=== PATIENT | female | born 1980 | race Caucasian/White ===

== ENCOUNTER 2017-06-10 10:04 | Emergency (ER) | payer MEDICAID, SELFPAY ==
[2017-06-10 10:05] VITALS: BP 164/110; PULSE 96; RESP 17; TEMP 36.7; O2SAT 100; BMI 43.9
--- NOTE | 2017-06-10 10:26 | RAD_ITS ---
STUDY: X-RAY CHEST REASON FOR EXAM: Female, 37 years old. Anxiety. Chest pain and shortness of breath. TECHNIQUE: Single AP portable view of the chest. COMPARISON: None. FINDINGS: EKG electrodes are seen. The lungs are clear and expanded. Scattered calcified granulomas. There is no demonstrated pleural abnormality. Normal size heart. Normal mediastinum and keshia. Normal visualized pulmonary arteries. Normal visualized aortic arch and descending thoracic aorta. Normal visualized thoracic spine. Normal visualized ribs, clavicles, and shoulders. There is no demonstrated abnormality of the visualized soft tissue structures of the upper abdomen. RAD/Chest 1 View (Portable) IMPRESSION: Normal x-ray examination of the chest. Electronically Signed: Siva Jacobs MD at 11:28 EST Tel [phone], Service support ,
--- NOTE | 2017-06-10 10:26 | EKG12_ITS ---
Test Reason : CP Blood Pressure : / mmHG Vent. Rate : 085 BPM Atrial Rate : 085 BPM P-R Int : 136 ms QRS Dur : 084 ms QT Int : 368 ms P-R-T Axes : 024 031 042 degrees QTc Int : 437 ms Normal sinus rhythm Normal ECG Confirmed by VIVI GARZA, TIMOTHY ([id number]), editor managing newspaper LILI ARRIAGA ([id number]) on 06/12/2017 10:14:55 AM Referred By: JAYME Confirmed By:TIMOTHY TRINIDAD MD
[2017-06-10] MEDS: Aspirin 81 MG TAB.CHEW 324 MG PO (10:44)
--- NOTE | 2017-06-10 10:45 | ED.VISSUMM ---
- ER Visit Summary Date of Service: 06/10/17 Chief Complaint: Chest pain for 4 days History of Present Illness: The patient is a 37 F history of cardiac disease or prior stress test or heart cath. No history of DVT or PE or recent risk factors. No travel, surgery or immobilization. It is not pleuritic in nature. No hemoptysis. She is not on control pills. No leg swelling. Patient states that she has had chest pain basically constant for the last 4 days since Thursday evening. It is not associated with exertion. She has had symptoms in the past that were associated with anxiety but states she took her Ativan and he gave her no relief. She also took Tums and I gave her no relief also. She denies fever or significant cough. She denies any calf pain. Physical Examination: Well-appearing young female. Vital signs are stable afebrile. Her pulse ox is 100% on room air. No signs of hypoxia. H EENT exam is unremarkable. Neck nontender no JVD. Lungs clear to auscultation bilaterally. Chest wall nontender. Heart regular rate and rhythm no murmur. Abdomen soft nontender. Normal bowel sounds. No peritoneal signs. She is moving all 4 extremities. Equal radial pulses. Equal food and beverage checker strength. Dorsi plantar flexion intact. Calves are nontender without edema. Neurologically she is awake and alert without any focal deficits. Test Results: Portable chest x-ray showed no acute abnormality. Normal cardiac silhouette. Read both by myself and the radiologist. I did go over the x-ray with the patient. EKG is a sinus rhythm a rate of 85 with no acute signs of CA or ischemia. CBC normal. BMP normal. Troponin normal. Emergency Department Course and Treatment: Patient with atypical chest pain will undergo cardiac workup. Clinically it does not appear to be cardiac nor a DVT or PE. Treatment Plan: exam the patient is doing well at 1404. In light that her chest pain has been constant for 4 days her troponin is negative I am comfortable with her being discharged home. Disposition: Discharge Impression: Atypical chest pain of uncertain etiology This note was generated with [employer] software. It may contain incorrect words, spelling, and punctuation that were not noted in review of the chart prior to signing ED Disposition - Plan for ED Patient: Chief Complaint: Chest Pain Referrals: Jose Luis Toledo DO [Primary Care Provider] -
--- NOTE | 2017-06-10 10:48 | ED.DCSUM_ITS ---
- ER Visit Summary Date of Service: 06/10/17 Chief Complaint: Chest pain for 4 days History of Present Illness: The patient is a 37 F history of cardiac disease or prior stress test or heart cath. No history of DVT or PE or recent risk factors. No travel, surgery or immobilization. It is not pleuritic in nature. No hemoptysis. She is not on control pills. No leg swelling. Patient states that she has had chest pain basically constant for the last 4 days since Thursday evening. It is not associated with exertion. She has had symptoms in the past that were associated with anxiety but states she took her Ativan and he gave her no relief. She also took Tums and I gave her no relief also. She denies fever or significant cough. She denies any calf pain. Physical Examination: Well-appearing young female. Vital signs are stable afebrile. Her pulse ox is 100% on room air. No signs of hypoxia. H EENT exam is unremarkable. Neck nontender no JVD. Lungs clear to auscultation bilaterally. Chest wall nontender. Heart regular rate and rhythm no murmur. Abdomen soft nontender. Normal bowel sounds. No peritoneal signs. She is moving all 4 extremities. Equal radial pulses. Equal brand analyst strength. Dorsi plantar flexion intact. Calves are nontender without edema. Neurologically she is awake and alert without any focal deficits. Test Results: Portable chest x-ray showed no acute abnormality. Normal cardiac silhouette. Read both by myself and the radiologist. I did go over the x-ray with the patient. EKG is a sinus rhythm a rate of 85 with no acute signs of DE or ischemia. CBC normal. BMP normal. Troponin normal. Emergency Department Course and Treatment: Patient with atypical chest pain will undergo cardiac workup. Clinically it does not appear to be cardiac nor a DVT or PE. Treatment Plan: exam the patient is doing well at 1404. In light that her chest pain has been constant for 4 days her troponin is negative I am comfortable with her being discharged home. Disposition: Discharge Impression: Atypical chest pain of uncertain etiology This note was generated with [employer] software. It may contain incorrect words, spelling, and punctuation that were not noted in review of the chart prior to signing ED Disposition - Plan for ED Patient: Chief Complaint: Chest Pain Referrals: Jose Luis Toledo DO [Primary Care Provider] -
[2017-06-10 11:07] VITALS: BP 115/58; PULSE 73; RESP 17; O2SAT 99
[2017-06-10 11:15] LABS: Absolute Lymphocyte Count 2.63 X10^3/ul (0.83-4.51); Absolute Neutrophil Count 6.4 X10^3/uL (2.0-7.7); Basophil# 0.05 X10^3/uL; Basophil% 0.5 % (0-1); Eosinophil# 0.13 X10^3/uL; Eosinophils% 1.3 % (0-5); Hematocrit 40.2 % (37-47); Hemoglobin 13.3 g/dl (12.0-15.0); Lymphocyte # 2.63 X10^3/ul (4.0); Lymphocyte % 27.1 % (19-41); Mean Corp Hgb Conc 33.1 g/gl (32-36); Mean Corpuscular Hgb 30.2 pg (27.0-32.0); Mean Corpuscular Volume 91.4 fL (81-99); Mean Platelet Vol. 9.8 fl (6.2-12.0); Monocyte# 0.45 X10^3/uL; Monocyte% 4.6 % (0-10); Neutrophil % 66.2 % (47-70); POSITIVE COUNT NO; POSITIVE DIFFERENTIAL NO; POSITIVE MORPHOLOGY NO; Platelet Count 238 K/mm3 (150-450); RBC Distribution Width CV 13.5 % (11.6-14.6); RBC Distribution Width SD 44.5 fl (35.1-43.9); White Blood Count 9.7 K/mm3 (4.4-11.0)
[2017-06-10 12:13] LABS: Anion Gap 12 (5-15); BUN 12 mg/dL (7-18); BUN/Creat Ratio 16.6 RATIO (10-20); Calcium,Total 8.5 mg/dL (8.5-10.1); Chloride 108 mmol/L (98-107); Creatinine, Serum 0.72 mg/dL (0.55-1.02); EST Glomerular Filtration Rate 96 mL/min (>60); Est Glom Filt Rate - Afr Amer 116 mL/min (>60); Estimated Creatinine Clearance 76.84 ml/min; Glucose 88 mg/dL (74-106); Potassium 3.8 mmol/L (3.5-5.1); Sodium Level 142 mmol/L (136-145)
[2017-06-10 13:00] VITALS: BP 128/76; PULSE 71; RESP 15; O2SAT 98
[2017-06-10 14:00] VITALS: BP 127/74; PULSE 81; RESP 16; O2SAT 97
--- NOTE | 2017-06-10 14:06 | ED.DEP ---
ED Disposition - Plan for ED Patient: Disposition: Home or Assisted Living Chief Complaint: Chest Pain Instructions: ED Chest Pain Atypical Unkn Cause Referrals: Jose Luis Toledo DO [Primary Care Provider] - 3-5 Days Additional Instructions: Call and follow-up your primary care physician. Return to ER if feeling worse. All your tests today including EKG, x-ray and labs were all normal.
== END 2017-06-10 14:19 | disposition home or self-care (01) ==
PROVIDERS: Emergency Provider Emergency Medicine; Family Provider Student in an Organized Health Care Education/Training Program; PCP Student in an Organized Health Care Education/Training Program
DX: R07.89 Other chest pain (principal); R06.00 Dyspnea, unspecified; F41.9 Anxiety disorder, unspecified; E11.9 Type 2 diabetes mellitus without complications; E03.9 Hypothyroidism, unspecified; Z86.79 Personal history of other diseases of the circulatory system; Z79.899 Other long term (current) drug therapy
CPT/HCPCS: 71045; 80048; 84484; 85025; 93005; 99285; A4216

== ENCOUNTER 2017-07-16 12:05 | Emergency (ER) | payer MEDICAID, SELFPAY ==
[2017-07-16 12:06] VITALS: BP 154/92; PULSE 90; RESP 20; TEMP 36.4; O2SAT 98; BMI 43.0
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
[2017-07-16] MEDS: HYDROcodone Bitartrate/Apap 5/325 Tablet PO (13:34)
[2017-07-16 13:38] VITALS: PULSE 97; RESP 17; O2SAT 98
== END 2017-07-16 14:06 | disposition home or self-care (01) ==
PROVIDERS: Emergency Provider Emergency Medicine; Family Provider Student in an Organized Health Care Education/Training Program; PCP Student in an Organized Health Care Education/Training Program
DX: T23.001A Burn of unspecified degree of right hand, unspecified site, initial encounter (principal); X08.8XXA Exposure to other specified smoke, fire and flames, initial encounter; Y93.9 Activity, unspecified; Y92.9 Unspecified place or not applicable; G43.909 Migraine, unspecified, not intractable, without status migrainosus; Z79.899 Other long term (current) drug therapy
CPT/HCPCS: 90715; 99283

== ENCOUNTER → 2017-07-27 16:35 | Outpatient (CLI) | payer MEDICAID, SELFPAY ==
--- NOTE | 2017-07-27 16:46 | CT_ITS ---
STUDY: CTA NECK WITH CONTRAST REASON FOR EXAM: Female, 37 years old. Follow-up of anterior communicating artery ectasia. RADIATION DOSAGE (If Supplied By Facility): CTDIvol = ( 28.68 ) mGy, DLP = ( 1416.62 ) mGycm TECHNIQUE: CT angiography with multi-detector data acquisition was performed from the aortic arch to the skull base following intravenous administration of 100 ml of Isovue 370 contrast. MIP images were reconstructed from the axial data set. Post-processing of the angiographic images was performed, with multiplanar reformation and 3D reconstruction. Individualized dose optimization techniques were used for this CT. COMPARISON: None. FINDINGS: AORTIC ARCH: Normal visualized aortic arch. Normal origins of the brachiocephalic, left common carotid, and left subclavian arteries. RIGHT CAROTID ARTERIES: Normal right common carotid artery (CCA). Normal right common carotid bulb. Normal origin of the right internal carotid (ICA) artery without a hemodynamically significant stenosis. Normal visualized cervical portion of the right internal carotid artery. Normal origin of the right external carotid artery (ECA). LEFT CAROTID ARTERIES: Normal left common carotid artery (CCA). Normal left common carotid bulb. Normal origin of the left internal carotid (ICA) artery without a hemodynamically significant stenosis. Normal visualized cervical portion of the left internal carotid artery. Normal origin of the left external carotid artery (ECA). VERTEBRAL ARTERIES: Normal bilateral vertebral arteries. CTA OF THE BRAIN FINDINGS: Normal bilateral petrous carotid arteries. Normal right cavernous carotid artery with a normal supraclinoid bifurcation. Normal left cavernous carotid artery with a normal supraclinoid bifurcation. Normal right A1 segment of the anterior cerebral artery. Normal left A1 segment of the anterior cerebral artery. 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 Normal bilateral A2 segments of the anterior cerebral arteries. Normal right M1 and M2 segments of the middle cerebral arteries, with a normal M1 bifurcation. Normal left M1 and M2 segments of the middle cerebral arteries, with a normal M1 bifurcation. Normal right posterior communicating artery (PCOM). Normal left posterior communicating artery (PCOM). Normal bilateral vertebral arteries. Normal basilar artery with a normal basilar bifurcation. The visualized bilateral superior cerebellar (SCA) arteries are normal. Normal bilateral P1, P2 and visualized P3 segments of the posterior cerebral arteries. There is no evidence of acute hemorrhage. There is no demonstrated enhancement of the visualized brain. CT/CTA Neck W/WO Contrast IMPRESSION: There is no evidence of hemorrhage. There is no abnormal enhancement. There is stable appearance of mild fullness and duplication of the anterior communicating artery. Electronically Signed: Hanna South MD at 7:14 EDT Tel , Service support ,
--- NOTE | 2017-07-27 16:46 | CT_ITS ---
STUDY: CTA OF THE BRAIN REASON FOR EXAM: Female, 37 years old. Aneurysm for follow-up. History of headaches. RADIATION DOSAGE (If Supplied By Facility): CTDIvol = ( 28.68 ) mGy, DLP = ( 1416.62 ) mGycm TECHNIQUE: CT angiography was performed with a multi-detector CT scanner. Data acquisition was obtained from the skull base through the vertex following intravenous administration of 100 ml of Isovue-370. MIP images were reconstructed from the axial data set. Post-processing of the angiographic images was performed, with multiplanar reformation and 3D reconstruction. Individualized dose optimization techniques were used for this CT. COMPARISON: Images of study from December 10, 2016 and limited images and report of study from May 04, 2016. FINDINGS: Normal bilateral petrous carotid arteries. Normal right cavernous carotid artery with a normal supraclinoid bifurcation. Normal left cavernous carotid artery with a normal supraclinoid bifurcation. Normal right A1 segments of the anterior cerebral artery. Normal left A1 segments of the anterior cerebral artery. Normal intact anterior communicating artery (ACOM). There is no aneurysm involving the anterior communicating artery. Normal bilateral A2 segments of the anterior cerebral arteries. Normal right M1 and M2 segments of the middle cerebral arteries, with a normal M1 bifurcation. Normal left M1 and M2 segments of the middle cerebral arteries, with a normal M1 bifurcation. Normal right posterior communicating artery (PCOM). Normal left posterior communicating artery (PCOM). Normal bilateral vertebral arteries. Vertebral arteries are codominant. Normal basilar artery with a normal basilar bifurcation. The visualized bilateral superior cerebellar (SCA) arteries are normal. Normal bilateral P1, P2 and visualized P3 segments of the posterior cerebral arteries. There is no demonstrated aneurysm of the [place] of [place]. There is no demonstrated abnormality of the visualized brain. CT/CTA Head W/WO Contrast IMPRESSION: Normal ruby of [place] without a demonstrated aneurysm or hemodynamically significant stenosis. No aneurysm involving the anterior communicating artery. Electronically Signed: Vincent Chapa MD at 8:00 EDT , Service support ,
== END ==
PROVIDERS: Family Provider Student in an Organized Health Care Education/Training Program; PCP Student in an Organized Health Care Education/Training Program; Visit Provider Psychiatry & Neurology Neurology
DX: I72.8 Aneurysm of other specified arteries (principal)
CPT/HCPCS: 70496; 70498; Q9967

== ENCOUNTER → 2018-04-12 11:36 | Outpatient (CLI) | payer MEDICAID, SELFPAY ==
--- NOTE | 2018-04-12 11:42 | BI_ITS ---
MAMMOGRAPHY - BILATERAL SCREENING REASON FOR EXAM: Female, 38 years old. Routine annual screening examination. PERTINENT HISTORY: Mother with breast cancer. TECHNIQUE: Digital bilateral breast maih (3D mammographic acquisition) in the CC and MLO projections. 2-D mediolateral oblique (MLO) and craniocaudad (CC) views of both breasts were obtained. CAD: Full Field Digital Mammography with Computer Added Detection was performed. COMPARISON: Comparison is made with prior study dated April 04, 2013 and June 03, 2011. FINDINGS: Breast Composition: There are scattered areas of fibroglandular density. There are no dominant masses or suspicious calcifications. Stable asymmetry of breast tissue or more breast tissue is seen in the upper quadrant of the left breast as compared to the right side. No other significant abnormalities are identified. There has been no significant change since the prior study. BI/SCREENING MAMM (CAD), BILAT IMPRESSION: Stable bilateral screening mammogram. Yearly follow-up mammogram recommended. (A) ASSESSMENT CATEGORY: BIRADS Category 2: Benign. A letter regarding these results will be sent to the patient by the facility within 30 days. Approximately 10% of breast cancers are not detected by mammography. A normal mammogram should not delay biopsy of a clinically suspicious abnormality. [id number] Electronically Signed: Siva Jacobs MD at 13:57 EST Tel [phone], Service support ,
--- OUTSIDE RECORDS SUMMARY | 2018-07-15 01:51 | XMS RPT_ITS ---
:1980 Author Organization [place] Care Team Providers Name Role Phone JOSE LUIS ROMAN Attending Unavailable JOSE LUIS ROMAN Referring Unavailable JOSE LUIS ROMAN Referring Unavailable JOSE LUIS ROMAN Attending Unavailable JOSE LUIS ROMAN Referring Unavailable JOSE LUIS ROMAN Referring Unavailable JOSE LUIS ROMAN Attending Unavailable JOSE LUIS ROMAN Attending Unavailable JOSE LUIS ROMAN Referring Unavailable SONJA, JANIS L ([facility]) Attending Unavailable JOSE LUIS ROMAN L Referring Unavailable SONJA, JANIS L ([facility]) Attending Unavailable SONJA JANIS L ([facility]) Referring Unavailable SONJA, JANIS L ([facility]) Referring Unavailable JOSE LUIS ROMAN L Attending Unavailable JOSE LUIS ROMAN Referring Unavailable JOSE LUIS ROMAN Attending Unavailable JOSE LUIS ROMAN Referring Unavailable CATHLEEN MEZA Attending Unavailable REFERRED, SELF Referring Unavailable JOSE LUIS ROMAN Primary Care Unavailable BILL MARIA Attending Unavailable BILL MARIA Referring Unavailable JOSE LUIS ROMAN Primary Care Unavailable JOAN GUSMAN Attending Unavailable Jose Luis Roman Primary Care Unavailable JOAN GUSMAN Consulting Unavailable Jose Luis Roman Primary Care Unavailable Alfredo Matias Attending Unavailable Rola Cuellar Attending Unavailable Rola Cuellar Referring Unavailable Jose Luis Roman Primary Care Unavailable Jose Luis Roman Primary Care Unavailable Carola Ocasio Attending Unavailable PROBLEMS PROBLEMS DATE TYPE CONDITION / CODE ATTENDING STATUS SOURCE 04/28/2018 Active Other specified NA Active [facility] immunological [place] findings in serum / Repository R76.8(ICD-10) 10/21/2016 Active Cerebral aneurysm, NA Active [facility] nonruptured / [facility] Main I67.1(ICD-10) [place] Repository 03/24/2018 Active Dizziness and NA Active [facility] giddiness / [facility] Main R42(ICD-10) [place] Repository 03/24/2018 Active Other symptoms and NA Active [facility] signs involving the [facility] Main musculoskeletal [place] system / Repository R29.898(ICD-10) 03/24/2018 Active Pain in unspecified NA Active [facility] joint / [facility] M25.50(ICD-10) [place] Repository 03/24/2018 Active Vitamin D deficiency, NA Active [facility] unspecified / [facility] E55.9(ICD-10) [place] Repository 12/24/2017 Active Nontoxic single NA Active [facility] thyroid nodule / [facility] E04.1(ICD-10) [place] Repository 12/22/2017 Active Pain in left foot / NA Active [facility] M79.672(ICD-10) [facility] Main [place] Repository 09/15/2017 Active Lumbago with NA Active [facility] sciatica, left side / Clinic Main M54.42(ICD-10) [place] Repository 09/15/2017 Active Lumbago with NA Active [facility] sciatica, right side Clinic Main / M54.41(ICD-10) [place] Repository 10/21/2016 Active Myalgia / NA Active [facility] M79.1(ICD-10) Clinic Main [place] Repository 09/08/2017 Active Hypothyroidism, NA Active [facility] unspecified / [facility] E03.9(ICD-10) [place] Repository 09/08/2017 Active Shortness of breath / NA Active [facility] R06.02(ICD-10) [facility] Main [place] Repository 07/16/2017 Unknown R52 - Pain, Jwayyed, Active [facility] unspecified / [facility] R52(ICD-10) Hospital Repository 06/25/2017 Unknown R07.9 - Chest pain, MatiasAlfredo Active [facility] unspecified / [facility] R07.9(ICD-10) Hospital Repository PROCEDURES PROCEDURES No Procedure Records FoundRESULTS RESULTS C-REACTIVE PROTEIN Collected: 04/28/2018 Status: F Source: [place] 9:31 AM [facility] REPOSITORY TYPE CODE TESTS RESULT OUT OF REFERENCE UNITS RANGE LAB CRP <0.9 mg/dL C-Reactive 0.7 Protein Performed By: #### CRP, WSR, ENAID, ANAIFS #### [facility] [address] [address] SED RATE WESTERGREN Collected: 04/28/2018 Status: F Source: [place] 9:31 AM [facility] REPOSITORY TYPE CODE TESTS RESULT OUT OF REFERENCE UNITS RANGE LAB WSR 0-20 mm/hr Sed Rate Westergren 18 Performed By: #### CRP, WSR, ENAID, ANAIFS #### [facility] [address] [address] OCTAVIANO ANTIBODY PANEL Collected: 04/28/2018 Status: F Source: [place] 9:31 AM [facility] REPOSITORY TYPE CODE TESTS RESULT OUT OF REFERENCE UNITS RANGE LAB SMIB <1.0 AI Sm Antibody <0.2 Result Comment: NEGATIVE Negative: <1.0 AI Positive: >0.9 AI LAB RNPIB <1.0 AI WOOD HEEL FLAP INSERTER Antibody <0.2 Result Comment: NEGATIVE Negative: <1.0 AI Positive: >0.9 AI LAB SSAIB <1.0 AI SSA Antibody <0.2 Result Comment: NEGATIVE Negative: <1.0 AI Positive: >0.9 AI LAB SSBIB <1.0 AI SSB Antibody <0.2 Result Comment: NEGATIVE Negative: <1.0 AI Positive: >0.9 AI LAB CENTIB <1.0 AI Centromere <0.2 Result Comment: NEGATIVE Negative: <1.0 AI Positive: >0.9 AI LAB SCLIB <1.0 AI Scleroderma IgG Ab <0.2 Result Comment: NEGATIVE Negative: <1.0 AI Positive: >0.9 AI LAB JO1IB <1.0 AI TEMI 1 Antibody <0.2 Result Comment: NEGATIVE Negative: <1.0 AI Positive: >0.9 AI LAB RRNPIB <1.0 AI Ribosomal WOOD HEEL FLAP INSERTER <0.2 Result Comment: NEGATIVE Negative: <1.0 AI Positive: >0.9 AI LAB CHRMIB <1.0 AI Chromatin Antibody <0.2 Result Comment: NEGATIVE Negative: <1.0 AI Positive: >0.9 AI Performed By: #### CRP, WSR, ENAID, ANAIFS #### [facility] [address], [place] [address] ZACHARIAH BY IFA Collected: 04/28/2018 Status: F Source: [place] 9:31 AM [facility] REPOSITORY TYPE CODE TESTS RESULT OUT OF REFERENCE UNITS RANGE LAB ANASC Negative ZACHARIAH Negative Result Comment: Normal range : negative at <1:80 serum dilution. Approximately 6% of patients with connective tissue diseases with low positive EIA values are negative by IFA. Recommend follow-up with specific antinuclear antibodies if clinically indicated. LAB DOMENIC Negative Negative ZACHARIAH Titer Result Comment: Normal range : negative at <1:80 serum dilution. LAB ANAP ZACHARIAH Not applicable Pattern for negative result. Performed By: #### CRP, WSR, ENAID, ANAIFS #### [facility] [address], [place] [address] PROGRESS Observed: 04/17/2018 Status: COMPLETED Source: [place] 9:48 AM [facility] REPOSITORY HNO ID: [id number] Author: Jose Luis Roman Service: (none) Author Type: Physician Type: Progress Notes Filed: 04/17/2018 9:53 AM Note Text: CC: Sangeetha Tran is a 38 year old female who presents to the office for follow up. HPI: Seen in office 1 month ago, at that time: Headaches, increased in severity, frequency, sometimes associated with dizziness/LH, started around time of birthday 2 months ago when she was in [place], thinks she was exposed to a new chemical or food. Was having episodes of symptoms while in [place], thought she was having a stroke- was having word finding difficulty, weakness in both arms, felt like she was going to pass out, LH symptoms coming and going. They did labs, told her she was dehydrated and gave her IVF and sent her home. Since then she has been Having these symptoms and is concerned, crying in office today, hx of cerebral aneurysm- last checked 11/2016 with CTA ? Also has been having increase of fatigue, joint stiffness in hands, especially knuckle areas in the AM, sometimes better by afternoon. Currently She had labs which showed + ZACHARIAH at 1:80 speckled with normal inflammation markers, hx of Raynaud's phenomenon as well. Never diagnosed with lupus prior Was recommended to have repeat labs drawn in 1 month to Recheck ZACHARIAH, she has made appt with [facility] but several months waiting time line. Still having neurologic symptoms as above, hasn't seen Neurologist Dr. Cuellar yet, CTA brain not approved by insurance again. Still having some eye symptoms in left eye where it feels blurred, some redness of outer conjunctiva, no drainage, symptoms for 1- 2 weeks, hasn't seen eye doctor yet PAST MEDICAL HISTORY Diagnosis Date - Anxiety - Cerebral aneurysm - Complicated migraine - Endometriosis 75% improvement in abdominal pain post lap surgery - Hypothyroidism - IBS (irritable bowel syndrome) - Insulin resistance - Low HDL (under 40) - Low serum progesterone worsening symptoms with progesterone rx - Lumbar disc disease 05/13/2010 - Migraines - CADENCE (obstructive sleep apnea) Last polysomnogram in 2012, last use in 2012 - Personal history of kidney stones - Polycystic ovary syndrome 06/19/2010 - Protein S deficiency (HCC) 2007 clotting disorder - PUD (peptic ulcer disease) 2009 treated medically, repeat EGD neg in 2014 - Renal calculi 2009 associated to low citric acid, h/o hypercalciuria - Rosacea 06/19/2010 - Vitamin D deficiency PAST SURGICAL HISTORY Procedure Laterality Date - APPENDECTOMY - COLONOSCOP W/ OR W/O BRSH SPEC 08/16/14 Colonoscopy-repeat at 50 - EGD W/O OR W/BRUSH/WASH 08/16/14 EGD - EXPLOR/REMV STONE,RENAL PELVIS 2008 multiple - LAPAROSCOPIC CHOLEYCYSTECTOMY 2003 Cholecystectomy, lap - PAST SURGICAL HISTORY OF Laparoscopy for endometriosis - PAST SURGICAL HISTORY OF dANDc - PAST SURGICAL HISTORY OF wisdom teeth Current Outpatient Prescriptions: albuterol HFA (VENTOLIN HFA) 90 mcg/actuation inhaler Inhale 2 Puffs as instructed every 6 hours as needed for Wheezing/Shortness of Breath. diclofenac, EC, (VOLTAREN) 75 mg EC tablet Take 1 tablet by mouth twice daily. For back pain/arthritis, For pain/inflammation. Take with food. ibuprofen (MOTRIN) 800 mg tablet Take 1 tablet by mouth every 6 hours as needed for Pain. Take with food. levothyroxine (SYNTHROID) 88 mcg tablet Take 1 tablet by mouth once daily. and skip 1 day weekly. liraglutide (VICTOZA) 0.6 mg/ 0.1 ml subcutaneous pen injector Inject 1.8 mg subcutaneously once daily. magnesium oxide (MAG-OX) 400 mg (241.3 mg magnesium) tablet take 1 tablet by mouth once daily ondansetron orally disintegrating (ZOFRAN ODT) 4 mg disintegrating tablet Take 1 tablet by mouth every 6 hours as needed for Nausea/Vomiting. PEN NEEDLE 31 gauge x 5/16 ndle USE DIRECTED ONCE DAILY potassium chloride (K-TAB) 10 mEq tablet take 1 tablet by mouth once daily WITH BREAKFAST traMADol (ULTRAM) 50 mg tablet Take 1 tablet by mouth at bedtime as needed for Pain for up to 30 days. For severe low back pain triamcinolone acetonide (KENALOG) 0.1 % cream Apply 1 application to affected area three times daily. For eczema left knee, Apply sparingly to area for rash/itching. vitamin b complex (B COMPLETE) Tab Take 1 tablet by mouth once daily. VITAMIN B-2 100 mg tab take 1 tablet by mouth once daily VITAMIN D-3 2,000 unit cap take 1 capsule by mouth once daily ofloxacin (OCUFLOX) 0.3 % ophthalmic solution Use 2 Drops in the left eye four times daily for 7 days. No current facility-administered medications for this visit. 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 nares without drainage, pharynx without erythema, exudate, lesions, or drainage. Uvula midline. Neck: No LAD, no thyromegaly, no meningismus. CV: RRR, no murmur Lungs: CTA b/l, no wheezing Skin: No rashes, lesions, or wounds on exposed skin. Neuro: increased sensitivity to sharp touch and cold on left side of upper and lower arm and face vs. Right side, mild weakness of left UE vs. Right UE, normal strength and balance of legs No edema, normal pulses ASSESSMENT/PLAN: 1. Dizziness - ICD9: 780.4, ICD10: R42 (primary diagnosis) - needs to follow up with Neurologist for further testing/diagnosis, hx of cerebral aneurysm, she is going to make this appt 2. ZACHARIAH positive - ICD9: 795.79, ICD10: R76.8 - unsure if false positive or related to autoimmune cause, recheck labs and f/u with [facility] to determine - ANTI OCTAVIANO ID - ZACHARIAH BY IFA SCREEN - SED RATE WESTERGREN - C-REACTIVE PROTEIN (CRP) 3. Acute conjunctivitis of left eye, unspecified acute conjunctivitis type - ICD9: 372.00, ICD10: H10.32 - see medication orders - if not improved, then told needs to follow up with [facility] for dilated eye examination - course and contagiousness issues discussed, including hand washing. - Instructed to call if high fever, development of periorbital redness or swelling, eye pain, visual changes, concerns or if symptoms persist. - OFLOXACIN 0.3 % EYE DROPS 4. Cerebral aneurysm - ICD9: 437.3, ICD10: I67.1 - see above, f/u with Neurologist for further recheck 5. Multiple joint pain - ICD9: 719.49, ICD10: M25.50 - see above Jose Luis Roman DO Return if no improvement. Follow up with Jose Luis Roman DO. Discussed risks, benefits, alternatives, and potential side effects of medications. Patient/Guardian expressed understanding and agreed with the plan. See patient instructions. Jose Luis Roman DO [address] [place] [address] GETACHEWOV Observed: 04/17/2018 Status: COMPLETED Source: [place] 8:00 AM [facility] REPOSITORY Office Visit (FAMPWS) SANGEETHA TRAN ([id number]) 1980 F Date Time Provider Department 04/17/18 8:00 AM [facility] During your visit today, we recorded the following information about you: Pulse Respiration Blood pressure Weight 72/minute 14/minute 112/70 102.1 kg Jose Luis Roman DO 04/17/2018 9:53 AM Signed CC: Sangeetha Tran is a 38 year old female who presents to the office for follow up. HPI: Seen in office 1 month ago, at that time: Headaches, increased in severity, frequency, sometimes associated with dizziness/LH, started around time of birthday 2 months ago when she was in [place], thinks she was exposed to a new chemical or food. Was having episodes of symptoms while in [place], thought she was having a stroke- was having word finding difficulty, weakness in both arms, felt like she was going to pass out, LH symptoms coming and going. They did labs, told her she was dehydrated and gave her IVF and sent her home. Since then she has been Having these symptoms and is concerned, crying in office today, hx of cerebral aneurysm- last checked 11/2016 with CTA ? Also has been having increase of fatigue, joint stiffness in hands, especially knuckle areas in the AM, sometimes better by afternoon. Currently She had labs which showed + ZACHARIAH at 1:80 speckled with normal inflammation markers, hx of Raynaud's phenomenon as well. Never diagnosed with lupus prior Was recommended to have repeat labs drawn in 1 month to Recheck ZACHARIAH, she has made appt with [facility] but several months waiting time line. Still having neurologic symptoms as above, hasn't seen Neurologist Dr. Cuellar yet, CTA brain not approved by insurance again. Still having some eye symptoms in left eye where it feels blurred, some redness of outer conjunctiva, no drainage, symptoms for 1-2 weeks, hasn't seen eye doctor yet PAST MEDICAL HISTORY Diagnosis Date - Anxiety - Cerebral aneurysm - Complicated migraine - Endometriosis 75% improvement in abdominal pain post lap surgery - Hypothyroidism - IBS (irritable bowel syndrome) - Insulin resistance - Low HDL (under 40) - Low serum progesterone worsening symptoms with progesterone rx - Lumbar disc disease 05/13/2010 - Migraines - CADENCE (obstructive sleep apnea) Last polysomnogram in 2012, last use in 2012 - Personal history of kidney stones - Polycystic ovary syndrome 06/19/2010 - Protein S deficiency (HCC) 2007 clotting disorder - PUD (peptic ulcer disease) 2009 treated medically, repeat EGD neg in 2014 - Renal calculi 2008 associated to low citric acid, h/o hypercalciuria - Rosacea 06/19/2010 - Vitamin D deficiency PAST SURGICAL HISTORY Procedure Laterality Date - APPENDECTOMY - COLONOSCOP W/ OR W/O BRSH SPEC 08/16/14 Colonoscopy-repeat at 50 - EGD W/O OR W/BRUSH/WASH 08/16/14 EGD - EXPLOR/REMV STONE,RENAL PELVIS 2008 multiple - LAPAROSCOPIC CHOLEYCYSTECTOMY 2003 Cholecystectomy, lap - PAST SURGICAL HISTORY OF Laparoscopy for endometriosis - PAST SURGICAL HISTORY OF dANDc - PAST SURGICAL HISTORY OF wisdom teeth Current Outpatient Prescriptions: albuterol HFA (VENTOLIN HFA) 90 mcg/actuation inhaler Inhale 2 Puffs as instructed every 6 hours as needed for Wheezing/Shortness of Breath. diclofenac, EC, (VOLTAREN) 75 mg EC tablet Take 1 tablet by mouth twice daily. For back pain/arthritis, For pain/inflammation. Take with food. ibuprofen (MOTRIN) 800 mg tablet Take 1 tablet by mouth every 6 hours as needed for Pain. Take with food. levothyroxine (SYNTHROID) 88 mcg tablet Take 1 tablet by mouth once daily. and skip 1 day weekly. liraglutide (VICTOZA) 0.6 mg/ 0.1 ml subcutaneous pen injector Inject 1.8 mg subcutaneously once daily. magnesium oxide (MAG-OX) 400 mg (241.3 mg magnesium) tablet take 1 tablet by mouth once daily ondansetron orally disintegrating (ZOFRAN ODT) 4 mg disintegrating tablet Take 1 tablet by mouth every 6 hours as needed for Nausea/Vomiting. PEN NEEDLE 31 gauge x 5/16 ndle USE DIRECTED ONCE DAILY potassium chloride (K-TAB) 10 mEq tablet take 1 tablet by mouth once daily WITH BREAKFAST traMADol (ULTRAM) 50 mg tablet Take 1 tablet by mouth at bedtime as needed for Pain for up to 30 days. For severe low back pain triamcinolone acetonide (KENALOG) 0.1 % cream Apply 1 application to affected area three times daily. For eczema left knee, Apply sparingly to area for rash/itching. vitamin b complex (B COMPLETE) Tab Take 1 tablet by mouth once daily. VITAMIN B-2 100 mg tab take 1 tablet by mouth once daily VITAMIN D-3 2,000 unit cap take 1 capsule by mouth once daily ofloxacin (OCUFLOX) 0.3 % ophthalmic solution Use 2 Drops in the left eye four times daily for 7 days. No current facility-administered medications for this visit. 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 nares without drainage, pharynx without erythema, exudate, lesions, or drainage. Uvula midline. Neck: No LAD, no thyromegaly, no meningismus. CV: RRR, no murmur Lungs: CTA b/l, no wheezing Skin: No rashes, lesions, or wounds on exposed skin. Neuro: increased sensitivity to sharp touch and cold on left side of upper and lower arm and face vs. Right side, mild weakness of left UE vs. Right UE, normal strength and balance of legs No edema, normal pulses ASSESSMENT/PLAN: 1. Dizziness - ICD9: 780.4, ICD10: R42 (primary diagnosis) - needs to follow up with Neurologist for further testing/diagnosis, hx of cerebral aneurysm, she is going to make this appt 2. ZACHARIAH positive - ICD9: 795.79, ICD10: R76.8 - unsure if false positive or related to autoimmune cause, recheck labs and f/u with [facility] to determine - ANTI OCTAVIANO ID - ZACHARIAH BY IFA SCREEN - SED RATE WESTERGREN - C-REACTIVE PROTEIN (CRP) 3. Acute conjunctivitis of left eye, unspecified acute conjunctivitis type - ICD9: 372.00, ICD10: H10.32 - see medication orders - if not improved, then told needs to follow up with [facility] for dilated eye examination - course and contagiousness issues discussed, including hand washing. - Instructed to call if high fever, development of periorbital redness or swelling, eye pain, visual changes, concerns or if symptoms persist. - OFLOXACIN 0.3 % EYE DROPS 4. Cerebral aneurysm - ICD9: 437.3, ICD10: I67.1 - see above, f/u with Neurologist for further recheck 5. Multiple joint pain - ICD9: 719.49, ICD10: M25.50 - see above Jose Luis Roman DO Return if no improvement. Follow up with Jose Luis Roman DO. Discussed risks, benefits, alternatives, and potential side effects of medications. Patient/Guardian expressed understanding and agreed with the plan. See patient instructions. Jose Luis Roman DO [address] [place] [address] Referring Provider: SELF [[id number]] Allergies As of Date: 04/17/2018 Noted Allergy Reaction ALEVE (NAPROXEN SODIUM) 04/28/2007 11 - Vomiting Comments: Ibuprofen without problems Vomiting with Aleve with one time use METFORMIN 01/23/2017 8 - GI Upset PENICILLINS 04/28/2007 7 - Swelling Date Reviewed: 04/17/2018 Reviewed by: Rogers Munoz LPN - Fully Assessed Reason for Visit: Recheck [92] Cmt: follow up to review labs and mammogram Primary Visit Diagnosis:Dizziness [R42] Other Visit Diagnoses:ZACHARIAH positive [R76.8] Acute conjunctivitis of left eye, unspecified acute conjunctivitis type [H10.32] Cerebral aneurysm [I67.1] Multiple joint pain [M25.50] Order(s):ANTI OCTAVIANO ID [SQENAID] Order #: [id number] FUTURE ZACHARIAH BY IFA SCREEN [SQANAIFS] Order #: [id number] FUTURE SED RATE WESTERGREN [SQWSR] Order #: [id number] FUTURE C-REACTIVE PROTEIN (CRP) [SQCRP] Order #: [id number] FUTURE ofloxacin (OCUFLOX) 0.3 % ophthalmic solutionUse 2 Drops in the left eye four times daily for 7 days.Disp: 1 BottleRfl: 0 Prescriptions as of 04/17/2018 Sig: ALBUTEROL SULFATE HFA 90 MCG/* Inhale 2 Puffs as instructed * DICLOFENAC SODIUM 75 MG TABLE* Take 1 tablet by mouth twice * IBUPROFEN 800 MG TABLET Take 1 tablet by mouth every * LEVOTHYROXINE 88 MCG TABLET Take 1 tablet by mouth once d* LIRAGLUTIDE 0.6 MG/0.1 ML (18* Inject 1.8 mg subcutaneously * MAGNESIUM OXIDE 400 MG (241.3* take 1 tablet by mouth once d* ONDANSETRON 4 MG DISINTEGRATI* Take 1 tablet by mouth every * PEN NEEDLE 31 GAUGE X 5/16 USE DIRECTED ONCE DAILY POTASSIUM CHLORIDE ER 10 MEQ * take 1 tablet by mouth once d* TRAMADOL 50 MG TABLET Take 1 tablet by mouth at bed* TRIAMCINOLONE ACETONIDE 0.1 %* Apply 1 application to affect* * VITAMIN B COMPLEX TABLET Take 1 tablet by mouth once d* VITAMIN B-2 100 MG TABLET take 1 tablet by mouth once d* VITAMIN D3 2,000 UNIT CAPSULE take 1 capsule by mouth once * OFLOXACIN 0.3 % EYE DROPS Use 2 Drops in the left eye f* Problem List As Of Date 04/17/2018 Noted Resolved Renal calculi [N20.0] INVALID FOR*03/10/2017 Hypothyroidism [E03.9] INVALID FOR* Lumbar disc disease [M51.9] INVALID FOR* Polycystic ovary syndrome [E28.2] INVALID FOR* Rosacea [L71.9] INVALID FOR* Dysmetabolic syndrome [E88.81] INVALID FOR* Abdominal pain, unspecified site [R10.9] INVALID FOR* IBS (irritable bowel syndrome) [K58.9] INVALID FOR* PUD (peptic ulcer disease) [K27.9] INVALID FOR* Bleeding disorder (HCC) [D69.9] INVALID FOR* CADENCE (obstructive sleep apnea) [G47.33] INVALID FOR* Kidney stone [N20.0] INVALID FOR*03/10/2017 Right flank pain [R10.9] INVALID FOR*03/10/2017 Obesity (BMI 30-39.9) [E66.9] INVALID FOR*11/18/2017 Atypical migraine [G43.009] INVALID FOR* Cerebral aneurysm [I67.1] INVALID FOR* Fatigue [R53.83] INVALID FOR* Mouth sores [K13.79] INVALID FOR* Tick bite [W57.XXXA] INVALID FOR*03/10/2017 Myalgia [M79.10] INVALID FOR* Anxiety disorder [F41.9] INVALID FOR* Oral mucosal lesion [K13.70] INVALID FOR* Fibromyalgia [M79.7] INVALID FOR* Obesity, Class III, BMI 40-49.9 (morbid obesity*INVALID FOR* Physical deconditioning [R53.81] INVALID FOR* Prescriptions ordered this encounter Disp Refills Start End OFLOXACIN 0.3 % EYE DROPS 1 Baldo* 0 04/17/2018 04/24/2018 Route: LEFT EYE Sig: Use 2 Drops in the left eye four times daily for 7 days. Encounter Status:Closed by JOSE LUIS ROMAN DO on 04/17/18 [place] Observed: 04/15/2018 Status: COMPLETED Source: [place] 12:00 AM [facility] REPOSITORY Telephone (OBGYBR) SANGEETHA TRAN ([id number]) 1980 F Date Time Provider Department 04/15/18 KEVIN CÁRDENAS ([facility] OBGYBR During your visit today, we recorded the following information about you: Carmelita Sumner RN 04/15/2018 10:38 AM Signed Last office visit 03/2017. Refill order pended. Carmelita Contreras APRN.CNM 04/15/2018 1:29 PM Signed Patient needs to be seen in the office for future refills and management. Diogenes Contreras APRN.CNM Allergies As of Date: 04/15/2018 Noted Allergy Reaction ALEVE (NAPROXEN SODIUM) 04/28/2007 11 - Vomiting Comments: Ibuprofen without problems Vomiting with Aleve with one time use METFORMIN 01/23/2017 8 - GI Upset PENICILLINS 04/28/2007 7 - Swelling Date Reviewed: 03/26/2018 Reviewed by: Génesis Marcos - Fully Assessed Reason for Visit: Refill Request [94] Order(s):PEN NEEDLE 31 gauge x 5/16 ndleUSE DIRECTED ONCE DAILYDisp: 300 EachRfl: 0 Prescriptions as of 04/15/2018 Sig: PEN NEEDLE 31 GAUGE X 5/16 USE DIRECTED ONCE DAILY ALBUTEROL SULFATE HFA 90 MCG/* Inhale 2 Puffs as instructed * DICLOFENAC SODIUM 75 MG TABLE* Take 1 tablet by mouth twice * IBUPROFEN 800 MG TABLET Take 1 tablet by mouth every * LEVOTHYROXINE 88 MCG TABLET Take 1 tablet by mouth once d* LIRAGLUTIDE 0.6 MG/0.1 ML (18* Inject 1.8 mg subcutaneously * MAGNESIUM OXIDE 400 MG (241.3* take 1 tablet by mouth once d* ONDANSETRON 4 MG DISINTEGRATI* Take 1 tablet by mouth every * POTASSIUM CHLORIDE ER 10 MEQ * take 1 tablet by mouth once d* TRAMADOL 50 MG TABLET Take 1 tablet by mouth at bed* TRIAMCINOLONE ACETONIDE 0.1 %* Apply 1 application to affect* * VITAMIN B COMPLEX TABLET Take 1 tablet by mouth once d* VITAMIN B-2 100 MG TABLET take 1 tablet by mouth once d* VITAMIN D3 2,000 UNIT CAPSULE take 1 capsule by mouth once * Problem List As Of Date 04/15/2018 Noted Resolved Renal calculi [N20.0] INVALID FOR*03/10/2017 Hypothyroidism [E03.9] INVALID FOR* Lumbar disc disease [M51.9] INVALID FOR* Polycystic ovary syndrome [E28.2] INVALID FOR* Rosacea [L71.9] INVALID FOR* Dysmetabolic syndrome [E88.81] INVALID FOR* Abdominal pain, unspecified site [R10.9] INVALID FOR* IBS (irritable bowel syndrome) [K58.9] INVALID FOR* PUD (peptic ulcer disease) [K27.9] INVALID FOR* Bleeding disorder (HCC) [D69.9] INVALID FOR* CADENCE (obstructive sleep apnea) [G47.33] INVALID FOR* Kidney stone [N20.0] INVALID FOR*03/10/2017 Right flank pain [R10.9] INVALID FOR*03/10/2017 Obesity (BMI 30-39.9) [E66.9] INVALID FOR*11/18/2017 Atypical migraine [G43.009] INVALID FOR* Cerebral aneurysm [I67.1] INVALID FOR* Fatigue [R53.83] INVALID FOR* Mouth sores [K13.79] INVALID FOR* Tick bite [W57.XXXA] INVALID FOR*03/10/2017 Myalgia [M79.10] INVALID FOR* Anxiety disorder [F41.9] INVALID FOR* Oral mucosal lesion [K13.70] INVALID FOR* Fibromyalgia [M79.7] INVALID FOR* Obesity, Class III, BMI 40-49.9 (morbid obesity*INVALID FOR* Physical deconditioning [R53.81] INVALID FOR* Prescriptions ordered this encounter Disp Refills Start End PEN NEEDLE 31 GAUGE X 5/16 300 * 0 04/15/2018 Sig: USE DIRECTED ONCE DAILY Medications Discontinued During This Encounter PEN NEEDLE 31 gauge x 5/16 ndle 250 * 0 12/31/2017 04/15/2018 Sig: use as directed once daily Disc: Reason for discontinue is not on file. Encounter Status:Closed by DIOGENES CONTRERAS on 04/15/18 SCREENING MAMM (CAD), Observed: 04/12/2018 Status: F Source: [place] 11:42 AM [facility] REPOSIT[facility] Imaging Services [address] [place], [place] [address] [address] SCREENING MAMM (CAD), BILAT MR#: [id number] Acct: [id number] Name: SANGEETHA TRAN Rep #: [id number] : 1980 F 38 From: Siva Jacobs MD PCP: Jose Luis Navarro DO Status: REG CLI Study: SCREENING MAMM (CAD), BILAT Date of Exam: 04/12/18 Exam# [id number] Ordering Dr: KEVIN CÁRDENAS MAMMOGRAPHY - BILATERAL SCREENING REASON FOR EXAM: Female, 38 years old. Routine annual screening examination. PERTINENT HISTORY: Mother with breast cancer. TECHNIQUE: Digital bilateral breast mahi (3D mammographic acquisition) in the CC and MLO projections. 2-D mediolateral oblique (MLO) and craniocaudad (CC) views of both breasts were obtained. CAD: Full Field Digital Mammography with Computer Added Detection was performed. COMPARISON: Comparison is made with prior study dated April 04, 2013 and June 03, 2011. FINDINGS: Breast Composition: There are scattered areas of fibroglandular density. There are no dominant masses or suspicious calcifications. Stable asymmetry of breast tissue or more breast tissue is seen in the upper quadrant of the left breast as compared to the right side. No other significant abnormalities are identified. There has been no significant change since the prior study. BI/SCREENING MAMM (CAD), BILAT IMPRESSION: Stable bilateral screening mammogram. Yearly follow-up mammogram recommended. (A) ASSESSMENT CATEGORY: BIRADS Category 2: Benign. A letter regarding these results will be sent to the patient by the facility within 30 days. Approximately 10% of breast cancers are not detected by mammography. A normal mammogram should not delay biopsy of a clinically suspicious abnormality. [id number] Electronically Signed: Siva Jacobs MD at 13:57 EST Tel [phone], Service support , CC: KEVIN C[facility]NA[facility]; Jose Luis Navarro DO [employer] Viewer: Signed CBC Collected: 03/24/2018 Status: F Source: [place] 9:45 AM [facility] REPOSITORY TYPE CODE TESTS RESULT OUT OF REFERENCE UNITS RANGE LAB WBC 3.70-11.00 k/uL WBC 9.90 LAB RBC 3.90-5.20 m/uL RBC 4.55 LAB HGB 11.5-15.5 g/dL Hemoglobin 13.4 LAB HCT 36.0-46.0 % Hematocrit 42.2 LAB MCV 80.0-100.0 fL MCV 92.7 LAB MCH 26.0-34.0 pG MCH 29.5 LAB MCHC 30.5-36.0 g/dL MCHC 31.8 LAB RDWCV 11.5-15.0 % RDW-CV 12.9 LAB PLTCT 150-400 k/uL Platelet Count 273 LAB MPV 9.0-12.7 fL MPV 10.2 LAB ABSNUC <0.01 k/uL Absolute nRBC <0.01 Performed By: #### CBC, FT4, CK, CMP, CRP, RF, TSH, B12, VITD, ANAIFS, ANABLL #### [facility] [employer] [address] [place], [place] [address] FREE T4 Collected: 03/24/2018 Status: F Source: [place] 9:45 AM [facility] REPOSITORY TYPE CODE TESTS RESULT OUT OF RANGE REFERENCE UNITS LAB FT4 0.9-1.7 ng/dL Free T4 0.9 Performed By: #### CBC, FT4, CK, CMP, CRP, RF, TSH, B12, VITD, ANAIFS, ANABLL #### [facility] [employer] [address] [place], [place] [address] CK Collected: 03/24/2018 Status: F Source: [facility] 9:45 AM [facility] REPOSITORY TYPE CODE TESTS RESULT OUT OF RANGE REFERENCE UNITS LAB CK 42-196 U/L CK 47 Performed By: #### CBC, FT4, CK, CMP, CRP, RF, TSH, B12, VITD, ANAIFS, ANABLL #### [facility] [address] [place], [place] [address] COMP METABOLIC PANEL Collected: 03/24/2018 Status: F Source: [place] 9:45 AM [facility] REPOS[facility] TYPE CODE TESTS RESULT OUT OF REFERENCE UNITS RANGE LAB TP 6.3-8.0 g/dL Protein, Total 7.1 LAB ALB 3.9-4.9 g/dL Albumin 4.1 LAB CA 8.5-10.2 mg/dL Calcium, Total 8.7 LAB TBIL 0.2-1.3 mg/dL Bilirubin, Total 0.4 LAB ALKP 34-123 U/L Alkaline Phosphatase 51 LAB AST 13-35 U/L AST 23 LAB GLU 74-99 mg/dL Glucose 87 Result Comment: The [place] [employer] (ADA) provides guidance for cutoff values for fasting glucose and random glucose. The ADA defines fasting as no caloric intake for at least 8 hours. Fas ting plasma glucose results between 100 to 125 mg/dL indicate increased risk for diabetes (prediabetes). Fasting plasma glucose results greater than or equal to 126 mg/dL meet the criteria for diagnosis of diabetes. In the absence of unequivocal hyperglycemia, results should be confirmed by repeat testing. In a patient with classic symptoms of hyperglycemia or hyperglycemic crisis, random plasma glucose results greater than or equal to 200 mg/dL meet the criteria for diagnosis of diabetes. Reference: Standards of Medical Care in Diabetes 2016, [place] [employer]. Diabetes Care. 2016.39(Suppl 1). LAB BUN 7-21 mg/dL BUN 13 LAB CRET 0.58-0.96 mg/dL Creatinine 0.71 LAB NA 136-144 mmol/L Sodium 138 LAB K 3.7-5.1 mmol/L Potassium 4.5 LAB CL 97-105 mmol/L Chloride 103 LAB CO2 22-30 mmol/L CO2 Low 21 LAB AGAP 9-18 mmol/L Anion Gap 14 LAB ALT 7-38 U/L ALT 26 LAB GFRAA eGFR- Amer. >60 LAB GFRNAA . eGFR-All Other Races >60 Result Comment: eGFR (Estimated GFR) Units of measure: mL/min/1.73 meters squared eGFR is derived from the reexpressed MDRD Study equation using the following parameters: serum creatinine, age, gender and race. The creatinine assay has been calibrated to be traceable to IDMS. An eGFR <60 mL/min/1.73m2 for >3 months is consistent with chronic kidney disease. Refer to KDOQI guidelines for clinical interpretation. In patients with unstable renal function, e.g. those with acute kidney injury, the eGFR may not accurately reflect actual GFR. Performed By: #### CBC, FT4, CK, CMP, CRP, RF, TSH, B12, VITD, ANAIFS, ANABLL #### [facility] [address] [place], [place] [address] C-REACTIVE PROTEIN Collected: 03/24/2018 Status: F Source: [place] 9:45 AM [facility] REPOSITORY TYPE CODE TESTS RESULT OUT OF REFERENCE UNITS RANGE LAB CRP <0.9 mg/dL C-Reactive 0.2 Protein Performed By: #### CBC, FT4, CK, CMP, CRP, RF, TSH, B12, VITD, ANAIFS, ANABLL #### [facility] [address] [place] [address] RHEUMATOID FACTOR Collected: 03/24/2018 Status: F Source: [place] 9:45 AM [facility] REPOSITORY TYPE CODE TESTS RESULT OUT OF REFERENCE UNITS RANGE LAB RF <16 IU/mL Rheumatoid <10 Factor Performed By: #### CBC, FT4, CK, CMP, CRP, RF, TSH, B12, VITD, ANAIFS, ANABLL #### [place] [address] [place] [address] TSH Collected: 03/24/2018 Status: F Source: [place] 9:45 AM [facility] REPOSITORY TYPE CODE TESTS RESULT OUT OF RANGE REFERENCE UNITS LAB TSH 0.400-5.500 uU/mL TSH 2.150 Result Comment: If the patient is , TSH reference range varies by gestational period: First Trimester 0.100-2.500 uU/mL Second Trimester 0.200-3.000 uU/mL Third Trimester 0.300-3.000 uU/mL References: 1. De Kenzie L, Berryloanuph M, Gordon EK, et al. Management of Thyroid Dysfunction during and : An Endocrine Society Clinical Practice Guideline. J Clin Endocrinol Metab, 2012:97:3507-6474. 2. Lambert OLIVA. Overview of thyroid disease in . UpToDate. 2016. Accessed on October 12, 2015. Performed By: #### CBC, FT4, CK, CMP, CRP, RF, TSH, B12, VITD, ANAIFS, ANABLL #### [facility] [address] [place] [id number] VITAMIN B12 Collected: 03/24/2018 Status: F Source: [place] 9:45 [facility] REPOSITORY TYPE CODE TESTS RESULT OUT OF REFERENCE UNITS RANGE LAB B12 232-1245 pg/mL Vitamin B12 536 Performed By: #### CBC, FT4, CK, CMP, CRP, RF, TSH, B12, VITD, ANAIFS, ANABLL #### [place] [address] [place] [address] VITAMIN D 25 HYDROXY Collected: 03/24/2018 Status: F Source: [place] 9:45 [facility] REPOSITORY TYPE CODE TESTS RESULT OUT OF REFERENCE UNITS RANGE LAB VITD 31.0-80.0 ng/mL Low Vitamin D 25 26.2 Hydroxy Result Comment: Classification of 25 [place] Vitamin D status: Insufficiency/Moderate Deficiency: < or = 30 ng/mL Sufficiency/Optimal Levels: 31 to 80 ng/mL Toxicity: > 100 ng/mL Test performed by chemiluminescent immunoassay. Performed By: #### CBC, FT4, CK, CMP, CRP, RF, TSH, B12, VITD, ANAIFS, ANABLL #### [facility] [place] [address] ZACHARIAH BY IFA Collected: 03/24/2018 Status: F Source: [place] 9:[address] [place] [address] REPOSITORY TYPE CODE TESTS RESULT OUT OF RANGE REFERENCE UNITS LAB ANASC Negative Abnormal Alert ZACHARIAH Positive Result Comment: Normal range : negative at <1:80 serum dilution. LAB DOMENIC Negative Abnormal 1:80 Alert ZACHARIAH Titer LAB ANAP ZACHARIAH Pattern Speckled Performed By: #### CBC, FT4, CK, CMP, CRP, RF, TSH, B12, VITD, ANAIFS, ANABLL #### [facility] [address] [place], [place] [address] ZACHARIAH IFA TITER BILL Collected: 03/24/2018 Status: F Source: [place] 9:45 [facility] REPOSITORY TYPE CODE TESTS RESULT OUT OF REFERENCE UNITS RANGE LAB ANABLL ZACHARIAH Billed for IFA Titer services Bill performed Performed By: #### CBC, FT4, CK, CMP, CRP, RF, TSH, B12, VITD, ANAIFS, ANABLL #### [facility] [address] [place], [place] [address] PROGRESS Observed: 03/15/2018 Status: COMPLETED Source: [place] 8:54 AM [facility] REPOSITORY HNO ID: [id number] Author: Jose Luis Roman Service: (none) Author Type: Physician Type: Progress Notes Filed: 03/15/2018 10:01 AM Note Text: CC: Sangeetha Tran is a 38 year old female who presents to the office for headaches HPI: Headaches, increased in severity, frequency, sometimes associated with dizziness/LH, started around time of birthday 2 months ago when she was in [place], thinks she was exposed to a new chemical or food. Was having episodes of symptoms while in [place], thought she was having a stroke- was having word finding difficulty, weakness in both arms, felt like she was going to pass out, LH symptoms coming and going. They did labs, told her she was dehydrated and gave her IVF and sent her home. Since then she has been Having these symptoms and is concerned, crying in office today, hx of cerebral aneurysm- last checked 11/2016 with CTA Also has been having increase of fatigue, joint stiffness in hands, especially knuckle areas in the AM, sometimes better by afternoon. PAST MEDICAL HISTORY Diagnosis Date - Anxiety - Cerebral aneurysm - Complicated migraine - Endometriosis 75% improvement in abdominal pain post lap surgery - Hypothyroidism - IBS (irritable bowel syndrome) - Insulin resistance - Low HDL (under 40) - Low serum progesterone worsening symptoms with progesterone rx - Lumbar disc disease 05/13/2010 - Migraines - CADENCE (obstructive sleep apnea) Last polysomnogram in 2012, last use in 2012 - Personal history of kidney stones - Polycystic ovary syndrome 06/19/2010 - Protein S deficiency (HCC) 2007 clotting disorder - PUD (peptic ulcer disease) 2009 treated medically, repeat EGD neg in 2014 - Renal calculi 2009 associated to low citric acid, h/o hypercalciuria - Rosacea 06/19/2010 - Vitamin D deficiency PAST SURGICAL HISTORY Procedure Laterality Date - APPENDECTOMY - COLONOSCOP W/ OR W/O BRSH SPEC 08/16/14 Colonoscopy-repeat at 50 - EGD W/O OR W/BRUSH/WASH 08/16/14 EGD - EXPLOR/REMV STONE,RENAL PELVIS 2008 multiple - LAPAROSCOPIC CHOLEYCYSTECTOMY 2004 Cholecystectomy, lap - PAST SURGICAL HISTORY OF Laparoscopy for endometriosis - PAST SURGICAL HISTORY OF dANDc - PAST SURGICAL HISTORY OF wisdom teeth Current Outpatient Prescriptions: magnesium oxide (MAG-OX) 400 mg (241.3 mg magnesium) tablet take 1 tablet by mouth once daily ondansetron orally disintegrating (ZOFRAN ODT) 4 mg disintegrating tablet Take 1 tablet by mouth every 6 hours as needed for Nausea/Vomiting. traMADol (ULTRAM) 50 mg tablet Take 1 tablet by mouth at bedtime as needed for Pain for up to 30 days. For severe low back pain potassium chloride (K-TAB) 10 mEq tablet take 1 tablet by mouth once daily WITH BREAKFAST ibuprofen (MOTRIN) 800 mg tablet Take 1 tablet by mouth every 6 hours as needed for Pain. Take with food. levothyroxine (SYNTHROID) 88 mcg tablet Take 1 tablet by mouth once daily. and skip 1 day weekly. triamcinolone acetonide (KENALOG) 0.1 % cream Apply 1 application to affected area three times daily. For eczema left knee, Apply sparingly to area for rash/itching. diclofenac, EC, (VOLTAREN) 75 mg EC tablet Take 1 tablet by mouth twice daily. For back pain/arthritis, For pain/inflammation. Take with food. albuterol HFA (VENTOLIN HFA) 90 mcg/actuation inhaler Inhale 2 Puffs as instructed every 6 hours as needed for Wheezing/Shortness of Breath. VITAMIN D-3 2,000 unit cap take 1 capsule by mouth once daily vitamin b complex (B COMPLETE) Tab Take 1 tablet by mouth once daily. PEN NEEDLE 31 gauge x 16 ndle use as directed once daily VITAMIN B-2 100 mg tab take 1 tablet by mouth once daily liraglutide (VICTOZA) 0.6 mg/ 0.1 ml subcutaneous pen injector Inject 1.8 mg subcutaneously once daily. No current facility-administered medications for this visit. 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 Uvula midline. Neck: No LAD, no thyromegaly, no meningismus. CV: RRR, no murmur Lungs: CTA b/l, no wheezing Skin: No rashes, lesions, or wounds on exposed skin. Neuro: increased sensitivity to sharp touch and cold on left side of upper and lower arm and face vs. Right side, mild weakness of left UE vs. Right UE, normal strength and balance of legs No edema, normal pulses ASSESSMENT/PLAN: 1. Dizziness - ICD9: 780.4, ICD10: R42 (primary diagnosis) - labs as ordered, CTA brain due to hx of aneurysm, unsure of cause - CREATININE BLD - COMP METABOLIC PANEL - CBC - TSH BLD - T4 FREE/FREE THYROX - VITAMIN D 25 HYDROXY - VITAMIN B12 BLOOD 2. Anxiety disorder, unspecified type - ICD9: 300.00, ICD10: F41.9 - rx refilled - LORAZEPAM 0.5 MG TABLET PDMP website checked and validated. All prescriptions have been APPROPRIATELY filled. No suspicious activity was identified. 03/15/2018 by Jose Luis Roman DO 3. Cerebral aneurysm - ICD9: 437.3, ICD10: I67.1 - check labs as ordered, CTA brain ordered. - CREATININE BLD 4. Weakness of both arms - ICD9: 729.89, ICD10: R29.898 - see above, CTA brain and labs - CREATININE BLD - C-REACTIVE PROTEIN (CRP) - ZACHARIAH BY IFA SCREEN - RHEUMATOID FACTOR BL - COMP METABOLIC PANEL - CBC - CK CREATINE KINASE 5. Screening for nephropathy - ICD9: V81.5, ICD10: Z13.89 - recheck labs 6. Dizziness and giddiness - ICD9: 780.4, ICD10: R42 - see above, Unsure of cause. - CTA HEAD WO/W IVCON - CK CREATINE KINASE 7. Vitamin D deficiency - ICD9: 268.9, ICD10: E55.9 - recheck level, continue supplement - VITAMIN D 25 HYDROXY 8. Multiple joint pain - ICD9: 719.49, ICD10: M25.50 - recheck labs - C-REACTIVE PROTEIN (CRP) - ZACHARIAH BY IFA SCREEN - RHEUMATOID FACTOR BL - COMP METABOLIC PANEL - CBC - TSH BLD - T4 FREE/FREE THYROX - VITAMIN D 25 HYDROXY Jose Luis Roman DO Return if no improvement. Follow up with Jose Luis Roman DO. Discussed risks, benefits, alternatives, and potential side effects of medications. Patient/Guardian expressed understanding and agreed with the plan. See patient instructions. Jose Luis Roman DO [address] [place] [address] CNOV Observed: 03/15/2018 Status: COMPLETED Source: [place] 8:40 AM [facility] REPOSITORY Office Visit (FAMPWS) SANGEETHA TRAN ([id number]) 1980 F Date Time Provider Department 03/15/18 8:40 AM [facility] During your visit today, we recorded the following information about you: Temperature Pulse Respiration Blood pressure 97.7 degrees 64/minute 16/minute 104/68 Weight 102.5 kg Jose Luis Roman DO 03/15/2018 10:01 AM Signed CC: Sangeetha Tran is a 38 year old female who presents to the office for headaches HPI: Headaches, increased in severity, frequency, sometimes associated with dizziness/LH, started around time of birthday 2 months ago when she was in [place], thinks she was exposed to a new chemical or food. Was having episodes of symptoms while in [place], thought she was having a stroke- was having word finding difficulty, weakness in both arms, felt like she was going to pass out, LH symptoms coming and going. They did labs, told her she was dehydrated and gave her IVF and sent her home. Since then she has been Having these symptoms and is concerned, crying in office today, hx of cerebral aneurysm- last checked 11/2016 with CTA Also has been having increase of fatigue, joint stiffness in hands, especially knuckle areas in the AM, sometimes better by afternoon. PAST MEDICAL HISTORY Diagnosis Date - Anxiety - Cerebral aneurysm - Complicated migraine - Endometriosis 75% improvement in abdominal pain post lap surgery - Hypothyroidism - IBS (irritable bowel syndrome) - Insulin resistance - Low HDL (under 40) - Low serum progesterone worsening symptoms with progesterone rx - Lumbar disc disease 05/13/2010 - Migraines - CADENCE (obstructive sleep apnea) Last polysomnogram in 2012, last use in 2012 - Personal history of kidney stones - Polycystic ovary syndrome 06/19/2010 - Protein S deficiency (HCC) 2007 clotting disorder - PUD (peptic ulcer disease) 2009 treated medically, repeat EGD neg in 2014 - Renal calculi 2008 associated to low citric acid, h/o hypercalciuria - Rosacea 06/19/2010 - Vitamin D deficiency PAST SURGICAL HISTORY Procedure Laterality Date - APPENDECTOMY - COLONOSCOP W/ OR W/O BRSH SPEC 08/16/14 Colonoscopy-repeat at 50 - EGD W/O OR W/BRUSH/WASH 08/16/14 EGD - EXPLOR/REMV STONE,RENAL PELVIS 2008 multiple - LAPAROSCOPIC CHOLEYCYSTECTOMY 2003 Cholecystectomy, lap - PAST SURGICAL HISTORY OF Laparoscopy for endometriosis - PAST SURGICAL HISTORY OF dANDc - PAST SURGICAL HISTORY OF wisdom teeth Current Outpatient Prescriptions: magnesium oxide (MAG-OX) 400 mg (241.3 mg magnesium) tablet take 1 tablet by mouth once daily ondansetron orally disintegrating (ZOFRAN ODT) 4 mg disintegrating tablet Take 1 tablet by mouth every 6 hours as needed for Nausea/Vomiting. traMADol (ULTRAM) 50 mg tablet Take 1 tablet by mouth at bedtime as needed for Pain for up to 30 days. For severe low back pain potassium chloride (K-TAB) 10 mEq tablet take 1 tablet by mouth once daily WITH BREAKFAST ibuprofen (MOTRIN) 800 mg tablet Take 1 tablet by mouth every 6 hours as needed for Pain. Take with food. levothyroxine (SYNTHROID) 88 mcg tablet Take 1 tablet by mouth once daily. and skip 1 day weekly. triamcinolone acetonide (KENALOG) 0.1 % cream Apply 1 application to affected area three times daily. For eczema left knee, Apply sparingly to area for rash/itching. diclofenac, EC, (VOLTAREN) 75 mg EC tablet Take 1 tablet by mouth twice daily. For back pain/arthritis, For pain/inflammation. Take with food. albuterol HFA (VENTOLIN HFA) 90 mcg/actuation inhaler Inhale 2 Puffs as instructed every 6 hours as needed for Wheezing/Shortness of Breath. VITAMIN D-3 2,000 unit cap take 1 capsule by mouth once daily vitamin b complex (B COMPLETE) Tab Take 1 tablet by mouth once daily. PEN NEEDLE 31 gauge x 5/16 ndle use as directed once daily VITAMIN B-2 100 mg tab take 1 tablet by mouth once daily liraglutide (VICTOZA) 0.6 mg/ 0.1 ml subcutaneous pen injector Inject 1.8 mg subcutaneously once daily. No current facility-administered medications for this visit. 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 Uvula midline. Neck: No LAD, no thyromegaly, no meningismus. CV: RRR, no murmur Lungs: CTA b/l, no wheezing Skin: No rashes, lesions, or wounds on exposed skin. Neuro: increased sensitivity to sharp touch and cold on left side of upper and lower arm and face vs. Right side, mild weakness of left UE vs. Right UE, normal strength and balance of legs No edema, normal pulses ASSESSMENT/PLAN: 1. Dizziness - ICD9: 780.4, ICD10: R42 (primary diagnosis) - labs as ordered, CTA brain due to hx of aneurysm, unsure of cause - CREATININE BLD - COMP METABOLIC PANEL - CBC - TSH BLD - T4 FREE/FREE THYROX - VITAMIN D 25 HYDROXY - VITAMIN B12 BLOOD 2. Anxiety disorder, unspecified type - ICD9: 300.00, ICD10: F41.9 - rx refilled - LORAZEPAM 0.5 MG TABLET PDMP website checked and validated. All prescriptions have been APPROPRIATELY filled. No suspicious activity was identified. 03/15/2018 by Jose Luis Roman DO 3. Cerebral aneurysm - ICD9: 437.3, ICD10: I67.1 - check labs as ordered, CTA brain ordered. - CREATININE BLD 4. Weakness of both arms - ICD9: 729.89, ICD10: R29.898 - see above, CTA brain and labs - CREATININE BLD - C-REACTIVE PROTEIN (CRP) - ZACHARIAH BY IFA SCREEN - RHEUMATOID FACTOR BL - COMP METABOLIC PANEL - CBC - CK CREATINE KINASE 5. Screening for nephropathy - ICD9: V81.5, ICD10: Z13.89 - recheck labs 6. Dizziness and giddiness - ICD9: 780.4, ICD10: R42 - see above, Unsure of cause. - CTA HEAD WO/W IVCON - CK CREATINE KINASE 7. Vitamin D deficiency - ICD9: 268.9, ICD10: E55.9 - recheck level, continue supplement - VITAMIN D 25 HYDROXY 8. Multiple joint pain - ICD9: 719.49, ICD10: M25.50 - recheck labs - C-REACTIVE PROTEIN (CRP) - ZACHARIAH BY IFA SCREEN - RHEUMATOID FACTOR BL - COMP METABOLIC PANEL - CBC - TSH BLD - T4 FREE/FREE THYROX - VITAMIN D 25 HYDROXY Jose Luis Roman DO Return if no improvement. Follow up with Jose Luis Roman DO. Discussed risks, benefits, alternatives, and potential side effects of medications. Patient/Guardian expressed understanding and agreed with the plan. See patient instructions. Jose Luis Roman DO [address] [place] [address] Referring Provider: SELF [[id number]] Allergies As of Date: 03/15/2018 Noted Allergy Reaction ALEVE (NAPROXEN SODIUM) 04/28/2007 11 - Vomiting Comments: Ibuprofen without problems Vomiting with Aleve with one time use METFORMIN 01/23/2017 8 - GI Upset PENICILLINS 04/28/2007 7 - Swelling Date Reviewed: 03/15/2018 Reviewed by: Kevin Rivera LPN - Fully Assessed Reason for Visit: Headache [52] Primary Visit Diagnosis:Dizziness [R42] Other Visit Diagnoses:Anxiety disorder, unspecified type [F41.9] Cerebral aneurysm [I67.1] Weakness of both arms [R29.898] Screening for nephropathy [Z13.89] Dizziness and giddiness [R42] Vitamin D deficiency [E55.9] Multiple joint pain [M25.50] Order(s):LORazepam (ATIVAN) 0.5 mg tabTake 1 tablet by mouth twice daily as needed (anxiety) for up to 30 days.Disp: 45 tabletRfl: 2 CREATININE BLD [SQCRET] Order #: [id number] FUTURE CTA HEAD WO/W IVCON [2676708] Order #: [id number] FUTURE iv contrast (will be provided with radiology test)CTA Head WO/W IVCON No IV access, insert saline lock prior to the sedation, infusion, injection for imaging exam. Discontinue saline lock post exam. If Pt. has a central line or IVAD, may access for administration according to line specific nursing protocol. Once exam is complete flush line and de-access according to line specific nursing protocol in the CT contrast administration guidelines link.Disp: 1 EachRfl: 0 C-REACTIVE PROTEIN (CRP) [SQCRP] Order #: [id number] FUTURE ZACHARIAH BY IFA SCREEN [SQANAIFS] Order #: [id number] FUTURE RHEUMATOID FACTOR BL [SQRF] Order #: [id number] FUTURE COMP METABOLIC PANEL [SQCMP] Order #: [id number] FUTURE CBC [SQCBC] Order #: [id number] FUTURE TSH BLD [SQTSH] Order #: [id number] FUTURE T4 FREE/FREE THYROX [SQFT4] Order #: [id number] FUTURE VITAMIN D 25 HYDROXY [SQVITD] Order #: [id number] FUTURE CK CREATINE KINASE [SQCK] Order #: [id number] FUTURE VITAMIN B12 BLOOD [SQB12] Order #: [id number] FUTURE Prescriptions as of 03/15/2018 Sig: MAGNESIUM OXIDE 400 MG (241.3* take 1 tablet by mouth once d* ONDANSETRON 4 MG DISINTEGRATI* Take 1 tablet by mouth every * TRAMADOL 50 MG TABLET Take 1 tablet by mouth at bed* POTASSIUM CHLORIDE ER 10 MEQ * take 1 tablet by mouth once d* IBUPROFEN 800 MG TABLET Take 1 tablet by mouth every * LEVOTHYROXINE 88 MCG TABLET Take 1 tablet by mouth once d* TRIAMCINOLONE ACETONIDE 0.1 %* Apply 1 application to affect* DICLOFENAC SODIUM 75 MG TABLE* Take 1 tablet by mouth twice * ALBUTEROL SULFATE HFA 90 MCG/* Inhale 2 Puffs as instructed * VITAMIN D3 2,000 UNIT CAPSULE take 1 capsule by mouth once * * VITAMIN B COMPLEX TABLET Take 1 tablet by mouth once d* LORAZEPAM 0.5 MG TABLET Take 1 tablet by mouth twice * IV CONTRAST (RADIOLOGY PROCED* CTA Head WO/W IVCON No IV acc* PEN NEEDLE 31 GAUGE X /16 use as directed once daily VITAMIN B-2 100 MG TABLET take 1 tablet by mouth once d* LIRAGLUTIDE 0.6 MG/0.1 ML (18* Inject 1.8 mg subcutaneously * Problem List As Of Date 03/15/2018 Noted Resolved Renal calculi [N20.0] INVALID FOR*03/10/2017 Hypothyroidism [E03.9] INVALID FOR* Lumbar disc disease [M51.9] INVALID FOR* Polycystic ovary syndrome [E28.2] INVALID FOR* Rosacea [L71.9] INVALID FOR* Dysmetabolic syndrome [E88.81] INVALID FOR* Abdominal pain, unspecified site [R10.9] INVALID FOR* IBS (irritable bowel syndrome) [K58.9] INVALID FOR* PUD (peptic ulcer disease) [K27.9] INVALID FOR* Bleeding disorder (HCC) [D69.9] INVALID FOR* CADENCE (obstructive sleep apnea) [G47.33] INVALID FOR* Kidney stone [N20.0] INVALID FOR*03/10/2017 Right flank pain [R10.9] INVALID FOR*03/10/2017 Obesity (BMI 30-39.9) [E66.9] INVALID FOR*11/18/2017 Atypical migraine [G43.009] INVALID FOR* Cerebral aneurysm [I67.1] INVALID FOR* Fatigue [R53.83] INVALID FOR* Mouth sores [K13.79] INVALID FOR* Tick bite [W57.XXXA] INVALID FOR*03/10/2017 Myalgia [M79.10] INVALID FOR* Anxiety disorder [F41.9] INVALID FOR* Oral mucosal lesion [K13.70] INVALID FOR* Fibromyalgia [M79.7] INVALID FOR* Obesity, Class III, BMI 40-49.9 (morbid obesity*INVALID FOR* Physical deconditioning [R53.81] INVALID FOR* Prescriptions ordered this encounter Disp Refills Start End LORAZEPAM 0.5 MG TABLET 45 t* 2 03/15/2018 04/14/2018 Class: Print RX Route: ORAL Sig: Take 1 tablet by mouth twice daily as needed (anxiety) for up to 30 days. IV CONTRAST (RADIOLOGY PROCEDURE) 1 Ea* 0 03/15/2018 03/16/2018 Class: In Office Sig: CTA Head WO/W IVCON No IV access, insert saline lock prior to the sedation, infusion, injection for imaging exam. Discontinue saline lock post exam. If Pt. has a central line or IVAD, may access for administration according to line specific nursing protocol. Once exam is complete flush line and de-access according to line specific nursing protocol in the CT contrast administration guidelines link. Medications Discontinued During This Encounter LORazepam (ATIVAN) 0.5 mg tab 30 t* 2 08/17/2017 03/15/2018 Class: Print RX Route: ORAL Sig: Take 1 tablet by mouth twice daily as needed (anxiety) for up to 30 days. Disc: Reason for discontinue is not on file. Encounter Status:Closed by JOSE LUIS ROMAN DO on 03/15/18 PROGRESS Observed: 12/24/2017 Status: COMPLETED Source: [place] 2:18 PM [facility] [place] REPOSITORY O ID: [id number] Author: Dianelys Chowdhury Rdms Service: (none) Author Type: (none) Type: Progress Notes Filed: 12/24/2017 2:18 PM Note Text: Radiology Service Progress Note PATIENT NAME: Sangeetha Tran DATE OF SERVICE: December 24, 2017 TIME: 2:18 PM PATIENT IDENTITY VERIFICATION COMPLETED USING TWO (2) METHODS: Patient confirmed name verbally and Date of . PATIENT GENDER DATA: Female. status: : No status: NO. PATIENT RELEVANT IMPLANT DATA REVIEWED: Not Applicable RADIOLOGY DEPARTMENT: Ultrasound PERIPHERAL IV DATA: Not applicable SIGNED BY: Dianelys Chowdhury Rdms December 24, 2017 2:18 PM US THYROID/PARATHYROID Observed: 12/24/2017 Status: F Source: [place] 2:17 PM [facility] REPOSITORY * * *Final Report* * * DATE OF EXAM: Dec 24 2017 2:17PM [facility] 1048 - US THYROID/PARATHYROID / PROCEDURE REASON: Nontoxic single thyroid nodule * * * * Physician Interpretation * * * * ULTRASOUND OF THE THYROID GLAND HISTORY: Nontoxic single thyroid nodule TECHNIQUE: Ultrasound of the thyroid gland. Grayscale and color Doppler images. Images were obtained and stored in a permanent archive. COMPARISON: Ultrasound 09/04/2015 RESULT: The right thyroid lobe measures 4.5 x 1.8 x 1.2 cm. The left thyroid lobe measures 3.7 x 0.9 x 1 cm. The thyroid isthmus measures 2 mm in thickness. Parenchyma: The parenchyma is homogeneous. Right-sided nodules: none. Left-sided nodules: Solid 9 x 7 x 7 mm nodule with small areas of calcification appears similar to the prior ultrasound. - IMPRESSION: A solid 9 mm left thyroid nodule appears similar to the prior ultrasound from 09/04/2015. Metal [employer] Viewer: MARLON Transcribe Date/Time: Dec 24 2017 4:38P Dictated by : ISAAK ALTMAN MD This examination was interpreted and the report reviewed and electronically signed by: ISAAK ALTMAN MD on Dec 24 2017 5:26PM [facility] [id number] PROGRESS Observed: 12/24/2017 Status: COMPLETED Source: [place] 12:18 PM [facility] REPOSITORY HNO ID: [id number] Author: Janis Lim (Director Of Public Relations) Sonja Service: (none) Author Type: Nurse Practitioner Type: Progress Notes Filed: 12/24/2017 12:22 PM Note Text: CC: Sangeetha Tran is a 37 year old female who presents for weight loss medication follow up. HPI Currently taking Adipex. Denies: abdominal pain, nausea, vomiting, diarrhea, fevers, constipation, headache, change in urination, lightheadedness, weakness, numbness or tingling to arms or legs, edema, palpitations, sleep disturbances, impairment of concentration/attention, difficulty with memory, speech or language problems (particularly word-finding difficulties). If DM any hypo/hyperglycemiaNot applicable DIET Diet well balanced Weight/BMI Last 1 Encounter Wt Readings: Date: Wt: 12/22/2017 102.5 kg (226 lb) BMI 44.14 kg/(m2) Last visit Wt: 102.5 kg (226 lb) BMI: 44.14 kg/(m2) Weight change since last visit: How much: 2 lbs , How lon months Also reports left foot pain x 2 months Decreased sense of smell. ROS as above, otherwise non-contributory. Reviewed PMHx, PSHx, social Hx, medications and allergies. PHYSICAL EXAM BP 110/68 Pulse 68 Resp 16 Wt 102.5 kg (226 lb) BMI 44.14 kg/m? General Appearance: well appearing, in no acute distress, alert, obese Pysch: mood and affect broad and appropriate Lungs: Lungs clear to auscultation. No wheezing, rhonchi, rales Heart: RRR without murmur, gallop, or rubs. No ectopy Abdomen: Abdomen soft, non-tender. Bowel sounds normal. No masses, organomegaly ASSESSMENT/PLAN: 1. Obesity, Class III, BMI 40-49.9 (morbid obesity) (HCC) - ICD9: 278.01, ICD10: E66.01 (primary diagnosis) - [facility] - Begin diet consisting of counting calories, counting fat grams and counting carbohydrates. - Reduce sugary drinks of artificial juices and sodas and replace with water and low calorie Crystal Light. - Healthy Snack alternatives have been discussed and will attempt more fruits and vegetables. - encouraged 3 meals a day - Beginexercise or meaningful activity for 20 minutes at lest 3 times a day 2. Lumbar disc disease - ICD9: 722.93, ICD10: M51.9 3. DDD (degenerative disc disease), lumbar - ICD9: 722.52, ICD10: M51.36 4. Lumbar facet arthropathy (HCC) - ICD9: 721.3, ICD10: M46.96 5. Other osteoarthritis of spine, lumbar region - ICD9: 721.3, ICD10: M47.896 6. Lumbar radiculopathy - ICD9: 724.4, ICD10: M54.16 - TRAMADOL 50 MG TABLET PDMP website checked and validated. All prescriptions have been APPROPRIATELY filled. No suspicious activity was identified. 12/22/2017 by Janis Mishra APRN.HOOP MAKER MACHINE 7. Foot pain, left - ICD9: 729.5, ICD10: M79.672 - XR ANKLE GENERAL 3V AP/LAT/OBL LT 8. Thyroid nodule - ICD9: 241.0, ICD10: E04.1 - US THYROID/PARATHYROID - recommended f/u with neurology for change in smell d/t hx. Janis Mishra APRN.HOOP MAKER MACHINE PROGRESS Observed: 12/22/2017 Status: COMPLETED Source: [place] 2:02 PM [facility] REPOSITORY HNO ID: [id number] Author: Benja Naranjo (Rt) Forrest Blake Service: (none) Author Type: Investigative Analyst Type: Progress Notes Filed: 12/22/2017 2:03 PM Note Text: Radiology Service Progress Note PATIENT NAME: Sangeetha Tran DATE OF SERVICE: December 22, 2017 TIME: 2:02 PM PATIENT IDENTITY VERIFICATION COMPLETED USING TWO (2) METHODS: Patient confirmed name verbally and Date of . PATIENT GENDER DATA: Female. status: : No status: NO. PATIENT RELEVANT IMPLANT DATA REVIEWED: Not Applicable RADIOLOGY DEPARTMENT: General X-ray: Exam(s) Completed: Lower Extremity X-Ray(s): Ankle, Left and Wt. Bearing: PERIPHERAL IV DATA: Not applicable SIGNED BY: RT Lo December 22, 2017 2:02 PM XR ANKLE 3V AP/LAT/OBL Observed: 12/22/2017 Status: F Source: [facility] 2:02 PM [facility] REPOSITORY * * *Final Report* * * DATE OF EXAM: Dec 22 2017 2:02PM [facility] [id number] - XR ANKLE 3V AP/LAT/OBL LT / PROCEDURE REASON: Pain in left foot * * * * Physician Interpretation * * * * PROCEDURE: Left ankle INDICATION: Pain in left foot/ankle . TECHNIQUE: XR ANKLE 3V AP/LAT/OBL LT COMPARISON: None FINDINGS: No fractures or dislocations. Ankle mortise is symmetric. No focal soft tissue swelling. Small plantar calcaneal spur. IMPRESSION: No acute abnormality Metal Products Viewer: MARLON Transcribe Date/Time: Dec 22 2017 4:42P Dictated by : BRET ALMEIDA MD This examination was interpreted and the report reviewed and electronically signed by: BRET ALMEIDA MD on Dec 22 2017 4:43PM EST [id number] CNOV Observed: 12/22/2017 Status: COMPLETED Source: [place] 1:00 PM [facility] REPOSITORY Office Visit (FAMPWS) SANGEETHA TRAN ([id number]) 1980 F Date Time Provider Department 12/22/17 1:00 PM JANIS MISHRA [facility] During your visit today, we recorded the following information about you: Pulse Respiration Blood pressure Weight 68/minute 16/minute 110/68 102.5 kg Janis Mishra APRN.HOOP MAKER MACHINE 12/24/2017 12:22 PM Signed CC: Sangeetha Tran is a 37 year old female who presents for weight loss medication follow up. HPI Currently taking Adipex. Denies: abdominal pain, nausea, vomiting, diarrhea, fevers, constipation, headache, change in urination, lightheadedness, weakness, numbness or tingling to arms or legs, edema, palpitations, sleep disturbances, impairment of concentration/attention, difficulty with memory, speech or language problems (particularly word-finding difficulties). If DM any hypo/hyperglycemiaNot applicable DIET Diet well balanced Weight/BMI Last 1 Encounter Wt Readings: Date: Wt: 12/22/2017 102.5 kg (226 lb) BMI 44.14 kg/(m2) Last visit Wt: 102.5 kg (226 lb) BMI: 44.14 kg/(m2) Weight change since last visit: How much: 2 lbs , How lon months Also reports left foot pain x 2 months Decreased sense of smell. ROS as above, otherwise non-contributory. Reviewed PMHx, PSHx, social Hx, medications and allergies. PHYSICAL EXAM BP 110/68 Pulse 68 Resp 16 Wt 102.5 kg (226 lb) BMI 44.14 kg/m? General Appearance: well appearing, in no acute distress, alert, obese Pysch: mood and affect broad and appropriate Lungs: Lungs clear to auscultation. No wheezing, rhonchi, rales Heart: RRR without murmur, gallop, or rubs. No ectopy Abdomen: Abdomen soft, non-tender. Bowel sounds normal. No masses, organomegaly ASSESSMENT/PLAN: 1. Obesity, Class III, BMI 40-49.9 (morbid obesity) ([facility]) - ICD9: 278.01, ICD10: E66.01 (primary diagnosis) - [facility] - Begin diet consisting of counting calories, counting fat grams and counting carbohydrates. - Reduce sugary drinks of artificial juices and sodas and replace with water and low calorie Crystal Light. - Healthy Snack alternatives have been discussed and will attempt more fruits and vegetables. - encouraged 3 meals a day - Beginexercise or meaningful activity for 20 minutes at lest 3 times a day 2. Lumbar disc disease - ICD9: 722.93, ICD10: M51.9 3. DDD (degenerative disc disease), lumbar - ICD9: 722.52, ICD10: M51.36 4. Lumbar facet arthropathy (HCC) - ICD9: 721.3, ICD10: M46.96 5. Other osteoarthritis of spine, lumbar region - ICD9: 721.3, ICD10: M47.896 6. Lumbar radiculopathy - ICD9: 724.4, ICD10: M54.16 - TRAMADOL 50 MG TABLET PDMP website checked and validated. All prescriptions have been APPROPRIATELY filled. No suspicious activity was identified. 12/22/2017 by Janis Mishra APRN.HOOP MAKER MACHINE 7. Foot pain, left - ICD9: 729.5, ICD10: M79.672 - XR ANKLE GENERAL 3V AP/LAT/OBL LT 8. Thyroid nodule - ICD9: 241.0, ICD10: E04.1 - US THYROID/PARATHYROID - recommended f/u with neurology for change in smell d/t hx. Janis Mishra APRN.HOOP MAKER MACHINE Referring Provider: SELF [200] Allergies As of Date: 12/22/2017 Noted Allergy Reaction ALEVE (NAPROXEN SODIUM) 04/28/2007 11 - Vomiting Comments: Ibuprofen without problems Vomiting with Aleve with one time use METFORMIN 01/23/2017 8 - GI Upset PENICILLINS 04/28/2007 7 - Swelling Date Reviewed: 12/22/2017 Reviewed by: Janis Granados) Sonja - Fully Assessed Reason for Visit: Recheck [92] Cmt: 1 month follow up Adipex Primary Visit Diagnosis:Obesity, Class III, BMI 40-49.9 (morbid obesity) (HCC) [E66.01] Other Visit Diagnoses:Lumbar disc disease [M51.9] DDD (degenerative disc disease), lumbar [M51.36] Lumbar facet arthropathy (HCC) [M46.96] Other osteoarthritis of spine, lumbar region [M47.896] Lumbar radiculopathy [M54.16] Foot pain, left [M79.672] Thyroid nodule [E04.1] Order(s):XR ANKLE GENERAL 3V AP/LAT/OBL LT [[id number]] Order #: [id number] FUTURE traMADol (ULTRAM) 50 mg tabletTake 1 tablet by mouth at bedtime as needed for Pain for up to 30 days. For severe low back painDisp: 20 tabletRfl: 0 [facility] [[id number]] Order #: [id number]: 1 THYROID/PARATHYROID [[id number]] Order #: [id number] FUTURE Prescriptions as of 12/22/2017 Sig: TRAMADOL 50 MG TABLET Take 1 tablet by mouth at bed* POTASSIUM CHLORIDE ER 10 MEQ * take 1 tablet by mouth once d* VITAMIN B-2 100 MG TABLET take 1 tablet by mouth once d* LIRAGLUTIDE 0.6 MG/0.1 ML (18* Inject 1.8 mg subcutaneously * IBUPROFEN 800 MG TABLET Take 1 tablet by mouth every * LEVOTHYROXINE 88 MCG TABLET Take 1 tablet by mouth once d* TRIAMCINOLONE ACETONIDE 0.1 %* Apply 1 application to affect* DICLOFENAC SODIUM 75 MG TABLE* Take 1 tablet by mouth twice * MAGNESIUM OXIDE 400 MG (241.3* take 1 tablet by mouth once d* ALBUTEROL SULFATE HFA 90 MCG/* Inhale 2 Puffs as instructed * VITAMIN D3 2,000 UNIT CAPSULE take 1 capsule by mouth once * PEN NEEDLE, DIABETIC 31 GAUGE* Use one needle per dose. 1 pe* * VITAMIN B COMPLEX TABLET Take 1 tablet by mouth once d* Problem List As Of Date 12/22/2017 Noted Resolved Renal calculi [N20.0] INVALID FOR*03/10/2017 Hypothyroidism [E03.9] INVALID FOR* Lumbar disc disease [M51.9] INVALID FOR* Polycystic ovary syndrome [E28.2] INVALID FOR* Rosacea [L71.9] INVALID FOR* Dysmetabolic syndrome [E88.81] INVALID FOR* Abdominal pain, unspecified site [R10.9] INVALID FOR* IBS (irritable bowel syndrome) [K58.9] INVALID FOR* PUD (peptic ulcer disease) [K27.9] INVALID FOR* Bleeding disorder (HCC) [D69.9] INVALID FOR* CADENCE (obstructive sleep apnea) [G47.33] INVALID FOR* Kidney stone [N20.0] INVALID FOR*03/10/2017 Right flank pain [R10.9] INVALID FOR*03/10/2017 Obesity (BMI 30-39.9) [E66.9] INVALID FOR*11/18/2017 Atypical migraine [G43.009] INVALID FOR* Cerebral aneurysm [I67.1] INVALID FOR* Fatigue [R53.83] INVALID FOR* Mouth sores [K13.79] INVALID FOR* Tick bite [W57.XXXA] INVALID FOR*03/10/2017 Myalgia [M79.1] INVALID FOR* Anxiety disorder [F41.9] INVALID FOR* Oral mucosal lesion [K13.70] INVALID FOR* Fibromyalgia [M79.7] INVALID FOR* Obesity, Class III, BMI 40-49.9 (morbid obesity*INVALID FOR* Physical deconditioning [R53.81] INVALID FOR* Prescriptions ordered this encounter Disp Refills Start End TRAMADOL 50 MG TABLET 20 t* 0 12/22/2017 01/21/2018 Class: Print RX Route: ORAL Sig: Take 1 tablet by mouth at bedtime as needed for Pain for up to 30 days. For severe low back pain Medications Discontinued During This Encounter traMADol (ULTRAM) 50 mg tablet 20 t* 0 09/16/2017 12/22/2017 Class: Print RX Route: ORAL Sig: Take 1 tablet by mouth at bedtime as needed for Pain for up to 30 days. For severe low back pain Disc: Reason for discontinue is not on file. Encounter Status:Closed by JANIS MISHRA CNP on 12/24/17 PROGRESS Observed: 11/18/2017 Status: COMPLETED Source: [place] 8:47 AM [facility] [place] RE[facility] HNO ID: [id number] Author: Janis Lim (Nadya) Sonja Service: (none) Author Type: Nurse Practitioner Type: Progress Notes Filed: 11/18/2017 9:12 AM Note Text: CC: Sangeetha Tran is a 37 year old female who presents for weight loss medication follow up. HPI Currently taking Adipex. Starting Month 3 of 3 Denies: abdominal pain, nausea, vomiting, diarrhea, fevers, constipation, headache, change in urination, lightheadedness, weakness, numbness or tingling to arms or legs, edema, palpitations, sleep disturbances, impairment of concentration/attention, difficulty with memory, speech or language problems (particularly word-finding difficulties). Treating PCOS and migraines with victoza If DM any hypo/hyperglycemiaNot applicable DIET Serving of fruits:2-3 Servings of vegetables:3-5 Servings of protein:3-5 Fluid intake:Water: 8 -10 glasses per day, V8 energy Do you Skip meals:YES- sometimes Which meals do you tend to skip? Lunch Food Behaviors: none Eating away from home:NO Nutrition consult placed No Exercise routine: NO Not this summer, needs to get back to routine of 3 times a week Weight/BMI Last 1 Encounter Wt Readings: Date: Wt: 11/18/2017 102.5 kg (226 lb) BMI 44.14 kg/(m2) Last visit Wt: 103.4 kg (228 lb) BMI: 44.53 kg/(m2) Weight change since last visit: How much: 2lbs, How lon months ROS as above, otherwise non-contributory. Reviewed PMHx, PSHx, social Hx, medications and allergies. PHYSICAL EXAM BP 104/80 Pulse 72 Resp 16 Wt 102.5 kg (226 lb) BMI 44.14 kg/m? General Appearance: well appearing, in no acute distress, alert, obese Pysch: mood and affect broad and appropriate Lungs: Lungs clear to auscultation. No wheezing, rhonchi, rales Heart: RRR without murmur, gallop, or rubs. No ectopy Abdomen: Abdomen soft, non-tender. Bowel sounds normal. No masses, organomegaly ASSESSMENT/PLAN: 1. Obesity, Class III, BMI 40-49.9 (morbid obesity) (HCC) - ICD9: 278.01, ICD10: E66.01 (primary diagnosis) 2. Polycystic ovary syndrome - ICD9: 256.4, ICD10: E28.2 - Continue diet consisting of counting calories, counting fat grams and counting carbohydrates. Discussed Keto and PSMF diet - Reduce sugary drinks of artificial juices and sodas and replace with water and low calorie Crystal Light. - Healthy Snack alternatives have been discussed and will attempt more fruits and vegetables. - encouraged 3 meals a day - Beginexercise or meaningful activity for 20 minutes at lest 3 times a day PDMP website checked and validated. All prescriptions have been APPROPRIATELY filled. No suspicious activity was identified. 11/18/2017 by Janis Mishra APRN.CNP - reviewed SE, medication expectations, required weight loss of 5%, required monthly monitoring and medication duration of use (3 months on 6 months off) - discussed consult to metabolic and bariatrics - f/u in 1 month - increased victoza Janis Mishra APRN.CNP CNOV Observed: 11/18/2017 Status: COMPLETED Source: [place] 8:40 AM [facility] REPOSITORY Office Visit ([facility]) SANGEETHA TRAN ([id number]) 1980 F Date Time Provider Department 11/18/17 8:40 AM JANIS MISHRA (NADYA) [facility] During your visit today, we recorded the following information about you: Pulse Respiration Blood pressure Weight 72/minute 16/minute 104/80 102.5 kg Janis Mishra APRN.CNP 11/18/2017 9:12 AM Signed CC: Sangeetha Tran is a 37 year old female who presents for weight loss medication follow up. HPI Currently taking Adipex. Starting Month 3 of 3 Denies: abdominal pain, nausea, vomiting, diarrhea, fevers, constipation, headache, change in urination, lightheadedness, weakness, numbness or tingling to arms or legs, edema, palpitations, sleep disturbances, impairment of concentration/attention, difficulty with memory, speech or language problems (particularly word-finding difficulties). Treating PCOS and migraines with victoza If DM any hypo/hyperglycemiaNot applicable DIET Serving of fruits:2-3 Servings of vegetables:3-5 Servings of protein:3-5 Fluid intake:Water: 8 -10 glasses per day, V8 energy Do you Skip meals:YES- sometimes Which meals do you tend to skip? Lunch Food Behaviors: none Eating away from home:NO Nutrition consult placed No Exercise routine: NO Not this summer, needs to get back to routine of 3 times a week Weight/BMI Last 1 Encounter Wt Readings: Date: Wt: 11/18/2017 102.5 kg (226 lb) BMI 44.14 kg/(m2) Last visit Wt: 103.4 kg (228 lb) BMI: 44.53 kg/(m2) Weight change since last visit: How much: 2lbs, How lon months ROS as above, otherwise non-contributory. Reviewed PMHx, PSHx, social Hx, medications and allergies. PHYSICAL EXAM BP 104/80 Pulse 72 Resp 16 Wt 102.5 kg (226 lb) BMI 44.14 kg/m? General Appearance: well appearing, in no acute distress, alert, obese Pysch: mood and affect broad and appropriate Lungs: Lungs clear to auscultation. No wheezing, rhonchi, rales Heart: RRR without murmur, gallop, or rubs. No ectopy Abdomen: Abdomen soft, non-tender. Bowel sounds normal. No masses, organomegaly ASSESSMENT/PLAN: 1. Obesity, Class III, BMI 40-49.9 (morbid obesity) (HCC) - ICD9: 278.01, ICD10: E66.01 (primary diagnosis) 2. Polycystic ovary syndrome - ICD9: 256.4, ICD10: E28.2 - Continue diet consisting of counting calories, counting fat grams and counting carbohydrates. Discussed Keto and PSMF diet - Reduce sugary drinks of artificial juices and sodas and replace with water and low calorie Crystal Light. - Healthy Snack alternatives have been discussed and will attempt more fruits and vegetables. - encouraged 3 meals a day - Beginexercise or meaningful activity for 20 minutes at lest 3 times a day PDMP website checked and validated. All prescriptions have been APPROPRIATELY filled. No suspicious activity was identified. 11/18/2017 by Janis Mishra APRN.NADYA - reviewed SE, medication expectations, required weight loss of 5%, required monthly monitoring and medication duration of use (3 months on 6 months off) - discussed consult to metabolic and bariatrics - f/u in 1 month - increased victoza Janis Mishra APRN.NADYA Referring Provider: JOSE LUIS ROMAN [[id number]] Allergies As of Date: 11/18/2017 Noted Allergy Reaction ALEVE (NAPROXEN SODIUM) 04/28/2007 11 - Vomiting Comments: Ibuprofen without problems Vomiting with Aleve with one time use METFORMIN 01/23/2017 8 - GI Upset PENICILLINS 04/28/2007 7 - Swelling Date Reviewed: 11/18/2017 Reviewed by: Janis Lim (Director Of Public Relations) Sonja - Fully Assessed Reason for Visit: Recheck [92] Cmt: 1 month follow up Primary Visit Diagnosis:Obesity, Class III, BMI 40-49.9 (morbid obesity) (HCC) [E66.01] Other Visit Diagnosis:Polycystic ovary syndrome [E28.2] Order(s):liraglutide (VICTOZA) 0.6 mg/ 0.1 ml subcutaneous pen injectorInject 1.8 mg subcutaneously once daily.Disp: 27 mLRfl: 1 Phentermine HCl (ADIPEX-P) 37.5 mg tabletTake 1 tablet by mouth once daily for 30 days. Body mass index is 44.14 kg/m?.Disp: 30 tabletRfl: 0 Prescriptions as of 11/18/2017 Sig: LIRAGLUTIDE 0.6 MG/0.1 ML (18* Inject 1.8 mg subcutaneously * IBUPROFEN 800 MG TABLET Take 1 tablet by mouth every * LEVOTHYROXINE 88 MCG TABLET Take 1 tablet by mouth once d* TRAMADOL 50 MG TABLET Take 1 tablet by mouth at bed* TRIAMCINOLONE ACETONIDE 0.1 %* Apply 1 application to affect* MAGNESIUM OXIDE 400 MG TABLET take 1 tablet by mouth once d* VITAMIN B-2 100 MG TABLET take 1 tablet by mouth once d* POTASSIUM CHLORIDE ER 10 MEQ * Take 1 tablet by mouth daily * ALBUTEROL SULFATE HFA 90 MCG/* Inhale 2 Puffs as instructed * VITAMIN D3 2,000 UNIT CAPSULE take 1 capsule by mouth once * * VITAMIN B COMPLEX TABLET Take 1 tablet by mouth once d* PHENTERMINE 37.5 MG TABLET Take 1 tablet by mouth once d* DICLOFENAC SODIUM 75 MG TABLE* Take 1 tablet by mouth twice * PEN NEEDLE, DIABETIC 31 GAUGE* Use one needle per dose. 1 pe* Problem List As Of Date 11/18/2017 Noted Resolved Renal calculi [N20.0] INVALID FOR*03/10/2017 Hypothyroidism [E03.9] INVALID FOR* Lumbar disc disease [M51.9] INVALID FOR* Polycystic ovary syndrome [E28.2] INVALID FOR* Rosacea [L71.9] INVALID FOR* Dysmetabolic syndrome [E88.81] INVALID FOR* Abdominal pain, unspecified site [R10.9] INVALID FOR* IBS (irritable bowel syndrome) [K58.9] INVALID FOR* PUD (peptic ulcer disease) [K27.9] INVALID FOR* Bleeding disorder (HCC) [D69.9] INVALID FOR* CADENCE (obstructive sleep apnea) [G47.33] INVALID FOR* Kidney stone [N20.0] INVALID FOR*03/10/2017 Right flank pain [R10.9] INVALID FOR*03/10/2017 Obesity (BMI 30-39.9) [E66.9] INVALID FOR*11/18/2017 Atypical migraine [G43.009] INVALID FOR* Cerebral aneurysm [I67.1] INVALID FOR* Fatigue [R53.83] INVALID FOR* Mouth sores [K13.79] INVALID FOR* Tick bite [W57.XXXA] INVALID FOR*03/10/2017 Myalgia [M79.1] INVALID FOR* Anxiety disorder [F41.9] INVALID FOR* Oral mucosal lesion [K13.70] INVALID FOR* Fibromyalgia [M79.7] INVALID FOR* Obesity, Class III, BMI 40-49.9 (morbid obesity*INVALID FOR* Physical deconditioning [R53.81] INVALID FOR* Prescriptions ordered this encounter Disp Refills Start End LIRAGLUTIDE 0.6 MG/0.1 ML (18 MG/3 M* 27 mL 1 11/18/2017 05/17/2018 Route: SUBCUTANEOUS Sig: Inject 1.8 mg subcutaneously once daily. PHENTERMINE 37.5 MG TABLET 30 t* 0 11/18/2017 12/18/2017 Class: Print RX Route: ORAL Sig: Take 1 tablet by mouth once daily for 30 days. Body mass index is 44.14 kg/m?. Medications Discontinued During This Encounter liraglutide (VICTOZA 2-BRYON) 0.6 mg/0* 1 Pen 5 03/10/2017 11/18/2017 Route: SUBCUTANEOUS Sig: Inject 1.2 mg subcutaneously once daily. Disc: Reason for discontinue is not on file. liraglutide (VICTOZA 2-BRYON) 0.6 mg/0* 6 mL 5 10/12/2017 11/18/2017 Route: SUBCUTANEOUS Sig: Inject 1.2 mg subcutaneously once daily. Disc: Reason for discontinue is not on file. Phentermine HCl (ADIPEX-P) 37.5 mg t* 30 t* 0 10/16/2017 11/18/2017 Class: Print RX Route: ORAL Sig: Take 1 tablet by mouth once daily for 30 days. BMI 44 Disc: Reason for discontinue is not on file. Encounter Status:Closed by JANIS MISHRA CNP on 11/18/17 PROGRESS Observed: 10/16/2017 Status: COMPLETED Source: [place] 10:38 AM [facility] REPOSITORY O ID: [id number] Author: Jose Luis Roman Service: (none) Author Type: Physician Type: Progress Notes Filed: 10/16/2017 10:41 AM Note Text: CC: Sangeetha Tran is a 37 year old female who presents to the office for weight follow up HPI: ? Obesity, just finished 1st month of Adipex, tolerated well, weight 228 lbs, BMI 44. ? Chronic low back pain, xray shows worsening of L5/S1 facet arthritis and degenerative joint and disc disease throughout lumbar spine. Still with b/l leg and thigh aching and weakness and sciatica symptoms, mostly at end of day, worse symptoms with prolonged sitting and bending over, no other bowel or bladder changes. Seeing Chiropractor with some relief Left heel pain, started after recent strain of back, worse in AM, use of tennis ball to stretch and icing ? PAST MEDICAL HISTORY Diagnosis Date - Anxiety - Cerebral aneurysm - Complicated migraine - Endometriosis 75% improvement in abdominal pain post lap surgery - Hypothyroidism - IBS (irritable bowel syndrome) - Insulin resistance - Low HDL (under 40) - Low serum progesterone worsening symptoms with progesterone rx - Lumbar disc disease 05/13/2010 - Migraines - CADENCE (obstructive sleep apnea) Last polysomnogram in 2012, last use in 2012 - Personal history of kidney stones - Polycystic ovary syndrome 06/19/2010 - Protein S deficiency (HCC) 2007 clotting disorder - PUD (peptic ulcer disease) 2009 treated medically, repeat EGD neg in 2014 - Renal calculi 2009 associated to low citric acid, h/o hypercalciuria - Rosacea 06/19/2010 - Vitamin D deficiency PAST SURGICAL HISTORY Procedure Laterality Date - APPENDECTOMY - COLONOSCOP W/ OR W/O BRSH SPEC 08/16/14 Colonoscopy-repeat at 50 - EGD W/O OR W/BRUSH/WASH 08/16/14 EGD - EXPLOR/REMV STONE,RENAL PELVIS 2008 multiple - LAPAROSCOPIC CHOLEYCYSTECTOMY 2003 Cholecystectomy, lap - PAST SURGICAL HISTORY OF Laparoscopy for endometriosis - PAST SURGICAL HISTORY OF dANDc - PAST SURGICAL HISTORY OF wisdom teeth Current Outpatient Prescriptions: ibuprofen (MOTRIN) 800 mg tablet Take 1 tablet by mouth every 6 hours as needed for Pain. Take with food. levothyroxine (SYNTHROID) 88 mcg tablet Take 1 tablet by mouth once daily. and skip 1 day weekly. traMADol (ULTRAM) 50 mg tablet Take 1 tablet by mouth at bedtime as needed for Pain for up to 30 days. For severe low back pain triamcinolone acetonide (KENALOG) 0.1 % cream Apply 1 application to affected area three times daily. For eczema left knee, Apply sparingly to area for rash/itching. diclofenac, EC, (VOLTAREN) 75 mg EC tablet Take 1 tablet by mouth twice daily. For back pain/arthritis, For pain/inflammation. Take with food. magnesium oxide (MAG-OX) 400 mg tablet take 1 tablet by mouth once daily potassium chloride (KLOR-CON 10) 10 mEq tablet Take 1 tablet by mouth daily with breakfast. albuterol HFA (VENTOLIN HFA) 90 mcg/actuation inhaler Inhale 2 Puffs as instructed every 6 hours as needed for Wheezing/Shortness of Breath. VITAMIN D-3 2,000 unit cap take 1 capsule by mouth once daily vitamin b complex (B COMPLETE) Tab Take 1 tablet by mouth once daily. Phentermine HCl (ADIPEX-P) 37.5 mg tablet Take 1 tablet by mouth once daily for 30 days. BMI 44 liraglutide (VICTOZA 2-BRYON) 0.6 mg/0.1 mL (18 mg/3 mL) pnij Inject 1.2 mg subcutaneously once daily. VITAMIN B-2 100 mg tab take 1 tablet by mouth once daily liraglutide (VICTOZA 2-BRYON) 0.6 mg/0.1 mL (18 mg/3 mL) pnij Inject 1.2 mg subcutaneously once daily. insulin needles, DISPOSABLE, (PEN NEEDLE) 31 gauge x 5/16 ndle Use one needle per dose. 1 per day. No current facility-administered medications for this visit. 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 PE: BP 134/80 Pulse 76 Temp (Src) 97.1 (Left Tympanic) Resp 16 Wt 228 lb (103.4kg) Gen: AANDOX3, NAD, non-toxic appearing HEENT: PERRLA, EOMs intact b/l, nares without drainage, pharynx without erythema, exudate, lesions, or drainage. Uvula midline. Neck: No LAD, no thyromegaly, no meningismus. CV: RRR, no murmur Lungs: CTA b/l, no wheezing Skin: No rashes, lesions, or wounds on exposed skin. Heel pain left on plantar surface of foot, negative calcaneal pain with squeeze testing ASSESSMENT/PLAN: 1. Obesity, Class III, BMI 40-49.9 (morbid obesity) (HCC) - ICD9: 278.01, ICD10: E66.01 (primary diagnosis) - 2nd month rx refilled, f/u in office in 1 month and prn - PHENTERMINE 37.5 MG TABLET 2. Right flank pain - ICD9: 789.09, ICD10: R10.9 -chronic, intermittent - IBUPROFEN 800 MG TABLET 3. Intractable left heel pain - ICD9: 729.5, ICD10: M79.672 Related to plantar fasciitis likely, use of ice and stretches and prn ibuprofen as d/w her today Jose Luis Roman DO Return if no improvement. Follow up with Jose Luis Roman DO. Discussed risks, benefits, alternatives, and potential side effects of medications. Patient/Guardian expressed understanding and agreed with the plan. See patient instructions. Jose Luis Roman DO [address] [place] [address] CNOV Observed: 10/16/2017 Status: COMPLETED Source: [place] 10:00 AM [facility] REPOSITORY [facility] SANGE[facility] TRAN ([id number]) 1980 F Date Time Provider Department 10/16/17 10:00 AM JOSE LUIS ROMAN During your visit today, we recorded the following information about you: Temperature Pulse Respiration Blood pressure 97.1 degrees 76/minute 16/minute 134/80 Weight 103.4 kg Jose Luis Roman DO 10/16/2017 10:41 AM Signed CC: Sangeetha Tran is a 37 year old female who presents to the office for weight follow up HPI: ? Obesity, just finished 1st month of Adipex, tolerated well, weight 228 lbs, BMI 44. ? Chronic low back pain, xray shows worsening of L5/S1 facet arthritis and degenerative joint and disc disease throughout lumbar spine. Still with b/l leg and thigh aching and weakness and sciatica symptoms, mostly at end of day, worse symptoms with prolonged sitting and bending over, no other bowel or bladder changes. Seeing Chiropractor with some relief Left heel pain, started after recent strain of back, worse in AM, use of tennis ball to stretch and icing ? PAST MEDICAL HISTORY Diagnosis Date - Anxiety - Cerebral aneurysm - Complicated migraine - Endometriosis 75% improvement in abdominal pain post lap surgery - Hypothyroidism - IBS (irritable bowel syndrome) - Insulin resistance - Low HDL (under 40) - Low serum progesterone worsening symptoms with progesterone rx - Lumbar disc disease 05/13/2010 - Migraines - CADENCE (obstructive sleep apnea) Last polysomnogram in 2012, last use in 2012 - Personal history of kidney stones - Polycystic ovary syndrome 06/19/2010 - Protein S deficiency (HCC) 2007 clotting disorder - PUD (peptic ulcer disease) 2009 treated medically, repeat EGD neg in 2014 - Renal calculi 2009 associated to low citric acid, h/o hypercalciuria - Rosacea 06/19/2010 - Vitamin D deficiency PAST SURGICAL HISTORY Procedure Laterality Date - APPENDECTOMY - COLONOSCOP W/ OR W/O BRSH SPEC 08/16/14 Colonoscopy-repeat at 50 - EGD W/O OR W/BRUSH/WASH 08/16/14 EGD - EXPLOR/REMV STONE,RENAL PELVIS 2008 multiple - LAPAROSCOPIC CHOLEYCYSTECTOMY 2003 Cholecystectomy, lap - PAST SURGICAL HISTORY OF Laparoscopy for endometriosis - PAST SURGICAL HISTORY OF dANDc - PAST SURGICAL HISTORY OF wisdom teeth Current Outpatient Prescriptions: ibuprofen (MOTRIN) 800 mg tablet Take 1 tablet by mouth every 6 hours as needed for Pain. Take with food. levothyroxine (SYNTHROID) 88 mcg tablet Take 1 tablet by mouth once daily. and skip 1 day weekly. traMADol (ULTRAM) 50 mg tablet Take 1 tablet by mouth at bedtime as needed for Pain for up to 30 days. For severe low back pain triamcinolone acetonide (KENALOG) 0.1 % cream Apply 1 application to affected area three times daily. For eczema left knee, Apply sparingly to area for rash/itching. diclofenac, EC, (VOLTAREN) 75 mg EC tablet Take 1 tablet by mouth twice daily. For back pain/arthritis, For pain/inflammation. Take with food. magnesium oxide (MAG-OX) 400 mg tablet take 1 tablet by mouth once daily potassium chloride (KLOR-CON 10) 10 mEq tablet Take 1 tablet by mouth daily with breakfast. albuterol HFA (VENTOLIN HFA) 90 mcg/actuation inhaler Inhale 2 Puffs as instructed every 6 hours as needed for Wheezing/Shortness of Breath. VITAMIN D-3 2,000 unit cap take 1 capsule by mouth once daily vitamin b complex (B COMPLETE) Tab Take 1 tablet by mouth once daily. Phentermine HCl (ADIPEX-P) 37.5 mg tablet Take 1 tablet by mouth once daily for 30 days. BMI 44 liraglutide (VICTOZA 2-BRYON) 0.6 mg/0.1 mL (18 mg/3 mL) pnij Inject 1.2 mg subcutaneously once daily. VITAMIN B-2 100 mg tab take 1 tablet by mouth once daily liraglutide (VICTOZA 2-BRYON) 0.6 mg/0.1 mL (18 mg/3 mL) pnij Inject 1.2 mg subcutaneously once daily. insulin needles, DISPOSABLE, (PEN NEEDLE) 31 gauge x 5/16 ndle Use one needle per dose. 1 per day. No current facility-administered medications for this visit. 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 PE: BP 134/80 Pulse 76 Temp (Src) 97.1 (Left Tympanic) Resp 16 Wt 228 lb (103.4kg) Gen: AANDOX3, NAD, non-toxic appearing HEENT: PERRLA, EOMs intact b/l, nares without drainage, pharynx without erythema, exudate, lesions, or drainage. Uvula midline. Neck: No LAD, no thyromegaly, no meningismus. CV: RRR, no murmur Lungs: CTA b/l, no wheezing Skin: No rashes, lesions, or wounds on exposed skin. Heel pain left on plantar surface of foot, negative calcaneal pain with squeeze testing ASSESSMENT/PLAN: 1. Obesity, Class III, BMI 40-49.9 (morbid obesity) (HCC) - ICD9: 278.01, ICD10: E66.01 (primary diagnosis) - 2nd month rx refilled, f/u in office in 1 month and prn - PHENTERMINE 37.5 MG TABLET 2. Right flank pain - ICD9: 789.09, ICD10: R10.9 -chronic, intermittent - IBUPROFEN 800 MG TABLET 3. Intractable left heel pain - ICD9: 729.5, ICD10: M79.672 Related to plantar fasciitis likely, use of ice and stretches and prn ibuprofen as d/w her today Jose Luis Roman DO Return if no improvement. Follow up with Jose Luis Roman DO. Discussed risks, benefits, alternatives, and potential side effects of medications. Patient/Guardian expressed understanding and agreed with the plan. See patient instructions. Jose Luis Roman DO [address] [place] [address] Referring Provider: JOSE LUIS ROMAN [[id number]] Allergies As of Date: 10/16/2017 Noted Allergy Reaction ALEVE (NAPROXEN SODIUM) 04/28/2007 11 - Vomiting Comments: Ibuprofen without problems Vomiting with Aleve with one time use METFORMIN 01/23/2017 8 - GI Upset PENICILLINS 04/28/2007 7 - Swelling Date Reviewed: 10/16/2017 Reviewed by: Kevin Rivera LPN - Fully Assessed Reason for Visit: Weight Check [196] Cmt: 1 month Primary Visit Diagnosis:Obesity, Class III, BMI 40-49.9 (morbid obesity) ([facility]) [E66.01] Other Visit Diagnoses:Right flank pain [R10.9] Intractable left heel pain [M79.672] Order(s):Phentermine HCl (ADIPEX-P) 37.5 mg tabletTake 1 tablet by mouth once daily for 30 days. BMI 44Disp: 30 tabletRfl: 0 ibuprofen (MOTRIN) 800 mg tabletTake 1 tablet by mouth every 6 hours as needed for Pain. Take with food.Disp: 40 tabletRfl: 3 Prescriptions as of 10/16/2017 Sig: IBUPROFEN 800 MG TABLET Take 1 tablet by mouth every * LEVOTHYROXINE 88 MCG TABLET Take 1 tablet by mouth once d* TRAMADOL 50 MG TABLET Take 1 tablet by mouth at bed* TRIAMCINOLONE ACETONIDE 0.1 %* Apply 1 application to affect* DICLOFENAC SODIUM 75 MG TABLE* Take 1 tablet by mouth twice * MAGNESIUM OXIDE 400 MG TABLET take 1 tablet by mouth once d* POTASSIUM CHLORIDE ER 10 MEQ * Take 1 tablet by mouth daily * ALBUTEROL SULFATE HFA 90 MCG/* Inhale 2 Puffs as instructed * VITAMIN D3 2,000 UNIT CAPSULE take 1 capsule by mouth once * * VITAMIN B COMPLEX TABLET Take 1 tablet by mouth once d* PHENTERMINE 37.5 MG TABLET Take 1 tablet by mouth once d* LIRAGLUTIDE 0.6 MG/0.1 ML (18* Inject 1.2 mg subcutaneously * VITAMIN B-2 100 MG TABLET take 1 tablet by mouth once d* LIRAGLUTIDE 0.6 MG/0.1 ML (18* Inject 1.2 mg subcutaneously * PEN NEEDLE, DIABETIC 31 GAUGE* Use one needle per dose. 1 pe* Problem List As Of Date 10/16/2017 Noted Resolved Renal calculi [N20.0] INVALID FOR*03/10/2017 Hypothyroidism [E03.9] INVALID FOR* Lumbar disc disease [M51.9] INVALID FOR* Polycystic ovary syndrome [E28.2] INVALID FOR* Rosacea [L71.9] INVALID FOR* Dysmetabolic syndrome [E88.81] INVALID FOR* Abdominal pain, unspecified site [R10.9] INVALID FOR* IBS (irritable bowel syndrome) [K58.9] INVALID FOR* PUD (peptic ulcer disease) [K27.9] INVALID FOR* Bleeding disorder (HCC) [D68.9] INVALID FOR* CADENCE (obstructive sleep apnea) [G47.33] INVALID FOR* Kidney stone [N20.0] INVALID FOR*03/10/2017 Right flank pain [R10.9] INVALID FOR*03/10/2017 Obesity (BMI 30-39.9) [E66.9] INVALID FOR* Atypical migraine [G43.009] INVALID FOR* Cerebral aneurysm [I67.1] INVALID FOR* Fatigue [R53.83] INVALID FOR* Mouth sores [K13.79] INVALID FOR* Tick bite [W57.XXXA] INVALID FOR*03/10/2017 Myalgia [M79.1] INVALID FOR* Anxiety disorder [F41.9] INVALID FOR* Oral mucosal lesion [K13.70] INVALID FOR* Fibromyalgia [M79.7] INVALID FOR* Obesity, Class III, BMI 40-49.9 (morbid obesity*INVALID FOR* Physical deconditioning [R53.81] INVALID FOR* Prescriptions ordered this encounter Disp Refills Start End PHENTERMINE 37.5 MG TABLET 30 t* 0 10/16/2017 11/15/2017 Class: Print RX Route: ORAL Sig: Take 1 tablet by mouth once daily for 30 days. BMI 44 IBUPROFEN 800 MG TABLET 40 t* 3 10/16/2017 Route: ORAL Sig: Take 1 tablet by mouth every 6 hours as needed for Pain. Take with food. Medications Discontinued During This Encounter Phentermine HCl (ADIPEX-P) 37.5 mg t* 30 t* 0 09/16/2017 10/16/2017 Class: Print RX Route: ORAL Sig: Take 1 tablet by mouth once daily for 30 days. BMI 44 Disc: Reason for discontinue is not on file. ibuprofen (MOTRIN) 800 mg tablet 40 t* 3 08/17/2017 10/16/2017 Route: ORAL Sig: Take 1 tablet by mouth every 6 hours as needed for Pain. Take with food. Disc: Reason for discontinue is not on file. Encounter Status:Closed by JOSE LUIS ROMAN DO on 10/16/17 PROGRESS Observed: 09/16/2017 Status: COMPLETED Source: [place] 9:17 AM [facility] REPOSITORY HNO ID: [id number] Author: Jose Luis Roman Service: (none) Author Type: Physician Type: Progress Notes Filed: 09/16/2017 10:03 AM Note Text: CC: Sangeetha Tran is a 37 year old female who presents to the office for 1 month follow up HPI: Previously Weight gain: Has noticed since May has been gaining weight. Watches what she eats.Drinks water, no caffienated beverages. Limits fast food, if does it is usually a salad. Not working out as much as used too. Is going to increase exercise. Just finished 1st month of Adipex, tolerated well, previous weight was 227 lbs, currently weight is 225 lbs ?? Right lower abdominal pressure, ?Hx of appendectomy in past. Has had ovarian cysts. ?Was seen in UC, told not a UTI, urine normal. ?Some pressure when urinates, but mostly describes as a sharp intermittent pain in right lower abdomen not related to bowel movements or eating or movements. ?No fevers or chills. ?Normal bowel function ? At follow up ? Hx of insulin resistance, back on Victoza which has controlled symptoms and appetite and sugar cravings in past, tolerating okay ? Shortness of breath and intermittent cough, symptoms for several months, worse at night or with exertion. Had an overall normal Holter and EKG in the past, no lung testing, no hx of asthma, no fevers or chills. ?? No sputum production, does feel symptoms are worse in cold and hot shower etc or when walking outside when it is cold out ? Anxiety attacks, need for refill of Lorazepam, stable ? Left lateral thigh discomfort to touch, started after recent illness, no obvious lump or known injury or fall. ? At last OFFICE VISIT 1 month ago ? Anxiety, increased recently, her and are looking to buy a home, nervous about investment etc and finding good home, has caused increase in her acid reflux symptoms. ? Low back pain, b/l thigh pain and aching discomfort, worse on left side, hx of DJD and DDD lumbar spine, started seeing her chiropractor recently last week to see if that would help her symptoms, no bowel or bladder changes, no paresthesias or numbness/tingling symptoms, no fevers or chills. Worse at end of day, after standing on feet ? + smell disturbance change in the last few weeks ? + fatigue ? ?Currently Obesity, interested in restarting Adipex, tolerated well in past, weight 228 lbs, BMI 44. Chronic low back pain, xray shows worsening of L5/S1 facet arthritis and degenerative joint and disc disease throughout lumbar spine. Still with b/l leg and thigh aching and weakness and sciatica symptoms, mostly at end of day, worse symptoms with prolonged sitting and bending over, no other bowel or bladder changes. PAST MEDICAL HISTORY Diagnosis Date - Anxiety - Cerebral aneurysm - Complicated migraine - Endometriosis 75% improvement in abdominal pain post lap surgery - Hypothyroidism - IBS (irritable bowel syndrome) - Insulin resistance - Low HDL (under 40) - Low serum progesterone worsening symptoms with progesterone rx - Lumbar disc disease 05/13/2010 - Migraines - CADENCE (obstructive sleep apnea) Last polysomnogram in 2012, last use in 2012 - Personal history of kidney stones - Polycystic ovary syndrome 06/19/2010 - Protein S deficiency (HCC) 2007 clotting disorder - PUD (peptic ulcer disease) 2009 treated medically, repeat EGD neg in 2014 - Renal calculi 2008 associated to low citric acid, h/o hypercalciuria - Rosacea 06/19/2010 - Vitamin D deficiency PAST SURGICAL HISTORY Procedure Laterality Date - APPENDECTOMY - COLONOSCOP W/ OR W/O BRSH SPEC 08/16/14 Colonoscopy-repeat at 50 - EGD W/O OR W/BRUSH/WASH 08/16/14 EGD - EXPLOR/REMV STONE,RENAL PELVIS 2008 multiple - LAPAROSCOPIC CHOLEYCYSTECTOMY 2003 Cholecystectomy, lap - PAST SURGICAL HISTORY OF Laparoscopy for endometriosis - PAST SURGICAL HISTORY OF dANDc - PAST SURGICAL HISTORY OF wisdom teeth Current Outpatient Prescriptions: magnesium oxide (MAG-OX) 400 mg tablet take 1 tablet by mouth once daily ibuprofen (MOTRIN) 800 mg tablet Take 1 tablet by mouth every 6 hours as needed for Pain. Take with food. LORazepam (ATIVAN) 0.5 mg tab Take 1 tablet by mouth twice daily as needed (anxiety) for up to 30 days. VITAMIN B-2 100 mg tab take 1 tablet by mouth once daily potassium chloride (KLOR-CON 10) 10 mEq tablet Take 1 tablet by mouth daily with breakfast. albuterol HFA (VENTOLIN HFA) 90 mcg/actuation inhaler Inhale 2 Puffs as instructed every 6 hours as needed for Wheezing/Shortness of Breath. VITAMIN D-3 2,000 unit cap take 1 capsule by mouth once daily levothyroxine (SYNTHROID) 88 mcg tablet TAKE ONE TABLET BY MOUTH ONCE DAILY AND SKIP ONE DAY WEEKLY vitamin b complex (B COMPLETE) Tab Take 1 tablet by mouth once daily. liraglutide (VICTOZA 2-BRYON) 0.6 mg/0.1 mL (18 mg/3 mL) pnij Inject 1.2 mg subcutaneously once daily. insulin needles, DISPOSABLE, (PEN NEEDLE) 31 gauge x 5/16 ndle Use one needle per dose. 1 per day. No current facility-administered medications for this visit. 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 Uvula midline. Neck: No LAD, no thyromegaly, no meningismus. CV: RRR, no murmur Lungs: CTA b/l, no wheezing Skin: No rashes, lesions, or wounds on exposed skin. Obese No spinal TTP, poor lumbar ROM ASSESSMENT/PLAN: 1. DDD (degenerative disc disease), lumbar - ICD9: 722.52, ICD10: M51.36 (primary diagnosis) Chronic low back pain - Warm moist heat for 20 min three times a day - NSAIDS- see orders - TRAMADOL 50 MG TABLET - DICLOFENAC SODIUM 75 MG TABLET,DELAYED RELEASE 2. Lumbar facet arthropathy (HCC) - ICD9: 721.3, ICD10: M46.96 - referral to pain mgmt to see Dr. Trujillo or Dr. Burgos if interested, rare use of Tramadol only for severe pain - TRAMADOL 50 MG TABLET - DICLOFENAC SODIUM 75 MG TABLET,DELAYED RELEASE 3. Other osteoarthritis of spine, lumbar region - ICD9: 721.3, ICD10: M47.896 - see above - TRAMADOL 50 MG TABLET - DICLOFENAC SODIUM 75 MG TABLET,DELAYED RELEASE 4. Lumbar radiculopathy - ICD9: 724.4, ICD10: M54.16 - see above - TRAMADOL 50 MG TABLET - DICLOFENAC SODIUM 75 MG TABLET,DELAYED RELEASE 5. Flexural eczema - ICD9: 691.8, ICD10: L20.82 - Dry skin care instructions reviewed - Use mild soap like Dove, Aveeno or Cetaphil - limit shower/bath to less than 15 minutes with warm, not hot, water - BID use of recommended emollients such as Cetaphil, Eucerin Plus, Aveeno, Aquaphor - Follow up if symptoms persist or worsen. - TRIAMCINOLONE ACETONIDE 0.1 % TOPICAL CREAM 6. Obesity, Class III, BMI 40-49.9 (morbid obesity) (HCC) - ICD9: 278.01, ICD10: E66.01 - Lengthy discussion in office today regarding diet and exercise. Discussed use of small plate to eat meals from, drink 1 glass of water 10-15 minutes prior to eating meal, drink 8 glasses of water daily, eat fresh fruit and vegetable during meal first then lean protein such as grilled/baked chicken breast or fish, limit carbohydrate intake (less pasta, breads, rice and snack foods) as well as limiting sugars (desserts etc). Important to count / track your calories and exercise as well. -1st month rx given today, aware of posisble SE with medicaiton - PHENTERMINE 37.5 MG TABLET 7. Controlled substance agreement signed - ICD9: V58.69, ICD10: Z79.899 Jose Luis Roman DO [facility] website checked and validated. All prescriptions have been APPROPRIATELY filled. No suspicious activity was identified.- 09/16/2017 by Jose Luis Roman DO Return if no improvement. Follow up with Jose Luis Roman DO. Discussed risks, benefits, alternatives, and potential side effects of medications. Patient/Guardian expressed understanding and agreed with the plan. See patient instructions. Jose Luis Roman DO [address] [place] [address] CNOV Observed: 09/16/2017 Status: COMPLETED Source: [place] 9:00 AM [facility] REPOSITORY [facility] SANGEETHA TRAN ([id number]) 1980 F Date Time Provider Department 09/16/17 9:00 AM JOSE LUIS ROMAN During your visit today, we recorded the following information about you: Temperature Pulse Respiration Blood pressure 97.5 degrees 64/minute 16/minute 104/60 Weight 103.4 kg Jose Luis Roman DO 09/16/2017 10:03 AM Signed CC: Sangeetha Tran is a 37 year old female who presents to the office for 1 month follow up HPI: Previously Weight gain: Has noticed since May has been gaining weight. Watches what she eats.Drinks water, no caffienated beverages. Limits fast food, if does it is usually a salad. Not working out as much as used too. Is going to increase exercise. Just finished 1st month of Adipex, tolerated well, previous weight was 227 lbs, currently weight is 225 lbs ?? Right lower abdominal pressure, ?Hx of appendectomy in past. Has had ovarian cysts. ?Was seen in UC, told not a UTI, urine normal. ?Some pressure when urinates, but mostly describes as a sharp intermittent pain in right lower abdomen not related to bowel movements or eating or movements. ?No fevers or chills. ?Normal bowel function ? At follow up ? Hx of insulin resistance, back on Victoza which has controlled symptoms and appetite and sugar cravings in past, tolerating okay ? Shortness of breath and intermittent cough, symptoms for several months, worse at night or with exertion. Had an overall normal Holter and EKG in the past, no lung testing, no hx of asthma, no fevers or chills. ?? No sputum production, does feel symptoms are worse in cold and hot shower etc or when walking outside when it is cold out ? Anxiety attacks, need for refill of Lorazepam, stable ? Left lateral thigh discomfort to touch, started after recent illness, no obvious lump or known injury or fall. ? At last OFFICE VISIT 1 month ago ? Anxiety, increased recently, her and are looking to buy a home, nervous about investment etc and finding good home, has caused increase in her acid reflux symptoms. ? Low back pain, b/l thigh pain and aching discomfort, worse on left side, hx of DJD and DDD lumbar spine, started seeing her chiropractor recently last week to see if that would help her symptoms, no bowel or bladder changes, no paresthesias or numbness/tingling symptoms, no fevers or chills. Worse at end of day, after standing on feet ? + smell disturbance change in the last few weeks ? + fatigue ? ?Currently Obesity, interested in restarting Adipex, tolerated well in past, weight 228 lbs, BMI 44. Chronic low back pain, xray shows worsening of L5/S1 facet arthritis and degenerative joint and disc disease throughout lumbar spine. Still with b/l leg and thigh aching and weakness and sciatica symptoms, mostly at end of day, worse symptoms with prolonged sitting and bending over, no other bowel or bladder changes. PAST MEDICAL HISTORY Diagnosis Date - Anxiety - Cerebral aneurysm - Complicated migraine - Endometriosis 75% improvement in abdominal pain post lap surgery - Hypothyroidism - IBS (irritable bowel syndrome) - Insulin resistance - Low HDL (under 40) - Low serum progesterone worsening symptoms with progesterone rx - Lumbar disc disease 05/13/2010 - Migraines - CADENCE (obstructive sleep apnea) Last polysomnogram in 2012, last use in 2012 - Personal history of kidney stones - Polycystic ovary syndrome 06/19/2010 - Protein S deficiency (HCC) 2007 clotting disorder - PUD (peptic ulcer disease) 2009 treated medically, repeat EGD neg in 2014 - Renal calculi 2008 associated to low citric acid, h/o hypercalciuria - Rosacea 06/19/2010 - Vitamin D deficiency PAST SURGICAL HISTORY Procedure Laterality Date - APPENDECTOMY - COLONOSCOP W/ OR W/O BRSH SPEC 08/16/14 Colonoscopy-repeat at 50 - EGD W/O OR W/BRUSH/WASH 08/16/14 EGD - EXPLOR/REMV STONE,RENAL PELVIS 2008 multiple - LAPAROSCOPIC CHOLEYCYSTECTOMY 2003 Cholecystectomy, lap - PAST SURGICAL HISTORY OF Laparoscopy for endometriosis - PAST SURGICAL HISTORY OF dANDc - PAST SURGICAL HISTORY OF wisdom teeth Current Outpatient Prescriptions: magnesium oxide (MAG-OX) 400 mg tablet take 1 tablet by mouth once daily ibuprofen (MOTRIN) 800 mg tablet Take 1 tablet by mouth every 6 hours as needed for Pain. Take with food. LORazepam (ATIVAN) 0.5 mg tab Take 1 tablet by mouth twice daily as needed (anxiety) for up to 30 days. VITAMIN B-2 100 mg tab take 1 tablet by mouth once daily potassium chloride (KLOR-CON 10) 10 mEq tablet Take 1 tablet by mouth daily with breakfast. albuterol HFA (VENTOLIN HFA) 90 mcg/actuation inhaler Inhale 2 Puffs as instructed every 6 hours as needed for Wheezing/Shortness of Breath. VITAMIN D-3 2,000 unit cap take 1 capsule by mouth once daily levothyroxine (SYNTHROID) 88 mcg tablet TAKE ONE TABLET BY MOUTH ONCE DAILY AND SKIP ONE DAY WEEKLY vitamin b complex (B COMPLETE) Tab Take 1 tablet by mouth once daily. liraglutide (VICTOZA 2-BRYON) 0.6 mg/0.1 mL (18 mg/3 mL) pnij Inject 1.2 mg subcutaneously once daily. insulin needles, DISPOSABLE, (PEN NEEDLE) 31 gauge x 5/16 ndle Use one needle per dose. 1 per day. No current facility-administered medications for this visit. 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 Uvula midline. Neck: No LAD, no thyromegaly, no meningismus. CV: RRR, no murmur Lungs: CTA b/l, no wheezing Skin: No rashes, lesions, or wounds on exposed skin. Obese No spinal TTP, poor lumbar ROM ASSESSMENT/PLAN: 1. DDD (degenerative disc disease), lumbar - ICD9: 722.52, ICD10: M51.36 (primary diagnosis) Chronic low back pain - Warm moist heat for 20 min three times a day - NSAIDS- see orders - TRAMADOL 50 MG TABLET - DICLOFENAC SODIUM 75 MG TABLET,DELAYED RELEASE 2. Lumbar facet arthropathy (HCC) - ICD9: 721.3, ICD10: M46.96 - referral to pain mgmt to see Dr. Trujillo or Dr. Burgos if interested, rare use of Tramadol only for severe pain - TRAMADOL 50 MG TABLET - DICLOFENAC SODIUM 75 MG TABLET,DELAYED RELEASE 3. Other osteoarthritis of spine, lumbar region - ICD9: 721.3, ICD10: M47.896 - see above - TRAMADOL 50 MG TABLET - DICLOFENAC SODIUM 75 MG TABLET,DELAYED RELEASE 4. Lumbar radiculopathy - ICD9: 724.4, ICD10: M54.16 - see above - TRAMADOL 50 MG TABLET - DICLOFENAC SODIUM 75 MG TABLET,DELAYED RELEASE 5. Flexural eczema - ICD9: 691.8, ICD10: L20.82 - Dry skin care instructions reviewed - Use mild soap like Dove, Aveeno or Cetaphil - limit shower/bath to less than 15 minutes with warm, not hot, water - BID use of recommended emollients such as Cetaphil, Eucerin Plus, Aveeno, Aquaphor - Follow up if symptoms persist or worsen. - TRIAMCINOLONE ACETONIDE 0.1 % TOPICAL CREAM 6. Obesity, Class III, BMI 40-49.9 (morbid obesity) (HCC) - ICD9: 278.01, ICD10: E66.01 - Lengthy discussion in office today regarding diet and exercise. Discussed use of small plate to eat meals from, drink 1 glass of water 10- 15 minutes prior to eating meal, drink 8 glasses of water daily, eat fresh fruit and vegetable during meal first then lean protein such as grilled/baked chicken breast or fish, limit carbohydrate intake (less pasta, breads, rice and snack foods) as well as limiting sugars (desserts etc). Important to count / track your calories and exercise as well. -1st month rx given today, aware of posisble SE with medicaiton - PHENTERMINE 37.5 MG TABLET 7. Controlled substance agreement signed - ICD9: V58.69, ICD10: Z79.899 Jose Luis Roman DO [facility] website checked and validated. All prescriptions have been APPROPRIATELY filled. No suspicious activity was identified.- 09/16/2017 by Jose Luis Roman DO Return if no improvement. Follow up with Jose Luis Roman DO. Discussed risks, benefits, alternatives, and potential side effects of medications. Patient/Guardian expressed understanding and agreed with the plan. See patient instructions. Jose Luis Roman DO [address] [place] [address] Referring Provider: SELF [[id number]] Allergies As of Date: 09/16/2017 Noted Allergy Reaction ALEVE (NAPROXEN SODIUM) 04/28/2007 11 - Vomiting Comments: Ibuprofen without problems Vomiting with Aleve with one time use METFORMIN 01/23/2017 8 - GI Upset PENICILLINS 04/28/2007 7 - Swelling Date Reviewed: 09/08/2017 Reviewed by: Zunilda Plascencia Ma - Fully Assessed Reason for Visit: Follow Up [171] Cmt: 1 month Primary Visit Diagnosis:DDD (degenerative disc disease), lumbar [M51.36] Other Visit Diagnoses:Lumbar facet arthropathy ([facility]) [M46.96] Other osteoarthritis of spine, lumbar region [M47.896] Lumbar radiculopathy [M54.16] Flexural eczema [L20.82] Obesity, Class III, BMI 40-49.9 (morbid obesity) ([facility]) [E66.01] Controlled substance agreement signed [Z79.899] Order(s):traMADol (ULTRAM) 50 mg tabletTake 1 tablet by mouth at bedtime as needed for Pain for up to 30 days. For severe low back painDisp: 20 tabletRfl: 0 triamcinolone acetonide (KENALOG) 0.1 % creamApply 1 application to affected area three times daily. For eczema left knee, Apply sparingly to area for rash/itching.Disp: 30 gRfl: 1 Phentermine HCl (ADIPEX-P) 37.5 mg tabletTake 1 tablet by mouth once daily for 30 days. BMI 44Disp: 30 tabletRfl: 0 diclofenac, EC, (VOLTAREN) 75 mg EC tabletTake 1 tablet by mouth twice daily. For back pain/arthritis, For pain/inflammation. Take with food.Disp: 60 tabletRfl: 3 Prescriptions as of 09/16/2017 Sig: MAGNESIUM OXIDE 400 MG TABLET take 1 tablet by mouth once d* IBUPROFEN 800 MG TABLET Take 1 tablet by mouth every * LORAZEPAM 0.5 MG TABLET Take 1 tablet by mouth twice * VITAMIN B-2 100 MG TABLET take 1 tablet by mouth once d* POTASSIUM CHLORIDE ER 10 MEQ * Take 1 tablet by mouth daily * ALBUTEROL SULFATE HFA 90 MCG/* Inhale 2 Puffs as instructed * VITAMIN D3 2,000 UNIT CAPSULE take 1 capsule by mouth once * LEVOTHYROXINE 88 MCG TABLET TAKE ONE TABLET BY MOUTH ONCE* * VITAMIN B COMPLEX TABLET Take 1 tablet by mouth once d* TRAMADOL 50 MG TABLET Take 1 tablet by mouth at bed* TRIAMCINOLONE ACETONIDE 0.1 %* Apply 1 application to affect* PHENTERMINE 37.5 MG TABLET Take 1 tablet by mouth once d* DICLOFENAC SODIUM 75 MG TABLE* Take 1 tablet by mouth twice * LIRAGLUTIDE 0.6 MG/0.1 ML (18* Inject 1.2 mg subcutaneously * PEN NEEDLE, DIABETIC 31 GAUGE* Use one needle per dose. 1 pe* Problem List As Of Date 09/16/2017 Noted Resolved Renal calculi [N20.0] INVALID FOR*03/10/2017 Hypothyroidism [E03.9] INVALID FOR* Lumbar disc disease [M51.9] INVALID FOR* Polycystic ovary syndrome [E28.2] INVALID FOR* Rosacea [L71.9] INVALID FOR* Dysmetabolic syndrome [E88.81] INVALID FOR* Abdominal pain, unspecified site [R10.9] INVALID FOR* IBS (irritable bowel syndrome) [K58.9] INVALID FOR* PUD (peptic ulcer disease) [K27.9] INVALID FOR* Bleeding disorder (HCC) [D68.9] INVALID FOR* CADENCE (obstructive sleep apnea) [G47.33] INVALID FOR* Kidney stone [N20.0] INVALID FOR*03/10/2017 Right flank pain [R10.9] INVALID FOR*03/10/2017 Obesity (BMI 30-39.9) [E66.9] INVALID FOR* Atypical migraine [G43.009] INVALID FOR* Cerebral aneurysm [I67.1] INVALID FOR* Fatigue [R53.83] INVALID FOR* Mouth sores [K13.79] INVALID FOR* Tick bite [W57.XXXA] INVALID FOR*03/10/2017 Myalgia [M79.1] INVALID FOR* Anxiety disorder [F41.9] INVALID FOR* Oral mucosal lesion [K13.70] INVALID FOR* Fibromyalgia [M79.7] INVALID FOR* Obesity, Class III, BMI 40-49.9 (morbid obesity*INVALID FOR* Physical deconditioning [R53.81] INVALID FOR* Prescriptions ordered this encounter Disp Refills Start End TRAMADOL 50 MG TABLET 20 t* 0 09/16/2017 10/16/2017 Class: Print RX Route: ORAL Sig: Take 1 tablet by mouth at bedtime as needed for Pain for up to 30 days. For severe low back pain TRIAMCINOLONE ACETONIDE 0.1 % TOPICA* 30 g 1 09/16/2017 Route: TOPICAL Sig: Apply 1 application to affected area three times daily. For eczema left knee, Apply sparingly to area for rash/itching. PHENTERMINE 37.5 MG TABLET 30 t* 0 09/16/2017 10/16/2017 Class: Print RX Route: ORAL Sig: Take 1 tablet by mouth once daily for 30 days. BMI 44 DICLOFENAC SODIUM 75 MG TABLET,DELAY* 60 t* 3 09/16/2017 Route: ORAL Sig: Take 1 tablet by mouth twice daily. For back pain/arthritis, For pain/inflammation. Take with food. Letter Text [facility], [address] [place] [address] Controlled Substance Agreement GOAL The purpose of this Agreement is to prevent misunderstandings about certain medicines you will be taking for pain management. It will help both you and your doctor to comply with laws regarding controlled pharmaceuticals. I understand that this Agreement is essential to the trust and confidence necessary in a doctor/patient relationship and that my doctor undertakes to treat me based on this Agreement. AGREEMENT I, Dayan Sangeetha Tran, understand that if I break this Agreement, my doctor will stop prescribing these pain-control medicines. In this case, my doctor will taper off the medicine over a period of several days, as necessary, to avoid withdrawal symptoms. A drug-dependence treatment program may be recommended. In certain cases, you may be terminated as a patient. 1. I will communicate fully with my doctor about the character and intensity of my pain, its effect on my daily life, and how well the medicine is helping to relieve the pain. 2. I will not use any illegal controlled substances, including marijuana, cocaine, etc. Random urine and/or serum toxicology screens may be requested; this testing may be unannounced and occur at any time. I agree that I will submit to a blood or urine test if requested by my doctor to determine my compliance with my program of pain control medicine. 3. I will not share, sell or trade my medication with anyone. 4. I will not attempt to obtain any controlled substance from any other doctor, other than a covering physician. 5. I will safeguard my pain medicine from loss or theft. Lost or stolen medicines may not be replaced. 6. I agree that refills of my prescriptions for pain medicine will be made only at the time of an office visit or during regular office hours. No refills will be available on evenings or weekends. 7. I authorize the doctor and my pharmacy to cooperate fully with any city, state or federal law enforcement agency, including this state's Board of Pharmacy, in the investigation of any possible misuse, sale, or other diversion of my medication. I authorize my doctor to provide a copy of this Agreement to my pharmacy. I agree to waive any applicable privilege or right of privacy or confidentiality with respect to these authorizations. Pharmacy: Location: Phone number: [phone]. I agree that I will use my medicine at a rate no greater than the prescribed rate and that use of my medicine at a greater rate may result in my being without medication for a period of time. 9. If legal authorities have questions concerning treatment, for example, if a patient were obtaining medications at several pharmacies, all confidentiality is waived and the authorities may be given full access to the [facility] Records of narcotic administration. 10. I agree to follow these guidelines and they have been fully explained to me. All of my questions and concerns regarding treatment have been answered. A copy of this document has been given to me. Patient: Date: September 16, 2017 Sangeetha Tran [id number] Physician: Date: September 16, 2017 Jose Luis Roman DO Encounter Status:Closed by JOSE LUIS ROMAN DO on 09/16/17 XR LUMBAR 3V Observed: 09/15/2017 Status: F Source: [place] AP/LAT/L5-S1 9:03 AM [facility] REPOSITORY * * *Final Report* * * DATE OF EXAM: Sep 15 2017 9:03AM WRX [id number] - XR LUMBAR 3V AP/LAT/L5-S1 / PROCEDURE REASON: multiple diagnoses * * * * Physician Interpretation * * * * EXAM: LUMBAR SPINE, 3 VIEWS CLINICAL: 37-year-old female with TECHNIQUE: AP, lateral coned down lateral COMPARISON: 07/02/2015 . RESULTS: Counting reference: The iliac crest level is considered L4.L5 or the first vertebrae proximal to the sacrum is considered L5. Disc space narrowing L2/L3, L4/L5 with osteophytes anteriorly throughout the lumbar spine. Vertebral bodies and pedicles are intact. Facet degenerative changes which is mild at L5/S1 . Limbus vertebrae at L5. Surgical clips in right upper quadrant. IMPRESSION: DEGENERATIVE DISC DISEASE PROGRESSED SINCE THE PREVIOUS EXAMINATION. Metal Products Viewer: PSCB Transcribe Date/Time: Sep 15 2017 3:06P Dictated by : LATESHA RAMÍREZ MD This examination was interpreted and the report reviewed and electronically signed by: LATESHA RAMÍREZ MD on Sep 15 2017 3:08PM EST [id number] Observed: 09/15/2017 Status: COMPLETED Source: [place] 8:48 AM [facility] REPOSITORY HNO ID: [id number] Author: Forrest Jarquin (Rt) Service: (none) Author Type: Investigative Analyst Type: Progress Notes Filed: 09/15/2017 9:03 AM Note Text: Radiology Service Progress Note PATIENT NAME: Sangeetha Tran DATE OF SERVICE: September 15, 2017 TIME: 8:48 AM PATIENT IDENTITY VERIFICATION COMPLETED USING TWO (2) METHODS: Patient confirmed name verbally and Date of . PATIENT GENDER DATA: Female. status: : No status: NO. PATIENT RELEVANT IMPLANT DATA REVIEWED: Not Applicable RADIOLOGY DEPARTMENT: General X-ray: Exam(s) Completed: Spine X-Ray(s): Lumbar AP / LAT / L5-S1 PERIPHERAL IV DATA: Not applicable SIGNED BY: RT Britton September 15, 2017 8:48 AM PROGRESS Observed: 09/08/2017 Status: COMPLETED Source: [place] 3:08 PM [facility] [place] REPOSITORY HNO ID: [id number] Author: Wil Mancia Service: (none) Author Type: Nurse Practitioner Type: Progress Notes Filed: 09/14/2017 3:10 PM Note Text: Subjective HPI Patient presents with: Eye Problem: itching x 1 day Denies known exposure to strep. Denies URI symptoms. Review of Systems Constitutional: Negative for chills and fever. HENT: Negative for congestion. Eyes: Positive for discharge and redness (itching). Negative for blurred vision, double vision, photophobia and pain. Respiratory: Negative for cough. Neurological: Negative for headaches. PAST MEDICAL HISTORY Diagnosis Date - Anxiety - Cerebral aneurysm - Complicated migraine - Endometriosis 75% improvement in abdominal pain post lap surgery - Hypothyroidism - IBS (irritable bowel syndrome) - Insulin resistance - Low HDL (under 40) - Low serum progesterone worsening symptoms with progesterone rx - Lumbar disc disease 05/13/2010 - Migraines - CADENCE (obstructive sleep apnea) Last polysomnogram in 2012, last use in 2012 - Personal history of kidney stones - Polycystic ovary syndrome 06/19/2010 - Protein S deficiency (HCC) 2007 clotting disorder - PUD (peptic ulcer disease) 2009 treated medically, repeat EGD neg in 2014 - Renal calculi 2009 associated to low citric acid, h/o hypercalciuria - Rosacea 06/19/2010 - Vitamin D deficiency PAST SURGICAL HISTORY Procedure Laterality Date - APPENDECTOMY - COLONOSCOP W/ OR W/O BRSH SPEC 08/16/14 Colonoscopy-repeat at 50 - EGD W/O OR W/BRUSH/WASH 08/16/14 EGD - EXPLOR/REMV STONE,RENAL PELVIS 2008 multiple - LAPAROSCOPIC CHOLEYCYSTECTOMY 2004 Cholecystectomy, lap - PAST SURGICAL HISTORY OF Laparoscopy for endometriosis - PAST SURGICAL HISTORY OF dANDc - PAST SURGICAL HISTORY OF wisdom teeth ALLERGIES Aleve [Naproxen Sodium]; Metformin; Penicillins MEDICATIONS magnesium oxide (MAG-OX) 400 mg tablet take 1 tablet by mouth once daily ibuprofen (MOTRIN) 800 mg tablet Take 1 tablet by mouth every 6 hours as needed for Pain. Take with food. LORazepam (ATIVAN) 0.5 mg tab Take 1 tablet by mouth twice daily as needed (anxiety) for up to 30 days. VITAMIN B-2 100 mg tab take 1 tablet by mouth once daily potassium chloride (KLOR-CON 10) 10 mEq tablet Take 1 tablet by mouth daily with breakfast. albuterol HFA (VENTOLIN HFA) 90 mcg/actuation inhaler Inhale 2 Puffs as instructed every 6 hours as needed for Wheezing/Shortness of Breath. VITAMIN D-3 2,000 unit cap take 1 capsule by mouth once daily liraglutide (VICTOZA 2-BRYON) 0.6 mg/0.1 mL (18 mg/3 mL) pnij Inject 1.2 mg subcutaneously once daily. insulin needles, DISPOSABLE, (PEN NEEDLE) 31 gauge x 5/16 ndle Use one needle per dose. 1 per day. levothyroxine (SYNTHROID) 88 mcg tablet TAKE ONE TABLET BY MOUTH ONCE DAILY AND SKIP ONE DAY WEEKLY vitamin b complex (B COMPLETE) Tab Take 1 tablet by mouth once daily. trimethoprim-polymyxin eye drops (POLYTRIM) ophthalmic solution Use 2 Drops in both eyes four times daily for 7 days. Use in the affected eye. FAMILY HISTORY Problem Relation Age of Onset - Breast Cancer Mother 39 - Arthritis Mother Fibromyalgia - irregular heartbeat [OTHER] Mother - Hypertension Maternal Grandmother - Alzheimer's Disease Maternal Grandmother - Arthritis Maternal Grandmother - dementia [OTHER] Maternal Grandmother - Diabetes Brother type 1 - Stroke Maternal Grandfather Social History Substance Use Topics - Smoking status: Never Smoker - Smokeless tobacco: Never Used - Alcohol use Yes Comment: twice a year-socially Objective Physical Exam Constitutional: She is well-developed, well-nourished, and in no distress. HENT: Head: Normocephalic. Mouth/Throat: Oropharynx is clear and moist. Eyes: EOM are normal. Pupils are equal, round, and reactive to light. Right eye exhibits discharge. Left eye exhibits discharge. Right conjunctiva is injected. Left conjunctiva is injected. Visual acuity intact Neck: Normal range of motion. Neck supple. Lymphadenopathy: She has no cervical adenopathy. Nursing note and vitals reviewed. ASSESSMENT/PLAN: 1. Acute conjunctivitis of both eyes, unspecified acute conjunctivitis type - ICD9: 372.00, ICD10: H10.33 - see medication orders - course and contagiousness issues discussed, including hand washing. - Instructed to call if high fever, development of periorbital redness or swelling, eye pain, visual changes, concerns or if symptoms persist. Prescription instructions reviewed with patient as applicable. Patient advised if symptoms do not improve or if symptoms worsen sooner, to contact their primary care physician. Potential red flag symptoms discussed with the patient. Reviewed appropriate action plan to take if red flag symptoms occur. Patient agreeable to treatment plan. Wil Mancia APRN.HOOP MAKER MACHINE CNOV Observed: 09/08/2017 Status: COMPLETED Source: [place] 9:45 AM [facility] REPOSITORY Office Visit (WSTR) SANGEETHA TRAN ([id number]) 1980 F Date Time Provider Department 09/08/17 9:45 AM WIL MANCIA (NURSE MIDWIFE) [facility] During your visit today, we recorded the following information about you: Temperature Pulse Respiration Blood pressure 98.4 degrees 74/minute 16/minute 122/80 Weight 103 kg Wil Mancia APRN.CNP 09/08/2017 9:52 AM Signed CONJUNCTIVITIS GENERAL INFORMATION: Conjunctivitis is also known as pink eye. It is an irritation of the underside of the eyelid and the white part of the eye. Conjunctivitis can be caused by infection, chemical irritation, or allergy. If infectious, it is very contagious. INSTRUCTIONS: The doctor has prescribed antibiotic drops or ointment. Use them as prescribed. Do not touch the dropper to the eye. Throw out the medication after completing treatment. If the doctor only prescribed the medication to be placed in one eye, and the other eye starts to bother you with the same symptoms, you may treat it in the same fashion. To ease discomfort, apply a warm or cool clean washcloth to your eye several times a day for 10 to 20 minutes. Gently wipe away discharge from the eyes with tissues. Wash your hands often with soap and use paper towels to dry them. Do not share towels, washcloths, or pillows. This could spread infection. Do not use eye make-up until the infection has resolved. Keep contact lenses out of eyes until the irritation is gone. Discard any eye make-up which you may have contaminated before the infection was diagnosed, and any eye make-up older than one year. Children should not return to school or daycare until the eye is no longer pink. Do not drive or operate machinery if your vision is blurred. Wear sunglasses if your eyes are sensitive to the light. CONTACT YOUR DOCTOR IF YOU OR YOUR CHILD NOTICE: *The eye is still pink 3 days after starting treatment with medicine. *Pain in the eye increases. *The redness is spreading. *Vision becomes blurred. *You have a temperature over 100.5 F (38 C). Wil Mancia APRN.HOOP MAKER MACHINE 09/14/2017 3:10 PM Signed Subjective HPI Patient presents with: Eye Problem: itching x 1 day Denies known exposure to strep. Denies URI symptoms. Review of Systems Constitutional: Negative for chills and fever. HENT: Negative for congestion. Eyes: Positive for discharge and redness (itching). Negative for blurred vision, double vision, photophobia and pain. Respiratory: Negative for cough. Neurological: Negative for headaches. PAST MEDICAL HISTORY Diagnosis Date - Anxiety - Cerebral aneurysm - Complicated migraine - Endometriosis 75% improvement in abdominal pain post lap surgery - Hypothyroidism - IBS (irritable bowel syndrome) - Insulin resistance - Low HDL (under 40) - Low serum progesterone worsening symptoms with progesterone rx - Lumbar disc disease 05/13/2010 - Migraines - CADENCE (obstructive sleep apnea) Last polysomnogram in 2012, last use in 2012 - Personal history of kidney stones - Polycystic ovary syndrome 06/19/2010 - Protein S deficiency (HCC) 2007 clotting disorder - PUD (peptic ulcer disease) 2009 treated medically, repeat EGD neg in 2014 - Renal calculi 2009 associated to low citric acid, h/o hypercalciuria - Rosacea 06/19/2010 - Vitamin D deficiency PAST SURGICAL HISTORY Procedure Laterality Date - APPENDECTOMY - COLONOSCOP W/ OR W/O [facility] SPEC 08/16/14 Colonoscopy-repeat at 50 - EGD W/O OR W/BRUSH/WASH 08/16/14 EGD - EXPLOR/REMV STONE,RENAL PELVIS 2008 multiple - LAPAROSCOPIC CHOLEYCYSTECTOMY 2003 Cholecystectomy, lap - PAST SURGICAL HISTORY OF Laparoscopy for endometriosis - PAST SURGICAL HISTORY OF dANDc - PAST SURGICAL HISTORY OF wisdom teeth ALLERGIES Aleve [Naproxen Sodium]; Metformin; Penicillins MEDICATIONS magnesium oxide (MAG-OX) 400 mg tablet take 1 tablet by mouth once daily ibuprofen (MOTRIN) 800 mg tablet Take 1 tablet by mouth every 6 hours as needed for Pain. Take with food. LORazepam (ATIVAN) 0.5 mg tab Take 1 tablet by mouth twice daily as needed (anxiety) for up to 30 days. VITAMIN B-2 100 mg tab take 1 tablet by mouth once daily potassium chloride (KLOR-CON 10) 10 mEq tablet Take 1 tablet by mouth daily with breakfast. albuterol HFA (VENTOLIN HFA) 90 mcg/actuation inhaler Inhale 2 Puffs as instructed every 6 hours as needed for Wheezing/Shortness of Breath. VITAMIN D-3 2,000 unit cap take 1 capsule by mouth once daily liraglutide (VICTOZA 2-BRYON) 0.6 mg/0.1 mL (18 mg/3 mL) pnij Inject 1.2 mg subcutaneously once daily. insulin needles, DISPOSABLE, (PEN NEEDLE) 31 gauge x 5/16 ndle Use one needle per dose. 1 per day. levothyroxine (SYNTHROID) 88 mcg tablet TAKE ONE TABLET BY MOUTH ONCE DAILY AND SKIP ONE DAY WEEKLY vitamin b complex (B COMPLETE) Tab Take 1 tablet by mouth once daily. trimethoprim-polymyxin eye drops (POLYTRIM) ophthalmic solution Use 2 Drops in both eyes four times daily for 7 days. Use in the affected eye. FAMILY HISTORY Problem Relation Age of Onset - Breast Cancer Mother 39 - Arthritis Mother Fibromyalgia - irregular heartbeat [OTHER] Mother - Hypertension Maternal Grandmother - Alzheimer's Disease Maternal Grandmother - Arthritis Maternal Grandmother - dementia [OTHER] Maternal Grandmother - Diabetes Brother type 1 - Stroke Maternal Grandfather Social History Substance Use Topics - Smoking status: Never Smoker - Smokeless tobacco: Never Used - Alcohol use Yes Comment: twice a year-socially Objective Physical Exam Constitutional: She is well-developed, well-nourished, and in no distress. HENT: Head: Normocephalic. Mouth/Throat: Oropharynx is clear and moist. Eyes: EOM are normal. Pupils are equal, round, and reactive to light. Right eye exhibits discharge. Left eye exhibits discharge. Right conjunctiva is injected. Left conjunctiva is injected. Visual acuity intact Neck: Normal range of motion. Neck supple. Lymphadenopathy: She has no cervical adenopathy. Nursing note and vitals reviewed. ASSESSMENT/PLAN: 1. Acute conjunctivitis of both eyes, unspecified acute conjunctivitis type - ICD9: 372.00, ICD10: H10.33 - see medication orders - course and contagiousness issues discussed, including hand washing. - Instructed to call if high fever, development of periorbital redness or swelling, eye pain, visual changes, concerns or if symptoms persist. Prescription instructions reviewed with patient as applicable. Patient advised if symptoms do not improve or if symptoms worsen sooner, to contact their primary care physician. Potential red flag symptoms discussed with the patient. Reviewed appropriate action plan to take if red flag symptoms occur. Patient agreeable to treatment plan. Wil Mancia APRN.HOOP MAKER MACHINE Referring Provider: SELF [[id number]] Allergies As of Date: 09/08/2017 Noted Allergy Reaction ALEVE (NAPROXEN SODIUM) 04/28/2007 11 - Vomiting Comments: Ibuprofen without problems Vomiting with Aleve with one time use METFORMIN 01/23/2017 8 - GI Upset PENICILLINS 04/28/2007 7 - Swelling Date Reviewed: 09/08/2017 Reviewed by: Zunilda Plascencia Ma - Fully Assessed Reason for Visit: Eye Problem [43] Cmt: itching x 1 day Primary Visit Diagnosis:Acute conjunctivitis of both eyes, unspecified acute conjunctivitis type [H10.33] Order(s):trimethoprim-polymyxin eye drops (POLYTRIM) ophthalmic solutionUse 2 Drops in both eyes four times daily for 7 days. Use in the affected eye.Disp: 2.8 mLRfl: 0 Prescriptions as of 09/08/2017 Sig: MAGNESIUM OXIDE 400 MG TABLET take 1 tablet by mouth once d* IBUPROFEN 800 MG TABLET Take 1 tablet by mouth every * LORAZEPAM 0.5 MG TABLET Take 1 tablet by mouth twice * VITAMIN B-2 100 MG TABLET take 1 tablet by mouth once d* POTASSIUM CHLORIDE ER 10 MEQ * Take 1 tablet by mouth daily * ALBUTEROL SULFATE HFA 90 MCG/* Inhale 2 Puffs as instructed * VITAMIN D3 2,000 UNIT CAPSULE take 1 capsule by mouth once * LIRAGLUTIDE 0.6 MG/0.1 ML (18* Inject 1.2 mg subcutaneously * PEN NEEDLE, DIABETIC 31 GAUGE* Use one needle per dose. 1 pe* LEVOTHYROXINE 88 MCG TABLET TAKE ONE TABLET BY MOUTH ONCE* * VITAMIN B COMPLEX TABLET Take 1 tablet by mouth once d* POLYMYXIN B SULFATE 10,000 UN* Use 2 Drops in both eyes four* Problem List As Of Date 09/08/2017 Noted Resolved Renal calculi [N20.0] INVALID FOR*03/10/2017 Hypothyroidism [E03.9] INVALID FOR* Lumbar disc disease [M51.9] INVALID FOR* Polycystic ovary syndrome [E28.2] INVALID FOR* Rosacea [L71.9] INVALID FOR* Dysmetabolic syndrome [E88.81] INVALID FOR* Abdominal pain, unspecified site [R10.9] INVALID FOR* IBS (irritable bowel syndrome) [K58.9] INVALID FOR* PUD (peptic ulcer disease) [K27.9] INVALID FOR* Bleeding disorder (HCC) [D68.9] INVALID FOR* CADENCE (obstructive sleep apnea) [G47.33] INVALID FOR* Kidney stone [N20.0] INVALID FOR*03/10/2017 Right flank pain [R10.9] INVALID FOR*03/10/2017 Obesity (BMI 30-39.9) [E66.9] INVALID FOR* Atypical migraine [G43.009] INVALID FOR* Cerebral aneurysm [I67.1] INVALID FOR* Fatigue [R53.83] INVALID FOR* Mouth sores [K13.79] INVALID FOR* Tick bite [W57.XXXA] INVALID FOR*03/10/2017 Myalgia [M79.1] INVALID FOR* Anxiety disorder [F41.9] INVALID FOR* Oral mucosal lesion [K13.70] INVALID FOR* Fibromyalgia [M79.7] INVALID FOR* Obesity, Class III, BMI 40-49.9 (morbid obesity*INVALID FOR* Physical deconditioning [R53.81] INVALID FOR* Other instructions from your clinician: CONJUNCTIVITIS GENERAL INFORMATION: Conjunctivitis is also known as pink eye. It is an irritation of the underside of the eyelid and the white part of the eye. Conjunctivitis can be caused by infection, chemical irritation, or allergy. If infectious, it is very contagious. INSTRUCTIONS: The doctor has prescribed antibiotic drops or ointment. Use them as prescribed. Do not touch the dropper to the eye. Throw out the medication after completing treatment. If the doctor only prescribed the medication to be placed in one eye, and the other eye starts to bother you with the same symptoms, you may treat it in the same fashion. To ease discomfort, apply a warm or cool clean washcloth to your eye several times a day for 10 to 20 minutes. Gently wipe away discharge from the eyes with tissues. Wash your hands often with soap and use paper towels to dry them. Do not share towels, washcloths, or pillows. This could spread infection. Do not use eye make-up until the infection has resolved. Keep contact lenses out of eyes until the irritation is gone. Discard any eye make-up which you may have contaminated before the infection was diagnosed, and any eye make-up older than one year. Children should not return to school or daycare until the eye is no longer pink. Do not drive or operate machinery if your vision is blurred. Wear sunglasses if your eyes are sensitive to the light. CONTACT YOUR DOCTOR IF YOU OR YOUR CHILD NOTICE: *The eye is still pink 3 days after starting treatment with medicine. *Pain in the eye increases. *The redness is spreading. *Vision becomes blurred. *You have a temperature over 100.5 F (38 C). Prescriptions ordered this encounter Disp Refills Start End POLYMYXIN B SULFATE 10,000 UNIT-TRIM* 2.8 * 0 09/08/2017 09/15/2017 Route: BOTH EYES Sig: Use 2 Drops in both eyes four times daily for 7 days. Use in the affected eye. Disposition: Return if symptoms worsen or fail to improve. Follow-up and Disposition History Recorded Encounter Status:Closed by WIL MANCIA on 09/14/17 SED RATE WESTERGREN Collected: 09/08/2017 Status: F Source: [place] 9:29 AM [facility] REPOSITORY TYPE CODE TESTS RESULT OUT OF REFERENCE UNITS RANGE LAB WSR 0-20 mm/hr Sed Rate Westergren 10 Performed By: #### WSR, CK, CRP, TSH, FT4, B12, VITD #### [facility] [employer] [address] [place] [id number] CK Collected: 09/08/2017 Status: F Source: [facility] 9:29 AM [facility] [place] REPOSITORY TYPE CODE TESTS RESULT OUT OF RANGE REFERENCE UNITS LAB CK 42-196 U/L CK 52 Result Comment: Please note the updated, gender-specific reference range for this test (effective 04/10/2016). Performed By: #### WSR, CK, CRP, TSH, FT4, B12, VITD #### [facility] [employer] [address] [place] [address] C-REACTIVE PROTEIN Collected: 09/08/2017 Status: F Source: [place] 9:29 AM [facility] REPOSITORY TYPE CODE TESTS RESULT OUT OF REFERENCE UNITS RANGE LAB CRP <0.9 mg/dL C-Reactive 0.5 Protein Performed By: #### WSR, CK, CRP, TSH, FT4, B12, VITD #### [facility] [address] [place] [address] TSH Collected: 09/08/2017 Status: F Source: [place] 9:29 AM [facility] REPOSITORY TYPE CODE TESTS RESULT OUT OF RANGE REFERENCE UNITS LAB TSH 0.400-5.500 uU/mL TSH 0.655 Result Comment: If the patient is , TSH reference range varies by gestational period: First Trimester 0.100-2.500 uU/mL Second Trimester 0.200-3.000 uU/mL Third Trimester 0.300-3.000 uU/mL References: 1. Snow L, Violetta M, Gordon EK, et al. Management of Thyroid Dysfunction during and : An Endocrine Society Clinical Practice Guideline. J Clin Endocrinol Metab, 2012:97:3671-9615. 2. Lambert OLIVA. Overview of thyroid disease in . UpToDate. 2016. Accessed on October 12, 2015. Performed By: #### WSR, CK, CRP, TSH, FT4, B12, VITD #### [facility] [employer] [address] [place] [address] FREE T4 Collected: 09/08/2017 Status: F Source: [place] 9:29 AM [facility] REPOSITORY TYPE CODE TESTS RESULT OUT OF RANGE REFERENCE UNITS LAB FT4 0.9-1.7 ng/dL Free T4 1.3 Performed By: #### WSR, CK, CRP, TSH, FT4, B12, VITD #### [facility] [employer] [address] [place], [place] [address] VITAMIN B12 Collected: 09/08/2017 Status: F Source: [place] 9:29 AM [facility] REPOSITORY TYPE CODE TESTS RESULT OUT OF REFERENCE UNITS RANGE LAB B12 232-1245 pg/mL Vitamin B12 699 Performed By: #### WSR, CK, CRP, TSH, FT4, B12, VITD #### [facility] [employer] [address] [place], [place] [address] VITAMIN D 25 HYDROXY Collected: 09/08/2017 Status: F Source: [place] 9:29 AM [facility] REPOSITORY TYPE CODE TESTS RESULT OUT OF REFERENCE UNITS RANGE LAB VITD 31.0-80.0 ng/mL Low Vitamin D 25 30.0 Hydroxy Result Comment: Classification of 25 [place] Vitamin D status: Insufficiency/Moderate Deficiency: < or = 30 ng/mL Sufficiency/Optimal Levels: 31 to 80 ng/mL Toxicity: > 100 ng/mL Test performed by chemiluminescent immunoassay. Performed By: #### WSR, CK, CRP, TSH, FT4, B12, VITD #### [facility] [employer] [address] [place], [place] [address] PROGRESS Observed: 08/17/2017 Status: COMPLETED Source: [place] 10:11 AM [facility] REPOSITORY HNO ID: [id number] Author: Jose Luis Roman Service: (none) Author Type: Physician Type: Progress Notes Filed: 08/17/2017 10:16 AM Note Text: CC: Sangeetha Tran is a 37 year old female who presents to the office for 3 months follow up HPI: Previously Weight gain: Has noticed since May has been gaining weight. Watches what she eats.Drinks water, no caffienated beverages. Limits fast food, if does it is usually a salad. Not working out as much as used too. Is going to increase exercise. Just finished 1st month of Adipex, tolerated well, previous weight was 227 lbs, currently weight is 225 lbs ?? Right lower abdominal pressure, ?Hx of appendectomy in past. Has had ovarian cysts. ?Was seen in UC, told not a UTI, urine normal. ?Some pressure when urinates, but mostly describes as a sharp intermittent pain in right lower abdomen not related to bowel movements or eating or movements. ?No fevers or chills. ?Normal bowel function ? At last OFFICE VISIT 3 months ago ? Hx of insulin resistance, back on Victoza which has controlled symptoms and appetite and sugar cravings in past, tolerating okay ? Shortness of breath and intermittent cough, symptoms for several months, worse at night or with exertion. Had an overall normal Holter and EKG in the past, no lung testing, no hx of asthma, no fevers or chills. No sputum production, does feel symptoms are worse in cold and hot shower etc or when walking outside when it is cold out ? Anxiety attacks, need for refill of Lorazepam, stable Left lateral thigh discomfort to touch, started after recent illness, no obvious lump or known injury or fall. Currently Anxiety, increased recently, her and are looking to buy a home, nervous about investment etc and finding good home, has caused increase in her acid reflux symptoms. Low back pain, b/l thigh pain and aching discomfort, worse on left side, hx of DJD and DDD lumbar spine, started seeing her chiropractor recently last week to see if that would help her symptoms, no bowel or bladder changes, no paresthesias or numbness/tingling symptoms, no fevers or chills. Worse at end of day, after standing on feet + smell disturbance change in the last few weeks + fatigue PAST MEDICAL HISTORY Diagnosis Date - Anxiety - Cerebral aneurysm - Complicated migraine - Endometriosis 75% improvement in abdominal pain post lap surgery - Hypothyroidism - IBS (irritable bowel syndrome) - Insulin resistance - Low HDL (under 40) - Low serum progesterone worsening symptoms with progesterone rx - Lumbar disc disease 05/13/2010 - Migraines - CADENCE (obstructive sleep apnea) Last polysomnogram in 2012, last use in 2012 - Personal history of kidney stones - Polycystic ovary syndrome 06/19/2010 - Protein S deficiency (HCC) 2007 clotting disorder - PUD (peptic ulcer disease) 2009 treated medically, repeat EGD neg in 2014 - Renal calculi 2009 associated to low citric acid, h/o hypercalciuria - Rosacea 06/19/2010 - Vitamin D deficiency PAST SURGICAL HISTORY Procedure Laterality Date - APPENDECTOMY - COLONOSCOP W/ OR W/O [facility] SPEC 08/16/14 Colonoscopy-repeat at 50 - EGD W/O OR W/BRUSH/WASH 08/16/14 EGD - EXPLOR/REMV STONE,RENAL PELVIS 2009 multiple - LAPAROSCOPIC CHOLEYCYSTECTOMY 2003 Cholecystectomy, lap - PAST SURGICAL HISTORY OF Laparoscopy for endometriosis - PAST SURGICAL HISTORY OF dANDc - PAST SURGICAL HISTORY OF wisdom teeth Current Outpatient Prescriptions: ibuprofen (MOTRIN) 800 mg tablet Take 1 tablet by mouth every 6 hours as needed for Pain. Take with food. VITAMIN B-2 100 mg tab take 1 tablet by mouth once daily potassium chloride (KLOR-CON 10) 10 mEq tablet Take 1 tablet by mouth daily with breakfast. albuterol HFA (VENTOLIN HFA) 90 mcg/actuation inhaler Inhale 2 Puffs as instructed every 6 hours as needed for Wheezing/Shortness of Breath. VITAMIN D-3 2,000 unit cap take 1 capsule by mouth once daily liraglutide (VICTOZA 2-BRYON) 0.6 mg/0.1 mL (18 mg/3 mL) pnij Inject 1.2 mg subcutaneously once daily. insulin needles, DISPOSABLE, (PEN NEEDLE) 31 gauge x 5/16 ndle Use one needle per dose. 1 per day. magnesium oxide (MAG-OX) 400 mg tablet take 1 tablet by mouth once daily levothyroxine (SYNTHROID) 88 mcg tablet TAKE ONE TABLET BY MOUTH ONCE DAILY AND SKIP ONE DAY WEEKLY vitamin b complex (B COMPLETE) Tab Take 1 tablet by mouth once daily. LORazepam (ATIVAN) 0.5 mg tab Take 1 tablet by mouth twice daily as needed (anxiety) for up to 30 days. azithromycin (ZITHROMAX Z-BRYON) 250 mg tablet Take 2 tablets day one, then, 1 tablet daily until gone. fluconazole (DIFLUCAN) 100 mg tablet Take 1 tablet by mouth once daily for 3 days. No current facility-administered medications for this visit. 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 Uvula midline. Retracted right TM, EAC normal b/l, TM left normal Neck: No LAD, no thyromegaly, no meningismus. CV: RRR, no murmur Lungs: CTA b/l, no wheezing Skin: No rashes, lesions, or wounds on exposed skin. Negative SLR b/l, mild left >right SI joint pain and lumbar paraspinal spasm and TTP No spine TTP midline No edema, b/l thigh ttp mild left >right without obvious deformity ASSESSMENT/PLAN: 1. Myalgia - ICD9: 729.1, ICD10: M79.1 (primary diagnosis) - labs as ordered, ? Secondary to DJD/DDD lumbar spine vs. fibromyalgia - C-REACTIVE PROTEIN (CRP) - CK CREATINE KINASE - SED RATE WESTERGREN - VITAMIN D 25 HYDROXY - TSH BLD 2. Fibromyalgia - ICD9: 729.1, ICD10: M79.7 - see above 3. Acute midline low back pain with bilateral sciatica - ICD9: 724.2, 724.3, ICD10: M54.42, M54.41 Chronic low back pain - Warm moist heat for 20 min three times a day - Xrays- see orders - XR LUMBAR GENERAL 3V AP/LAT/L5-S1 4. Right flank pain - ICD9: 789.09, ICD10: R10.9 - stable - IBUPROFEN 800 MG TABLET 5. Anxiety disorder, unspecified type - ICD9: 300.00, ICD10: F41.9 - rx refilled, increased recently - LORAZEPAM 0.5 MG TABLET 6. Acute non-recurrent maxillary sinusitis - ICD9: 461.0, ICD10: J01.00 - Will begin treatment with as per antibiotic as written, see orders - AZITHROMYCIN 250 MG TABLET - FLUCONAZOLE 100 MG TABLET OARRS website checked and validated. All prescriptions have been APPROPRIATELY filled. No suspicious activity was identified.- 08/17/2017 by DO Jose Luis Shook DO Return if no improvement. Follow up with Jose Luis Roman DO. Discussed risks, benefits, alternatives, and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 day. No current facility-administered medications for this visit. 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 Uvula midline. Neck: No LAD, no thyromegaly, no meningismus. CV: RRR, no murmur., normal s1s2 Lungs: CTA b/l, no wheezing Abd: obese No edema legs Skin: No rashes, lesions, or wounds on exposed skin. TTP over left mid IT band without obvious mass or skin change. ASSESSMENT/PLAN: 1. SOB (shortness of breath) - ICD9: 786.05, ICD10: R06.02 (primary diagnosis) - echo and PFTs and repeat labs, consider stress testing due to RFs - ECHO - SPIROMETRY - BASELINE AND POST DILATOR - ALBUTEROL SULFATE HFA 90 MCG/ACTUATION AEROSOL INHALER - VITAMIN D 25 HYDROXY - VITAMIN B12 BLOOD 2. Anxiety disorder, unspecified type - ICD9: 300.00, ICD10: F41.9 - LORAZEPAM 0.5 MG TABLET [facility] website checked and validated. All prescriptions have been APPROPRIATELY filled. No suspicious activity was identified.- 05/26/2017 by Jose Luis Roman DO 3. Right flank pain - ICD9: 789.09, ICD10: R10.9 - IBUPROFEN 800 MG TABLET 4. Other chest pain - ICD9: 786.59, ICD10: R07.89 - echo and PFTs and repeat labs, consider stress testing due to RFs - ECHO - SPIROMETRY - BASELINE AND POST DILATOR 5. Hypokalemia - ICD9: 276.8, ICD10: E87.6 - start K supplement - POTASSIUM CHLORIDE ER 10 MEQ TABLET,EXTENDED RELEASE 6. Migraine without aura, intractable, without status migrainosus - ICD9: 346.11, ICD10: G43.019 - rx refilled. - TOPIRAMATE 25 MG TABLET 7. Acquired hypothyroidism - ICD9: 244.9, ICD10: E03.9 - Instructed patient on importance of taking on an empty stomach either first thing in the morning or at bedtime. - continue current dose of Synthroid - TSH BLD - VITAMIN D 25 HYDROXY - VITAMIN B12 BLOOD - T4 FREE/FREE THYROX Jose Luis Roman DO Return if no improvement. Follow up with Jose Luis Roman DO. Discussed risks, benefits, alternatives, and potential side effects of medications. Patient/Guardian expressed understanding and agreed with the plan. See patient instructions. Jose Luis Roman DO [address] [place] [address] Referring Provider: JOSE LUIS ROMAN [[id number]] Allergies As of Date: 05/26/2017 Noted Allergy Reaction ALEVE (NAPROXEN SODIUM) 04/28/2007 11 - Vomiting Comments: Ibuprofen without problems Vomiting with Aleve with one time use METFORMIN 01/23/2017 8 - GI Upset PENICILLINS 04/28/2007 7 - Swelling Date Reviewed: 05/26/2017 Reviewed by: Kevin Rivera LPN - Fully Assessed Reason for Visit: Follow Up [171] Cmt: 3 months Primary Visit Diagnosis:SOB (shortness of breath) [R06.02] Other Visit Diagnoses:Anxiety disorder, unspecified type [F41.9] Right flank pain [R10.9] Other chest pain [R07.89] Hypokalemia [E87.6] Migraine without aura, intractable, without status migrainosus [G43.019] Acquired hypothyroidism [E03.9] Order(s):LORazepam (ATIVAN) 0.5 mg tabTake 1 tablet by mouth twice daily as needed (anxiety) for up to 30 days.Disp: 30 tabletRfl: 2 ibuprofen (MOTRIN) 800 mg tabletTake 1 tablet by mouth every 6 hours as needed for Pain. Take with food.Disp: 40 tabletRfl: 3 ECHO [519361] Order #: [id number]: 1 FUTURE potassium chloride (KLOR-CON 10) 10 mEq tabletTake 1 tablet by mouth daily with breakfast.Disp: 30 tabletRfl: 5 SPIROMETRY - BASELINE AND POST DILATOR [3389672] Order #: [id number] FUTURE albuterol HFA (VENTOLIN HFA) 90 mcg/actuation inhalerInhale 2 Puffs as instructed every 6 hours as needed for Wheezing/Shortness of Breath.Disp: 2 InhalerRfl: 2 topiramate (TOPAMAX) 25 mg tabletTake 1 tablet by mouth once daily.Disp: 30 tabletRfl: 1 TSH BLD [SQTSH] Order #: [id number] FUTURE VITAMIN D 25 HYDROXY [SQVITD] Order #: [id number] FUTURE VITAMIN B12 BLOOD [SQB12] Order #: [id number] FUTURE T4 FREE/FREE THYROX [SQFT4] Order #: [id number] FUTURE Prescriptions as of 05/26/2017 Sig: LORAZEPAM 0.5 MG TABLET Take 1 tablet by mouth twice * IBUPROFEN 800 MG TABLET Take 1 tablet by mouth every * TOPIRAMATE 25 MG TABLET Take 1 tablet by mouth once d* VITAMIN D3 2,000 UNIT CAPSULE take 1 capsule by mouth once * MAGNESIUM OXIDE 400 MG TABLET take 1 tablet by mouth once d* VITAMIN B-2 100 MG TABLET take 1 tablet by mouth once d* LEVOTHYROXINE 88 MCG TABLET TAKE ONE TABLET BY MOUTH ONCE* * VITAMIN B COMPLEX TABLET Take 1 tablet by mouth once d* POTASSIUM CHLORIDE ER 10 MEQ * Take 1 tablet by mouth daily * ALBUTEROL SULFATE HFA 90 MCG/* Inhale 2 Puffs as instructed * LIRAGLUTIDE 0.6 MG/0.1 ML (18* Inject 1.2 mg subcutaneously * PEN NEEDLE, DIABETIC 31 GAUGE* Use one needle per dose. 1 pe* Problem List As Of Date 05/26/2017 Noted Resolved Renal calculi [N20.0] INVALID FOR*03/10/2017 Hypothyroidism [E03.9] INVALID FOR* Lumbar disc disease [M51.9] INVALID FOR* Polycystic ovary syndrome [E28.2] INVALID FOR* Rosacea [L71.9] INVALID FOR* Dysmetabolic syndrome [E88.81] INVALID FOR* Abdominal pain, unspecified site [R10.9] INVALID FOR* IBS (irritable bowel syndrome) [K58.9] INVALID FOR* PUD (peptic ulcer disease) [K27.9] INVALID FOR* Bleeding disorder (HCC) [D68.9] INVALID FOR* CADENCE (obstructive sleep apnea) [G47.33] INVALID FOR* Kidney stone [N20.0] INVALID FOR*03/10/2017 Right flank pain [R10.9] INVALID FOR*03/10/2017 Obesity (BMI 30-39.9) [E66.9] INVALID FOR* Atypical migraine [G43.009] INVALID FOR* Cerebral aneurysm [I67.1] INVALID FOR* Fatigue [R53.83] INVALID FOR* Mouth sores [K13.79] INVALID FOR* Tick bite [W57.XXXA] INVALID FOR*03/10/2017 Myalgia [M79.1] INVALID FOR* Anxiety disorder [F41.9] INVALID FOR* Oral mucosal lesion [K13.70] INVALID FOR* Fibromyalgia [M79.7] INVALID FOR* Obesity, Class III, BMI 40-49.9 (morbid obesity*INVALID FOR* Physical deconditioning [R53.81] INVALID FOR* Prescriptions ordered this encounter Disp Refills Start End LORAZEPAM 0.5 MG TABLET 30 t* 2 05/26/2017 06/25/2017 Class: Print RX Route: ORAL Sig: Take 1 tablet by mouth twice daily as needed (anxiety) for up to 30 days. IBUPROFEN 800 MG TABLET 40 t* 3 05/26/2017 Route: ORAL Sig: Take 1 tablet by mouth every 6 hours as needed for Pain. Take with food. POTASSIUM CHLORIDE ER 10 MEQ TABLET,* 30 t* 5 05/26/2017 Route: ORAL Sig: Take 1 tablet by mouth daily with breakfast. ALBUTEROL SULFATE HFA 90 MCG/ACTUATI* 2 In* 2 05/26/2017 Route: INHALATION Sig: Inhale 2 Puffs as instructed every 6 hours as needed for Wheezing/Shortness of Breath. TOPIRAMATE 25 MG TABLET 30 t* 1 05/26/2017 Route: ORAL Sig: Take 1 tablet by mouth once daily. Medications Discontinued During This Encounter Phentermine HCl (ADIPEX-P) 37.5 mg t* 30 t* 0 02/23/2017 05/26/2017 Class: Print RX Route: ORAL Sig: Take 1 tablet by mouth once daily. Disc: Reason for discontinue is not on file. LORazepam (ATIVAN) 0.5 mg tab 30 t* 2 12/23/2016 05/26/2017 Class: Print RX Route: ORAL Sig: Take 1 tablet by mouth twice daily as needed (anxiety). Disc: Reason for discontinue is not on file. ibuprofen (MOTRIN) 800 mg tablet 40 t* 3 10/21/2016 05/26/2017 Route: ORAL Sig: Take 1 tablet by mouth every 6 hours as needed for Pain. Take with food. Disc: Reason for discontinue is not on file. topiramate (TOPAMAX) 25 mg tablet 30 t* 1 02/23/2017 05/26/2017 Route: ORAL Sig: Take 1 tablet by mouth twice daily. Disc: Reason for discontinue is not on file. Encounter Status:Closed by JOSE LUIS ROMAN DO on 05/26/17 ALLERGIES ALLERGIES DATE TYPE / CODE NAME / CODE REACTION SEVERITY SOURCE 07/16/2017 Drug Penicillins/[id number] Unknown Unknown [facility]/416 0476(RXNORM) [facility] 656289[facility] Hospital ED CT) Repository 01/23/2017 DRUG METFORMIN GI UPSET [facility]/[address] [place] 772617(SNOM Repository ED CT) 04/28/2007 Drug PENICILLINS [place] [facility]/68596 Hospital 1003(SNOMED Repository CT) 04/28/2007 DRUG [facility] [place] [address](SNOM Repository ED CT) 04/28/2007 Drug PENICILLINS SWELLING [facility]/[address] [facility] 1003(SNOMED Repository CT) ENCOUNTERS ENCOUNTERS ADMIT/DISCHARGE ACCOUNT ADMITTING ENCOUNTER LOCATION SOURCE NUMBER CLASS 04/28/2018/04/28/19 [id number] Ambulatory [address] [place] Repository 04/17/2018/04/19/20 [id number] Ambulatory [address] Repository 04/12/2018 [id number] Ambulatory [facility] ing:OPBI Repository 03/24/2018/03/24/20 [id number] Ambulatory [address] Repository 03/15/2018/03/16/20 [id number] Ambulatory [address] Repository 12/24/2017/12/25/19 [id number] Ambulatory [address] Main [place] Repository 12/22/2017/12/23/19 [id number] Ambulatory [address] Main [place] Repository 12/22/2017/12/25/19 [id number] Ambulatory [address] [place] Repository 11/18/2017/11/20/19 [id number] Ambulatory [address] Repository 10/16/2017/10/21/19 [id number] Ambulatory [address] Repository 09/16/2017/09/18/19 [id number] Ambulatory [address] Repository 09/15/2017/09/16/19 [id number] Ambulatory [address] Repository 09/08/2017/09/16/19 [id number] Ambulatory [address] Repository 09/08/2017/09/09/19 [id number] Ambulatory [address] Repository 08/17/2017/08/19/19 [id number] Ambulatory [address] Repository 07/27/2017 [id number] Ambulatory [facility] ing:CT Repository 07/21/2017/07/22/19 [id number] Ambulatory Building:OUTP [place] [facility] Repository 07/20/2017/07/21/19 [id number] Ambulatory Building:OUTP [place] [facility] Repository 07/16/2017/07/17/19 [id number] Emergency [address] ing:ED Repository 06/15/2017/06/17/19 [id number] Ambulatory [address] Repository 06/10/2017/06/10/19 [id number] Emergency [address] ing:ED Repository 05/26/2017/05/26/19 [id number] Ambulatory [address] Repository PAYERS PAYERS ENCOUNTER GUARANTOR PAYER SUBSCRIBER SOURCE 04/12/2018 AASHISH [place] Insurance:JUD CONNORS: merry Villarreal [facility]: [id number] [address]Mjm: [id number] Repository Date:2018-02-23 O (MJ) [address]ATTN: [place] [address]CF: 04/12/2018 Secondary NOT GIVENUNK Autumn Insurance:SELF PAY [facility] Number: Effective Repository Date:2018-02-23 07/27/2017 AASHISH Naranjo Primary SANGEETHA M Nichols [id number] Insurance:CARESOURCEP WALTERSDOB: Replaced by [facility] Number: [id number] [place], [place] [id number] Repository [address]Xmc: Date:2017-07-20P O [phone] [address]ATTN: CLAIMS -2 (HP) [place] [address]PM: 07/27/2017 Secondary NOT GIVENUNK Nichols Insurance:SELF PAY [facility] Number: Effective Repository Date:2017-07-20 07/21/2017 SANGEETHA Bailey Primary SANGEETHA [facility] Insurance:CARESOURCEP WALTERSDOB: [facility] Number: [id number] [facility] [id number] [address] [place], [place] Date: [place], [place] [address]Wxf: [phone] (HP) 07/20/2017 SANGEETHA Bailey [place]CARESOURCEP [facility] Number: [id number] [facility] [id number] [address] [place], [place] Date: [place], [place] [address]Kqq: [phone] (HP) 07/16/2017 AASHISH Naranjo Primary SANGEETHA Leo Autumn [id number] Insurance:CARESOURCEP [facility] by [facility] Number: [id number] [place], [place] [id number] Repository [address]Pcs: Date:2017-07-16 O [phone] [address]ATTN: CLAIMS -2 (HP) [place] [address]JF: 07/16/2017 Secondary NOT GIVENUNK Autumn Insurance:SELF PAY [facility] Number: Effective Repository Date:2017-07-16 06/10/2017 AASHISH [id number] Insurance:CARESOCHEYENNE YATESB: Replaced by [facility] Number: [id number] [id number] Repository [address]Pru: Date:2017-06-10P [phone]~[facility] [address]ATTN: CLAIMS -2 (HP) [place] [address]CX: 06/10/2017 Secondary NOT GIVENUNK Autumn Insurance:SELF PAY [facility] Number: Effective Repository Date:2017-06-10
== END ==
PROVIDERS: Family Provider Student in an Organized Health Care Education/Training Program; PCP Student in an Organized Health Care Education/Training Program
DX: Z12.31 Encounter for screening mammogram for malignant neoplasm of breast (principal); Z80.3 Family history of malignant neoplasm of breast
CPT/HCPCS: 77063; 77067

== ENCOUNTER → 2018-05-26 14:45 | Outpatient (CLI) | payer MEDICAID, SELFPAY ==
[2018-05-26 14:43] VITALS: BMI 42.7
--- NOTE | 2018-05-26 14:48 | RAD_ITS ---
STUDY: X-RAY - LEFT ELBOW REASON FOR EXAM: Female, 38 years old. Pain following a fall. TECHNIQUE: 3 view(s) of the elbow. COMPARISON: None. FINDINGS: Normal visualized humerus, radius and ulna. Normal radiocapitellar and ulnotrochlear articulations. The soft tissue structures are unremarkable. RAD/Elbow min 3 Views IMPRESSION: Normal x-ray examination of the elbow. Electronically Signed: Siva Jacobs MD at 15:05 EST , Service support ,
== END ==
PROVIDERS: Family Provider Student in an Organized Health Care Education/Training Program; PCP Student in an Organized Health Care Education/Training Program; Referring Provider Physician Assistant; Visit Provider Physician Assistant
DX: S50.02XA Contusion of left elbow, initial encounter (principal)
CPT/HCPCS: 73080

== ENCOUNTER → 2018-07-01 06:33 | Outpatient (CLI) | payer MEDICAID, SELFPAY ==
[2018-05-26 14:43] VITALS: BMI 42.7
--- NOTE | 2018-07-01 06:43 | MRI_ITS ---
STUDY: MRI BRAIN WITHOUT CONTRAST REASON FOR EXAM: Female, 38 years old. Left side weakness, speech disturbance. TECHNIQUE: Standardized multiplanar fat and water weighted pulse sequences were obtained. COMPARISON: CT brain 07/27/2017. FINDINGS: There is no intracranial mass, hemorrhage, territorial infarct or acute ischemia. Normal size of the ventricles and extra-axial spaces for the patient's age. Normal white matter tracts of the supratentorial brain. Normal bilateral basal ganglia. Normal thalami. There is no extra-axial fluid accumulation. Normal flow voids within the major intracranial circulation suggesting patency by spin echo criteria. There is an empty sella. Normal infundibular stalk, optic chiasm and hypothalamus. Normal tectal plate and pineal gland. Normal midbrain, jean-pierre and medulla. Normal cerebellum. Normal basal cisterns. Normal bilateral temporal bones. Normal bilateral internal auditory canals. No demonstrated orbital abnormality, within the constraints of a routine brain study. Normal visualized paranasal sinuses. Normal calvarium and skull base. Normal visualized soft tissue structures. Normal visualized upper cervical spine. MRI/Brain without Contrast IMPRESSION: Incidental note is made of empty sella. Otherwise, unremarkable study. Electronically Signed: Ruth Ann Newsome MD at 22:23 EST Tel , Service support ,
--- NOTE | 2018-07-01 07:29 | CDU_ITS ---
Reason For Study: Lt sided weakness Rt. Velocities/BP Lt. Velocities/BP Prox CCA 116.0/25.8 cm/sec. Prox CCA 107.0/27.0 cm/sec. Mid CCA 111.0/22.3 cm/sec. Mid CCA 106.0/22.3 cm/sec. Dist CCA 106.0/22.9 cm/sec. Dist CCA 95.0/24.6 cm/sec. Prox ICA 108.0/37.5 cm/sec. Prox ICA 91.5/34.6 cm/sec. Mid ICA 105.0/38.7 cm/sec. Mid ICA 106.0/41.0 cm/sec. Dist ICA 96.2/42.8 cm/sec. Dist ICA 85.0/36.4 cm/sec. Rt. ICA/CCA = .97. Lt. ICA/CCA = 1.0. Prox ECA 106.0/16.4 cm/sec. Prox ECA 100.0/18.2 cm/sec. Rt. Vert. 60.4/22.3 cm/sec. Lt. Vert. 53.4/23.5 cm/sec. Right Extracranial There is no significant atherosclerotic plaque noted in the right common carotid artery. There is no significant atherosclerotic plaque noted in the right internal carotid artery. There is no significant atherosclerotic plaque noted in the right external carotid artery. Antegrade flow is noted in the right vertebral artery. Left Extracranial There is no significant atherosclerotic plaque noted in the left common carotid artery. There is no significant atherosclerotic plaque noted in the left internal carotid artery. There is no significant atherosclerotic plaque noted in the left external carotid artery. Antegrade flow is noted in the left vertebral artery. Procedure Carotid Duplex [id number]. Exam performed in department. Interpretation Summary No significant atherosclerotic plaque or stenosis noted in the internal carotid arteries bilaterally. Flow within the vertebral arteries is antegrade bilaterally. Ordering Physician: Ashu Cuellar Referring Physician: Jose Luis Navarro Performed By: Kimberlee Rojas RVT
== END ==
PROVIDERS: Family Provider Student in an Organized Health Care Education/Training Program; PCP Student in an Organized Health Care Education/Training Program; Visit Provider Psychiatry & Neurology Neurology
DX: G81.94 Hemiplegia, unspecified affecting left nondominant side (principal); R47.9 Unspecified speech disturbances; R56.9 Unspecified convulsions; I72.9 Aneurysm of unspecified site
CPT/HCPCS: 70551; 93880

== ENCOUNTER → 2018-07-05 09:21 | Outpatient (CLI) | payer MEDICAID, SELFPAY ==
[2018-05-26 14:43] VITALS: BMI 42.7
--- NOTE | 2018-07-05 11:47 | EEG ---
- Electroencephalogram Date of service 07/05/2018 History EEG is being done in this 38 yr F to rule out seizures EEG Description: This is an 18 channel EEG with 10-20 lead placement system. Bipolar montages, Referential and Circumferential montages were reviewed. Photic stimulation and Hyperventilation were performed. The posterior dominant rhythm is 10 HZ synchronous, symmetric, reacting to eye opening and closing. Photo stimulation elicited normal driving response but no abnormal photoparoxysmal response, Hyperventilation did not elicit any abnormal photoparoxysmal response. Sleep was identified. There is no abnormal background slowing noted. There was no epileptiform discharges or electrographic seizures noted during this recording. EEG Interpretation This is a normal awake and asleep EEG. There is no epileptiform discharges or electrographic seizures noted during the record.
== END ==
PROVIDERS: Family Provider Student in an Organized Health Care Education/Training Program; PCP Student in an Organized Health Care Education/Training Program; Referring Provider Psychiatry & Neurology Neurology; Visit Provider Psychiatry & Neurology Neurology
DX: R56.9 Unspecified convulsions (principal); G81.94 Hemiplegia, unspecified affecting left nondominant side; R47.9 Unspecified speech disturbances; I72.9 Aneurysm of unspecified site
CPT/HCPCS: 95819

== ENCOUNTER → 2018-08-05 07:48 | Outpatient (CLI) | payer MEDICAID, SELFPAY ==
[2018-05-26 14:43] VITALS: BMI 42.7
[2018-08-05] MEDS: Cosyntropin 0.25 MG Vial IM (08:15)
[2018-08-05 08:22] VITALS: BP 130/68; PULSE 78; RESP 16; TEMP 36.6; O2SAT 98; BMI 41.8
[2018-08-05 09:48] LABS: Prolactin 5.3 ng/mL; T4 Free Direct 1.04 ng/dL (0.76-1.46); Thyroid Stim Hormone (TSH) 1.56 uIU/mL (0.358-3.74)
== END ==
PROVIDERS: Family Provider Student in an Organized Health Care Education/Training Program; PCP Student in an Organized Health Care Education/Training Program; Referring Provider Student in an Organized Health Care Education/Training Program; Visit Provider Student in an Organized Health Care Education/Training Program
DX: E23.6 Other disorders of pituitary gland (principal)
CPT/HCPCS: 36415; 82533; 84146; 84439; 84443; 84480; 96372; J0834

== ENCOUNTER 2018-09-08 16:03 | Emergency (ER) | payer MEDICAID, SELFPAY ==
[2018-08-05 08:22] VITALS: BMI 41.8
[2018-09-08 16:04] VITALS: BP 130/85; PULSE 99; RESP 15; TEMP 36.7; O2SAT 100; BMI 42.6
[2018-09-08 16:37] LABS: Bacteria 0 SEEN /hpf (None Seen); Mucous, Urine 0 SEEN /hpf (<or=2+)
[2018-09-08 16:48] LABS: Color, Urine Yellow (Yellow); Glucose, Dipstick Normal (Normal); Ketone-Dipstick Negative (Negative); Leukocyte Esterase-Dipstick 25 /ul (Negative); Nitrite-Dipstick Negative (Negative); Occult Blood-Urine 25 /ul (Negative); Protein-Dipstick 15 mg/dl (Negative); Specific Gravity, Urine 1.025 (1.002-1.030); Urine Clarity Sl. Cloudy (Clear); Urine Urobilinogen 1 mg/dl (Normal)
--- NOTE | 2018-09-08 16:48 | CT_ITS ---
STUDY: CT ABDOMEN AND PELVIS WITHOUT CONTRAST REASON FOR EXAM: Female, 38 years old. Pain RADIATION DOSAGE (If Supplied By Facility): DLP = ( 1179.15 ) mGycm TECHNIQUE: Transaxial images were obtained from the dome of the diaphragm to the symphysis pubis without oral contrast, and without intravenous contrast. Sagittal and coronal images were reconstructed. Individualized dose optimization techniques were used for this CT. COMPARISON: CT abdomen pelvis May 08, 2014 FINDINGS: Evaluation of the abdominal viscera is limited in the absence of intravenous contrast. The visualized lung bases are clear. The visualized portions of the heart and pericardium are within normal limits. The gallbladder has been removed. The liver demonstrates an unremarkable unenhanced appearance. The spleen is normal in size. The pancreas demonstrates an unremarkable unenhanced appearance. The adrenal glands are within normal limits. There are no obstructing renal stones. There is a right renal lower pole 4 mm stone. There is no hydronephrosis. Normal visualized stomach. There is no bowel obstruction or inflammation. The appendix has been removed. The aorta is normal in caliber. There is no abdominal or pelvic free air, free fluid, fluid collection or lymphadenopathy. There are no destructive osseous lesions. CT/Abdomen/Pelvis without Cont IMPRESSION: No acute abdominal or pelvic pathology demonstrated on this noncontrast CT. Status post cholecystectomy. Right renal lower pole nonobstructing stone. Electronically Signed: Alfredo Mobley, at 17:53 EDT Tel , Service support ,
[2018-09-08 16:49] LABS: Urine Bilirubin Dipstick 1 mg/dL (Negative)
[2018-09-08 16:52] LABS: Anion Gap 4 (5-15); BUN 18 mg/dL (7-18); BUN/Creat Ratio 22.4 RATIO (10-20); Calcium,Total 8.5 mg/dL (8.5-10.1); Chloride 106 mmol/L (98-107); EST Glomerular Filtration Rate 85 mL/min (>60); Est Glom Filt Rate - Afr Amer 103 mL/min (>60); Estimated Creatinine Clearance 68.49 ml/min; Glucose 110 mg/dL (74-106); Potassium 3.9 mmol/L (3.5-5.1); Sodium Level 139 mmol/L (136-145)
[2018-09-08 16:57] LABS: Amorphous Sediment 1+ URATE; Red Blood Cells-Urine 0-5 SEEN /hpf (0-5); Squamous Epithelial Cells - UA 5-10 SEEN /hpf (5-10); White Blood Cells 0-5 SEEN /hpf (0-5)
[2018-09-08] MEDS: Ondansetron 4 MG/2 ML Vial IV (16:57)
[2018-09-08] MEDS: 0.9% Normal Saline 1,000 ML 1000 ML IV (16:57)
[2018-09-08 17:01] LABS: Internal QC Validated? YES +Cl - CLEAR BKGD; Pregnancy, Serum, hCG Quali. NEGATIVE Negative
[2018-09-08 17:29] LABS: AST(SGOT) 19 U/L (15-37); Alanine Aminotransfer ALT/SGPT 32 U/L (13-56); Albumin, Serum 3.8 g/dL (3.2-5.0); Alkaline Phosphatase 55 U/L (45-117); Bilirubin, Direct 0.09 mg/dL (0.00-0.30); Globulin 3.8 g/dL (2.2-4.2); Lipase 117 U/L (73-393); Protein, Total 7.6 g/dL (6.4-8.2)
[2018-09-08 17:42] LABS: Absolute Lymphocyte Count 2.48 X10^3/ul (0.83-4.51); Absolute Neutrophil Count 8.2 X10^3/uL (2.0-7.7); Basophil# 0.02 X10^3/uL; Basophil% 0.2 % (0-1); Eosinophil# 0.16 X10^3/uL; Eosinophils% 1.4 % (0-5); Hematocrit 43.7 % (37-47); Hemoglobin 14.2 g/dl (12.0-15.0); Lymphocyte # 2.48 X10^3/ul (4.0); Lymphocyte % 21.8 % (19-41); Mean Corp Hgb Conc 32.5 g/gl (32-36); Mean Corpuscular Hgb 29.5 pg (27.0-32.0); Mean Corpuscular Volume 90.7 fL (81-99); Mean Platelet Vol. 10.5 fl (6.2-12.0); Monocyte# 0.54 X10^3/uL; Monocyte% 4.7 % (0-10); Neutrophil # 8.17 X10^3/uL (2.7-7.7); Neutrophil % 71.6 % (47-70); Platelet Count 310 K/mm3 (150-450); RBC Distribution Width CV 13.8 % (11.6-14.6); RBC Distribution Width SD 45.4 fl (35.1-43.9); Red Blood Count 4.82 M/mm3 (4.2-5.4); White Blood Count 11.4 K/mm3 (4.4-11.0)
[2018-09-08 17:45] LABS: POSITIVE COUNT NO; POSITIVE DIFFERENTIAL NO; POSITIVE MORPHOLOGY NO
--- NOTE | 2018-09-08 18:08 | ED.DCSUM_ITS ---
- ER Visit Summary Date of Service: 09/08/18 Chief Complaint: [Abdominal pain] History of Present Illness: The patient is a 38 F [presents to the emergency room with abdominal pain that started about a week and a half ago. Patient states that she had 4 other individuals ate some cali mushrooms. Patient s ubsequently developed vomiting and diarrhea but nobody else that ate the mushrooms got sick. Patient states that she continues to have diarrhea at least 3 or 4 episodes per day of watery stool. Patient complains of right upper quadrant pain. Patient states the pain is made worse by eating. She is had nausea but no significant vomiting since the initial night. She denies any fevers. She denies any urinary symptoms. Patient denies recent antibiotic usage. She denies recent travel.] Physical Examination: [HEENT-PERRLA, EOMI. Cranial nerves II through XII grossly intact. TMs clear. Mucous membranes moist. No adenopathy. Cardiovascular-regular rate and rhythm without murmur or ectopy Lungs-clear to auscultation, chest wall stable without crepitus or subcu emp hysema Abdomen-normoactive bowel sounds, soft. Patient does have some tenderness over the right upper quadrant with some guarding. There is no rebound, rigidity, or perineal signs. Extremities-intact ?4, normal range of motion, normal pulses, atraumatic] Test Results: [CBC with differential with an 11.4, hemoglobin 14, hematocrit 44, platelets 310. Chemistries unremarkable. LFTs were normal. Lipase was 117. Urinalysis was normal. hCG was negative. Lactate was normal 1.0. CT scan of the abdomen pelvis without contrast was essentially normal.] Emergency Department Course and Treatment: [She was medicated with Zofran. Patient was given IV fluids.] Treatment Plan: [Patient will be given a prescription for Zofran as well as Bentyl. Patient to follow-up with primary care physician in 3 to 5 days. Patient was given a prescription for bringing in a stool sample for enteric pathogens as she was unable to give a sample in the emergency department.] Disposition: [Discharged home in stable condition. Advised to return if persistent vomiting, dehydration, worsening abdominal pain, fever, or conditions worsen anyway.] Impression: [Viral gastroenteritis Abdominal pain] This note was generated with Media[employer] software. It may contain incorrect words, spelling, and punctuation that were not noted in review of the chart prior to signing ED Disposition - Plan for ED Patient: Referrals: Jose Luis Toledo DO [Primary Care Provider] -
--- NOTE | 2018-09-08 18:09 | ED.DEP ---
ED Disposition - Plan for ED Patient: Instructions: ED Abdominal Pain Unkn Cause, ED Gastroenteritis Viral Prescriptions: Ondansetron [Zofran Odt] 4 mg PO Q8H PRN PRN #10 tab PRN Reason: Nausea Dicyclomine HCl [Bentyl] 20 mg PO TIDAC #20 cap Referrals: Jose Luis Toledo DO [Primary Care Provider] - 3-5 Days
[2018-09-08 18:25] VITALS: BP 127/83; PULSE 83; RESP 14; O2SAT 99
== END 2018-09-08 18:31 | disposition home or self-care (01) ==
LOC: ED 16:57
PROVIDERS: Emergency Provider Emergency Medicine; Family Provider Student in an Organized Health Care Education/Training Program; PCP Student in an Organized Health Care Education/Training Program
DX: A08.4 Viral intestinal infection, unspecified (principal); R10.9 Unspecified abdominal pain; G43.909 Migraine, unspecified, not intractable, without status migrainosus; Z87.442 Personal history of urinary calculi; Z90.49 Acquired absence of other specified parts of digestive tract
CPT/HCPCS: 74176; 80048; 80076; 81001; 83605; 83690; 84703; 85025; 96361; 96374; 99284; J7030; J2405

== ENCOUNTER → 2018-12-06 | Outpatient (CLI) | payer MEDICAID, SELFPAY ==
[2018-11-29 14:14] VITALS: BMI 42.6
--- NOTE | 2018-12-06 12:02 | US_ITS ---
STUDY: ULTRASOUND OF THE FEMALE PELVIS - COMPLETE REASON FOR EXAM: Female, 38 years old. Pelvic pain TECHNIQUE: Transabdominal and Transvaginal TECHNICAL QUALITY: Adequate. COMPARISON: CT dated 09/08/2018 FINDINGS: The uterus is retroverted and is in a midline position. The uterus measures 8.2 x 5.9 x 5.2 cm. Normal uterine cervix. The endometrium measures 10 mm in thickness, and is hyperechoic. There is no demonstrated endometrial mass. There is no demonstrated myometrial mass. There are nabothian cysts noted in the cervix, measuring up to 1.3 cm. The right ovary is visualized. The right ovary measures 3.1 x 3.3 x 2.4 cm. There is a 1.4 x 1.4 cm cyst in the right ovary. There is no visualized right adnexal mass or complex lesion. There is normal arterial and normal venous vascularity. The left ovary is visualized. The left ovary measures 3.2 x 3.2 x 2.1 cm. There is no left ovarian cyst or ovarian mass. There is no visualized left adnexal mass or complex lesion. There is normal arterial and normal venous vascularity. There is a small amount of pelvic free fluid. US/Transvaginal Non- IMPRESSION: Thickened endometrium which is likely due to cyclic change. Nabothian cysts in the cervix. 1.4 cm cyst in the right ovary. Otherwise, normal ovaries with normal Doppler flow. Small amount of pelvic free fluid. Electronically Signed: Scotty Salinas, at 15:12 EDT Tel , Service support ,
--- NOTE | 2018-12-06 12:02 | US_ITS ---
STUDY: ULTRASOUND OF THE FEMALE PELVIS - COMPLETE REASON FOR EXAM: Female, 38 years old. Pelvic pain TECHNIQUE: Transabdominal and Transvaginal TECHNICAL QUALITY: Adequate. COMPARISON: CT dated 09/08/2018 FINDINGS: The uterus is retroverted and is in a midline position. The uterus measures 8.2 x 5.9 x 5.2 cm. Normal uterine cervix. The endometrium measures 10 mm in thickness, and is hyperechoic. There is no demonstrated endometrial mass. There is no demonstrated myometrial mass. There are nabothian cysts noted in the cervix, measuring up to 1.3 cm. The right ovary is visualized. The right ovary measures 3.1 x 3.3 x 2.4 cm. There is a 1.4 x 1.4 cm cyst in the right ovary. There is no visualized right adnexal mass or complex lesion. There is normal arterial and normal venous vascularity. The left ovary is visualized. The left ovary measures 3.2 x 3.2 x 2.1 cm. There is no left ovarian cyst or ovarian mass. There is no visualized left adnexal mass or complex lesion. There is normal arterial and normal venous vascularity. There is a small amount of pelvic free fluid. US/Pelvic (Non ) IMPRESSION: Thickened endometrium which is likely due to cyclic change. Nabothian cysts in the cervix. 1.4 cm cyst in the right ovary. Otherwise, normal ovaries with normal Doppler flow. Small amount of pelvic free fluid. Electronically Signed: Scottyflako Salinas, at 15:12 EDT Tel , Service support ,
== END | disposition home or self-care (01) ==
LOC: US 12:01
PROVIDERS: Family Provider Student in an Organized Health Care Education/Training Program; PCP Student in an Organized Health Care Education/Training Program; Referring Provider Nurse Practitioner Women's Health; Visit Provider Nurse Practitioner Women's Health
DX: R10.2 Pelvic and perineal pain (principal)
CPT/HCPCS: 76830; 76856; 93976

== ENCOUNTER → 2018-12-14 | Outpatient (CLI) | payer MEDICAID, SELFPAY ==
--- NOTE | 2018-12-14 | EMB_PTH ---
PATIENT: SAMMY TRAN LOC: [facility] U#:[id number] AGE/SX: 38/F ROOM: RE12/14/[address]: ANDREW Hernandez : 1980 BED: DIS: 12/14/2018 SPEC #: [id number] RECD: 12/14/18 16:26 STATUS: MACEY SADIE #: [id number] ARTIS: 12/14/18 00:[address]: She Vivar NP DEPT: SURGICAL PATHOLOGY RECD BY: Peter Oliveira ENTERED: 12/15/18 09:49 SP TYPE: ENDOM BX/C MICHELE DR: Dr. Jose Luis Toledo DO Tissues: Endometrium, NOS Procedures: Surgery Specimen Level IV HEADER OPERATION: Endometrial biopsy PRE-OP DIAGNOSIS: Pelvic pain TISSUE SUBMITTED: Endometrial biopsy MICROSCOPIC DIAGNOSIS Endometrial biopsy: Proliferative endometrium. SJ:kisha 12/16/18 MICROSCOPIC DESCRIPTION Slides are reviewed. GROSS DESCRIPTION Received is one container labeled with the patient's name and not further designated. The specimen consists of multiple irregular fragments of gonzalez-pink soft tissue that in aggregate measure 2.5 x 2.5 x 0.2 cm. The specimen is totally submitted in one cassette. / SJ:kisha 12/15/18 TC:4 CPT: 41715
[2018-12-14 10:15] VITALS: BMI 43.2
== END | disposition home or self-care (01) ==
LOC: LABSPEC 16:37
PROVIDERS: Family Provider Student in an Organized Health Care Education/Training Program; PCP Student in an Organized Health Care Education/Training Program; Referring Provider Nurse Practitioner Women's Health; Visit Provider Nurse Practitioner Women's Health
DX: N85.8 Other specified noninflammatory disorders of uterus (principal)
CPT/HCPCS: 88305

== ENCOUNTER 2019-04-08 16:48 | Emergency (ER) | payer SELFPAY ==
[2018-12-31 12:29] VITALS: BMI 43.2
[2019-04-08 16:50] VITALS: BP 165/95; PULSE 96; RESP 15; TEMP 37.5; O2SAT 98; BMI 45.0
--- NOTE | 2019-04-08 17:13 | ED.DCSUM_ITS ---
History of Present Illness Chief Complaint: Vag Bleeding Informant: Patient Onset: Today - Today while at work she states she had excellent gush of blood and is gone to 5 tampons since 1530. She states she contacted her box toe buffer who recommended she come to the emergency department., Yesterday - Normal menses started yesterday Context: Sudden Onset Timing: Continuous Quality: Heavy vaginal bleeding with clots Location: Vaginal bleeding Current Severity: Moderate Maximum Severity: Moderate Worsened by: Nothing Relieved by: Nothing Associated Symptoms: Nervousness and lightheadedness Narrative: She is a 39-year-old AB 4 with history of protein S deficiency who presents with heavy vaginal bleeding that started at 1530. She states her status post vasectomy. She has no symptoms of . States last evening she had severe cramping pain. She has no cramping pain today. There is no history of ectopic or STI. There is no history of trauma. She denies bruising easily. He is on no anticoagulant. Prior similar symptoms: No Recent Illness/Hospitalization: No - Past Medical History (1) History of protein S deficiency Status: Acute (2) Adenomyosis Status: Acute Comment: discuss nohemi or liletta IUD but neurologist likely disproves, plan flexeril/naproxen and then tvh bs possible laparoscopic in spring. (3) Brain aneurysm Status: Acute (4) Endometriosis determined by laparoscopy Status: Acute (5) PCOS (polycystic ovarian syndrome) Status: Acute Past Medical History - Allergies and Home Meds Allergies/Adverse Reactions: Allergies Penicillins Allergy (Verified 04/08/19 16:50) Unknown Primary Care Physician: Jose Luis Toledo DO [Primary Care Provider] - Prior records reviewed: Yes Lives: Spouse/ Significant Other, With Family Smoking Status: Never smoker Alcohol: None Drugs: None Review of Systems General: Denies: Chills, Fever, Malaise, Subjective, Sweats Eyes: Denies: Visual changes - bilaterally, Blurred Vision - bilaterally ENT: Denies: Rhinorrhea, Sore throat Cardiovascular: Denies: Chest pain, Palpitations Respiratory: Denies: Dyspnea, Cough, Dyspnea on exertion Gastrointestinal: Denies: Abdominal pain, Nausea, Vomiting, Diarrhea, Melena, Hematochezia Genitourinary: Denies: Dysuria, Hematuria, Frequency Musculoskeletal: Denies: Myalgias, Arthralgias, Neck pain, Back pain, Swelling, Extremity Pain Skin: Denies: Rash, Wounds Neurological: Denies: Headache, Weakness, Parasthesia Hematologic: Denies: Easy bruising, Easy bleeding Physical Exam Vital Signs/Narrative: Vital Signs Temp Pulse Resp BP Pulse Ox 04/08/19 16:50 99.5 F H 96 15 165/9 H 98 Inital Vital Signs reviewed: Yes General: Well nourished, Well developed, Obese, No Acute Distress Head: Normocephalic, Atraumatic Eyes: Perrl, EOMI. Negative for: Pale conjunctiva, Scleral icterus ENT: Negative for: No rhinorrhea, TM's clear Neck: Supple, Nontender, No lymphadenopathy, No JVD Cardiovascular: Regular rate, Regular rhythm, No murmurs, Normal S1, Normal S2 Respiratory: No distress, CTA bilaterally, Chest nontender Abdomen: Soft, Nontender, Nondistended, Normal bowel sounds, No masses Rectal: Deferred : - - Blood noted on visualization. Minimal mount of blood in the vaginal vault. There are very small clots the size of peanut noted. There is no active bright red blood noted. Difficult to assess size of uterus. She has significant tenderness and I believe it is enlarged. She states she normally does not have tenderness on pelvic exam. There is no adnexal masses or tenderness noted. She did complain of discomfort with movement of the cervix. Back: Nontender, Normal Inspection. Negative for: CVA tenderness Extremities: Nontender, No edema Skin: Normal color, No rash, No Trauma. Negative for: Cyanosis, Diaphoresis, Jaundice Neurological: Alert, Oriented x3, Cranial nerves II-XII grossly intact, Normal Strength, Normal Sensation Psychological: Normal affect, Normal Mood Diagnostic/Tx/Re-eval Impressions Transvaginal US 04/08/19 18:29 IMPRESSION: Normal female pelvis. Electronically Signed: Everardo Bolton DO at 19:14 EST Tel [phone], Service support , 04/08/19 18:29 Transvaginal Non- [US] Stat Laboratory Results 04/08/19 04/08/19 17:25 17:25 WBC 12.3 H RBC 4.56 Hgb 13.6 Hct 41.8 MCV 91.7 MCH 29.8 MCHC 32.5 RDW Std Deviation 42.8 RDW Coeff of Jeff 12.7 Plt Count 282 MPV 9.8 Immature Gran % (Auto) 0.300 Neut % (Auto) 62.8 Lymph % (Auto) 30.9 [place] % (Auto) 4.6 Eos % (Auto) 1.1 Baso % (Auto) 0.3 Absolute Neuts (auto) 7.7 Absolute Lymphs (auto) 3.80 Nucleated RBC % 0 Serum , Qual NEGATIVE Sounds normal. CBC and H&H are normal. Serum test was negative. Case was discussed with Dr. Reed Judd's and she was sent in. She and for me to tell patient to follow-up in the next 2 to 4 weeks. - Medical Decision Making With abnormal vaginal bleeding will obtain test, CBC to assess H&H, platelet count and differential. Will perform a pelvic exam to determine there is any lesions to explain the amount of bleeding she has. Plan discharge with outpatient follow-up with [facility] N[facility]SE in 2 to 4 weeks. ED Disposition - Plan for ED Patient: Disposition: Home or Assisted Living Diagnosis: Abnormal vaginal bleeding Instructions: Dysfunctional Uterine Bleeding Referrals: Jose Luis Toledo DO [Primary Care Provider] - Zoë Griffith MD [STAFF PHYSICIAN] - Additional Instructions: Follow-up with Dr. Zoë Griffith in the next 2 to 4 weeks.
[2019-04-08 17:30] LABS: Absolute Neutrophil Count 7.7 X10^3/uL (2.0-7.7); Basophil# 0.04 X10^3/uL; Basophil% 0.3 % (0-1); Eosinophil# 0.14 X10^3/uL; Eosinophils% 1.1 % (0-5); Hematocrit 41.8 % (37-47); Hemoglobin 13.6 g/dL (12.0-15.0); Lymphocyte % 30.9 % (19-41); Mean Corp Hgb Conc 32.5 g/dL (32-36); Mean Corpuscular Hgb 29.8 pg (27.0-32.0); Mean Corpuscular Volume 91.7 fL (81-99); Mean Platelet Vol. 9.8 fl (6.2-12.0); Monocyte# 0.56 X10^3/uL; Monocyte% 4.6 % (0-10); NRBC Flagged by Analyzer 0 % (0-5); Neutrophil % 62.8 % (47-70); Platelet Count 282 K/mm3 (150-450); RBC Distribution Width CV 12.7 % (11.6-14.6); RBC Distribution Width SD 42.8 fl (35.1-43.9); Red Blood Count 4.56 M/mm3 (4.2-5.4); White Blood Count 12.3 K/mm3 (4.4-11.0)
[2019-04-08 18:17] LABS: Internal QC Validated? YES +Cl - CLEAR BKGD; Pregnancy, Serum, hCG Quali. NEGATIVE Negative
--- NOTE | 2019-04-08 18:29 | US_ITS ---
STUDY: ULTRASOUND OF THE FEMALE PELVIS - COMPLETE REASON FOR EXAM: Female, 39 years old. Heavy bleeding for the last few hours. Passing clots. LMP: April 07, 2019. TECHNIQUE: Transvaginal TECHNICAL QUALITY: Adequate. COMPARISON: No lytic ultrasound, December 06, 2018. FINDINGS: The uterus is retroverted and is in a midline position. The uterus measures 6.8 x 4.9 x 4.7 cm. There is a Nabothian cyst of the cervix. The endometrium measures 6 mm in thickness, and is hyperechoic. There is no demonstrated endometrial mass. There is no demonstrated myometrial mass. I.U.D. - The patient does not have an I.U.D. The right ovary is visualized. The right ovary measures 4.0 x 3.0 x 2.5 cm. There are multiple follicles of the right ovary without a dominant cyst. There is no visualized right adnexal mass or complex lesion. There is normal arterial and normal venous vascularity. The left ovary is visualized. The left ovary measures 3.0 x 2.3 x 1.6 cm. There are multiple follicles of the left ovary without a dominant cyst. There is no visualized left adnexal mass or complex lesion. There is normal arterial and normal venous vascularity. There is no fluid in the cul-de-sac. Polycystic ovary disease: No. US/Transvaginal Non- IMPRESSION: Normal female pelvis. Electronically Signed: Everardo Bolton DO at 19:14 EST Tel [phone], Service support ,
[2019-04-08 19:24] VITALS: BP 121/64; PULSE 78; RESP 16; O2SAT 99
== END 2019-04-08 20:18 | disposition home or self-care (01) ==
PROVIDERS: Emergency Provider Emergency Medicine; Family Provider Student in an Organized Health Care Education/Training Program; PCP Student in an Organized Health Care Education/Training Program
DX: N93.9 Abnormal uterine and vaginal bleeding, unspecified (principal); E66.9 Obesity, unspecified; E28.2 Polycystic ovarian syndrome; D68.59 Other primary thrombophilia; N80.9 Endometriosis, unspecified; Z79.899 Other long term (current) drug therapy
CPT/HCPCS: 76830; 84703; 85025; 93976; 99283

== ENCOUNTER 2019-10-11 19:46 | Emergency (ER) | payer MEDICAID, SELFPAY ==
[2019-10-11 19:47] VITALS: BP 155/87; PULSE 99; RESP 16; TEMP 36.5; O2SAT 100; BMI 42.0
--- NOTE | 2019-10-11 20:23 | CT_ITS ---
STUDY: CTA HEAD AND NECK WITH CONTRAST REASON FOR EXAM: Female, 39 years old. HX OF ANEURYSM AND MIGRAINE WITH STROKE LIKE SYMPTOMS, HEADACHE TODAY RADIATION DOSAGE (If Supplied By Facility): CTDIvol = ( 28.41 ) mGy, DLP = ( 1488.37 ) mGycm TECHNIQUE: CT angiography was performed with a multi-detector CT scanner. Data acquisition was obtained from the skull base through the vertex following intravenous administration of 100ML ISOVUE 370. MIP images were reconstructed from the axial data set. Post-processing of the angiographic images was performed, with multiplanar reformation and 3D reconstruction. Individualized dose optimization techniques were used for this CT. COMPARISON: No relevant priors. FINDINGS: Normal bilateral petrous carotid arteries. Normal right cavernous carotid artery with a normal supraclinoid bifurcation. Normal left cavernous carotid artery with a normal supraclinoid bifurcation. Normal right A1 segments of the anterior cerebral artery. Normal left A1 segments of the anterior cerebral artery. Normal intact anterior communicating artery (ACOM). Normal bilateral A2 segments of the anterior cerebral arteries. Normal right M1 and M2 segments of the middle cerebral arteries, with a normal M1 bifurcation. Normal left M1 and M2 segments of the middle cerebral arteries, with a normal M1 bifurcation. Normal bilateral posterior communicating arteries. Normal bilateral vertebral arteries. Normal basilar artery with a normal basilar bifurcation. The visualized bilateral superior cerebellar (SCA) arteries are normal. Normal bilateral P1, P2 and visualized P3 segments of the posterior cerebral arteries. 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 There is no demonstrated abnormality of the visualized brain. AORTIC ARCH: Normal visualized aortic arch. Normal origins of the brachiocephalic, left common carotid, and left subclavian arteries. RIGHT CAROTID ARTERIES: Normal right common carotid artery (CCA). Normal right common carotid bulb. Normal origin of the right internal carotid (ICA) artery without a hemodynamically significant stenosis. Normal visualized cervical portion of the right internal carotid artery. Normal origin of the right external carotid artery (ECA). LEFT CAROTID ARTERIES: Normal left common carotid artery (CCA). Normal left common carotid bulb. Normal origin of the left internal carotid (ICA) artery without a hemodynamically significant stenosis. Normal visualized cervical portion of the left internal carotid artery. Normal origin of the left external carotid artery (ECA). VERTEBRAL ARTERIES: Normal bilateral vertebral arteries. CT/CTA Head AND Neck W/ Contrast IMPRESSION: No significant atherosclerotic disease involving the neck or head. 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
[2019-10-11] MEDS: proMETHazine 25 MG/ML Syringe 12.5 MG IV (20:35)
[2019-10-11] MEDS: 0.9% Normal Saline 1,000 ML 999 ML IV (20:36)
[2019-10-11 21:18] LABS: Anion Gap 9 (5-15); BUN 22 mg/dL (7-18); BUN/Creat Ratio 26.6 RATIO (10-20); Calcium,Total 9.1 mg/dL (8.5-10.1); Chloride 106 mmol/L (98-107); Creatinine, Serum 0.83 mg/dL (0.55-1.02); EST Glomerular Filtration Rate 81 mL/min (>60); Est Glom Filt Rate - Afr Amer 99 mL/min (>60); Estimated Creatinine Clearance 65.36 ml/min; Glucose 89 mg/dL (74-106); Potassium 3.9 mmol/L (3.5-5.1); Sodium Level 140 mmol/L (136-145)
[2019-10-11 21:19] LABS: Absolute Lymphocyte Count 3.17 X10^3/uL (0.83-4.51); Absolute Neutrophil Count 11.7 X10^3/uL (2.0-7.7); Basophil# 0.06 X10^3/uL; Basophil% 0.4 % (0-1); Eosinophils% 0.6 % (0-5); Hematocrit 41.7 % (37-47); Hemoglobin 13.4 g/dL (12.0-15.0); Lymphocyte # 3.17 X10^3/ul (4.0); Lymphocyte % 19.8 % (19-41); Mean Corp Hgb Conc 32.1 g/dL (32-36); Mean Corpuscular Hgb 30.3 pg (27.0-32.0); Mean Corpuscular Volume 94.3 fL (81-99); Mean Platelet Vol. 10.7 fl (6.2-12.0); Monocyte# 0.94 X10^3/uL; Monocyte% 5.9 % (0-10); NRBC Flagged by Analyzer 0 % (0-5); Neutrophil # 11.71 X10^3/uL (2.7-7.7); Neutrophil % 72.9 % (47-70); Platelet Count 286 K/mm3 (150-450); RBC Distribution Width CV 13.2 % (11.6-14.6); RBC Distribution Width SD 45.1 fl (35.1-43.9); Red Blood Count 4.42 M/mm3 (4.2-5.4)
--- NOTE | 2019-10-11 21:33 | ED.DCSUM_ITS ---
History of Present Illness Chief Complaint: Headache Informant: Patient Onset: Days Context: Gradual Timing: Continuous, Waxes and wanes Quality: Similar Prior Headaches, Sharp, Throbbing Location: left face, left side Current Severity: Mild Maximum Severity: Severe Associated Symptoms: Photophobia, - - speech changes Narrative: Patient is a 39-year-old female with history of complex migraines as well as brain aneurysm that is routinely followed presenting with headache. Patient states she developed a mild headache on Thursday night, 3 nights ago. She states it is typical of her headaches and she took Motrin. On Thursday the headache worsened significantly. That night she developed significant left- sided face pain and facial swelling. She also had about a 40-minute episode where she could not get her words out properly. She is going to go to the emergency room but on a hard time getting down the stairs suggest a side to go stay home and sleep. She notes she slept all day yesterday and took her migraine medications neck she feels much better. She now only has some mild ruby sea. She called her primary care doctor on Thursday who recommended she come to the emergency room for further evaluation. This is why the patient is here tonight. Patient states she last had imaging of her aneurysm 2 years ago they have just been monitoring it as I do not want to do any surgery at this time. Patient denies any other complaints at this time. Past Medical History - Allergies and Home Meds Allergies/Adverse Reactions: Allergies Penicillins Allergy (Verified 10/11/19 19:47) Unknown Primary Care Physician: Jose Luis Toledo DO [Primary Care Provider] - Past Medical History: - - Complex migraines, brain aneurysm Surgical History: noncontributory Lives: Spouse/ Significant Other Smoking Status: Never smoker Review of Systems General: Denies: Chills, Fever, Sweats Eyes: Denies: Visual changes - bilaterally, Diplopia ENT: Denies: Rhinorrhea, Sore throat Cardiovascular: Denies: Chest pain, Palpitations Respiratory: Denies: Dyspnea, Cough, Dyspnea on exertion Gastrointestinal: Denies: Abdominal pain, Nausea, Vomiting, Diarrhea, Melena, Hematochezia Genitourinary: Denies: Dysuria, Hematuria, Frequency Musculoskeletal: Denies: Back pain, Extremity Pain Skin: Denies: Rash, Wounds Neurological: Reports: Headache. Denies: Weakness, Numbness Physical Exam Vital Signs/Narrative: Vital Signs Temp Pulse Resp BP Pulse Ox 10/11/19 19:47 97.7 F L 99 16 155/87 H 100 Inital Vital Signs reviewed: Yes General: Well nourished, Well developed Head: NC, AT Eyes: Perrl, EOMI ENT: Moist mucous membranes, No rhinorrhea, TM's clear, - - No facial swelling Neck: Supple, No Lymphadenopathy, No JVD, Nontender, No Meningismus Cardiovascular: Regular rate, Regular rhythm, No murmurs Respiratory: No distress, CTA bilaterally, Chest nontender Abdomen: Soft, Nontender, Nondistended, Normal bowel sounds Back: Nontender, Normal Inspection Extremities: Nontender, No edema Skin: Normal color, No rash Neuro: Alert, Oriented x3, Cranial nerves II-XII grossly intact, Normal Strength, Normal Sensation, Normal DTR, Normal Gait. Negative for: Left side facial droop Psychological: Normal affect - NIH Stroke Scale 1a Level of Consciousness: 0 1b LOC Questions (Score 2 if aphasic/stupor): 0 1c LOC Commands (Only score 1st attempt): 0 2 Best Gaze (If aphasic, use reflexive mvmts.): 0 3 Visual: 0 4 Facial Palsy: 0 5 Motor Arm Right (UN = amputation/fusion): 0 5 Motor Arm Left: 0 6 Motor Leg Right: 0 6 Motor Leg Left: 0 7 Limb ataxia (Only + if out of proportion): 0 8 Sensory (Aphasia/stupor=0 or 1, coma=2): 0 9 Best Language: 0 10 Dysarthria (mute, coma=2, intubated=UN): 0 11 Extinction and Inattention (only scored if +): 0 Total Score: 0 Diagnostic/Tx/Re-eval Clinical Impression(s) from Imaging Studies Head/Neck CTA 10/11/19 20:23 IMPRESSION: No significant atherosclerotic disease involving the neck or head. 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 measuring approximately 2.8 x 2.7 mm Electronically Signed: Alfredo King MD at 22:17 EDT , Service support , Laboratory Data 10/11/19 10/11/19 20:20 20:20 WBC 16.0 H RBC 4.42 Hgb 13.4 Hct 41.7 MCV 94.3 MCH 30.3 MCHC 32.1 RDW Std Deviation 45.1 H RDW Coeff of Jeff 13.2 Plt Count 286 MPV 10.7 Immature Gran % (Auto) 0.400 Neut % (Auto) 72.9 H Lymph % (Auto) 19.8 [place] % (Auto) 5.9 Eos % (Auto) 0.6 Baso % (Auto) 0.4 Absolute Neuts (auto) 11.7 H Absolute Lymphs (auto) 3.17 Nucleated RBC % 0 Sodium 140 Potassium 3.9 Chloride 106 Carbon Dioxide 25.0 Anion Gap 9 BUN 22 H Creatinine 0.83 Estim Creat Clear Calc 65.36 Est GFR (MDRD) Af Amer 99 Est GFR (MDRD) Non-Af 81 BUN/Creatinine Ratio 26.6 H Glucose 89 Calcium 9.1 - Medical Decision Making Patient is evaluated for atypical headache with associated left-sided facial pain. Her symptoms have actually significantly improved since 2 days ago but he r PCP insisted she come to the emergency room to be evaluated further because she does have a history of an aneurysm. CT from 2017 showed that patient had a likely 3 mm aneurysm. I did repeat a CTA today to make sure that there is no signs of rupture or worsening given her symptoms and history. Her aneurysm today is measured at 2.7 cm x 2.8 cm. Patient has a normal neurologic exam for me. I do question her episode of facial pain could have been trigeminal neuralgia however her symptoms have since resolved so is hard for me to tell. Patient be discharged home. She is offered Toradol but declines in the emergency room. She is given Phenergan and fluids and has improvement of her nausea. She will is given her a copy of her CTA and will follow up with her neurologist. Patient is counseled on signs and symptoms requiring return to the emergency room. Patient verbalizes agreement and understand this plan. Patient discharged home in stable and improved condition. ED Disposition - Plan for ED Patient: Disposition: Home or Assisted Living Diagnosis: Migraine, Griggs aneurysm of anterior communicating artery Instructions: ED Headache Unspecified Referrals: Jose Luis Toledo DO [Primary Care Provider] -
[2019-10-11 22:00] VITALS: BP 117/67; PULSE 80; RESP 17; O2SAT 100
[2019-10-11 23:03] VITALS: BP 124/79; PULSE 81; RESP 18; O2SAT 99
--- NOTE | 2019-10-11 23:05 | ED.RN ---
THIS NURSE REVIEWED D/C INSTRUCTIONS WITH PT. PT VERBALIZED UNDERSTANDING OF INSTRUCTIONS. IV D/C. IV CATHETER INTACT. PT TOLERATED WELL. PT DENIES FURTHER NEEDS OR QUESTIONS AT THIS TIME
== END 2019-10-11 23:06 | disposition home or self-care (01) ==
PROVIDERS: Emergency Provider Emergency Medicine; PCP Student in an Organized Health Care Education/Training Program
DX: G43.909 Migraine, unspecified, not intractable, without status migrainosus (principal); I67.1 Cerebral aneurysm, nonruptured
CPT/HCPCS: 70496; 70498; 80048; 85025; 96361; 96374; 99283; J7030; Q9967; A4216

== ENCOUNTER 2019-11-23 15:48 | Emergency (ER) | payer MEDICAID, SELFPAY ==
[2019-11-15 13:56] VITALS: BMI 42.0
[2019-11-23 15:48] VITALS: BP 142/96; PULSE 86; RESP 16; TEMP 36.3; O2SAT 99; BMI 43.0
--- NOTE | 2019-11-23 16:16 | ED.DCSUM_ITS ---
History of Present Illness Chief Complaint: Head Injury Informant: Patient Onset: Days Mechanism/Context: Blunt Injury, Fall Quality of Pain: Dull, Aching Location: Occipital headache, Current Severity: Mild Maximum Severity: Moderate Worsened by: light, activity Relieved by: Nothing specific Associated Symptoms: Negative for: Parasthesias, Weakness, Loss of function, Inability to ambulate, Loss of consciousness, Amnesia Narrative: Sangeetha Redd 39-year-old woman who fell backwards off a chair 2 days ago. She hit the back of her head. She denies loss of conscious. She denies being dazed. She states she lied on the floor because she was in shock . She denied neck pain. She denied paresthesia, anesthesia or motor weakness of the upper or lower extremities at time of the incident or presently. She states she saw a chiropractor because of pain that radiated from her right shoulder to her neck and jaw that he attributed to whiplash . Patient does report photophobia. She denies double vision, blurred vision or loss of vision. She denies drainage from her ears or nose. She denies trouble with speech or swallowing. She denies chest pain or shortness of breath. She does report nausea without vomiting. She denies problems with balance. She states she is never had a concussion. She is not on anticoagulant. Tetanus Immunization: <5 years Prior similar symptoms: No Recent Illness/Hospitalization: No - Past Medical History (1) Adenomyosis Status: Acute Comment: discuss nohemi or liletta IUD but neurologist likely disproves, plan flexeril/naproxen and then tvh bs possible laparoscopic in spring. (2) Brain aneurysm Status: Acute (3) Endometriosis determined by laparoscopy Status: Acute (4) History of protein S deficiency Status: Acute (5) PCOS (polycystic ovarian syndrome) Status: Acute Past Medical History - Allergies and Home Meds Allergies/Adverse Reactions: Allergies Penicillins Allergy (Verified 11/23/19 15:48) Unknown Primary Care Physician: Jose Luis Toledo DO [Primary Care Provider] - Prior records reviewed: Yes Surgical History: noncontributory Lives: Spouse/ Significant Other Smoking Status: Never smoker Alcohol: None Drugs: None Review of Systems General: Denies: Chills, Fever, Malaise Eyes: Denies: Visual changes - bilaterally, Blurred Vision - bilaterally, Diplopia ENT: Denies: Bilateral ear pain, Rhinorrhea, Sore throat Cardiovascular: Denies: Chest pain, Palpitations Respiratory: Denies: Dyspnea, Cough, Sputum Gastrointestinal: Reports: Nausea. Denies: Abdominal pain, Vomiting, Diarrhea Genitourinary: Denies: Dysuria, Hematuria, Frequency Musculoskeletal: Reports: Extremity Pain. Denies: Myalgias, Arthralgias, Neck pain, Back pain, Swelling Skin: Denies: Rash, Wounds Neurological: Reports: Headache. Denies: Weakness, Parasthesia, Numbness Psych: Denies: Depression, Anxiety Hematologic: Denies: Easy bruising, Easy bleeding Physical Exam Vital Signs/Narrative: Vital Signs Temp Pulse Resp BP Pulse Ox 11/23/19 15:48 97.3 F L 86 16 142/96 H 99 Inital Vital Signs reviewed: Yes General: Well nourished, Well developed, Obese Head: Normocephalic, Atraumatic, - - No clinical findings of basilar skull fracture. Eyes: Perrl, EOMI, - - There is no subconjunctival hemorrhage.. Negative for: Pale conjunctiva, Scleral icterus ENT: TM's clear, No hemotympanum or drainage, No trauma. Negative for: Hemotympanum, Otorrhea Neck: Nontender, Full ROM, Paraspinal Tenderness. Negative for: Spinal Tenderness Cardiovascular: Regular rate, Regular rhythm, No murmurs, Normal S1, Normal S2 Respiratory: No distress, CTA bilaterally, Chest nontender Abdomen: Soft, Nontender, Nondistended, Normal bowel sounds Rectal: Deferred Back: Nontender. Negative for: CVA Tenderness - Right, CVA Tenderness - Left Skin: Normal color, No rash, No Trauma. Negative for: Cyanosis, Diaphoresis, Jaundice Neurological: Alert, Oriented x3, Cranial nerves II-XII grossly intact, Normal Strength, Normal Sensation Psychological: Normal affect - Glascow Coma Scale Eye Opening: Spontaneous Motor: Obeys Commands Verbal: Oriented Coma Scale Total: 15 Diagnostic/Tx/Re-eval - Medical Decision Making Patient has a concussion. Per the [place] CT head rule and the [place] rules imaging is not indicated. Patient was informed the symptoms she is having is due to the concussion. She was informed that 90 to 95% of individuals will have a concussion may have symptoms of 4 to 6 weeks and it is not uncommon for 5 to 10% to have symptoms up to 1 year. She was instructed to void activities or things that cause her symptoms to be worse. She was offered antiemetic which she declined. ED Disposition - Plan for ED Patient: Disposition: Home or Assisted Living Diagnosis: Concussion without loss of consciousness, initial encounter Instructions: ED Concussion Referrals: Jose Luis Toledo, [Primary Care Provider] - As Needed
[2019-11-23 16:34] VITALS: BP 126/96; RESP 14
== END 2019-11-23 16:34 | disposition home or self-care (01) ==
PROVIDERS: Emergency Provider Emergency Medicine; PCP Student in an Organized Health Care Education/Training Program
DX: S06.0X0A Concussion without loss of consciousness, initial encounter (principal); R40.2410 Glasgow coma scale score 13-15, unspecified time; W07.XXXA Fall from chair, initial encounter; Y93.9 Activity, unspecified; Y92.9 Unspecified place or not applicable; E66.9 Obesity, unspecified; E28.2 Polycystic ovarian syndrome; Z86.2 Personal history of diseases of the blood and blood-forming organs and certain disorders involving the immune mechanism; Z79.899 Other long term (current) drug therapy
CPT/HCPCS: 99282

== ENCOUNTER → 2020-06-05 10:37 | Outpatient (CLI) | payer MEDICAID, SELFPAY ==
[2020-05-10 09:01] VITALS: BMI 47.8
[2020-05-17 11:35] VITALS: BMI 47.3
--- NOTE | 2020-06-05 10:39 | BI_ITS ---
MAMMOGRAPHY - BILATERAL SCREENING REASON FOR EXAM: Female, 40 years old. Routine annual screening examination. PERTINENT HISTORY: Mother with breast cancer. TECHNIQUE: Digital bilateral breast keenan (3D mammographic acquisition) in the CC and MLO projections. 2-D mediolateral oblique (MLO) and craniocaudad (CC) views of both breasts were obtained. CAD: Full Field Digital Mammography with Computer Added Detection was performed. COMPARISON: Comparison is made with prior study dated 04/12/2018 and 04/04/2013. FINDINGS: Breast Composition: There are scattered areas of fibroglandular density. There are no dominant masses or suspicious calcifications. Stable asymmetry of breast tissue were more breast tissue is seen in the upper outer quadrant of the left breast as compared to the right side. No other significant abnormalities are identified. There has been no significant change since the prior study. BI/SCRN MAMM (CAD)W/KEENAN BILAT IMPRESSION: Stable bilateral screening mammogram. Yearly follow-up mammogram recommended. (A) ASSESSMENT CATEGORY: BIRADS Category 2: Benign. A letter regarding these results will be sent to the patient by the facility within 30 days. Approximately 10% of breast cancers are not detected by mammography. A normal mammogram should not delay biopsy of a clinically suspicious abnormality. [id number] Electronically Signed: Siva Jacobs MD at 12:02 EST , Service support ,
== END ==
PROVIDERS: PCP Student in an Organized Health Care Education/Training Program; Referring Provider Obstetrics & Gynecology; Visit Provider Obstetrics & Gynecology
DX: Z12.31 Encounter for screening mammogram for malignant neoplasm of breast (principal)
CPT/HCPCS: 77063; 77067

== ENCOUNTER → 2020-06-14 09:47 | Outpatient (CLI) | payer MEDICAID, SELFPAY ==
[2020-05-17 11:35] VITALS: BMI 47.3
[2020-06-05 14:40] VITALS: BMI 47.5
--- NOTE | 2020-06-14 09:49 | ECHOCS_ITS ---
Reason For Study: ARRHYTHMIA Procedure This was a 2D Doppler, Color Flow transthoracic echocardiogram. The study was technically difficult. Contrast injection was performed. Exam performed in department. Left Ventricle Normal LV size. Left ventricular systolic function is normal. The estimated ejection fraction is 65 %. No evidence for diastolic dysfunction. No regional wall motion abnormalities noted. Right Ventricle Normal RV size. Normal systolic function. Atria Normal left atrium. Normal right atrium. No doppler evidence for ASD. Mitral Valve There is no mitral annular calcification. Mild diffuse mitral valve thickening. Trivial mitral valve insufficiency. Tricuspid Valve Normal tricuspid valve. Trivial tricuspid valve insufficiency. Right ventricular systolic pressure estimated to be 23 mmHg. Aortic Valve Trisinus/trileaflet aortic valve. Normal aortic valve. Pulmonic Valve The pulmonic valve is not well visualized. Great Vessels Normal sized aortic root. Pericardium/Pleural No pericardial effusion. Medication 22 gauge I.V. with prn adaptor inserted into left arm. Diluted definity 3.0ml given slow IV push to enhance endocardial definition. MMode/2D Measurements & Calculations LVIDd: 4.8 cm IVSd: 0.62 cm LAV(MOD-bp): 27.1 ml LVIDs: 3.4 cm LVPWd: 0.73 cm RVDd: 3.0 cm FS: 29.3 % LAV(MOD-bp) Indexed: 13.4 ml/m2 LAV(MOD-sp2): 32.1 ml LAV(MOD-sp4): 21.7 ml SV(MOD-sp4): 59.7 ml SV(sp4-el): 63.1 ml LVAd ap4: 32.4 cm2 EDV(MOD-sp4): 108.9 ml EDV(sp4-el): 113.7 ml LVAs ap4: 19.9 cm2 ESV(MOD-sp4): 49.2 ml ESV(sp4-el): 50.5 ml EF(MOD-sp4): 54.8 % EF(sp4-el): 55.5 % LA dimension(2D): 3.8 cm LA A4 area: 11.5 cm2 RA A4 area: 10.3 cm2 Time Measurements MV dec time: 0.22 sec Doppler Measurements & Calculations MV E max mario: 74.2 cm/sec Lat Peak E' Mario: 11.4 cm/sec Med Peak E' Mario: 8.3 cm/sec MV A max mario: 63.8 cm/sec E/E' lat: 6.5 E/E' med: 9.0 MV E/A: 1.2 Ao V2 max: 127.2 cm/sec LV V1 max: 88.9 cm/sec TR max mario: 225.2 cm/sec Ao max P.5 mmHg LV V1 max P.2 mmHg TR max P.3 mmHg Interpretation Summary The study was technically difficult. Contrast injection was performed. Left ventricular systolic function is normal. The estimated ejection fraction is 65 %. Mild diffuse mitral valve thickening. Trivial mitral valve insufficiency. Trivial tricuspid valve insufficiency. Right ventricular systolic pressure estimated to be 23 mmHg. No evidence for diastolic dysfunction. Ordering Physician: Mikhail aGrcía Referring Physician: KELLEE ROMAN Performed By: Ivone Candelario, RDCS, RVT
--- NOTE | 2020-06-14 10:40 | US_ITS ---
STUDY: ULTRASOUND OF THE FEMALE PELVIS - COMPLETE REASON FOR EXAM: Female, 40 years old. Menorrhagia LMP: 05/21/2020. TECHNIQUE: Transabdominal and Transvaginal TECHNICAL QUALITY: Adequate. COMPARISON: Comparison is made with prior examination dated 04/08/2019. FINDINGS: The uterus is anteverted and is in a midline position. The uterus measures 8.4 cm x 6 cm x 4 cm. There is a Nabothian cyst of the cervix. The endometrium measures 7 mm in thickness, and is hyperechoic. There is no demonstrated endometrial mass. There is no demonstrated myometrial mass. I.U.D. - The patient does not have an I.U.D. The right ovary is visualized. The right ovary measures 4.5 cm x 2 cm x 2.3 cm. There is no right ovarian cyst or ovarian mass. There is no visualized right adnexal mass or complex lesion. There is normal arterial and normal venous vascularity. The left ovary is visualized. The left ovary measures 3 cm x 1.9 cm x 1.8 cm. There is no left ovarian cyst or ovarian mass. There is no visualized left adnexal mass or complex lesion. There is normal arterial and normal venous vascularity. There is minimal fluid in the cul-de-sac. The pre void volume of the bladder was 248 ml. US/Pelvic (Non ) IMPRESSION: Minimal free fluid in the cul-de-sac. Electronically Signed: Siva Jacobs MD at 13:10 EST , Service support ,
--- NOTE | 2020-06-14 10:40 | US_ITS ---
STUDY: ULTRASOUND OF THE FEMALE PELVIS - COMPLETE REASON FOR EXAM: Female, 40 years old. Menorrhagia LMP: 05/21/2020. TECHNIQUE: Transabdominal and Transvaginal TECHNICAL QUALITY: Adequate. COMPARISON: Comparison is made with prior examination dated 04/08/2019. FINDINGS: The uterus is anteverted and is in a midline position. The uterus measures 8.4 cm x 6 cm x 4 cm. There is a Nabothian cyst of the cervix. The endometrium measures 7 mm in thickness, and is hyperechoic. There is no demonstrated endometrial mass. There is no demonstrated myometrial mass. I.U.D. - The patient does not have an I.U.D. The right ovary is visualized. The right ovary measures 4.5 cm x 2 cm x 2.3 cm. There is no right ovarian cyst or ovarian mass. There is no visualized right adnexal mass or complex lesion. There is normal arterial and normal venous vascularity. The left ovary is visualized. The left ovary measures 3 cm x 1.9 cm x 1.8 cm. There is no left ovarian cyst or ovarian mass. There is no visualized left adnexal mass or complex lesion. There is normal arterial and normal venous vascularity. There is minimal fluid in the cul-de-sac. The pre void volume of the bladder was 248 ml. US/Transvaginal Non- IMPRESSION: Minimal free fluid in the cul-de-sac. Electronically Signed: Siva Jacobs MD at 13:10 EST , Service support ,
== END ==
PROVIDERS: PCP Student in an Organized Health Care Education/Training Program; Referring Provider Internal Medicine Cardiovascular Disease; Visit Provider Internal Medicine Cardiovascular Disease
DX: N92.1 Excessive and frequent menstruation with irregular cycle (principal); R00.0 Tachycardia, unspecified; R07.9 Chest pain, unspecified; E03.9 Hypothyroidism, unspecified; G47.33 Obstructive sleep apnea (adult) (pediatric)
CPT/HCPCS: 76830; 76856; 93306; Q9957; A4216; C8929

== ENCOUNTER → 2020-06-25 | Outpatient (CLI) | payer MEDICAID, SELFPAY ==
[2020-06-25 10:11] VITALS: BMI 47.5
[2020-06-29 20:07] LABS: HPV Genotype 16, Aptima Negative (Negative)
[2020-06-29 20:55] LABS: HPV APTIMA, High Risk Positive (Negative); HPV Genotype 18,45 Aptima Negative (Negative)
== END | disposition home or self-care (01) ==
LOC: LABSPEC 16:30
PROVIDERS: PCP Student in an Organized Health Care Education/Training Program; Referring Provider Obstetrics & Gynecology; Visit Provider Obstetrics & Gynecology
DX: Z12.4 Encounter for screening for malignant neoplasm of cervix (principal)
CPT/HCPCS: 87624; 88175; G0145

== ENCOUNTER 2020-09-11 06:45 | Day surgery (SDC) | payer MEDICAID, SELFPAY ==
[2020-06-25 10:11] VITALS: BMI 47.5
[2020-08-30 12:52] VITALS: BMI 48.1
[2020-09-10 10:25] LABS: Hemoglobin 13.1 g/dL (12.0-15.0); Mean Corpuscular Hgb 29.7 pg (27.0-32.0); Platelet Count 276 K/mm3 (150-450); RBC Distribution Width CV 12.9 % (11.6-14.6); RBC Distribution Width SD 44.3 fl (35.1-43.9); Red Blood Count 4.41 M/mm3 (4.2-5.4); White Blood Count 9.3 K/mm3 (4.4-11.0)
[2020-09-10 11:15] LABS: Anion Gap 6 (5-15); BUN 13 mg/dL (7-18); BUN/Creat Ratio 19.5 RATIO (10-20); Calcium,Total 8.3 mg/dL (8.5-10.1); Chloride 106 mmol/L (98-107); Creatinine, Serum 0.67 mg/dL (0.55-1.02); EST Glomerular Filtration Rate 104 mL/min (>60); Est Glom Filt Rate - Afr Amer 125 mL/min (>60); Estimated Creatinine Clearance 80.17 ml/min; Glucose 88 mg/dL (74-106); Sodium Level 139 mmol/L (136-145); Thyroid Stim Hormone (TSH) 3.57 uIU/mL (0.358-3.74)
[2020-09-11] VITALS (18 sets, daily range): BP systolic 102–175; BP diastolic 59–85; PULSE 51–99; RESP 16–18; TEMP 36.1–37.4; O2SAT 93–100; BMI 48.6
--- NOTE | 2020-09-11 01:27 | HP.PCM_ITS ---
History and Physical Date of Admission: 09/11/20 Intake Vital Signs 08/09/20 Height 5 ft 08/09/20 Weight: 246 lb 8 oz 08/09/20 BMI 48.1 08/09/20 BP 118/78 Intake Visit Reasons: needs medicaid form signed for surgery Decal Maker Required: No Is patient in pain?: No Allergies Penicillins Allergy (Verified 08/09/20 13:31) Unknown Medications Lorazepam [Ativan] 0.5 mg PO DAILY PRN PRN 11/23/19 [History Confirmed 08/09/20] levothyroxine 88 mcg capsule 88 mcg PO DAILY 05/10/20 [History Confirmed 08/09/20] clobetasol 0.05 % topical ointment 1 applic TOPICAL QHS PRN g 05/17/20 [History Confirmed 08/09/20] naproxen 500 mg tablet 500 mg PO BID-TID PRN #60 tab 06/25/20 [Rx Confirmed 08/09/20] buspirone 10 mg tablet 5 mg PO BID #60 tablet 08/09/20 [Rx Confirmed 08/09/20] Post menopausal: No Patient : No : No PFSH Medical History Chest pain (Acute) Tachycardia (Acute) CADENCE (obstructive sleep apnea) (Chronic) Hypothyroidism (Chronic) Brain aneurysm (Chronic) Back pain (Acute) Empty sella (Acute) Fatigue (Acute) History of PCOS (Acute) IBS (irritable bowel syndrome) (Acute) Intervertebral disc degeneration (Acute) Limb weakness (Acute) Migraines (Acute) Stomach ulcer (Acute) Thyroid disease (Acute) Thyroid nodule (Acute) complex migraine (Acute) Fibromyalgia (Chronic) Surgical History History of appendectomy (Resolved) History of cholecystectomy (Resolved) History of extraction of renal calculus (Resolved) [place] teeth extracted (Resolved) Family History Grandmother Hypertension Brother Diabetes Grandfather CVA (cerebral vascular accident) Father Hypertension Mother Supraventricular tachycardia Other Breast cancer Heart disease Thyroid disorder Social History (Updated 08/09/20 @ 14:[address] Zoë Griffith MD) Smoking Status: Never smoker alcohol intake: current alcohol intake frequency: holidays/special occasions only details: social substance use type: does not use diet: other caffeine: Yes what type of physical activity do you participate in: walking, weight training seatbelt use: always do you feel safe at home: Yes HPI needs medicaid form signed for surgery: Details: SAMMY TRAN is a 40 year old who presents for preop visit planning TVHBS for heavy irregular bleeding. She has had increasingly irregular heavy menses for the last few months and total for several years. She hasn't had improvement in bleeding with nsaids or rest. She is not a hormonal candidate due to migraines. She had a normal EMB in the past. US showed 8.4 cm uterus. Female Reproductive History Cycle Length: 21-35 Bleeding Duration: 10 Questions: Metorrhagia: No, Sexually active: Yes, Dyspareunia: No, PCB: No Pregancy History 5 Elective abortions Hx Para 2 Spontaneous abortions 3 Hx # Term Pregnancies 2 Ectopic pregnancies Hx # Pregnancies Multiple births # of living children 2 Past Pregnancies Del. Date Name GA/Weeks Outcome Route Bth Weight [facility] F[facility] Unknown Magdalena 2002 Unknown Darron 2009 ROS Const Constitutional: Denies fatigue, fever(s), headache(s), increased appetite, poor appetite, weight gain or weight loss ENT ENT: Reports system reviewed and no additional complaints, except as docu Cardio Card: Denies chest pain Resp Resp: Denies cough or dyspnea GI GI: Reports as per HPI, abdominal pain (RUQ pain intemrittent since lap phi), bloating, constipation and nausea; denies vomiting : Reports as per HPI; denies difficulty urinating, painful urination, nipple discharge, urinary frequency, urinary incontinence, urinary hesitancy, urinary urgency, vaginal d ischarge, vaginal dryness, vaginal odor or vaginal itching Musc Musc: Denies joint pain, back pain or muscle weakness Skin Skin/Breast: Denies change in hair, breast lump, breast pain, breast skin sherin nges or nipple discharge Neuro Neuro: Reports system reviewed and no additional complaints, except as docu Psych Psych: Reports system reviewed and no additional complaints, except as docu Endo Endo: Denies cold intolerance, excessive sweating, heat intolerance or increased thirst Florencio/Lymph Hematologic/Lymphatic: Denies easy bleeding, Denies easy bruising, Denies enlarged lymph nodes Exam Const General: cooperative, healthy appearing, comfortable, no acute distress, well developed Orientation: alert [facility] Head: normal to inspection, normocephalic Ears: hearing grossly normal bilaterally, external ears normal Nose: external nose normal, nares normal Face and sinus: normal facial exam Neck Neck: normal visual inspection, trachea midline Thyroid: thyroid normal Chest Chest palpation & inspection: normal inspection of the chest Resp Effort & Inspection: normal respiratory effort Auscultation: clear to auscultation bilaterally Cardio Rate: regular rate Rhythm: regular rhythm Heart Sounds: S1 normal, S2 normal GI Inspection: normal to inspection, non-distended Palpation: soft, no hepatosplenomegaly General: bladder normal to palpation External Female Exam: abnormal external appearance, normal appearance of the urethra, external lesions (right supraclitoral lichenification patch) Urethra: normal appearance of the urethra, normal palpation, no discharge Speculum Exam - Vagina: normal appearance of the vagina, normal vaginal discharge Speculum Exam - Cervix: normal appearance of the cervix, nontender Bimanual Exam- Vagina & Uterus: normal bimanual exam, uterine size normal, bl adder normal to palpation, uterine shape normal, No cervical tenderness, uterine mobility normal, uterine consistency normal, normal cervical palpation, uterus non-tender Bimanual Exam- Adnexa, other: normal adnexae, adnexae mobile, no adnexal masses, pelvic support normal Pelvic Support: normal Musc Other: gross motor intact no deficits, full bilateral strength Skin General: no rashes or lesions noted Neuro General: alert, awake, moves all extremities, no focal motor deficits Motor: muscle tone normal throughout Extrem General: normal to inspection, no pedal edema Psych Appearance: grossly normal Mental Status: mental status grossly normal Affect: normal affect Speech and Movement: speech and movement normal Assessment & Plan Assessment/Plan (1) Brain aneurysm: (2) PCOS (polycystic ovarian syndrome): (3) Endometriosis determined by laparoscopy: (4) Adenomyosis: PLAN: plan TVH BS (5) Menorrhagia with irregular cycle: PLAN: After discussing the patient's diagnosis and treatment plan options, patient wishes to proceed with surgical management. I have discussed with the patient the risks, benefits, and alternatives of the procedure which include but are not limited to risks of anesthesia, bleeding, infection, possible damage to bowel, bladder, or surrounding vasculature which could lead to additional surgery to evaluate any complications. Patient agrees to procedure and wishes to proceed. ACOG/uptodate references given for additional information regarding procedure. UPDATE- I have seen the patient and performed any clinically relevant updates to the history and physical exam. Zoë Griffith MD
[2020-09-11 07:28] LABS: Internal QC Validated? YES +Cl - CLEAR BKGD; Pregnancy, Urine Negative Negative
[2020-09-11 07:35] LABS: Bedside Glucose 85 mg/dL (70-110)
[2020-09-11] MEDS: Celecoxib 200 MG Capsule 400 MG PO (07:44)
[2020-09-11] MEDS: Gabapentin 600 MG Tablet PO (07:45)
[2020-09-11] MEDS: Phenazopyridine 95 MG Tablet 190 MG PO (07:45)
[2020-09-11] MEDS: Enoxaparin 40 MG/0.4 ML Syringe SC ×2 (07:46→22:30)
[2020-09-11] MEDS: Acetaminophen 500 MG Tablet 1000 MG PO ×3 (07:50→17:41)
[2020-09-11] MEDS: Lactated Ringers 1,000 ML 40 ML IV ×2 (08:22→10:30)
[2020-09-11] MEDS: dexAMETHasone 10 MG/ML Vial 8 MG IV (08:26)
[2020-09-11] MEDS: Scopolamine 1mg/72hr Patch 1 PATCH TD (08:40)
--- NOTE | 2020-09-11 09:00 | HYST_PTH ---
PATIENT: SAMMY TRAN LOC: [facility] – [place] U#:[id number] AGE/SX: 40/F ROOM: RE09/11/[address]: Dr. Zoë Griffith MD : 1980 BED: DIS: 09/12/2020 SPEC #: [id number] RECD: 09/11/20 11:08 STATUS: MACEY NOEL #: [id number] ARTIS: 09/11/20 09:[address]: Zoë Griffith DEPT: SURGICAL PATHOLOGY RECD BY: Beverly Diez ENTERED: 09/11/20 11:28 SP TYPE: HYSTERECT OTHR DR: Dr. Jose Luis Toledo, DO Tissues: Uterus, NOS Procedures: Surgery Specimen Level V HEADER OPERATION: ERAS, vaginal hysterectomy, salpingectomy PRE-OP DIAGNOSIS: Polycystic ovarian syndrome; menorrhagia with irregular cycle TISSUE SUBMITTED: Uterus, cervix and bilateral fallopian tubes MICROSCOPIC DIAGNOSIS Uterus, hysterectomy: Cervix ? nabothian cysts and mild chronic inflammation. Endometrium ? secretory endometrium. Myometrium ? focal superficial adenomyosis. Right and left fallopian tubes ? no pathologic change. AM:kisha 09/12/2020 MICROSCOPIC DESCRIPTION Slides are reviewed. GROSS DESCRIPTION Received in fixative is one container labeled with the patient's name and designated uterus, cervix and bilateral fallopian tubes. The specimen consists of a hysterectomy specimen consisting of uterus with cervix and detached bilateral fallopian tubes. The uterus with cervix weighs 108 gm and measures 9.5 x 6 x 4 cm. The serosal surface is gonzalez, glistening. The ectocervical mucosa is unremarkable. The external os is oval in contour. The endocervical canal measures 3 cm in length and the endocervical mucosa is gonzalez, glistening and unremarkable. Sections of the cervix reveal multiple cysts filled with mucoid material. The triangular endometrial cavity measures 5 cm in length and up to 2 cm in width. The endometrium is gonzalez, glistening without any mass lesion and measures 0.1 cm in thickness. Sections of the uterine wall do not reveal any mass lesion and measures 2.5 cm in thickness. The detached fallopian tubes are not identified as right or left and measures 5 cm in length and 0.5 cm in diameter and 2.5 cm in length and 0.5 cm in diameter. Fimbrial ends are identified. Sections reveal unremarkable cut surfaces. Video Rental Clerk sections are submitted in eight cassettes as follows: 1 - anterior cervix, 2 - posterior cervix, 3 & 4 - anterior uterine wall, 5 & 6 - posterior uterine wall, 7 & 8 - each cassette containing one fallopian tube. The smaller fallopian tube is submitted in cassette 8, entirely submitted. / DANIELLE:kisha 09/11/20 TC:5 CPT: 54194
--- NOTE | 2020-09-11 10:53 | OP.PCM_ITS ---
Problems Associated Problem List Diagnoses (1) Hx of protein S deficiency: (2) PCOS (polycystic ovarian syndrome): (3) Adenomyosis: (4) Brain aneurysm: (5) Menorrhagia with irregular cycle: Report of Operation Date of Procedure: 09/11/20 Pre-Operative Diagnosis: see problem list Post-Operative Diagnosis: same Surgery/Procedure Performed:: TVH BS diesel pile hammer operator: Justo Paz Type of Anesthesia: General Special Medications: none Specimen's removed: uterus, tubes Drains: gonzalez Estimated Blood Loss (mL): 100 Fluids Replaced: crystalloid Description of Procedure: Patient was taken to the operating room and was placed under general anesthesia was prepped and draped in normal sterile fashion in the dorsal lithotomy position. Preoperative antibiotics and SCDs and Gonzalez catheter was placed inside the bladder. Weighted speculum was placed in the vagina and the anterior and posterior lip of the cervix was grasped with 2 Morris clamps and circumferentially injected with dilute vasopressin. A circumferential incision was made with a scalpel and the posterior cul-de-sac was entered into sharply and a longneck speculum was placed. The anterior cul-de-sac was also dissected down and entered into sharply and the uterosacral ligaments were clamped cut and suture ligated bilaterally followed by the cardinal ligaments which were Clamped cut and suture ligated bilaterally with 0 Monocryl. The uterus serially descended and progressive bites were taken bilaterally up to the level of the utero-ovarian ligament bilaterally which was clamped transected and double ligated with 0 Monocryl suture and 0 Vicryl free tie. Bilateral fallopian tubes and ovaries were well visualized and noted be within normal limits and the bilateral fallopian tubes were transected across the base with a Jammie clamp and removed and sutured with 0 Vicryl suture. Excellent hemostasis was noted. Posterior peritoneum was reapproximated with 2-0 Vicryl and a modified Álvarez stitch was placed through the posterior vaginal cuff and bilateral uterosacral ligaments across the posterior cul-de-sac skimming along to provide apical support to the vagina. The vagina was closed with [id number] 0 Vicryl pop offs including the posterior and anterior peritoneum in the reapproximation. Excellent hemostasis was noted. All instruments removed from the vagina clear urine was noted at the end of the procedure and patient was awoken and taken recovery in stable condition. Grafts/Implants Used: none Complications none Admit VTE Documentation VTE Present on Admission: No VTE Mechan Device Prophylaxis: SCD's VTE Pharm Prophylaxis ordered?: Yes Procedures Urinary/Genital 52xxx-59xxx: [id number] TVH+BS/O <250gr uterus
--- NOTE | 2020-09-11 11:02 | PCM.DC ---
Discharge Instructions Diet Discharge Diet: No restrictions Activity Discharge Activity: Return to Normal Activity, May Not Drive (while taking narcotic pain medications.) and May Shower May resume sexual activity in: 6-8 weeks Dressing / Incision Call your doctor if your incision/area has: Continuous Slow Oozing, Sudden Increased Bleeding, Increased Pain/ Swelling, Increased Redness and Foul Smelling Discharge Call your doctor if you observe: Fever of 101 or Higher, Inability to urinate, Inability to have a bowel movement and Using more than one pad per hour Follow Up Care Please Follow Up With: Zoë Griffith MD Test Results: Test results from this visit will be discussed in further detail at your follow-up appointment, if applicable. Discharge Plan Admission Primary Reason for Your Visit: hysterectomy Attending Provider: Zoë Griffith Primary Care Provider: Jose Luis Toledo Discharge Orders/Prescriptions Prescriptions: New oxycodone-acetaminophen [Endocet] 5-325 mg tablet 1 tab PO Q4H PRN (Reason: pain) 7 Days Qty: 20 RF: 0 enoxaparin [Lovenox] 40 MG/0.4 ML syringe 40 mg SQ BID 14 Days Qty: 20 RF: 1 naproxen 250 MG tablet 250 - 500 mg PO Q8H PRN PRN (Reason: MILD PAIN) Qty: 30 RF: 1 Continued levothyroxine 88 mcg capsule 88 mcg PO MOTUWETHFRSA RF: 0 naproxen 500 mg tablet 500 mg PO BID-TID PRN (Reason: pain) Qty: 60 RF: 6 buspirone 10 mg tablet 5 mg PO BID PRN (Reason: Anxiety) RF: 0 betamethasone valerate 0.1 % ointment 1 applic topical DAILY Qty: 45 RF: 4 lorazepam 0.5 MG tablet 0.5 mg PO DAILY PRN PRN (Reason: Anxiety) RF: 0 Advil PM 200-38 mg Tablet 1 cap PO QHS RF: 0 albuterol sulfate 90 mcg/actuation Hfa Aerosol Inhaler 1 inh INHALATION Q6H PRN (Reason: anxiety/sob) RF: 0 Discontinued Azo Probiotic 1 tab PO/SL DAILY RF: 0 Referrals / Follow Up: Jose Luis Toledo DO [Primary Care Provider] - Zoë Griffith MD [STAFF PHYSICIAN] -
[2020-09-11] MEDS: Ketorolac 30 MG/ML Syringe IV ×2 (14:40→19:01)
[2020-09-11] MEDS: oxyCODONE 5 MG Tablet PO ×2 (15:25→20:01)
[2020-09-11 17:57] LABS: Hematocrit 38.6 % (37-47); Hemoglobin 12.5 g/dL (12.0-15.0); Mean Corp Hgb Conc 32.4 g/dL (32-36); Mean Corpuscular Hgb 29.9 pg (27.0-32.0); Mean Corpuscular Volume 92.3 fL (81-99); Platelet Count 287 K/mm3 (150-450); RBC Distribution Width CV 13.1 % (11.6-14.6); RBC Distribution Width SD 44.2 fl (35.1-43.9); Red Blood Count 4.18 M/mm3 (4.2-5.4); White Blood Count 15.5 K/mm3 (4.4-11.0)
[2020-09-11] MEDS: Lactated Ringers 1,000 ML 70 ML IV (19:01)
[2020-09-11] MEDS: Docusate Sodium 100 MG Capsule PO (22:29)
[2020-09-11] MEDS: LORazepam 0.5 MG Tablet PO (22:42)
[2020-09-12] VITALS (7 sets, daily range): BP systolic 113–134; BP diastolic 59–73; PULSE 60–74; RESP 16–18; TEMP 36.7–37; O2SAT 93–97
[2020-09-12] MEDS: Acetaminophen 500 MG Tablet 1000 MG PO ×2 (00:09→08:26)
[2020-09-12] MEDS: 0.9% Saline Lock 10 ML Syringe IV ×3 (01:40→08:29)
[2020-09-12] MEDS: Ketorolac 30 MG/ML Syringe IV ×2 (01:40→08:26)
[2020-09-12] MEDS: Levothyroxine 88 MCG Tablet PO (06:34)
--- NOTE | 2020-09-12 08:31 | PCM.PN.OB ---
Subjective Subjective patient recovering well, denies CP, SOB, N, or V. tolerating adequate po, and pain is controlled. Vásquez still in place. Has been up to chair/ambulate Objective Data Objective Data Vital Signs: Vital Signs Temp Pulse Resp BP Pulse Ox 98.5 F 74 18 114/73 97 09/12/20 08:21 09/12/20 08:21 09/12/20 08:21 09/12/20 08:21 09/12/20 08:21 Oxygen Flow Rate (L/min) 2 Oxygen Delivery Method Room Air Weight: 249 lb Body Mass Index (BMI) 48.6 Intake & Output: Intake and Output for Last 24 Hours 09/10/20 09/11/20 09/12/20 23:59 23:59 23:59 Intake Total 2208.25 / 2208.25 1109.67 / 1109.67 Output Total 1550 / 1550 600 / 600 Balance 658.25 / 658.25 509.67 / 509.67 Lab / Micro Data Result Diagrams: 09/11/20 17:05 09/10/20 09:31 Labs: Laboratory Results - last 24 hr 09/11/20 17:05 WBC 15.5 H RBC 4.18 L Hgb 12.5 Hct 38.6 MCV 92.3 MCH 29.9 MCHC 32.4 RDW Std Deviation 44.2 H RDW Coeff of Jeff 13.1 Plt Count 287 MPV 10.0 Micro: Microbiology 09/10/20 09:25 Interface Orders SARS-CoV-2 Antigen (Rapid) - Final Physical Exam Const alert, oriented x3 and no apparent distress Resp normal respiratory effort GI soft to palpation and non-distended Narrative: Minimal drainage on peripad Bladder / Kidney Exam: catheter in place Assessment & Plan (1) S/P vaginal hysterectomy: (2) Hx of protein S deficiency: COMMENT: plan lovenox x 2 weeks postop PLAN: patient is s/p TVH BS POD 1 1. routine ERAS protocol postop care- increase ambulation, encourage oral intake and oral control of pain. lovenox and scds for dvt prophylaxis, patient stable for discharge to home.
[2020-09-12] MEDS: Docusate Sodium 100 MG Capsule PO (09:54)
--- NOTE | 2020-09-12 10:12 | PHA.DC.MC ---
Addendum entered and electronically signed by Mattie Hanson 09/12/20 10:17: Patient would like medications delivered to her room. This [facility] called retail pharmacy and asked them to deliver. Original Note: Pharmacy Service has performed discharge medication reconciliation and counseling for this patient. 1. ENOXAPARIN 40MG SC BID X 14 DAYS 2. OXYCODONE/ACETAMINOPHEN 5/325MG 1T PO Q4H PRN PAIN The patient's discharge medication list was reviewed for discrepancies and discrepancies were resolved. This [facility] advised patient to avoid taking home Advil PM if she takes naproxen. Patient asked if she can take Tylenol. This [facility] advised patient that Percocet has Tylenol in it so it is best to avoid plain Tylenol while taking the Percocet, but if not taking Percocet its okay to take Tylenol. Home Medications lorazepam 0.5 mg PO DAILY PRN PRN 11/23/19 naproxen 500 mg tablet 500 mg PO BID-TID PRN #60 tab 06/25/20 buspirone 10 mg tablet 5 mg PO BID PRN tablet 08/23/20 levothyroxine 88 mcg capsule 88 mcg PO MOTUWETHFRSA 08/23/20 betamethasone valerate 0.1 % topical ointment 1 applic TOPICAL DAILY #45 g 08/30/20 Advil PM 1 cap PO QHS 09/04/20 albuterol sulfate 1 inh INHALATION Q6H PRN 09/04/20 enoxaparin [Lovenox] 40 mg SQ BID 14 Days #20 ml 09/11/20 naproxen 250 - 500 mg PO Q8H PRN PRN #30 tab 09/11/20 oxycodone-acetaminophen [Endocet] 1 tab PO Q4H PRN 7 Days #20 tab 09/11/20 The patient was counseled on the following discharge medications and changes in medications for homegoing were reviewed. The Reason for Use, instructions for use, and potential side effects were reviewed for all new medications. The patient's questions regarding all of their medications were answered. The patient was able to verbally demonstrate an understanding of their discharge medications.
[2020-09-12] MEDS: oxyCODONE 5 MG Tablet PO (11:01)
--- NOTE | 2020-09-12 13:02 | CHAPLAIN ---
Type of Pastoral Visit _x__ Initial Visit ___ Follow-up Visit ___ On-call Visit ___ General Patient Visit ___ Spiritual Assessment ___ Family Conference ___ Bereavement ___ Rapid Response ___ Code Blue ___ Other (describe below) Pastoral Care Referral From _x__ Patient ___ Family ___ Nurse ___ Physician ___ Engineer Remote Control Diesel ___ Rehab Therapist ___ Other (describe below) Sacrament/Intervention ___ Active listening ___ Anointing ___ Congregational ___ Bereavement ___ Communion ___ Delores exploration ___ ___ Life review ___ Prayer ___ Reconciliation ___ Sacrament of Sick _x__ Supportive presence ___ Wedding ___ Other (describe below) Pastoral Comments
== END 2020-09-12 13:25 | disposition home or self-care (01) ==
LOC: SDC 06:46 → AC 06:46 → MS3 09-12 09:00
PROVIDERS: Anesthesiology; PCP Student in an Organized Health Care Education/Training Program; Referring Provider Obstetrics & Gynecology; Visit Provider Obstetrics & Gynecology
PROC: (CPT 58260; principal; 2020-09-11 08:40)
DX: N80.0 Endometriosis of uterus (principal); N88.8 Other specified noninflammatory disorders of cervix uteri; N92.1 Excessive and frequent menstruation with irregular cycle; E28.2 Polycystic ovarian syndrome; D68.59 Other primary thrombophilia; I67.1 Cerebral aneurysm, nonruptured; E03.9 Hypothyroidism, unspecified; K58.9 Irritable bowel syndrome, unspecified; M79.7 Fibromyalgia; F41.9 Anxiety disorder, unspecified; G47.33 Obstructive sleep apnea (adult) (pediatric); G25.81 Restless legs syndrome; G43.909 Migraine, unspecified, not intractable, without status migrainosus; Z86.2 Personal history of diseases of the blood and blood-forming organs and certain disorders involving the immune mechanism; Z87.19 Personal history of other diseases of the digestive system; Z79.899 Other long term (current) drug therapy
CPT/HCPCS: 00944; 58262; 36415; 80048; 81025; 82962; 83735; 84443; 85027; 86850; 86900; 86901; 87426; 88307; 94762; 99251; C9803; J7120; A4216; G0463; J2405

== ENCOUNTER → 2020-09-25 | Outpatient (CLI) | payer MEDICAID, SELFPAY ==
[2020-09-25 14:56] VITALS: BMI 48.6
== END | disposition home or self-care (01) ==
PROVIDERS: PCP Student in an Organized Health Care Education/Training Program; Visit Provider Nurse Practitioner Women's Health
DX: R30.0 Dysuria (principal)
CPT/HCPCS: 87086; 87088

== ENCOUNTER 2020-10-25 23:52 | Emergency (ER) | payer MEDICAID, SELFPAY ==
[2020-10-22 10:42] VITALS: BMI 48.6
[2020-10-25 23:53] VITALS: BP 158/101; PULSE 105; RESP 24; TEMP 37; O2SAT 96; BMI 49.3
--- NOTE | 2020-10-25 23:54 | EKG12_ITS ---
Test Reason : CP Blood Pressure : / mmHG Vent. Rate : 094 BPM Atrial Rate : 094 BPM P-R Int : 146 ms QRS Dur : 082 ms QT Int : 364 ms P-R-T Axes : 036 022 015 degrees QTc Int : 455 ms Normal sinus rhythm Normal ECG Confirmed by MARCUS GARZA, МАРИНА ([id number]), editorial project manager BRITTNEE DEVRIES ([id number]) on 10/26/2020 1:02:56 PM Referred By: PC Confirmed By:МАРИНА VELAZQUEZ MD
[2020-10-26 00:09] LABS: Absolute Lymphocyte Count 4.03 X10^3/uL (0.83-4.51); Absolute Neutrophil Count 8.2 X10^3/uL (2.0-7.7); Basophil# 0.06 X10^3/uL; Basophil% 0.5 % (0-1); Eosinophil# 0.24 X10^3/uL; Eosinophils% 1.8 % (0-5); Hematocrit 41.2 % (37-47); Hemoglobin 13.4 g/dL (12.0-15.0); Lymphocyte # 4.03 X10^3/ul (0.83-4.51); Lymphocyte % 30.3 % (19-41); Mean Corp Hgb Conc 32.5 g/dL (32-36); Mean Corpuscular Hgb 29.5 pg (27.0-32.0); Mean Corpuscular Volume 90.7 fL (81-99); Mean Platelet Vol. 9.5 fl (6.2-12.0); Monocyte# 0.69 X10^3/uL; Monocyte% 5.2 % (0-10); NRBC Flagged by Analyzer 0 % (0-5); Neutrophil % 61.4 % (47-70); Platelet Count 342 K/mm3 (150-450); RBC Distribution Width CV 12.7 % (11.6-14.6); RBC Distribution Width SD 42.3 fl (35.1-43.9); Red Blood Count 4.54 M/mm3 (4.2-5.4); White Blood Count 13.3 K/mm3 (4.4-11.0)
--- NOTE | 2020-10-26 00:17 | EDS_ITS ---
HPI History of Present Illness Chief Complaint: Chest Pain Narrative Narrative: Patient presents with right-sided chest pain that started earlier tonight, she feels like she cannot get a deep breath, the pain is pleuritic. It does radiate to her back. She has no cough or fever or chills. [facility] Medical History (Updated 10/26/20 @ 02:[address] Mikhail Bowers MD) Back pain Brain aneurysm Chest pain complex migraine CPAP (continuous positive airway pressure) dependence Empty sella Family history of brain aneurysm Fatigue Fibromyalgia History of fatty infiltration of liver History of IBS History of loss of consciousness History of PCOS History of PSVT (paroxysmal supraventricular tachycardia) Hx of echocardiogram Hx of protein S deficiency Hypothyroidism IBS (irritable bowel syndrome) Injury of head and neck Intervertebral disc degeneration Limb weakness Migraines Non-smoker CADENCE (obstructive sleep apnea) Protein S deficiency Restless legs Stomach ulcer Tachycardia Thyroid disease Thyroid nodule Ulcer Home Medications lorazepam 0.5 mg PO DAILY PRN PRN 11/23/19 [History Last Taken 09/10/20 21:00] levothyroxine 88 mcg capsule 88 mcg PO MOTUWETHFRSA 08/23/20 [History Last Taken 09/11/20 05:30] Advil PM 1 cap PO QHS 09/04/20 [History Last Taken 09/10/20 21:00] albuterol sulfate 1 inh INHALATION Q6H PRN 09/04/20 [History Last Taken Unknown] naproxen 500 mg PO BID #14 tab 10/26/20 [Rx Last Taken Unknown] tizanidine 2 mg PO QHS #7 tab 10/26/20 [Rx Last Taken Unknown] Allergy/AdvReac Type Severity Reaction Status Date / Time adhesive Allergy Rash Verified 10/26/20 00:00 Penicillins Allergy Unknown Verified 10/26/20 00:00 Family History Grandmother Hypertension Brother Diabetes Grandfather CVA (cerebral vascular accident) Father Hypertension Mother Supraventricular tachycardia Other Breast cancer Heart disease Thyroid disorder Surgical History H/O bilateral salpingectomy History of appendectomy History of cholecystectomy History of extraction of renal calculus History of total vaginal hysterectomy (TVH) Hx of dilation and curettage [place] teeth extracted Social History Smoking Status: Never smoker alcohol intake: current alcohol intake frequency: holidays/special occasions only details: social substance use type: does not use diet: other caffeine: Yes what type of physical activity do you participate in: walking and weight training seatbelt use: always do you feel safe at home: Yes ROS ROS ED ROS Narrative Past medical history: Reviewed, recent hysterectomy Medications: Reviewed Social history: Noncontributory Review of systems: All systems negative except as indicated General: No fever Eyes: No visual changes ENT: No upper airway congestion, normal voice Neck: No neck pain Cardiovascular: Right-sided chest pain as in HPI Respiratory: Shortness of breath as in HPI Gastrointestinal: No abdominal pain, nausea vomiting or diarrhea Genitourinary: No dysuria Musculoskeletal: Denies myalgias no difficulty with ambulation Skin: No rash Neurological: No memory loss, confusion or any focal weakness Psych: No recent behavioral changes Hematologic: No easy bleeding or easy bruising EXAM Physical Exam Narrative Exam Narrative: Physical exam General: Patient appears in some distress Head: Normocephalic, Atraumatic Eyes: Conjunctiva not pale ENT: Moist mucous membranes Neck: Supple, Nontender, No lymphadenopathy Cardiovascular: Regular rate, Regular rhythm Respiratory: Lungs are clear bilaterally Abdomen: Soft, Nontender, Nondistended Back: Nontender, Normal Inspection. Negative for: CVA tenderness Extremities: Nontender, No edema Skin: Normal color, No rash Neurological: Alert, Normal Strength, Normal Sensation Psychological: Normal affect Const Vital Signs: 10/25/20 23:53 10/25/20 23:57 Temperature 98.6 F Temperature Source Temporal Pulse Rate 105 H Respiratory Rate 24 H Respiratory Effort Short of Breath Blood Pressure 158/101 H Blood Pressure Mean 120 Pulse Ox 96 MDM MDM Lab Data Labs: Laboratory Results - last 24 hr 10/26/20 10/26/20 00:02 00:02 WBC 13.3 H RBC 4.54 Hgb 13.4 Hct 41.2 MCV 90.7 MCH 29.5 MCHC 32.5 RDW Std Deviation 42.3 RDW Coeff of Jeff 12.7 Plt Count 342 MPV 9.5 Immature Gran % (Auto) 0.800 Neut % (Auto) 61.4 Lymph % (Auto) 30.3 [place] % (Auto) 5.2 Eos % (Auto) 1.8 Baso % (Auto) 0.5 Absolute Neuts (auto) 8.2 H Absolute Lymphs (auto) 4.03 Nucleated RBC % 0 Sodium 136 Potassium 4.6 Chloride 108 H Carbon Dioxide 21.0 Anion Gap 7 BUN 21 H Creatinine 0.79 Estim Creat Clear Calc 67.99 Est GFR (MDRD) Af Amer 103 Est GFR (MDRD) Non-Af 85 BUN/Creatinine Ratio 26.5 H Glucose 90 Calcium 8.9 Total Bilirubin 0.40 AST 39 H ALT 30 Alkaline Phosphatase 64 Troponin I High Sens 3.2 Total Protein 7.9 Albumin 3.6 Globulin 4.3 H Albumin/Globulin Ratio 0.8 L Radiography Diagnostic Testing: Radiology Impression Chest CTA 10/26/20 00:45 IMPRESSION: Negative CTA chest examination, without a demonstrated pulmonary embolism or arterial dissection. Mild posterior dependent atelectasis otherwise no acute cardiopulmonary disease. Electronically Signed: Shanell Ghotra MD at 1:54 EDT , Service support , Discharge Plan Triage Chief Complaint: Chest Pain ED Provider: Mikhail Bowers Dx/Rx/DC Orders Clinical Impression: Chest pain Instructions: ED Chest Pain, Uncertain Cause, ED Chest Wall Pain, Costochondritis Prescriptions: New naproxen 500 MG tablet 500 mg PO BID Qty: 14 RF: 0 tizanidine 2 mg tablet 2 mg PO QHS Qty: 7 RF: 0 No Action levothyroxine 88 mcg capsule 88 mcg PO MOTUWETHFRSA RF: 0 lorazepam 0.5 MG tablet 0.5 mg PO DAILY PRN PRN (Reason: Anxiety) RF: 0 Advil PM 200-38 mg Tablet 1 cap PO QHS RF: 0 albuterol sulfate 90 mcg/actuation Hfa Aerosol Inhaler 1 inh INHALATION Q6H PRN (Reason: anxiety/sob) RF: 0 Primary Care Provider: Jose Luis Toledo Referrals: Jose Luis Toledo DO [Primary Care Provider] - 2 Days Disposition Disposition: Home, Self Care
--- NOTE | 2020-10-26 00:40 | ED.VIS.CHEST ---
HPI History of Present Illness Chief Complaint: Chest Pain Narrative Narrative: Patient presents with right-sided chest pain that started prior to arrival, she had a recent hysterectomy. She has no radiation to the left side she has no back pain or tearing sensation. She has no pleuritic component. She has no lower extremity edema or calf pain. No cough or congestion or fever or chills. [facility] Medical History (Updated 10/26/20 @ 02:[address] Mikhail Bowers MD) Back pain Brain aneurysm Chest pain complex migraine CPAP (continuous positive airway pressure) dependence Empty sella Family history of brain aneurysm Fatigue Fibromyalgia History of fatty infiltration of liver History of IBS History of loss of consciousness History of PCOS History of PSVT (paroxysmal supraventricular tachycardia) Hx of echocardiogram Hx of protein S deficiency Hypothyroidism IBS (irritable bowel syndrome) Injury of head and neck Intervertebral disc degeneration Limb weakness Migraines Non-smoker CADENCE (obstructive sleep apnea) Protein S deficiency Restless legs Stomach ulcer Tachycardia Thyroid disease Thyroid nodule Ulcer Home Medications lorazepam 0.5 mg PO DAILY PRN PRN 11/23/19 [History Last Taken 09/10/20 21:00] levothyroxine 88 mcg capsule 88 mcg PO MOTUWETHFRSA 08/23/20 [History Last Taken 09/11/20 05:30] Advil PM 1 cap PO QHS 09/04/20 [History Last Taken 09/10/20 21:00] albuterol sulfate 1 inh INHALATION Q6H PRN 09/04/20 [History Last Taken Unknown] naproxen 500 mg PO BID #14 tab 10/26/20 [Rx Last Taken Unknown] tizanidine 2 mg PO QHS #7 tab 10/26/20 [Rx Last Taken Unknown] Allergy/AdvReac Type Severity Reaction Status Date / Time adhesive Allergy Rash Verified 10/26/20 00:00 Penicillins Allergy Unknown Verified 10/26/20 00:00 Family History Grandmother Hypertension Brother Diabetes Grandfather CVA (cerebral vascular accident) Father Hypertension Mother Supraventricular tachycardia Other Breast cancer Heart disease Thyroid disorder Surgical History H/O bilateral salpingectomy History of appendectomy History of cholecystectomy History of extraction of renal calculus History of total vaginal hysterectomy (TVH) Hx of dilation and curettage [place] teeth extracted Social History Smoking Status: Never smoker alcohol intake: current alcohol intake frequency: holidays/special occasions only details: social substance use type: does not use diet: other caffeine: Yes what type of physical activity do you participate in: walking and weight training seatbelt use: always do you feel safe at home: Yes ROS ROS ED ROS Narrative Past medical history: Reviewed Medications: Reviewed Social history: Noncontributory Review of systems: All systems negative except as indicated General: No fever Eyes: No visual changes ENT: No upper airway congestion, normal voice Neck: No neck pain Cardiovascular: Right-sided chest pain as in HPI Respiratory: No shortness of breath or cough Gastrointestinal: No abdominal pain, nausea vomiting or diarrhea Genitourinary: No dysuria Musculoskeletal: Denies myalgias no difficulty with ambulation Skin: No rash Neurological: No memory loss, confusion or any focal weakness Psych: No recent behavioral changes Hematologic: No easy bleeding or easy bruising EXAM Physical Exam Narrative Exam Narrative: Physical exam General: Well nourished, Well developed, No Acute Distress Head: Normocephalic, Atraumatic Eyes: Conjunctiva not pale ENT: Moist mucous membranes Neck: Supple, Nontender, No lymphadenopathy Cardiovascular: Regular rate, Regular rhythm Chest Wall: I can reproduce her pain in the right chest wall region. Respiratory: No distress, CTA bilaterally Abdomen: Soft, Nontender, Nondistended Back: Nontender, Normal Inspection. Negative for: CVA tenderness Extremities: Nontender, No edema Skin: Normal color, No rash Neurological: Alert, Normal Strength, Normal Sensation Psychological: Normal affect Const Vital Signs: 10/25/20 23:53 10/25/20 23:57 Temperature 98.6 F Temperature Source Temporal Pulse Rate 105 H Respiratory Rate 24 H Respiratory Effort Short of Breath Blood Pressure 158/101 H Blood Pressure Mean 120 Pulse Ox 96 MDM MDM MDM Narrative Medical decision making narrative: Patient's work-up is unremarkable including a PE study her heart score is a 1. I believe she is stable for discharge she improved I will give her Toradol in the ED and NSAIDs for home. Lab Data Labs: Laboratory Results - last 24 hr 10/26/20 10/26/20 00:02 00:02 WBC 13.3 H RBC 4.54 Hgb 13.4 Hct 41.2 MCV 90.7 MCH 29.5 MCHC 32.5 RDW Std Deviation 42.3 RDW Coeff of Jeff 12.7 Plt Count 342 MPV 9.5 Immature Gran % (Auto) 0.800 Neut % (Auto) 61.4 Lymph % (Auto) 30.3 [place] % (Auto) 5.2 Eos % (Auto) 1.8 Baso % (Auto) 0.5 Absolute Neuts (auto) 8.2 H Absolute Lymphs (auto) 4.03 Nucleated RBC % 0 Sodium 136 Potassium 4.6 Chloride 108 H Carbon Dioxide 21.0 Anion Gap 7 BUN 21 H Creatinine 0.79 Estim Creat Clear Calc 67.99 Est GFR (MDRD) Af Amer 103 Est GFR (MDRD) Non-Af 85 BUN/Creatinine Ratio 26.5 H Glucose 90 Calcium 8.9 Total Bilirubin 0.40 AST 39 H ALT 30 Alkaline Phosphatase 64 Troponin I High Sens 3.2 Total Protein 7.9 Albumin 3.6 Globulin 4.3 H Albumin/Globulin Ratio 0.8 L Radiography Diagnostic Testing: Radiology Impression Chest CTA 10/26/20 00:45 IMPRESSION: Negative CTA chest examination, without a demonstrated pulmonary embolism or arterial dissection. Mild posterior dependent atelectasis otherwise no acute cardiopulmonary disease. Electronically Signed: Shanell Ghotra MD at 1:54 EDT , Service support , Discharge Plan Triage Chief Complaint: Chest Pain ED Provider: Mikhail Bowers Dx/Rx/DC Orders Clinical Impression: Chest pain Instructions: ED Chest Pain, Uncertain Cause, ED Chest Wall Pain, Costochondritis Prescriptions: New naproxen 500 MG tablet 500 mg PO BID Qty: 14 RF: 0 tizanidine 2 mg tablet 2 mg PO QHS Qty: 7 RF: 0 No Action levothyroxine 88 mcg capsule 88 mcg PO MOTUWETHFRSA RF: 0 lorazepam 0.5 MG tablet 0.5 mg PO DAILY PRN PRN (Reason: Anxiety) RF: 0 Advil PM 200-38 mg Tablet 1 cap PO QHS RF: 0 albuterol sulfate 90 mcg/actuation Hfa Aerosol Inhaler 1 inh INHALATION Q6H PRN (Reason: anxiety/sob) RF: 0 Primary Care Provider: Jose Luis Toledo Referrals: Jose Luis Toledo DO [Primary Care Provider] - 2 Days Disposition Disposition: Home, Self Care
[2020-10-26 00:45] LABS: ALB/GLOB Ratio 0.8 RATIO (0.9-2.4); AST(SGOT) 39 U/L (15-37); Alanine Aminotransfer ALT/SGPT 30 U/L (13-56); Albumin, Serum 3.6 g/dL (3.2-5.0); Alkaline Phosphatase 64 U/L (45-117); Anion Gap 7 (5-15); BUN 21 mg/dL (7-18); BUN/Creat Ratio 26.5 RATIO (10-20); Calcium,Total 8.9 mg/dL (8.5-10.1); Chloride 108 mmol/L (98-107); Creatinine, Serum 0.79 mg/dL (0.55-1.02); EST Glomerular Filtration Rate 85 mL/min (>60); Est Glom Filt Rate - Afr Amer 103 mL/min (>60); Estimated Creatinine Clearance 67.99 ml/min; Globulin 4.3 g/dL (2.2-4.2); Glucose 90 mg/dL (74-106); Potassium 4.6 mmol/L (3.5-5.1); Protein, Total 7.9 g/dL (6.4-8.2); Sodium Level 136 mmol/L (136-145); Troponin-I HS 3.2 pg/mL (3.0-53.7)
--- NOTE | 2020-10-26 00:45 | CT_ITS ---
STUDY: CTA CHEST REASON FOR EXAM: Female, 40 years old. sob RADIATION DOSAGE (If Supplied By Facility): CTDIvol = ( 13.85 ) mGy, DLP = ( 468.91 ) mGycm TECHNIQUE: The examination was performed with the intravenous administration of IV 100mL Isovue-370. Post-processing of the angiographic images was performed, with multiplanar reformation and 3D reconstruction. Individualized dose optimization techniques were used for this CT. COMPARISON: None. FINDINGS: Normal enhancement of the main pulmonary artery and right and left pulmonary arteries. Normal enhancement of the bilateral peripheral pulmonary arteries. There is no demonstrated pulmonary embolism. Normal thoracic aorta and visualized great vessels. There is no demonstrated aortic dissection. Normal heart and pericardium. Normal mediastinum. Normal hilar regions. Normal visualized trachea and bronchi. The lungs are well expanded. Mild posterior dependent atelectasis otherwise normal pulmonary parenchyma. Normal pleura. Normal chest wall structures. There are degenerative changes of thoracic spine. Diffuse fatty liver. Status post cholecystectomy. Otherwise unremarkable visualized upper abdomen. CT/CTA Chest W/WO Contrast IMPRESSION: Negative CTA chest examination, without a demonstrated pulmonary embolism or arterial dissection. Mild posterior dependent atelectasis otherwise no acute cardiopulmonary disease. Electronically Signed: Shanell Ghotra MD at 1:54 EDT , Service support ,
[2020-10-26] MEDS: Ketorolac 15 MG/ML Vial IV (02:26)
[2020-10-26 02:27] VITALS: BP 160/89
== END 2020-10-26 02:27 | disposition home or self-care (01) ==
PROVIDERS: Emergency Provider Emergency Medicine; PCP Student in an Organized Health Care Education/Training Program
DX: R07.9 Chest pain, unspecified (principal); M79.7 Fibromyalgia; K76.0 Fatty (change of) liver, not elsewhere classified; K58.9 Irritable bowel syndrome, unspecified; E28.2 Polycystic ovarian syndrome; I47.1 Supraventricular tachycardia; E03.9 Hypothyroidism, unspecified; D68.59 Other primary thrombophilia; G25.81 Restless legs syndrome; G47.33 Obstructive sleep apnea (adult) (pediatric); G43.109 Migraine with aura, not intractable, without status migrainosus; Z87.19 Personal history of other diseases of the digestive system; Z79.899 Other long term (current) drug therapy; Z90.710 Acquired absence of both cervix and uterus
CPT/HCPCS: 71275; 80053; 84484; 85025; 93005; 96374; 99283; Q9967; A4216

== ENCOUNTER → 2020-12-26 | Outpatient (CLI) | payer MEDICAID, SELFPAY | END | disposition home or self-care (01) | LOC: LABSPEC 13:05 | PROVIDERS: PCP Student in an Organized Health Care Education/Training Program; Visit Provider Physician Assistant | DX: Z11.52 Encounter for screening for COVID-19 (principal) | CPT/HCPCS: 87635; U0005; U0003 ==

== ENCOUNTER → 2021-02-28 11:39 | Outpatient (CLI) | payer MEDICAID, SELFPAY | PROVIDERS: PCP Student in an Organized Health Care Education/Training Program; Referring Provider Nurse Practitioner Women's Health; Visit Provider Nurse Practitioner Women's Health | DX: R30.0 Dysuria (principal) | CPT/HCPCS: 87086; 87088 ==

== ENCOUNTER 2021-06-05 12:15 | Outpatient (CLI) | payer MEDICAID, SELFPAY ==
[2021-06-05 13:56] LABS: Mucous, Urine 0 SEEN /hpf (<or=2+); Red Blood Cells-Urine 0 SEEN /hpf (0-5)
[2021-06-05 14:00] LABS: Color, Urine Yellow (Yellow); Glucose, Dipstick Normal (Normal); Ketone-Dipstick 5 mg/dl (Negative); Leukocyte Esterase-Dipstick Negative /ul (Negative); Nitrite-Dipstick Negative (Negative); Occult Blood-Urine Negative /ul (Negative); Protein-Dipstick Negative (Negative); Specific Gravity, Urine 1.025 (1.002-1.030); Urine Bilirubin Dipstick Negative (Negative); Urine Clarity Sl. Cloudy (Clear); Urine Urobilinogen Normal (Normal)
[2021-06-05 14:09] LABS: Bacteria RARE /hpf (None Seen); Squamous Epithelial Cells - UA 5-10 SEEN /hpf (5-10); White Blood Cells 0-5 SEEN /hpf (0-5)
== END 2021-06-05 23:59 | disposition home or self-care (01) ==
LOC: LABSPEC 12:16
PROVIDERS: PCP Student in an Organized Health Care Education/Training Program; Visit Provider Physician Assistant
DX: R35.0 Frequency of micturition (principal)
CPT/HCPCS: 81001; 87086; 87088

== ENCOUNTER 2021-06-11 10:27 | Outpatient (CLI) | payer MEDICAID, SELFPAY ==
--- NOTE | 2021-06-11 10:31 | BI_ITS ---
MAMMOGRAPHY - BILATERAL SCREENING REASON FOR EXAM: Female, 41 years old. Routine annual screening examination. PERTINENT HISTORY: Mother with breast cancer. Aunt with breast cancer. TECHNIQUE: Digital bilateral breast keenan (3D mammographic acquisition) in the CC and MLO projections. 2-D mediolateral oblique (MLO) and craniocaudad (CC) views of both breasts were obtained. CAD: Full Field Digital Mammography with Computer Added Detection was performed. COMPARISON: Comparison is made with prior study dated 06/05/2020 and 04/12/2018. FINDINGS: Breast Composition: There are scattered areas of fibroglandular density. There are no dominant masses or suspicious calcifications. No other significant abnormalities are identified. There has been no significant change since the prior study. BI/SCRN MAMM (CAD)W/KEENAN BILAT IMPRESSION: Stable bilateral screening mammogram. Yearly follow-up mammogram recommended. (A) ASSESSMENT CATEGORY: BIRADS Category 1: Negative. A letter regarding these results will be sent to the patient by the facility within 30 days. Approximately 10% of breast cancers are not detected by mammography. A normal mammogram should not delay biopsy of a clinically suspicious abnormality. [id number] Electronically Signed: Siva Jacobs MD at 11:06 EST ,
== END 2021-06-11 23:59 | disposition home or self-care (01) ==
LOC: OPBI 10:28
PROVIDERS: PCP Student in an Organized Health Care Education/Training Program; Referring Provider Student in an Organized Health Care Education/Training Program; Visit Provider Student in an Organized Health Care Education/Training Program
DX: Z12.31 Encounter for screening mammogram for malignant neoplasm of breast (principal); Z80.3 Family history of malignant neoplasm of breast
CPT/HCPCS: 77063; 77067

== ENCOUNTER 2021-07-16 13:39 | Outpatient (CLI) | payer MEDICAID, SELFPAY ==
--- NOTE | 2021-07-16 13:41 | US_ITS ---
STUDY: ULTRASOUND OF THE FEMALE PELVIS - COMPLETE REASON FOR EXAM: Female, 41 years old. RLQ pelvic pain LMP: The patient is posthysterectomy. TECHNIQUE: Transabdominal and Transvaginal TECHNICAL QUALITY: Adequate. COMPARISON: Comparison is made with prior study dated 06/14/2020. FINDINGS: The patient is status post hysterectomy. The right ovary is visualized. The right ovary is enlarged and measures 6.9 cm x 5.3 cm x 4.9 cm. Within it, there is a 6 cm x 4.6 cm x 3.9 cm cyst. There is no visualized right adnexal mass or complex lesion. There is normal arterial and normal venous vascularity. The left ovary is visualized. The left ovary measures 3.8 cm x 2.6 x 2.1 cm. There is no left ovarian cyst or ovarian mass. There is no visualized left adnexal mass or complex lesion. There is normal arterial and normal venous vascularity. A small amount of free fluid is seen surrounding the right ovary. The pre void volume of the bladder was 119 ml. US/Pelvic (Non ) IMPRESSION: Status post hysterectomy. 6.9 cm x 5.3 cm x 4.9 cm right ovarian cyst. Electronically Signed: Siva Jacobs MD at 15:42 EDT ,
--- NOTE | 2021-07-16 13:41 | US_ITS ---
STUDY: ULTRASOUND OF THE FEMALE PELVIS - COMPLETE REASON FOR EXAM: Female, 41 years old. RLQ pelvic pain LMP: The patient is posthysterectomy. TECHNIQUE: Transabdominal and Transvaginal TECHNICAL QUALITY: Adequate. COMPARISON: Comparison is made with prior study dated 06/14/2020. FINDINGS: The patient is status post hysterectomy. The right ovary is visualized. The right ovary is enlarged and measures 6.9 cm x 5.3 cm x 4.9 cm. Within it, there is a 6 cm x 4.6 cm x 3.9 cm cyst. There is no visualized right adnexal mass or complex lesion. There is normal arterial and normal venous vascularity. The left ovary is visualized. The left ovary measures 3.8 cm x 2.6 x 2.1 cm. There is no left ovarian cyst or ovarian mass. There is no visualized left adnexal mass or complex lesion. There is normal arterial and normal venous vascularity. A small amount of free fluid is seen surrounding the right ovary. The pre void volume of the bladder was 119 ml. US/Transvaginal Non- IMPRESSION: Status post hysterectomy. 6.9 cm x 5.3 cm x 4.9 cm right ovarian cyst. Electronically Signed: Siva Jacobs MD at 15:42 EDT ,
== END 2021-07-16 23:59 | disposition home or self-care (01) ==
LOC: OPUS 13:40
PROVIDERS: PCP Student in an Organized Health Care Education/Training Program; Referring Provider Nurse Practitioner Women's Health; Visit Provider Nurse Practitioner Women's Health
DX: R10.2 Pelvic and perineal pain (principal); Z87.42 Personal history of other diseases of the female genital tract
CPT/HCPCS: 76830; 76856

== ENCOUNTER 2021-07-30 11:17 | Day surgery (SDC) | payer MEDICAID, SELFPAY ==
[2021-07-29 13:37] LABS: Hematocrit 41.4 % (37-47); Hemoglobin 13.8 g/dL (12.0-15.0); Mean Corp Hgb Conc 33.3 g/dL (32-36); Mean Corpuscular Hgb 30.5 pg (27.0-32.0); Mean Corpuscular Volume 91.6 fL (81-99); Mean Platelet Vol. 10.3 fl (6.2-12.0); Platelet Count 311 K/mm3 (150-450); RBC Distribution Width CV 12.6 % (11.6-14.6); RBC Distribution Width SD 42.5 fl (35.1-43.9); Red Blood Count 4.52 M/mm3 (4.2-5.4); White Blood Count 9.7 K/mm3 (4.4-11.0)
[2021-07-30] VITALS (10 sets, daily range): BP systolic 92–137; BP diastolic 55–70; PULSE 68–94; RESP 16–17; TEMP 36.2–36.9; O2SAT 92–99; BMI 39.7
[2021-07-30] MEDS: Lactated Ringers 1,000 ML 125 ML IV (11:50)
[2021-07-30] MEDS: Enoxaparin 40 MG/0.4 ML Syringe SC (12:00)
--- NOTE | 2021-07-30 12:29 | PCM.HP.BLA ---
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 Is patient in pain?: No Allergies adhesive Allergy (Verified 07/09/21 09:24) Rash Penicillins Allergy (Verified 07/09/21 09:24) Unknown Medications lorazepam 0.5 mg PO DAILY PRN PRN 11/23/19 [History Confirmed 07/25/21] levothyroxine 88 mcg capsule 88 mcg PO MOTUWETHFRSA 08/23/20 [History Confirmed 07/25/21] Advil PM 1 cap PO QHS 09/04/20 [History Confirmed 07/25/21] albuterol sulfate 1 inh INHALATION Q6H PRN 09/04/20 [History Confirmed 07/25/21] naproxen 500 mg tablet 500 mg PO BID PRN tab 07/09/21 [History Confirmed 07/25/21] tizanidine 2 mg tablet 2 mg PO QHS PRN tab 07/09/21 [History Confirmed 07/25/21] Is last menstrual period known: No Post menopausal: No Patient : No : No PFSH Medical History Back pain Brain aneurysm Chest pain complex migraine CPAP (continuous positive airway pressure) dependence Empty sella Family history of brain aneurysm Fatigue Fibromyalgia History of fatty infiltration of liver History of IBS History of loss of consciousness History of PCOS History of PSVT (paroxysmal supraventricular tachycardia) Hx of echocardiogram Hx of protein S deficiency Hypothyroidism IBS (irritable bowel syndrome) Injury of head and neck Intervertebral disc degeneration Limb weakness Mid back pain on left side Migraines Non-smoker CADENCE (obstructive sleep apnea) Protein S deficiency Restless legs Stomach ulcer Tachycardia Thyroid disease Thyroid nodule Ulcer Urinary frequency Surgical History H/O bilateral salpingectomy History of appendectomy History of cholecystectomy History of extraction of renal calculus History of total vaginal hysterectomy (TVH) Hx of dilation and curettage [place] teeth extracted Family History Grandmother Hypertension Brother Diabetes Grandfather CVA (cerebral vascular accident) Father Hypertension Mother Supraventricular tachycardia Other Breast cancer Heart disease Thyroid disorder Social History Smoking Status: Never smoker alcohol intake: current alcohol intake frequency: holidays/special occasions only details: social substance use type: does not use diet: other caffeine: Yes what type of physical activity do you participate in: walking and weight training seatbelt use: always do you feel safe at home: Yes HPI consult for possible cyst removal Details: SAMMY TRAN is a 41 year old who presents for ovarian cyst. Patient has a history of acute onset lower pelvic pain and urinary urgency and frequency and pain. She also has pain with defecation. Pain is intermittently severe at times and upon ultrasound evaluation a large right simple ovarian cyst was seen 6 cm in size. Good blood flow was seen. Pain has been intermittent over the last week and still present although stable today. She denies any vaginal bleeding or abnormal discharge. Female Reproductive History Menopausal Symptoms: No night sweats Pregancy History 5 Elective abortions Hx Para 2 Spontaneous abortions 3 Hx # Term Pregnancies 2 Ectopic pregnancies Hx # Pregnancies Multiple births # of living children 2 Past Pregnancies Del. Date Name GA/Weeks Outcome Route Bth Weight Infant Gen Labor Lgth Anesthesia Del Locatn Provider FOB Unknown Magdalena 2002 Unknown Darron 2009 ROS Const Constitutional: Denies fatigue, night sweats, weight gain or weight loss ENT ENT: Reports system reviewed and no additional complaints, except as documented Cardio Card: Denies chest pain Resp Resp: Denies cough or dyspnea GI GI: Reports as per HPI and abdominal pain; Denies constipation, nausea or vomiting : Reports urinary frequency and urinary urgency; Denies nipple discharge, urinary incontinence, vaginal discharge, vaginal dryness, vaginal odor or vaginal pruritus Musc Musc: Denies arthralgias, back pain or muscle weakness Skin Skin/Breast: Denies alopecia, change in hair, dry skin, breast mass, breast pain, breast skin changes or nipple discharge Neuro Neuro: Reports system reviewed and no additional complaints, except as documented Psych Psych: Reports system reviewed and no additional complaints, except as documented Endo Endo: Denies cold intolerance, excessive sweating, heat intolerance or polydipsia Florencio/Lymph Hematologic/Lymphatic: Denies easy bleeding, Denies easy bruising and Denies lymphadenopathy Exam Const General: cooperative, healthy appearing, comfortable, no acute distress and well developed Orientation: alert [facility] Head: normal to inspection and normocephalic Ears: hearing grossly normal bilaterally and external ears normal Nose: external nose normal and nares normal Face and sinus: normal facial exam Neck Neck: normal visual inspection and no lymphadenopathy Thyroid: thyroid normal Chest Chest palpation & inspection: normal inspection of the chest Resp Effort & Inspection: normal respiratory effort Auscultation: clear to auscultation bilaterally Cardio Rate: regular rate Rhythm: regular rhythm Heart Sounds: S1 normal and S2 normal GI Inspection: normal to inspection and non-distended Palpation: soft, no hepatosplenomegaly and tender in the RLQ and suprapubicly Musc Other: gross motor intact no deficits, full bilateral strength Skin General: no rashes or lesions noted Neuro General: patient alert, patient awake, moves all extremities and no focal motor deficits Motor: muscle tone normal throughout Extrem General: normal to inspection and no pedal edema Psych Appearance: grossly normal Mental Status: mental status grossly normal Affect: normal affect Speech and Movement: speech and movement normal Coding Level of Care Code Off vis,est,level 4 Diagnoses Pelvic pain R10.2 Right ovarian cyst N83.201 Assessment and Plan Assessment and Plan (1) Pelvic pain: Status: Acute Comment: 6 cm ovarian cyst, recommend laparoscopic ovarian cystectomy Plan - Dr. Zoë Griffith MD: After discussing the patient's diagnosis and treatment plan options, patient wishes to proceed with surgical management. I have discussed with the patient the risks, benefits, and alternatives of the procedure which include but are not limited to risks of anesthesia, bleeding, infection, possible damage to bowel, bladder, or surrounding vasculature which could lead to additional surgery to evaluate any complications. Patient agrees to procedure and wishes to proceed. ACOG/uptodate references given for additional information regarding procedure. (2) Right ovarian cyst: Status: Acute Comment: 6 cm simple UPDATE- I have seen the patient and performed any clinically relevant updates to the history and physical exam. Zoë Griffith MD
--- NOTE | 2021-07-30 12:55 | OV_PTH ---
PATIENT: SAMMY TRAN [place] [facility] [id number] AGE/SX: 41/F ROOM: RE07/30/[address]: Dr. Zoë Griffith MD : 1980 BED: DIS: 07/30/2021 SPEC #: [id number] RECD: 07/31/21 10:38 STATUS: MACEY NOEL #: [id number] ARTIS: 07/30/21 12:[address]: Zoë Griffith DEPT: SURGICAL PATHOLOGY RECD BY: Patricia Mejia ENTERED: 07/31/21 11:23 SP TYPE: OVARY OTHR DR: Dr. Jose Luis Toledo DO Tissues: Right ovary Procedures: Surgery Specimen Level IV HEADER OPERATION: Laparoscopic ovarian cystectomy, extensive lysis of adhesions PRE-OP DIAGNOSIS: Pelvic pain, right ovarian cyst TISSUE SUBMITTED: Right ovarian cyst MICROSCOPIC DIAGNOSIS Right ovarian cyst, cystectomy: Ovarian tissue with hemorrhagic corpus luteal cyst. Physiologic follicular cyst. See comment. SJ:kisha 08/01/2021 COMMENT Clinical correlation and appropriate follow up are necessary. MICROSCOPIC DESCRIPTION Slides are reviewed. GROSS DESCRIPTION Received in fixative is one container labeled with the patient's name and designated right ovarian cyst. The specimen consists of a piece of hemorrhagic soft tissue measuring 3.5 x 2 x 1 cm. A few detached fragments of hemorrhagic soft tissue are also present in the container measuring in aggregate 1.5 x 1.5 x 0.5 cm. Sections reveal hemorrhagic cut surfaces. The entire specimen is submitted in three cassettes. / DANIELLE:kisha 07/31/2021 TC:5 CPT: 81834
[2021-07-30 13:50] LABS: Bedside Glucose 81 mg/dL (74-106)
[2021-07-30] MEDS: Bupivacaine 0.25% 30 ML Vial (14:38)
--- NOTE | 2021-07-30 17:05 | DCINST_ITS ---
Discharge Instructions Diet Discharge Diet: No restrictions Activity Discharge Activity: Return to Normal Activity, May Not Drive (for 2 weeks or while taking narcotic pain meds.), May Shower and May Take a Tub Bath (in 7 days) May resume sexual activity in: 1 week Weight Bearing Status: Full weight bearing Dressing / Incision Call your doctor if your incision/area has: Continuous Slow Oozing, Sudden Increased Bleeding, Increased Pain/ Swelling, Increased Redness and Foul Smelling Discharge Call your doctor if you observe: Fever of 101 or Higher, Using more than 1 pad per hour, Shortness of breath, Chest pain and Uncontrolled pain Suture Line Care: Avoid Pulling/Pushing and Avoid Pinching/Bending Remove Dressing in: 1 week (if present) Cleanse incision/area with: Soap & Water and Keep Dressing Clean & Dry Follow Up Care When: Call to make an appointment with your doctor for a fu/incision check in 1- 2 weeks. Test Results: Test results from this visit will be discussed in further detail at your follow-up appointment, if applicable. Discharge Plan Admission Attending Provider: Zoë Griffith Primary Care Provider: Jose Luis Toledo Discharge Orders/Prescriptions Prescriptions: New oxycodone-acetaminophen [Percocet] 5-325 mg tablet 1 tab PO Q6H PRN (Reason: pain) 7 Days Qty: 28 RF: 0 naproxen [naproxen] 500 MG tablet 500 mg PO BID PRN PRN (Reason: Pain) Qty: 30 RF: 1 ondansetron HCl 4 mg tablet 4 mg PO Q8H PRN (Reason: nausea and vomiting) Qty: 14 RF: 0 No Action levothyroxine 88 mcg capsule 88 mcg PO MOTUWETHFRSA RF: 0 tizanidine 2 mg tablet 2 mg PO QHS PRN (Reason: MUSCLE SPASMS) RF: 0 lorazepam 0.5 MG tablet 0.5 mg PO DAILY PRN PRN (Reason: Anxiety) RF: 0 Advil PM 200-38 mg Tablet 1 cap PO QHS RF: 0 Referrals / Follow Up: Jose Luis Toledo DO [Primary Care Provider] - Disposition Disposition (needs filled in before D/C Order can be placed): Home, Self Care
--- NOTE | 2021-07-30 17:05 | PCM.OPRPT ---
Problems Associated Problem List Diagnoses (1) H/O ovarian cystectomy: (2) Right ovarian cyst: (3) Pelvic pain: (4) History of total vaginal hysterectomy (TVH): (5) Hx of protein S deficiency: Report of Operation Date of Procedure: 07/30/21 Pre-Operative Diagnosis: ovarian cyst Post-Operative Diagnosis: adhesions right ovarian cyst Surgery/Procedure Performed:: extensive adhesiolysis laparoscopic ovarian cystectomy Description of Surgical Findings:: Extensive ovarian to sigmoid colon adhesions bilaterally, cul-de-sac tubo-ovarian adhesions. Right colon to pelvic sidewall adhesions. Epiploic tubo-ovarian adhesions. biomedical repair technician: Ester Landrum biomedical repair technician: Justo Paz Type of Anesthesia: General Special Medications: floseal nimco Specimen's removed: right ovarian cyst Drains: none Estimated Blood Loss (mL): 50 Fluids Replaced: crystalloid Description of Procedure: Patient was taken back to the operating room and placed under general anesthesia was prepped and draped in normal sterile fashion in the dorsolithotomy position. Bladder was drained of clear urine and sponge stick was placed in the vagina. Veress needle was entered into the abdomen through the umbilicus after injecting with quarter percent Marcaine confirmed be intra-abdominal with an opening pressure of 7 mmHg pressure was insufflated with CO2 gas and 5 mm port placed under direct visualization. Right left lower quadrant ports were placed under direct visualization. Extensive pelvic adhesions were noted that were quite dense and the right pelvic sidewall adhesions were taken down first with the LigaSure device without complication. Using Pickerel dissection as well as sharp dissection and then carefully the sigmoid colon from the left ovary and right ovary the bowel adhesions and epiploic adhesions were gently dissected off of the bilateral ovaries and the spaces created to normalize anatomy. Hydrodissection was also extensively utilized and cul-de-sac adhesions were noted and cystic fluid was seen filling some of the spaces which probably created some of the cystic appearance on ultrasound. Sharp dissection was also utilized using laparoscopic scissors being careful to not use any energy near the bowel and integrity of the bowel was confirmed during all dissection. The ovaries were from each other using the LigaSure device and ovarian cystectomy was performed of the right ovary and it was removed and sent to pathology for analysis. A suprapubic 5 mm port was also placed for additional traction and operative access. Monopolar cautery was used to obtain hemostasis of the right ovary. Nimco and FloSeal were used to obtain hemostasis in all areas including the bowel and bilateral ovaries were checked for hemostasis and this was confirmed. All normal anatomy was restored and adhesions were lysed. Total of over an hour of adhesiolysis was performed with an extreme level of difficulty but performed safely. All instruments removed from the patient and all incision sites closed with 3-0 Monocryl and Dermabond applied. Patient was awoken and taken recovery in stable condition. Patient had been given a dose of Lovenox preoperatively due to history of protein S deficiency and will be given compression stockings to go home with and encouraged early ambulation. Grafts/Implants Used: none Complications none
[2021-07-30] MEDS: HYDROcodone Bitartrate/Apap 5/325 Tablet PO (18:12)
== END 2021-07-30 23:59 | disposition home or self-care (01) ==
LOC: SDC 11:18 → AC 11:19
PROVIDERS: PCP Student in an Organized Health Care Education/Training Program; Visit Provider Obstetrics & Gynecology
PROC: (CPT 58720; principal; 2021-07-30 12:40)
DX: N83.11 Corpus luteum cyst of right ovary (principal); D68.59 Other primary thrombophilia; N83.01 Follicular cyst of right ovary; E03.9 Hypothyroidism, unspecified; M79.7 Fibromyalgia; G47.33 Obstructive sleep apnea (adult) (pediatric); Z79.899 Other long term (current) drug therapy
CPT/HCPCS: 58662; 00840; 36415; 82962; 85027; 86850; 86900; 86901; 87426; 88305; J7120; J2405

== ENCOUNTER 2021-08-15 10:45 | Outpatient (CLI) | payer MEDICAID, SELFPAY ==
[2021-08-15 12:20] LABS: Erythrocyte Sedimentation Rate 31 mm/hr (0-30)
[2021-08-15 13:03] LABS: AST(SGOT) 12 U/L (15-37); Alanine Aminotransfer ALT/SGPT 22 U/L (13-56); Albumin, Serum 3.9 g/dL (3.2-5.0); Alkaline Phosphatase 62 U/L (45-117); Anion Gap 8 (5-15); BUN 19 mg/dL (7-18); BUN/Creat Ratio 27.6 RATIO (10-20); Calcium,Total 8.6 mg/dL (8.5-10.1); Chloride 105 mmol/L (98-107); Creatinine, Serum 0.69 mg/dL (0.55-1.02); EST Glomerular Filtration Rate 100 mL/min (>60); Est Glom Filt Rate - Afr Amer 120 mL/min (>60); Globulin 3.9 g/dL (2.2-4.2); Glucose 82 mg/dL (74-106); Potassium 3.7 mmol/L (3.5-5.1); Protein, Total 7.8 g/dL (6.4-8.2); Sodium Level 138 mmol/L (136-145)
[2021-08-16 16:03] LABS: ANTINUCLEAR ANTIBODIES DIRECT Negative (Negative)
[2021-08-22 14:10] LABS: Complement C3 170 mg/dL (82-167); Dilute Prothrombin Time (dPT) 35.8 sec (0.0-47.6); Dilute Russell Viper Venom 34.4 sec (0.0-47.0); PTT-LA 34.8 sec (0.0-51.9); Protein C Antigen 121 % (60-150); Protein S, Free 89 % (61-136); Thrombin Time 16.5 sec (0.0-23.0); dPT Confirm Ratio 1.08 Ratio (0.00-1.34)
[2021-08-22 17:39] LABS: Anti-Cardiolipin Ab, IgA, Qn < 9 APL U/mL (0-11); Anti-Cardiolipin Ab, IgG, Qn < 9 GPL U/mL (0-14); Anti-Cardiolipin Ab, IgM, Qn < 9 MPL U/mL (0-12); Anti-Thrombin 3 AG, Immunol 87 % (72-124); Antithrombin 3 Function 107 % (75-135); Complement CH50 > 60 U/mL (>41); Interpretation Comment: (.); Protein C, Functional 138 % (73-180); Protein S, Funtional 78 % (63-140); Protein S, Total 92 % (60-150)
== END 2021-08-15 23:59 | disposition home or self-care (01) ==
LOC: MTLAB 10:46
PROVIDERS: PCP Student in an Organized Health Care Education/Training Program; Referring Provider Psychiatry & Neurology Neurology; Visit Provider Psychiatry & Neurology Neurology
DX: D68.59 Other primary thrombophilia (principal)
CPT/HCPCS: 36415; 80053; 81240; 81241; 85300; 85301; 85302; 85303; 85305; 85306; 85652; 86038; 86147; 86160; 86162; 86225; 86235

== ENCOUNTER → 2021-09-17 | Outpatient (CLI) | payer MEDICAID, SELFPAY ==
--- NOTE | 2021-09-17 13:09 | MRI_ITS ---
EXAM: MR HEAD WITHOUT AND WITH INTRAVENOUS CONTRAST CLINICAL INDICATION: anosmia aneurysm migraine headache pain TECHNIQUE: Multiplanar and multisequence MR images of the brain were obtained without and with intravenous contrast. This report was created using [employer] report Táximo technology. CONTRAST: IV 19ml Dotarem COMPARISON: Jul 01 2018 6:58am FINDINGS: BRAIN AND EXTRA-AXIAL SPACES: Unremarkable. No intra- or extra-axial hemorrhage. No evidence of acute infarct. No intracranial mass or mass effect. There is preservation of the cunningham/white matter interface. Posterior fossa structures are unremarkable. Ventricles are appropriate for age. No hydrocephalus. Basal cisterns are patent. SELLA: Unremarkable. Normal sella turcica, pituitary gland, infundibular stalk, optic chiasm and hypothalamus. AUDITORY SYSTEM: Unremarkable. The internal auditory canals are patent. BONES/JOINTS: Unremarkable. No discrete lytic or blastic abnormalities. SINUSES: Unremarkable as visualized. Clear. MASTOID AIR CELLS: Unremarkable as visualized. Clear. ORBITS: Unremarkable as visualized. Both globes, extraocular muscles, optic nerves and retrobulbar fat appear unremarkable. VASCULATURE: Unremarkable as visualized. Normal flow voids in the major intracranial circulation. MRI/Brain W/WO Contrast IMPRESSION: Negative MRI brain without and with intravenous contrast. Electronically Signed: Arturo Curtis MD at 15:07 EDT ,
== END | disposition home or self-care (01) ==
LOC: MRI 13:09
PROVIDERS: PCP Student in an Organized Health Care Education/Training Program; Visit Provider Psychiatry & Neurology Neurology
DX: R43.0 Anosmia (principal)
CPT/HCPCS: 70553; A9575

== ENCOUNTER → 2021-09-24 | Outpatient (CLI) | payer MEDICAID, SELFPAY ==
--- NOTE | 2021-09-24 06:47 | CT_ITS ---
STUDY: CTA OF THE BRAIN REASON FOR EXAM: Female, 41 years old. Cerebral aneurysm RADIATION DOSAGE (If Supplied By Facility): CTDIvol = ( 20.16 ) mGy, DLP = ( 987.8 ) mGycm TECHNIQUE: CT angiography was performed with a multi-detector CT scanner. Data acquisition was obtained from the skull base through the vertex following intravenous administration of IV 100mL Isovue-370. MIP images were reconstructed from the axial data set. Post-processing of the angiographic images was performed, with multiplanar reformation and 3D reconstruction. Individualized dose optimization techniques were used for this CT. COMPARISON: Comparison is made with prior study dated 10/11/2019. FINDINGS: Normal bilateral petrous carotid arteries. Normal right cavernous carotid artery with a normal supraclinoid bifurcation. Normal left cavernous carotid artery with a normal supraclinoid bifurcation. Normal right A1 segments of the anterior cerebral artery. Normal left A1 segments of the anterior cerebral artery. 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 Normal bilateral A2 segments of the anterior cerebral arteries. Normal right M1 and M2 segments of the middle cerebral arteries, with a normal M1 bifurcation. Normal left M1 and M2 segments of the middle cerebral arteries, with a normal M1 bifurcation. Normal right posterior communicating artery (PCOM). Normal left posterior communicating artery (PCOM). Normal bilateral vertebral arteries. Normal basilar artery with a normal basilar bifurcation. The visualized bilateral superior cerebellar (SCA) arteries are normal. Normal bilateral P1, P2 and visualized P3 segments of the posterior cerebral arteries. There is no demonstrated aneurysm of the [place]. There is no demonstrated abnormality of the visualized brain. 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 Electronically Signed: Siva Jacobs MD at 8:32 EDT ,
== END | disposition home or self-care (01) ==
PROVIDERS: PCP Student in an Organized Health Care Education/Training Program; Referring Provider Psychiatry & Neurology Neurology; Visit Provider Psychiatry & Neurology Neurology
DX: I67.1 Cerebral aneurysm, nonruptured (principal)
CPT/HCPCS: 70496; Q9967

== ENCOUNTER → 2021-10-01 | Outpatient (CLI) | payer MEDICAID, SELFPAY ==
[2021-10-04 17:20] LABS: HPV APTIMA, High Risk Negative (Negative)
== END | disposition home or self-care (01) ==
LOC: LABSPEC 10-02 09:50
PROVIDERS: PCP Student in an Organized Health Care Education/Training Program; Visit Provider Nurse Practitioner Women's Health
DX: N76.0 Acute vaginitis (principal)
CPT/HCPCS: 87070; 87205; 87624; 88175; G0145

== ENCOUNTER → 2021-11-18 | Outpatient (CLI) | payer MEDICAID, SELFPAY ==
--- NOTE | 2021-11-18 07:51 | US_ITS ---
STUDY: ULTRASOUND OF THE FEMALE PELVIS - COMPLETE REASON FOR EXAM: Female, 41 years old. Pelvic pain LMP: The patient is status post hysterectomy. TECHNIQUE: Transabdominal and Transvaginal TECHNICAL QUALITY: Adequate. COMPARISON: Comparison is made with prior study dated 07/16/2021. FINDINGS: The patient is status post hysterectomy. The right ovary is visualized. The right ovary measures 4 cm x 1.9 cm x 2.1 cm. A dominant follicle is seen in the right ovary measuring 1.4 cm x 1 cm. There is no visualized right adnexal mass or complex lesion. There is normal arterial and normal venous vascularity. The left ovary is visualized. The left ovary measures 4.3 cm x 2.9 cm x 3.9 cm. Small cysts are seen in the left ovary. The largest cyst measures 3.1 cm x 2.8 cm x 2.5 cm. There is no visualized left adnexal mass or complex lesion. There is normal arterial and normal venous vascularity. There is no fluid in the cul-de-sac. The pre void volume of the bladder was 115 ml. US/Pelvic (Non ) IMPRESSION: Small cysts are seen in the left ovary. The largest measures 3.1 cm x 2.8 cm x 2.5 cm. The patient is status post hysterectomy. Electronically Signed: Siva Jacobs MD at 10:52 EDT ,
--- NOTE | 2021-11-18 07:51 | US_ITS ---
STUDY: ULTRASOUND OF THE FEMALE PELVIS - COMPLETE REASON FOR EXAM: Female, 41 years old. Pelvic pain LMP: The patient is status post hysterectomy. TECHNIQUE: Transabdominal and Transvaginal TECHNICAL QUALITY: Adequate. COMPARISON: Comparison is made with prior study dated 07/16/2021. FINDINGS: The patient is status post hysterectomy. The right ovary is visualized. The right ovary measures 4 cm x 1.9 cm x 2.1 cm. A dominant follicle is seen in the right ovary measuring 1.4 cm x 1 cm. There is no visualized right adnexal mass or complex lesion. There is normal arterial and normal venous vascularity. The left ovary is visualized. The left ovary measures 4.3 cm x 2.9 cm x 3.9 cm. Small cysts are seen in the left ovary. The largest cyst measures 3.1 cm x 2.8 cm x 2.5 cm. There is no visualized left adnexal mass or complex lesion. There is normal arterial and normal venous vascularity. There is no fluid in the cul-de-sac. The pre void volume of the bladder was 115 ml. US/Transvaginal Non- IMPRESSION: Small cysts are seen in the left ovary. The largest measures 3.1 cm x 2.8 cm x 2.5 cm. The patient is status post hysterectomy. Electronically Signed: Siva Jacobs MD at 10:52 EDT ,
== END | disposition home or self-care (01) ==
LOC: US 07:50
PROVIDERS: PCP Student in an Organized Health Care Education/Training Program; Referring Provider Nurse Practitioner Women's Health; Visit Provider Nurse Practitioner Women's Health
DX: R10.2 Pelvic and perineal pain (principal); N83.202 Unspecified ovarian cyst, left side; Z90.710 Acquired absence of both cervix and uterus
CPT/HCPCS: 76830; 76856; 93976

== ENCOUNTER → 2021-12-27 | Outpatient (CLI) | payer MEDICAID, SELFPAY ==
[2021-12-27 10:09] LABS: Erythrocyte Sedimentation Rate 20 mm/hr (0-30)
[2021-12-29 14:29] LABS: Complement C3 138 mg/dL (82-167)
== END | disposition home or self-care (01) ==
LOC: MTLAB 08:14
PROVIDERS: PCP Student in an Organized Health Care Education/Training Program; Referring Provider Nurse Practitioner Family; Visit Provider Nurse Practitioner Family
DX: D68.59 Other primary thrombophilia (principal)
CPT/HCPCS: 36415; 85652; 86160

== ENCOUNTER → 2022-01-02 | Outpatient (CLI) | payer MEDICAID, SELFPAY ==
[2022-01-04 16:59] LABS: Complement CH50 > 60 U/mL (>41)
== END | disposition home or self-care (01) ==
LOC: MTLAB 09:28
PROVIDERS: PCP Student in an Organized Health Care Education/Training Program; Referring Provider Nurse Practitioner Family; Visit Provider Nurse Practitioner Family
DX: D68.59 Other primary thrombophilia (principal)
CPT/HCPCS: 86160; 86162

== ENCOUNTER → 2022-01-13 | Outpatient (CLI) | payer MEDICAID, SELFPAY ==
--- NOTE | 2022-01-13 09:05 | US_ITS ---
STUDY: ULTRASOUND TRANSVAGINAL CLINICAL: Female, 41 years old. Pelvic pain TECHNIQUE: Transvaginal COMPARISON: 07/16/2021 FINDINGS: The uterus is surgically absent. Normal right ovary, measuring 1.1 x 4.7 x 2.0 cm. There are multiple follicles without a dominant cyst. Doppler flow to the right ovary is within normal limits. The left ovary is enlarged measuring 7.2 x 7.2 x 5.9 cm. There is a complex 4.5 x 5.8 x 4.6 cm cyst with internal echoes and a mural nodule. There is an additional 2.3 x 3.8 x 2.8 cm cyst within the left ovary with internal echoes and an irregular margin. The Doppler flow to the left ovary is within normal limits. There is free fluid in the pelvis. US/Transvaginal Non- IMPRESSION: Enlarged left ovary secondary to complex cysts including a 4.5 x 5.8 x 4.6 cm cyst with a mural nodule, may reflect a neoplastic process. Electronically Signed: Ruth Ann Tillman MD at 10:34 EDT ,
== END | disposition home or self-care (01) ==
LOC: US 09:04
PROVIDERS: PCP Student in an Organized Health Care Education/Training Program; Referring Provider Nurse Practitioner Women's Health; Visit Provider Nurse Practitioner Women's Health
DX: R10.2 Pelvic and perineal pain (principal)
CPT/HCPCS: 76830; 93976

== ENCOUNTER 2022-01-30 07:55 | Emergency (ER) | payer MEDICAID, SELFPAY ==
[2022-01-30 07:58] VITALS: BP 161/111; PULSE 87; RESP 17; TEMP 36.6; O2SAT 100; BMI 38.2
[2022-01-30 08:22] VITALS: BP 161/111; PULSE 87; RESP 17; TEMP 36.6; O2SAT 100
--- NOTE | 2022-01-30 08:22 | CT_ITS ---
STUDY: CT ABDOMEN AND PELVIS WITH CONTRAST REASON FOR EXAM: Female, 42 years old. Post op abdominal pain LLQ. Patient status post recent oophorectomy. RADIATION DOSAGE (If Supplied By Facility): CTDIvol = ( 14.94 ) mGy, DLP = ( 928.19 ) mGycm TECHNIQUE: Transaxial images were obtained from the dome of the diaphragm to the symphysis pubis without oral contrast. IV 100mL Isovue-300 was administered. Sagittal and coronal images were reconstructed. Individualized dose optimization techniques were used for this CT. COMPARISON: Comparison is made with prior examination dated 09/08/2018. FINDINGS: Mild degree of increased markings at the lung bases suggestive of a right basilar atelectasis. The visualized portions of the heart are within normal limits. Normal liver. There are surgical clips in the gallbladder fossa consistent with a prior cholecystectomy. Normal spleen. Normal pancreas. Normal bilateral adrenal glands. 3 mm calculus in the lower pole calyx of the right kidney. Normal left kidney. Normal visualized stomach. Normal small intestine. Normal colon. The patient is status post appendectomy. Normal abdominal aorta. Normal inferior vena cava. Normal retroperitoneum. Mild degree of increased markings in the peritoneal fat in the left hemipelvis. This may represent postoperative changes. No focal abscess or fluid collection is seen at this time. Normal urinary bladder. There is absence of the uterus consistent with a prior hysterectomy. Normal abdominal wall. Normal osseous structures. CT/Abdomen/Pelvis W IV Cont ONLY IMPRESSION: Mild degree of increased markings in the left pelvic fat most likely secondary to recent surgery. No focal abscess is seen at this time. The remainder of the examination is unchanged. Electronically Signed: Siva Jacobs MD at 9:48 EDT ,
--- NOTE | 2022-01-30 08:23 | EDS_ITS ---
HPI HPI - GI History of Present Illness Chief Complaint: Abd Pain Detail of Chief Complaint: Abdominal pain Informant: patient Narrative Narrative: Patient presents emergency department complaint of abdominal pain that started 2 days ago. Patient states she is postop 4 days out from robotic surgery to remove her left ovary and right ovary. Patient tells me she had a mass and a cyst on her left ovary but that the mass was benign. Patient had the surgery performed at [facility] by Dr. Camacho. Patient states that over the last 2 days she is had increasing pain to the left lower quadrant especially with movement. She feels a pulling and a tearing in the left side. She denies fever although she is had some mild nausea. She has not had a bowel movement since her surgery but states that that is not unusual for her. Patient denies dysuria or frequency or urgency. Prior similar symptoms: No PFSH PFSH Medical History Arthritis Asthma Back pain Brain aneurysm Chest pain complex migraine CPAP (continuous positive airway pressure) dependence Empty sella Family history of brain aneurysm Fatigue Fibromyalgia GERD (gastroesophageal reflux disease) High cholesterol High triglycerides History of breast lump History of chronic bronchitis History of fatty infiltration of liver History of gallstones History of IBS History of kidney stones History of loss of consciousness History of PCOS History of PSVT (paroxysmal supraventricular tachycardia) History of UTI Hormone deficiency Hx of echocardiogram Hx of protein S deficiency Hypoglycemia Hypothyroidism IBS (irritable bowel syndrome) Injury of head and neck Intervertebral disc degeneration Limb weakness Mid back pain on left side Migraines Non-smoker CADENCE (obstructive sleep apnea) Protein S deficiency Restless legs Seasonal allergies Stomach ulcer Tachycardia Thyroid disease Thyroid nodule Ulcer Urinary frequency Home Medications lorazepam 0.5 mg tablet 0.5 mg PO DAILY PRN PRN Anxiety 11/23/19 [History Last Taken 09/10/20 21:00] levothyroxine 88 mcg capsule 88 mcg PO MOTUWETHFRSA 08/23/20 [History Last Taken 07/30/21] tizanidine 2 mg tablet 2 mg PO QHS PRN MUSCLE SPASMS 07/09/21 [History Last Taken Unknown] docusate sodium 100 mg capsule 100 mg PO BID PRN Constipation 01/30/22 [History Last Taken Unknown] ibuprofen 600 mg tablet 600 mg PO Q6H PRN PRN Pain 01/30/22 [History Last Taken 01/30/22 03:00] oxycodone 5 mg tablet 5 mg PO Q6H PRN PRN Pain 01/30/22 [History Last Taken 01/30/22 05:30] oxycodone-acetaminophen 5 mg-325 mg tablet 1 tab PO Q6H PRN PRN Pain 3 days #12 TABLETS 01/30/22 [Rx Last Taken Unknown] Allergy/AdvReac Type Severity Reaction Status Date / Time Penicillins Allergy Severe Anaphylaxis Verified 01/30/22 07:55 adhesive Allergy Rash Verified 01/30/22 07:55 Family History Grandmother Hypertension Brother Diabetes Grandfather CVA (cerebral vascular accident) Alcoholism Bleeding disorder DVT (deep venous thrombosis) Father Hypertension Anxiety Arthritis Bowel disease Depression High cholesterol Thyroid disorder Mother Supraventricular tachycardia Anesthesia complication Anxiety Angina pectoris Arthritis Rheumatoid arthritis Bowel disease Breast cancer Depression Myocardial infarction Heart disease High cholesterol Hypertension Kidney disease Thyroid disorder Surgical History H/O bilateral salpingectomy H/O ovarian cystectomy History of appendectomy History of cholecystectomy History of endometrial ablation History of extraction of renal calculus History of total vaginal hysterectomy (TVH) Hx of dilation and curettage [place] teeth extracted Social History Smoking Status: Never smoker alcohol intake: current alcohol intake frequency: holidays/special occasions only details: social substance use type: does not use diet: other caffeine: Yes what type of physical activity do you participate in: walking and weight training frequency: 3-4 times per week seatbelt use: always do you feel safe at home: Yes ROS ROS ED Review of Systems ROS Unobtainable: other Constitutional Constitutional ED: Reports lethargy; Denies chills, fever(s), sweats or weight loss Eyes Eyes: Denies blurry vision, change in vision or diplopia ENT ENT ED: Denies rhinorrhea or sore throat Cardiovascular Cardiovascular: Denies chest pain, orthopnea or racing heartbeat Respiratory/Chest Respiratory/Chest: Denies cough, dyspnea, dyspnea on exertion, orthopnea or sputum Gastrointestinal Gastrointestinal: Reports abdominal pain and nausea; Denies diarrhea or vomiting Genitourinary Genitourinary ED: Denies dysuria, hematuria or urinary frequency Musculoskeletal Musculoskeletal: Denies arthralgias, back pain, myalgias or neck pain Integumentary Denies abscess, Abrasions or rash Neurologic Neurologic: Denies headache(s) or weakness Psychiatric Psychiatric: Denies anxiety, depression or suicidal thoughts Endocrine Endocrinology: Denies polydipsia, polyphagia or polyuria Hematologic/Lymphatic Hematologic/Lymphatic: Denies easy bleeding, easy bruising or lymphadenopathy Allergic/Immunologic Allergic/Immunologic ED: Denies mouth swelling, tongue swelling or urticaria EXAM Physical Exam Const Vital Signs: 01/30/22 07:58 01/30/22 08:22 Temperature 97.9 F 97.9 F Temperature Source Temporal Temporal Pulse Rate 87 87 Respiratory Rate 17 17 Blood Pressure 161/111 H 161/111 H Blood Pressure Mean 127 127 Pulse Ox 100 100 Oxygen Delivery Method Room Air Room Air Positive well nourished and well developed General Appearance ED: well developed and NAD HEENT Reports TM's clear and moist mucous membranes normocephalic and atraumatic; Negative for trauma or tenderness Tympanic Membrane ED: Yes TM's clear Eyes PERRL and EOMs intact bilaterally General Eye ED: Negative for pale conjunctiva or scleral icterus Neck no lymphadenopathy, supple and no JVD General: Negative for tenderness Chest Wall inspection of chest normal and palpation of chest normal Chest: Negative for tenderness Resp normal respiratory effort and clear to auscultation bilaterally Effort and Inspection: Negative for respiratory distress or pain with movement Auscultation: Negative for rhonchi, wheezes or diminished lung sounds Cardio regular rate, regular rhythm, S1 normal heart sound, S2 normal heart sound and no murmurs Peripheral Pulses: pulses 2+ throughout GI soft to palpation, non-distended and no masses GI Narrative: Patient with for port sites noted on the abdomen that appear well approximated without any evidence of purulent drainage or erythema or cellulitic changes. Patient has tenderness palpation over left lower quadrant with some guarding. There is no rebound, rigidity, or peritoneal signs. Back/Spine no CVA tenderness and no thoracic nor lumbar tenderness Extremity normal to inspection General Extremety ED: Negative for edema General Extremity: Negative for edema Neuro oriented x3, CN's II-XII intact bilaterally, no sensory deficits noted and gait normal Sensorium / Orientation: awake, alert, oriented to person, oriented to place and oriented to time Motor Exam: strength 5/5 throughout and strength abnormal Psych mental status grossly normal Skin no rashes or lesions noted and no wounds MDM MDM MDM Narrative Medical decision making narrative: IV line established on arrival. Patient was medicated morphine and Zofran. Patient had a lab work-up that was unremarkable. Urinalysis was normal. CT scan of the abdomen pelvis was obtained with IV contrast which showed some increased markings in the left pelvic fat most likely secondary to recent surgery. No focal abscess seen. Remainder of exam was unremarkable. At this point I discussed case with patient's surgeon of record Dr. Camacho who had no further recommendations other than follow-up with their office at the allotted time next Thursday. Patient comfortable with plan going home. I will write her a prescription for oxycodone as she only has 3 left for pain. Patient vies return if worsening pain, fever, vomiting, or condition worsen anyway. Lab Data Attestation: I reviewed the patient's lab results. Labs: Laboratory Results - last 24 hr 01/30/22 01/30/22 01/30/22 08:35 08:35 08:36 WBC 10.1 RBC 4.34 Hgb 13.3 Hct 40.2 MCV 92.6 MCH 30.6 MCHC 33.1 RDW Std Deviation 44.5 H RDW Coeff of Jeff 13.2 Plt Count 270 MPV 9.6 Immature Gran % (Auto) 0.200 Neut % (Auto) 66.2 Lymph % (Auto) 20.0 Pershing % (Auto) 5.5 Eos % (Auto) 7.7 H Baso % (Auto) 0.4 Absolute Neuts (auto) 6.7 Absolute Lymphs (auto) 2.01 Nucleated RBC % 0 Sodium 140 Potassium 3.7 Chloride 105 Carbon Dioxide 30.0 Anion Gap 5 BUN 11 Creatinine 0.67 Estim Creat Clear Calc 78.57 Est GFR (MDRD) Af Amer 124 Est GFR (MDRD) Non-Af 103 BUN/Creatinine Ratio 16.4 Glucose 87 Calcium 8.6 Urine Color Yellow Urine Clarity Clear Urine pH 7.0 Ur Specific [place] 1.010 Urine Protein Negative Urine Glucose (UA) Normal Urine Ketones Negative Urine Occult Blood Negative Urine Nitrite Negative Urine Bilirubin Negative Urine Urobilinogen Normal Ur Leukocyte Esterase Negative Urine RBC 0 SEEN Urine WBC 0-5 SEEN Ur Squamous Epith Cells 0-5 SEEN Urine Bacteria 0 SEEN Urine Mucus 0 SEEN Radiography Diagnostic Testing: Clinical Impression(s) from Imaging Studies Abdomen/Pelvis CT 01/30/22 08:22 IMPRESSION: Mild degree of increased markings in the left pelvic fat most likely secondary to recent surgery. No focal abscess is seen at this time. The remainder of the examination is unchanged. Electronically Signed: Siva Jacobs MD at 9:48 EDT , Discharge Plan Triage Chief Complaint: Abd Pain ED Provider: Minh Stallings Dx/Rx/DC Orders Clinical Impression: Acute postoperative abdominal pain Instructions: ED Post Op Wound Check, Pain Prescriptions: New oxycodone-acetaminophen [oxycodone-acetaminophen] 5-325 mg tablet 1 tab PO Q6H PRN PRN (Reason: Pain) 3 Days Qty: 12 0RF No Action levothyroxine 88 mcg capsule 88 mcg PO MOTUWETHFRSA Rx Instructions: skip thursday tizanidine 2 mg tablet 2 mg PO QHS PRN (Reason: MUSCLE SPASMS) lorazepam 0.5 MG tablet 0.5 mg PO DAILY PRN PRN (Reason: Anxiety) docusate sodium 100 mg capsule 100 mg PO BID PRN (Reason: Constipation) Label Comments: TAKE 1 CAPSULE BY MOUTH 2 TIMES DAILY NEEDED FOR CONSTIPATION ibuprofen 600 mg tablet 600 mg PO Q6H PRN PRN (Reason: Pain) Label Comments: TAKE 1 TABLET BY MOUTH EVERY 6 HOURS NEEDED FOR PAIN oxycodone 5 mg tablet 5 mg PO Q6H PRN PRN (Reason: Pain) Label Comments: TAKE 1 TABLET BY MOUTH EVERY 6 HOURS NEEDED FOR PAIN FOR UP TO 3 DAYS. TAKE LOWEST DOSE POSSIBLE TO MANAGE PAIN Primary Care Provider: Jose Luis Toledo Referrals: Jose Luis Toledo DO [Primary Care Provider] - Activity Restrictions/Additional Instructions: Keep your appointment with your surgeon's office as instructed. Disposition Disposition: Home, Self Care
[2022-01-30] MEDS: 0.9% Normal Saline 1,000 ML 125 ML IV (08:42)
[2022-01-30] MEDS: Ondansetron 4 MG/2 ML Vial IV (08:43)
[2022-01-30 08:44] LABS: Bacteria 0 SEEN /hpf (None Seen); Mucous, Urine 0 SEEN /hpf (<or=2+); Red Blood Cells-Urine 0 SEEN /hpf (0-5)
[2022-01-30] MEDS: Morphine 4 MG/ML Syringe IV (08:44)
[2022-01-30 08:45] LABS: Color, Urine Yellow (Yellow); Glucose, Dipstick Normal (Normal); Ketone-Dipstick Negative (Negative); Leukocyte Esterase-Dipstick Negative /ul (Negative); Nitrite-Dipstick Negative (Negative); Occult Blood-Urine Negative /ul (Negative); Protein-Dipstick Negative (Negative); Urine Bilirubin Dipstick Negative (Negative); Urine Clarity Clear (Clear); Urine Urobilinogen Normal (Normal)
[2022-01-30 08:46] LABS: Absolute Lymphocyte Count 2.01 X10^3/uL (0.83-4.51); Absolute Neutrophil Count 6.7 X10^3/uL (2.0-7.7); Basophil# 0.04 X10^3/uL; Basophil% 0.4 % (0-1); Eosinophil# 0.78 X10^3/uL; Eosinophils% 7.7 % (0-5); Hematocrit 40.2 % (37-47); Hemoglobin 13.3 g/dL (12.0-15.0); Lymphocyte # 2.01 X10^3/ul (0.83-4.51); Mean Corp Hgb Conc 33.1 g/dL (32-36); Mean Corpuscular Hgb 30.6 pg (27.0-32.0); Mean Corpuscular Volume 92.6 fL (81-99); Mean Platelet Vol. 9.6 fl (6.2-12.0); Monocyte# 0.55 X10^3/uL; Monocyte% 5.5 % (0-10); NRBC Flagged by Analyzer 0 % (0-5); Neutrophil # 6.67 X10^3/uL (2.7-7.7); Neutrophil % 66.2 % (47-70); Platelet Count 270 K/mm3 (150-450); RBC Distribution Width CV 13.2 % (11.6-14.6); RBC Distribution Width SD 44.5 fl (35.1-43.9); Red Blood Count 4.34 M/mm3 (4.2-5.4); White Blood Count 10.1 K/mm3 (4.4-11.0)
[2022-01-30 08:56] LABS: Squamous Epithelial Cells - UA 0-5 SEEN /hpf (5-10); White Blood Cells 0-5 SEEN /hpf (0-5)
[2022-01-30 09:00] LABS: Anion Gap 5 (5-15); BUN 11 mg/dL (7-18); BUN/Creat Ratio 16.4 RATIO (10-20); Calcium,Total 8.6 mg/dL (8.5-10.1); Chloride 105 mmol/L (98-107); Creatinine, Serum 0.67 mg/dL (0.55-1.02); EST Glomerular Filtration Rate 103 mL/min (>60); Est Glom Filt Rate - Afr Amer 124 mL/min (>60); Estimated Creatinine Clearance 78.57 ml/min; Glucose 87 mg/dL (74-106); Potassium 3.7 mmol/L (3.5-5.1); Sodium Level 140 mmol/L (136-145)
[2022-01-30 09:30] VITALS: PULSE 73; RESP 16
== END 2022-01-30 11:52 | disposition home or self-care (01) ==
PROVIDERS: Emergency Provider Emergency Medicine; PCP Student in an Organized Health Care Education/Training Program; Visit Provider Emergency Medicine
DX: R10.9 Unspecified abdominal pain (principal); R11.0 Nausea; M19.90 Unspecified osteoarthritis, unspecified site; J45.909 Unspecified asthma, uncomplicated; M79.7 Fibromyalgia; K21.9 Gastro-esophageal reflux disease without esophagitis; E78.00 Pure hypercholesterolemia, unspecified; E03.9 Hypothyroidism, unspecified; Z79.899 Other long term (current) drug therapy; G47.33 Obstructive sleep apnea (adult) (pediatric); Z79.890 Hormone replacement therapy
CPT/HCPCS: 74177; 80048; 81001; 85025; 96374; 96375; 99283; J7030; Q9967; A4216; J2405

== ENCOUNTER → 2022-04-29 | Outpatient (CLI) | payer MEDICAID, SELFPAY ==
--- NOTE | 2022-04-29 09:18 | US_ITS ---
HISTORY: Pelvic pain. TECHNIQUE: Transabdominal and transvaginal pelvic ultrasound was performed with cunningham scale , spectral Doppler, and color Doppler evaluation. 61 images. COMPARISON: CT 01/30/2022, CABG 01/13/2022. FINDINGS: UTERUS: Surgically absent. OVARIES: Surgically absent. 1 x 1.1 x 1.1 cm left pelvic cyst with internal echoes. No right adnexal masses. FREE FLUID: None. URINARY BLADDER: Unremarkable at 377 cc. US/Pelvic (Non ) IMPRESSION: Hysterectomy and bilateral oophorectomy. Small left pelvic cyst containing hemorrhage or internal debris. Recommend follow-up. Electronically Signed: Chen Nelson MD at 15:29 EST ,
== END | disposition home or self-care (01) ==
LOC: US 09:17
PROVIDERS: PCP Student in an Organized Health Care Education/Training Program; Visit Provider Obstetrics & Gynecology
DX: R10.2 Pelvic and perineal pain (principal)
CPT/HCPCS: 76830; 76856

== ENCOUNTER → 2022-05-15 | Outpatient (CLI) | payer MEDICAID, SELFPAY ==
[2022-05-15 10:20] LABS: Estradiol 23.1 pg/mL; Follicle Stimulating Hormone 102.8 mIU/mL
== END | disposition home or self-care (01) ==
LOC: PAVLAB 09:36
PROVIDERS: PCP Student in an Organized Health Care Education/Training Program; Referring Provider Obstetrics & Gynecology; Visit Provider Obstetrics & Gynecology
DX: N95.1 Menopausal and female climacteric states (principal)
CPT/HCPCS: 36415; 82670; 83001

== ENCOUNTER → 2022-05-22 | Outpatient (CLI) | payer MEDICAID, SELFPAY ==
[2022-05-24 14:17] LABS: Cancer Antigen 125 7.7 U/mL (0.0-38.1); Carcinoembryonic Antigen 0.7 ng/mL (0.0-4.7)
== END | disposition home or self-care (01) ==
LOC: PAVLAB 08:27
PROVIDERS: PCP Student in an Organized Health Care Education/Training Program; Referring Provider Obstetrics & Gynecology; Visit Provider Obstetrics & Gynecology
DX: Z12.9 Encounter for screening for malignant neoplasm, site unspecified (principal)
CPT/HCPCS: 36415; 82378; 86304

== ENCOUNTER → 2022-06-24 | Outpatient (CLI) | payer MEDICAID, SELFPAY ==
--- NOTE | 2022-06-24 08:36 | US_ITS ---
STUDY: ULTRASOUND OF THE FEMALE PELVIS - COMPLETE REASON FOR EXAM: Female, 42 years old. Climacteric LMP: Patient is post hysterectomy. TECHNIQUE: Transabdominal and Transvaginal TECHNICAL QUALITY: Adequate. COMPARISON: Comparison is made with prior examination dated 04/29/2022. FINDINGS: The patient is status post hysterectomy. The right ovary is non-visualized. The patient is status post right oophorectomy. The left ovary is non-visualized. The patient is status post left oophorectomy. There is no fluid in the cul-de-sac. US/Pelvic (Non ) IMPRESSION: Status post hysterectomy and bilateral oophorectomy. No cyst is seen at this time. Electronically Signed: Siva Jacobs MD at 12:54 EST ,
== END | disposition home or self-care (01) ==
LOC: OPUS 08:29
PROVIDERS: PCP Student in an Organized Health Care Education/Training Program; Referring Provider Obstetrics & Gynecology; Visit Provider Obstetrics & Gynecology
DX: N95.1 Menopausal and female climacteric states (principal)
CPT/HCPCS: 76830; 76856

== ENCOUNTER → 2022-07-03 | Outpatient (CLI) | payer MEDICAID, SELFPAY ==
--- NOTE | 2022-07-03 07:08 | BI_ITS ---
MAMMOGRAPHY - BILATERAL SCREENING REASON FOR EXAM: Female, 42 years old. Routine annual screening examination. PERTINENT HISTORY: Mother with breast cancer. Aunt with breast cancer. TECHNIQUE: Digital bilateral breast keenan (3D mammographic acquisition) in the CC and MLO projections. 2-D mediolateral oblique (MLO) and craniocaudad (CC) views of both breasts were obtained. CAD: Full Field Digital Mammography with Computer Added Detection was performed. COMPARISON: Comparison is made with prior study dated June 11, 2021 and June 05, 2020. FINDINGS: Breast Composition: There are scattered areas of fibroglandular density. There are no dominant masses or suspicious calcifications. No other significant abnormalities are identified. There has been no significant change since the prior study. BI/SCRN MAMM (CAD)W/KEENAN BILAT IMPRESSION: Stable bilateral screening mammogram. Yearly follow-up mammogram recommended. (A) ASSESSMENT CATEGORY: BIRADS Category 1: Negative. A letter regarding these results will be sent to the patient by the facility within 30 days. Approximately 10% of breast cancers are not detected by mammography. A normal mammogram should not delay biopsy of a clinically suspicious abnormality. [id number] Electronically Signed: Siva Jacobs MD at 8:10 EST ,
== END | disposition home or self-care (01) ==
LOC: OPBI 07:07
PROVIDERS: PCP Student in an Organized Health Care Education/Training Program; Visit Provider Obstetrics & Gynecology
DX: Z12.31 Encounter for screening mammogram for malignant neoplasm of breast (principal)
CPT/HCPCS: 77063; 77067

== ENCOUNTER 2023-02-14 05:37 | Emergency (ER) | payer BC, MEDICAID, SELFPAY ==
[2023-02-14 05:38] VITALS: PULSE 90; RESP 16; TEMP 36.9; O2SAT 98; BMI 39.2
[2023-02-14] MEDS: 0.9% Normal Saline (1000mL) 1,000 ML 999 ML IV (06:11)
[2023-02-14] MEDS: Ondansetron 4 MG/2 ML Vial IV (06:11)
[2023-02-14] MEDS: Morphine 4 MG/ML Syringe IV (06:11)
[2023-02-14 06:23] LABS: Anion Gap 7 (5-15); BUN 23 mg/dL (7-18); BUN/Creat Ratio 32.2 RATIO (10-20); Calcium,Total 8.9 mg/dL (8.5-10.1); Chloride 110 mmol/L (98-107); Creatinine, Serum 0.71 mg/dL (0.55-1.02); EST Glomerular Filtration Rate 95 mL/min (>60); Est Glom Filt Rate - Afr Amer 115 mL/min (>60); Estimated Creatinine Clearance 73.39 ml/min; Glucose 101 mg/dL (74-106); Sodium Level 144 mmol/L (136-145)
[2023-02-14 06:23] LABS: Mucous, Urine 0 SEEN /hpf (<or=2+); Squamous Epithelial Cells - UA 0 SEEN /hpf (5-10)
[2023-02-14 06:31] LABS: Absolute Lymphocyte Count 2.76 X10^3/uL (0.83-4.51); Absolute Neutrophil Count 4.5 X10^3/uL (2.0-7.7); Basophil# 0.06 X10^3/uL; Basophil% 0.7 % (0-1); Eosinophil# 0.39 X10^3/uL; Eosinophils% 4.7 % (0-5); Hematocrit 42.1 % (37-47); Hemoglobin 13.5 g/dL (12.0-15.0); Lymphocyte # 2.76 X10^3/ul (0.83-4.51); Lymphocyte % 33.2 % (19-41); Mean Corp Hgb Conc 32.1 g/dL (32-36); Mean Corpuscular Hgb 29.6 pg (27.0-32.0); Mean Corpuscular Volume 92.3 fL (81-99); Mean Platelet Vol. 10.5 fl (6.2-12.0); Monocyte% 7.2 % (0-10); NRBC Flagged by Analyzer 0 % (0-5); Neutrophil # 4.48 X10^3/uL (2.7-7.7); Platelet Count 256 K/mm3 (150-450); RBC Distribution Width CV 13.2 % (11.6-14.6); RBC Distribution Width SD 44.7 fl (35.1-43.9); Red Blood Count 4.56 M/mm3 (4.2-5.4); White Blood Count 8.3 K/mm3 (4.4-11.0)
[2023-02-14 06:32] LABS: Color, Urine Yellow (Yellow); Glucose, Dipstick Normal (Normal); Ketone-Dipstick Negative (Negative); Leukocyte Esterase-Dipstick 25 /ul (Negative); Nitrite-Dipstick Negative (Negative); Occult Blood-Urine 150 /ul (Negative); Protein-Dipstick 30 mg/dl (Negative); Urine Bilirubin Dipstick Negative (Negative); Urine Clarity Clear (Clear); Urine Urobilinogen Normal (Normal)
[2023-02-14 06:40] LABS: Bacteria 1+ /hpf (None Seen); Red Blood Cells-Urine 10-25 SEEN /hpf (0-5); White Blood Cells 5-10 SEEN /hpf (0-5)
--- NOTE | 2023-02-14 06:51 | EX.ED.DYSGE1 ---
HPI History of Present Illness Chief Complaint: Flank Pain Informant: patient Narrative Narrative: Patient is a 43-year-old female with past medical history of kidney stone. She states she follows with a urologist out of [facility]. She states roughly 2 weeks ago she developed some back pain and abdominal pain and then had bright red blood in her urine. She states she followed up with her urologist and was informed she has a kidney stone. She states she is waiting for her repeat ultrasound and x-ray and has been taking ibuprofen and Tylenol but in the last 24 hours has had increased pain and therefore comes in for evaluation. She also states she has had increased urinary frequency with concern for UTI [facility] Medical History (Updated 02/15/23 @ 00:[address] Maykel Mann, DO) Arthritis Asthma Back pain Brain aneurysm Chest pain complex migraine CPAP (continuous positive airway pressure) dependence Empty sella Family history of brain aneurysm Fatigue Fibromyalgia GERD (gastroesophageal reflux disease) High cholesterol High triglycerides History of breast lump History of chronic bronchitis History of fatty infiltration of liver History of gallstones History of IBS History of kidney stones History of loss of consciousness History of PCOS History of PSVT (paroxysmal supraventricular tachycardia) History of UTI Hormone deficiency Hx of echocardiogram Hx of protein S deficiency Hypoglycemia Hypothyroidism IBS (irritable bowel syndrome) Injury of head and neck Intervertebral disc degeneration Limb weakness Mid back pain on left side Migraines Non-smoker CADENCE (obstructive sleep apnea) Protein S deficiency Restless legs Seasonal allergies Stomach ulcer Tachycardia Thyroid disease Thyroid nodule Ulcer Urinary frequency Home Medications lorazepam 0.5 mg tablet 0.5 mg PO DAILY PRN PRN Anxiety 11/23/19 [History Last Taken 09/10/20 21:00] levothyroxine 88 mcg capsule 88 mcg PO MOTUWETHFRSA 08/23/20 [History Last Taken 07/30/21] tizanidine 2 mg tablet 2 mg PO QHS PRN MUSCLE SPASMS 07/09/21 [History Last Taken Unknown] veiwrtaijd-jvfflmmsgyrmc-azqshski 50 mg-325 mg-40 mg tablet 1 tab PO Q6H PRN pain 02/14/23 [History Last Taken Unknown] fluconazole 150 mg tablet 150 mg PO DAILY 2 doses #2 tabs 02/14/23 [Rx Last Taken Unknown] oxycodone-acetaminophen 5 mg-325 mg tablet (Percocet) 1 tab PO Q6H PRN pain 3 days #12 tabs 02/14/23 [Rx Last Taken Unknown] promethazine 25 mg tablet 25 mg PO TID PRN nausea and vomiting 7 days #21 tabs 02/14/23 [Rx Last Taken Unknown] sulfamethoxazole 800 mg-trimethoprim 160 mg tablet (Bactrim DS) 1 tab PO BID 7 days #14 tabs 02/14/23 [Rx Last Taken Unknown] Allergy/AdvReac Type Severity Reaction Status Date / Time Penicillins Allergy Severe Anaphylaxis Verified 09/01/22 08:25 adhesive Allergy Rash Verified 09/01/22 08:25 Family History Grandmother Hypertension Brother Diabetes Grandfather CVA (cerebral vascular accident) Alcoholism Bleeding disorder DVT (deep venous thrombosis) Father Hypertension Anxiety Arthritis Bowel disease Depression High cholesterol Thyroid disorder Mother Supraventricular tachycardia Anesthesia complication Anxiety Angina pectoris Arthritis Rheumatoid arthritis Bowel disease Breast cancer Depression Myocardial infarction Heart disease High cholesterol Hypertension Kidney disease Thyroid disorder Surgical History H/O bilateral salpingectomy H/O ovarian cystectomy History of appendectomy History of cholecystectomy History of endometrial ablation History of extraction of renal calculus History of total vaginal hysterectomy (TVH) Hx of dilation and curettage S/P oophorectomy [place] teeth extracted Social History Smoking Status: Never smoker alcohol intake: current alcohol intake frequency: holidays/special occasions only details: social substance use type: does not use diet: other caffeine: Yes what type of physical activity do you participate in: walking and weight training frequency: 3-4 times per week seatbelt use: always do you feel safe at home: Yes ROS ROS ED Constitutional Constitutional ED: Denies chills or fever(s) ENT ENT ED: Denies sore throat Cardiovascular Cardiovascular: Denies chest pain Respiratory/Chest Respiratory/Chest: Denies cough or dyspnea Gastrointestinal Gastrointestinal: Reports abdominal pain and nausea; Denies diarrhea or vomiting Genitourinary Genitourinary ED: Reports dysuria and hematuria Musculoskeletal Musculoskeletal: Reports back pain; Denies myalgias Integumentary Denies rash Neurologic Neurologic: Denies headache(s) Hematologic/Lymphatic Hematologic/Lymphatic: Denies easy bleeding or easy bruising EXAM Physical Exam Const Vital Signs: 02/14/23 05:38 Temperature 98.5 F Temperature Source Temporal Pulse Rate 90 Respiratory Rate 16 Pulse Ox 98 Positive well nourished and well developed General Appearance ED: well developed; Negative for pallor HEENT HEENT Narrative: Normocephalic atraumatic Eyes PERRL and EOMs intact bilaterally General Eye ED: Negative for pale conjunctiva or scleral icterus Neck supple Resp normal respiratory effort and clear to auscultation bilaterally Cardio regular rate and regular rhythm Rate: other Other Details: Radial and carotid pulses are equal and symmetric Heart is regular rate and rhythm without murmurs rubs or gallops GI non-distended and no masses GI Narrative: No voluntary guarding or rigidity No pulsatile mass or fluid wave There is mild suprapubic tenderness to palpation Auscultation: normoactive bowel sounds Palpation: soft Back/Spine Back/Spine Narrative: Positive left CVA pain noted Extremity normal to inspection Neuro oriented x3, CN's II-XII intact bilaterally and no sensory deficits noted Sensorium / Orientation: alert Motor Exam: strength 5/5 throughout Psych mental status grossly normal Skin no rashes or lesions noted Skin Narrative: No overlying soft tissue changes to suggest trauma or infection General Skin Exam: Negative for jaundice or pallor MDM MDM MDM Narrative Medical decision making narrative: Patient arrived to the ER with stable vitals and reported a recent diagnosis of of kidney stone outside facility. At this time based on that report I do not feel there is need for repeat imaging studies. With her report of frequency and dysuria there is concern for secondary UTI but also as she has not passed her stone over the past 2 weeks there is concern for acute kidney injury or electrolyte derangement. Secondary to his basic labs were obtained. Patient's white count as well as her H&H are normal her kidney function is normal and there is no Niccoli significant electrolyte abnormality. Patient's urine sample does show signs of infection but based on her vitals and labs she does not have urosepsis. Therefore this time as she does not have urosepsis or acute kidney injury and her pain has been controlled I do not feel there is need for admission or transfer she be given antibiotics as well as symptomatic pain control and is otherwise safe for discharge History & Record Review Discussion w/independent historian: Patient Lab Data Attestation: I reviewed the patient's lab results. Labs: Laboratory Results - last 24 hr 02/14/23 02/14/23 05:45 06:15 WBC 8.3 RBC 4.56 Hgb 13.5 Hct 42.1 MCV 92.3 MCH 29.6 MCHC 32.1 RDW Std Deviation 44.7 H RDW Coeff of Jeff 13.2 Plt Count 256 MPV 10.5 Immature Gran % (Auto) 0.200 Neut % (Auto) 54.0 Lymph % (Auto) 33.2 [place] % (Auto) 7.2 Eos % (Auto) 4.7 Baso % (Auto) 0.7 Absolute Neuts (auto) 4.5 Absolute Lymphs (auto) 2.76 Nucleated RBC % 0 Sodium 144 Potassium 4.0 Chloride 110 H Carbon Dioxide 27.0 Anion Gap 7 BUN 23 H Creatinine 0.71 Estim Creat Clear Calc 73.39 Est GFR (MDRD) Af Amer 115 Est GFR (MDRD) Non-Af 95 BUN/Creatinine Ratio 32.2 H Glucose 101 Calcium 8.9 Urine Color Yellow Urine Clarity Clear Urine pH 6.0 Ur Specific [place] 1.020 Urine Protein 30 H Urine Glucose (UA) Normal Urine Ketones Negative Urine Occult Blood 150 H Urine Nitrite Negative Urine Bilirubin Negative Urine Urobilinogen Normal Ur Leukocyte Esterase 25 H Urine RBC 10-25 SEEN Urine WBC 5-10 SEEN Ur Squamous Epith Cells 0 SEEN Urine Bacteria 1+ Urine Mucus 0 SEEN Discharge Plan Triage Chief Complaint: Flank Pain ED Provider: Maykel Mann Dx/Rx/DC Orders Clinical Impression: UTI (urinary tract infection), Renal colic, Kidney stone, Hypothyroidism Instructions: Urinary Tract Infections in Women, ED Kidney Stone w/ Colic Prescriptions: New promethazine 25 mg tablet 25 mg PO TID PRN (Reason: nausea and vomiting) 7 Days Qty: 21 0RF sulfamethoxazole-trimethoprim [Bactrim DS] 800-160 mg tablet 1 tab PO BID 7 Days Qty: 14 0RF oxycodone-acetaminophen [Percocet] 5-325 mg tablet 1 tab PO Q6H PRN (Reason: pain) 3 Days Qty: 12 0RF fluconazole 150 mg tablet 150 mg PO DAILY Qty: 2 0RF Rx Instructions: Take 1 pill by mouth at start of antibiotics and 1 pill by mouth once antibiotics are finished No Action levothyroxine 88 mcg capsule 88 mcg PO MOTUWETHFRSA Rx Instructions: skip thursday tizanidine 2 mg tablet 2 mg PO QHS PRN (Reason: MUSCLE SPASMS) lorazepam 0.5 MG tablet 0.5 mg PO DAILY PRN PRN (Reason: Anxiety) bjwynxbdcq-pkgrzmtewsazi-dpxv 50-325-40 mg tablet 1 tab PO Q6H PRN (Reason: pain) Patient Comments: TAKE 1 TABLET BY MOUTH EVERY 6 HOURS NEEDED FOR HEADACHE FOR UP TO 30 DAYS. Primary Care Provider: Jose Luis Toledo Referrals: Katiuska Salmon MD [Med Staff - Active Staff] - Jose Luis Toledo DO [Primary Care Provider] - Activity Restrictions/Additional Instructions: Please follow-up with urology for repeat evaluation and return to the ER if you develop a fever over 100.4 or your pain is not controlled with outpatient medications Disposition Disposition: Home, Self Care Discharge Date/Time: 02/14/23 07:16
[2023-02-14] MEDS: oxyCODONE 5 MG Tablet 10 MG PO (07:13)
[2023-02-14] MEDS: Smz/Tmp Ds Tablet 1 TABLET PO (07:13)
== END 2023-02-14 07:16 | disposition home or self-care (01) ==
PROVIDERS: Emergency Provider Emergency Medicine; PCP Student in an Organized Health Care Education/Training Program; Visit Provider Emergency Medicine
DX: N39.0 Urinary tract infection, site not specified (principal); E78.00 Pure hypercholesterolemia, unspecified; N20.0 Calculus of kidney; E03.9 Hypothyroidism, unspecified; Z99.89 Dependence on other enabling machines and devices; Z90.6 Acquired absence of other parts of urinary tract; Z90.49 Acquired absence of other specified parts of digestive tract; Z90.710 Acquired absence of both cervix and uterus
CPT/HCPCS: 80048; 81001; 85025; 87086; 87088; 96361; 96374; 96375; 99284; J7030; A4216; J2405

== ENCOUNTER 2023-02-24 20:14 | Emergency (ER) | payer MEDICAID, SELFPAY ==
[2023-02-24 20:15] VITALS: BP 151/93; PULSE 98; RESP 16; TEMP 36.4; O2SAT 97; BMI 37.5
[2023-02-24 21:09] LABS: Bacteria 0 SEEN /hpf (None Seen); Mucous, Urine 0 SEEN /hpf (<or=2+)
[2023-02-24 21:12] LABS: Absolute Lymphocyte Count 3.97 X10^3/uL (0.83-4.51); Absolute Neutrophil Count 6.4 X10^3/uL (2.0-7.7); Basophil# 0.08 X10^3/uL; Basophil% 0.7 % (0-1); Eosinophil# 0.37 X10^3/uL; Eosinophils% 3.3 % (0-5); Hematocrit 41.9 % (37-47); Hemoglobin 13.5 g/dL (12.0-15.0); Lymphocyte # 3.97 X10^3/ul (0.83-4.51); Mean Corp Hgb Conc 32.2 g/dL (32-36); Mean Corpuscular Hgb 29.9 pg (27.0-32.0); Mean Corpuscular Volume 92.7 fL (81-99); Mean Platelet Vol. 10.1 fl (6.2-12.0); Monocyte% 4.4 % (0-10); NRBC Flagged by Analyzer 0 % (0-5); Neutrophil % 56.3 % (47-70); Platelet Count 284 K/mm3 (150-450); RBC Distribution Width CV 13.3 % (11.6-14.6); RBC Distribution Width SD 45.8 fl (35.1-43.9); Red Blood Count 4.52 M/mm3 (4.2-5.4); White Blood Count 11.4 K/mm3 (4.4-11.0)
[2023-02-24 21:13] LABS: Color, Urine Yellow (Yellow); Glucose, Dipstick Normal (Normal); Ketone-Dipstick Negative (Negative); Leukocyte Esterase-Dipstick 25 /ul (Negative); Nitrite-Dipstick Negative (Negative); Occult Blood-Urine 250 /ul (Negative); Protein-Dipstick 30 mg/dl (Negative); Specific Gravity, Urine 1.015 (1.002-1.030); Urine Bilirubin Dipstick Negative (Negative); Urine Clarity Cloudy (Clear); Urine Urobilinogen Normal (Normal); Urine pH 6.5 (5.0 - 8.0)
--- NOTE | 2023-02-24 21:20 | CT_ITS ---
STUDY: CT ABDOMEN AND PELVIS WITHOUT CONTRAST REASON FOR EXAM: Female, 43 years old. Right flank pain RADIATION DOSAGE (If Supplied By Facility): CTDIvol = ( 15.30 ) mGy, DLP = ( 810.20 ) mGycm TECHNIQUE: Transaxial images were obtained from the dome of the diaphragm to the symphysis pubis without oral contrast, and without intravenous contrast. Sagittal and coronal images were reconstructed. Individualized dose optimization techniques were used for this CT. COMPARISON: January 30, 2022 FINDINGS: The visualized lung bases are unremarkable. The visualized portions of the heart are within normal limits. Normal liver. There are surgical clips in the gallbladder fossa consistent with a prior cholecystectomy. Normal spleen. Normal pancreas. Normal bilateral adrenal glands. There is 0.6 cm stone of the right kidney. Normal left kidney. Normal visualized stomach. Normal small intestine. Normal colon. There is non-visualization of the appendix. Normal abdominal aorta. Normal inferior vena cava. Normal retroperitoneum. Normal urinary bladder. There is absence of the uterus consistent with a prior hysterectomy. There is no free fluid in the abdomen or pelvis. Normal abdominal wall. There are degenerative changes of the spine. CT/Abdomen/Pelvis without Cont IMPRESSION: Right renal stone. No hydronephrosis. Electronically Signed: Major Dey MD at 22:14 EDT ,
[2023-02-24 21:21] LABS: Internal QC Validated? YES +Cl - CLEAR BKGD; Pregnancy, Serum, hCG Quali. NEGATIVE Negative
[2023-02-24 21:22] LABS: Red Blood Cells-Urine > 100 SEEN /hpf (0-5)
[2023-02-24 21:23] LABS: Squamous Epithelial Cells - UA 0-5 SEEN /hpf (5-10); White Blood Cells 0-5 SEEN /hpf (0-5)
[2023-02-24] MEDS: Morphine 4 MG/ML Syringe IV (21:23)
[2023-02-24] MEDS: Ondansetron 4 MG/2 ML Vial IV (21:23)
[2023-02-24 21:24] LABS: Anion Gap 2 (5-15); BUN 20 mg/dL (7-18); Calcium,Total 8.7 mg/dL (8.5-10.1); Chloride 112 mmol/L (98-107); Creatinine, Serum 0.91 mg/dL (0.55-1.02); EST Glomerular Filtration Rate 72 mL/min (>60); Est Glom Filt Rate - Afr Amer 87 mL/min (>60); Estimated Creatinine Clearance 57.26 ml/min; Glucose 102 mg/dL (74-106); Potassium 3.8 mmol/L (3.5-5.1); Sodium Level 144 mmol/L (136-145)
--- NOTE | 2023-02-24 22:40 | ED.VIS.FEGU ---
HPI HPI - Female History of Present Illness Chief Complaint: Flank Pain Narrative Narrative: 43-year-old female with right flank pain. She has history of ovarian cysts, PCOS, endometriosis. She states that she recently was diagnosed with a kidney stone. Patient does have history of bilateral salpingectomy, hysterectomy. PFSH [facility] Medical History Arthritis Asthma Back pain Brain aneurysm Chest pain complex migraine CPAP (continuous positive airway pressure) dependence Empty sella Family history of brain aneurysm Fatigue Fibromyalgia GERD (gastroesophageal reflux disease) High cholesterol High triglycerides History of breast lump History of chronic bronchitis History of fatty infiltration of liver History of gallstones History of IBS History of kidney stones History of loss of consciousness History of PCOS History of PSVT (paroxysmal supraventricular tachycardia) History of UTI Hormone deficiency Hx of echocardiogram Hx of protein S deficiency Hypoglycemia Hypothyroidism IBS (irritable bowel syndrome) Injury of head and neck Intervertebral disc degeneration Limb weakness Mid back pain on left side Migraines Non-smoker CADENCE (obstructive sleep apnea) Protein S deficiency Restless legs Seasonal allergies Stomach ulcer Tachycardia Thyroid disease Thyroid nodule Ulcer Urinary frequency Home Medications lorazepam 0.5 mg tablet 0.5 mg PO DAILY PRN PRN Anxiety 11/23/19 [History Last Taken 09/10/20 21:00] levothyroxine 88 mcg capsule 88 mcg PO MOTUWETHFRSA 08/23/20 [History Last Taken 07/30/21] tizanidine 2 mg tablet 2 mg PO QHS PRN MUSCLE SPASMS 07/09/21 [History Last Taken Unknown] trhfiravti-jheofesapeghk-lgncfvez 50 mg-325 mg-40 mg tablet 1 tab PO Q6H PRN pain 02/14/23 [History Last Taken Unknown] fluconazole 150 mg tablet 150 mg PO DAILY 2 doses #2 tabs 02/14/23 [Rx Last Taken Unknown] oxycodone-acetaminophen 5 mg-325 mg tablet (Percocet) 1 tab PO Q6H PRN pain 3 days #12 tabs 02/14/23 [Rx Last Taken Unknown] promethazine 25 mg tablet 25 mg PO TID PRN nausea and vomiting 7 days #21 tabs 02/14/23 [Rx Last Taken Unknown] sulfamethoxazole 800 mg-trimethoprim 160 mg tablet (Bactrim DS) 1 tab PO BID 7 days #14 tabs 02/14/23 [Rx Last Taken Unknown] ondansetron 4 mg disintegrating tablet 4 mg PO Q8H PRN PRN Nausea #10 tabs 02/24/23 [Rx Last Taken Unknown] Allergy/AdvReac Type Severity Reaction Status Date / Time Penicillins Allergy Severe Anaphylaxis Verified 02/24/23 20:17 adhesive Allergy Rash Verified 02/24/23 20:17 Family History Grandmother Hypertension Brother Diabetes Grandfather CVA (cerebral vascular accident) Alcoholism Bleeding disorder DVT (deep venous thrombosis) Father Hypertension Anxiety Arthritis Bowel disease Depression High cholesterol Thyroid disorder Mother Supraventricular tachycardia Anesthesia complication Anxiety Angina pectoris Arthritis Rheumatoid arthritis Bowel disease Breast cancer Depression Myocardial infarction Heart disease High cholesterol Hypertension Kidney disease Thyroid disorder Surgical History H/O bilateral salpingectomy H/O ovarian cystectomy History of appendectomy History of cholecystectomy History of endometrial ablation History of extraction of renal calculus History of total vaginal hysterectomy (TVH) Hx of dilation and curettage S/P oophorectomy [place] teeth extracted Social History Smoking Status: Never smoker alcohol intake: current alcohol intake frequency: holidays/special occasions only details: social substance use type: does not use diet: other caffeine: Yes what type of physical activity do you participate in: walking and weight training frequency: 3-4 times per week seatbelt use: always do you feel safe at home: Yes EXAM Physical Exam Const Vital Signs: 02/24/23 20:15 Temperature 97.6 F L Temperature Source Temporal Pulse Rate 98 Respiratory Rate 16 Blood Pressure 151/93 H Blood Pressure Mean 112 Pulse Ox 97 Oxygen Delivery Method Room Air MDM MDM MDM Narrative Medical decision making narrative: Patient presenting with right flank pain. A history of kidney stones. Differential includes kidney stone, UTI, pyelonephritis,. Ectopic . She does not have any ovaries to have ovarian torsion or cyst. CBC will be obtained to assess white blood cell count, hemoglobin, platelets. BMP to assess renal function and electrolytes. hCG to rule out ectopic . Urinalysis to rule out UTI or occult blood. CBC shows slight leukocytosis 11.4. Hemoglobin stable 13.5. Rest of her lab work-up unremarkable. hCG negative. Urinalysis shows occult blood but no evidence of infection. CT of the abdomen pelvis was obtained and shows no obstruction or evidence of pyelonephritis. Findings were discussed with the patient. She will continue to follow-up with urology outpatient. She still has an appointment with Dr. Paola Arceo next week as well. Return precautions discussed. Impression: 1. Right flank pain 2. Hematuria Lab Data Attestation: I reviewed the patient's lab results. Labs: Laboratory Results - last 24 hr 02/24/23 02/24/23 20:50 20:55 WBC 11.4 H RBC 4.52 Hgb 13.5 Hct 41.9 MCV 92.7 MCH 29.9 MCHC 32.2 RDW Std Deviation 45.8 H RDW Coeff of Jeff 13.3 Plt Count 284 MPV 10.1 Immature Gran % (Auto) 0.300 Neut % (Auto) 56.3 Lymph % (Auto) 35.0 Wilkin % (Auto) 4.4 Eos % (Auto) 3.3 Baso % (Auto) 0.7 Absolute Neuts (auto) 6.4 Absolute Lymphs (auto) 3.97 Nucleated RBC % 0 Sodium 144 Potassium 3.8 Chloride 112 H Carbon Dioxide 30.0 Anion Gap 2 L BUN 20 H Creatinine 0.91 Estim Creat Clear Calc 57.26 Est GFR (MDRD) Af Amer 87 Est GFR (MDRD) Non-Af 72 BUN/Creatinine Ratio 22.0 H Glucose 102 Calcium 8.7 Serum , Qual NEGATIVE Urine Color Yellow Urine Clarity Cloudy Urine pH 6.5 Ur Specific [place] 1.015 Urine Protein 30 H Urine Glucose (UA) Normal Urine Ketones Negative Urine Occult Blood 250 H Urine Nitrite Negative Urine Bilirubin Negative Urine Urobilinogen Normal Ur Leukocyte Esterase 25 H Urine RBC > 100 SEEN Urine WBC 0-5 SEEN Ur Squamous Epith Cells 0-5 SEEN Urine Bacteria 0 SEEN Urine Mucus 0 SEEN Radiography Diagnostic Testing: Clinical Impression(s) from Imaging Studies Abdomen/Pelvis CT 02/24/23 21:20 IMPRESSION: Right renal stone. No hydronephrosis. Electronically Signed: Major Dey MD at 22:14 EDT , Discharge Plan Triage Chief Complaint: Flank Pain ED Provider: David Tejeda Dx/Rx/DC Orders Instructions: ED Kidney Stone, Passed Prescriptions: New ondansetron 4 mg tablet,disintegrating 4 mg PO Q8H PRN PRN (Reason: Nausea) Qty: 10 0RF No Action levothyroxine 88 mcg capsule 88 mcg PO MOTUWETHFRSA Rx Instructions: skip thursday tizanidine 2 mg tablet 2 mg PO QHS PRN (Reason: MUSCLE SPASMS) lorazepam 0.5 MG tablet 0.5 mg PO DAILY PRN PRN (Reason: Anxiety) fxxjrtsjyo-qcgvudzyikqeh-tczu 50-325-40 mg tablet 1 tab PO Q6H PRN (Reason: pain) Patient Comments: TAKE 1 TABLET BY MOUTH EVERY 6 HOURS NEEDED FOR HEADACHE FOR UP TO 30 DAYS. promethazine 25 mg tablet 25 mg PO TID PRN (Reason: nausea and vomiting) 7 Days Qty: 21 0RF sulfamethoxazole-trimethoprim [Bactrim DS] 800-160 mg tablet 1 tab PO BID 7 Days Qty: 14 0RF oxycodone-acetaminophen [Percocet] 5-325 mg tablet 1 tab PO Q6H PRN (Reason: pain) 3 Days Qty: 12 0RF fluconazole 150 mg tablet 150 mg PO DAILY Qty: 2 0RF Rx Instructions: Take 1 pill by mouth at start of antibiotics and 1 pill by mouth once antibiotics are finished Primary Care Provider: Jose Luis Toledo Referrals: Katiuska Salmon MD [Med Staff - Active Staff] - 3-5 Days Jose Luis Toledo DO [Primary Care Provider] - Disposition Disposition: Home, Self Care
--- NOTE | 2023-02-24 23:23 | ED.RN ---
Pt found to be in tears in her room stating that Dr. Tejeda was making her feel that her c/o pain was invalid because her kidney stone was in her bladder and was sending her home without pain medication in spite of her c/o pain. She asked to have her iv out so she could leave. This RN offered some recommendations for urology specialist and also educated her on how to acces her my chart for follow up with specialist. engine watchman was informed of pt complaints.
== END 2023-02-24 23:27 | disposition home or self-care (01) ==
PROVIDERS: Emergency Provider Student in an Organized Health Care Education/Training Program; PCP Student in an Organized Health Care Education/Training Program; Visit Provider Student in an Organized Health Care Education/Training Program
DX: R10.9 Unspecified abdominal pain (principal); E78.00 Pure hypercholesterolemia, unspecified; R31.9 Hematuria, unspecified; Z90.710 Acquired absence of both cervix and uterus; E03.9 Hypothyroidism, unspecified; Z90.6 Acquired absence of other parts of urinary tract; Z90.49 Acquired absence of other specified parts of digestive tract
CPT/HCPCS: 74176; 80048; 81001; 84703; 85025; 96374; 96375; 99283; A4216; J2405

== ENCOUNTER → 2023-05-26 | Outpatient (CLI) | payer MEDICAID, BC, SELFPAY ==
--- OUTSIDE RECORDS SUMMARY | 2023-05-26 12:36 | XMS RPT_ITS | CCD ---
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 Name Role Phone PAPI RODGERS Unavailable Unavailable REFERRED, SELF Unavailable Unavailable JOSE LUIS TOLEDO Unavailable Unavailable BILL MARIA Unavailable Unavailable BILL MARIA Unavailable Unavailable JOSE LUIS TOLEDO Unavailable Unavailable Jose Luis Toledo DO Primary Care Provider Blade Mejias MD Unavailable Jose Luis Toledo DO Primary Care Provider Blade Mejias MD Unavailable Jose Luis Toledo DO Primary Care Provider Jose Luis Toledo Primary Care Provider Jose Luis Toledo Primary Care Unavailable eDon Camacho Attending Unavailable PROVIDER, UNKNOWN Referring Unavailable No, PCP Primary Care Unavailable PROVIDER, UNKNOWN Referring Unavailable Deon Camacho Attending Unavailable Jose Luis Toledo DO Primary Care Provider Blade Mejias MD Unavailable SHAINA CROWLEY Attending Unavailable JOSE LUIS TOLEDO Referring Unavailable JOSE LUIS TOLEDO Primary Care Unavailable BRANDI RASMUSSEN Referring Unavailable JOSE LUIS TOLEDO Primary Care Unavailable XI BARAHONA Admitting Unavailable XI BARAHONA Attending Unavailable JOSE LUIS TOLEDO Primary Care Unavailable JOSE LUIS TOLEDO Primary Care Unavailable ZUNILDA IRVING Attending Unavailable JOSE LUIS TOLEDO Primary Care Unavailable ROXY FLORES Attending Unavailable TOLEDO, JOSE LUIS Primary Care Unavailable TOLEDO, JOSE LUIS Primary Care Unavailable TOLEDO, JOSE LUIS Referring Unavailable TOLEDO, JOSE LUIS Primary Care Unavailable KUNAL QUINTEROSON Referring Unavailable TOLEDO, JOSE LUIS Primary Care Unavailable TOLEDO, JOSE LUIS Attending Unavailable TOLEDO, JOSE LUIS Primary Care Unavailable TOLEDO, JOSE LUIS Attending Unavailable TOLEDO, JOSE LUIS Primary Care Unavailable SELF Referring Unavailable TOLEDO, JOSE LUIS Referring Unavailable TOLEDO, JOSE LUIS Primary Care Unavailable TOLEDO, JOSE LUIS Referring Unavailable TOLEDO, JOSE LUIS Primary Care Unavailable TOLEDO, JOSE LUIS Primary Care Unavailable QUINTEROSCORTEZBRANDI Attending Unavailable ROXY FLORES Attending Unavailable TOLEDO, JOSE LUIS Primary Care Unavailable TOLEDO, JOSE LUIS Primary Care Unavailable TOLEDO, JOSE LUIS Primary Care Unavailable SHAINA CROWLEY Referring Unavailable TOLEDO, JOSE LUIS Primary Care Unavailable TOLEDO, JOSE LUIS Attending Unavailable TOLEDO, JOSE LUIS Primary Care Unavailable TOLEDO, JOSE LUIS Attending Unavailable TOLEDO, JOSE LUIS Primary Care Unavailable TOLEDO, JOSE LUIS Referring Unavailable ROXY FLORES Referring Unavailable TOLEDO, JOSE LUIS Primary Care Unavailable TOLEDO, JOSE LUIS Primary Care Unavailable SHOBHA PEREZ Attending Unavailable TOLEDO, JOSE LUIS Primary Care Unavailable XI BARAHONA Referring Unavailable TOLEDO, JOSE LUIS Referring Unavailable TOLEDO, JOSE LUIS Primary Care Unavailable TOLEDO, JOSE LUIS Referring Unavailable TOLEDO, JOSE LUIS Primary Care Unavailable TOLEDO, JOSE LUIS Primary Care Unavailable ZUNILDA IRVING Referring Unavailable TOLEDO, JOSE LUIS Primary Care Unavailable TOLEDO, JOSE LUIS Attending Unavailable TOLEDO, JOSE LUIS Primary Care Unavailable SHAINA CROWLEY Referring Unavailable TOLEDO, JOSE LUIS Primary Care Unavailable KAY CHONG Referring Unavailable Allergies Allergy Classification Reported Allergen(s) Allergy Type Date of Onset Reaction(s) Facility (20 sources) Penicillins; Translations: [PENICILLINS] Propensity to adverse reactions to drug (disorder) 8 Swelling, Anaphylaxis [facility] Repository (20 sources) metFORMIN; Translations: [METFORMIN] Drug Allergy 7 GI Upset [facility] Work Phone: (20 sources) Naproxen; Translations: [NAPROXEN SODIUM] Drug Allergy 8 Vomiting [facility] Work Phone: (2 sources) Acetaminophen / HYDROcodone Drug Allergy 2 Nausea And Vomiting [facility] (7 sources) Adhesive Tape Propensity to adverse reactions to drug 1 Rash [facility] (20 sources) Menthol; Translations: [MENTHOL] Drug Allergy 3 Rash [facility] (6 sources) Morphine; Translations: [MORPHINE (PF)] Drug Allergy 3 Other: See Comments [facility] (6 sources) Prochlorperazine; Translations: [PROCHLORPERAZINE ] Drug Allergy 3 Mental Status Change [facility] (2 sources) Adhesive agent; Translations: [ADHESIVE] Propensity to adverse reactions to drug (disorder) 1 [facility] Repository Medications Current Medications Medication Drug Class(es) Dates Sig (Normalized) Sig (Original) acetaminophen 325 mg / butalbital 50 mg / caffeine 40 mg oral tablet (3 sources) Barbiturate, Central Nervous System Stimulant, Methylxanthine Start: 01-08-2023 End: 02-07-2023 take 1 tablet by mouth every six hours as needed for headache acetaminophen 325 mg-caffeine 40 mg-butalbital 50 mg (FIORICET) per tablet Indications: Other migraine without status migrainosus, not intractable Take 1 tablet by mouth every 6 hours as needed for headache for up to 30 days. 20 tablet 0 01/08/2023 02/07/2023 Active Completed/Discontinued Medications Medication Drug Class(es) Dates Sig (Normalized) Sig (Original) acetaminophen 500 mg oral tablet (1 source) Start: 01-27-2022 End: 01-27-2022 acetaminophen (TYLENOL) tablet 1,000 mg Problems Active Problems Problem Classification Problem Date Documented Da te Episodic/Chronic Acute bronchitis (1 source) Viral bronchitis; Translations: [Acute bronchitis due to other specified organisms] Episodic Adjustment disorders (1 source) Stress; Translations: [Reaction to severe stress, unspecified] Chronic Allergic reactions (4 sources) Allergy status to penicillin; Translations: [Other nonmedicinal substance allergy status] Onset: 01-27-2022 Episodic Anxiety disorders (20 sources) Anxiety disorder; Translations: [Anxiety disorder, unspecified] Onset: 10-21-2016 Chronic Calculus of urinary tract (20 sources) History of calculus of kidney; Translations: [Personal history of urinary calculi] Onset: 05-12-2022 Episodic Complications of surgical procedures or medical care (20 sources) Postsurgical menopause; Translations: [Asymptomatic postprocedural ovarian failure] Onset: 02-05-2022 Chronic Disorders of lipid metabolism (20 sources) Dyslipidemia; Translations: [Hyperlipidemia, unspecified] Onset: 01-14-2021 Chronic Esophageal disorders (2 sources) Gastro-esophageal reflux disease without esophagitis; Translations: [Gastro-esophageal reflux disease without esophagitis] Onset: 01-27-2022 Chronic Gastroduodenal ulcer (except hemorrhage) (20 sources) Peptic ulcer; Translations: [Peptic ulcer, site unspecified, unspecified as acute or chronic, without hemorrhage or perforation] Onset: 08-07-2014 08-07-2014 Chronic Gastrointestinal hemorrhage (1 source) Blood-tinged feces; Translations: [Melena] Episodic Genitourinary symptoms and ill-defined conditions (17 sources) [place] hematuria; Translations: [Gross hematuria] Onset: 02-09-2023 02-02-2023 Episodic Headache; including migraine (20 sources) Migraine; Translations: [Migraine without aura, not intractable, without status migrainosus] Onset: 10-21-2016 10-21-2016 Chronic Menopausal disorders (20 sources) Premature menopause; Translations: [Asymptomatic premature menopause] Onset: 02-05-2022 Chronic Nutritional deficiencies (20 sources) Vitamin D deficiency; Translations: [Vitamin D deficiency, unspecified] Onset: 01-14-2021 Chronic Other and ill-defined cerebrovascular disease (20 sources) Intracranial aneurysm; Translations: [Cerebral aneurysm, nonruptured] Onset: 10-21-2016 10-21-2016 Chronic Other connective tissue disease (1 source) Pain of bilateral hands; Translations: [Pain in right hand] Episodic Other connective tissue disease (1 source) Fibromyalgia; Translations: [Fibromyalgia] Onset: 01-27-2022 Episodic Other connective tissue disease (1 source) Inflammatory neuropathy ; Translations: [Neuralgia and neuritis, unspecified] Episodic Other endocrine disorders (20 sources) Polycystic ovary syndrome; Translations: [Polycystic ovarian syndrome] Onset: 06-19-2010 06-19-2010 Chronic Other endocrine disorders (20 sources) Empty sella syndrome; Translations: [Other disorders of pituitary gland] Onset: 09-08-2018 09-08-2018 Chronic Other female genital disorders (1 source) Vaginal lesion; Translations: [Other specified noninflammatory disorders of vagina] Episodic Other gastrointestinal disorders (20 sources) Irritable bowel syndrome; Translations: [Irritable bowel syndrome without diarrhea] Onset: 08-07-2014 08-07-2014 Chronic Other gastrointestinal disorders (2 sources) Pelvic mass; Translations: [Intra-abdominal and pelvic swelling, mass and lump, unspecified site] Onset: 01-27-2022 Episodic Other gastrointestinal disorders (2 sources) Intra-abdominal and pelvic swelling, mass and lump, unspecified site; Translations: [Intra-abd and pelvic swelling, mass and lump, unsp site] Onset: 01-27-2022 Episodic Other hematologic conditions (1 source) Personal history of diseases of the blood and blood-forming organs and certain disorders involving the immune mechanism; Translations: [H/O protein S deficiency] Onset: 03-02-2023 Episodic Other inflammatory condition of skin (20 sources) Rosacea; Translations: [Rosacea, unspecified] Onset: 06-19-2010 06-19-2010 Chronic Other lower respiratory disease (1 source) Cough; Translations: [Acute cough] Episodic Other nervous system disorders (20 sources) Attention and concentration deficit; Translations: [Impaired concentration] Onset: 05-12-2022 Chronic Other nervous system disorders (1 source) Other chronic pain; Translations: [Chronic midline low back pain without sciatica] Onset: 05-12-2022 Chronic Other nervous system disorders (1 source) Postoperative pain ; Translations: [Other acute postprocedural pain] Episodic Other non-traumatic joint disorders (3 sources) Hip pain; Translations: [Pain in unspecified hip] Episodic Other nutritional; endocrine; and metabolic disorders (20 sources) Obese class II; Translations: [Obesity, unspecified] Onset: 06-30-2022 Chronic Other nutritional; endocrine; and metabolic disorders (20 sources) Metabolic syndrome X; Translations: [Metabolic syndrome] Onset: 01-15-2011 01-15-2011 Chronic Other nutritional; endocrine; and metabolic disorders (20 sources) Body mass index 40+ - severely obese; Translations: [Morbid (severe) obesity due to excess calories] Onset: 01-04-2017 01-04-2017 Chronic Other nutritional; endocrine; and metabolic disorders (1 source) Morbid (severe) obesity due to excess calories; Translations: [Obesity, Class III, BMI 40-49.9 (morbid obesity) ([facility])] Onset: 01-04-2017 Chronic Other upper respiratory disease (2 sources) Hoarse; Translations: [Dysphonia] Episodic Other upper respiratory infections (1 source) Sore throat symptom; Translations: [Acute pharyngitis, unspecified] Episodic Ovarian cyst (2 sources) Unspecified ovarian cyst, left side; Translations: [Unspecified ovarian cyst, left side] Onset: 01-27-2022 Episodic Residual codes; unclassified (20 sources) Obstructive sleep apnea syndrome; Translations: [Obstructive sleep apnea (adult) (pediatric)] Onset: 08-07-2014 08-07-2014 Chronic Residual codes; unclassified (2 sources) Obstructive sleep apnea (adult) (pediatric); Translations: [Obstructive sleep apnea (adult) (pediatric)] Onset: 01-27-2022 Chronic Residual codes; unclassified (2 sources) Dependence on other enabling machines and devices; Translations: [Dependence on other enabling machines and devices] Onset: 01-27-2022 Chronic Residual codes; unclassified (1 source) Generalized aches and pains; Translations: [Pain, unspecified] Episodic Residual codes; unclassified (1 source) Procedure not done; Translations: [Procedure and treatment not carried out, unspecified reason] 02-12-2023 Episodic Spondylosis; intervertebral disc disorders; other back problems (20 sources) Disorder of lumbar disc; Translations: [Unspecified thoracic, thoracolumbar and lumbosacral intervertebral disc disorder] Onset: 05-13-2010 05-13-2010 Chronic Thyroid disorders (20 sources) Acquired hypothyroidism; Translations: [Hypothyroidism, unspecified] Onset: 05-13-2010 Chronic Unclassified (1 source) Dysmetabolic syndrome; Translations: [Dysmetabolic syndrome] Onset: 01-15-2011 Unclassified (1 source) Chronic midline low back pain without sciatica; Translations: [Chronic midline low back pain without sciatica] Onset: 05-12-2022 Urinary tract infections (6 sources) Acute cystitis; Translations: [Acute cystitis without hematuria] Onset: 03-02-2023 03-24-2023 Episodic Viral infection (1 source) Disease caused by 2019-nCoV; Translations: [COVID-19] Episodic Past or Other Problems Problem Classification Problem Date Documented Date Episodic/Chronic Abdominal pain (20 sources) Abdominal pain; Translations: [Unspecified abdominal pain] Onset: 06-28-2012 06-28-2012 Episodic Chronic obstructive pulmonary disease and bronchiectasis (3 sources) Bronchitis; Translations: [Bronchitis, not specified as acute or chronic] Onset: 08-14-2022 Episodic Coagulation and hemorrhagic disorders (20 sources) Blood coagulation disorder; Translations: [Hemorrhagic condition, unspecified] Onset: 08-07-2014 08-07-2014 Episodic Diabetes mellitus without complication (20 sources) Impaired fasting glycemia; Translations: [Impaired fasting glucose] Onset: 01-14-2021 Episodic Diseases of mouth; excluding dental (20 sources) Oral lesion; Translations: [Other lesions of oral mucosa] Onset: 10-21-2016 10-21-2016 Episodic Malaise and fatigue (20 sources) Fatigue; Translations: [Other fatigue] Onset: 10-21-2016 10-21-2016 Episodic Nutritional deficiencies (20 sources) Magnesium deficiency; Translations: [Magnesium deficiency] Onset: 06-30-2022 Episodic Other and unspecified benign neoplasm (20 sources) Dermatofibroma; Translations: [Other benign neoplasm of skin, unspecified] Onset: 06-30-2022 Episodic Other connective tissue disease (20 sources) Muscle pain; Translations: [Myalgia, unspecified site] Onset: 10-21-2016 10-21-2016 Episodic Other connective tissue disease (20 sources) Fibromyalgia; Translations: [Fibromyalgia] Onset: 01-04-2017 01-04-2017 Episodic Other female genital disorders (20 sources) Cyst of uterine adnexa; Translations: [Unspecified condition associated with female genital organs and menstrual cycle] Onset: 05-12-2022 Episodic Other female genital disorders (1 source) Other specified noninflammatory disorders of vagina; Translations: [Vaginal lesion] Onset: 08-14-2022 Episodic Other lower respiratory disease (3 sources) Persistent cough; Translations: [Persistent cough] Onset: 08-14-2022 Episodic Other screening for suspected conditions (not mental disorders or infectious disease) (20 sources) Increased cortisol level; Translations: [Other specified abnormal findings of blood chemistry] Onset: 09-08-2018 09-08-2018 Episodic Other skin disorders (20 sources) Loss of hair; Translations: [Nonscarring hair loss, unspecified] Onset: 05-12-2022 Episodic Other skin disorders (1 source) Nonscarring hair loss, unspecified; Translations: [Hair loss] Onset: 05-12-2022 Episodic Other upper respiratory disease (1 source) Dysphonia; Translations: [Hoarse] Onset: 08-14-2022 Episodic Spondylosis; intervertebral disc disorders; other back problems (20 sources) Acute low back pain; Translations: [Acute midline low back pain without sciatica] Onset: 05-12-2022 Episodic Results Test Name Value Interpretation Reference Range Facil ity Vital Signs Date Time Vital Sign Value Performing Clinician Shimon andrews 03-24-2023 08:03-0500 Body height 152.4 cm Zunilda Irving APRN.SOCIOLOGY PROFESSOR Work Phone: [facility] 03-24-2023 08:03-0500 Body weight 88 kg Zunilda Irving APRN.SOCIOLOGY PROFESSOR Work Phone: [facility] 03-24-2023 08:03-0500 Diastolic blood pressure 83 mm[Hg] Zunilda Irving APRN.SOCIOLOGY PROFESSOR Work Phone: [facility] 03-24-2023 08:03-0500 Systolic blood pressure 121 mm[Hg] Zunilda Juan CAT.SOCIOLOGY PROFESSOR Work Phone: [facility] 03-03-2023 13:02-0500 Body temperature 97.9 [degF] Jose Luis Toledo DO Work Phone: [facility] 03-03-2023 13:02-0500 Body weight 88.18 kg Jose Luis Toledo DO Work Phone: [facility] 03-03-2023 13:02-0500 Diastolic blood pressure 72 mm[Hg] Jose Luis Toledo DO Work Phone: [facility] 03-03-2023 13:02-0500 Heart rate 76 /min Jose Luis Toledo DO Work Phone: [facility] 03-03-2023 13:02-0500 Respiratory rate 16 /min Jose Lius Toledo DO Work Phone: [facility] 03-03-2023 13:02-0500 SaO2% (BldA) [Mass fraction] 99 % Jose Luis Toledo DO Work Phone: [facility] 03-03-2023 13:02-0500 Systolic blood pressure 118 mm[Hg] Jose Luis Toledo DO Work Phone: [facility] 02-09-2023 11:12-0400 Body height 152.4 cm Shaina Piccari OPERATING ROOM MANAGER.SOCIOLOGY PROFESSOR Work Phone: [facility] 02-09-2023 11:12-0400 Body weight 87.09 kg Shaina Piccari OPERATING ROOM MANAGER.SOCIOLOGY PROFESSOR Work Phone: [facility] 02-09-2023 11:12-0400 Heart rate 68 /min Shaina Piccari OPERATING ROOM MANAGER.SOCIOLOGY PROFESSOR Work Phone: [facility] 02-02-2023 14:46-0400 Body weight 88.09 kg 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 OPERATING ROOM MANAGER.SOCIOLOGY PROFESSOR Work Phone: [facility] 02-02-2023 14:46-0400 Diastolic blood pressure 66 mm[Hg] 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 OPERATING ROOM MANAGER.SOCIOLOGY PROFESSOR Work Phone: [facility] 02-02-2023 14:46-0400 Heart rate 68 /min 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 OPERATING ROOM MANAGER.SOCIOLOGY PROFESSOR Work Phone: [facility] 02-02-2023 14:46-0400 Respiratory rate 14 /min 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 OPERATING ROOM MANAGER.SOCIOLOGY PROFESSOR Work Phone: [facility] 02-02-2023 14:46-0400 Systolic blood pressure 120 mm[Hg] 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 OPERATING ROOM MANAGER.SOCIOLOGY PROFESSOR Work Phone: [facility] 12-02-2022 15:33-0400 Body temperature 97.81 [degF] Jose Luis Toledo DO Work Phone: [facility] 12-02-2022 15:33-0400 Body weight 85.73 kg Jose Luis Toledo DO Work Phone: [facility] 12-02-2022 15:33-0400 Diastolic blood pressure 70 mm[Hg] Jose Luis Toledo DO Work Phone: [facility] 12-02-2022 15:33-0400 Heart rate 68 /min Jose Luis Toledo DO Work Phone: [facility] 12-02-2022 15:33-0400 Respiratory rate 12 /min Jose Luis Toledo DO Work Phone: [facility] 12-02-2022 15:33-0400 Systolic blood pressure 124 mm[Hg] Jose Luis Toledo DO Work Phone: [facility] 08-14-2022 10:42-0400 Body temperature 97.59 [degF] Roxy Irvin OPERATING ROOM MANAGER.SOCIOLOGY PROFESSOR Work Phone: [facility] 08-14-2022 10:42-0400 Body weight 87.64 kg Roxy Irvin OPERATING ROOM MANAGER.SOCIOLOGY PROFESSOR Work Phone: [facility] 08-14-2022 10:42-0400 Diastolic blood pressure 82 mm[Hg] Roxy Irvin OPERATING ROOM MANAGER.SOCIOLOGY PROFESSOR Work Phone: [facility] 08-14-2022 10:42-0400 Heart rate 78 /min Roxy Irvin OPERATING ROOM MANAGER.SOCIOLOGY PROFESSOR Work Phone: [facility] 08-14-2022 10:42-0400 Respiratory rate 16 /min Roxy Irvin OPERATING ROOM MANAGER.SOCIOLOGY PROFESSOR Work Phone: [facility] 08-14-2022 10:42-0400 SaO2% (BldA) [Mass fraction] 99 % Roxy Irvin OPERATING ROOM MANAGER.SOCIOLOGY PROFESSOR Work Phone: [facility] 08-14-2022 10:42-0400 Systolic blood pressure 124 mm[Hg] Roxy Irvin OPERATING ROOM MANAGER.SOCIOLOGY PROFESSOR Work Phone: [facility] 08-07-2022 17:02-0400 Body temperature 100 [degF] Kay Chong OPERATING ROOM MANAGER.SOCIOLOGY PROFESSOR Work Phone: [facility] 08-07-2022 17:02-0400 Body weight 88.45 kg Kay Castillo OPERATING ROOM MANAGER.SOCIOLOGY PROFESSOR Work Phone: [facility] 08-07-2022 17:02-0400 Diastolic blood pressure 86 mm[Hg] Kay Castillo OPERATING ROOM MANAGER.SOCIOLOGY PROFESSOR Work Phone: [facility] 08-07-2022 17:02-0400 Heart rate 72 /min Kay Castillo OPERATING ROOM MANAGER.SOCIOLOGY PROFESSOR Work Phone: [facility] 08-07-2022 17:02-0400 Respiratory rate 20 /min Kay Castillo OPERATING ROOM MANAGER.SOCIOLOGY PROFESSOR Work Phone: [facility] 08-07-2022 17:02-0400 Systolic blood pressure 126 mm[Hg] Kay Castillo OPERATING ROOM MANAGER.SOCIOLOGY PROFESSOR Work Phone: [facility] 07-31-2022 09:21-0400 Body weight 89 kg Roxy Irvin OPERATING ROOM MANAGER.SOCIOLOGY PROFESSOR Work Phone: [facility] 07-31-2022 09:21-0400 Diastolic blood pressure 78 mm[Hg] Roxy Ivrin OPERATING ROOM MANAGER.SOCIOLOGY PROFESSOR Work Phone: [facility] 07-31-2022 09:21-0400 Heart rate 70 /min Roxy Irvin OPERATING ROOM MANAGER.SOCIOLOGY PROFESSOR Work Phone: [facility] 07-31-2022 09:21-0400 Respiratory rate 16 /min Roxy Irvin OPERATING ROOM MANAGER.SOCIOLOGY PROFESSOR Work Phone: [facility] 07-31-2022 09:21-0400 SaO2% (BldA) [Mass fraction] 95 % Roxy Irvin OPERATING ROOM MANAGER.SOCIOLOGY PROFESSOR Work Phone: [facility] 07-31-2022 09:21-0400 Systolic blood pressure 116 mm[Hg] Roxy Irvin OPERATING ROOM MANAGER.SOCIOLOGY PROFESSOR Work Phone: [facility] 06-30-2022 08:35-0500 Body temperature 97.3 [degF] Jose Luis Toledo DO Work Phone: [facility] 06-30-2022 08:35-0500 Body weight 88 kg Jose Luis Toledo DO Work Phone: [facility] 06-30-2022 08:35-0500 Diastolic blood pressure 80 mm[Hg] Jose Luis Toledo DO Work Phone: [facility] 06-30-2022 08:35-0500 Heart rate 80 /min Jose Luis Toledo DO Work Phone: [facility] 06-30-2022 08:35-0500 Respiratory rate 16 /min Jose Luis Toledo DO Work Phone: [facility] 06-30-2022 08:35-0500 Systolic blood pressure 120 mm[Hg] Jose Luis Toledo DO Work Phone: [facility] 05-12-2022 10:07-0500 Body temperature 97 [degF] Jose Luis Toledo DO Work Phone: [facility] 05-12-2022 10:07-0500 Body weight 88.91 kg Jose Luis Toledo DO Work Phone: [facility] 05-12-2022 10:07-0500 Diastolic blood pressure 80 mm[Hg] Jose Luis Toledo DO Work Phone: [facility] 05-12-2022 10:07-0500 Heart rate 64 /min Jose Luis Toledo DO Work Phone: [facility] 05-12-2022 10:07-0500 Respiratory rate 16 /min Jose Luis Toledo DO Work Phone: [facility] 05-12-2022 10:07-0500 Systolic blood pressure 120 mm[Hg] Jose Luis Toledo DO Work Phone: [facility] 02-27-2022 11:58-0400 Body temperature 98.01 [degF] Roxy Flores APRN.SOCIOLOGY PROFESSOR Work Phone: [facility] 02-27-2022 11:58-0400 Body weight 86.64 kg Roxy Flores APRN.SOCIOLOGY PROFESSOR Work Phone: [facility] 02-27-2022 11:58-0400 Diastolic blood pressure 84 mm[Hg] Roxy Irvin OPERATING ROOM MANAGER.SOCIOLOGY PROFESSOR Work Phone: [facility] 02-27-2022 11:58-0400 Heart rate 77 /min Roxy Irvin OPERATING ROOM MANAGER.SOCIOLOGY PROFESSOR Work Phone: [facility] 02-27-2022 11:58-0400 Respiratory rate 16 /min Roxy Irvin OPERATING ROOM MANAGER.SOCIOLOGY PROFESSOR Work Phone: [facility] 02-27-2022 11:58-0400 SaO2% (BldA) [Mass fraction] 100 % Roxy Irvin OPERATING ROOM MANAGER.SOCIOLOGY PROFESSOR Work Phone: [facility] 02-27-2022 11:58-0400 Systolic blood pressure 128 mm[Hg] Roxy Irvin OPERATING ROOM MANAGER.SOCIOLOGY PROFESSOR Work Phone: [facility] 02-05-2022 15:10-0400 Body weight 87.09 kg Jose Luis Toledo DO Work Phone: [facility] 02-05-2022 15:10-0400 Diastolic blood pressure 80 mm[Hg] Jose Luis Toledo DO Work Phone: [facility] 02-05-2022 15:10-0400 Heart rate 82 /min Jose Luis Toledo DO Work Phone: [facility] 02-05-2022 15:10-0400 Respiratory rate 16 /min Jose Luis Toledo DO Work Phone: [facility] 02-05-2022 15:10-0400 Systolic blood pressure 126 mm[Hg] Jose Luis Toledo DO Work Phone: [facility] 01-27-2022 16:00-0400 Diastolic blood pressure 74 mm[Hg] Deon Camacho MD Work Phone: [facility] 01-27-2022 16:00-0400 Heart rate 72 /min Deon Camacho MD Work Phone: [facility] 01-27-2022 16:00-0400 Respiratory rate 16 /min Deon Camacho MD Work Phone: [facility] 01-27-2022 16:00-0400 SaO2% (BldA) [Mass fraction] 97 % Deon Camacho MD Work Phone: [facility] 01-27-2022 16:00-0400 Systolic blood pressure 124 mm[Hg] Deon Camacho MD Work Phone: [facility] 01-27-2022 14:12-0400 Body temperature 96.8 [degF] Deon Camacho MD Work Phone: [facility] 01-27-2022 10:55-0400 Body height 152.4 cm Deon Camacho MD Work Phone: [facility] 01-27-2022 10:55-0400 Body mass index (BMI) [Ratio] 36.72 kg/m2 Deon Camacho MD Work Phone: [facility] 01-27-2022 10:55-0400 Body weight 85.28 kg Deon Camacho MD Work Phone: [facility] 01-22-2022 09:24-0400 Body height 152.4 cm Deon Camacho MD Work Phone: [facility] 01-22-2022 09:24-0400 Body mass index (BMI) [Ratio] 36.72 kg/m2 Deon Camacho MD Work Phone: [facility] 01-22-2022 09:24-0400 Body weight 85.28 kg Deon Camacho MD Work Phone: [facility] 01-16-2022 11:35-0400 Body weight 87.73 kg Roxy Irvin OPERATING ROOM MANAGER.SOCIOLOGY PROFESSOR Work Phone: [facility] 01-16-2022 11:35-0400 Diastolic blood pressure 84 mm[Hg] Roxy Irvin OPERATING ROOM MANAGER.SOCIOLOGY PROFESSOR Work Phone: [facility] 01-16-2022 11:35-0400 Heart rate 86 /min Royx Irvin OPERATING ROOM MANAGER.SOCIOLOGY PROFESSOR Work Phone: [facility] 01-16-2022 11:35-0400 Respiratory rate 16 /min Roxy Irvin OPERATING ROOM MANAGER.SOCIOLOGY PROFESSOR Work Phone: [facility] 01-16-2022 11:35-0400 SaO2% (BldA) [Mass fraction] 100 % Roxy Irvin OPERATING ROOM MANAGER.SOCIOLOGY PROFESSOR Work Phone: [facility] 01-16-2022 11:35-0400 Systolic blood pressure 122 mm[Hg] Roxy Irvin OPERATING ROOM MANAGER.SOCIOLOGY PROFESSOR Work Phone: [facility] 11-04-2021 13:08-0400 Body weight 88.63 kg Brandi Rasmussen OPERATING ROOM MANAGER.SOCIOLOGY PROFESSOR Work Phone: [facility] 10-03-2021 11:37-0400 Body weight 90.45 kg Roxy Irvin OPERATING ROOM MANAGER.SOCIOLOGY PROFESSOR Work Phone: [facility] 10-03-2021 11:37-0400 Diastolic blood pressure 86 mm[Hg] Roxy Irvin OPERATING ROOM MANAGER.SOCIOLOGY PROFESSOR Work Phone: [facility] 10-03-2021 11:37-0400 Heart rate 74 /min Roxy Irvin OPERATING ROOM MANAGER.SOCIOLOGY PROFESSOR Work Phone: [facility] 10-03-2021 11:37-0400 Respiratory rate 16 /min Roxy Irvin OPERATING ROOM MANAGER.SOCIOLOGY PROFESSOR Work Phone: [facility] 10-03-2021 11:37-0400 SaO2% (BldA) [Mass fraction] 100 % Roxy Irvin OPERATING ROOM MANAGER.SOCIOLOGY PROFESSOR Work Phone: [facility] 10-03-2021 11:37-0400 Systolic blood pressure 122 mm[Hg] Roxy Irvin OPERATING ROOM MANAGER.SOCIOLOGY PROFESSOR Work Phone: [facility] 08-12-2021 09:05-0400 Body weight 92.08 kg Roxy Irvin OPERATING ROOM MANAGER.SOCIOLOGY PROFESSOR Work Phone: [facility] 08-12-2021 09:05-0400 Diastolic blood pressure 82 mm[Hg] Roxy Irvin OPERATING ROOM MANAGER.SOCIOLOGY PROFESSOR Work Phone: [facility] 08-12-2021 09:05-0400 Heart rate 80 /min Roxy Dominguezutzman OPERATING ROOM MANAGER.SOCIOLOGY PROFESSOR Work Phone: [facility] 08-12-2021 09:05-0400 Respiratory rate 16 /min Roxy Flores OPERATING ROOM MANAGER.SOCIOLOGY PROFESSOR Work Phone: [facility] 08-12-2021 09:05-0400 Systolic blood pressure 124 mm[Hg] Roxy Echavarriaman OPERATING ROOM MANAGER.SOCIOLOGY PROFESSOR Work Phone: [facility] Encounters Encounter Date Encounter Type Care Provider Facility Start: 04-06-2023 End: 04-06-2023 ambulatory JOSE LUIS TOLEDO Facility:[facility] Start: 03-30-2023 Telephone encounter Zunilda pink OPERATING ROOM MANAGER.SOCIOLOGY PROFESSOR Work Phone: Urology Start: 03-26-2023 Telephone encounter Zunilda pink OPERATING ROOM MANAGER.SOCIOLOGY PROFESSOR Work Phone: Urology Procedures Date Procedure Procedure Detail Performing Clinician Start: 03-24-2023 Urnls dip stick/tablet rgnt auto w/o microscopy Zunilda Irving OPERATING ROOM MANAGER.SOCIOLOGY PROFESSOR Work Phone: Start: 03-11-2023 Radiologic exam abdomen 1 view Xi Barahona MD Work Phone: Start: 02-16-2023 Us retroperitoneal real time w/image complete Shaina Crowley OPERATING ROOM MANAGER.SOCIOLOGY PROFESSOR Work Phone: Start: 02-16-2023 Radiologic exam abdomen 1 view Shaina Crowley OPERATING ROOM MANAGER.SOCIOLOGY PROFESSOR Work Phone: Start: 02-09-2023 Urnls dip stick/tablet rgnt auto w/o microscopy Shaina Crowley OPERATING ROOM MANAGER.SOCIOLOGY PROFESSOR Work Phone: Start: 02-02-2023 Culture bacterial quanttative colony count urine 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 OPERATING ROOM MANAGER.SOCIOLOGY PROFESSOR Work Phone: Start: 02-02-2023 Urnls dip stick/tablet rgnt auto w/o microscopy 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 OPERATING ROOM MANAGER.SOCIOLOGY PROFESSOR Work Phone: Start: 08-07-2022 COVID WITH FLUA+B, ROUTINE Kay Chong APRN.SOCIOLOGY PROFESSOR Work Phone: Start: 08-07-2022 Radiologic exam chest 2 views Kay Chong APRN.SOCIOLOGY PROFESSOR Work Phone: Start: 08-07-2022 STREP A MOLECULAR (POC) Stoney Prieto MD Work Phone: Start: 05-19-2022 Us soft tissue head & neck real time imge docm Jose Luis Mccormickon DO Work Phone: Start: 05-19-2022 End: 05-19-2022 Radex spine lumbosacral 2/3 views Jose Luis Mccormickon DO Work Phone: Start: 05-19-2022 Ct abdomen & pelvis w/o contrast material Jose Luis Mccormickon DO Work Phone: Start: 03-03-2022 Ct abdomen & pelvis w/contrast material Roxy Flores APRN.SOCIOLOGY PROFESSOR Work Phone: Start: 01-27-2022 OPERATIVE REPORT Physician Generic Start: 01-27-2022 HANSA STUDIO 3 Deon Caamcho MD Work Phone: Start: 01-27-2022 Ecg routine ecg w/least 12 lds w/i&r Gab Sullivan MD Work Phone: Start: 06-11-2021 Mammography Roxy Flores APRN.SOCIOLOGY PROFESSOR Work Phone: Start: 01-07-2021 Adult depression screening assessment Roxy Flores APRN.SOCIOLOGY PROFESSOR Work Phone: H/O: bilateral oophorectomy Hx of bilateral oophorectomy Roxy Flores APRN.SOCIOLOGY PROFESSOR Work Phone: Plan of Treatment Date Care Activity Detail Author Start: 06-25-2025 HPV TESTING HPV TESTING [facility] Start: 06-25-2025 PAP TESTING PAP TESTING [facility] Start: 03-03-2024 Annual PCP Team Special Effects Makeup Artist laith Disease Visit Annual PCP Team Chronic Disease Visit [facility] Start: 02-03-2024 Annual PCP Team Special Effects Makeup Artist laith Disease Visit Annual PCP Team Chronic Disease Visit [facility] Start: 12-03-2023 ANNUAL PCP TEAM TRANSMISSION REBUILDER LAITH DISEASE VISIT ANNUAL PCP TEAM CHRONIC DISEASE VISIT [facility] Start: 10-25-2023 Influenza vaccination Influenza Vacc ine (#1) [facility] Immunizations Immunization Date Immunization Notes Care Provider Navarro andersen 03-15-2018 influenza virus vacc ine, unspecified formulation Jose Luis Toledo DO Work Phone: [facility] 02-02-2015 influenza, injectabl e, quadrivalent, contains preservative Roxy Irvin OPERATING ROOM MANAGER.SOCIOLOGY PROFESSOR Work Phone: [facility] Payers Date Payer Category Payer Unknown 2022 Unknown [id number] 2022 Medicaid [id number] 2019 Medicaid [employer] [id number] 2019-Present [phone] [address] [place] [address] Medicaid [id number] 2019 Medicaid [id number] 2019 Unknown [id number] 1980 Unknown [id number] 1980 Unknown [id number] Social History Date Type Detail Facility Start: 01-15-2011 End: 01-16-2022 Tobacco smoking status NHIS Never smoked tobacco [facility] Start: 08-12-2021 End: 03-24-2023 Alcohol intake Current drinker of alcohol (finding) [facility] Start: 11-20-2016 History SDOH Alcohol Comment twice a year- socially [facility] Start: 1980 Sex Assigned At Not on file [facility] Start: 08-02-2021 End: 02-27-2022 Exposure to SARS-CoV-2 (event) Not sure [facility] Start: 11-04-2021 End: 06-29-2022 History SDOH Alcohol Frequency 2 [facility] Start: 11-04-2021 End: 06-29-2022 History SDOH Alcohol Std Drinks 1 [facility] Start: 11-04-2021 End: 06-29-2022 History SDOH Social Connections Phone 4 [facility] Start: 11-04-2021 History SDOH Social Connections Yarsani 98 [facility] Start: 11-04-2021 End: 06-29-2022 History SDOH Social Connections Living 3 [facility] Start: 01-15-2011 End: 01-16-2022 Tobacco use and exposure Smokeless tobacco non-user [facility] Work Phone: Start: 01-22-2022 History SDOH Alcohol Comment occ [facility] Work Phone: Start: 01-12-2022 End: 01-22-2022 Exposure to SARS-CoV-2 (event) Yes [facility] Work Phone: Start: 06-29-2022 History SDOH Social Connections Phone 5 [facility] Start: 06-29-2022 History SDOH Physica l Activity MPS 7 [facility] Start: 06-28-2022 End: 11-10-20[address] [facility] Start: 06-28-2022 End: 11-10-2022 Social connection and isolation panel [facility] Do you belong to any clubs or organizations such as pentecostalism groups, unions, fraternal or athletic groups, or school groups? No [facility] Are you now , , , , never or living with a partner? [facility] How often to you hav e a drink containing alcohol? Monthly or less [facility] How many standard dr inks containing alcohol do you have on a typical day? 1 or 2 [facility] How often do you hav e 6 or more drinks on 1 occasion? Never [facility] How hard is it for y ou to pay for the very basics like food, housing, medical care, and heating Somewhat hard [facility] Adult Depression Scr eening Assessment 0 [facility] Work Phone: Do you feel stress - tense, restless, nervous, or anxious, or unable to sleep at night because your mind is troubled all the time - these days [OSQ] Rather much [facility] (I/We) worried wheth er (my/our) food would run out before (I/we) got money to buy more. Never true [facility] Do you feel stress - tense, restless, nervous, or anxious, or unable to sleep at night because your mind is troubled all the time - these days [OSQ] To some extent [facility] Clinical Notes 10-21-2016 to 04-06-2023 Telephone Encounter - MayankLilliBAILEE - 03/27/2023 3:06 PM ESTTelephone Encounter - Susanna Da Silva OCCA - 03/27/2023 1:38 PM Zunilda Lopez APRN.CNP - 03/24/2023 8:00 AM EST Note Date & Type Note Facility 04-06-2023 Note HNO ID: [id number] Author: Jose Luis Toledo, DO Service: ? Author Type: Physician Type: Progress Notes Filed: 04/06/2023 8:22 AM Note Text: CC: Sangeetha Redd is a 43 year old female who presents to the office for follow up HPI: Recently she was having flank pain and diagnosed with ureterolithiasis. She was seen at [facility] and also referred to urologist. She had an accompanying UTI/cystitis when diagnosed with stone. She was started on Bactrim antibiotic. The lithotripsy surgery was done on Mar [address] Barahona. she has had some urinary urgency and frequency symptoms, no hematuria or flank pain or fevers or chills, over the last few weeks. Did have an xray of abd and did have UA /culture about 2 weeks ago which were normal when she had follow up with Urologist Dr. Barahona. Hypothyroidism, had recent labs, taking levothyroxine. TSH Date Value Ref Range Status 03/23/2023 0.367 0.270 - 4.200 mIU/L Final Comment: If the patient is , TSH reference range varies by gestational period: First Trimester (weeks 9-12): 0.180-2.990 mIU/L Second Trimester: 0.110-3.980 mIU/L Third Trimester: 0.480-4.710 mIU/L Devon Lim et al. A Practical Approach for the Verifications and Determination of Site- and Trimester-Specific Reference Intervals for Thyroid Function tests in . Thyroid, 2019:29:3:412-420. Godron Cuadra et al. 2017 Guidelines of the [place] Thy[employer] Association for the Diagnosis and Management of Thyroid Disease during and the . Thyroid, 2017:27:3:315-389. Free T4 Date Value Ref Range Status 03/23/2023 1.2 0.9 - 1.7 ng/dL Final Free T3 2.6 03/23/2023 Dysmetabolic syndrome. She is frustrated with her central weight and struggling to further lose weight and get this under control. She is wanting to start on medication again to help her. Didn't tolerate topamax or metformin or wellbutrin in the past ADD, taking adderall as prescribed. Needing rx refilled. Symptoms are stable/controlled Anxiety symptoms, long standing, use of prn ativan as prescribed. PAST MEDICAL HISTORY Diagnosis Date Anesthesia states mom had issues in 2013 leading to air emboli after surgery. pt herself has had no issues. Anxiety Cerebral aneurysm 2015 just watching scanned last 2021 - Dr. Oneal Complicated migraine Endometriosis 75% improvement in abdominal pain post lap surgery Fibromyalgia Hypothyroidism IBS (irritable bowel syndrome) Insulin resistance Lactose intolerance in adult Left thyroid nodule 12/2020 repeat thyroid US 12/2021 Low HDL (under 40) Low serum progesterone worsening symptoms with progesterone rx Lumbar disc disease 05/13/2010 Migraines CADENCE (obstructive sleep apnea) Last polysomnogram in 2012, last use in 2012 Personal history of kidney stones Polycystic ovary syndrome 06/19/2010 Protein S deficiency (HCC) 2008 clotting disorder (just had APPT drawn - in [place] [facility]) PUD (peptic ulcer disease) 2010 treated medically, repeat EGD neg in 2014 Renal calculi 2009 associated to low citric acid, h/o hypercalciuria Rosacea 06/19/2010 Shingles 2010 right flank area into right upper abdomen Vitamin D deficiency PAST SURGICAL HISTORY Procedure Laterality Date APPENDECTOMY COLONOSCOPY FLX DX W/COLLJ SPEC WHEN PFRMD 08/16/2014 Colonoscopy-repeat at 50 ESOPHAGOGASTRODUODENOSCOPY TRANSORAL DIAGNOSTIC 08/16/2014 EGD LAPAROSCOPY SURG CHOLECYSTECTOMY 04/27/2003 Cholecystectomy, lap OVARIAN CYSTECTOMY Bilateral 07/30/2021 PAST SURGICAL HISTORY OF Laparoscopy for endometriosis PAST SURGICAL HISTORY OF dANDc PAST SURGICAL HISTORY OF wisdom teeth PYELOTOMY W/REMOVAL CALCULUS 04/27/2008 multiple VAGINAL HYSTERECTOMY Social History: Social History Tobacco Use Smoking status: Never Smokeless tobacco: Never Vaping Use Vaping Use: Never used Substance Use Topics Alcohol use: Yes Comment: twice a year- socially Drug use: No FAMILY HISTORY Problem Relation Age of Onset Breast Cancer Mother 39 Arthritis Mother Fibromyalgia other (irregular heartbeat) Mother Hypertension Maternal Grandmother Alzheimer's Disease Maternal Grandmother Arthritis Maternal Grandmother other (dementia) Maternal Grandmother Diabetes Brother type 1 Stroke Maternal Grandfather other (Eosinophilic esophagitis) Son other (Abdominal migraines) Son ADD/ADHD Daughter Arthritis Father Thyroid Father Hypertension Father Thyroid Cancer Sister Diabetes Brother Type 1 Current Outpatient prescriptions: tamsulosin (FLOMAX) 0.4 mg Take 1 capsule by mouth daily at bedtime for 7 days. tamsulosin (FLOMAX) 0.4 mg Take 1 capsule by mouth daily at bedtime. For kidney stones vitamin b complex (B COMPLETE) tab Take 1 tablet by mouth once daily. tiZANidine (ZANAFLEX) 4 mg tablet Take 1 tablet by mouth every 8 hours as needed (muscle spasms). Magnesium Oxide 250 mg magnesium tab Take 1 ta (more content not included)... [facility] 03-27-2023 Miscellaneous Notes Pt called back, and message was given. Lilli Talley MA Tried to return pt's call. No answer. Had to leave a message to call the office back. Left message to call back Urine cx demonstrated 10-50 k mixed . No antibiotics at this time. Patient called in and was asking about culture results. She was wanting to know if there was anything else she needs to do documented in this encounter [facility] 03-24-2023 Note HNO ID: [id number] Author: Zunilda Irving APRN.JOI Service: ? Author Type: Nurse Practitioner Type: Progress Notes Filed: 03/24/2023 8:29 AM Note Text: [facility] ESTABLISHED PATIENT OFFICE VISIT Patient presents with: Kidney Stones HISTORY OF PRESENT ILLNESS Sangeetha Redd is a 43 year old female who is here for follow up of renal stones S/p R ESWL 03/11/23 - Dr Reed ALMONTE 03/23/23 formal reading still pending images reviewed- no stone noted Passed several fragments since the procedure, still experiencing some spams on her right side and into her pelvis. Review of Systems The remainder of the ROS was reviewed and is negative. LAB Creatinine Date Value Ref Range Status 03/23/2023 0.66 0.58 - 0.96 mg/dL Final No results found for: PSA , PSASC GLUCOSE UA (POCT) (mg/dL) Date Value 03/24/2023 Negative BILIRUBIN UA (POCT) (no units) Date Value 03/24/2023 Negative KETONE UA (POCT) (mg/dL) Date Value 03/24/2023 Negative SPECIFIC GRAVITY UA (POCT) (no units) Date Value 03/24/2023 1.020 HEMOGLOBIN/BLOOD UA (POCT) (no units) Date Value 03/24/2023 Negative PH UA (POCT) (no units) Date Value 03/24/2023 6.0 PROTEIN UA (POCT) (mg/dL) Date Value 03/24/2023 Negative UROBILINOGEN UA (POCT) (E.U./dL) Date Value 03/24/2023 0.2 NITRITE UA (POCT) (no units) Date Value 03/24/2023 Negative LEUKOCYTES UA (POCT) (no units) Date Value 03/24/2023 Negative COLOR UA (POCT) (no units) Date Value 03/24/2023 Yellow CLARITY UA (POCT) (no units) Date Value 03/24/2023 Clear ] MEDICATIONS dextroamphetamine-amphetamine (ADDERALL) 10 mg tablet Take 1 tablet by mouth once daily for 30 days. (Patient taking differently: Take 10 mg by mouth every morning.) LORazepam (ATIVAN) 0.5 mg Take 1 tablet by mouth once daily as needed for up to 30 days. tamsulosin (FLOMAX) 0.4 mg Take 1 capsule by mouth daily at bedtime. For kidney stones vitamin b complex (B COMPLETE) tab Take 1 tablet by mouth once daily. tiZANidine (ZANAFLEX) 4 mg tablet Take 1 tablet by mouth every 8 hours as needed (muscle spasms). Magnesium Oxide 250 mg magnesium tab Take 1 tablet by mouth daily at bedtime. triamcinolone acetonide (KENALOG) 0.5 % cream Apply 1 application to affected area daily at bedtime. On left lower leg skin lesion at ankle. Apply sparingly. Avoid face/skin fold. levothyroxine (SYNTHROID) 88 mcg tablet Take 1 tablet by mouth once daily. and skip 1 day weekly. (Patient taking differently: Take 88 mcg by mouth daily before breakfast. and skip 1 day weekly.) carbonyl iron 15 mg chew Take 1 tablet by mouth twice daily with meals. Cholecalciferol, Vitamin D3, 125 mcg (5,000 unit) cap Take 1 capsule by mouth once daily. (Patient taking differently: Take 5,000 Units by mouth every morning.) ondansetron orally disintegrating (ZOFRAN ODT) 4 mg disintegrating tablet Take 1 tablet by mouth every 6 hours as needed for Nausea/Vomiting. tamsulosin (FLOMAX) 0.4 mg Take 1 capsule by mouth daily at bedtime for 7 days. 0 HISTORIES PAST MEDICAL HISTORY Diagnosis Date Anesthesia states mom had issues in 2013 leading to air emboli after surgery. pt herself has had no issues. Anxiety Cerebral aneurysm 2015 just watching scanned last 2021 - Dr. Oneal Complicated migraine Endometriosis 75% improvement in abdominal pain post lap surgery Fibromyalgia Hypothyroidism IBS (irritable bowel syndrome) Insulin resistance Lactose intolerance in adult Left thyroid nodule 12/2020 repeat thyroid US 12/2021 Low HDL (under 40) Low serum progesterone worsening symptoms with progesterone rx Lumbar disc disease 05/13/2010 Migraines CADENCE (obstructive sleep apnea) Last polysomnogram in 2012, last use in 2012 Personal history of kidney stones Polycystic ovary syndrome 06/19/2010 Protein S deficiency (HCC) 2007 clotting disorder (just had APPT drawn - in [facility]) PUD (peptic ulcer disease) 2009 treated medically, repeat EGD neg in 2014 Renal calculi 2009 associated to low citric acid, h/o hypercalciuria Rosacea 06/19/2010 Shingles 2010 right flank area into right upper abdomen Vitamin D deficiency PAST SURGICAL HISTORY Procedure Laterality Date APPENDECTOMY COLONOSCOPY FLX DX W/COLLJ SPEC WHEN PFRMD 08/16/2014 Colonoscopy-repeat at 50 ESOPHAGOGASTRODUODENOSCOPY TRANSORAL DIAGNOSTIC 08/16/2014 EGD LAPAROSCOPY SURG CHOLECYSTECTOMY 04/27/2003 Cholecystectomy, lap OVARIAN CYSTECTOMY Bilateral 07/30/2021 PAST SURGICAL HISTORY OF Laparoscopy for endometriosis PAST SURGICAL HISTORY OF dANDc PAST SURGICAL HISTORY OF wisdom teeth PYELOTOMY W/REMOVAL CALCULUS 04/27/2008 multiple VAGINAL HYSTERECTOMY FAMILY HISTORY Problem Relation Age of Onset Breast Cancer Mother 39 Arthritis Mother Fibromyalgia other (irregular heartbeat) Mother Hypertension Maternal Grandmother Alzheimer (more content not included)... [facility] 03-24-2023 History of Present illness Narrative Images from the original note were not included. [facility] ESTABLISHED PATIENT OFFICE VISIT Patient presents with: Kidney Stones HISTORY OF PRESENT ILLNESS Sangeetha Redd is a 43 year old female who is here for follow up of renal stones S/p R ESWL 03/11/23 - Dr Reed ALMONTE 03/23/23 formal reading still pending images reviewed- no stone noted Passed several fragments since the procedure, still experiencing some spams on her right side and into her pelvis. Review of Systems The remainder of the ROS was reviewed and is negative. LAB Creatinine Date Value Ref Range Status 03/23/2023 0.66 0.58 - 0.96 mg/dL Final No results found for: PSA , PSASC GLUCOSE UA (POCT) (mg/dL) Date Value 03/24/2023 Negative BILIRUBIN UA (POCT) (no units) Date Value 03/24/2023 Negative KETONE UA (POCT) (mg/dL) Date Value 03/24/2023 Negative SPECIFIC GRAVITY UA (POCT) (no units) Date Value 03/24/2023 1.020 HEMOGLOBIN/BLOOD UA (POCT) (no units) Date Value 03/24/2023 Negative PH UA (POCT) (no units) Date Value 03/24/2023 6.0 PROTEIN UA (POCT) (mg/dL) Date Value 03/24/2023 Negative UROBILINOGEN UA (POCT) (E.U./dL) Date Value 03/24/2023 0.2 NITRITE UA (POCT) (no units) Date Value 03/24/2023 Negative LEUKOCYTES UA (POCT) (no units) Date Value 03/24/2023 Negative COLOR UA (POCT) (no units) Date Value 03/24/2023 Yellow CLARITY UA (POCT) (no units) Date Value 03/24/2023 Clear ] MEDICATIONS dextroamphetamine-amphetamine (ADDERALL) 10 mg tablet Take 1 tablet by mouth once daily for 30 days. (Patient taking differently: Take 10 mg by mouth every morning.) LORazepam (ATIVAN) 0.5 mg Take 1 tablet by mouth once daily as needed for up to 30 days. tamsulosin (FLOMAX) 0.4 mg Take 1 capsule by mouth daily at bedtime. For kidney stones vitamin b complex (B COMPLETE) tab Take 1 tablet by mouth once daily. tiZANidine (ZANAFLEX) 4 mg tablet Take 1 tablet by mouth every 8 hours as needed (muscle spasms). Magnesium Oxide 250 mg magnesium tab Take 1 tablet by mouth daily at bedtime. triamcinolone acetonide (KENALOG) 0.5 % cream Apply 1 application to affected area daily at bedtime. On left lower leg skin lesion at ankle. Apply sparingly. Avoid face/skin fold. levothyroxine (SYNTHROID) 88 mcg tablet Take 1 tablet by mouth once daily. and skip 1 day weekly. (Patient taking differently: Take 88 mcg by mouth daily before breakfast. and skip 1 day weekly.) carbonyl iron 15 mg chew Take 1 tablet by mouth twice daily with meals. Cholecalciferol, Vitamin D3, 125 mcg (5,000 unit) cap Take 1 capsule by mouth once daily. (Patient taking differently: Take 5,000 Units by mouth every morning.) ondansetron orally disintegrating (ZOFRAN ODT) 4 mg disintegrating tablet Take 1 tablet by mouth every 6 hours as needed for Nausea/Vomiting. tamsulosin (FLOMAX) 0.4 mg Take 1 capsule by mouth daily at bedtime for 7 days. 0 HISTORIES PAST MEDICAL HISTORY Diagnosis Date Anesthesia states mom had issues in 2013 leading to air emboli after surgery. pt herself has had no issues. Anxiety Cerebral aneurysm 2015 just watching scanned last 2021 - Dr. Oneal Complicated migraine Endometriosis 75% improvement in abdominal pain post lap surgery Fibromyalgia Hypothyroidism IBS (irritable bowel syndrome) Insulin resistance Lactose intolerance in adult Left thyroid nodule 12/2020 repeat thyroid US 12/2021 Low HDL (under 40) Low serum progesterone worsening symptoms with progesterone rx Lumbar disc disease 05/13/2010 Migraines CADENCE (obstructive sleep apnea) Last polysomnogram in 2012, last use in 2012 Personal history of kidney stones Polycystic ovary syndrome 06/19/2010 Protein S deficiency (HCC) 2007 clotting disorder (just had APPT drawn - in [place] [facility]) PUD (peptic ulcer disease) 2009 treated medically, repeat EGD neg in 2014 Renal calculi 2009 associated to low citric acid, h/o hypercalciuria Rosacea 06/19/2010 Shingles 2010 right flank area into right upper abdomen Vitamin D deficiency PAST SURGICAL HISTORY Procedure Laterality Date APPENDECTOMY COLONOSCOPY FLX DX W/COLLJ SPEC WHEN PFRMD 08/16/2014 Colonoscopy-repeat at 50 ESOPHAGOGASTRODUODENOSCOPY TRANSORAL DIAGNOSTIC 08/16/2014 EGD LAPAROSCOPY SURG CHOLECYSTECTOMY 04/27/2003 Cholecystectomy, lap OVARIAN CYSTECTOMY Bilateral 07/30/2021 PAST SURGICAL HISTORY OF Laparoscopy for endometriosis PAST SURGICAL HISTORY OF d&c PAST SURGICAL HISTORY OF wisdom teeth PYELOTOMY W/REMOVAL CALCULUS 04/27/2008 multiple VAGINAL HYSTERECTOMY FAMILY HISTORY Problem Relation Age of Onset Breast Cancer Mother 39 Arthritis Mother Fibromyalgia other (irregular heartbeat) Mother Hypertension Maternal Grandmother Alzheimer's Disease Maternal Grandmother Arthritis Maternal Grandmother other (dementia) Maternal Grandmother Diabetes Brother type 1 Stroke Maternal Grandfather other (Eosinophilic esophagitis) Son other (Abdominal migraines) Son ADD/ADHD Daughter Arthritis Father Thyroid Father Hypertension Father Thyroid Cancer Sister Diabetes Brother Type 1 SOCIAL HISTORY Social History Tobacco Use Smoking status: Never Smokeless tobacco: Never Vaping Use Vaping Use: Never used Substance Use Topics Alcohol use: Yes Comment: twice a year- socially Drug use: No BP 121/83 Ht 152.4 cm (5') Wt 88 kg (194 lb) LMP 05/30/2019 (Exact Date) BMI 37.89 kg/m Physical Exam ASSESSMENT/PLAN: 1. Right ureteral stone - ICD9: 592.1, ICD10: N20.1 S/p R ESWL (Dr Barahona) 03/11/23 KUB no obvious stones noted- will await formal reading ` Plan KUB and f/u 6 months 2. Acute cystitis N30.0 Will send urine for c/s - treat if positive Zunilda Irving APRN.JOI This note was partially created using voice recognition software and is inherently subject to errors including those of syntax and sound-alike substitutions which may escape proofreading. In such instances, original meaning may be extrapolated by contextual derivation. documented in this encounter [facility] 03-23-2023 Note HNO ID: [id number] Author: Cierra Collins RT(R) Service: ? Author Type: Supervisor Pre Wave Type: Progress Notes Filed: 03/23/2023 9:37 AM Note Text: Radiology Service Progress Note PATIENT NAME: Sangeetha Redd DATE OF SERVICE: March 23, 2023 TIME: 9:22 AM PATIENT IDENTITY VERIFICATION COMPLETED USING TWO (2) IDENTIFIERS: Name and Date of confirmed by patient verbally. FALL SCREENING: Has the patient had 2 falls in the last year or 1 fall with injury or currently using an Ambulatory Assistive Device (Walker, Cane, Wheelchair, Crutches, etc.)? No PATIENT GENDER DATA: Female. status: : No status: NO. PATIENT RELEVANT IMPLANT DATA REVIEWED: Yes RADIOLOGY DEPARTMENT: General X-ray: Exam(s) Completed: Abdomen X-Ray: Abdomen PERIPHERAL IV DATA: Not applicable SIGNED BY: RT Jonathan(R) March 23, 2023 9:22 AM [facility] 03-11-2023 Note HNO ID: [id number] Author: Ayaka Corey Service: ? Author Type: ? Type: Plan of Care Filed: 03/11/2023 1:32 PM Note Text: PHARMACY BEDSIDE DELIVERY SERVICE Patient Name: Sangeetha TIERNEYN: [id number] The marked outpatient medications were Filled at: [facility] and delivered to the patient's bedside to pt Medication List CHANGE how you take these medications Cholecalciferol (Vitamin D3) 125 mcg (5,000 unit) Cap Take 1 capsule by mouth once daily. What changed: when to take this dextroamphetamine-amphetamine 10 mg tablet Commonly known as: AdderalL Take 1 tablet by mouth once daily for 30 days. What changed: when to take this levothyroxine 88 mcg tablet Commonly known as: SYNTHROID Take 1 tablet by mouth once daily. and skip 1 day weekly. What changed: when to take this * tamsulosin 0.4 mg Commonly known as: FLOMAX Take 1 capsule by mouth daily at bedtime. For kidney stones What changed: Another medication with the same name was added. Make sure you understand how and when to take each. * tamsulosin 0.4 mg Commonly known as: FLOMAX Take 1 capsule by mouth daily at bedtime for 7 days. What changed: You were already taking a medication with the same name, and this prescription was added. Make sure you understand how and when to take each. delivered * This list has 2 medication(s) that are the same as other medications prescribed for you. Read the directions carefully, and ask your doctor or other care provider to review them with you. CONTINUE taking these medications carbonyl iron 15 mg Chew Take 1 tablet by mouth twice daily with meals. LORazepam 0.5 mg Commonly known as: ATIVAN Take 1 tablet by mouth once daily as needed for up to 30 days. Magnesium Oxide 250 mg magnesium Tab Take 1 tablet by mouth daily at bedtime. ondansetron orally disintegrating 4 mg disintegrating tablet Commonly known as: ZOFRAN ODT Take 1 tablet by mouth every 6 hours as needed for Nausea/Vomiting. tiZANidine 4 mg tablet Commonly known as: ZANAFLEX Take 1 tablet by mouth every 8 hours as needed (muscle spasms). triamcinolone acetonide 0.5 % cream Commonly known as: KeNALog Apply 1 application to affected area daily at bedtime. On left lower leg skin lesion at ankle. Apply sparingly. Avoid face/skin fold. vitamin b complex Tab Commonly known as: B COMPLETE Take 1 tablet by mouth once daily. You might also be taking other medications not listed above. If you have questions about any of your other medications, talk to the person who prescribed them or your Primary Care Provider. Ayaka Corey PAGER: voradha March 11, 2023 1:19 PM [facility] 03-11-2023 Note HNO ID: [id number] Author: Bev Hayes APRN.CRNA Service: Anesthesiology Author Type: Nurse Repeat Chief Type: Anesthesia Procedure Notes Filed: 03/11/2023 10:44 AM Note Text: ANESTHESIOLOGY PROCEDURE NOTE Airway General Information Procedure Start Time/Medication Administration: 03/11/2023 10:30 AM Staffing Anesthesiologist: Carl Mckeon DO OPERATOR TECHNICIAN: Bev Hayes APRN.OPERATOR TECHNICIAN Performed by: anesthesiologist Indications and Patient Condition Indications for airway management: anesthesia Preoxygenated: yes anesthesia circuit Patient position: sniffing Method: asleep Cricoid Pressure: No Manual In-Line Stabilization: No Difficult Mask: No Final Airway Details Final airway type: supraglottic airway Number of attempts at approach: 1 Final Supraglottic Airway: LMA Unique Size 4 Seal Adequate: yes Failed airway: no Unrecognized esophageal intubation: no Airway not difficult SIGNATURE: Bev Hayes APRN.CRNA PATIENT NAME: Sangeetha Redd DATE: March 11, 2023 TIME: 10:43 AM CSN: [id number] [facility] 03-10-2023 Note HNO ID: [id number] Author: Patricia Hogan RN Service: ? Author Type: Registered Nurse Type: Progress Notes Filed: 03/10/2023 3:09 PM Note Text: PATIENT MEDICATION INSTRUCTIONS Please read below carefully for your personalized instructions. Medications: If you are on blood thinner or anticoagulants including aspirin, please confirm with your surgical team on when to stop these medications. Unless instructed differently by your surgical team, stay on all of your medications until your surgery. Pre-Surgery Med Instructions Medication Instructions dextroamphetamine-amphetamine (ADDERALL) 10 mg tablet Take morning of surgery with a sip of water, no other fluids LORazepam (ATIVAN) 0.5 mg PRN if needed vitamin b complex (B COMPLETE) tab Follow Surgeon's instructions tiZANidine (ZANAFLEX) 4 mg tablet PRN if needed Magnesium Oxide 250 mg magnesium tab Follow Surgeon's instructions levothyroxine (SYNTHROID) 88 mcg tablet Take morning of surgery with a sip of water, no other fluids Cholecalciferol, Vitamin D3, 125 mcg (5,000 unit) cap Follow Surgeon's instructions ondansetron orally disintegrating (ZOFRAN ODT) 4 mg disintegrating tablet PRN if needed If you have any medication changes between receiving these instructions and your surgery date, please provide this updated information with the nurse who calls you the week day prior to your surgical procedure so we can update your list and provide you with updated instructions for the morning of your procedure. PRE-PROCEDURE INSTRUCTIONS TO PREPARE FOR YOUR PROCEDURE: Your arrival time for your procedure is 0815. Do NOT eat any solid foods after MIDNIGHT the night prior to your procedure - this includes gum or mints. You can drink clear liquids* up until 0615, which is 2 hours before your arrival time. *Clear liquids = water, carbohydrate drink (sports drink that is clear or yellow in color), Ensure Pre-Surgery (given by ARVIND or your DrDayan), fruit juice without pulp (apple/cranberry), clear tea, black coffee (no cream). NO CARBONATED BEVERAGES AND NO ALCOHOL. Shower the morning of the procedure, put on clean clothes, and have clean sheets for your bed to help prevent infection after your procedure. Leave all valuables such as jewelry including rings, piercings, wallets, and purses at home. Wear comfortable, loose-fitting clothing. If you wear glasses or contacts, please bring a case. SPECIAL INSTRUCTIONS: If instructed, bring your first voided urine specimen with you. If you were provided skin preparation to use prior to your procedure, complete this as directed. If you were provided Ensure Pre-Surgery drink, you need to drink this at . This should be consumed quickly (in less than 5 minutes, rather than sipped over time) If you use crutches or a walker, bring them with you. If you have a home CPAP/BIPAP machine, bring it with you. If you were instructed to complete a fleets enema or bowel prep, complete as directed. Bring copy of Living Will/Power of Oil House Attendant. Do not smoke or chew. If you use tobacco, quit or at least cut down before surgery. Do not smoke or chew after midnight the day before your surgery. This effects bleeding, infection, healing, and so much more. Do not take any Diet or Herbal Supplements 2 weeks prior to your surgery date. Please notify your physician if there is any change in your physical condition such as a cold, cough, fever, sore throat, or skin irritation near the surgical site. Visitors under the age of 14 are restricted in the Surgery Center. UPON ARRIVAL: [facility] located on [address] [place] [address]. [employer] parking is available for your convenience from 5am-5pm- there is a $5.00 charge for this service. Take the elevators directly inside the entrance to the 1st Floor Surgery Lobby. Sign in at the podium located to the left when you get off the elevators. A payment may be expected at the time of service. One visitor may come back to the preoperative area with you. The preoperative staff will be reviewing your medical history, please let them know if you prefer not to have a visitor with you during this time. Once you are ready for surgery, two visitors at a time are permitted in your preoperative room. [facility] 03-10-2023 Note HNO ID: [id number] Author: Hayley Mike APRN.JOI Service: ? Author Type: Nurse Practitioner Type: Progress Notes Filed: 03/10/2023 1:05 PM Note Text: Summary: dos meds PATIENT MEDICATION INSTRUCTIONS Please read below carefully for your personalized instructions. Medications: If you are on blood thinner or anticoagulants including aspirin, please confirm with your surgical team on when to stop these medications. Unless instructed differently by your surgical team, stay on all of your medications until your surgery. Pre-Surgery Med Instructions Medication Instructions dextroamphetamine-amphetamine (ADDERALL) 10 mg tablet Take morning of surgery with a sip of water, no other fluids LORazepam (ATIVAN) 0.5 mg PRN if needed vitamin b complex (B COMPLETE) tab Follow Surgeon's instructions tiZANidine (ZANAFLEX) 4 mg tablet PRN if needed Magnesium Oxide 250 mg magnesium tab Follow Surgeon's instructions levothyroxine (SYNTHROID) 88 mcg tablet Take morning of surgery with a sip of water, no other fluids Cholecalciferol, Vitamin D3, 125 mcg (5,000 unit) cap Follow Surgeon's instructions ondansetron orally disintegrating (ZOFRAN ODT) 4 mg disintegrating tablet PRN if needed If you have any medication changes between receiving these instructions and your surgery date, please provide this updated information with the nurse who calls you the week day prior to your surgical procedure so we can update your list and provide you with updated instructions for the morning of your procedure. [facility] 03-06-2023 Note HNO ID: [id number] Author: Jose Luis [place], DO Service: ? Author Type: Physician Type: Progress Notes Filed: 03/06/2023 8:02 AM Note Text: CC: Sangeetha Redd is a 43 year old female who presents to the office for follow up. HPI: Recently she was having flank pain and diagnosed with ureterolithiasis. She was seen at [facility] and also referred to urologist. She had an accompanying UTI/cystitis when diagnosed with stone. She was started on Bactrim antibiotic. The lithotripsy surgery is scheduled for Mar [address] Barahona. Hypothyroidism, she is due for labs to be rechecked Dysmetabolic syndrome. She is frustrated with her central weight and struggling to further lose weight and get this under control. She is considering starting on medication again to help her. ADD, taking adderall as prescribed. Needing rx refilled. Symptoms are stable/controlled Anxiety symptoms, long standing, use of prn ativan as prescribed. Needing rx refilled. PAST MEDICAL HISTORY Diagnosis Date Anesthesia states mom had issues in 2013 leading to air emboli after surgery. pt herself has had no issues. Anxiety Cerebral aneurysm 2015 just watching scanned last 2021 - Dr. Oneal Complicated migraine Endometriosis 75% improvement in abdominal pain post lap surgery Fibromyalgia Hypothyroidism IBS (irritable bowel syndrome) Insulin resistance Lactose intolerance in adult Left thyroid nodule 12/2020 repeat thyroid US 12/2021 Low HDL (under 40) Low serum progesterone worsening symptoms with progesterone rx Lumbar disc disease 05/13/2010 Migraines CADENCE (obstructive sleep apnea) Last polysomnogram in 2012, last use in 2012 Personal history of kidney stones Polycystic ovary syndrome 06/19/2010 Protein S deficiency (HCC) 2007 clotting disorder (just had APPT drawn - in [place] [facility]) PUD (peptic ulcer disease) 2009 treated medically, repeat EGD neg in 2014 Renal calculi 2009 associated to low citric acid, h/o hypercalciuria Rosacea 06/19/2010 Shingles 2010 right flank area into right upper abdomen Vitamin D deficiency PAST SURGICAL HISTORY Procedure Laterality Date APPENDECTOMY COLONOSCOPY FLX DX W/COLLJ SPEC WHEN PFRMD 08/16/2014 Colonoscopy-repeat at 50 ESOPHAGOGASTRODUODENOSCOPY TRANSORAL DIAGNOSTIC 08/16/2014 EGD LAPAROSCOPY SURG CHOLECYSTECTOMY 04/27/2003 Cholecystectomy, lap OVARIAN CYSTECTOMY Bilateral 07/30/2021 PAST SURGICAL HISTORY OF Laparoscopy for endometriosis PAST SURGICAL HISTORY OF dANDc PAST SURGICAL HISTORY OF wisdom teeth PYELOTOMY W/REMOVAL CALCULUS 04/27/2008 multiple VAGINAL HYSTERECTOMY Social History: Social History Tobacco Use Smoking status: Never Smokeless tobacco: Never Vaping Use Vaping Use: Never used Substance Use Topics Alcohol use: Yes Comment: twice a year- socially Drug use: No FAMILY HISTORY Problem Relation Age of Onset Breast Cancer Mother 39 Arthritis Mother Fibromyalgia other (irregular heartbeat) Mother Hypertension Maternal Grandmother Alzheimer's Disease Maternal Grandmother Arthritis Maternal Grandmother other (dementia) Maternal Grandmother Diabetes Brother type 1 Stroke Maternal Grandfather other (Eosinophilic esophagitis) Son other (Abdominal migraines) Son ADD/ADHD Daughter Arthritis Father Thyroid Father Hypertension Father Thyroid Cancer Sister Diabetes Brother Type 1 Current Outpatient prescriptions: vitamin b complex (B COMPLETE) tab Take 1 tablet by mouth once daily. tiZANidine (ZANAFLEX) 4 mg tablet Take 1 tablet by mouth every 8 hours as needed (muscle spasms). Magnesium Oxide 250 mg magnesium tab Take 1 tablet by mouth daily at bedtime. triamcinolone acetonide (KENALOG) 0.5 % cream Apply 1 application to affected area daily at bedtime. On left lower leg skin lesion at ankle. Apply sparingly. Avoid face/skin fold. levothyroxine (SYNTHROID) 88 mcg tablet Take 1 tablet by mouth once daily. and skip 1 day weekly. (Patient taking differently: Take 88 mcg by mouth daily before breakfast. and skip 1 day weekly.) carbonyl iron 15 mg chew Take 1 tablet by mouth twice daily with meals. Cholecalciferol, Vitamin D3, 125 mcg (5,000 unit) cap Take 1 capsule by mouth once daily. (Patient taking differently: Take 5,000 Units by mouth every morning.) ondansetron orally disintegrating (ZOFRAN ODT) 4 mg disintegrating tablet Take 1 tablet by mouth every 6 hours as needed for Nausea/Vomiting. dextroamphetamine-amphetamine (ADDERALL) 10 mg tablet Take 1 tablet by mouth once daily for 30 days. (Patient taking differently: Take 10 mg by mouth every morning.) LORazepam (ATIVAN) 0.5 mg Take 1 tablet by mouth once daily as needed for up to 30 days. tamsulosin (FLOMAX) 0.4 mg Take 1 capsule by mouth daily at bedtime. For kidney stones (Patient not taking: Reported on 03/03/2023) Allergies: ALLERGIES Allergen Reactions Aleve [Naproxen Sod* Vomit (more content not included)... [facility] 03-06-2023 History of Present illness Narrative CC: Sangeetha Redd is a 43 year old female who presents to the office for follow up. HPI: Recently she was having flank pain and diagnosed with ureterolithiasis. She was seen at [facility] and also referred to urologist. She had an accompanying UTI/cystitis when diagnosed with stone. She was started on Bactrim antibiotic. The lithotripsy surgery is scheduled for Mar [address] Barahona. Hypothyroidism, she is due for labs to be rechecked Dysmetabolic syndrome. She is frustrated with her central weight and struggling to further lose weight and get this under control. She is considering starting on medication again to help her. ADD, taking adderall as prescribed. Needing rx refilled. Symptoms are stable/controlled Anxiety symptoms, long standing, use of prn ativan as prescribed. Needing rx refilled. PAST MEDICAL HISTORY Diagnosis Date Anesthesia states mom had issues in 2013 leading to air emboli after surgery. pt herself has had no issues. Anxiety Cerebral aneurysm 2015 just watching scanned last 2021 - Dr. Oneal Complicated migraine Endometriosis 75% improvement in abdominal pain post lap surgery Fibromyalgia Hypothyroidism IBS (irritable bowel syndrome) Insulin resistance Lactose intolerance in adult Left thyroid nodule 12/2020 repeat thyroid US 12/2021 Low HDL (under 40) Low serum progesterone worsening symptoms with progesterone rx Lumbar disc disease 05/13/2010 Migraines CADENCE (obstructive sleep apnea) Last polysomnogram in 2012, last use in 2012 Personal history of kidney stones Polycystic ovary syndrome 06/19/2010 Protein S deficiency (HCC) 2007 clotting disorder (just had APPT drawn - in [place] - [facility]) PUD (peptic ulcer disease) 2009 treated medically, repeat EGD neg in 2014 Renal calculi 2009 associated to low citric acid, h/o hypercalciuria Rosacea 06/19/2010 Shingles 2010 right flank area into right upper abdomen Vitamin D deficiency PAST SURGICAL HISTORY Procedure Laterality Date APPENDECTOMY COLONOSCOPY FLX DX W/COLLJ SPEC WHEN PFRMD 08/16/2014 Colonoscopy-repeat at 50 ESOPHAGOGASTRODUODENOSCOPY TRANSORAL DIAGNOSTIC 08/16/2014 EGD LAPAROSCOPY SURG CHOLECYSTECTOMY 04/27/2003 Cholecystectomy, lap OVARIAN CYSTECTOMY Bilateral 07/30/2021 PAST SURGICAL HISTORY OF Laparoscopy for endometriosis PAST SURGICAL HISTORY OF d&c PAST SURGICAL HISTORY OF wisdom teeth PYELOTOMY W/REMOVAL CALCULUS 04/27/2008 multiple VAGINAL HYSTERECTOMY Social History: Social History Tobacco Use Smoking status: Never Smokeless tobacco: Never Vaping Use Vaping Use: Never used Substance Use Topics Alcohol use: Yes Comment: twice a year- socially Drug use: No FAMILY HISTORY Problem Relation Age of Onset Breast Cancer Mother 39 Arthritis Mother Fibromyalgia other (irregular heartbeat) Mother Hypertension Maternal Grandmother Alzheimer's Disease Maternal Grandmother Arthritis Maternal Grandmother other (dementia) Maternal Grandmother Diabetes Brother type 1 Stroke Maternal Grandfather other (Eosinophilic esophagitis) Son other (Abdominal migraines) Son ADD/ADHD Daughter Arthritis Father Thyroid Father Hypertension Father Thyroid Cancer Sister Diabetes Brother Type 1 Current Outpatient prescriptions: vitamin b complex (B COMPLETE) tab Take 1 tablet by mouth once daily. tiZANidine (ZANAFLEX) 4 mg tablet Take 1 tablet by mouth every 8 hours as needed (muscle spasms). Magnesium Oxide 250 mg magnesium tab Take 1 tablet by mouth daily at bedtime. triamcinolone acetonide (KENALOG) 0.5 % cream Apply 1 application to affected area daily at bedtime. On left lower leg skin lesion at ankle. Apply sparingly. Avoid face/skin fold. levothyroxine (SYNTHROID) 88 mcg tablet Take 1 tablet by mouth once daily. and skip 1 day weekly. (Patient taking differently: Take 88 mcg by mouth daily before breakfast. and skip 1 day weekly.) carbonyl iron 15 mg chew Take 1 tablet by mouth twice daily with meals. Cholecalciferol, Vitamin D3, 125 mcg (5,000 unit) cap Take 1 capsule by mouth once daily. (Patient taking differently: Take 5,000 Units by mouth every morning.) ondansetron orally disintegrating (ZOFRAN ODT) 4 mg disintegrating tablet Take 1 tablet by mouth every 6 hours as needed for Nausea/Vomiting. dextroamphetamine-amphetamine (ADDERALL) 10 mg tablet Take 1 tablet by mouth once daily for 30 days. (Patient taking differently: Take 10 mg by mouth every morning.) LORazepam (ATIVAN) 0.5 mg Take 1 tablet by mouth once daily as needed for up to 30 days. tamsulosin (FLOMAX) 0.4 mg Take 1 capsule by mouth daily at bedtime. For kidney stones (Patient not taking: Reported on 03/03/2023) Allergies: ALLERGIES Allergen Reactions Aleve [Naproxen Sod* Vomiting Ibuprofen without problems Vomiting with Aleve with one time use Menthol Rash Metformin GI Upset Penicillins Swelling Adhesive Rash ROS: See HPI PE: 03/03/23 1302 BP: 118/72 Pulse: 76 Resp: 16 Temp: 36.6 C (97.9 F) SpO2: 99% Weight: 88.2 kg (194 lb 6.4 oz) Gen: A&O, NAD, non-toxic appearing, Pleasant, cooperative HEENT: NT/AC, PERRLA, EOMs intact b/l, nares clear and patent b/l, pharynx without erythema, exudate or lesions. Uvula midline. MMM Neck: supple, No cervical LAD, no thyromegaly, no carotid bruits CV: RRR, normal S1 and S2, no murmurs, no gallops, no rubs, Pulses 2+ and symmetric in UE and LE b/l Lungs: normal respiratory effort, CTA b/l, no wheezing or rhonchi or rales Abd: soft, NT, ND, +BS, no hepatosplenomegaly MS: FROM all 4 extremities Right flank pain Neuro: CN II-XII intact b/l, strength 5/5 b/l UE and LE, DTRs 2/4 UE and LE, sensation intact. Skin: warm, dry, intact, No rashes or lesions on exposed skin. No edema, normal pulses ASSESSMENT/PLAN: 1. Hypothyroidism, acquired - ICD9: 244.9, ICD10: E03.9 (primary diagnosis) - Instructed patient on importance of taking on an empty stomach either first thing in the morning or at bedtime. - continue current dose of Synthroid - TSH BLD - T4 FREE/FREE THYROX - T3 FREE BLD 2. Impaired concentration - ICD9: 799.51, ICD10: R41.840 rx refilled, chronic, stable, taking medications as prescribed. - DEXTROAMPHETAMINE-AMPHETAMINE 10 MG TABLET - LORAZEPAM 0.5 MG TABLET 3. Anxiety disorder, unspecified type - ICD9: 300.00, ICD10: F41.9 rx for prn use, overall stable - LORAZEPAM 0.5 MG TABLET 4. Dysmetabolic syndrome - ICD9: 277.7, ICD10: E88.810 Recheck labs, consider starting on medication if needed to help with weight loss. Will reassess this after she has her kidney stone procedure for lithotripsy. - INSULIN ASSAY BLOOD - COMP METABOLIC PANEL - HGB A1C 5. Kidney stone - ICD9: 592.0, ICD10: N20.0 See above/ follow up with urologist for procedure. Right ureterolithiasis/kidney stone 6. Obesity, Class II, BMI 35-39.9 - ICD9: 278.00, ICD10: E66.9 - Lengthy discussion in office today regarding [...] track your calories and exercise as well. Recheck labs, consider starting on medication if needed to help with weight loss. Will reassess this after she has her kidney stone procedure for lithotripsy. Jose Luis [place] DO PDMP website checked and validated. All prescriptions have been APPROPRIATELY filled. No suspicious activity was identified. 03/06/2023 by Jose Luis Toledo DO To ER if develops chest pain, shortness of breath, or severe worsening of symptoms. Discussed risks, benefits, alternatives, and potential side effects of medications. Patient expressed understanding and agreed with the plan. Jose Luis Toledo DO [address] [place] [address] documented in this encounter [facility] 02-27-[address] from [place] with Dr. Barahona. R ureteral stone does appear to be back in the Kidney ? She is still having intermittent pain, hematuria and frequency. She is going to the lab to get a PTT (hx of a blood disorder when she was ) and will get a urine c+s as well. I sent in Bactrim as well. She is scheduled for R ESWL with Dr. Barahona on 03/11/23 at this time. We will keep this unless PTT is abnormal. Amado Cunningham APRN.JOI documented in this encounter [facility] 02-19-2023 Miscellaneous Notes The following approved medication requests have been transmitted electronically. Requested Prescriptions Signed Prescriptions Disp Refills tamsulosin (FLOMAX) 0.4 mg 7 capsule 1 Sig: Take 1 capsule by mouth daily at bedtime. For kidney stones Authorizing Provider: AMADO CUNNINGHAM APRN.CNP Patient is having intermittent pain and it is tolerate able and was asking for a refill on her flomax. MAGDIEL Sullivan documented in this encounter [facility] 02-18-2023 Miscellaneous Notes Tried calling pt to review KUB results- no answer. KUB still showing the ureteral stone. She does have an appt with Shaina next week, but if she was in a lot of pain I was going to discuss surgical options. Amado Bonilla APRN.SOCIOLOGY PROFESSOR documented in this encounter [facility] 02-16-2023 Note HNO ID: [id number] Author: Rajani Perez RDMS Service: ? Author Type: Pie Chef Type: Progress Notes Filed: 02/16/2023 9:25 AM Note Text: Radiology Service Progress Note PATIENT NAME: Sangeetha Redd DATE OF SERVICE: February 16, 2023 TIME: 9:25 AM PATIENT IDENTITY VERIFICATION COMPLETED USING TWO (2) IDENTIFIERS: Name and Date of confirmed by patient verbally. FALL SCREENING: Has the patient had 2 falls in the last year or 1 fall with injury or currently using an Ambulatory Assistive Device (Walker, Cane, Wheelchair, Crutches, etc.)? No PATIENT GENDER DATA: Female. status: : No status: NO. PATIENT RELEVANT IMPLANT DATA REVIEWED: Not Applicable RADIOLOGY DEPARTMENT: Ultrasound PERIPHERAL IV DATA: Not applicable SIGNED BY: Rajani Perez RDMS RVT February 16, 2023 9:25 AM [facility] 02-16-2023 Note HNO ID: [id number] Author: Cierra [place] RT(R) Service: ? Author Type: Supervisor Pre Wave Type: Progress Notes Filed: 02/16/2023 8:58 AM Note Text: Radiology Service Progress Note PATIENT NAME: Sangeetha Redd DATE OF SERVICE: February 16, 2023 TIME: 8:46 AM PATIENT IDENTITY VERIFICATION COMPLETED USING TWO (2) IDENTIFIERS: Name and Date of confirmed by patient verbally. FALL SCREENING: Has the patient had 2 falls in the last year or 1 fall with injury or currently using an Ambulatory Assistive Device (Walker, Cane, Wheelchair, Crutches, etc.)? No PATIENT GENDER DATA: Female. status: : No status: NO. PATIENT RELEVANT IMPLANT DATA REVIEWED: Yes RADIOLOGY DEPARTMENT: General X-ray: Exam(s) Completed: Abdomen X-Ray: Abdomen PERIPHERAL IV DATA: Not applicable SIGNED BY: RT Jonathan(R) February 16, 2023 8:46 AM [facility] 02-16-2023 History of Present illness Narrative Radiology Service Progress Note PATIENT NAME: Sangeetha Redd DATE OF SERVICE: February 16, 2023 TIME: 9:25 AM PATIENT IDENTITY VERIFICATION COMPLETED USING TWO (2) IDENTIFIERS: Name and Date of confirmed by patient verbally. FALL SCREENING: Has the patient had 2 falls in the last year or 1 fall with injury or currently using an Ambulatory Assistive Device (Walker, Cane, Wheelchair, Crutches, etc.)? No PATIENT GENDER DATA: Female. status: : No status: NO. PATIENT RELEVANT IMPLANT DATA REVIEWED: Not Applicable RADIOLOGY DEPARTMENT: Ultrasound PERIPHERAL IV DATA: Not applicable SIGNED BY: Rajani Perez RDMS RVT February 16, 2023 9:25 AM documented in this encounter [facility] 02-12-2023 Note HNO ID: [id number] Author: Alfredo Ortega APRN.CNP Service: ? Author Type: Nurse Practitioner Type: Progress Notes Filed: 02/12/2023 11:14 AM Note Text: Nontoxic-appearing female presents urgent care requesting pain management. Patient states recently diagnosed with kidney stones. Stone size of 4.7 mm's. Likelihood of passing stone 70%. Was started on Flomax. Instructed to follow-up with urology in 2 weeks for repeat KUB and renal ultrasound. Was instructed to proceed in the ER if symptoms are worsening. Patient presents today with worsening symptoms. I recommended patient be seen in ED for further evaluation care. Alfredo Ortega APRN.CNP [facility] 02-12-2023 History of Present illness Narrative Nontoxic-appearing female presents urgent care requesting pain management. Patient states recently diagnosed with kidney stones. Stone size of 4.7 mm's. Likelihood of passing stone 70%. Was started on Flomax. Instructed to follow-up with urology in 2 weeks for repeat KUB and renal ultrasound. Was instructed to proceed in the ER if symptoms are worsening. Patient presents today with worsening symptoms. I recommended patient be seen in ED for further evaluation care. Alfredo Ortega APRN.SOCIOLOGY PROFESSOR documented in this encounter [facility] 02-12-2023 Miscellaneous Notes Spoke with pt message released Urine cx results contaminated. Stop flomax, generally not a symptom of flomax. May be due to stone lower in ureter. Pt called in asking for urine culter results Pt also states she cannot hold urine since taking flowmax pt asking is this normal Please advise Gideon Gonzalez MA documented in this encounter [facility] 02-09-2023 Note HNO ID: [id number] Author: Shaina Crowley APRN.CNP Service: ? Author Type: Nurse Practitioner Type: Progress Notes Filed: 02/09/2023 11:45 AM Note Text: [facility] NEW CONSULT HISTORY AND PHYSICAL EXAMINATION PATIENT: Sangeetha Redd (43 year old) REFERRING PROVIDER: 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 PCP: Jose Luis Toledo DO Consultation requested by 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 for an opinion regarding Sangeetha Redd. My final recommendations will be communicated back to the requesting physician by way of shared Medical record or letter to requesting physician via [place] mail. --------- SUMMARY: Patient presents to establish for concern for hx of kidney stones, right flank pain, and gross hematuria. Recently seen by pcp ASSESSMENT/PLAN: 1. Right ureteral stone - ICD9: 592.1, ICD10: N20.1 (primary diagnosis) Final imaging report still pending, however on review demosntrated proximal right ureteral stone measuring 4.7 x 5mm. Imaging reviewed with patient which demonstrated 4.7mm right ureteral stone. Patient reports history of stones previous stones. Patient reports has not passed stone. UA demonstrated moderate blood Patient reported urinary symptoms including frequency, urgency. Discussed with patient the likelyhood of stone passage (70%) and discussed stone management options including continuing trail passage of stone w/ flomax or proceeding to surgical intervention. Patient would like to continue trial passage and will follow-up with close monitoring with KUB/renal us. Patient would likely benefit from 24 hour urine in the future. Advised follow-up in 2 weeks with KUB/renal US.ER with any severe pain. 2. Acute right flank pain - ICD9: 789.09, 338.19, ICD10: R10.9 2/2 to right ureteral stone 3. Gross hematuria - ICD9: 599.71, ICD10: R31.0 2/2 to right ureteral stone FOLLOW UP: Return for 2 weeks with renal us/kub. --------- CHIEF COMPLAINT: Patient presents with: Kidney Stones HISTORY OF PRESENT ILLNESS: I personally reviewed the past medical records received from the referring provider. I personally reviewed the prior radiology images, and my findings were discussed with the patient. Ms. Redd is a 43 year old female referred by Jose Luis Toledo DO for concern for stone. CT ordered by pcp. . [facility]ist: Dr. Lira (2015), Dr. Colin (-2008), previous urologist in [facility] Hx of kidney stones: yes, Family hx of kidney stones/treatment: hx of stone treatment in 2008 requiring laser lithotripsy. 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 Protein S deficiency. Personal/family hx of kidney cancer, bladder cancer, or prostate cancer: denies Previous surgery on kidneys, bladder, urethra, or prostate: lithotripsy x 8 in the past, last in 2008. Hx of smoking: denies Environmental/occupational exposures: Sangeetha is a 43 year old female with past medical history of migraines, fibromyalgia, CADENCE, IBS, PUD, hypothyroidism, hyperlipidemia, IFG, chronic low back pain, history of nephrolithiasis, and obesity. She was seen blood in urine 1 week ago. She reports some feeling of urgency, and feeling of full bladder as well as cramping and bloating. Denies any fever, chills, weakness, or night sweats. No recent gross hematuria. REVIEW OF SYSTEMS: Constitutional: unintentional weight loss - denies Cardiovascular: new or worsening chest pain - denies Respiratory: new or worsening shortness of breath - denies Gastrointestinal: constipation - denies Hematologic/Lymphatic: easy bleeding or bruising - denies ALLERGIES: ALLERGIES Allergen Reactions Aleve [Naproxen Sod* Vomiting Ibuprofen without problems Vomiting with Aleve with one time use Menthol Rash Metformin GI Upset Penicillins Swelling MEDICATIONS: carbonyl iron 15 mg chew Take 1 tablet by mouth twice daily with meals. Cholecalciferol, Vitamin D3, 125 mcg (5,000 unit) cap Take 1 capsule by mouth once daily. dextroamphetamine-amphetamine (ADDERALL) 5 mg tablet Take 1 tablet by mouth once daily as needed for up to 30 days. In the afternoon, in addition to am 10mg dose. levothyroxine (SYNTHROID) 88 mcg tablet Take 1 tablet by mouth once daily. and skip 1 day weekly. Magnesium Oxide 250 mg magnesium tab Take 1 tablet by mouth daily at bedtime. ondansetron orally disintegrating (ZOFRAN ODT) 4 mg disintegrating tablet Take 1 tablet by mouth every 6 hours as needed for Nausea/Vomiting. Phentermine HCl (ADIPEX-P) 37.5 mg tablet Take 1 tablet by mouth once daily for 30 days. BMI 36.91 tamsulosin (FLOMAX) 0.4 mg Take 1 capsule by mouth daily at bedtime. For kidney stones tiZANidine (ZANAFL (more content not included)... [facility] 02-09-2023 History of Present illness Narrative [facility] NEW CONSULT HISTORY AND PHYSICAL EXAMINATION PATIENT: Sangeetha Redd (43 year old) REFERRING PROVIDER: 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 PCP: Jose Luis [facility]edo, DO Consultation requested by 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 for an opinion regarding Sangeetha Redd. My final recommendations will be communicated back to the requesting physician by way of shared Medical record or letter to requesting physician via US mail. SUMMARY: Patient presents to establish for concern for hx of kidney stones, right flank pain, and gross hematuria. Recently seen by pcp ASSESSMENT/PLAN: 1. Right ureteral stone - ICD9: 592.1, ICD10: N20.1 (primary diagnosis) Final imaging report still pending, however on review demosntrated proximal right ureteral stone measuring 4.7 x 5mm. Imaging reviewed with patient which demonstrated 4.7mm right ureteral stone. Patient reports history of stones previous stones. Patient reports has not passed stone. UA demonstrated moderate blood Patient reported urinary symptoms including frequency, urgency. Discussed with patient the likelyhood of stone passage (70%) and discussed stone management options including continuing trail passage of stone w/ flomax or proceeding to surgical intervention. Patient would like to continue trial passage and will follow-up with close monitoring with KUB/renal us. Patient would likely benefit from 24 hour urine in the future. Advised follow-up in 2 weeks with KUB/renal US.ER with any severe pain. 2. Acute right flank pain - ICD9: 789.09, 338.19, ICD10: R10.9 2/2 to right ureteral stone 3. Gross hematuria - ICD9: 599.71, ICD10: R31.0 2/2 to right ureteral stone FOLLOW UP: Return for 2 weeks with renal us/kub. CHIEF COMPLAINT: Patient presents with: Kidney Stones HISTORY OF PRESENT ILLNESS: I personally reviewed the past medical records received from the referring provider. I personally reviewed the prior radiology images, and my findings were discussed with the patient. Ms. Redd is a 43 year old female referred by Jose Luis Toledo DO for concern for stone. CT ordered by pcp. . [facility]ist: Dr. Lira (2015), Dr. Colin (-2008), previous urologist in [facility] Hx of kidney stones: yes, Family hx of kidney stones/treatment: hx of stone treatment in 2008 requiring laser lithotripsy. 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 Protein S deficiency. Personal/family hx of kidney cancer, bladder cancer, or prostate cancer: denies Previous surgery on kidneys, bladder, urethra, or prostate: lithotripsy x 8 in the past, last in 2008. Hx of smoking: denies Environmental/occupational exposures: Sangeetha is a 43 year old female with past medical history of migraines, fibromyalgia, CADENCE, IBS, PUD, hypothyroidism, hyperlipidemia, IFG, chronic low back pain, history of nephrolithiasis, and obesity. She was seen blood in urine 1 week ago. She reports some feeling of urgency, and feeling of full bladder as well as cramping and bloating. Denies any fever, chills, weakness, or night sweats. No recent gross hematuria. REVIEW OF SYSTEMS: Constitutional: unintentional weight loss - denies Cardiovascular: new or worsening chest pain - denies Respiratory: new or worsening shortness of breath - denies Gastrointestinal: constipation - denies Hematologic/Lymphatic: easy bleeding or bruising - denies ALLERGIES: ALLERGIES Allergen Reactions Aleve [Naproxen Sod* Vomiting Ibuprofen without problems Vomiting with Aleve with one time use Menthol Rash Metformin GI Upset Penicillins Swelling MEDICATIONS: carbonyl iron 15 mg chew Take 1 tablet by mouth twice daily with meals. Cholecalciferol, Vitamin D3, 125 mcg (5,000 unit) cap Take 1 capsule by mouth once daily. dextroamphetamine-amphetamine (ADDERALL) 5 mg tablet Take 1 tablet by mouth once daily as needed for up to 30 days. In the afternoon, in addition to am 10mg dose. levothyroxine (SYNTHROID) 88 mcg tablet Take 1 tablet by mouth once daily. and skip 1 day weekly. Magnesium Oxide 250 mg magnesium tab Take 1 tablet by mouth daily at bedtime. ondansetron orally disintegrating (ZOFRAN ODT) 4 mg disintegrating tablet Take 1 tablet by mouth every 6 hours as needed for Nausea/Vomiting. Phentermine HCl (ADIPEX-P) 37.5 mg tablet Take 1 tablet by mouth once daily for 30 days. BMI 36.91 tamsulosin (FLOMAX) 0.4 mg Take 1 capsule by mouth daily at bedtime. For kidney stones tiZANidine (ZANAFLEX) 4 mg tablet Take 1 tablet by mouth every 8 hours as needed (muscle spasms). triamcinolone acetonide (KENALOG) 0.5 % cream Apply 1 application to affected area daily at bedtime. On left lower leg skin lesion at ankle. Apply sparingly. Avoid face/skin fold. vitamin b complex (B COMPLETE) tab Take 1 tablet by mouth once daily. PAST HISTORY: PAST MEDICAL HISTORY Diagnosis Date Anxiety Cerebral aneurysm Complicated migraine Endometriosis 75% improvement in abdominal pain post lap surgery Hypothyroidism IBS (irritable bowel syndrome) Insulin resistance Lactose intolerance in adult Left thyroid nodule 12/2020 repeat thyroid US 12/2021 Low HDL (under 40) Low serum progesterone worsening symptoms with progesterone rx Lumbar disc disease 05/13/2010 Migraines CADENCE (obstructive sleep apnea) Last polysomnogram in 2012, last use in 2012 Personal history of kidney stones Polycystic ovary syndrome 06/19/2010 Protein S deficiency (HCC) 2007 clotting disorder PUD (peptic ulcer disease) 2009 treated medically, repeat EGD neg in 2014 Renal calculi 2009 associated to low citric acid, h/o hypercalciuria Rosacea 06/19/2010 Shingles 2010 right flank area into right upper abdomen Vitamin D deficiency PAST SURGICAL HISTORY Procedure Laterality Date APPENDECTOMY COLONOSCOPY FLX DX W/COLLJ SPEC WHEN PFRMD 08/16/2014 Colonoscopy-repeat at 50 ESOPHAGOGASTRODUODENOSCOPY TRANSORAL DIAGNOSTIC 08/16/2014 EGD LAPAROSCOPY SURG CHOLECYSTECTOMY 04/27/2003 Cholecystectomy, lap OVARIAN CYSTECTOMY Bilateral 07/30/2021 PAST SURGICAL HISTORY OF Laparoscopy for endometriosis PAST SURGICAL HISTORY OF d&c PAST SURGICAL HISTORY OF wisdom teeth PYELOTOMY W/REMOVAL CALCULUS 04/27/2008 multiple FAMILY HISTORY Problem Relation Age of Onset Breast Cancer Mother 39 Arthritis Mother Fibromyalgia other (irregular heartbeat) Mother Hypertension Maternal Grandmother Alzheimer's Disease Maternal Grandmother Arthritis Maternal Grandmother other (dementia) Maternal Grandmother Diabetes Brother type 1 Stroke Maternal Grandfather other (Eosinophilic esophagitis) Son other (Abdominal migraines) Son ADD/ADHD Daughter Arthritis Father Thyroid Father Hypertension Father Thyroid Cancer Sister Diabetes Brother Type 1 Social History Tobacco Use Smoking status: Never Smokeless tobacco: Never Vaping Use Vaping Use: Never used Substance Use Topics Alcohol use: Yes Comment: twice a year- socially Drug use: No PHYSICAL EXAMINATION: Pulse 68 Ht 152.4 cm (5') Wt 87.1 kg (192 lb) LMP 05/30/2019 (Exact Date) BMI 37.50 kg/m Constitutional: In no acute distress. Well appearing. Respiratory: Normal respiratory effort without use of accessory muscles. Musculoskeletal: Normal gait and station Cardiovascular: regular rate and rhythm Gastrointestinal: soft, non-tender, non-distended, Denies CVA tenderness DATA: Clinic: Urine Dip Result: Leukocytes: negative Nitrates: Negative Urobilinogen: 0.2 Protein: negative pH: 6.0 Blood: moderate Specific [place]: 1.015 Ketones: negative Bilirubin: negative Glucose: negative Laboratory: Creatinine Date Value Ref Range Status 05/19/2022 0.68 0.58 - 0.96 mg/dL Final 01/20/2022 0.58 0.58 - 0.96 mg/dL Final 12/09/2021 0.69 0.58 - 0.96 mg/dL Final 08/12/2021 0.65 0.58 - 0.96 mg/dL Final I have reviewed the problem list, family history, and social history documented by my ancillary staff. Shaina Crowley APRN.SOCIOLOGY PROFESSOR documented in this encounter [facility] 02-05-2023 Note HNO ID: [id number] Author: Elpidio Márquez CT Service: Radiology Author Type: Technologist Type: Progress Notes Filed: 02/05/2023 8:52 AM Note Text: Radiology Service Progress Note PATIENT NAME: Sangeetha Redd DATE OF SERVICE: February 05, 2023 TIME: 8:52 AM PATIENT IDENTITY VERIFICATION COMPLETED USING TWO (2) IDENTIFIERS: Name and Date of confirmed by patient verbally. FALL SCREENING: Has the patient had 2 falls in the last year or 1 fall with injury or currently using an Ambulatory Assistive Device (Walker, Cane, Wheelchair, Crutches, etc.)? No PATIENT GENDER DATA: Female. status: : No status: NO. PATIENT RELEVANT IMPLANT DATA REVIEWED: Not Applicable RADIOLOGY DEPARTMENT: CT; Exam(s) Completed: Abdomen/Pelvis PERIPHERAL IV DATA: Not applicable SIGNED BY: JASS Pisano February 05, 2023 8:52 AM [facility] 02-05-2023 History of Present illness Narrative Radiology Service Progress Note PATIENT NAME: Sangeetha Redd DATE OF SERVICE: February 05, 2023 TIME: 8:52 AM PATIENT IDENTITY VERIFICATION COMPLETED USING TWO (2) IDENTIFIERS: Name and Date of confirmed by patient verbally. FALL SCREENING: Has the patient had 2 falls in the last year or 1 fall with injury or currently using an Ambulatory Assistive Device (Walker, Cane, Wheelchair, Crutches, etc.)? No PATIENT GENDER DATA: Female. status: : No status: NO. PATIENT RELEVANT IMPLANT DATA REVIEWED: Not Applicable RADIOLOGY DEPARTMENT: CT; Exam(s) Completed: Abdomen/Pelvis PERIPHERAL IV DATA: Not applicable SIGNED BY: JASS Pisano February 05, 2023 8:52 AM documented in this encounter [facility] 02-02-2023 Note HNO ID: [id number] Author: 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 APRN.SOCIOLOGY PROFESSOR Service: ? Author Type: Nurse Practitioner Type: Progress Notes Filed: 02/04/2023 11:46 AM Note Text: Chief Complaint Patient presents with: Hematuria: On and off sinvce last and rt side hurts , nausea with pain HPI Sangeetha Redd is a 43 year old female who presents here today for Above Complaints.. Sangeetha is an established patient of Dr. [facility], and myself. Concerns today... Hematuria--- 1 week ago started with R sided mild cramping and R flank pain intermittently. noticed blood in urine. Thursday, symptoms worsened into more significant pain to back and side and bloating to abd. Pt reports dull ache off and on and then intermittent shooting pain wrapping around R side. Prone to kidney stone, has a history of 9 total kidney stones in her past. Reports pain is not as bad as priors. CT flank scan in April shows a 4 mm non-obstructing R kidney stone. Pt reports she is pretty sure she never did pass this and symptoms just resolved. Was given flomax to try to pass on her own but was too scared to take this due to anticipated pain. Every kidney stone, patient has had to get a stent placed. Pt denies any UTI symptoms such as dysuria or urinary urgency or frequency. No other concerns or complaints. Past medical history, appointments, medications, allergies reviewed. Previous Medical History PAST MEDICAL HISTORY Diagnosis Date Anxiety Cerebral aneurysm Complicated migraine Endometriosis 75% improvement in abdominal pain post lap surgery Hypothyroidism IBS (irritable bowel syndrome) Insulin resistance Lactose intolerance in adult Left thyroid nodule 12/2020 repeat thyroid US 12/2021 Low HDL (under 40) Low serum progesterone worsening symptoms with progesterone rx Lumbar disc disease 05/13/2010 Migraines CADENCE (obstructive sleep apnea) Last polysomnogram in 2012, last use in 2012 Personal history of kidney stones Polycystic ovary syndrome 06/19/2010 Protein S deficiency (HCC) 2007 clotting disorder PUD (peptic ulcer disease) 2009 treated medically, repeat EGD neg in 2014 Renal calculi 2009 associated to low citric acid, h/o hypercalciuria Rosacea 06/19/2010 Shingles 2010 right flank area into right upper abdomen Vitamin D deficiency Previous Surgical History PAST SURGICAL HISTORY Procedure Laterality Date APPENDECTOMY COLONOSCOPY FLX DX W/COLLJ SPEC WHEN PFRMD 08/16/2014 Colonoscopy-repeat at 50 ESOPHAGOGASTRODUODENOSCOPY TRANSORAL DIAGNOSTIC 08/16/2014 EGD LAPAROSCOPY SURG CHOLECYSTECTOMY 04/27/2003 Cholecystectomy, lap OVARIAN CYSTECTOMY Bilateral 07/30/2021 PAST SURGICAL HISTORY OF Laparoscopy for endometriosis PAST SURGICAL HISTORY OF dANDc PAST SURGICAL HISTORY OF wisdom teeth PYELOTOMY W/REMOVAL CALCULUS 04/27/2008 multiple Family History FAMILY HISTORY Problem Relation Age of Onset Breast Cancer Mother 39 Arthritis Mother Fibromyalgia other (irregular heartbeat) Mother Hypertension Maternal Grandmother Alzheimer's Disease Maternal Grandmother Arthritis Maternal Grandmother other (dementia) Maternal Grandmother Diabetes Brother type 1 Stroke Maternal Grandfather other (Eosinophilic esophagitis) Son other (Abdominal migraines) Son ADD/ADHD Daughter Arthritis Father Thyroid Father Hypertension Father Thyroid Cancer Sister Diabetes Brother Type 1 Patient Allergies ALLERGIES Allergen Reactions Aleve [Naproxen Sod* Vomiting Ibuprofen without problems Vomiting with Aleve with one time use Menthol Rash Metformin GI Upset Penicillins Swelling Current Medications Current Outpatient Medications on File Prior to Visit Medication Sig Phentermine HCl (ADIPEX-P) 37.5 mg tablet Take 1 tablet by mouth once daily for 30 days. BMI 36.91 acetaminophen 325 mg-caffeine 40 mg-butalbital 50 mg (FIORICET) per tablet Take 1 tablet by mouth every 6 hours as needed for headache for up to 30 days. vitamin b complex (B COMPLETE) tab Take 1 tablet by mouth once daily. tiZANidine (ZANAFLEX) 4 mg tablet Take 1 tablet by mouth every 8 hours as needed (muscle spasms). inhalat.spacing dev,large mask (OPTICHAMBER EVANS LG MASK) spcr USE WITH INHALER NEEDED albuterol (PROVENTIL) 2.5 mg /3 mL (0.083 %) nebulizer solution Use 3 mL via nebulizer every 4 hours as needed for wheezing/shortness of breath. Use over 5-15minutes. albuterol HFA (PROAIR HFA) 90 mcg/actuation inhaler Inhale 2 Puffs as instructed every 4 hours as needed. benzonatate (TESSALON PERLE) 100 mg capsule Take 2 capsules by mouth three times daily as needed. tamsulosin (FLOMAX) 0.4 mg Take 1 capsule by mouth daily at bedtime. For kidney stones Magnesium Oxide 250 mg magnesium tab Take 1 tablet by mouth daily at bedtime. triamcinolone acetonide (KENALOG) 0.5 % cream Apply 1 application to affected area daily at bedtim (more content not included)... [facility] 02-02-2023 History of Present illness Narrative Chief Complaint Patient presents with: Hematuria: On and off sinvce last and rt side hurts , nausea with pain HPI Sangeetha Redd is a 43 year old female who presents here today for Above Complaints.. Sangeetha is an established patient of Dr. Toledo, DO and myself. Concerns today... Hematuria--- 1 week ago started with R sided mild cramping and R flank pain intermittently. noticed blood in urine. Thursday, symptoms worsened into more significant pain to back and side and bloating to abd. Pt reports dull ache off and on and then intermittent shooting pain wrapping around R side. Prone to kidney stone, has a history of 9 total kidney stones in her past. Reports pain is not as bad as priors. CT flank scan in April shows a 4 mm non-obstructing R kidney stone. Pt reports she is pretty sure she never did pass this and symptoms just resolved. Was given flomax to try to pass on her own but was too scared to take this due to anticipated pain. Every kidney stone, patient has had to get a stent placed. Pt denies any UTI symptoms such as dysuria or urinary urgency or frequency. No other concerns or complaints. Past medical history, appointments, medications, allergies reviewed. Previous Medical History PAST MEDICAL HISTORY Diagnosis Date Anxiety Cerebral aneurysm Complicated migraine Endometriosis 75% improvement in abdominal pain post lap surgery Hypothyroidism IBS (irritable bowel syndrome) Insulin resistance Lactose intolerance in adult Left thyroid nodule 12/2020 repeat thyroid US 12/2021 Low HDL (under 40) Low serum progesterone worsening symptoms with progesterone rx Lumbar disc disease 05/13/2010 Migraines CADENCE (obstructive sleep apnea) Last polysomnogram in 2012, last use in 2012 Personal history of kidney stones Polycystic ovary syndrome 06/19/2010 Protein S deficiency (HCC) 2007 clotting disorder PUD (peptic ulcer disease) 2009 treated medically, repeat EGD neg in 2014 Renal calculi 2009 associated to low citric acid, h/o hypercalciuria Rosacea 06/19/2010 Shingles 2010 right flank area into right upper abdomen Vitamin D deficiency Previous Surgical History PAST SURGICAL HISTORY Procedure Laterality Date APPENDECTOMY COLONOSCOPY FLX DX W/COLLJ SPEC WHEN PFRMD 08/16/2014 Colonoscopy-repeat at 50 ESOPHAGOGASTRODUODENOSCOPY TRANSORAL DIAGNOSTIC 08/16/2014 EGD LAPAROSCOPY SURG CHOLECYSTECTOMY 04/27/2003 Cholecystectomy, lap OVARIAN CYSTECTOMY Bilateral 07/30/2021 PAST SURGICAL HISTORY OF Laparoscopy for endometriosis PAST SURGICAL HISTORY OF d&c PAST SURGICAL HISTORY OF wisdom teeth PYELOTOMY W/REMOVAL CALCULUS 04/27/2008 multiple Family History FAMILY HISTORY Problem Relation Age of Onset Breast Cancer Mother 39 Arthritis Mother Fibromyalgia other (irregular heartbeat) Mother Hypertension Maternal Grandmother Alzheimer's Disease Maternal Grandmother Arthritis Maternal Grandmother other (dementia) Maternal Grandmother Diabetes Brother type 1 Stroke Maternal Grandfather other (Eosinophilic esophagitis) Son other (Abdominal migraines) Son ADD/ADHD Daughter Arthritis Father Thyroid Father Hypertension Father Thyroid Cancer Sister Diabetes Brother Type 1 Patient Allergies ALLERGIES Allergen Reactions Aleve [Naproxen Sod* Vomiting Ibuprofen without problems Vomiting with Aleve with one time use Menthol Rash Metformin GI Upset Penicillins Swelling Current Medications Current Outpatient Medications on File Prior to Visit Medication Sig Phentermine HCl (ADIPEX-P) 37.5 mg tablet Take 1 tablet by mouth once daily for 30 days. BMI 36.91 acetaminophen 325 mg-caffeine 40 mg-butalbital 50 mg (FIORICET) per tablet Take 1 tablet by mouth every 6 hours as needed for headache for up to 30 days. vitamin b complex (B COMPLETE) tab Take 1 tablet by mouth once daily. tiZANidine (ZANAFLEX) 4 mg tablet Take 1 tablet by mouth every 8 hours as needed (muscle spasms). inhalat.spacing dev,large mask (OPTICHAMBER EVANS LG MASK) spcr USE WITH INHALER NEEDED albuterol (PROVENTIL) 2.5 mg /3 mL (0.083 %) nebulizer solution Use 3 mL via nebulizer every 4 hours as needed for wheezing/shortness of breath. Use over 5-15minutes. albuterol HFA (PROAIR HFA) 90 mcg/actuation inhaler Inhale 2 Puffs as instructed every 4 hours as needed. benzonatate (TESSALON PERLE) 100 mg capsule Take 2 capsules by mouth three times daily as needed. tamsulosin (FLOMAX) 0.4 mg Take 1 capsule by mouth daily at bedtime. For kidney stones Magnesium Oxide 250 mg magnesium tab Take 1 tablet by mouth daily at bedtime. triamcinolone acetonide (KENALOG) 0.5 % cream Apply 1 application to affected area daily at bedtime. On left lower leg skin lesion at ankle. Apply sparingly. Avoid face/skin fold. levothyroxine (SYNTHROID) 88 mcg tablet Take 1 tablet by mouth once daily. and skip 1 day weekly. carbonyl iron 15 mg chew Take 1 tablet by mouth twice daily with meals. gabapentin (NEURONTIN) 100 mg capsule Take 1 capsule by mouth three times daily as needed (nerve pain, low back pain) for up to 30 days. Cholecalciferol, Vitamin D3, 125 mcg (5,000 unit) cap Take 1 capsule by mouth once daily. levalbuterol tartrate HFA 45 mcg/actuation inhaler Inhale 1-2 Puffs as instructed every 6 hours as needed for Wheezing/Shortness of Breath. ondansetron orally disintegrating (ZOFRAN ODT) 4 mg disintegrating tablet Take 1 tablet by mouth every 6 hours as needed for Nausea/Vomiting. triamcinolone acetonide (NASACORT) 55 mcg nasal inhaler Use 2 Sprays in the nose once daily. In the morning No current facility-administered medications on file prior to visit. Social History Social History Tobacco Use Smoking status: Never Smokeless tobacco: Never Vaping Use Vaping Use: Never used Substance Use Topics Alcohol use: Yes Comment: twice a year- socially Drug use: No REVIEW OF SYSTEMS: as above Reviewed relevant PMHx, PSHx, Social Hx, current medications and allergies. Review of Symptoms REVIEW OF SYSTEMS See HPI. EXAM: BP 120/66 (BP Site: Left Arm, BP Position: Sitting, BP Cuff Size: Large Adult) Pulse 68 Resp 14 Wt 88.1 kg (194 lb 3.2 oz) LMP 05/30/2019 (Exact Date) BMI 37.93 kg/m General Appearance: Well appearing, alert, in no acute distress, well-hydrated, well nourished.. Skin: Skin color, texture, turgor normal, no suspicious rashes or lesions. Head: Normocephalic, no masses, lesions, tenderness or abnormalities. Lungs: Lungs clear to auscultation. No wheezing, rhonchi, rales.. Heart: RRR without murmur, gallop, or rubs. No ectopy. Abdomen: Normal abdominal exam, Abdomen soft, non-tender. Bowel sounds normal. No masses, organomegaly, Negative CVA tenderness. Health Maintenance List Hepatitis B Vaccine(1 of 3 - 3-dose series) Never done Hepatitis C Screening Never done HIV Screening Never done DTaP,Tdap,Td Vaccine(1 - Tdap) Never done Mammogram Screening due on 06/11/2022 Influenza Vaccine(1) due on 12/26/2022 Covid-19 Vaccine(1) due on 05/12/2023 Annual PCP Team Chronic Disease Visit due on 12/03/2023 Pap Testing due on 06/25/2025 HPV Testing due on 06/25/2025 Depression Assessment Completed HPV Vaccine Aged Out ASSESSMENT/PLAN: 1. Gross hematuria - ICD9: 599.71, ICD10: R31.0 (primary diagnosis) UA + for blood only. No signs of UTI. CT flank to compare to prior in April. Consult to urology d/t recurrence. Toradol injection in office today for pain relief. If symptoms worsen, patient needs to go to ER. Due to mild pain currently, will manage outpatient as tolerated. - UA DIP, URINE (POC) - URINE CULTURE - UA DIP, URINE (POC) - CT FLANK WO IVCON - CONSULT TO UROLOGY - KETOROLAC 60 MG/2 ML INTRAMUSCULAR SOLUTION 2. Kidney stone - ICD9: 592.0, ICD10: N20.0 See above. Kidney stone of 4 mm dx in April. CT flank to see if still there. - UA DIP, URINE (POC) - URINE CULTURE - CT FLANK WO IVCON - CONSULT TO UROLOGY - KETOROLAC 60 MG/2 ML INTRAMUSCULAR SOLUTION 3. Impaired concentration - ICD9: 799.51, ICD10: R41.840 Refilled. Stable. - DEXTROAMPHETAMINE-AMPHETAMINE 5 MG TABLET PDMP website checked and validated. All prescriptions have been APPROPRIATELY filled. No suspicious activity was identified. 02/02/2023 by 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 APRN.CNP 4. Flank pain - ICD9: 789.09, ICD10: R10.9 See plan above. - CT FLANK WO IVCON - CONSULT TO UROLOGY RTO as needed. Prescription instructions reviewed with patient as applicable. Potential red flag symptoms discussed with the patient. Reviewed appropriate action plan to take if red flag symptoms occur. Patient agreeable to treatment plan. Brandi Rasmussen APRN.CNP [address] [place] [address] documented in this encounter [facility] 01-29-2023 Miscellaneous Notes PDMP website checked and validated. All prescriptions have been APPROPRIATELY filled. No suspicious activity was identified. 01/29/2023 by 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 APRN.CNP The following approved medication requests have been transmitted electronically. Requested Prescriptions Signed Prescriptions Disp Refills Phentermine HCl (ADIPEX-P) 37.5 mg tablet 30 tablet 2 Sig: Take 1 tablet by mouth once daily for 30 days. BMI 36.91 Authorizing Provider: BRANDI QUINTEROS APRN.CNP Sima--12/02/22 Nov--03/03/23 Last refill--12/31/22 30 WITH 2 REFILLS Last labs--05/19/22 documented in this encounter [facility] 12-30-2022 Miscellaneous Notes Patient has been identified by name and date of : Yes Patient phones for refill(s): Requested Prescriptions Pending Prescriptions Disp Refills vitamin b complex (B COMPLETE) tab 90 tablet 1 Sig: Take 1 tablet by mouth once daily. Phentermine HCl (ADIPEX-P) 37.5 mg tablet 30 tablet 2 Sig: Take 1 tablet by mouth once daily for 30 days. BMI 36.91 Date of last office visit in primary care: 12/02/2022 Please advise. Thank you. Dayami Fang LPN documented in this encounter [facility] 12-30-2022 Miscellaneous Notes Patient has been identified by name and date of : Yes Requested Prescriptions Pending Prescriptions Disp Refills tiZANidine (ZANAFLEX) 4 mg tablet 15 tablet 0 Sig: Take 1 tablet by mouth every 8 hours as needed (muscle spasms). RX INSTRUCTIONS: Patient aware RX will be sent to pharmacy. No need to notify patient. Patient last office visit: 12/02/22 Patient next office visit: 03/03/23 Bev Lu MA documented in this encounter [facility] 12-02-2022 Note HNO ID: [id number] Author: Jose Luis [facility], DO Service: ? Author Type: Physician Type: Progress Notes Filed: 12/03/2022 7:07 AM Note Text: CC: Sangeetha Redd is a 42 year old female who presents to the office to establish care. HPI: Obesity, weight loss from originally 240 lbs to 189 lbs with use of dietary changes and use of Adipex in the recent past, is still dietary changing with decreased sugar intake and decreased calorie intake as well as regular exercise. Would like to restart Adipex again since tolerates this medication well without adverse SE. BLOOD PRESSURE is well controlled. PAST MEDICAL HISTORY Diagnosis Date Anxiety Cerebral aneurysm Complicated migraine Endometriosis 75% improvement in abdominal pain post lap surgery Hypothyroidism IBS (irritable bowel syndrome) Insulin resistance Lactose intolerance in adult Left thyroid nodule 12/2020 repeat thyroid US 12/2021 Low HDL (under 40) Low serum progesterone worsening symptoms with progesterone rx Lumbar disc disease 05/13/2010 Migraines CADENCE (obstructive sleep apnea) Last polysomnogram in 2012, last use in 2012 Personal history of kidney stones Polycystic ovary syndrome 06/19/2010 Protein S deficiency (HCC) 2007 clotting disorder PUD (peptic ulcer disease) 2009 treated medically, repeat EGD neg in 2014 Renal calculi 2009 associated to low citric acid, h/o hypercalciuria Rosacea 06/19/2010 Shingles 2010 right flank area into right upper abdomen Vitamin D deficiency PAST SURGICAL HISTORY Procedure Laterality Date APPENDECTOMY COLONOSCOPY FLX DX W/COLLJ SPEC WHEN PFRMD 08/16/2014 Colonoscopy-repeat at 50 ESOPHAGOGASTRODUODENOSCOPY TRANSORAL DIAGNOSTIC 08/16/2014 EGD LAPAROSCOPY SURG CHOLECYSTECTOMY 04/27/2003 Cholecystectomy, lap OVARIAN CYSTECTOMY Bilateral 07/30/2021 PAST SURGICAL HISTORY OF Laparoscopy for endometriosis PAST SURGICAL HISTORY OF dANDc PAST SURGICAL HISTORY OF wisdom teeth PYELOTOMY W/REMOVAL CALCULUS 04/27/2008 multiple Social History: Social History Tobacco Use Smoking status: Never Smokeless tobacco: Never Vaping Use Vaping Use: Never used Substance Use Topics Alcohol use: Yes Comment: twice a year- socially Drug use: No FAMILY HISTORY Problem Relation Age of Onset Breast Cancer Mother 39 Arthritis Mother Fibromyalgia other (irregular heartbeat) Mother Hypertension Maternal Grandmother Alzheimer's Disease Maternal Grandmother Arthritis Maternal Grandmother other (dementia) Maternal Grandmother Diabetes Brother type 1 Stroke Maternal Grandfather other (Eosinophilic esophagitis) Son other (Abdominal migraines) Son ADD/ADHD Daughter Arthritis Father Thyroid Father Hypertension Father Thyroid Cancer Sister Diabetes Brother Type 1 Current Outpatient prescriptions: dextroamphetamine-amphetamine (ADDERALL) 10 mg tablet Take 1 tablet by mouth once daily for 30 days. dextroamphetamine-amphetamine (ADDERALL) 5 mg tablet Take 1 tablet by mouth once daily as needed for up to 30 days. In the afternoon, in addition to am 10mg dose. inhalat.spacing dev,large mask (OPTICHAMBER EVANS LG MASK) spcr USE WITH INHALER NEEDED albuterol (PROVENTIL) 2.5 mg /3 mL (0.083 %) nebulizer solution Use 3 mL via nebulizer every 4 hours as needed for wheezing/shortness of breath. Use over 5-15minutes. albuterol HFA (PROAIR HFA) 90 mcg/actuation inhaler Inhale 2 Puffs as instructed every 4 hours as needed. benzonatate (TESSALON PERLE) 100 mg capsule Take 2 capsules by mouth three times daily as needed. vitamin b complex (B COMPLETE) tab Take 1 tablet by mouth once daily. tamsulosin (FLOMAX) 0.4 mg Take 1 capsule by mouth daily at bedtime. For kidney stones Magnesium Oxide 250 mg magnesium tab Take 1 tablet by mouth daily at bedtime. triamcinolone acetonide (KENALOG) 0.5 % cream Apply 1 application to affected area daily at bedtime. On left lower leg skin lesion at ankle. Apply sparingly. Avoid face/skin fold. tiZANidine (ZANAFLEX) 4 mg tablet Take 1 tablet by mouth every 8 hours as needed (muscle spasms). levothyroxine (SYNTHROID) 88 mcg tablet Take 1 tablet by mouth once daily. and skip 1 day weekly. carbonyl iron 15 mg chew Take 1 tablet by mouth twice daily with meals. gabapentin (NEURONTIN) 100 mg capsule Take 1 capsule by mouth three times daily as needed (nerve pain, low back pain) for up to 30 days. Cholecalciferol, Vitamin D3, 125 mcg (5,000 unit) cap Take 1 capsule by mouth once daily. levalbuterol tartrate HFA 45 mcg/actuation inhaler Inhale 1-2 Puffs as instructed every 6 hours as needed for Wheezing/Shortness of Breath. ondansetron orally disintegrating (ZOFRAN ODT) 4 mg disintegrating tablet Take 1 tablet by mouth every 6 hours as needed for Nausea/Vomiting. triamcinolone acetonide (NASACORT) 55 mcg nasal inhaler Use 2 Sprays in the nose once daily. In the morning LORaze (more content not included)... [facility] 12-02-2022 History of Present illness Narrative CC: Sangeetha Redd is a 42 year old female who presents to the office to establish care. HPI: Obesity, weight loss from originally 240 lbs to 189 lbs with use of dietary changes and use of Adipex in the recent past, is still dietary changing with decreased sugar intake and decreased calorie intake as well as regular exercise. Would like to restart Adipex again since tolerates this medication well without adverse SE. BLOOD PRESSURE is well controlled. PAST MEDICAL HISTORY Diagnosis Date Anxiety Cerebral aneurysm Complicated migraine Endometriosis 75% improvement in abdominal pain post lap surgery Hypothyroidism IBS (irritable bowel syndrome) Insulin resistance Lactose intolerance in adult Left thyroid nodule 12/2020 repeat thyroid US 12/2021 Low HDL (under 40) Low serum progesterone worsening symptoms with progesterone rx Lumbar disc disease 05/13/2010 Migraines CADENCE (obstructive sleep apnea) Last polysomnogram in 2012, last use in 2012 Personal history of kidney stones Polycystic ovary syndrome 06/19/2010 Protein S deficiency (HCC) 2007 clotting disorder PUD (peptic ulcer disease) 2009 treated medically, repeat EGD neg in 2014 Renal calculi 2009 associated to low citric acid, h/o hypercalciuria Rosacea 06/19/2010 Shingles 2010 right flank area into right upper abdomen Vitamin D deficiency PAST SURGICAL HISTORY Procedure Laterality Date APPENDECTOMY COLONOSCOPY FLX DX W/COLLJ SPEC WHEN PFRMD 08/16/2014 Colonoscopy-repeat at 50 ESOPHAGOGASTRODUODENOSCOPY TRANSORAL DIAGNOSTIC 08/16/2014 EGD LAPAROSCOPY SURG CHOLECYSTECTOMY 04/27/2003 Cholecystectomy, lap OVARIAN CYSTECTOMY Bilateral 07/30/2021 PAST SURGICAL HISTORY OF Laparoscopy for endometriosis PAST SURGICAL HISTORY OF d&c PAST SURGICAL HISTORY OF wisdom teeth PYELOTOMY W/REMOVAL CALCULUS 04/27/2008 multiple Social History: Social History Tobacco Use Smoking status: Never Smokeless tobacco: Never Vaping Use Vaping Use: Never used Substance Use Topics Alcohol use: Yes Comment: twice a year- socially Drug use: No FAMILY HISTORY Problem Relation Age of Onset Breast Cancer Mother 39 Arthritis Mother Fibromyalgia other (irregular heartbeat) Mother Hypertension Maternal Grandmother Alzheimer's Disease Maternal Grandmother Arthritis Maternal Grandmother other (dementia) Maternal Grandmother Diabetes Brother type 1 Stroke Maternal Grandfather other (Eosinophilic esophagitis) Son other (Abdominal migraines) Son ADD/ADHD Daughter Arthritis Father Thyroid Father Hypertension Father Thyroid Cancer Sister Diabetes Brother Type 1 Current Outpatient prescriptions: dextroamphetamine-amphetamine (ADDERALL) 10 mg tablet Take 1 tablet by mouth once daily for 30 days. dextroamphetamine-amphetamine (ADDERALL) 5 mg tablet Take 1 tablet by mouth once daily as needed for up to 30 days. In the afternoon, in addition to am 10mg dose. inhalat.spacing dev,large mask (OPTICHAMBER EVANS LG MASK) spcr USE WITH INHALER NEEDED albuterol (PROVENTIL) 2.5 mg /3 mL (0.083 %) nebulizer solution Use 3 mL via nebulizer every 4 hours as needed for wheezing/shortness of breath. Use over 5-15minutes. albuterol HFA (PROAIR HFA) 90 mcg/actuation inhaler Inhale 2 Puffs as instructed every 4 hours as needed. benzonatate (TESSALON PERLE) 100 mg capsule Take 2 capsules by mouth three times daily as needed. vitamin b complex (B COMPLETE) tab Take 1 tablet by mouth once daily. tamsulosin (FLOMAX) 0.4 mg Take 1 capsule by mouth daily at bedtime. For kidney stones Magnesium Oxide 250 mg magnesium tab Take 1 tablet by mouth daily at bedtime. triamcinolone acetonide (KENALOG) 0.5 % cream Apply 1 application to affected area daily at bedtime. On left lower leg skin lesion at ankle. Apply sparingly. Avoid face/skin fold. tiZANidine (ZANAFLEX) 4 mg tablet Take 1 tablet by mouth every 8 hours as needed (muscle spasms). levothyroxine (SYNTHROID) 88 mcg tablet Take 1 tablet by mouth once daily. and skip 1 day weekly. carbonyl iron 15 mg chew Take 1 tablet by mouth twice daily with meals. gabapentin (NEURONTIN) 100 mg capsule Take 1 capsule by mouth three times daily as needed (nerve pain, low back pain) for up to 30 days. Cholecalciferol, Vitamin D3, 125 mcg (5,000 unit) cap Take 1 capsule by mouth once daily. levalbuterol tartrate HFA 45 mcg/actuation inhaler Inhale 1-2 Puffs as instructed every 6 hours as needed for Wheezing/Shortness of Breath. ondansetron orally disintegrating (ZOFRAN ODT) 4 mg disintegrating tablet Take 1 tablet by mouth every 6 hours as needed for Nausea/Vomiting. triamcinolone acetonide (NASACORT) 55 mcg nasal inhaler Use 2 Sprays in the nose once daily. In the morning LORazepam (ATIVAN) 0.5 mg Take 1 tablet by mouth once daily as needed for up to 30 days. Allergies: ALLERGIES Allergen Reactions Aleve [Naproxen Sod* Vomiting Ibuprofen without problems Vomiting with Aleve with one time use Menthol Rash Metformin GI Upset Penicillins Swelling ROS: See HPI PE: 12/02/22 1533 BP: 124/70 Pulse: 68 Resp: 12 Temp: 36.6 C (97.8 F) TempSrc: Left Tympanic Weight: 85.7 kg (189 lb) Gen: A&O, NAD, non-toxic appearing, Pleasant, cooperative HEENT: NT/AC, PERRLA, EOMs intact b/l, nares clear and patent b/l, pharynx without erythema, exudate or lesions. Uvula midline, MMM. EACs without erythema or debris. TMs pearly goncalves with intact landmarks b/l. Neck: supple, No cervical LAD, no thyromegaly, no carotid bruits CV: RRR, normal S1 and S2, no murmurs, no gallops, no rubs, Pulses 2+ and symmetric in UE and LE b/l Lungs: normal respiratory effort, CTA b/l, no wheezing or rhonchi or rales Abd: soft, central obesity, NT, ND, +BS, no hepatosplenomegaly MS: FROM all 4 extremities Neuro: CN II-XII intact b/l Skin: warm, dry, intact, No rashes or lesions on exposed skin. No edema, normal pulses ASSESSMENT/PLAN: 1. Obesity, Class II, BMI 35-39.9 - ICD9: 278.00, ICD10: E66.9 (primary diagnosis) Weight decreasing - Behavioral intervention, - Pharmacological intervention, - PSMF, - Eat well program, - Continue current medications, and - Add Phentermine- has tolerated medication well in the past. - PHENTERMINE 37.5 MG TABLET 2. Impaired concentration - ICD9: 799.51, ICD10: R41.840 - rx refilled, stable - LORAZEPAM 0.5 MG TABLET 3. Anxiety disorder, unspecified type - ICD9: 300.00, ICD10: F41.9 rx refilled, stable - LORAZEPAM 0.5 MG TABLET 4. Hypothyroidism, acquired - ICD9: 244.9, ICD10: E03.9 - Instructed patient on importance of taking on an empty stomach either first thing in the morning or at bedtime. Stable - Behavioral intervention, - PSMF, - Eat well program, and - Continue current medications Jose Luis Toledo DO PDMP website checked and validated. All prescriptions have been APPROPRIATELY filled. No suspicious activity was identified. 12/03/2022 by Jose Luis Toledo DO To ER if develops chest pain, shortness of breath, or severe worsening of symptoms. Discussed risks, benefits, alternatives, and potential side effects of medications. Patient expressed understanding and agreed with the plan. Jose Luis Toledo DO [address] [place] [address] documented in this encounter [facility] 11-10-2022 Note HNO ID: [id number] Author: Shobha Perez APRN.SOCIOLOGY PROFESSOR Service: ? Author Type: Nurse Practitioner Type: Progress Notes Filed: 11/10/2022 12:41 PM Note Text: This is a 42 year old female who presents today with: No chief complaint on file. HISTORY OF PRESENT ILLNESS: Sangeetha Redd is a 42 year old female. No chief complaint on file. Pt presents today for 3-month recheck. She has been on the phentermine for 3 months. She has tried different thinks with diet. Has done weight watchers and why weight in the past. Starting weight 06/30 - 194. BMI -- 37.89 Today's weight - 194. BMI 37.97 Refers that the phentermine works better than the adderal for her focusing. PAST MEDICAL HISTORY: PAST MEDICAL HISTORY Diagnosis Date Anxiety Cerebral aneurysm Complicated migraine Endometriosis 75% improvement in abdominal pain post lap surgery Hypothyroidism IBS (irritable bowel syndrome) Insulin resistance Lactose intolerance in adult Left thyroid nodule 12/2020 repeat thyroid US 12/2021 Low HDL (under 40) Low serum progesterone worsening symptoms with progesterone rx Lumbar disc disease 05/13/2010 Migraines CADENCE (obstructive sleep apnea) Last polysomnogram in 2012, last use in 2012 Personal history of kidney stones Polycystic ovary syndrome 06/19/2010 Protein S deficiency (HCC) 2008 clotting disorder PUD (peptic ulcer disease) 2009 treated medically, repeat EGD neg in 2014 Renal calculi 2009 associated to low citric acid, h/o hypercalciuria Rosacea 06/19/2010 Shingles 2010 right flank area into right upper abdomen Vitamin D deficiency PAST SURGICAL HISTORY Procedure Laterality Date APPENDECTOMY COLONOSCOPY FLX DX W/COLLJ SPEC WHEN PFRMD 08/16/2014 Colonoscopy-repeat at 50 ESOPHAGOGASTRODUODENOSCOPY TRANSORAL DIAGNOSTIC 08/16/2014 EGD LAPAROSCOPY SURG CHOLECYSTECTOMY 04/27/2003 Cholecystectomy, lap OVARIAN CYSTECTOMY Bilateral 07/30/2021 PAST SURGICAL HISTORY OF Laparoscopy for endometriosis PAST SURGICAL HISTORY OF dANDc PAST SURGICAL HISTORY OF wisdom teeth PYELOTOMY W/REMOVAL CALCULUS 04/27/2008 multiple ALLERGIES Aleve [Naproxen Sodium], Menthol, Metformin, and Penicillins MEDICATIONS Current Outpatient Medications Medication Sig Phentermine HCl (ADIPEX-P) 37.5 mg tablet Take 1 tablet by mouth once daily for 30 days. BMI 38.32 albuterol HFA (PROAIR HFA) 90 mcg/actuation inhaler Inhale 2 Puffs as instructed every 4 hours as needed. vitamin b complex (B COMPLETE) tab Take 1 tablet by mouth once daily. tamsulosin (FLOMAX) 0.4 mg Take 1 capsule by mouth daily at bedtime. For kidney stones Magnesium Oxide 250 mg magnesium tab Take 1 tablet by mouth daily at bedtime. triamcinolone acetonide (KENALOG) 0.5 % cream Apply 1 application to affected area daily at bedtime. On left lower leg skin lesion at ankle. Apply sparingly. Avoid face/skin fold. tiZANidine (ZANAFLEX) 4 mg tablet Take 1 tablet by mouth every 8 hours as needed (muscle spasms). levothyroxine (SYNTHROID) 88 mcg tablet Take 1 tablet by mouth once daily. and skip 1 day weekly. carbonyl iron 15 mg chew Take 1 tablet by mouth twice daily with meals. Cholecalciferol, Vitamin D3, 125 mcg (5,000 unit) cap Take 1 capsule by mouth once daily. levalbuterol tartrate HFA 45 mcg/actuation inhaler Inhale 1-2 Puffs as instructed every 6 hours as needed for Wheezing/Shortness of Breath. ondansetron orally disintegrating (ZOFRAN ODT) 4 mg disintegrating tablet Take 1 tablet by mouth every 6 hours as needed for Nausea/Vomiting. triamcinolone acetonide (NASACORT) 55 mcg nasal inhaler Use 2 Sprays in the nose once daily. In the morning dextroamphetamine-amphetamine (ADDERALL) 10 mg tablet Take 1 tablet by mouth once daily for 30 days. dextroamphetamine-amphetamine (ADDERALL) 5 mg tablet Take 1 tablet by mouth once daily as needed for up to 30 days. In the afternoon, in addition to am 10mg dose. inhalat.spacing dev,large mask (OPTICHAMBER EVANS LG MASK) spcr USE WITH INHALER NEEDED albuterol (PROVENTIL) 2.5 mg /3 mL (0.083 %) nebulizer solution Use 3 mL via nebulizer every 4 hours as needed for wheezing/shortness of breath. Use over 5-15minutes. benzonatate (TESSALON PERLE) 100 mg capsule Take 2 capsules by mouth three times daily as needed. gabapentin (NEURONTIN) 100 mg capsule Take 1 capsule by mouth three times daily as needed (nerve pain, low back pain) for up to 30 days. No current facility-administered medications for this visit. FAMILY HISTORY Problem Relation Age of Onset Breast Cancer Mother 39 Arthritis Mother Fibromyalgia other (irregular heartbeat) Mother Hypertension Maternal Grandmother Alzheimer's Disease Maternal Grandmother Arthritis Maternal Grandmother other (dementia) Maternal Grandmother Diabetes Brother type 1 Stroke Maternal Grandfather other (Eosinophilic esophagitis) Son other (Abdominal migraines) Son ADD/A (more content not included)... [facility] 10-24-2022 Miscellaneous Notes OK to refill as ordered Reed Myers MD Last office visit: F/u scheduled: 11/10/22 Last refilled on: Adipex #30 on 09/30/22 Zenaida Cheney Ma documented in this encounter [facility] 10-13-2022 Miscellaneous Notes Patients appointment was rescheduled from 10/30/22 to 11/10/22 will need medications before this date. This is the 3 month appt . Pt will call a few days prior to appt for refill. documented in this encounter [facility] 08-28-2022 Miscellaneous Notes The following approved medication requests have been transmitted electronically. Requested Prescriptions Signed Prescriptions Disp Refills dextroamphetamine-amphetamine (ADDERALL) 5 mg tablet 30 tablet 0 Sig: Take 1 tablet by mouth once daily as needed for up to 30 days. In the afternoon, in addition to am 10mg dose. Authorizing Provider: ROXY FLORES Phentermine HCl (ADIPEX-P) 37.5 mg tablet 30 tablet 0 Sig: Take 1 tablet by mouth once daily for 30 days. BMI 38.32 Authorizing Provider: ORXY FLORES APRN.[facility] PDMP website checked and validated. All prescriptions have been APPROPRIATELY filled. No suspicious activity was identified. 08/28/2022 by Roxy Flores CNP. Patient phones requesting refills as follows: Requested Prescriptions Pending Prescriptions Disp Refills dextroamphetamine-amphetamine (ADDERALL) 5 mg tablet 30 tablet 0 Sig: Take 1 tablet by mouth once daily as needed for up to 30 days. In the afternoon, in addition to am 10mg dose. Phentermine HCl (ADIPEX-P) 37.5 mg tablet 30 tablet 0 Sig: Take 1 tablet by mouth once daily for 30 days. BMI 38.32 SIMA-08/14/22 Labs-05/19/22 NOV-10/30/22 Please review and advise. Chelsea Sanchez LPN documented in this encounter [facility] 08-14-2022 Nurse Note Patient given albuterol nebulizer treatment in office and tolerated well. Giana Alicea MA documented in this encounter [facility] 08-14-2022 Note HNO ID: [id number] Author: RT Jonathan(R) Service: ? Author Type: Supervisor Pre Wave Type: Progress Notes Filed: 08/14/2022 12:36 PM Note Text: Radiology Service Progress Note PATIENT NAME: Sangeetha Redd DATE OF SERVICE: August 14, 2022 TIME: 12:28 PM PATIENT IDENTITY VERIFICATION COMPLETED USING TWO (2) IDENTIFIERS: Name and Date of confirmed by patient verbally. FALL SCREENING: Has the patient had 2 falls in the last year or 1 fall with injury or currently using an Ambulatory Assistive Device (Walker, Cane, Wheelchair, Crutches, etc.)? No PATIENT GENDER DATA: Female. status: : No status: NO. PATIENT RELEVANT IMPLANT DATA REVIEWED: Yes RADIOLOGY DEPARTMENT: General X-ray: Exam(s) Completed: Chest X-Ray PERIPHERAL IV DATA: Not applicable SIGNED BY: RT Jonathan(R) August 14, 2022 12:28 PM [facility] 08-14-2022 Note HNO ID: [id number] Author: Roxy Flores APRN.JOI Service: ? Author Type: Nurse Practitioner Type: Progress Notes Filed: 08/14/2022 4:43 PM Note Text: Chief Complaint Patient presents with: Follow Up: EC visit 08/07- viral bronchitis- still has cough AND SOB. Completed prednisone yesterday. HPI Sangeetha Redd is a 42 year old female who presents here today for Above Complaints.. Per [facility] visit with Kay Chong CNP on 08/07/2022: HPI Sangeetha Redd is a 42 year old female who presents today for CC of st for 2 weeks, ear pain for 1 day. Has tried otc medication for relief. Symptoms are worsened by nothing. Risk factors sick exposures at school. .Patient presents with: Chest Congestion: Cough x 4 days ASSESSMENT/PLAN: 1. Viral bronchitis - ICD9: 466.0, ICD10: J20.8 (primary diagnosis) - Discussed supportive care - Limit exposure to smoke and other inhaled irritants - Discussed possible red flags and when to seek medical attention - Follow up in 3-5 days or sooner if no better or worse -If you experience chest pain/shortness of breath go to ER - ALBUTEROL SULFATE HFA 90 MCG/ACTUATION AEROSOL INHALER - COVID WITH FLUA+B, ROUTINE 2. Sore throat - ICD9: 462, ICD10: J02.9 Neg, viral - STREP A MOLECULAR (POC) 3. Acute cough - ICD9: 786.2, ICD10: R05.1 Xray negative - XR CHEST 2V FRONTAL/LAT IMPRESSION: No acute radiographic abnormality. Dictated by : MD Kay GUO APRN.SOCIOLOGY PROFESSOR Today: Doesn't necessarily feel sick but breathing is like a squeezing feeling. Frequent cough that is persistent and non productive. No fever. No body aches. No CP. No sore throat, but a little hoarse. Feels like she can only take small breaths because if she takes a big one things are just too tight to get air in. Albuterol inhaler does work for about 5 minutes and feels like things open up and she can breathe. Past medical history, appointments, medications, allergies reviewed. Previous Medical History PAST MEDICAL HISTORY Diagnosis Date Anxiety Cerebral aneurysm Complicated migraine Endometriosis 75% improvement in abdominal pain post lap surgery Hypothyroidism IBS (irritable bowel syndrome) Insulin resistance Lactose intolerance in adult Left thyroid nodule 12/2020 repeat thyroid US 12/2021 Low HDL (under 40) Low serum progesterone worsening symptoms with progesterone rx Lumbar disc disease 05/13/2010 Migraines CADENCE (obstructive sleep apnea) Last polysomnogram in 2012, last use in 2012 Personal history of kidney stones Polycystic ovary syndrome 06/19/2010 Protein S deficiency (HCC) 2008 clotting disorder PUD (peptic ulcer disease) 2009 treated medically, repeat EGD neg in 2014 Renal calculi 2009 associated to low citric acid, h/o hypercalciuria Rosacea 06/19/2010 Shingles 2010 right flank area into right upper abdomen Vitamin D deficiency Previous Surgical History PAST SURGICAL HISTORY Procedure Laterality Date APPENDECTOMY COLONOSCOPY FLX DX W/COLLJ SPEC WHEN PFRMD 08/16/2014 Colonoscopy-repeat at 50 ESOPHAGOGASTRODUODENOSCOPY TRANSORAL DIAGNOSTIC 08/16/2014 EGD LAPAROSCOPY SURG CHOLECYSTECTOMY 04/27/2003 Cholecystectomy, lap OVARIAN CYSTECTOMY Bilateral 07/30/2021 PAST SURGICAL HISTORY OF Laparoscopy for endometriosis PAST SURGICAL HISTORY OF dANDc PAST SURGICAL HISTORY OF wisdom teeth PYELOTOMY W/REMOVAL CALCULUS 04/27/2008 multiple Family History FAMILY HISTORY Problem Relation Age of Onset Breast Cancer Mother 39 Arthritis Mother Fibromyalgia other (irregular heartbeat) Mother Hypertension Maternal Grandmother Alzheimer's Disease Maternal Grandmother Arthritis Maternal Grandmother other (dementia) Maternal Grandmother Diabetes Brother type 1 Stroke Maternal Grandfather other (Eosinophilic esophagitis) Son other (Abdominal migraines) Son ADD/ADHD Daughter Arthritis Father Thyroid Father Hypertension Father Thyroid Cancer Sister Diabetes Brother Type 1 Patient Allergies ALLERGIES Allergen Reactions Aleve [Naproxen Sod* Vomiting Ibuprofen without problems Vomiting with Aleve with one time use Menthol Rash Metformin GI Upset Penicillins Swelling Current Medications Current Outpatient Medications on File Prior to Visit Medication Sig albuterol HFA (PROAIR HFA) 90 mcg/actuation inhaler Inhale 2 Puffs as instructed every 4 hours as needed. benzonatate (TESSALON PERLE) 100 mg capsule Take 2 capsules by mouth three times daily as needed. Phentermine HCl (ADIPEX-P) 37.5 mg tablet Take 1 tablet by mouth once daily for 30 days. BMI 38.32 dextroamphetamine-amphetamine (ADDERALL) 10 mg tablet Take 1 tablet by mouth once daily for 30 days. dextroamphetamine-amphetamine (ADDERALL) 5 mg tablet Take 1 tablet by mouth once daily as needed for up to 30 days. In the afternoon, in addition to am 10mg dose. vitamin b complex (B COMPLE (more content not included)... [facility] 08-14-2022 History of Present illness Narrative Chief Complaint Patient presents with: Follow Up: EC visit 08/07- viral bronchitis- still has cough & SOB. Completed prednisone yesterday. HPI Sangeetha Redd is a 42 year old female who presents here today for Above Complaints.. Per [facility] Care visit with Kay Chong CNP on 08/07/2022: HPI Sangeetha Redd is a 42 year old female who presents today for CC of st for 2 weeks, ear pain for 1 day. Has tried otc medication for relief. Symptoms are worsened by nothing. Risk factors sick exposures at school. .Patient presents with: Chest Congestion: Cough x 4 days ASSESSMENT/PLAN: 1. Viral bronchitis - ICD9: 466.0, ICD10: J20.8 (primary diagnosis) - Discussed supportive care - Limit exposure to smoke and other inhaled irritants - Discussed possible red flags and when to seek medical attention - Follow up in 3-5 days or sooner if no better or worse -If you experience chest pain/shortness of breath go to ER - ALBUTEROL SULFATE HFA 90 MCG/ACTUATION AEROSOL INHALER - COVID WITH FLUA+B, ROUTINE 2. Sore throat - ICD9: 462, ICD10: J02.9 Neg, viral - STREP A MOLECULAR (POC) 3. Acute cough - ICD9: 786.2, ICD10: R05.1 Xray negative - XR CHEST 2V FRONTAL/LAT IMPRESSION: No acute radiographic abnormality. Dictated by : MD Kay GUO APRN.SOCIOLOGY PROFESSOR Today: Doesn't necessarily feel sick but breathing is like a squeezing feeling. Frequent cough that is persistent and non productive. No fever. No body aches. No CP. No sore throat, but a little hoarse. Feels like she can only take small breaths because if she takes a big one things are just too tight to get air in. Albuterol inhaler does work for about 5 minutes and feels like things open up and she can breathe. Past medical history, appointments, medications, allergies reviewed. Previous Medical History PAST MEDICAL HISTORY Diagnosis Date Anxiety Cerebral aneurysm Complicated migraine Endometriosis 75% improvement in abdominal pain post lap surgery Hypothyroidism IBS (irritable bowel syndrome) Insulin resistance Lactose intolerance in adult Left thyroid nodule 12/2020 repeat thyroid US 12/2021 Low HDL (under 40) Low serum progesterone worsening symptoms with progesterone rx Lumbar disc disease 05/13/2010 Migraines CADENCE (obstructive sleep apnea) Last polysomnogram in 2012, last use in 2012 Personal history of kidney stones Polycystic ovary syndrome 06/19/2010 Protein S deficiency (HCC) 2007 clotting disorder PUD (peptic ulcer disease) 2009 treated medically, repeat EGD neg in 2014 Renal calculi 2009 associated to low citric acid, h/o hypercalciuria Rosacea 06/19/2010 Shingles 2010 right flank area into right upper abdomen Vitamin D deficiency Previous Surgical History PAST SURGICAL HISTORY Procedure Laterality Date APPENDECTOMY COLONOSCOPY FLX DX W/COLLJ SPEC WHEN PFRMD 08/16/2014 Colonoscopy-repeat at 50 ESOPHAGOGASTRODUODENOSCOPY TRANSORAL DIAGNOSTIC 08/16/2014 EGD LAPAROSCOPY SURG CHOLECYSTECTOMY 04/27/2003 Cholecystectomy, lap OVARIAN CYSTECTOMY Bilateral 07/30/2021 PAST SURGICAL HISTORY OF Laparoscopy for endometriosis PAST SURGICAL HISTORY OF d&c PAST SURGICAL HISTORY OF wisdom teeth PYELOTOMY W/REMOVAL CALCULUS 04/27/2008 multiple Family History FAMILY HISTORY Problem Relation Age of Onset Breast Cancer Mother 39 Arthritis Mother Fibromyalgia other (irregular heartbeat) Mother Hypertension Maternal Grandmother Alzheimer's Disease Maternal Grandmother Arthritis Maternal Grandmother other (dementia) Maternal Grandmother Diabetes Brother type 1 Stroke Maternal Grandfather other (Eosinophilic esophagitis) Son other (Abdominal migraines) Son ADD/ADHD Daughter Arthritis Father Thyroid Father Hypertension Father Thyroid Cancer Sister Diabetes Brother Type 1 Patient Allergies ALLERGIES Allergen Reactions Aleve [Naproxen Sod* Vomiting Ibuprofen without problems Vomiting with Aleve with one time use Menthol Rash Metformin GI Upset Penicillins Swelling Current Medications Current Outpatient Medications on File Prior to Visit Medication Sig albuterol HFA (PROAIR HFA) 90 mcg/actuation inhaler Inhale 2 Puffs as instructed every 4 hours as needed. benzonatate (TESSALON PERLE) 100 mg capsule Take 2 capsules by mouth three times daily as needed. Phentermine HCl (ADIPEX-P) 37.5 mg tablet Take 1 tablet by mouth once daily for 30 days. BMI 38.32 dextroamphetamine-amphetamine (ADDERALL) 10 mg tablet Take 1 tablet by mouth once daily for 30 days. dextroamphetamine-amphetamine (ADDERALL) 5 mg tablet Take 1 tablet by mouth once daily as needed for up to 30 days. In the afternoon, in addition to am 10mg dose. vitamin b complex (B COMPLETE) tab Take 1 tablet by mouth once daily. tamsulosin (FLOMAX) 0.4 mg Take 1 capsule by mouth daily at bedtime. For kidney stones Magnesium Oxide 250 mg magnesium tab Take 1 tablet by mouth daily at bedtime. triamcinolone acetonide (KENALOG) 0.5 % cream Apply 1 application to affected area daily at bedtime. On left lower leg skin lesion at ankle. Apply sparingly. Avoid face/skin fold. tiZANidine (ZANAFLEX) 4 mg tablet Take 1 tablet by mouth every 8 hours as needed (muscle spasms). levothyroxine (SYNTHROID) 88 mcg tablet Take 1 tablet by mouth once daily. and skip 1 day weekly. carbonyl iron 15 mg chew Take 1 tablet by mouth twice daily with meals. Cholecalciferol, Vitamin D3, 125 mcg (5,000 unit) cap Take 1 capsule by mouth once daily. levalbuterol tartrate HFA 45 mcg/actuation inhaler Inhale 1-2 Puffs as instructed every 6 hours as needed for Wheezing/Shortness of Breath. ondansetron orally disintegrating (ZOFRAN ODT) 4 mg disintegrating tablet Take 1 tablet by mouth every 6 hours as needed for Nausea/Vomiting. triamcinolone acetonide (NASACORT) 55 mcg nasal inhaler Use 2 Sprays in the nose once daily. In the morning predniSONE (DELTASONE) 10 mg tablet Take 4 tabs daily for 3 days, then 2 tabs daily for 3 days, then 1 tab daily for 3 days with food. (Patient not taking: Reported on 08/14/2022) gabapentin (NEURONTIN) 100 mg capsule Take 1 capsule by mouth three times daily as needed (nerve pain, low back pain) for up to 30 days. Current Facility-Administered Medications on File Prior to Visit Medication cosyntropin 0.25 mg injection (CORTROSYN) Social History Social History Tobacco Use Smoking status: Never Smokeless tobacco: Never Vaping Use Vaping Use: Never used Substance Use Topics Alcohol use: Yes Comment: twice a year- socially Drug use: No Review of Symptoms REVIEW OF SYSTEMS See HPI, otherwise negative EXAM: BP 124/82 (BP Site: Left Arm, BP Position: Sitting, BP Cuff Size: Regular Adult) Pulse 78 Temp 36.4 C (97.6 F) Resp 16 Wt 87.6 kg (193 lb 3.2 oz) LMP 05/30/2019 (Exact Date) SpO2 99% BMI 37.73 kg/m General Appearance: Well appearing, alert, in no acute distress, well-hydrated, well nourished.. Head: Normocephalic, no masses, lesions, tenderness or abnormalities. Eyes: Anicteric sclera. Pupils are equally round and reactive to light. Extraocular movements are intact. . Ears: External ears normal, canals clear. Nose/Sinuses: Nares normal, septum midline, mucosa normal, no drainage or sinus tenderness. Oropharynx: Lips, mucosa, and tongue normal, teeth and gums normal, oropharynx normal. Neck: Supple, no adenopathy; thyroid symmetric, normal size, no bruits. Lungs: shallow breathing, poor air movement, difficult to assess due to deep breathing causing coughing fits. Heart: RRR without murmur, gallop, or rubs. No ectopy. Lymph Nodes: No cervical lymphadenopathy and No supraclavicular lymphadenopathy. Health Maintenance List HEPATITIS B(1 of 3 - 3-dose series) Never done DTAP,TDAP,TD(1 - Tdap) Never done MAMMOGRAM due on 06/11/2022 HEPATITIS C SCREENING due on 12/05/2022 HIV SCREENING due on 12/05/2022 COVID-19 VACCINE(1) due on 05/12/2023 INFLUENZA(Season Ended) due on 12/26/2022 ANNUAL PCP TEAM CHRONIC DISEASE VISIT due on 08/01/2023 PAP TESTING due on 06/25/2025 HPV TESTING due on 06/25/2025 DEPRESSION ASSESSMENT Completed Data reviewed Previous records, office notes ASSESSMENT/PLAN: 1. Persistent cough - ICD9: 786.2, ICD10: R05.3 (primary diagnosis) New chest xray to compare with previous. Albuterol nebulizer in office did improve sx, but was not lasting. Utilize doxycycline for vaginal lesion as well as possible bacterial bronchitis. If no improvement in sx, will consider PFTs. She can continue the albuterol nebulizer at home as well as albuterol inhaler and did send in for spacer for the inhaler. Follow up in 3-5 days if no improvement. Prn codeine cough medication. - XR CHEST 2V FRONTAL/LAT - ALBUTEROL SULFATE 2.5 MG/3 ML (0.083 %) SOLUTION FOR NEBULIZATION - CODEINE 10 MG-GUAIFENESIN 100 MG/5 ML ORAL LIQUID - AEROCHAMBER PLUS Z STAT LARGE MASK 2. Bronchitis - ICD9: 490, ICD10: J40 New chest xray to compare with previous. Albuterol nebulizer in office did improve sx, but was not lasting. Utilize doxycycline for vaginal lesion as well as possible bacterial bronchitis. If no improvement in sx, will consider PFTs. She can continue the albuterol nebulizer at home as well as albuterol inhaler and did send in for spacer for the inhaler. Follow up in 3-5 days if no improvement. Prn codeine cough medication. - XR CHEST 2V FRONTAL/LAT - ALBUTEROL SULFATE 2.5 MG/3 ML (0.083 %) SOLUTION FOR NEBULIZATION - CODEINE 10 MG-GUAIFENESIN 100 MG/5 ML ORAL LIQUID - AEROCHAMBER PLUS Z STAT LARGE MASK 3. Hoarse - ICD9: 784.42, ICD10: R49.0 New chest xray to compare with previous. Albuterol nebulizer in office did improve sx, but was not lasting. Utilize doxycycline for vaginal lesion as well as possible bacterial bronchitis. If no improvement in sx, will consider PFTs. She can continue the albuterol nebulizer at home as well as albuterol inhaler and did send in for spacer for the inhaler. Follow up in 3-5 days if no improvement. Prn codeine cough medication. - XR CHEST 2V FRONTAL/LAT - ALBUTEROL SULFATE 2.5 MG/3 ML (0.083 %) SOLUTION FOR NEBULIZATION - CODEINE 10 MG-GUAIFENESIN 100 MG/5 ML ORAL LIQUID - AEROCHAMBER PLUS Z STAT LARGE MASK 4. Vaginal lesion - ICD9: 623.8, ICD10: N89.8 Chama-size to labia minora, non fluctuant. Will utilize doxycycline for this lesion as well as possible bronchitis as mentioned above. Roxy Flores APRN.CNP PDMP website checked and validated. All prescriptions have been APPROPRIATELY filled. No suspicious activity was identified. 08/14/2022 by Roxy Flores CNP. documented in this encounter [facility] 08-08-2022 Miscellaneous Notes Patient was left vm and already seen results on mychart Marti Quiles Ma Negative for COVID and flu please notify documented in this encounter [facility] 08-07-2022 Note HNO ID: [id number] Author: RT Jonathan(R) Service: ? Author Type: Supervisor Pre Wave Type: Progress Notes Filed: 08/07/2022 5:35 PM Note Text: Radiology Service Progress Note PATIENT NAME: Sangeetha TIERNEYN: [id number] DATE OF SERVICE: August 07, 2022 TIME: 5:27 PM PATIENT IDENTITY VERIFICATION COMPLETED USING TWO (2) IDENTIFIERS: Name and Date of confirmed by patient verbally. FALL SCREENING: Has the patient had 2 falls in the last year or 1 fall with injury or currently using an Ambulatory Assistive Device (Walker, Cane, Wheelchair, Crutches, etc.)? No PATIENT GENDER DATA: Female. status: : No status: NO. PATIENT RELEVANT IMPLANT DATA REVIEWED: Yes RADIOLOGY DEPARTMENT: General X-ray: Exam(s) Completed: Chest X-Ray PERIPHERAL IV DATA: Not applicable SIGNED BY: RT Jonathan(R) August 07, 2022 5:27 PM [facility] 08-07-2022 Note HNO ID: [id number] Author: Kay Chong APRN.SOCIOLOGY PROFESSOR Service: ? Author Type: Nurse Practitioner Type: Progress Notes Filed: 08/07/2022 6:14 PM Note Text: Subjective HPI HPI Sangeetha Redd is a 42 year old female who presents today for CC of st for 2 weeks, ear pain for 1 day. Has tried otc medication for relief. Symptoms are worsened by nothing. Risk factors sick exposures at school. .Patient presents with: Chest Congestion: Cough x 4 days PAST MEDICAL HISTORY Diagnosis Date Anxiety Cerebral aneurysm Complicated migraine Endometriosis 75% improvement in abdominal pain post lap surgery Hypothyroidism IBS (irritable bowel syndrome) Insulin resistance Lactose intolerance in adult Left thyroid nodule 12/2020 repeat thyroid US 12/2021 Low HDL (under 40) Low serum progesterone worsening symptoms with progesterone rx Lumbar disc disease 05/13/2010 Migraines CADENCE (obstructive sleep apnea) Last polysomnogram in 2012, last use in 2012 Personal history of kidney stones Polycystic ovary syndrome 06/19/2010 Protein S deficiency (HCC) 2007 clotting disorder PUD (peptic ulcer disease) 2010 treated medically, repeat EGD neg in 2014 Renal calculi 2009 associated to low citric acid, h/o hypercalciuria Rosacea 06/19/2010 Shingles 2010 right flank area into right upper abdomen Vitamin D deficiency PAST SURGICAL HISTORY Procedure Laterality Date APPENDECTOMY COLONOSCOPY FLX DX W/COLLJ SPEC WHEN PFRMD 08/16/2014 Colonoscopy-repeat at 50 ESOPHAGOGASTRODUODENOSCOPY TRANSORAL DIAGNOSTIC 08/16/2014 EGD LAPAROSCOPY SURG CHOLECYSTECTOMY 04/27/2003 Cholecystectomy, lap OVARIAN CYSTECTOMY Bilateral 07/30/2021 PAST SURGICAL HISTORY OF Laparoscopy for endometriosis PAST SURGICAL HISTORY OF dANDc PAST SURGICAL HISTORY OF wisdom teeth PYELOTOMY W/REMOVAL CALCULUS 04/27/2008 multiple ALLERGIES Aleve [Naproxen Sodium], Menthol, Metformin, and Penicillins MEDICATIONS Phentermine HCl (ADIPEX-P) 37.5 mg tabletTake 1 tablet by mouth once daily for 30 days. BMI 38.32Disp: 30 tabletRfl: 0 dextroamphetamine-amphetamine (ADDERALL) 10 mg tabletTake 1 tablet by mouth once daily for 30 days.Disp: 30 tabletRfl: 0 dextroamphetamine-amphetamine (ADDERALL) 5 mg tabletTake 1 tablet by mouth once daily as needed for up to 30 days. In the afternoon, in addition to am 10mg dose.Disp: 30 tabletRfl: 0 vitamin b complex (B COMPLETE) tabTake 1 tablet by mouth once daily.Disp: 90 tabletRfl: 1 tamsulosin (FLOMAX) 0.4 mgTake 1 capsule by mouth daily at bedtime. For kidney stonesDisp: 7 capsuleRfl: 1 Magnesium Oxide 250 mg magnesium tabTake 1 tablet by mouth daily at bedtime.Disp: 30 tabletRfl: 11 triamcinolone acetonide (KENALOG) 0.5 % creamApply 1 application to affected area daily at bedtime. On left lower leg skin lesion at ankle. Apply sparingly. Avoid face/skin fold.Disp: 15 gRfl: 1 tiZANidine (ZANAFLEX) 4 mg tabletTake 1 tablet by mouth every 8 hours as needed (muscle spasms).Disp: 15 tabletRfl: 0 levothyroxine (SYNTHROID) 88 mcg tabletTake 1 tablet by mouth once daily. and skip 1 day weekly.Disp: 90 tabletRfl: 3 carbonyl iron 15 mg chewTake 1 tablet by mouth twice daily with meals.Disp: 60 tabletRfl: 2 gabapentin (NEURONTIN) 100 mg capsuleTake 1 capsule by mouth three times daily as needed (nerve pain, low back pain) for up to 30 days.Disp: 60 capsuleRfl: 1 Cholecalciferol, Vitamin D3, 125 mcg (5,000 unit) capTake 1 capsule by mouth once daily.Disp: 90 capsuleRfl: 3 levalbuterol tartrate HFA 45 mcg/actuation inhalerInhale 1-2 Puffs as instructed every 6 hours as needed for Wheezing/Shortness of Breath.Disp: 15 gRfl: 0 ondansetron orally disintegrating (ZOFRAN ODT) 4 mg disintegrating tabletTake 1 tablet by mouth every 6 hours as needed for Nausea/Vomiting.Disp: 20 tabletRfl: 1 triamcinolone acetonide (NASACORT) 55 mcg nasal inhalerUse 2 Sprays in the nose once daily. In the morningDisp: 3 BottleRfl: 1 FAMILY HISTORY Problem Relation Age of Onset Breast Cancer Mother 39 Arthritis Mother Fibromyalgia other (irregular heartbeat) Mother Hypertension Maternal Grandmother Alzheimer's Disease Maternal Grandmother Arthritis Maternal Grandmother other (dementia) Maternal Grandmother Diabetes Brother type 1 Stroke Maternal Grandfather other (Eosinophilic esophagitis) Son other (Abdominal migraines) Son ADD/ADHD Daughter Arthritis Father Thyroid Father Hypertension Father Thyroid Cancer Sister Diabetes Brother Type 1 Social History Tobacco Use Smoking status: Never Smokeless tobacco: Never Vaping Use Vaping Use: Never used Substance Use Topics Alcohol use: Yes Comment: twice a year- socially Drug use: No Review of Systems Constitutional: Positive for fever. HENT: Positive for congestion, ear pain and sore throat. Negative for nosebleeds. Respiratory: Negative for cough, shortness of breath and wheez (more content not included)... [facility] 08-07-2022 History of Present illness Narrative Subjective HPI HPI Sangeetha Redd is a 42 year old female who presents today for CC of st for 2 weeks, ear pain for 1 day. Has tried otc medication for relief. Symptoms are worsened by nothing. Risk factors sick exposures at school. .Patient presents with: Chest Congestion: Cough x 4 days PAST MEDICAL HISTORY Diagnosis Date Anxiety Cerebral aneurysm Complicated migraine Endometriosis 75% improvement in abdominal pain post lap surgery Hypothyroidism IBS (irritable bowel syndrome) Insulin resistance Lactose intolerance in adult Left thyroid nodule 12/2020 repeat thyroid US 12/2021 Low HDL (under 40) Low serum progesterone worsening symptoms with progesterone rx Lumbar disc disease 05/13/2010 Migraines CADENCE (obstructive sleep apnea) Last polysomnogram in 2012, last use in 2012 Personal history of kidney stones Polycystic ovary syndrome 06/19/2010 Protein S deficiency (HCC) 2008 clotting disorder PUD (peptic ulcer disease) 2009 treated medically, repeat EGD neg in 2014 Renal calculi 2009 associated to low citric acid, h/o hypercalciuria Rosacea 06/19/2010 Shingles 2010 right flank area into right upper abdomen Vitamin D deficiency PAST SURGICAL HISTORY Procedure Laterality Date APPENDECTOMY COLONOSCOPY FLX DX W/COLLJ SPEC WHEN PFRMD 08/16/2014 Colonoscopy-repeat at 50 ESOPHAGOGASTRODUODENOSCOPY TRANSORAL DIAGNOSTIC 08/16/2014 EGD LAPAROSCOPY SURG CHOLECYSTECTOMY 04/27/2003 Cholecystectomy, lap OVARIAN CYSTECTOMY Bilateral 07/30/2021 PAST SURGICAL HISTORY OF Laparoscopy for endometriosis PAST SURGICAL HISTORY OF d&c PAST SURGICAL HISTORY OF wisdom teeth PYELOTOMY W/REMOVAL CALCULUS 04/27/2008 multiple ALLERGIES Aleve [Naproxen Sodium], Menthol, Metformin, and Penicillins MEDICATIONS Phentermine HCl (ADIPEX-P) 37.5 mg tablet^Take 1 tablet by mouth once daily for 30 days. BMI 38.32^Disp: 30 tablet^Rfl: 0 dextroamphetamine-amphetamine (ADDERALL) 10 mg tablet^Take 1 tablet by mouth once daily for 30 days.^Disp: 30 tablet^Rfl: 0 dextroamphetamine-amphetamine (ADDERALL) 5 mg tablet^Take 1 tablet by mouth once daily as needed for up to 30 days. In the afternoon, in addition to am 10mg dose.^Disp: 30 tablet^Rfl: 0 vitamin b complex (B COMPLETE) tab^Take 1 tablet by mouth once daily.^Disp: 90 tablet^Rfl: 1 tamsulosin (FLOMAX) 0.4 mg^Take 1 capsule by mouth daily at bedtime. For kidney stones^Disp: 7 capsule^Rfl: 1 Magnesium Oxide 250 mg magnesium tab^Take 1 tablet by mouth daily at bedtime.^Disp: 30 tablet^Rfl: 11 triamcinolone acetonide (KENALOG) 0.5 % cream^Apply 1 application to affected area daily at bedtime. On left lower leg skin lesion at ankle. Apply sparingly. Avoid face/skin fold.^Disp: 15 g^Rfl: 1 tiZANidine (ZANAFLEX) 4 mg tablet^Take 1 tablet by mouth every 8 hours as needed (muscle spasms).^Disp: 15 tablet^Rfl: 0 levothyroxine (SYNTHROID) 88 mcg tablet^Take 1 tablet by mouth once daily. and skip 1 day weekly.^Disp: 90 tablet^Rfl: 3 carbonyl iron 15 mg chew^Take 1 tablet by mouth twice daily with meals.^Disp: 60 tablet^Rfl: 2 gabapentin (NEURONTIN) 100 mg capsule^Take 1 capsule by mouth three times daily as needed (nerve pain, low back pain) for up to 30 days.^Disp: 60 capsule^Rfl: 1 Cholecalciferol, Vitamin D3, 125 mcg (5,000 unit) cap^Take 1 capsule by mouth once daily.^Disp: 90 capsule^Rfl: 3 levalbuterol tartrate HFA 45 mcg/actuation inhaler^Inhale 1-2 Puffs as instructed every 6 hours as needed for Wheezing/Shortness of Breath.^Disp: 15 g^Rfl: 0 ondansetron orally disintegrating (ZOFRAN ODT) 4 mg disintegrating tablet^Take 1 tablet by mouth every 6 hours as needed for Nausea/Vomiting.^Disp: 20 tablet^Rfl: 1 triamcinolone acetonide (NASACORT) 55 mcg nasal inhaler^Use 2 Sprays in the nose once daily. In the morning^Disp: 3 Bottle^Rfl: 1 FAMILY HISTORY Problem Relation Age of Onset Breast Cancer Mother 39 Arthritis Mother Fibromyalgia other (irregular heartbeat) Mother Hypertension Maternal Grandmother Alzheimer's Disease Maternal Grandmother Arthritis Maternal Grandmother other (dementia) Maternal Grandmother Diabetes Brother type 1 Stroke Maternal Grandfather other (Eosinophilic esophagitis) Son other (Abdominal migraines) Son ADD/ADHD Daughter Arthritis Father Thyroid Father Hypertension Father Thyroid Cancer Sister Diabetes Brother Type 1 Social History Tobacco Use Smoking status: Never Smokeless tobacco: Never Vaping Use Vaping Use: Never used Substance Use Topics Alcohol use: Yes Comment: twice a year- socially Drug use: No Review of Systems Constitutional: Positive for fever. HENT: Positive for congestion, ear pain and sore throat. Negative for nosebleeds. Respiratory: Negative for cough, shortness of breath and wheezing. Cardiovascular: Negative for chest pain. Gastrointestinal: Negative for diarrhea and vomiting. Musculoskeletal: Negative for neck pain. Skin: Negative for itching and rash. Objective Blood pressure 126/86, pulse 72, temperature 37.8 C (100 F), temperature source Tympanic, resp. rate 20, weight 88.5 kg (195 lb), last menstrual period 05/30/2019. Physical Exam Constitutional: General: She is not in acute distress. Appearance: She is not toxic-appearing or diaphoretic. HENT: Head: Normocephalic and atraumatic. Right Ear: Hearing, tympanic membrane, ear canal and external ear normal. Left Ear: Hearing, tympanic membrane, ear canal and external ear normal. Nose: Nose normal. Mouth/Throat: Pharynx: Uvula midline. No pharyngeal swelling, oropharyngeal exudate, posterior oropharyngeal erythema or uvula swelling. Eyes: General: Lids are normal. No scleral icterus. Right eye: No discharge. Left eye: No discharge. Conjunctiva/sclera: Conjunctivae normal. Pupils: Pupils are equal, round, and reactive to light. Neck: Trachea: Trachea normal. Cardiovascular: Rate and Rhythm: Normal rate and regular rhythm. Heart sounds: Normal heart sounds. Pulmonary: Effort: Pulmonary effort is normal. Breath sounds: Rhonchi (scattered bilat) present. No decreased breath sounds, wheezing or rales. Musculoskeletal: Cervical back: Normal range of motion and neck supple. Lymphadenopathy: Cervical: No cervical adenopathy. Right cervical: No superficial cervical adenopathy. Left cervical: No superficial cervical adenopathy. Skin: Findings: No rash. Neurological: Mental Status: She is alert and oriented to person, place, and time. ASSESSMENT/PLAN: 1. Viral bronchitis - ICD9: 466.0, ICD10: J20.8 (primary diagnosis) - Discussed supportive care - Limit exposure to smoke and other inhaled irritants - Discussed possible red flags and when to seek medical attention - Follow up in 3-5 days or sooner if no better or worse -If you experience chest pain/shortness of breath go to ER - ALBUTEROL SULFATE HFA 90 MCG/ACTUATION AEROSOL INHALER - COVID WITH FLUA+B, ROUTINE 2. Sore throat - ICD9: 462, ICD10: J02.9 Neg, viral - STREP A MOLECULAR (POC) 3. Acute cough - ICD9: 786.2, ICD10: R05.1 Xray negative - XR CHEST 2V FRONTAL/LAT IMPRESSION: No acute radiographic abnormality. Dictated by : MD Kay GUO APRN.SOCIOLOGY PROFESSOR documented in this encounter [facility] 07-31-2022 Note HNO ID: [id number] Author: Roxy Flores APRN.JOI Service: ? Author Type: Nurse Practitioner Type: Progress Notes Filed: 08/01/2022 5:00 PM Note Text: Chief Complaint Patient presents with: Medication Follow-up Low Back Pain: Possible injury x 1 week HPI Sangeetha Redd is a 42 year old female who presents here today for Above Complaints.. Starting weight: 194 pounds Month #1 (today): 196 pounds, BMI 38.32 Today: Is tolerating Adipex well, does have dry mouth but does help her to drink more water-but definitely needs to drink more. Does have some constipation. Diet-low carb, keto, low sugar. Has tried intermittent fasting, but feels like her blood sugar is getting low and like she is going to pass out. Drinks protein shake once daily. Exercise-has been working out consistently for 2 months. Doing both cardio and weights. Clothes are fitting better, but seems to be maintaining weight. Back-injured about a week ago. Twisted her back wrong. Was reaching for something in her closet and fell because she was reaching too far. Is hurting to both sides Considering getting into the chiropractor. Muscle relaxer is helpful-can only take at night because gets very sleepy. Flexeril makes her grumpy the next day. Past medical history, appointments, medications, allergies reviewed. Previous Medical History PAST MEDICAL HISTORY Diagnosis Date Anxiety Cerebral aneurysm Complicated migraine Endometriosis 75% improvement in abdominal pain post lap surgery Hypothyroidism IBS (irritable bowel syndrome) Insulin resistance Lactose intolerance in adult Left thyroid nodule 12/2020 repeat thyroid US 12/2021 Low HDL (under 40) Low serum progesterone worsening symptoms with progesterone rx Lumbar disc disease 05/13/2010 Migraines CADENCE (obstructive sleep apnea) Last polysomnogram in 2012, last use in 2012 Personal history of kidney stones Polycystic ovary syndrome 06/19/2010 Protein S deficiency (HCC) 2008 clotting disorder PUD (peptic ulcer disease) 2009 treated medically, repeat EGD neg in 2014 Renal calculi 2009 associated to low citric acid, h/o hypercalciuria Rosacea 06/19/2010 Shingles 2010 right flank area into right upper abdomen Vitamin D deficiency Previous Surgical History PAST SURGICAL HISTORY Procedure Laterality Date APPENDECTOMY COLONOSCOPY FLX DX W/COLLJ SPEC WHEN PFRMD 08/16/2014 Colonoscopy-repeat at 50 ESOPHAGOGASTRODUODENOSCOPY TRANSORAL DIAGNOSTIC 08/16/2014 EGD LAPAROSCOPY SURG CHOLECYSTECTOMY 04/27/2003 Cholecystectomy, lap OVARIAN CYSTECTOMY Bilateral 07/30/2021 PAST SURGICAL HISTORY OF Laparoscopy for endometriosis PAST SURGICAL HISTORY OF dANDc PAST SURGICAL HISTORY OF wisdom teeth PYELOTOMY W/REMOVAL CALCULUS 04/27/2008 multiple Family History FAMILY HISTORY Problem Relation Age of Onset Breast Cancer Mother 39 Arthritis Mother Fibromyalgia other (irregular heartbeat) Mother Hypertension Maternal Grandmother Alzheimer's Disease Maternal Grandmother Arthritis Maternal Grandmother other (dementia) Maternal Grandmother Diabetes Brother type 1 Stroke Maternal Grandfather other (Eosinophilic esophagitis) Son other (Abdominal migraines) Son ADD/ADHD Daughter Arthritis Father Thyroid Father Hypertension Father Thyroid Cancer Sister Diabetes Brother Type 1 Patient Allergies ALLERGIES Allergen Reactions Aleve [Naproxen Sod* Vomiting Ibuprofen without problems Vomiting with Aleve with one time use Metformin GI Upset Penicillins Swelling Current Medications Current Outpatient Medications on File Prior to Visit Medication Sig dextroamphetamine-amphetamine (ADDERALL) 10 mg tablet Take 1 tablet by mouth once daily for 30 days. dextroamphetamine-amphetamine (ADDERALL) 5 mg tablet Take 1 tablet by mouth once daily as needed for up to 30 days. In the afternoon, in addition to am 10mg dose. vitamin b complex (B COMPLETE) tab Take 1 tablet by mouth once daily. tamsulosin (FLOMAX) 0.4 mg Take 1 capsule by mouth daily at bedtime. For kidney stones Magnesium Oxide 250 mg magnesium tab Take 1 tablet by mouth daily at bedtime. triamcinolone acetonide (KENALOG) 0.5 % cream Apply 1 application to affected area daily at bedtime. On left lower leg skin lesion at ankle. Apply sparingly. Avoid face/skin fold. tiZANidine (ZANAFLEX) 4 mg tablet Take 1 tablet by mouth every 8 hours as needed (muscle spasms). levothyroxine (SYNTHROID) 88 mcg tablet Take 1 tablet by mouth once daily. and skip 1 day weekly. carbonyl iron 15 mg chew Take 1 tablet by mouth twice daily with meals. Cholecalciferol, Vitamin D3, 125 mcg (5,000 unit) cap Take 1 capsule by mouth once daily. levalbuterol tartrate HFA 45 mcg/actuation inhaler Inhale 1-2 Puffs as instructed every 6 hours as needed for Wheezing/Shortness of Breath. ondansetron orally disintegrating (ZOFRAN ODT) 4 mg disintegra (more content not included)... [facility] 07-31-2022 Instructions Roxy Flores APRN.CNP - 07/31/2022 10:14 AM EDT Alternate hot and cold to your back. Hot baths with Epsom salts. Ibuprofen as needed. Let me know if you need a steroid or things aren't getting better with your back. We'll get ahold of labs and ultrasound from Dr. Mckinley. I'll let you know after I talk to Dr. [place] about any supplements as well as diet ideas. Super B-complex documented in this encounter [facility] 07-31-2022 History of Present illness Narrative Chief Complaint Patient presents with: Medication Follow-up Low Back Pain: Possible injury x 1 week HPI Sangeetha Redd is a 42 year old female who presents here today for Above Complaints.. Starting weight: 194 pounds Month #1 (today): 196 pounds, BMI 38.32 Today: Is tolerating Adipex well, does have dry mouth but does help her to drink more water-but definitely needs to drink more. Does have some constipation. Diet-low carb, keto, low sugar. Has tried intermittent fasting, but feels like her blood sugar is getting low and like she is going to pass out. Drinks protein shake once daily. Exercise-has been working out consistently for 2 months. Doing both cardio and weights. Clothes are fitting better, but seems to be maintaining weight. Back-injured about a week ago. Twisted her back wrong. Was reaching for something in her closet and fell because she was reaching too far. Is hurting to both sides Considering getting into the chiropractor. Muscle relaxer is helpful-can only take at night because gets very sleepy. Flexeril makes her grumpy the next day. Past medical history, appointments, medications, allergies reviewed. Previous Medical History PAST MEDICAL HISTORY Diagnosis Date Anxiety Cerebral aneurysm Complicated migraine Endometriosis 75% improvement in abdominal pain post lap surgery Hypothyroidism IBS (irritable bowel syndrome) Insulin resistance Lactose intolerance in adult Left thyroid nodule 12/2020 repeat thyroid US 12/2021 Low HDL (under 40) Low serum progesterone worsening symptoms with progesterone rx Lumbar disc disease 05/13/2010 Migraines CADENCE (obstructive sleep apnea) Last polysomnogram in 2012, last use in 2012 Personal history of kidney stones Polycystic ovary syndrome 06/19/2010 Protein S deficiency (HCC) 2007 clotting disorder PUD (peptic ulcer disease) 2009 treated medically, repeat EGD neg in 2014 Renal calculi 2009 associated to low citric acid, h/o hypercalciuria Rosacea 06/19/2010 Shingles 2010 right flank area into right upper abdomen Vitamin D deficiency Previous Surgical History PAST SURGICAL HISTORY Procedure Laterality Date APPENDECTOMY COLONOSCOPY FLX DX W/COLLJ SPEC WHEN PFRMD 08/16/2014 Colonoscopy-repeat at 50 ESOPHAGOGASTRODUODENOSCOPY TRANSORAL DIAGNOSTIC 08/16/2014 EGD LAPAROSCOPY SURG CHOLECYSTECTOMY 04/27/2003 Cholecystectomy, lap OVARIAN CYSTECTOMY Bilateral 07/30/2021 PAST SURGICAL HISTORY OF Laparoscopy for endometriosis PAST SURGICAL HISTORY OF d&c PAST SURGICAL HISTORY OF wisdom teeth PYELOTOMY W/REMOVAL CALCULUS 04/27/2008 multiple Family History FAMILY HISTORY Problem Relation Age of Onset Breast Cancer Mother 39 Arthritis Mother Fibromyalgia other (irregular heartbeat) Mother Hypertension Maternal Grandmother Alzheimer's Disease Maternal Grandmother Arthritis Maternal Grandmother other (dementia) Maternal Grandmother Diabetes Brother type 1 Stroke Maternal Grandfather other (Eosinophilic esophagitis) Son other (Abdominal migraines) Son ADD/ADHD Daughter Arthritis Father Thyroid Father Hypertension Father Thyroid Cancer Sister Diabetes Brother Type 1 Patient Allergies ALLERGIES Allergen Reactions Aleve [Naproxen Sod* Vomiting Ibuprofen without problems Vomiting with Aleve with one time use Metformin GI Upset Penicillins Swelling Current Medications Current Outpatient Medications on File Prior to Visit Medication Sig dextroamphetamine-amphetamine (ADDERALL) 10 mg tablet Take 1 tablet by mouth once daily for 30 days. dextroamphetamine-amphetamine (ADDERALL) 5 mg tablet Take 1 tablet by mouth once daily as needed for up to 30 days. In the afternoon, in addition to am 10mg dose. vitamin b complex (B COMPLETE) tab Take 1 tablet by mouth once daily. tamsulosin (FLOMAX) 0.4 mg Take 1 capsule by mouth daily at bedtime. For kidney stones Magnesium Oxide 250 mg magnesium tab Take 1 tablet by mouth daily at bedtime. triamcinolone acetonide (KENALOG) 0.5 % cream Apply 1 application to affected area daily at bedtime. On left lower leg skin lesion at ankle. Apply sparingly. Avoid face/skin fold. tiZANidine (ZANAFLEX) 4 mg tablet Take 1 tablet by mouth every 8 hours as needed (muscle spasms). levothyroxine (SYNTHROID) 88 mcg tablet Take 1 tablet by mouth once daily. and skip 1 day weekly. carbonyl iron 15 mg chew Take 1 tablet by mouth twice daily with meals. Cholecalciferol, Vitamin D3, 125 mcg (5,000 unit) cap Take 1 capsule by mouth once daily. levalbuterol tartrate HFA 45 mcg/actuation inhaler Inhale 1-2 Puffs as instructed every 6 hours as needed for Wheezing/Shortness of Breath. ondansetron orally disintegrating (ZOFRAN ODT) 4 mg disintegrating tablet Take 1 tablet by mouth every 6 hours as needed for Nausea/Vomiting. triamcinolone acetonide (NASACORT) 55 mcg nasal inhaler Use 2 Sprays in the nose once daily. In the morning gabapentin (NEURONTIN) 100 mg capsule Take 1 capsule by mouth three times daily as needed (nerve pain, low back pain) for up to 30 days. Current Facility-Administered Medications on File Prior to Visit Medication cosyntropin 0.25 mg injection (CORTROSYN) Social History Social History Tobacco Use Smoking status: Never Smokeless tobacco: Never Vaping Use Vaping Use: Never used Substance Use Topics Alcohol use: Yes Comment: twice a year- socially Drug use: No Review of Symptoms REVIEW OF SYSTEMS See HPI, otherwise negative EXAM: BP 116/78 (BP Site: Left Arm, BP Position: Sitting, BP Cuff Size: Regular Adult) Pulse 70 Resp 16 Wt 89 kg (196 lb 3.2 oz) LMP 05/30/2019 (Exact Date) SpO2 95% BMI 38.32 kg/m General Appearance: Well appearing, alert, in no acute distress, well-hydrated, well nourished. and Obese. Back:good flexion and extension, good range of motion, motor and sensory appear to be normal. Mild discomfort to palpation of lumbar spine, bilateral lower back muscle tenderness with palpation. Lungs: Lungs clear to auscultation. No wheezing, rhonchi, rales.. Heart: RRR without murmur, gallop, or rubs. No ectopy. Health Maintenance List HEPATITIS B(1 of 3 - 3-dose series) Never done DTAP,TDAP,TD(1 - Tdap) Never done MAMMOGRAM due on 06/11/2022 HEPATITIS C SCREENING due on 12/05/2022 HIV SCREENING due on 12/05/2022 COVID-19 VACCINE(1) due on 05/12/2023 INFLUENZA(Season Ended) due on 12/26/2022 ANNUAL PCP TEAM CHRONIC DISEASE VISIT due on 07/01/2023 PAP TESTING due on 06/25/2025 HPV TESTING due on 06/25/2025 DEPRESSION ASSESSMENT Completed Data reviewed Previous records, office notes ASSESSMENT/PLAN: 1. Obesity, Class III, BMI 40-49.9 (morbid obesity) (HCC) - ICD9: 278.01, ICD10: E66.01 (primary diagnosis) Tolerating Adipex well. Working on decreasing portion sizes, low carb, low sugar Will work on intermittent fasting 16/8. Will do this only 3-4 days per week due to possible hypoglycemic episodes. - PHENTERMINE 37.5 MG TABLET 2. Dyslipidemia - ICD9: 272.4, ICD10: E78.5 Tolerating Adipex well. Working on decreasing portion sizes, low carb, low sugar Will work on intermittent fasting 16/8. Will do this only 3-4 days per week due to possible hypoglycemic episodes. - PHENTERMINE 37.5 MG TABLET 3. Hypothyroidism, acquired - ICD9: 244.9, ICD10: E03.9 Tolerating Adipex well. Working on decreasing portion sizes, low carb, low sugar Will work on intermittent fasting 16/8. Will do this only 3-4 days per week due to possible hypoglycemic episodes. - PHENTERMINE 37.5 MG TABLET 4. Sacral pain - ICD9: 724.6, ICD10: M53.3 Chronic, exacerbation. Alternate hot and cold to back. Hot baths with Epsom salts. NSAIDS as needed. Consider steroid such as Medrol Dose Pack if no improvement-patient will call if this is needed. 5. Chronic midline low back pain without sciatica - ICD9: 724.2, 338.29, ICD10: M54.50, G89.29 Chronic, exacerbation. Alternate hot and cold to back. Hot baths with Epsom salts. NSAIDS as needed. Consider steroid such as Medrol Dose Pack if no improvement-patient will call if this is needed. Roxy Flores APRN.SOCIOLOGY PROFESSOR documented in this encounter [facility] 07-23-2022 Note Patient Outreach (IN [facility]) SANGEETHA REDD ([id number]) 1980 F Date Time Provider Department 07/23/22 [facility] During your visit today, we recorded the following information about you: Allergies As of Date: 07/23/2022 Noted Allergy Reaction ALEVE (NAPROXEN SODIUM) 04/28/2007 11 - Vomiting Comments: Ibuprofen without problems Vomiting with Aleve with one time use METFORMIN 01/23/2017 8 - GI Upset PENICILLINS 04/28/2007 7 - Swelling Date Reviewed: 06/30/2022 Reviewed by: Bertha Rivera LPN - Fully Assessed Visit Diagnosis:Encounter for screening mammogram for breast cancer [Z12.31] Order(s):[facility] SCREENING [[id number]] Order #: [id number] FUTURE Prescriptions as of 07/28/2022 - dextroamphetamine-amphetamine (ADDERALL) 10 mg tablet Take 1 tablet by mouth once daily for 30 days. - dextroamphetamine-amphetamine (ADDERALL) 5 mg tablet Take 1 tablet by mouth once daily as needed for up to 30 days. In the afternoon, in addition to am 10mg dose. - vitamin b complex (B COMPLETE) tab Take 1 tablet by mouth once daily. - LORazepam (ATIVAN) 0.5 mg Take 1 tablet by mouth once daily as needed for up to 30 days. - tamsulosin (FLOMAX) 0.4 mg Take 1 capsule by mouth daily at bedtime. For kidney stones - Phentermine HCl (ADIPEX-P) 37.5 mg tablet Take 1 tablet by mouth once daily for 30 days. BMI 37.89 - Magnesium Oxide 250 mg magnesium tab Take 1 tablet by mouth daily at bedtime. - triamcinolone acetonide (KENALOG) 0.5 % cream Apply 1 application to affected area daily at bedtime. On left lower leg skin lesion at ankle. Apply sparingly. Avoid face/skin fold. - tiZANidine (ZANAFLEX) 4 mg tablet Take 1 tablet by mouth every 8 hours as needed (muscle spasms). - levothyroxine (SYNTHROID) 88 mcg tablet Take 1 tablet by mouth once daily. and skip 1 day weekly. - carbonyl iron 15 mg chew Take 1 tablet by mouth twice daily with meals. - gabapentin (NEURONTIN) 100 mg capsule Take 1 capsule by mouth three times daily as needed (nerve pain, low back pain) for up to 30 days. - Cholecalciferol, Vitamin D3, 125 mcg (5,000 unit) cap Take 1 capsule by mouth once daily. - levalbuterol tartrate HFA 45 mcg/actuation inhaler Inhale 1-2 Puffs as instructed every 6 hours as needed for Wheezing/Shortness of Breath. - ondansetron orally disintegrating (ZOFRAN ODT) 4 mg disintegrating tablet Take 1 tablet by mouth every 6 hours as needed for Nausea/Vomiting. - triamcinolone acetonide (NASACORT) 55 mcg nasal inhaler Use 2 Sprays in the nose once daily. In the morning Facility-Administered Medications as of 07/28/2022 - cosyntropin 0.25 mg injection (CORTROSYN) Problem List As Of Date 07/23/2022 Noted Resolved Renal calculi [N20.0] 05/13/2010 03/10/2017 Hypothyroidism, acquired [E03.9] 05/13/2010 Lumbar disc disease [M51.9] 05/13/2010 Polycystic ovary syndrome [E28.2] 06/19/2010 Rosacea [L71.9] 06/19/2010 Dysmetabolic syndrome [E88.81] 01/15/2011 Acute right flank pain [R10.9] 06/28/2012 IBS (irritable bowel syndrome) [K58.9] 08/07/2014 PUD (peptic ulcer disease) [K27.9] 08/07/2014 Bleeding disorder (HCC) [D69.9] 08/07/2014 CADENCE (obstructive sleep apnea) [G47.33] 08/07/2014 Kidney stone [N20.0] 08/28/2014 03/10/2017 Right flank pain [R10.9] 08/28/2014 03/10/2017 Obesity (BMI 30-39.9) [E66.9] 09/15/2014 11/18/2017 Atypical migraine [G43.009] 10/21/2016 Cerebral aneurysm [I67.1] 10/21/2016 Fatigue [R53.83] 10/21/2016 Mouth sores [K13.79] 10/21/2016 Tick bite [W57.XXXA] 10/21/2016 03/10/2017 Myalgia [M79.10] 10/21/2016 Anxiety disorder [F41.9] 10/21/2016 Oral mucosal lesion [K13.70] 12/23/2016 Fibromyalgia [M79.7] 01/04/2017 Obesity, Class III, BMI 40-49.9 (morbid obesity*01/04/2017 Physical deconditioning [R53.81] 01/04/2017 Empty sella (HCC) [E23.6] 09/08/2018 Elevated cortisol level (HCC) [R79.89] 09/08/2018 Thyroid nodule [E04.1] 12/2020 Dyslipidemia [E78.5] 01/14/2021 IFG (impaired fasting glucose) [R73.01] 01/14/2021 Vitamin D deficiency [E55.9] 01/14/2021 Premature menopause [E28.319] 02/05/2022 Surgical menopause [E89.40] 02/05/2022 Impaired concentration [R41.840] 05/12/2022 Chronic midline low back pain without sciatica *05/12/2022 Sacral pain [M53.3] 05/12/2022 Hair loss [L65.9] 05/12/2022 History of renal stone [Z87.442] 05/12/2022 Adnexal cyst [N94.9] 05/12/2022 Sclerosis of sacroiliac joint [M53.3] 06/30/2022 Chronic SI joint pain [M53.3, G89.29] 06/30/2022 Dermatofibroma [D23.9] 06/30/2022 Magnesium deficiency [E61.2] 06/30/2022 Obesity, Class II, BMI 35-39.9 [E66.9] 06/30/2022 Right nephrolithiasis [N20.0] 06/30/2022 Encounter Status:Closed by [employer], PRODUSER on 07/28/22 [facility] 06-30-2022 Note HNO ID: [id number] Author: Jose Luis [place], DO Service: ? Author Type: Physician Type: Progress Notes Filed: 06/30/2022 9:37 AM Note Text: CC: Sangeetha Redd is a 42 year old female who presents to the office for follow up HPI: Hypothyroidism, had recent thyroid US, no changes in left thyroid nodule. Taking her levothyroxine as prescribed. Obesity, weight 194 lbs, BMI 37.89. tolerated Adipex in the past and would like to restart medication. Trying to stay physically active and eating well balanced diet. Anxiety, stable, taking prn Ativan, needing rx refilled. ADD, long standing, tolerating Adderall medication well. No SE with medication. Feels the 400 mg of magnesium is too strong and may contribute to loose stools. Asking for alternative Skin lesion left posterior lower leg, diagnosed with dermatofibroma in the past. Diagnosed with right kidney stone on recent x-rays Low back and tailbone pain, found to have sclerosis changes in SI joint and coccyx areas. Not interested in injections yet at this time PAST MEDICAL HISTORY Diagnosis Date Anxiety Cerebral aneurysm Complicated migraine Endometriosis 75% improvement in abdominal pain post lap surgery Hypothyroidism IBS (irritable bowel syndrome) Insulin resistance Lactose intolerance in adult Left thyroid nodule 12/2020 repeat thyroid US 12/2021 Low HDL (under 40) Low serum progesterone worsening symptoms with progesterone rx Lumbar disc disease 05/13/2010 Migraines CADENCE (obstructive sleep apnea) Last polysomnogram in 2012, last use in 2012 Personal history of kidney stones Polycystic ovary syndrome 06/19/2010 Protein S deficiency (HCC) 2007 clotting disorder PUD (peptic ulcer disease) 2009 treated medically, repeat EGD neg in 2014 Renal calculi 2009 associated to low citric acid, h/o hypercalciuria Rosacea 06/19/2010 Shingles 2010 right flank area into right upper abdomen Vitamin D deficiency PAST SURGICAL HISTORY Procedure Laterality Date APPENDECTOMY COLONOSCOPY FLX DX W/COLLJ SPEC WHEN PFRMD 08/16/2014 Colonoscopy-repeat at 50 ESOPHAGOGASTRODUODENOSCOPY TRANSORAL DIAGNOSTIC 08/16/2014 EGD LAPAROSCOPY SURG CHOLECYSTECTOMY 04/27/2003 Cholecystectomy, lap OVARIAN CYSTECTOMY Bilateral 07/30/2021 PAST SURGICAL HISTORY OF Laparoscopy for endometriosis PAST SURGICAL HISTORY OF dANDc PAST SURGICAL HISTORY OF wisdom teeth PYELOTOMY W/REMOVAL CALCULUS 04/27/2008 multiple Social History: Social History Tobacco Use Smoking status: Never Smokeless tobacco: Never Vaping Use Vaping Use: Never used Substance Use Topics Alcohol use: Yes Comment: twice a year- socially Drug use: No FAMILY HISTORY Problem Relation Age of Onset Breast Cancer Mother 39 Arthritis Mother Fibromyalgia other (irregular heartbeat) Mother Hypertension Maternal Grandmother Alzheimer's Disease Maternal Grandmother Arthritis Maternal Grandmother other (dementia) Maternal Grandmother Diabetes Brother type 1 Stroke Maternal Grandfather other (Eosinophilic esophagitis) Son other (Abdominal migraines) Son ADD/ADHD Daughter Arthritis Father Thyroid Father Hypertension Father Thyroid Cancer Sister Diabetes Brother Type 1 Current Outpatient prescriptions: tiZANidine (ZANAFLEX) 4 mg tabletTake 1 tablet by mouth every 8 hours as needed (muscle spasms).Disp: 15 tabletRfl: 0 dextroamphetamine-amphetamine (ADDERALL) 10 mg tabletTake 1 tablet by mouth once daily for 30 days.Disp: 30 tabletRfl: 0 dextroamphetamine-amphetamine (ADDERALL) 5 mg tabletTake 1 tablet by mouth once daily as needed for up to 30 days. In the afternoon, in addition to am 10mg dose.Disp: 30 tabletRfl: 0 levothyroxine (SYNTHROID) 88 mcg tabletTake 1 tablet by mouth once daily. and skip 1 day weekly.Disp: 90 tabletRfl: 3 carbonyl iron 15 mg chewTake 1 tablet by mouth twice daily with meals.Disp: 60 tabletRfl: 2 Cholecalciferol, Vitamin D3, 125 mcg (5,000 unit) capTake 1 capsule by mouth once daily.Disp: 90 capsuleRfl: 3 levalbuterol tartrate HFA 45 mcg/actuation inhalerInhale 1-2 Puffs as instructed every 6 hours as needed for Wheezing/Shortness of Breath.Disp: 15 gRfl: 0 ondansetron orally disintegrating (ZOFRAN ODT) 4 mg disintegrating tabletTake 1 tablet by mouth every 6 hours as needed for Nausea/Vomiting.Disp: 20 tabletRfl: 1 triamcinolone acetonide (NASACORT) 55 mcg nasal inhalerUse 2 Sprays in the nose once daily. In the morningDisp: 3 BottleRfl: 1 vitamin b complex (B COMPLETE) tabTake 1 tablet by mouth once daily.Disp: 90 tabletRfl: 1 LORazepam (ATIVAN) 0.5 mgTake 1 tablet by mouth once daily as needed for up to 30 days.Disp: 30 tabletRfl: 5 HYDROcodone-Acetaminophen (NORCO) 7.5-325 mg per tabletTake 1 tablet by mouth every 6 hours as needed for pain (kidney stones) for up to 7 days.Disp: 21 tabletRfl: 0 tamsulosin (FLOMAX) 0.4 mgTake 1 capsule by mouth daily at (more content not included)... [facility] 06-30-2022 History of Present illness Narrative CC: Sangeetha Redd is a 42 year old female who presents to the office for follow up HPI: Hypothyroidism, had recent thyroid US, no changes in left thyroid nodule. Taking her levothyroxine as prescribed. Obesity, weight 194 lbs, BMI 37.89. tolerated Adipex in the past and would like to restart medication. Trying to stay physically active and eating well balanced diet. Anxiety, stable, taking prn Ativan, needing rx refilled. ADD, long standing, tolerating Adderall medication well. No SE with medication. Feels the 400 mg of magnesium is too strong and may contribute to loose stools. Asking for alternative Skin lesion left posterior lower leg, diagnosed with dermatofibroma in the past. Diagnosed with right kidney stone on recent x-rays Low back and tailbone pain, found to have sclerosis changes in SI joint and coccyx areas. Not interested in injections yet at this time PAST MEDICAL HISTORY Diagnosis Date Anxiety Cerebral aneurysm Complicated migraine Endometriosis 75% improvement in abdominal pain post lap surgery Hypothyroidism IBS (irritable bowel syndrome) Insulin resistance Lactose intolerance in adult Left thyroid nodule 12/2020 repeat thyroid US 12/2021 Low HDL (under 40) Low serum progesterone worsening symptoms with progesterone rx Lumbar disc disease 05/13/2010 Migraines CADENCE (obstructive sleep apnea) Last polysomnogram in 2012, last use in 2012 Personal history of kidney stones Polycystic ovary syndrome 06/19/2010 Protein S deficiency (HCC) 2007 clotting disorder PUD (peptic ulcer disease) 2009 treated medically, repeat EGD neg in 2014 Renal calculi 2009 associated to low citric acid, h/o hypercalciuria Rosacea 06/19/2010 Shingles 2010 right flank area into right upper abdomen Vitamin D deficiency PAST SURGICAL HISTORY Procedure Laterality Date APPENDECTOMY COLONOSCOPY FLX DX W/COLLJ SPEC WHEN PFRMD 08/16/2014 Colonoscopy-repeat at 50 ESOPHAGOGASTRODUODENOSCOPY TRANSORAL DIAGNOSTIC 08/16/2014 EGD LAPAROSCOPY SURG CHOLECYSTECTOMY 04/27/2003 Cholecystectomy, lap OVARIAN CYSTECTOMY Bilateral 07/30/2021 PAST SURGICAL HISTORY OF Laparoscopy for endometriosis PAST SURGICAL HISTORY OF d&c PAST SURGICAL HISTORY OF wisdom teeth PYELOTOMY W/REMOVAL CALCULUS 04/27/2008 multiple Social History: Social History Tobacco Use Smoking status: Never Smokeless tobacco: Never Vaping Use Vaping Use: Never used Substance Use Topics Alcohol use: Yes Comment: twice a year- socially Drug use: No FAMILY HISTORY Problem Relation Age of Onset Breast Cancer Mother 39 Arthritis Mother Fibromyalgia other (irregular heartbeat) Mother Hypertension Maternal Grandmother Alzheimer's Disease Maternal Grandmother Arthritis Maternal Grandmother other (dementia) Maternal Grandmother Diabetes Brother type 1 Stroke Maternal Grandfather other (Eosinophilic esophagitis) Son other (Abdominal migraines) Son ADD/ADHD Daughter Arthritis Father Thyroid Father Hypertension Father Thyroid Cancer Sister Diabetes Brother Type 1 Current Outpatient prescriptions: tiZANidine (ZANAFLEX) 4 mg tablet^Take 1 tablet by mouth every 8 hours as needed (muscle spasms).^Disp: 15 tablet^Rfl: 0 dextroamphetamine-amphetamine (ADDERALL) 10 mg tablet^Take 1 tablet by mouth once daily for 30 days.^Disp: 30 tablet^Rfl: 0 dextroamphetamine-amphetamine (ADDERALL) 5 mg tablet^Take 1 tablet by mouth once daily as needed for up to 30 days. In the afternoon, in addition to am 10mg dose.^Disp: 30 tablet^Rfl: 0 levothyroxine (SYNTHROID) 88 mcg tablet^Take 1 tablet by mouth once daily. and skip 1 day weekly.^Disp: 90 tablet^Rfl: 3 carbonyl iron 15 mg chew^Take 1 tablet by mouth twice daily with meals.^Disp: 60 tablet^Rfl: 2 Cholecalciferol, Vitamin D3, 125 mcg (5,000 unit) cap^Take 1 capsule by mouth once daily.^Disp: 90 capsule^Rfl: 3 levalbuterol tartrate HFA 45 mcg/actuation inhaler^Inhale 1-2 Puffs as instructed every 6 hours as needed for Wheezing/Shortness of Breath.^Disp: 15 g^Rfl: 0 ondansetron orally disintegrating (ZOFRAN ODT) 4 mg disintegrating tablet^Take 1 tablet by mouth every 6 hours as needed for Nausea/Vomiting.^Disp: 20 tablet^Rfl: 1 triamcinolone acetonide (NASACORT) 55 mcg nasal inhaler^Use 2 Sprays in the nose once daily. In the morning^Disp: 3 Bottle^Rfl: 1 vitamin b complex (B COMPLETE) tab^Take 1 tablet by mouth once daily.^Disp: 90 tablet^Rfl: 1 LORazepam (ATIVAN) 0.5 mg^Take 1 tablet by mouth once daily as needed for up to 30 days.^Disp: 30 tablet^Rfl: 5 HYDROcodone-Acetaminophen (NORCO) 7.5-325 mg per tablet^Take 1 tablet by mouth every 6 hours as needed for pain (kidney stones) for up to 7 days.^Disp: 21 tablet^Rfl: 0 tamsulosin (FLOMAX) 0.4 mg^Take 1 capsule by mouth daily at bedtime. For kidney stones^Disp: 7 capsule^Rfl: 1 Phentermine HCl (ADIPEX-P) 37.5 mg tablet^Take 1 tablet by mouth once daily for 30 days. BMI 37.89^Disp: 30 tablet^Rfl: 0 Magnesium Oxide 250 mg magnesium tab^Take 1 tablet by mouth daily at bedtime.^Disp: 30 tablet^Rfl: 11 triamcinolone acetonide (KENALOG) 0.5 % cream^Apply 1 application to affected area daily at bedtime. On left lower leg skin lesion at ankle. Apply sparingly. Avoid face/skin fold.^Disp: 15 g^Rfl: 1 gabapentin (NEURONTIN) 100 mg capsule^Take 1 capsule by mouth three times daily as needed (nerve pain, low back pain) for up to 30 days.^Disp: 60 capsule^Rfl: 1 Allergies: ALLERGIES Allergen Reactions Aleve [Naproxen Sod* Vomiting Ibuprofen without problems Vomiting with Aleve with one time use Metformin GI Upset Penicillins Swelling ROS: See HPI PE: 06/30/22 0835 BP: 120/80 Pulse: 80 Resp: 16 Temp: 36.3 C (97.3 F) TempSrc: Left Tympanic Weight: 88 kg (194 lb) Gen: A&O, NAD, non-toxic appearing, Pleasant, cooperative HEENT: NT/AC, PERRLA, EOMs intact b/l, nares clear and patent b/l, pharynx without erythema, exudate or lesions. MMM, Uvula midline. EACs without erythema or debris. TMs pearly goncalves with intact landmarks b/l. Neck: supple, No cervical LAD, no thyromegaly, no carotid bruits CV: RRR, normal S1 and S2, no murmurs, no gallops, no rubs, Pulses 2+ and symmetric in UE and LE b/l Lungs: normal respiratory effort, CTA b/l, no wheezing or rhonchi or rales Abd: soft, overweight ,NT, ND, +BS, no hepatosplenomegaly MS: FROM all 4 extremities Reduced ROM SI joints and TTP over SI joints and coccyx area Neuro: CN II-XII intact b/l Skin: warm, dry, intact, dermatofibroma left posterior lower leg ankle No edema ASSESSMENT/PLAN: 1. Right nephrolithiasis - ICD9: 592.0, ICD10: N20.0 (primary diagnosis) rx prn for acute pain when these stones are traveling/moving, she is aware. Has had in the past - HYDROCODONE 7.5 MG-ACETAMINOPHEN 325 MG TABLET - TAMSULOSIN 0.4 MG CAPSULE 2. Impaired concentration - ICD9: 799.51, ICD10: R41.840 - rx refilled, stable - LORAZEPAM 0.5 MG TABLET 3. Anxiety disorder, unspecified type - ICD9: 300.00, ICD10: F41.9 - rx refilled, stable - LORAZEPAM 0.5 MG TABLET 4. Obesity, Class II, BMI 35-39.9 - ICD9: 278.00, ICD10: E66.9 Stable - Behavioral intervention, - Pharmacological intervention, and - Add Phentermine - PHENTERMINE 37.5 MG TABLET 5. Magnesium deficiency - ICD9: 275.2, ICD10: E61.2 Decreased dose of supplement - MAGNESIUM 250 MG ( MAGNESIUM OXIDE) TABLET 6. Dermatofibroma - ICD9: 216.9, ICD10: D23.9 Can have excisional biopsy in future if becomes bothersome to her, she is aware - TRIAMCINOLONE ACETONIDE 0.5 % TOPICAL CREAM 7. Chronic SI joint pain - ICD9: 724.6, 338.29, ICD10: M53.3, G89.29 Consider injections and pain mgmt in future if needed 8. Sclerosis of sacroiliac joint - ICD9: 724.6, ICD10: M53.3 See above Jose Luis Toledo DO PDMP website checked and validated. All prescriptions have been APPROPRIATELY filled. No suspicious activity was identified. 06/30/2022 by Jose Luis Toledo DO To ER if develops chest pain, shortness of breath, or severe worsening of symptoms. Discussed risks, benefits, alternatives, and potential side effects of medications. Patient expressed understanding and agreed with the plan. Jose Luis Toledo DO [address] [place] [address] documented in this encounter [facility] 06-18-2022 Miscellaneous Notes The following approved medication requests have been transmitted electronically. Requested Prescriptions Signed Prescriptions Disp Refills dextroamphetamine-amphetamine (ADDERALL) 10 mg tablet 30 tablet 0 Sig: Take 1 tablet by mouth once daily for 30 days. Authorizing Provider: ROXY FLORES dextroamphetamine-amphetamine (ADDERALL) 5 mg tablet 30 tablet 0 Sig: Take 1 tablet by mouth once daily as needed for up to 30 days. In the afternoon, in addition to am 10mg dose. Authorizing Provider: ROXY FLORES APRN.SOCIOLOGY PROFESSOR PDMP website checked and validated. All prescriptions have been APPROPRIATELY filled. No suspicious activity was identified. 06/18/2022 by Roxy Flores CNP. Patient has been identified by name and date of : Patient phones for refill(s): Requested Prescriptions Pending Prescriptions Disp Refills dextroamphetamine-amphetamine (ADDERALL) 10 mg tablet 30 tablet 0 Sig: Take 1 tablet by mouth once daily for 30 days. dextroamphetamine-amphetamine (ADDERALL) 5 mg tablet 30 tablet 0 Sig: Take 1 tablet by mouth once daily as needed for up to 30 days. In the afternoon, in addition to am 10mg dose. Date of last office visit in primary care: 02/27/22 Last 2 Encounter Wt Readings: Date: Wt: 05/12/2022 88.9 kg (196 lb) 02/27/2022 86.6 kg (191 lb) Previous labs/tests for medication: Not applicable Please advise. Thank you. Bertha Rivera LPN documented in this encounter [facility] 06-17-2022 Miscellaneous Notes Patient has been identified by name and date of : Patient phones for refill(s): Requested Prescriptions Pending Prescriptions Disp Refills tiZANidine (ZANAFLEX) 4 mg tablet 15 tablet 0 Sig: Take 1 tablet by mouth every 8 hours as needed (muscle spasms). Date of last office visit in primary care: Last 2 Encounter Wt Readings: Date: Wt: 05/12/2022 88.9 kg (196 lb) 02/27/2022 86.6 kg (191 lb) Previous labs/tests for medication: Not applicable Please advise. Thank you. Bertha Rivera LPN documented in this encounter [facility] 05-19-2022 Miscellaneous Notes Unable to close encounter. Message states there is an incomplete note by provider. Mary Bates LPN Pt notified of results and provider message. Mary Bates LPN Please inform patient that her CT flank results show IMPRESSION: 4 mm nonobstructing RIGHT intrarenal calculus, unchanged. This means that the stone is still in the kidney and is unchanged, not causing any current concerns. Her lumbar spine xray shows mild osteoarthritis changes and her sacral xray shows arthritis changes in her sacroiliac joints where her tailbone meets her hips as well. This is likely what causes her discomfort. Can follow up with pain mgmt to consider injections if pain continues. Jose Luis Toledo DO documented in this encounter [facility] 05-19-2022 Note HNO ID: [id number] Author: RT Idania(R) Service: ? Author Type: Technologist Type: Progress Notes Filed: 05/19/2022 9:30 AM Note Text: Radiology Service Progress Note PATIENT NAME: Sangeetha Redd DATE OF SERVICE: May 19, 2022 TIME: 9:28 AM PATIENT IDENTITY VERIFICATION COMPLETED USING TWO (2) IDENTIFIERS: Name and Date of confirmed by patient verbally. FALL SCREENING: Has the patient had 2 falls in the last year or 1 fall with injury or currently using an Ambulatory Assistive Device (Walker, Cane, Wheelchair, Crutches, etc.)? No PATIENT GENDER DATA: Female. status: : No status: NO. PATIENT RELEVANT IMPLANT DATA REVIEWED: Not Applicable RADIOLOGY DEPARTMENT: General X-ray: Exam(s) Completed: Spine X-Ray(s): Lumbar AP / LAT / L5-S1 , WT BEARING PERIPHERAL IV DATA: Not applicable SIGNED BY: RT Idania(R) May 19, 2022 9:28 AM [facility] 05-19-2022 Note HNO ID: [id number] Author: Rajani Kuzmik, RDMS Service: ? Author Type: Pie Chef Type: Progress Notes Filed: 05/19/2022 9:49 AM Note Text: Radiology Service Progress Note PATIENT NAME: Sangeetha Redd DATE OF SERVICE: May 19, 2022 TIME: 9:49 AM PATIENT IDENTITY VERIFICATION COMPLETED USING TWO (2) IDENTIFIERS: Name and Date of confirmed by patient verbally. FALL SCREENING: Has the patient had 2 falls in the last year or 1 fall with injury or currently using an Ambulatory Assistive Device (Walker, Cane, Wheelchair, Crutches, etc.)? No PATIENT GENDER DATA: Female. status: : No status: NO. PATIENT RELEVANT IMPLANT DATA REVIEWED: Not Applicable RADIOLOGY DEPARTMENT: Ultrasound PERIPHERAL IV DATA: Not applicable SIGNED BY: Rajani Perez RDMS RVJorge May 19, 2022 9:49 AM [facility] 05-19-2022 History and physical note Radiology Service Progress Note PATIENT NAME: Sangeetha Redd DATE OF SERVICE: May 19, 2022 TIME: 9:32 AM PATIENT IDENTITY VERIFICATION COMPLETED USING TWO (2) IDENTIFIERS: Name and Date of confirmed by patient verbally. FALL SCREENING: Has the patient had 2 falls in the last year or 1 fall with injury or currently using an Ambulatory Assistive Device (Walker, Cane, Wheelchair, Crutches, etc.)? No PATIENT GENDER DATA: Female. status: : No status: NO. PATIENT RELEVANT IMPLANT DATA REVIEWED: Not Applicable RADIOLOGY DEPARTMENT: General X-ray: Exam(s) Completed: Spine X-Ray(s): Sacrum/Coccyx PERIPHERAL IV DATA: Not applicable SIGNED BY: RT Idania(R) May 19, 2022 9:32 AM documented in this encounter [facility] 05-19-2022 History of Present illness Narrative Radiology Service Progress Note PATIENT NAME: Sangeetha Redd DATE OF SERVICE: May 19, 2022 TIME: 9:28 AM PATIENT IDENTITY VERIFICATION COMPLETED USING TWO (2) IDENTIFIERS: Name and Date of confirmed by patient verbally. FALL SCREENING: Has the patient had 2 falls in the last year or 1 fall with injury or currently using an Ambulatory Assistive Device (Walker, Cane, Wheelchair, Crutches, etc.)? No PATIENT GENDER DATA: Female. status: : No status: NO. PATIENT RELEVANT IMPLANT DATA REVIEWED: Not Applicable RADIOLOGY DEPARTMENT: General X-ray: Exam(s) Completed: Spine X-Ray(s): Lumbar AP / LAT / L5-S1 , WT BEARING PERIPHERAL IV DATA: Not applicable SIGNED BY: RT Idania(R) May 19, 2022 9:28 AM documented in this encounter [facility] 05-19-2022 Note HNO ID: [id number] Author: RT Arnoldo(Laura) Service: ? Author Type: Supervisor Pre Wave Type: Progress Notes Filed: 05/19/2022 11:57 AM Note Text: Radiology Service Progress Note PATIENT NAME: Sangeetha Redd DATE OF SERVICE: May 19, 2022 TIME: 11:56 AM PATIENT IDENTITY VERIFICATION COMPLETED USING TWO (2) IDENTIFIERS: Name and Date of confirmed by patient verbally. FALL SCREENING: Has the patient had 2 falls in the last year or 1 fall with injury or currently using an Ambulatory Assistive Device (Walker, Cane, Wheelchair, Crutches, etc.)? No PATIENT GENDER DATA: Female. status: : No status: NO. PATIENT RELEVANT IMPLANT DATA REVIEWED: Yes RADIOLOGY DEPARTMENT: CT; Exam(s) Completed: Abdomen/Pelvis PERIPHERAL IV DATA: Not applicable SIGNED BY: RT Jone(R) May 19, 2022 11:56 AM [facility] 05-19-2022 History of Present illness Narrative Radiology Service Progress Note PATIENT NAME: Sangeetha Redd DATE OF SERVICE: May 19, 2022 TIME: 9:49 AM PATIENT IDENTITY VERIFICATION COMPLETED USING TWO (2) IDENTIFIERS: Name and Date of confirmed by patient verbally. FALL SCREENING: Has the patient had 2 falls in the last year or 1 fall with injury or currently using an Ambulatory Assistive Device (Walker, Cane, Wheelchair, Crutches, etc.)? No PATIENT GENDER DATA: Female. status: : No status: NO. PATIENT RELEVANT IMPLANT DATA REVIEWED: Not Applicable RADIOLOGY DEPARTMENT: Ultrasound PERIPHERAL IV DATA: Not applicable SIGNED BY: Rajani Perez RDMS T May 19, 2022 9:49 AM documented in this encounter [facility] 05-19-2022 Miscellaneous Notes Done in other TE. Thank you, 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 APRN.JOI Labs need re-ordered. Mary Bates LPN documented in this encounter [facility] 05-19-2022 Miscellaneous Notes New labs are placed. 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 APRN.SOCIOLOGY PROFESSOR documented in this encounter [facility] 05-19-2022 History of Present illness Narrative Radiology Service Progress Note PATIENT NAME: Sangeetha Redd DATE OF SERVICE: May 19, 2022 TIME: 11:56 AM PATIENT IDENTITY VERIFICATION COMPLETED USING TWO (2) IDENTIFIERS: Name and Date of confirmed by patient verbally. FALL SCREENING: Has the patient had 2 falls in the last year or 1 fall with injury or currently using an Ambulatory Assistive Device (Walker, Cane, Wheelchair, Crutches, etc.)? No PATIENT GENDER DATA: Female. status: : No status: NO. PATIENT RELEVANT IMPLANT DATA REVIEWED: Yes RADIOLOGY DEPARTMENT: CT; Exam(s) Completed: Abdomen/Pelvis PERIPHERAL IV DATA: Not applicable SIGNED BY: RT Jone(Laura) May 19, 2022 11:56 AM documented in this encounter [facility] 05-12-2022 Note HNO ID: [id number] Author: Rocio Fung Service: ? Author Type: ? Type: Progress Notes Filed: 05/12/2022 12:24 PM Note Text: POPULATION HEALTH NAVIGATION OUTREACH Action/[facility] Support: Called pt to schedule an appt in Pain Management. Spoke w/ pt, Will call back later on to schedule appts Pt identified by name and : YES, via phone Outreach Outcome/Action Spoke to patient / parent / legal guardian: Patient will return the call or ask for return call Did you use a PCP flex slot to schedule this appointment? N/A Reason for Outreach Care Gap or Scheduling/Wellness visits Payer: Payor: [facility] MEDICAID / Plan: [facility] MEDICAID / Product Type: Medicaid / Care Gap Reviewed:: Specialty Scheduling Reminder: Reminder note to check Health Maintenance for items below Health Maintenance items due: HEPATITIS B(1 of 3 - 3-dose series) Never done DTAP,TDAP,TD(1 - Tdap) Never done MAMMOGRAM due on 06/11/2022 Navigation Signature: Rocio Fung May 12, 2022 12:24 PM [facility] 05-12-2022 Note Patient Outreach (MARY TNAV) SANGEETHA REDD ([id number]) 1980 F Date Time Provider Department 05/12/22 NO PCP NETZAHIDA During your visit today, we recorded the following information about you: Rocio Fung 05/12/2022 12:24 PM Signed POPULATION HEALTH NAVIGATION OUTREACH Action/[facility] Support: Called pt to schedule an appt in Pain Management. Spoke w/ pt, Will call back later on to schedule appts Pt identified by name and : YES, via phone Outreach Outcome/Action Spoke to patient / parent / legal guardian: Patient will return the call or ask for return call Did you use a PCP flex slot to schedule this appointment? N/A Reason for Outreach Care Gap or Scheduling/Wellness visits Payer: Payor: [facility] MEDICAID / Plan: [facility] MEDICAID / Product Type: Medicaid / Care Gap Reviewed:: Specialty Scheduling Reminder: Reminder note to check Health Maintenance for items below Health Maintenance items due: HEPATITIS B(1 of 3 - 3-dose series) Never done DTAP,TDAP,TD(1 - Tdap) Never done MAMMOGRAM due on 06/11/2022 Navigation Signature: Rocio Cervantes May 12, 2022 12:24 PM Allergies As of Date: 05/12/2022 Noted Allergy Reaction ALEVE (NAPROXEN SODIUM) 04/28/2007 11 - Vomiting Comments: Ibuprofen without problems Vomiting with Aleve with one time use METFORMIN 01/23/2017 8 - GI Upset PENICILLINS 04/28/2007 7 - Swelling Date Reviewed: 05/12/2022 Reviewed by: Bertha Rivera LPN - Fully Assessed Prescriptions as of 05/12/2022 - dextroamphetamine-amphetamine (ADDERALL) 10 mg tablet Take 1 tablet by mouth once daily for 30 days. - dextroamphetamine-amphetamine (ADDERALL) 5 mg tablet Take 1 tablet by mouth once daily as needed for up to 30 days. In the afternoon, in addition to am 10mg dose. - levothyroxine (SYNTHROID) 88 mcg tablet Take 1 tablet by mouth once daily. and skip 1 day weekly. - carbonyl iron 15 mg chew Take 1 tablet by mouth twice daily with meals. - gabapentin (NEURONTIN) 100 mg capsule Take 1 capsule by mouth three times daily as needed (nerve pain, low back pain) for up to 30 days. - tiZANidine (ZANAFLEX) 4 mg tablet Take 1 tablet by mouth every 8 hours as needed (muscle spasms). - Cholecalciferol, Vitamin D3, 125 mcg (5,000 unit) cap Take 1 capsule by mouth once daily. - magnesium oxide (MAG-OX) 400 mg (241.3 mg magnesium) tablet Take 1 tablet by mouth once daily. - vitamin b complex (B COMPLETE) tab Take 1 tablet by mouth once daily. - levalbuterol tartrate HFA 45 mcg/actuation inhaler Inhale 1-2 Puffs as instructed every 6 hours as needed for Wheezing/Shortness of Breath. - ondansetron orally disintegrating (ZOFRAN ODT) 4 mg disintegrating tablet Take 1 tablet by mouth every 6 hours as needed for Nausea/Vomiting. - triamcinolone acetonide (NASACORT) 55 mcg nasal inhaler Use 2 Sprays in the nose once daily. In the morning Facility-Administered Medications as of 05/12/2022 - cosyntropin 0.25 mg injection (CORTROSYN) Problem List As Of Date 05/12/2022 Noted Resolved Renal calculi [N20.0] 05/13/2010 03/10/2017 Hypothyroidism, acquired [E03.9] 05/13/2010 Lumbar disc disease [M51.9] 05/13/2010 Polycystic ovary syndrome [E28.2] 06/19/2010 Rosacea [L71.9] 06/19/2010 Dysmetabolic syndrome [E88.81] 01/15/2011 Acute right flank pain [R10.9] 06/28/2012 IBS (irritable bowel syndrome) [K58.9] 08/07/2014 PUD (peptic ulcer disease) [K27.9] 08/07/2014 Bleeding disorder (HCC) [D69.9] 08/07/2014 CADENCE (obstructive sleep apnea) [G47.33] 08/07/2014 Kidney stone [N20.0] 08/28/2014 03/10/2017 Right flank pain [R10.9] 08/28/2014 03/10/2017 Obesity (BMI 30-39.9) [E66.9] 09/15/2014 11/18/2017 Atypical migraine [G43.009] 10/21/2016 Cerebral aneurysm [I67.1] 10/21/2016 Fatigue [R53.83] 10/21/2016 Mouth sores [K13.79] 10/21/2016 Tick bite [W57.XXXA] 10/21/2016 03/10/2017 Myalgia [M79.10] 10/21/2016 Anxiety disorder [F41.9] 10/21/2016 Oral mucosal lesion [K13.70] 12/23/2016 Fibromyalgia [M79.7] 01/04/2017 Obesity, Class III, BMI 40-49.9 (morbid obesity*01/04/2017 Physical deconditioning [R53.81] 01/04/2017 Empty sella (HCC) [E23.6] 09/08/2018 Elevated cortisol level (HCC) [R79.89] 09/08/2018 Thyroid nodule [E04.1] 12/2020 Dyslipidemia [E78.5] 01/14/2021 IFG (impaired fasting glucose) [R73.01] 01/14/2021 Vitamin D deficiency [E55.9] 01/14/2021 Premature menopause [E28.319] 02/05/2022 Surgical menopause [E89.40] 02/05/2022 Impaired concentration [R41.840] 05/12/2022 Chronic midline low back pain without sciatica *05/12/2022 Sacral pain [M53.3] 05/12/2022 Hair loss [L65.9] 05/12/2022 History of renal stone [Z87.442] 05/12/2022 Adnexal cyst [N94.9] 05/12/2022 Encounter Status:Closed by ROCIO ENCINAS on 05/12/22 [facility] 05-12-2022 Note HNO ID: [id number] Author: Jose Luis [place], DO Service: ? Author Type: Physician Type: Progress Notes Filed: 05/12/2022 11:16 AM Note Text: CC: Sangeetha Redd is a 42 year old female who presents to the office for follow up HPI: Seen in office on 02/05/2022, at that time Overall she is feeling okay, she is day 9 post op from bilateral oophorectomy for ovarian cyst/masses by Dr. Xi Camacho at [facility]. She had laparoscopic vaginal assisted surgery. Struggling some with back pain after surgery as well as tingling and discomfort in left area of abdomen at skin surface that comes and goes. No urinary symptoms. No bowel symptoms. Is moving but slower than usual. Is off work at this time. Currently She had CT abd/pelvis in Feb when seen by Rosita Flores CNP due to residual abdominal/pelvic pain in the left lower abdomen/pelvis, was found on CT to have a 1.8 cm left pelvic cyst/mass. She then had repeat testing with pelvic US on 04/30/22 which showed a left pelvic cyst 1 x 1.1 cm in size. She is going to be meeting with Dr. Mckinley again this next week to determine next steps since she is still getting some of this discomfort that comes and goes Right flank/kidney pain, hx of kidney stones in the past, s/p surgical intervention in the past by Urology Dr. Britton. No fevers or chills. Pain comes and goes. No vomiting, no nausea. ADD, stable, taking Adderall medication as prescribed with benefit Hair thinning/loss, present x months, did have covid 19 infection in Dec, also did have 3 surgeries/anesthesias in the past year as well. Unsure cause. Has started to take a hair supplement to see if this helps her. Low back pain, tailbone pain, present x years, off and on, worse after her surgery. No bowel or bladder changes. Worse with prolonged standing and walking. No paresthesias. PAST MEDICAL HISTORY Diagnosis Date Anxiety Cerebral aneurysm Complicated migraine Endometriosis 75% improvement in abdominal pain post lap surgery Hypothyroidism IBS (irritable bowel syndrome) Insulin resistance Lactose intolerance in adult Left thyroid nodule 12/2020 repeat thyroid US 12/2021 Low HDL (under 40) Low serum progesterone worsening symptoms with progesterone rx Lumbar disc disease 05/13/2010 Migraines CADENCE (obstructive sleep apnea) Last polysomnogram in 2012, last use in 2012 Personal history of kidney stones Polycystic ovary syndrome 06/19/2010 Protein S deficiency (HCC) 2007 clotting disorder PUD (peptic ulcer disease) 2009 treated medically, repeat EGD neg in 2014 Renal calculi 2009 associated to low citric acid, h/o hypercalciuria Rosacea 06/19/2010 Shingles 2010 right flank area into right upper abdomen Vitamin D deficiency PAST SURGICAL HISTORY Procedure Laterality Date APPENDECTOMY COLONOSCOPY FLX DX W/COLLJ SPEC WHEN PFRMD 08/16/2014 Colonoscopy-repeat at 50 ESOPHAGOGASTRODUODENOSCOPY TRANSORAL DIAGNOSTIC 08/16/2014 EGD LAPAROSCOPY SURG CHOLECYSTECTOMY 04/27/2003 Cholecystectomy, lap OVARIAN CYSTECTOMY Bilateral 07/30/2021 PAST SURGICAL HISTORY OF Laparoscopy for endometriosis PAST SURGICAL HISTORY OF dANDc PAST SURGICAL HISTORY OF wisdom teeth PYELOTOMY W/REMOVAL CALCULUS 04/27/2008 multiple Social History: Social History Tobacco Use Smoking status: Never Smokeless tobacco: Never Vaping Use Vaping Use: Never used Substance Use Topics Alcohol use: Yes Comment: twice a year- socially Drug use: No FAMILY HISTORY Problem Relation Age of Onset Breast Cancer Mother 39 Arthritis Mother Fibromyalgia other (irregular heartbeat) Mother Hypertension Maternal Grandmother Alzheimer's Disease Maternal Grandmother Arthritis Maternal Grandmother other (dementia) Maternal Grandmother Diabetes Brother type 1 Stroke Maternal Grandfather other (Eosinophilic esophagitis) Son other (Abdominal migraines) Son ADD/ADHD Daughter Arthritis Father Thyroid Father Hypertension Father Thyroid Cancer Sister Diabetes Brother Type 1 Current Outpatient prescriptions: dextroamphetamine-amphetamine (ADDERALL) 10 mg tabletTake 1 tablet by mouth once daily for 30 days.Disp: 30 tabletRfl: 0 dextroamphetamine-amphetamine (ADDERALL) 5 mg tabletTake 1 tablet by mouth once daily as needed for up to 30 days. In the afternoon, in addition to am 10mg dose.Disp: 30 tabletRfl: 0 levothyroxine (SYNTHROID) 88 mcg tabletTake 1 tablet by mouth once daily. and skip 1 day weekly.Disp: 90 tabletRfl: 3 carbonyl iron 15 mg chewTake 1 tablet by mouth twice daily with meals.Disp: 60 tabletRfl: 2 gabapentin (NEURONTIN) 100 mg capsuleTake 1 capsule by mouth three times daily as needed (nerve pain, low back pain) for up to 30 days.Disp: 60 capsuleRfl: 1 tiZANidine (ZANAFLEX) 4 mg tabletTake 1 tablet by mouth every 8 hours as needed (muscle spasms).Disp: 15 tabletRfl: 0 Cholecalciferol, Vitamin D3 (more content not included)... [facility] 05-12-2022 History of Present illness Narrative CC: Sangeetha Redd is a 42 year old female who presents to the office for follow up HPI: Seen in office on 02/05/2022, at that time Overall she is feeling okay, she is day 9 post op from bilateral oophorectomy for ovarian cyst/masses by Dr. Xi Camacho at [facility]. She had laparoscopic vaginal assisted surgery. Struggling some with back pain after surgery as well as tingling and discomfort in left area of abdomen at skin surface that comes and goes. No urinary symptoms. No bowel symptoms. Is moving but slower than usual. Is off work at this time. Currently She had CT abd/pelvis in Feb when seen by Rosita Flores CNP due to residual abdominal/pelvic pain in the left lower abdomen/pelvis, was found on CT to have a 1.8 cm left pelvic cyst/mass. She then had repeat testing with pelvic US on 04/30/22 which showed a left pelvic cyst 1 x 1.1 cm in size. She is going to be meeting with Dr. Mckinley again this next week to determine next steps since she is still getting some of this discomfort that comes and goes Right flank/kidney pain, hx of kidney stones in the past, s/p surgical intervention in the past by Urology Dr. Britton. No fevers or chills. Pain comes and goes. No vomiting, no nausea. ADD, stable, taking Adderall medication as prescribed with benefit Hair thinning/loss, present x months, did have covid 19 infection in Dec, also did have 3 surgeries/anesthesias in the past year as well. Unsure cause. Has started to take a hair supplement to see if this helps her. Low back pain, tailbone pain, present x years, off and on, worse after her surgery. No bowel or bladder changes. Worse with prolonged standing and walking. No paresthesias. PAST MEDICAL HISTORY Diagnosis Date Anxiety Cerebral aneurysm Complicated migraine Endometriosis 75% improvement in abdominal pain post lap surgery Hypothyroidism IBS (irritable bowel syndrome) Insulin resistance Lactose intolerance in adult Left thyroid nodule 12/2020 repeat thyroid US 12/2021 Low HDL (under 40) Low serum progesterone worsening symptoms with progesterone rx Lumbar disc disease 05/13/2010 Migraines CADENCE (obstructive sleep apnea) Last polysomnogram in 2012, last use in 2012 Personal history of kidney stones Polycystic ovary syndrome 06/19/2010 Protein S deficiency (HCC) 2007 clotting disorder PUD (peptic ulcer disease) 2010 treated medically, repeat EGD neg in 2014 Renal calculi 2009 associated to low citric acid, h/o hypercalciuria Rosacea 06/19/2010 Shingles 2010 right flank area into right upper abdomen Vitamin D deficiency PAST SURGICAL HISTORY Procedure Laterality Date APPENDECTOMY COLONOSCOPY FLX DX W/COLLJ SPEC WHEN PFRMD 08/16/2014 Colonoscopy-repeat at 50 ESOPHAGOGASTRODUODENOSCOPY TRANSORAL DIAGNOSTIC 08/16/2014 EGD LAPAROSCOPY SURG CHOLECYSTECTOMY 04/27/2003 Cholecystectomy, lap OVARIAN CYSTECTOMY Bilateral 07/30/2021 PAST SURGICAL HISTORY OF Laparoscopy for endometriosis PAST SURGICAL HISTORY OF d&c PAST SURGICAL HISTORY OF wisdom teeth PYELOTOMY W/REMOVAL CALCULUS 04/27/2008 multiple Social History: Social History Tobacco Use Smoking status: Never Smokeless tobacco: Never Vaping Use Vaping Use: Never used Substance Use Topics Alcohol use: Yes Comment: twice a year- socially Drug use: No FAMILY HISTORY Problem Relation Age of Onset Breast Cancer Mother 39 Arthritis Mother Fibromyalgia other (irregular heartbeat) Mother Hypertension Maternal Grandmother Alzheimer's Disease Maternal Grandmother Arthritis Maternal Grandmother other (dementia) Maternal Grandmother Diabetes Brother type 1 Stroke Maternal Grandfather other (Eosinophilic esophagitis) Son other (Abdominal migraines) Son ADD/ADHD Daughter Arthritis Father Thyroid Father Hypertension Father Thyroid Cancer Sister Diabetes Brother Type 1 Current Outpatient prescriptions: dextroamphetamine-amphetamine (ADDERALL) 10 mg tablet^Take 1 tablet by mouth once daily for 30 days.^Disp: 30 tablet^Rfl: 0 dextroamphetamine-amphetamine (ADDERALL) 5 mg tablet^Take 1 tablet by mouth once daily as needed for up to 30 days. In the afternoon, in addition to am 10mg dose.^Disp: 30 tablet^Rfl: 0 levothyroxine (SYNTHROID) 88 mcg tablet^Take 1 tablet by mouth once daily. and skip 1 day weekly.^Disp: 90 tablet^Rfl: 3 carbonyl iron 15 mg chew^Take 1 tablet by mouth twice daily with meals.^Disp: 60 tablet^Rfl: 2 gabapentin (NEURONTIN) 100 mg capsule^Take 1 capsule by mouth three times daily as needed (nerve pain, low back pain) for up to 30 days.^Disp: 60 capsule^Rfl: 1 tiZANidine (ZANAFLEX) 4 mg tablet^Take 1 tablet by mouth every 8 hours as needed (muscle spasms).^Disp: 15 tablet^Rfl: 0 Cholecalciferol, Vitamin D3, 125 mcg (5,000 unit) cap^Take 1 capsule by mouth once daily.^Disp: 90 capsule^Rfl: 3 magnesium oxide (MAG-OX) 400 mg (241.3 mg magnesium) tablet^Take 1 tablet by mouth once daily.^Disp: 90 tablet^Rfl: 1 vitamin b complex (B COMPLETE) tab^Take 1 tablet by mouth once daily.^Disp: 90 tablet^Rfl: 1 levalbuterol tartrate HFA 45 mcg/actuation inhaler^Inhale 1-2 Puffs as instructed every 6 hours as needed for Wheezing/Shortness of Breath.^Disp: 15 g^Rfl: 0 ondansetron orally disintegrating (ZOFRAN ODT) 4 mg disintegrating tablet^Take 1 tablet by mouth every 6 hours as needed for Nausea/Vomiting.^Disp: 20 tablet^Rfl: 1 triamcinolone acetonide (NASACORT) 55 mcg nasal inhaler^Use 2 Sprays in the nose once daily. In the morning^Disp: 3 Bottle^Rfl: 1 Allergies: ALLERGIES Allergen Reactions Aleve [Naproxen Sod* Vomiting Ibuprofen without problems Vomiting with Aleve with one time use Metformin GI Upset Penicillins Swelling ROS: See HPI PE: 05/12/22 1007 BP: 120/80 Pulse: 64 Resp: 16 Temp: 36.1 C (97 F) TempSrc: Left Tympanic Weight: 88.9 kg (196 lb) Gen: A&O, NAD, non-toxic appearing, appears uncomfortable, cooperative HEENT: NT/AC, PERRLA, EOMs intact b/l, nares clear and patent b/l, pharynx without erythema, exudate or lesions. Uvula midline. MMM Neck: supple, No cervical LAD, no thyromegaly, no carotid bruits CV: RRR, normal S1 and S2, no murmurs, no gallops, no rubs, Pulses 2+ and symmetric in UE and LE b/l Lungs: normal respiratory effort, CTA b/l, no wheezing or rhonchi or rales Abd: soft, NT, ND, +BS, no hepatosplenomegaly + right CVA TTP MS: sacral and lower lumbar discomfort right >left side and at left SI joint and sacral area Neuro: CN II-XII intact b/l, strength 5/5 b/l UE and LE, DTRs 2/4 UE and LE, sensation intact. No edema legs, normal pulses Skin: warm, dry, intact, No rashes or lesions on exposed skin. ASSESSMENT/PLAN: 1. Acute right flank pain - ICD9: 789.09, 338.19, ICD10: R10.9 (primary diagnosis) - need for urinalysis and culture and CT flank, hx of stones of ureters/kidneys in the past. - CT FLANK WO IVCON - URINALYSIS, WITH MICROSCOPIC - URINE CULTURE 2. History of renal stone - ICD9: V13.01, ICD10: Z87.442 See above - CT FLANK WO IVCON - URINALYSIS, WITH MICROSCOPIC - URINE CULTURE 3. Hair loss - ICD9: 704.00, ICD10: L65.9 Recheck labs, US thyroid - hx of thyroid nodule, may also be related to previous covid 19 infection and anesthesia for surgeries. - US THYROID/PARATHYROID - RBC FOLATE - COMP METABOLIC PANEL - TSH BLD - T4 FREE/FREE THYROX - T3 FREE BLD - VITAMIN B6/PYRIDOXIN - VITAMIN B12 BLOOD - VITAMIN D 25 HYDROXY - THYROID PEROXIDASE ANTIBODY BLOOD 4. Thyroid nodule - ICD9: 241.0, ICD10: E04.1 - recheck labs and thyroid US - US THYROID/PARATHYROID - RBC FOLATE - COMP METABOLIC PANEL - TSH BLD - T4 FREE/FREE THYROX - T3 FREE BLD - VITAMIN B6/PYRIDOXIN - VITAMIN B12 BLOOD - VITAMIN D 25 HYDROXY - THYROID PEROXIDASE ANTIBODY BLOOD 5. Sacral pain - ICD9: 724.6, ICD10: M53.3 - xray as ordered, referral to pain mgmt if symptoms continue - XR SACRUM/COCCYX 3V AP/LAT - XR LUMBAR GENERAL 3V AP/LAT/L5-S1 - CONSULT TO PAIN MGT 6. Chronic midline low back pain without sciatica - ICD9: 724.2, 338.29, ICD10: M54.50, G89.29 - xray as ordered, referral to pain mgmt if symptoms continue - XR SACRUM/COCCYX 3V AP/LAT - XR LUMBAR GENERAL 3V AP/LAT/L5-S1 - CONSULT TO PAIN MGT 7. Impaired concentration - ICD9: 799.51, ICD10: R41.840 Stable, rx refilled. - DEXTROAMPHETAMINE-AMPHETAMINE 10 MG TABLET - DEXTROAMPHETAMINE-AMPHETAMINE 5 MG TABLET 8. Adnexal cyst - ICD9: 625.8, ICD10: N94.9 - f/u with [employer]ENER whom performed hysterectomy and oophorectomy recently Jose Luis Toledo DO PDMP website checked and validated. All prescriptions have been APPROPRIATELY filled. No suspicious activity was identified. 05/12/2022 by Jose Luis Toledo DO To ER if develops chest pain, shortness of breath, or severe worsening of symptoms. Discussed risks, benefits, alternatives, and potential side effects of medications. Patient expressed understanding and agreed with the plan. Jose Luis Toledo DO [address] [place] [address] documented in this encounter [facility] 03-03-2022 History of Present illness Narrative Radiology Service Progress Note DATE OF SERVICE: March 03, 2022 TIME: 12:47 PM PATIENT IDENTITY VERIFICATION COMPLETED USING TWO (2) STANDARD IDENTIFIERS: Name and Date of confirmed by patient verbally. FALL SCREENING: Has the patient had 2 falls in the last year or 1 fall with injury or currently using an Ambulatory Assistive Device (Walker, Cane, Wheelchair, Crutches, etc.)? No PATIENT GENDER DATA: Female. status: : No status: NO. PATIENT RELEVANT IMPLANT DATA REVIEWED: Yes ALLERGIES: Reviewed and unchanged CONTRAST ALLERGY: NO. EXAM: CT -CONTRAST INDUCED NEPHROPATHY RISK FACTORS: Not applicable CREATININE: Creatinine Date Value Ref Range Status 01/20/2022 0.58 0.58 - 0.96 mg/dL Final 12/09/2021 0.69 0.58 - 0.96 mg/dL Final 08/12/2021 0.65 0.58 - 0.96 mg/dL Final Estimated Glomerular Filtration Rate Date Value Ref Range Status 01/20/2022 116 >=60 mL/min/1.73m Final Comment: Estimated Glomerular Filtration Rate (eGFR) is calculated using the 2020 CKD-EPI creatinine equation. This equation utilizes serum creatinine, sex, and age as parameters. The creatinine assay has traceable calibration to isotope dilution-mass spectrometry. Refer to KDIGO guidelines for clinical interpretation. In patients with unstable renal function, e.g. those with acute kidney injury, the eGFR may not accurately reflect actual GFR. eGFR- Date Value Ref Range Status 01/10/2021 >60 Final P.O.C.T. RESULTS: POC done: Yes, See Lab Tab March 03, 2022 TREATMENT: N/A PERIPHERAL IV DATA: Ambulatory: A peripheral IV was started in the Right hand with a Angio cath: 22 gauge. RADIOLOGY DEPARTMENT: CT; Exam(s) Completed: Abdomen/Pelvis SIGNATURE: RT Jone(R) PATIENT NAME: Sangeetha Redd DATE: March 03, 2022 TIME: 12:47 PM documented in this encounter [facility] 02-27-2022 History of Present illness Narrative Chief Complaint Patient presents with: Follow Up: Surgery on 01/27. Removal of both ovaries. Stabbing pain lower back and lower abdomen since surgery. Possible blood in stool. HPI Sangeetha Redd is a 42 year old female who presents here today for Above Complaints.. Today: Lower back pain that is chronic, present prior to her surgery. Takes a muscle relaxer chronically at nighttime. It does spasm at time.s LLQ of her abdomen is painful. Was told during her recent oophorectomy surgery that she had a lot of adhesions to her bowel. Is a constant dull ache, but if moving certain ways is a shooting stabbing pain. Pain is mostly controlled with Tylenol and ibuprofen. Possible blood in her stool. 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 Past medical history, appointments, medications, allergies reviewed. Previous Medical History PAST MEDICAL HISTORY Diagnosis Date Anxiety Cerebral aneurysm Complicated migraine Endometriosis 75% improvement in abdominal pain post lap surgery Hypothyroidism IBS (irritable bowel syndrome) Insulin resistance Lactose intolerance in adult Left thyroid nodule 12/2020 repeat thyroid US 12/2021 Low HDL (under 40) Low serum progesterone worsening symptoms with progesterone rx Lumbar disc disease 05/13/2010 Migraines CADENCE (obstructive sleep apnea) Last polysomnogram in 2012, last use in 2012 Personal history of kidney stones Polycystic ovary syndrome 06/19/2010 Protein S deficiency (HCC) 2008 clotting disorder PUD (peptic ulcer disease) 2009 treated medically, repeat EGD neg in 2014 Renal calculi 2009 associated to low citric acid, h/o hypercalciuria Rosacea 06/19/2010 Shingles 2010 right flank area into right upper abdomen Vitamin D deficiency Previous Surgical History PAST SURGICAL HISTORY Procedure Laterality Date APPENDECTOMY COLONOSCOPY FLX DX W/COLLJ SPEC WHEN PFRMD 08/16/2014 Colonoscopy-repeat at 50 ESOPHAGOGASTRODUODENOSCOPY TRANSORAL DIAGNOSTIC 08/16/2014 EGD LAPAROSCOPY SURG CHOLECYSTECTOMY 04/27/2003 Cholecystectomy, lap OVARIAN CYSTECTOMY Bilateral 07/30/2021 PAST SURGICAL HISTORY OF Laparoscopy for endometriosis PAST SURGICAL HISTORY OF d&c PAST SURGICAL HISTORY OF wisdom teeth PYELOTOMY W/REMOVAL CALCULUS 04/27/2008 multiple Family History FAMILY HISTORY Problem Relation Age of Onset Breast Cancer Mother 39 Arthritis Mother Fibromyalgia other (irregular heartbeat) Mother Hypertension Maternal Grandmother Alzheimer's Disease Maternal Grandmother Arthritis Maternal Grandmother other (dementia) Maternal Grandmother Diabetes Brother type 1 Stroke Maternal Grandfather other (Eosinophilic esophagitis) Son other (Abdominal migraines) Son ADD/ADHD Daughter Arthritis Father Thyroid Father Hypertension Father Thyroid Cancer Sister Diabetes Brother Type 1 Patient Allergies ALLERGIES Allergen Reactions Aleve [Naproxen Sod* Vomiting Ibuprofen without problems Vomiting with Aleve with one time use Metformin GI Upset Penicillins Swelling Current Medications Current Outpatient Medications on File Prior to Visit Medication Sig dextroamphetamine-amphetamine (ADDERALL) 10 mg tablet Take 1 tablet by mouth once daily for 30 days. dextroamphetamine-amphetamine (ADDERALL) 5 mg tablet Take 1 tablet by mouth once daily as needed for up to 30 days. In the afternoon, in addition to am 10mg dose. carbonyl iron 15 mg chew Take 1 tablet by mouth twice daily with meals. gabapentin (NEURONTIN) 100 mg capsule Take 1 capsule by mouth three times daily as needed (nerve pain, low back pain) for up to 30 days. tiZANidine (ZANAFLEX) 4 mg tablet Take 1 tablet by mouth every 8 hours as needed (muscle spasms). levothyroxine (SYNTHROID) 88 mcg tablet Take 1 tablet by mouth once daily. and skip 1 day weekly. Cholecalciferol, Vitamin D3, 125 mcg (5,000 unit) cap Take 1 capsule by mouth once daily. magnesium oxide (MAG-OX) 400 mg (241.3 mg magnesium) tablet Take 1 tablet by mouth once daily. vitamin b complex (B COMPLETE) tab Take 1 tablet by mouth once daily. levalbuterol tartrate HFA 45 mcg/actuation inhaler Inhale 1-2 Puffs as instructed every 6 hours as needed for Wheezing/Shortness of Breath. ondansetron orally disintegrating (ZOFRAN ODT) 4 mg disintegrating tablet Take 1 tablet by mouth every 6 hours as needed for Nausea/Vomiting. triamcinolone acetonide (NASACORT) 55 mcg nasal inhaler Use 2 Sprays in the nose once daily. In the morning Current Facility-Administered Medications on File Prior to Visit Medication cosyntropin 0.25 mg injection (CORTROSYN) Social History Social History Tobacco Use Smoking status: Never Smokeless tobacco: Never Vaping Use Vaping Use: Never used Substance Use Topics Alcohol use: Yes Comment: twice a year- socially Drug use: No Review of Symptoms REVIEW OF SYSTEMS See HPI, otherwise negative EXAM: BP 128/84 (BP Site: Left Arm, BP Position: Sitting, BP Cuff Size: Regular Adult) Pulse 77 Temp 36.7 C (98 F) (Temporal) Resp 16 Wt 86.6 kg (191 lb) LMP 05/30/2019 (Exact Date) SpO2 100% BMI 37.30 kg/m General Appearance: Well appearing, alert, in no acute distress, well-hydrated, well nourished.. Lungs: Lungs clear to auscultation. No wheezing, rhonchi, rales.. Heart: RRR without murmur, gallop, or rubs. No ectopy. Abdomen: Abdomen soft, bowel sounds normal. No masses, organomegaly. Moderate Health Maintenance List HEPATITIS B(1 of 3 - 3-dose series) Never done DTAP,TDAP,TD(1 - Tdap) Never done DEPRESSION ASSESSMENT Never done INFLUENZA(1) due on 12/26/2021 COVID-19 VACCINE(1) due on 03/11/2022 HEPATITIS C SCREENING due on 12/05/2022 HIV SCREENING due on 12/05/2022 MAMMOGRAM due on 06/11/2022 ANNUAL PCP TEAM CHRONIC DISEASE VISIT due on 02/05/2023 PAP TESTING due on 06/25/2025 HPV TESTING due on 06/25/2025 Data reviewed Previous records, office notes ASSESSMENT/PLAN: 1. Abdominal pain, LLQ - ICD9: 789.04, ICD10: R10.32 (primary diagnosis) Concern for post-surgical complication. UA to r/o contributing cause. OB stool r/o possible slow GI bleed. CT scan with concern for post-surgical complication. - IV CONTRAST (RADIOLOGY PROCEDURE) - ENTERIC CONTRAST (RADIOLOGY PROCEDURE) - URINALYSIS WITH MICROSCOPIC, REFLEX CULTURE - OCCULT BLD EXAM-DIAG 2. Hx of bilateral oophorectomy - ICD9: V45.77, ICD10: Z90.722 Concern for post-surgical complication. UA to r/o contributing cause. OB stool r/o possible slow GI bleed. CT scan with concern for post-surgical complication. - IV CONTRAST (RADIOLOGY PROCEDURE) - ENTERIC CONTRAST (RADIOLOGY PROCEDURE) - URINALYSIS WITH MICROSCOPIC, REFLEX CULTURE - OCCULT BLD EXAM-DIAG 3. Left lower quadrant abdominal pain - ICD9: 789.04, ICD10: R10.32 Concern for post-surgical complication. UA to r/o contributing cause. OB stool r/o possible slow GI bleed. CT scan with concern for post-surgical complication. - CT ABD/PEL W IVCON 4. Bloody stool - ICD9: 578.1, ICD10: K92.1 Concern for post-surgical complication. UA to r/o contributing cause. OB stool r/o possible slow GI bleed. CT scan with concern for post-surgical complication. - IV CONTRAST (RADIOLOGY PROCEDURE) - ENTERIC CONTRAST (RADIOLOGY PROCEDURE) - URINALYSIS WITH MICROSCOPIC, REFLEX CULTURE - OCCULT BLD EXAM-DIAG 5. Chronic midline low back pain without sciatica - ICD9: 724.2, 338.29, ICD10: M54.50, G89.29 Concern for post-surgical complication. UA to r/o contributing cause. OB stool r/o possible slow GI bleed. CT scan with concern for post-surgical complication. - IV CONTRAST (RADIOLOGY PROCEDURE) - ENTERIC CONTRAST (RADIOLOGY PROCEDURE) - URINALYSIS WITH MICROSCOPIC, REFLEX CULTURE - OCCULT BLD EXAM-DIAG Roxy Flores APRN.CNP documented in this encounter [facility] 02-21-2022 Miscellaneous Notes Please see TE 02/21 Giana Perdue Ma documented in this encounter [facility] 02-05-2022 History of Present illness Narrative CC: Sangeetha Redd is a 42 year old female who presents to the office for follow up HPI: Overall she is feeling okay, she is day 9 post op from bilateral oophorectomy for ovarian cyst/masses by Dr. Xi Camacho at [facility]. She had laparoscopic vaginal assisted surgery. Struggling some with back pain after surgery as well as tingling and discomfort in left area of abdomen at skin surface that comes and goes. No urinary symptoms. No bowel symptoms. Is moving but slower than usual. Is off work at this time. PAST MEDICAL HISTORY Diagnosis Date Anxiety Cerebral aneurysm Complicated migraine Endometriosis 75% improvement in abdominal pain post lap surgery Hypothyroidism IBS (irritable bowel syndrome) Insulin resistance Lactose intolerance in adult Left thyroid nodule 12/2020 repeat thyroid US 12/2021 Low HDL (under 40) Low serum progesterone worsening symptoms with progesterone rx Lumbar disc disease 05/13/2010 Migraines CADENCE (obstructive sleep apnea) Last polysomnogram in 2012, last use in 2012 Personal history of kidney stones Polycystic ovary syndrome 06/19/2010 Protein S deficiency (HCC) 2007 clotting disorder PUD (peptic ulcer disease) 2009 treated medically, repeat EGD neg in 2014 Renal calculi 2009 associated to low citric acid, h/o hypercalciuria Rosacea 06/19/2010 Shingles 2010 right flank area into right upper abdomen Vitamin D deficiency PAST SURGICAL HISTORY Procedure Laterality Date APPENDECTOMY COLONOSCOPY FLX DX W/COLLJ SPEC WHEN PFRMD 08/16/2014 Colonoscopy-repeat at 50 ESOPHAGOGASTRODUODENOSCOPY TRANSORAL DIAGNOSTIC 08/16/2014 EGD LAPAROSCOPY SURG CHOLECYSTECTOMY 04/27/2003 Cholecystectomy, lap OVARIAN CYSTECTOMY Bilateral 07/30/2021 PAST SURGICAL HISTORY OF Laparoscopy for endometriosis PAST SURGICAL HISTORY OF d&c PAST SURGICAL HISTORY OF wisdom teeth PYELOTOMY W/REMOVAL CALCULUS 04/27/2008 multiple Current Outpatient Medications Medication Sig carbonyl iron 15 mg chew Take 1 tablet by mouth twice daily with meals. gabapentin (NEURONTIN) 100 mg capsule Take 1 capsule by mouth three times daily as needed (nerve pain, low back pain) for up to 30 days. dextroamphetamine-amphetamine (ADDERALL) 10 mg tablet Take 1 tablet by mouth once daily for 30 days. dextroamphetamine-amphetamine (ADDERALL) 5 mg tablet Take 1 tablet by mouth once daily as needed for up to 30 days. In the afternoon, in addition to am 10mg dose. LORazepam (ATIVAN) 0.5 mg Take 1 tablet by mouth once daily as needed for up to 30 days. tiZANidine (ZANAFLEX) 4 mg tablet Take 1 tablet by mouth every 8 hours as needed (muscle spasms). levothyroxine (SYNTHROID) 88 mcg tablet Take 1 tablet by mouth once daily. and skip 1 day weekly. Cholecalciferol, Vitamin D3, 125 mcg (5,000 unit) cap Take 1 capsule by mouth once daily. magnesium oxide (MAG-OX) 400 mg (241.3 mg magnesium) tablet Take 1 tablet by mouth once daily. vitamin b complex (B COMPLETE) tab Take 1 tablet by mouth once daily. levalbuterol tartrate HFA 45 mcg/actuation inhaler Inhale 1-2 Puffs as instructed every 6 hours as needed for Wheezing/Shortness of Breath. ondansetron orally disintegrating (ZOFRAN ODT) 4 mg disintegrating tablet Take 1 tablet by mouth every 6 hours as needed for Nausea/Vomiting. triamcinolone acetonide (NASACORT) 55 mcg nasal inhaler Use 2 Sprays in the nose once daily. In the morning Current Facility-Administered Medications Medication Dose Route Frequency cosyntropin 0.25 mg injection (CORTROSYN) 0.25 mg INTRAMUSCULAR As Directed ALLERGIES Allergen Reactions Aleve [Naproxen Sod* Vomiting Ibuprofen without problems Vomiting with Aleve with one time use Metformin GI Upset Penicillins Swelling Social History Tobacco Use Smoking status: Never Smokeless tobacco: Never Vaping Use Vaping Use: Never used Substance Use Topics Alcohol use: Yes Comment: twice a year- socially Drug use: No ROS: See HPI PE: BP 126/80 Pulse 82 Resp 16 Wt 192 lb (87.1kg) LMP 05/30/2019 Gen: A&OX3, NAD, non-toxic appearing HEENT: PERRLA, EOMs intact b/l, nares without drainage, pharynx without erythema, exudate, lesions, or drainage. Uvula midline. Neck: No LAD, no thyromegaly, no meningismus. CV: RRR, no murmur Lungs: CTA b/l, no wheezing Skin: see below Incision areas from laparoscopic ports are irritated appearing without drainage or redness. Paraspinal muscle tension lumbar spine without spinal TTP ASSESSMENT/PLAN: 1. Premature menopause - ICD9: 256.31, ICD10: E28.319 (primary diagnosis) - follow up with [facility], she is s/p bilateral oophorectomy at this time. May want to at least consider supplements 2. Surgical menopause - ICD9: 627.4, ICD10: E89.40 See above 3. Neuritis - ICD9: 729.2, ICD10: M79.2 - rx as below, secondary to recent abdominal pelvic surgery, f/u with surgeon as well. - GABAPENTIN 100 MG CAPSULE 4. Acute midline low back pain without sciatica - ICD9: 724.2, ICD10: M54.50 See above, secondary to positioning likely and recent surgery, okay for trial of gabapentin and stop once symptoms are improved - GABAPENTIN 100 MG CAPSULE Jose Luis Toledo DO Return if no improvement. Follow up with Jose Luis Toledo DO. To ER if develops chest pain, shortness of breath Discussed risks, benefits, alternatives, and potential side effects of medications. Patient/Guardian expressed understanding and agreed with the plan. See patient instructions. Jose Luis Toledo DO [address] [place] [address] documented in this encounter [facility] 01-27-2022 History of Present illness Narrative Pt discharged via wheelchair with belongings, paperwork, and meds in hand. No concerns noted Pt nauseated with zofran given. Pt ambulated to bathroom with minimal assist. Discharge instructions given to pt/pt mom. Both acknowledge follow up, meds, and home going instructions. Meds to beds at documented in this encounter [facility] Work Phone: 01-27-2022 Hospital Discharge instructions Inge Garcia DO - 01/27/2022 1:49 PM EDT Please follow your post operative care instructions given to you by your Pitch Worker Oncologist's office at your pre operative visit. Please call the office with questions or concerns and be sure to follow up at your scheduled post operative visit. documented in this encounter [facility] Work Phone: 01-21-2022 History of Present illness Narrative Chief Complaint Patient presents with: Telemedicine Patient was offered a virtual/telemedicine appointment in lieu of an office visit due to recommendations to reduce patient exposure to COVID-19. Video was used for evaluation of this patient. Patient is aware of limitations of performing the visit without a face to face visit in the office setting and agrees. Patient agrees to the visit: Yes Patient Location: [facility] Sangeetha Redd is a 42 year old female who is contacted today for a virtual visit This is an established patient of Dr. Jose Luis Toledo DO Reports: Pt presents today with + covid test results. She started with not feeling well on Thursday or Thursday. Was seen on last week w/ hair loss and body aches. Went to see Surgeon yesterday at [facility] to schedule surgery to have ovaries removed. She went to look at her lab tests last night, and then saw that her covid test has been positive. Symptoms were mild Never had a fever. Scheduled for surgery on Thursday and unsure if she will be able to proceed with this. Past medical history, appointments, medications, allergies reviewed 01/21/2022 Previous Medical History PAST MEDICAL HISTORY Diagnosis Date Anxiety Cerebral aneurysm Complicated migraine Endometriosis 75% improvement in abdominal pain post lap surgery Hypothyroidism IBS (irritable bowel syndrome) Insulin resistance Lactose intolerance in adult Left thyroid nodule 12/2020 repeat thyroid US 12/2021 Low HDL (under 40) Low serum progesterone worsening symptoms with progesterone rx Lumbar disc disease 05/13/2010 Migraines CADENCE (obstructive sleep apnea) Last polysomnogram in 2012, last use in 2012 Personal history of kidney stones Polycystic ovary syndrome 06/19/2010 Protein S deficiency (HCC) 2007 clotting disorder PUD (peptic ulcer disease) 2009 treated medically, repeat EGD neg in 2014 Renal calculi 2009 associated to low citric acid, h/o hypercalciuria Rosacea 06/19/2010 Shingles 2010 right flank area into right upper abdomen Vitamin D deficiency Previous Surgical History PAST SURGICAL HISTORY Procedure Laterality Date APPENDECTOMY COLONOSCOPY FLX DX W/COLLJ SPEC WHEN PFRMD 08/16/2014 Colonoscopy-repeat at 50 ESOPHAGOGASTRODUODENOSCOPY TRANSORAL DIAGNOSTIC 08/16/2014 EGD LAPAROSCOPY SURG CHOLECYSTECTOMY 04/27/2003 Cholecystectomy, lap OVARIAN CYSTECTOMY Bilateral 07/30/2021 PAST SURGICAL HISTORY OF Laparoscopy for endometriosis PAST SURGICAL HISTORY OF d&c PAST SURGICAL HISTORY OF wisdom teeth PYELOTOMY W/REMOVAL CALCULUS 04/27/2008 multiple Family History FAMILY HISTORY Problem Relation Age of Onset Breast Cancer Mother 39 Arthritis Mother Fibromyalgia other (irregular heartbeat) Mother Hypertension Maternal Grandmother Alzheimer's Disease Maternal Grandmother Arthritis Maternal Grandmother other (dementia) Maternal Grandmother Diabetes Brother type 1 Stroke Maternal Grandfather other (Eosinophilic esophagitis) Son other (Abdominal migraines) Son ADD/ADHD Daughter Arthritis Father Thyroid Father Hypertension Father Thyroid Cancer Sister Diabetes Brother Type 1 Patient Allergies ALLERGIES Allergen Reactions Aleve [Naproxen Sod* Vomiting Ibuprofen without problems Vomiting with Aleve with one time use Metformin GI Upset Penicillins Swelling Current Medications Current Outpatient Medications on File Prior to Visit Medication Sig dextroamphetamine-amphetamine (ADDERALL) 10 mg tablet Take 1 tablet by mouth once daily for 30 days. dextroamphetamine-amphetamine (ADDERALL) 5 mg tablet Take 1 tablet by mouth once daily as needed for up to 30 days. In the afternoon, in addition to am 10mg dose. LORazepam (ATIVAN) 0.5 mg Take 1 tablet by mouth once daily as needed for up to 30 days. tiZANidine (ZANAFLEX) 4 mg tablet Take 1 tablet by mouth every 8 hours as needed (muscle spasms). levothyroxine (SYNTHROID) 88 mcg tablet Take 1 tablet by mouth once daily. and skip 1 day weekly. Cholecalciferol, Vitamin D3, 125 mcg (5,000 unit) cap Take 1 capsule by mouth once daily. magnesium oxide (MAG-OX) 400 mg (241.3 mg magnesium) tablet Take 1 tablet by mouth once daily. vitamin b complex (B COMPLETE) tab Take 1 tablet by mouth once daily. levalbuterol tartrate HFA 45 mcg/actuation inhaler Inhale 1-2 Puffs as instructed every 6 hours as needed for Wheezing/Shortness of Breath. ondansetron orally disintegrating (ZOFRAN ODT) 4 mg disintegrating tablet Take 1 tablet by mouth every 6 hours as needed for Nausea/Vomiting. triamcinolone acetonide (NASACORT) 55 mcg nasal inhaler Use 2 Sprays in the nose once daily. In the morning Current Facility-Administered Medications on File Prior to Visit Medication cosyntropin 0.25 mg injection (CORTROSYN) Social History Social History Tobacco Use Smoking status: Never Smokeless tobacco: Never Vaping Use Vaping Use: Never used Substance Use Topics Alcohol use: Yes Comment: twice a year- socially Drug use: No EXAM: LMP 05/30/2019 (Exact Date) Limited exam as visit was completed over the virtual platform. Virtual visit completed using video, limited exam completed. Patient sounds or appears ill: No General Appearance: Well appearing, alert, in no acute distress, well-hydrated, well nourished. Skin: Skin color normal Head: Normocephalic. No facial swelling or redness. EENT: Eyes nonreddened. No discharge. External ears nonreddened and no swelling. Neck: No mass or lesions. No swelling. FROM Patient is unable to speak in complete sentences: No Patient has labored breathing: No. Patient is audibly coughing: No Psych: Attitude - cooperative, easily engaged in conversation Affect - Euthymic, normal mood Mental status: Alert. Speech is clear and fluent with good repetition, comprehension Appearance - Normal hygiene and grooming appropriate Coordination: No abnormal or extraneous movements. Gait/Stance: Posture is normal. Health Maintenance List HEPATITIS B(1 of 3 - 3-dose series) Never done DTAP,TDAP,TD(1 - Tdap) Never done DEPRESSION ASSESSMENT Never done INFLUENZA(1) due on 12/26/2021 COVID-19 VACCINE(1) due on 03/11/2022 HEPATITIS C SCREENING due on 12/05/2022 HIV SCREENING due on 12/05/2022 MAMMOGRAM due on 06/11/2022 ANNUAL PCP TEAM CHRONIC DISEASE VISIT due on 01/16/2023 PAP TESTING due on 06/25/2025 HPV TESTING due on 06/25/2025 Data reviewed Last 5 Encounter BP Readings: Date: BP: 01/16/2022 122/84 10/21/2021 116/80 10/03/2021 122/86 08/12/2021 124/82 03/11/2021 120/80 BMI Readings from Last 5 Encounters: 01/16/22 : 37.77 kg/m 11/04/21 : 38.16 kg/m 10/21/21 : 38.67 kg/m 10/03/21 : 38.94 kg/m 08/12/21 : 39.65 kg/m Last 5 Encounter Wt Readings: Date: Wt: 01/16/2022 87.7 kg (193 lb 6.4 oz) 11/04/2021 88.6 kg (195 lb 6.4 oz) 10/21/2021 89.8 kg (198 lb) 10/03/2021 90.4 kg (199 lb 6.4 oz) 08/12/2021 92.1 kg (203 lb) Medication and allergy list reviewed, reconciled and updated 01/21/2022 ASSESSMENT/PLAN: 1. COVID-19 - ICD9: 079.89, ICD10: U07.1 Symptoms started 9-10 days ago. Mild in nature. Out of window for oral antivirals. Doing well. Instructed to notify her surgeon's office re: their specific policies re: surgery after covid. Discussed treatment plan and patient voices understanding. Patient's questions answered appropriately. Medications and potential side effects were discussed and patient voices understanding. Return to the office as scheduled or as needed for worsening/no improvement. Shobha Perez APRN.CNP documented in this encounter [facility] 01-16-2022 Instructions Roxy Flores APRN.CNP - 01/16/2022 12:07 PM EDT Hold your Biotin for 3 days prior to getting your labs drawn. Use your lorazepam as needed for your situational anxiety. Get some Vitamin D3 5000 unit gummies Let me know after you see the surgeon how things went and what the plan is documented in this encounter [facility] 01-16-2022 History of Present illness Narrative Chief Complaint Patient presents with: Thyroid Problem Hair Loss HPI Sangeetha Redd is a 42 year old female who presents here today for Above Complaints. Today: Hair loss-noticed about a month ago. Noticing that she is shedding a lot. Vivascale vitamin-got so nauseated she couldn't [facility] [place]. Has a lot going on-may be having surgery again soon to remove her ovaries and for endometriosis. A lot of stress. Past medical history, appointments, medications, allergies reviewed. Previous Medical History PAST MEDICAL HISTORY Diagnosis Date Anxiety Cerebral aneurysm Complicated migraine Endometriosis 75% improvement in abdominal pain post lap surgery Hypothyroidism IBS (irritable bowel syndrome) Insulin resistance Lactose intolerance in adult Left thyroid nodule 12/2020 repeat thyroid US 12/2021 Low HDL (under 40) Low serum progesterone worsening symptoms with progesterone rx Lumbar disc disease 05/13/2010 Migraines CADENCE (obstructive sleep apnea) Last polysomnogram in 2012, last use in 2012 Personal history of kidney stones Polycystic ovary syndrome 06/19/2010 Protein S deficiency (HCC) 2007 clotting disorder PUD (peptic ulcer disease) 2009 treated medically, repeat EGD neg in 2014 Renal calculi 2009 associated to low citric acid, h/o hypercalciuria Rosacea 06/19/2010 Shingles 2010 right flank area into right upper abdomen Vitamin D deficiency Previous Surgical History PAST SURGICAL HISTORY Procedure Laterality Date APPENDECTOMY COLONOSCOPY FLX DX W/COLLJ SPEC WHEN PFRMD 08/16/2014 Colonoscopy-repeat at 50 ESOPHAGOGASTRODUODENOSCOPY TRANSORAL DIAGNOSTIC 08/16/2014 EGD LAPAROSCOPY SURG CHOLECYSTECTOMY 04/27/2003 Cholecystectomy, lap OVARIAN CYSTECTOMY Bilateral 07/30/2021 PAST SURGICAL HISTORY OF Laparoscopy for endometriosis PAST SURGICAL HISTORY OF d&c PAST SURGICAL HISTORY OF wisdom teeth PYELOTOMY W/REMOVAL CALCULUS 04/27/2008 multiple Family History FAMILY HISTORY Problem Relation Age of Onset Breast Cancer Mother 39 Arthritis Mother Fibromyalgia other (irregular heartbeat) Mother Hypertension Maternal Grandmother Alzheimer's Disease Maternal Grandmother Arthritis Maternal Grandmother other (dementia) Maternal Grandmother Diabetes Brother type 1 Stroke Maternal Grandfather other (Eosinophilic esophagitis) Son other (Abdominal migraines) Son ADD/ADHD Daughter Arthritis Father Thyroid Father Hypertension Father Thyroid Cancer Sister Diabetes Brother Type 1 Patient Allergies ALLERGIES Allergen Reactions Aleve [Naproxen Sod* Vomiting Ibuprofen without problems Vomiting with Aleve with one time use Metformin GI Upset Penicillins Swelling Current Medications Current Outpatient Medications on File Prior to Visit Medication Sig dextroamphetamine-amphetamine (ADDERALL) 5 mg tablet Take 1 tablet by mouth once daily as needed for up to 30 days. In the afternoon, in addition to am 10mg dose. dextroamphetamine-amphetamine (ADDERALL) 10 mg tablet Take 1 tablet by mouth once daily for 30 days. tiZANidine (ZANAFLEX) 4 mg tablet Take 1 tablet by mouth every 8 hours as needed (muscle spasms). levothyroxine (SYNTHROID) 88 mcg tablet Take 1 tablet by mouth once daily. and skip 1 day weekly. Cholecalciferol, Vitamin D3, 125 mcg (5,000 unit) cap Take 1 capsule by mouth once daily. magnesium oxide (MAG-OX) 400 mg (241.3 mg magnesium) tablet Take 1 tablet by mouth once daily. vitamin b complex (B COMPLETE) tab Take 1 tablet by mouth once daily. levalbuterol tartrate HFA 45 mcg/actuation inhaler Inhale 1-2 Puffs as instructed every 6 hours as needed for Wheezing/Shortness of Breath. ondansetron orally disintegrating (ZOFRAN ODT) 4 mg disintegrating tablet Take 1 tablet by mouth every 6 hours as needed for Nausea/Vomiting. triamcinolone acetonide (NASACORT) 55 mcg nasal inhaler Use 2 Sprays in the nose once daily. In the morning Current Facility-Administered Medications on File Prior to Visit Medication cosyntropin 0.25 mg injection (CORTROSYN) Social History Social History Tobacco Use Smoking status: Never Smokeless tobacco: Never Vaping Use Vaping Use: Never used Substance Use Topics Alcohol use: Yes Comment: twice a year- socially Drug use: No Review of Symptoms REVIEW OF SYSTEMS See HPI, otherwise negative EXAM: BP 122/84 (BP Site: Left Arm, BP Position: Sitting, BP Cuff Size: Regular Adult) Pulse 86 Resp 16 Wt 87.7 kg (193 lb 6.4 oz) LMP 05/30/2019 (Exact Date) SpO2 100% BMI 37.77 kg/m General Appearance: Well appearing, alert, in no acute distress, well-hydrated, well nourished.. Skin: Skin color, texture, turgor normal, no suspicious rashes or lesions. Hair thinning, visibly breaking and regrowing at hairline.. Psychiatric: pleasant, cooperative, tearful Health Maintenance List HEPATITIS B(1 of 3 - 3-dose series) Never done DTAP,TDAP,TD(1 - Tdap) Never done DEPRESSION SCREENING due on 01/07/2022 INFLUENZA(1) due on 12/26/2021 COVID-19 VACCINE(1) due on 03/11/2022 HEPATITIS C SCREENING due on 12/05/2022 HIV SCREENING due on 12/05/2022 MAMMOGRAM due on 06/11/2022 ANNUAL PCP TEAM CHRONIC DISEASE VISIT due on 12/05/2022 PAP TESTING due on 06/25/2025 HPV TESTING due on 06/25/2025 Data reviewed Previous records, office notes, OARRS report ASSESSMENT/PLAN: 1. Hair thinning - ICD9: 704.00, ICD10: L65.9 (primary diagnosis) Suspect combination of causes, most likely stress as main cause. - COVID WITH FLUA+B, ROUTINE - TSH BLD - T3 BLD - T4 FREE/FREE THYROX - CBC - COMP METABOLIC PANEL - VITAMIN D 25 HYDROXY - VITAMIN B12 BLOOD - IRON + TIBC - FERRITIN BLD 2. Hair loss - ICD9: 704.00, ICD10: L65.9 Suspect combination of causes, most likely stress as main cause. - COVID WITH FLUA+B, ROUTINE - TSH BLD - T3 BLD - T4 FREE/FREE THYROX - CBC - COMP METABOLIC PANEL - VITAMIN D 25 HYDROXY - VITAMIN B12 BLOOD - IRON + TIBC - FERRITIN BLD 3. Hypothyroidism, acquired - ICD9: 244.9, ICD10: E03.9 Suspect combination of causes, most likely stress as main cause. - TSH BLD - T3 BLD - T4 FREE/FREE THYROX 4. Fatigue, unspecified type - ICD9: 780.79, ICD10: R53.83 Suspect combination of causes, most likely stress as main cause. - COVID WITH FLUA+B, ROUTINE - TSH BLD - T3 BLD - T4 FREE/FREE THYROX - CBC - COMP METABOLIC PANEL - VITAMIN D 25 HYDROXY - VITAMIN B12 BLOOD - IRON + TIBC - FERRITIN BLD 5. Stress - ICD9: V62.89, ICD10: F43.9 Suspect combination of causes, most likely stress as main cause. - COVID WITH FLUA+B, ROUTINE - TSH BLD - T3 BLD - T4 FREE/FREE THYROX - CBC - COMP METABOLIC PANEL - VITAMIN D 25 HYDROXY - VITAMIN B12 BLOOD - IRON + TIBC - FERRITIN BLD 6. Body aches - ICD9: 780.96, ICD10: R52 Suspect combination of causes, most likely stress as main cause. - COVID WITH FLUA+B, ROUTINE - TSH BLD - T3 BLD - T4 FREE/FREE THYROX - CBC - COMP METABOLIC PANEL - VITAMIN D 25 HYDROXY - VITAMIN B12 BLOOD - IRON + TIBC - FERRITIN BLD 7. Anxiety disorder, unspecified type - ICD9: 300.00, ICD10: F41.9 Suspect combination of causes, most likely stress as main cause. - LORAZEPAM 0.5 MG TABLET 8. Impaired concentration - ICD9: 799.51, ICD10: R41.840 Suspect combination of causes, most likely stress as main cause. - DEXTROAMPHETAMINE-AMPHETAMINE 10 MG TABLET - DEXTROAMPHETAMINE-AMPHETAMINE 5 MG TABLET - LORAZEPAM 0.5 MG TABLET Roxy Flores APRN.JOI documented in this encounter [facility] 12-05-2021 History of Present illness Narrative VIRTUAL VISIT PROGRESS NOTE This is a virtual visit using [employer] video visit. It required patient-provider interaction for the medical decision making as documented below. Sangeetha Redd is a 41 year old female seen for weight check/medication check. Initial weight: 199 lbs Month #1: 195.4 lbs (down 3.6 lbs) Month #2 (today): 189.9 lbs (down 5.5 over the month, 9.1 overall) Today: Tolerating Adipex well. Dry mouth as only side effect. Feels good. Noticing clothes fitting looser. Diet-no sugar, low carb. Uses Steevia. No breads, no pastas. Eating proteins and vegetables. Some fruits-just berries for the most part. Almost keto. Exercise-Goal to get to the gym 3 days per week. Is typically more like 2 days per week. Makes sure to be up and moving rather than sitting around. Having horrible joint pain in her knuckles for the past few months. Seems to be worsening. Is a stiff aching pain. In the mornings takes a while to get moving. Can be pretty severe in the mornings. 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 Both parents do have RA. HISTORY REVIEWED (electronic chart updated): PAST MEDICAL HISTORY Diagnosis Date Anxiety Cerebral aneurysm Complicated migraine Endometriosis 75% improvement in abdominal pain post lap surgery Hypothyroidism IBS (irritable bowel syndrome) Insulin resistance Lactose intolerance in adult Left thyroid nodule 12/2020 repeat thyroid US 12/2021 Low HDL (under 40) Low serum progesterone worsening symptoms with progesterone rx Lumbar disc disease 05/13/2010 Migraines CADENCE (obstructive sleep apnea) Last polysomnogram in 2012, last use in 2012 Personal history of kidney stones Polycystic ovary syndrome 06/19/2010 Protein S deficiency (HCC) 2008 clotting disorder PUD (peptic ulcer disease) 2010 treated medically, repeat EGD neg in 2014 Renal calculi 2009 associated to low citric acid, h/o hypercalciuria Rosacea 06/19/2010 Shingles 2010 right flank area into right upper abdomen Vitamin D deficiency PAST SURGICAL HISTORY Procedure Laterality Date APPENDECTOMY COLONOSCOPY FLX DX W/COLLJ SPEC WHEN PFRMD 08/16/2014 Colonoscopy-repeat at 50 ESOPHAGOGASTRODUODENOSCOPY TRANSORAL DIAGNOSTIC 08/16/2014 EGD LAPAROSCOPY SURG CHOLECYSTECTOMY 04/27/2003 Cholecystectomy, lap OVARIAN CYSTECTOMY Bilateral 07/30/2021 PAST SURGICAL HISTORY OF Laparoscopy for endometriosis PAST SURGICAL HISTORY OF d&c PAST SURGICAL HISTORY OF wisdom teeth PYELOTOMY W/REMOVAL CALCULUS 04/27/2008 multiple FAMILY HISTORY Problem Relation Age of Onset Breast Cancer Mother 39 Arthritis Mother Fibromyalgia other (irregular heartbeat) Mother Hypertension Maternal Grandmother Alzheimer's Disease Maternal Grandmother Arthritis Maternal Grandmother other (dementia) Maternal Grandmother Diabetes Brother type 1 Stroke Maternal Grandfather other (Eosinophilic esophagitis) Son other (Abdominal migraines) Son ADD/ADHD Daughter Arthritis Father Thyroid Father Hypertension Father Thyroid Cancer Sister Diabetes Brother Type 1 Social History Tobacco Use Smoking status: Never Smokeless tobacco: Never Vaping Use Vaping Use: Never used Substance Use Topics Alcohol use: Yes Comment: twice a year- socially Drug use: No Current Outpatient Medications Medication Sig dextroamphetamine-amphetamine (ADDERALL) 5 mg tablet Take 1 tablet by mouth once daily as needed for up to 30 days. In the afternoon, in addition to am 10mg dose. dextroamphetamine-amphetamine (ADDERALL) 10 mg tablet Take 1 tablet by mouth once daily for 30 days. tiZANidine (ZANAFLEX) 4 mg tablet Take 1 tablet by mouth every 8 hours as needed (muscle spasms). levothyroxine (SYNTHROID) 88 mcg tablet Take 1 tablet by mouth once daily. and skip 1 day weekly. Cholecalciferol, Vitamin D3, 125 mcg (5,000 unit) cap Take 1 capsule by mouth once daily. magnesium oxide (MAG-OX) 400 mg (241.3 mg magnesium) tablet Take 1 tablet by mouth once daily. vitamin b complex (B COMPLETE) tab Take 1 tablet by mouth once daily. levalbuterol tartrate HFA 45 mcg/actuation inhaler Inhale 1-2 Puffs as instructed every 6 hours as needed for Wheezing/Shortness of Breath. ondansetron orally disintegrating (ZOFRAN ODT) 4 mg disintegrating tablet Take 1 tablet by mouth every 6 hours as needed for Nausea/Vomiting. triamcinolone acetonide (NASACORT) 55 mcg nasal inhaler Use 2 Sprays in the nose once daily. In the morning Current Facility-Administered Medications Medication Dose Route Frequency cosyntropin 0.25 mg injection (CORTROSYN) 0.25 mg INTRAMUSCULAR As Directed ALLERGIES Allergen Reactions Aleve [Naproxen Sod* Vomiting Ibuprofen without problems Vomiting with Aleve with one time use Metformin GI Upset Penicillins Swelling REVIEW OF SYSTEMS: All other ROS: negative As noted in HPI PHYSICAL EXAMINATION: VIDEO EXAM: (if completed, performed via video enabled technology) No exam performed ASSESSMENT: (R41.840) Impaired concentration (primary encounter diagnosis) (E66.01) Obesity, Class III, BMI 40-49.9 (morbid obesity) (HCC) (E78.5) Dyslipidemia (R73.01) IFG (impaired fasting glucose) (M79.641, M79.642) Pain in both hands PLAN: Adipex refill Refill on Adderall Concern for RA, will work up for such. Both parents with RA hx. Roxy Flores APRN.CNP PDMP website checked and validated. All prescriptions have been APPROPRIATELY filled. No suspicious activity was identified. 12/05/2021 by Roxy Flores CNP. documented in this encounter [facility] 11-04-2021 History of Present illness Narrative This Team Access Model visit is a virtual encounter. It required patient-provider interaction for the medical decision making as documented below. Patient agrees to the visit: Yes Patient Location: [place] CC: Patient presents with: Weight Problem HPI Sangeetha Redd is a 41 year old female who is contacted today for a virtual visit. This is an established patient of Dr. Jose Luis Toledo DO. Sangeetha is a new patient to me today. Weight management: Started on Adipex on 10/03/21. Has been on adipex regimen in the past with good results. Starting month 2/3 this week. Tolerating well. No side effects besides mild dry mouth. Denies: abdominal pain, nausea, vomiting, diarrhea, fevers, constipation, headache, change in urination, lightheadedness, weakness, numbness or tingling to arms or legs, edema, palpitations, sleep disturbances, impairment of concentration/attention, difficulty with memory, speech or language problems (particularly word-finding difficulties). Initial weight: 199 lbs Weight after month 1:195.4 lbs (down 4 lbs) Current BMI: 38.16 Diet: Cut out sugar, started low carb. Basically on a Keto diet but not as strict. Exercise: Trying to go to gym 3x/week --- always gets at least 2x/week at [employer] -- weight lifting and cardiac equipment. ADHD: On adderall 10 mg daily in the morning. Started afternoon dosage prn 5 mg at last visit. Taking afternoon dosage most days but not everyday like the 10mg. Feels this afternoon dosage is working well. No need to change dosage or regimen. But does need refills. No side effects from medication, tolerating well. REVIEW OF SYSTEMS See HPI PAST MEDICAL HISTORY Diagnosis Date Anxiety Cerebral aneurysm Complicated migraine Endometriosis 75% improvement in abdominal pain post lap surgery Hypothyroidism IBS (irritable bowel syndrome) Insulin resistance Lactose intolerance in adult Left thyroid nodule 12/2020 repeat thyroid US 12/2021 Low HDL (under 40) Low serum progesterone worsening symptoms with progesterone rx Lumbar disc disease 05/13/2010 Migraines CADENCE (obstructive sleep apnea) Last polysomnogram in 2012, last use in 2012 Personal history of kidney stones Polycystic ovary syndrome 06/19/2010 Protein S deficiency (HCC) 2007 clotting disorder PUD (peptic ulcer disease) 2009 treated medically, repeat EGD neg in 2014 Renal calculi 2009 associated to low citric acid, h/o hypercalciuria Rosacea 06/19/2010 Shingles 2010 right flank area into right upper abdomen Vitamin D deficiency PAST SURGICAL HISTORY Procedure Laterality Date APPENDECTOMY COLONOSCOPY FLX DX W/COLLJ SPEC WHEN PFRMD 08/16/2014 Colonoscopy-repeat at 50 ESOPHAGOGASTRODUODENOSCOPY TRANSORAL DIAGNOSTIC 08/16/2014 EGD LAPAROSCOPY SURG CHOLECYSTECTOMY 04/27/2003 Cholecystectomy, lap OVARIAN CYSTECTOMY Bilateral 07/30/2021 PAST SURGICAL HISTORY OF Laparoscopy for endometriosis PAST SURGICAL HISTORY OF d&c PAST SURGICAL HISTORY OF wisdom teeth PYELOTOMY W/REMOVAL CALCULUS 04/27/2008 multiple ALLERGIES Aleve [Naproxen Sodium], Metformin, and Penicillins MEDICATIONS dextroamphetamine-amphetamine (ADDERALL) 10 mg tablet Take 1 tablet by mouth once daily for 30 days. dextroamphetamine-amphetamine (ADDERALL) 5 mg tablet Take 1 tablet by mouth once daily as needed for up to 30 days. In the afternoon, in addition to am 10mg dose. tiZANidine (ZANAFLEX) 4 mg tablet Take 1 tablet by mouth every 8 hours as needed (muscle spasms). levothyroxine (SYNTHROID) 88 mcg tablet Take 1 tablet by mouth once daily. and skip 1 day weekly. Cholecalciferol, Vitamin D3, 125 mcg (5,000 unit) cap Take 1 capsule by mouth once daily. magnesium oxide (MAG-OX) 400 mg (241.3 mg magnesium) tablet Take 1 tablet by mouth once daily. vitamin b complex (B COMPLETE) tab Take 1 tablet by mouth once daily. levalbuterol tartrate HFA 45 mcg/actuation inhaler Inhale 1-2 Puffs as instructed every 6 hours as needed for Wheezing/Shortness of Breath. ondansetron orally disintegrating (ZOFRAN ODT) 4 mg disintegrating tablet Take 1 tablet by mouth every 6 hours as needed for Nausea/Vomiting. triamcinolone acetonide (NASACORT) 55 mcg nasal inhaler Use 2 Sprays in the nose once daily. In the morning FAMILY HISTORY Problem Relation Age of Onset Breast Cancer Mother 39 Arthritis Mother Fibromyalgia other (irregular heartbeat) Mother Hypertension Maternal Grandmother Alzheimer's Disease Maternal Grandmother Arthritis Maternal Grandmother other (dementia) Maternal Grandmother Diabetes Brother type 1 Stroke Maternal Grandfather other (Eosinophilic esophagitis) Son other (Abdominal migraines) Son ADD/ADHD Daughter Arthritis Father Thyroid Father Hypertension Father Thyroid Cancer Sister Diabetes Brother Type 1 Social History Tobacco Use Smoking status: Never Smoker Smokeless tobacco: Never Used Vaping Use Vaping Use: Never used Substance Use Topics Alcohol use: Yes Comment: twice a year- socially Drug use: No EXAM: Deferred physical exam as visit was completed over the phone Patient is speaking in complete sentences without obvious respiratory distress or audible wheezing. Virtual visit completed using video, limited exam completed. GENERAL: alert and appropriate, in no distress, well-hydrated, well nourished and happy, smiling, interactive SKIN: no rash noted HEAD: normocephalic, no abnormality or lesion noted DATA REVIEWED: Most recent labs and imaging results. HEPATITIS C SCREENING Never done HIV SCREENING Never done DTAP,TDAP,TD(1 - Tdap) Never done COVID-19 VACCINE(1) due on 03/11/2022 INFLUENZA(1) due on 12/26/2021 DEPRESSION SCREENING due on 01/07/2022 MAMMOGRAM due on 06/11/2022 ANNUAL PCP TEAM CHRONIC DISEASE VISIT due on 10/21/2022 PAP TESTING due on 06/25/2025 HPV TESTING due on 06/25/2025 ASSESSMENT/PLAN: 1. Obesity, Class III, BMI 40-49.9 (morbid obesity) (HCC) - ICD9: 278.01, ICD10: E66.01 (primary diagnosis) Weight decreasing - Behavioral intervention, - Pharmacological intervention, - Eat well program and - Continue current medications - PHENTERMINE 37.5 MG TABLET - Continue diet consisting of KETO - Reduce sugary drinks of artificial juices and sodas and replace with water and low calorie Crystal Light. - Healthy Snack alternatives have been discussed and will attempt more fruits and vegetables. - encouraged 3 meals a day - Continue exercise or meaningful activity for 20 minutes at lest 3 times a day PDMP website checked and validated. All prescriptions have been APPROPRIATELY filled. No suspicious activity was identified. 11/04/2021 by Brandi Rasmussen APRN.JOI - reviewed SE, medication expectations, required weight loss of 5%, required monthly monitoring and medication duration of use (3 months on 6 months off) 2. Dyslipidemia - ICD9: 272.4, ICD10: E78.5 - good control - Continue current medication. - Continue current therapy. - PHENTERMINE 37.5 MG TABLET 3. IFG (impaired fasting glucose) - ICD9: 790.21, ICD10: R73.01 - PHENTERMINE 37.5 MG TABLET 4. Impaired concentration - ICD9: , ICD10: R41.840 Stable. Well controlled. Continue current regimen. - DEXTROAMPHETAMINE-AMPHETAMINE 5 MG TABLET - DEXTROAMPHETAMINE-AMPHETAMINE 10 MG TABLET Follow-up in 1 month, sooner if needed. Appointment scheduled. Prescription instructions reviewed with patient as applicable. Potential red flag symptoms discussed with the patient. Reviewed appropriate action plan to take if red flag symptoms occur. Patient agreeable to treatment plan. During this patient visit I have spent approximately 20 minutes in counseling regarding weight loss, exercise, treatment options and medications. Brandi Rasmussen APRN.JOI documented in this encounter [facility] 10-03-2021 Instructions Roxy Flores APRN.CNP - 10/03/2021 11:51 AM EDT Fish oil-[place] 3 Red Rice Yeast Both help with cholesterol documented in this encounter [facility] 10-03-2021 History of Present illness Narrative Chief Complaint Patient presents with: Medication Follow-up: start adipex HPI Sangeetha Redd is a 41 year old female who presents here today for Above Complaints. Today: Adderall is working well at current dose. Feels like it wears off around 1-2 in the afternoon. Has tolerated Adipex well in the past. Diet-Tries to stick with 20g of carbs today. Limiting carbs. Exercise-works out twice weekly at [employer]-tries to do more than this. Her cholesterol was a bit high recently, wondering what she can do to improve this. Past medical history, appointments, medications, allergies reviewed. Previous Medical History PAST MEDICAL HISTORY Diagnosis Date Anxiety Cerebral aneurysm Complicated migraine Endometriosis 75% improvement in abdominal pain post lap surgery Hypothyroidism IBS (irritable bowel syndrome) Insulin resistance Lactose intolerance in adult Left thyroid nodule 12/2020 repeat thyroid US 12/2021 Low HDL (under 40) Low serum progesterone worsening symptoms with progesterone rx Lumbar disc disease 05/13/2010 Migraines CADENCE (obstructive sleep apnea) Last polysomnogram in 2012, last use in 2012 Personal history of kidney stones Polycystic ovary syndrome 06/19/2010 Protein S deficiency (HCC) 2007 clotting disorder PUD (peptic ulcer disease) 2009 treated medically, repeat EGD neg in 2014 Renal calculi 2009 associated to low citric acid, h/o hypercalciuria Rosacea 06/19/2010 Shingles 2010 right flank area into right upper abdomen Vitamin D deficiency Previous Surgical History PAST SURGICAL HISTORY Procedure Laterality Date APPENDECTOMY COLONOSCOPY FLX DX W/COLLJ SPEC WHEN PFRMD 08/16/2014 Colonoscopy-repeat at 50 ESOPHAGOGASTRODUODENOSCOPY TRANSORAL DIAGNOSTIC 08/16/2014 EGD LAPAROSCOPY SURG CHOLECYSTECTOMY 04/27/2003 Cholecystectomy, lap OVARIAN CYSTECTOMY Bilateral 07/30/2021 PAST SURGICAL HISTORY OF Laparoscopy for endometriosis PAST SURGICAL HISTORY OF d&c PAST SURGICAL HISTORY OF wisdom teeth PYELOTOMY W/REMOVAL CALCULUS 04/27/2008 multiple Family History FAMILY HISTORY Problem Relation Age of Onset Breast Cancer Mother 39 Arthritis Mother Fibromyalgia other (irregular heartbeat) Mother Hypertension Maternal Grandmother Alzheimer's Disease Maternal Grandmother Arthritis Maternal Grandmother other (dementia) Maternal Grandmother Diabetes Brother type 1 Stroke Maternal Grandfather other (Eosinophilic esophagitis) Son other (Abdominal migraines) Son ADD/ADHD Daughter Arthritis Father Thyroid Father Hypertension Father Thyroid Cancer Sister Diabetes Brother Type 1 Patient Allergies ALLERGIES Allergen Reactions Aleve [Naproxen Sod* Vomiting Ibuprofen without problems Vomiting with Aleve with one time use Metformin GI Upset Penicillins Swelling Current Medications Current Outpatient Medications on File Prior to Visit Medication Sig dextroamphetamine-amphetamine (ADDERALL) 10 mg tablet Take 1 tablet by mouth once daily for 30 days. tiZANidine (ZANAFLEX) 4 mg tablet Take 1 tablet by mouth every 8 hours as needed (muscle spasms). levothyroxine (SYNTHROID) 88 mcg tablet Take 1 tablet by mouth once daily. and skip 1 day weekly. Cholecalciferol, Vitamin D3, 125 mcg (5,000 unit) cap Take 1 capsule by mouth once daily. magnesium oxide (MAG-OX) 400 mg (241.3 mg magnesium) tablet Take 1 tablet by mouth once daily. vitamin b complex (B COMPLETE) tab Take 1 tablet by mouth once daily. levalbuterol tartrate HFA 45 mcg/actuation inhaler Inhale 1-2 Puffs as instructed every 6 hours as needed for Wheezing/Shortness of Breath. ondansetron orally disintegrating (ZOFRAN ODT) 4 mg disintegrating tablet Take 1 tablet by mouth every 6 hours as needed for Nausea/Vomiting. triamcinolone acetonide (NASACORT) 55 mcg nasal inhaler Use 2 Sprays in the nose once daily. In the morning Current Facility-Administered Medications on File Prior to Visit Medication cosyntropin 0.25 mg injection (CORTROSYN) Social History Social History Tobacco Use Smoking status: Never Smoker Smokeless tobacco: Never Used Vaping Use Vaping Use: Never used Substance Use Topics Alcohol use: Yes Comment: twice a year- socially Drug use: No Review of Symptoms REVIEW OF SYSTEMS See HPI, otherwise negative EXAM: BP 122/86 (BP Site: Left Arm, BP Position: Sitting, BP Cuff Size: Regular Adult) Pulse 74 Resp 16 Wt 90.4 kg (199 lb 6.4 oz) LMP 05/30/2019 (Exact Date) SpO2 100% BMI 38.94 kg/m General Appearance: Well appearing, alert, in no acute distress, well-hydrated, well nourished.. Lungs: Lungs clear to auscultation. No wheezing, rhonchi, rales.. Heart: RRR without murmur, gallop, or rubs. No ectopy. Health Maintenance List HEPATITIS C SCREENING Never done HIV SCREENING Never done DTAP,TDAP,TD(1 - Tdap) Never done COVID-19 VACCINE(1) due on 03/11/2022 INFLUENZA(Season Ended) due on 12/26/2021 DEPRESSION SCREENING due on 01/07/2022 MAMMOGRAM due on 06/11/2022 ANNUAL PCP TEAM CHRONIC DISEASE VISIT due on 08/12/2022 PAP TESTING due on 06/25/2025 HPV TESTING due on 06/25/2025 Data reviewed Previous records, office notes, OARRS report ASSESSMENT/PLAN: 1. Obesity, Class III, BMI 40-49.9 (morbid obesity) (HCC) - ICD9: 278.01, ICD10: E66.01 (primary diagnosis) Has tolerated Adipex well in the past. This does make 2 stimulants, when paired with Adderall. She is aware of common side effects and red flag symptoms with taking these two medications together. Will start with 1/2 tablet daily and increase as tolerated. - PHENTERMINE 37.5 MG TABLET 2. Impaired concentration - ICD9: , ICD10: R41.840 Has tolerated Adipex well in the past. This does make 2 stimulants, when paired with Adderall. She is aware of common side effects and red flag symptoms with taking these two medications together. Will start with 1/2 tablet daily and increase as tolerated. - PHENTERMINE 37.5 MG TABLET - DEXTROAMPHETAMINE-AMPHETAMINE 10 MG TABLET - DEXTROAMPHETAMINE-AMPHETAMINE 5 MG TABLET 3. Dyslipidemia - ICD9: 272.4, ICD10: E78.5 Discussed diet, weight loss, exercise. [place] 3s and red rice yeast. Roxy Flores APRN.CNP PDMP website checked and validated. All prescriptions have been APPROPRIATELY filled. No suspicious activity was identified. 10/03/2021 by Roxy Flores CNP. documented in this encounter [facility] 08-12-2021 Instructions Roxy Flores APRN.CNP - 08/12/2021 9:43 AM EDT Let me know in 2 weeks if your want to increase your Adderall-just send me a MyChart message. Have labs drawn on the way out today. I should have results in 1-2 days. documented in this encounter [facility] 08-12-2021 History of Present illness Narrative Patient presents with: F/U 6 months: thyroid lab work, cyst removed 07/30/[address] [facility] HPI: Sangeetha Redd is a 41 year old female who presents to the office today for review of health conditions. She is an established patient of Dr. Toledo and following up with me today. Concerns today: Was told that she is due for a follow up on her thyroid. Feels good except that she has had some hair loss-wondering if this could be r/t her recent weight loss. Has Raynaud's. Is worse that it typically has been in the past. Typically was in the winter, now extending into the spring. When she is on Adipex, feels much more organized, less forgetful, more productive. Wondering if there is something that could help her with this. Last 3 Encounter BP Readings: Date: BP: 08/12/2021 124/82 03/11/2021 120/80 02/07/2021 114/78 PAST MEDICAL HISTORY Diagnosis Date Anxiety Cerebral aneurysm Complicated migraine Endometriosis 75% improvement in abdominal pain post lap surgery Hypothyroidism IBS (irritable bowel syndrome) Insulin resistance Lactose intolerance in adult Left thyroid nodule 12/2020 repeat thyroid US 12/2021 Low HDL (under 40) Low serum progesterone worsening symptoms with progesterone rx Lumbar disc disease 05/13/2010 Migraines CADENCE (obstructive sleep apnea) Last polysomnogram in 2012, last use in 2012 Personal history of kidney stones Polycystic ovary syndrome 06/19/2010 Protein S deficiency (HCC) 2008 clotting disorder PUD (peptic ulcer disease) 2010 treated medically, repeat EGD neg in 2014 Renal calculi 2009 associated to low citric acid, h/o hypercalciuria Rosacea 06/19/2010 Shingles 2010 right flank area into right upper abdomen Vitamin D deficiency PAST SURGICAL HISTORY Procedure Laterality Date APPENDECTOMY COLONOSCOPY FLX DX W/COLLJ SPEC WHEN PFRMD 08/16/2014 Colonoscopy-repeat at 50 ESOPHAGOGASTRODUODENOSCOPY TRANSORAL DIAGNOSTIC 08/16/2014 EGD LAPAROSCOPY SURG CHOLECYSTECTOMY 04/27/2003 Cholecystectomy, lap OVARIAN CYSTECTOMY Bilateral 07/30/2021 PAST SURGICAL HISTORY OF Laparoscopy for endometriosis PAST SURGICAL HISTORY OF d&c PAST SURGICAL HISTORY OF wisdom teeth PYELOTOMY W/REMOVAL CALCULUS 04/27/2008 multiple Social History Tobacco Use Smoking status: Never Smoker Smokeless tobacco: Never Used Vaping Use Vaping Use: Never used Substance Use Topics Alcohol use: Yes Comment: twice a year- socially Drug use: No FAMILY HISTORY Problem Relation Age of Onset Breast Cancer Mother 39 Arthritis Mother Fibromyalgia other (irregular heartbeat) Mother Hypertension Maternal Grandmother Alzheimer's Disease Maternal Grandmother Arthritis Maternal Grandmother other (dementia) Maternal Grandmother Diabetes Brother type 1 Stroke Maternal Grandfather other (Eosinophilic esophagitis) Son other (Abdominal migraines) Son ADD/ADHD Daughter Arthritis Father Thyroid Father Hypertension Father Thyroid Cancer Sister Diabetes Brother Type 1 Allergies: ALLERGIES Allergen Reactions Aleve [Naproxen Sod* Vomiting Ibuprofen without problems Vomiting with Aleve with one time use Metformin GI Upset Penicillins Swelling Current Meds: levothyroxine (SYNTHROID) 88 mcg tablet Take 1 tablet by mouth once daily. and skip 1 day weekly. Cholecalciferol, Vitamin D3, 125 mcg (5,000 unit) cap Take 1 capsule by mouth once daily. magnesium oxide (MAG-OX) 400 mg (241.3 mg magnesium) tablet Take 1 tablet by mouth once daily. tiZANidine (ZANAFLEX) 4 mg tablet Take 1 tablet by mouth every 8 hours as needed (muscle spasms). vitamin b complex (B COMPLETE) tab Take 1 tablet by mouth once daily. lorazepam (ATIVAN ORAL) Take by mouth. ondansetron orally disintegrating (ZOFRAN ODT) 4 mg disintegrating tablet Take 1 tablet by mouth every 6 hours as needed for Nausea/Vomiting. triamcinolone acetonide (NASACORT) 55 mcg nasal inhaler Use 2 Sprays in the nose once daily. In the morning omeprazole (PRILOSEC) 20 mg capsule Take 1 capsule by mouth daily before breakfast. 1/2 hr before meal. While on prednisone. levalbuterol tartrate HFA 45 mcg/actuation inhaler Inhale 1-2 Puffs as instructed every 6 hours as needed for Wheezing/Shortness of Breath. Review of Systems All other systems reviewed and are negative. See HPI. PE: 08/12/21 0905 BP: 124/82 BP Site: Left Arm BP Position: Sitting BP Cuff Size: Regular Adult Pulse: 80 Resp: 16 Weight: 92.1 kg (203 lb) Physical Exam Vitals and nursing note reviewed. Constitutional: Appearance: Normal appearance. She is obese. HENT: Head: Normocephalic and atraumatic. Cardiovascular: Rate and Rhythm: Normal rate and regular rhythm. Pulses: Normal pulses. Heart sounds: Normal heart sounds. Pulmonary: Effort: Pulmonary effort is normal. Breath sounds: Normal breath sounds. Skin: General: Skin is warm and dry. Capillary Refill: Capillary refill takes less than 2 seconds. Comments: Hands cool, mildly cyanotic Neurological: General: No focal deficit present. Mental Status: She is alert and oriented to person, place, and time. Psychiatric: Mood and Affect: Mood normal. Behavior: Behavior normal. ASSESSMENT/PLAN: 1. Anxiety disorder, unspecified type - ICD9: 300.00, ICD10: F41.9 (primary diagnosis) Typically will use 7-8x/month. Works well for situational anxiety. Refill given. - LORAZEPAM 0.5 MG TABLET 2. Impaired concentration - ICD9: , ICD10: R41.840 - LORAZEPAM 0.5 MG TABLET - VITAMIN B12 BLOOD - DEXTROAMPHETAMINE-AMPHETAMINE 5 MG TABLET 3. IFG (impaired fasting glucose) - ICD9: 790.21, ICD10: R73.01 - COMP METABOLIC PANEL - CBC - HGB A1C 4. Hypothyroidism, acquired - ICD9: 244.9, ICD10: E03.9 - TSH BLD - T3 BLD - T4 FREE/FREE THYROX 5. Dyslipidemia - ICD9: 272.4, ICD10: E78.5 - LIPID PANEL BASIC 6. Obesity, Class II, BMI 35-39.9 - ICD9: 278.00, ICD10: E66.9 Weight decreasing - Behavioral intervention - TSH BLD - T3 BLD - T4 FREE/FREE THYROX 7. Vitamin D deficiency - ICD9: 268.9, ICD10: E55.9 - VITAMIN D 25 HYDROXY 8. Hip pain - ICD9: 719.45, ICD10: M25.559 - TIZANIDINE 4 MG TABLET Roxy Flores APRN.SOCIOLOGY PROFESSOR To ER if develops chest pain, shortness of breath, or severe worsening of symptoms. Discussed risks, benefits, alternatives, and potential side effects of medications. Patient expressed understanding and agreed with the plan. Roxy Flores APRN.SOCIOLOGY PROFESSOR [address] [place] [address] documented in this encounter [facility] 06-07-2021 Miscellaneous Notes Faxed to [facility] Giana Perdue Ma New order placed. Roxy Flores APRN.JOI Preeti with [facility] calls and asks for mammogram order to add with [facility] (3-d imaging) to current order and then send back to [phone]. She said they only offer this so order has to specify it. Angelica Johnson RN documented in this encounter [facility] documented as of this encounter (statuses as of 08/12/2021) [facility] History of Past illness Narrative* Problem Noted Date Resolved Date Tick bite 10/21/2016 03/10/2017 Obesity (BMI 30-39.9) 09/15/2014 11/18/2017 Kidney stone 08/28/2014 03/10/2017 Right flank pain 08/28/2014 03/10/2017 Renal calculi 05/13/2010 03/10/2017 documented as of this encounter (statuses as of 10/03/2021) [facility] History of Past illness Narrative* Problem Noted Date Resolved Date Tick bite 10/21/2016 03/10/2017 Obesity (BMI 30-39.9) 09/15/2014 11/18/2017 Kidney stone 08/28/2014 03/10/2017 Right flank pain 08/28/2014 03/10/2017 Renal calculi 05/13/2010 03/10/2017 documented as of this encounter (statuses as of 11/04/2021) [address]27-2017 History of Past illness Narrative* Problem Noted Date Resolved Date Tick bite 10/21/2016 03/10/2017 Obesity (BMI 30-39.9) 09/15/2014 11/18/2017 Kidney stone 08/28/2014 03/10/2017 Right flank pain 08/28/2014 03/10/2017 Renal calculi 05/13/2010 03/10/2017 documented as of this encounter (statuses as of 12/05/2021) [facility] History of Past illness Narrative* Problem Noted Date Resolved Date Tick bite 10/21/2016 03/10/2017 Obesity (BMI 30-39.9) 09/15/2014 11/18/2017 Kidney stone 08/28/2014 03/10/2017 Right flank pain 08/28/2014 03/10/2017 Renal calculi 05/13/2010 03/10/2017 documented as of this encounter (statuses as of 12/12/2021) [facility] History of Past illness Narrative* Problem Noted Date Resolved Date Tick bite 10/21/2016 03/10/2017 Obesity (BMI 30-39.9) 09/15/2014 11/18/2017 Kidney stone 08/28/2014 03/10/2017 Right flank pain 08/28/2014 03/10/2017 Renal calculi 05/13/2010 03/10/2017 documented as of this encounter (statuses as of 01/16/2022) [facility] History of Past illness Narrative* Problem Noted Date Resolved Date Tick bite 10/21/2016 03/10/2017 Obesity (BMI 30-39.9) 09/15/2014 11/18/2017 Kidney stone 08/28/2014 03/10/2017 Right flank pain 08/28/2014 03/10/2017 Renal calculi 05/13/2010 03/10/2017 documented as of this encounter (statuses as of 01/21/2022) [address]27-2017 History of Past illness Narrative* Problem Noted Date Resolved Date Tick bite 10/21/2016 03/10/2017 Obesity (BMI 30-39.9) 09/15/2014 11/18/2017 Kidney stone 08/28/2014 03/10/2017 Right flank pain 08/28/2014 03/10/2017 Renal calculi 05/13/2010 03/10/2017 documented as of this encounter (statuses as of 02/06/2022) [address]27-2017 History of Past illness Narrative* Problem Noted Date Resolved Date Tick bite 10/21/2016 03/10/2017 Obesity (BMI 30-39.9) 09/15/2014 11/18/2017 Kidney stone 08/28/2014 03/10/2017 Right flank pain 08/28/2014 03/10/2017 Renal calculi 05/13/2010 03/10/2017 documented as of this encounter (statuses as of 02/21/2022) [address]27-2017 History of Past illness Narrative* Problem Noted Date Resolved Date Tick bite 10/21/2016 03/10/2017 Obesity (BMI 30-39.9) 09/15/2014 11/18/2017 Kidney stone 08/28/2014 03/10/2017 Right flank pain 08/28/2014 03/10/2017 Renal calculi 05/13/2010 03/10/2017 documented as of this encounter (statuses as of 02/27/2022) [address]27-2017 History of Past illness Narrative* Problem Noted Date Resolved Date Tick bite 10/21/2016 03/10/2017 Obesity (BMI 30-39.9) 09/15/2014 11/18/2017 Kidney stone 08/28/2014 03/10/2017 Right flank pain 08/28/2014 03/10/2017 Renal calculi 05/13/2010 03/10/2017 documented as of this encounter (statuses as of 05/12/2022) [address]27-2017 History of Past illness Narrative* Problem Noted Date Resolved Date Tick bite 10/21/2016 03/10/2017 Obesity (BMI 30-39.9) 09/15/2014 11/18/2017 Kidney stone 08/28/2014 03/10/2017 Right flank pain 08/28/2014 03/10/2017 Renal calculi 05/13/2010 03/10/2017 documented as of this encounter (statuses as of 05/19/2022) [address]27-2017 History of Past illness Narrative* Problem Noted Date Resolved Date Tick bite 10/21/2016 03/10/2017 Obesity (BMI 30-39.9) 09/15/2014 11/18/2017 Kidney stone 08/28/2014 03/10/2017 Right flank pain 08/28/2014 03/10/2017 Renal calculi 05/13/2010 03/10/2017 documented as of this encounter (statuses as of 05/19/2022) [address]27-2017 History of Past illness Narrative* Problem Noted Date Resolved Date Tick bite 10/21/2016 03/10/2017 Obesity (BMI 30-39.9) 09/15/2014 11/18/2017 Kidney stone 08/28/2014 03/10/2017 Right flank pain 08/28/2014 03/10/2017 Renal calculi 05/13/2010 03/10/2017 documented as of this encounter (statuses as of 06/18/2022) [address]27-2017 History of Past illness Narrative* Problem Noted Date Resolved Date Tick bite 10/21/2016 03/10/2017 Obesity (BMI 30-39.9) 09/15/2014 11/18/2017 Kidney stone 08/28/2014 03/10/2017 Right flank pain 08/28/2014 03/10/2017 Renal calculi 05/13/2010 03/10/2017 documented as of this encounter (statuses as of 06/30/2022) [address]27-2017 History of Past illness Narrative* Problem Noted Date Resolved Date Tick bite 10/21/2016 03/10/2017 Obesity (BMI 30-39.9) 09/15/2014 11/18/2017 Kidney stone 08/28/2014 03/10/2017 Right flank pain 08/28/2014 03/10/2017 Renal calculi 05/13/2010 03/10/2017 documented as of this encounter (statuses as of 07/28/2022) [address]27-2017 History of Past illness Narrative* Problem Noted Date Resolved Date Tick bite 10/21/2016 03/10/2017 Obesity (BMI 30-39.9) 09/15/2014 11/18/2017 Kidney stone 08/28/2014 03/10/2017 Right flank pain 08/28/2014 03/10/2017 Renal calculi 05/13/2010 03/10/2017 documented as of this encounter (statuses as of 08/02/2022) [address]27-2017 History of Past illness Narrative* Problem Noted Date Resolved Date Tick bite 10/21/2016 03/10/2017 Obesity (BMI 30-39.9) 09/15/2014 11/18/2017 Kidney stone 08/28/2014 03/10/2017 Right flank pain 08/28/2014 03/10/2017 Renal calculi 05/13/2010 03/10/2017 documented as of this encounter (statuses as of 08/08/2022) [facility] History of Past illness Narrative* Problem Noted Date Resolved Date Tick bite 10/21/2016 03/10/2017 Obesity (BMI 30-39.9) 09/15/2014 11/18/2017 Kidney stone 08/28/2014 03/10/2017 Right flank pain 08/28/2014 03/10/2017 Renal calculi 05/13/2010 03/10/2017 documented as of this encounter (statuses as of 08/08/2022) [address]27-2017 History of Past illness Narrative* Problem Noted Date Resolved Date Tick bite 10/21/2016 03/10/2017 Obesity (BMI 30-39.9) 09/15/2014 11/18/2017 Kidney stone 08/28/2014 03/10/2017 Right flank pain 08/28/2014 03/10/2017 Renal calculi 05/13/2010 03/10/2017 documented as of this encounter (statuses as of 08/15/2022) [address]27-2017 History of Past illness Narrative* Problem Noted Date Resolved Date Tick bite 10/21/2016 03/10/2017 Obesity (BMI 30-39.9) 09/15/2014 11/18/2017 Kidney stone 08/28/2014 03/10/2017 Right flank pain 08/28/2014 03/10/2017 Renal calculi 05/13/2010 03/10/2017 documented as of this encounter (statuses as of 08/20/2022) [facility] History of Past illness Narrative* Problem Noted Date Resolved Date Tick bite 10/21/2016 03/10/2017 Obesity (BMI 30-39.9) 09/15/2014 11/18/2017 Kidney stone 08/28/2014 03/10/2017 Right flank pain 08/28/2014 03/10/2017 Renal calculi 05/13/2010 03/10/2017 documented as of this encounter (statuses as of 08/29/2022) [place] [id number] History of Past illness Narrative* Problem Noted Date Resolved Date Tick bite 10/21/2016 03/10/2017 Obesity (BMI 30-39.9) 09/15/2014 11/18/2017 Kidney stone 08/28/2014 03/10/2017 Right flank pain 08/28/2014 03/10/2017 Renal calculi 05/13/2010 03/10/2017 documented as of this encounter (statuses as of 10/13/2022) [address]27-2017 History of Past illness Narrative* Problem Noted Date Resolved Date Tick bite 10/21/2016 03/10/2017 Obesity (BMI 30-39.9) 09/15/2014 11/18/2017 Kidney stone 08/28/2014 03/10/2017 Right flank pain 08/28/2014 03/10/2017 Renal calculi 05/13/2010 03/10/2017 documented as of this encounter (statuses as of 10/24/2022) [place] [id number] History of Past illness Narrative* Problem Noted Date Diagnosed Date Resolved Date Tick bite 10/21/2016 03/10/2017 Obesity (BMI 30-39.9) 09/15/20142017 Kidney stone 08/28/2014 03/10/2017 Right flank pain 08/28/2014 03/10/2017 Renal calculi 05/13/2010 03/10/2017 documented as of this encounter (statuses as of 12/03/2022) [facility] History of Past illness Narrative* Problem Noted Date Diagnosed Date Resolved Date Tick bite 10/21/2016 03/10/2017 Obesity (BMI 30-39.9) 09/15/20142017 Kidney stone 08/28/2014 03/10/2017 Right flank pain 08/28/2014 03/10/2017 Renal calculi 05/13/2010 03/10/2017 documented as of this encounter (statuses as of 12/30/2022) [address]27-2017 History of Past illness Narrative* Problem Noted Date Diagnosed Date Resolved Date Tick bite 10/21/2016 03/10/2017 Obesity (BMI 30-39.9) 09/15/20142017 Kidney stone 08/28/2014 03/10/2017 Right flank pain 08/28/2014 03/10/2017 Renal calculi 05/13/2010 03/10/2017 documented as of this encounter (statuses as of 12/31/2022) [address]27-2017 History of Past illness Narrative* Problem Noted Date Diagnosed Date Resolved Date Tick bite 10/21/2016 03/10/2017 Obesity (BMI 30-39.9) 09/15/20142017 Kidney stone 08/28/2014 03/10/2017 Right flank pain 08/28/2014 03/10/2017 Renal calculi 05/13/2010 03/10/2017 documented as of this encounter (statuses as of 01/31/2023) [address]27-2017 History of Past illness Narrative* Problem Noted Date Diagnosed Date Resolved Date Tick bite 10/21/2016 03/10/2017 Obesity (BMI 30-39.9) 09/15/20142017 Kidney stone 08/28/2014 03/10/2017 Right flank pain 08/28/2014 03/10/2017 Renal calculi 05/13/2010 03/10/2017 documented as of this encounter (statuses as of 02/04/2023) [address]27-2017 History of Past illness Narrative* Problem Noted Date Diagnosed Date Resolved Date Tick bite 10/21/2016 03/10/2017 Obesity (BMI 30-39.9) 09/15/20142017 Kidney stone 08/28/2014 03/10/2017 Right flank pain 08/28/2014 03/10/2017 Renal calculi 05/13/2010 03/10/2017 documented as of this encounter (statuses as of 02/06/2023) [address]27-2017 History of Past illness Narrative* Problem Noted Date Diagnosed Date Resolved Date Tick bite 10/21/2016 03/10/2017 Obesity (BMI 30-39.9) 09/15/20142017 Kidney stone 08/28/2014 03/10/2017 Right flank pain 08/28/2014 03/10/2017 Renal calculi 05/13/2010 03/10/2017 documented as of this encounter (statuses as of 02/09/2023) [address]27-2017 History of Past illness Narrative* Problem Noted Date Diagnosed Date Resolved Date Tick bite 10/21/2016 03/10/2017 Obesity (BMI 30-39.9) 09/15/20142017 Kidney stone 08/28/2014 03/10/2017 Right flank pain 08/28/2014 03/10/2017 Renal calculi 05/13/2010 03/10/2017 documented as of this encounter (statuses as of 02/12/2023) [address]27-2017 History of Past illness Narrative* Problem Noted Date Diagnosed Date Resolved Date Tick bite 10/21/2016 03/10/2017 Obesity (BMI 30-39.9) 09/15/20142017 Kidney stone 08/28/2014 03/10/2017 Right flank pain 08/28/2014 03/10/2017 Renal calculi 05/13/2010 03/10/2017 documented as of this encounter (statuses as of 02/12/2023) [address]27-2017 History of Past illness Narrative* Problem Noted Date Diagnosed Date Resolved Date Tick bite 10/21/2016 03/10/2017 Obesity (BMI 30-39.9) 09/15/20142017 Kidney stone 08/28/2014 03/10/2017 Right flank pain 08/28/2014 03/10/2017 Renal calculi 05/13/2010 03/10/2017 documented as of this encounter (statuses as of 02/19/2023) [address]27-2017 History of Past illness Narrative* Problem Noted Date Diagnosed Date Resolved Date Tick bite 10/21/2016 03/10/2017 Obesity (BMI 30-39.9) 09/15/20142017 Kidney stone 08/28/2014 03/10/2017 Right flank pain 08/28/2014 03/10/2017 Renal calculi 05/13/2010 03/10/2017 documented as of this encounter (statuses as of 02/19/2023) [address]27-2017 History of Past illness Narrative* Problem Noted Date Diagnosed Date Resolved Date Tick bite 10/21/2016 03/10/2017 Obesity (BMI 30-39.9) 09/15/20142017 Kidney stone 08/28/2014 03/10/2017 Right flank pain 08/28/2014 03/10/2017 Renal calculi 05/13/2010 03/10/2017 documented as of this encounter (statuses as of 02/28/2023) [address]27-2017 History of Past illness Narrative* Problem Noted Date Diagnosed Date Resolved Date Tick bite 10/21/2016 03/10/2017 Obesity (BMI 30-39.9) 09/15/20142017 Kidney stone 08/28/2014 03/10/2017 Right flank pain 08/28/2014 03/10/2017 Renal calculi 05/13/2010 03/10/2017 documented as of this encounter (statuses as of 03/01/2023) [address]27-2017 History of Past illness Narrative* Problem Noted Date Diagnosed Date Resolved Date Tick bite 10/21/2016 03/10/2017 Obesity (BMI 30-39.9) 09/15/20142017 Kidney stone 08/28/2014 03/10/2017 Right flank pain 08/28/2014 03/10/2017 Renal calculi 05/13/2010 03/10/2017 documented as of this encounter (statuses as of 03/01/2023) [address]27-2017 History of Past illness Narrative* Problem Noted Date Diagnosed Date Resolved Date Tick bite 10/21/2016 03/10/2017 Obesity (BMI 30-39.9) 09/15/20142017 Kidney stone 08/28/2014 03/10/2017 Right flank pain 08/28/2014 03/10/2017 Renal calculi 05/13/2010 03/10/2017 documented as of this encounter (statuses as of 03/01/2023) [facility]2017 History of Past illness Narrative* Problem Noted Date Diagnosed Date Resolved Date Tick bite 10/21/2016 03/10/2017 Obesity (BMI 30-39.9) 09/15/20142017 Kidney stone 08/28/2014 03/10/2017 Right flank pain 08/28/2014 03/10/2017 Renal calculi 05/13/2010 03/10/2017 documented as of this encounter (statuses as of 03/01/2023) [address]27-2017 History of Past illness Narrative* Problem Noted Date Diagnosed Date Resolved Date Tick bite 10/21/2016 03/10/2017 Obesity (BMI 30-39.9) 09/15/20142017 Kidney stone 08/28/2014 03/10/2017 Right flank pain 08/28/2014 03/10/2017 Renal calculi 05/13/2010 03/10/2017 documented as of this encounter (statuses as of 03/01/2023) [address]27-2017 History of Past illness Narrative* Problem Noted Date Diagnosed Date Resolved Date Tick bite 10/21/2016 03/10/2017 Obesity (BMI 30-39.9) 09/15/20142017 Kidney stone 08/28/2014 03/10/2017 Right flank pain 08/28/2014 03/10/2017 Renal calculi 05/13/2010 03/10/2017 documented as of this encounter (statuses as of 03/06/2023) [address]27-2017 History of Past illness Narrative* Problem Noted Date Diagnosed Date Resolved Date Tick bite 10/21/2016 03/10/2017 Obesity (BMI 30-39.9) 09/15/20142017 Kidney stone 08/28/2014 03/10/2017 Right flank pain 08/28/2014 03/10/2017 Renal calculi 05/13/2010 03/10/2017 documented as of this encounter (statuses as of 03/12/2023) [address]27-2017 History of Past illness Narrative* Problem Noted Date Diagnosed Date Resolved Date Tick bite 10/21/2016 03/10/2017 Obesity (BMI 30-39.9) 09/15/20142017 Kidney stone 08/28/2014 03/10/2017 Right flank pain 08/28/2014 03/10/2017 Renal calculi 05/13/2010 03/10/2017 documented as of this encounter (statuses as of 03/24/2023) [address]27-2017 History of Past illness Narrative* Problem Noted Date Diagnosed Date Resolved Date Tick bite 10/21/2016 03/10/2017 Obesity (BMI 30-39.9) 09/15/20142017 Kidney stone 08/28/2014 03/10/2017 Right flank pain 08/28/2014 03/10/2017 Renal calculi 05/13/2010 03/10/2017 documented as of this encounter (statuses as of 03/27/2023) [address]27-2017 History of Past illness Narrative* Problem Noted Date Diagnosed Date Resolved Date Tick bite 10/21/2016 03/10/2017 Obesity (BMI 30-39.9) 09/15/20142017 Kidney stone 08/28/2014 03/10/2017 Right flank pain 08/28/2014 03/10/2017 Renal calculi 05/13/2010 03/10/2017 documented as of this encounter (statuses as of 03/30/2023) [facility] note* Diagnosis Anxiety disorder, unspecified type- Primary Impaired concentration IFG (impaired fasting glucose) Impaired fasting glucose Hypothyroidism, acquired Unspecified hypothyroidism Dyslipidemia Other and unspecified hyperlipidemia Obesity, Class II, BMI 35-39.9 Obesity, unspecified Vitamin D deficiency Unspecified vitamin D deficiency Hip pain Pain in joint, pelvic region and thigh documented in this encounter [facility] note* Diagnosis Obesity, Class III, BMI 40-49.9 (morbid obesity) ([facility])- Primary Morbid obesity Impaired concentration Dyslipidemia Other and unspecified hyperlipidemia documented in this encounter [facility] note* Diagnosis Obesity, Class III, BMI 40-49.9 (morbid obesity) ([facility])- Primary Morbid obesity Dyslipidemia Other and unspecified hyperlipidemia IFG (impaired fasting glucose) Impaired fasting glucose Impaired concentration documented in this encounter [facility] note* Diagnosis Impaired concentration- Primary Obesity, Class III, BMI 40-49.9 (morbid obesity) (HCC) Morbid obesity Dyslipidemia Other and unspecified hyperlipidemia IFG (impaired fasting glucose) Impaired fasting glucose Pain in both hands documented in this encounter [facility] note* Diagnosis Encounter for screening mammogram for breast cancer- Primary documented in this encounter [facility] note* Diagnosis Hair thinning- Primary Alopecia, unspecified Hair loss Alopecia, unspecified Hypothyroidism, acquired Unspecified hypothyroidism Fatigue, unspecified type Stress Other psychological or physical stress, not elsewhere classified Body aches Generalized pain Anxiety disorder, unspecified type Impaired concentration documented in this encounter [facility] note* Diagnosis COVID-19- Primary documented in this encounter [facility] note* Diagnosis Post-op pain- Primary Other acute postoperative pain Pelvic mass in female Abdominal or pelvic swelling, mass or lump, unspecified site documented in this encounter [facility] Work Phone: Evaluation note* Diagnosis Premature menopause- Primary Surgical menopause Symptomatic states associated with artificial menopause Neuritis Neuralgia, neuritis, and radiculitis, unspecified Acute midline low back pain without sciatica documented in this encounter [facility] note* Diagnosis Abdominal pain, LLQ- Primary Abdominal pain, left lower quadrant Hx of bilateral oophorectomy Acquired absence of organ, genital organs Left lower quadrant abdominal pain Bloody stool Blood in stool Chronic midline low back pain without sciatica [facility] Diagnosis Acute right flank pain- Primary Abdominal pain, unspecified site History of renal stone Personal history of urinary calculi Hair loss Alopecia, unspecified Thyroid nodule Nontoxic uninodular goiter Sacral pain Disorders of sacrum Chronic midline low back pain without sciatica Impaired concentration Adnexal cyst Other specified symptom associated with female genital organs [facility]* Diagnosis Thyroid nodule- Primary Nontoxic uninodular goiter Hypothyroidism, acquired Unspecified hypothyroidism Dyslipidemia Other and unspecified hyperlipidemia Hair loss Alopecia, unspecified [facility]* Diagnosis Hip pain Pain in joint, pelvic region and thigh [facility]* Diagnosis Impaired concentration [facility]* Diagnosis Right nephrolithiasis- Primary Impaired concentration Anxiety disorder, unspecified type Obesity, Class II, BMI 35-39.9 Obesity, unspecified Magnesium deficiency Disorders of magnesium metabolism Dermatofibroma Benign neoplasm of skin, site unspecified Chronic SI joint pain Disorders of sacrum Sclerosis of sacroiliac joint Disorders of sacrum [facility]* Diagnosis Encounter for screening mamm[facility] for [facility] Diagnosis Obesity, Class III, BMI 40-49.9 (morbid obesity) (HCC)- Primary Morbid obesity Dyslipidemia Other and unspecified hyperlipidemia Hypothyroidism, acquired Unspecified hypothyroidism Sacral pain Disorders of sacrum Chronic midline low back pain without sciatica [facility]* Diagnosis Viral bronchitis- Primary Acute bronchitis Sore throat Acute pharyngitis Acute cough [facility]* Diagnosis Persistent cough- Primary Cough Bronchitis Bronchitis, not specified as acute or chronic Hoarse Dysphonia Vaginal lesion Other specified noninflammatory disorder of vagina [facility]* Diagnosis Bronchitis Bronchitis, not specified as acute or chronic Hoarse Dysphonia Persistent cough Cough [facility]* Diagnosis Impaired concentration Obesity, Class III, BMI 40-49.9 (morbid obesity) (HCC) Morbid obesity documented in this encounter [facility] note* Diagnosis Obesity, Class III, BMI 40-49.9 (morbid obesity) (HCC) Morbid obesity [facility]* Diagnosis Obesity, Class II, BMI 35-39.9- Primary Obesity, unspecified Impaired concentration Anxiety disorder, unspecified type Hypothyroidism, acquired Unspecified hypothyroidism documented in this encounter [facility] note* Diagnosis Hip pain Pain in joint, pelvic region and thigh documented in this encounter [facility] note* Diagnosis Obesity, Class II, BMI 35-39.9 Obesity, unspecified documented in this encounter [facility] note* Diagnosis Obesity, Class II, BMI 35-39.9 Obesity, unspecified documented in this encounter [facility] note* Diagnosis Gross hematuria- Primary Kidney stone Calculus of kidney Impaired concentration Flank pain Abdominal pain, unspecified site documented in this encounter [facility] note* Diagnosis Kidney stone Calculus of kidney Gross hematuria Flank pain Abdominal pain, unspecified site documented in this encounter [facility] note* Diagnosis Right ureteral stone- Primary Calculus of ureter Acute right flank pain Abdominal pain, unspecified site Gross hematuria Kidney stone Calculus of kidney Flank pain Abdominal pain, unspecified site documented in this encounter [facility] note* Diagnosis Procedure not carried out- Primary Procedure not carried out for other reasons documented in this encounter [facility] note* Diagnosis Right nephrolithiasis documented in this encounter [facility] note* Diagnosis Right ureteral stone Calculus of ureter Kidney stone Calculus of kidney [facility]* Diagnosis Hair loss Alopecia, unspecified Thyroid nodule Nontoxic uninodular goiter Kidney stone Calculus of kidney [facility]* Diagnosis Acute right flank pain Abdominal pain, unspecified site History of renal stone Personal history of urinary calculi Kidney stone Calculus of kidney documented in this encounter [facility] note* Diagnosis Sacral pain Disorders of sacrum Chronic midline low back pain without sciatica Kidney stone Calculus of kidney documented in this encounter [facility] note* Diagnosis Left lower quadrant abdominal pain Kidney stone Calculus of kidney documented in this encounter [facility] note* Diagnosis Right ureteral stone Calculus of ureter Kidney stone Calculus of kidney documented in this encounter [facility] note* Diagnosis Hypothyroidism, acquired- Primary Unspecified hypothyroidism Impaired concentration Anxiety disorder, unspecified type Dysmetabolic syndrome Dysmetabolic Syndrome X Kidney stone Calculus of kidney Obesity, Class II, BMI 35-39.9 Obesity, unspecified Kidney stone Calculus of kidney documented in this encounter [facility] note* Diagnosis Right ureteral stone- Primary Calculus of ureter Acute cystitis without hematuria Acute cystitis Right nephrolithiasis documented in this encounter [facility] for referral (narrative)* Diagnostic Procedure Only (Routine) - Pending Review Specialty Diagnoses / Procedures Referred By Juan Francisco barnett Referred To Contact [facility] Diagnoses Encounter for screening mammogram for breast cancer Procedures MIRELLA SCREENING W CHRISTIANO SCREENING DIGITAL BREAST TOMOSYNTHESIS BI SCREENING MAMMOGRAPHY BI 2-VIEW BREAST INC Jose Luis Alexander, DO [address] [place] [address] [facility] [address] [place] [address] Referral ID Status Reason Start Date Expiration Date Visits Requested Visits Authorized [id number] Pending Review Auto-Generat ed Referral 06/07/2021 07/07/2022 1 1 [facility] for referral (narrative)* Diagnostic Procedure Only (Routine) - Pending Review Specialty Diagnoses / Procedures Referred By Juan Francisco barnett Referred To Contact BR IMAGING Diagnoses Encounter for screening mammogram for breast cancer Procedures MIRELLA SCREENING SCREENING MAMMOGRAPHY BI 2-VIEW BREAST INC Jose Luis Alexander DO [address] [place] [address] [facility] [address] [place] [address] Referral ID Status Reason Start Date Expiration Date Visits Requested Visits Authorized [id number] Pending Review Auto-Generat ed Referral 07/23/2022 08/22/2023 1 1 [facility] for referral (narrative)* Diagnostic Procedure Only (Routine) - Authorized Specialty Diagnoses / Procedures Referred By Juan Francisco barnett Referred To Contact US IMAGING Diagnoses Right ureteral stone Procedures US KIDNEY/BLADDER US RETROPERITONEAL REAL TIME W/IMAGE COMPLETE Piccari, Shaina M, OPERATING ROOM MANAGER.SOCIOLOGY PROFESSOR [address] [place] [address] [place] [address] Referral ID Status Reason Start Date Expiration Date Visits Requested Visits Authorized [id number] Authorized Auto-Generat ed Referral 3 03/10/2024 1 1 * Diagnostic Procedure Only (Routine) - Pending Review Specialty Diagnoses / Procedures Referred By Contac t Referred To Contact XR IMAGING Diagnoses Right ureteral stone Procedures XR ABDOMEN 1V SUPINE RADIOLOGIC EXAM ABDOMEN 1 VIEW Shaina Crowley APRN.SOCIOLOGY PROFESSOR [address] [place] [address] [place] [address] Referral ID Status Reason Start Date Expiration Date Visits Requested Visits Authorized [id number] Pending Review Auto-Generat ed Referral 3 03/10/2024 1 1 [facility] for referral (narrative)* Diagnostic Procedure Only (Routine) - Closed Specialty Diagnoses / Procedures Referred By Contac t Referred To Contact US IMAGING Diagnoses Right ureteral stone Procedures US KIDNEY/BLADDER US RETROPERITONEAL REAL TIME W/IMAGE COMPLETE Shaina Crowley APRN.SOCIOLOGY PROFESSOR [address] [place] [address] [place] [address] Referral ID Status Reason Start Date Expiration Date V isits Requested Visits Authorized [id number] Closed Auto-Generate d Referral 02/09/2023 03/10/2024 1 1 [facility] for referral (narrative)* Diagnostic Procedure Only (Routine) - Closed Specialty Diagnoses / Procedures Referred By Contac t Referred To Contact US IMAGING Diagnoses Hair loss Thyroid nodule Procedures US THYROID/PARATHYROID US SOFT TISSUE HEAD & NECK REAL TIME IMGE Jose Luis Palacios, DO [address] [place] [address] [place] [address] Referral ID Status Reason Start Date Expiration Date V isits Requested Visits Authorized [id number] Closed Auto-Generate d Referral 05/12/2022 06/11/2023 1 1 [facility] for referral (narrative)* Diagnostic Procedure Only (Routine) - Closed Specialty Diagnoses / Procedures Referred By Contac t Referred To Contact XR IMAGING Diagnoses Sacral pain Chronic midline low back pain without sciatica Procedures XR LUMBAR GENERAL 3V AP/LAT/L5-S1 RADEX SPINE LUMBOSACRAL 2/3 VIEWS Jose Luis Toledo DO [address] [place] [address] [place] [address] Referral ID Status Reason Start Date Expiration Date V isits Requested Visits Authorized [id number] Closed Auto-Generate d Referral 05/12/2022 06/11/2023 1 1 [facility] for referral (narrative)* Diagnostic Procedure Only (Routine) - Closed Specialty Diagnoses / Procedures Referred By Contac t Referred To Contact XR IMAGING Diagnoses Right ureteral stone Procedures XR ABDOMEN 1V SUPINE RADIOLOGIC EXAM ABDOMEN 1 VIEW Shaina Crowley APRN.SOCIOLOGY PROFESSOR [address] [place] [address] [place] [address] Referral ID Status Reason Start Date Expiration Date V isits Requested Visits Authorized [id number] Closed Auto-Generate d Referral 02/09/2023 03/10/2024 1 1 [facility] for referral (narrative)* Diagnostic Procedure Only (Routine) - Closed Specialty Diagnoses / Procedures Referred By Contac t Referred To Contact XR IMAGING Diagnoses Sacral pain Chronic midline low back pain without sciatica Procedures XR SACRUM/COCCYX 3V AP/LAT RADEX SACRUM & COCCYX MINIMUM 2 VIEWS Jose Luis Toledo DO [address] [place] [address] [place] [address] Referral ID Status Reason Start Date Expiration Date V isits Requested Visits Authorized [id number] Closed Auto-Generate d Referral 05/12/2022 06/11/2023 1 1 [facility] for referral (narrative)* Diagnostic Procedure Only (Routine) - Pending Review Specialty Diagnoses / Procedures Referred By Contac t Referred To Contact XR IMAGING Diagnoses Right ureteral stone Procedures XR ABDOMEN 1V SUPINE RADIOLOGIC EXAM ABDOMEN 1 VIEW Zunilda Irving, OPERATING ROOM MANAGER.SOCIOLOGY PROFESSOR [address] [address] [place] [address] Referral ID Status Reason Start Date Expiration Date Visits Requested Visits Authorized [id number] Pending Review Auto-Generat ed Referral 09/22/2023 04/22/2024 1 1 [facility] for visit Narrative* Diagnostic Procedure Only (Routine) - Closed Specialty Diagnoses / Procedures Referred By Contac t Referred To Contact XR IMAGING Diagnoses Sacral pain Chronic midline low back pain without sciatica Procedures XR LUMBAR GENERAL 3V AP/LAT/L5-S1 RADEX SPINE LUMBOSACRAL 2/3 VIEWS Jose Luis Toledo DO [address] [place] [address] [place] [address] Referral ID Status Reason Start Date Expiration Date V isits Requested Visits Authorized [id number] Closed Auto-Generate d Referral 05/12/2022 06/11/2023 1 1 [facility] for visit Narrative* Diagnostic Procedure Only (Routine) - Closed Specialty Diagnoses / Procedures Referred By Contac t Referred To Contact XR IMAGING Diagnoses Right ureteral stone Procedures XR ABDOMEN 1V SUPINE RADIOLOGIC EXAM ABDOMEN 1 VIEW Shaina Crowley OPERATING ROOM MANAGER.SOCIOLOGY PROFESSOR [address] [place] [address] [place] [address] Referral ID Status Reason Start Date Expiration Date V isits Requested Visits Authorized [id number] Closed Auto-Generate d Referral 02/09/2023 03/10/2024 1 1 [facility] Diagnostic Procedure Only (Routine) - Closed Specialty Diagnoses / Procedures Referred By Contac t Referred To Contact XR IMAGING Diagnoses Sacral pain Chronic midline low back pain without sciatica Procedures XR SACRUM/COCCYX 3V AP/LAT RADEX SACRUM & COCCYX MINIMUM 2 VIEWS Jose Luis Toledo, DO [address] [place] [address] [place] [address] Referral ID Status Reason Start Date Expiration Date V isits Requested Visits Authorized [id number] Closed Auto-Generate d Referral 05/12/2022 06/11/2023 1 1 [facility] Summary Purpose Family History No Family History Records FoundNo Family History Records FoundNo Family History Records FoundNo Family History Records FoundNo Family History Records FoundNo Family History Records FoundNo Family History Records Found Advance Directives No Advanced Directives Records FoundDocuments on File Type Date 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 Advance Directive(s) 06/24/2019 2:58 PM Latest Code Status on File Code Status Date Activated Date Inactivated Comments Full Code 01/27/2022 10:54 AM Health Concerns Infection Onset Date Last Indicated Resolved Time COVID-19 Confirmed 01/16/2022 01/16/2022 Infection Onset Date Last Indicated Resolved Time COVID-19 Confirmed 01/16/2022 01/16/2022 8:51 PM EDT Reason for Referral Specialty Diagnoses / Procedures Referred By Contac t Referred To Contact CT IMAGING Diagnoses Left lower quadrant abdominal pain Procedures CT ABD/PEL W IVCON CT ABD & PELVIS W/CONTRAST Roxy Flores, OPERATING ROOM MANAGER.SOCIOLOGY PROFESSOR [address] [place] [address] Ct Imaging Referral ID Status Reason Start Date Expiration Date Visits Requested Visits Authorized [id number] Additional Clinical Info Needed Auto-Generat ed Referral 02/27/2022 03/29/2023 1 1 Specialty Diagnoses / Procedures Referred By Contac t Referred To Contact [facility] Diagnoses Sacral pain Chronic midline low back pain without sciatica Procedures CONSULT TO PAIN MGT OFFICE/OUTPATIENT NEW HIGH MDM 60-74 MINUTES Jose Luis Toledo, DO [address] [place] [address] [facility] [place] [address] [place] [address] Referral ID Status Reason Start Date Expiration Date V isits Requested Visits Authorized [id number] Closed PCP Requested Referral 05/12/2022 05/12/2023 1 1 Specialty Diagnoses / Procedures Referred By Contac t Referred To Contact XR IMAGING Diagnoses Sacral pain Chronic midline low back pain without sciatica Procedures XR LUMBAR GENERAL 3V AP/LAT/L5-S1 RADEX SPINE LUMBOSACRAL 2/3 VIEWS Jose Luis Toledo, DO [address] [place] [address] Xr Imaging Referral ID Status Reason Start Date Expiration Date Visits Requested Visits Authorized [id number] Authorized Auto-Generat ed Referral 05/12/2022 06/11/2023 1 1 Specialty Diagnoses / Procedures Referred By Contac t Referred To Contact XR IMAGING Diagnoses Sacral pain Chronic midline low back pain without sciatica Procedures XR SACRUM/COCCYX 3V AP/LAT RADEX SACRUM & COCCYX MINIMUM 2 VIEWS Jose Luis Toledo, DO [address] [place] [address] Xr Imaging Referral ID Status Reason Start Date Expiration Date Visits Requested Visits Authorized [id number] Authorized Auto-Generat ed Referral 05/12/2022 06/11/2023 1 1 Specialty Diagnoses / Procedures Referred By Contac t Referred To Contact US IMAGING Diagnoses Hair loss Thyroid nodule Procedures US THYROID/PARATHYROID US SOFT TISSUE HEAD & NECK REAL TIME IMGE DOCM Jose Luis Toledo, DO [address] [place] [address] Us Imaging Referral ID Status Reason Start Date Expiration Date Visits Requested Visits Authorized [id number] Authorized Auto-Generat ed Referral 05/12/2022 06/11/2023 1 1 Specialty Diagnoses / Procedures Referred By Contac t Referred To Contact CT IMAGING Diagnoses Acute right flank pain History of renal stone Procedures CT FLANK WO IVCON CT ABD & PELVIS W/O CONTRAST Jose Luis Toledo, DO [address] [place] [address] Ct Imaging Referral ID Status Reason Start Date Expiration Date Visits Requested Visits Authorized [id number] Authorized Auto-Generat ed Referral 05/12/2022 07/11/2022 1 1 Specialty Diagnoses / Procedures Referred By Contac t Referred To Contact Diagnoses Right nephrolithiasis Jose Luis oTledo, DO [address] [place] [address] Referral ID Status Reason Start Date Expiration Date Visits Re quested Visits Authorized [id number] Closed 1 1 Specialty Diagnoses / Procedures Referred By Contac t Referred To Contact Diagnoses Impaired concentration 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, OPERATING ROOM MANAGER.SOCIOLOGY PROFESSOR [address] [place] [address] Referral ID Status Reason Start Date Expiration Date Visits Re quested Visits Authorized [id number] Closed 1 1 Specialty Diagnoses / Procedures Referred By Contac t Referred To Contact Urology Diagnoses Kidney stone Gross hematuria Flank pain Procedures CONSULT TO UROLOGY OFFICE/OUTPATIENT [facility] 60-74 MINUTES 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, OPERATING ROOM MANAGER.SOCIOLOGY PROFESSOR [address] [place] [address] Referral ID Status Reason Start Date Expiration Date Visits Requested Visits Authorized [id number] Authorized PCP Requested Referral 02/02/2023 02/02/2024 1 1 Specialty Diagnoses / Procedures Referred By Contac t Referred To Contact CT IMAGING Diagnoses Kidney stone Gross hematuria Flank pain Procedures CT FLANK WO IVCON CT ABD & PELVIS W/O CONTRAST 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, OPERATING ROOM MANAGER.SOCIOLOGY PROFESSOR [address] [place] [address] [place] [address] Referral ID Status Reason Start Date Expiration Date Visits Requested Visits Authorized [id number] Authorized Auto-Generat ed Referral 02/02/2023 04/03/2023 1 1 Specialty Diagnoses / Procedures Referred By Contac t Referred To Contact CT IMAGING Diagnoses Acute right flank pain History of renal stone Procedures CT FLANK WO IVCON CT ABD & PELVIS W/O CONTRAST Jose Luis Toledo, DO [address] [place] [address] [place] [address] Referral ID Status Reason Start Date Expiration Date V isits Requested Visits Authorized [id number] Closed Auto-Generate d Referral 05/12/2022 07/11/2022 1 1 Specialty Diagnoses / Procedures Referred By Contac t Referred To Contact CT IMAGING Diagnoses Left lower quadrant abdominal pain Procedures CT ABD/PEL W IVCON CT ABD & PELVIS W/CONTRAST Roxy Flores APRN.SOCIOLOGY PROFESSOR [address] [place] [address] [place] [address] Referral ID Status Reason Start Date Expiration Date V isits Requested Visits Authorized [id number] Closed Auto-Generat ed Referral Patient Cleared - Admin/Chairm an/Director advise to proceed or did not respond 02/28/2022 05/19/2022 1 1 Specialty Diagnoses / Procedures Referred By Contac t Referred To Contact Diagnoses Impaired concentration Jose Luis Toledo, [address] [place] [address] Referral ID Status Reason Start Date Expiration Date Visits Re quested Visits Authorized [id number] Closed 1 1 Medications Administered Section Inactive Administered Medications - up to 3 most recent administrations Medication Order MAR Action Action Date Dose Rate Site albuterol 2.5 mg /3 mL (0.083 %) 2.5 mg (PROVENTIL) 2.5 mg, INHALATION, ONCE, 1 dose, On Lianet 08/14/22 at 1630 Given 08/14/2022 4:31 PM EDT 2.5 mg Oral Additional Source Comments INFORMATION SOURCE (unrecogn ized section and content) DATE CREATED AUTHOR AUTHOR'S ORGANIZ ATION 05/19/2020 [facility] DATE CREATED AUTHOR AUTHOR'S ORGANIZ ATION 02/05/2022 [facility] DATE CREATED AUTHOR AUTHOR'S ORGANIZ ATION 02/12/2023 [facility] DATE CREATED AUTHOR AUTHOR'S ORGANIZ ATION 02/20/2023 [facility] DATE CREATED AUTHOR AUTHOR'S ORGANIZ ATION 03/31/2023 [facility] DATE CREATED AUTHOR AUTHOR'S ORGANIZ ATION 04/07/2023 [facility] Source Comments (unrecognize d section and content) In the event this informatio n is protected by the Federal Confidentiality of Alcohol and Drug Abuse Patient Records regulations: The Federal rules restrict any use of the information to criminally investigate or prosecute any alcohol or drug abuse patient.[facility] event this information is protected by the Federal Confidentiality of Alcohol and Drug Abuse Patient Records regulations: The Federal rules restrict any use of the information to criminally investigate or prosecute any alcohol or drug abuse patient.[facility] the event this information is protected by the Federal Confidentiality of Alcohol and Drug Abuse Patient Records regulations: The Federal rules restrict any use of the information to criminally investigate or prosecute any alcohol or drug abuse patient.[facility] the event this information is protected by the Federal Confidentiality of Alcohol and Drug Abuse Patient Records regulations: The Federal rules restrict any use of the information to criminally investigate or prosecute any alcohol or drug abuse patient.[facility] the event this information is protected by the Federal Confidentiality of Alcohol and Drug Abuse Patient Records regulations: The Federal rules restrict any use of the information to criminally investigate or prosecute any alcohol or drug abuse patient.[facility] the event this information is protected by the Federal Confidentiality of Alcohol and Drug Abuse Patient Records regulations: The Federal rules restrict any use of the information to criminally investigate or prosecute any alcohol or drug abuse patient.[facility] the event this information is protected by the Federal Confidentiality of Alcohol and Drug Abuse Patient Records regulations: The Federal rules restrict any use of the information to criminally investigate or prosecute any alcohol or drug abuse patient.[facility] the event this information is protected by the Federal Confidentiality of Alcohol and Drug Abuse Patient Records regulations: The Federal rules restrict any use of the information to criminally investigate or prosecute any alcohol or drug abuse patient.[facility] the event this information is protected by the Federal Confidentiality of Alcohol and Drug Abuse Patient Records regulations: The Federal rules restrict any use of the information to criminally investigate or prosecute any alcohol or drug abuse patient.[facility] the event this information is protected by the Federal Confidentiality of Alcohol and Drug Abuse Patient Records regulations: The Federal rules restrict any use of the information to criminally investigate or prosecute any alcohol or drug abuse patient.[facility] the event this information is protected by the Federal Confidentiality of Alcohol and Drug Abuse Patient Records regulations: The Federal rules restrict any use of the information to criminally investigate or prosecute any alcohol or drug abuse patient.[facility] HospitalIn the event this information is protected by the Federal Confidentiality of Alcohol and Drug Abuse Patient Records regulations: The Federal rules restrict any use of the information to criminally investigate or prosecute any alcohol or drug abuse patient.[facility] HospitalIn the event this information is protected by the Federal Confidentiality of Alcohol and Drug Abuse Patient Records regulations: The Federal rules restrict any use of the information to criminally investigate or prosecute any alcohol or drug abuse patient.[facility] HospitalIn the event this information is protected by the Federal Confidentiality of Alcohol and Drug Abuse Patient Records regulations: The Federal rules restrict any use of the information to criminally investigate or prosecute any alcohol or drug abuse patient.[facility] HospitalIn the event this information is protected by the Federal Confidentiality of Alcohol and Drug Abuse Patient Records regulations: The Federal rules restrict any use of the information to criminally investigate or prosecute any alcohol or drug abuse patient.[facility] HospitalIn the event this information is protected by the Federal Confidentiality of Alcohol and Drug Abuse Patient Records regulations: The Federal rules restrict any use of the information to criminally investigate or prosecute any alcohol or drug abuse patient.[facility] HospitalIn the event this information is protected by the Federal Confidentiality of Alcohol and Drug Abuse Patient Records regulations: The Federal rules restrict any use of the information to criminally investigate or prosecute any alcohol or drug abuse patient.[facility] HospitalIn the event this information is protected by the Federal Confidentiality of Alcohol and Drug Abuse Patient Records regulations: The Federal rules restrict any use of the information to criminally investigate or prosecute any alcohol or drug abuse patient.[facility] HospitalIn the event this information is protected by the Federal Confidentiality of Alcohol and Drug Abuse Patient Records regulations: The Federal rules restrict any use of the information to criminally investigate or prosecute any alcohol or drug abuse patient.[facility] HospitalIn the event this information is protected by the Federal Confidentiality of Alcohol and Drug Abuse Patient Records regulations: The Federal rules restrict any use of the information to criminally investigate or prosecute any alcohol or drug abuse patient.[facility] HospitalIn the event this information is protected by the Federal Confidentiality of Alcohol and Drug Abuse Patient Records regulations: The Federal rules restrict any use of the information to criminally investigate or prosecute any alcohol or drug abuse patient.[facility] HospitalIn the event this information is protected by the Federal Confidentiality of Alcohol and Drug Abuse Patient Records regulations: The Federal rules restrict any use of the information to criminally investigate or prosecute any alcohol or drug abuse patient.[facility] HospitalIn the event this information is protected by the Federal Confidentiality of Alcohol and Drug Abuse Patient Records regulations: The Federal rules restrict any use of the information to criminally investigate or prosecute any alcohol or drug abuse patient.[facility] HospitalIn the event this information is protected by the Federal Confidentiality of Alcohol and Drug Abuse Patient Records regulations: The Federal rules restrict any use of the information to criminally investigate or prosecute any alcohol or drug abuse patient.[facility] HospitalIn the event this information is protected by the Federal Confidentiality of Alcohol and Drug Abuse Patient Records regulations: The Federal rules restrict any use of the information to criminally investigate or prosecute any alcohol or drug abuse patient.[facility] HospitalIn the event this information is protected by the Federal Confidentiality of Alcohol and Drug Abuse Patient Records regulations: The Federal rules restrict any use of the information to criminally investigate or prosecute any alcohol or drug abuse patient.[facility] HospitalIn the event this information is protected by the Federal Confidentiality of Alcohol and Drug Abuse Patient Records regulations: The Federal rules restrict any use of the information to criminally investigate or prosecute any alcohol or drug abuse patient.[facility] HospitalIn the event this information is protected by the Federal Confidentiality of Alcohol and Drug Abuse Patient Records regulations: The Federal rules restrict any use of the information to criminally investigate or prosecute any alcohol or drug abuse patient.[facility] HospitalIn the event this information is protected by the Federal Confidentiality of Alcohol and Drug Abuse Patient Records regulations: The Federal rules restrict any use of the information to criminally investigate or prosecute any alcohol or drug abuse patient.[facility] HospitalIn the event this information is protected by the Federal Confidentiality of Alcohol and Drug Abuse Patient Records regulations: The Federal rules restrict any use of the information to criminally investigate or prosecute any alcohol or drug abuse patient.[facility] HospitalIn the event this information is protected by the Federal Confidentiality of Alcohol and Drug Abuse Patient Records regulations: The Federal rules restrict any use of the information to criminally investigate or prosecute any alcohol or drug abuse patient.[facility] HospitalIn the event this information is protected by the Federal Confidentiality of Alcohol and Drug Abuse Patient Records regulations: The Federal rules restrict any use of the information to criminally investigate or prosecute any alcohol or drug abuse patient.[facility] HospitalIn the event this information is protected by the Federal Confidentiality of Alcohol and Drug Abuse Patient Records regulations: The Federal rules restrict any use of the information to criminally investigate or prosecute any alcohol or drug abuse patient.[facility] HospitalIn the event this information is protected by the Federal Confidentiality of Alcohol and Drug Abuse Patient Records regulations: The Federal rules restrict any use of the information to criminally investigate or prosecute any alcohol or drug abuse patient.[facility] HospitalIn the event this information is protected by the Federal Confidentiality of Alcohol and Drug Abuse Patient Records regulations: The Federal rules restrict any use of the information to criminally investigate or prosecute any alcohol or drug abuse patient.[facility] HospitalIn the event this information is protected by the Federal Confidentiality of Alcohol and Drug Abuse Patient Records regulations: The Federal rules restrict any use of the information to criminally investigate or prosecute any alcohol or drug abuse patient.[facility] HospitalIn the event this information is protected by the Federal Confidentiality of Alcohol and Drug Abuse Patient Records regulations: The Federal rules restrict any use of the information to criminally investigate or prosecute any alcohol or drug abuse patient.[facility] HospitalIn the event this information is protected by the Federal Confidentiality of Alcohol and Drug Abuse Patient Records regulations: The Federal rules restrict any use of the information to criminally investigate or prosecute any alcohol or drug abuse patient.[facility] HospitalIn the event this information is protected by the Federal Confidentiality of Alcohol and Drug Abuse Patient Records regulations: The Federal rules restrict any use of the information to criminally investigate or prosecute any alcohol or drug abuse patient.[facility] HospitalIn the event this information is protected by the Federal Confidentiality of Alcohol and Drug Abuse Patient Records regulations: The Federal rules restrict any use of the information to criminally investigate or prosecute any alcohol or drug abuse patient.[facility] HospitalIn the event this information is protected by the Federal Confidentiality of Alcohol and Drug Abuse Patient Records regulations: The Federal rules restrict any use of the information to criminally investigate or prosecute any alcohol or drug abuse patient.[facility] HospitalIn the event this information is protected by the Federal Confidentiality of Alcohol and Drug Abuse Patient Records regulations: The Federal rules restrict any use of the information to criminally investigate or prosecute any alcohol or drug abuse patient.[facility] HospitalIn the event this information is protected by the Federal Confidentiality of Alcohol and Drug Abuse Patient Records regulations: The Federal rules restrict any use of the information to criminally investigate or prosecute any alcohol or drug abuse patient.[facility] the event this information is protected by the Federal Confidentiality of Alcohol and Drug Abuse Patient Records regulations: The Federal rules restrict any use of the information to criminally investigate or prosecute any alcohol or drug abuse patient.[facility] HospitalIn the event this information is protected by the Federal Confidentiality of Alcohol and Drug Abuse Patient Records regulations: The Federal rules restrict any use of the information to criminally investigate or prosecute any alcohol or drug abuse patient.[facility] HospitalIn the event this information is protected by the Federal Confidentiality of Alcohol and Drug Abuse Patient Records regulations: The Federal rules restrict any use of the information to criminally investigate or prosecute any alcohol or drug abuse patient.[facility] ClinicIn the event this information is protected by the Federal Confidentiality of Alcohol and Drug Abuse Patient Records regulations: The Federal rules restrict any use of the information to criminally investigate or prosecute any alcohol or drug abuse patient.[facility] HospitalIn the event this information is protected by the Federal Confidentiality of Alcohol and Drug Abuse Patient Records regulations: The Federal rules restrict any use of the information to criminally investigate or prosecute any alcohol or drug abuse patient.[facility] HospitalIn the event this information is protected by the Federal Confidentiality of Alcohol and Drug Abuse Patient Records regulations: The Federal rules restrict any use of the information to criminally investigate or prosecute any alcohol or drug abuse patient.[facility] HospitalIn the event this information is protected by the Federal Confidentiality of Alcohol and Drug Abuse Patient Records regulations: The Federal rules restrict any use of the information to criminally investigate or prosecute any alcohol or drug abuse patient.[facility] HospitalIn the event this information is protected by the Federal Confidentiality of Alcohol and Drug Abuse Patient Records regulations: The Federal rules restrict any use of the information to criminally investigate or prosecute any alcohol or drug abuse patient.[facility] Reason for Visit (unrecogniz ed section and content) Reason Comments Medication Follow-up start adipex Reason Comments Weight Problem Reason Comments Weight Check Reason Comments Mammogram order Reason Comments Thyroid Problem Hair Loss Reason Comments Telemedicine Reason Comments Hospital F/U Reason Comments Follow Up Surgery on 01/27. Rem oval of both ovaries. Stabbing pain lower back and lower abdomen since surgery. Possible blood in stool. Reason Comments F/U 3 Month Reason Comments Patient Question Reason Comments Lab Orders Reason Comments Results Reason Onset Date Comments Refill Request 06/17/2022 Reason Comments F/U 3 Month Reason Comments Medication Follow-up Low Back Pain Possible injury x 1 week Reason Comments Chest Congestion Cough x 4 days Reason Comments Follow Up EC visit 08/07- viral bronchitis- still has cough & SOB. Completed prednisone yesterday. Reason Comments Med Change Request Reason Onset Date Comments Refill Request 08/28/2022 Reason Comments FYI-No Action Needed Reason Onset Date Comments Refill Request 10/24/2022 Reason Comments F/U 3 Month Reason Onset Date Comments Refill Request 12/29/2022 Reason Onset Date Comments Refill Request 01/29/2023 Reason Comments Hematuria On and off sinvce la st and rt side hurts , nausea with pain Reason Comments Radiology CT Specialty Diagnoses / Procedures Referred By Juan Francisco barnett Referred To Contact CT IMAGING Diagnoses Kidney stone Gross hematuria Flank pain Procedures CT FLANK WO IVCON CT ABD & PELVIS W/O CONTRAST 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, OPERATING ROOM MANAGER.SOCIOLOGY PROFESSOR [address] [place] [address] [place] [address] Referral ID Status Reason Start Date Expiration Date V isits Requested Visits Authorized [id number] Closed Auto-Generate d Referral 02/02/2023 04/03/2023 1 1 Reason Comments Kidney Stones Specialty Diagnoses / Procedures Referred By Contac t Referred To Contact Urology Diagnoses Kidney stone Gross hematuria Flank pain Procedures CONSULT TO UROLOGY OFFICE/OUTPATIENT [facility] HIGH MDM 60-74 MINUTES 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, OPERATING ROOM MANAGER.SOCIOLOGY PROFESSOR [address] [place] [address] Referral ID Status Reason Start Date Expiration Date V isits Requested Visits Authorized [id number] Closed PCP Requested Referral 02/02/2023 02/02/2024 1 1 Reason Comments Results Patient Update Reason Onset Date Comments Refill Request 02/19/2023 Reason Comments Patient Update Specialty Diagnoses / Procedures Referred By Contac t Referred To Contact CT IMAGING Diagnoses Left lower quadrant abdominal pain Procedures CT ABD/PEL W IVCON CT ABD & PELVIS W/CONTRAST Roxy Flores, OPERATING ROOM MANAGER.SOCIOLOGY PROFESSOR [address] [place] [address] [place] [address] Referral ID Status Reason Start Date Expiration Date V isits Requested Visits Authorized [id number] Closed Auto-Generat ed Referral Patient Cleared - Admin/Chairm an/Director advise to proceed or did not respond 02/28/2022 05/19/2022 1 1 Reason Comments Radiology US Specialty Diagnoses / Procedures Referred By Contac t Referred To Contact US IMAGING Diagnoses Right ureteral stone Procedures US KIDNEY/BLADDER US RETROPERITONEAL REAL TIME W/IMAGE COMPLETE Shaina Crowley, OPERATING ROOM MANAGER.SOCIOLOGY PROFESSOR [address] [place] [address] [place] [address] Referral ID Status Reason Start Date Expiration Date V isits Requested Visits Authorized [id number] Closed Auto-Generate d Referral 02/09/2023 03/10/2024 1 1 Specialty Diagnoses / Procedures Referred By Contac t Referred To Contact US IMAGING Diagnoses Hair loss Thyroid nodule Procedures US THYROID/PARATHYROID US SOFT TISSUE HEAD & NECK REAL TIME IMGE DOCM Jose Luis Toledo, DO [address] [place] [address] [place] [address] Referral ID Status Reason Start Date Expiration Date V isits Requested Visits Authorized [id number] Closed Auto-Generate d Referral 05/12/2022 06/11/2023 [address] Specialty Diagnoses / Procedures Referred By Contac t Referred To Contact CT IMAGING Diagnoses Acute right flank pain History of renal stone Procedures CT FLANK WO IVCON CT ABD & PELVIS W/O CONTRAST Jose Luis Toledo, DO [address] [place] [address] [place] [address] Referral ID Status Reason Start Date Expiration Date V isits Requested Visits Authorized [id number] Closed Auto-Generate d Referral 05/12/2022 07/11/2022 1 1 Reason Comments Follow Up 3 month follow up, p atient states she has a (R) kidney stone, appointment with Urology on 03/11 for removal Specialty Diagnoses / Procedures Referred By Contac t Referred To Contact Diagnoses Kidney stone Procedures LITHOTRIPSY XTRCORP SHOCK WAVE EXTRACORPOREAL SHOCKWAVE LITHOTRIPSY UNILATERAL Mr Surgery [address] [place] [address] Referral ID Status Reason Start Date Expiration Date Visits Re quested Visits Authorized [id number] 1 1 Reason Comments Kidney Stones Reason Comments urine culture results Results Care Teams (unrecognized sec tion and content) Carbon Paper Machine Operator Relationship Specialty Start Date End Date Jose Luis Toledo, DO [address] [place], [place] [id number] PCP - General Family Practice 09/15/14 Blade Mejias MD [address] [place] [phone] Neurosurgery 07/21/16 Carbon Paper Machine Operator Relationship Specialty Start Date End Date Jose Luis Toledo, DO [address] [place], [place] [id number] PCP - General Family Practice 09/15/14 Blade Mejias MD [address] [place] [phone] Neurosurgery 07/21/16 Carbon Paper Machine Operator Relationship Specialty Start Date End Date Jose Luis Toledo, DO [address] [place] [place] [address] PCP - General Family Practice 09/15/14 Blade Mejias MD [address] [place] [address] Neurosurgery 07/21/16 Carbon Paper Machine Operator Relationship Specialty Start Date End Date Jose Luis Toledo, DO [address] [facility] [place] [address] PCP - General Family Practice 09/15/14 Blade Mejias MD [address] [place] [address] Neurosurgery 07/21/16 Carbon Paper Machine Operator Relationship Specialty Start Date End Date Jose Luis Toledo, DO [address] [facility] [place] [address] PCP - General Family Medicine 09/15/14 Blade Mejias MD [address] [facility] [place] [address] Neurosurgery 07/21/16 Carbon Paper Machine Operator Relationship Specialty Start Date End Date Jose Luis Toledo, DO [address] [facility] [place] [address] PCP - General Family Medicine 09/15/14 Blade Mejias MD [address] [facility] [place] [address] Neurosurgery 07/21/16 Carbon Paper Machine Operator Relationship Specialty Start Date End Date Jose Luis Toledo [address] [facility] [place] [address] PCP - General Family Medicine 01/20/22 Carbon Paper Machine Operator Relationship Specialty Start Date End Date Jose Luis Toledo [address] [place] [address] PCP - General Family Medicine 01/20/22 Carbon Paper Machine Operator Relationship Specialty Start Date End Date Jose Luis Toledo, DO [address] [place] [address] PCP - General Family Medicine 09/15/14 Blade Mejias MD [address] [place] [address] Neurosurgery 07/21/16 Carbon Paper Machine Operator Relationship Specialty Start Date End Date Jose Luis Toledo, DO [address] [facility] [place] [address] PCP - General Family Medicine 09/15/14 Blade Mejias MD [address] [facility] [place] [address] Neurosurgery 07/21/16 Carbon Paper Machine Operator Relationship Specialty Start Date End Date Jose Luis Toledo, DO [address] [facility] [place] [address] PCP - General Family Medicine 09/15/14 Blade Mejias MD [address] [facility] [place] [address] Neurosurgery 07/21/16 Carbon Paper Machine Operator Relationship Specialty Start Date End Date Jose Luis Toledo, DO [address] [facility] [place] [address] PCP - General Family Medicine 09/15/14 Blade Mejias MD [address] [facility] [place] [address] Neurosurgery 07/21/16 Carbon Paper Machine Operator Relationship Specialty Start Date End Date Jose Luis Toledo, DO [address] [place] [place] [address] PCP - General Family Medicine 09/15/14 Blade Mejias MD [address] [place] [address] Neurosurgery 07/21/16 Carbon Paper Machine Operator Relationship Specialty Start Date End Date Jose Luis Toledo, DO [address] [place] [place] [address] PCP - General Family Medicine 09/15/14 Blade Mejias MD [address] [place] [address] Neurosurgery 07/21/16 Carbon Paper Machine Operator Relationship Specialty Start Date End Date Jose Luis Toledo, DO [address] [place] [address] PCP - General Family Medicine 09/15/14 Blade Mejias MD [address] [place] [address] Neurosurgery 07/21/16 Carbon Paper Machine Operator Relationship Specialty Start Date End Date Jose Luis Toledo, DO [address] [facility] [place] [address] PCP - General Family Medicine 09/15/14 Blade Mejias MD [address] [place] [address] Neurosurgery 07/21/16 Carbon Paper Machine Operator Relationship Specialty Start Date End Date Jose Luis Toledo, DO [address] [place] [address] PCP - General Family Medicine 09/15/14 Blade Mejias MD [address] [place] [address] Neurosurgery 07/21/16 Carbon Paper Machine Operator Relationship Specialty Start Date End Date Jose Luis Toledo, DO [address] [place] [address] PCP - General Family Medicine 09/15/14 Blade Mejias MD [address] [place] [address] Neurosurgery 07/21/16 Carbon Paper Machine Operator Relationship Specialty Start Date End Date Jose Luis Toledo, DO [address] [place] [address] PCP - General Family Medicine 09/15/14 Blade Mejias MD [address] [place] [address] Neurosurgery 07/21/16 Carbon Paper Machine Operator Relationship Specialty Start Date End Date Jose Luis Toledo, DO [address] [place] [address] PCP - General Family Medicine 09/15/14 Blade Mejias MD [address] [place] [address] Neurosurgery 07/21/16 Carbon Paper Machine Operator Relationship Specialty Start Date End Date Jose Luis Toledo, DO [address] [place] [address] PCP - General Family Medicine 09/15/14 Blade Mejias MD [address] [facility] [place] [address] Neurosurgery 07/21/16 Carbon Paper Machine Operator Relationship Specialty Start Date End Date Jose Luis Toledo, DO [address] [facility] [place] [address] PCP - General Family Medicine 09/15/14 Blade Mejias MD [address] [facility] [address] Neurosurgery 07/21/16 Carbon Paper Machine Operator Relationship Specialty Start Date End Date Jose Luis Toledo, DO [address] [facility] [place] [address] PCP - General Family Medicine 09/15/14 Blade Mejias MD [address] [facility] [address] Neurosurgery 07/21/16 Carbon Paper Machine Operator Relationship Specialty Start Date End Date Jose Luis Toledo DO [address] [place] [address] PCP - General Family Medicine 09/15/14 Blade Mejias MD [address] [facility] [place] [address] Neurosurgery 07/21/16 Carbon Paper Machine Operator Relationship Specialty Start Date End Date Jose Luis Toledo DO [address] [place] [address] PCP - General Family Medicine 09/15/14 Blade Mejias MD [address] [place] [phone] Neurosurgery 07/21/16 Carbon Paper Machine Operator Relationship Specialty Start Date End Date Jose Luis Toledo DO [address] [place] [address] PCP - General Family Medicine 09/15/14 Blade Mejias MD [address] [place] [phone] Neurosurgery 07/21/16 Carbon Paper Machine Operator Relationship Specialty Start Date End Date Jose Luis Toledo DO [address] [place] [address] PCP - General Family Medicine 09/15/14 Blade Mejias MD [address] [place] [phone] Neurosurgery 07/21/16 Carbon Paper Machine Operator Relationship Specialty Start Date End Date Jose Luis Toledo DO [address] [place] [address] PCP - General Family Medicine 09/15/14 Blade Mejias MD [address] [place] [phone] Neurosurgery 07/21/16 Carbon Paper Machine Operator Relationship Specialty Start Date End Date Jose Luis Toledo DO [address] [place] [address] PCP - General Family Medicine 09/15/14 Blade Mejias MD [address] [place] [phone] Neurosurgery 07/21/16 Carbon Paper Machine Operator Relationship Specialty Start Date End Date Jose Luis Toledo DO [address] [facility] [place] [address] PCP - General Family Medicine 09/15/14 Blade Mejias MD [address] [place] [phone] Neurosurgery 07/21/16 Carbon Paper Machine Operator Relationship Specialty Start Date End Date Jose Luis Toledo DO [address] [facility] [place] [address] PCP - General Family Medicine 09/15/14 Blade Mejias MD [address] [place] [place] [phone] Neurosurgery 07/21/16 Carbon Paper Machine Operator Relationship Specialty Start Date End Date Jose Luis Toledo DO [address] [place] [address] PCP - General Family Medicine 09/15/14 Blade Mejias MD [address] [place] [phone] Neurosurgery 07/21/16 [employer] Machine Operator Relationship Specialty Start Date End Date Jose Luis Toledo DO [address] [facility] [place], [place] [phone] PCP - General Family Medicine 09/15/14 Blade Mejias MD [address] [place] [phone] Neurosurgery 07/21/16 [employer] Machine Operator Relationship Specialty Start Date End Date Jose Luis Toledo DO [address] [place] [address] PCP - General Family Medicine 09/15/14 Blade Mejias MD [address] [place] [phone] Neurosurgery 07/21/16 [employer] Machine Operator Relationship Specialty Start Date End Date Jose Luis Toledo DO [address] [place] [address] PCP - General Family Medicine 09/15/14 Blade Mejias MD [address] [facility] [place] [phone] Neurosurgery 07/21/16 [employer] Machine Operator Relationship Specialty Start Date End Date Jose Luis Toledo DO [address] [place] [address] PCP - General Family Medicine 09/15/14 Blade Mejias MD [address] [place] [phone] Neurosurgery 07/21/16 [employer] Machine Operator Relationship Specialty Start Date End Date Jose Luis Toledo DO [address] [place] [address] PCP - General Family Medicine 09/15/14 Blade Mejias MD [address] [place] [phone] Neurosurgery 07/21/16 [employer] Machine Operator Relationship Specialty Start Date End Date Jose Luis Toledo DO [address] [facility] [place] [place] [address] PCP - General Family Medicine 09/15/14 Blade Mejias MD [address] [place] [phone] Neurosurgery 07/21/16 [employer] Machine Operator Relationship Specialty Start Date End Date Jose Luis Toledo DO [address] [facility] [place] [place] [address] PCP - General Family Medicine 09/15/14 Blade Mejias MD [address] [place] [phone] Neurosurgery 07/21/16 [employer] Machine Operator Relationship Specialty Start Date End Date Jose Luis Toledo DO [address] [place] [address] PCP - General Family Medicine 09/15/14 Blade Mejias MD [address] [place] [phone] Neurosurgery 07/21/16 [employer] Machine Operator Relationship Specialty Start Date End Date Jose Luis Toledo DO [address] [facility] [place] [place] [address] PCP - General Family Medicine 09/15/14 Blade Mejias MD [address] [facility] [place] [phone] Neurosurgery 07/21/16 [employer] Machine Operator Relationship Specialty Start Date End Date Jose Luis Toledo DO [address] [facility] [place] [place] [address] PCP - General Family Medicine 09/15/14 Blade Mejias MD [address] [facility] [place] [phone] Neurosurgery 07/21/16 [employer] Machine Operator Relationship Specialty Start Date End Date Jose Luis Toledo DO [address] [facility] [place] [place] [address] PCP - General Family Medicine 09/15/14 Blade Mejias MD [address] [facility] [place] [phone] Neurosurgery 07/21/16 Ordered Prescriptions (unrec ognized section and content) Scheduled Active and Recently Administ ered Medications (unrecognized section and content) Continuous Medication Order 01/25/2022 01/26/2022 01/27/2022 lactated ringers infusion IntraVENous, at 50 mL/hr, CONTINUOUS, Starting on Thu01/27/22 at 1115, Upon admission to sameday - please start iv if patient does not have iv access. Use 500ml NS for patients on dialysis., Pre-op (day of surgery) 1114 (New Bag - Prov ider: Mary Plascencia RN) lactated ringers infusion IntraVENous, at 50 mL/hr, CONTINUOUS, Starting on Thu01/27/22 at 1415, PACU only 1415 (Due) PRN Medication Order 01/25/2022 01/26/2022 01/27/2022 0.9 % sodium chloride bolus 500 mL (5.86 mL/kg), IntraVENous, at 1,000 mL/hr, Administer over 0.5 Hours, PRN, Anti-nausea, Starting on Thu01/27/22 at 1357, PACU only 0.9 % sodium chloride infusion IntraVENous, at 5-250 mL/hr, PRN, if patient receiving piggyback infusions and maintenance fluids are not ordered OR KVO fluids to protect IV site / prevent frequent line interruptions/ long duration, Starting on Thu01/27/22 at 1054, For piggyback infusion, administer at same rate as piggyback for a total of 25 mL. Enter 25 mL into dose field and piggyback rate into rate field of order. If piggyback is infusing at a rate less than 100 mL/hr, enter 25 mL into dose field and 100 mL/hr into rate field of order. For KVO fluids, enter rate of 20 mL/hr or less into rate field of order., Pre-op (day of surgery) ALPRAZolam (NIRAVAM) dissolvable tablet 0.25 mg 0.25 mg, Oral, PRN, Starting on Thu01/27/22 at 1054, Until Discontinued, Anxiety, Pre-op (day of surgery) diphenhydrAMINE (BENADRYL) injection 12.5 mg 12.5 mg, IntraVENous, ONCE PRN, 1 dose, Starting on Thu01/27/22 at 1357, Until Thu01/28/22 at 1357, Itching, for use Sameday and, PACU only fentaNYL (SUBLIMAZE) injection 25 mcg 25 mcg, IntraVENous, EVERY 5 MIN PRN, 3 doses, Starting on Thu01/27/22 at 1357, Until Discontinued, Pain Moderate (4-6), Phase I and Phase II- Initial therapy for moderate pain (4-6). Restricted to a 90 minute time frame starting when the patient can verbally state their pain score. If after 2 doses the pain score does not decrease by more than one point, then call the provider. If oral meds are utilized, do not return to initial therapy medications. SDS and, PACU only fentaNYL (SUBLIMAZE) injection 50 mcg 50 mcg, IntraVENous, EVERY 5 MIN PRN, 3 doses, Starting on Thu01/27/22 at 1357, Until Discontinued, Pain Severe (7-10), Phase I or Phase II- Initial therapy for severe pain (7-10). Restricted to a 90 minute time frame starting when the patient can verbally state their pain score. If after 2 doses the pain score does not decrease by more than one point, then call the provider. If oral meds are utilized, do not return to initial therapy medications. SDS and, PACU only 1430 (Given - Provid er: Shama Bryan RN) hydrALAZINE (APRESOLINE) injection 5 mg(Linked Group 1) 5 mg, IntraVENous, EVERY 10 MIN PRN, 2 doses, Starting on Thu01/27/22 at 1357, Until Discontinued, High Blood Pressure, PRN for SBP > 160 for 2 consecutive measurements, and if one of the following conditions is met: 1) If IV labetolol is ineffective. 2) If HR is under 60. 3) If patient has heart block, COPD or asthma. If both labetalol and hydralazine ineffective, notify anesthesiologist. for use Sameday and, PACU only labetalol (NORMODYNE;TRANDATE) injection 5 mg(Linked Group 1) 5 mg, IntraVENous, EVERY 10 MIN PRN, 2 doses, Starting on Thu01/27/22 at 1357, Until Discontinued, High Blood Pressure, PRN for SBP >160 for 2 consecutive measurements, if HR is 60 or greater. If beta ilya is contraindicated (HR less than 60, heart block, COPD or asthma) use hydralazine IV order. for use Sameday and, PACU only lidocaine 1 % injection 1 mL 1 mL, IntraDERmal, ONCE PRN, 1 dose, Starting on Thu01/27/22 at 1054, Until Thu01/28/22 at 1054, IV start, Pre-op (day of surgery) LORazepam (ATIVAN) injection 0.5 mg (COMPLETED) 0.5 mg, IntraVENous, ONCE PRN, 1 dose, Starting on Thu01/27/22 at 1357, Until Thu01/28/22 at 1357, for anxiety or muscle spasm., PACU only 1431 (Given - Provid er: Shama Bryan RN) meperidine (DEMEROL) injection 12.5 mg 12.5 mg, IntraVENous, EVERY 5 MIN PRN, 4 doses, Starting on Thu01/27/22 at 1357, Until Discontinued, Shivering, , May give every 5 minutes to max of 50mg. for use Sameday and, PACU only ondansetron (ZOFRAN) injection 4 mg (COMPLETED) 4 mg, IntraVENous, ONCE PRN, 1 dose, Starting on Thu01/27/22 at 1357, Until Thu01/28/22 at 1357, Nausea, Initial antiemetic therapy. For use sameday and, PACU only 1607 (Given - Provid er: Shama Bryan RN) oxyCODONE (ROXICODONE) immediate release tablet 10 mg (COMPLETED) 10 mg, Oral, PRN, 1 dose, Starting on Thu01/27/22 at 1357, Until Thu01/27/22 at 2359, Pain Severe (7-10), PHASE II, PACU only 1522 (Given - Provid er: Shama Bryan RN) sodium chloride flush 0.9 % injection 5-40 mL 5-40 mL, IntraVENous, PRN, Starting on Thu01/27/22 at 1054, Until Discontinued, Line Care, After every IV line use, For Line Patency: Peripheral IV = 5 mL; Midline or Central Line = 10 mL/lumen. If following IV push medication, administer flush at same rate as the IV push. Flush volume is determined by type of infusion therapy being given. For non-viscous solutions use: Peripheral IV = 5 mL Midline or Central Line = 10 mL/lumen For viscous solutions (i.e. blood components, parenteral nutrition, contrast media, or after obtaining blood sample) use: Peripheral IV = 10 mL Midline or Central Line = 20 mL/lumen, Pre-op (day of surgery) sodium chloride flush 0.9 % injection 5-40 mL 5-40 mL, IntraVENous, PRN, Starting on Thu01/27/22 at 1357, Until Discontinued, Line Care, After every IV line use, For Line Patency: Peripheral IV = 5 mL; Midline or Central Line = 10 mL/lumen. If following IV push medication, administer flush at same rate as the IV push. Flush volume is determined by type of infusion therapy being given. For non-viscous solutions use: Peripheral IV = 5 mL Midline or Central Line = 10 mL/lumen For viscous solutions (i.e. blood components, parenteral nutrition, contrast media, or after obtaining blood sample) use: Peripheral IV = 10 mL Midline or Central Line = 20 mL/lumen, PACU only Linked Groups Order Group 1: labetalol (NORMODYNE;TRANDATE) injection 5 mgJump to med 5 mg, IntraVENous, EVERY 10 MIN PRN, 2 doses, Starting on Thu01/27/22 at 1357, Until Discontinued, High Blood Pressure
PRN for SBP >160 for 2 consecutive measurements, if HR is 60 or greater. If beta ilya is contraindicated (HR less than 60, heart block, COPD or asthma) use hydralazine IV order. for use Sameday and
PACU only Or hydrALAZINE (APRESOLINE) injection 5 mgJump to med 5 mg, IntraVENous, EVERY 10 MIN PRN, 2 doses, Starting on Thu01/27/22 at 1357, Until Discontinued, High Blood Pressure
PRN for SBP > 160 for 2 consecutive measurements, and if one of the following conditions is met: 1) If IV labetolol is ineffective. 2) If HR is under 60. 3) If patient has heart block, COPD or asthma. If both labetalol and hydralazine ineffective, notify anesthesiologist. for use Same and
PACU only FOR RECORDS PERTAINING TO PATIENTS WHO ARE OR HAVE BEEN ENROLLED IN A CHEMICAL DEPENDENCY/SUBSTANCEABUSE PROGRAM, SOME INFORMATION MAY BE OMITTED. This clinical summary was aggregated from multiple sources. Caution should be exercised in using it in the provision of clinical care. This summary normalizes information from multiple sources, and as a consequence, information in this document may materially change the coding, format and clinical context of patient data. In addition, data may be omitted in some cases. CLINICAL DECISIONS SHOULD BE BASED ON THE PRIMARY CLINICAL RECORDS. [employer] provides no warranty or guarantee of the accuracy or completeness of information in this document.
== END | disposition home or self-care (01) ==
LOC: LABSPEC 12:17
PROVIDERS: PCP Student in an Organized Health Care Education/Training Program; Referring Provider Nurse Practitioner Women's Health; Visit Provider Nurse Practitioner Women's Health
DX: N89.8 Other specified noninflammatory disorders of vagina (principal)
CPT/HCPCS: 87070; 87205

== ENCOUNTER → 2023-08-31 | Outpatient (CLI) | payer BC, MEDICAID, SELFPAY ==
[2023-08-31 10:29] LABS: Hematocrit 44.3 % (37-47); Hemoglobin 13.9 g/dL (12.0-15.0); Mean Corp Hgb Conc 31.4 g/dL (32-36); Mean Corpuscular Hgb 29.1 pg (27.0-32.0); Mean Corpuscular Volume 92.9 fL (81-99); Mean Platelet Vol. 10.3 fl (6.2-12.0); Platelet Count 260 K/mm3 (150-450); RBC Distribution Width CV 12.7 % (11.6-14.6); RBC Distribution Width SD 43.7 fl (35.1-43.9); Red Blood Count 4.77 M/mm3 (4.2-5.4); White Blood Count 12.3 K/mm3 (4.4-11.0)
[2023-08-31 11:23] LABS: ALB/GLOB Ratio 0.9 RATIO (0.9-2.4); AST(SGOT) 19 U/L (15-37); Alanine Aminotransfer ALT/SGPT 20 U/L (13-56); Albumin, Serum 3.5 g/dL (3.2-5.0); Alkaline Phosphatase 72 U/L (45-117); Anion Gap 5 (5-15); BUN 20 mg/dL (7-18); BUN/Creat Ratio 28.2 RATIO (10-20); Calcium,Total 9.1 mg/dL (8.5-10.1); Chloride 107 mmol/L (98-107); Creatinine, Serum 0.71 mg/dL (0.55-1.02); EST Glomerular Filtration Rate 95 mL/min (>60); Est Glom Filt Rate - Afr Amer 115 mL/min (>60); Globulin 3.8 g/dL (2.2-4.2); Glucose 87 mg/dL (74-106); Magnesium 2.2 mg/dL (1.6-2.6); Potassium 3.9 mmol/L (3.5-5.1); Protein, Total 7.3 g/dL (6.4-8.2); Sodium Level 140 mmol/L (136-145)
== END | disposition home or self-care (01) ==
PROVIDERS: PCP Student in an Organized Health Care Education/Training Program; Referring Provider Psychiatry & Neurology Neurology; Visit Provider Psychiatry & Neurology Neurology
DX: H02.409 Unspecified ptosis of unspecified eyelid (principal); G43.109 Migraine with aura, not intractable, without status migrainosus
CPT/HCPCS: 36415; 80053; 83519; 83735; 85027

== ENCOUNTER 2023-11-25 22:25 | Emergency (ER) | payer BC, MEDICAID, SELFPAY ==
[2023-11-25 22:26] VITALS: BP 157/82; PULSE 106; RESP 25; TEMP 36.3; O2SAT 100; BMI 39.6
--- NOTE | 2023-11-25 22:52 | EDS_ITS ---
HPI History of Present Illness Chief Complaint: Anxiety Detail of Chief Complaint: Anxiety Informant: patient and spouse/S.O. Narrative Narrative: Patient presents to the emergency department with complaint of panic attack. Patient states she just cannot get it under control. Patient states she has had some increased stressors today because her of 30 years asked her for divorce. 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 She sometimes gets this way when she is having a panic attack. She did take 1 Ativan this morning 0.5 mg but did not take anymore this evening. Patient does have history of a brain aneurysm that is being evaluated every 3 years and she had an evaluation about 2 months ago with a CTA and it has not grown. Patient denies any significant headache and she does not think that that has anything to do with her condition today. Patient just feels anxious and jittery and somewhat short of breath. Patient denies feeling suicidal or homicidal. [facility] Medical History Arthritis Asthma Back pain Brain aneurysm Chest pain complex migraine CPAP (continuous positive airway pressure) dependence Empty sella Family history of brain aneurysm Fatigue Fibromyalgia GERD (gastroesophageal reflux disease) High cholesterol High triglycerides History of breast lump History of chronic bronchitis History of fatty infiltration of liver History of gallstones History of IBS History of kidney stones History of loss of consciousness History of PCOS History of PSVT (paroxysmal supraventricular tachycardia) History of UTI Hormone deficiency Hx of echocardiogram Hx of protein S deficiency Hypoglycemia Hypothyroidism IBS (irritable bowel syndrome) Injury of head and neck Intervertebral disc degeneration Limb weakness Mid back pain on left side Migraines Non-smoker CADENCE (obstructive sleep apnea) Protein S deficiency Restless legs Seasonal allergies Stomach ulcer Tachycardia Thyroid disease Thyroid nodule Ulcer Urinary frequency Home Medications ?Medication ?Instructions ?Recorded ?Last Taken ?Type lorazepam 0.5 mg tablet 0.5 mg PO DAILY PRN PRN Anxiety 11/23/19 09/10/20 21:00 History levothyroxine 88 mcg capsule 88 mcg PO MOTUWETHFRSA 08/23/20 07/30/21 History tizanidine 2 mg tablet 2 mg PO QHS PRN MUSCLE SPASMS 03/15/22 Unknown History betamethasone valerate 0.1 % 1 applic topical BID PRN itching 05/26/23 Unknown Rx topical ointment #45 grams vitamin B complex 1 tab PO DAILY 05/26/23 Unknown History Allergy/AdvReac Type Severity Reaction Status Date / Time Penicillins Allergy Severe Anaphylaxis Verified 11/25/23 22:31 adhesive Allergy Rash Verified 11/25/23 22:31 Family History Grandmother Hypertension Brother Diabetes Grandfather CVA (cerebral vascular accident) Alcoholism Bleeding disorder DVT (deep venous thrombosis) Father Hypertension Anxiety Arthritis Bowel disease Depression High cholesterol Thyroid disorder Mother Supraventricular tachycardia Anesthesia complication Anxiety Angina pectoris Arthritis Rheumatoid arthritis Bowel disease Breast cancer Depression Myocardial infarction Heart disease High cholesterol Hypertension Kidney disease Thyroid disorder Surgical History H/O bilateral salpingectomy H/O ovarian cystectomy H/O ovarian cystectomy History of appendectomy History of cholecystectomy History of endometrial ablation History of extraction of renal calculus History of total vaginal hysterectomy (TVH) Hx of dilation and curettage S/P oophorectomy [place] teeth extracted Social History Smoking Status: Never smoker alcohol intake: current alcohol intake frequency: holidays/special occasions only details: social substance use type: does not use diet: other caffeine: Yes what type of physical activity do you participate in: walking and weight training frequency: 3-4 times per week seatbelt use: always do you feel safe at home: Yes ROS ROS ED Review of Systems ROS Unobtainable: other Constitutional Constitutional ED: Reports lethargy; Denies chills, fever(s), sweats or weight loss Eyes Eyes: Denies blurry vision, change in vision or diplopia ENT ENT ED: Denies rhinorrhea or sore throat Cardiovascular Cardiovascular: Reports racing heartbeat; Denies chest pain or orthopnea Respiratory/Chest Respiratory/Chest: Reports dyspnea; Denies cough, dyspnea on exertion, orthopnea or sputum Gastrointestinal Gastrointestinal: Denies abdominal pain, diarrhea, nausea or vomiting Genitourinary Genitourinary ED: Denies dysuria, hematuria or urinary frequency Musculoskeletal Musculoskeletal: Denies arthralgias, back pain, myalgias or neck pain Integumentary Denies abscess, Abrasions or rash Neurologic Neurologic: Denies headache(s) or weakness Psychiatric Psychiatric: Reports anxiety; Denies depression, suicidal ideation or suicidal thoughts Endocrine Endocrinology: Denies polydipsia, polyphagia or polyuria Hematologic/Lymphatic Hematologic/Lymphatic: Denies easy bleeding, easy bruising or lymphadenopathy Allergic/Immunologic Allergic/Immunologic ED: Denies mouth swelling, tongue swelling or urticaria EXAM Physical Exam Const Vital Signs: 11/25/23 22:26 Temperature 97.3 F L Temperature Source Temporal Pulse Rate 106 H Respiratory Rate 25 H Blood Pressure 157/82 H Blood Pressure Mean 107 Pulse Ox 100 Oxygen Delivery Method Room Air Positive well nourished and well developed General Appearance ED: well developed and NAD HEENT Reports TM's clear and moist mucous membranes normocephalic and atraumatic; Negative for trauma or tenderness Tympanic Membrane ED: Yes TM's clear Eyes PERRL and EOMs intact bilaterally General Eye ED: Negative for pale conjunctiva or scleral icterus Neck no lymphadenopathy, supple and no JVD General: Negative for tenderness Chest Wall inspection of chest normal and palpation of chest normal Chest: Negative for tenderness Resp normal respiratory effort and clear to auscultation bilaterally Effort and Inspection: Negative for respiratory distress or pain with movement Auscultation: Negative for rhonchi, wheezes or diminished lung sounds Cardio regular rate, regular rhythm, S1 normal heart sound, S2 normal heart sound and no murmurs Peripheral Pulses: pulses 2+ throughout GI normal to inspection, nondistended, normoactive bowel sounds, soft to palpation, non-tender, non-distended and no masses Back/Spine no CVA tenderness and no thoracic nor lumbar tenderness Extremity normal to inspection General Extremety ED: Negative for edema General Extremity: Negative for edema Neuro oriented x3, CN's II-XII intact bilaterally, no sensory deficits noted and gait normal Sensorium / Orientation: awake, alert, oriented to person, oriented to place and oriented to time Motor Exam: strength 5/5 throughout and strength abnormal Psych mental status grossly normal Skin no rashes or lesions noted and no wounds MDM MDM MDM Narrative Medical decision making narrative: Patient presents with a panic attack that she cannot get under control. Patient was asked for divorce from her today. Clinically she looks well. I did give her 1 dose of Ativan 1 mg IM. After treatment she stating that she feels markedly improved. Patient not suicidal or homicidal. Asking to be discharged home. Will discharge to home and advised to follow-up with her primary care physician within next 3 to 5 days. She has as needed Ativan at home. Discharge Plan Triage Chief Complaint: Anxiety ED Provider: Minh Stallings Dx/Rx/DC Orders Clinical Impression: Panic attack Instructions: ED Anxiety Reaction Prescriptions: No Action levothyroxine 88 mcg capsule 88 mcg PO MOTUWETHFRSA Rx Instructions: skip thursday tizanidine 2 mg tablet 2 mg PO QHS PRN (Reason: MUSCLE SPASMS) vitamin B complex Tablet 1 tab PO DAILY betamethasone valerate 0.1 % ointment 1 applic topical BID PRN (Reason: itching) Qty: 45 1RF lorazepam 0.5 MG tablet 0.5 mg PO DAILY PRN PRN (Reason: Anxiety) Primary Care Provider: Jose Luis Toledo Referrals: Jose Luis Toledo DO [Primary Care Provider] - 3-5 Days Print Language: Tamazight Disposition Disposition: Home, Self Care
[2023-11-25] MEDS: LORazepam 2 MG/ML Syringe 1 MG IM (22:57)
[2023-11-25 23:16] VITALS: BP 142/81; PULSE 84; RESP 18; TEMP 36.3; O2SAT 100
== END 2023-11-25 23:20 | disposition home or self-care (01) ==
PROVIDERS: Emergency Provider Emergency Medicine; PCP Student in an Organized Health Care Education/Training Program; Visit Provider Emergency Medicine
DX: F41.0 Panic disorder [episodic paroxysmal anxiety] (principal); E78.00 Pure hypercholesterolemia, unspecified; Z90.49 Acquired absence of other specified parts of digestive tract; G47.33 Obstructive sleep apnea (adult) (pediatric)
CPT/HCPCS: 99282

== ENCOUNTER → 2023-12-10 | Outpatient (CLI) | payer BC, MEDICAID, SELFPAY ==
--- NOTE | 2023-12-10 14:55 | US_ITS ---
INDICATION: pelvic pain EXAMINATION: Ultrasound US Pelvis Non OB Complete With Transvaginal Imaging TECHNIQUE: Transabdominal and transvaginal pelvic ultrasound was performed. Grayscale, spectral waveform, and color flow Doppler evaluation of the adnexa. COMPARISON: Prior study dated: 06/24/2022 FINDINGS: UTERUS: Not visualized, status post hysterectomy. RIGHT OVARY: Not visualized, status post right oophorectomy. LEFT OVARY: Not visualized, status post left oophorectomy. . FREE FLUID: None. US/Pelvic w/ Transvaginal IMPRESSION: Status post hysterectomy and bilateral oophorectomy. No pelvic mass seen. Electronically Signed: Say Davis MD at 9:32 EDT ,
== END | disposition home or self-care (01) ==
LOC: US 14:43
PROVIDERS: PCP Student in an Organized Health Care Education/Training Program; Referring Provider Obstetrics & Gynecology; Visit Provider Obstetrics & Gynecology
DX: R10.31 Right lower quadrant pain (principal)
CPT/HCPCS: 76830; 76856

== ENCOUNTER → 2024-02-08 | Outpatient (CLI) | payer BC, MEDICAID, SELFPAY ==
--- NOTE | 2024-02-08 08:09 | CT_ITS ---
STUDY: CT BRAIN WITH AND WITHOUT CONTRAST REASON FOR EXAM: Female, 44 years old. follow-up prominent RED infundibulum vs aneurysm RADIATION DOSAGE (If Supplied By Facility): CTDIvol = ( 27.29 ) mGy, DLP = ( 1166.03 ) mGycm TECHNIQUE: Transaxial CT imaging of the brain was performed pre and post contrast administration. The examination was performed with intravenous administration of IV 100mL Isovue-370. Individualized dose optimization techniques were used for this CT. COMPARISON: None. FINDINGS: Normal soft tissue structures. Normal calvarium. Normal size ventricles and extra-axial spaces for the patient''s age. Normal white matter tracts of the cerebral hemispheres. Normal basal ganglia and thalami. Normal brainstem. Normal cerebellum. 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 A definite aneurysm is not visualized. There is no intracranial hemorrhage. There are no findings of an acute ischemic infarction. Normal visualized paranasal sinuses. 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 Electronically Signed: Jimenez Walter MD at 9:01 EDT ,
== END | disposition home or self-care (01) ==
LOC: CT 08:07
PROVIDERS: PCP Student in an Organized Health Care Education/Training Program; Referring Provider Psychiatry & Neurology Neurology; Visit Provider Psychiatry & Neurology Neurology
DX: Q28.3 Other malformations of cerebral vessels (principal)
CPT/HCPCS: 70496; Q9967

== ENCOUNTER → 2024-07-25 | Outpatient (CLI) | payer BC, MEDICAID, SELFPAY ==
--- NOTE | 2024-07-25 08:40 | BI_ITS ---
EXAM: SCRN MAMM (CAD)W/KEENAN BILAT DATE: 07/25/2024 CLINICAL HISTORY: F, Age 44 y/o , SCREENING BREAST CANCER RISK ASSESSMENT: Has not been calculated. TECHNIQUE: Bilateral screening digital breast tomosynthesis with 2D and 3D images. Computer aided detection. COMPARISON: Prior exam(s) dated 07/03/2022 and 06/11/2021. FINDINGS: TISSUE DENSITY: The breast tissue is composed of scattered area of fibroglandular density. Bilateral Breast Mammographic Findings: There are no suspicious masses, suspicious cluster of microcalcifications, architectural distortion or secondary signs of malignancy identified in either breast. BI/SCRN MAMM (CAD)W/KEENAN BILAT IMPRESSION: Right Breast: BIRADS 1 NEGATIVE. Left Breast: BIRADS 1 NEGATIVE. OVERALL FINAL ASSESSMENT: BIRADS 1 NEGATIVE RECOMMENDATION: Routine annual follow-up in 1 Year A letter with findings and recommendations will be mailed to the patient. Reading Location: [id number]
== END | disposition home or self-care (01) ==
LOC: OPBI 08:37
PROVIDERS: PCP Student in an Organized Health Care Education/Training Program; Referring Provider Student in an Organized Health Care Education/Training Program; Visit Provider Student in an Organized Health Care Education/Training Program
DX: Z12.31 Encounter for screening mammogram for malignant neoplasm of breast (principal)
CPT/HCPCS: 77063; 77067

== ENCOUNTER → 2024-12-22 | Outpatient (CLI) | payer BC, MEDICAID, SELFPAY ==
[2024-12-22 18:20] LABS: HIV Nonreactive (Nonreactive); Hepatitis B Surface Antigen Nonreactive (Nonreactive); Hepatitis C Antibody Nonreactive (Nonreactive); Syphilis Antibodies Nonreactive (Nonreactive)
[2024-12-27 20:08] LABS: Chlamydia By Nucleic Acid AMP Negative (Negative); Gonococcus By Nucleic Acid AMP Negative (Negative)
== END | disposition home or self-care (01) ==
LOC: BWCLAB 13:45
PROVIDERS: PCP Student in an Organized Health Care Education/Training Program; Referring Provider Nurse Practitioner Family; Visit Provider Nurse Practitioner Family
DX: N94.89 Other specified conditions associated with female genital organs and menstrual cycle (principal); Z11.3 Encounter for screening for infections with a predominantly sexual mode of transmission
CPT/HCPCS: 36415; 86695; 86696; 86703; 86780; 86803; 87086; 87340; 87491; 87591

== ENCOUNTER → 2025-01-05 | Outpatient (CLI) | payer BC, MEDICAID, SELFPAY ==
[2025-01-10 18:08] LABS: ACHR Recep AB, Blocking 20 % (0-25)
[2025-01-11 23:07] LABS: ACHR AB Modulating 0 % (0-45)
== END | disposition home or self-care (01) ==
LOC: MTLAB 09:41
PROVIDERS: PCP Student in an Organized Health Care Education/Training Program; Referring Provider Psychiatry & Neurology Neurology; Visit Provider Psychiatry & Neurology Neurology
DX: H02.409 Unspecified ptosis of unspecified eyelid (principal)
CPT/HCPCS: 36415; 83519; 84238

== ENCOUNTER → 2025-01-25 | Outpatient (CLI) | payer BC, MEDICAID, SELFPAY ==
--- NOTE | 2025-01-25 08:25 | CT_ITS ---
PROCEDURE: CHEST WITH CONTRAST 01/25/2025 REASON FOR EXAM: OCULAR MYASTHENIA GRAVIS; EVALUATE FOR THYMOMA TECHNIQUE: Procedure Code: CTCHW Modality: CT Procedure: CHEST WITH CONTRAST Coronal and Sagittal reconstruction series were provided. CONTRAST: Isovue 370 VOLUME: 100 mL One or more dose reduction techniques were used (e.g., Automated exposure control, adjustment of the mA and/or kV according to patient size, use of iterative reconstruction technique). RADIATION DOSE SUMMARY: CTDlvol: 14 mGy DLP: 522 mGycm COMPARISON: 10/26/2020 FINDINGS: Hardware: None Lymph nodes: None Mediastinum: There is no thymic tissue identified. Heart and Vasculature: Normal heart size. No pericardial effusion. Mild coronary arterial calcification. Lungs and Airways: Lungs are clear. Airways unremarkable. Pleura: Unremarkable. Upper Abdomen: Cholecystectomy changes. Upper abdomen is otherwise unremarkable. Bones: Degenerative changes. CT/Chest WITH Contrast IMPRESSION: No evidence of residual thymic tissue. No acute intrathoracic process. Mild coronary arterial calcification Reading Location: [place] [address]
--- NOTE | 2025-01-25 08:25 | CT_ITS ---
PROCEDURE: CHEST WITH CONTRAST 01/25/2025 REASON FOR EXAM: OCULAR MYASTHENIA GRAVIS; EVALUATE FOR THYMOMA TECHNIQUE: Procedure Code: CTCHW Modality: CT Procedure: CHEST WITH CONTRAST Coronal and Sagittal reconstruction series were provided. CONTRAST: Isovue 370 VOLUME: 100 mL One or more dose reduction techniques were used (e.g., Automated exposure control, adjustment of the mA and/or kV according to patient size, use of iterative reconstruction technique). RADIATION DOSE SUMMARY: CTDlvol: 14 mGy DLP: 522 mGycm COMPARISON: 10/26/2020 FINDINGS: Hardware: None Lymph nodes: None Mediastinum: There is no thymic tissue identified. Heart and Vasculature: Normal heart size. No pericardial effusion. Mild coronary arterial calcification. Lungs and Airways: Lungs are clear. Airways unremarkable. Pleura: Unremarkable. Upper Abdomen: Cholecystectomy changes. Upper abdomen is otherwise unremarkable. Bones: Degenerative changes. CT/Chest WITH Contrast IMPRESSION: No evidence of residual thymic tissue. No acute intrathoracic process. Mild coronary arterial calcification Reading Location: [place] [id number]
--- OUTSIDE RECORDS SUMMARY | 2025-01-26 22:21 | XMS RPT_ITS | CCD ---
Author Organization [facility] Care Team Providers Care Patient Educator Name Role Phone PAPI RODGERS Unavailable Unavailable REFERRED, SELF Unavailable Unavailable JOSE LUIS TOLEDO Unavailable Unavailable BILL MARIA Unavailable Unavailable BILL MARIA Unavailable Unavailable JOSE LUIS TOLEDO Unavailable Unavailable Dr. Jose Luis Toledo Primary Care Provider Dr. Jose Luis Toledo Referring Provider Norm LYONS, PA Xi Bailey Attending Provider Cb PAROLE DIRECTOR, PAROLE DIRECTOR-C She Attending Provider Dr. Zoë Mckinley Attending Provider Dr. Juvencio Oneal Attending Provider Dr. Zoë Mckinley Other Provider Jose Luis Toledo DO Primary Care Provider Blade Mejias MD Unavailable Dr. Juvencio Oneal Referring Provider Prosper PAROLE DIRECTOR, PAROLE DIRECTOR-C Anat Attending Provider Dr. Jose Luis Toledo Primary Care Provider Dr. Jose Luis Toledo Referring Provider Dr. Jose Luis Toledo Primary Care Provider Dr. Jose Luis Toledo Referring Provider Cb PAROLE DIRECTOR, PAROLE DIRECTOR-C She Attending Provider Jose Luis Toledo DO Primary Care Provider Blade Mejias MD Unavailable Dr. Jsoe Luis Toledo Primary Care Provider Dr. Jose Luis Toledo Referring Provider Dr. Juvencio Oneal Attending Provider Jose Luis Toledo DO Primary Care Provider Jose Luis Toledo Primary Care Provider Dr. Jose Luis Toledo Primary Care Provider Dr. Jose Luis Toledo Referring Provider Cb PAROLE DIRECTOR, PAROLE DIRECTOR-C She Attending Provider [phone] Jose Luis Toledo Primary Care Unavailable Deon Camacho Attending Unavailable PROVIDER, UNKNOWN Referring Unavailable No, PCP Primary Care Unavailable PROVIDER, UNKNOWN Referring Unavailable Deon Camacho Attending Unavailable Dr. Jose Luis Toledo Primary Care Provider Dr. Jose Luis Toledo Referring Provider Dr. Juvecnio Oneal Attending Provider Cb PAROLE DIRECTOR, CHARLY-Tan Nowak Attending Provider [phone] Dr. Zoë Mckinley Attending Provider [phone] Jose Luis Toledo DO Primary Care Provider Blade Mejias MD Unavailable Dr. Jose Luis Toledo Primary Care Provider Dr. Jose Luis Toledo Referring Provider Dr. Jose Luis Toledo Primary Care Provider Dr. Jose Luis Toledo Referring Provider Dr. Jose Luis Toledo Primary Care Provider Dr. Jose Luis Toledo Referring Provider Dr. Zoë Mckinley Attending Provider VICKY CROWLEY Attending Unavailable JOSE LUIS TOLEDO Referring Unavailable JOSE LUIS TOLEDO Primary Care Unavailable BRANDI RASMUSSEN Referring Unavailable JOSE LUIS TOLEDO Primary Care Unavailable Dr. Jose Luis Toledo Primary Care Provider Dr. Jose Luis Toledo Referring Provider Cb PAROLE DIRECTOR, CHARLY-Tan Nowak Attending Provider [phone] Dr. Jose Luis Toledo Primary Care Provider Dr. Jose Luis Toledo Referring Provider Cb PARKS, CHARLY-C She Attending Provider Dr. Juvencio Oneal Attending Provider Jose Luis Toledo DO Primary Care Provider XI BARAHONA Admitting Unavailable XI BARAHONA Attending Unavailable JOSE LUIS TOLEDO Primary Care Unavailable JOSE LUIS TOLEDO Primary Care Unavailable NELIDA IRVING Attending Unavailable JOSE LUIS TOLEDO Primary Care Unavailable NELIDA IRVING Attending Unavailable JOSE LUIS TOLEDO Primary Care Unavailable [employer] NETWORKING SPECIALIST.PRINTING EQUIPMENT MECHANIC APPRENTICE, Brandi Schneider Unavailable Mark NETWORKING SPECIALIST.Dee TAMEZ Unavailable Dr. Jose Luis Toledo DO Primary Care Provider Dr. Jose Luis Toledo DO Attending Provider Dr. Jose Luis Toledo DO Referring Provider [employer] NETWORKING SPECIALIST.Brandi TAMEZ Unavailable Dr. Jose Luis Toledo DO Primary Care Provider [phone] Dr. Jose Luis Toledo DO Referring Provider Xi Bang Attending Provider Beth Elder Attending Provider Beth Elder Referring Provider Dr. Juvencio Oneal MD Attending Provider Kathleen NETWORKING SPECIALIST.Barbara TAMEZ Unavailable JOSE LUIS TOLEDO Primary Care Unavailable JOSE LUIS TOLEDO Referring Unavailable TOLEDO, JOSE LUIS L Primary Care Unavailable MARK, DEE Attending Unavailable TOLEDO, JOSE LUIS L Primary Care Unavailable TOLEDO, JOSE LUIS L Referring Unavailable TOLEDO, JOSE LUIS L Primary Care Unavailable TOLEDO, JOSE LUIS L Referring Unavailable TOLEDO, JOSE LUIS L Primary Care Unavailable MARK, DEE Referring Unavailable TOLEDO, JOSE LUIS L Primary Care Unavailable MARK, DEE Attending Unavailable TOLEDO, JOSE LUIS L Primary Care Unavailable MARK, DEE Referring Unavailable TOLEDO, JOSE LUIS L Primary Care Unavailable TOLEDO, JOSE LUIS L Referring Unavailable SELF Referring Unavailable BRANDI QUINTEROS Attending Unavailabl e TOLEDO, JOSE LUIS L Primary Care Unavailable TOLEDO, JOSE LUIS L Primary Care Unavailable TOLEDO, JOSE LUIS L Attending Unavailable TOLEDO, JOSE LUIS L Primary Care Unavailable TOLEDO, JOSE LUIS L Attending Unavailable TOLEDO, JOSE LUIS L Primary Care Unavailable TOLEDO, JOSE LUIS L Referring Unavailable TOLEDO, JOSE LUIS L Primary Care Unavailable TOLEDO, JOSE LUIS L Referring Unavailable BRANDI QUINTEROS Attending Unavailabl e TOLEDO, JOSE LUIS L Primary Care Unavailable TOLEDO, JOSE LUIS L Primary Care Unavailable TOLEDO, JOSE LUIS L Attending Unavailable TOLEDO, JOSE LUIS L Primary Care Unavailable Toledo, Jose Luis Primary Care Unavailable Toledo, Jose Luis Attending Unavailable Toledo, Jose Luis Referring Unavailable Juvencio Oneal Attending Unavailable JunurJuvencio Referring Unavailable Toledo, Jose Luis Primary Care Unavailable Junur Juvencio Referring Unavailable Toledo, Jose Luis Primary Care Unavailable Juvencio Oneal Attending Unavailable Xi Zheng Attending Unavailable Toledo, Jose Luis Referring Unavailable Toledo, Jose Luis Primary Care Unavailable Beth Valenzuela Attending Unavailable Toledo, Jose Luis Referring Unavailable Toledo, Jose Luis Primary Care Unavailable Toledo, Jose Luis Referring Unavailable Toledo, Jose Luis Primary Care Unavailable Juvencio Oneal Attending Unavailable Baddour, Juvencio Referring Unavailable Toledo, Jose Luis Primary Care Unavailable Juvencio Oneal Attending Unavailable Beth Valenzuela Referring Unavailable Toledo, Jose Luis Primary Care Unavailable Beth Valenzuela Attending Unavailable Allergies Allergy Classification Reported Allergen(s) Allergy Type Date of Onset Reaction(s) Facility Menthol (2 sources) Menthol Drug Allergy 08-08-19 23 Rash [facility] metFORMIN (2 sources) metFORMIN Drug Allergy 01-24-20 17 GI Upset [facility] Work Phone: NSAIDs (2 sources) Naproxen Drug Allergy 04-28-19 08 Vomiting [facility] Work Phone: Opioid Agonists (2 sources) Morphine Drug Allergy 03-11-20 Other: See Comments [facility] Penicillins (antibiotic) (2 sources) Penicillins Drug Allergy 04-28-19 08 Swelling [facility] Work Phone: Prochlorperazine (2 sources) Prochlorperazine Drug Allergy 03-11-20 23 Mental Status Change [facility] (20 sources) Penicillins; Translations: [PENICILLINS] Propensity to adverse reactions to drug (disorder) 04-28-19 08 Swelling, Anaphylaxis [facility] Comment on above: Can not breath (20 sources) Adhesive agent; Translations: [ADHESIVE] Allergy to substance 12-27-19 Rash [facility] Comment on above: RASH AND SKIN BUBBL ES UP (20 sources) metFORMIN; Translations: [METFORMIN] Drug Allergy 01-24-20 17 GI Upset [facility] Work Phone: (20 sources) Naproxen; Translations: [NAPROXEN SODIUM] Drug Allergy 04-28-19 08 Vomiting [facility] Work Phone: (2 sources) Acetaminophen / HYDROcodone Drug Allergy 01-23-20 22 Nausea And Vomiting [facility] (2 sources) Adhesive Tape Propensity to adverse reactions to drug 01-18-20 22 Rash [facility] (20 sources) Menthol; Translations: [MENTHOL] Drug Allergy 08-08-19 23 Rash [facility] (20 sources) Morphine; Translations: [MORPHINE (PF)] Drug Allergy 03-11-20 Other: See Comments [facility] (20 sources) Prochlorperazine; Translations: [PROCHLORPERAZINE] Drug Allergy 03-11-20 Mental Status Change [facility] (1 source) Menthol Drug Allergy 01-06-20 [facility] Rep[facility] Medications Current Medications Medication Drug Class(es) Dates Sig (Normalized) Sig (Original) acetaminophen 325 mg / butalbital 50 mg / caffeine 40 mg oral capsule (19 sources) Barbiturate, Central Nervous System Stimulant, Methylxanthine Start: 04-04-2024 End: 05-06-2024 take 1 capsule by mouth every six hours as needed for pain acetaminophen 325 mg-caffeine 40 mg-butalbital 50 mg (FIORICET) per capsule Indications: Other migraine without status migrainosus, not intractable Take 1 capsule by mouth every 6 hours as needed for pain or headache. 100 capsule 1 04/06/2024 05/06/2024 Active Start: 02-14-2023 End: 05-26-2023 Altpkjmzxq-Vaygmktfniqpu-Jmu f 50-325-40 mg tablet Discontinued 1 {tbl} PO EVERY 6 HOURS as needed for pain February 14, 2023 12:00am May 26, 2023 9:33am Start: 02-14-2023 End: 05-26-2023 take 1 tablet by mouth every six hours Ovbbgvzfgx-Eimazxisxwgzl-Cbxs Discontinu ed 1 TABLET PO EVERY 6 HOURS February 14, 2023 12:00am May 26, 2023 9:33am Start: 01-18-2020 End: 02-07-2023 take 1 tablet by mouth every six hours as needed for headache acetaminophen 325 mg-caffeine 40 mg-butalbital 50 mg (FIORICET) per tablet Indications: Other migraine without status migrainosus, not intractable Take 1 tablet by mouth every 6 hours as needed for headache for up to 30 days. 20 tablet 0 01/08/2023 02/07/2023 Active Comment on above: Take 1 tablet by bob th every 6 hours as needed for headache for up to 30 days. acetaminophen 325 mg / HYDROcodone bitartrate 7.5 mg oral tablet (20 sources) Opioid Agonist Start: 3 End: 3 take 1 tablet by mouth every six hours as needed for pain HYDROcodone-Acetaminoph en (NORCO) 7.5-325 mg per tablet Indications: Right nephrolithiasis Take 1 tablet by mouth every 6 hours as needed for pain (kidney stones) for up to 7 days. 21 tablet 0 06/30/2022 07/07/2022 Active Start: 07-16-2017 End: 05-26-2018 Hydrocodone-Acetaminophen 1 TABLET tablet Discontinued 1 - 2 {tbl} PO EVERY 4 HOURS NEEDED as needed for Pain 12 0 July 16, 2017 12:00am May 26, 2018 3:45pm Pain, unspecified Start: 07-16-2017 End: 05-26-2018 take 1 tablet by mouth every four hours as needed Hydrocodone-Acetaminophen Discontinued 1 - 2 TABLET PO EVERY 4 HOURS NEEDED July 16, 2017 12:00am May 26, 2018 3:45pm Comment on above: Take 1 tablet by bob th every 6 hours as needed for pain (kidney stones) for up to 7 days. albuterol 0.83 mg/ml inhalation solution (20 sources) beta2-Adrenergic Agonist Start: 07-04-2024 End: 10-02-2024 albuterol (PROVENTIL) 2.5 mg /3 mL (0.083 %) nebulizer solution Indications: Rhonchi at both lung bases , Community acquired pneumonia, unspecified laterality Use 3 mL via nebulizer every 4 hours as needed for wheezing/shortness of breath. 90 mL 2 07/05/2024 Active Start: 06-30-2024 End: 07-05-2024 albuterol (PROVENTIL) 5 mg/m L nebu Indications: SOB (shortness of breath) , Wheeze , Acute cough , Fever, unspecified fever cause , Aches , Chills , Other chest pain Inhale 0.5 mL as instructed one time only for 1 dose. 1 DOSE NOW - BACK OFFICE. PLACE 0.5 ML PER DROPPER AND 2.5 ML OF NORMAL SALINE INTO RESERVOIR. 1 mL 06/30/2024 07/05/2024 Discontinued Start: 06-30-2024 End: 07-04-2024 albuterol (PROVENTIL) 2.5 mg /0.5 mL nebulizer solution Indications: SOB (shortness of breath) , Wheeze , Acute cough , Fever, unspecified fever cause , Aches , Chills , Other chest pain Use 0.5 mL via nebulizer every 4 hours as needed for wheezing/shortness of breath. 50 Each 1 06/30/2024 07/04/2024 Discontinued Start: 06-30-2024 End: 06-30-2024 Albuterol Sulfate nebu 2.5 m g Start: 06-30-2024 End: 06-30-2024 take 1 dose by inhalation once 2.5 mg, INHALATION, ONC E, 1 dose, On Lianet 06/30/24 at 1130 Start: 06-28-2024 take 2 puff(s) by in halation every four hours as needed for wheezing albuterol HFA (PROVENTIL HFA, VENTOLIN HFA) 90 mcg/actuation inhaler Indications: Rhonchi at both lung bases , Community acquired pneumonia, unspecified laterality Inhale 2 Puffs as instructed every 4 hours as needed for wheezing/shortness of breath. 1 Each 1 07/05/2024 Active Start: 08-14-2022 End: 08-14-2022 albuterol 2.5 mg /3 mL (0.08 3 %) 2.5 mg (PROVENTIL) Start: 08-14-2022 End: 02-09-2023 take 2.5 mg by inhalation every four hours as needed albuterol (PROVENTIL) 2.5 mg /3 mL (0.083 %) nebulizer solution Use 3 mL via nebulizer every 4 hours as needed for wheezing/shortness of breath. Use over 5-15minutes. 90 mL 1 08/14/2022 02/09/2023 Discontinued (Course of therapy completed) Start: 08-14-2022 End: 08-14-2022 albuterol (PROVENTIL) 5 mg/m L nebu Inhale 0.5 mL as instructed one time only for 1 dose. 1 DOSE NOW - BACK OFFICE. PLACE 0.5 ML PER DROPPER AND 2.5 ML OF NORMAL SALINE INTO RESERVOIR. 1 mL 0 08/14/2022 08/14/2022 Discontinued Start: 08-07-2022 End: 02-09-2023 take 2 puff(s) by inhalation every four hours as needed albuterol HFA (PROAIR HFA) 90 mcg/actuation inhaler Indications: Viral bronchitis Inhale 2 Puffs as instructed every 4 hours as needed. 1 Each 0 08/07/2022 02/09/2023 Discontinued (Course of therapy completed) Start: 09-04-2020 End: 07-30-2021 Albuterol Sulfate 90 mcg/act uation Hfa Aerosol Inhaler Discontinued 1 NMA INHALATION EVERY 6 HOURS as needed for anxiety/sob September 04, 2020 12:00am July 30, 2021 9:15am Start: 09-04-2020 End: 07-30-2021 Albuterol Sulfate Discontinu ed 1 INH INHALATION EVERY 6 HOURS September 04, 2020 12:00am July 30, 2021 9:15am Start: 05-26-2017 End: 04-16-2020 take 2 puff(s) by inhalation every six hours as needed for wheezing albuterol HFA (VENTOLIN HFA) 90 mcg/actuation inhaler Indications: SOB (shortness of breath) Inhale 2 Puffs as instructed every 6 hours as needed for Wheezing/Shortness of Breath. 2 Inhaler 2 05/26/2017 04/16/2020 Discontinued Start: 04-09-2017 End: 05-26-2018 Albuterol Sulfate 1 INHALER inhaler Discontinued 1 - 2 NMA INHALATION EVERY 4 HOURS NEEDED as needed for wheezing or shortness of breat 1 0 April 09, 2017 2:27pm May 26, 2018 3:45pm Start: 04-09-2017 End: 05-26-2018 take 1 puff(s) by inhalation every four hours as needed Albuterol Sulfate Discontinued 1 - 2 PUFF INHALATION EVERY 4 HOURS NEEDED 1 April 09, 2017 2:27pm May 26, 2018 3:45pm Comment on above: Inhale 2 Puffs as in structed every 4 hours as needed. Use 3 mL via nebuliz er every 4 hours as needed for wheezing/shortness of breath. Use over 5-15minutes. Inhale 0.5 mL as ins tructed one time only for 1 dose. 1 DOSE NOW - BACK OFFICE. PLACE 0.5 ML PER DROPPER AND 2.5 ML OF NORMAL SALINE INTO RESERVOIR. ALPRAZolam 0.25 mg disintegrating oral tablet (1 source) Benzodiazepine Start: ALPRAZolam (NIRAVAM) dissolvable tablet 0.25 mg amphetamine aspartate 2.5 mg / amphetamine sulfate 2.5 mg / dextroamphetamine saccharate 2.5 mg / dextroamphetamine sulfate 2.5 mg oral tablet (20 sources) Central Nervous System Stimulant Start: End: take 1 tablet by mouth once daily dextroamphetamine-am phetamine (ADDERALL) 10 mg tablet Indications: Impaired concentration Take 1 tablet by mouth once daily for 30 days. 30 tablet 01/04/2024 Active Start: 05-04-2023 End: 11-11-2023 take 1 tablet by mouth once daily dextroamphetamine-amphetamine (ADDERALL) 10 mg tablet Indications: Impaired concentration Take 1 tablet by mouth once daily for 30 days. 30 tablet 08/05/2023 09/29/2023 Discontinued Start: 03-03-2023 End: 04-02-2023 take 1 tablet by mouth once daily dextroamphetamine-amphetamine (ADDERALL) 10 mg tablet Indications: Impaired concentration Take 1 tablet by mouth once daily for 30 days. 30 tablet 0 03/03/2023 04/02/2023 Active Start: 02-02-2023 End: 03-04-2023 take 1 tablet by mouth once daily in the morning as needed dextroamphetamine-amphetamine (ADDERALL) 5 mg tablet Indications: Impaired concentration Take 1 tablet by mouth once daily as needed for up to 30 days. In the afternoon, in addition to am 10mg dose. 30 tablet 0 02/02/2023 03/03/2023 Discontinued Start: 09-30-2022 End: 12-02-2022 take 1 tablet by mouth once daily dextroamphetamine-amphetamine (ADDERALL) 10 mg tablet Indications: Impaired concentration Take 1 tablet by mouth once daily for 30 days. 30 tablet 0 09/30/2022 12/02/2022 Discontinued Start: 07-23-2022 End: 12-02-2022 take 1 tablet by mouth once daily in the morning as needed dextroamphetamine-amphetamine (ADDERALL) 5 mg tablet Indications: Impaired concentration Take 1 tablet by mouth once daily as needed for up to 30 days. In the afternoon, in addition to am 10mg dose. 30 tablet 0 08/28/2022 12/02/2022 Discontinued Start: 07-23-2022 End: 08-22-2022 take 1 tablet by mouth once daily dextroamphetamine-amphetamine (ADDERALL) 10 mg tablet Indications: Impaired concentration Take 1 tablet by mouth once daily for 30 days. 30 tablet 0 07/23/2022 Active Start: 02-26-2022 End: 07-18-2022 take 1 tablet by mouth once daily in the morning as needed dextroamphetamine-amphetamine (ADDERALL) 5 mg tablet Indications: Impaired concentration Take 1 tablet by mouth once daily as needed for up to 30 days. In the afternoon, in addition to am 10mg dose. 30 tablet 0 05/12/2022 06/17/2022 Discontinued Start: 02-26-2022 End: 07-18-2022 take 1 tablet by mouth once daily dextroamphetamine-amphetamine (ADDERALL) 10 mg tablet Indications: Impaired concentration Take 1 tablet by mouth once daily for 30 days. 30 tablet 0 05/12/2022 06/17/2022 Discontinued Start: 10-03-2021 End: 02-15-2022 take 1 tablet by mouth once daily in the morning as needed dextroamphetamine-amphetamine (ADDERALL) 5 mg tablet Indications: Impaired concentration Take 1 tablet by mouth once daily as needed for up to 30 days. In the afternoon, in addition to am 10mg dose. 30 tablet 0 01/16/2022 Active Start: 08-26-2021 End: 02-15-2022 take 1 tablet by mouth once daily dextroamphetamine-amphetamine (ADDERALL) 10 mg tablet Indications: Impaired concentration Take 1 tablet by mouth once daily for 30 days. 30 tablet 0 01/16/2022 Active Start: 08-12-2021 End: 08-26-2021 take 1 tablet by mouth once daily dextroamphetamine-amphetamine (ADDERALL) 5 mg tablet Indications: Impaired concentration Take 1 tablet by mouth once daily for 14 days. 14 tablet 0 08/12/2021 08/26/2021 Active Comment on above: Take 1 tablet by bob th once daily for 14 days. Take 1 tablet by bob th once daily for 30 days. Take 1 tablet by bob th once daily as needed for up to 30 days. In the afternoon, in addition to am 10mg dose. Take 1 tablet by bob once daily for 30 days. Do not start before May 06, 2023. Take 1 tablet by bob once daily for 30 days. Do not start before June 05, 2023. Take 1 tablet by bob once daily for 30 days. Do not start before September 01, 2023. Take 1 tablet by bob once daily for 30 days. Do not start before August 04, 2023. betamethasone 0.001 mg/mg topical ointment (20 sources) Corticosteroid Start: 05-26-2023 Betamethasone Valerate 0.1 % ointment Active 1 NMA TOPICAL TWICE A DAY as needed for itching 45 1 May 26, 2023 9:44am Start: 10-01-2021 End: 10-01-2021 Betamethasone Valerate 0.1 % ointment Discontinued 1 NMA TOPICAL TWICE A DAY as needed October 01, 2021 12:00am October 01, 2021 9:49am calcium chloride 0.0014 meq/ml / potassium chloride 0.004 meq/ml / sodium chloride 0.103 meq/ml / sodium lactate 0.028 meq/ml injectable solution (2 sources) Start: 01-27-2022 lactated ringe rs infusion cholecalciferol 0.125 mg oral capsule (20 sources) Vitamin D Start: 03-05-2020 End: 04-11-2024 take 1 capsule by mouth once daily in the morning Cholecalciferol, Vitamin D3, 125 mcg (5,000 unit) cap Indications: Vitamin D deficiency Take 1 capsule by mouth every morning. In addition to 1,000 international unit(s) every morning 90 capsule 3 04/11/2024 Active Start: 03-17-2018 End: 03-05-2020 take 1 capsule by mouth once daily VITAMIN D-3 2,000 unit cap take 1 capsule by mouth once daily 90 capsule 1 03/17/2018 03/05/2020 Discontinued Comment on above: Take 1 capsule by [facility] once daily. clarithromycin 500 mg oral tablet (5 sources) Macrolide Antimicrobial Start: End: take 1 tablet by mouth twice daily clarithromycin (BIAXIN) 500 mg Indications: Rhonchi at both lung bases , Community acquired pneumonia, unspecified laterality Take 1 tablet by mouth two times a day for 10 days. 20 tablet 07/05/2024 07/15/2024 Active clonazePAM 1 mg oral tablet (2 sources) Benzodiazepine Start: End: take 0.5-1 tablets by mouth twice daily as needed for anxiety clonazePAM (KLONOPIN) 1 mg tablet Indications: PRASHANTH (generalized anxiety disorder) , Situational anxiety Take 0.5-1 tablets by mouth two times a day as needed for anxiety for up to 30 days. for insomnia. 30 tablet 2 01/06/2025 02/05/2025 Active codeine phosphate 2 mg/ml / guaiFENesin 20 mg/ml oral solution (7 sources) Opioid Agonist Start: End: 03-11-2 025 take 5 mL by mouth four times daily as needed codeine-guaiFENesin (ROBITUSSIN AC) 10-100 mg/5 mL syrup Indications: SOB (shortness of breath) , Wheeze , Acute cough , Fever, unspecified fever cause , Aches , Chills , Other chest pain Take 5 mL by mouth four times a day as needed for up to 5 days. 100 mL 06/30/2024 07/05/2024 Active Start: 08-14-2022 End: 08-19-2022 take 5 mL by mouth four times daily as needed codeine-guaiFENesin (ROBITUSSIN AC) 10-100 mg/5 mL syrup Indications: Bronchitis , Hoarse , Persistent cough Take 5 mL by mouth four times daily as needed for up to 5 days. 120 mL 1 08/14/2022 08/19/2022 Active Comment on above: Take 5 mL by mouth f our times daily as needed for up to 5 days. diclofenac sodium 0.01 mg/mg topical gel (20 sources) Nonsteroidal Anti-inflammatory Drug Start: 2023 End: 2024 diclofenac (VOLTAREN ARTHRITIS PAIN) 1 % topical gel Indications: Acute pain of right shoulder Apply 2 g to affected area three times a day as needed. 100 g 1 05/05/2024 Active Comment on above: Apply 2 g to affecte d area three times a day as needed. 1 ml diphenhydrAMINE hydrochloride 50 mg/ml cartridge (1 source) Histamine-1 Receptor Antagonist Start: 2021 End: 2021 diphenhydrAMINE (BENADRYL) injection 12.5 mg 0.5 ml dulaglutide 3 mg/ml auto-injector (15 sources) GLP-1 Receptor Agonist Start: 2024 End: 2024 inject 1 dose by subcutaneous injection every week dulaglutide (TRULICITY) 1.5 mg/0.5 mL pen injector Indications: IFG (impaired fasting glucose) Inject 1.5 mg subcutaneously one time a week. Inject dose once per week. Discard Pen After 6 mL 1 01/06/2025 Active Start: 07-05-2024 End: 10-06-2024 inject 0.75 mg by subcutaneous injection every week dulaglutide (TRULICITY) 0.75 mg/0.5 mL pen injector Inject 0.75 mg subcutaneously one time a week. Inject dose once per week. Discard Pen After 3 mL 1 08/23/2024 10/06/2024 Discontinued enteric contrast (will be provided with radiology test) (2 sources) Start: 01-04-2024 End: 01-05-2024 enteric contrast (will be provided with radiology test) Indications: Endometriosis , Right lower quadrant abdominal pain For CT ABD/PEL W IVCON Routine order Administer, As Directed One Time Only, via Oral, Rectal, both Oral and Rectal, Enteric Tube, Stoma or Indwelling Catheter, Enteric Contrast as designated per enteric contrast guidelines 1 Each 01/04/2024 01/05/2024 Active Start: 02-27-2022 End: 02-28-2022 enteric contrast (will be pr ovided with radiology test) Indications: Bloody stool , Chronic midline low back pain without sciatica , Abdominal pain, LLQ , Hx of bilateral oophorectomy For CT ABD/PEL W IVCON Routine order Administer, As Directed One Time Only, via Oral, Rectal, both Oral and Rectal, Enteric Tube, Stoma or Indwelling Catheter, Enteric Contrast as designated per enteric contrast guidelines 1 Each 0 02/27/2022 02/28/2022 Active Comment on above: For CT ABD/PEL W IVC ON Routine order Administer, As Directed One Time Only, via Oral, Rectal, both Oral and Rectal, Enteric Tube, Stoma or Indwelling Catheter, Enteric Contrast as designated per enteric contrast guidelines estradiol 0.1 mg/ml vaginal cream (6 sources) Estrogen Start: 11-04-2021 Estradiol Active 0 VAGINAL .COMPLEX 42.5 November 04, 2021 12:00am small amount as directed vaginal every other day X 4 weeks then twice a week; estradiol (ESTRA CE) 0.1 MG/GM vaginal cream Place 2 g vaginally daily 0 Active 2 ml fentaNYL 0.05 mg/ml injection (2 sources) Opioid Agonist Start: 01-27-2022 fentaNYL (SUBL IMAZE) injection 50 mcg Start: 01-27-2022 fentaNYL (SUBL IMAZE) injection 25 mcg fluocinonide 0.0005 mg/mg topical ointment (7 sources) Corticosteroid Start: 10-01-2021 Fluocinonide A ctive 1 APPLIC TOPICAL .COMPLEX October 01, 2021 12:00am 1 applic topical small amount, rub in well bid X 2 weeks then daily X 2 weeks; Inhalational Spacing Device (1 source) Start: 06-28-2024 End: 06-28-2024 Inhalational Spacing Device Indications: Bronchitis , Viral URI with cough 1 Device one time only for 1 dose. 1 Each 06/28/2024 06/28/2024 Active iv contrast (will be provided with radiology test) (2 sources) Start: 01-04-2024 End: 01-05-2024 iv contrast (will be provided with radiology test) Indications: Endometriosis , Right lower quadrant abdominal pain CT ABD/PEL -Inject, intravenously, once for 1 dose.No IV access, insert saline lock prior to the beginning of sedation, infusion, injection of imaging exam. Discontinue saline lock post exam. If Pt. has a central line or IVAD, may access for administration according to line specific nursing protocol. Once exam is complete flush line and de-access according to line specific nursing protocol in the CT contrast administration guidelines link. 1 Each 01/04/2024 01/05/2024 Active Start: 02-27-2022 End: 02-28-2022 iv contrast (will be provide d with radiology test) Indications: Bloody stool , Chronic midline low back pain without sciatica , Abdominal pain, LLQ , Hx of bilateral oophorectomy CT ABD/PEL -Inject, intravenously, once for 1 dose.No IV access, insert saline lock prior to the beginning of sedation, infusion, injection of imaging exam. Discontinue saline lock post exam. If Pt. has a central line or IVAD, may access for administration according to line specific nursing protocol. Once exam is complete flush line and de-access according to line specific nursing protocol in the CT contrast administration guidelines link. 1 Each 0 02/27/2022 02/28/2022 Active Comment on above: CT ABD/PEL -Inject, intravenously, once for 1 dose.No IV access, insert saline lock prior to the beginning of sedation, infusion, injection of imaging exam. Discontinue saline lock post exam. If Pt. has a central line or IVAD, may access for administration according to line specific nursing protocol. Once exam is complete flush line and de-access according to line specific nursing protocol in the CT contrast administration guidelines link. labetalol (NORMODYNE;TRANDATE) injection 5 mg (1 source) Start: labetalol (NORMODYNE;TRANDATE) injection 5 mg levothyroxine sodium 0.088 mg oral tablet (20 sources) l-Thyroxine Start: End: take 1 tablet by mouth once daily before breakfast levothyroxine (SYNTHROID) 88 mcg tablet Indications: Hypothyroidism, acquired Take 1 tablet by mouth daily before breakfast. and skip 1 day weekly. 90 tablet 3 04/04/2024 Active Start: 05-10-2020 End: 08-23-2020 Levothyroxine 88 mcg capsule Active 88 ug PO MOTUWETHFRSA August 23, 2020 9:23am skip thursday Start: 11-07-2019 End: 02-27-2022 take 1 tablet by mouth once daily levothyroxine (SYNTHROID) 88 mcg tablet Take 1 tablet by mouth once daily. and skip 1 day weekly. 90 tablet 3 11/07/2019 05/22/2021 Discontinued Start: 05-08-2014 End: 05-10-2020 Levothyroxine 75 MCG tablet Discontinued 88 ug PO DAILY May 08, 2014 1:00am May 10, 2020 10:01am Start: 05-08-2014 End: 05-10-2020 take 88 ug by mouth once daily Levothyroxine Discontin ued 88 MCG PO DAILY May 08, 2014 1:00am May 10, 2020 10:01am Comment on above: Take 1 tablet by bob th once daily. and skip 1 day weekly. Take 1 tablet by bob th daily before breakfast. and skip 1 day weekly. 10 ml lidocaine hydrochloride 10 mg/ml injection (1 source) Antiarrhythmic, Amide Local Anesthetic Start: 01-28-20 End: 01-29-20 lidocaine 1 % injection 1 mL LORazepam 1 mg oral tablet (20 sources) Benzodiazepine Start: 10-07-19 End: 01-05-20 take 1 tablet by mouth twice daily as needed for anxiety LORazepam (ATIVAN) 1 mg tablet Indications: Anxiety disorder, unspecified type , PRASHANTH (generalized anxiety disorder) , Situational anxiety Take 1 tablet by mouth two times a day as needed for anxiety for up to 90 days. 40 tablet 2 10/06/2024 01/04/2025 Active Start: 07-05-2024 End: 10-03-2024 take 1 tablet by mouth twice daily as needed for anxiety LORazepam (ATIVAN) 1 mg tablet Indications: Impaired concentration , Anxiety disorder, unspecified type , PRASHANTH (generalized anxiety disorder) , Situational anxiety Take 1 tablet by mouth two times a day as needed for anxiety for up to 90 days. 40 tablet 2 07/05/2024 10/03/2024 Active Start: 04-04-2024 End: 07-03-2024 take 1 tablet by mouth twice daily as needed for anxiety LORazepam (ATIVAN) 1 mg tablet Indications: Impaired concentration , Anxiety disorder, unspecified type , PRASHANTH (generalized anxiety disorder) , Situational anxiety Take 1 tablet by mouth two times a day as needed for anxiety for up to 90 days. 40 tablet 2 04/04/2024 07/03/2024 Active Start: 11-26-2023 End: 02-24-2024 take 1 tablet by mouth twice daily as needed for anxiety LORazepam (ATIVAN) 1 mg tablet Indications: Impaired concentration , Anxiety disorder, unspecified type , PRASHANTH (generalized anxiety disorder) , Situational anxiety Take 1 tablet by mouth two times a day as needed for anxiety for up to 90 days. 40 tablet 2 11/26/2023 02/24/2024 Active Start: 01-27-2022 End: 01-27-2022 LORazepam (ATIVAN) injection 0.5 mg Start: 11-15-2019 End: 10-29-2023 take 1 tablet by mouth once daily as needed for anxiety Lorazepam 0.5 MG tablet Active 0.5 mg PO DAILY NEEDED as needed for Anxiety November 23, 2019 12:00am Start: 07-02-2016 End: 05-26-2018 take 1 tablet by mouth once daily as needed for anxiety Lorazepam 0.5 MG tablet Discontinued 0.5 mg PO DAILY NEEDED as needed for Anxiety July 02, 2016 1:00am May 26, 2018 3:45pm End: 08-12-2021 lorazepam (ATIVAN ORAL) Take by mouth. 08/12/2021 Discontinued take 1 tablet by bob th every six hours as needed for anxiety LORazepam (ATIVAN) 0.5 MG tablet Take 0.5 mg by mouth every 6 hours as needed for Anxiety. 0 Active End: 08-12-2021 lorazepam (ATIVAN ORAL) Take by mouth. 0 08/12/2021 Discontinued Comment on above: Take 1 tablet by bob once daily as needed for up to 30 days. Take by mouth. 1 ml meperidine hydrochloride 25 mg/ml cartridge (1 source) Opioid Agonist Start: 2 meperidine (DEMEROL) injection 12.5 mg naproxen 500 mg oral tablet (20 sources) Nonsteroidal Anti-inflammatory Drug Start: 5 End: take 1 tablet by mouth twice daily as needed for pain naproxen (NAPROSYN) 500 mg tablet Indications: Acute pain of right shoulder Take 1 tablet by mouth two times a day as needed (FOR PAIN - TAKE WITH FOOD.). 30 tablet 05/05/2024 06/04/2024 Active Start: 01-15-2022 take 500 mg by mouth every eight hours at mealtime Naproxen Active 500 MG PO Q8H January 15, 2022 12:00am administer with food or milk Start: 07-30-2021 End: 08-19-2021 take 1 tablet by mouth twice daily as needed for pain Naproxen 500 MG tablet Discontinued 500 mg PO TWICE DAILY NEEDED as needed for Pain 30 July 30, 2021 12:00am August 19, 2021 3:25pm Start: 10-26-2020 End: 07-09-2021 take 1 tablet by mouth twice daily Naproxen 500 MG tablet Discontinued 500 mg PO TWICE A DAY October 26, 2020 12:00am July 09, 2021 9:25am Start: 09-11-2020 End: 10-22-2020 take 250-500 mg by mouth every eight hours as needed for pain Naproxen 250 MG tablet Discontinued 250 - 500 mg PO EVERY 8 HOURS NEEDED as needed for MILD PAIN 30 September 11, 2020 12:00am October 22, 2020 10:42am Start: 06-25-2020 End: 09-25-2020 Naproxen 500 mg tablet Disco ntinued 500 mg PO 2 to 3 times per day as needed for pain 60 June 25, 2020 1:00am September 25, 2020 2:56pm Polycystic ovarian syndrome administer with food or milk Start: 12-15-2018 End: 02-15-2019 take 1 tablet by mouth every twelve hours at mealtime Naproxen 500 mg tablet Discontinued 500 mg PO Q12H December 15, 2018 12:00am February 15, 2019 6:07pm administer with food or milk Start: 07-16-2017 End: 05-26-2018 take 1 tablet by mouth twice daily as needed Naproxen 500 MG tablet Discontinued 500 mg PO TWICE DAILY NEEDED July 16, 2017 12:00am May 26, 2018 3:46pm ondansetron 8 mg oral tablet (20 sources) Serotonin-3 Receptor Antagonist Start: 07-07-2024 take 1 tablet by mouth every eight hours as needed for nausea and nausea ondansetron (ZOFRAN) 8 mg tablet Indications: Nausea Take 1 tablet by mouth every 8 hours as needed for nausea/vomiting. 20 tablet 07/07/2024 Active Start: 02-24-2023 End: 05-26-2023 take 1 tablet by mouth every eight hours as needed for nausea Ondansetron 4 mg tablet,disintegrating Discontinued 4 mg PO EVERY 8 HOURS NEEDED as needed for Nausea 10 0 February 24, 2023 12:00am May 26, 2023 9:33am Start: 01-27-2022 End: 01-27-2022 ondansetron (ZOFRAN) injecti on 4 mg Start: 07-30-2021 End: 08-19-2021 take 1 tablet by mouth every eight hours as needed for nausea and vomiting Ondansetron Hcl 4 mg tablet Discontinued 4 mg PO Q8H as needed for nausea and vomiting 14 0 July 30, 2021 12:00am August 19, 2021 3:25pm Start: 06-30-2019 End: 10-06-2024 take 1 tablet by mouth every six hours as needed for nausea and nausea ondansetron orally disintegrating (ZOFRAN ODT) 4 mg disintegrating tablet Indications: Nausea Take 1 tablet by mouth every 6 hours as needed for Nausea/Vomiting. 20 tablet 1 06/30/2019 10/06/2024 Discontinued Comment on above: Take 1 tablet by bob th every 6 hours as needed for Nausea/Vomiting. oseltamivir 75 mg oral capsule (3 sources) Neuraminidase Inhibitor Start: 07-02-19 End: 07-07-19 take 1 capsule by mouth twice daily oseltamivir (TAMIFLU) 75 mg capsule Indications: Influenza A Take 1 capsule by mouth two times a day for 5 days. 10 capsule 07/01/2024 07/06/2024 Active phentermine hydrochloride 37.5 mg oral tablet (20 sources) Sympathomimetic Amine Anorectic Start: 01-07-20 End: 04-06-20 take 1 tablet by mouth once daily Phentermine HCl (ADIPEX-P) 37.5 mg tablet Indications: Obesity, Class II, BMI 35-39.9 Take 1 tablet by mouth once daily for 90 days. BMI 38.28 30 tablet 2 01/06/2025 04/06/2025 Active Start: 10-06-2024 End: 01-04-2025 take 1 tablet by mouth once daily Phentermine HCl (ADIPEX-P) 37.5 mg tablet Indications: Obesity, Class II, BMI 35-39.9 Take 1 tablet by mouth once daily for 90 days. BMI 38.28 30 tablet 2 10/06/2024 01/04/2025 Active Start: 07-05-2024 End: 08-04-2024 take 1 tablet by mouth once daily Phentermine HCl (ADIPEX-P) 37.5 mg tablet Indications: Obesity, Class II, BMI 35-39.9 Take 1 tablet by mouth once daily for 30 days. BMI 38.28 30 tablet 2 07/05/2024 08/04/2024 Start: 04-04-2024 End: 05-04-2024 take 1 tablet by mouth once daily Phentermine HCl (ADIPEX-P) 37.5 mg tablet Indications: Obesity, Class II, BMI 35-39.9 Take 1 tablet by mouth once daily for 30 days. BMI 38.28 30 tablet 2 04/04/2024 05/04/2024 Active Start: 01-04-2024 End: 02-03-2024 take 1 tablet by mouth once daily Phentermine HCl (ADIPEX-P) 37.5 mg tablet Indications: Obesity, Class II, BMI 35-39.9 Take 1 tablet by mouth once daily for 30 days. BMI 38.28 30 tablet 2 01/04/2024 02/03/2024 Active Start: 06-08-2023 End: 10-29-2023 take 1 tablet by mouth once daily Phentermine HCl (ADIPEX-P) 37.5 mg tablet Indications: Obesity, Class II, BMI 35-39.9 Take 1 tablet by mouth once daily for 30 days. BMI 38.28 30 tablet 2 09/29/2023 10/29/2023 Active Start: 12-02-2022 End: 02-28-2023 take 1 tablet by mouth once daily Phentermine HCl (ADIPEX-P) 37.5 mg tablet Indications: Obesity, Class II, BMI 35-39.9 Take 1 tablet by mouth once daily for 30 days. BMI 36.91 30 tablet 2 01/29/2023 02/28/2023 Start: 09-30-2022 End: 11-23-2022 take 1 tablet by mouth once daily Phentermine HCl (ADIPEX-P) 37.5 mg tablet Indications: Obesity, Class III, BMI 40-49.9 (morbid obesity) (HCC) Take 1 tablet by mouth once daily for 30 days. BMI 38.32 30 tablet 0 10/24/2022 11/23/2022 Active Start: 06-30-2022 End: 09-27-2022 take 1 tablet by mouth once daily Phentermine HCl (ADIPEX-P) 37.5 mg tablet Indications: Obesity, Class III, BMI 40-49.9 (morbid obesity) (HCC) Take 1 tablet by mouth once daily for 30 days. BMI 38.32 30 tablet 0 07/31/2022 08/28/2022 Discontinued Start: 11-04-2021 End: 01-04-2022 take 1 tablet by mouth once daily Phentermine HCl (ADIPEX-P) 37.5 mg tablet Indications: Obesity, Class III, BMI 40-49.9 (morbid obesity) (HCC) , Dyslipidemia , IFG (impaired fasting glucose) Take 1 tablet by mouth once daily for 30 days. BMI 38.16 30 tablet 0 12/05/2021 01/04/2022 Active Start: 10-03-2021 End: 11-02-2021 take 1 tablet by mouth once daily Phentermine HCl (ADIPEX-P) 37.5 mg tablet Indications: Obesity, Class III, BMI 40-49.9 (morbid obesity) (HCC) Take 1 tablet by mouth once daily for 30 days. BMI 38.94 30 tablet 0 10/03/2021 11/02/2021 Active Comment on above: Take 1 tablet by bob th once daily for 30 days. BMI 38.94 Take 1 tablet by bob th once daily for 30 days. BMI 38.16 Take 1 tablet by bob th once daily for 30 days. BMI 37.89 Take 1 tablet by bob th once daily for 30 days. BMI 38.32 Take 1 tablet by bob th once daily for 30 days. BMI 36.91 Take 1 tablet by bob th once daily for 30 days. BMI 38.28 predniSONE 10 mg oral tablet (19 sources) Start: 06-30-2024 End: 07-16-2024 predniSONE (DELTASONE) 10 mg tablet Indications: SOB (shortness of breath) , Wheeze Take 4 tabs daily for 3 days, then 2 tabs daily for 3 days, then 1 tab daily for 3 days with food. 21 tablet 07/07/2024 07/16/2024 Active Start: 06-28-2024 End: 07-02-2024 take 2 tablets by mouth once daily predniSONE (DELTASONE) 20 mg tablet Indications: Bronchitis , Viral URI with cough Take 2 tablets by mouth once daily for 4 days. 8 tablet 06/28/2024 06/30/2024 Discontinued Start: 05-05-2024 End: 05-14-2024 predniSONE (DELTASONE) 10 mg tablet Indications: Acute pain of right shoulder Take 4 tabs daily for 3 days, then 2 tabs daily for 3 days, then 1 tab daily for 3 days with food. 21 tablet 05/05/2024 05/14/2024 Active Start: 08-07-2022 End: 08-16-2022 predniSONE (DELTASONE) 10 mg tablet Take 4 tabs daily for 3 days, then 2 tabs daily for 3 days, then 1 tab daily for 3 days with food. 21 tablet 0 08/07/2022 08/16/2022 Active Start: 12-03-2020 End: 12-15-2020 predniSONE (DELTASONE) 10 mg tablet Indications: Lumbar back pain , Hip pain Take 4 tabs daily x 3 days, then 3 tabs x 3 days, 2 tabs x 3 days, then 1 tab x3 days with food. 30 tablet 12/03/2020 12/15/2020 Comment on above: Take 4 tabs daily fo r 3 days, then 2 tabs daily for 3 days, then 1 tab daily for 3 days with food. pyridostigmine bromide 60 mg oral tablet (1 source) Start: 01-06-20 Pyridostigmine [place] 60 mg tablet Active 30 mg PO TWICE A DAY 24 07January 05, 2025 12:00am semaglutide, weight loss, (WEGOVY) 0.25 mg/0.5 mL pen injector (3 sources) Start: 04-06-20 End: 05-04-19 inject 0.5 mL by subcutaneous injection every week semaglutide, weight loss, (WEGOVY) 0.25 mg/0.5 mL pen injector Indications: Dyslipidemia , Dysmetabolic syndrome , Hyperinsulinemia , IFG (impaired fasting glucose) Inject 0.5 mL subcutaneously one time a week for 28 days. 2 mL 04/06/2024 05/04/2024 Active 5 ml sodium chloride 9 mg/ml injection (9 sources) Start: 01-28-20 sodium chloride flush 0.9 % injection 5-40 mL Start: 01-27-2022 0.9 % sodium c hloride bolus Start: 01-27-2022 0.9 % sodium c hloride infusion Start: 01-27-2022 sodium chlorid e flush 0.9 % injection 5-40 mL sulfamethoxazole 800 mg / trimethoprim 160 mg oral tablet (20 sources) Dihydrofolate Reductase Inhibitor Antibacterial, Sulfonamide Antimicrobial Start: 01-06-2025 End: 01-16-2025 take 1 tablet by mouth twice daily sulfamethoxazole-trimethoprim (BACTRIM DS) 800-160 mg per tablet Indications: Infected sebaceous cyst Take 1 tablet by mouth two times a day for 10 days. 20 tablet 01/06/2025 01/16/2025 Active Start: 07-05-2024 End: 07-10-2024 take 1 tablet by mouth twice daily sulfamethoxazole-trimethoprim (BACTRIM D S) 800-160 mg per tablet Indications: Rhonchi at both lung bases , Community acquired pneumonia, unspecified laterality Take 1 tablet by mouth two times a day for 5 days. 10 tablet 07/05/2024 07/10/2024 Active Start: 02-14-2023 End: 05-26-2023 Sulfamethoxazole-Trimethopri m (Bactrim Ds) 800-160 mg tablet Discontinued 1 {tbl} PO TWICE A DAY 14 7 0 February 14, 2023 12:00am May 26, 2023 9:33am Start: 10-04-2020 End: 10-07-2020 Sulfamethoxazole-Trimethopri m (Bactrim Ds) 800-160 mg tablet Discontinued 1 {tbl} PO TWICE A DAY 6 3 0 October 04, 2020 12:00am October 06, 2020 12:00am October 07, 2020 12:01am Comment on above: Take 1 tablet by bob two times a day for 5 days. tiZANidine 4 mg oral tablet (20 sources) Central alpha-2 Adrenergic Agonist Start: 12-03-2020 End: 05-05-2024 take 1 tablet by mouth every eight hours as needed for muscle spasms tiZANidine (ZANAFLEX) 4 mg tablet Indications: Acute pain of right shoulder Take 1 tablet by mouth every 8 hours as needed (muscle spasms). 15 tablet 05/05/2024 Active Start: 10-26-2020 End: 07-09-2021 take 1 tablet by mouth at bedtime as needed for muscle spasms Tizanidine 2 mg tablet Active 2 mg PO AT BEDTIME as needed for MUSCLE SPASMS July 09, 2021 9:25am Comment on above: Take 1 tablet by [facility] every 8 hours as needed (muscle spasms). traZODone hydrochloride 50 mg oral tablet (2 sources) Serotonin Reuptake Inhibitor Start: 025 take 1-2 tablets by mouth once daily at bedtime traZODone (DESYREL) 50 mg tablet Indications: Situational insomnia Take 1-2 tablets by mouth daily at bedtime. For insomnia 60 tablet 2 01/06/2025 Active triamcinolone acetonide 5 mg/ml topical cream (20 sources) Corticosteroid Start: 023 End: 024 triamcinolone acetonide (KENALOG) 0.5 % cream Indications: Dermatofibroma Apply 1 application to affected area daily at bedtime. On left lower leg skin lesion at ankle. Apply sparingly. Avoid face/skin fold. 15 g 1 09/29/2023 Active Start: 03-14-2019 End: 02-09-2023 take 2 spray(s) by inhalation once daily in the morning triamcinolone acetonide (NASACORT) 55 mcg nasal inhaler Use 2 Sprays in the nose once daily. In the morning 3 Bottle 1 03/14/2019 02/09/2023 Discontinued (Course of therapy completed) Start: 09-16-2017 End: 03-02-2020 triamcinolone acetonide (BOLIVAR ALOG) 0.1 % cream Indications: Flexural eczema Apply 1 application to affected area three times daily. For eczema left knee, Apply sparingly to area for rash/itching. 30 g 1 09/16/2017 03/02/2020 Discontinued Comment on above: Use 2 Sprays in the nose once daily. In the morning Apply 1 application to affected area daily at bedtime. On left lower leg skin lesion at ankle. Apply sparingly. Avoid face/skin fold. Vitamin B Complex (20 sources) Start: 06-08-2023 take 1 tablet by mouth once daily vitamin b complex (B COMPLETE) tab Take 1 tablet by mouth once daily. 90 tablet 1 06/08/2023 Active Start: 05-26-2023 take 1 tablet by bob th once daily Vitamin B Complex Active 1 TABLET PO DAILY May 26, 2023 1:00am Start: 05-26-2023 take 1 tablet by bob th once daily Vitamin B Complex Active 1 TABLET PO DAILY May 26, 2023 12:00am Start: 12-31-2022 End: 06-08-2023 take 1 tablet by mouth once daily vitamin b complex (B COMPLETE) tab Take 1 tablet by mouth once daily. 90 tablet 1 12/31/2022 06/08/2023 Discontinued Start: 12-31-2022 take 1 tablet by bob th once daily vitamin b complex (B COMPLETE) tab Take 1 tablet by mouth once daily. 90 tablet 1 12/31/2022 Active Start: 06-30-2022 End: 12-29-2022 take 1 tablet by mouth once daily vitamin b complex (B COMPLETE) tab Take 1 tablet by mouth once daily. 90 tablet 1 06/30/2022 12/29/2022 Discontinued Start: 06-30-2022 take 1 tablet by bob th once daily vitamin b complex (B COMPLETE) tab Take 1 tablet by mouth once daily. 90 tablet 1 06/30/2022 Active Start: 05-09-2020 End: 06-30-2022 take 1 tablet by mouth once daily vitamin b complex (B COMPLETE) tab Take 1 tablet by mouth once daily. 90 tablet 1 05/09/2020 06/30/2022 Discontinued Start: 05-09-2020 take 1 tablet by bob th once daily vitamin b complex (B COMPLETE) tab Take 1 tablet by mouth once daily. 90 tablet 1 05/09/2020 Active Comment on above: Take 1 tablet by bob th once daily. Vitamin B Complex tablet (5 sources) Start: 05-26-2023 Vitamin B Complex tablet Active 1 {tbl} PO DAILY May 26, 2023 1:00am vitamin b12 1 mg/ml injectable solution (20 sources) Vitamin B12 Start: 09-29-2023 End: 09-29-2023 cyanocobalamin 1,000 mcg injection Start: 09-29-2023 End: 04-03-2025 inject 1 mL by intramuscular injection every week, then inject 1 mL by intramuscular injection every other week, then inject 1 mL by intramuscular injection every month cyanocobalamin 1,000 mcg/mL Indications: Vitamin B12 deficiency Inject 1 mL intramuscularly one time a week for 30 days, THEN 1 mL every 2 weeks for 60 days, THEN 1 mL once every month. 10 mL 3 01/04/2024 04/03/2025 Active Start: 08-05-2018 End: 11-29-2018 take 1 tablet by mouth once daily Cyanocobalamin (Lizeth min B-12) 1,000 MCG tablet Discontinued 1000 ug PO DAILY August 05, 2018 12:00am November 29, 2018 2:08pm vitamin D3-vitamin K2, MK4, 1,000-100 unit-mcg tab (20 sources) Start: 04-11-2024 take 1 tablet by mouth once daily in the morning vitamin D3-vitamin K2, MK4, 1,000-100 unit-mcg tab Take 1 tablet by mouth every morning. In addition to 5,000 units 90 tablet 3 04/11/2024 Active Completed/Discontinued Medications Medication Drug Class(es) Dates Sig (Normalized) Sig (Original) acetaminophen 500 mg oral tablet (1 source) Start: 01-27-2022 End: 01-27-2022 acetaminophen (TYLENOL) tablet 1,000 mg Start: 01-27-2022 End: 01-27-2022 acetaminophen (TYLENOL) tabl et 1,000 mg acetaminophen 325 mg / oxyCODONE hydrochloride 5 mg oral tablet (20 sources) Opioid Agonist Start: 02-26-2023 End: 03-05-2023 take 1 tablet by mouth every eight hours as needed for pain oxyCODONE-acetaminophen (PERCOCET) 5-325 mg tablet Indications: Kidney stone Take 1 tablet by mouth every 8 hours as needed for pain for up to 7 days. 21 tablet 0 02/26/2023 03/05/2023 Start: 02-14-2023 End: 05-26-2023 Oxycodone-Acetaminophen (Per cocet) 5-325 mg tablet Discontinued 1 {tbl} PO EVERY 6 HOURS as needed for pain 12 3 0 February 14, 2023 May 26, 2023 9:33am Calculus of kidney Renal colic Calculus of kidney Unspecified renal colic Start: 01-30-2022 End: 03-13-2022 Oxycodone-Acetaminophen 5-32 5 mg tablet Discontinued 1 {tbl} PO EVERY 6 HOURS NEEDED as needed for Pain 12 3 0 January 30, 2022 March 13, 2022 9:54am Acute postoperative pain of abdomen Other acute postprocedural pain Unspecified abdominal pain Start: 01-30-2022 End: 03-13-2022 take 1 tablet by mouth every six hours as needed Oxycodone-Acetaminophen Discontinued 1 TABLET PO EVERY 6 HOURS NEEDED 12 3 January 30, 2022 March 13, 2022 9:54am Start: 07-30-2021 End: 08-19-2021 Oxycodone-Acetaminophen (Per cocet) 5-325 mg tablet Discontinued 1 {tbl} PO EVERY 6 HOURS as needed for pain 28 7 0 July 30, 2021 August 19, 2021 3:26pm History of ovarian cystectomy Other specified postprocedural states Personal history of other diseases of the female genital tract Start: 09-11-2020 End: 09-25-2020 Oxycodone-Acetaminophen (End ocet) 5-325 mg tablet Discontinued 1 {tbl} PO Q4H as needed for pain 20 7 0 September 11, 2020 September 25, 2020 2:56pm Status post vaginal hysterectomy Acquired absence of both cervix and uterus Comment on above: Take 1 tablet by bob th every 8 hours as needed for pain for up to 7 days. aspirin 325 mg / butalbital 50 mg / caffeine 40 mg oral capsule (20 sources) Platelet Aggregation Inhibitor, Barbiturate, Nonsteroidal Anti-inflammatory Drug, Central Nervous System Stimulant, Methylxanthine Start: 10-11-2019 End: 05-10-2020 Cjevccwblo-Mlpkidu-Ugmn eine 1 EACH capsule Discontinued 1 NMA PO EVERY 4 HOURS NEEDED as needed for Migraine Symptoms October 11, 2019 12:00am May 10, 2020 10:01am Start: 10-11-2019 End: 05-10-2020 Zittudsdvs-Cvzntpv-Gosbsibi Discontinued 1 EACH PO EVERY 4 HOURS NEEDED October 11, 2019 12:00am May 10, 2020 10:01am Azo Probiotic (20 sources) Start: 09-11-2020 End: 09-11-2020 take 1 tablet by mouth once daily Azo Probiotic Discontinued 1 TABLET SL/PO DAILY September 11, 2020 7:30am September 11, 2020 11:00am Start: 09-11-2020 End: 09-11-2020 Azo Probiotic Discontinued 1 {tbl} SL/PO DAILY September 11, 2020 12:00am September 11, 2020 11:00am FEMININE BALANCE Start: 09-11-2020 End: 09-11-2020 Azo Probiotic Discontinued 1 {tbl} SL/PO DAILY September 11, 2020 12:00am September 11, 2020 11:00am Start: 09-11-2020 End: 09-11-2020 take 1 tablet by mouth once daily Azo Probiotic Discontinued 1 TABLET SL/PO DAILY September 10, 2020 11:00pm September 11, 2020 10:00am Start: 09-11-2020 End: 09-11-2020 take 1 tablet by mouth once daily Azo Probiotic Discontinued 1 TABLET SL/PO DAILY September 11, 2020 12:00am September 11, 2020 11:00am benzonatate 100 mg oral capsule (20 sources) Non-narcotic Antitussive Start: 06-30-2024 End: 10-06-2024 take 1 capsule by mouth three times daily as needed benzonatate (TESSALON PERLE) 100 mg capsule Indications: SOB (shortness of breath) , Wheeze , Acute cough , Fever, unspecified fever cause , Aches , Chills , Other chest pain Take 1 capsule by mouth three times a day as needed. 21 capsule 06/30/2024 10/06/2024 Discontinued Start: 08-07-2022 End: 02-09-2023 take 2 capsules by mouth every eight hours as needed benzonatate (TESSALON PERLE) 100 mg capsule Take 2 capsules by mouth three times daily as needed. 30 capsule 0 08/07/2022 02/09/2023 Discontinued (Course of therapy completed) Comment on above: Take 2 capsules by m outh three times daily as needed. busPIRone hydrochloride 10 mg oral tablet (20 sources) Start: 11-26-2023 End: 06-30-2024 busPIRone (BUSPAR) 10 mg tablet Indications: Anxiety disorder, unspecified type , PRASHANTH (generalized anxiety disorder) Take 1 tablet in the morning and 1 tablet in the evening. 90 tablet 2 11/26/2023 06/30/2024 Discontinued Start: 03-13-2022 End: 02-14-2023 take 1 tablet by mouth twice daily Buspirone 5 mg tablet Discontinued 5 mg PO TWICE A DAY 60 March 13, 2022 1:00am February 14, 2023 5:41am Start: 08-09-2020 End: 08-23-2020 take 5 mg by mouth twice daily Buspirone 10 mg tablet Discontinued 5 mg PO TWICE A DAY 60 8 August 09, 2020 12:00am August 23, 2020 9:24am Start: 08-09-2020 End: 08-23-2020 take 5 mg by mouth twice daily Buspirone Discontinued 5 MG PO TWICE A DAY 60 August 09, 2020 12:00am August 23, 2020 9:24am Start: 11-07-2019 End: 03-02-2020 busPIRone (BUSPAR) 10 mg tab let Indications: PRASHANTH (generalized anxiety disorder) Take 1 tablet in the morning and 1 tablet in the evening. Can take 1 tablet in the afternoon if needed. 90 tablet 2 11/07/2019 03/02/2020 Discontinued citalopram 10 mg oral tablet (2 sources) Serotonin Reuptake Inhibitor Start: 10-06-2024 End: 01-06-2025 take 1 tablet by mouth once daily citalopram hydrobromide (CELEXA) 10 mg tablet Indications: Anxiety disorder, unspecified type , PRASHANTH (generalized anxiety disorder) Take 1 tablet by mouth once daily. 90 tablet 1 10/06/2024 01/06/2025 Discontinued clobetasol propionate 0.0005 mg/mg topical ointment (20 sources) Corticosteroid Start: 05-10-2020 End: 08-30-2020 Clobetasol 0.05 % ointment Discontinued 1 NMA TOPICAL AT BEDTIME as needed May 17, 2020 12:36pm August 30, 2020 1:20pm apply thin layer; massage gently into affected area nightly x 6 weeks then 1-2x weekly cosyntropin 0.25 mg injection (CORTROSYN) (20 sources) Start: 07-07-2018 End: 09-25-2022 cosyntropin 0.25 mg injection (CORTROSYN) Start: 07-07-2018 cosyntropin 0. 25 mg injection (CORTROSYN) dicyclomine hydrochloride 10 mg oral capsule (20 sources) Anticholinergic Start: 09-08-2018 End: 11-29-2018 take 2 capsules by mouth three times daily before mealtime Dicyclomine 10 MG capsule Discontinued 20 mg PO THREE TIMES DAILY BEFORE MEALS September 08, 2018 12:00am November 29, 2018 2:08pm Start: 09-08-2018 End: 11-29-2018 take 20 mg by mouth three times daily before mealtime Dicyclomine Discontinued 20 MG PO THREE TIMES DAILY BEFORE MEALS September 08, 2018 12:00am November 29, 2018 2:08pm diphenhydrAMINE citrate 38 mg / ibuprofen 200 mg oral tablet (20 sources) Histamine-1 Receptor Antagonist, Nonsteroidal Anti-inflammatory Drug Start: 09-04-2020 End: 01-15-2022 Ibuprofen-Diphenhydramine Cit (Advil Pm) 200-38 mg Tablet Discontinued 1 NMA PO AT BEDTIME September 04, 2020 12:00am January 15, 2022 10:28am docusate sodium 100 mg oral capsule (15 sources) Start: 01-27-2022 End: 05-15-2022 take 1 capsule by mouth twice daily as needed for constipation Docusate Sodium 100 mg capsule Discontinued 100 mg PO TWICE A DAY as needed for Constipation January 30, 2022 12:00am May 15, 2022 10:09am doxycycline hyclate 100 mg oral tablet (20 sources) Tetracycline-class Drug Start: 12-22-2024 End: 12-22-2024 take 1 tablet by mouth twice daily Doxycycline Hyclate 100 mg tablet Discontinued 100 mg PO TWICE A DAY December 22, 2024 12:00am December 22, 2024 1:05pm Start: 12-21-2024 take 1 capsule by mo [facility] twice daily Doxycycline Monohydrate 100 mg capsule Active 100 mg PO TWICE A DAY 20 0 December 21, 2024 12:00am Start: 08-14-2022 End: 08-24-2022 take 1 tablet by mouth twice daily doxycycline (VIBRA-TABS) 100 mg tablet Take 1 tablet by mouth twice daily for 10 days. 20 tablet 0 08/14/2022 08/24/2022 Active Start: 02-04-2022 End: 02-11-2022 take 1 capsule by mouth twice daily Doxycycline Monohydrate 100 mg capsule Discontinued 100 mg PO TWICE A DAY 14 7 0 February 04, 2022 12:00am February 10, 2022 12:00am February 11, 2022 12:03am Comment on above: Take 1 tablet by [facility] twice daily for 10 days. famotidine 20 mg oral tablet (1 source) Histamine-2 Receptor Antagonist Start: 01-27-2022 End: 01-27-2022 famotidine (PEPCID) tablet 20 mg Start: 01-27-2022 End: 01-27-2022 famotidine (PEPCID) tablet 2 0 mg fluconazole 150 mg oral tablet (13 sources) Azole Antifungal Start: 06-30-2024 End: 06-30-2024 fluconazole (DIFLUCAN) 150 mg tablet Indications: SOB (shortness of breath) , Wheeze , Acute cough , Fever, unspecified fever cause , Aches , Chills , Other chest pain Take 1 tablet by mouth one time only for 1 dose. Repeat in 3 days as needed. 8 tablet 06/30/2024 06/30/2024 Start: 02-14-2023 End: 05-26-2023 take 1 tablet by mouth once daily, then take 1 tablet by mouth once Fluconazole 150 mg tablet Discontinued 150 mg PO DAILY 2 0 February 14, 2023 12:00am May 26, 2023 9:33am Take 1 pill by mouth at start of antibiotics and 1 pill by mouth once antibiotics are finished Start: 08-14-2022 End: 08-14-2022 fluconazole (DIFLUCAN) 150 m g tablet Take 1 tablet by mouth one time only for 1 dose. Repeat in 3 days as needed. 2 tablet 0 08/14/2022 08/14/2022 Comment on above: Take 1 tablet by bob th one time only for 1 dose. Repeat in 3 days as needed. gabapentin 100 mg oral capsule (20 sources) Anti-epileptic Agent Start: 02-05-2022 End: 02-09-2023 take 1 capsule by mouth three times daily as needed for pain gabapentin (NEURONTIN) 100 mg capsule Indications: Neuritis , Acute midline low back pain without sciatica Take 1 capsule by mouth three times daily as needed (nerve pain, low back pain) for up to 30 days. 60 capsule 1 02/05/2022 02/09/2023 Discontinued (Course of therapy completed) Start: 01-27-2022 End: 01-27-2022 gabapentin (NEURONTIN) capsu le 100 mg Comment on above: Take 1 capsule by mo uth three times daily as needed (nerve pain, low back pain) for up to 30 days. hyoscyamine sulfate 0.125 mg oral tablet (1 source) Start: 0 End: 0 take 1 tablet by mouth every four hours as needed hyoscyamine (LEVSIN) 0.125 mg tablet Take 1 tablet by mouth every 4 hours as needed. 60 tablet 07/22/2019 03/02/2020 Discontinued ibuprofen 600 mg oral tablet (18 sources) Nonsteroidal Anti-inflammatory Drug Start: 2 End: 2 take 1 tablet by mouth every six hours as needed for pain Ibuprofen 600 mg tablet Discontinued 600 mg PO EVERY 6 HOURS NEEDED as needed for Pain January 30, 2022 12:00am March 13, 2022 9:54am Start: 01-27-2022 take 1 tablet by bob th every six hours as needed for pain ibuprofen (ADVIL;MOTRIN) 600 MG tablet Take 1 tablet by mouth every 6 hours as needed for Pain 60 tablet 0 01/27/2022 Active Start: 10-25-2018 End: 03-02-2020 take 1 tablet by mouth every six hours as needed for pain ibuprofen (MOTRIN) 800 mg tablet Indications: Right flank pain Take 1 tablet by mouth every 6 hours as needed for Pain. Take with food. 40 tablet 3 10/25/2018 03/02/2020 Discontinued take 1 tablet by bob th every six hours as needed for pain ibuprofen (ADVIL;MOTRIN) 200 MG tablet Take 200 mg by mouth every 6 hours as needed for Pain 0 Active inhalat.spacing dev,large ma sk (AEROCHAMBER Z-STAT PLUS-LG MSK) spcr (2 sources) Start: 08-14-2022 End: 08-20-2022 inhalat.spacing dev,large ma sk (AEROCHAMBER Z-STAT PLUS-LG MSK) spcr Indications: Bronchitis , Hoarse , Persistent cough Utilize prn with inhaler 1 Each 0 08/14/2022 08/20/2022 Discontinued Start: 08-14-2022 inhalat.spacin g dev,large mask (AEROCHAMBER Z-STAT PLUS-LG MSK) spcr Indications: Bronchitis , Hoarse , Persistent cough Utilize prn with inhaler 1 Each 0 08/14/2022 Active Comment on above: Utilize prn with inh aler inhalat.spacing dev,large mask (OPTICHAMBER EVANS LG MASK) spcr (11 sources) Start: 08-20-2022 End: 02-09-2023 inhalat.spacing dev,large mask (OPTICHAMBER EVANS LG MASK) spcr Indications: Bronchitis , Hoarse , Persistent cough USE WITH INHALER NEEDED 1 Each 0 08/20/2022 02/09/2023 Discontinued (Course of therapy completed) Start: 08-20-2022 inhalat.spacin g dev,large mask (OPTICHAMBER EVANS LG MASK) spcr Indications: Bronchitis , Hoarse , Persistent cough USE WITH INHALER NEEDED 1 Each 0 08/20/2022 Active Comment on above: USE WITH INHALER NEEDED iron carbonyl 15 mg chewable tablet (20 sources) Start: 02-06-20 End: 09-29-19 24 take 1 tablet by mouth twice daily at mealtime carbonyl iron 15 mg chew Take 1 tablet by mouth twice daily with meals. 60 tablet 2 02/05/2022 09/29/2023 Discontinued Comment on above: Take 1 tablet by bob twice daily with meals. 2 ml ketorolac tromethamine 30 mg/ml injection (3 sources) Nonsteroidal Anti-inflammatory Drug, Cyclooxygenase Inhibitor Start: 10-07-19 End: 10-07-19 keTORolac 30 mg injection (Toradol) Start: 10-06-2024 End: 10-06-2024 30 mg, INTRAMUSCULAR, ONCE, 1 dose, On Lianet 10/06/24 at 0930, Ketorolac (Toradol) is indicated for the short-term (up to 5 days) management of moderately severe acute pain. Continuation of ketorolac (Toradol) beyond 5 days increases the risk of developing serious adverse events. Please verify the duration of therapy for ketorolac (Toradol). Start: 02-02-2023 End: 02-03-2023 keTORolac 60 mg injection (T oradol) 200 actuat levalbuterol 0.045 mg/actuat metered dose inhaler (20 sources) beta2-Adrenergic Agonist Start: 04-16-2020 End: 02-02-2023 take 1-2 puff(s) by inhalation every six hours as needed for wheezing levalbuterol tartrate HFA 45 mcg/actuation inhaler Indications: Cough Inhale 1-2 Puffs as instructed every 6 hours as needed for Wheezing/Shortness of Breath. 15 g 04/16/2020 02/02/2023 Discontinued Comment on above: Inhale 1-2 Puffs as instructed every 6 h ours as needed for Wheezing/Shortness of Breath. 3 ml liraglutide 6 mg/ml pen injector (20 sources) GLP-1 Receptor Agonist Start: 04-04-2024 End: 10-06-2024 inject 0.6 mg by subcutaneous injection once daily liraglutide (VICTOZA) 0.6 mg/ 0.1 ml subcutaneous pen injector Indications: type 2 diabetes mellitus Inject 0.6 mg daily via pen 3 mL 3 04/04/2024 10/06/2024 Discontinued Start: 04-09-2017 End: 05-26-2018 inject 0.6 mg by subcutaneous injection once daily Liraglutide 0.6 MG/0.1 ML pen injector Discontinued 0.6 mg SQ DAILY April 09, 2017 1:00am May 26, 2018 3:47pm lisdexamfetamine dimesylate 20 mg oral capsule (9 sources) Central Nervous System Stimulant Start: 09-29-2023 End: 12-17-2023 take 1 capsule by mouth once daily in the morning lisdexamfetamine (VYVANSE) 20 mg capsule Indications: Impaired concentration Take 1 capsule by mouth once daily for 30 days. In the morning 30 capsule 0 11/17/2023 11/26/2023 Discontinued Magnesium (20 sources) Start: 07-02-2016 End: 05-26-2018 take 500 mg by mouth once daily Magnesium Discontinued 500 MG PO DAILY July 02, 2016 3:34pm May 26, 2018 3:46pm Start: 07-02-2016 End: 05-26-2018 take 1 tablet by mouth once daily Magnesium tablet Discontinued 500 mg PO DAILY July 02, 2016 1:00am May 26, 2018 3:46pm Start: 07-02-2016 End: 05-26-2018 take 500 mg by mouth once daily Magnesium Discontinued 500 MG PO DAILY July 02, 2016 12:00am May 26, 2018 2:46pm Start: 07-02-2016 End: 05-26-2018 take 500 mg by mouth once daily Magnesium Discontinued 500 MG PO DAILY July 02, 2016 1:00am May 26, 2018 3:46pm magnesium oxide 250 mg oral tablet (20 sources) Start: 06-30-2022 End: 09-29-2023 take 1 tablet by mouth once daily at bedtime Magnesium Oxide 250 mg magnesium tab Indications: Magnesium deficiency Take 1 tablet by mouth daily at bedtime. 30 tablet 11 06/30/2022 09/29/2023 Discontinued Start: 05-09-2020 End: 06-30-2022 take 1 tablet by mouth once daily magnesium oxide (MAG-OX) 400 mg (241.3 mg magnesium) tablet Indications: Vitamin D deficiency Take 1 tablet by mouth once daily. 90 tablet 1 01/07/2021 06/30/2022 Discontinued Start: 12-08-2019 End: 03-02-2020 take 1 tablet by mouth once daily magnesium oxide (MAG-OX) 400 mg (241.3 mg magnesium) tablet Take 1 tablet by mouth once daily. 90 tablet 1 12/08/2019 03/02/2020 Discontinued Comment on above: Take 1 tablet by bob th once daily. Take 1 tablet by bob th daily at bedtime. Minoxidil (13 sources) Arteriolar Vasodilator Start: 03-13-2022 End: 02-14-2023 Minoxidil 5 % solution Discontinued 1 mL TOPICAL TWICE A DAY 120 6 March 13, 2022 1:00am February 14, 2023 5:41am Start: 03-13-2022 End: 02-14-2023 Minoxidil 5 % solution Disco ntinued 1 mL TOPICAL TWICE A DAY 120 March 13, 2022 1:00am February 14, 2023 5:41am Start: 03-13-2022 End: 02-14-2023 apply 1 mL topically twice daily Minoxidil Discontinue d 1 ML TOPICAL TWICE A DAY 120 March 13, 2022 12:00am February 14, 2023 4:41am Start: 03-13-2022 End: 02-14-2023 apply 1 mL topically twice daily Minoxidil Discontinue d 1 ML TOPICAL TWICE A DAY 120 March 13, 2022 1:00am February 14, 2023 5:41am Start: 03-13-2022 apply 1 mL topically twice [place] [facility] Minoxidil Active 1 ML TOPICAL TWICE A DAY 120 March 13, 2022 1:00am Start: 03-13-2022 apply 1 mL topically twice [place] [facility] Minoxidil Active 1 ML TOPICAL TWICE A DAY 120 March 13, 2022 12:00am Naltrexone (20 sources) Opioid Antagonist Start: 04-04-2024 End: 10-06-2024 take 1 tablet by mouth once daily naltrexone 2 mg tablet Indications: Anxiety disorder, unspecified type Take 1 tablet by mouth once daily. 90 tablet 3 04/04/2024 10/06/2024 Discontinued Start: 04-04-2024 take 1 tablet by bob th once daily naltrexone 2 mg tablet Indications: Anxiety disorder, unspecified type Take 1 tablet by mouth once daily. 90 tablet 3 04/04/2024 Active Start: 01-19-2024 End: 04-04-2024 take 1 capsule by mouth once daily naltrexone 0.5 mg capsule (CPD) Indications: Arthralgia, unspecified joint , Myalgia Take 1 capsule by mouth once daily. To add to the 2 mg dose daily 30 capsule 2 01/19/2024 04/04/2024 Discontinued Start: 01-19-2024 End: 04-18-2024 take 1 capsule by mouth once daily naltrexone 0.5 mg capsule (CPD) Indications: Arthralgia, unspecified joint , Myalgia Take 1 capsule by mouth once daily. To add to the 2 mg dose daily 30 capsule 2 01/19/2024 04/18/2024 Active Start: 01-04-2024 End: 04-04-2024 take 1 tablet by mouth once daily naltrexone 2 mg tablet Indications: Anxiety disorder, unspecified type Take 1 tablet by mouth once daily. 90 tablet 1 01/04/2024 04/04/2024 Discontinued Start: 01-04-2024 take 1 tablet by bob th once daily naltrexone 2 mg tablet Indications: Anxiety disorder, unspecified type Take 1 tablet by mouth once daily. 90 tablet 1 01/04/2024 Active Start: 11-26-2023 End: 01-19-2024 take 1 capsule by mouth once daily naltrexone 0.5 mg capsule (CPD) Indications: Arthralgia, unspecified joint , Myalgia Take 1 capsule by mouth once daily. 30 capsule 2 11/26/2023 01/19/2024 Discontinued Start: 11-26-2023 End: 02-24-2024 take 1 capsule by mouth once daily naltrexone 0.5 mg capsule (CPD) Indications: Arthralgia, unspecified joint , Myalgia Take 1 capsule by mouth once daily. 30 capsule 2 11/26/2023 02/24/2024 Active nitrofurantoin, macrocrystals 100 mg oral capsule (20 sources) Nitrofuran Antibacterial Start: 02-28-2021 End: 03-07-2021 take 1 capsule by mouth twice daily at mealtime Nitrofurantoin Macrocrystal 100 mg capsule Discontinued 100 mg PO TWICE A DAY 14 7 0 February 28, 2021 12:00am March 06, 2021 1:00am March 07, 2021 1:01am administer with food (meal or snack) nitrofurantoin, macrocrystals 25 mg / nitrofurantoin, monohydrate 75 mg oral capsule (20 sources) Nitrofuran Antibacterial Start: 09-25-2020 End: 10-02-2020 take 1 capsule by mouth twice daily at mealtime Nitrofurantoin Monohyd/M-Cryst (Macrobid) 100 mg capsule Discontinued 100 mg PO TWICE A DAY 14 7 0 September 25, 2020 12:00am October 01, 2020 12:00am October 02, 2020 12:01am must administer with a meal/food norethindrone acetate 5 mg oral tablet (20 sources) Start: 06-05-2020 End: 06-25-2020 take 1 tablet by mouth three times daily, then take 1 tablet by mouth twice daily Norethindrone Acetate (Aygestin) 5 mg tablet Discontinued 5 mg PO .COMPLEX 45 0 June 05, 2020 1:00am June 25, 2020 11:12am 5 mg PO tid until bleeding stops X 24 hr then bid to finish Rx omeprazole 20 mg delayed release oral capsule (3 sources) Proton Pump Inhibitor Start: 12-03-2020 End: 08-12-2021 take 1 capsule by mouth once daily before breakfast omeprazole (PRILOSEC) 20 mg capsule Indications: Heartburn Take 1 capsule by mouth daily before breakfast. 1/2 hr before meal. While on prednisone. 30 capsule 12/03/2020 08/12/2021 Discontinued Start: 06-24-2019 End: 03-02-2020 take 1 capsule by mouth once daily omeprazole (PRILOSEC) 20 mg capsule Take 1 capsule by mouth once daily for 14 days. 14 capsule 06/24/2019 03/02/2020 Discontinued Comment on above: Take 1 capsule by mo [facility] daily before breakfast. 1/2 hr before meal. While on prednisone. oxyCODONE hydrochloride 5 mg oral tablet (15 sources) Opioid Agonist Start: End: take 1 tablet by mouth every six hours as needed for pain Oxycodone 5 mg tablet Discontinued 5 mg PO EVERY 6 HOURS NEEDED as needed for Pain January 30, 2022 12:00am March 13, 2022 9:54am microencapsulated potassium chloride 10 meq extended release oral tablet (20 sources) Start: 018 End: take 1 tablet by mouth once daily Potassium Chloride 10 MEQ tablet Discontinued 10 meq PO DAILY June 10, 2017 1:00am May 26, 2018 3:46pm promethazine hydrochloride 25 mg oral tablet (9 sources) Phenothiazine Start: 023 End: take 1 tablet by mouth three times daily as needed for nausea and vomiting Promethazine 25 mg tablet Discontinued 25 mg PO THREE TIMES A DAY as needed for nausea and vomiting 21 7 0 February 14, 2023 12:00am May 26, 2023 9:33am riboflavin 100 mg oral tablet (20 sources) Start: End: take 1 tablet by mouth once daily Riboflavin (Vitamin B2) 100 MG tablet Discontinued 100 mg PO DAILY July 02, 2016 1:00am May 26, 2018 3:46pm sucralfate 1000 mg oral tablet (1 source) Aluminum Complex Start: End: sucralfate (CARAFATE) 1 gram tablet Dissolve one tablet in 30cc water, stir and swallow 30 minutes before meals. May repeat at bedtime. 120 tablet 3 07/22/2019 03/02/2020 Discontinued tamsulosin hydrochloride 0.4 mg oral capsule (20 sources) alpha-Adrenergic Ilya Start: End: take 1 capsule by mouth once daily at bedtime tamsulosin (FLOMAX) 0.4 mg Take 1 capsule by mouth daily at bedtime for 7 days. 7 capsule 0 03/11/2023 Active Comment on above: Take 1 capsule by mo ut daily at bedtime. For kidney stones Take 1 capsule by mo ut daily at bedtime for 7 days. topiramate 50 mg oral tablet (20 sources) Start: End: Topiramate 50 MG tablet Discontinued 25 mg PO DAILY July 02, 2016 1:00am May 26, 2018 3:46pm Start: 07-02-2016 End: 05-26-2018 take 25 mg by mouth once daily Topiramate Discontinued 25 MG PO DAILY July 02, 2016 1:00am May 26, 2018 3:46pm Problems Active Problems Problem Classification Problem Date Documented Date Episodic/Chronic Acute bronchitis (1 source) Viral bronchitis; Translations: [Acute bronchitis due to other specified organisms] Episodic Adjustment disorders (1 source) Stress; Translations: [Reaction to severe stress, unspecified] Chronic Allergic reactions (4 sources) Allergy status to penicillin; Translations: [Other nonmedicinal substance allergy status] Onset: 2 Episodic Anxiety disorders (20 sources) Anxiety; Translations: [Anxiety disorder, unspecified] Onset: 7 Chronic Comment on above: buspar, counseling e ncouraged Cardiac and circulatory congenital anomalies (6 sources) Cerebrovascular disease; Translations: [Other malformations of cerebral vessels] Onset: 4 01-11-2024 Chronic Cardiac dysrhythmias (20 sources) Supraventricular tachycardia; Translations: [Supraventricular tachycardia] 09-11-2020 Chronic Cardiac dysrhythmias (20 sources) Tachycardia; Translations: [Tachycardia, unspecified] 08-09-2020 Episodic Chronic obstructive pulmonary disease and bronchiectasis (1 source) Chronic bronchitis; Translations: [Unspecified chronic bronchitis] 06-30-2024 Chronic Chronic obstructive pulmonary disease and bronchiectasis (4 sources) Bronchitis; Translations: [Bronchitis, not specified as acute or chronic] Episodic Coagulation and hemorrhagic disorders (20 sources) Hypercoagulability state; Translations: [Other primary thrombophilia] Chronic Complications of surgical procedures or medical care (20 sources) Postsurgical menopause; Translations: [Asymptomatic postprocedural ovarian failure] Onset: 2 Chronic Disorders of lipid metabolism (20 sources) Dyslipidemia; Translations: [Hyperlipidemia, unspecified] Onset: 1 Chronic Endometriosis (20 sources) Endometriosis (clinical); Translations: [Endometriosis, unspecified] Onset: 4 09-11-2020 Chronic Comment on above: NSAIDs Esophageal disorders (2 sources) Gastro-esophageal reflux disease without esophagitis; Translations: [Gastro-esophageal reflux disease without esophagitis] Onset: 2 Chronic Gastroduodenal ulcer (except hemorrhage) (20 sources) Peptic ulcer; Translations: [Peptic ulcer, site unspecified, unspecified as acute or chronic, without hemorrhage or perforation] Onset: 5 08-07-2014 Chronic Gastrointestinal hemorrhage (1 source) Blood-tinged feces; Translations: [Melena] Episodic Genitourinary symptoms and ill-defined conditions (20 sources) Increased frequency of urination; Translations: [Frequency of micturition] Onset: 3 Episodic Headache; including migraine (20 sources) Migraine; Translations: [Migraine, unspecified, not intractable, without status migrainosus] Onset: 7 10-21-2016 Chronic Immunizations and screening for infectious disease (5 sources) At risk of sexually transmitted infection ; Translations: [Contact with and (suspected) exposure to infections with a predominantly sexual mode of transmission] Onset: 5 12-22-2024 Episodic Inflammatory diseases of female pelvic organs (6 sources) Acute vaginitis; Translations: [Vaginitis and vulvovaginitis, unspecified] Episodic Influenza (1 source) Influenza due to Influenza A virus; Translations: [Influenza due to other identified influenza virus with other respiratory manifestations] 07-01-2024 Episodic Intracranial injury (20 sources) Concussion with no loss of consciousness; Translations: [Concussion without loss of consciousness, initial encounter] 11-24-2019 Episodic Menopausal disorders (20 sources) Premature menopause; Translations: [Asymptomatic premature menopause] Onset: 2 Chronic Comment on above: headaches, minimal n ight sweats Menstrual disorders (20 sources) Menometrorrhagia; Translations: [Excessive and frequent menstruation with irregular cycle] 09-11-2020 Chronic Comment on above: US WNL, intermittent , not a hormonal candidate, plan tvhbs for definitive therapy. Miscellaneous mental health disorders (4 sources) Insomnia; Translations: [Other insomnia not due to a substance or known physiological condition] Onset: 5 01-06-2025 Chronic Nutritional deficiencies (20 sources) Vitamin D deficiency; Translations: [Vitamin D deficiency, unspecified] Onset: 1 Chronic Other and ill-defined cerebrovascular disease (20 sources) Intracranial aneurysm; Translations: [Cerebral aneurysm, nonruptured] Onset: 7 10-21-2016 Chronic Comment on above: stable, monitoring, checked every 3-5 years asymptomatic. Other and ill-defined cerebrovascular disease (20 sources) Aneurysm of anterior communicating artery; Translations: [Cerebral aneurysm, nonruptured] 10-12-2019 Chronic Other and ill-defined cerebrovascular disease (20 sources) Cerebral aneurysm, nonruptured; Translations: [Cerebral aneurysm, nonruptured] Chronic Other circulatory disease (1 source) Erythromelalgia; Translations: [Erythromelalgia] 11-11-2023 Chronic Other circulatory disease (20 sources) History of paroxysmal supraventricular tachycardia; Translations: [Personal history of other diseases of the circulatory system] 06-03-2021 Episodic Comment on above: follows whg/last vis it 07/2020 Other circulatory disease (2 sources) Wheeze - rhonchi; Translations: [Other specified symptoms and signs involving the circulatory and respiratory systems] 07-05-2024 Episodic Other connective tissue disease (3 sources) Pain of bilateral hands; Translations: [Pain in right hand] Episodic Other connective tissue disease (1 source) Fibromyalgia; Translations: [Fibromyalgia] Onset: 2 Episodic Other connective tissue disease (1 source) Inflammatory neuropathy ; Translations: [Neuralgia and neuritis, unspecified] Episodic Other connective tissue disease (2 sources) Toe swelling; Translations: [Other specified soft tissue disorders] 08-10-2023 Episodic Other endocrine disorders (20 sources) Polycystic ovary syndrome; Translations: [Polycystic ovarian syndrome] Onset: 1 06-19-2010 Chronic Other endocrine disorders (6 sources) Polycystic ovarian syndrome; Translations: [Polycystic ovaries] Chronic Other endocrine disorders (20 sources) Empty sella syndrome; Translations: [Other disorders of pituitary gland] Onset: 9 09-08-2018 Chronic Other endocrine disorders (20 sources) Hyperinsulinism; Translations: [Other hypoglycemia] Onset: 4 04-04-2024 Chronic Other eye disorders (7 sources) Ptosis of eyelid; Translations: [Unspecified ptosis of unspecified eyelid] 08-31-2023 Episodic Other eye disorders (2 sources) Unspecified ptosis of unspecified eyelid; Translations: [Ptosis of eyelid, unspecified] Onset: 5 08-31-2023 Episodic Other eye disorders (3 sources) Ptosis of left eyelid; Translations: [Unspecified ptosis of left eyelid] Onset: 5 01-06-2025 Episodic Other eye disorders (1 source) Unspecified ptosis of left eyelid; Translations: [Ptosis, left eyelid] Onset: 5 Episodic Other female genital disorders (20 sources) Abnormal vaginal bleeding; Translations: [Abnormal uterine and vaginal bleeding, unspecified] 04-09-2019 Chronic Other female genital disorders (20 sources) History of gynecological disorder; Translations: [Personal history of other diseases of the female genital tract] 08-19-2021 Episodic Comment on above: if recurrent pelvic pain consider GnRH therapy or bilateral oophorectomy Other female genital disorders (10 sources) Personal history of other diseases of the female genital tract; Translations: [Personal history of other genital system and obstetric disorders] Episodic Other female genital disorders (1 source) Vaginal lesion; Translations: [Other specified noninflammatory disorders of vagina] Episodic Other female genital disorders (1 source) Other specified conditions associated with female genital organs and menstrual cycle; Translations: [Other specified conditions associated with female genital organs and menstrual cycle] Onset: 5 Episodic Other gastrointestinal disorders (20 sources) Irritable bowel syndrome; Translations: [Irritable bowel syndrome without diarrhea] Onset: 5 08-07-2014 Chronic Other gastrointestinal disorders (2 sources) Pelvic mass; Translations: [Intra-abdominal and pelvic swelling, mass and lump, unspecified site] Onset: 2 Episodic Other gastrointestinal disorders (2 sources) Intra-abdominal and pelvic swelling, mass and lump, unspecified site; Translations: [Intra-abd and pelvic swelling, mass and lump, unsp site] Onset: 2 Episodic Other hematologic conditions (20 sources) H/O: blood disorder; Translations: [Personal history of diseases of the blood and blood-forming organs and certain disorders involving the immune mechanism] 03-13-2022 Episodic Other hematologic conditions (10 sources) Personal history of diseases of the blood and blood-forming organs and certain disorders involving the immune mechanism; Translations: [Personal history of diseases of blood and blood-forming organs] Episodic Other inflammatory condition of skin (20 sources) Rosacea; Translations: [Rosacea, unspecified] Onset: 1 06-19-2010 Chronic Other lower respiratory disease (1 source) Cough; Translations: [Acute cough] Episodic Other lower respiratory disease (3 sources) Persistent cough; Translations: [Persistent cough] Episodic Other lower respiratory disease (8 sources) Dyspnea; Translations: [Shortness of breath] 06-30-2024 Episodic Other lower respiratory disease (10 sources) Wheezing; Translations: [Wheezing] 06-30-2024 Episodic Other lower respiratory disease (4 sources) Cough; Translations: [Acute cough] 06-30-2024 Episodic Other lower respiratory disease (1 source) Restrictive lung disease; Translations: [Other disorders of lung] 06-30-2024 Episodic Other nervous system disorders (20 sources) Attention and concentration deficit; Translations: [Impaired concentration] Onset: 3 Chronic Other nervous system disorders (2 sources) Ocular myasthenia; Translations: [Myasthenia gravis without (acute) exacerbation] 01-05-2025 Chronic Other nervous system disorders (2 sources) Myasthenia gravis without (acute) exacerbation; Translations: [Myasthenia gravis without (acute) exacerbation] Onset: 5 Chronic Other nervous system disorders (20 sources) Loss of sense of smell; Translations: [Anosmia] 07-31-2021 Episodic Other nervous system disorders (16 sources) Anosmia; Translations: [Disturbances of sensation of smell and taste] Episodic Other nervous system disorders (1 source) Postoperative pain ; Translations: [Other acute postprocedural pain] Episodic Other nervous system disorders (14 sources) Acute abdominal pain; Translations: [Other acute postprocedural pain] 02-07-2022 Episodic Other non-traumatic joint disorders (3 sources) Hip pain; Translations: [Pain in unspecified hip] Episodic Other non-traumatic joint disorders (5 sources) Joint pain; Translations: [Pain in unspecified joint] 08-10-2023 Episodic Other nutritional; endocrine; and metabolic disorders (20 sources) Obese class II; Translations: [Obesity, unspecified] Onset: 3 Chronic Other nutritional; endocrine; and metabolic disorders (20 sources) Metabolic syndrome X; Translations: [Metabolic syndrome] Onset: 1 01-15-2011 Chronic Other nutritional; endocrine; and metabolic disorders (20 sources) Body mass index 40+ - severely obese; Translations: [Morbid (severe) obesity due to excess calories] Onset: 7 01-04-2017 Chronic Other nutritional; endocrine; and metabolic disorders (1 source) Insulin resistance; Translations: [Insulin resistance] 10-06-2024 Chronic Other skin disorders (20 sources) Lichen sclerosus et atrophicus; 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 Rx synalarConfirmed bx 5 yr ago [facility] [place] Other skin disorders (13 sources) Telogen effluvium; Translations: [Telogen effluvium] 11-17-2022 Episodic Comment on above: minoxidil Other skin disorders (3 sources) Sebaceous cyst; Translations: [Sebaceous cyst] Onset: 5 Episodic Other skin disorders (7 sources) Telogen effluvium; Translations: [Telogen effluvium] Episodic Other skin disorders (3 sources) Infection of sebaceous cyst; Translations: [Sebaceous cyst] Onset: 5 01-06-2025 Episodic Other upper respiratory disease (3 sources) Hoarse; Translations: [Dysphonia] Episodic Other upper respiratory infections (3 sources) Sore throat symptom; Translations: [Acute pharyngitis, unspecified] Episodic Otitis media and related conditions (20 sources) Otitis media; Translations: [Otitis media, unspecified, right ear] 09-11-2020 Episodic Ovarian cyst (20 sources) Cyst of ovary; Translations: [Unspecified ovarian cyst, right side] Onset: 2 Episodic Comment on above: suspicious and refer red to Dr Camacho 6 cm simple Residual codes; unclassified (20 sources) Obstructive sleep apnea syndrome; Translations: [Obstructive sleep apnea (adult) (pediatric)] Onset: 5 08-07-2014 Chronic Residual codes; unclassified (2 sources) Obstructive sleep apnea (adult) (pediatric); Translations: [Obstructive sleep apnea (adult) (pediatric)] Onset: 2 Chronic Residual codes; unclassified (2 sources) Dependence on other enabling machines and devices; Translations: [Dependence on other enabling machines and devices] Onset: 2 Chronic Residual codes; unclassified (6 sources) Other specified postprocedural states; Translations: [Personal history of surgery to other organs] Episodic Residual codes; unclassified (10 sources) Acquired absence of both cervix and uterus; Translations: [Acquired absence of both cervix and uterus] Episodic Residual codes; unclassified (1 source) Generalized aches and pains; Translations: [Pain, unspecified] Episodic Residual codes; unclassified (14 sources) History of vaginal hysterectomy; Translations: [Acquired absence of both cervix and uterus] 09-11-2020 Episodic Residual codes; unclassified (1 source) Procedure not done; Translations: [Procedure and treatment not carried out, unspecified reason] 02-12-2023 Episodic Residual codes; unclassified (2 sources) FH: Osteoarthritis; Translations: [Family history of other diseases of the musculoskeletal system and connective tissue] 08-10-2023 Episodic Residual codes; unclassified (3 sources) FH: Rheumatoid arthritis; Translations: [Family history of arthritis] 08-10-2023 Episodic Residual codes; unclassified (4 sources) Aching pain; Translations: [Pain, unspecified] 06-30-2024 Episodic Residual codes; unclassified (4 sources) Chill; Translations: [Chills (without fever)] 06-30-2024 Episodic Sexually transmitted infections (not HIV or hepatitis) (20 sources) Human papillomavirus deoxyribonucleic acid test positive, high risk on cervical specimen; Translations: [Cervical high risk human papillomavirus (HPV) DNA test positive] 09-11-2020 Episodic Comment on above: first abnormal, havi ng hyst for other reasons. Skin and subcutaneous tissue infections (10 sources) Skin lesion; Translations: [Local infection of the skin and subcutaneous tissue, unspecified] Onset: 5 12-21-2024 Episodic Spondylosis; intervertebral disc disorders; other back problems (20 sources) Disorder of lumbar disc; Translations: [Unspecified thoracic, thoracolumbar and lumbosacral intervertebral disc disorder] Onset: 1 05-13-2010 Chronic Sprains and strains (20 sources) Strain of finger; Translations: [Strain of right middle finger] 09-11-2020 Episodic Superficial injury; contusion (20 sources) Contusion of elbow; Translations: [Contusion of left elbow, initial encounter] 09-11-2020 Episodic Syncope (20 sources) Syncope and collapse; Translations: [Syncope and collapse] 09-11-2020 Episodic Thyroid disorders (20 sources) Hypothyroidism; Translations: [Hypothyroidism, unspecified] Onset: 1 Chronic Unclassified (1 source) Obesity, Class II, BMI 35-39.9; Translations: [Obesity, Class II, BMI 35-39.9] Onset: 3 Unclassified (1 source) Insulin resistance; Translations: [Insulin resistance] Onset: 5 Unclassified (1 source) Acute cough; Translations: [Acute cough] Onset: 5 Viral infection (1 source) Disease caused by 2019-nCoV; Translations: [COVID-19] Episodic Past or Other Problems Problem Classification Problem Date Documented Da te Episodic/Chronic Abdominal pain (20 sources) Pain in pelvis; Translations: [Pelvic and perineal pain] Onset: 06-28-2012 Resolved: 03-10-2017 Episodic Comment on above: 6 cm ovarian cyst, r ecommend laparoscopic ovarian cystectomy Calculus of urinary tract (20 sources) History of calculus of kidney; Translations: [Personal history of urinary calculi] Onset: 05-13-2010 Resolved: 03-10-2017 Episodic Coagulation and hemorrhagic disorders (20 sources) Blood coagulation disorder; Translations: [Hemorrhagic condition, unspecified] Onset: 08-07-2014 08-07-2014 Episodic Diabetes mellitus without complication (20 sources) Impaired fasting glycemia; Translations: [Impaired fasting glucose] Onset: 01-14-2021 Episodic Diseases of mouth; excluding dental (20 sources) Oral lesion; Translations: [Other lesions of oral mucosa] Onset: 10-21-2016 10-21-2016 Episodic E Codes: Natural/environment (20 sources) Tick bite; Translations: [Bitten or stung by nonvenomous insect and other nonvenomous arthropods, initial encounter] Onset: 10-21-2016 Resolved: 03-10-2017 03-10-2017 Episodic Fever of unknown origin (5 sources) Fever; Translations: [Fever, unspecified] Onset: 06-30-2024 06-30-2024 Episodic Malaise and fatigue (20 sources) Fatigue; Translations: [Other fatigue] Onset: 10-21-2016 10-21-2016 Episodic Nausea and vomiting (2 sources) Nausea; Translations: [Nausea] Onset: 07-07-2024 07-07-2024 Episodic Nonspecific chest pain (20 sources) Chest pain; Translations: [Chest pain, unspecified] Onset: 06-30-2024 10-26-2020 Episodic Nutritional deficiencies (20 sources) Magnesium deficiency; Translations: [Magnesium deficiency] Onset: 06-30-2022 Episodic Other and unspecified benign neoplasm (20 sources) Dermatofibroma; Translations: [Other benign neoplasm of skin, unspecified] Onset: 06-30-2022 Episodic Other circulatory disease (1 source) Other specified symptoms and signs involving the circulatory and respiratory systems; Translations: [Rhonchi at both lung bases] Onset: 07-07-2024 Episodic Other connective tissue disease (20 sources) Muscle pain; Translations: [Myalgia, unspecified site] Onset: 10-21-2016 10-21-2016 Episodic Other connective tissue disease (20 sources) Fibromyalgia; Translations: [Fibromyalgia] Onset: 01-04-2017 01-04-2017 Episodic Other connective tissue disease (20 sources) Swelling of finger ; Translations: [Other specified soft tissue disorders] Onset: 09-30-2023 08-10-2023 Episodic Other connective tissue disease (1 source) Myalgia, unspecified site; Translations: [Myalgia] Onset: 10-21-2016 Episodic Other female genital disorders (20 sources) Cyst of uterine adnexa; Translations: [Unspecified condition associated with female genital organs and menstrual cycle] Onset: 05-12-2022 Episodic Other lower respiratory disease (20 sources) Dyspnea on exertion; Translations: [Other forms of dyspnea] Onset: 04-04-2024 04-04-2024 Episodic Other lower respiratory disease (2 sources) Wheezing; Translations: [Wheezing] Onset: 06-30-2024 Episodic Other lower respiratory disease (1 source) Shortness of breath; Translations: [SOB (shortness of breath)] Onset: 06-30-2024 Episodic Other lower respiratory disease (1 source) Other forms of dyspnea; Translations: [ORTEZ (dyspnea on exertion)] Onset: 04-04-2024 Episodic Other non-traumatic joint disorders (20 sources) Hand joint stiff; Translations: [Stiffness of unspecified hand, not elsewhere classified] Onset: 09-30-2023 09-30-2023 Episodic Other non-traumatic joint disorders (2 sources) Pain in right shoulder; Translations: [Pain in joint, shoulder region] Onset: 05-05-2024 05-05-2024 Episodic Other nutritional; endocrine; and metabolic disorders (20 sources) Body mass index 30+ - obesity; Translations: [Obesity, unspecified] Onset: 09-15-2014 Resolved: 11-18-2017 11-18-2017 Chronic Other screening for suspected conditions (not mental disorders or infectious disease) (20 sources) Increased cortisol level; Translations: [Other specified abnormal findings of blood chemistry] Onset: 09-08-2018 09-08-2018 Episodic Other skin disorders (20 sources) Loss of hair; Translations: [Nonscarring hair loss, unspecified] Onset: 05-12-2022 Episodic Pneumonia (except that caused by tuberculosis or sexually transmitted disease) (3 sources) Community acquired pneumonia; Translations: [Pneumonia, unspecified organism] Onset: 07-07-2024 07-05-2024 Episodic Residual codes; unclassified (1 source) Pain, unspecified; Translations: [Aches] Onset: 06-30-2024 Episodic Residual codes; unclassified (1 source) Chills (without fever); Translations: [Chills] Onset: 06-30-2024 Episodic Spondylosis; intervertebral disc disorders; other back problems (20 sources) Thoracic back pain; Translations: [Dorsalgia, unspecified] Onset: 05-12-2022 Episodic Unclassified (17 sources) complex migraine 11-21-2021 Unclassified (2 sources) Patient encounter status 07-05-2024 Urinary tract infections (20 sources) Urinary tract infectious disease; Translations: [Urinary tract infection, site not specified] Onset: 03-24-2023 02-14-2023 Episodic Results Test Name Value Interpretation Reference Range Facility ACHR AB Modulatingon 025 ACHR AB MODULAT 0 Normal 0-45 [facility] Comment on above: Order Comment: Test( s) [id number] Ab was developed and its performance characteristics determined by [facility]. It has not been cleared or approved by the Food and Drug Administration. Result Comment: Inte rpretive Information: Negative: 0 - 45% Positive: > 45% No single value for AChR-modulating antibody should be used as a sole basis for diagnosis or response to therapy. Performed By: #### L 3300.0600, L3410.0200, L3410.0100 #### [facility] [address] [place], [place], [address] ACHR [place] AB, Blockingon [facility] SENIOR WAREHOUSE CLERK AB 20 Normal 0-25 [facility] Comment on above: Order Comment: Test( s) [id number] Blocking Abs, Serum This test was developed and its performance characteristics determined by [facility]. It has not been cleared or approved by the Food and Drug Administration. Result Comment: Nega tive: 0 - 25 Borderline: 26 - 30 Positive: >30 Performed at: [address] [id number] Missing Persons Investigator: Margie Ferrer MD, Phone: [phone] Performed By: #### L 3300.0600, L3410.0200, L3410.0100 #### [facility] [address] [place], [address] Acetylcholine Receptoron ACHR AB < 0.07 Normal 0.00-0.24 [facility] Comment on above: Order Comment: Test( s) [id number] Blocking Abs, Serum This test was developed and its performance characteristics determined by [facility]. It has not been cleared or approved by the Food and Drug Administration. N Result Comment: Nega tive: 0.00 - 0.24 Borderline: 0.25 - 0.40 Positive: >0.40 Performed By: #### L 3300.0600, L3410.0200, L3410.0100 #### [facility] [address] [place], [place], [id number] [facility] Telephone (FAMPWS) -- SAMMY REDD ([id number]) 1980 F Date Time Provider Department 01/09/25 JOSE LUIS TOLEDO [facility] During your visit today, we recorded the following information about you: Jose Luis Toledo DO 01/09/2025 7:31 AM Signed The lab canceled her orders Orders replaced in chart Jose Luis Toledo DO Allergies As of Date: 01/09/2025 Noted Allergy Reaction ALEVE (NAPROXEN SODIUM) 04/28/2007 11 - Vomiting Comments: Ibuprofen without problems Vomiting with Aleve with one time use COMPAZINE (PROCHLORPERAZINE) 03/11/2023 1 - Mental Status Change MENTHOL 08/07/2022 2 - Rash METFORMIN 01/23/2017 8 - GI Upset MORPHINE (PF) 03/11/2023 14 - Other: See Comments Comments: Respiratory depression PENICILLINS 04/28/2007 7 - Swelling ADHESIVE 12/26/2020 2 - Rash Date Reviewed: 01/06/2025 Reviewed by: Jose Luis Toledo DO - Fully Assessed Primary Visit Diagnosis:IFG (impaired fasting glucose) [R73.01] Order(s):COMPREHENSIVE METABOLIC PANEL [SQCMP] Order #: [id number] FUTURE VITAMIN B12 [SQB12] Order #: [id number] FUTURE Prescriptions as of 01/09/2025 - Phentermine HCl (ADIPEX-P) 37.5 mg tablet Take 1 tablet by mouth once daily for 90 days. BMI 38.28 - dulaglutide (TRULICITY) 1.5 mg/0.5 mL pen injector Inject 1.5 mg subcutaneously one time a week. Inject dose once per week. Discard Pen After - sulfamethoxazole-trimethop rim (BACTRIM DS) 800-160 mg per tablet Take 1 tablet by mouth two times a day for 10 days. - traZODone (DESYREL) 50 mg tablet Take 1-2 tablets by mouth daily at bedtime. For insomnia - clonazePAM (KLONOPIN) 1 mg tablet Take 0.5-1 tablets by mouth two times a day as needed for anxiety for up to 30 days. for insomnia. - ondansetron (ZOFRAN) 8 mg tablet Take 1 tablet by mouth every 8 hours as needed for nausea/vomiting. - albuterol HFA (PROVENTIL HFA, VENTOLIN HFA) 90 mcg/actuation inhaler Inhale 2 Puffs as instructed every 4 hours as needed for wheezing/shortness of breath. - albuterol (PROVENTIL) 2.5 mg /3 mL (0.083 %) nebulizer solution Use 3 mL via nebulizer every 4 hours as needed for wheezing/shortness of breath. - albuterol HFA (PROVENTIL HFA, VENTOLIN HFA) 90 mcg/actuation inhaler Inhale 2 Puffs as instructed every 4 hours as needed for wheezing/shortness of breath. - diclofenac (VOLTAREN ARTHRITIS PAIN) 1 % topical gel Apply 2 g to affected area three times a day as needed. - tiZANidine (ZANAFLEX) 4 mg tablet Take 1 tablet by mouth every 8 hours as needed (muscle spasms). - Cholecalciferol, Vitamin D3, 125 mcg (5,000 unit) cap Take 1 capsule by mouth every morning. In addition to 1,000 international unit(s) every morning - vitamin D3-vitamin K2, MK4, 1,000-100 unit-mcg tab Take 1 tablet by mouth every morning. In addition to 5,000 units - levothyroxine (SYNTHROID) 88 mcg tablet Take 1 tablet by mouth daily before breakfast. and skip 1 day weekly. - cyanocobalamin 1,000 mcg/mL Inject 1 mL intramuscularly one time a week for 30 days, THEN 1 mL every 2 weeks for 60 days, THEN 1 mL once every month. - dextroamphetamine-amphetam ine (ADDERALL) 10 mg tablet Take 1 tablet by mouth once daily for 30 days. - triamcinolone acetonide (KENALOG) 0.5 % cream Apply 1 application to affected area daily at bedtime. On left lower leg skin lesion at ankle. Apply sparingly. Avoid face/skin fold. - Syringe with Needle, Safety (SAFETY-NAVDEEP 10CC SYR 21GX1.5) 10 mL 21 gauge x 1 1/2 syrg 1 Syringe as directed. - vitamin b complex (B COMPLETE) tab Take 1 tablet by mouth once daily. Problem List As Of Date 01/09/2025 Noted Resolved Renal calculi [N20.0] 05/13/2010 03/10/2017 Hypothyroidism, acquired [E03.9] 05/13/2010 Lumbar disc disease [M51.9] 05/13/2010 Polycystic ovary syndrome [E28.2] 06/19/2010 Rosacea [L71.9] 06/19/2010 Dysmetabolic syndrome [E88.810] 01/15/2011 Acute right flank pain [R10.9] 06/28/2012 [...] Dyslipidemia [E78.5] 01/14/2021 IFG (impaired fasting glucose) [ (more content not included)... Normal [facility] 25(OH)D3 [facility] 2024 25-hydroxyvitamin D3 [Mass/Vol] 38.6 ng/mL Normal 31.0-80.0 [facility] Comment on above: Order Comment: Speci men Type: BLOOD SPECIMENOrdering Facility: [facility] Address: [address] [place] [address] Result Comment: Clas sification of 25 [place] Vitamin D status: Deficiency/Insufficiency: < or = 30 ng/ml. Sufficiency/Optimal Levels: 31-80 ng/mL Toxicity: > 100 ng/mL. Test performed by chemiluminescent immunoassay. Performed By: #### 1 [id number] ####[facility] [id number] [address] [facility] [place] [facility] 01-06-2025 [facility] Office Visit (FAMPWS ) -- SAMMY REDD ([id number]) 1980 F Date Time Provider Department 01/06/25 9:40 AM JOSE LUIS TOLEDO [facility] During your visit today, we recorded the following information about you: Temperature Pulse Respiration Blood pressure 96.7 degrees 60/minute 16/minute 126/80 Weight 87.1 kg Jose Luis Toledo DO 01/06/2025 12:16 PM Signed CC: Sammyethan Redd is a 44 year old female who presents to the office for follow up HPI: Muscle weakness and myalgias, she Was just diagnosed with Myasthenia gravis with Neurology Dr. Oneal at [facility]- antibody levels were normal but he feels this is what she has on a clinical basis. Was told to start on pyrostigmine 60 mg to be cut in half to take twice a day. Has been noticing a lot of Ptosis.' Has a lot of situational stressors- was started on Celexa 10 mg a day about 3 months ago. Has had high anxiety and compulsive and obsessive thoughts- + fatigue, +difficulty with concentration Infected cyst, right upper thigh inner, was started on doxycycline. Was told that she can't be on this rx. Was starting to get better then worsening because wasn't able to continue this antibiotic. She is soaking and using epsom salts. Obesity, she is taking adipex with benefit, currently weight at 192 lbs. Goal to lose at least 20 more lbs. No SE with medication + insomnia, long standing, feels this is what is mostly affecting her mood. Asking for medication to try to get to sleep and stay asleep. Has been trying over the counter sleep aides with benadryl and melatonin PAST MEDICAL HISTORY Diagnosis Date Anesthesia states mom had issues in 2013 leading to air emboli after surgery. pt herself has had no issues. Anxiety Cerebral aneurysm (HCC) 2016 just watching scanned last 2021 - Dr. Oneal Complicated migraine Endometriosis 75% improvement in abdominal pain post lap surgery Fibromyalgia Hypothyroidism IBS (irritable bowel syndrome) Insulin resistance Kidney stone Lactose intolerance in adult Left thyroid nodule 12/2020 repeat thyroid US 12/2021 Low HDL (under 40) Low serum progesterone worsening symptoms with progesterone rx Lumbar disc disease 05/13/2010 Migraines CADENCE (obstructive sleep apnea) Last polysomnogram in 2012, last use in 2012 Personal history of kidney stones Polycystic ovary syndrome 06/19/2010 Protein S deficiency (HCC) 2007 clotting disorder (just had APPT drawn - in [facility]) PUD (peptic ulcer disease) 2009 treated [...] PYELOTOMY W/REMOVAL CALCULUS 04/27/2008 multiple VAGINAL HYSTERECTOMY Current Outpatient Medications Medication Sig Phentermine HCl (ADIPEX-P) 37.5 mg tablet Take 1 tablet by mouth once daily for 90 days. BMI 38.28 dulaglutide (TRULICITY) 1.5 mg/0.5 mL pen injector Inject 1.5 mg subcutaneously one time a week. Inject dose once per week. Discard Pen After sulfamethoxazole-trimethop rim (BACTRIM DS) 800-160 mg per tablet Take 1 tablet by mouth two times a day for 10 days. traZODone (DESYREL) 50 mg tablet Take 1-2 tablets by mouth daily at bedtime. For insomnia clonazePAM (KLONOPIN) 1 mg tablet Take 0.5-1 tablets by mouth two times a day as needed for anxiety for up to 30 days. for insomnia. ondansetron (ZOFRAN) 8 mg tablet Take 1 tablet by mouth every 8 hours as needed for nausea/vomiting. (Patient not taking: Reported on 10/06/2024) albuterol HFA (PROVENTIL HFA, VENTOLIN HFA) 90 mcg/actuation inhaler Inhale 2 Puffs as instructed every 4 hours as needed for wheezing/shortness of breath. albuterol (PROVENTIL) 2.5 mg /3 mL (0.083 %) nebulizer solution Use 3 mL via nebulizer every 4 hours as needed for wheezing/shortness of breath. albuterol HFA (PROVENTIL HFA, VENTOLIN HFA) 90 mcg/actuation inhaler Inhale 2 Puffs as instructed every 4 hours as needed for wheezing/shortness of breath. diclofenac (VOLTAREN ARTHRITIS PAIN) 1 % topical gel Apply 2 g to affected area three times a day as needed. tiZANidine (ZANAFLEX) 4 mg tablet Take 1 tablet by mouth every 8 hours as needed (muscle spasms). Cholecalciferol, Vitamin D3, 125 mcg (5,000 unit) cap Take 1 capsule by mouth every morning. In addition to 1,000 internat (more content not included)... Normal [facility] Comprehensive metabolic 2000 panelon 01-06-2025 Albumin [Mass/Vol] 4.6 g/dL Normal 3.9-4.9 [facility] Comment on above: Order Comment: Speci men Type: BLOOD SPECIMENOrdering Facility: [facility] Address: [address] [place] [address] Performed By: #### 2 143-6, 09333-7, 28695-9 ####[facility] LABCLIA [id number] [place] [address] [place] ALP [Catalytic activity/Vol] 78 U/L Normal 34-123 [facility] Comment on above: Order Comment: Speci men Type: BLOOD SPECIMENOrdering Facility: [facility] Address: [address] [place] [address] Performed By: #### 2 143-6, 26167-8, 91879-9 ####[facility] LABCLIA [id number] [address] [address] [place] ALT [Catalytic activity/Vol] 19 U/L Normal 7-38 [facility] Comment on above: Order Comment: Speci men Type: BLOOD SPECIMENOrdering Facility: [facility] Address: [address] [place] [address] Result Comment: Resu lts may be falsely increased due to interference from hemolysis. Suggest reorder as clinically indicated. Performed By: #### 2 143-6, 66867-2, 51839-7 ####[facility] LABCLIA [id number] [place] [address] [place] Anion gap [Moles/Vol] 13 mmol/L Normal 8-15 [facility] Comment on above: Order Comment: Speci men Type: BLOOD SPECIMENOrdering Facility: [facility] Address: [address] [place] [address] Performed By: #### 2 143-6, 54872-4, 86510-4 ####[facility] LABCLIA [id number] [place] [address] [place] AST [Catalytic activity/Vol] 31 U/L Normal 13-35 [facility] Comment on above: Order Comment: Speci men Type: BLOOD SPECIMENOrdering Facility: [facility] Address: [address] [place] [address] Result Comment: Resu lts may be falsely increased due to interference from hemolysis. Suggest reorder as clinically indicated. Performed By: #### 2 143-6, 82796-1, 19241-6 ####[facility]CLIA [id number] [place] [address] [place] Bilirubin [Mass/Vol] 0.4 mg/dL Normal 0.2-1.3 [facility] Comment on above: Order Comment: Speci men Type: BLOOD SPECIMENOrdering Facility: [facility] Address: [address] [place] [address] Performed By: #### 2 143-6, 38082-7, 91070-8 ####[facility] LABCLIA [id number] [place] [id number] [place] Calcium [Mass/Vol] 9.6 mg/dL Normal 8.5-10.2 [facility] Comment on above: Order Comment: Speci men Type: BLOOD SPECIMENOrdering Facility: [facility] Address: [address] [place] [address] Performed By: #### 2 143-6, 25907-2, 11086-5 ####[facility] LABCLIA [id number] [place] [address] [place] Chloride [Moles/Vol] 105 mmol/L Normal 98-107 [facility] Comment on above: Order Comment: Speci men Type: BLOOD SPECIMENOrdering Facility: [facility] Address: [address] [place] [address] Performed By: #### 2 143-6, 44407-6, 22707-3 ####[facility] LABCLIA [id number] [place] [address] [place] CO2 [Moles/Vol] 24 mmol/L Normal 22-30 [facility] Comment on above: Order Comment: Speci men Type: BLOOD SPECIMENOrdering Facility: [facility] Address: [address] [place] [address] Performed By: #### 2 143-6, 32440-1, 01405-7 ####[facility] LABCLIA [id number] [place] [id number] [place] Creatinine [Mass/Vol] 0.74 mg/dL Normal 0.58-0.96 [facility] Comment on above: Order Comment: Speci men Type: BLOOD SPECIMENOrdering Facility: [facility] Address: [address] [place] [address] Performed By: #### 2 143-6, 84809-0, 78156-6 ####[facility] LABCLIA [id number] [place] [id number] [place] eGFRcr SerPlBld CKD-EPI 2020 102 mL/min/1.73m??? Normal >=60 [facility] Comment on above: Order Comment: Shane kelly Type: BLOOD SPECIMENOrdering Facility: [facility] Address: [address] [place] [address] Result Comment: Trish mated Glomerular Filtration Rate (eGFR) is calculated using the 2020 CKD-EPI creatinine equation. This equation utilizes serum creatinine, sex, and age as parameters. The creatinine assay has traceable calibration to isotope dilution-mass spectrometry. Refer to KDIGO guidelines for clinical interpretation. In patients with unstable renal function, e.g. those with acute kidney injury, the eGFR may not accurately reflect actual GFR. Performed By: #### 2 143-6, 92665-1, 74686-2 ####[facility] LABIA [id number] [place] [address] [place] Glucose [Mass/Vol] 81 mg/dL Normal 74-99 [facility] Comment on above: Order Comment: Shane kelly Type: BLOOD SPECIMENOrdering Facility: [facility] Address: [address] [place] [address] Result Comment: The [place] Diabetes Association (ADA) provides guidance for cutoff values for fasting glucose and random glucose. The ADA defines fasting as no caloric intake for at least 8 hours. Fasting plasma glucose results between 100 to 125 [...] Standards of Medical Care in Diabetes 2016, [place] Diabetes Association. Diabetes Care. 2016.39(Suppl 1). Performed By: #### 2 143-6, 66866-6, 33063-5 ####[facility] LABIA [id number] [address] [address] [place] Potassium [Moles/Vol] Normal [facility] Comment on above: Order Comment: Speci men Type: BLOOD SPECIMENOrdering Facility: [facility] Address: [address] [place] [address] Result Comment: Unab le to assay due to interference from hemolysis. Suggest reorder as clinically indicated. Performed By: #### 2 143-6, 22632-0, 70682-1 ####[facility] LABCLIA [id number] [facility] [place] [id number], [place] [address] [place] Protein [Mass/Vol] 7.3 g/dL Normal 6.3-8.0 [facility] Comment on above: Order Comment: Speci men Type: BLOOD SPECIMENOrdering Facility: [facility] Address: [address] [place] [address] Performed By: #### 2 143-6, 44151-2, ####[facility] LABCLIA [id number] [address] [place] [address] [place] Sodium [Moles/Vol] 142 mmol/L Normal 136-144 [facility] Comment on above: Order Comment: Speci men Type: BLOOD SPECIMENOrdering Facility: [facility] Address: [address] [place] [address] Performed By: #### 2 143-6, 44858-3, ####[facility] LABCLIA [id number] [address] [place] [address] [place] Urea nitrogen [Mass/Vol] 18 mg/dL Normal 7-21 [facility] Comment on above: Order Comment: Speci men Type: BLOOD SPECIMENOrdering Facility: [facility] Address: [address] [place], [place] [address] Performed By: #### 2 143-6, 40833-5, 94005-1 ####[facility] LABCLIA [id number] [facility] [place] [id number], [place] [address] [place] Cortis SerPl-mCncon 01-07-20 25 Cortisol [Mass/Vol] 7.2 ug/dL Normal 4.8-19.5 [facility] Comment on above: Order Comment: Shane leticia Type: BLOOD SPECIMENOrdering Facility: [facility] Address: [address] [place] [address] Result Comment: Prov ided reference range is from 6-10 AM sample collection time. Cortisol Reference Range: 6-10 AM = 4.8-19.5 ug/dL, 4-8 PM = 2.5-11.9 ug/dL Performed By: #### 2 143-6, 26246-1, 94154-4 ####[facility] LABCLIA [id number] [address] [address] [place] HbA1c (Bld)on 01-06-2025 Average glucose Estimated from glycated hemoglobin (Bld) [Mass/Vol] 100 mg/dL Normal [facility] Comment on above: Order Comment: Shane leticia Type: BLOOD SPECIMENOrdering Facility: [facility] Address: [address] [place] [address] Result Comment: eAG: (Estimated average glucose) is a calculated value from HgbA1c and is sales representative [employer] of the average blood glucose level in the last 2-3 month period. Performed By: #### 5 5454-3 ####[facility] LABCLIA [id number] [address] STATES OF [facility] HbA1c (Bld) [Mass fraction] 5.1 % Normal 4.3-5.6 [facility] Comment on above: Order Comment: Melvinotis kelly Type: BLOOD SPECIMENOrdering Facility: [facility] Address: [address] [place] [address] Result Comment: Amer [place] Diabetes Association guidelines indicate that patients with HgbA1c in the range 5.7-6.4% are at increased risk for development of diabetes, and intervention by lifestyle modification may be beneficial. HgbA1c greater or equal to 6.5% is considered diagnostic of diabetes. Performed By: #### 5 5454-3 ####[facility] LABCLIA [id number] [address] [address] [place] Lipid 1996 panelon 5 Cholesterol [Mass/Vol] 232 mg/dL High <200 [facility] Comment on above: Order Comment: Speci men Type: BLOOD SPECIMENOrdering Facility: [facility] Address: [address] [place] [address] Result Comment: <200 mg/dL, Desirable 200-239 mg/dL, Borderline high >239 mg/dL, High Performed By: #### 2 143-6, 18792-3, 08805-9 ####[facility] LABCLIA [id number] [facility] [place] [id number], [place] [address] [place] Cholesterol in HDL [Mass/Vol] 67 mg/dL Normal >39 [facility] Comment on above: Order Comment: Speci men Type: BLOOD SPECIMENOrdering Facility: [facility] Address: [address] [place] [address] Result Comment: 40-5 9 mg/dL, Acceptable >59 mg/dL, High: Negative risk factor for coronary heart disease <40 mg/dL, Low: Positive risk factor for coronary heart disease Performed By: #### 2 143-6, 54973-3, 01222-7 ####[facility] LABCLIA [id number] [facility] [id number], [place] [address] [place] Cholesterol in LDL [Mass/Vol] 151 mg/dL High <100 [facility] Comment on above: Order Comment: Speci men Type: BLOOD SPECIMENOrdering Facility: [facility] Address: [address] [place] [address] Result Comment: <100 mg/dL, Optimal 100-129 mg/dL, Near optimal/above optimal 130-159 mg/dL, Borderline high 160-189 mg/dL, High >189 mg/dL, Very high Secondary prevention optimal LDL Cholesterol levels are recommended to be <70 mg/dL LDL cholesterol is calculated using the Cabezas-NIH equation. Performed By: #### 2 143-6, 19567-5, 94587-7 ####[facility] LABCLIA [id number] [facility] [id number], [place] [address] [place] Cholesterol in LDL/Cholesterol in HDL [Mass ratio] 2.25 {ratio} Normal <2.54 [facility] Comment on above: Order Comment: Speci men Type: BLOOD SPECIMENOrdering Facility: [facility] Address: [address] [place] [address] Result Comment: Basia wesley: 1. National Cholesterol Education Program ATP III Guideline At-A-Glance Quick Desk Reference: National Heart, Lung, and Blood [place]. National Institutes of Health. 2001: NIH Publication No. 01-3305. 2. An International Atherosclerosis Society position paper: global recommendations for the management of dyslipidemia: executive summary, Atherosclerosis. 2014: 232(2):410-413. Performed By: #### 2 143-6, 08756-9, 81183-9 ####[facility] LABCLIA [id number] [place] [address] [place] Cholesterol in VLDL [Mass/Vol] 15 mg/dL Normal <30 [facility] Comment on above: Order Comment: Speci men Type: BLOOD SPECIMENOrdering Facility: [facility] Address: [address] [place] [address] Performed By: #### 2 143-6, 21011-8, 79806-3 ####[facility] LABIA [id number] [place] [address] [place] Cholesterol non HDL [Mass/Vol] 165 mg/dL High <130 [facility] Comment on above: Order Comment: Melvini leticia Type: BLOOD SPECIMENOrdering Facility: [facility] Address: [address] [place] [address] Result Comment: <130 mg/dL, Optimal 130-159 mg/dL, Near optimal/above optimal 160-189 mg/dL, Borderline high 190-219 mg/dL, High >219 mg/dL, Very high Secondary prevention optimal non HDL Cholesterol levels are recommended to be <100 mg/dL Performed By: #### 2 143-6, 71216-7, 05148-4 ####[facility] LABCLIA [id number] [address] [address] [place] Cholesterol.total/Chol esterol in HDL [Mass ratio] 3.46 {ratio} Normal <5.10 [facility] Comment on above: Order Comment: Speci men Type: BLOOD SPECIMENOrdering Facility: [facility] Address: [address] [place] [address] Performed By: #### 2 143-6, 13231-8, 41526-6 ####[facility] LABCLIA [id number] [place] [address] [place] FASTING TIME 13 hrs Normal [facility] Comment on above: Order Comment: Speci men Type: BLOOD SPECIMENOrdering Facility: [facility] Address: [address] [place] [address] Performed By: #### 2 143-6, 41270-6, 28708-2 ####[facility] LABCLIA [id number] [place] [address] [place] Triglyceride [Mass/Vol] 82 mg/dL Normal <150 [facility] Comment on above: Order Comment: Speci men Type: BLOOD SPECIMENOrdering Facility: [facility] Address: [address] [place] [address] Result Comment: <150 mg/dL, Normal 150-199 mg/dL, Borderline high 200-499 mg/dL, High >499 mg/dL, Very high Performed By: #### 2 143-6, 19554-6, 43697-2 ####[facility] LABCLIA [id number] [place] [address] [place] Magnesium SerPl-mCncon 01-06 Magnesium [Mass/Vol] 2.2 mg/dL Normal 1.7-2.3 [facility] Comment on above: Order Comment: Speci men Type: BLOOD SPECIMEN [facility]ing Facility: [facility] Address: [address] [place] [address] Performed By: #### 1 989-3 #### [facility] CLIA [id number] [address] [place] [address] [place] T3Free SerPl-mCncon 01-07-20 25 Free T3 [Mass/Vol] 2.8 pg/mL Normal 2.3-4.1 [facility] Comment on above: Order Comment: Speci men Type: BLOOD SPECIMEN [facility]ing [facility]: [facility] Address: [address] [place] [address] Performed By: #### 1 989-3 #### [facility] CLIA [id number] [address] [place] [address] [place] T4 Free SerPl-mCncon 025 Free T4 [Mass/Vol] 1.7 ng/dL Normal 0.9-1.7 [facility] Comment on above: Order Comment: Speci men Type: BLOOD SPECIMEN [facility]ing [facility]: [facility] Address: [address] [place] [address] Performed By: #### 1 989-3 #### [facility] CLIA [id number] [address] [place] [address] [place] TSH SerPl-aCncon 01-06-2025 TSH Qn 1.540 m[IU]/L Normal 0.270-4.200 [facility] Comment on above: Order Comment: Speci men Type: BLOOD SPECIMEN [facility]ing Facility: [facility] Address: [address] [place] [address] Result Comment: If t he patient is , TSH reference range varies by gestational period: First Trimester (weeks 9-12): 0.180-2.990 mIU/L Second Trimester: 0.110-3.980 mIU/L Third Trimester: 0.480-4.710 mIU/L Deovn Lim et al. A Practical Approach for the Verifications and Determination of Site- and Trimester-Specific Reference Intervals for Thyroid Function tests in . Thyroid, 2019:29:3:412-420. Gordon Cuadra et al. 2017 Guidelines of the [place] Thyroid Association for the Diagnosis and Management of Thyroid Disease during and the . Thyroid, 2017:27:3:315-389. Performed By: #### 1 989-3 #### [facility] CLIA [id number] [address] [place], [place] [address] [place] [address] [place] VITAMIN Con 01-06-2025 VITAMIN C 50 umol/L Normal 23-114 [facility] Comment on above: Order Comment: Speci men Type: BLOOD SPECIMEN [facility]ing Facility: [facility] Address: [address] [place] [address] Result Comment: Lizeth min C concentrations lower than 11 umol/L indicate deficiency. Concentrations between 11 and 23 umol/L are consistent with a moderate risk of deficiency due to inadequate tissue stores. Vitamin C concentration is reported as micromoles per liter (umol/L). To convert concentration to milligrams per deciliter (mg/dL), multiply the result by 0.0176. This test was developed and its performance characteristics determined by [facility]. It has not been cleared or approved by the US Food and Drug Administration. This test was performed in a CLIA certified laboratory and is intended for clinical purposes. Performed By: [facility] [address] [place] [address] [place]ogs[place] Hand: Ry Grey MD, PhD CLIA Number: [id number] Performed By: #### V ITC #### [facility] CLIA [id number] [address] [place], [place] [id number] Neurology Visit Reporton Neurology Visit Report [facility] [address] [facility], [place] [address] OFFICE VISIT Date of Service: 01/05/25 MR#: [id number] Acct: [id number] Name: SAMMY REDD Rep #: [id number] : 1980 Provider: Dr. Juvencio jaime MD Age/Sex: 44/F Location: [facility] Status: Signed [facility] Chief Complaint: Details: Interim History: Sammy returns for follow-up. She has a history of hypothyroidism, migraine headaches, endometriosis status post hysterectomy, ovarian cysts status post bilateral oophorectomy (2021). 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 She saw a neurosurgeon at the [facility] and further evaluation with a cerebral angiogram was not felt to be warranted. The aneurysm is small. She has had serial head CTAs and no progressive enlargement of the aneurysm has been noted. She was advised to have follow-up imaging of her aneurysm every 3-5 years. She does not have any history of sudden onset headache. 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 However, on my review of these images I felt that the reported aneurysm may actually be a prominent infundibulum with 2 anterior communicating artery branches emanating from it to connect with the left anterior cerebral artery rather than an aneurysm. 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 On my review of the images noted definite aneurysm was noted. She has had migraine headaches since she was 11 years old. Her headaches as global headaches with associated photophobia, phonophobia, and sometimes nausea and vomiting. Individual headaches may last up to 2 days. In the past, severe headaches had occurred about once per year. Since her visit in August 2023, her severe migraine headaches have diminished in frequency and she has not had severe headaches since 2023. Mild headaches occur about 1 day/week. Twice over the course of her lifetime, she has had episodes of left facial droop and left arm weakness occurring with her headaches that resolved when her headaches resolved after 2 days; These were felt to be complex migraine headaches. She has had flashing scintillations and blurring of vision preceding her headaches, at times. She denied having numbness. Fioricet, prescribed by her PCP, is of benefit for her headaches. Zzyc-xcs-gwxftuo ibuprofen and acetaminophen are of benefit for her milder headaches. She at times is also concurrently taking Benadryl and this has been of benefit for her headaches. Topiramate was not of benefit for headache prophylaxis and caused tiredness. Emotional stress and her prior menses have been triggers for her headaches. On prior evaluation she was found to have a protein S deficiency. She is not on daily anticoagulant or antiplatelet therapy however, she stated, a program evaluation consultant recommended that she be treated with Lovenox prior to any surgical procedures, and she has followed this recommendation. Her evaluation for protein S deficiency was initiated after having heavy vaginal bleeding following the delivery of one of her children in years past. She has had 5 miscarriages. A repeat hypercoagulable work-up in July 2021 revealed mild elevations of her complement C3, complement C4, complement CH50 and ESR. She stated that her ESR has been elevated on several past evaluations as well. A C3, CH50, and ESR rechecked in December 2021 were normal; a C4 checked at that time was slightly elevated. She has had anosmia since around 2018. She has intermittent decreases in her taste sensation. 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 Within her occupation, she is frequently exposed to strong chemicals. She had a concussion in 2019 when she fell back while seated in a chair and struck her head; her period of loss of consciousness was about 1 second. She has been having intermittent episodes of mild left eye ptosis that occurs if she is tired or under stress. She also notes her ptosis at times occurring with her headaches. She denied having diplopia except occasionally at times when she has severe headaches; she has not had further diplopia within recent months. She denied having masseter claudication, dysphagia, weakness in the extremities or shortness of breath. Acetylcholine receptor blocking antibody and acetylcholine receptor modulating antibody were negative. 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 She received new glasses with bifocals. Physical Exam: Neuro: The patient is awake and alert and responds appropriately; m (more content not included)... Normal [facility] Chlamydia/GC SHANE aptimaon CHLAMY,NUC ACID Negative Normal Negative [facility] Comment on above: Performed By: #### L , #### [facility] [address] [place], [place], [id number] GC BY NUC ACID Negative Normal Negative [facility] Comment on above: Result Comment: Perf ormed at: =G - [facility] [address]Abdullahi shannon Maurilio [id number] Missing Persons Investigator: Arin Marquez MD, Phone: [phone] Performed By: #### L 0.1800, #### [facility] [address] [place], [place], [id number] HSV 1 AND 2 IgGon 12-24-2024 HSV 1 IgG Non-Reactive Normal Non Reactive [facility] Comment on above: Result Comment: Pl ease note reference interval change HSV-1 IgG testing performed using the [employer] Ele[employer]ys HSV-1 IgG assay. Performed By: #### L 3890.6102, L3890.6006, L3890.6301, L3400.1610, L509.8002 ####[facility] [address] [facility]. [place], [place], [id number] HSV 2 IgG Non-Reactive Normal Non Reactive [facility] Comment on above: Result Comment: Pl ease note reference interval change Current guidelines and recommendations do not recommend routine screening for HSV-2 in asymptomatic individuals, including those that are . The detection of HSV-2 IgG antibodies in a single sample indicates previous exposure to HSV-2 but does not give information as to the site of HSV infection or the timing of exposure. The predictive value of positive and negative results depends on the population's prevalence and the pretest likelihood of HSV-2. HSV-2 IgG testing performed using the [employer] Elecsys HSV-2 IgG assay. Performed at: [address] [id number] Missing Persons Investigator: Jnes Jenkins PhD, Phone: [phone] Performed By: #### L 3890.6102, L3890.6006, L3890.6301, L3400.1610, L509.8002 ####[facility] [address] [facility]. [place], [place], [address] Urine Cultureon 12-23-2024 URC Culture exhibits no growth. Normal [facility] Comment on above: Performed By: #### L 7000.1800, M100.2200 #### [facility] [address] [facility] [place], [place], [address] Chlamydia trachomatis rRNA d etection by probe and target amplification methodOrdered By: Beth Valenzuela on 12-22-2024 C. trachomatis rRNA SHANE+probe Ql (Unsp spec) Negative Negative [facility] HIVon 12-22-2024 HIV Non-Reactive Normal Nonreactive [facility] Comment on above: Result Comment: Non- Reactive Reactive Repeatedly reactive samples must be confirmed according to CDC recommended confirmatory algorithms. The subresults for either HIVAG or AHIV can be used as an aid in the selection of the confirmation algorithm for reactive samples. [facility]. Order the HIV antibody detection and differentiation: #[id number] Performed By: #### L 3890.6102, L3890.6006, L3890.6301, L3400.1610, L509.8002 ####[facility] [address] [facility] [place], [place], [address] Hepatitis C Antibodyon 12-22 Hepatitis C Ab Non-Reactive Normal Nonreactive [facility] Comment on above: Result Comment: Reac tive: Presumptive evidence of antibodies to HCV. Follow CDC recommendations for supplemental testing. Non-Reactive: Antibodies to HCV were not detected; does not exclude the possibility of exposure to HCV Reactive Results are presumptive evidence of antibodies to HCV. Follow CDC recommendations for supplemental testing. Order confirmation testing: HCV Quant by PCR testing - HCVPCR #[id number] Non Reactive: < 0.8 Equivocal: >/= 0.8 to < 1.0 Reactive: >/= 1.0 The CDC requires that a reactive/equivocal HCV antibody result be sent out for confirmation. HCV Quant by PCR testing. Performed By: #### L 3890.6102, L3890.6006, L3890.6301, L3400.1610, L509.8002 ####[facility] [address] [facility] [place], [place], [id number] L3890.6102on 12-22-2024 HEP B Surf Ag Non-Reactive Normal Nonreactive [facility] Comment on above: Result Comment: Reac tive: Presumptive evidence of HBV. Repeatedly reactive samples must be confirmed using a neutralization test (Elecsys HBsAg Confirmatory Test) Non-Reactive: HBsAg not detected; does not exclude the possibility of exposure to HBV Performed By: #### L 3890.6102, L3890.6006, L3890.6301, L3400.1610, L509.8002 ####[facility] [address] [place], [address] Laboratory - Chemistry and C hemistry - challengeOrdered By: Beth Valenzuela on 12-22-2024 Bilirubin Ql (U) Negative [facility] Glucose Ql (U) Negative [facility] Ketones Ql (U) Small (15+) [facility] pH (U) 6 [pH] [facility] Specific gravity (U) [Rel density] 1.020 [facility] Urobilinogen (U) [Mass/Vol] Negative [facility] Laboratory - Hematology and Cell countsOrdered By: Beth Valenzuela on 12-22-2024 Hemoglobin Ql (U) Negative [facility] Laboratory - Microbiology an d Antimicrobial susceptibilityOrdered By: Beth Valenzuela on 12-22-2024 HBV surface Ag Ql (S) Non-Reactive Nonreactive [facility] Comment on above: Reactive: Presumptiv e evidence of HBV. Repeatedly reactive samples must be confirmed using a neutralization test (Ele[employer]ys HBsAg Confirmatory Test)Non-Reactive: HBsAg not detected; does not exclude the possibility of exposure to HBV Laboratory - Specimen inform ationOrdered By: Beth Valenzuela on 12-22-2024 Clarity (U) Cloudy [facility] Color (U) Yellow [facility] Laboratory - UrinalysisOrder ed By: Beth Valenzuela on 12-22-2024 Nitrite Ql (U) Positive [facility] Protein Ql (U) Negative [facility] Neisseria gonorrhoeae nuclei c acid detection by amplified probe techniqueOrdered By: Beth Valenzuela on 12-22-2024 N. gonorrhoeae DNA SHANE+probe Ql (Unsp spec) Negative Negative [facility] Comment on above: Performed at: =[facility]on [facility] norris [address] [id number] Director: Arin Marquez MD, Phone: [phone] No Panel InformationOrdered By: Beth Valenzuela on 12-22-2024 HIV (1&2) Antibody Non-Reactive Nonreactive [facility] Comment on above: Non-ReactiveReactive Repeatedly reactive samples must be confirmed according to CDC recommended confirmatory algorithms. The subresults for either HIVAG or AHIV can be used as an aid in the selection of the confirmation algorithm for reactive samples.Send out specimens with Reactive results to [facility] for confirmation.Order the HIV antibody detection and differentiation: #[id number] POC Bacterial Vaginitis (Rapid) Negative [facility] POC Trichomonas (Rapid) Negative [facility] Urine Leukocytes Positive [facility] Urine Non-Hemolyzed Blood [facility] Field Operations Farm Manager Office Visit Reporton 12-22-2024 Field Operations Farm Manager Office Visit Report [facility] [address], [address] [place] [address] OFFICE VISIT Date of Service: 12/22/24 MR#: [id number] Acct: [id number] Name: SAMMY REDD Rep #: [id number] : 1980 Provider: ANDREW Bruce Age/Sex: 44/F Location: 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 Required: No Is patient in pain?: No Allergies Penicillins Allergy (Severe, Verified 12/22/24 13:04) Anaphylaxis adhesive Allergy (Verified 12/22/24 13:04) Rash Medications ???Medication ???Instructions ???Recorded ???Confirmed ???Type lorazepam 0.5 mg tablet 0.5 mg PO DAILY PRN PRN Anxiety 12/22/24 History levothyroxine 88 mcg capsule 88 mcg PO MOTUWETHFRSA 08/23/20 History tizanidine 2 mg tablet 2 mg PO QHS PRN MUSCLE SPASMS 06/2512/22/24 History betamethasone valerate 0.1 % 1 applic topical BID PRN itching 0 05/26/23 12/22/24 Rx topical ointment #45 grams vitamin B complex 1 tab PO DAILY 05/26/23 12/22/24 H istory doxycycline monohydrate 100 mg 100 mg PO BID #20 caps 12/21/24 Rx capsule Post menopausal: No Patient : No : No PFSH Medical History Infected lesion of skin GERD (gastroesophageal reflux disease) History of kidney stones Hypoglycemia Hormone deficiency High triglycerides High cholesterol History of gallstones History of chronic bronchitis History of breast lump History of UTI Asthma Arthritis Seasonal allergies Mid back pain on left side Urinary frequency Protein S deficiency Hx of protein S deficiency History of IBS Ulcer History of fatty infiltration of liver Non-smoker CPAP (continuous positive airway pressure) dependence Restless legs Injury of head and neck Family history of brain aneurysm Hx of echocardiogram History of PSVT (paroxysmal supraventricular tachycardia) History of loss of consciousness Fibromyalgia Chest pain Tachycardia Thyroid nodule IBS (irritable bowel syndrome) CADENCE (obstructive sleep apnea) Hypothyroidism History of PCOS Intervertebral disc degeneration Empty sella complex migraine Back pain Limb weakness Brain aneurysm Thyroid disease Migraines Fatigue Stomach ulcer Surgical History S/P oophorectomy H/O ovarian cystectomy H/O ovarian cystectomy History of endometrial ablation H/O bilateral salpingectomy History of total vaginal hysterectomy (TVH) Hx of dilation and curettage History of cholecystectomy History of extraction of renal calculus Sagamore teeth extracted History of appendectomy Family History Grandmother Hypertension Brother Diabetes Grandfather CVA (cerebral vascular accident) Alcoholism Bleeding disorder DVT (deep venous thrombosis) Father Hypertension Anxiety Arthritis Bowel disease Depression High cholesterol Thyroid disorder Mother Supraventricular tachycardia Anesthesia complication Anxiety Angina pectoris Arthritis Rheumatoid arthritis Bowel disease Breast cancer Depression Myocardial infarction Heart disease High cholesterol Hypertension Kidney disease Thyroid disorder Social History Smoking Status: Never smoker alcohol intake: current alcohol intake frequency: holidays/special occasions only details: social substance use type: does not use diet: other caffeine: Yes what type of physical activity do you participate in: walking and weight training frequency: 3-4 times per week seatbelt use: always do you feel safe at home: Yes History 5 Elective abortions Hx Para 2 Spontaneous abortions 3 Hx # Term Pregnancies 2 Ectopic pregnancies Hx # Pregnancies Multiple births # of living children 2 Past Pregnancies Del. Date Name GA/Weeks Outcome Route Bth Weight [facility] Unknown Magdalena 2002 Unknown Darron 2009 HPI Encounter for routine gynecological examination Details: SAMMY REDD is a 44 year old who presents for annual exam. Has concerns for possible unfaithfulness from her ; would like to have STD testing completed today. Not currently s ymptomatic. History of lichens; not currently symptomatic-dermatology treats; recent steroids. Also has complaint of frequency of urination. Denies dysuria, hematuria. Would like to have urine checked. Last PAP: prior to hyst; 2021. normal and HPV neg History of abno (more content not included)... Normal [facility] Serum herpes simplex virus 2 antibody assay by immunoassay (units/volume)Ordered By: Beth Valenzuela on 12-22-2024 HSV 2 Ab IA Qn (S) Non-Reactive Non Reactive [facility] Comment on above: Please note refere nce interval changeCurrent guidelines and recommendations do not recommendroutine screening for HSV-2 in asymptomatic individuals,including those that are . The detection of HSV-2IgG antibodies in a single sample indicates previousexposure to HSV-2 but does not give information as to thesite of HSV infection or the timing of exposure. Thepredictive value of positive and negative results dependson the population's prevalence and the pretest likelihoodof HSV-2. HSV-2 IgG testing performed using the [employer] HSV-2 IgG assay.Performed at: [address] Director: Jens Jenkins PhD, Phone: [phone] Syphilis Antibodieson 2024 Syphilis Abs Non-Reactive Normal Nonreactive [facility] Comment on above: Performed By: #### L 3890.6102, L3890.6006, L3890.7829, L3400.1610, L527.0093 ####[facility] [address] [place], [place], [id number] Urine cultureOrdered By: Faraz Valenzuela on 12-22-2024 Bacteria identified Cx Nom (U) Culture exhibits no growth. [facility] Urgent Care Visit Reporton 0 12-21-2024 Urgent Care Visit Report [facility] [address], [address] [place] [address] OFFICE VISIT Date of Service: 12/21/24 MR#: [id number] Acct: [id number] Name: SAMMY REDD Rep #: [id number] : 1980 Provider: SERENA Gregory Age/Sex: 44/F Location: [facility] Status: Signed Intake Vital Signs 01/11/24 08:19 12/21/24 16:23 Height 5 ft 5 ft Weight: 202 lb 195 lb BMI 39.4 38.0 BP 104/70 110/64 Blood Pressure Location Lt brachial Lt brachial Position Sitting Sitting Respiration 16 16 Pulse 73 86 Pulse Source Monitor NIBP Temp 98.0 F 98.4 F Temp Source Temporal Oral Pulse Oximetry (%) 96 99 Oxygen Delivery Method room air room air Intake Visit Reasons: LUMP ON R THIGH Chief Complaint: right inner thigh lump Child & Adolescent Psychiatrist Required: No Is patient in pain?: Yes Allergies Penicillins Allergy (Severe, Verified 12/21/24 16:42) Anaphylaxis adhesive Allergy (Verified 12/21/24 16:42) Rash Medications ???Medication ???Instructions ???Recorded ???Confirmed ???Type lorazepam 0.5 mg tablet 0.5 mg PO DAILY PRN PRN Anxiety 05/26/23 History levothyroxine 88 mcg capsule 88 mcg PO MOTUWETHFRSA 08/23/20 History tizanidine 2 mg tablet 2 mg PO QHS PRN MUSCLE SPASMS 06/2505/26/23 History betamethasone valerate 0.1 % 1 applic topical BID PRN itching 0 05/26/23 05/26/23 Rx topical ointment #45 grams vitamin B complex 1 tab PO DAILY 05/26/23 05/26/23 H istory doxycycline monohydrate 100 mg 100 mg PO BID #20 caps 12/21/24 Rx capsule Is last menstrual period known: No Post menopausal: No Patient : No Have you fallen in the past year?: No Nurse's Note: right inner thigh lump, pain, swelling x 24 hours. also c/o MALDONADO and general fatigue. denies fever PFSH Medical History (Updated 12/21/24 @ 17:07 by Xi Zheng PA, PA) Infected lesion of skin GERD (gastroesophageal reflux disease) History of kidney stones Hypoglycemia Hormone deficiency High triglycerides High cholesterol History of gallstones History of chronic bronchitis History of breast lump History of UTI Asthma Arthritis Seasonal allergies Mid back pain on left side Urinary frequency Protein S deficiency Hx of protein S deficiency History of IBS Ulcer History of fatty infiltration of liver Non-smoker CPAP (continuous positive airway pressure) dependence Restless legs Injury of head and neck Family history of brain aneurysm Hx of echocardiogram History of PSVT (paroxysmal supraventricular tachycardia) History of loss of consciousness Fibromyalgia Chest pain Tachycardia Thyroid nodule IBS (irritable bowel syndrome) CADENCE (obstructive sleep apnea) Hypothyroidism History of PCOS Intervertebral disc degeneration Empty sella complex migraine Back pain Limb weakness Brain aneurysm Thyroid disease Migraines Fatigue Stomach ulcer Surgical History S/P oophorectomy H/O ovarian cystectomy H/O ovarian cystectomy History of endometrial ablation H/O bilateral salpingectomy History of total vaginal hysterectomy (TVH) Hx of dilation and curettage History of cholecystectomy History of extraction of renal calculus Sagamore teeth extracted History of appendectomy Family History Grandmother Hypertension Brother Diabetes Grandfather CVA (cerebral vascular accident) Alcoholism Bleeding disorder DVT (deep venous thrombosis) Father Hypertension Anxiety Arthritis Bowel disease Depression High cholesterol Thyroid disorder Mother Supraventricular tachycardia Anesthesia complication Anxiety Angina pectoris Arthritis Rheumatoid arthritis Bowel disease Breast cancer Depression Myocardial infarction Heart disease High cholesterol Hypertension Kidney disease Thyroid disorder Social History Smoking Status: Never smoker alcohol intake: current alcohol intake frequency: holidays/special occasions only details: social substance use type: does not use diet: other caffeine: Yes what type of physical activity do you participate in: walking and weight training frequency: 3-4 times per week seatbelt use: always do you feel safe at home: Yes Female Reproductive History Menstrual Ab spontaneous: 3 HPI HPI Chief Complaint: right inner thigh lump Details: SAMMY REDD, is a 44 F who presents to the office today for initial evaluation [facility] for approximately 24-hour history of right medial thigh erythematous closed lesion with localized palpable pain, swelling - w/ c/o MALDONADO and general fatigue and mild numbness/ tingling sensations distal (more content not included)... [facility] Office Visit (F[facility] ) -- SAMMY REDD ([id number]) 1980 F Date Time Provider Department 10/06/24 9:20 AM [facility] During your visit today, we recorded the following information about you: Pulse Blood pressure Weight 82/minute 126/88 89.1 kg 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 APRN.PRINTING EQUIPMENT MECHANIC APPRENTICE 10/06/2024 9:33 AM Signed 10/06/2024 Recording using [employer] Library software for draft documentation of the visit was discussed with the patient/authorized sales representative marine supplies; all questions welcomed and answered. Patient/authorized sales representative marine supplies agreed to proceed HPI: Sammy Redd is a 44-year-old female with a history of anxiety, presenting for anxiety management and medication refills. Anxiety: - Increased anxiety and panic over the past few years, worsening recently. - Ativan taken once daily, primarily for sleep; provides some relief but not complete. - Tried BuSpar, felt it worsened symptoms. - Hydroxyzine caused excessive drowsiness. - Hesitant to start daily medication due to concerns about weight gain and previous side effects. - Previous trials of Lexapro, Celexa, and Prozac; Celexa was well-tolerated. - Attends weekly counseling sessions, which are beneficial. - Stressors primarily related to marital issues; feels safe at home. Trying to stick out her marriage until youngest graduates high school which is 3 more years. - Denies depression. Migraine: - Migraine x2 days, with heaviness over the bridge of the nose and nausea. - Taking Fioricet with some relief. - Noted worsening of myasthenia gravis symptoms during migraines. Weight Loss: - Sammy has lost nearly 10 lbs over the past 3 months. - Taking Adipex and Trulicity for weight management and insulin resistance. No other concerns or complaints today. Previous Medical History PAST MEDICAL HISTORY Diagnosis Date Anesthesia states mom had issues in 2013 leading to air emboli after surgery. pt herself has had no issues. Anxiety Cerebral aneurysm (HCC) 2016 just watching scanned last 2021 - Dr. Oneal Complicated migraine Endometriosis 75% improvement in abdominal pain post lap surgery Fibromyalgia Hypothyroidism IBS (irritable bowel syndrome) Insulin resistance Kidney stone Lactose intolerance in adult Left thyroid nodule 12/2020 repeat thyroid US 12/2021 Low HDL (under 40) Low serum progesterone worsening symptoms with progesterone rx Lumbar disc disease 05/13/2010 Migraines CADENCE (obstructive sleep apnea) Last polysomnogram in 2012, last use in 2012 Personal history of kidney stones Polycystic ovary syndrome 06/19/2010 Protein S deficiency (HCC) 2007 clotting disorder (just had APPT drawn - in [facility]) PUD (peptic ulcer disease) 2009 treated [...] PYELOTOMY W/REMOVAL CALCULUS 04/27/2008 multiple VAGINAL HYSTERECTOMY Family History FAMILY HISTORY Problem Relation Age of Onset Breast Cancer Mother 39 Arthritis Mother Fibromyalgia other (irregular heartbeat) Mother Arthritis Father RA Thyroid Father Hypertension Father Thyroid Cancer Sister Diabetes Brother type 1 Diabetes Brother Type 1 Hypertension Maternal Grandmother Alzheimer's Disease Maternal Grandmother Arthritis Maternal Grandmother other (dementia) Maternal Grandmother Stroke Maternal Grandfather ADD/ADHD Daughter other (Eosinophilic esophagitis) Son other (Abdominal migraines) Son Patient Allergies ALLERGIES Allergen Reactions Aleve [Naproxen Sod* Vomiting Ibuprofen without problems Vomiting with Aleve with one time use Compazine [Prochlor* Mental Status Change Menthol Rash Metformin GI Upset Morphine (Pf) Other: See Comments Respiratory depression Penicillins Swelling Adhesive Rash Current Medications Current Outpatient Medications on File Prior to Visit Medication Sig dulaglutide (TRULICITY) 0.75 mg/0.5 mL pen injector Inject 0.75 mg subcutaneously one time a week. Inject dose once per week. Discard Pen After ondansetron (ZOFRAN) 8 mg tablet Take 1 tablet by mouth every 8 hours as needed for nausea/vomiting. albuterol HFA (PROVENTIL HFA, VENTOLIN HFA) 90 mcg/actuation inhaler Inhale 2 Puffs as in (more content not included)... Normal [facility] CT CHEST WO IVCONon 07-29-19 CT CHEST WO IVCON * * *Final Report* * * DATE OF EXAM: Jul 28 2024 9:00AM [facility] 0541 - CT CHEST WO IVCON / PROCEDURE REASON: multiple diagnoses * * * * Physician Interpretation * * * * EXAMINATION: CHEST CT WITHOUT CONTRAST CLINICAL HISTORY: Shortness of breath wheezing. Technique: Spiral CT acquisition of the chest from the thoracic inlet to the upper abdomen without contrast. MQ: CTCWO_6 CT Radiation dose: Integrated Dose-length product (DLP) for this visit = 391 mGy*cm CT Dose Reduction Employed: Automated exposure control(AEC) and iterative recon Comparison: Chest radiograph dated 07/07/2024 RESULT: Limitations: None. Lines, tubes, and devices: None. Lung parenchyma and airways: There is no pneumothorax or endobronchial lesion. No convincing CT evidence for pneumonia. Pleural space: There is no pleural effusion. Lower neck, lymph nodes, and mediastinum: There is a calcification seen within the left lobe of the thyroid gland (series 5, image #5). Mildly prominent soft tissue density within the anterior mediastinum likely relates to reactive thymic tissue. There are no pathologically enlarged axillary, mediastinal, or hilar lymph nodes. Heart, pericardium, and thoracic vessels: Atherosclerotic calcifications are present within the coronary arteries. The heart is normal in size. No significant pericardial effusion. Bones and soft tissues: There is no destructive bony lesion. Degenerative changes are seen within the thoracic spine. Upper abdomen: Contents are seen within the stomach. The patient is status post cholecystectomy. IMPRESSION: No acute pulmonary process is identified. No erna lymphadenopathy is seen within the chest Management Assistant: MARLON Transcribe Date/Time: Jul 28 2024 4:08P Dictated by : YOMI CASTILLO MD This examination was interpreted and the report reviewed and electronically signed by: YOMI CASTILLO MD on Jul 28 2024 4:12PM EST [id number] Normal [facility] CT Chest WO contraston 07-28 IMPRESSION: No acute pulmonary process is identified. No erna lymphadenopathy is seen within the chest Management Assistant: PSCNed Transcribe Date/Time: Jul 28 2024 4:08P Dictated by : YOMI CASTILLO MD This examination was interpreted and the report reviewed and electronically signed by: YOMI CASTILLO MD on Jul 28 2024 4:12PM EST DIVISION OF RADIOLOGY * * *Final Report* * * DATE OF EXAM: Jul 28 2024 9:00AM [facility] 0541 - CT CHEST WO IVCON / PROCEDURE REASON: multiple diagnoses * * * * Physician Interpretation * * * * EXAMINATION: CHEST CT WITHOUT CONTRAST CLINICAL HISTORY: Shortness of breath wheezing. Technique: Spiral CT acquisition of the chest from the thoracic inlet to the upper abdomen without contrast. MQ: CTCWO_6 CT Radiation dose: Integrated Dose-length product (DLP) for this visit = 391 mGy*cm CT Dose Reduction Employed: Automated exposure control(AEC) and iterative recon Comparison: Chest radiograph dated 07/07/2024 RESULT: Limitations: None. Lines, tubes, and devices: None. Lung parenchyma and airways: There is no pneumothorax or endobronchial lesion. No convincing CT evidence for pneumonia. Pleural space: There is no pleural effusion. Lower neck, lymph nodes, and mediastinum: There is a calcification seen within the left lobe of the thyroid gland (series 5, image #5). Mildly prominent soft tissue density within the anterior mediastinum likely relates to reactive thymic tissue. There are no pathologically enlarged axillary, mediastinal, or hilar lymph nodes. Heart, pericardium, and thoracic vessels: Atherosclerotic calcifications are present within the coronary arteries. The heart is normal in size. No significant pericardial effusion. Bones and soft tissues: There is no destructive bony lesion. Degenerative changes are seen within the thoracic spine. Upper abdomen: Contents are seen within the stomach. The patient is status post cholecystectomy. DIVISION OF RADIOLOGY Provider, [facility] - 07/28/2024 * * *Final Report* * * DATE OF EXAM: Jul 28 2024 9:00AM [facility] 0541 - CT CHEST WO IVCON / PROCEDURE REASON: multiple diagnoses * * * * Physician Interpretation * * * * EXAMINATION: CHEST CT WITHOUT CONTRAST CLINICAL HISTORY: Shortness of breath wheezing. Technique: Spiral CT acquisition of the chest from the thoracic inlet to the upper abdomen without contrast. MQ: CTCWO_6 CT Radiation dose: Integrated Dose-length product (DLP) for this visit = 391 mGy*cm CT Dose Reduction Employed: Automated exposure control(AEC) and iterative recon Comparison: Chest radiograph dated 07/07/2024 RESULT: Limitations: None. Lines, tubes, and devices: None. Lung parenchyma and airways: There is no pneumothorax or endobronchial lesion. No convincing CT evidence for pneumonia. Pleural space: There is no pleural effusion. Lower neck, lymph nodes, and mediastinum: There is a calcification seen within the left lobe of the thyroid gland (series 5, image #5). Mildly prominent soft tissue density within the anterior mediastinum likely relates to reactive thymic tissue. There are no pathologically enlarged axillary, mediastinal, or hilar lymph nodes. Heart, pericardium, and thoracic vessels: Atherosclerotic calcifications are present within the coronary arteries. The heart is normal in size. No significant pericardial effusion. Bones and soft tissues: There is no destructive bony lesion. Degenerative changes are seen within the thoracic spine. Upper abdomen: Contents are seen within the stomach. The patient is status post cholecystectomy. IMPRESSION IMPRESSION: No acute pulmonary process is identified. No erna lymphadenopathy is seen within the chest Management Assistant: PSCB Transcribe Date/Time: Jul 28 2024 4:08P Dictated by : YOMI CASTILLO MD This examination was interpreted and the report reviewed and electronically signed by: YOMI CASTILLO MD on Jul 28 2024 4:12PM EST [facility] Radiology Study observation (narrative) [facility] CT Chest WO contrastOrdered By: Ccf Provider on 07-28-2024 [facility] Breast imaging reportOrdered By: Joselin Pack on 07-25-2024 Study report [facility] Imaging Services [address] [place] [address] SCRN MAMM (CAD)W/CHRISTIANO BILAT MR#: [id number] Acct: [id number] Name: SAMMY REDD Rep #: [id number] : 1980 F 44 From: Efrain Pack DO PCP: Dr. Jose Luis Toledo DO Status: RE G CLI Study:SCRN MAMM (CAD)W/CHRISTIANO BILAT Date of Exa m: 07/25/24 Exam# [id number] Ordering Dr: Jose Luis Toledo DO EXAM: SCRN MAMM (CAD)W/CHRISTIANO BILAT DATE: 07/25/2024 CLINICAL HISTORY: F, Age 44 y/o , SCREENING BREAST CANCER RISK ASSESSMENT: Has not been calculated. TECHNIQUE: Bilateral screening digital breast tomosynthesis with 2D and 3D images. Computeraided detection. COMPARISON: Prior exam(s) dated 07/03/2022 and 06/11/2021. FINDINGS: TISSUE DENSITY: The breast tissue is composed of scattered area of fibroglandular density. Bilateral Breast Mammographic Findings: There are no suspicious masses, suspicious cluster of microcalcifications, architectural distortion or secondary signs of malignancy identified in either breast. BI/SCRN MAMM (CAD)W/CHRISTIANO BILAT IMPRESSION: Right Breast: BIRADS 1 NEGATIVE. Left Breast: BIRADS 1 NEGATIVE. OVERALL FINAL ASSESSMENT: BIRADS 1 NEGATIVE RECOMMENDATION: Routine annual follow-up in 1 Year A letter with findings and recommendations will be mailed to the patient. Reading Location: [id number] CC: Dr. Jose Luis Toledo DO ~ Management Assistant: Signed [facility] SCRN MAMM (CAD)W/CHRISTIANO BILATo n 07-25-2024 SCRN MAMM (CAD)W/CHRISTIANO BILAT [facility] Imaging Services [address] [place] [id number] SCRN MAMM (CAD)W/CHRISTIANO BILAT MR#: [id number] Acct: [id number] Name: SAMMY REDD Rep #: [id number] : 1980 F 44 From: Joselin Snyder PCP: Dr. Jose Luis Toledo DO Status: REG CLI Study: SCRN MAMM (CAD)W/CHRISTIANO BILAT Date of Exam: 06/27 05/21 Exam# [id number] Ordering Dr: Jose Luis Toledo DO EXAM: SCRN MAMM (CAD)W/CHRISTIANO BILAT DATE: 07/25/2024 CLINICAL HISTORY: F, Age 44 y/o , SCREENING BREAST CANCER RISK ASSESSMENT: Has not been calculated. TECHNIQUE: Bilateral screening digital breast tomosynthesis with 2D and 3D images. Computer aided detection. COMPARISON: Prior exam(s) dated 07/03/2022 and 06/11/2021. FINDINGS: TISSUE DENSITY: The breast tissue is composed of scattered area of fibroglandular density. Bilateral Breast Mammographic Findings: There are no suspicious masses, suspicious cluster of microcalcifications, architectural distortion or secondary signs of malignancy identified in either breast. BI/SCRN MAMM (CAD)W/CHRISTIANO BILAT IMPRESSION: Right Breast: BIRADS 1 NEGATIVE. Left Breast: BIRADS 1 NEGATIVE. OVERALL FINAL ASSESSMENT: BIRADS 1 NEGATIVE RECOMMENDATION: Routine annual follow-up in 1 Year A letter with findings and recommendations will be mailed to the patient. Reading Location: [id number] CC: Dr. Jose Luis Toledo DO Management Assistant: Signed [facility] 07-12-2024 [facility] Telephone (FAMPWS) -- SAMMY REDD ([id number]) 1980 F Date Time Provider Department 07/12/24 [facility] During your visit today, we recorded the following information about you: Giana Alicea MA 07/12/2024 7:19 AM Signed Please see pt message Hello, just checking if my kidney function is ok? I seen that my eGFR test is low. Is that possibly due to the pneumonia? I'm still not feeling well. Breathing alittle better but still having breathing attacks out of now where. Just making sure this isn't something I need to be super concerned about. Having middle back pain is why she checked my urine and blood test for kidneys. You said to check in with you when I was in to see you. Thanks! Jose Luis Toledo DO 07/13/2024 1:03 PM Signed Please let her know that her recent labs and UA show no signs of kidney disease or concern. Her chest xray was also normal If still having any lung symptoms, we will need to do a CT chest Jose Luis Toledo Giana Starkey MA 07/13/2024 1:15 PM Signed Pt informed via [employer] message BAILEE [place], MA 07/14/2024 7:46 AM Signed Please see pt reply- I'm doing alittle better still having a hard time breathing. Still having mid to upper back pain and stabbing pain. Could you please put order in for ct. Thank you! 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 APRN.CNP 07/14/2024 8:[address] ordered. Please schedule. Thank you, RICARDO Sheriff Alyson Taylor, APRN.CNP 07/14/2024 8:01 AM Signed Addended by: BRANDI QUINTEROS on: 07/14/2024 08:01 AM Modules accepted: Nanci Garcia 07/14/2024 11:05 AM Signed Spoke with patient and scheduled. Nanci Gruber Allergies As of Date: 07/12/2024 Noted Allergy Reaction ALEVE (NAPROXEN SODIUM) 04/28/2007 11 - Vomiting Comments: Ibuprofen without problems Vomiting with Aleve with one time use COMPAZINE (PROCHLORPERAZINE) 03/11/2023 1 - Mental Status Change MENTHOL 08/07/2022 2 - Rash METFORMIN 01/23/2017 8 - GI Upset MORPHINE (PF) 03/11/2023 14 - Other: See Comments Comments: Respiratory depression PENICILLINS 04/28/2007 7 - Swelling ADHESIVE 12/26/2020 2 - Rash Date Reviewed: 07/07/2024 Reviewed by: Dee Flores APRN.PRINTING EQUIPMENT MECHANIC APPRENTICE - Fully Assessed Reason for Visit: Patient Update [1014] Patient Question [1910] Primary Visit Diagnosis:SOB (shortness of breath) [R06.02] Other Visit Diagnoses:Wheeze [R06.2] Wheezing [R06.2] Order(s):CT CHEST WO NATHALIAON [[id number]] Order #: [id number] FUTURE Prescriptions as of 07/14/2024 - ondansetron (ZOFRAN) 8 mg tablet Take 1 tablet by mouth every 8 hours as needed for nausea/vomiting. - predniSONE (DELTASONE) 10 mg tablet Take 4 tabs daily for 3 days, then 2 tabs daily for 3 days, then 1 tab daily for 3 days with food. - LORazepam (ATIVAN) 1 mg tablet Take 1 tablet by mouth two times a day as needed for anxiety for up to 90 days. - Phentermine HCl (ADIPEX-P) 37.5 mg tablet Take 1 tablet by mouth once daily for 30 days. BMI 38.28 - albuterol HFA (PROVENTIL HFA, VENTOLIN HFA) 90 mcg/actuation inhaler Inhale 2 Puffs as instructed every 4 hours as needed for wheezing/shortness of breath. - albuterol (PROVENTIL) 2.5 mg /3 mL (0.083 %) nebulizer solution Use 3 mL via nebulizer every 4 hours as needed for wheezing/shortness of breath. - clarithromycin (BIAXIN) 500 mg Take 1 tablet by mouth two times a day for 10 days. - dulaglutide (TRULICITY) 0.75 mg/0.5 mL pen injector Inject 0.75 mg subcutaneously one time a week. Inject dose once per week. Discard Pen After - benzonatate (TESSALON PERLE) 100 mg capsule Take 1 capsule by mouth three times a day as needed. - albuterol HFA (PROVENTIL HFA, VENTOLIN HFA) 90 mcg/actuation inhaler Inhale 2 Puffs as instructed every 4 hours as needed for wheezing/shortness of breath. - diclofenac (VOLTAREN ARTHRITIS PAIN) 1 % topical gel Apply 2 g to affected area three times a day as needed. - tiZANidine (ZANAFLEX) 4 mg tablet Take 1 tablet by mouth every 8 hours as needed (muscle spasms). - Insulin [place], Disposable, (PEN NEEDLE) 29 gauge x 1/2 1 Each once daily. - Cholecalciferol, Vitamin D3, 125 mcg (5,000 unit) cap Take 1 capsule by mouth every morning. In addition to 1,000 international unit(s) every morning - vitamin D3-vitamin K2, MK4, 1,000-100 unit-mcg tab Take 1 tablet by mouth every morning. In addition to 5,000 units - levothyroxine (SYNTHROID) 88 mcg tablet Take 1 tablet by mouth daily before breakfast. and skip 1 day weekly. - naltrexone 2 mg tablet Take 1 tablet by mouth once daily. - liraglutide (VICTOZA) 0.6 mg/ 0.1 ml subcutaneous pen injector Inject 0.6 mg daily via pen - cyanocobalamin 1,000 mcg/mL Inject 1 mL intramuscularly one time a week for 30 days, THEN 1 mL every 2 weeks for 60 days, THEN 1 mL once every month. - dextroamphetamine-amph (more content not included)... Normal [facility] CBC panel Auto (Bld)on 07-07 Erythrocyte distribution width (RBC) [Ratio] 13.1 % Normal 11.5-15.0 [facility] Comment on above: Order Comment: Speci men Type: BLOOD SPECIMEN Ordering Facility: [facility] Address: [address] [place] [address] Performed By: #### 1 989-3 #### [facility] CLIA [id number] [address] [place] [address] [place] Hematocrit (Bld) [Volume fraction] 44.7 % Normal 36.0-46.0 [facility] Comment on above: Order Comment: Speci men Type: BLOOD SPECIMEN Ordering Facility: [facility] Address: [address] [place] [address] Performed By: #### 1 989-3 #### [facility] CLIA [id number] [address] [place] [address] [place] Hemoglobin (Bld) [Mass/Vol] 14.5 g/dL Normal 11.5-15.5 [facility] Comment on above: Order Comment: Speci men Type: BLOOD SPECIMEN Ordering Facility: [facility] Address: [address] [place] [address] Performed By: #### 1 989-3 #### [facility] CLIA [id number] [address] [place] [address] [place] MCH (RBC) [Entitic mass] 30.1 pg Normal 26.0-34.0 [facility] Comment on above: Order Comment: Speci men Type: BLOOD SPECIMEN Ordering Facility: [facility] Address: [address] [place] [address] Performed By: #### 1 989-3 #### [facility] CLIA [id number] [address] [place] [address] [place] MCHC (RBC) [Mass/Vol] 32.4 g/dL Normal 30.5-36.0 [facility] Comment on above: Order Comment: Speci men Type: BLOOD SPECIMEN Ordering Facility: [facility] Address: [address] [place] [address] Performed By: #### 1 989-3 #### [facility] CLIA [id number] [address] [place] [address] [place] MCV (RBC) [Entitic vol] 92.7 fL Normal 80.0-100.0 [facility] Comment on above: Order Comment: Speci men Type: BLOOD SPECIMEN Ordering Facility: [facility] Address: [address] [place] [address] Performed By: #### 1 989-3 #### [facility] CLIA [id number] [address] [place] [address] [place] Nucleated RBC (Bld) [#/Vol] 10*3/uL Normal <0.01 [facility] Comment on above: Order Comment: Speci men Type: BLOOD SPECIMEN Ordering Facility: [facility] Address: [address] [place] [address] Performed By: #### 1 989-3 #### [facility] CLIA [id number] [address] [place] [address] [place] Platelet mean volume (Bld) [Entitic vol] 10.4 fL Normal 9.0-12.7 [facility] Comment on above: Order Comment: Speci men Type: BLOOD SPECIMEN Ordering Facility: [facility] Address: [address] [place] [address] Performed By: #### 1 989-3 #### [facility] CLIA [id number] [address] [place] [address] [place] Platelets (Bld) [#/Vol] 263 10*3/uL Normal 150-400 [facility] Comment on above: Order Comment: Speci men Type: BLOOD SPECIMEN Ordering Facility: [facility] Address: [address] [place] [address] Performed By: #### 1 989-3 #### [facility] CLIA [id number] [address] [place] [address] [place] RBC (Bld) [#/Vol] 4.82 10*6/uL Normal 3.90-5.20 [facility] Comment on above: Order Comment: Speci men Type: BLOOD SPECIMEN Ordering Facility: [facility] Address: [address] [place] [address] Performed By: #### 1 989-3 #### [facility] CLIA [id number] [address] [place] [address] [place] WBC (Bld) [#/Vol] 13.17 10*3/uL High 3.70-11.00 [facility] Comment on above: Order Comment: Speci men Type: BLOOD SPECIMEN Ordering Facility: [facility] Address: [address] [place] [address] Performed By: #### 1 989-3 #### [facility] CLIA [id number] [address] [place] [address] [place] CNOVon 07-07-2024 CNOV Office Visit (FAMPWS ) -- SAMMY REDD ([id number]) 1980 F Date Time Provider Department 07/07/24 10:40 AM [facility] your visit today, we recorded the following information about you: Temperature Pulse Blood pressure Weight 98.3 degrees 83/minute 126/70 93 kg Dee Flores APRN.PRINTING EQUIPMENT MECHANIC APPRENTICE 07/07/2024 1:59 PM Signed Chief Complaint Patient presents with: Follow Up: Wheeze, SOB, chest discomfort, feels nauseous AND bad heartburn, feels a little better HPI Sammy Redd is a 44 year old female who presents here today for Above Complaints.. Per visit with express care on 06/28/2024: Cough Associated symptoms include chills, ear pain (pressure bilateral ears), headaches, sore throat, myalgias, shortness of breath and wheezing. Pt is a 44 y/o female who presents with non-productive cough, chest tightness, wheezing and shortness of breath x 2 days. Pt reports mild nasal congestion and bilateral ear pressure. Pt reports that she is concerned with bronchitis as she has had similar symptoms with bronchitis in the past. No reports of fever at home but does report body aches and chills. Pt reports shortness of breath at rest and on exertion. Pt has tried otc motrin and robitussin with minimal relief. ASSESSMENT/PLAN: 1. Bronchitis - ICD9: 490, ICD10: J40 (primary diagnosis) - PREDNISONE 20 MG TABLET - ALBUTEROL SULFATE HFA 90 MCG/ACTUATION AEROSOL INHALER - INHALATIONAL SPACING DEVICE 2. Viral URI with cough - ICD9: 465.9, ICD10: J06.9 - Discussed viral etiology and rationale for treatment. - Symptomatic treatment with prn analgesia - Supportive care with fluids and rest - The patient may also use OTC decongestants prn, OTC cough and cold meds as needed, and warm salt water gargles, throat lozenges and/or OTC throat spray as needed. - recommended COVID/flu/RSV testing, pt declined at this time. - PREDNISONE 20 MG TABLET - ALBUTEROL SULFATE HFA 90 MCG/ACTUATION AEROSOL INHALER - INHALATIONAL SPACING DEVICE Marielle Yang Signature: Demetris Bradford Date: 06/28/2024 Time: 4:47 PM Per visit with myself on 06/30/2024: Feels like she is sicker than she has ever been. Extremely weak. Almost done with the steroid and things are just getting worse. Albuterol helps very temporarily. Significant SOB, shooting pain through her chest into her back. Just talking she feels SOB. Persistent dry cough, feels extremely restricted. Ears are achy but don't necessarily hurt. Hands and feet are on fire, they're very hot. Nose is running but she's not stuffy. Is taking Tylenol and motrin PM, is exhausted but can't sleep. Tussin for the cough, helps temporarily. General Appearance: Well appearing, alert, in no acute distress, well-hydrated, well nourished.. Skin: skin warm, hands reddened. Head: Normocephalic, no masses, lesions, tenderness or abnormalities. Eyes: eyes glassy. Ears: External ears normal, canals clear. Nose/Sinuses: Nares normal, septum midline, mucosa normal, no drainage or sinus tenderness. Oropharynx: Lips, mucosa, and tongue normal, teeth and gums normal, oropharynx normal. Neck: 2+ bilateral submandibular lymphadenopathy. Lungs: Shortness of breath: At rest, Cough, difficulty to accurately assess due to coughing with deep breaths, expiratory wheeze throughout Heart: RRR without murmur, gallop, or rubs. No ectopy. Lymph Nodes: 2+ bilateral submandibular lymphadenopathy.. Psychiatric: pleasant, cooperative. ASSESSMENT/PLAN: 1. SOB (shortness of breath) - ICD9: 786.05, ICD10: R06.02 (primary diagnosis) Suspect pneumonia, possibly influenza or RSV Patient is aware of red flag s/s Supportive care - COVID AND INFLUENZA A/B AND RSV PCR, ROUTINE - BENZONATATE 100 MG CAPSULE - CODEINE 10 MG-GUAIFENESIN 100 MG/5 ML ORAL LIQUID - ALBUTEROL SULFATE CONCENTRATE 5 MG/ML(0.5 %) SOLUTION FOR NEBULIZATION - ALBUTEROL SULFATE CONCENTRATE 2.5 MG/0.5 ML SOLUTION FOR NEBULIZATION - FLUCONAZOLE 150 MG TABLET - NEBULIZER, WITH COMPRESSOR - XR CHEST 2V FRONTAL/LAT - PREDNISONE 10 MG TABLET 2. Wheeze - ICD9: 786.07, ICD10: R06.2 Suspect pneumonia, possibly influenza or RSV Patient is aware of red flag s/s Supportive care - COVID AND INFLUENZA A/B AND RSV PCR, ROUTINE - BENZONATATE 100 MG CAPSULE - CODEINE 10 MG-GUAIFENESIN 100 MG/5 ML ORAL LIQUID - ALBUTEROL SULFATE CONCENTRATE 5 MG/ML(0.5 %) SOLUTION FOR NEBULIZATION - ALBUTEROL SULFATE CONCENTRATE 2.5 MG/0.5 ML SOLUTION FOR NEBULIZATION - FLUCONAZOLE 150 MG TABLET - NEBULIZER, WITH COMPRESSOR - XR CHEST 2V FRONTAL/LAT - PREDNISONE 10 MG TABLET 3. Acute cough - ICD9: 786.2, ICD10: R05.1 Suspect pneumonia, possibly influenza or RSV Patient is aware of red flag s/s Supportive care - COVID AND INFLUENZA A/B AND RSV PCR, ROUTINE - BENZONATATE 100 MG CAPSULE - CODEINE 10 MG-GUAIFENESIN (more content not included)... Normal [facility] Comprehensive metabolic 2000 panelon 07-07-2024 Albumin [Mass/Vol] 4.5 g/dL Normal 3.9-4.9 [facility] Comment on above: Order Comment: Speci men Type: BLOOD SPECIMENOrdering Facility: [facility] Address: [address] [place] [address] Performed By: #### 2 4322-11, 2131-12 ####[facility] LABCLIA [id number] [place] [address] [place] ALP [Catalytic activity/Vol] 64 U/L Normal 34-123 [facility] Comment on above: Order Comment: Speci men Type: BLOOD SPECIMENOrdering Facility: [facility] Address: [address] [place] [address] Performed By: #### 2 4322-11, 2131-12 ####[facility] LABCLIA [id number] [facility] [place] [id number] [address] [place] ALT [Catalytic activity/Vol] 24 U/L Normal 7-38 [facility] Comment on above: Order Comment: Speci men Type: BLOOD SPECIMENOrdering Facility: [facility] Address: [address] [place], [place] [address] Performed By: #### 2 4328, 2131-12 ####[facility] LABCLIA [id number] [facility] [address] [place] [address] [place] Anion gap [Moles/Vol] 12 mmol/L Normal 8-15 [facility] Comment on above: Order Comment: Speci men Type: BLOOD SPECIMENOrdering Facility: [facility] Address: [address] [place] [address] Performed By: #### 2 4328, 2131-12 ####[facility] LABCLIA [id number] [address], [facility] [place] AST [Catalytic activity/Vol] 21 U/L Normal 13-35 [facility] Comment on above: Order Comment: Speci men Type: BLOOD SPECIMENOrdering Facility: [facility] Address: [address] [place], [place] [address] Performed By: #### 2 4328, 2131-12 ####[facility] LABCLIA [id number] [address] [place] [address] [place] Bilirubin [Mass/Vol] 0.3 mg/dL Normal 0.2-1.3 [facility] Comment on above: Order Comment: Speci men Type: BLOOD SPECIMENOrdering Facility: [facility] Address: [address] [place], [place] [address] Performed By: #### 2 4323-8, 2131-12 ####[facility] LABCLIA [id number] [address] [place] [address] [place] Calcium [Mass/Vol] 9.6 mg/dL Normal 8.5-10.2 [facility] Comment on above: Order Comment: Speci men Type: BLOOD SPECIMENOrdering Facility: [facility] Address: [address] [place] [address] Performed By: #### 2 4322-11, 2131-12 ####[facility] LABCLIA [id number] [facility] [address] [address] [place] Chloride [Moles/Vol] 104 mmol/L Normal 98-107 [facility] Comment on above: Order Comment: Speci men Type: BLOOD SPECIMENOrdering Facility: [facility] Address: [address] [place], [place] [address] Performed By: #### 2 4322-11, 2131-12 ####[facility] LABCLIA [id number] [place] [id number] [place] CO2 [Moles/Vol] 26 mmol/L Normal 22-30 [facility] Comment on above: Order Comment: Speci men Type: BLOOD SPECIMENOrdering Facility: [facility] Address: [address] [place] [address] Performed By: #### 2 4322-11, 2131-12 ####[facility] LABCLIA [id number] [place] [id number] [place] Creatinine [Mass/Vol] 0.84 mg/dL Normal 0.58-0.96 [facility] Comment on above: Order Comment: Speci men Type: BLOOD SPECIMENOrdering Facility: [facility] Address: [address] [place] [address] Performed By: #### 2 4323-8, 2131-12 ####[facility] LABCLIA [id number] [place] [id number] [place] Creatinine and Glomerular filtration rate.predicted panel (S/P/Bld) 88 mL/min/1.73m??? Normal >=60 [facility] Comment on above: Order Comment: Speci men Type: BLOOD SPECIMENOrdering Facility: [facility] Address: [address] [place] [id number] Result Comment: Trish mated Glomerular Filtration Rate (eGFR) is calculated using the 2020 CKD-EPI creatinine equation. This equation utilizes serum creatinine, sex, and age as parameters. The creatinine assay has traceable calibration to isotope dilution-mass spectrometry. Refer to KDIGO guidelines for clinical interpretation. In patients with unstable renal function, e.g. those with acute kidney injury, the eGFR may not accurately reflect actual GFR. Performed By: #### 2 432-8, 2131-12 ####[facility] LABIA [id number] [address] [address] [place] Glucose [Mass/Vol] 104 mg/dL High 74-99 [facility] Comment on above: Order Comment: Shane kelly Type: BLOOD SPECIMENOrdering Facility: [facility] Address: [address] [place] [address] Result Comment: The [place] Diabetes Association (ADA) provides guidance for cutoff values for fasting glucose and random glucose. The ADA defines fasting as no caloric intake for at least 8 hours. Fasting plasma glucose results between 100 to 125 [...] Standards of Medical Care in Diabetes 2016, [place] Diabetes Association. Diabetes Care. 2016.39(Suppl 1). Performed By: #### 2 4323-8, 2131-12 ####[facility] LABIA [id number] [address] [address] [place] Potassium [Moles/Vol] 4.4 mmol/L Normal 3.7-5.1 [facility] Comment on above: Order Comment: Shane [facility] Type: BLOOD SPECIMENOrdering Facility: [facility] Address: [address] [place] [place] [id number] Performed By: #### 2 43207-02, 2131-12 ####[facility] LABCLIA [id number] [address] [place] [address] [place] Protein [Mass/Vol] 7.0 g/dL Normal 6.3-8.0 [facility] Comment on above: Order Comment: Speci men Type: BLOOD SPECIMENOrdering Facility: [facility] Address: [address] [place] [address] Performed By: #### 2 4322-11, 2131-12 ####[facility] LABCLIA [id number] [address] [place] [address] [place] Sodium [Moles/Vol] 142 mmol/L Normal 136-144 [facility] Comment on above: Order Comment: Speci men Type: BLOOD SPECIMENOrdering Facility: [facility] Address: [address] [place] [address] Performed By: #### 2 4322-11, 2131-12 ####[facility] LABCLIA [id number] [address] [place] [address] [place] Urea nitrogen [Mass/Vol] 19 mg/dL Normal 7-21 [facility] Comment on above: Order Comment: Speci men Type: BLOOD SPECIMENOrdering Facility: [facility] Address: [address] [place] [address] Performed By: #### 2 4322-11, 2131-12 ####[facility] LABCLIA [id number] [address] [place] [address] [place] Vit B12 [facility] -[facility]-2 025 Cobalamin (Vitamin B12) [Mass/Vol] 1263 pg/mL High 232-1245 [facility] Comment on above: Order Comment: Speci men Type: BLOOD SPECIMENOrdering Facility: [facility] Address: [address] [place], [place] [address] Performed By: #### 2 4322-11, 2131-12 ####[facility] LABCLIA [id number] [address] [address] [place] XR CHEST 2V FRONTAL/LATon XR CHEST 2V FRONTAL/LAT * * *Final Report* * * DATE OF EXAM: Jul 07 2024 9:52AM WOX [id number] - XR CHEST 2V FRONTAL/LAT / PROCEDURE REASON: multiple diagnoses * * * * Physician Interpretation * * * * EXAMINATION: CHEST RADIOGRAPH (2 VIEW FRONTAL and LATERAL) CLINICAL HISTORY: Rhonchi at both lung bases Community acquired pneumonia, unspecified laterality MQ: XC2_6 EXAM DATE/TIME: 07/07/2024 9:52 AM COMPARISON: 06/30/2024 RESULT: Lines, tubes, and devices: None. Lungs and pleura: No consolidation. No lung mass. No pleural effusion. No pneumothorax. Cardiomediastinal silhouette: Normal cardiomediastinal silhouette. Bones and soft tissues: Unremarkable. IMPRESSION: No acute radiographic abnormality. Management Assistant: [facility] Transcribe Date/Time: Jul 07 2024 3:13P Dictated by : ISSAC SANTANA MD This examination was interpreted and the report reviewed and electronically signed by: ISSAC SANTANA MD on Jul 07 2024 3:13PM EST [id number] Normal [facility] XR Chest PA and Lateralon IMPRESSION: No acute radiographic abnormality. Management Assistant: [facility] Transcribe Date/Time: Jul 07 2024 3:13P Dictated by : ISSAC SANTANA MD This examination was interpreted and the report reviewed and electronically signed by: ISSAC SANTANA MD on Jul 07 2024 3:13PM EST DIVISION OF RADIOLOGY * * *Final Report* * * DATE OF EXAM: Jul 07 2024 9:52AM WOX [id number] - XR CHEST 2V FRONTAL/LAT / PROCEDURE REASON: multiple diagnoses * * * * Physician Interpretation * * * * EXAMINATION: CHEST RADIOGRAPH (2 VIEW FRONTAL & LATERAL) CLINICAL HISTORY: Rhonchi at both lung bases Community acquired pneumonia, unspecified laterality MQ: XC2_6 EXAM DATE/TIME: 07/07/2024 9:52 AM COMPARISON: 06/30/2024 RESULT: Lines, tubes, and devices: None. Lungs and pleura: No consolidation. No lung mass. No pleural effusion. No pneumothorax. Cardiomediastinal silhouette: Normal cardiomediastinal silhouette. Bones and soft tissues: Unremarkable. DIVISION OF RADIOLOGY Provider, Anny Ruggiero - 07/07/2024 * * *Final Report* * * DATE OF EXAM: Jul 07 2024 9:52AM WOX [id number] - XR CHEST 2V FRONTAL/LAT / PROCEDURE REASON: multiple diagnoses * * * * Physician Interpretation * * * * EXAMINATION: CHEST RADIOGRAPH (2 VIEW FRONTAL & LATERAL) CLINICAL HISTORY: Rhonchi at both lung bases Community acquired pneumonia, unspecified laterality MQ: XC2_6 EXAM DATE/TIME: 07/07/2024 9:52 AM COMPARISON: 06/30/2024 RESULT: Lines, tubes, and devices: None. Lungs and pleura: No consolidation. No lung mass. No pleural effusion. No pneumothorax. Cardiomediastinal silhouette: Normal cardiomediastinal silhouette. Bones and soft tissues: Unremarkable. IMPRESSION IMPRESSION: No acute radiographic abnormality. Management Assistant: [facility] Transcribe Date/Time: Jul 07 2024 3:13P Dictated by : ISSAC SANTANA MD This examination was interpreted and the report reviewed and electronically signed by: ISSAC SANTANA MD on Jul 07 2024 3:13PM [facility] Radiology Study observation (narrative) [facility] XR Chest PA and LateralOrder ed By: [facility] Provider on 07-07-2024 [facility] CNOVon 07-05-2024 CNOV Office Visit (FAMPWS ) -- SAMMY REDD ([id number]) 1980 F Date Time Provider Department 07/05/24 11:00 AM JOSE LUIS TOLEDO FAMPWS During your visit today, we recorded the following information about you: Temperature Pulse Respiration Blood pressure 97.3 degrees 76/minute 16/minute 126/80 Weight 93 kg Jose Luis [place], DO 07/05/2024 12:30 PM Signed CC: Sammy Redd is a 44 year old female who presents to the office for follow up HPI: Cough, chest congestion, present for the last 10 days, getting worse. Is using her albuterol inhaler for the wheezing. Getting some occasional shortness of breath with coughing. Hasn't been able to bring up any sputum. No nasal or ear or throat symptoms. Symptoms not improved much with prednisone- maybe 20% better. Getting some nausea. Was originally diagnosed with influenza A. Didn't take the Tamiflu medication that she was prescribed. Obesity, IFG, dysmetabolic syndrome, tolerating adipex but struggling to lose the weight. Knows that the prednisone that she had to take is also affecting her weight. Is interested in taking victoza which was approved by her insurance but the pharmacy doesn't have it available for her to use. PAST MEDICAL HISTORY Diagnosis Date Anesthesia states mom had issues in 2013 leading to air emboli after surgery. pt herself has had no issues. Anxiety Cerebral aneurysm 2015 just watching scanned last 2021 - Dr. Oneal Complicated migraine Endometriosis 75% improvement in abdominal pain post lap surgery Fibromyalgia Hypothyroidism IBS (irritable bowel syndrome) Insulin resistance Kidney stone Lactose intolerance in adult Left thyroid nodule 12/2020 repeat thyroid US 12/2021 Low HDL (under 40) Low serum progesterone worsening symptoms with progesterone rx Lumbar disc disease 05/13/2010 Migraines CADENCE (obstructive sleep apnea) Last polysomnogram in 2012, last use in 2012 Personal history of kidney stones Polycystic ovary syndrome 06/19/2010 Protein S deficiency (HCC) 2008 clotting disorder (just had APPT drawn - in [facility]) PUD (peptic ulcer disease) 2010 treated [...] PYELOTOMY W/REMOVAL CALCULUS 04/27/2008 multiple VAGINAL HYSTERECTOMY Current Outpatient Medications Medication Sig LORazepam (ATIVAN) 1 mg tablet Take 1 tablet by mouth two times a day as needed for anxiety for up to 90 days. Phentermine HCl (ADIPEX-P) 37.5 mg tablet Take 1 tablet by mouth once daily for 30 days. BMI 38.28 albuterol HFA (PROVENTIL HFA, VENTOLIN HFA) 90 mcg/actuation inhaler Inhale 2 Puffs as instructed every 4 hours as needed for wheezing/shortness of breath. albuterol (PROVENTIL) 2.5 mg /3 mL (0.083 %) nebulizer solution Use 3 mL via nebulizer every 4 hours as needed for wheezing/shortness of breath. sulfamethoxazole-trimethop rim (BACTRIM DS) 800-160 mg per tablet Take 1 tablet by mouth two times a day for 5 days. clarithromycin (BIAXIN) 500 mg Take 1 tablet by mouth two times a day for 10 days. dulaglutide (TRULICITY) 0.75 mg/0.5 mL pen injector Inject 0.75 mg subcutaneously one time a week. Inject dose once per week. Discard Pen After predniSONE (DELTASONE) 10 mg tablet Take 4 tabs daily for 3 days, then 2 tabs daily for 3 days, then 1 tab daily for 3 days with food. oseltamivir (TAMIFLU) 75 mg capsule Take 1 capsule by mouth two times a day for 5 days. benzonatate (TESSALON PERLE) 100 mg capsule Take 1 capsule by mouth three times a day as needed. codeine-guaiFENesin (ROBITUSSIN AC) 10-100 mg/5 mL syrup Take 5 mL by mouth four times a day as needed for up to 5 days. albuterol HFA (PROVENTIL HFA, VENTOLIN HFA) 90 mcg/actuation inhaler Inhale 2 Puffs as instructed every 4 hours as needed for wheezing/shortness of breath. diclofenac (VOLTAREN ARTHRITIS PAIN) 1 % topical gel Apply 2 g to affected area three times a day as needed. tiZANidine (ZANAFLEX) 4 mg tablet Take 1 tablet by mouth every 8 hours as needed (muscle spasms). Insulin [place], Disposable, (PEN NEEDLE) 29 gauge x 1/2 1 Each once daily. Cholecalciferol, Vitamin D3, 125 mcg (5,000 unit) cap Take 1 capsule by mouth every morning. In addition to 1,000 international unit(s) every mor (more content not included)... Normal [facility] CNOVon 06-30-2024 CNOV Office Visit (FAMPWS ) -- SAMMY REDD ([id number]) 1980 F Date Time Provider Department 06/30/24 9:40 AM [facility] During your visit today, we recorded the following information about you: Temperature Pulse Blood pressure Weight 99.9 degrees 107/minute 128/78 94.6 kg Dee Flores APRN.[employer]ING [employer]CH[employer]IC APPRENTICE 06/30/2024 1:07 PM Signed Chief Complaint Patient presents with: Acute Visit: SOB, wheezing, cough, went to 06/28 dx with bronchitis and was given prednisone x 4days and albut inhaler with minimal relief, reports SOB is worse HPI Sammy Redd is a 44 year old female who presents here today for Above Complaints.. Per visit with express care on 06/28/2024: Cough Associated symptoms include chills, ear pain (pressure bilateral ears), headaches, sore throat, myalgias, shortness of breath and wheezing. Pt is a 44 y/o female who presents with non-productive cough, chest tightness, wheezing and shortness of breath x 2 days. Pt reports mild nasal congestion and bilateral ear pressure. Pt reports that she is concerned with bronchitis as she has had similar symptoms with bronchitis in the past. No reports of fever at home but does report body aches and chills. Pt reports shortness of breath at rest and on exertion. Pt has tried otc motrin and robitussin with minimal relief. ASSESSMENT/PLAN: 1. Bronchitis - ICD9: 490, ICD10: J40 (primary diagnosis) - PREDNISONE 20 MG TABLET - ALBUTEROL SULFATE HFA 90 MCG/ACTUATION AEROSOL INHALER - INHALATIONAL SPACING DEVICE 2. Viral URI with cough - ICD9: 465.9, ICD10: J06.9 - Discussed viral etiology and rationale for treatment. - Symptomatic treatment with prn analgesia - Supportive care with fluids and rest - The patient may also use OTC decongestants prn, OTC cough and cold meds as needed, and warm salt water gargles, throat lozenges and/or OTC throat spray as needed. - recommended COVID/flu/RSV testing, pt declined at this time. - PREDNISONE 20 MG TABLET - ALBUTEROL SULFATE HFA 90 MCG/ACTUATION AEROSOL INHALER - INHALATIONAL SPACING DEVICE Marielle marvin Signature: Demetris Sanchez Date: 06/28/2024 Time: 4:47 PM Currently: Feels like she is sicker than she has ever been. Extremely weak. Almost done with the steroid and things are just getting worse. Albuterol helps very temporarily. Significant SOB, shooting pain through her chest into her back. Just talking she feels SOB. Persistent dry cough, feels extremely restricted. Ears are achy but don't necessarily hurt. Hands and feet are on fire, they're very hot. Nose is running but she's not stuffy. Is taking Tylenol and motrin PM, is exhausted but can't sleep. Tussin for the cough, helps temporarily. Past medical history, appointments, medications, allergies reviewed. Previous Medical History PAST MEDICAL HISTORY Diagnosis Date Anesthesia states mom had issues in 2013 leading to air emboli after surgery. pt herself has had no issues. Anxiety Cerebral aneurysm 2015 just watching scanned last 2021 - Dr. Oneal Complicated migraine Endometriosis 75% improvement in abdominal pain post lap surgery Fibromyalgia Hypothyroidism IBS (irritable bowel syndrome) Insulin resistance Kidney stone Lactose intolerance in adult Left thyroid nodule 12/2020 repeat thyroid US 12/2021 Low HDL (under 40) Low serum progesterone worsening symptoms with progesterone rx Lumbar disc disease 05/13/2010 Migraines CADENCE (obstructive sleep apnea) Last polysomnogram in 2012, last use in 2012 Personal history of kidney stones Polycystic ovary syndrome 06/19/2010 Protein S deficiency (HCC) 2007 clotting disorder (just had APPT drawn - in [facility]) PUD (peptic ulcer disease) 2009 treated [...] PYELOTOMY W/REMOVAL CALCULUS 04/27/2008 multiple VAGINAL HYSTERECTOMY Family History FAMILY HISTORY Problem Relation Age of Onset Breast Cancer Mother 39 Arthritis Mother Fibromyalgia other (irregular heartbeat) Mother Arthritis Father RA Thyroid Father Hypertension Father Thyroid Cancer Sister Diabetes Brother type 1 Diabetes Brother Type 1 Hypertension Maternal Grandmother Al (more content not included)... [facility] ([id number]) 1980 F Date Time Provider Department 06/30/24 DEE FLORES During your visit today, we recorded the following information about you: Shiloh Harris LPN 06/30/2024 11:20 AM Signed Milady from [employer] calling asking for another diagnosis for the Nebulizer, ones on rx not going to be covered. Call her first to see if diagnosis code works, then she will need a new rx sent to her. Cost for patient would be 90 dollars. Please advise Dee Flores APRN.JOI 06/30/2024 12:14 PM Signed I added the viral uri and restrictive airway disease-do these work? Dee Flores APRN.Giana Campbell MA 06/30/2024 1:28 PM Signed Neither dx will work. J42 or J40 - bronchitis should work. Please send escript to drug [facility]. Make sure script states nebulizer compressor per Milady. BAILEE La Rebekah, APRN.CNP 06/30/2024 1:31 PM Signed Bronchitis added to dx. Order in the outbox in our office. Dee Flores APRN.Giana Campbell MA 06/30/2024 1:32 PM Signed Script faxed Giana Alicea MA Allergies As of Date: 06/30/2024 Noted Allergy Reaction ALEVE (NAPROXEN SODIUM) 04/28/2007 11 - Vomiting Comments: Ibuprofen without problems Vomiting with Aleve with one time use COMPAZINE (PROCHLORPERAZINE) 03/11/2023 1 - Mental Status Change MENTHOL 08/07/2022 2 - Rash METFORMIN 01/23/2017 8 - GI Upset MORPHINE (PF) 03/11/2023 14 - Other: See Comments Comments: Respiratory depression PENICILLINS 04/28/2007 7 - Swelling ADHESIVE 12/26/2020 2 - Rash Date Reviewed: 06/30/2024 Reviewed by: Dee Flores APRN.JOI - Fully Assessed Reason for Visit: needs another diagnosis for nebulizer [Other] Primary Visit Diagnosis:SOB (shortness of breath) [R06.02] Other Visit Diagnoses:Wheeze [R06.2] Acute cough [R05.1] Fever, unspecified fever cause [R50.9] Aches [R52] Chills [R68.83] Other chest pain [R07.89] Restrictive airway disease [J98.4] Viral URI [J06.9] Chronic bronchitis, unspecified chronic bronchitis type (HCC) [J42] Order(s):NEBULIZER, WITH COMPRESSOR [[id number]] Order #: [id number] Prescriptions as of 06/30/2024 - benzonatate (TESSALON PERLE) 100 mg capsule Take 1 capsule by mouth three times a day as needed. - codeine-guaiFENesin (ROBITUSSIN AC) 10-100 mg/5 mL syrup Take 5 mL by mouth four times a day as needed for up to 5 days. - albuterol (PROVENTIL) 5 mg/mL nebu Inhale 0.5 mL as instructed one time only for 1 dose. 1 DOSE NOW - BACK OFFICE. PLACE 0.5 ML PER DROPPER AND 2.5 ML OF NORMAL SALINE INTO RESERVOIR. - albuterol (PROVENTIL) 2.5 mg/0.5 mL nebulizer solution Use 0.5 mL via nebulizer every 4 hours as needed for wheezing/shortness of breath. - fluconazole (DIFLUCAN) 150 mg tablet Take 1 tablet by mouth one time only for 1 dose. Repeat in 3 days as needed. - predniSONE (DELTASONE) 10 mg tablet Take 4 tabs daily for 3 days, then 2 tabs daily for 3 days, then 1 tab daily for 3 days with food. - albuterol (PROVENTIL) 5 mg/mL nebu Inhale 0.5 mL as instructed one time only for 1 dose. 1 DOSE NOW - BACK OFFICE. PLACE 0.5 ML PER DROPPER AND 2.5 ML OF NORMAL SALINE INTO RESERVOIR. - albuterol HFA (PROVENTIL HFA, VENTOLIN HFA) 90 mcg/actuation inhaler Inhale 2 Puffs as instructed every 4 hours as needed for wheezing/shortness of breath. - diclofenac (VOLTAREN ARTHRITIS PAIN) 1 % topical gel Apply 2 g to affected area three times a day as needed. - tiZANidine (ZANAFLEX) 4 mg tablet Take 1 tablet by mouth every 8 hours as needed (muscle spasms). - Insulin [place], Disposable, (PEN NEEDLE) 29 gauge x 1/2 1 Each once daily. - Cholecalciferol, Vitamin D3, 125 mcg (5,000 unit) cap Take 1 capsule by mouth every morning. In addition to 1,000 international unit(s) every morning - vitamin D3-vitamin K2, MK4, 1,000-100 unit-mcg tab Take 1 tablet by mouth every morning. In addition to 5,000 units - levothyroxine (SYNTHROID) 88 mcg tablet Take 1 tablet by mouth daily before breakfast. and skip 1 day weekly. - LORazepam (ATIVAN) 1 mg tablet Take 1 tablet by mouth two times a day as needed for anxiety for up to 90 days. - naltrexone 2 mg tablet Take 1 tablet by mouth once daily. - liraglutide (VICTOZA) 0.6 mg/ 0.1 ml subcutaneous pen injector Inject 0.6 mg daily via pen - cyanocobalamin 1,000 mcg/mL Inject 1 mL intramuscularly one time a week for 30 days, THEN 1 mL every 2 weeks for 60 days, THEN 1 mL once every month. - dextroamphetamine-amphetam ine (ADDERALL) 10 mg tablet Take 1 tablet by mouth once daily for 30 days. - triamcinolone acetonide (KENALOG) 0.5 % cream Apply 1 application to affected area daily at bedtime. On left lower leg skin lesion at ankle. Apply sparingly. Avoid face/skin fold. - Syringe with Needle, Safety (SAFETY-NAVDEEP 10CC SYR 21GX1.5) 1 (more content not included)... Normal [facility] UA DIP, URINE (POC)on 2024 BILIRUBIN UA (POCT) Negative Negative [facility] CLARITY UA (POCT) Clear [facility] COLOR UA (POCT) Other [facility] GLUCOSE UA (POCT) Negative Negative mg/dL [facility] Hemoglobin Ql (U) Negative Negative [facility] KETONE UA (POCT) Negative Negative mg/dL [facility] LEUKOCYTES UA (POCT) Negative Negative [facility] NITRITE UA (POCT) Negative Negative [facility] PH UA (POCT) 6 4.5 - 8.0 [facility] Protein Ql (U) Negative Negative mg/dL [facility] SPECIFIC GRAVITY UA (POCT) 1.015 1.005 - 1.030 [facility] UROBILINOGEN UA (POCT) 0.2 Georgina l E.U./dL [facility] Location:[address], [place], [place], [id number] [place] [address] POINT OF CARE [facility] XR CHEST 2V FRONTAL/LATon XR CHEST 2V FRONTAL/LAT * * *Final Report* * * DATE OF EXAM: Jun 30 2024 10:32AM WOX [id number] - XR CHEST 2V FRONTAL/LAT / PROCEDURE REASON: multiple diagnoses * * * * Physician Interpretation * * * * EXAMINATION: CHEST RADIOGRAPH (2 VIEW FRONTAL and LATERAL) PATIENT/TECHNOLOGIST PROVIDED HISTORY: cough, SOB, and right sided sharp pain on inhale. Flu-like symptoms. difficulty taking deep inspiration. CLINICAL HISTORY: 44 years old Female with SOB (shortness of breath) Wheeze. Acute cough. Fever, unspecified fever cause MQ: XC2_6 EXAM DATE/TIME: 06/30/2024 10:32 AM COMPARISON: Chest radiograph(s) dated 08/14/2022 RESULT: Lines, tubes, and devices: None. Lungs and pleura: No consolidation. No pleural effusion. No pneumothorax. Cardiomediastinal silhouette: Normal cardiomediastinal silhouette. Bones and soft tissues: Surgical clips are present in the upper abdomen. IMPRESSION: No acute radiographic abnormality. Management Assistant: MARLON Transcribe Date/Time: Jun 30 2024 10:35A Dictated by : HAMIDA MARIA DO This examination was interpreted and the report reviewed and electronically signed by: HAMIDA MARIA DO on Jun 30 2024 10:36AM EST [id number] Normal [facility] XR Chest PA and Lateralon IMPRESSION: No acute radiographic abnormality. Management Assistant: [facility] Transcribe Date/Time: Jun 30 2024 10:35A Dictated by : HAMIDA MARIA DO This examination was interpreted and the report reviewed and electronically signed by: HAMIDA MARIA DO on Jun 30 2024 10:36AM EST DIVISION OF RADIOLOGY * * *Final Report* * * DATE OF EXAM: Jun 30 2024 10:32AM WOX [id number] - XR CHEST 2V FRONTAL/LAT / PROCEDURE REASON: multiple diagnoses * * * * Physician Interpretation * * * * EXAMINATION: CHEST RADIOGRAPH (2 VIEW FRONTAL & LATERAL) PATIENT/TECHNOLOGIST PROVIDED HISTORY: cough, SOB, and right sided sharp pain on inhale. Flu-like symptoms. difficulty taking deep inspiration. CLINICAL HISTORY: 44 years old Female with SOB (shortness of breath) Wheeze. Acute cough. Fever, unspecified fever cause MQ: XC2_6 EXAM DATE/TIME: 06/30/2024 10:32 AM COMPARISON: Chest radiograph(s) dated 08/14/2022 RESULT: Lines, tubes, and devices: None. Lungs and pleura: No consolidation. No pleural effusion. No pneumothorax. Cardiomediastinal silhouette: Normal cardiomediastinal silhouette. Bones and soft tissues: Surgical clips are present in the upper abdomen. DIVISION OF RADIOLOGY Provider, Anny Andrew patricio Franklin - 06/30/2024 * * *Final Report* * * DATE OF EXAM: Jun 30 2024 10:32AM WOX [id number] - XR CHEST 2V FRONTAL/LAT / PROCEDURE REASON: multiple diagnoses * * * * Physician Interpretation * * * * EXAMINATION: CHEST RADIOGRAPH (2 VIEW FRONTAL & LATERAL) PATIENT/TECHNOLOGIST PROVIDED HISTORY: cough, SOB, and right sided sharp pain on inhale. Flu-like symptoms. difficulty taking deep inspiration. CLINICAL HISTORY: 44 years old Female with SOB (shortness of breath) Wheeze. Acute cough. Fever, unspecified fever cause MQ: XC2_6 EXAM DATE/TIME: 06/30/2024 10:32 AM COMPARISON: Chest radiograph(s) dated 08/14/2022 RESULT: Lines, tubes, and devices: None. Lungs and pleura: No consolidation. No pleural effusion. No pneumothorax. Cardiomediastinal silhouette: Normal cardiomediastinal silhouette. Bones and soft tissues: Surgical clips are present in the upper abdomen. IMPRESSION IMPRESSION: No acute radiographic abnormality. Management Assistant: [facility] Transcribe Date/Time: Jun 30 2024 10:35A Dictated by : HAMIDA MARIA DO This examination was interpreted and the report reviewed and electronically signed by: HAMIDA MARIA DO on Jun 30 2024 10:36AM EST [facility] Radiology Study observation (narrative) [facility] XR Chest PA and LateralOrder ed By: [facility] Provider on 06-30-2024 [facility] CNOVon 06-28-2024 CNOV Office Visit (UCWSTR ) -- SAMMY REDD ([id number]) 1980 F Date Time Provider Department 06/28/24 4:15 PM DEMETRIS BRADFORD WSTR During your visit today, we recorded the following information about you: Temperature Pulse Respiration Blood pressure 98.3 degrees 90/minute 18/minute 118/80 Weight 94.3 kg Demetris Bradford APRN.PRINTING EQUIPMENT MECHANIC APPRENTICE 06/28/2024 4:48 PM Signed [facility] Subjective Sammy Redd is a 44 year old female. Cough Associated symptoms include chills, ear pain (pressure bilateral ears), headaches, sore throat, myalgias, shortness of breath and wheezing. Pt is a 44 y/o female who presents with non-productive cough, chest tightness, wheezing and shortness of breath x 2 days. Pt reports mild nasal congestion and bilateral ear pressure. Pt reports that she is concerned with bronchitis as she has had similar symptoms with bronchitis in the past. No reports of fever at home but does report body aches and chills. Pt reports shortness of breath at rest and on exertion. Pt has tried otc motrin and robitussin with minimal relief. Review of Systems Constitutional: Positive for chills and fatigue. Negative for fever. HENT: Positive for congestion (mild), ear pain (pressure bilateral ears) and sore throat. Negative for postnasal drip. Eyes: Negative. Respiratory: Positive for cough, chest tightness, shortness of breath and wheezing. Cardiovascular: Negative. Gastrointestinal: Negative. Genitourinary: Negative. Musculoskeletal: Positive for myalgias. Neurological: Positive for headaches. Objective BP 118/80 Pulse 90 Temp 36.8 ?C (98.3 ?F) (Tympanic) Resp 18 Wt 94.3 kg (207 lb 14.3 oz) LMP 05/30/2019 (Exact Date) SpO2 100% BMI 40.60 kg/m? PAST MEDICAL HISTORY Diagnosis Date Anesthesia states mom had issues in 2013 leading to air emboli after surgery. pt herself has had no issues. Anxiety Cerebral aneurysm 2015 just watching scanned last 2021 - Dr. Oneal Complicated migraine Endometriosis 75% improvement in abdominal pain post lap surgery Fibromyalgia Hypothyroidism IBS (irritable bowel syndrome) Insulin resistance Kidney stone Lactose intolerance in adult Left thyroid nodule 12/2020 repeat thyroid US 12/2021 Low HDL (under 40) Low serum progesterone worsening symptoms with progesterone rx Lumbar disc disease 05/13/2010 Migraines CADENCE (obstructive sleep apnea) Last polysomnogram in 2012, last use in 2012 Personal history of kidney stones Polycystic ovary syndrome 06/19/2010 Protein S deficiency (HCC) 2007 clotting disorder (just had APPT drawn - in [facility]) PUD (peptic ulcer disease) 2009 treated medically, [...] PYELOTOMY W/REMOVAL CALCULUS 04/27/2008 multiple VAGINAL HYSTERECTOMY ALLERGIES Aleve [Naproxen Sodium], Compazine [Prochlorperazine], Menthol, Metformin, Morphine (Pf), Penicillins, and Adhesive MEDICATIONS diclofenac (VOLTAREN ARTHRITIS PAIN) 1 % topical gel Apply 2 g to affected area three times a day as needed. tiZANidine (ZANAFLEX) 4 mg tablet Take 1 tablet by mouth every 8 hours as needed (muscle spasms). Insulin [place], Disposable, (PEN NEEDLE) 29 gauge x 1/2 1 Each once daily. Cholecalciferol, Vitamin D3, 125 mcg (5,000 unit) cap Take 1 capsule by mouth every morning. In addition to 1,000 international unit(s) every morning vitamin D3-vitamin K2, MK4, 1,000-100 unit-mcg tab Take 1 tablet by mouth every morning. In addition to 5,000 units levothyroxine (SYNTHROID) 88 mcg tablet Take 1 tablet by mouth daily before breakfast. and skip 1 day weekly. LORazepam (ATIVAN) 1 mg tablet Take 1 tablet by mouth two times a day as needed for anxiety for up to 90 days. naltrexone 2 mg tablet Take 1 tablet by mouth once daily. liraglutide (VICTOZA) 0.6 mg/ 0.1 ml subcutaneous pen injector Inject 0.6 mg daily via pen cyanocobalamin 1,000 mcg/mL Inject 1 mL intramuscularly one time a week for 30 days, THEN 1 mL every 2 weeks for 60 days, THEN 1 mL once every month. triamcinolone acetonide (KENALOG) 0.5 % cream Apply 1 application to affected area daily at bedtime. On left lower leg skin lesion at ankle. Apply sparingly. Avoid face/skin fold. Syringe with (more content not included)... Normal [facility] CNOVon 05-05-2024 CNOV Office Visit (FAMPWS ) -- SAMMY REDD ([id number]) 1980 F Date Time Provider Department 05/05/24 11:40 AM BRANDI QUINTEROS [facility] During your visit today, we recorded the following information about you: Pulse Blood pressure Weight 71/minute 122/74 92.1 kg 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, EMORY.PRINTING EQUIPMENT MECHANIC APPRENTICE 05/05/2024 12:11 PM Signed Chief Complaint Patient presents with: Pain (Shoulder Pain): Burning ache in Right shoulder x 2 weeks, no injury pt aware of, pain radiates into R side of neck HPI Sammy Redd is a 44 year old female who presents here today for Above Complaints. Sammy is an established patient of Dr. Tre DO. Concerns today... Shoulder pain --- R shoulder pain x 2 weeks. No known fall, injury, or lifting heavy. Unknown cause. Woke up one day with stiffness and pain with movement. Pain is worse with overhead motion and abduction. Pt radiates up R side of neck and slightly into bicep region of R arm. 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 Using ice to area does help. Has been using tylenol, motrin, and half tablet of zanaflex with some relief. Taking zanaflex at night only d/t drowsiness. Went to chiropractor today. No other concerns or complaints. Past medical history, appointments, medications, allergies reviewed. Previous Medical History PAST MEDICAL HISTORY Diagnosis Date Anesthesia states mom had issues in 2013 leading to air emboli after surgery. pt herself has had no issues. Anxiety Cerebral aneurysm 2015 just watching scanned last 2021 - Dr. Oneal Complicated migraine Endometriosis 75% improvement in abdominal pain post lap surgery Fibromyalgia Hypothyroidism IBS (irritable bowel syndrome) Insulin resistance Kidney stone Lactose intolerance in adult Left thyroid nodule 12/2020 repeat thyroid US 12/2021 Low HDL (under 40) Low serum progesterone worsening symptoms with progesterone rx Lumbar disc disease 05/13/2010 Migraines CADENCE (obstructive sleep apnea) Last polysomnogram in 2012, last use in 2012 Personal history of kidney stones Polycystic ovary syndrome 06/19/2010 Protein S deficiency (HCC) 2007 clotting disorder (just had APPT drawn - in [facility]) PUD (peptic ulcer disease) 2009 treated [...] PYELOTOMY W/REMOVAL CALCULUS 04/27/2008 multiple VAGINAL HYSTERECTOMY Family History FAMILY HISTORY Problem Relation Age of Onset Breast Cancer Mother 39 Arthritis Mother Fibromyalgia other (irregular heartbeat) Mother Arthritis Father RA Thyroid Father Hypertension Father Thyroid Cancer Sister Diabetes Brother type 1 Diabetes Brother Type 1 Hypertension Maternal Grandmother Alzheimer's Disease Maternal Grandmother Arthritis Maternal Grandmother other (dementia) Maternal Grandmother Stroke Maternal Grandfather ADD/ADHD Daughter other (Eosinophilic esophagitis) Son other (Abdominal migraines) Son Patient Allergies ALLERGIES Allergen Reactions Aleve [Naproxen Sod* Vomiting Ibuprofen without problems Vomiting with Aleve with one time use Compazine [Prochlor* Mental Status Change Menthol Rash Metformin GI Upset Morphine (Pf) Other: See Comments Respiratory depression Penicillins Swelling Adhesive Rash Current Medications Current Outpatient Medications on File Prior to Visit Medication Sig Insulin [place], Disposable, (PEN NEEDLE) 29 gauge x 1/2 1 Each once daily. Cholecalciferol, Vitamin D3, 125 mcg (5,000 unit) cap Take 1 capsule by mouth every morning. In addition to 1,000 international unit(s) every morning vitamin D3-vitamin K2, MK4, 1,000-100 unit-mcg tab Take 1 tablet by mouth every morning. In addition to 5,000 units acetaminophen 325 mg-caffeine 40 mg-butalbital 50 mg (FIORICET) per capsule Take 1 capsule by mouth every 6 hours as needed for pain or headache. levothyroxine (SYNTHROID) 88 mcg tablet Take 1 tablet by mouth daily before breakfast. and skip 1 day weekly. LORazepam (ATIVAN) 1 mg tablet Take 1 tablet by mouth two times a day as needed for anxiety for up to 90 days. naltrexone 2 mg tablet Take 1 tablet by mouth once daily. liraglutide (VICTOZA) 0.6 mg/ (more content not included)... Normal [facility] ([id number]) 1980 F Date Time Provider Department 04/11/24 JOSE LUIS TOLEDO [facility] During your visit today, we recorded the following information about you: Jose Luis Tol[place] DO 04/11/2024 7:50 AM Addendum Please inform patient that her ECHO is overall stable. Unchanged from previous testing Please inform patient that her labs are stable except recommend to increase vitamin D3 by extra 1000 international unit(s) a day with a meal DO Aly Shook Rachel L, MA 04/11/2024 1:51 PM Signed Patient notified. Requesting refill on Vit D 5000 international unit(s) and requesting RX for 1,000 international unit(s). Orders pended. BAILEE Muhammad Jordan L, DO 04/11/2024 2:32 PM Signed The following approved medication requests have been transmitted electronically. Requested Prescriptions Signed Prescriptions Disp Refills Cholecalciferol, Vitamin D3, 125 mcg (5,000 unit) cap 90 capsule 3 Sig: Take 1 capsule by mouth every morning. In addition to 1,000 international unit(s) every morning Authorizing Provider: JOSE LUIS TOLEDO vitamin D3-vitamin K2, MK4, 1,000-100 unit-mcg tab 90 tablet 3 Sig: Take 1 tablet by mouth every morning. In addition to 5,000 units Authorizing Provider: JOSE LUIS TOLEDO DO Allergies As of Date: 04/11/2024 Noted Allergy Reaction ALEVE (NAPROXEN SODIUM) 04/28/2007 11 - Vomiting Comments: Ibuprofen without problems Vomiting with Aleve with one time use COMPAZINE (PROCHLORPERAZINE) 03/11/2023 1 - Mental Status Change MENTHOL 08/07/2022 2 - Rash METFORMIN 01/23/2017 8 - GI Upset MORPHINE (PF) 03/11/2023 14 - Other: See Comments Comments: Respiratory depression PENICILLINS 04/28/2007 7 - Swelling ADHESIVE 12/26/2020 2 - Rash Date Reviewed: 04/04/2024 Reviewed by: Bertha Rivera LPN - Fully Assessed Reason for Visit: Results [95] Visit Diagnosis:Vitamin D deficiency [E55.9] Order(s):Cholecalciferol, Vitamin D3, 125 mcg (5,000 unit) capTake 1 capsule by mouth every morning. In addition to 1,000 international unit(s) every morningDisp: 90 capsuleRfl: 3 vitamin D3-vitamin K2, MK4, 1,000-100 unit-mcg tabTake 1 tablet by mouth every morning. In addition to 5,000 unitsDisp: 90 tabletRfl: 3 Prescriptions as of 04/11/2024 - Cholecalciferol, Vitamin D3, 125 mcg (5,000 unit) cap Take 1 capsule by mouth every morning. In addition to 1,000 international unit(s) every morning - vitamin D3-vitamin K2, MK4, 1,000-100 unit-mcg tab Take 1 tablet by mouth every morning. In addition to 5,000 units - acetaminophen 325 mg-caffeine 40 mg-butalbital 50 mg (FIORICET) per capsule Take 1 capsule by mouth every 6 hours as needed for pain or headache. - semaglutide, weight loss, (WEGOVY) 0.25 mg/0.5 mL pen injector Inject 0.5 mL subcutaneously one time a week for 28 days. - levothyroxine (SYNTHROID) 88 mcg tablet Take 1 tablet by mouth daily before breakfast. and skip 1 day weekly. - LORazepam (ATIVAN) 1 mg tablet Take 1 tablet by mouth two times a day as needed for anxiety for up to 90 days. - Phentermine HCl (ADIPEX-P) 37.5 mg tablet Take 1 tablet by mouth once daily for 30 days. BMI 38.28 - naltrexone 2 mg tablet Take 1 tablet by mouth once daily. - liraglutide (VICTOZA) 0.6 mg/ 0.1 ml subcutaneous pen injector Inject 0.6 mg daily via pen - cyanocobalamin 1,000 mcg/mL Inject 1 mL intramuscularly one time a week for 30 days, THEN 1 mL every 2 weeks for 60 days, THEN 1 mL once every month. - dextroamphetamine-amphetam ine (ADDERALL) 10 mg tablet Take 1 tablet by mouth once daily for 30 days. - busPIRone (BUSPAR) 10 mg tablet Take 1 tablet in the morning and 1 tablet in the evening. - diclofenac (VOLTAREN ARTHRITIS PAIN) 1 % topical gel Apply 2 g to affected area three times a day as needed. - triamcinolone acetonide (KENALOG) 0.5 % cream Apply 1 application to affected area daily at bedtime. On left lower leg skin lesion at ankle. Apply sparingly. Avoid face/skin fold. - Syringe with Needle, Safety (SAFETY-NAVDEEP 10CC SYR 21GX1.5) 10 mL 21 gauge x 1 1/2 syrg 1 Syringe as directed. - vitamin b complex (B COMPLETE) tab Take 1 tablet by mouth once daily. - tiZANidine (ZANAFLEX) 4 mg tablet Take 1 tablet by mouth every 8 hours as needed (muscle spasms). - ondansetron orally disintegrating (ZOFRAN ODT) 4 mg disintegrating tablet Take 1 tablet by mouth every 6 hours as needed for Nausea/Vomiting. Problem List As Of Date 04/11/2024 Noted Resolved Renal calculi [N20.0] 05/13/2010 03/10/2017 Hypothyroidism, acquired [E03.9] 05/13/2010 Lumbar disc disease [M51.9] 05/13/2010 Polycystic ovary syndrome [E28.2] 06/19/2010 Rosacea [L71.9] 06/19/2010 Dysmetabolic syndrome [E88.810] 01/15/2011 Acute right flank pain [R10.9] 06/28/2012 IBS (irritable bowel syndrome (more content not included)... [facility] -- SAMMY REDD ([id number]) 1980 F Date Time Provider Department [facility]/07[facility] your visit today, we recorded the following information about you: 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 APRN.PRINTING EQUIPMENT MECHANIC APPRENTICE 04/07/2024 9:47 AM Signed Please call patient and let her know that thyroid US showed one very small thyroid nodule to L side that has no change from prior ultrasounds. Continue to monitor. No need for FNA. Thank you, 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 APRN.Carol Sena LPN 04/07/2024 10:08 AM Signed Spoke with pt gave information provided. Pt voices understanding. Allergies As of Date: 04/07/2024 Noted Allergy Reaction ALEVE (NAPROXEN SODIUM) 04/28/2007 11 - Vomiting Comments: Ibuprofen without problems Vomiting with Aleve with one time use COMPAZINE (PROCHLORPERAZINE) 03/11/2023 1 - Mental Status Change MENTHOL 08/07/2022 2 - Rash METFORMIN 01/23/2017 8 - GI Upset MORPHINE (PF) 03/11/2023 14 - Other: See Comments Comments: Respiratory depression PENICILLINS 04/28/2007 7 - Swelling ADHESIVE 12/26/2020 2 - Rash Date Reviewed: 04/04/2024 Reviewed by: Bertha Rivera LPN - Fully Assessed Reason for Visit: Results [95] Prescriptions as of 04/07/2024 - acetaminophen 325 mg-caffeine 40 mg-butalbital 50 mg (FIORICET) per capsule Take 1 capsule by mouth every 6 hours as needed for pain or headache. - semaglutide, weight loss, (WEGOVY) 0.25 mg/0.5 mL pen injector Inject 0.5 mL subcutaneously one time a week for 28 days. - levothyroxine (SYNTHROID) 88 mcg tablet Take 1 tablet by mouth daily before breakfast. and skip 1 day weekly. - LORazepam (ATIVAN) 1 mg tablet Take 1 tablet by mouth two times a day as needed for anxiety for up to 90 days. - Phentermine HCl (ADIPEX-P) 37.5 mg tablet Take 1 tablet by mouth once daily for 30 days. BMI 38.28 - naltrexone 2 mg tablet Take 1 tablet by mouth once daily. - liraglutide (VICTOZA) 0.6 mg/ 0.1 ml subcutaneous pen injector Inject 0.6 mg daily via pen - cyanocobalamin 1,000 mcg/mL Inject 1 mL intramuscularly one time a week for 30 days, THEN 1 mL every 2 weeks for 60 days, THEN 1 mL once every month. - dextroamphetamine-amphetam ine (ADDERALL) 10 mg tablet Take 1 tablet by mouth once daily for 30 days. - busPIRone (BUSPAR) 10 mg tablet Take 1 tablet in the morning and 1 tablet in the evening. - diclofenac (VOLTAREN ARTHRITIS PAIN) 1 % topical gel Apply 2 g to affected area three times a day as needed. - triamcinolone acetonide (KENALOG) 0.5 % cream Apply 1 application to affected area daily at bedtime. On left lower leg skin lesion at ankle. Apply sparingly. Avoid face/skin fold. - Syringe with Needle, Safety (SAFETY-NAVDEEP 10CC SYR 21GX1.5) 10 mL 21 gauge x 1 1/2 syrg 1 Syringe as directed. - vitamin b complex (B COMPLETE) tab Take 1 tablet by mouth once daily. - tiZANidine (ZANAFLEX) 4 mg tablet Take 1 tablet by mouth every 8 hours as needed (muscle spasms). - Cholecalciferol, Vitamin D3, 125 mcg (5,000 unit) cap Take 1 capsule by mouth once daily. - ondansetron orally disintegrating (ZOFRAN ODT) 4 mg disintegrating tablet Take 1 tablet by mouth every 6 hours as needed for Nausea/Vomiting. Problem List As Of Date 04/07/2024 Noted Resolved Renal calculi [N20.0] 05/13/2010 03/10/2017 Hypothyroidism, acquired [E03.9] 05/13/2010 Lumbar disc disease [M51.9] 05/13/2010 Polycystic ovary syndrome [E28.2] 06/19/2010 Rosacea [L71.9] 06/19/2010 Dysmetabolic syndrome [E88.810] 01/15/2011 Acute right flank pain [R10.9] 06/28/2012 [...] [L65.9] 05/12/2022 History of renal stone [Z87.442] (more content not included)... Normal [facility] ECHOon 04-05-2024 Echocardiography Echocardiography Rep ort: Transthoracic Echo [facility] Date of service: 04/05/2024 8:18:19 AM STAFF Ordering physician: JOSE LUIS TOLEDO Indication: Shortness of Breath Technologist: Nanci Pryor RD Interpreting physician: Alfredo Montez MD PATIENT: Name: MRS. SAMMY REDD : 1980 Age: 44 years Gender: F History of dyslipidemia. Primary rhythm: sinus. Height: 152.40 cm BSA: 1.96 m Weight: 91.20 kg BMI: 39.3 kg/m Heart rate 70 bpm Blood pressure 112/73 mmHg Technically difficult exam due to body habitus. Color Doppler was utilized to interrogate the cardiac valves assessed and spectral Doppler was utilized to determine the flow velocities and pressure gradients reported in this exam. Myocardial strain analysis was performed in this exam to aid in the assessment of cardiac function. MEASUREMENTS: Value Indexed Normal Max aortic dimension 2.9 cm Ao < 3.8 Left atrial volume 61 ml (biplane A-L) 31 ml/m Ayala <= 34 LV ID (diastole) 4.5 cm (2D) 2.27 cm/m LV ID (systole) 2.8 cm (2D) 1.43 cm/m IVS, leaflet tips 0.8 cm (2D) Posterior wall thickness 0.8 cm (2D) Left ventricular mass 112 g (2D) 57 g/m Global peak long strain -19.9 % LV stroke volume 59 ml (2D biplane) LV end diastolic volume 94 ml (2D biplane) 48.0 ml/m 29<=EDVi<62 LV end systolic volume 35 ml (2D biplane) 17.8 ml/m Ejection Fraction 63 % (2D biplane) EF > 54 FINDINGS: LEFT VENTRICLE The left ventricle is normal in size. Left ventricular systolic function is normal. Global LV myocardial strain is normal. Normal left ventricular diastolic function. Mitral annular lateral E/e': 5.1. Mitral annular septal E/e': 7.5. Wall Motion: All scored segments are normal. RIGHT VENTRICLE The right ventricle is normal in size. Right ventricular systolic function is normal. RV systolic tissue Doppler velocity is 11.0 cm/s. Tricuspid annular displacement is 2.1 cm. Estimated right ventricular systolic pressure is 25 mmHg consistent with normal pulmonary artery pressures. Estimated right atrial pressure is 3 mmHg (although IVC not seen). LEFT ATRIUM The left atrial cavity is normal in size. Pulmonary Veins: The pulmonary venous pattern showed normal systolic flow. RIGHT ATRIUM The right atrial cavity is normal in size. Inferior Vena Cava: The inferior vena cava appears normal measuring 1.4 cm. MITRAL VALVE The mitral valve leaflets are structurally normal. There is no mitral valve regurgitation. The pressure half time is 57 msec. The peak mitral E/A ratio is 0.99. The average mitral E/e' ratio is 6.3. The mitral flow deceleration time is 197 msec. TRICUSPID VALVE The tricuspid valve leaflets are structurally normal. There is mild (1+) tricuspid valve regurgitation. AORTIC VALVE The aortic valve cusps are structurally normal. There is no aortic valve regurgitation. Tricuspid aortic valve. The peak gradient is 9 mmHg (peak velocity = 150.9 cm/s). PULMONIC VALVE The pulmonic valve cusps are structurally normal. There is trace pulmonic valve regurgitation. AORTA The visualized aorta is normal in size. Measurements - Mid ascending aorta 2.9 cm. PERICARDIUM There is no pericardial effusion. There is an epicardial fat pad. CONCLUSIONS: - Technically difficult exam due to body habitus. - Exam indication: Shortness of Breath - The left ventricle is normal in size. Left ventricular systolic function is normal. EF = 63 5% (2D biplane) Normal left ventricular diastolic function. - The right ventricle is normal in size. Right ventricular systolic function is normal. - There are no significant valvular abnormalities. - Exam was compared with the prior echocardiographic exam performed on 06/15/2017, no significant change. * * * Final * * * CC [facility] Advisor Medical Image : [id number] Normal [facility] US THYROID/PARATHYROIDon US THYROID/PARATHYROID * * *Final Report * * * DATE OF EXAM: Apr 05 2024 7:53AM WRU [id number] - US THYROID/PARATHYROID / PROCEDURE REASON: multiple diagnoses * * * * Physician Interpretation * * * * EXAMINATION: THYROID ULTRASOUND CLINICAL HISTORY: 44 years old Female with Hypothyroidism, acquired Thyroid nodule TECHNIQUE: Sonography and Doppler imaging of the thyroid was performed. Images were obtained and stored in a permanent archive. MQ: UST_1 COMPARISON: Thyroid ultrasound 05/19/2022 RESULT: Right Lobe: 4.2 cm x 0.9 cm x 1.2 cm; homogeneous echogenicity, expected vascular flow. Left Lobe: 3.4 cm x 0.8 cm x 0.8 cm; homogeneous echogenicity, expected vascular flow. Isthmus: 0.1 cm The most suspicious thyroid nodule(s) (up to four) as below: NODULE 1: Location: Left mid Size: 0.7 x 0.7 x 0.8 cm, previously 0.7 x 0.6 x 0.7 cm Characteristics: Composition: Composition cannot be determined because of calcification, 2 points Echogenicity: Echogenicity cannot be determined, 1 point Shape: Qalmz-rvwp-drac, 0 points Margin: Margin cannot be determined, 0 points Echogenic foci (add points for all that apply): Peripheral (rim) calcification (complete or incomplete), 2 points Internal vascularity: absent Interval growth: No significant growth given differences in technique TI-RADS Category: TR4 ACR Recommendation: TI-RADS 4 nodule. No FNA or follow-up imaging is advised. Incidentally noted nonenlarged (short axis diameter <10 mm) LEFT internal jugular lymph node unchanged since ultrasound 05/19/2022. IMPRESSION: Thyroid nodule(s) present is/are clinically insignificant. No surveillance is advised. TI-RADS Category: TR4 ACR Recommendation: TI-RADS 4 nodule. No FNA or follow-up imaging is advised. ACR recommendations are strictly based on the size and imaging appearance at the time of the exam and do not consider stability or previous biopsy results. Management Assistant: MARLON Transcribe Date/Time: Apr 07 2024 6:47A Dictated by : HAMIDA MARIA DO This examination was interpreted and the report reviewed and electronically signed by: HAMIDA MARIA DO on Apr 07 2024 6:51AM EST [id number] Normal [facility] 25(OH)D3 SerPl-mCncon 2023 25-hydroxyvitamin D3 [Mass/Vol] 32.6 ng/mL Normal 31.0-80.0 [facility] Comment on above: Order Comment: Shane kelly Type: BLOOD SPECIMEN Ordering Facility: [facility] Address: [address] [place] [address] Performed By: #### 1 989-3 #### [facility] CLIA [id number] [address] [place] [address] [place] CBC W Auto Differential pane l (Bld)on 04-04-2024 Basophils (Bld) [#/Vol] 0.06 10*3/uL Normal <0.11 [facility] Comment on above: Order Comment: Shane kelly Type: BLOOD SPECIMEN Ordering Facility: [facility] Address: [address] [place] [address] Performed By: #### 1 989-3 #### [facility] CLIA [id number] [address] [place] [address] [place] Basophils/100 WBC (Bld) 0.7 % Normal [facility] Comment on above: Order Comment: Shane kelly Type: BLOOD SPECIMEN Ordering Facility: [facility] Address: [address] [place] [address] Performed By: #### 1 989-3 #### [facility] CLIA [id number] [address] [place] [address] [place] Differential cell count method Nom (Bld) Auto Normal [facility] Comment on above: Order Comment: Speci men Type: BLOOD SPECIMEN Ordering Facility: [facility] Address: [address] [place] [address] Performed By: #### 1 989-3 #### [facility] CLIA [id number] [address] [place] [address] [place] Eosinophils (Bld) [#/Vol] 0.26 10*3/uL Normal <0.46 [facility] Comment on above: Order Comment: Speci men Type: BLOOD SPECIMEN Ordering Facility: [facility] Address: [address] [place] [address] Performed By: #### 1 989-3 #### [facility] CLIA [id number] [address] [place] [address] [place] Eosinophils/100 WBC (Bld) 3.1 % Normal [facility] Comment on above: Order Comment: Speci men Type: BLOOD SPECIMEN Ordering Facility: [facility] Address: [address] [place] [address] Performed By: #### 1 989-3 #### [facility] CLIA [id number] [address] [place] [address] [place] Erythrocyte distribution width (RBC) [Ratio] 13.2 % Normal 11.5-15.0 [facility] Comment on above: Order Comment: Speci men Type: BLOOD SPECIMEN Ordering Facility: [facility] Address: [address] [place] [address] Performed By: #### 1 989-3 #### [facility] CLIA [id number] [address] [place] [address] [place] Hematocrit (Bld) [Volume fraction] 44.0 % Normal 36.0-46.0 [facility] Comment on above: Order Comment: Speci men Type: BLOOD SPECIMEN Ordering Facility: [facility] Address: [address] [place] [address] Performed By: #### 1 989-3 #### [facility] CLIA [id number] [address] [place] [address] [place] Hemoglobin (Bld) [Mass/Vol] 14.3 g/dL Normal 11.5-15.5 [facility] Comment on above: Order Comment: Speci men Type: BLOOD SPECIMEN Ordering Facility: [facility] Address: [address] [place] [address] Performed By: #### 1 989-3 #### [facility] CLIA [id number] [address] [place] [address] [place] Immature granulocytes (Bld) [#/Vol] 10*3/uL Normal <0.10 [facility] Comment on above: Order Comment: Speci men Type: BLOOD SPECIMEN Ordering Facility: [facility] Address: [address] [place] [address] Performed By: #### 1 989-3 #### [facility] CLIA [id number] [address] [place] [address] [place] Immature granulocytes/100 WBC (Bld) 0.2 % Normal [facility] Comment on above: Order Comment: Speci men Type: BLOOD SPECIMEN Ordering Facility: [facility] Address: [address] [place] [address] Performed By: #### 1 989-3 #### [facility] CLIA [id number] [address] [place] [address] [place] Lymphocytes (Bld) [#/Vol] 2.56 10*3/uL Normal 1.00-4.00 [facility] Comment on above: Order Comment: Speci men Type: BLOOD SPECIMEN Ordering Facility: [facility] Address: [address] [place] [address] Performed By: #### 1 989-3 #### [facility] CLIA [id number] [address] [place] [address] [place] Lymphocytes/100 WBC (Bld) 30.6 % Normal [facility] Comment on above: Order Comment: Speci men Type: BLOOD SPECIMEN Ordering Facility: [facility] Address: [address] [place] [address] Performed By: #### 1 989-3 #### [facility] CLIA [id number] [address] [place] [address] [place] MCH (RBC) [Entitic mass] 30.3 pg Normal 26.0-34.0 [facility] Comment on above: Order Comment: Speci men Type: BLOOD SPECIMEN Ordering Facility: [facility] Address: [address] [place] [address] Performed By: #### 1 989-3 #### [facility] CLIA [id number] [address] [place] [address] [place] MCHC (RBC) [Mass/Vol] 32.5 g/dL Normal 30.5-36.0 [facility] Comment on above: Order Comment: Speci men Type: BLOOD SPECIMEN Ordering Facility: [facility] Address: [address] [place] [address] Performed By: #### 1 989-3 #### [facility] CLIA [id number] [address] [place] [address] [place] MCV (RBC) [Entitic vol] 93.2 fL Normal 80.0-100.0 [facility] Comment on above: Order Comment: Speci men Type: BLOOD SPECIMEN Ordering Facility: [facility] Address: [address] [place] [address] Performed By: #### 1 989-3 #### [facility] CLIA [id number] [address] [place] [address] [place] Monocytes (Bld) [#/Vol] 0.47 10*3/uL Normal <0.87 [facility] Comment on above: Order Comment: Speci men Type: BLOOD SPECIMEN Ordering Facility: [facility] Address: [address] [place] [address] Performed By: #### 1 989-3 #### [facility] CLIA [id number] [address] [place] [address] [place] Monocytes/100 WBC (Bld) 5.6 % Normal [facility] Comment on above: Order Comment: Speci men Type: BLOOD SPECIMEN Ordering Facility: [facility] Address: [address] [place] [address] Performed By: #### 1 989-3 #### [facility] CLIA [id number] [address] [place] [address] [place] Neutrophils (Bld) [#/Vol] 4.99 10*3/uL Normal 1.45-7.50 [facility] Comment on above: Order Comment: Speci men Type: BLOOD SPECIMEN Ordering Facility: [facility] Address: [address] [place] [address] Performed By: #### 1 989-3 #### [facility] CLIA [id number] [address] [place] [address] [place] Neutrophils/100 WBC (Bld) 59.8 % Normal [facility] Comment on above: Order Comment: Speci men Type: BLOOD SPECIMEN Ordering Facility: [facility] Address: [address] [place] [address] Performed By: #### 1 989-3 #### [facility] CLIA [id number] [address] [place] [address] [place] Nucleated RBC (Bld) [#/Vol] 10*3/uL Normal <0.01 [facility] Comment on above: Order Comment: Speci men Type: BLOOD SPECIMEN Ordering Facility: [facility] Address: [address] [place] [address] Performed By: #### 1 989-3 #### [facility] CLIA [id number] [address] [place] [address] [place] Nucleated RBC/100 WBC (Bld) [Ratio] 0.0 /100 WBC Normal [facility] Comment on above: Order Comment: Speci men Type: BLOOD SPECIMEN Ordering Facility: [facility] Address: [address] [place] [address] Performed By: #### 1 989-3 #### [facility] CLIA [id number] [address] [place] [address] [place] Platelet mean volume (Bld) [Entitic vol] 11.0 fL Normal 9.0-12.7 [facility] Comment on above: Order Comment: Speci men Type: BLOOD SPECIMEN Ordering Facility: [facility] Address: [address] [place] [address] Performed By: #### 1 989-3 #### [facility] CLIA [id number] [address] [place] [address] [place] Platelets (Bld) [#/Vol] 267 10*3/uL Normal 150-400 [facility] Comment on above: Order Comment: Speci men Type: BLOOD SPECIMEN Ordering Facility: [facility] Address: [address] [place] [address] Result Comment: No c lot detected. Performed By: #### 1 989-3 #### [facility] CLIA [id number] [address] [place] [address] [place] RBC (Bld) [#/Vol] 4.72 10*6/uL Normal 3.90-5.20 [facility] Comment on above: Order Comment: Speci men Type: BLOOD SPECIMEN Ordering Facility: [facility] Address: [address] [place] [address] Performed By: #### 1 989-3 #### [facility] CLIA [id number] [address] [place] [address] [place] WBC (Bld) [#/Vol] 8.36 10*3/uL Normal 3.70-11.00 [facility] Comment on above: Order Comment: Speci men Type: BLOOD SPECIMEN Ordering Facility: [facility] Address: [address] [place] [address] Performed By: #### 1 989-3 #### [facility] CLIA [id number] [address] [place] [address] [id number] [facility] CNOVon 04-04-2024 CNOV Office Visit (FAMPWS ) -- SAMMY REDD ([id number]) 1980 F Date Time Provider Department 04/04/24 10:00 AM [facility] During your visit today, we recorded the following information about you: Temperature Pulse Respiration Blood pressure 97.2 degrees 72/minute 16/minute 126/60 Weight 91.2 kg Jose Luis [place], 04/04/2024 11:20 AM Signed CC: Sammy Redd is a 44 year old female who presents to the office for follow up HPI: Previous visit on 11/26/23 in the office by Rosita Mark TAMEZ, at that time asked her for a divorce yesterday. Had an anxiety attack yesterday and had to call a squad to take her to the ER. Was on the ground for about 20 minutes, shaking, went on for about 1.5 hrs. ER gave her shot of Ativan which was helpful. Started counseling this morning, will be seeing her on a weekly basis. Requesting medication for now to help with her anxiety r/t current situation. Denies SI/HI. rx for ativan was refilled and buspirone added on to use if needed At last OFFICE VISIT on 12/2023 Mood, her and her have been able to meet with a therapist/marriage counselor as well as both starting individual counseling. She feels this is what was needed to help them through what her is struggling with mentally, which affects their marriage as well. Right lower abdominal pain, started a few weeks ago but is worsening. Hx of VIET and BSO. Was seen by CLINICAL BUSINESS ANALYST whom didn't feel this was related to her previous surgery. She has a hx of endometriosis that was severe. She is concerned since is causing her to feel nauseated as well. No vomiting, + decreased appetite Obesity, taking adipex and the naltrexone with benefit without obvious SE, needing rx refilled. Weight down to 199 lbs. Currently Mood, her and her have been able to meet with a therapist/marriage counselor as well as both starting individual counseling. She feels this is what was needed to help them through what her is struggling with mentally, which affects their marriage as well. Obesity, taking adipex and the naltrexone with benefit without obvious SE, needing rx refilled. Weight down to 199 lbs. Hx of thyroid nodule and hypothyroidism, thinks she is due for thyroid US recheck, no new symptoms Does get occasional palpitations and ORTEZ, fmhx of cardiomyopathy in mother. Last echo was 2018 and stable. Fibromyalgia, recently with increased myalgias, making it difficult for her to exercise consistently since she feels she has the flu after exercise with increased muscle aches. PAST MEDICAL HISTORY Diagnosis Date Anesthesia states mom had issues in 2013 leading to air emboli after surgery. pt herself has had no issues. Anxiety Cerebral aneurysm 2015 just watching scanned last 2021 - Dr. Oneal Complicated migraine Endometriosis 75% improvement in abdominal pain post lap surgery Fibromyalgia Hypothyroidism IBS (irritable bowel syndrome) Insulin resistance Kidney stone Lactose intolerance in adult Left thyroid nodule 12/2020 repeat thyroid US 12/2021 Low HDL (under 40) Low serum progesterone worsening symptoms with progesterone rx Lumbar disc disease 05/13/2010 Migraines CADENCE (obstructive sleep apnea) Last polysomnogram in 2012, last use in 2012 Personal history of kidney stones Polycystic ovary syndrome 06/19/2010 Protein S deficiency (HCC) 2008 clotting disorder (just had APPT drawn - in [facility]) PUD (peptic ulcer disease) 2010 treated [...] PYELOTOMY W/REMOVAL CALCULUS 04/27/2008 multiple VAGINAL HYSTERECTOMY Current Outpatient Medications Medication Sig levothyroxine (SYNTHROID) 88 mcg tablet Take 1 tablet by mouth daily before breakfast. and skip 1 day weekly. LORazepam (ATIVAN) 1 mg tablet Take 1 tablet by mouth two times a day as needed for anxiety for up to 90 days. Phentermine HCl (ADIPEX-P) 37.5 mg tablet Take 1 tablet by mouth once daily for 30 days. BMI 38.28 naltrexone 2 mg tablet Take 1 tablet by mouth once daily. acetaminophen 325 mg-caffeine 40 mg-butalbital 50 mg (FIORICET) per capsule Take 1 capsule by mouth every 6 hours as needed for pain or headache. liraglutide (VICTO (more content not included)... Normal [facility] Comprehensive metabolic 2000 panelon 04-04-2024 Albumin [Mass/Vol] 4.2 g/dL Normal 3.9-4.9 [facility] Comment on above: Order Comment: Speci men Type: BLOOD SPECIMENOrdering Facility: [facility] Address: [address] [place] [address] Performed By: #### 2 4323-8, 3051-0, 3016-3, 3024-7 ####[facility] [id number] [place] [address] [place] ALP [Catalytic activity/Vol] 66 U/L Normal 34-123 [facility] Comment on above: Order Comment: Speci men Type: BLOOD SPECIMENOrdering Facility: [facility] Address: [address] [place] [address] Performed By: #### 2 4323-8, 3051-0, 3016-3, 3024-7 ####[facility] [id number] [place] [address] [place] ALT [Catalytic activity/Vol] 19 U/L Normal 7-38 [facility] Comment on above: Order Comment: Speci men Type: BLOOD SPECIMENOrdering Facility: [facility] Address: [address] [place] [address] Performed By: #### 2 4323-8, 3051-0, 3016-3, 302-7 ####[facility] [id number] [place] [address] [place] Anion gap [Moles/Vol] 10 mmol/L Normal 8-15 [facility] Comment on above: Order Comment: Speci men Type: BLOOD SPECIMENOrdering Facility: [facility] Address: [address] [place] [address] Performed By: #### 2 4323-8, 3051-0, 3015-3, 7 ####[facility] [id number] [place] [address] [place] AST [Catalytic activity/Vol] 25 U/L Normal 13-35 [facility] Comment on above: Order Comment: Speci men Type: BLOOD SPECIMENOrdering Facility: [facility] Address: [address] [place] [address] Result Comment: Resu lts may be falsely increased due to interference from hemolysis. Suggest reorder as clinically indicated. Performed By: #### 2 4323-8, 3051-0, 3015-3, 7 ####[facility] [id number] [place] [id number] [place] Bilirubin [Mass/Vol] 0.4 mg/dL Normal 0.2-1.3 [facility] Comment on above: Order Comment: Speci men Type: BLOOD SPECIMENOrdering Facility: [facility] Address: [address] [place] [address] Performed By: #### 2 4323-8, 3051-0, 3016-3, 3023-7 ####[facility] [id number] [address] [address] [place] Calcium [Mass/Vol] 9.6 mg/dL Normal 8.5-10.2 [facility] Comment on above: Order Comment: Speci men Type: BLOOD SPECIMENOrdering Facility: [facility] Address: [address] [place] [address] Performed By: #### 2 4323-8, 3051-0, 3016-3, 302-7 ####[facility] [id number] [place] [id number] [place] Chloride [Moles/Vol] 104 mmol/L Normal 98-107 [facility] Comment on above: Order Comment: Speci men Type: BLOOD SPECIMENOrdering Facility: [facility] Address: [address] [place] [address] Performed By: #### 2 4323-8, 305-0, 3015-3, 3023-7 ####[facility] [id number] [place] [address] [place] CO2 [Moles/Vol] 27 mmol/L Normal 22-30 [facility] Comment on above: Order Comment: Speci men Type: BLOOD SPECIMENOrdering Facility: [facility] Address: [address] [place] [address] Performed By: #### 2 4323-8, 305-0, 3015-3, 3023-7 ####[facility] [id number] [address] [address] [place] Creatinine [Mass/Vol] 0.69 mg/dL Normal 0.58-0.96 [facility] Comment on above: Order Comment: Speci men Type: BLOOD SPECIMENOrdering Facility: [facility] Address: [address] [place] [address] Performed By: #### 2 4323-8, 3051-0, 3015-3, 302-7 ####[facility] [id number] [address] [place] Creatinine and Glomerular filtration rate.predicted panel (S/P/Bld) 110 mL/min/1.73m??? Normal >=60 [facility] Comment on above: Order Comment: Shane kelly Type: BLOOD SPECIMENOrdering Facility: [facility] Address: [address] [place] [address] Result Comment: Trish mated Glomerular Filtration Rate (eGFR) is calculated using the 2020 CKD-EPI creatinine equation. This equation utilizes serum creatinine, sex, and age as parameters. The creatinine assay has traceable calibration to isotope dilution-mass spectrometry. Refer to KDIGO guidelines for clinical interpretation. In patients with unstable renal function, e.g. those with acute kidney injury, the eGFR may not accurately reflect actual GFR. Performed By: #### 2 4323-8, 3051-0, 3016-3, 3024-7 ####[facility] LABIA [id number] [place] [address] [place] Glucose [Mass/Vol] 89 mg/dL Normal 74-99 [facility] Comment on above: Order Comment: Shane kelly Type: BLOOD SPECIMENOrdering Facility: [facility] Address: [address] [place] [address] Result Comment: The [place] Diabetes Association (ADA) provides guidance for cutoff values for fasting glucose and random glucose. The ADA defines fasting as no caloric intake for at least 8 hours. Fasting plasma glucose results between 100 to 125 [...] Standards of Medical Care in Diabetes 2016, [place] Diabetes Association. Diabetes Care. 2016.39(Suppl 1). Performed By: #### 2 4323-8, 3051-0, 3016-3, 3024-7 ####[facility] LABCLIA [id number] [address] [address] [place] Potassium [Moles/Vol] 4.5 mmol/L Normal 3.7-5.1 [facility] Comment on above: Order Comment: Speci men Type: BLOOD SPECIMENOrdering Facility: [facility] Address: [address] [place] [address] Performed By: #### 2 4323-8, 3051-0, 3015-3, 3023-7 ####[facility] LABCLIA [id number] [address] [address] [place] Protein [Mass/Vol] 7.2 g/dL Normal 6.3-8.0 [facility] Comment on above: Order Comment: Speci men Type: BLOOD SPECIMENOrdering Facility: [facility] Address: [address] [place] [address] Performed By: #### 2 4323-8, 305-0, 3015-3, 7 ####[facility] LABCLIA [id number] [place] [id number] [place] Sodium [Moles/Vol] 141 mmol/L Normal 136-144 [facility] Comment on above: Order Comment: Speci men Type: BLOOD SPECIMENOrdering Facility: [facility] Address: [address] [place] [address] Performed By: #### 2 4323-8, 305-0, 3015-3, 7 ####[facility] LABCLIA [id number] [address] [address] [place] Urea nitrogen [Mass/Vol] 13 mg/dL Normal 7-21 [facility] Comment on above: Order Comment: Speci men Type: BLOOD SPECIMENOrdering Facility: [facility] Address: [address] [place] [address] Performed By: #### 2 4323-8, 305-0, 3015-3, 302-7 ####[facility] LABCLIA [id number] [place] [address] [place] HbA1c (Bld)on 04-04-2024 Average glucose Estimated from glycated hemoglobin (Bld) [Mass/Vol] 108 mg/dL Normal [facility] Comment on above: Order Comment: Shane kelly Type: BLOOD SPECIMEN Ordering Facility: [facility] Address: [address] [place] [address] Result Comment: eAG: (Estimated average glucose) is a calculated value from HgbA1c and is sales representative marine supplies of the average blood glucose level in the last 2-3 month period. Performed By: #### 1 989-3 #### [facility] LAB IA [id number] [address] [place] [address] [place] HbA1c (Bld) [Mass fraction] 5.4 % Normal 4.3-5.6 [facility] Comment on above: Order Comment: Shane kelly Type: BLOOD SPECIMEN Ordering Facility: [facility] Address: [address] [place] [address] Result Comment: Amer [place] Diabetes Association guidelines indicate that patients with HgbA1c in the range 5.7-6.4% are at increased risk for development of diabetes, and intervention by lifestyle modification may be beneficial. HgbA1c greater or equal to 6.5% is considered diagnostic of diabetes. Performed By: #### 1 989-3 #### [facility] [place] [id number] [address] [place] [address] [place] Insulin SerPl-aCncon 024 Insulin Qn 7.4 u[IU]/mL Normal 3.0-25.0 [facility] Comment on above: Order Comment: Shane kelly Type: BLOOD SPECIMEN Ordering Facility: [facility] Address: [address] [place] [address] Performed By: #### 1 989-3 #### [facility] CLIA [id number] [address] [place] [address] [place] T3Free SerPl-mCncon 04-04-20 24 Free T3 [Mass/Vol] 2.7 pg/mL Normal 2.3-4.1 [facility] Comment on above: Order Comment: Shane kelly Type: BLOOD SPECIMENOrdering Facility: [facility] Address: [address] [place] [address] Performed By: #### 2 4323-8, 3051-0, 3016-3, 3024-7 ####[facility] LABCLIA [id number] [place] [address] [place] T4 Free SerPl-mCncon 024 Free T4 [Mass/Vol] 1.4 ng/dL Normal 0.9-1.7 [facility] Comment on above: Order Comment: Shane kelly Type: BLOOD SPECIMENOrdering Facility: [facility] Address: [address] [place] [address] Performed By: #### 2 4323-8, 3051-0, 3016-3, 3024-7 ####[facility] LABCLIA [id number] [place] [address] [place] TSH SerPl-aCncon 04-04-2024 TSH Qn 0.902 m[IU]/L Normal 0.270-4.200 [facility] Comment on above: Order Comment: Shane kelly Type: BLOOD SPECIMENOrdering Facility: [facility] Address: [address] [place] [address] Result Comment: If t he patient is , TSH reference range varies by gestational period: First Trimester (weeks 9-12): 0.180-2.990 mIU/L Second Trimester: 0.110-3.980 mIU/L Third Trimester: 0.480-4.710 mIU/L Devon Lim et al. A Practical Approach for the Verifications and Determination of Site- and Trimester-Specific Reference Intervals for Thyroid Function tests in . Thyroid, 2019:29:3:412-420. Gordon Cuadra, et al. 2017 Guidelines of the [place] Thyroid Association for the Diagnosis and Management of Thyroid Disease during and the . Thyroid, 2017:27:3:315-389. Performed By: #### 2 4323-8, 3051-0, 3016-3, 3024-7 ####[facility] LABCLIA [id number] [address] [place] Eliseo 02-09-2024 CNPN Telephone (FAMPWS) -- SAMMY REDD ([id number]) 1980 F Date Time Provider Department 02/09/24 [facility] During your visit today, we recorded the following information about you: Jose Luis Toledo DO 02/09/2024 10:50 AM Signed Please inform patient that CT abd/pelvis is normal appearing DO Miguel Shook Susan LPN 02/09/2024 1:02 PM Signed Pt. informed via my Chart. Allergies As of Date: 02/09/2024 Noted Allergy Reaction ALEVE (NAPROXEN SODIUM) 04/28/2007 11 - Vomiting Comments: Ibuprofen without problems Vomiting with Aleve with one time use COMPAZINE (PROCHLORPERAZINE) 03/11/2023 1 - Mental Status Change MENTHOL 08/07/2022 2 - Rash METFORMIN 01/23/2017 8 - GI Upset MORPHINE (PF) 03/11/2023 14 - Other: See Comments Comments: Respiratory depression PENICILLINS 04/28/2007 7 - Swelling ADHESIVE 12/26/2020 2 - Rash Date Reviewed: 01/13/2024 Reviewed by: Evens Stacy, RT(R) - Fully Assessed Prescriptions as of 02/09/2024 - naltrexone 0.5 mg capsule (CPD) Take 1 capsule by mouth once daily. To add to the 2 mg dose daily - cyanocobalamin 1,000 mcg/mL Inject 1 mL intramuscularly one time a week for 30 days, THEN 1 mL every 2 weeks for 60 days, THEN 1 mL once every month. - naltrexone 2 mg tablet Take 1 tablet by mouth once daily. - dextroamphetamine-amphetam ine (ADDERALL) 10 mg tablet Take 1 tablet by mouth once daily for 30 days. - busPIRone (BUSPAR) 10 mg tablet Take 1 tablet in the morning and 1 tablet in the evening. - LORazepam (ATIVAN) 1 mg tablet Take 1 tablet by mouth two times a day as needed for anxiety for up to 90 days. - diclofenac (VOLTAREN ARTHRITIS PAIN) 1 % topical gel Apply 2 g to affected area three times a day as needed. - triamcinolone acetonide (KENALOG) 0.5 % cream Apply 1 application to affected area daily at bedtime. On left lower leg skin lesion at ankle. Apply sparingly. Avoid face/skin fold. - Syringe with Needle, Safety (SAFETY-NAVDEEP 10CC SYR 21GX1.5) 10 mL 21 gauge x 1 1/2 syrg 1 Syringe as directed. - vitamin b complex (B COMPLETE) tab Take 1 tablet by mouth once daily. - levothyroxine (SYNTHROID) 88 mcg tablet Take 1 tablet by mouth daily before breakfast. and skip 1 day weekly. - tiZANidine (ZANAFLEX) 4 mg tablet Take 1 tablet by mouth every 8 hours as needed (muscle spasms). - Cholecalciferol, Vitamin D3, 125 mcg (5,000 unit) cap Take 1 capsule by mouth once daily. - ondansetron orally disintegrating (ZOFRAN ODT) 4 mg disintegrating tablet Take 1 tablet by mouth every 6 hours as needed for Nausea/Vomiting. Problem List As Of Date 02/09/2024 Noted Resolved Renal calculi [N20.0] 05/13/2010 03/10/2017 Hypothyroidism, acquired [E03.9] 05/13/2010 Lumbar disc disease [M51.9] 05/13/2010 Polycystic ovary syndrome [E28.2] 06/19/2010 Rosacea [L71.9] 06/19/2010 Dysmetabolic syndrome [E88.810] 01/15/2011 Acute right flank pain [R10.9] 06/28/2012 [...] [E61.2] 06/30/2022 Obesity, Class II, BMI 35-39.9 [E66.812] 06/30/2022 Calculus of kidney [N20.0] 06/30/2022 Ureteral stone [N20.1] 02/09/2023 Gross hematuria [R31.0] 02/09/2023 Preop testing [Z01.818] 03/10/2023 Acute cystitis without hematuria [N30.00] 03/24/2023 Stiffness of hand joint [M25.649] 09/30/2023 Finger swelling [M79.89] 09/30/2023 Vitamin B12 deficiency [E5 (more content not included)... Normal [facility] CTA Head W/WO Contraston CTA Head W/WO Contrast [facility] Imaging Services [address] [place], [place] [address] CTA Head W/WO Contrast MR#: [id number] Acct: [id number] Name: SAMMY REDD Rep #: [id number] : 1980 F 44 From: Bill Walter MD PCP: Dr. Jose Luis Toledo, DO Status: REG CLI Study: CTA Head W/WO Contrast Date of Exam: 02/08/24 Exam# [id number] Ordering Dr: Juvencio Oneal MD [id number] STUDY: CT BRAIN WITH AND WITHOUT CONTRAST REASON FOR EXAM: Female, 44 years old. follow-up prominent RED infundibulum vs aneurysm RADIATION DOSAGE (If Supplied By Facility): CTDIvol = ( 27.29 ) mGy, DLP = ( 1166.03 ) mGycm TECHNIQUE: Transaxial CT imaging of the brain was performed pre and post contrast administration. The examination was performed with intravenous administration of IV 100mL Isovue-370. Individualized dose optimization techniques were used for this CT. COMPARISON: None. FINDINGS: Normal soft tissue structures. Normal calvarium. Normal size ventricles and extra-axial spaces for the patient''s age. Normal white matter tracts of the cerebral hemispheres. Normal basal ganglia and thalami. Normal brainstem. Normal cerebellum. 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 A definite aneurysm is not visualized. There is no intracranial hemorrhage. There are no findings of an acute ischemic infarction. Normal visualized paranasal sinuses. 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 Electronically Signed: Bill Walter MD at 9:01 EDT , CC: Dr. Jose Luis Toledo DO; Dr. Juvencio Oneal MD Management Assistant: Signed Normal [facility] CT Abdomen and Pelvis W cont rast Dorie 01-14-2024 IMPRESSION: No acute findings or significant pathology. Management Assistant: MARLON Transcribe Date/Time: Jan 14 2024 2:23P Dictated by : TANYA NAVARRO MD This examination was interpreted and the report reviewed and electronically signed by: TANYA NAVARRO MD on Jan 14 2024 4:44PM [facility] DIVISION OF RADIOLOGY * * *Final Report* * * DATE OF EXAM: Jan 14 2024 11:48AM [facility] 0530 - CT ABD/PEL W IVCON / PROCEDURE REASON: multiple diagnoses * * * * Physician Interpretation * * * * EXAMINATION: CT ABD/PEL W IVCON CLINICAL HISTORY: Endometriosis Right lower quadrant abdominal pain TECHNIQUE: CT of the abdomen and pelvis was performed using standard technique, scanning from just above the dome of the diaphragm to the symphysis pubis. Contrast: IV: 100 ml of Omnipaque 350 Oral: 10 ml of Omni 240 10-25ml diluted with water Dose-Length Product (DLP): 999 mGy*cm CT Dose Reduction Employed: Automated exposure control(AEC) and iterative recon COMPARISON: 09/29/2023 RESULT: Lower thorax: Unremarkable. Liver: No mass. Biliary: Normal caliber postcholecystectomy biliary tree. Spleen: No mass. No splenomegaly. Pancreas: No mass or ductal dilatation. Adrenal glands: Unremarkable. Kidneys: Subcentimeter left renal cyst, too small to reliably characterize, and statistically most likely a benign finding. Attention on follow-up recommended. No solid, enhancing mass or hydronephrosis in either kidney. Vascular: Normal caliber abdominal aorta . GI tract: No dilation or wall thickening. The appendix is not visualized and likely surgically absent. No right lower quadrant or pericolonic inflammatory changes. Pelvis: No mass, fluid or collection. Unremarkable urinary bladder . The uterus is surgically absent. Lymph nodes: No abdominal or pelvic lymphadenopathy, by size criteria. Mesentery/Peritoneum/Retro peritoneum: No ascites, pneumoperitoneum or suspicious mass. Soft Tissues/Bones: No destructive osseous lesion. No suspicious body wall findings. Normal size fat containing umbilical hernia, stable. DIVISION OF RADIOLOGY Provider, [facility] - 01/14/2024 * * *Final Report* * * DATE OF EXAM: Jan 14 2024 11:48AM [facility] 0530 - CT ABD/PEL W IVCON / PROCEDURE REASON: multiple diagnoses * * * * Physician Interpretation * * * * EXAMINATION: CT ABD/PEL W IVCON CLINICAL HISTORY: Endometriosis Right lower quadrant abdominal pain TECHNIQUE: CT of the abdomen and pelvis was performed using standard technique, scanning from just above the dome of the diaphragm to the symphysis pubis. Contrast: IV: 100 ml of Omnipaque 350 Oral: 10 ml of Omni 240 10-25ml diluted with water Dose-Length Product (DLP): 999 mGy*cm CT Dose Reduction Employed: Automated exposure control(AEC) and iterative recon COMPARISON: 09/29/2023 RESULT: Lower thorax: Unremarkable. Liver: No mass. Biliary: Normal caliber postcholecystectomy biliary tree. Spleen: No mass. No splenomegaly. Pancreas: No mass or ductal dilatation. Adrenal glands: Unremarkable. Kidneys: Subcentimeter left renal cyst, too small to reliably characterize, and statistically most likely a benign finding. Attention on follow-up recommended. No solid, enhancing mass or hydronephrosis in either kidney. Vascular: Normal caliber abdominal aorta . GI tract: No dilation or wall thickening. The appendix is not visualized and likely surgically absent. No right lower quadrant or pericolonic inflammatory changes. Pelvis: No mass, fluid or collection. Unremarkable urinary bladder . The uterus is surgically absent. Lymph nodes: No abdominal or pelvic lymphadenopathy, by size criteria. Mesentery/Peritoneum/Retro peritoneum: No ascites, pneumoperitoneum or suspicious mass. Soft Tissues/Bones: No destructive osseous lesion. No suspicious body wall findings. Normal size fat containing umbilical hernia, stable. IMPRESSION IMPRESSION: No acute findings or significant pathology. Management Assistant: PSCB Transcribe Date/Time: Jan 14 2024 2:23P Dictated by : TANYA NAVARRO MD This examination was interpreted and the report reviewed and electronically signed by: TANYA NAVARRO MD on Jan 14 2024 4:44PM EST [facility] Radiology Study observation (narrative) [facility] CT Abdomen and Pelvis W cont rast IVOrdered By: [facility]cf Provider on 01-14-2024 [facility] CREATININE BLDon 01-04-2024 Creatinine [Mass/Vol] 0.68 mg/dL 0.58 - 0.96 mg/dL [facility] GFR/1.73 sq M.predicted among non-blacks MDRD (S/P/Bld) [Vol rate/Area] 111 mL/min/{1.73_m2} - PINF [facility] Comment on above: Estimated Glomerular Filtration Rate (eGFR) is calculated using the 2020 CKD-EPI creatinine equation. This equation utilizes serum creatinine, sex, and age as parameters. The creatinine assay has traceable calibration to isotope dilution-mass spectrometry. Refer to KDIGO guidelines for clinical interpretation. In patients with unstable renal function, e.g. those with acute kidney injury, the eGFR may not accurately reflect actual GFR. Interpretation and review of laboratory results Normal [facility] Eliseo 10-02-2023 [place]IGN[place] Telephone (URCANT) -- SAMMY REDD ([id number]) 1980 F Date Time Provider Department 10/02/23 PERLITA CUNN[place]HAM During your visit today, we recorded the following information about you: Paul Reevese 10/02/2023 2:23 PM Signed ----- Message from Shahnaz De León MA sent at 10/01/2023 9:40 AM EDT ----- Left vm for pt to call office back. Shahnaz De León MA ----- Message ----- From: Perlita Cunningham APRN.PRINTING EQUIPMENT MECHANIC APPRENTICE Sent: 10/01/2023 9:30 AM EDT To: Tennille Gilbert Clinical Pool CT did not show any kidney stones. Thanks, Perlita Cunningham APRN.PRINTING EQUIPMENT MECHANIC APPRENTICE Leandro Karuna 10/02/2023 2:24 PM Signed Called and spoke with patient. Informed her of message. Verbalized understanding and thanks. Karuna Reeves BLANKET WASHER Allergies As of Date: 10/02/2023 Noted Allergy Reaction ALEVE (NAPROXEN SODIUM) 04/28/2007 11 - Vomiting Comments: Ibuprofen without problems Vomiting with Aleve with one time use COMPAZINE (PROCHLORPERAZINE) 03/11/2023 1 - Mental Status Change MENTHOL 08/07/2022 2 - Rash METFORMIN 01/23/2017 8 - GI Upset MORPHINE (PF) 03/11/2023 14 - Other: See Comments Comments: Respiratory depression PENICILLINS 04/28/2007 7 - Swelling ADHESIVE 12/26/2020 2 - Rash Date Reviewed: 09/29/2023 Reviewed by: Bertha Rivera LPN - Fully Assessed Prescriptions as of 10/02/2023 - Phentermine HCl (ADIPEX-P) 37.5 mg tablet Take 1 tablet by mouth once daily for 30 days. BMI 38.28 - LORazepam (ATIVAN) 0.5 mg Take 1 tablet by mouth once daily as needed for up to 30 days. - triamcinolone acetonide (KENALOG) 0.5 % cream Apply 1 application to affected area daily at bedtime. On left lower leg skin lesion at ankle. Apply sparingly. Avoid face/skin fold. - cyanocobalamin 1,000 mcg/mL Inject 1 mL intramuscularly one time a week for 30 days, THEN 1 mL every 2 weeks for 60 days, THEN 1 mL once every month. - lisdexamfetamine (VYVANSE) 20 mg capsule Take 1 capsule by mouth once daily for 30 days. In the morning - Syringe with Needle, Safety (SAFETY-NAVDEEP 10CC SYR 21GX1.5) 10 mL 21 gauge x 1 1/2 syrg 1 Syringe as directed. - dextroamphetamine-amphetam ine (ADDERALL) 10 mg tablet Take 1 tablet by mouth once daily for 30 days. Do not start before September 01, 2023. - diclofenac (VOLTAREN ARTHRITIS PAIN) 1 % topical gel Apply 2 g to affected area three times a day as needed. - vitamin b complex (B COMPLETE) tab Take 1 tablet by mouth once daily. - levothyroxine (SYNTHROID) 88 mcg tablet Take 1 tablet by mouth daily before breakfast. and skip 1 day weekly. - tiZANidine (ZANAFLEX) 4 mg tablet Take 1 tablet by mouth every 8 hours as needed (muscle spasms). - Cholecalciferol, Vitamin D3, 125 mcg (5,000 unit) cap Take 1 capsule by mouth once daily. - ondansetron orally disintegrating (ZOFRAN ODT) 4 mg disintegrating tablet Take 1 tablet by mouth every 6 hours as needed for Nausea/Vomiting. Problem List As Of Date 10/02/2023 Noted Resolved Renal calculi [N20.0] 05/13/2010 03/10/2017 Hypothyroidism, acquired [E03.9] 05/13/2010 Lumbar disc disease [M51.9] 05/13/2010 Polycystic ovary syndrome [E28.2] 06/19/2010 Rosacea [L71.9] 06/19/2010 Dysmetabolic syndrome [E88.810] 01/15/2011 Acute right flank pain [R10.9] 06/28/2012 [...] Obesity, Class II, BMI 35-39.9 [E66.9] 06/30/2022 Calculus of kidney [N20.0] 06/30/2022 Ureteral stone (more content not included)... [facility] Tele[facility] ([id number]) -- SAMMY REDD ([id number]) 1980 F Date Time Provider Department 10/01/23 NELIDA IRVING [id number] During your visit today, we recorded the following information about you: Shahnaz De León MA 10/01/2023 11:09 AM Signed Pt called and left a vm stating she was calling us back. I do not see an encounter. Shahnaz De León MA Allergies As of Date: 10/01/2023 Noted Allergy Reaction ALEVE (NAPROXEN SODIUM) 04/28/2007 11 - Vomiting Comments: Ibuprofen without problems Vomiting with Aleve with one time use COMPAZINE (PROCHLORPERAZINE) 03/11/2023 1 - Mental Status Change MENTHOL 08/07/2022 2 - Rash METFORMIN 01/23/2017 8 - GI Upset MORPHINE (PF) 03/11/2023 14 - Other: See Comments Comments: Respiratory depression PENICILLINS 04/28/2007 7 - Swelling ADHESIVE 12/26/2020 2 - Rash Date Reviewed: 09/29/2023 Reviewed by: Bertha Rivera LPN - Fully Assessed Prescriptions as of 10/01/2023 - Phentermine HCl (ADIPEX-P) 37.5 mg tablet Take 1 tablet by mouth once daily for 30 days. BMI 38.28 - LORazepam (ATIVAN) 0.5 mg Take 1 tablet by mouth once daily as needed for up to 30 days. - triamcinolone acetonide (KENALOG) 0.5 % cream Apply 1 application to affected area daily at bedtime. On left lower leg skin lesion at ankle. Apply sparingly. Avoid face/skin fold. - cyanocobalamin 1,000 mcg/mL Inject 1 mL intramuscularly one time a week for 30 days, THEN 1 mL every 2 weeks for 60 days, THEN 1 mL once every month. - lisdexamfetamine (VYVANSE) 20 mg capsule Take 1 capsule by mouth once daily for 30 days. In the morning - Syringe with Needle, Safety (SAFETY-NAVDEEP 10CC SYR 21GX1.5) 10 mL 21 gauge x 1 1/2 syrg 1 Syringe as directed. - dextroamphetamine-amphetam ine (ADDERALL) 10 mg tablet Take 1 tablet by mouth once daily for 30 days. Do not start before September 01, 2023. - diclofenac (VOLTAREN ARTHRITIS PAIN) 1 % topical gel Apply 2 g to affected area three times a day as needed. - vitamin b complex (B COMPLETE) tab Take 1 tablet by mouth once daily. - levothyroxine (SYNTHROID) 88 mcg tablet Take 1 tablet by mouth daily before breakfast. and skip 1 day weekly. - tiZANidine (ZANAFLEX) 4 mg tablet Take 1 tablet by mouth every 8 hours as needed (muscle spasms). - Cholecalciferol, Vitamin D3, 125 mcg (5,000 unit) cap Take 1 capsule by mouth once daily. - ondansetron orally disintegrating (ZOFRAN ODT) 4 mg disintegrating tablet Take 1 tablet by mouth every 6 hours as needed for Nausea/Vomiting. Problem List As Of Date 10/01/2023 Noted Resolved Renal calculi [N20.0] 05/13/2010 03/10/2017 Hypothyroidism, acquired [E03.9] 05/13/2010 Lumbar disc disease [M51.9] 05/13/2010 Polycystic ovary syndrome [E28.2] 06/19/2010 Rosacea [L71.9] 06/19/2010 Dysmetabolic syndrome [E88.810] 01/15/2011 Acute right flank pain [R10.9] 06/28/2012 [...] Obesity, Class II, BMI 35-39.9 [E66.9] 06/30/2022 Calculus of kidney [N20.0] 06/30/2022 Ureteral stone [N20.1] 02/09/2023 Gross hematuria [R31.0] 02/09/2023 Preop testing [Z01.818] 03/10/2023 Acute cystitis without hematuria [N30.00] 03/24/2023 Stiffness of hand joint [M25.649] 09/30/2023 Finger swelling [M79.89] 09/30/2023 Vitamin B12 deficiency [E53.8] 09/30/2023 Encounter Status:Closed by SHAHNAZ DE LEÓN (more content not included)... Normal [facility] BLADDER SCANon 09-22-2023 PVR 0ml [facility] CNOVon 09-22-2023 CNOV Office Visit (URCA52 2) -- SAMMY REDD ([id number]) 1980 F Date Time Provider Department 09/22/23 9:30 AM NELIDA IRVING [id number] During your visit today, we recorded the following information about you: Nelida Irving APRN.PRINTING EQUIPMENT MECHANIC APPRENTICE 09/22/2023 9:44 AM Signed [facility] ESTABLISHED PATIENT OFFICE VISIT Patient presents with: Right ureteral stone HISTORY OF PRESENT ILLNESS Sammy Redd is a 43 year old female who is here for follow up of renal stone Since last visit she has continued to have intermittent R sided flank pain. She denies any urinary issues, no dysuria or hematuria. KUB 09/17/23- no obvious stones noted. PVR 0ml UA clear Review of Systems The remainder of the ROS was reviewed and is negative. LAB Creatinine Date Value Ref Range Status 08/10/2023 0.64 0.58 - 0.96 mg/dL Final No results found for: PSA, PSASC GLUCOSE UA (POCT) (mg/dL) Date Value 04/06/2023 Negative BILIRUBIN UA (POCT) (no units) Date Value 04/06/2023 Negative KETONE UA (POCT) (mg/dL) Date Value 04/06/2023 Negative SPECIFIC GRAVITY UA (POCT) (no units) Date Value 04/06/2023 >=1.030 HEMOGLOBIN/BLOOD UA (POCT) (no units) Date Value 04/06/2023 Negative PH UA (POCT) (no units) Date Value 04/06/2023 6.0 PROTEIN UA (POCT) (mg/dL) Date Value 04/06/2023 Negative UROBILINOGEN UA (POCT) (E.U./dL) Date Value 04/06/2023 0.2 NITRITE UA (POCT) (no units) Date Value 04/06/2023 Negative LEUKOCYTES UA (POCT) (no units) Date Value 04/06/2023 Negative COLOR UA (POCT) (no units) Date Value 04/06/2023 Yellow CLARITY UA (POCT) (no units) Date Value 04/06/2023 Clear ] MEDICATIONS dextroamphetamine-amphetam ine (ADDERALL) 10 mg tablet Take 1 tablet by mouth once daily for 30 days. dextroamphetamine-amphetam ine (ADDERALL) 10 mg tablet Take 1 tablet by mouth once daily for 30 days. Do not start before September 01, 2023. dextroamphetamine-amphetam ine (ADDERALL) 10 mg tablet Take 1 tablet by mouth once daily for 30 days. Do not start before August 04, 2023. diclofenac (VOLTAREN ARTHRITIS PAIN) 1 % topical gel Apply 2 g to affected area three times a day as needed. vitamin b complex (B COMPLETE) tab Take 1 tablet by mouth once daily. levothyroxine (SYNTHROID) 88 mcg tablet Take 1 tablet by mouth daily before breakfast. and skip 1 day weekly. tiZANidine (ZANAFLEX) 4 mg tablet Take 1 tablet by mouth every 8 hours as needed (muscle spasms). Magnesium Oxide 250 mg magnesium tab Take 1 tablet by mouth daily at bedtime. triamcinolone acetonide (KENALOG) 0.5 % cream Apply 1 application to affected area daily at bedtime. On left lower leg skin lesion at ankle. Apply sparingly. Avoid face/skin fold. carbonyl iron 15 mg chew Take 1 tablet by mouth twice daily with meals. Cholecalciferol, Vitamin D3, 125 mcg (5,000 unit) cap Take 1 capsule by mouth once daily. (Patient taking differently: Take 5,000 Units by mouth every morning.) ondansetron orally disintegrating (ZOFRAN ODT) 4 mg disintegrating tablet Take 1 tablet by mouth every 6 hours as needed for Nausea/Vomiting. 0 HISTORIES PAST MEDICAL HISTORY Diagnosis Date [...] disorder (just had APPT drawn - in [facility]) PUD (peptic ulcer disease) 2009 treated medically, [...] HISTORY Problem Relation Age of Onset Breast Canc (more content not included)... Normal [facility] UA DIP, URINE (POC)on 2023 BILIRUBIN UA (POCT) Negative Negative Ron [facility] CLARITY UA (POCT) Clear [facility] COLOR UA (POCT) Yellow [facility] GLUCOSE UA (POCT) Negative Negative mg/dL [facility] Hemoglobin Ql (U) Negative Negative [facility] KETONE UA (POCT) Negative Negative mg/dL [facility] LEUKOCYTES UA (POCT) Negative [facility] NITRITE UA (POCT) Negative Negative [facility] PH UA (POCT) 7.0 4.5 - 8.0 [facility] Protein Ql (U) Negative Negative mg/dL [facility] SPECIFIC GRAVITY UA (POCT) 1.025 1.005 - 1.030 [facility] UROBILINOGEN UA (POCT) 0.2 Georgina l E.U./dL [facility] XR Abdomen Supine and Uprigh ton 09-20-2023 IMPRESSION: Nonspecific nonobstructive bowel gas pattern. Management Assistant: MARLON Transcribe Date/Time: Sep 20 2023 3:18P Dictated by : ERNA NORIEGA MD This examination was interpreted and the report reviewed and electronically signed by: ERNA NORIEGA MD on Sep 20 2023 3:19PM [facility] DIVISION OF RADIOLOGY * * *Final Report* * * DATE OF EXAM: Sep 17 2023 11:28AM [id number] - XR ABDOMEN 1V SUPINE / PROCEDURE REASON: Right ureteral stone * * * * Physician Interpretation * * * * CLINICAL: Right ureteral stone TECHNIQUE: Single KUB of the abdomen. COMPARISON: 03/23/2023 FINDINGS: A nonspecific nonobstructive bowel gas pattern is present. No pathologic calcifications are seen. The osseous structures are grossly normal. DIVISION OF RADIOLOGY Provider, [facility] - 09/20/2023 * * *Final Report* * * DATE OF EXAM: Sep 17 2023 11:28AM [id number] - XR ABDOMEN 1V SUPINE / PROCEDURE REASON: Right ureteral stone * * * * Physician Interpretation * * * * CLINICAL: Right ureteral stone TECHNIQUE: Single KUB of the abdomen. COMPARISON: 03/23/2023 FINDINGS: A nonspecific nonobstructive bowel gas pattern is present. No pathologic calcifications are seen. The osseous structures are grossly normal. IMPRESSION IMPRESSION: Nonspecific nonobstructive bowel gas pattern. Management Assistant: [facility] Transcribe Date/Time: Sep 20 2023 3:18P Dictated by : ERNA NORIEGA MD This examination was interpreted and the report reviewed and electronically signed by: ERNA NORIEGA MD on Sep 20 2023 3:19PM EST [facility] XR Abdomen Supine and Uprigh tOrdered By: [facility] Provider on 09-20-2023 [facility] CNPNon 09-17-2023 CNPN Telephone ([id number]) -- SAMMY REDD ([id number]) 1980 F Date Time Provider Department 09/17/23 NELIDA IRVING [id number] During your visit today, we recorded the following information about you: Sunitha Clarke OCCA 09/17/2023 10:35 AM Signed I called pt to reschedule her upcoming appointment on 09/22/23 with CHARLY Irving. Pt stated that she is still experiencing some discomfort that she thinks is from the ureteral stones. Pt wanted to keep appointment. She stated that she was going to get her KUB today. Sunitha MAGDIEL Clarke Allergies As of Date: 09/17/2023 Noted Allergy Reaction ALEVE (NAPROXEN SODIUM) 04/28/2007 11 - Vomiting Comments: Ibuprofen without problems Vomiting with Aleve with one time use COMPAZINE (PROCHLORPERAZINE) 03/11/2023 1 - Mental Status Change MENTHOL 08/07/2022 2 - Rash METFORMIN 01/23/2017 8 - GI Upset MORPHINE (PF) 03/11/2023 14 - Other: See Comments Comments: Respiratory depression PENICILLINS 04/28/2007 7 - Swelling ADHESIVE 12/26/2020 2 - Rash Date Reviewed: 08/10/2023 Reviewed by: Dee Flores APRN.PRINTING EQUIPMENT MECHANIC APPRENTICE - Fully Assessed Reason for Visit: Orders [681] Prescriptions as of 09/17/2023 - dextroamphetamine-amphetam ine (ADDERALL) 10 mg tablet Take 1 tablet by mouth once daily for 30 days. - dextroamphetamine-amphetam ine (ADDERALL) 10 mg tablet Take 1 tablet by mouth once daily for 30 days. Do not start before September 01, 2023. - dextroamphetamine-amphetam ine (ADDERALL) 10 mg tablet Take 1 tablet by mouth once daily for 30 days. Do not start before August 04, 2023. - diclofenac (VOLTAREN ARTHRITIS PAIN) 1 % topical gel Apply 2 g to affected area three times a day as needed. - vitamin b complex (B COMPLETE) tab Take 1 tablet by mouth once daily. - levothyroxine (SYNTHROID) 88 mcg tablet Take 1 tablet by mouth daily before breakfast. and skip 1 day weekly. - tiZANidine (ZANAFLEX) 4 mg tablet Take 1 tablet by mouth every 8 hours as needed (muscle spasms). - Magnesium Oxide 250 mg magnesium tab Take 1 tablet by mouth daily at bedtime. - triamcinolone acetonide (KENALOG) 0.5 % cream Apply 1 application to affected area daily at bedtime. On left lower leg skin lesion at ankle. Apply sparingly. Avoid face/skin fold. - carbonyl iron 15 mg chew Take 1 tablet by mouth twice daily with meals. - Cholecalciferol, Vitamin D3, 125 mcg (5,000 unit) cap Take 1 capsule by mouth once daily. - ondansetron orally disintegrating (ZOFRAN ODT) 4 mg disintegrating tablet Take 1 tablet by mouth every 6 hours as needed for Nausea/Vomiting. Problem List As Of Date 09/17/2023 Noted Resolved Renal calculi [N20.0] 05/13/2010 03/10/2017 Hypothyroidism, acquired [E03.9] 05/13/2010 Lumbar disc disease [M51.9] 05/13/2010 Polycystic ovary syndrome [E28.2] 06/19/2010 Rosacea [L71.9] 06/19/2010 Dysmetabolic syndrome [E88.810] 01/15/2011 Acute right flank pain [R10.9] 06/28/2012 [...] 35-39.9 [E66.9] 06/30/2022 Right nephrolithiasis [N20.0] 06/30/2022 Right ureteral stone [N20.1] 02/09/2023 Gross hematuria [R31.0] 02/09/2023 Preop testing [Z01.818] 03/10/2023 Acute cystitis without hematuria [N30.00] 03/24/2023 Encounter Status:Closed by SUNITHA CLARKE on 09/17/23 [facility] XR Abdomen Supine and Uprigh ton 09-17-2023 Radiology Study observation (narrative) [facility] Basophil percentageOrdered B y: Juvencio Oneal on 08-31-2023 Bilirubin [Mass/Vol] 0.30 mg/dL 0.20-1.00 [facility] Comment on above: For patients on eltr ombopag therapy, use of Dimension [place] TBIL is not recommended. Chloride [Moles/Vol] 107 mmol/L 98-107 [facility] Glucose [Mass/Vol] 87 mg/dL 74-106 [facility] Hemoglobin (Bld) [Mass/Vol] 13.9 g/dL 12.0-15.0 [facility] Potassium [Moles/Vol] 3.9 mmol/L 3.5-5.1 [facility] Protein [Mass/Vol] 7.3 g/dL 6.4-8.2 [facility] Sodium [Moles/Vol] 140 mmol/L 136-145 [facility] WBC (Bld) [#/Vol] 12.3 10*3/uL 4.4-11.0 [facility] Determination of erythrocyte mean corpuscular volume (MCV)Ordered By: Juvencio Oneal on 08-31-2023 MCV (RBC) [Entitic vol] 92.9 fL 81-99 [facility] Erythrocyte distribution wid th ratioOrdered By: Juvencio Oneal on 08-31-2023 Erythrocyte distribution width (RBC) [Ratio] 12.7 % 11.6-14.6 [facility] Erythrocyte distribution wid th standard deviationOrdered By: Juvencio Oneal on 08-31-2023 Erythrocyte distribution width (RBC) [Entitic vol] 43.7 fL 35.1-43.9 [facility] Hematocrit Auto (Bld) [Volum e fraction]Ordered By: Juvencio Oneal on 08-31-2023 Hematocrit (Bld) [Volume fraction] 44.3 % 37-47 [facility] Laboratory - Chemistry and C hemistry - challengeOrdered By: Juvencio Oneal on 08-31-2023 Albumin/Globulin [Mass ratio] 0.9 {ratio} 0.9-2.4 [facility] ALP [Catalytic activity/Vol] 72 U/L 45-117 [facility] ALT [Catalytic activity/Vol] 20 U/L 13-56 [facility] CO2 [Moles/Vol] 28.0 mmol/L 21.0-32.0 [facility] Globulin (S) [Mass/Vol] 3.8 g/dL 2.2-4.2 [facility] Magnesium [Mass/Vol] 2.2 mg/dL 1.6-2.6 [facility] Urea nitrogen/Creatinine [Mass ratio] 28.2 mg/mg 10-20 [facility] Laboratory - Hematology and Cell countsOrdered By: Juvencio Oneal on 08-31-2023 MCH (RBC) [Entitic mass] 29.1 pg 27.0-32.0 [facility] MCHC (RBC) [Mass/Vol] 31.4 g/dL 32-36 [facility] Platelet mean volume (Bld) [Entitic vol] 10.3 fL 6.2-12.0 [facility] Platelets (Bld) [#/Vol] 260 10*3/uL 150-450 [facility] No Panel InformationOrdered By: Juvencio Oneal on 08-31-2023 Estimated GFR (MDRD) Amer 115 mL/min >60 [facility] Comment on above: GFR Calc Estimated GFR (MDRD) Non-Af Amer 95 mL/min >60 [facility] Comment on above: Non- GFR Calc RBC Auto (Bld) [#/Vol]Ordere d By: Juvencio Oneal on 08-31-2023 RBC (Bld) [#/Vol] 4.77 10*6/uL 4.2-5.4 [facility] Serum or plasma calcium waldo urement (mass/volume)Ordered By: Juvencio Oneal on 08-31-2023 Calcium [Mass/Vol] 9.1 mg/dL 8.5-10.1 [facility] Serum or plasma creatinine m easurement (mass/volume)Ordered By: Juvencio Oneal on 08-31-2023 Creatinine [Mass/Vol] 0.71 mg/dL 0.55-1.02 [facility] Comment on above: The validity of the calculated GFR & GFRAA in patients over 70 years has not been determined. Clinical correlation is essential. Serum or plasma urea nitroge n measurement (mass/volume)Ordered By: Juvencio Oneal on 08-31-2023 Urea nitrogen [Mass/Vol] 20 mg/dL 7-18 [facility] Thin prep Papanicolaou smear with manual screeningOrdered By: Juvencio Oneal on 08-31-2023 Thin prep Papanicolaou smear with manual screening 3.5 g/dL 3.2-5.0 [facility] Thin prep Papanicolaou smear with manual screening 19 U/L 15-37 [facility] Thin prep Papanicolaou smear with manual screening 5 5-15 [facility] C-REACTIVE PROTEINon 024 CRP [Mass/Vol] 0.3 mg/dL <0.9 mg/dL [facility] CBC W Auto Differential pane l (Bld)on 08-10-2023 Basophils (Bld) [#/Vol] 0.05 10*3/uL <0.11 k/uL [facility] Basophils/100 WBC (Bld) 0.7 % [facility] Differential cell count method Nom (Bld) Auto [facility] Eosinophils (Bld) [#/Vol] 0.30 10*3/uL <0.46 k/uL [facility] Eosinophils/100 WBC (Bld) 4.0 % [facility] Erythrocyte distribution width (RBC) [Ratio] 13.1 % 11.5 - 15.0 % [facility] Hematocrit (Bld) [Volume fraction] 43.5 % 36.0 - 46.0 % [facility] Hemoglobin (Bld) [Mass/Vol] 13.7 g/dL 11.5 - 15.5 g/dL [facility] Immature granulocytes (Bld) [#/Vol] <0.10 k/uL [facility] Immature granulocytes/100 WBC (Bld) 0.1 % [facility] Lymphocytes (Bld) [#/Vol] 2.17 10*3/uL 1.00 - 4.00 k/uL [facility] Lymphocytes/100 WBC (Bld) 28.8 % [facility] MCH (RBC) [Entitic mass] 29.5 pg 26.0 - 34.0 pg [facility] MCHC (RBC) [Mass/Vol] 31.5 g/dL 30.5 - 36.0 g/dL [facility] MCV (RBC) [Entitic vol] 93.5 fL 80.0 - 100.0 fL [facility] Monocytes (Bld) [#/Vol] 0.42 10*3/uL <0.87 k/uL [facility] Monocytes/100 WBC (Bld) 5.6 % [facility] Neutrophils (Bld) [#/Vol] 4.59 10*3/uL 1.45 - 7.50 k/uL [facility] Neutrophils/100 WBC (Bld) 60.8 % [facility] Nucleated RBC (Bld) [#/Vol] <0.01 k/uL [facility] Nucleated RBC/100 WBC (Bld) [Ratio] 0.0 /100 WBC [facility] Platelet mean volume (Bld) [Entitic vol] 10.6 fL 9.0 - 12.7 fL [facility] Platelets (Bld) [#/Vol] 266 10*3/uL 150 - 400 k/uL [facility] RBC (Bld) [#/Vol] 4.65 10*6/uL 3.90 - 5.2 0 m/uL [facility] WBC (Bld) [#/Vol] 7.54 10*3/uL 3.70 - 11. 00 k/uL [facility] CORTISOL, SERUMon 08-10-2023 Cortisol [Mass/Vol] 5.4 ug/dL 4.8 - 19 .5 ug/dL [facility] CREATINE KINASE/CKon 024 CK [Catalytic activity/Vol] 94 U/L 42 - 196 U/L [facility] Comprehensive metabolic 2000 panelon 08-10-2023 Albumin [Mass/Vol] 4.1 g/dL 3.9 - 4.9 g/dL [facility] ALP [Catalytic activity/Vol] 66 U/L 34 - 123 U/L [facility] ALT [Catalytic activity/Vol] 14 U/L 7 - 38 U/L [facility] Anion gap [Moles/Vol] 11 mmol/L 9 - 18 mmol/L [facility] AST [Catalytic activity/Vol] 20 U/L 13 - 35 U/L [facility] Bilirubin [Mass/Vol] 0.5 mg/dL 0.2 - 1 .3 mg/dL [facility] Calcium [Mass/Vol] 9.2 mg/dL 8.5 - 10. 2 mg/dL [facility] Chloride [Moles/Vol] 105 mmol/L 97 - 10 5 mmol/L [facility] CO2 [Moles/Vol] 25 mmol/L 22 - 30 mmol/L [facility] Creatinine [Mass/Vol] 0.64 mg/dL 0.58 - 0.96 mg/dL [facility] Estimated Glomerular Filtration Rate 113 mL/min/1.73m >=60 mL/min/1.73m [facility] Glucose [Mass/Vol] 85 mg/dL 74 - 99 mg/dL [facility] Potassium [Moles/Vol] 4.2 mmol/L 3.7 - 5.1 mmol/L [facility] Protein [Mass/Vol] 6.7 g/dL 6.3 - 8.0 g/dL [facility] Sodium [Moles/Vol] 141 mmol/L 136 - 144 mmol/L [facility] Urea nitrogen [Mass/Vol] 17 mg/dL 7 - 21 mg/dL [facility] PETER BOYD PANELon 024 EBV NA Ab, Qual Negative Negative [facility] EBV VCA IgG, Qual Negative Negative [facility] EBV VCA IgM, Qual Negative Negative [facility] Interpretation (EBVPNL) Never Infected. EBV panel interpretation is a general guide that is meant to capture most, but not all, of the possible clinical scenarios. Non-specific reactivities are not uncommon especially with equivocal results. Should the overall interpretation not be consistent with the clinical picture, please contact the phlebotomist medical lab assistant of the test for assistance. [facility] No Panel Informationon 08-09 IMPRESSION: No significant bone or articular abnormality. Management Assistant: MARLON Transcribe Date/Time: Aug 10 2023 9:44A Dictated by : HAMIDA MARIA DO This examination was interpreted and the report reviewed and electronically signed by: HAMIDA MARIA DO on Aug 10 2023 9:57AM [facility] DIVISION OF RADIOLOGY Radiology Study observation (narrative) [facility] No Panel InformationOrdered By: [facility]cf Provider on 08-10-2023 [facility] RHEUMATOID FACTORon 08-10-19 Rheumatoid factor Qn <16 IU/mL [facility] T3on 08-10-2023 T3 [Mass/Vol] 97 ng/dL 79 - 165 ng/dL [facility] T4 FREE/FREE THYROXINEon Free T4 [Mass/Vol] 1.4 ng/dL 0.9 - 1.7 ng/dL [facility] THYROID STIMULATING HORMONEo n 08-10-2023 TSH Qn 0.910 m[IU]/L 0.270 - 4.200 mIU/L [facility] XR Foot - bilateral AP and L ateral and obliqueon 08-10-2023 * * *Final Report* * * DATE OF EXAM: Aug 10 2023 9:44AM WOX [id number] - XR FOOT 3V AP/LAT/OBL SIXTO / PROCEDURE REASON: multiple diagnoses * * * * Physician Interpretation * * * * EXAMINATION: XR HAND 3V PA/LAT/OBL SIXTO, XR FOOT 3V AP/LAT/OBL SIXTO, XR LUMBAR 3V AP/LAT/L5-S1, XR THORACIC 3V AP/LAT/SWIMMERS PATIENT/TECHNOLOGIST PROVIDED HISTORY: Bilateral hand pain, swelling, and reddness x 1 month. No injury. Bilateral foot pain, reddness, and swelling x 1 month. No injury. Chronic mid to lower back pain that has increased over the last month without injury. Chronic mid to lower back pain that has increased over the last month without injury. CLINICAL INFORMATION: 43 years old Female with Arthralgia, unspecified joint. Myalgia. Finger swelling. TECHNIQUE: XR HAND 3V PA/LAT/OBL SIXTO, XR FOOT 3V AP/LAT/OBL SIXTO, XR LUMBAR 3V AP/LAT/L5-S1, XR THORACIC 3V AP/LAT/SWIMMERS Laterality: See below. Number of different views (projections): 3 views of the thoracic spine, 3 views of the lumbar spine, 3 views of each hand and 3 views of each foot. COMPARISON: Lumbar spine radiographs 05/19/2022, CT flank 02/05/2023 RESULT: Thoracic Spine: Counting reference: 12 paired ribs with vertebral body articulating with first set of ribs designated as T1. Alignment: Alignment is satisfactory. Vertebral bodies: Vertebral body heights are maintained. Spine articulations: Disc spaces are maintained with scattered small endplate osteophytes. Other: Cholecystectomy clips. Lumbar spine: Counting reference: Lumbosacral junction. For the purposes of this report, L4-5 is considered the level of the iliac crest and there are 5 lumbar-type vertebrae. Anatomic Variants: None. For the purposes of this report, the most caudal normal disc space in the lumbar region will be labeled as L5-S1. Post-op assessment: N/A Alignment: Alignment is satisfactory. Vertebral bodies: Vertebral body heights are maintained. Spine articulations: Disc spaces are maintained with scattered small endplate osteophytes. Hands: No erosions or periostitis. Joint spaces are maintained. Bony mineralization is normal. No fracture. Feet: No erosions or periostitis. Alignment and joint spaces are maintained. Bony mineralization is normal. No fracture. Bilateral plantar calcaneal spurs. DIVISION OF RADIOLOGY Provider, [facility] - 08/10/2023 * * *Final Report* * * DATE OF EXAM: Aug 10 2023 9:44AM WOX [id number] - XR FOOT 3V AP/LAT/OBL SIXTO / PROCEDURE REASON: multiple diagnoses * * * * Physician Interpretation * * * * EXAMINATION: XR HAND 3V PA/LAT/OBL SIXTO, XR FOOT 3V AP/LAT/OBL SIXTO, XR LUMBAR 3V AP/LAT/L5-S1, XR THORACIC 3V AP/LAT/SWIMMERS PATIENT/TECHNOLOGIST PROVIDED HISTORY: Bilateral hand pain, swelling, and reddness x 1 month. No injury. Bilateral foot pain, reddness, and swelling x 1 month. No injury. Chronic mid to lower back pain that has increased over the last month without injury. Chronic mid to lower back pain that has increased over the last month without injury. CLINICAL INFORMATION: 43 years old Female with Arthralgia, unspecified joint. Myalgia. Finger swelling. TECHNIQUE: XR HAND 3V PA/LAT/OBL SIXTO, XR FOOT 3V AP/LAT/OBL SIXTO, XR LUMBAR 3V AP/LAT/L5-S1, XR THORACIC 3V AP/LAT/SWIMMERS Laterality: See below. Number of different views (projections): 3 views of the thoracic spine, 3 views of the lumbar spine, 3 views of each hand and 3 views of each foot. COMPARISON: Lumbar spine radiographs 05/19/2022, CT flank 02/05/2023 RESULT: Thoracic Spine: Counting reference: 12 paired ribs with vertebral body articulating with first set of ribs designated as T1. Alignment: Alignment is satisfactory. Vertebral bodies: Vertebral body heights are maintained. Spine articulations: Disc spaces are maintained with scattered small endplate osteophytes. Other: Cholecystectomy clips. Lumbar spine: Counting reference: Lumbosacral junction. For the purposes of this report, L4-5 is considered the level of the iliac crest and there are 5 lumbar-type vertebrae. Anatomic Variants: None. For the purposes of this report, the most caudal normal disc space in the lumbar region will be labeled as L5-S1. Post-op assessment: N/A Alignment: Alignment is satisfactory. Vertebral bodies: Vertebral body heights are maintained. Spine articulations: Disc spaces are maintained with scattered small endplate osteophytes. Hands: No erosions or periostitis. Joint spaces are maintained. Bony mineralization is normal. No fracture. Feet: No erosions or periostitis. Alignment and joint spaces are maintained. Bony mineralization is normal. No fracture. Bilateral plantar calcaneal spurs. IMPRESSION IMPRESSION: No significant bone or articular abnormality. Management Assistant: MARLON Transcribe Date/Time: Aug 10 2023 9:44A Dictated by : HAMIDA MARIA DO This examination was interpreted and the report reviewed and electronically signed by: HAMIDA MARIA DO on Aug 10 2023 9:57AM [facility] XR Hand - bilateral PA and L ateral and Obliqueon 08-10-2023 * * *Final Report* * * DATE OF EXAM: Aug 10 2023 9:44AM WOX [id number] - XR HAND 3V PA/LAT/OBL SIXTO / PROCEDURE REASON: multiple diagnoses * * * * Physician Interpretation * * * * EXAMINATION: XR HAND 3V PA/LAT/OBL SIXTO, XR FOOT 3V AP/LAT/OBL SIXTO, XR LUMBAR 3V AP/LAT/L5-S1, XR THORACIC 3V AP/LAT/SWIMMERS PATIENT/TECHNOLOGIST PROVIDED HISTORY: Bilateral hand pain, swelling, and reddness x 1 month. No injury. Bilateral foot pain, reddness, and swelling x 1 month. No injury. Chronic mid to lower back pain that has increased over the last month without injury. Chronic mid to lower back pain that has increased over the last month without injury. CLINICAL INFORMATION: 43 years old Female with Arthralgia, unspecified joint. Myalgia. Finger swelling. TECHNIQUE: XR HAND 3V PA/LAT/OBL SIXTO, XR FOOT 3V AP/LAT/OBL SIXTO, XR LUMBAR 3V AP/LAT/L5-S1, XR THORACIC 3V AP/LAT/SWIMMERS Laterality: See below. Number of different views (projections): 3 views of the thoracic spine, 3 views of the lumbar spine, 3 views of each hand and 3 views of each foot. COMPARISON: Lumbar spine radiographs 05/19/2022, CT flank 02/05/2023 RESULT: Thoracic Spine: Counting reference: 12 paired ribs with vertebral body articulating with first set of ribs designated as T1. Alignment: Alignment is satisfactory. Vertebral bodies: Vertebral body heights are maintained. Spine articulations: Disc spaces are maintained with scattered small endplate osteophytes. Other: Cholecystectomy clips. Lumbar spine: Counting reference: Lumbosacral junction. For the purposes of this report, L4-5 is considered the level of the iliac crest and there are 5 lumbar-type vertebrae. Anatomic Variants: None. For the purposes of this report, the most caudal normal disc space in the lumbar region will be labeled as L5-S1. Post-op assessment: N/A Alignment: Alignment is satisfactory. Vertebral bodies: Vertebral body heights are maintained. Spine articulations: Disc spaces are maintained with scattered small endplate osteophytes. Hands: No erosions or periostitis. Joint spaces are maintained. Bony mineralization is normal. No fracture. Feet: No erosions or periostitis. Alignment and joint spaces are maintained. Bony mineralization is normal. No fracture. Bilateral plantar calcaneal spurs. DIVISION [facility]OLOGY [facility] * * *Final Report* * * DATE OF EXAM: Aug 10 2023 9:44AM WOX [id number] - XR HAND 3V PA/LAT/OBL SIXTO / PROCEDURE REASON: multiple diagnoses * * * * Physician Interpretation * * * * EXAMINATION: XR HAND 3V PA/LAT/OBL SIXTO, XR FOOT 3V AP/LAT/OBL SIXTO, XR LUMBAR 3V AP/LAT/L5-S1, XR THORACIC 3V AP/LAT/SWIMMERS PATIENT/TECHNOLOGIST PROVIDED HISTORY: Bilateral hand pain, swelling, and reddness x 1 month. No injury. Bilateral foot pain, reddness, and swelling x 1 month. No injury. Chronic mid to lower back pain that has increased over the last month without injury. Chronic mid to lower back pain that has increased over the last month without injury. CLINICAL INFORMATION: 43 years old Female with Arthralgia, unspecified joint. Myalgia. Finger swelling. TECHNIQUE: XR HAND 3V PA/LAT/OBL SIXTO, XR FOOT 3V AP/LAT/OBL SIXTO, XR LUMBAR 3V AP/LAT/L5-S1, XR THORACIC 3V AP/LAT/SWIMMERS Laterality: See below. Number of different views (projections): 3 views of the thoracic spine, 3 views of the lumbar spine, 3 views of each hand and 3 views of each foot. COMPARISON: Lumbar spine radiographs 05/19/2022, CT flank 02/05/2023 RESULT: Thoracic Spine: Counting reference: 12 paired ribs with vertebral body articulating with first set of ribs designated as T1. Alignment: Alignment is satisfactory. Vertebral bodies: Vertebral body heights are maintained. Spine articulations: Disc spaces are maintained with scattered small endplate osteophytes. Other: Cholecystectomy clips. Lumbar spine: Counting reference: Lumbosacral junction. For the purposes of this report, L4-5 is considered the level of the iliac crest and there are 5 lumbar-type vertebrae. Anatomic Variants: None. For the purposes of this report, the most caudal normal disc space in the lumbar region will be labeled as L5-S1. Post-op assessment: N/A Alignment: Alignment is satisfactory. Vertebral bodies: Vertebral body heights are maintained. Spine articulations: Disc spaces are maintained with scattered small endplate osteophytes. Hands: No erosions or periostitis. Joint spaces are maintained. Bony mineralization is normal. No fracture. Feet: No erosions or periostitis. Alignment and joint spaces are maintained. Bony mineralization is normal. No fracture. Bilateral plantar calcaneal spurs. IMPRESSION IMPRESSION: No significant bone or articular abnormality. Management Assistant: PSCB Transcribe Date/Time: Aug 10 2023 9:44A Dictated by : HAMIDA MARIA DO This examination was interpreted and the report reviewed and electronically signed by: HAMIDA MARIA DO on Aug 10 2023 9:57AM [facility] XR Lumbar spine 3 Viewson * * *Final Report* * * DATE OF EXAM: Aug 10 2023 9:44AM WOX [id number] - XR LUMBAR 3V AP/LAT/L5-S1 / PROCEDURE REASON: multiple diagnoses * * * * Physician Interpretation * * * * EXAMINATION: XR HAND 3V PA/LAT/OBL SIXTO, XR FOOT 3V AP/LAT/OBL SIXTO, XR LUMBAR 3V AP/LAT/L5-S1, XR THORACIC 3V AP/LAT/SWIMMERS PATIENT/TECHNOLOGIST PROVIDED HISTORY: Bilateral hand pain, swelling, and reddness x 1 month. No injury. Bilateral foot pain, reddness, and swelling x 1 month. No injury. Chronic mid to lower back pain that has increased over the last month without injury. Chronic mid to lower back pain that has increased over the last month without injury. CLINICAL INFORMATION: 43 years old Female with Arthralgia, unspecified joint. Myalgia. Finger swelling. TECHNIQUE: XR HAND 3V PA/LAT/OBL SIXTO, XR FOOT 3V AP/LAT/OBL SIXTO, XR LUMBAR 3V AP/LAT/L5-S1, XR THORACIC 3V AP/LAT/SWIMMERS Laterality: See below. Number of different views (projections): 3 views of the thoracic spine, 3 views of the lumbar spine, 3 views of each hand and 3 views of each foot. COMPARISON: Lumbar spine radiographs 05/19/2022, CT flank 02/05/2023 RESULT: Thoracic Spine: Counting reference: 12 paired ribs with vertebral body articulating with first set of ribs designated as T1. Alignment: Alignment is satisfactory. Vertebral bodies: Vertebral body heights are maintained. Spine articulations: Disc spaces are maintained with scattered small endplate osteophytes. Other: Cholecystectomy clips. Lumbar spine: Counting reference: Lumbosacral junction. For the purposes of this report, L4-5 is considered the level of the iliac crest and there are 5 lumbar-type vertebrae. Anatomic Variants: None. For the purposes of this report, the most caudal normal disc space in the lumbar region will be labeled as L5-S1. Post-op assessment: N/A Alignment: Alignment is satisfactory. Vertebral bodies: Vertebral body heights are maintained. Spine articulations: Disc spaces are maintained with scattered small endplate osteophytes. Hands: No erosions or periostitis. Joint spaces are maintained. Bony mineralization is normal. No fracture. Feet: No erosions or periostitis. Alignment and joint spaces are maintained. Bony mineralization is normal. No fracture. Bilateral plantar calcaneal spurs. DIVISION OF RADIOLOGY Provider, [facility] - 08/10/2023 * * *Final Report* * * DATE OF EXAM: Aug 10 2023 9:44AM WOX [id number] - XR LUMBAR 3V AP/LAT/L5-S1 / PROCEDURE REASON: multiple diagnoses * * * * Physician Interpretation * * * * EXAMINATION: XR HAND 3V PA/LAT/OBL SIXTO, XR FOOT 3V AP/LAT/OBL SIXTO, XR LUMBAR 3V AP/LAT/L5-S1, XR THORACIC 3V AP/LAT/SWIMMERS PATIENT/TECHNOLOGIST PROVIDED HISTORY: Bilateral hand pain, swelling, and reddness x 1 month. No injury. Bilateral foot pain, reddness, and swelling x 1 month. No injury. Chronic mid to lower back pain that has increased over the last month without injury. Chronic mid to lower back pain that has increased over the last month without injury. CLINICAL INFORMATION: 43 years old Female with Arthralgia, unspecified joint. Myalgia. Finger swelling. TECHNIQUE: XR HAND 3V PA/LAT/OBL SIXTO, XR FOOT 3V AP/LAT/OBL SIXTO, XR LUMBAR 3V AP/LAT/L5-S1, XR THORACIC 3V AP/LAT/SWIMMERS Laterality: See below. Number of different views (projections): 3 views of the thoracic spine, 3 views of the lumbar spine, 3 views of each hand and 3 views of each foot. COMPARISON: Lumbar spine radiographs 05/19/2022, CT flank 02/05/2023 RESULT: Thoracic Spine: Counting reference: 12 paired ribs with vertebral body articulating with first set of ribs designated as T1. Alignment: Alignment is satisfactory. Vertebral bodies: Vertebral body heights are maintained. Spine articulations: Disc spaces are maintained with scattered small endplate osteophytes. Other: Cholecystectomy clips. Lumbar spine: Counting reference: Lumbosacral junction. For the purposes of this report, L4-5 is considered the level of the iliac crest and there are 5 lumbar-type vertebrae. Anatomic Variants: None. For the purposes of this report, the most caudal normal disc space in the lumbar region will be labeled as L5-S1. Post-op assessment: N/A Alignment: Alignment is satisfactory. Vertebral bodies: Vertebral body heights are maintained. Spine articulations: Disc spaces are maintained with scattered small endplate osteophytes. Hands: No erosions or periostitis. Joint spaces are maintained. Bony mineralization is normal. No fracture. Feet: No erosions or periostitis. Alignment and joint spaces are maintained. Bony mineralization is normal. No fracture. Bilateral plantar calcaneal spurs. IMPRESSION IMPRESSION: No significant bone or articular abnormality. Management Assistant: MARLON Transcribe Date/Time: Aug 10 2023 9:44A Dictated by : HAMIDA MARIA DO This examination was interpreted and the report reviewed and electronically signed by: HAMIDA MARIA DO on Aug 10 2023 9:57AM [facility] XR Thoracic spine AP and Lat eral and Swimmerson 08-10-2023 * * *Final Report* * * DATE OF EXAM: Aug 10 2023 9:44AM WOX [id number] - XR THORACIC 3V AP/LAT/SWIMMERS / PROCEDURE REASON: multiple diagnoses * * * * Physician Interpretation * * * * EXAMINATION: XR HAND 3V PA/LAT/OBL SIXTO, XR FOOT 3V AP/LAT/OBL SIXTO, XR LUMBAR 3V AP/LAT/L5-S1, XR THORACIC 3V AP/LAT/SWIMMERS PATIENT/TECHNOLOGIST PROVIDED HISTORY: Bilateral hand pain, swelling, and reddness x 1 month. No injury. Bilateral foot pain, reddness, and swelling x 1 month. No injury. Chronic mid to lower back pain that has increased over the last month without injury. Chronic mid to lower back pain that has increased over the last month without injury. CLINICAL INFORMATION: 43 years old Female with Arthralgia, unspecified joint. Myalgia. Finger swelling. TECHNIQUE: XR HAND 3V PA/LAT/OBL SIXTO, XR FOOT 3V AP/LAT/OBL SIXTO, XR LUMBAR 3V AP/LAT/L5-S1, XR THORACIC 3V AP/LAT/SWIMMERS Laterality: See below. Number of different views (projections): 3 views of the thoracic spine, 3 views of the lumbar spine, 3 views of each hand and 3 views of each foot. COMPARISON: Lumbar spine radiographs 05/19/2022, CT flank 02/05/2023 RESULT: Thoracic Spine: Counting reference: 12 paired ribs with vertebral body articulating with first set of ribs designated as T1. Alignment: Alignment is satisfactory. Vertebral bodies: Vertebral body heights are maintained. Spine articulations: Disc spaces are maintained with scattered small endplate osteophytes. Other: Cholecystectomy clips. Lumbar spine: Counting reference: Lumbosacral junction. For the purposes of this report, L4-5 is considered the level of the iliac crest and there are 5 lumbar-type vertebrae. Anatomic Variants: None. For the purposes of this report, the most caudal normal disc space in the lumbar region will be labeled as L5-S1. Post-op assessment: N/A Alignment: Alignment is satisfactory. Vertebral bodies: Vertebral body heights are maintained. Spine articulations: Disc spaces are maintained with scattered small endplate osteophytes. Hands: No erosions or periostitis. Joint spaces are maintained. Bony mineralization is normal. No fracture. Feet: No erosions or periostitis. Alignment and joint spaces are maintained. Bony mineralization is normal. No fracture. Bilateral plantar calcaneal spurs. DIVISION OF RADIOLOGY Provider, [facility] - 08/10/2023 * * *Final Report* * * DATE OF EXAM: Aug 10 2023 9:44AM WOX 5261 - XR THORACIC 3V AP/LAT/SWIMMERS / PROCEDURE REASON: multiple diagnoses * * * * Physician Interpretation * * * * EXAMINATION: XR HAND 3V PA/LAT/OBL SXITO, XR FOOT 3V AP/LAT/OBL SIXTO, XR LUMBAR 3V AP/LAT/L5-S1, XR THORACIC 3V AP/LAT/SWIMMERS PATIENT/TECHNOLOGIST PROVIDED HISTORY: Bilateral hand pain, swelling, and reddness x 1 month. No injury. Bilateral foot pain, reddness, and swelling x 1 month. No injury. Chronic mid to lower back pain that has increased over the last month without injury. Chronic mid to lower back pain that has increased over the last month without injury. CLINICAL INFORMATION: 43 years old Female with Arthralgia, unspecified joint. Myalgia. Finger swelling. TECHNIQUE: XR HAND 3V PA/LAT/OBL SIXTO, XR FOOT 3V AP/LAT/OBL SIXTO, XR LUMBAR 3V AP/LAT/L5-S1, XR THORACIC 3V AP/LAT/SWIMMERS Laterality: See below. Number of different views (projections): 3 views of the thoracic spine, 3 views of the lumbar spine, 3 views of each hand and 3 views of each foot. COMPARISON: Lumbar spine radiographs 05/19/2022, CT flank 02/05/2023 RESULT: Thoracic Spine: Counting reference: 12 paired ribs with vertebral body articulating with first set of ribs designated as T1. Alignment: Alignment is satisfactory. Vertebral bodies: Vertebral body heights are maintained. Spine articulations: Disc spaces are maintained with scattered small endplate osteophytes. Other: Cholecystectomy clips. Lumbar spine: Counting reference: Lumbosacral junction. For the purposes of this report, L4-5 is considered the level of the iliac crest and there are 5 lumbar-type vertebrae. Anatomic Variants: None. For the purposes of this report, the most caudal normal disc space in the lumbar region will be labeled as L5-S1. Post-op assessment: N/A Alignment: Alignment is satisfactory. Vertebral bodies: Vertebral body heights are maintained. Spine articulations: Disc spaces are maintained with scattered small endplate osteophytes. Hands: No erosions or periostitis. Joint spaces are maintained. Bony mineralization is normal. No fracture. Feet: No erosions or periostitis. Alignment and joint spaces are maintained. Bony mineralization is normal. No fracture. Bilateral plantar calcaneal spurs. IMPRESSION IMPRESSION: No significant bone or articular abnormality. Management Assistant: PSCB Transcribe Date/Time: Aug 10 2023 9:44A Dictated by : HAMIDA MARIA DO This examination was interpreted and the report reviewed and electronically signed by: HAMIDA MARIA DO on Aug 10 2023 9:57AM [facility] Gram stain for investigation of transfusion reactionOrdered By: She Vivar on 01-30-2024 Microscopic observation Gram stain Nom (Unsp spec) [facility] Microscopic observation Gram stain Nom (Unsp spec) [facility] No Panel InformationOrdered By: She Vivar on 05-26-2023 Genital Culture [facility] Genital Culture [facility] No Panel Informationon 05-26 POC Bacterial Vaginitis (Rapid) Negative [facility] CNPNon 03-30-2023 CNPN Telephone (URCANT) -- SAMMY REDD ([id number]) 1980 F Date Time Provider Department 03/30/23 NELIDA IRVING During your visit today, we recorded the following information about you: Allergies As of Date: 03/30/2023 Noted Allergy Reaction ALEVE (NAPROXEN SODIUM) 04/28/2007 11 - Vomiting Comments: Ibuprofen without problems Vomiting with Aleve with one time use COMPAZINE (PROCHLORPERAZINE) 03/11/2023 1 - Mental Status Change MENTHOL 08/07/2022 2 - Rash METFORMIN 01/23/2017 8 - GI Upset MORPHINE (PF) 03/11/2023 14 - Other: See Comments Comments: Respiratory depression PENICILLINS 04/28/2007 7 - Swelling ADHESIVE 12/26/2020 2 - Rash Date Reviewed: 03/24/2023 Reviewed by: Hyun Tejeda OCCA - Fully Assessed Prescriptions as of 03/30/2023 - tamsulosin (FLOMAX) 0.4 mg Take 1 capsule by mouth daily at bedtime for 7 days. - dextroamphetamine-amphetam ine (ADDERALL) 10 mg tablet Take 1 tablet by mouth once daily for 30 days. - LORazepam (ATIVAN) 0.5 mg Take 1 tablet by mouth once daily as needed for up to 30 days. - tamsulosin (FLOMAX) 0.4 mg Take 1 capsule by mouth daily at bedtime. For kidney stones - vitamin b complex (B COMPLETE) tab Take 1 tablet by mouth once daily. - tiZANidine (ZANAFLEX) 4 mg tablet Take 1 tablet by mouth every 8 hours as needed (muscle spasms). - Magnesium Oxide 250 mg magnesium tab Take 1 tablet by mouth daily at bedtime. - triamcinolone acetonide (KENALOG) 0.5 % cream Apply 1 application to affected area daily at bedtime. On left lower leg skin lesion at ankle. Apply sparingly. Avoid face/skin fold. - levothyroxine (SYNTHROID) 88 mcg tablet Take 1 tablet by mouth once daily. and skip 1 day weekly. - carbonyl iron 15 mg chew Take 1 tablet by mouth twice daily with meals. - Cholecalciferol, Vitamin D3, 125 mcg (5,000 unit) cap Take 1 capsule by mouth once daily. - ondansetron orally disintegrating (ZOFRAN ODT) 4 mg disintegrating tablet Take 1 tablet by mouth every 6 hours as needed for Nausea/Vomiting. Problem List As Of Date 03/30/2023 Noted Resolved Renal calculi [N20.0] 05/13/2010 03/10/2017 Hypothyroidism, acquired [E03.9] 05/13/2010 Lumbar disc disease [M51.9] 05/13/2010 Polycystic ovary syndrome [E28.2] 06/19/2010 Rosacea [L71.9] 06/19/2010 Dysmetabolic syndrome [E88.810] 01/15/2011 Acute right flank pain [R10.9] 06/28/2012 [...] 35-39.9 [E66.9] 06/30/2022 Right nephrolithiasis [N20.0] 06/30/2022 Right ureteral stone [N20.1] 02/09/2023 Gross hematuria [R31.0] 02/09/2023 Preop testing [Z01.818] 03/10/2023 Acute cystitis without hematuria [N30.00] 03/24/2023 Encounter Status:Closed by NELIDA IRVING on 03/30/23 [facility] Eliseo 03-26-2023 CNPN Telephone (URCANT) -- SAMMY REDD ([id number]) 1980 F Date Time Provider Department 03/26/23 MARIA FERNANDA NELIDA URCANJorge During your visit today, we recorded the following information about you: Preeti Oh 03/26/2023 3:25 PM Signed Patient called in and was asking about culture results. She was wanting to know if there was anything else she needs to do Vicky Crowley, NETWORKING SPECIALIST.PRINTING EQUIPMENT MECHANIC APPRENTICE 03/26/2023 3:31 PM Signed Urine cx demonstrated 10-50 k mixed . No antibiotics at this time. Arin Da Silva MA 03/27/2023 11:19 AM Signed Left message to call back Susanna Da Silva OCCA 03/27/2023 1:38 PM Signed Tried to return pt's call. No answer. Had to leave a message to call the office back. Lilli Talley MA 03/27/2023 3:07 PM Signed Pt called back, and message was given. Lilli Talley MA Allergies As of Date: 03/26/2023 Noted Allergy Reaction ALEVE (NAPROXEN SODIUM) 04/28/2007 11 - Vomiting Comments: Ibuprofen without problems Vomiting with Aleve with one time use COMPAZINE (PROCHLORPERAZINE) 03/11/2023 1 - Mental Status Change MENTHOL 08/07/2022 2 - Rash METFORMIN 01/23/2017 8 - GI Upset MORPHINE (PF) 03/11/2023 14 - Other: See Comments Comments: Respiratory depression PENICILLINS 04/28/2007 7 - Swelling ADHESIVE 12/26/2020 2 - Rash Date Reviewed: 03/24/2023 Reviewed by: Hyun Tejeda OCCA - Fully Assessed Reason for Visit: urine culture results [Other] Results [95] Prescriptions as of 03/27/2023 - tamsulosin (FLOMAX) 0.4 mg Take 1 capsule by mouth daily at bedtime for 7 days. - dextroamphetamine-amphetam ine (ADDERALL) 10 mg tablet Take 1 tablet by mouth once daily for 30 days. - LORazepam (ATIVAN) 0.5 mg Take 1 tablet by mouth once daily as needed for up to 30 days. - tamsulosin (FLOMAX) 0.4 mg Take 1 capsule by mouth daily at bedtime. For kidney stones - vitamin b complex (B COMPLETE) tab Take 1 tablet by mouth once daily. - tiZANidine (ZANAFLEX) 4 mg tablet Take 1 tablet by mouth every 8 hours as needed (muscle spasms). - Magnesium Oxide 250 mg magnesium tab Take 1 tablet by mouth daily at bedtime. - triamcinolone acetonide (KENALOG) 0.5 % cream Apply 1 application to affected area daily at bedtime. On left lower leg skin lesion at ankle. Apply sparingly. Avoid face/skin fold. - levothyroxine (SYNTHROID) 88 mcg tablet Take 1 tablet by mouth once daily. and skip 1 day weekly. - carbonyl iron 15 mg chew Take 1 tablet by mouth twice daily with meals. - Cholecalciferol, Vitamin D3, 125 mcg (5,000 unit) cap Take 1 capsule by mouth once daily. - ondansetron orally disintegrating (ZOFRAN ODT) 4 mg disintegrating tablet Take 1 tablet by mouth every 6 hours as needed for Nausea/Vomiting. Problem List As Of Date 03/26/2023 Noted Resolved Renal calculi [N20.0] 05/13/2010 03/10/2017 Hypothyroidism, acquired [E03.9] 05/13/2010 Lumbar disc disease [M51.9] 05/13/2010 Polycystic ovary syndrome [E28.2] 06/19/2010 Rosacea [L71.9] 06/19/2010 Dysmetabolic syndrome [E88.810] 01/15/2011 Acute right flank pain [R10.9] 06/28/2012 [...] 35-39.9 [E66.9] 06/30/2022 Right nephrolithiasis [N20.0] 06/30/2022 Right ureteral stone [N20.1] 02/09/2023 Gross hematuria [R31.0] 02/09/2023 Preop testing [Z01.818] 03/10/2023 Acute cystitis without hematuria [N30.00] (more content not included)... [facility] Bacteria Ur Culton 3 Bacteria identified Cx Nom (U) ORGANISM ID: 1 10,000 -<50,000 CFU/ml Mixed microbiota No further workup. Mixed microbiota can be due to???urine???contamination with skin bacteria at time of collection or presence of a long-term urinary catheter. If a new culture is needed, please consider re-education of the patient on proper midstream collection technique or straight catheterization for???urine???collection. [facility] Comment on above: Performed By: #### 6 30-4 ####[facility] LABORATORYCLIA [id number] [address] [place] [facility] CNOVon 03-24-2023 CNOV Office Visit (URCANT ) -- SAMMY REDD ([id number]) 1980 F Date Time Provider Department 03/24/23 8:00 AM NELIDA IRVING During your visit today, we recorded the following information about you: Blood pressure Weight Height 121/83 88 kg 1.524 m Nelida Irving APRN.PRINTING EQUIPMENT MECHANIC APPRENTICE 03/24/2023 8:29 AM Signed [facility] ESTABLISHED PATIENT OFFICE VISIT Patient presents with: Kidney Stones HISTORY OF PRESENT ILLNESS Sammy Redd is a 43 year old female [...] 0.96 mg/dL Final No results found for: PSA, [facility] GLUCOSE UA (POCT) (mg/dL) Date Value [...] units) Date Value 03/24/2023 Clear ] MEDICATIONS dextroamphetamine-amphetam ine (ADDERALL) 10 mg tablet Take 1 tablet [...] disorder (just had APPT drawn - in [facility]) PUD (peptic ulcer disease) 2010 treated medically, [...] SURGICAL HISTORY OF wisdom teeth PYELOTOMY W/REMOVAL CALCUL (more content not included)... [facility] UA DIP, URINE (POC)on 2022 BILIRUBIN UA (POCT) Negative Negative [facility] CLARITY UA (POCT) Clear [facility] COLOR UA (POCT) Yellow [facility] GLUCOSE UA (POCT) Negative Negative mg/dL [facility] Hemoglobin Ql (U) Negative [facility] KETONE UA (POCT) Negative Negative mg/dL [facility] LEUKOCYTES UA (POCT) Negative Negative [facility] NITRITE UA (POCT) Negative Negative [facility] PH UA (POCT) 6.0 4.5 - 8.0 [facility] Protein Ql (U) Negative Negative mg/dL [facility] SPECIFIC GRAVITY UA (POCT) 1.020 1.005 - 1.030 [facility] UROBILINOGEN UA (POCT) 0.2 E.U./dL Georgina l E.U./dL [facility] ANES POSTPROC EVALon 023 ANES POSTPROC EVAL HNO ID: [id number] Author: Carl Mckeon DO Service: ? Author Type: Anesthesiologist Type: Anesthesia Postprocedure Evaluation Filed: 03/11/2023 1:15 PM Note Text: POST ANESTHESIA EVALUATION NOTE : 1980 Procedure Summary Date: 03/11/23 Room / Location: OR [address] [place] [address] OR Anesthesia Start: 1023 Anesthesia Stop: 1123 Procedure: EXTRACORPOREAL SHOCKWAVE LITHOTRIPSY UNILATERAL (Right: Ureter) Diagnosis: Kidney stone (Kidney stone [N20.0]) Surgeons: Xi Barahona MD Responsible Provider: Carl Mckeon DO Anesthesia Type: general ASA Status: 3 Anesthesia Type: general Airway Type: LMA Last Vitals Vitals Value Taken Time BP 118/60 03/11/23 1241 Temp 36.7 ?C (98 ?F) 03/11/23 1241 HR SpO2 74 03/11/23 1237 Resp 18 03/11/23 1241 SpO2 100 % 03/11/23 1241 Vitals shown include unvalidated device data. Post Anesthesia Patient Status Patient Evaluation: PACU. PACU/ICU Patient Condition: stable. Anticipated Disposition: phase 2 then home. Neurological Status: aware and responsive. Pulmonary Status: breathing comfortably on room air Airway Control: returned to baseline unsupported. Cardiovascular Status: stable. Pain Management: clinically adequate - multimodal analgesia pain management approach Postoperative Hydration: acceptable. Intraoperative Events: no significant anesthesia events Post Operative Nausea/Vomiting Status: no significant post operative nausea or vomiting Recommendation: continue current plan of care. Anesthesia Observations No Documentation SIGNATURE: Carl Mckeon DO PATIENT NAME: Sammy Redd DATE: March 11, 2023 TIME: 1:15 PM CSN: [id number] [facility] ANES PRE-OPon 03-11-2023 ANES PRE-OP HNO ID: [id number] Author: Carl Mckeon DO Service: ? Author Type: Anesthesiologist Type: Anesthesia Preprocedure Evaluation Filed: 03/11/2023 9:57 AM Note Text: ANESTHESIOLOGY DAY OF SURGERY NOTE : 1980 Procedure Information Date/Time: 03/11/23 1020 Procedure: EXTRACORPOREAL SHOCKWAVE LITHOTRIPSY UNILATERAL (Right: Ureter) Location: MR OR 12 / MR OR Surgeons: Xi Barahona MD Estimated body mass index is 37.11 kg/m? as calculated from the following: Height as of this encounter: 152.4 cm (5'). Weight as of this encounter: 86.2 kg (190 lb 0.6 oz). Most recent hematocrit and potassium results: Hematocrit 45.2 01/20/2022 Potassium 3.9 05/19/2022 Relevant Problems ANESTHESIA (+) CADENCE (obstructive sleep apnea) CARDIO (+) Atypical migraine (+) Cerebral aneurysm ENDO (+) Hypothyroidism, acquired GI (+) PUD (peptic ulcer disease) -RENAL (+) Right nephrolithiasis NEURO-PSYCH (+) Atypical migraine (+) History of renal stone PULMONARY (+) CADENCE (obstructive sleep apnea) I - PHYSICAL EVALUATION AIRWAY Patient intubated: No. Tracheostomy tube not present Mallampati: II. TM distance: >3 FB. Neck ROM: full ROM without neurological symptoms. Mouth opening: adequate. Short neck: no. Thick neck: yes DENTAL Dental findings: teeth intact. Additional exam findings: yes. CARDIOVASCULAR Normal cardiovascular observations. PULMONARY Normal pulmonary observations. II - ANESTHESIA PLAN ASA Score: 3 Anesthetic Plan: general Airway type: LMA The patient is not a current smoker. NPO Status: adequate Beta Ilya Monitoring Plan Monitoring plan: standard ASA. Post Procedure Analgesic Plan Postoperative analgesic plan: multimodal analgesia and parenteral or oral opioids. Informed Consent Anesthetic risks, benefits, alternatives, personnel and consent discussed: yes. Patient / Responsible Green Party agrees to proceed: yes Patient / Surrogate agrees to blood products: blood products not planned Vitals Value Taken Time BP 139/84 03/11/23913 Pulse 78 03/11/23913 Resp 18 03/11/23913 Temp 36.4 ?C (97.5 ?F) 03/11/23913 SpO2 100 % 03/11/23913 Facility-Administered Medications as of 03/11/2023 Medication Dose Route Frequency - lidocaine (PF) 10 mg/mL (1 %) 2 mg injection (XYLOCAINE) 0.2 mL INTRADERMAL PRN - lactated ringers iv infusion 30 mL/hr INTRAVENOUS CONTINUOUS - NaCl 0.9% iv flush bag 20 mL INTRAVENOUS PRN Outpatient Medications as of 03/11/2023 Medication Sig - [] oxyCODONE-acetaminophen (PERCOCET) 5-325 mg tablet Take 1 tablet by mouth every 8 hours as needed for pain for up to 7 days. - vitamin b complex (B COMPLETE) tab Take 1 tablet by mouth once daily. - tiZANidine (ZANAFLEX) 4 mg tablet Take 1 tablet by mouth every 8 hours as needed (muscle spasms). - Magnesium Oxide 250 mg magnesium tab Take 1 tablet by mouth daily at bedtime. - levothyroxine (SYNTHROID) 88 mcg tablet Take 1 tablet by mouth once daily. and skip 1 day weekly. (Patient taking differently: Take 88 mcg by mouth daily before breakfast. and skip 1 day weekly.) - Cholecalciferol, Vitamin D3, 125 mcg (5,000 unit) cap Take 1 capsule by mouth once daily. (Patient taking differently: Take 5,000 Units by mouth every morning.) - ondansetron orally disintegrating (ZOFRAN ODT) 4 mg disintegrating tablet Take 1 tablet by mouth every 6 hours as needed for Nausea/Vomiting. - [] Phentermine HCl (ADIPEX-P) 37.5 mg tablet Take 1 tablet by mouth once daily for 30 days. BMI 36.91 - triamcinolone acetonide (KENALOG) 0.5 % cream Apply 1 application to affected area daily at bedtime. On left lower leg skin lesion at ankle. Apply sparingly. Avoid face/skin fold. - carbonyl iron 15 mg chew Take 1 tablet by mouth twice daily with meals. I have interviewed and examined the patient. I have reviewed the medical record and/or the pre-anesthesia evaluation, pertinent labs, and test results. This contains updated information obtained within 48 hours of Surgery/Procedure. SIGNATURE: Carl Mckeon DO PATIENT NAME: Sammy Redd DATE: March 11, 2023 TIME: 9:46 AM CSN: [id number] [facility] HISTORY PHYSICALon HISTORY PHYSICAL HNO ID: [id number] Author: Xi Barahona MD Service: Urology Author Type: Physician Type: HANDP Filed: 03/11/2023 9:50 AM Note Text: UPDATED HISTORY AND PHYSICAL EXAMINATION SERVICE DATE: 03/11/2023 SERVICE TIME: 9:50 AM PHYSICAL EXAM MUST BE COMPLETED ON ADMISSION The History and Physical (completed in the past 30 days) has been reviewed and the patient has been examined. The contents accurately reflect the patient's condition with the following additions or revisions since the HANDP was completed. Examination indicates no changes. This HANDP can be found in the Electronic Medical Record. SIGNATURE: Xi Barahona MD PATIENT NAME: Sammy Redd DATE: March 11, 2023 TIME: 9:50 AM [facility] OPERATIVE NOon 03-11-2023 OPERATIVE NO HNO ID: [id number] Author: Xi Barahona MD Service: Urology Author Type: Physician Type: Operative Report Filed: 03/11/2023 11:28 AM Note Text: OPERATIVE/PROCEDURE REPORT LOG ID: [id number] SURGERY/PROCEDURE DATE: 03/11/2023 INCISION/PROCEDURE START TIME: 10:32 AM INCISION CLOSE/PROCEDURE END TIME: 11:13 AM SURGEON(S)/PROCEDURALIST(S ) AND ADJUNCT PROFESSOR OF [place] HISTORY(S): Surgeon(s) and Role: * Xi Barahona MD - Primary No Additional Staff SURGERY/PROCEDURE(S): RIGHT Extracorporeal shockwave lithotripsy ANESTHESIA: General SURGERY/PROCEDURE DETAILS: The patient was administered IV antibiotics and taken to the operating room where bilateral SCDs were placed and a general anesthetic was administered. The patient was positioned supine such that the stone in the RIGHT proximal ureter was an F2 of the lithotripter using biplanar fluoroscopy. The patient received 3000 shocks with good fluoroscopic resolution. PRE-OP/PRE-PROCEDURE DIAGNOSIS: RIGHT ureteral stone POST-OP/POST-PROCEDURE DIAGNOSIS: Same as Preop ESTIMATED BLOOD LOSS: 0 ml SPECIMENS: None IMPLANTABLE DEVICES: None DRAINS: None COMPLICATIONS: None PARTICIPATION IN SURGERY/PROCEDURE: I/primary surgeon/proceduralist performed the procedure with assistance. SIGNATURE: Xi Barahona MD PATIENT NAME: Sammy Redd DATE: March 11, 2023 TIME: 11:27 AM [facility] XR ABDOMEN 1V SUPINEon 03-11 XR ABDOMEN 1V SUPINE * * *Final Report* * * DATE OF EXAM: Mar 11 2023 8:55AM [id number] [id number] - XR ABDOMEN 1V SUPINE / PROCEDURE REASON: Pre/Post operative evaluation * * * * Physician Interpretation * * * * SUPINE ABDOMEN, 2 IMAGES: Clinical Statement: Pre-/postoperative evaluation. Right-sided kidney stones. Comparison: Supine abdomen 02/16/2023, CT abdomen pelvis without contrast 02/24/2023. Renal ultrasound 02/16/2023. FINDINGS: There is a 6 mm calculus projecting over the right L3 transverse process. No other calcifications identified within the abdomen and pelvis. Unremarkable bowel gas pattern. No organomegaly. Peritoneal fascial planes are maintained. Right upper quadrant surgical clips from prior cholecystectomy are noted. The included lung bases are clear. IMPRESSION: 6 mm right ureteral calculus at the level of L3. Management Assistant: PSCB Transcribe Date/Time: Mar 11 2023 8:56A Dictated by : HERBERTH HUNTER MD This examination was interpreted and the report reviewed and electronically signed by: HERBERTH HUNTER MD on Mar 11 2023 9:00AM EST [id number] [facility] ANES PREOPon 03-10-2023 ANES PREOP HNO ID: [id number] Author: Hayley Mike APRN.CNP Service: ? Author Type: Nurse Practitioner Type: Anesthesia PreOp Filed: 03/10/2023 1:03 PM Note Text: -- Summary: preanesthesia note -- 43 yo obese female with HX: PUD, cerebral aneurysm (2015, monitored by Dr. Oneal), migraines, hypothyroid, IBS, insulin resistance, PCOS, protein S disorder (no meds), CADENCE-noncompliant w/ cpap ECHO 05/2020 (Vasuishillary, arrhythmia): Ef 65, mild mitral thickening, trivial MR and TR, RVSP 23 Holter 03/2020: SR w/ ST and SB, average 73bpm, rare supraventricular ectopic singles, one couplet, one 11 beat run SVT/atrial tach Normal [facility] 02-27-2023 CNPN Telephone (URCANT) -- SAMMY REDD ([id number]) 1980 F Date Time Provider Department 02/27/23 PERLITA CUNNINGHAM During your visit today, we recorded the following information about you: Perlita Cunningham APRN.CNP 02/27/2023 1:[address] from [place] with Dr. Barahona. R ureteral stone does appear to be back in the Kidney ? She is still having intermittent pain, hematuria and frequency. She is going to the lab to get a PTT (hx of a blood disorder when she was ) and will get a urine c+s as well. I sent in Bactri as well. She is scheduled for R ESWL with Dr. Barahona on 03/11/23 at this time. We will keep this unless PTT is abnormal. Perlita Cunningham APRN.JOI Allergies As of Date: 02/27/2023 Noted Allergy Reaction ALEVE (NAPROXEN SODIUM) 04/28/2007 11 - Vomiting Comments: Ibuprofen without problems Vomiting with Aleve with one time use MENTHOL 08/07/2022 2 - Rash METFORMIN 01/23/2017 8 - GI Upset PENICILLINS 04/28/2007 7 - Swelling Date Reviewed: 02/12/2023 Reviewed by: Alfredo Ortega APRN.PRINTING EQUIPMENT MECHANIC APPRENTICE - Fully Assessed Reason for Visit: Patient Update [1234] Prescriptions as of 02/27/2023 - sulfamethoxazole-trimethop rim (BACTRIM DS) 800-160 mg per tablet Take 1 tablet by mouth two times a day for 5 days. - oxyCODONE-acetaminophen (PERCOCET) 5-325 mg tablet Take 1 tablet by mouth every 8 hours as needed for pain for up to 7 days. - tamsulosin (FLOMAX) 0.4 mg Take 1 capsule by mouth daily at bedtime. For kidney stones - dextroamphetamine-amphetam ine (ADDERALL) 5 mg tablet Take 1 tablet by mouth once daily as needed for up to 30 days. In the afternoon, in addition to am 10mg dose. - Phentermine HCl (ADIPEX-P) 37.5 mg tablet Take 1 tablet by mouth once daily for 30 days. BMI 36.91 - vitamin b complex (B COMPLETE) tab Take 1 tablet by mouth once daily. - tiZANidine (ZANAFLEX) 4 mg tablet Take 1 tablet by mouth every 8 hours as needed (muscle spasms). - Magnesium Oxide 250 mg magnesium tab Take 1 tablet by mouth daily at bedtime. - triamcinolone acetonide (KENALOG) 0.5 % cream Apply 1 application to affected area daily at bedtime. On left lower leg skin lesion at ankle. Apply sparingly. Avoid face/skin fold. - levothyroxine (SYNTHROID) 88 mcg tablet Take 1 tablet by mouth once daily. and skip 1 day weekly. - carbonyl iron 15 mg chew Take 1 tablet by mouth twice daily with meals. - Cholecalciferol, Vitamin D3, 125 mcg (5,000 unit) cap Take 1 capsule by mouth once daily. - ondansetron orally disintegrating (ZOFRAN ODT) 4 mg disintegrating tablet Take 1 tablet by mouth every 6 hours as needed for Nausea/Vomiting. Problem List As Of Date 02/27/2023 Noted Resolved Renal calculi [N20.0] 05/13/2010 03/10/2017 Hypothyroidism, acquired [E03.9] 05/13/2010 Lumbar disc disease [M51.9] 05/13/2010 Polycystic ovary syndrome [E28.2] 06/19/2010 Rosacea [L71.9] 06/19/2010 Dysmetabolic syndrome [E88.810] 01/15/2011 Acute right flank pain [R10.9] 06/28/2012 [...] 35-39.9 [E66.9] 06/30/2022 Right nephrolithiasis [N20.0] 06/30/2022 Right ureteral stone [N20.1] 02/09/2023 Gross hematuria [R31.0] 02/09/2023 Encounter Status:Closed by PERLITA CUNNINGHAM on 02/27/23 [facility] CNCOon 02-26-2023 CNCO Letter Text [facility] Absolute lymphocyte countOrd ered By: David Tejeda on 02-24-2023 Lymphocytes Auto (Unsp spec) [#/Vol] 3.97 10*3/uL 0.83-4.51 [facility] Basophil percentageOrdered B y: David Tejeda on 02-24-2023 Basophil percentage 0-5 SEEN /hpf 0-5 Wo [facility] Basophils/100 WBC (Bld) 0.7 % 0-1 [facility] Chloride [Moles/Vol] 112 mmol/L 98-107 [facility] Eosinophils/100 WBC (Bld) 3.3 % 0-5 [facility] Glucose [Mass/Vol] 102 mg/dL 74-106 [facility] Comment on above: Fasting Glucose resu lt from 100 to 125 mg/dL suggests IMPAIRED HOMEOSTASIS per A.D.A. criteria. Neutrophils (Bld) [#/Vol] 6.4 10*3/uL 2.0-7.7 [facility] Neutrophils/100 WBC (Bld) 56.3 % 47-70 [facility] Potassium [Moles/Vol] 3.8 mmol/L 3.5-5.1 [facility] Sodium [Moles/Vol] 144 mmol/L 136-145 [facility] WBC (Bld) [#/Vol] 11.4 10*3/uL 4.4-11.0 [facility] Beta hCG serum qualOrdered B y: David Tejeda on 02-24-2023 Beta HCG ( test) Ql Negative [facility] Bilirubin Test strip Ql (U)O rdered By: David Tejeda on 02-24-2023 Bilirubin Ql (U) Negative Negative [facility] Blood erythrocytes count (nu mber/volume)Ordered By: David Tejeda on 02-24-2023 RBC (Bld) [#/Vol] 4.52 10*6/uL 4.2-5.4 [facility] Blood hemoglobin measurement (mass/volume)Ordered By: David Tejeda on 02-24-2023 Hemoglobin (Bld) [Mass/Vol] 13.5 g/dL 12.0-15.0 [facility] Blood lymphocytes/100 leukoc ytesOrdered By: David Tejeda on 02-24-2023 Lymphocytes/100 WBC (Bld) 35.0 % 19-41 [facility] Blood monocytes/100 leukocyt esOrdered By: David Tejeda on 02-24-2023 Monocytes/100 WBC (Bld) 4.4 % 0-10 [facility] Blood platelet mean volumeOr dered By: David Tejeda on 02-24-2023 Platelet mean volume (Bld) [Entitic vol] 10.1 fL 6.2-12.0 [facility] Determination of erythrocyte mean corpuscular volume (MCV)Ordered By: David Tejeda on 02-24-2023 MCV (RBC) [Entitic vol] 92.7 fL 81-99 [facility] Hematocrit Auto (Bld) [Volum e fraction]Ordered By: David Tejeda on 02-24-2023 Hematocrit (Bld) [Volume fraction] 41.9 % 37-47 [facility] Ketones Test strip Ql (U)Ord ered By: David Tejeda on 02-24-2023 Ketones Ql (U) Negative Negative [facility] Laboratory - Chemistry and C hemistry - challengeOrdered By: David Tejeda on 02-24-2023 CO2 [Moles/Vol] 30.0 mmol/L 21.0-32.0 [facility] Urea nitrogen/Creatinine [Mass ratio] 22.0 mg/mg 10-20 [facility] Laboratory - Hematology and Cell countsOrdered By: David Tejeda on 02-24-2023 Erythrocyte distribution width (RBC) [Entitic vol] 45.8 fL 35.1-43.9 [facility] Erythrocyte distribution width (RBC) [Ratio] 13.3 % 11.6-14.6 [facility] Immature granulocytes/100 WBC (Bld) 0.300 % 0.0-0.9 [facility] Comment on above: IG% - Immature Granu locytes (promyelocytes, myelocytes and metamyelocytes) > 1% indicates that a LEFT SHIFT is Present. MCH (RBC) [Entitic mass] 29.9 pg 27.0-32.0 [facility] Nucleated RBC/100 WBC (Bld) [Ratio] 0 % 0-5 [facility] MCHC Auto (RBC) [Mass/Vol]Or dered By: David Tejeda on 02-24-2023 MCHC (RBC) [Mass/Vol] 32.2 g/dL 32-36 [facility] Mucus LM Ql (Urine sed)Order ed By: David Tejeda on 02-24-2023 Mucus Ql (Urine sed) 0 SEEN /hpf [facility] Nitrite Test strip Ql (U)Ord ered By: David Tejeda on 02-24-2023 Nitrite Ql (U) Negative Negative [facility] No Panel InformationOrdered By: David Tejeda on 02-24-2023 Estimated Creatinine Clearance Calc 57.26 ml/min [facility] Estimated GFR (MDRD) Amer 87 mL/min >60 [facility] Comment on above: GFR Calc Estimated GFR (MDRD) Non-Af Amer 72 mL/min >60 [facility] Comment on above: Non- GFR Calc Platelets bldOrdered By: Brent Tejeda on 02-24-2023 Platelets (Bld) [#/Vol] 284 10*3/uL 150-450 [facility] Protein Test strip Ql (U)Ord ered By: David Tejeda on 02-24-2023 Protein Ql (U) 30 mg/dl Negative [facility] Serum or plasma calcium waldo urement (mass/volume)Ordered By: David Tejeda on 02-24-2023 Calcium [Mass/Vol] 8.7 mg/dL 8.5-10.1 [facility] Serum or plasma creatinine m easurement (mass/volume)Ordered By: David Tejeda on 02-24-2023 Creatinine [Mass/Vol] 0.91 mg/dL 0.55-1.02 [facility] Comment on above: The validity of the calculated GFR & GFRAA in patients over 70 years has not been determined. Clinical correlation is essential. Serum or plasma urea nitroge n measurement (mass/volume)Ordered By: David Tejeda on 02-24-2023 Urea nitrogen [Mass/Vol] 20 mg/dL 7-18 [facility] Squamous epithelial cells de tection in urine sediment by light microscopyOrdered By: David Tejeda on 02-24-2023 Epithelial cells.squamous LM Ql (Urine sed) 0-5 SEEN /hpf 5-10 [facility] Thin prep Papanicolaou smear with manual screeningOrdered By: David Tejeda on 02-24-2023 Thin prep Papanicolaou smear with manual screening 2 5-15 [facility] Urine blood detectionOrdered By: David Tejeda on 02-24-2023 RBC Ql (U) 250 /ul Negative [facility] RBC Ql (U) > 100 SEEN /hpf 0-5 [facility] Urine clarityOrdered By: Brent Tejeda on 02-24-2023 Clarity (U) Cloudy Clear [facility] Urine color determinationOrd ered By: David Tejeda on 02-24-2023 Color (U) Yellow Yellow [facility] Urine glucose detectionOrder ed By: David Tejeda on 02-24-2023 Glucose Ql (U) Normal mg/dl Normal [facility] Urine leukocyte esterase det ection by dipstickOrdered By: David Tejeda on 02-24-2023 Leukocyte esterase Test strip Ql (U) 25 /ul Negative [facility] Urine pHOrdered By: David espinoza on 02-24-2023 pH (U) 6.5 [pH] 5.0 - 8.0 [facility] Urine sediment bacteria coun t by microscopy (number/high power field)Ordered By: David Tejeda on 02-24-2023 Bacteria LM.HPF (Urine sed) [#/Area] 0 /[HPF] None Seen [facility] Urine specific gravity measu rementOrdered By: David Tejeda on 02-24-2023 Specific gravity (U) [Rel density] 1.015 1.002-1.030 [facility] Urobilinogen Auto test strip Ql (U)Ordered By: David Tejeda on 02-24-2023 Urobilinogen Ql (U) Normal mg/dl Normal [facility] CNPNon 02-18-2023 CNPN Telephone (URCANT) -- SAMMY REDD ( ) 1980 F Date Time Provider Department 02/18/23 PERLITA CUNNINGHAM During your visit today, we recorded the following information about you: Perlita Cunningham APRN.PRINTING EQUIPMENT MECHANIC APPRENTICE 02/18/2023 3:24 PM Signed Tried calling pt to review KUB results- no answer. KUB still showing the ureteral stone. She does have an appt with Vicky next week, but if she was in a lot of pain I was going to discuss surgical options. Thanks, Perlita Cunningham APRN.PRINTING EQUIPMENT MECHANIC APPRENTICE Susanna Da Silva OCCA 02/19/2023 8:44 AM Signed Tried calling patient. No answer. Had to [facility] to call the office back. MAGDIEL Sullivan Allergies As of Date: 02/18/2023 Noted Allergy Reaction ALEVE (NAPROXEN SODIUM) 04/28/2007 11 - Vomiting Comments: Ibuprofen without problems Vomiting with Aleve with one time use MENTHOL 08/07/2022 2 - Rash METFORMIN 01/23/2017 8 - GI Upset PENICILLINS 04/28/2007 7 - Swelling Date Reviewed: 02/12/2023 Reviewed by: Alfredo Ortega APRN.PRINTING EQUIPMENT MECHANIC APPRENTICE - Fully Assessed Reason for Visit: Results [95] Prescriptions as of 02/19/2023 - dextroamphetamine-amphetam ine (ADDERALL) 5 mg tablet Take 1 tablet by mouth once daily as needed for up to 30 days. In the afternoon, in addition to am 10mg dose. - Phentermine HCl (ADIPEX-P) 37.5 mg tablet Take 1 tablet by mouth once daily for 30 days. BMI 36.91 - vitamin b complex (B COMPLETE) tab Take 1 tablet by mouth once daily. - tiZANidine (ZANAFLEX) 4 mg tablet Take 1 tablet by mouth every 8 hours as needed (muscle spasms). - tamsulosin (FLOMAX) 0.4 mg Take 1 capsule by mouth daily at bedtime. For kidney stones - Magnesium Oxide 250 mg magnesium tab Take 1 tablet by mouth daily at bedtime. - triamcinolone acetonide (KENALOG) 0.5 % cream Apply 1 application to affected area daily at bedtime. On left lower leg skin lesion at ankle. Apply sparingly. Avoid face/skin fold. - levothyroxine (SYNTHROID) 88 mcg tablet Take 1 tablet by mouth once daily. and skip 1 day weekly. - carbonyl iron 15 mg chew Take 1 tablet by mouth twice daily with meals. - Cholecalciferol, Vitamin D3, 125 mcg (5,000 unit) cap Take 1 capsule by mouth once daily. - ondansetron orally disintegrating (ZOFRAN ODT) 4 mg disintegrating tablet Take 1 tablet by mouth every 6 hours as needed for Nausea/Vomiting. Problem List As Of Date 02/18/2023 Noted Resolved Renal calculi [N20.0] 05/13/2010 03/10/2017 Hypothyroidism, acquired [E03.9] 05/13/2010 Lumbar disc disease [M51.9] 05/13/2010 Polycystic ovary syndrome [E28.2] 06/19/2010 Rosacea [L71.9] 06/19/2010 Dysmetabolic syndrome [E88.810] 01/15/2011 Acute right flank pain [R10.9] 06/28/2012 [...] 35-39.9 [E66.9] 06/30/2022 Right nephrolithiasis [N20.0] 06/30/2022 Right ureteral stone [N20.1] 02/09/2023 Gross hematuria [R31.0] 02/09/2023 Encounter Status:Closed by PERLITA CUNNINGHAM on 02/18/23 [facility] MIGNON Telephone (URCANT) -- SAMMY REDD ([id number]) 1980 F Date Time Provider Department 02/18/23 PERLITA CUNNINGHAM URCALI During your visit today, we recorded the following information about you: Perlita Cunningham APRN.CNP 02/18/2023 3:24 PM Signed Tried calling pt to review KUB results- no answer. KUB still showing the ureteral stone. She does have an appt with Vicky next week, but if she was in a lot of pain I was going to discuss surgical options. Thanks, RICARDO Roberts Kendra, OCCA 02/19/2023 8:44 AM Signed Tried calling patient. No answer. Had to [facility] to call the office back. MAGDIEL Sullivan Kendra, OCCA 02/19/2023 10:27 AM Signed Called and spoke with patient. She states she went to the ER on Thursday for her stone and her severe pain comes and goes. Patient states she has had stones in the past and typically she can not pass them on her own. She states she thinks she may need surgery. I also stated to her that you will be calling her later to discuss (per conversation we had). Patient states an understanding and is looking forward to your call. MAGDIEL Sullivan Perlita Cunningham APRN.JOI 02/19/2023 12:53 PM Signed Please arrange R ureteral ESWL with Dr. Barahona. I put orders in. Procedure discussed with pt and Dr. Barahona (since pt has a hx of Protein S deficiency) Also, cancel Thursday appt with Vicky. Thanks, RICARDO Roberts Lindsay, APRN.CNP 02/19/2023 12:53 PM Signed Addended by: PERLITA CUNNINGHAM on: 02/19/2023 12:53 PM Modules accepted: Orders Michaela Vuong 02/19/2023 4:59 PM Signed Cancelled appointment. Michaela Vuong 02/23/2023 8:38 AM Signed Pt called and is on 03/11 with . Pt states she has protein S deficiency and usually does lovenox before surgery will she need that? She also states she is having a lot of pain on her R side under rib cage back and front comes and goes, she wants to know if she needs to come into the office for that. Nelida Longo APRN.CNP 02/24/2023 1:05 PM [address] Spoke with Dr Barahona and Perlita, lets just check PTT (blood test to check how long it takes blood to clot) order in chart and so from there . Thanks. RICARDO Montiel Melissa, APRN.CNP 02/24/2023 1:05 PM Signed Addended by: NELIDA IRVING on: 02/24/2023 01:05 PM Modules accepted: Michaela Aleman 02/24/2023 3:58 PM Signed Pt is on for an ESWL under general anesthesia with on 03/11. CASE# [id number] Pt aware of prep and arrival instructions given verbally 02/23. Pt ave verbal confirmation she is not on blood thinners. [employer] message sent 02/24. Pos top 03/24 at 8:00 in the [place] office. ESWL bed REF# [id number] per portal Michaela Carrillo 02/25/2023 8:27 AM Addendum Called pt to make aware about blood test and she gave understanding. Went to [facility] last night for pain and lots of blood in urine. Was being blood and in right side and back, cramping and stabbing pain. ER doc, Dr. Nikhil Hernandez, he did a CT scan and said there is only one kidney stone in the kidney. He told her she shouldn't be in pain no kidney stone moving, it is in her kidney and not in her ureter. He gave her morphine and nausea medication while she was there. Still in pain today but not as bad yesterday but is nauseous, small amount of blood in urine today. She did not like the ER doctor. Getting records faxed over from hospital. Xi Franklin MD 02/25/2023 4:04 PM Signed I need to see the result of the CT. If she passed the stone, we will talk about canceling the ESWL Michaela Vuong 02/25/2023 4:38 PM Signed Pt called in and is still having severe pain and blood in urine asked for an appt and I scheduled her with Vicky on Thursday. Michaela Carrillo 02/26/2023 8:[address] results and hospital report is in her chart under scanned docs. MarryssPerlita Cristobal APRN.JOI 02/26/2023 9:02 AM Signed Addended by: PERLITA CUNNINGHAM on: 02/26/2023 09:02 AM Modules accepted: Orders Perlita Cunningham APRN.JOI 02/26/2023 9:07 AM Addendum I spoke to pt this morning and sent in pain pills for her. Please cancel her appt with Vicky on Thursday. ALSO, can we call [place] or whoever we need to call and have the [facility]? Thanks, Perlita Cunningham APRN.Xi Arias MD 02/26/2023 5:17 PM Signed Aimee, Please call radiology and have them pull the images to our PACS. Thanks Preeti Oh 02/27/2023 9:06 AM Signed Imaging should be in [facility] soon Allergies As of Date: 02/18/2023 Noted Allergy Reaction ALEVE (NAPROXEN SODIUM) 04/28/2007 11 - Vomiting Comments: Ibuprofen without p (more content not included)... Normal [facility] No Panel Informationon 02-16 [facility] Absolute lymphocyte countOrd ered By: Maykel Mann on 02-14-2023 Lymphocytes Auto (Unsp spec) [#/Vol] 2.76 10*3/uL 0.83-4.51 [facility] Basophil percentageOrdered B y: Maykel Mann on 02-14-2023 Basophil percentage 5-10 SEEN /hpf 0-5 [facility] Basophils/100 WBC (Bld) 0.7 % 0-1 [facility] Chloride [Moles/Vol] 110 mmol/L 98-[facility] Eosin[facility] WBC (Bld) 4.7 % 0-5 [facility] Glucose [Mass/Vol] 101 mg/dL 74-106 [facility] Comment on above: Fasting Glucose resu lt from 100 to 125 mg/dL suggests IMPAIRED HOMEOSTASIS per A.D.A. criteria. Neutrophils (Bld) [#/Vol] 4.5 10*3/uL 2.0-7.7 [facility] Neutrophils/100 WBC (Bld) 54.0 % 47-70 [facility] Potassium [Moles/Vol] 4.0 mmol/L 3.5-5.1 [facility] Sodium [Moles/Vol] 144 mmol/L 136-145 [facility] WBC (Bld) [#/Vol] 8.3 10*3/uL 4.4-11.0 [facility] Bilirubin Test strip Ql (U)O rdered By: Maykel Mann on 02-14-2023 Bilirubin Ql (U) Negative Negative [facility] Blood erythrocytes count (nu mber/volume)Ordered By: Maykel Mann on 02-14-2023 RBC (Bld) [#/Vol] 4.56 10*6/uL 4.2-5.4 [facility] Blood hemoglobin measurement (mass/volume)Ordered By: Maykel Mann on 02-14-2023 Hemoglobin (Bld) [Mass/Vol] 13.5 g/dL 12.0-15.0 [facility] Blood lymphocytes/100 leukoc ytesOrdered By: Maykel Mann on 02-14-2023 Lymphocytes/100 WBC (Bld) 33.2 % 19-41 [facility] Blood monocytes/100 leukocyt esOrdered By: Maykel Mann on 02-14-2023 Monocytes/100 WBC (Bld) 7.2 % 0-10 [facility] Blood platelet mean volumeOr dered By: Maykel Mann on 02-14-2023 Platelet mean volume (Bld) [Entitic vol] 10.5 fL 6.2-12.0 [facility] Culture, urineOrdered By: Sherita Mann on 02-14-2023 Bacteria identified Cx Nom (U) Positive [facility] Bacteria identified Cx Nom (U) Positive [facility] Determination of erythrocyte mean corpuscular volume (MCV)Ordered By: Maykel Mann on 02-14-2023 MCV (RBC) [Entitic vol] 92.3 fL 81-99 [facility] Hematocrit Auto (Bld) [Volum e fraction]Ordered By: Maykel Mann on 02-14-2023 Hematocrit (Bld) [Volume fraction] 42.1 % 37-47 [facility] Ketones Test strip Ql (U)Ord ered By: Maykel Mann on 02-14-2023 Ketones Ql (U) Negative Negative [facility] Laboratory - Chemistry and C hemistry - challengeOrdered By: Maykel Mann on 02-14-2023 CO2 [Moles/Vol] 27.0 mmol/L 21.0-32.0 [facility] Urea nitrogen/Creatinine [Mass ratio] 32.2 mg/mg 10-20 [facility] Laboratory - Hematology and Cell countsOrdered By: Maykel Mann on 02-14-2023 Erythrocyte distribution width (RBC) [Entitic vol] 44.7 fL 35.1-43.9 [facility] Erythrocyte distribution width (RBC) [Ratio] 13.2 % 11.6-14.6 [facility] Immature granulocytes/100 WBC (Bld) 0.200 % 0.0-0.9 [facility] Comment on above: IG% - Immature Granu locytes (promyelocytes, myelocytes and metamyelocytes) > 1% indicates that a LEFT SHIFT is Present. MCH (RBC) [Entitic mass] 29.6 pg 27.0-32.0 [facility] Nucleated RBC/100 WBC (Bld) [Ratio] 0 % 0-5 [facility] MCHC Auto (RBC) [Mass/Vol]Or dered By: Maykel Mann on 02-14-2023 MCHC (RBC) [Mass/Vol] 32.1 g/dL 32-36 [facility] Mucus LM Ql (Urine sed)Order ed By: Maykel Mann on 02-14-2023 Mucus Ql (Urine sed) 0 SEEN /hpf [facility] Nitrite Test strip Ql (U)Ord ered By: Maykel Mann on 02-14-2023 Nitrite Ql (U) Negative Negative [facility] No Panel InformationOrdered By: Maykel Mann on 02-14-2023 Estimated Creatinine Clearance Calc 73.39 ml/min [facility] Estimated GFR (MDRD) Amer 115 mL/min >60 [facility] Comment on above: GFR Calc Estimated GFR (MDRD) Non-Af Amer 95 mL/min >60 [facility] Comment on above: Non- GFR Calc Platelets bldOrdered By: Francisco Javier Mann on 02-14-2023 Platelets (Bld) [#/Vol] 256 10*3/uL 150-450 [facility] Protein Test strip Ql (U)Ord ered By: Maykel Mann on 02-14-2023 Protein Ql (U) 30 mg/dl Negative [facility] Serum or plasma calcium waldo urement (mass/volume)Ordered By: Maykel Mann on 02-14-2023 Calcium [Mass/Vol] 8.9 mg/dL 8.5-10.1 [facility] r [facility] Serum or plasma creatinine m easurement (mass/volume)Ordered By: Maykel Mann on 02-14-2023 Creatinine [Mass/Vol] 0.71 mg/dL 0.55-1.02 [facility] Comment on above: The validity of the calculated GFR & GFRAA in patients over 70 years has not been determined. Clinical correlation is essential. Serum or plasma urea nitroge n measurement (mass/volume)Ordered By: Maykel Mann on 02-14-2023 Urea nitrogen [Mass/Vol] 23 mg/dL 7-18 [facility] Squamous epithelial cells de tection in urine sediment by light microscopyOrdered By: Maykel Mann on 02-14-2023 Epithelial cells.squamous LM Ql (Urine sed) 0 SEEN /hpf 5-10 [facility] Thin prep Papanicolaou smear with manual screeningOrdered By: Maykel Mnan on 02-14-2023 Thin prep Papanicolaou smear with manual screening 7 5-15 [facility] Urine blood detectionOrdered By: Maykel Mann on 02-14-2023 RBC Ql (U) 150 /ul Negative [facility] RBC Ql (U) 10-25 SEEN /hpf 0-5 [facility] Urine clarityOrdered By: Francisco Javier Mann on 02-14-2023 Clarity (U) Clear Clear [facility] Urine color determinationOrd ered By: Maykel Mann on 02-14-2023 Color (U) Yellow Yellow [facility] Urine glucose detectionOrder ed By: Maykel Mann on 02-14-2023 Glucose Ql (U) Normal mg/dl Normal [facility] Urine leukocyte esterase det ection by dipstickOrdered By: Maykel Mann on 02-14-2023 Leukocyte esterase Test strip Ql (U) 25 /ul Negative [facility] Urine pHOrdered By: Maykel caldwell on 02-14-2023 pH (U) 6.0 [pH] 5.0 - 8.0 [facility] Urine sediment bacteria coun t by microscopy (number/high power field)Ordered By: Maykel Mann on 02-14-2023 Bacteria LM.HPF (Urine sed) [#/Area] 1 /[HPF] None Seen [facility] Urine specific gravity measu rementOrdered By: Maykel Mann on 02-14-2023 Specific gravity (U) [Rel density] 1.020 1.002-1.030 [facility] Urobilinogen Auto test strip Ql (U)Ordered By: Maykel Mann on 02-14-2023 Urobilinogen Ql (U) Normal mg/dl Normal [facility] CNPNon 02-11-2023 CNPN Telephone (UROLAE) -- SAMMY REDD ([id number]) 1980 F Date Time Provider Department 02/11/23 VICKY CROWLEY During your visit today, we recorded the following information about you: Gideon Gonzalez MA 02/11/2023 2:09 PM Signed Pt called in asking for urine culter results Pt also states she cannot hold urine since taking flowmax pt asking is this normal Please advise BAILEE Horvath Tiffany M, NETWORKING SPECIALIST.PRINTING EQUIPMENT MECHANIC APPRENTICE 02/12/2023 8:25 AM Signed Urine cx results contaminated. Stop flomax, generally not a symptom of flomax. May be due to stone lower in ureter. Gideon Gonzalez MA 02/12/2023 8:46 AM Signed Spoke with pt message released Allergies As of Date: 02/11/2023 Noted Allergy Reaction ALEVE (NAPROXEN SODIUM) 04/28/2007 11 - Vomiting Comments: Ibuprofen without problems Vomiting with Aleve with one time use MENTHOL 08/07/2022 2 - Rash METFORMIN 01/23/2017 8 - GI Upset PENICILLINS 04/28/2007 7 - Swelling Date Reviewed: 02/09/2023 Reviewed by: Daya Dunlap Cma - Fully Assessed Reason for Visit: Results [95] Patient Update [1234] Prescriptions as of 02/12/2023 - dextroamphetamine-amphetam ine (ADDERALL) 5 mg tablet Take 1 tablet by mouth once daily as needed for up to 30 days. In the afternoon, in addition to am 10mg dose. - Phentermine HCl (ADIPEX-P) 37.5 mg tablet Take 1 tablet by mouth once daily for 30 days. BMI 36.91 - vitamin b complex (B COMPLETE) tab Take 1 tablet by mouth once daily. - tiZANidine (ZANAFLEX) 4 mg tablet Take 1 tablet by mouth every 8 hours as needed (muscle spasms). - tamsulosin (FLOMAX) 0.4 mg Take 1 capsule by mouth daily at bedtime. For kidney stones - Magnesium Oxide 250 mg magnesium tab Take 1 tablet by mouth daily at bedtime. - triamcinolone acetonide (KENALOG) 0.5 % cream Apply 1 application to affected area daily at bedtime. On left lower leg skin lesion at ankle. Apply sparingly. Avoid face/skin fold. - levothyroxine (SYNTHROID) 88 mcg tablet Take 1 tablet by mouth once daily. and skip 1 day weekly. - carbonyl iron 15 mg chew Take 1 tablet by mouth twice daily with meals. - Cholecalciferol, Vitamin D3, 125 mcg (5,000 unit) cap Take 1 capsule by mouth once daily. - ondansetron orally disintegrating (ZOFRAN ODT) 4 mg disintegrating tablet Take 1 tablet by mouth every 6 hours as needed for Nausea/Vomiting. Problem List As Of Date 02/11/2023 Noted Resolved Renal calculi [N20.0] 05/13/2010 03/10/2017 Hypothyroidism, acquired [E03.9] 05/13/2010 Lumbar disc disease [M51.9] 05/13/2010 Polycystic ovary syndrome [E28.2] 06/19/2010 Rosacea [L71.9] 06/19/2010 Dysmetabolic syndrome [E88.810] 01/15/2011 Acute right flank pain [R10.9] 06/28/2012 [...] 35-39.9 [E66.9] 06/30/2022 Right nephrolithiasis [N20.0] 06/30/2022 Right ureteral stone [N20.1] 02/09/2023 Gross hematuria [R31.0] 02/09/2023 Encounter Status:Closed by VICKY CROWLEY on 02/12/23 Normal [facility] Bacteria Ur Culton 3 Bacteria identified Cx Nom (U) CULTURE, URINE: Three or more urogenital benji organisms. No predominating uropathogen. Recollect if clinically indicated. Normal [facility] Comment on above: Performed By: #### 6 30-4 #### [facility] CLIA [id number] [address] CNOVon 02-09-2023 CNOV Office Visit (UROLAE ) -- SAMMY REDD ([id number]) 1980 F Date Time Provider Department 02/09/23 11:00 AM VICKY CROWLEY UROLAVenecia During your visit today, we recorded the following information about you: Pulse Weight Height 68/minute 87.1 kg 1.524 m Vicky Crowley, NETWORKING SPECIALIST.PRINTING EQUIPMENT MECHANIC APPRENTICE 02/09/2023 11:45 AM Signed [facility] NEW CONSULT HISTORY AND PHYSICAL EXAMINATION PATIENT: Sammy Redd (43 year old) REFERRING PROVIDER: 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 PCP: Jose Luis Toledo DO Consultation requested by 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 for an opinion regarding Sammy Redd. My final recommendations will be communicated back to the requesting physician by way of shared Medical record or letter to requesting physician via US mail. -- SUMMARY: Patient presents to establish for concern [...] Return for 2 weeks with renal us/kub. -- CHIEF COMPLAINT: Patient presents with: Kidney Stones [...] (2015), Dr. Colin (-2008), previous urologist in [facility] Hx of kidney stones: yes, Family hx of kidney stones/treatment: hx of stone treatment in 2008 requiring laser lithotripsy. 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 Protein S deficiency. Personal/family hx of kidney cancer, bladder cancer, or prostate cancer: denies Previous surgery on kidneys, bladder, urethra, or prostate: lithotripsy x 8 in the past, last in 2008. Hx of smoking: denies Environmental/occupational exposures: Sammy is a 43 year old female with [...] Take 1 capsule by mouth once daily. dextroamphetamine-amphetam ine (ADDERALL) 5 mg tablet Take 1 tablet [...] tablet by mouth every 6 hours as need (more content not included)... Normal [facility] UA DIP, URINE (POC)on 2022 BILIRUBIN UA (POCT) Negative Negative [facility] CLARITY UA (POCT) Clear [facility] COLOR UA (POCT) Yellow [facility] GLUCOSE UA (POCT) Negative Negative mg/dL [facility] Hemoglobin Ql (U) Moderate Abnormal Negative [facility] KETONE UA (POCT) Negative Negative mg/dL [facility] LEUKOCYTES UA (POCT) Negative Negative [facility] NITRITE UA (POCT) Negative Negative [facility] PH UA (POCT) 6.0 4.5 - 8.0 [facility] Protein Ql (U) Negative Negative mg/dL [facility] SPECIFIC GRAVITY UA (POCT) 1.015 1.005 - 1.030 [facility] UROBILINOGEN UA (POCT) 0.2 E.U./dL Georgina l E.U./dL [facility] CT FLANK WO IVCONon 02-06-[address] FLANK WO IVCON * * *Final Report* * * DATE OF EXAM: Feb 05 2023 8:51AM [facility] 0529 - CT FLANK WO IVCON / PROCEDURE REASON: multiple diagnoses * * * * Physician Interpretation * * * * EXAMINATION: CT ABDOMEN AND PELVIS WITHOUT IV CONTRAST (Renal stone protocol) CLINICAL HISTORY: Unspecified flank pain. TECHNIQUE: Non-contrast imaging of the abdomen and pelvis was performed through the urinary tract. Study performed without intravenous or oral contrast to evaluate for urinary tract calculus. MQ: [id number] Contrast: IV contrast: None Oral contrast: None CT Radiation dose: Integrated dose-length product (DLP) for this visit = 721.37 mGy*cm. CT Dose Reduction Employed: Automated exposure control(AEC) and iterative recon COMPARISON: 05/19/2022, and others RESULT: Limitations: Unenhanced imaging is limited for the evaluation of some renal and other intra-abdominal and pelvic pathology. Urinary Tract: Right kidney and ureter: 4 mm calculus proximal collecting system at the UPJ. No hydronephrosis. No finding to suggest cyst or mass in the unenhanced kidney. Left kidney and ureter: No calculus. No hydronephrosis. No finding to suggest cyst or mass in the unenhanced kidney. Bladder: Contracted and difficult to evaluate. Abdomen and Pelvis: Liver: Unremarkable. Biliary: The gallbladder is unremarkable. Spleen: No splenomegaly. Pancreas: Unremarkable. Adrenals: Normal. GI Tract: No bowel dilation. Lymph Nodes: No lymphadenopathy. Mesentery/peritoneum: No ascites. Vasculature: No abdominal aortic or iliac artery aneurysm. Pelvis: No mass or ascites. Bones and Soft Tissues: No acute abnormality. Lower thorax: Unremarkable. Lead Mason Tender (topogram) images: Unremarkable. IMPRESSION: 4 mm nonobstructing calculus right proximal collecting system at the [facility]. Management Assistant: MARLON Transcribe Date/Time: Feb 06 2023 7:54A Dictated by : GREGORIO CUMMINGS MD This examination was interpreted and the report reviewed and electronically signed by: GREGORIO CUMMINGS MD on Feb 06 2023 7:57AM EST [id number] Normal [facility] URINE CULTUREon 02-04-2023 Bacteria identified Cx Nom (U) 10,000 -<50,000 CFU/ml Normal urogenital benji [facility] UA DIP, URINE (POC)on 2022 BILIRUBIN UA (POCT) Negative Negative [facility] CLARITY UA (POCT) Clear [facility] COLOR UA (POCT) Yellow [facility] GLUCOSE UA (POCT) Negative Negative mg/dL [facility] Hemoglobin Ql (U) Small Abnormal [facility]ETONE UA ([facility]CT) Negative Negative mg/dL [facility] LEUKOCYTES UA (POCT) Negative Negative [facility] NITRITE UA (POCT) Negative Negative [facility] PH UA (POCT) 7.5 4.5 - 8.0 [facility] Protein Ql (U) Negative Negative mg/dL [facility] SPECIFIC GRAVITY UA (POCT) 1.020 1.005 - 1.030 [facility] UROBILINOGEN UA (POCT) 0.2 E.U./dL Georgina l E.U./dL [facility] XR CHEST 2V FRONTAL/LATon [facility] XR Chest PA and Lateralon IMPRESSION: No acute radiographic abnormality. Management Assistant: MARLON Transcribe Date/Time: Aug 14 2022 2:19P Dictated by : ISSAC SANTANA MD This examination was interpreted and the report reviewed and electronically signed by: ISSAC SANTANA MD on Aug 14 2022 2:20PM [facility] DIVISION OF RADIOLOGY * * *Final Report* * * DATE OF EXAM: Aug 14 2022 12:35PM WOX [id number] - XR CHEST 2V FRONTAL/LAT / PROCEDURE REASON: multiple diagnoses * * * * Physician Interpretation * * * * EXAMINATION: CHEST RADIOGRAPH (2 VIEW FRONTAL & LATERAL) CLINICAL HISTORY: Bronchitis Hoarse MQ: XC2_6 EXAM DATE/TIME: 08/14/2022 12:35 PM COMPARISON: 08/07/2022 RESULT: Lines, tubes, and devices: None. Lungs and pleura: No consolidation. No lung mass. No pleural effusion. No pneumothorax. Cardiomediastinal silhouette: Normal cardiomediastinal silhouette. Bones and soft tissues: Unremarkable. DIVISION OF RADIOLOGY Provider, [facility] - 08/14/2022 * * *Final Report* * * DATE OF EXAM: Aug 14 2022 12:35PM WOX [id number] - XR CHEST 2V FRONTAL/LAT / PROCEDURE REASON: multiple diagnoses * * * * Physician Interpretation * * * * EXAMINATION: CHEST RADIOGRAPH (2 VIEW FRONTAL & LATERAL) CLINICAL HISTORY: Bronchitis Hoarse MQ: XC2_6 EXAM DATE/TIME: 08/14/2022 12:35 PM COMPARISON: 08/07/2022 RESULT: Lines, tubes, and devices: None. Lungs and pleura: No consolidation. No lung mass. No pleural effusion. No pneumothorax. Cardiomediastinal silhouette: Normal cardiomediastinal silhouette. Bones and soft tissues: Unremarkable. IMPRESSION IMPRESSION: No acute radiographic abnormality. Management Assistant: MARLON Transcribe Date/Time: Aug 14 2022 2:19P Dictated by : ISSAC SANTANA MD This examination was interpreted and the report reviewed and electronically signed by: ISSAC SANTANA MD on Aug 14 2022 2:20PM EST [facility] Radiology Study observation (narrative) [facility] XR Chest PA and LateralOrder ed By: C[facility] Provider on 08-14-2022 [facility] Influenza virus A and B RNA and SARS-CoV-2 (COVID-19) N gene panel SHANE+probe (Resp)on 08-08-2022 FLUAV RNA SHANE+probe Ql (Unsp spec) Not detected Not Detected [facility] FLUBV RNA SHANE+probe Ql (Unsp spec) Not detected Not Detected [facility] SARS-CoV-2 (COVID-19) RNA SHANE+probe Ql (Resp) Not detected See comment [facility] STREP A MOLECULAR (POC)on Procedural Control Valid [facility] Strep A (POCT) Negative Negative [facility] XR CHEST 2V FRONTAL/LATon [facility] XR Chest PA and Lateralon IMPRESSION: No acute radiographic abnormality. Management Assistant: MARLON Transcribe Date/Time: Aug 07 2022 5:43P Dictated by : ANN HUSAIN MD This examination was interpreted and the report reviewed and electronically signed by: ANN HUSAIN MD on Aug 07 2022 5:44PM [facility] DIVISION OF RADIOLOGY * * *Final Report* * * DATE OF EXAM: Aug 07 2022 5:34PM WOX [id number] - XR CHEST 2V FRONTAL/LAT / PROCEDURE REASON: Acute cough * * * * Physician Interpretation * * * * EXAMINATION: CHEST RADIOGRAPH (2 VIEW FRONTAL & LATERAL) CLINICAL HISTORY: Acute cough MQ: XC2_6 EXAM DATE/TIME: 08/07/2022 5:34 PM COMPARISON: 06/30/2019 RESULT: Lines, tubes, and devices: None. Lungs and pleura: No consolidation. No lung mass. No pleural effusion. No pneumothorax. Cardiomediastinal silhouette: Normal cardiomediastinal silhouette. Bones and soft tissues: Unremarkable. DIVISION OF RADIOLOGY [facility] * * *Final Report* * * DATE OF EXAM: Aug 07 2022 5:34PM WOX [id number] - XR CHEST 2V FRONTAL/LAT / PROCEDURE REASON: Acute cough * * * * Physician Interpretation * * * * EXAMINATION: CHEST RADIOGRAPH (2 VIEW FRONTAL & LATERAL) CLINICAL HISTORY: Acute cough MQ: XC2_6 EXAM DATE/TIME: 08/07/2022 5:34 PM COMPARISON: 06/30/2019 RESULT: Lines, tubes, and devices: None. Lungs and pleura: No consolidation. No lung mass. No pleural effusion. No pneumothorax. Cardiomediastinal silhouette: Normal cardiomediastinal silhouette. Bones and soft tissues: Unremarkable. IMPRESSION IMPRESSION: No acute radiographic abnormality. Management Assistant: PSCB Transcribe Date/Time: Aug 07 2022 5:43P Dictated by : ANN HUSAIN MD This examination was interpreted and the report reviewed and electronically signed by: ANN HUSAIN MD on Aug 07 2022 5:44PM EST [facility] Radiology Study observation (narrative) [facility] XR Chest PA and LateralOrder ed By: [facility] Provider on 08-07-2022 [facility] No Panel InformationOrdered By: Dr. Mckinley on 05-22-2022 CA 125 Antigen 7.7 U/mL 0.0-38.1 [facility] Comment on above: [employer] El ectrochemiluminescence Immunoassay(ECLIA)Values obtained with different assay methods or kits cannotbe used interchangeably. Results cannot be interpreted asabsolute evidence of the presence or absence of malignantdisease.Performed at: [address] [id number] Director: Jens Jenkins PhD, Phone: [phone] Serum or plasma carcinoembry onic antigen measurement (mass/volume)Ordered By: Dr. Mckinley on 05-22-2022 Carcinoembryonic Ag [Mass/Vol] 0.7 ng/mL 0.0-4.7 [facility] Comment on above: Nonsmokers <3.9 Smok ers <5.6[employer] Electrochemiluminescence Immunoassay(ECLIA)Values obtained with different assay methods or kitscannot be used interchangeably. Results cannot beinterpreted as absolute evidence of the presence orabsence of malignant disease. CT FLANK WO IVCONon 05-19-19 [facility] Comprehensive metabolic 2000 panelon 05-19-2022 Albumin [Mass/Vol] 4.0 g/dL 3.9 - 4.9 g/dL [facility] ALP [Catalytic activity/Vol] 51 U/L 34 - 123 U/L [facility] ALT [Catalytic activity/Vol] 9 U/L 7 - 38 U/L [facility] Anion gap [Moles/Vol] 10 mmol/L 9 - 18 mmol/L [facility] AST [Catalytic activity/Vol] 11 U/L Low 13 - 35 U/L [facility] Bilirubin [Mass/Vol] 0.4 mg/dL 0.2 - 1 .3 mg/dL [facility] Calcium [Mass/Vol] 8.7 mg/dL 8.5 - 10. 2 mg/dL [facility] Chloride [Moles/Vol] 105 mmol/L 97 - 10 5 mmol/L [facility] CO2 [Moles/Vol] 24 mmol/L 22 - 30 mmol/L [facility] Creatinine [Mass/Vol] 0.68 mg/dL 0.58 - 0.96 mg/dL [facility] [facility] Estimated Glomerular Filtration Rate 112 mL/min/1.73m >=60 mL/min/1.73m [facility] Glucose [Mass/Vol] 89 mg/dL 74 - 99 mg/dL [facility] Potassium [Moles/Vol] 3.9 mmol/L 3.7 - 5.1 mmol/L [facility] Protein [Mass/Vol] 6.5 g/dL 6.3 - 8.0 g/dL [facility] Sodium [Moles/Vol] 139 mmol/L 136 - 144 mmol/L [facility] Urea nitrogen [Mass/Vol] 16 mg/dL 7 - 21 mg/dL [facility] US THYROID/PARATHYROIDon [facility] XR LUMBAR GENERAL 3V AP/LAT/ L5-S1on 05-19-2022 [facility] XR SACRUM/COCCYX 3V AP/LATon 05-19-2022 [facility] No Panel InformationOrdered By: Dr. Mckinley on 05-15-2022 Follicle Stimulating Hormone 102.8 mIU/mL [facility] Comment on above: NORMAL REFERENCE RAN GES FEMALE FOLLICULAR 2.3 - 12.6 mIU/mL MID-CYCLE PEAK 5.2 - 17.5 mIU/mL LUTEAL 1.7 - 12.9 mIU/mL POST-MENOPAUSAL ON MHT 5.9 - 72.8 mIU/mL NOT ON MHT 12.7 - 132.2 mlU/mL MALE 0.7 - 10.8 mIU/mL Serum or plasma estradiol (E 2) measurement (mass/volume)Ordered By: Dr. Mckinley on 05-15-2022 E2 [Mass/Vol] 23.1 pg/mL [facility] Comment on above: NORMAL REFERENCE RAN GES FEMALE FOLLICULAR 21.4 - 164.8 pg/mL MID-CYCLE PEAK 49.9 - 367.2 pg/mL LUTEAL 40.2 - 259.0 pg/mL POST-MENOPAUSAL ON MHT <11.0 - 462.1 pg/mL NOT ON MHT <11.0 - 58.3 pg/mL MALE <11.0 - 52.5 pg/mL NOTE:[employer] HAS CONFIRMED THE DRUG FULVETRANT (FASLODEX) MAY CAUSE FALSELY ELEVATED ESTRADIOL RESULTS WHEN USING THIS TEST METHOD. IF PATIENT IS TAKING FULVESTRANT AN ALTERNATIVE METHOD SHOULD BE USED TO DETERMINE ESTRADIOL CONCENTRATION. CT ABD/PEL W IVCONon 022 [facility] Absolute lymphocyte countOrd ered By: Dr. Stallings on 01-30-2022 Lymphocytes Auto (Unsp spec) [#/Vol] 2.01 10*3/uL 0.83-4.51 [facility] Basophil percentageOrdered B y: Dr. Stallings on 01-30-2022 Basophil percentage 0-5 SEEN /hpf 0-5 [facility] Basophils/100 WBC (Bld) 0.4 % 0-1 [facility] Chloride [Moles/Vol] 105 mmol/L 98-107 [facility] Eosinophils/100 WBC (Bld) 7.7 % 0-5 [facility] Glucose [Mass/Vol] 87 mg/dL 74-106 [facility] Neutrophils (Bld) [#/Vol] 6.7 10*3/uL 2.0-7.7 [facility] Neutrophils/100 WBC (Bld) 66.2 % 47-70 [facility] Potassium [Moles/Vol] 3.7 mmol/L 3.5-5.1 [facility] Sodium [Moles/Vol] 140 mmol/L 136-145 [facility] WBC (Bld) [#/Vol] 10.1 10*3/uL 4.4-11.0 [facility] Bilirubin Test strip Ql (U)O rdered By: Dr. Stallings on 01-30-2022 Bilirubin Ql (U) Negative Negative [facility] Blood erythrocytes count (nu mber/volume)Ordered By: Dr. Stallings on 01-30-2022 RBC (Bld) [#/Vol] 4.34 10*6/uL 4.2-5.4 [facility] Blood hemoglobin measurement (mass/volume)Ordered By: Dr. Stallings on 01-30-2022 Hemoglobin (Bld) [Mass/Vol] 13.3 g/dL 12.0-15.0 [facility] Blood lymphocytes/100 leukoc ytesOrdered By: Dr. Stallings on 01-30-2022 Lymphocytes/100 WBC (Bld) 20.0 % 19-41 [facility] Blood monocytes/100 leukocyt esOrdered By: Dr. Stallings on 01-30-2022 Monocytes/100 WBC (Bld) 5.5 % 0-10 [facility] Blood platelet mean volumeOr dered By: Dr. Stallings on 01-30-2022 Platelet mean volume (Bld) [Entitic vol] 9.6 fL 6.2-12.0 [facility] Determination of erythrocyte mean corpuscular volume (MCV)Ordered By: Dr. Stallings on 01-30-2022 MCV (RBC) [Entitic vol] 92.6 fL 81-99 [facility] Hematocrit Auto (Bld) [Volum e fraction]Ordered By: Dr. Stallings on 01-30-2022 Hematocrit (Bld) [Volume fraction] 40.2 % 37-47 [facility] Ketones Test strip Ql (U)Ord ered By: Dr. Stallings on 01-30-2022 Ketones Ql (U) Negative Negative [facility] Laboratory - Chemistry and C hemistry - challengeOrdered By: Dr. Stallings on 01-30-2022 CO2 [Moles/Vol] 30.0 mmol/L 21.0-32.0 [facility] Urea nitrogen/Creatinine [Mass ratio] 16.4 mg/mg 10-20 [facility] Laboratory - Hematology and Cell countsOrdered By: Dr. Stallings on 01-30-2022 Erythrocyte distribution width (RBC) [Entitic vol] 44.5 fL 35.1-43.9 [facility] Erythrocyte distribution width (RBC) [Ratio] 13.2 % 11.6-14.6 [facility] Immature granulocytes/100 WBC (Bld) 0.200 % 0.0-0.9 [facility] Comment on above: IG% - Immature Granu locytes (promyelocytes, myelocytes and metamyelocytes) > 1% indicates that a LEFT SHIFT is Present. MCH (RBC) [Entitic mass] 30.6 pg 27.0-32.0 [facility] Nucleated RBC/100 WBC (Bld) [Ratio] 0 % 0-5 [facility] MCHC Auto (RBC) [Mass/Vol]Or dered By: Dr. Stallings on 01-30-2022 MCHC (RBC) [Mass/Vol] 33.1 g/dL 32-36 [facility] Mucus LM Ql (Urine sed)Order ed By: Dr. Stallings on 01-30-2022 Mucus Ql (Urine sed) 0 SEEN /hpf [facility] Nitrite Test strip Ql (U)Ord ered By: Dr. Stallings on 01-30-2022 Nitrite Ql (U) Negative Negative [facility] No Panel InformationOrdered By: Dr. Stallings on 01-30-2022 Estimated Creatinine Clearance Calc 78.57 ml/min [facility] Estimated GFR (MDRD) Amer 124 mL/min >60 [facility] Comment on above: GFR Calc Estimated GFR (MDRD) Non-Af Amer 103 mL/min >60 [facility] Comment on above: Non- GFR Calc Platelets bldOrdered By: Dr. Stallings on 01-30-2022 Platelets (Bld) [#/Vol] 270 10*3/uL 150-450 [facility] Protein Test strip Ql (U)Ord ered By: Dr. Stallings on 01-30-2022 Protein Ql (U) Negative Negative [facility] Serum or plasma calcium waldo urement (mass/volume)Ordered By: Dr. Stallings on 01-30-2022 Calcium [Mass/Vol] 8.6 mg/dL 8.5-10.1 [facility] Serum or plasma creatinine m easurement (mass/volume)Ordered By: Dr. Stallings on 01-30-2022 Creatinine [Mass/Vol] 0.67 mg/dL 0.55-1.02 [facility] Comment on above: The validity of the calculated GFR & GFRAA in patients over 70 years has not been determined. Clinical correlation is essential. Serum or plasma urea nitroge n measurement (mass/volume)Ordered By: Dr. Stallings on 01-30-2022 Urea nitrogen [Mass/Vol] 11 mg/dL 7-18 [facility] Squamous epithelial cells de tection in urine sediment by light microscopyOrdered By: Dr. Stallings on 01-30-2022 Epithelial cells.squamous LM Ql (Urine sed) 0-5 SEEN /hpf 5-10 [facility] Thin prep Papanicolaou smear with manual screeningOrdered By: Dr. Stallings on 01-30-2022 Thin prep Papanicolaou smear with manual screening 5 5-15 [facility] Urine blood detectionOrdered By: Dr. Stallings on 01-30-2022 RBC Ql (U) Negative Negative [facility] RBC Ql (U) 0 SEEN /hpf 0-5 [facility] Urine clarityOrdered By: Dr. Stallings on 01-30-2022 Clarity (U) Clear Clear [facility] Urine color determinationOrd ered By: Dr. Stallings on 01-30-2022 Color (U) Yellow Yellow [facility] Urine glucose detectionOrder ed By: Dr. Stallings on 01-30-2022 Glucose Ql (U) Normal mg/dl Normal [facility] Urine leukocyte esterase det ection by dipstickOrdered By: Dr. Stallings on 01-30-2022 Leukocyte esterase Test strip Ql (U) Negative Negative [facility] Urine pHOrdered By: Dr. Mikal alberto on 01-30-2022 pH (U) 7.0 [pH] 5.0 - 8.0 [facility] Urine sediment bacteria coun t by microscopy (number/high power field)Ordered By: Dr. Stallings on 01-30-2022 Bacteria LM.HPF (Urine sed) [#/Area] 0 /[HPF] None Seen [facility] Urine specific gravity measu rementOrdered By: Dr. Stallings on 01-30-2022 Specific gravity (U) [Rel density] 1.010 1.002-1.030 [facility] Urobilinogen Auto test strip Ql (U)Ordered By: Dr. Stallings on 01-30-2022 Urobilinogen Ql (U) Normal mg/dl Normal [facility] Medical Cytologyon 2 Medical Cytology [facility], [facility] LABORATORY MEDICINE [address] [place] [address] FINAL MEDICAL CYTOLOGY REPORT NAME: SAMMY REDD : 1980 42 Y F BILLING NO.: [id number] LOCATION: PAC PACU OUTPT 1PAC PROCEDURE 01/27/2022 61 DATE: PHYSICIAN: DEON CAMACHO MD RECEIVED DATE: 01/28/2022 ATTENDING: DEON CAMACHO MD REPORT DATE: 01/29/2022 COPIES TO: CLINICAL DATA: DIAGNOSIS NO MALIGNANT CELLS IDENTIFIED. Mixed inflammatory cells present. SPECIMEN: PELVIC WASH PROCEDURE(S): WASHINGS GROSS DESCRIPTION: 100 ml, clear fluid, w/cytolyt. Materials Prepared & Examined: Cell Blocks . . . . . . . . . . . . 1 Monolayers . . . . . . . . . . . . 1 MRC Screened by JOAN ADAME M.D. The following statement applies to all immunohistochemistry, in situ hybridization, molecular studies, and immunofluorescence testing. The use of one or more reagents in the above tests is regulated as an analyte specific reagent (ASR). These tests were developed and their performance characteristics determined by the clinical laboratories of [facility]. They have not been cleared by the US Food and Drug Administration (FDA). The FDA has determined that such clearance or approval is not necessary. All the above immunostains were performed on paraffin embedded tissue. Appropriate positive and negative controls (where applicable) were run in parallel with the patient's specimen; these controls showed expected staining pattern, with acceptable intensity of staining. Immunohistochemical assays have not been validated on decalcified tissues. Results should be interpreted with caution given the raised possibility of false negativity on decalcified specimens. Case reviewed at [facility] [address] [place] [address]. DEPARTMENT OF PATHOLOGY AND LABORATORY MEDICINE [place], [place] [address] [id number] Normal [facility] OPERATIVE REPORTon Ordered by an unspec ified provider. [facility] Op Noteon 01-27-2022 Op Note Pre-operative Diagno sis: Pelvic mass and pelvic pain Post-operative Diagnosis: same Procedure: Robotic BSO Surgeon: Deon Camacho MD Anesthesia: General Estimated blood loss: Minimal Findings: Adnexal adhesions, benign left ovarian mass Complications: None Date of surgery was January 27 Description of operation. The patient identified and brought to the operating room and after ministration general anesthesia was placed in the supine position with a Vásquez catheter in where she underwent abdominal prep and drape. Timeout was performed. Compression stockings on and running. Using a knife a small incision was made in the inferior fold of the umbilicus and using the direct technique a blunt trocar was inserted atraumatically in the abdominal cavity 2 blunt da Estevan ports were placed in right left lower quadrant and a 5 mm blunt assistance port in the right upper quadrant. Intra-abdominal expiration was normal Trendelenburg's used to place about about the pelvis. There was a benign-appearing cyst involving the left ovary which was stuck to the sigmoid colon and the pelvic sidewall. The pelvic sidewall was opened the left ureter identified the left ovarian vessels were skeletonized above the ureter coagulated and divided. With the ureter under direct vision the mass was then dissected off the sigmoid colon as well as off the pelvic sidewall in its entirety. The right ovary was also adherent to the sigmoid colon as well as to the right pelvic sidewall and a similar technique was used. Both ovaries then placed into an Endobag the pelvis was irrigated the bag was moved out through the midline incision which was then closed using a running 0 Vicryl followed by subcuticular 4 Monocryl and Dermabond on all the skin incisions. Vásquez was removed. She is taken the covering stable condition with a minimal EBL. Normal [employer] Funding STUDIO 3on 2 [facility] Work Phone: Radiology Study observation (narrative) [facility] Work Phone: Surgical Pathologyon 022 Surgical Pathology [id number] [facility] PATHOLOGY AND LABORATORY MEDICINE [address] [place] [address] FINAL SURGICAL PATHOLOGY REPORT NAME: SAMMY REDD : 1980 42 Y F BILLING NO.: [id number] LOCATION: [address] 61 PROCEDURE 01/27/2022 DATE: SURGEON: DEON CAMACHO MD RECEIVED 01/28/2022 DATE: ATTENDING: DEON CAMACHO MD REPORT DATE: 01/30/2022 COPIES TO: DIAGNOSIS: BILATERAL OVARIES, BILATERAL OOPHORECTOMY - ONE OVARY WITH BENIGN SEROUS CYSTADENOMA. - BILATERAL OVARIES WITH FOLLICULAR AND CORTICAL INCLUSION CYSTS. TESFAYEK/LUNA Signature> Vladislav NGUYEN, PhD CLINICAL INFORMATION: Pelvic mass SPECIMEN: OVARIES, BILATERAL (RFN), WITH/WITHOUT TUBES GROSS DESCRIPTION: Received in formalin, labeled bilateral ovaries, are two cystic structures possibly representing ovaries. The requisition states left ovarian mass, although both segments appear cystic. The larger of the two measures 5 x 4 x 2.5 cm, while the smaller measures 5.5 x 2.5 x 1.5 cm. The segments weigh 32 grams and 17 grams, respectively. Upon transection of the segments, each demonstrates pink-gonzalez cut surfaces with scattered subcortical cysts containing clear watery fluid. The larger ovary contains the largest cyst measuring 3 cm in greatest dimension. No excrescences are identified. Sections taken from the larger structure are submitted in cassettes 1-5. Sections from the smaller specimen are submitted in cassettes 6-8. JCK/ARK Disclaimer: The following statement applies to all immunohistochemistry, in situ hybridization, molecular studies, and immunofluorescence testing. The use of one or more reagents in the above tests is regulated as an analyte specific reagent (ASR). These tests were developed and their performance characteristics determined by the clinical laboratories of [facility]. They have not been cleared by the US Food and Drug Administration (FDA). The FDA has determined that such clearance or approval is not necessary. All the above immunostains were performed on paraffin embedded tissue. Appropriate positive and negative controls (where applicable) were run in parallel with the patient's specimen; these controls showed expected staining pattern, with acceptable intensity of staining. Immunohistochemical assays have not been validated on decalcified tissues. Results should be interpreted with caution given the raised possibility of false negativity on decalcified specimens. Professional Performing Location: [address] [address]. DEPARTMENT OF PATHOLOGY AND LABORATORY MEDICINE [place], [place] [address] [id number] Normal [facility] No Panel Informationon 01-02 Total Complement (CH50) > 60 U/mL >41 [facility] Work Phone: Comment on above: Age Male Female 1 - 30 days Not Estab. Not Estab. 31 days - 6 months >32 >20 7 months - 17 years >39 >39 >17 years >41 >41 NOTE: The adult (>17 years) reference interval range is used to flag abnormals on this report. If the patient is 17 years old or younger, use the table above to determine out of range values.Performed at: [facility] [id number] [place], [place] [id number] Director: Jens Jenkins PhD, Phone: [phone] Serum or plasma complement C 4 measurement (mass/volume)on 01-02-2022 Complement C4 [Mass/Vol] 40 mg/dL 12-38 [facility] Work Phone: Erythrocyte sedimentation ra sean 12-27-2021 ESR (Bld) [Velocity] 20 mm/h 0-30 [facility] Work Phone: Serum or plasma complement C 3 measurement (mass/volume)on 12-27-2021 Complement C3 [Mass/Vol] 138 mg/dL 82-167 [facility] Work Phone: Comment on above: Performed at: [facility] [id number] [place], [place] [id number] Director: Jens Jenkins PhD, Phone: [phone] Cervical or vagninal specime n microscopic examination by cytology stain (reported ason 10-01-2021 Cytology report Cyto stain Doc (Cvx/Vag) Comment . [facility] Work Phone: Comment on above: The Pap smear is a s creening test designed to aid in thedetection of premalignant and malignant conditions of theuterine cervix. It is not a diagnostic procedure andshould not be used as the sole means of detecting cervicalcancer. Both false-positive and false-negative reports dooccur. Detection in cervical specim en of any of human papilloma virus (HPV) 16, 18, 31, 33,on 10-01-2021 HPV 16+18+31+33+35+39+45+5 1+52+56+58+59+66+68 DNA Probe+sig amp Ql (Cvx) Negative Negative [facility] Work Phone: Comment on above: This nucleic acid am plification test detects fourteen high- risk HPV types (16,18,31,33,35,39,45,51,52,56,58,59,66,68)without differentiation.Performed at: - [address] [id number] Director: Arin Marquez MD, Phone: [phone] at: =[facility] [id number] Director: Arin Marquez MD, Phone: [phone] Gram stain for investigation of transfusion reactionon 10-01-2021 Microscopic observation Gram stain Nom (Unsp spec) [facility] Work Phone: Laboratory - Cytologyon Global Category Manager Cyto stain Nom (Cvx/Vag) [ID] Comment . [facility] Work Phone: Comment on above: Peter Morris totechnologist Laboratory - Miscellaneous t estson 10-01-2021 Service comment (Unsp spec) [Interp] Comment . [facility] Work Phone: Comment on above: This liquid based Th inPrep(R) pap test was screened withthe use of an image guided system. Service comment (Unsp spec) [Interp] . . [facility] Work Phone: No Panel Informationon 10-01 Pathology report final diagnosis Narrative Comment . [facility] Work Phone: Comment on above: NEGATIVE FOR INTRAEP ITHELIAL LESION OR MALIGNANCY. POC Bacterial Vaginitis (Rapid) Negative [facility] Work Phone: Thin prep Papanicolaou smear with manual screeningon 10-01-2021 Genital Culture Presumptive C albicans [facility] Work Phone: Basophil percentageon 2021 Basophil percentage Not Reportable W [facility] Work Phone: Bilirubin [Mass/Vol] 0.60 mg/dL 0.20-1.00 [facility] Work Phone: Comment on above: For patients on eltr ombopag therapy, use of Dimension [place] TBIL is not recommended. Chloride [Moles/Vol] 105 mmol/L 98-107 [facility] Work Phone: Glucose [Mass/Vol] 82 mg/dL 74-106 [facility] Work Phone: Potassium [Moles/Vol] 3.7 mmol/L 3.5-5.1 [facility] Work Phone: Protein [Mass/Vol] 7.8 g/dL 6.4-8.2 [facility] Work Phone: Sodium [Moles/Vol] 138 mmol/L 136-145 [facility] Work Phone: Blood or tissue coagulation factor II targeted mutation analysis by molecular geneticon 08-15-2021 F2 gene targeted mutation analysis [employer] Nom (Bld/Tiss) Comment . [facility] Work Phone: Comment on above: Result: c.*97G>A - N ot DetectedThis result is not associated with an increased risk for venousthromboembolism. See Additional Clinical Information andComments.Additional Clinical Information:Venous thromboembolism is a multifactorial disease influenced bygenetic, environmental, and circumstantial risk factors. The c.*97G>Avariant in the F2 gene is a genetic risk factor for venousthromboembolism. Heterozygous carriers have a 2- to 4-fold increasedrisk for venous thromboembolism. Homozygotes for the c.*97G>A variantare rare. The annual risk of VTE in homozygotes has been reported ginette 1.1%/year. Individuals who carry both a c.*97G>A variant in theF2 gene and a c.1601G>A (p. [id number]) variant in the F5 gene(commonly referred to as Factor V Leiden) have an approximately 20-fold increased risk for venous thromboembolism. Risks are likely ginette even higher in more complex genotype combinations involving theF2 c.*97G>A variant and Factor V Leiden (PMID: 82572763). Additionalrisk factors include but are not limited to: deficiency of protein C,protein S, or antithrombin III, age, male sex, personal or familyhistory of deep vein thromboembolism, smoking, surgery, prolongedimmobilization, malignant neoplasm, tamoxifen treatment, raloxifenetreatment, oral contraceptive use, hormone replacement therapy, andpregnancy. Management of thrombotic risk and thrombotic events shouldfollow established guidelines and fit the clinical circumstance. Thisresult cannot predict the occurrence or recurrence of a thromboticevent.Comments:Genetic counseling is recommended to discuss the potential clinicalimplications of positive results, as well as recommendations fortesting family members.Genetic Coordinators are available for health care providers to discussresults at [phone]).Test Details:Variant analyzed: c.*97G>A, previously referred to as [id number]/Limitations:DNA analysis of the F2 gene (NM_000506.5) was performed by PCRamplification followed by restriction enzyme analysis. The diagnosticsensitivity is >99%. Results must be combined with clinicalinformation for the most accurate interpretation. Molecular-basedtesting is highly accurate, but as in any laboratory test, diagnosticerrors may occur. False positive or false negative results may occurfor reasons that include genetic variants, blood transfusions, bonemarrow transplantation, somatic or tissue-specific mosaicism,mislabeled samples, or erroneous representation of familyrelationships.This test was developed and its performance characteristics determinedby [employer]. It has not been cleared or approved by the Food and DrugAdministration.References:Angélica S, Jennie AK, Aman R, Patricia WW, Rohan ROMO; ACMG ProfessionalPractice and Guidelines Committee. Addendum: [place] [employer] consensus statement on factor V Leiden mutationtesting. [employer] Med. 2020Jun 29. doi: 10.1038/e43050-109-23783-y.PMID: 14116348.Devin RINCON. Prothrombin Thrombophilia. 2005Nov 18[Updated 2020May 31]. In: Elpidio MP, Shira HH, Jasvir RA, et al.,editors. Darvin(R) [Internet]. [place] ([place]): [facility]; 1393-9635. Available from:https://www.ncbi.nlm.nih.gov/books/HFC6445/Hao S, Jennie AK, Power X, Micheal B, Rasheed EB, Johana P, Darren CS;[employer] [facility] Crate Icer Committee. Venous thromboembolismlaboratory testing (factor V Leiden and factor II c.*97G>A),2018 update: a technical standard of the [place] [employer]Gen[employer] and Genomics (ACMG). Darsh[employer] Med. 2018 Mar;20(12):3856-7421.doi: 10.1038/q18915-457-4705-z. Epub 2017Jan 29. PMID: 86278473.Nelida Escobar, PhD, Jasmeet Huber, PhD, Teresa Jiang, PhD, Janice Wallis, PhD, FACMaurilio Rachel, PhD, Layo Us, PhD, Drew Story, PhD, FAC Dilute Carl's viper venom timeon 08-15-2021 dRVVT Coag (PPP) [Time] 34.4 s 0.0-47.0 [facility] Work Phone: Erythrocyte sedimentation ra sean 08-15-2021 ESR (Bld) [Velocity] 31 mm/h 0-30 [facility] Work Phone: Functional protein C measure menton 08-15-2021 Protein C actual/normal Chromogenic method (PPP) [Rel catalytic activity/Vol] 138 % 73-180 [facility] Work Phone: Comment on above: Performed at: [address], [place], [place] [id number] Director: Margie Ferrer MD, Phone: [phone] at: - [facility] [address] [id number] Director: Jens Jenkins PhD, Phone: [phone] at: TG - [facility] [id number] [place], [place] [id number] Director: Wero Villagomez [facility], Phone: [phone] Laboratory - Chemistry and C hemistry - challengeon 08-15-2021 ALP [Catalytic activity/Vol] 62 U/L 45-117 [facility] Work Phone: ALT [Catalytic activity/Vol] 22 U/L 13-56 [facility] Work Phone: [phone] CO2 [Moles/Vol] 25.0 mmol/L 21.0-32.0 [facility] Work Phone: Globulin (S) [Mass/Vol] 3.9 g/dL 2.2-4.2 [facility] Work Phone: Urea nitrogen/Creatinine [Mass ratio] 27.6 mg/mg 10-20 [facility] Work Phone: No Panel Informationon 08-15 Anti-Cardiolipin IgM Antibody < 9 MPL U/mL 0-12 [facility] Work Phone: Comment on above: Negative: <13 Indete rminate: 13 - 20 Low-Med Positive: >20 - 80 High Positive: >80 Anti-Nuclear Antibody Screen Negative Negative [facility] Work Phone: Comment on above: Performed at: [facility] [address] [id number] Director: Jens Jenkins PhD, Phone: [phone] [employer]rome[employer] B Antibody Not Reportable [facility] Work Phone: Estimated GFR (MDRD) Amer 120 mL/min >60 [facility] Work Phone: Comment on above: GFR Calc Estimated GFR (MDRD) Non-Af Amer 100 mL/min >60 [facility] Work Phone: Comment on above: Non- GFR Calc Factor V Leiden Mutation Comment . [facility] Work Phone: Comment on above: Result: c.1601G>A (p .[id number]) - Not DetectedThis result is not associated with an increased risk for venousthromboembolism. See Additional Clinical Information andComments.Additional Clinical Information:Venous thromboembolism is a multifactorial diseaseinfluenced by genetic, environmental, and circumstantialrisk factors. The c.1601G>A (p. Hed047Loq) variant in theF5 gene, commonly referred to as Factor V Leiden, is agenetic risk factor for venous thromboembolism.Heterozygous carriers of this variant have a 6- to 8-foldincreased risk for venous thromboembolism. Individualshomozygous for this variant (ie, with a copy of the varianton each chromosome) have an approximately 80-fold increasedrisk for venous thromboembolism. Individuals who carry jazmin c.*97G>A variant in the F2 gene and Factor V Leiden havean approximately 20-fold increased risk for venousthromboembolism. Risks are likely to be even higher in morecomplex genotype combinations involving the F2 c.*97G>Avariant and Factor V Leiden (PMID: 32766737). Additionalrisk factors include but are not limited to: deficiency ofprotein C, protein S, or antithrombin III, age, male sex,personal or family history of deep vein thromboembolism,smoking, surgery, prolonged immobilization, malignantneoplasm, tamoxifen treatment, raloxifene treatment, oralcontraceptive use, hormone replacement therapy, andpregnancy. Management of thrombotic risk and thromboticevents should follow established guidelines and fit theclinical circumstance. This result cannot predict theoccurrence or recurrence of a thrombotic event.Comment:Genetic counseling is recommended to discuss thepotential clinical implications of positive results, aswell as recommendations for testing family members.Genetic Coordinators are available for health careproviders to discuss results at [phone] Details:Variant Analyzed: c.1601G>A (p. [id number]), referred toas Factor V LeidenMethods/Limitations:DNA analysis of the F5 gene (NM_000130.5) was performedby PCR amplification followed by restriction enzymeanalysis. The diagnostic sensitivity is >99%. Results mustbe combined with clinical information for the most accurateinterpretation. Molecular-based testing is highly accurate,but as in any laboratory test, diagnostic errors may occur.False positive or false negative results may occur forreasons that include genetic variants, blood transfusions,bone marrow transplantation, somatic or tissue-specificmosaicism, mislabeled samples, or erroneous representationof family relationships.This test was developed and its performance characteristicsdetermined by [facility]. It has not been cleared orapproved by the Food and Drug Administration.References:Angélica Denton, Jennie THAKKAR, Aman R, Patricia WW, Rohan ROMO; ACMGProfessional Practice and Guidelines Committee. Addendum:[employer] [place] [employer] consensus statement onfactor V Leiden mutation testing. Darshana Med. 2020Jun 29.doi: 10.1038/a89004-876-04717-d. PMID: 18834398.Devin RINCON. Factor V Leiden Thrombophilia. 1998September 07[Updated 2017Apr 30]. In: Elpidio MP, Shira HH, Jasvir RA,et al., editors. Darvin(R) [Internet]. [place] ([place]):[facility], [place]; 6652-7321. Availablefrom: https://www.ncbi.nlm.nih.gov/books/XVF6086/Hao Denton, Jennie THAKKAR, Tono X, Micheal B, Rasheed EB, Johana P,Darren CS; ACMG Laboratory Crate Icer Committee.Venous thromboembolism laboratory testing (factor V Leidenand factor II c.*97G>A), 2018 update: a technical standardof the [place] [employer] and [employer](ACMG). Darshana Med. 2018 Mar;20(12):3585-2088. doi:10.1038/x28735-317-6951-z. Epub 2017Jan 29. PMID: 92420125.Nelida Escobar, PhD, Jasmeet Huber, PhD, Teresa Jiang, PhD, Janice Wallis, PhD, FEDERICA Rachel, PhD, Layo Us, PhD, Drew Story, PhD, FACMG NURSE HEAD Antibody Not Reportable [facility] Work Phone: Total Complement (CH50) > 60 U/mL >41 [facility] Work Phone: Comment on above: Age Male Female 1 - 30 days Not Estab. Not Estab. 31 days - 6 months >32 >20 7 months - 17 years >39 >39 >17 years >41 >41 NOTE: The adult (>17 years) reference interval range is used to flag abnormals on this report. If the patient is 17 years old or younger, use the table above to determine out of range values. Platelet poor plasma antithr ombin actual/normal ratio by chromogenic method (relativeon 08-15-2021 Antithrombin actual/normal Chromogenic method (PPP) [Rel catalytic activity/Vol] 107 % 75-135 [facility] Work Phone: Comment on above: Direct Xa inhibitor anticoagulants such as rivaroxaban,apixaban and edoxaban will lead to spuriously elevatedantithrombin activity levels possibly masking a deficiency. Platelet poor plasma antithr ombin antigen detection by immunoassayon 08-15-2021 Antithrombin Ag IA Ql (PPP) 87 % 72-124 [facility] Work Phone: Comment on above: This test was develo ped and its performance characteristicsdetermined by [facility]. It has not been cleared orapproved by the Food and Drug Administration. Platelet poor plasma protein S actual/normal ratio (relative time)on 08-15-2021 Protein S actual/normal Coag (PPP) [Relative time] 78 % 63-140 [facility] Work Phone: Comment on above: Protein S activity m ay be falsely increased (masking anabnormal, low result) in patients receiving direct Xainhibitor (e.g., rivaroxaban, apixaban, edoxaban) or adirect thrombin inhibitor (e.g., dabigatran) anticoagulanttreatment due to assay interference by these drugs. Protein C antigen assayon Protein C Ag actual/normal IA (PPP) [Relative mass conc] 121 % 60-150 [facility] Work Phone: Protein S measurement in ghislaine telet poor plasma by coagulation assay (units/volume)on 08-15-2021 Protein S Coag Qn (PPP) 92 % 60-150 [facility] Work Phone: Comment on above: This test was develo ped and its performance characteristicsdetermined by [facility]. It has not been cleared orapproved by the Food and Drug Administration. Protein S, freeon 08-15-2021 Protein S Free Ag IA Qn (PPP) 89 % 61-136 [facility] Work Phone: Serum DNA double strand anti body assay (units/volume)on 08-15-2021 DNA double strand Ab Qn (S) Not Reportable [facility] Work Phone: Serum Susan-1 antibody assay (u nits/volume)on 08-15-2021 Susan-1 extractable nuclear Ab Qn (S) Not Reportable [facility] Work Phone: Serum Scl-70 extractable nuc lear antibody assay (units/volume)on 08-15-2021 SCL-70 extractable nuclear Ab Qn (S) Not Reportable [facility] Work Phone: Serum Mendoza extractable nucl ear antibody detectionon 08-15-2021 Mendoza extractable nuclear Ab Ql (S) Not Reportable [facility] Work Phone: Serum cardiolipin IgG antibo dy assay by immunoassay (units/volume)on 08-15-2021 Cardiolipin IgG IA Qn (S) < 9 GPL U/mL 0-14 [facility] Work Phone: Comment on above: Negative: <15 Indete rminate: 15 - 20 Low-Med Positive: >20 - 80 High Positive: >80 Serum or plasma albumin waldo urement (mass/volume)on 08-15-2021 Albumin [Mass/Vol] 3.9 g/dL 3.2-5.0 [facility] Work Phone: Serum or plasma albumin/glob ulin mass ratioon 08-15-2021 Albumin/Globulin [Mass ratio] 1.0 {ratio} 0.9-2.4 [facility] Work Phone: Serum or plasma calcium waldo urement (mass/volume)on 08-15-2021 Calcium [Mass/Vol] 8.6 mg/dL 8.5-10.1 [facility] Work Phone: Serum or plasma cardiolipin IgA antibody assay (units/volume)on 08-15-2021 Cardiolipin IgA Qn < 9 APL U/mL 0-11 [facility] Work Phone: Comment on above: Negative: <12 Indete rminate: 12 - 20 Low-Med Positive: >20 - 80 High Positive: >80 Serum or plasma complement C 3 measurement (mass/volume)on 08-15-2021 Complement C3 [Mass/Vol] 170 mg/dL 82-167 [facility] Work Phone: Serum or plasma complement C 4 measurement (mass/volume)on 08-15-2021 Complement C4 [Mass/Vol] 48 mg/dL 12-38 [facility] Work Phone: Serum or plasma creatinine m easurement (mass/volume)on 08-15-2021 Creatinine [Mass/Vol] 0.69 mg/dL 0.55-1.02 [facility] Work Phone: Comment on above: The validity of the calculated GFR & GFRAA in patients over 70 years has not been determined. Clinical correlation is essential. Serum or plasma urea nitroge n measurement (mass/volume)on 08-15-2021 Urea nitrogen [Mass/Vol] 19 mg/dL 7-18 [facility] Work Phone: Thin prep Papanicolaou smear with manual screeningon 08-15-2021 Thin prep Papanicolaou smear with manual screening 12 U/L 15-37 [facility] Work Phone: Thin prep Papanicolaou smear with manual screening 8 5-15 [facility] Work Phone: Thin prep Papanicolaou smear with manual screening 35.8 sec 0.0-47.6 [facility] Work Phone: Thin prep Papanicolaou smear with manual screening 1.08 Ratio 0.00-1.34 [facility] Work Phone: Thin prep Papanicolaou smear with manual screening 34.8 sec 0.0-51.9 [facility] Work Phone: Thin prep Papanicolaou smear with manual screening Comment: . [facility] Work Phone: Comment on above: No lupus anticoagula nt was detected. Thrombin time in platelet po or plasmaon 08-15-2021 Thrombin time Coag (PPP) [Time] 16.5 sec 0.0-23.0 [facility] Work Phone: Glucose Glucometer (BldC) [M ass/Vol]on 07-30-2021 Glucose [Mass/Vol] 81 mg/dL 74-106 [facility] Work Phone: Comment on above: MANAGEMENT OF PATIEN T CARE PER NURSING PROTOCOL Basophil percentageon 2021 WBC (Bld) [#/Vol] 9.7 10*3/uL 4.4-11.0 [facility] Work Phone: Blood erythrocytes count (nu mber/volume)on 07-29-2021 RBC (Bld) [#/Vol] 4.52 10*6/uL 4.2-5.4 [facility] Work Phone: Blood hemoglobin measurement (mass/volume)on 07-29-2021 Hemoglobin (Bld) [Mass/Vol] 13.8 g/dL 12.0-15.0 [facility] Work Phone: Blood platelet mean volumeon 07-29-2021 Platelet mean volume (Bld) [Entitic vol] 10.3 fL 6.2-12.0 [facility] Work Phone: Determination of erythrocyte mean corpuscular volume (MCV)on 07-29-2021 MCV (RBC) [Entitic vol] 91.6 fL 81-99 [facility] Work Phone: Hematocrit Auto (Bld) [Volum e fraction]on 07-29-2021 Hematocrit (Bld) [Volume fraction] 41.4 % 37-47 [facility] Work Phone: [phone] Laboratory - Hematology and Cell countson 07-29-2021 Erythrocyte distribution width (RBC) [Entitic vol] 42.5 fL 35.1-43.9 [facility] Work Phone: [phone] Erythrocyte distribution width (RBC) [Ratio] 12.6 % 11.6-14.6 [facility] Work Phone: [phone] MCH (RBC) [Entitic mass] 30.5 pg 27.0-32.0 [facility] Work Phone: [phone] MCHC Auto (RBC) [Mass/Vol]on 07-29-2021 MCHC (RBC) [Mass/Vol] 33.3 g/dL 32-36 [facility] Work Phone: [phone] Platelets bldon 07-29-2021 Platelets (Bld) [#/Vol] 311 10*3/uL 150-450 [facility] Work Phone: [phone] Basophil percentageon 2021 Basophil percentage 0-5 SEEN /hpf [facility] Work Phone: [phone] Bilirubin Test strip Ql (U)o n 06-05-2021 Bilirubin Ql (U) Negative Negative [facility] Work Phone: Culture, urineon 06-05-2021 Bacteria identified Cx Nom (U) Positive [facility] Work Phone: [phone] Ketones Test strip Ql (U)on 06-05-2021 Ketones Ql (U) 5 mg/dl Negative [facility] Work Phone: [phone] Laboratory - Chemistry and C hemistry - challengeon 06-05-2021 Bilirubin Ql (U) Negative [facility] Work Phone: [phone] Glucose Ql (U) Negative [facility] Work Phone: [phone] Ketones Ql (U) Moderate (40+) [facility] Work Phone: [phone] pH (U) 5.0 [pH] [facility] Work Phone: Specific gravity (U) [Rel density] 1.015 [facility] Work Phone: Urobilinogen (U) [Mass/Vol] Negative [facility] Work Phone: Laboratory - Hematology and Cell countson 06-05-2021 Hemoglobin Ql (U) Negative [facility] Work Phone: Laboratory - Specimen inform ationon 06-05-2021 Clarity (U) Clear [facility] Work Phone: Color (U) ORALIA [facility] Work Phone: Laboratory - Urinalysison Nitrite Ql (U) Negative [facility] Work Phone: Protein Ql (U) Negative [facility] Work Phone: Mucus LM Ql (Urine sed)on Mucus Ql (Urine sed) 0 SEEN /hpf [facility] Work Phone: Nitrite Test strip Ql (U)on 06-05-2021 Nitrite Ql (U) Negative Negative [facility] Work Phone: No Panel Informationon 06-05 Urine Leukocytes Negatve [facility] Work Phone: Urine Non-Hemolyzed Blood Negative [facility] Work Phone: Protein Test strip Ql (U)on 06-05-2021 Protein Ql (U) Negative Negative [facility] Work Phone: Squamous epithelial cells de tection in urine sediment by light microscopyon 06-05-2021 Epithelial cells.squamous LM Ql (Urine sed) 5-10 SEEN /hpf [facility] Work Phone: Urine blood detectionon RBC Ql (U) Negative Negative [facility] Work Phone: RBC Ql (U) 0 SEEN /hpf [facility] Work Phone: Urine clarityon 06-05-2021 Clarity (U) Sl. Cloudy Clear [facility] Work Phone: Urine color determinationon 06-05-2021 Color (U) Yellow Yellow [facility] Work Phone: Urine glucose detectionon Glucose Ql (U) Normal mg/dl Normal [facility] Work Phone: Urine leukocyte esterase det ection by dipstickon 06-05-2021 Leukocyte esterase Test strip Ql (U) Negative Negative [facility] Work Phone: Urine pHon 06-05-2021 pH (U) 5.0 [pH] [facility] Work Phone: Urine sediment bacteria coun t by microscopy (number/high power field)on 06-05-2021 Bacteria LM.HPF (Urine sed) [#/Area] RARE /hpf None Seen [facility] Work Phone: Urine specific gravity measu rementon 06-05-2021 Specific gravity (U) [Rel density] 1.025 [facility] Work Phone: Urobilinogen Auto test strip Ql (U)on 06-05-2021 Urobilinogen Ql (U) Normal mg/dl Normal [facility] Work Phone: XR Lumbar spine 3 Viewson IMPRESSION: Spondylosis of the lumbar spine. Management Assistant: MARLON Transcribe Date/Time: Dec 04 2020 8:11A Dictated by : SANDER MEEKS MD This examination was interpreted and the report reviewed and electronically signed by: SANDER MEEKS MD on Dec 04 2020 8:13AM [facility] DIVISION OF RADIOLOGY * * *Final Report* * * DATE OF EXAM: Dec 03 2020 6:29PM WOX [id number] - XR LUMBAR 3V AP/LAT/L5-S1 / PROCEDURE REASON: Lumbar back pain * * * * Physician Interpretation * * * * Lumbar spine radiographs HISTORY: 40 years old Clinical information: Lumbar back pain pt states had a hysterectomy 12 weeks ago and then 6 weeks ago low back started to hurt all left sided posterior buttock radiates around to left groin and down the leg no inj TECHNIQUE: Images: XR LUMBAR 3V AP/LAT/L5-S1 Comparison: September 15, 2017 RESULT: Findings: For the purposes of this dictation the iliac crests are at the L4-5 level. Narrowing of the L4-5 and L5-S1 intervertebral disc spaces. Endplate osteophyte formation at multiple levels in the lumbar spine. No fracture. SI joints are intact. Paraspinous soft tissues are unremarkable in appearance. DIVISION OF RADIOLOGY Provider, Anny Ruggiero - 12/04/2020 * * *Final Report* * * DATE OF EXAM: Dec 03 2020 6:29PM WOX 5228 - XR LUMBAR 3V AP/LAT/L5-S1 / PROCEDURE REASON: Lumbar back pain * * * * Physician Interpretation * * * * Lumbar spine radiographs HISTORY: 40 years old Clinical information: Lumbar back pain pt states had a hysterectomy 12 weeks ago and then 6 weeks ago low back started to hurt all left sided posterior buttock radiates around to left groin and down the leg no inj TECHNIQUE: Images: XR LUMBAR 3V AP/LAT/L5-S1 Comparison: September 15, 2017 RESULT: Findings: For the purposes of this dictation the iliac crests are at the L4-5 level. Narrowing of the L4-5 and L5-S1 intervertebral disc spaces. Endplate osteophyte formation at multiple levels in the lumbar spine. No fracture. SI joints are intact. Paraspinous soft tissues are unremarkable in appearance. IMPRESSION IMPRESSION: Spondylosis of the lumbar spine. Management Assistant: MARLON Transcribe Date/Time: Dec 04 2020 8:11A Dictated by : SANDER MEEKS MD This examination was interpreted and the report reviewed and electronically signed by: SANDER MEEKS MD on Dec 04 2020 8:13AM EST [facility] XR Lumbar spine 3 ViewsOrder ed By: [facility] Provider on 12-04-2020 [facility] XR Lumbar spine 3 Viewson Radiology Study observation (narrative) [facility] XR Pelvis and Hip - left AP and Lateral frogon 02-13-2020 IMPRESSION: Unremark able study Management Assistant: MARLON Transcribe Date/Time: Feb 13 2020 11:09A Dictated by : RIVER ROCHA MD This examination was interpreted and the report reviewed and electronically signed by: RIVER ROCHA MD on Feb 13 2020 11:10AM [facility] DIVISION OF RADIOLOGY * * *Final Report* * * DATE OF EXAM: Feb 13 2020 11:04AM WOX 5351 - XR HIP 3V PELV+ AP/LAT LT / PROCEDURE REASON: Hip pain, acute, left * * * * Physician Interpretation * * * * HISTORY: Hip pain, acute, left Left lateral to anterior hip pain. no injury TECHNIQUE: AP pelvis and AP and frog lateral left hip COMPARISON: None RESULT: Bony and joint structures appear intact. DIV[facility]OLOGY [facility]/13/2020 * * *Final Report* * * DATE OF EXAM: Feb 13 2020 11:04AM WOX 5351 - XR HIP 3V PELV+ AP/LAT LT / PROCEDURE REASON: Hip pain, acute, left * * * * Physician Interpretation * * * * HISTORY: Hip pain, acute, left Left lateral to anterior hip pain. no injury TECHNIQUE: AP pelvis and AP and frog lateral left hip COMPARISON: None RESULT: Bony and joint structures appear intact. IMPRESSION IMPRESSION: Unremarkable study Management Assistant: MARLON Transcribe Date/Time: Feb 13 2020 11:09A Dictated by : RIVER ROCHA MD This examination was interpreted and the report reviewed and electronically signed by: RIVER ROCHA MD on Feb 13 2020 11:10AM [facility] Radiology Study observation (narrative) [facility] XR Pelvis and Hip - left AP and Lateral frogOrdered By: [facility] Provider on 02-13-2020 [facility] ALLIED HEALTHon 06-24-2019 ALLIED HEALTH HNO ID: [id number] Author: PRITI Aranda (Ct) Service: Radiology Author Type: Clinical [place] Picker Type: Allied Health Filed: 06/24/2019 4:05 PM Note Text: Radiology Service Progress Note DATE OF SERVICE: June 24, 2019 TIME: 4:05 PM PATIENT IDENTITY VERIFICATION COMPLETED USING TWO (2) STANDARD IDENTIFIERS: Name and Date of confirmed by patient verbally and Name and Date of confirmed by identification band. PATIENT GENDER DATA: Female. status: : No status: NO. PATIENT RELEVANT IMPLANT DATA REVIEWED: Not Applicable ALLERGIES: Reviewed and unchanged CONTRAST ALLERGY: NO. EXAM: CT -CONTRAST INDUCED NEPHROPATHY RISK FACTORS: Not applicable CREATININE: Creatinine Date Value Ref Range Status 06/24/2019 0.71 0.58 - 0.96 mg/dL Final 12/07/2018 0.65 0.58 - 0.96 mg/dL Final 09/07/2018 0.73 0.58 - 0.96 mg/dL Final eGFR-All Other Races Date Value Ref Range Status 06/24/2019 >60 . Final Comment: eGFR (Estimated GFR) Units of measure: [...] GFR. eGFR- Date Value Ref Range Status 06/24/2019 >60 Final P.O.C.T. RESULTS: N/A June 24, 2019 TREATMENT: N/A PERIPHERAL IV DATA: Inpatient - refer to LDA documentation RADIOLOGY DEPARTMENT: CT; Exam(s) Completed: Abdomen/Pelvis SIGNATURE: PRITI Aranda PATIENT NAME: Sammy Redd DATE: June 24, 2019 TIME: 4:05 PM Normal [facility] Beta HCG Quant, EDon 020 Beta HCG Quant, ED <0.6 Normal <5.0 [facility] Comment on above: Result Comment: NELLI TITATIVE HCG NORMAL RANGES Weeks of Gestation (Weeks Since LMP) 3 Weeks (5.8-71.2 mIU/mL) 4 Weeks (9.5-750 mIU/mL) 5 Weeks (217-7138 mIU/mL) 6 Weeks (158-72676 mIU/mL) 7 Weeks (3697-056683 mIU/mL) 8 Weeks (63362-602365 mIU/mL) 9 Weeks (78953-918130 mIU/mL) 10 Weeks (30383-140206 mIU/mL) 12 Weeks (13236-159553 mIU/mL) Referenced to 4th IS of [facility] Performed By: #### L IPA, DDMER, CBCDIF, CMP, HCGED ####[facility] [address] [id number] CBC and Differentialon 06-24 Abs Baso 0.03 k/uL Normal <0.11 [facility] Comment on above: Performed By: #### L IPA, DDMER, CBCDIF, CMP, HCGED #### [facility] Laboratory [address] [facility] [phone] Abs Graves 0.69 k/uL Normal <0.87 [facility] Comment on above: Performed By: #### L IPA, DDMER, CBCDIF, CMP, HCGED #### [facility] [address] [facility] [phone] Abs Neut 9.60 k/uL High 1.45-7.50 [facility] Comment on above: Performed By: #### L IPA, DDMER, CBCDIF, CMP, HCGED #### [facility] [address] [facility] [phone] Basophils/100 WBC (Bld) 0.2 % Normal [facility] Comment on above: Performed By: #### L IPA, DDMER, CBCDIF, CMP, HCGED #### [facility] [address] [facility] [phone] Eosinophils (Bld) [#/Vol] 0.09 10*3/uL Normal <0.46 [facility] Comment on above: Performed By: #### L IPA, DDMER, CBCDIF, CMP, HCGED #### [facility] [address] [facility] [phone] Eosinophils/100 WBC (Bld) 0.7 % Normal [facility] Comment on above: Performed By: #### L IPA, DDMER, CBCDIF, CMP, HCGED #### [facility] [address] [facility] [phone] Erythrocyte distribution width (RBC) [Ratio] 13.5 % Normal 11.5-15.0 [facility] Comment on above: Performed By: #### L IPA, DDMER, CBCDIF, CMP, HCGED #### [facility] [address] [facility] [phone] Hematocrit (Bld) [Volume fraction] 42.5 % Normal 36.0-46.0 [facility] Comment on above: Performed By: #### L IPA, DDMER, CBCDIF, CMP, HCGED #### [facility] [address] [place], [place] [phone] Hemoglobin (Bld) [Mass/Vol] 13.9 g/dL Normal 11.5-15.5 [facility] Comment on above: Performed By: #### L IPA, DDMER, CBCDIF, CMP, HCGED #### [facility] [address] [address] Lymphocytes (Bld) [#/Vol] 3.34 10*3/uL Normal 1.00-4.00 [facility] Comment on above: Performed By: #### L IPA, DDMER, CBCDIF, CMP, HCGED #### [facility] [address] [place] [address] Lymphocytes/100 WBC (Bld) 24.3 % Normal [facility] Comment on above: Performed By: #### L IPA, DDMER, CBCDIF, CMP, HCGED #### [facility] [address] [place] [address] MCH (RBC) [Entitic mass] 30.0 pG Normal 26.0-34.0 [facility] Comment on above: Performed By: #### L IPA, DDMER, CBCDIF, CMP, HCGED #### [facility] [address] [place] [address] MCHC (RBC) [Mass/Vol] 32.7 g/dL Normal 30.5-36.0 [facility] Comment on above: Performed By: #### L IPA, DDMER, CBCDIF, CMP, HCGED #### [facility] [address] [place] [address] MCV (RBC) [Entitic vol] 91.8 fL Normal 80.0-100.0 [facility] Comment on above: Performed By: #### L IPA, DDMER, CBCDIF, CMP, HCGED #### [facility] [address] [place], [place] [id number] Monocytes/100 WBC (Bld) 5.0 % Normal [facility] Comment on above: Performed By: #### L IPA, DDMER, CBCDIF, CMP, HCGED #### [facility] [address] [phone] Neutrophils/100 WBC (Bld) 69.8 % Normal [facility] Comment on above: Performed By: #### L IPA, DDMER, CBCDIF, CMP, HCGED #### [facility] [address] [phone] Platelet mean volume (Bld) [Entitic vol] 10.0 fL Normal 9.0-12.7 [facility] Comment on above: Performed By: #### L IPA, DDMER, CBCDIF, CMP, HCGED #### [facility] [address] Platelets (Bld) [#/Vol] 297 10*3/uL Normal 150-400 [facility] Comment on above: Performed By: #### L IPA, DDMER, CBCDIF, CMP, HCGED #### [facility] [address] RBC (Bld) [#/Vol] 4.63 10*6/uL Normal 3.90-5.20 [facility] Comment on above: Performed By: #### L IPA, DDMER, CBCDIF, CMP, HCGED #### [facility] [address] WBC (Bld) [#/Vol] 13.75 10*3/uL High 3.70-11.00 [facility] Comment on above: Performed By: #### L IPA, DDMER, CBCDIF, CMP, HCGED #### [facility] [address] ABD/PEL W IVCONon 020 CT ABD/PEL W IVCON * * *Final Report* * * DATE OF EXAM: Jun 24 2019 4:08PM [facility] [place] ABD/PEL W IVCON / PROCEDURE REASON: Infection, abdomen-pelvis * * * * Physician Interpretation * * * * EXAMINATION: CT ABDOMEN AND PELVIS WITH IV CONTRAST CLINICAL HISTORY: Infection, abdomen-pelvis right upper quadrant abdominal pain over the last couple days. TECHNIQUE: CT of the abdomen and pelvis was performed using standard technique, scanning from just above the dome of the diaphragm to the symphysis pubis. MQ: CTAP_3 Contrast: IV: 150 ml of Omnipaque 300 : ml of CT Radiation dose: Integrated Dose-length product (DLP) for this visit = 1152 mGy*cm. CT Dose Reduction Employed: Automated exposure control (AEC) COMPARISON: CT abdomen pelvis 06/16/2014 RESULT: CT ABDOMEN: Lower thorax: Unremarkable. Liver: No mass. Homogeneous texture. Fatty liver Biliary: No ductal dilatation is seen. . Postsurgical clips in the gallbladder fossa noted. Spleen: Spleen is unremarkable. Pancreas: No mass or duct dilation. Adrenals: Adrenal glands are unremarkable. Kidneys: Tiny nonobstructing calcification lower pole RIGHT kidney Subcentimeter low-density lesion in the LEFT kidney statistically most likely benign GI tract: No bowel dilatation is seen. No evidence of obstruction. Small fat-containing umbilical hernia Lymph nodes: No evidence of adenopathy. Mesentery/Peritoneum: No ascites or mass. Vasculature: No evidence of dilatation of the abdominal aorta. CT PELVIS: Pelvis: There is a 1.0 cm cystic structure in the RIGHT adnexa. There is somewhat 2.6 cm tubular shaped cystic structure superior lateral aspect of the uterus on the LEFT side. Uterus is again noted be markedly enlarged and very heterogeneous in texture. There is fluid density along the inferior lateral aspect of the uterus on the RIGHT side image 89 Bones/Soft Tissues: No significant findings identified. IMPRESSION: 1. Bilateral ovarian cysts. Pelvic ultrasound recommended 2. Enlarged uterus 3. Fatty liver 4. Tiny nonobstructing calcification lower pole RIGHT kidney Management Assistant: MARLON Transcribe Date/Time: Jun 24 2019 4:11P Dictated by : ANDRIA LEMOS DO This examination was interpreted and the report reviewed and electronically signed by: ANDRIA LEMOS DO on Jun 24 2019 4:18PM EST [id number] Normal [facility] Comp Metabolic Panelon 06-24 Albumin [Mass/Vol] 4.1 g/dL Normal 3.9-4.9 [facility] Comment on above: Performed By: #### L IPA, DDMER, CBCDIF, CMP, HCGED #### [facility] [address] [place] [address] ALP [Catalytic activity/Vol] 54 U/L Normal 34-123 [facility] Comment on above: Performed By: #### L IPA, DDMER, CBCDIF, CMP, HCGED #### [facility] [address] [facility] [phone] ALT [Catalytic activity/Vol] 14 U/L Normal 7-38 [facility] Comment on above: Performed By: #### L IPA, DDMER, CBCDIF, CMP, HCGED #### [facility]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 116 mm[Hg] Dee Mark NETWORKING SPECIALIST.PRINTING EQUIPMENT MECHANIC APPRENTICE Work Phone: [facility] 06-30-2022 08:35-0500 Body temperature 97.3 [degF] Jose Luis Toledo DO Work Phone: [facility] 06-30-2022 08:35-0500 Body weight 88 kg Jose Luis Toledo DO Work Phone: [facility] 06-30-2022 08:35-0500 Diastolic blood pressure 80 mm[Hg] Jose Luis Toledo DO Work Phone: [facility] 06-30-2022 08:35-0500 Heart rate 80 /min Jose Luis Toledo DO Work Phone: [facility] 06-30-2022 08:35-0500 Respiratory rate 16 /min Jose Luis Toledo DO Work Phone: [facility] 06-30-2022 08:35-0500 Systolic blood pressure 120 mm[Hg] Jose Luis Toledo DO Work Phone: [facility] 05-15-2022 09:10-0500 Body height 152.[address] Jose Luis Toledo Work Phone: [facility] 05-15-2022 09:08-0500 Body mass index (BMI) [Ratio] 38 kg/m2 Dr. Jose Luis Toledo Work Phone: [facility] 05-15-2022 09:08-0500 Body weight 88.[address] Jose Luis Toledo Work Phone: [facility] 05-15-2022 09:08-0500 Diastolic blood pressure 80 mm[Hg] Dr. Jose Luis Toledo Work Phone: [facility] 05-15-2022 09:08-0500 Systolic blood pressure 121 mm[Hg] Dr. Jose Luis Toledo Work Phone: [facility] 05-12-2022 10:07-0500 Body temperature 97 [degF] Jose Luis Toledo DO Work Phone: [facility] 05-12-2022 10:07-0500 Body weight 88.91 kg Jose Luis Toledo DO Work Phone: [facility] 05-12-2022 10:07-0500 Diastolic blood pressure 80 mm[Hg] Jose Luis Toledo DO Work Phone: [facility] 05-12-2022 10:07-0500 Heart rate 64 /min Jose Luis Jonesrison DO Work Phone: [facility] 05-12-2022 10:07-0500 Respiratory rate 16 /min Jose Luis Toledo DO Work Phone: [facility] 05-12-2022 10:07-0500 Systolic blood pressure 120 mm[Hg] Jose Luis Toledo DO Work Phone: [facility] 03-13-2022 08:54-0500 Body height 152.[address] Jose Luis Toledo Work Phone: [facility] Work Phone: 03-13-2022 08:52-0500 Body mass index (BMI) [Ratio] 37.3 kg/m2 Dr. Jose Luis Toledo Work Phone: [facility] 03-13-2022 08:52-0500 Body weight 86.[address] Jose Luis Toledo Work Phone: [facility] 03-13-2022 08:52-0500 Diastolic blood pressure 83 mm[Hg] Dr. Jose Luis Toledo Work Phone: [facility] 03-13-2022 08:52-0500 Systolic blood pressure 118 mm[Hg] Dr. Jose Luis Toledo Work Phone: [facility] 02-27-2022 11:58-0400 Body temperature 98.01 [degF] Dee Mark NETWORKING SPECIALIST.PRINTING EQUIPMENT MECHANIC APPRENTICE Work Phone: [facility] 02-27-2022 11:58-0400 Body weight 86.64 kg Dee Mark NETWORKING SPECIALIST.PRINTING EQUIPMENT MECHANIC APPRENTICE Work Phone: [facility] 02-27-2022 11:58-0400 Diastolic blood pressure 84 mm[Hg] Dee Mark NETWORKING SPECIALIST.PRINTING EQUIPMENT MECHANIC APPRENTICE Work Phone: [facility] 02-27-2022 11:58-0400 Heart rate 77 /min Dee Mark NETWORKING SPECIALIST.PRINTING EQUIPMENT MECHANIC APPRENTICE Work Phone: [facility] 02-27-2022 11:58-0400 Respiratory rate 16 /min Dee Mark NETWORKING SPECIALIST.PRINTING EQUIPMENT MECHANIC APPRENTICE Work Phone: [facility] 02-27-2022 11:58-0400 SaO2% (BldA) [Mass fraction] 100 % Dee Mark NETWORKING SPECIALIST.PRINTING EQUIPMENT MECHANIC APPRENTICE Work Phone: [facility] 02-27-2022 11:58-0400 Systolic blood pressure 128 mm[Hg] Dee Mark NETWORKING SPECIALIST.PRINTING EQUIPMENT MECHANIC APPRENTICE Work Phone: [facility] 02-05-2022 15:10-0400 Body weight 87.09 kg Jose Luis Toledo DO Work Phone: [facility] 02-05-2022 15:10-0400 Diastolic blood pressure 80 mm[Hg] Jose Luis Jonesrison DO Work Phone: [facility] 02-05-2022 15:10-0400 Heart rate 82 /min Jose Luis Jonesrison DO Work Phone: [facility] 02-05-2022 15:10-0400 Respiratory rate 16 /min Jose Luis Toledo DO Work Phone: [facility] 02-05-2022 15:10-0400 Systolic blood pressure 126 mm[Hg] Jose Luis Toledo DO Work Phone: [facility] 02-04-2022 14:52-0400 Body mass index (BMI) [Ratio] 37.9 kg/m2 Dr. Jose Luis Toledo Work Phone: 2(369)715-158619 [place] [address] 02-04-2022 14:52-0400 Body weight 88.[address] Jose Luis Toledo Work Phone: 7(624)377-983319 [place] [address] 02-04-2022 14:52-0400 Diastolic blood pressure 84 mm[Hg] Dr. Jose Luis Toledo Work Phone: 6(336)528-968419 [place] [address] 02-04-2022 14:52-0400 Systolic blood pressure 120 mm[Hg] Dr. Jose Luis Toledo Work Phone: 7(265)173-935719 [place] [address] 01-30-2022 09:30-0400 Heart rate 73 /min Dr. Jose Luis Toledo Work Phone: 7(055)160-033719 [place] [address] 01-30-2022 09:30-0400 Respiratory rate 16 /min Dr. Jose Luis Toledo Work Phone: 0(754)917-819119 [place] [address] 01-30-2022 08:22-0400 Body temperature 97.9 [degF] Dr. Jose Luis Toledo Work Phone: 8(159)[phone] [place] [address] 01-30-2022 08:22-0400 Diastolic blood pressure 111 mm[Hg] Dr. Jose Luis Toledo Work Phone: 6(597)[phone] [place] [address] 01-30-2022 08:22-0400 SaO2% (BldA) [Mass fraction] 100 % Dr. Jose Luis Toledo Work Phone: 9(593)328-236819 [place] [address] 01-30-2022 08:22-0400 Systolic blood pressure 161 mm[Hg] Dr. Jose Luis Toledo Work Phone: 5(388)851-427519 [place] [address] 01-30-2022 07:58-0400 Body height 152.[address] Jose Luis Toledo Work Phone: [facility] Work Phone: 01-30-2022 07:58-0400 Body mass index (BMI) [Ratio] 38.2 kg/m2 Dr. Jose Luis Toledo Work Phone: [facility] 01-30-2022 07:58-0400 Body weight 88.[address] Jose Luis Toledo Work Phone: [facility] 01-27-2022 16:00-0400 Diastolic blood pressure 74 mm[Hg] Deon Camacho MD Work Phone: [facility] 01-27-2022 16:00-0400 Heart rate 72 /min Deon Camacho MD Work Phone: [facility] 01-27-2022 16:00-0400 Respiratory rate 16 /min Deon Camacho MD Work Phone: [facility] 01-27-2022 16:00-0400 SaO2% (BldA) [Mass fraction] 97 % Deon Camacho MD Work Phone: [facility] 01-27-2022 16:00-0400 Systolic blood pressure 124 mm[Hg] Deon Camacho MD Work Phone: [facility] 01-27-2022 14:12-0400 Body temperature 96.8 [degF] Deon Camacho MD Work Phone: [facility] 01-27-2022 10:55-0400 Body height 152.4 cm Deon Camacho MD Work Phone: [facility] 01-27-2022 10:55-0400 Body mass index (BMI) [Ratio] 36.72 kg/m2 Deon Camacho MD Work Phone: [facility] 01-27-2022 10:55-0400 Body weight 85.28 kg Deon Camacho MD Work Phone: [facility] 01-22-2022 09:24-0400 Body height 152.4 cm Deon Camacho MD Work Phone: [facility] 01-22-2022 09:24-0400 Body mass index (BMI) [Ratio] 36.72 kg/m2 Deon Camacho MD Work Phone: [facility] 01-22-2022 09:24-0400 Body weight 85.28 kg Deon Camacho MD Work Phone: [facility] 01-16-2022 11:35-0400 Body weight 87.73 kg Dee Mark NETWORKING SPECIALIST.PRINTING EQUIPMENT MECHANIC APPRENTICE Work Phone: [facility] 01-16-2022 11:35-0400 Diastolic blood pressure 84 mm[Hg] Dee Mark NETWORKING SPECIALIST.PRINTING EQUIPMENT MECHANIC APPRENTICE Work Phone: [facility] 01-16-2022 11:35-0400 Heart rate 86 /min Dee Mark NETWORKING SPECIALIST.PRINTING EQUIPMENT MECHANIC APPRENTICE Work Phone: [facility] 01-16-2022 11:35-0400 Respiratory rate 16 /min Dee Mark NETWORKING SPECIALIST.PRINTING EQUIPMENT MECHANIC APPRENTICE Work Phone: [facility] 01-16-2022 11:35-0400 SaO2% (BldA) [Mass fraction] 100 % Dee Mark NETWORKING SPECIALIST.PRINTING EQUIPMENT MECHANIC APPRENTICE Work Phone: [facility] 01-16-2022 11:35-0400 Systolic blood pressure 122 mm[Hg] Dee Mark NETWORKING SPECIALIST.PRINTING EQUIPMENT MECHANIC APPRENTICE Work Phone: [facility] 11-04-2021 13:08-0400 Body weight 88.63 kg Brandi Rasmussen NETWORKING SPECIALIST.PRINTING EQUIPMENT MECHANIC APPRENTICE Work Phone: [facility] 11-04-2021 08:59-0400 Body height 152.[address] Jose Luis Toledo Work Phone: [facility] Work Phone: 11-04-2021 08:59-0400 Body mass index (BMI) [Ratio] 38.3 kg/m2 Dr. Jose Luis Toledo Work Phone: [facility] Work Phone: 11-04-2021 08:59-0400 Body temperature 97.8 [degF] Dr. Jose Luis Toledo Work Phone: [facility] Work Phone: 11-04-2021 08:59-0400 Body weight 89.[address] Jose Luis Toledo Work Phone: [facility] Work Phone: 11-04-2021 08:59-0400 Diastolic blood pressure 84 mm[Hg] Dr. Jose Luis Toledo Work Phone: [facility] Work Phone: 11-04-2021 08:59-0400 Heart rate 71 /min Dr. Jose Luis Toledo Work Phone: [facility] Work Phone: 11-04-2021 08:59-0400 Respiratory rate 16 /min Dr. Jose Luis Toledo Work Phone: [facility] Work Phone: 11-04-2021 08:59-0400 SaO2% (BldA) [Mass fraction] 96 % Dr. Jose Luis Toledo Work Phone: [facility] Work Phone: 11-04-2021 08:59-0400 Systolic blood pressure 130 mm[Hg] Dr. Jose Luis Toledo Work Phone: [facility] Work Phone: 11-04-2021 08:55-0400 Body mass index (BMI) [Ratio] 38.1 kg/m2 Dr. Jose Luis Toledo Work Phone: [facility] Work Phone: 11-04-2021 08:55-0400 Body weight 88.[address] Jose Luis Toledo Work Phone: [facility] Work Phone: 11-04-2021 08:55-0400 Diastolic blood pressure 70 mm[Hg] Dr. Jose Luis Toledo Work Phone: [facility] Work Phone: 11-04-2021 08:55-0400 Systolic blood pressure 108 mm[Hg] Dr. Jose Luis Toledo Work Phone: [facility] Work Phone: 10-03-2021 11:37-0400 Body weight 90.45 kg Dee Mark NETWORKING SPECIALIST.PRINTING EQUIPMENT MECHANIC APPRENTICE Work Phone: [facility] 10-03-2021 11:37-0400 Diastolic blood pressure 86 mm[Hg] Dee Mark NETWORKING SPECIALIST.PRINTING EQUIPMENT MECHANIC APPRENTICE Work Phone: [facility] 10-03-2021 11:37-0400 Heart rate 74 /min Dee Mark NETWORKING SPECIALIST.PRINTING EQUIPMENT MECHANIC APPRENTICE Work Phone: [facility] 10-03-2021 11:37-0400 Respiratory rate 16 /min Dee Mark NETWORKING SPECIALIST.PRINTING EQUIPMENT MECHANIC APPRENTICE Work Phone: [facility] 10-03-2021 11:37-0400 SaO2% (BldA) [Mass fraction] 100 % Dee Mark NETWORKING SPECIALIST.PRINTING EQUIPMENT MECHANIC APPRENTICE Work Phone: [facility] 10-03-2021 11:37-0400 Systolic blood pressure 122 mm[Hg] Dee Mark NETWORKING SPECIALIST.PRINTING EQUIPMENT MECHANIC APPRENTICE Work Phone: [facility] 10-01-2021 09:16-0400 Diastolic blood pressure 80 mm[Hg] Dr. Jose Luis Toledo Work Phone: [facility] Work Phone: 10-01-2021 09:16-0400 Systolic blood pressure 126 mm[Hg] Dr. Jose Luis Toledo Work Phone: [facility] Work Phone: 10-01-2021 09:16-0400 Diastolic blood pressure 80 mm[Hg] Dr. Jose Luis Toledo Work Phone: [facility] Work Phone: 10-01-2021 09:16-0400 Systolic blood pressure 126 mm[Hg] Dr. Jose Luis Toledo Work Phone: [facility] Work Phone: 10-01-2021 09:13-0400 Body mass index (BMI) [Ratio] 39 kg/m2 Dr. Jose Luis Toledo Work Phone: [facility] Work Phone: 10-01-2021 09:13-0400 Body weight 90.[address] Jose Luis Toledo Work Phone: [facility] Work Phone: 10-01-2021 09:13-0400 Body height 152.[address] Jose Luis Toledo Work Phone: [facility] Work Phone: 10-01-2021 09:13-0400 Body mass index (BMI) [Ratio] 39 kg/m2 Dr. Jose Luis Toledo Work Phone: [facility] Work Phone: 10-01-2021 09:13-0400 Body weight 90.[address] Jose Luis Toledo Work Phone: [facility] Work Phone: 09-26-2021 07:54-0400 Body mass index (BMI) [Ratio] 39.4 kg/m2 Dr. Jose Luis Toledo Work Phone: [facility] Work Phone: 09-26-2021 07:54-0400 Body temperature 98.6 [degF] Dr. Jose Luis Toledo Work Phone: [facility] Work Phone: 09-26-2021 07:54-0400 Body weight 91.[address] Jose Luis Toledo Work Phone: [facility] Work Phone: 09-26-2021 07:54-0400 Diastolic blood pressure 80 mm[Hg] Dr. Jose Luis Toledo Work Phone: [facility] Work Phone: 09-26-2021 07:54-0400 Heart rate 83 /min Dr. Jose Luis Toledo Work Phone: [facility] Work Phone: 09-26-2021 07:54-0400 Respiratory rate 16 /min Dr. Jose Luis Toledo Work Phone: [facility] Work Phone: 09-26-2021 07:54-0400 SaO2% (BldA) [Mass fraction] 98 % Dr. Jose Luis Toledo Work Phone: [facility] Work Phone: 09-26-2021 07:54-0400 Systolic blood pressure 126 mm[Hg] Dr. Jose Luis Toledo Work Phone: [facility] Work Phone: 09-26-2021 07:54-0400 Body height 152.[address] Jose Luis Toledo Work Phone: [facility] Work Phone: 09-26-2021 07:54-0400 Body mass index (BMI) [Ratio] 39.4 kg/m2 Dr. Jose Luis Toledo Work Phone: [facility] Work Phone: 09-26-2021 07:54-0400 Body temperature 98.6 [degF] Dr. Jose Luis Toledo Work Phone: [facility] Work Phone: 09-26-2021 07:54-0400 Body weight 91.[address] Joes Luis Toledo Work Phone: [facility] Work Phone: 09-26-2021 07:54-0400 Diastolic blood pressure 80 mm[Hg] Dr. Jose Luis Toledo Work Phone: [facility] Work Phone: 09-26-2021 07:54-0400 Heart rate 83 /min Dr. Jose Luis Toledo Work Phone: [facility] Work Phone: 09-26-2021 07:54-0400 Respiratory rate 16 /min Dr. Jose Luis Toledo Work Phone: [facility] Work Phone: 09-26-2021 07:54-0400 SaO2% (BldA) [Mass fraction] 98 % Dr. Jose Luis Toledo Work Phone: [facility] Work Phone: 09-26-2021 07:54-0400 Systolic blood pressure 126 mm[Hg] Dr. Jose Luis Toledo Work Phone: [facility] Work Phone: 08-19-2021 15:25-0400 Body mass index (BMI) [Ratio] 39.4 kg/m2 Dr. Jose Luis Toledo Work Phone: [facility] Work Phone: 08-19-2021 15:25-0400 Body weight 91.[address] Jose Luis Toledo Work Phone: [facility] Work Phone: 08-19-2021 15:25-0400 Diastolic blood pressure 80 mm[Hg] Dr. Jose Luis Toledo Work Phone: [facility] Work Phone: 08-19-2021 15:25-0400 Systolic blood pressure 106 mm[Hg] Dr. Jose Luis Toledo Work Phone: [facility] Work Phone: 08-19-2021 15:25-0400 Body height 152.[address] Jose Luis Toledo Work Phone: [facility] Work Phone: 08-19-2021 15:25-0400 Body mass index (BMI) [Ratio] 39.4 kg/m2 Dr. Jose Luis Toledo Work Phone: [facility] Work Phone: 08-19-2021 15:25-0400 Body weight 91.[address] Jose Luis Toledo Work Phone: [facility] Work Phone: 08-19-2021 15:25-0400 Diastolic blood pressure 80 mm[Hg] Dr. Jose Luis Toledo Work Phone: [facility] Work Phone: 08-19-2021 15:25-0400 Systolic blood pressure 106 mm[Hg] Dr. Jose Luis Toledo Work Phone: [facility] Work Phone: 08-15-2021 10:34-0400 Body weight 92.[address] Jose Luis Toledo Work Phone: [facility] Work Phone: 08-15-2021 10:34-0400 Diastolic blood pressure 20 mm[Hg] Dr. Jose Luis Toledo Work Phone: [facility] Work Phone: 08-15-2021 10:34-0400 Heart rate 101 /min Dr. Jose Luis Toledo Work Phone: [facility] Work Phone: 08-15-2021 10:34-0400 Respiratory rate 16 /min Dr. Jose Luis Toledo Work Phone: [facility] Work Phone: 08-15-2021 10:34-0400 SaO2% (BldA) [Mass fraction] 97 % Dr. Jose Luis Toledo Work Phone: [facility] Work Phone: 08-15-2021 10:34-0400 Systolic blood pressure 110 mm[Hg] Dr. Jose Luis Toledo Work Phone: [facility] Work Phone: 08-15-2021 10:34-0400 Body weight 92.[address] Jose Luis Toledo Work Phone: [facility] Work Phone: 08-15-2021 10:34-0400 Diastolic blood pressure 20 mm[Hg] Dr. Jose Luis Toledo Work Phone: [facility] Work Phone: 08-15-2021 10:34-0400 Heart rate 101 /min Dr. Jose Luis Toledo Work Phone: [facility] Work Phone: 08-15-2021 10:34-0400 Respiratory rate 16 /min Dr. Jose Luis Toledo Work Phone: [facility] Work Phone: 08-15-2021 10:34-0400 SaO2% (BldA) [Mass fraction] 97 % Dr. Jose Luis Toledo Work Phone: [facility] Work Phone: 08-15-2021 10:34-0400 Systolic blood pressure 110 mm[Hg] Dr. Jose Luis Toledo Work Phone: [facility] Work Phone: 08-15-2021 10:16-0400 Body height 152.[address] Jose Luis Toledo Work Phone: [facility] Work Phone: 08-12-2021 09:05-0400 Body weight 92.08 kg Dee Mark NETWORKING SPECIALIST.PRINTING EQUIPMENT MECHANIC APPRENTICE Work Phone: [facility] 08-12-2021 09:05-0400 Diastolic blood pressure 82 mm[Hg] Dee Mark NETWORKING SPECIALIST.PRINTING EQUIPMENT MECHANIC APPRENTICE Work Phone: [facility] 08-12-2021 09:05-0400 Heart rate 80 /min Dee Mark NETWORKING SPECIALIST.PRINTING EQUIPMENT MECHANIC APPRENTICE Work Phone: [facility] 08-12-2021 09:05-0400 Respiratory rate 16 /min Dee Mark NETWORKING SPECIALIST.PRINTING EQUIPMENT MECHANIC APPRENTICE Work Phone: [facility] 08-12-2021 09:05-0400 Systolic blood pressure 124 mm[Hg] Dee Flores PRINTING EQUIPMENT MECHANIC APPRENTICE Work Phone: [facility] 07-30-2021 19:00-0400 Body temperature 97.2 [degF] Dr. Jose Luis Toledo Work Phone: [facility] Work Phone: 07-30-2021 19:00-0400 Diastolic blood pressure 60 mm[Hg] Dr. Jose Luis Toledo Work Phone: [facility] Work Phone: 07-30-2021 19:00-0400 Heart rate 72 /min Dr. Jose Luis Toledo Work Phone: [facility] Work Phone: 07-30-2021 19:00-0400 Respiratory rate 16 /min Dr. Jose Luis Toledo Work Phone: [facility] Work Phone: 07-30-2021 19:00-0400 SaO2% (BldA) [Mass fraction] 92 % Dr. Jose Luis Toledo Work Phone: [facility] Work Phone: 07-30-2021 19:00-0400 Systolic blood pressure 104 mm[Hg] Dr. Jose Luis Toledo Work Phone: [facility] Work Phone: 07-30-2021 17:30-0400 Inhaled oxygen flow rate 2 L/min Dr. Jose Luis Toledo Work Phone: [facility] Work Phone: 07-30-2021 12:13-0400 Body height 152.[address] Jose Luis Toledo Work Phone: [facility] Work Phone: 07-30-2021 12:13-0400 Body mass index (BMI) [Ratio] 39.7 kg/m2 Dr. Jose Luis Toledo Work Phone: [facility] Work Phone: 07-30-2021 12:13-0400 Body weight 92.[address] Jose Luis Toledo Work Phone: [facility] Work Phone: 07-30-2021 09:15-0400 Body mass index (BMI) [Ratio] 40 kg/m2 Dr. Jose Luis Toledo Work Phone: [facility] Work Phone: 07-30-2021 09:15-0400 Body temperature 98.4 [degF] Dr. Jose Luis Toledo Work Phone: [facility] Work Phone: 07-30-2021 09:15-0400 Body weight 92.[address] Jose Luis Toledo Work Phone: [facility] Work Phone: 07-30-2021 09:15-0400 Diastolic blood pressure 77 mm[Hg] Dr. Jose Luis Toledo Work Phone: [facility] Work Phone: 07-30-2021 09:15-0400 Heart rate 83 /min Dr. Jose Luis Toledo Work Phone: [facility] Work Phone: 07-30-2021 09:15-0400 Respiratory rate 18 /min Dr. Jose Luis Toledo Work Phone: [facility] Work Phone: 07-30-2021 09:15-0400 SaO2% (BldA) [Mass fraction] 99 % Dr. Jose Luis Toledo Work Phone: [facility] Work Phone: 07-30-2021 09:15-0400 Systolic blood pressure 115 mm[Hg] Dr. Jose Luis Toledo Work Phone: [facility] Work Phone: 07-30-2021 09:15-0400 Body mass index (BMI) [Ratio] 40 kg/m2 Dr. Jose Luis Toledo Work Phone: [facility] Work Phone: 07-30-2021 09:15-0400 Body temperature 98.4 [degF] Dr. Jose Luis Toledo Work Phone: [facility] Work Phone: 07-30-2021 09:15-0400 Body weight 92.[address] Jose Luis Toledo Work Phone: [facility] Work Phone: 07-30-2021 09:15-0400 Diastolic blood pressure 77 mm[Hg] Dr. Jose Luis Toledo Work Phone: [facility] Work Phone: 07-30-2021 09:15-0400 Heart rate 83 /min Dr. Jose Luis Toledo Work Phone: [facility] Work Phone: 07-30-2021 09:15-0400 Respiratory rate 18 /min Dr. Jose Luis Toledo Work Phone: [facility] Work Phone: 07-30-2021 09:15-0400 SaO2% (BldA) [Mass fraction] 99 % Dr. Jose Luis Toledo Work Phone: [facility] Work Phone: 07-30-2021 09:15-0400 Systolic blood pressure 115 mm[Hg] Dr. Jose Luis Toledo Work Phone: [facility] Work Phone: 07-25-2021 15:45-0400 Body mass index (BMI) [Ratio] 40 kg/m2 Dr. Jose Luis Toledo Work Phone: [facility] Work Phone: 07-25-2021 15:45-0400 Body weight 92.[address] Jose Luis Toledo Work Phone: [facility] Work Phone: 07-25-2021 15:45-0400 Diastolic blood pressure 74 mm[Hg] Dr. Jose Luis Toledo Work Phone: [facility] Work Phone: 07-25-2021 15:45-0400 Systolic blood pressure 104 mm[Hg] Dr. Jose Luis Toledo Work Phone: [facility] Work Phone: 07-25-2021 15:45-0400 Body mass index (BMI) [Ratio] 40 kg/m2 Dr. Jose Luis Toledo Work Phone: [facility] Work Phone: 07-25-2021 15:45-0400 Body weight 92.[address] Jose Luis Toledo Work Phone: [facility] Work Phone: 07-25-2021 15:45-0400 Diastolic blood pressure 74 mm[Hg] Dr. Jose Luis Toledo Work Phone: [facility] Work Phone: 07-25-2021 15:45-0400 Systolic blood pressure 104 mm[Hg] Dr. Jose Luis Toledo Work Phone: [facility] Work Phone: 07-09-2021 09:25-0400 Body height 152.[address] Jose Luis Toledo Work Phone: [facility] Work Phone: 07-09-2021 09:25-0400 Body mass index (BMI) [Ratio] 40.8 kg/m2 Dr. Jose Luis Toledo Work Phone: [facility] Work Phone: 07-09-2021 09:25-0400 Body weight 94.[address] Jose Luis Toledo Work Phone: [facility] Work Phone: 07-09-2021 09:25-0400 Diastolic blood pressure 78 mm[Hg] Dr. Jose Luis Toledo Work Phone: [facility] Work Phone: 07-09-2021 09:25-0400 Systolic blood pressure 126 mm[Hg] Dr. Jose Luis Toledo Work Phone: [facility] Work Phone: 06-05-2021 09:59-0500 Body temperature 97.3 [degF] Dr. Jose Luis Toledo Work Phone: [facility] Work Phone: 06-05-2021 09:59-0500 Diastolic blood pressure 76 mm[Hg] Dr. Jose Luis Toledo Work Phone: [facility] Work Phone: 06-05-2021 09:59-0500 Heart rate 88 /min Dr. Jose Luis Toledo Work Phone: [facility] Work Phone: 06-05-2021 09:59-0500 Respiratory rate 16 /min Dr. Jose Luis Toledo Work Phone: [facility] Work Phone: 06-05-2021 09:59-0500 SaO2% (BldA) [Mass fraction] 99 % Dr. Jose Luis Toledo Work Phone: [facility] Work Phone: 06-05-2021 09:59-0500 Systolic blood pressure 124 mm[Hg] Dr. Jose Luis Toledo Work Phone: [facility] Work Phone: Encounters Encounter Date Encounter Type Care Provider Facility Start: 01-25-2025 ambulatory Juvencio Westfall y:[facility] Start: 01-09-2025 End: 01-09-2025 Telephone encounter Jose Luis Toledo DO Work Phone: [facility] [place] Start: 01-06-2025 End: 01-06-2025 ambulatory JOSE LUIS Aguilar:[facility] Start: 01-06-2025 End: 01-06-2025 Patient encounter procedure Jose Luis Toledo DO Work Phone: [facility] [place] Comment on above: Myalgia (Primary Dx) ; Obesity, Class II, BMI 35-39.9; IFG (impaired fasting glucose); Ptosis, left eyelid; Fatigue, unspecified type; Dyslipidemia; Infected sebaceous cyst; Situational insomnia; PRASHANTH (generalized anxiety disorder); Situational anxiety Start: 01-06-2025 End: 01-06-2025 ambulatory JOSE LUIS TOLEDO Facility:[facility] Start: 01-05-2025 End: 01-05-[address] Juvencio Oneal MD -[facility] Work Phone: Start: 01-05-2025 End: 01-05-[address] Jose Luis Toledo DO Work Phone: -[facility] Start: 01-05-2025 End: 01-05-2025 ambulatory Juvencio Oneal Facility:[facility] Start: 12-22-2024 End: 12-22-[address] Jose Luis Toledo DO Work Phone: -[facility] Start: 12-22-2024 End: 12-22-2024 Patient encounter procedure Beth MORALES -[facility] Start: 12-22-2024 End: 12-22-2024 Patient encounter procedure Beth MORALES -[facility] Work Phone: Start: 12-22-2024 End: 12-22-2024 Patient encounter status Beth MORALES [facility] Start: 12-22-2024 End: 12-22-[address] Jose Luis Toledo DO Work Phone: -[facility] Start: 12-21-2024 End: 12-21-2024 Patient encounter procedure Xi [facility] Work Phone: Start: 12-21-2024 End: 12-22-[address] Jose Luis Toledo DO Work Phone: -[facility] Start: 10-06-2024 End: 10-06-2024 Office outpatient visit 25 minutes 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 APRN.CNP Work Phone: [facility] Comment on above: Migraine without aur a, intractable, without status migrainosus (Primary Dx); Obesity, Class II, BMI 35-39.9; Anxiety disorder, unspecified type; PRASHANTH (generalized anxiety disorder); Situational anxiety; IFG (impaired fasting glucose); Insulin resistance Start: 10-06-2024 End: 10-06-2024 ambulatory SELF Facility:[facility] Start: 08-22-2024 End: 08-23-2024 Refill Jose Luis Toledo DO Work Phone: [facility] Comment on above: Refill Request Start: 08-10-2024 End: 08-11-2024 Follow-up encounter Jose Luis Toledo DO Work Phone: [facility] Start: 07-28-2024 End: 07-28-2024 ambulatory JOSE LUIS TOLEDO Facility:[facility] Start: 07-28-2024 End: 07-28-2024 Subsequent hospital visit by physician [facility] (I-Stat) Work Phone: Cat Scan Comment on above: SOB (shortness of br eath) [R06.02] Start: 07-25-2024 End: 07-25-[address] Jose Luis Toledo DO Work Phone: [facility] Work Phone: Start: 07-25-2024 End: 07-25-[address] Jose Luis Toledo DO -[facility] Work Phone: Start: 07-25-2024 End: 07-25-2024 ambulatory Jose Luis Toledo Facility:[facility] Start: 07-12-2024 End: 07-13-2024 Telephone encounter Jose Luis Toledo DO Work Phone: [facility] Comment on above: Patient Update; Laura ent Question Start: 07-11-2024 End: 07-12-2024 ambulatory Jose Luis L Toledo DO Work Phone: [facility] [place] Comment on above: Low kidney function due to pneumonia? Start: 07-08-2024 End: 09-07-2024 Follow-up encounter Dee Flores APRN.CNP Work Phone: [facility] [place] Start: 07-07-2024 End: 09-06-2024 Follow-up encounter Dee Flores APRN.CNP Work Phone: [facility] [place] Start: 07-07-2024 End: 07-07-2024 ambulatory JOSE LUIS L TOLEDO Facility:[facility] Start: 07-07-2024 End: 07-07-2024 Office outpatient visit 25 minutes Dee Flores APRN.CNP Work Phone: [facility] [place] Comment on above: Nausea (Primary Dx); SOB (shortness of breath); Wheeze; Bilateral flank pain Start: 07-07-2024 End: 07-07-2024 ambulatory JOSE LUIS L TOLEDO Facility:[facility] Start: 07-07-2024 End: 07-07-2024 Subsequent hospital visit by physician Jose Luis [facility] [place] Work Phone: Radiology Comment on above: Rhonchi at both lung bases [R09.89] Start: 07-05-2024 End: 07-05-2024 ambulatory JOSE LUIS L TOLEDO Facility:[facility] Start: 07-05-2024 End: 07-05-2024 Patient encounter procedure Jose Luis L Toledo DO Work Phone: [facility] Comment on above: Rhonchi at both lung bases (Primary Dx); Impaired concentration; Anxiety disorder, unspecified type; PRASHANTH (generalized anxiety disorder); Situational anxiety; Obesity, Class II, BMI 35-39.9; Encounter for screening mammogram for malignant neoplasm of breast; Community acquired pneumonia, unspecified laterality; SOB (shortness of breath); Wheeze Start: 07-02-2024 End: 07-04-2024 Refill Dee Flores APRN.CNP Work Phone: [facility] [place] Comment on above: Med Change Request Start: 07-01-2024 End: 07-01-2024 Follow-up encounter Dee Flores APRN.CNP Work Phone: [facility] [place] Comment on above: Influenza A (Primary Dx) Start: 06-30-2024 End: 08-30-2024 Follow-up encounter Dee Flores APRN.CNP Work Phone: [facility] [place] Start: 06-30-2024 End: 06-30-2024 Telephone encounter Dee Flores APRN.CNP Work Phone: [facility] [place] Comment on above: needs another diagno sis for nebulizer Start: 06-30-2024 End: 06-30-2024 Subsequent hospital visit by physician [facility] [place] Work Phone: Radiology Comment on above: SOB (shortness of br eath) [R06.02] Start: 06-30-2024 End: 06-30-2024 ambulatory JOSE LUIS L TOLEDO Facility:[facility] Start: 06-30-2024 End: 06-30-2024 Office outpatient visit 25 minutes Dee Flores APRN.PRINTING EQUIPMENT MECHANIC APPRENTICE Work Phone: [facility] Comment on above: SOB (shortness of br eath) (Primary Dx); Wheeze; Acute cough; Fever, unspecified fever cause; Aches; Chills; Other chest pain; Urinary frequency Start: 06-28-2024 End: 06-28-2024 ambulatory JOSE LUIS L TOLEDO Facility:[facility] Start: 06-28-2024 End: 06-28-2024 Office outpatient visit 15 minutes Demetris Bradford APRN.PRINTING EQUIPMENT MECHANIC APPRENTICE Work Phone: [facility] Comment on above: Bronchitis (Primary Dx); Viral URI with cough Start: 06-07-2024 End: 07-08-2024 ambulatory Jose Luis L Toledo DO Work Phone: [facility] [place] Start: 05-05-2024 End: 05-05-2024 Office outpatient visit 25 minutes 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 APRN.CNP Work Phone: [facility] [place] Comment on above: Acute pain of right shoulder (Primary Dx) Start: 05-05-2024 End: 05-05-2024 ambulatory BRANDI QUINTEROS Facility:[facility] Start: 04-11-2024 End: 04-11-2024 Telephone encounter Jose Luis Lim Toledo DO Work Phone: [facility] [place] Comment on above: Results Start: 04-07-2024 End: 04-08-2024 Telephone encounter 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 NETWORKING SPECIALIST.PRINTING EQUIPMENT MECHANIC APPRENTICE Work Phone: [facility] [place] Comment on above: Results Opened In Error Start: 04-05-2024 End: 04-05-2024 ambulatory JOSE LUIS L TOLEDO Facility:[facility] Start: 04-05-2024 End: 04-05-2024 ambulatory JOSE LUIS L TOLEDO Facility:[facility] Start: 04-05-2024 End: 04-05-2024 Subsequent hospital visit by physician [facility] Work Phone: Radiology Comment on above: Hypothyroidism, acqu ired [E03.9] Start: 04-04-2024 End: 04-04-2024 ambulatory JOSE LUIS L TOLEDO Facility:[facility] Start: 04-04-2024 End: 04-04-2024 Patient encounter procedure Jose Luis L Toledo DO Work Phone: [facility] [place] Comment on above: Hypothyroidism, acqu ired (Primary Dx); Impaired concentration; Anxiety disorder, unspecified type; PRASHANTH (generalized anxiety disorder); Situational anxiety; Obesity, Class II, BMI 35-39.9; Other migraine without status migrainosus, not intractable; Vitamin B12 deficiency; IFG (impaired fasting glucose); Thyroid nodule; Dyslipidemia; Dysmetabolic syndrome; Vitamin D deficiency; Hyperinsulinemia; ORTEZ (dyspnea on exertion) Start: 02-14-2024 End: 02-15-2024 Refill Dee Flores NETWORKING SPECIALIST.PRINTING EQUIPMENT MECHANIC APPRENTICE Work Phone: [facility] [place] Comment on above: Med Change Request Start: 02-09-2024 End: 02-09-2024 Telephone encounter Jose Luis L Toledo DO Work Phone: [facility] Start: 02-08-2024 End: 02-08-2024 ambulatory [facility] Facility:[facility] Start: 01-14-2024 End: 01-14-2024 ambulatory Jose Luis Toledo DO Work Phone: [facility] [place] Comment on above: LDN medication Start: 01-14-2024 End: 01-19-2024 Telephone encounter Jose Luis Toledo DO Work Phone: [facility] [place] Comment on above: Patient Question Start: 01-14-2024 End: 01-14-2024 Subsequent hospital visit by physician Priti [facility] (I-Stat) Work Phone: Cat Scan Comment on above: Endometriosis [N80.9 ] Start: 01-12-2024 End: 01-12-2024 Refill Dee Flores APRN.JOI Work Phone: [facility] Comment on above: Refill Request Medication Problem Start: 01-04-2024 End: 01-04-2024 Patient encounter procedure Jose Luis Toledo DO Work Phone: [facility] Comment on above: Anxiety disorder, un specified type (Primary Dx); Vitamin B12 deficiency; Impaired concentration; Obesity, Class II, BMI 35-39.9; Endometriosis; Right lower quadrant abdominal pain Start: 11-26-2023 End: 11-26-2023 Office outpatient visit 25 minutes Dee Flores APRN.PRINTING EQUIPMENT MECHANIC APPRENTICE Work Phone: [facility] Comment on above: Impaired concentrati on (Primary Dx); Anxiety disorder, unspecified type; PRASHANTH (generalized anxiety disorder); Arthralgia, unspecified joint; Myalgia; Situational anxiety Start: 11-17-2023 Telephone encounter Jose Luis hanna DO Work Phone: [facility] Comment on above: Patient Question Start: 11-16-2023 ambulatory Jose Luis Manjarrez irvin DO Work Phone: [facility] Comment on above: You said to message after I seen philosophy instructor for prescription Refill Request Start: 11-12-2023 Telephone encounter Jose Luis Raphael hanna DO Work Phone: [facility] [place] Start: 11-11-2023 ambulatory Dee William akhil NETWORKING SPECIALIST.PRINTING EQUIPMENT MECHANIC APPRENTICE Work Phone: [facility] [place] Comment on above: Low dose naltrexone prescription from [place] Start: 11-11-2023 End: 02-05-2024 Telephone encounter Xochitl TR[facility] Rad[facility] Comment on above: Appointment Start: 11-11-2023 End: 11-11-2023 Patient encounter procedure Naveen Mora MD Work Phone: Rheumatology Comment on above: Erythromelalgia (HCC ) (Primary Dx); Finger swelling; Family history of rheumatoid arthritis; Lichen sclerosus; Fibromyalgia Start: 10-06-2023 Refill Jose Luis bryan DO Work Phone: [facility] [place] Comment on above: Refill Request Start: 10-02-2023 Telephone encounter Perlita lopez NETWORKING SPECIALIST.PRINTING EQUIPMENT MECHANIC APPRENTICE Work Phone: Urology Start: 10-01-2023 Telephone encounter Nelida pink NETWORKING SPECIALIST.PRINTING EQUIPMENT MECHANIC APPRENTICE Work Phone: Urology Start: 09-29-2023 End: 09-29-2023 Patient encounter procedure Jose Luis Toledo DO Work Phone: [facility] [place] Comment on above: Vitamin B12 deficien cy (Primary Dx); Obesity, Class II, BMI 35-39.9; Impaired concentration; Anxiety disorder, unspecified type; Dermatofibroma; Finger swelling; Stiffness of hand joint, unspecified laterality Start: 09-29-2023 End: 09-29-2023 Subsequent hospital visit by physician [facility] (I-Stat) Work Phone: Cat Scan Comment on above: Calculus of kidney [ N20.0] Start: 09-22-2023 End: 09-22-2023 Subsequent hospital visit by physician Xr [facility] [place] [facility] Work Phone: Radiology Comment on above: Right ureteral stone [N20.1] Start: 09-22-2023 End: 09-22-2023 Patient encounter procedure Nelida Irving NETWORKING SPECIALIST.PRINTING EQUIPMENT MECHANIC APPRENTICE Work Phone: Urology Comment on above: Ureteral stone [N20. 1] (Primary Dx); Calculus of kidney; Acute cystitis without hematuria Start: 09-22-2023 End: 09-22-2023 ambulatory NELIDA IRVING Facility:[id number] Start: 09-17-2023 Telephone encounter Nelida pink NETWORKING SPECIALIST.PRINTING EQUIPMENT MECHANIC APPRENTICE Work Phone: Urology Comment on above: Orders Start: 09-17-2023 End: 09-17-2023 Subsequent hospital visit by physician Xr [facility] Work Phone: Radiology Comment on above: Right ureteral stone [N20.1] Start: 08-31-2023 End: 08-31-[address] Jose Luis Toledo Work Phone: [facility] Work Phone: Start: 08-31-2023 End: 08-31-[address] Jose Luis Toledo Work Phone: [facility] Work Phone: Start: 08-10-2023 Telephone encounter Dee Pollard APRN.PRINTING EQUIPMENT MECHANIC APPRENTICE Work Phone: [facility] Comment on above: Appointment Start: 08-10-2023 End: 08-10-2023 Subsequent hospital visit by physician [facility] Work Phone: Radiology Comment on above: Obesity, Class II, B MD 35-39.9 [E66.9] Start: 08-10-2023 End: 08-10-2023 Patient encounter procedure Dee Flores APRN.PRINTING EQUIPMENT MECHANIC APPRENTICE Work Phone: [facility] Comment on above: Arthralgia, unspecif ied joint (Primary Dx); Myalgia; Toe swelling; Finger swelling; Chronic midline low back pain without sciatica; Acute midline thoracic back pain; Hypothyroidism, acquired; Family history of osteoarthritis; Pain in both hands; Family history of rheumatoid arthritis; Obesity, Class II, BMI 35-39.9 Start: 08-05-2023 Refill Jose Luis bryan DO Work Phone: [facility] Comment on above: Refill Request Start: 07-06-2023 End: 07-06-2023 Patient encounter procedure Jose Luis Raphael Tre DO Work Phone: [facility] Comment on above: Anxiety disorder, un specified type (Primary Dx); Obesity, Class II, BMI 35-39.9; Impaired concentration Start: 07-01-2023 ambulatory Jose Luis bryan DO Work Phone: Internal Medicine [facility] Start: 06-08-2023 Refill Jose Luis bryan DO Work Phone: [facility] Comment on above: Refill Request Start: 05-26-2023 End: 05-26-[address] Jose Luis Toledo Work Phone: [facility] Work Phone: Start: 05-26-2023 End: 05-26-[address] Jose Luis Toledo Work Phone: [facility]Laboratory, Specimen Work Phone: Start: 05-26-2023 End: 05-26-[address] Jose Luis Toledo Work Phone: [facility] Work Phone: Start: 03-30-2023 Telephone encounter Nelida pink APRN.PRINTING EQUIPMENT MECHANIC APPRENTICE Work Phone: Urology Start: 03-26-2023 Telephone encounter Nelida pink APRN.PRINTING EQUIPMENT MECHANIC APPRENTICE Work Phone: Urology Comment on above: urine culture result s; Results Start: 03-24-2023 End: 03-24-2023 Patient encounter procedure Neliad Irving APRN.PRINTING EQUIPMENT MECHANIC APPRENTICE Work Phone: Urology Comment on above: Right ureteral stone (Primary Dx); Acute cystitis without hematuria; Right nephrolithiasis Start: 03-24-2023 End: 03-24-2023 ambulatory NELIDA IRVING Facility:[id number] Start: 03-11-2023 End: 03-11-2023 Subsequent hospital visit by physician [facility] Start: 03-11-2023 End: 03-11-2023 ambulatory XI BARAHONA Facility:[id number] Start: 03-10-2023 Patient encounter status Xr 1 [facility] Work Phone: Start: 03-03-2023 End: 03-03-2023 Patient encounter procedure Jose Luis Toledo DO Work Phone: [facility] Comment on above: Hypothyroidism, acqu ired (Primary Dx); Impaired concentration; Anxiety disorder, unspecified type; Dysmetabolic syndrome; Kidney stone; Obesity, Class II, BMI 35-39.9 Start: 02-27-2023 Telephone encounter Perlita lopez NETWORKING SPECIALIST.PRINTING EQUIPMENT MECHANIC APPRENTICE Work Phone: Urology Comment on above: Patient Update Start: 02-24-2023 End: 02-24-2023 Emergency department patient visit [facility] Work Phone: Start: 02-19-2023 Refill Perlita Cunningham NETWORKING SPECIALIST.PRINTING EQUIPMENT MECHANIC APPRENTICE Work Phone: Urology Comment on above: Refill Request Start: 02-18-2023 Telephone encounter Perlita lopez NETWORKING SPECIALIST.PRINTING EQUIPMENT MECHANIC APPRENTICE Work Phone: Urology Comment on above: Results Start: 02-16-2023 End: 02-16-2023 Subsequent hospital visit by physician [facility] Work Phone: Radiology Comment on above: Right ureteral stone [N20.1] Start: 02-14-2023 End: 02-14-2023 Emergency department patient visit [facility] Work Phone: Start: 02-12-2023 End: 02-12-2023 Patient encounter procedure Alfredo Ortega NETWORKING SPECIALIST.PRINTING EQUIPMENT MECHANIC APPRENTICE Work Phone: [facility] Comment on above: Procedure not alysia d out (Primary Dx) Start: 02-11-2023 Telephone encounter Vicky Crowley NETWORKING SPECIALIST.PRINTING EQUIPMENT MECHANIC APPRENTICE Work Phone: Urology Comment on above: Results; Patient Upd ate Start: 02-09-2023 End: 02-09-2023 ambulatory VICKY CROWLEY Facility:[facility] Start: 02-09-2023 End: 02-09-2023 Patient encounter procedure Vicky Crowley NETWORKING SPECIALIST.PRINTING EQUIPMENT MECHANIC APPRENTICE Work Phone: Urology Comment on above: Right ureteral stone (Primary Dx); Acute right flank pain; Gross hematuria; Kidney stone; Flank pain Start: 02-05-2023 ambulatory BRANDI RASMUSSEN Facilit y:[facility] Start: 02-05-2023 End: 02-05-2023 Subsequent hospital visit by physician [facility] Work Phone: [facility] Comment on above: Kidney stone [N20.0] Start: 02-02-2023 End: 02-02-2023 Patient encounter procedure 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 NETWORKING SPECIALIST.PRINTING EQUIPMENT MECHANIC APPRENTICE Work Phone: [facility] Comment on above: Gross hematuria (Yue musa Dx); Kidney stone; Impaired concentration; Flank pain Start: 01-29-2023 Refill Jose Luis bryan DO Work Phone: [facility] Comment on above: Refill Request Start: 12-29-2022 Refill Dee landaverde APRN.PRINTING EQUIPMENT MECHANIC APPRENTICE Work Phone: [facility] Comment on above: Refill Request Start: 12-02-2022 End: 12-02-2022 Patient encounter procedure Jose Luis Toledo DO Work Phone: [facility] Comment on above: Obesity, Class II, B MD 35-39.9 (Primary Dx); Impaired concentration; Anxiety disorder, unspecified type; Hypothyroidism, acquired Start: 10-24-2022 Refill Jose Luis bryan DO Work Phone: [facility] Comment on above: Refill Request Start: 10-13-2022 Telephone encounter Dee Pollard APRN.PRINTING EQUIPMENT MECHANIC APPRENTICE Work Phone: [address] [place] [address] Comment on above: FYI-No Action Needed Start: 08-28-2022 Refill Dee landaverde APRN.PRINTING EQUIPMENT MECHANIC APPRENTICE Work Phone: [facility] Comment on above: Refill Request Start: 08-19-2022 Refill Dee landaverde APRN.PRINTING EQUIPMENT MECHANIC APPRENTICE Work Phone: [facility] Comment on above: Med Change Request Start: 08-14-2022 End: 08-14-2022 Subsequent hospital visit by physician Xr [facility] Work Phone: Radiology Comment on above: Bronchitis [J40] Start: 08-14-2022 End: 08-14-2022 Patient encounter procedure Dee Flores APRN.PRINTING EQUIPMENT MECHANIC APPRENTICE Work Phone: [facility] Comment on above: Persistent cough (Pr imary Dx); Bronchitis; Hoarse; Vaginal lesion Start: 08-08-2022 Telephone encounter Nafisa Nicole APRN.PRINTING EQUIPMENT MECHANIC APPRENTICE Work Phone: [facility] Comment on above: Results Start: 08-07-2022 End: 08-07-2022 Subsequent hospital visit by physician Xr [facility] Work Phone: Radiology Comment on above: Acute cough [R05.1] Start: 08-07-2022 End: 08-07-2022 Patient encounter procedure Ry Chong APRN.PRINTING EQUIPMENT MECHANIC APPRENTICE Work Phone: [facility] Comment on above: Viral bronchitis (Pr imary Dx); Sore throat; Acute cough Start: 07-31-2022 End: 07-31-2022 Patient encounter procedure Dee Flores APRN.PRINTING EQUIPMENT MECHANIC APPRENTICE Work Phone: [facility] Comment on above: Obesity, Class III, BMI 40-49.9 (morbid obesity) ([facility]) (Primary Dx); Dyslipidemia; Hypothyroidism, acquired; Sacral pain; Chronic midline low back pain without sciatica Start: 07-23-2022 ambulatory Jose Luis bryan DO Work Phone: Internal Medicine [facility] Start: 07-03-2022 End: 07-03-[address] Jose Luis Toledo Work Phone: [facility] Work Phone: Start: 07-03-2022 End: 07-03-[address] Jose Luis Toledo Work Phone: [facility]Outpatient Breast Imaging Start: 06-30-2022 End: 06-30-2022 Patient encounter procedure Jose Luis Toledo DO Work Phone: [facility] Comment on above: Right nephrolithiasi s (Primary Dx); Impaired concentration; Anxiety disorder, unspecified type; Obesity, Class II, BMI 35-39.9; Magnesium deficiency; Dermatofibroma; Chronic SI joint pain; Sclerosis of sacroiliac joint Start: 06-24-2022 End: 06-24-[address] Jose Luis Toledo Work Phone: [facility] Ultrasound Start: 06-17-2022 Refill Dee landaverde APRN.CNP Work Phone: [facility] Comment on above: Refill Request Start: 05-22-2022 End: 05-22-[address] Jose Luis Toledo Work Phone: [facility] Work Phone: Start: 05-22-2022 End: 05-22-[address] Jose Luis Toledo Work Phone: [facility]Laboratory, OP Pavilion Start: 05-19-2022 Telephone encounter Brandi bryan NETWORKING SPECIALIST.PRINTING EQUIPMENT MECHANIC APPRENTICE Work Phone: [facility] Comment on above: Patient Question Lab Orders Results Start: 05-19-2022 End: 05-19-2022 Subsequent hospital visit by physician [facility] Work Phone: Radiology Comment on above: Hair loss [L65.9] Acute right flank pa in [R10.9] Sacral pain [M53.3] Start: 05-15-2022 End: 05-15-[address] Jose Luis Toledo Work Phone: [facility] Work Phone: Start: 05-15-2022 End: 05-15-[address] Jose Luis Toledo Work Phone: [facility] Start: 05-12-2022 End: 05-12-2022 Patient encounter procedure Jose Luis Toledo DO Work Phone: [facility] Comment on above: Acute right flank pa in (Primary Dx); History of renal stone; Hair loss; Thyroid nodule; Sacral pain; Chronic midline low back pain without sciatica; Impaired concentration; Adnexal cyst Start: 04-29-2022 End: 04-29-[address] Jose Luis Toledo Work Phone: [facility] Work Phone: Start: 04-29-2022 End: 04-29-[address] Jose Luis Toledo Work Phone: [facility] Start: 03-13-2022 End: 03-13-[address] Jose Luis Toledo Work Phone: [facility] Start: 03-03-2022 End: 03-03-2022 Subsequent hospital visit by physician [facility] Comment on above: Left lower quadrant abdominal pain [R10.32] Start: 02-27-2022 End: 02-27-2022 Patient encounter procedure Dee Flores APRN.CNP Work Phone: [facility] Comment on above: Abdominal pain, LLQ (Primary Dx); Hx of bilateral oophorectomy; Left lower quadrant abdominal pain; Bloody stool; Chronic midline low back pain without sciatica Start: 02-21-2022 ambulatory Jose Luis bryan DO Work Phone: [facility] Start: 02-21-2022 Follow-up encounter Jose Luis hanna DO Work Phone: [facility] Comment on above: After surgery follow up Start: 02-05-2022 End: 02-05-2022 Patient encounter procedure Jose Luis Toledo DO Work Phone: [facility] Comment on above: Premature menopause (Primary Dx); Surgical menopause; Neuritis; Acute midline low back pain without sciatica Start: 02-04-2022 End: 02-04-[address] Jose Luis Toledo Work Phone: [facility] Start: 01-30-2022 End: 01-30-2022 Emergency department patient visit Dr. Jos eLuis Toledo Work Phone: [facility]gency [facility] Start: 01-27-2022 End: 01-27-2022 ambulatory Jose Luis Toledo [facility] Start: 01-27-2022 End: 01-27-2022 Subsequent hospital visit by physician Deon Camacho MD Work Phone: [facility] General Surgery Comment on above: Post-op pain (Primar y Dx) Start: 01-22-2022 ambulatory [facility] Y[facility] Start: 01-22-2022 End: 01-22-2022 Subsequent hospital visit by physician Deon Camacho MD Work Phone: [facility] Pre-Admit Testing Comment on above: Arrived Start: 01-21-2022 End: 01-21-2022 ambulatory Shobha Perez APRN.PRINTING EQUIPMENT MECHANIC APPRENTICE Work Phone: [facility] Comment on above: COVID-19 (Primary Dx ) Start: 01-21-2022 End: 01-21-2022 Telemedicine consultation with patient Shobha Ana JOPRINTING EQUIPMENT MECHANIC APPRENTICE Work Phone: [facility] Start: 01-16-2022 End: 01-16-2022 Patient encounter procedure Dee Flores APRN.CNP Work Phone: [facility] Comment on above: Hair thinning (Prima ry Dx); Hair loss; Hypothyroidism, acquired; Fatigue, unspecified type; Stress; Body aches; Anxiety disorder, unspecified type; Impaired concentration Start: 01-13-2022 End: 01-13-[address] Jose Luis Toledo Work Phone: [facility] Work Phone: Start: 01-13-2022 End: 01-13-[address] Jose Luis Toledo Work Phone: [facility], [facility] Start: 01-02-2022 End: 01-02-[address] Jose Luis Toledo Work Phone: [facility] Work Phone: Start: 01-02-2022 End: 01-02-[address] Jose Luis Toledo Work Phone: [facility] Start: 01-02-2022 End: 01-02-[address] Jose Luis Toledo Work Phone: [facility] Start: 12-27-2021 End: 12-27-[address] Jose Luis Toledo Work Phone: [facility] Work Phone: Start: 12-27-2021 End: 12-27-[address] Jose Luis Toledo Work Phone: [facility] Start: 12-05-2021 End: 12-05-2021 ambulatory Dee Flores APRN.PRINTING EQUIPMENT MECHANIC APPRENTICE Work Phone: [facility] Comment on above: Impaired concentrati on (Primary Dx); Obesity, Class III, BMI 40-49.9 (morbid obesity) (HCC); Dyslipidemia; IFG (impaired fasting glucose); Pain in both hands Start: 12-05-2021 End: 12-05-2021 Telemedicine consultation with patient Dee Flores EMORY.PRINTING EQUIPMENT MECHANIC APPRENTICE [facility] Phone[facility] Start: 11-18-2021 End: 11-18-[address] Jose Luis Toledo Work Phone: [facility], [facility] Start: 11-04-2021 End: 11-04-2021 ambulatory Brandi Rasmussen APRN.PRINTING EQUIPMENT MECHANIC APPRENTICE Work Phone: [facility] Comment on above: Obesity, Class III, BMI 40-49.9 (morbid obesity) (HCC) (Primary Dx); Dyslipidemia; IFG (impaired fasting glucose); Impaired concentration Start: 11-04-2021 End: 11-04-2021 Telemedicine consultation with patient Brandi Rasmussen PRINTING EQUIPMENT MECHANIC APPRENTICE Work Phone: [facility] Start: 11-04-2021 End: 11-04-[address] Jose Luis Toledo Work Phone: [facility] Start: 10-03-2021 End: 10-03-2021 Patient encounter procedure Dee Flores APRN.PRINTING EQUIPMENT MECHANIC APPRENTICE Work Phone: [facility] Comment on above: Obesity, Class III, BMI 40-49.9 (morbid obesity) (HCC) (Primary Dx); Impaired concentration; Dyslipidemia Start: 10-01-2021 End: 10-01-[address] Jose Luis Toledo Work Phone: [facility] Start: 09-26-2021 End: 09-26-[address] Jose Luis Toledo Work Phone: [facility] Neurology Start: 09-24-2021 End: 09-24-[address] [facility] Start: 09-17-2021 End: 09-17-[address] Jose Luis Toledo Work Phone: [facility] Start: 08-19-2021 End: 08-19-[address] Jose Luis Toledo Work Phone: [facility] Start: 08-15-2021 End: 08-15-[address] Jose Luis Toledo Work Phone: [facility] Start: 08-12-2021 End: 08-12-2021 Patient encounter procedure Dee Flores APRN.PRINTING EQUIPMENT MECHANIC APPRENTICE Work Phone: [facility] Comment on above: Anxiety disorder, un specified type (Primary Dx); Impaired concentration; IFG (impaired fasting glucose); Hypothyroidism, acquired; Dyslipidemia; Obesity, Class II, BMI 35-39.9; Vitamin D deficiency; Hip pain Start: 07-30-2021 Non-patient / Non-visit Dr. Susan Toledo Work Phone: [facility] Start: 07-30-2021 End: 07-30-2021 Admission to same day surgery center Dr[facility] Jose Luis [facility] Start: 07-30-2021 End: 07-30-[address] Jose Luis Toledo Work Phone: [facility] Neurology Start: 07-25-2021 End: 07-25-[address] Jose Luis Toledo Work Phone: [facility] Start: 07-16-2021 End: 07-16-[address] Jose Luis Toledo Work Phone: [facility] Ultrasound Start: 07-09-2021 End: 07-09-[address] Jose Luis Toledo Work Phone: [facility] Start: 06-11-2021 End: 06-11-[address] Jose Luis Toledo Work Phone: [facility] Start: 06-07-2021 Telephone encounter Jose Luis hanna DO Work Phone: [facility] Comment on above: Mammogram order Start: 06-05-2021 End: 06-05-[address] Jose Luis Toledo Work Phone: [facility]Laboratory, Specimen Start: 06-05-2021 End: 06-05-[address] Jose Luis Toledo Work Phone: [facility] Start: 12-03-2020 End: 12-03-2020 Subsequent hospital visit by physician Xr [facility] Work Phone: Radiology Comment on above: Lumbar back pain [M5 4.5] Start: 02-13-2020 End: 02-13-2020 Subsequent hospital visit by physician Xr [facility] Work Phone: Radiology Comment on above: Hip pain, acute, lef t [M25.552] Start: 07-21-2017 End: 07-22-2017 Ambulatory BILL MARIA [facility] Start: 07-20-2017 End: 07-21-2017 Ambulatory PAPI RODGERS [facility] Procedures Date Procedure Procedure Detail Performing Clinician Start: 12-22-[address] Jacqueline Toledo DO Work Phone: Start: 12-22-2024 Hep[address] C antibody measurement Dr. Jose Luis Toledo DO Work Phone: Comment on above: Reactive: Presumptiv e evidence of antibodies to HCV. Follow CDC recommendations for supplemental testing.Non-Reactive: Antibodies to HCV were not detected; does not exclude the possibility of exposure to HCVReactive Results are presumptive evidence of antibodies to HCV. Follow CDC recommendations for supplemental testing.Order confirmation testing: HCV Quant by PCR testing - HCVPCR #[id number] Non Reactive: < 0.8 Equivocal: >/= 0.8 to < 1.0 Reactive: >/= 1.0The CDC requires that a reactive/equivocal HCV antibody result be sent out for confirmation. HCV Quant by PCR testing. Start: 12-22-2024 Serologic test for h erpes simplex Dr. Jose Luis Toledo DO Work Phone: Comment on above: Please note refere nce interval changeHSV-1 IgG testing performed using the [employer] HSV-1IgG assay. Start: 12-22-2024 Serologic test for syphilis Dr. Jose Luis Toledo DO Work Phone: Start: 07-28-2024 Ct thorax w/o contra st material Jose Luis Toledo DO Work Phone: Start: 07-25-2024 Screening mammography D r. Jose Luis Toledo DO Work Phone: Start: 07-07-2024 Radiologic exam ches t 2 views Jose Luis Toledo DO Work Phone: Start: 06-30-2024 Radiologic exam ches t 2 views Dee Flores NETWORKING SPECIALIST.PRINTING EQUIPMENT MECHANIC APPRENTICE Work Phone: Start: 06-30-2024 Urnls dip stick/tabl et rgnt auto w/o microscopy Dee Flores NETWORKING SPECIALIST.PRINTING EQUIPMENT MECHANIC APPRENTICE Work Phone: Start: 01-14-2024 Ct abdomen & pelvis w/contrast material Jose Luis Toledo DO Work Phone: Start: 09-22-2023 BLADDER SCAN Nelida Neto pink NETWORKING SPECIALIST.PRINTING EQUIPMENT MECHANIC APPRENTICE Work Phone: Start: 09-22-2023 Urnls dip stick/tabl et rgnt auto w/o microscopy Nelida Maria Fernanda NETWORKING SPECIALIST.PRINTING EQUIPMENT MECHANIC APPRENTICE Work Phone: Start: 09-17-2023 Radiologic exam abdo men 1 view Nelida Maria Fernanda NETWORKING SPECIALIST.PRINTING EQUIPMENT MECHANIC APPRENTICE Work Phone: Start: 08-10-2023 Radex spine lumbosac ral 2/3 views Dee Echavarriaman NETWORKING SPECIALIST.PRINTING EQUIPMENT MECHANIC APPRENTICE Work Phone: Start: 05-26-[address] Omar Toledo Work Phone: Start: 05-26-2023 Investigation of transfusion reaction Dr. Jose Luis Toledo Work Phone: Start: 03-24-2023 Urnls dip stick/tabl et rgnt auto w/o microscopy Nelida Sawyermabel NETWORKING SPECIALIST.PRINTING EQUIPMENT MECHANIC APPRENTICE Work Phone: Start: 03-11-2023 Radiologic exam abdo men 1 view Xi Barahona MD Work Phone: Start: 02-24-2023 CT of abdomen and pe lvis without contrast Start: 02-16-2023 Us retroperitoneal r eal time w/image complete Vicky Crowley NETWORKING SPECIALIST.PRINTING EQUIPMENT MECHANIC APPRENTICE Work Phone: Start: 02-16-2023 Radiologic exam abdo men 1 view Vicky Crowley NETWORKING SPECIALIST.PRINTING EQUIPMENT MECHANIC APPRENTICE Work Phone: Start: 02-14-2023 Urine culture Start: 02-09-2023 Urnls dip stick/tabl et rgnt auto w/o microscopy Vicky Crowley NETWORKING SPECIALIST.PRINTING EQUIPMENT MECHANIC APPRENTICE Work Phone: Start: 02-02-2023 Culture bacterial quanttative colony count urine 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 NETWORKING SPECIALIST.PRINTING EQUIPMENT MECHANIC APPRENTICE Work Phone: Start: 02-02-2023 Urnls dip stick/tabl et rgnt auto w/o microscopy 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 NETWORKING SPECIALIST.PRINTING EQUIPMENT MECHANIC APPRENTICE Work Phone: Start: 08-14-2022 Radiologic exam ches t 2 views Dee Flores NETWORKING SPECIALIST.PRINTING EQUIPMENT MECHANIC APPRENTICE Work Phone: Start: 08-07-2022 COVID WITH FLUA+B, ROUTINE Ry Chong NETWORKING SPECIALIST.PRINTING EQUIPMENT MECHANIC APPRENTICE Work Phone: Start: 08-07-2022 Radiologic exam ches t 2 views Ry Chong NETWORKING SPECIALIST.PRINTING EQUIPMENT MECHANIC APPRENTICE Work Phone: Start: 08-07-2022 STREP A MOLECULAR (POC) Stoney Prieto MD Work Phone: Start: 07-03-2022 Screening mammography Louis Toledo Work Phone: Start: 06-24-[address] Yovani Toledo Work Phone: Start: 06-24-[address] Jose Luis Toledo Work Phone: Start: 05-19-2022 Us soft tissue head & neck real time imge docm Jose Luis Toledo DO Work Phone: Start: 05-19-2022 End: 05-19-2022 Radex spine lumbosacral 2/3 views Jose Luis Toledo DO Work Phone: Start: 05-19-2022 Ct abdomen & pelvis w/o contrast material Jose Luis Toledo DO Work Phone: Start: 04-29-[address] Yovani Toledo Work Phone: Start: 04-29-[address] Jose Luis Toledo Work Phone: Start: 03-03-2022 Ct abdomen & pelvis w/contrast material Dee Flores PRINTING EQUIPMENT MECHANIC APPRENTICE Work Phone: Start: 01-30-2022 Computed tomography of abdomen and pelvis with intravenous contrast Dr. Jose Luis Toledo Work Phone: Start: 01-27-2022 OPERATIVE REPORT Physic hammad Generic Start: 01-27-2022 HANSA STUDIO 3 Ra Camacho MD Work Phone: Start: 01-27-2022 Ecg routine ecg w/le ast 12 lds w/i&r Gab Sullivan MD Work Phone: Start: 01-13-[address] Jose Luis Toledo Work Phone: Start: 11-18-[address] Yovani Toledo Work Phone: Start: 11-18-[address] Jose Luis Toledo Work Phone: Start: 10-01-2021 Cytopathology proced ure, preparation of smear, genital source Dr. Jose Luis Toledo Work Phone: Start: 10-01-2021 Investigation of transfusion reaction Dr. Jose Luis Toledo Work Phone: Start: 09-24-2021 CT angiography of head Dr. Jose Luis Toledo Work Phone: Start: 09-17-2021 MRI of brain with contrast Dr. Jose Luis Toledo Work Phone: Start: 07-30-2021 Right salpingo-oophorectomy Dr. Jose Luis Toledo Work Phone: Start: 07-29-2021 End: 07-29-[address] Jose Luis Toledo Work Phone: Start: 07-16-[address] Yovani Toledo Work Phone: Start: 07-16-[address] Jose Luis Toledo Work Phone: Start: 06-11-2021 End: 06-11-[address] Jose Luis cohen Work Phone: Start: 06-05-[address] Jacqueline Toledo Work Phone: Start: 01-07-2021 Adult depression screening assessment Dee Flores APRN.PRINTING EQUIPMENT MECHANIC APPRENTICE Work Phone: Start: 12-03-2020 [facility]x spine lumbosac ral 2/3 views Shobha Perez NETWORKING SPECIALIST.PRINTING EQUIPMENT MECHANIC APPRENTICE Work Phone: Start: 02-13-2020 [facility] hip unilateral with pelvis 2-3 views Ry Chong NETWORKING SPECIALIST.PRINTING EQUIPMENT MECHANIC APPRENTICE Work Phone: Cytopathology proced ure, preparation of smear, genital source Dr. Jose Luis Toledo Work Phone: H/O: bilateral oophorectomy Hx of bilateral oophorectomy Dee Flores NETWORKING SPECIALIST.PRINTING EQUIPMENT MECHANIC APPRENTICE Work Phone: H/O: hysterectomy History of tot al vaginal hysterectomy (TVH) Dr. Jose Luis Toledo Work Phone: H/O: hysterectomy S/P vaginal hysterectomy Dr. Jose Luis Toledo Work Phone: H/O: surgery H/O bilateral salpingectomy Dr. Jose Luis Toledo Work Phone: H/O: surgery H/O ovarian cystectomy Dr. Yovani Toledo Work Phone: Comment on above: laparoscopic right, extensive scar tissue, bowel adhesions, adhesioloysis H/O: surgery S/P oophorectomy Dr. Jose Luis Toledo Work Phone: Comment on above: s/p bso, has had lef t cystic lesion present in adnexa, improved, repeat us ordered again and tumor markers ordered. fsh high and estradiol low. suspect pelvic fluid collection not ovarian remnant H/O: surgery S/P oophorectomy Dr. Jose Luis Toledo Work Phone: H/O: surgery S/P oophorectomy Dr. Jose Luis Toledo Work Phone: Investigation of transfusion reaction Dr. Jose Luis Toledo Work Phone: Viral antigen assay Dr. Sj Toledo Work Phone: Plan of Treatment Date Care Activity Detail Author Start: 01-06-2026 Annual PCP Team Chronic Disease Visit Annual PCP Team Chronic Disease Visit [facility] Start: 10-06-2025 Annual PCP Team Chronic Disease Visit Annual PCP Team Chronic Disease Visit [facility] Start: 07-07-2025 Annual PCP Team Chronic Disease Visit Annual PCP Team Chronic Disease Visit [facility] Start: 07-05-2025 Annual PCP Team Chronic Disease Visit Annual PCP Team Chronic Disease Visit [facility] Start: 07-03-2025 End: 07-03-2025 Patient encounter procedure 07/03/2025 8:20 AM EDT Office Visit [facility] [address] [place], [place] [id number] Jose Luis Toledo DO [address] [place] [address] 3 month follow up [facility] Comment on above: 3 month follow up Start: 06-30-2025 Annual PCP Team Chronic Disease Visit Annual PCP Team Chronic Disease Visit [facility] Start: 06-25-2025 HPV TESTING HPV TESTING [facility] Start: 06-25-2025 PAP TESTING PAP TESTING [facility] Start: 06-25-2025 Screening for malignant neoplasm of cervix [facility] Start: 05-05-2025 Annual PCP Team Chronic Disease Visit Annual PCP Team Chronic Disease Visit [facility] Start: 04-10-2025 End: 07-10-2025 Cobalamin (Vitamin B12) [Mass/volume] in Serum or Plasma VITAMIN B12 Lab Routine IFG (impaired fasting glucose) Expected: 04/10/2025, Expires: 07/10/2025 [facility] Comment on above: Expected: 04/10/2025, Expires: 6 Start: 04-06-2025 End: 04-06-2025 Patient encounter procedure 04/06/2025 8:20 AM EST Office Visit Family [facility] [address] [place] [address] Dee Flores APRN.PRINTING EQUIPMENT MECHANIC APPRENTICE [address] [place] [address] 3 month follow up [facility] Comment on above: 3 month follow up Start: 04-04-2025 Annual PCP Team Chronic Disease Visit Annual PCP Team Chronic Disease Visit [facility] Start: 04-04-2025 Covid-19 Vaccine () Covid-19 Vaccine () [facility] Comment on above: Postponed from 12/27/2023 (Declined at t his time) Start: 01-09-2025 End: 04-10-2025 Comprehensive metabolic 2000 panel - Serum or Plasma COMPREHENSIVE METABOLIC PANEL Lab Routine IFG (impaired fasting glucose) Expected: 01/09/2025, Expires: 04/10/2025 [facility] Work Phone: Comment on above: Expected: 01/09/2025, Expires: Start: 01-06-2025 End: 04-07-2025 25-hydroxyvitamin D3 [Mass/volume] in Serum or Plasma [facility] Comment on above: Expected: 01/06/2025, Expires: 5 Start: 01-06-2025 End: 04-07-2025 Ascorbate [Mass/volume] in Serum or Plasma [facility] Comment on above: Expected: 01/06/2025, Expires: Start: 01-06-2025 End: 04-07-2025 Cobalamin (Vitamin B12) [Mass/volume] in Serum or Plasma [facility] Comment on above: Expected: 01/06/2025, Expires: Start: 01-06-2025 End: 04-07-2025 Comprehensive metabolic 2000 panel - Serum or Plasma [facility] Comment on above: Expected: 01/06/2025, Expires: Start: 01-06-2025 End: 04-07-2025 Cortisol [Mass/volume] in Serum or Plasma [facility] Comment on above: Expected: 01/06/2025, Expires: Start: 01-06-2025 End: 04-07-2025 Hemoglobin A1c in Blood [facility] Comment on above: Expected: 01/06/2025, Expires: Start: 01-06-2025 End: 04-07-2025 Lipid 1996 panel - Serum or Plasma [facility] Comment on above: Expected: 01/06/2025, Expires: Start: 01-06-2025 End: 04-07-2025 Magnesium [Mass/volume] in Serum or Plasma [facility] Comment on above: Expected: 01/06/2025, Expires: Start: 01-06-2025 End: 04-07-2025 Thyrotropin [Units/volume] in Serum or Plasma [facility] Work Phone: Comment on above: Expected: 01/06/2025, Expires: Start: 01-06-2025 End: 04-07-2025 Thyroxine (T4) free [Mass/volume] in Serum or Plasma [facility] Comment on above: Expected: 01/06/2025, Expires: Start: 01-06-2025 End: 04-07-2025 Triiodothyronine (T3) Free [Mass/volume] in Serum or Plasma [facility] Comment on above: Expected: 01/06/2025, Expires: Start: 01-06-2025 End: 01-06-2025 Patient encounter procedure 01/06/2025 9:40 AM EDT Office Visit Family [facility] Jacob[facility] [address] [place] [address] Jose Luis Toledo DO [address] [facility] [place] [address] 3 month follow up Family Brittny [facility] Comment on above: 3 month follow up Start: 01-03-2025 Annual PCP Team Chronic Disease Visit Annual PCP Team Chronic Disease Visit [facility] Start: 12-26-2024 Influenza vaccination [facility] Start: 12-22-2024 Hepatitis C antibody measurement [facility] Start: 12-22-2024 Serologic test for syphilis [facility] Start: 12-22-2024 [facility] Start: 11-25-2024 Annual PCP Team Chronic Disease Visit Annual PCP Team Chronic Disease Visit [facility] Start: 10-24-2024 Influenza vaccination Influenza Vaccine (#1) [facility] Julio Césari tan Comment on above: Postponed from 12/27/2023 (Declined at t his time) Start: 10-06-2024 End: 10-06-2024 Patient encounter procedure Family Medic [facility]an Jacobsen Comment on above: 3 month follow up 3 month follow up (R /S from [facility] on 10/06, no availability with PCP dyad) 3 mo followup Start: 09-28-2024 Annual PCP Team Chronic Disease Visit Annual PCP Team Chronic Disease Visit [facility] Start: 08-09-2024 Annual PCP Team Chronic Disease Visit Annual PCP Team Chronic Disease Visit [facility] Start: 07-07-2024 End: 10-06-2024 CBC panel - Blood by Automated count [facility] Work Phone: Comment on above: Expected: 07/07/2024, Expires: Start: 07-07-2024 End: 10-06-2024 Comprehensive metabolic 2000 panel - Serum or Plasma [facility] Comment on above: Expected: 07/07/2024, Expires: Start: 07-05-2024 Annual PCP Team Chronic Disease Visit Annual PCP Team Chronic Disease Visit [facility] Start: 07-05-2024 Covid-19 Vaccine ( season) Covid-19 Vaccine ( season) [facility] Comment on above: Postponed from 12/26/2022 (Declined at t his time) Start: 07-05-2024 End: 07-05-2024 Patient encounter procedure 07/05/2024 11:00 AM EDT Office Visit [facility] [address] [facility] [place] [address] Jose Luis Toledo DO [address] [place] [address] 3 month follow up [facility] Comment on above: 3 month follow up Start: 07-03-2024 End: 10-02-2024 Cobalamin (Vitamin B12) [Mass/volume] in Serum or Plasma VITAMIN B12 Lab Routine Vitamin B12 deficiency Expected: 07/03/2024, Expires: 10/02/2024 [facility] Comment on above: Expected: 07/03/2024, Expires: Start: 04-06-2024 Annual PCP Team Chronic Disease Visit Annual PCP Team Chronic Disease Visit [facility] Start: 04-05-2024 End: 04-05-2024 Patient encounter procedure 04/05/2024 8:50 AM EST Office Visit Cardiology [address] [place] [address] Dyslipidemia [E78.5]; ORTEZ (dyspnea on exertion) [R06.09] Cardiology Comment on above: Dyslipidemia [E78.5]; ORETZ (dyspnea on ex ertion) [R06.09] Start: 04-05-2024 End: 04-05-2024 Patient encounter procedure 04/05/2024 7:45 AM EST Appointment Radiology [address] [place] [address] Hypothyroidism, acquired [E03.9]; Thyroid nodule [E04.1] Radiology Comment on above: Hypothyroidism, acquired [E03.9]; Thyroi d nodule [E04.1] Start: 04-04-2024 End: 07-04-2024 25-hydroxyvitamin D3 [Mass/volume] in Serum or Plasma [facility] Comment on above: Expected: 04/04/2024, Expires: Start: 04-04-2024 End: 07-04-2024 CBC W Auto Differential panel - Blood [facility] Comment on above: Expected: 04/04/2024, Expires: Start: 04-04-2024 End: 07-04-2024 Comprehensive metabolic 2000 panel - Serum or Plasma [facility] Comment on above: Expected: 04/04/2024, Expires: Start: 04-04-2024 End: 07-04-2024 Hemoglobin A1c in Blood [facility] Work Phone: Comment on above: Expected: 04/04/2024, Expires: Start: 04-04-2024 End: 07-04-2024 Insulin [Units/volume] in Serum or Plasma [facility] Comment on above: Expected: 04/04/2024, Expires: Start: 04-04-2024 End: 07-04-2024 Thyrotropin [Units/volume] in Serum or Plasma [facility] Comment on above: Expected: 04/04/2024, Expires: Start: 04-04-2024 End: 07-04-2024 Thyroxine (T4) free [Mass/volume] in Serum or Plasma [facility] Comment on above: Expected: 04/04/2024, Expires: Start: 04-04-2024 End: 07-04-2024 Triiodothyronine (T3) Free [Mass/volume] in Serum or Plasma [facility] Comment on above: Expected: 04/04/2024, Expires: Start: 04-04-2024 End: 04-04-2024 Patient encounter procedure 04/04/2024 10:00 AM EST Office Visit Family Brittny Jacobsen [address] [place] [address] Jose Luis Toledo, [address] [place] [address] 3 month follow up Family Brittny Jacobsen Comment on above: 3 month follow up Start: 03-03-2024 Annual PCP Team Chronic Disease Visit Annual PCP Team Chronic Disease Visit [facility] Start: 02-03-2024 Annual PCP Team Chronic Disease Visit Annual PCP Team Chronic Disease Visit [facility] Start: 01-14-2024 End: 01-14-2024 Patient encounter procedure Cat Scan Comment on above: Endometriosis [N80.9] Start: 01-04-2024 End: 01-04-2024 Patient encounter procedure 01/04/2024 2:20 PM EDT Office Visit [facility] [place] [address] [place], [place] [id number] Jose Luis Toledo DO [address] [place], [place] [id number] 3 month follow up [facility] Comment on above: 3 month follow up Start: 12-27-2023 Covid-19 Vaccine ( season) Covid-19 Vaccine () [facility] Start: 12-27-2023 Covid-19 Vaccine ( season) Covid-19 Vaccine () [facility] Start: 12-27-2023 Influenza vaccination [facility] Start: 12-03-2023 ANNUAL PCP TEAM CHRONIC DISEASE VISIT ANNUAL PCP TEAM CHRONIC DISEASE VISIT [facility] Start: 11-11-2023 End: 11-11-2023 Patient encounter procedure 11/11/2023 12:00 PM EDT Office Visit Rheumatology [address] [place] [address] [place] [address] [place] [address] Arthralgia, unspecified joint [M25.50] Rheumatology Comment on above: Arthralgia, unspecified joint [M25.50] Start: 10-25-2023 Influenza vaccination Influenza Vaccine (#1) [facility] Raymundo hare Comment on above: Postponed from 12/26/2022 (Declined at t his time) Start: 10-12-2023 End: 10-12-2023 Patient encounter procedure 10/12/2023 11:20 AM EDT Office Visit [facility] [address] [place], [place] [address] Jose Luis Toledo DO [address] [place], [place] [id number] 3 month follow up Family Brittny Jacobsen Comment on above: 3 month follow up Start: 10-02-2023 End: 10-02-2023 Patient encounter procedure Cat Scan Comment on above: Calculus of kidney [N20.0] Start: 09-29-2023 End: 09-29-2023 Patient encounter procedure 09/29/2023 3:20 PM EDT Office Visit [facility] [place] [address] [place] [address] Jose Luis Toledo DO [address] [place] [address] Weight check Family [facility] Comment on above: Weight check Start: 09-22-2023 End: 04-23-2024 XR ABDOMEN 1V SUPINE XR ABDOMEN 1V SUPINE Radiology Routine Right ureteral stone Expected: 09/22/2023 (Approximate), Expires: 04/23/2024 [facility] Work Phone: Comment on above: Expected: 09/22/2023 (Approximate), Expi res: 04/23/2024 Start: 09-22-2023 Subsequent hospital visit by physician 09/22/2023 11:10 AM EDT Hospital Encounter Radiology [address] [place] [address] Right ureteral stone [N20.1] Radiology Comment on above: Right ureteral stone [N20.1] Start: 09-22-2023 End: 09-22-2023 Patient encounter procedure 09/22/2023 9:30 AM EDT Office Visit Urology [address] [facility] [place] [address] Nelida Irving APRN.PRINTING EQUIPMENT MECHANIC APPRENTICE [address] [facility] [address] [place] [address] 6 month f/u Urology Comment on above: 6 month f/u Start: 08-31-2023 Acetylcholine receptor blocking Ab [Presence] in Serum [facility] Start: 08-31-2023 Acetylcholine receptor modulating antibody measurement [facility] Start: 08-15-2023 ANNUAL PCP TEAM CHRONIC DISEASE VISIT ANNUAL PCP TEAM CHRONIC DISEASE VISIT [facility] Start: 08-10-2023 End: 11-09-2023 Borrelia burgdorferi IgG and IgM panel - Serum [facility] Work Phone: Comment on above: Expected: 08/10/2023, Expires: 4 Start: 08-10-2023 End: 11-09-2023 Cyclic citrullinated peptide IgG Ab [Units/volume] in Serum or Plasma [facility] Work Phone: Comment on above: Expected: 08/10/2023, Expires: Start: 08-10-2023 End: 11-09-2023 Extractable nuclear Ab panel - Serum [facility] Work Phone: Comment on above: Expected: 08/10/2023, Expires: 4 Start: 08-10-2023 End: 11-09-2023 Insulin [Units/volume] in Serum or Plasma [facility] Work Phone: Comment on above: Expected: 08/10/2023, Expires: Start: 08-10-2023 End: 11-09-2023 Nuclear Ab [Presence] in Serum by Immunoassay [facility] Work Phone: Comment on above: Expected: 08/10/2023, Expires: 4 Start: 08-01-2023 ANNUAL PCP TEAM CHRONIC DISEASE VISIT ANNUAL PCP TEAM CHRONIC DISEASE VISIT [facility] Start: 07-01-2023 ANNUAL PCP TEAM CHRONIC DISEASE VISIT ANNUAL PCP TEAM CHRONIC DISEASE VISIT [facility] Start: 05-12-2023 ANNUAL PCP TEAM CHRONIC DISEASE VISIT ANNUAL PCP TEAM CHRONIC DISEASE VISIT [facility] Start: 05-12-2023 COVID-19 VACCINE (#1) COVID-19 VACCINE (#1) [facility] Comment on above: Postponed from 1980 (Declined at t his time) Start: 04-27-2023 Behavioral Health Screening Behavioral Health Screening [facility] Start: 04-27-2023 Depression Assessment Depression Assessment [facility] Start: 03-03-2023 End: 06-02-2023 Comprehensive metabolic 2000 panel - Serum or Plasma COMP METABOLIC PANEL Lab Routine Dysmetabolic syndrome Expected: 03/03/2023, Expires: 06/02/2023 [facility] Work Phone: Comment on above: Expected: 03/03/2023, Expires: 4 Start: 03-03-2023 End: 06-02-2023 Hemoglobin A1c in Blood HGB A1C Lab Routine Dysmetabolic syndrome Expected: 03/03/2023, Expires: 06/02/2023 [facility] Work Phone: Comment on above: Expected: 03/03/2023, Expires: Start: 03-03-2023 End: 06-02-2023 Insulin [Units/volume] in Serum or Plasma INSULIN ASSAY BLOOD Lab Routine Dysmetabolic syndrome Expected: 03/03/2023, Expires: 06/02/2023 [facility] Work Phone: Comment on above: Expected: 03/03/2023, Expires: Start: 03-03-2023 End: 06-02-2023 Thyrotropin [Units/volume] in Serum or Plasma TSH BLD Lab Routine Hypothyroidism, acquired Expected: 03/03/2023, Expires: 06/02/2023 [facility] Work Phone: Comment on above: Expected: 03/03/2023, Expires: 4 Start: 03-03-2023 End: 06-02-2023 Thyroxine (T4) free [Mass/volume] in Serum or Plasma T4 FREE/FREE THYROX Lab Routine Hypothyroidism, acquired Expected: 03/03/2023, Expires: 06/02/2023 [facility] Work Phone: Comment on above: Expected: 03/03/2023, Expires: 4 Start: 03-03-2023 End: 06-02-2023 Triiodothyronine (T3) Free [Mass/volume] in Serum or Plasma T3 FREE BLD Lab Routine Hypothyroidism, acquired Expected: 03/03/2023, Expires: 06/02/2023 [facility] Work Phone: Comment on above: Expected: 03/03/2023, Expires: 4 Start: 02-27-2023 ANNUAL PCP TEAM CHRONIC DISEASE VISIT ANNUAL PCP TEAM CHRONIC DISEASE VISIT [facility] Start: 02-24-2023 [facility] Start: 02-14-2023 Bacteria identified in Urine by Culture Urine Culture [facility] Start: 02-14-2023 End: 02-14-2023 [facility] Start: 02-05-2023 ANNUAL PCP TEAM CHRONIC DISEASE VISIT ANNUAL PCP TEAM CHRONIC DISEASE VISIT [facility] Start: 01-21-2023 ANNUAL PCP TEAM CHRONIC DISEASE VISIT ANNUAL PCP TEAM CHRONIC DISEASE VISIT [facility] Start: 01-16-2023 ANNUAL PCP TEAM CHRONIC DISEASE VISIT ANNUAL PCP TEAM CHRONIC DISEASE VISIT [facility] Start: 12-26-2022 Influenza vaccination [facility] Start: 12-05-2022 ANNUAL PCP TEAM CHRONIC DISEASE VISIT ANNUAL PCP TEAM CHRONIC DISEASE VISIT [facility] Start: 12-05-2022 HEPATITIS C SCREENING HEPATITIS C SCREENING [facility] Comment on above: Postponed from 01/16/1998 (Declined at t his time) Start: 12-05-2022 HIV SCREENING HIV SCREENING [facility] Comment on above: Postponed from 01/16/1998 (Declined at t his time) Start: 11-04-2022 ANNUAL PCP TEAM CHRONIC DISEASE VISIT ANNUAL PCP TEAM CHRONIC DISEASE VISIT [facility] Start: 10-24-2022 Influenza vaccination INFLUENZA (#1) [facility] Comment on above: Postponed from 12/26/2021 (Declined at t his time) Start: 10-03-2022 ANNUAL PCP TEAM CHRONIC DISEASE VISIT ANNUAL PCP TEAM CHRONIC DISEASE VISIT [facility] Start: 08-12-2022 ANNUAL PCP TEAM CHRONIC DISEASE VISIT ANNUAL PCP TEAM CHRONIC DISEASE VISIT [facility] Start: 06-11-2022 Mammography [facility] Start: 06-11-2022 Screening for malignant neoplasm of breast Mammogram Screening [facility] Start: 05-19-2022 End: 07-19-2022 25-hydroxyvitamin D3 [Mass/volume] in Serum or Plasma [facility] Work Phone: Comment on above: Expected: 05/19/2022, Expires: 3 Start: 05-19-2022 End: 07-19-2022 Bacteria identified in Urine by Culture [facility] Work Phone: Comment on above: Expected: 05/19/2022, Expires: 3 Start: 05-19-2022 End: 07-19-2022 Cobalamin (Vitamin B12) [Mass/volume] in Serum or Plasma [facility] Work Phone: Comment on above: Expected: 05/19/2022, Expires: 3 Start: 05-19-2022 End: 07-19-2022 Folate [Mass/volume] in Serum or Plasma [facility] Work Phone: Comment on above: Expected: 05/19/2022, Expires: 3 Start: 05-19-2022 End: 07-19-2022 Pyridoxine [Mass/volume] in Serum or Plasma [facility] Work Phone: Comment on above: Expected: 05/19/2022, Expires: 3 Start: 05-19-2022 End: 07-19-2022 RBC FOLATE RBC FOLATE Lab Routine Hair loss Expected: 05/19/2022, Expires: 07/19/2022 [facility] Work Phone: Comment on above: Expected: 05/19/2022, Expires: 3 Start: 05-19-2022 End: 07-19-2022 THYROID PEROXIDASE ANTIBODY BLOOD [facility] Work Phone: Comment on above: Expected: 05/19/2022, Expires: 3 Start: 05-19-2022 End: 07-19-2022 Thyrotropin [Units/volume] in Serum or Plasma [facility] Work Phone: Comment on above: Expected: 05/19/2022, Expires: 3 Start: 05-19-2022 End: 07-19-2022 Thyroxine (T4) free [Mass/volume] in Serum or Plasma [facility] Work Phone: Comment on above: Expected: 05/19/2022, Expires: 3 Start: 05-19-2022 End: 07-19-2022 Triiodothyronine (T3) [Mass/volume] in Serum or Plasma [facility] Work Phone: Comment on above: Expected: 05/19/2022, Expires: 3 Start: 05-19-2022 End: 07-19-2022 Urinalysis complete panel - Urine [facility] Work Phone: Comment on above: Expected: 05/19/2022, Expires: 3 Start: 05-12-2022 End: 07-12-2022 25-hydroxyvitamin D3 [Mass/volume] in Serum or Plasma VITAMIN D 25 HYDROXY Lab Routine Hair loss Thyroid nodule Expected: 05/12/2022, Expires: 07/12/2022 [facility] Work Phone: Comment on above: Expected: 05/12/2022, Expires: 3 Start: 05-12-2022 End: 07-12-2022 Bacteria identified in Urine by Culture URINE CULTURE Microbiology Routine Acute right flank pain History of renal stone Expected: 05/12/2022, Expires: 07/12/2022 [facility] Work Phone: Comment on above: Expected: 05/12/2022, Expires: 3 Start: 05-12-2022 End: 07-12-2022 Cobalamin (Vitamin B12) [Mass/volume] in Serum or Plasma VITAMIN B12 BLOOD Lab Routine Hair loss Thyroid nodule Expected: 05/12/2022, Expires: 07/12/2022 [facility] Work Phone: Comment on above: Expected: 05/12/2022, Expires: 3 Start: 05-12-2022 End: 07-12-2022 Comprehensive metabolic 2000 panel - Serum or Plasma COMP METABOLIC PANEL Lab Routine Hair loss Thyroid nodule Expected: 05/12/2022, Expires: 07/12/2022 [facility] Work Phone: Comment on above: Expected: 05/12/2022, Expires: 3 Start: 05-12-2022 End: 07-12-2022 Pyridoxine [Mass/volume] in Serum or Plasma VITAMIN B6/PYRIDOXIN Lab Routine Hair loss Thyroid nodule Expected: 05/12/2022, Expires: 07/12/2022 [facility] Work Phone: Comment on above: Expected: 05/12/2022, Expires: 3 Start: 05-12-2022 End: 07-12-2022 RBC FOLATE RBC FOLATE Lab Routine Hair loss Thyroid nodule Expected: 05/12/2022, Expires: 07/12/2022 [facility] Work Phone: Comment on above: Expected: 05/12/2022, Expires: 3 Start: 05-12-2022 End: 07-12-2022 THYROID PEROXIDASE ANTIBODY BLOOD THYROID PEROXIDASE ANTIBODY BLOOD Lab Routine Hair loss Thyroid nodule Expected: 05/12/2022, Expires: 07/12/2022 [facility] Work Phone: Comment on above: Expected: 05/12/2022, Expires: 3 Start: 05-12-2022 End: 07-12-2022 Thyrotropin [Units/volume] in Serum or Plasma TSH BLD Lab Routine Hair loss Thyroid nodule Expected: 05/12/2022, Expires: 07/12/2022 [facility] Work Phone: Comment on above: Expected: 05/12/2022, Expires: 3 Start: 05-12-2022 End: 07-12-2022 Thyroxine (T4) free [Mass/volume] in Serum or Plasma T4 FREE/FREE THYROX Lab Routine Hair loss Thyroid nodule Expected: 05/12/2022, Expires: 07/12/2022 [facility] Work Phone: Comment on above: Expected: 05/12/2022, Expires: 3 Start: 05-12-2022 End: 07-12-2022 Triiodothyronine (T3) Free [Mass/volume] in Serum or Plasma T3 FREE BLD Lab Routine Hair loss Thyroid nodule Expected: 05/12/2022, Expires: 07/12/2022 [facility] Work Phone: Comment on above: Expected: 05/12/2022, Expires: 3 Start: 05-12-2022 End: 03-18-2023 Urinalysis complete panel - Urine URINALYSIS, WITH MICROSCOPIC Lab Routine Acute right flank pain History of renal stone Expected: 05/12/2022, Expires: 07/12/2022 [facility] Work Phone: Comment on above: Expected: 05/12/2022, Expires: 3 Start: 04-29-2022 Pelvic echography Pelvic (Non [facility] System Work Phone: Start: 04-29-2022 US Pelvis [facility] Work Phone: Start: 03-11-2022 COVID-19 VACCINE (#1) COVID-19 VACCINE (#1) [facility] Comment on above: Postponed from 01/16/1985 (Declined at t his time) Postponed from 07/16 (Declined at this time) Start: 03-11-2022 COVID-19 VACCINE (1) COVID-19 VACCINE (1) [facility] Comment on above: Postponed from 01/16/1985 (Declined at t his time) Start: 02-27-2022 End: 04-29-2022 Urinalysis complete panel - Urine [facility] Work Phone: Comment on above: Expected: 02/27/2022, Expires: 3 Start: 02-11-2022 End: 02-11-2022 Patient encounter procedure 02/11/2022 Office Visit Gynecologic Oncology Kayleigh Coronado APRN - PRINTING EQUIPMENT MECHANIC APPRENTICE [address] [facility] [address] [place] [address] [facility] CLINICAL BUSINESS ANALYST Oncology Start: 01-27-2022 End: 01-27-2022 Patient encounter procedure 01/27/2022 Appointment General Surgery Deon Camacho MD [address] [facility] [address] [place] [address] [facility] General Surgery Start: 01-16-2022 End: 03-18-2022 25-hydroxyvitamin D3 [Mass/volume] in Serum or Plasma VITAMIN D 25 HYDROXY Lab Routine Hair thinning Hair loss Fatigue, unspecified type Stress Body aches Expected: 01/16/2022, Expires: 03/18/2022 [facility] Work Phone: Comment on above: Expected: 01/16/2022, Expires: 2 Start: 01-16-2022 End: 03-18-2022 CBC panel - Blood by Automated count CBC Lab Routine Hair thinning Hair loss Fatigue, unspecified type Stress Body aches Expected: 01/16/2022, Expires: 03/18/2022 [facility] Work Phone: Comment on above: Expected: 01/16/2022, Expires: 2 Start: 01-16-2022 End: 03-18-2022 Cobalamin (Vitamin B12) [Mass/volume] in Serum or Plasma VITAMIN B12 BLOOD Lab Routine Hair thinning Hair loss Fatigue, unspecified type Stress Body aches Expected: 01/16/2022, Expires: 03/18/2022 [facility] Work Phone: Comment on above: Expected: 01/16/2022, Expires: 2 Start: 01-16-2022 End: 03-18-2022 Comprehensive metabolic 2000 panel - Serum or Plasma COMP METABOLIC PANEL Lab Routine Hair thinning Hair loss Fatigue, unspecified type Stress Body aches Expected: 01/16/2022, Expires: 03/18/2022 [facility] Work Phone: Comment on above: Expected: 01/16/2022, Expires: 2 Start: 01-16-2022 End: 03-18-2022 Ferritin [Mass/volume] in Serum or Plasma FERRITIN BLD Lab Routine Hair thinning Hair loss Fatigue, unspecified type Stress Body aches Expected: 01/16/2022, Expires: 03/18/2022 [facility] Work Phone: Comment on above: Expected: 01/16/2022, Expires: 2 Start: 01-16-2022 End: 03-18-2022 Iron and Iron binding capacity panel - Serum or Plasma IRON + TIBC Lab Routine Hair thinning Hair loss Fatigue, unspecified type Stress Body aches Expected: 01/16/2022, Expires: 03/18/2022 [facility] Work Phone: Comment on above: Expected: 01/16/2022, Expires: 2 Start: 01-16-2022 End: 03-18-2022 Thyrotropin [Units/volume] in Serum or Plasma TSH BLD Lab Routine Hypothyroidism, acquired Hair thinning Hair loss Fatigue, unspecified type Stress Body aches Expected: 01/16/2022, Expires: 03/18/2022 [facility] Work Phone: Comment on above: Expected: 01/16/2022, Expires: 2 Start: 01-16-2022 End: 03-18-2022 Thyroxine (T4) free [Mass/volume] in Serum or Plasma T4 FREE/FREE THYROX Lab Routine Hypothyroidism, acquired Hair thinning Hair loss Fatigue, unspecified type Stress Body aches Expected: 01/16/2022, Expires: 03/18/2022 [facility] Work Phone: Comment on above: Expected: 01/16/2022, Expires: 2 Start: 01-16-2022 End: 03-18-2022 Triiodothyronine (T3) [Mass/volume] in Serum or Plasma T3 BLD Lab Routine Hypothyroidism, acquired Hair thinning Hair loss Fatigue, unspecified type Stress Body aches Expected: 01/16/2022, Expires: 03/18/2022 [facility] Work Phone: Comment on above: Expected: 01/16/2022, Expires: 2 Start: 01-07-2022 Adult depression screening assessment DEPRESSION SCREENING [facility] Start: 01-02-2022 Complement C4 [Mass/volume] in Serum or Plasma [facility] Work Phone: Start: 01-02-2022 Complement total hemolytic CH50 [Units/volume] in Serum or Plasma [facility] Work Phone: Start: 12-26-2021 Influenza vaccination [facility] Start: 12-05-2021 End: 02-04-2022 C reactive protein [Mass/volume] in Serum or Plasma C-REACTIVE PROTEIN (CRP) Lab Routine Pain in both hands Expected: 12/05/2021, Expires: 02/04/2022 [facility] Work Phone: Comment on above: Expected: 12/05/2021, Expires: 2 Start: 12-05-2021 End: 02-04-2022 CBC panel - Blood by Automated count CBC Lab Routine Pain in both hands Expected: 12/05/2021, Expires: 02/04/2022 [facility] Work Phone: Comment on above: Expected: 12/05/2021, Expires: 2 Start: 12-05-2021 End: 02-04-2022 Comprehensive metabolic 2000 panel - Serum or Plasma COMP METABOLIC PANEL Lab Routine Pain in both hands Expected: 12/05/2021, Expires: 02/04/2022 [facility] Work Phone: Comment on above: Expected: 12/05/2021, Expires: 2 Start: 12-05-2021 End: 02-04-2022 Cyclic citrullinated peptide IgG Ab [Units/volume] in Serum or Plasma CCP ANTIBODY IGG Lab Routine Pain in both hands Expected: 12/05/2021, Expires: 02/04/2022 [facility] Work Phone: Comment on above: Expected: 12/05/2021, Expires: 2 Start: 12-05-2021 End: 02-04-2022 Erythrocyte sedimentation rate SED RATE WESTERGREN Lab Routine Pain in both hands Expected: 12/05/2021, Expires: 02/04/2022 [facility] Work Phone: Comment on above: Expected: 12/05/2021, Expires: 2 Start: 12-05-2021 End: 02-04-2022 Extractable nuclear Ab panel - Serum ANTI OCTAVIANO ID Lab Routine Pain in both hands Expected: 12/05/2021, Expires: 02/04/2022 [facility] Work Phone: Comment on above: Expected: 12/05/2021, Expires: 2 Start: 12-05-2021 End: 02-04-2022 Nuclear Ab [Presence] in Serum by Immunoassay ZACHARIAH BLOOD Lab Routine Pain in both hands Expected: 12/05/2021, Expires: 02/04/2022 [facility] Work Phone: Comment on above: Expected: 12/05/2021, Expires: 2 Start: 12-05-2021 End: 02-04-2022 Rheumatoid factor [Units/volume] in Serum or Plasma RHEUMATOID FACTOR BL Lab Routine Pain in both hands Expected: 12/05/2021, Expires: 02/04/2022 [facility] Work Phone: Comment on above: Expected: 12/05/2021, Expires: 2 Start: 11-25-2021 Influenza vaccination Flu vaccine (#1) [facility] Start: 08-12-2021 End: 10-12-2021 CBC panel - Blood by Automated count [facility] Work Phone: Comment on above: Expected: 08/12/2021, Expires: 2 Start: 08-12-2021 End: 10-12-2021 Comprehensive metabolic 2000 panel - Serum or Plasma [facility] Work Phone: Comment on above: Expected: 08/12/2021, Expires: 2 Start: 08-12-2021 End: 10-12-2021 Hemoglobin A1c/Hemoglobin.total in Blood [facility] Work Phone: Comment on above: Expected: 08/12/2021, Expires: 2 Start: 08-12-2021 End: 10-12-2021 LIPID PANEL BASIC [facility] Work Phone: Comment on above: Expected: 08/12/2021, Expires: 2 Start: 08-12-2021 End: 10-12-2021 T3 BLD [facility] Work Phone: Comment on above: Expected: 08/12/2021, Expires: 2 Start: 08-12-2021 End: 10-12-2021 T4 FREE/FREE THYROX [facility] Work Phone: Comment on above: Expected: 08/12/2021, Expires: 2 Start: 08-12-2021 End: 10-12-2021 Thyrotropin [Units/volume] in Serum or Plasma TSH BLD Lab Routine Hypothyroidism, acquired Obesity, Class II, BMI 35-39.9 Expected: 08/12/2021, Expires: 10/12/2021 [facility] Work Phone: Comment on above: Expected: 08/12/2021, Expires: 2 Start: 08-12-2021 End: 10-12-2021 VITAMIN B12 BLOOD [facility] Work Phone: Comment on above: Expected: 08/12/2021, Expires: 2 Start: 08-12-2021 End: 10-12-2021 VITAMIN D 25 HYDROXY [facility] Work Phone: Comment on above: Expected: 08/12/2021, Expires: 2 Start: 07-30-2021 Ambulation without limitation [facility] Work Phone: Start: 07-30-2021 Medical regimen orders management [facility] Work Phone: Start: 07-30-2021 Medication education [facility] Work Phone: Start: 07-30-2021 Patient discharge [facility] Work Phone: Start: 07-30-2021 Procedure discontinued [facility] Work Phone: Start: 07-30-2021 Taking patient vital signs [facility] Work Phone: Start: 07-30-2021 Vital signs measurements [facility] Work Phone: Start: 07-30-2021 [facility] Work Phone: Start: 07-30-2021 Anesthesia intraperitoneal lower abd w/laps nos ANESTH SURG LOWER ABDOMEN [facility] Work Phone: Start: 07-30-2021 Laparoscopy w/lysis of adhesions LAPAROSCOPY LYSIS [facility] Work Phone: Start: 07-30-2021 Laps fulg/exc ovary viscera/peritoneal surface LAPAROSCOPY EXCISE LESIONS [facility] Work Phone: Start: 07-30-2021 Application of antithromboembolic stockings [facility] Work Phone: Start: 04-27-2021 DEPRESSION ASSESSMENT DEPRESSION ASSESSMENT [facility] Start: 2020 Lipid panel Lipids [facility] Start: 2020 Screening for malignant neoplasm of breast Breast cancer screen [facility] Start: 07-21-2017 DTaP/Tdap/Td vaccine (1 - Tdap) DTaP/Tdap/Td vaccine (1 - Tdap) [facility] Start: 07-21-2017 Urine microalbumin profile DTaP,Tdap,Td Vaccine (1 - Tdap) [facility] Start: 01-16-2015 Diabetes screen Diabetes screen [facility] Start: 01-16-2010 Screening for malignant neoplasm of cervix [facility] Start: 03-28-2009 Varicella vaccine (1 of 2 - 2-dose childhood series) Varicella vaccine (1 of 2 - 2-dose childhood series) [facility] Start: 01-16-2007 HPV Vaccine (1 - 3-dose SCDM series) HPV Vaccine (1 - 3-dose SCDM series) [facility] Start: 01-16-2001 Screening for malignant neoplasm of cervix Pap smear [facility] Start: 01-16-1999 Hepatitis B Vaccine (1 of 3 - 19+ 3-dose series) Hepatitis B Vaccine (1 of 3 - 19+ 3-dose series) [facility] Start: 01-16-1999 Urine microalbumin profile [facility] Start: 01-16-1998 Depression Screening Depression Screening [facility] Start: 01-16-1998 HEPATITIS C SCREENING HEPATITIS C SCREENING [facility] Start: 01-16-1998 Hepatitis C screening [facility] Start: 01-16-1998 HIV SCREENING HIV SCREENING [facility] Start: 01-16-1998 HIV screening HIV Screening [facility] Start: 01-16-1995 HIV screening HIV screen [facility] Start: 1992 Depression Screen Depression Screen [facility] Start: 1980 COVID-19 Vaccine (#1) COVID-19 Vaccine (#1) [facility] Start: 1980 HEPATITIS B (1 of 3 - 3-dose series) HEPATITIS B (1 of 3 - 3-dose series) [facility] Start: 1980 Hepatitis B Vaccine (1 of 3 - 3-dose series) Hepatitis B Vaccine (1 of 3 - 3-dose series) [facility] Acetylcholine recept or Ab [Moles/volume] in Serum [facility] Acetylcholine recept or blocking Ab [Presence] in Serum [facility] Acetylcholine recept or modulating antibody measurement [facility] Bacteria identified in Urine by Culture URINE CULTURE Microbiology Routine Right ureteral stone Ordered: 02/09/2023 [facility] Work Phone: Comment on above: Ordered: 02/09/2023 Bacteria identified in Urine by Culture URINE CULTURE Microbiology Routine Acute cystitis without hematuria Ordered: 03/24/2023 [facility] Work Phone: Comment on above: Ordered: 03/24/2023 Blood glucose - POCT Blood gluco se - POCT Point of Care Testing STAT As Needed until discontinued starting 01/27/2022 [facility] Work Phone: Comment on above: As Needed until discontinued starting Chlamydia deoxyribon ucleic acid detection [facility] Complement C3 [Mass/ volume] in Serum or Plasma [facility] Work Phone: Complement C4 [Mass/ volume] in Serum or Plasma [facility] Work Phone: Complement total hem olytic CH50 [Units/volume] in Serum or Plasma [facility] Work Phone: COVID & INFLUENZA A/ B & RSV PCR, ROUTINE COVID & INFLUENZA A/B & RSV PCR, ROUTINE Microbiology Routine SOB (shortness of breath) Wheeze Acute cough 06/30/2024 9:55 AM EST [facility] Work Phone: End: 01-27-2022 Creatinine [Mass/volume] in Serum or Plasma Creatinine, serum Lab STAT One Time for 1 Occurrences starting 01/27/2022 until 01/27/2022 [facility] Work Phone: Comment on above: One Time for 1 Occurrences starting 06/2021 until 01/27/2022 End: 03-29-2023 Ct abdomen & pelvis w/contrast material CT ABD/PEL W IVCON Radiology TIM Left lower quadrant abdominal pain 1 Occurrences starting 02/27/2022 until 03/29/2023 [facility] Work Phone: Comment on above: 1 Occurrences starting 02/27/2022 until 03/29/2023 End: 06-11-2023 Ct abdomen & pelvis w/o contrast material CT FLANK WO IVCON Radiology Routine Acute right flank pain History of renal stone 1 Occurrences starting 05/12/2022 until 06/11/2023 [facility] Work Phone: Comment on above: 1 Occurrences starting 05/12/2022 until 06/11/2023 End: 03-03-2024 Ct abdomen & pelvis w/o contrast material CT FLANK WO IVCON Radiology Routine Kidney stone Gross hematuria Flank pain 1 Occurrences starting 02/02/2023 until 03/03/2024 [facility] Work Phone: Comment on above: 1 Occurrences starting 02/02/2023 until 03/03/2024 Ct abdomen & pelvis w/o contrast material CT FLANK WO IVCON Radiology Routine Kidney stone Gross hematuria Flank pain 02/05/2023 8:51 AM EDT [facility] Work Phone: End: 02-02-2025 CT Abdomen and Pelvis W contrast IV CT ABD/PEL W IVCON Radiology Routine Endometriosis Right lower quadrant abdominal pain 1 Occurrences starting 01/04/2024 until 02/02/2025 [facility] Work Phone: Comment on above: 1 Occurrences starting 01/04/2024 until 02/02/2025 End: 10-22-2024 CT Abdomen and Pelvis WO contrast CT ABD/PEL WO IVCON Radiology Routine Calculus of kidney 1 Occurrences starting 09/22/2023 until 10/22/2024 [facility] Work Phone: Comment on above: 1 Occurrences starting 09/22/2023 until 10/22/2024 CT Abdomen and Pelvi s WO contrast CT ABD/PEL WO IVCON Radiology Routine Calculus of kidney 09/29/2023 2:51 PM EDT [facility] Work Phone: CT Chest WO and W co ntrast IV [facility] CT Facial bones [facility] Work Phone: End: 07-07-2025 DBT Breast - bilateral screening MIRELLA SCREENING W CHRISTIANO Radiology Routine Encounter for screening mammogram for breast cancer 1 Occurrences starting 06/07/2024 until 07/07/2025 [facility] Work Phone: Comment on above: 1 Occurrences starting 06/07/2024 until 07/07/2025 End: 04-04-2025 Echocardiography ECHO Cardiology Routine Dyslipidemia ORTEZ (dyspnea on exertion) 1 Occurrences starting 04/04/2024 until 04/04/2025 [facility] Comment on above: 1 Occurrences starting 04/04/2024 until 04/04/2025 EKG 12 Lead EKG 12 Lead ECG STAT 01/27/2022 11:21 AM EDT [employer] Work Phone: Erythrocyte sediment ation rate [facility] Work Phone: Hepatitis B virus kellogg rface Ag [Presence] in Serum [facility] Influenza virus A an d B RNA and SARS-CoV-2 (COVID-19) N gene panel - Respiratory specimen by SHANE with probe detection COVID WITH FLUA+B, ROUTINE Microbiology Routine Hair thinning Hair loss Fatigue, unspecified type Stress Body aches Ordered: 01/16/2022 [facility] Work Phone: Comment on above: Ordered: 01/16/2022 End: 01-27-2022 INITIATE PACU OXYGEN THERAPY PROTOCOL Initiate PACU Oxygen Therapy Protocol Respiratory Care Routine Continuous until discontinued starting 01/27/2022 [employer] Work Phone: Comment on above: Continuous until discontinued starting 1 End: 01-27-2022 Intermittent pulse oximetry Pulse Oximetry Spot Check Respiratory Care Routine One Time for 1 Occurrences starting 01/27/2022 until 01/27/2022 [employer] Work Phone: Comment on above: One Time for 1 Occurrences starting 06/2021 until 01/27/2022 End: 08-22-2023 MIRELLA SCREENING MIRELLA SCREENING Radiology Routine Encounter for screening mammogram for breast cancer 1 Occurrences starting 07/23/2022 until 08/22/2023 [facility] Work Phone: Comment on above: 1 Occurrences starting 07/23/2022 until 08/22/2023 End: 07-07-2022 MIRELLA SCREENING W CHRISTIANO MIRELLA SCREENING W CHRISTIANO Radiology Routine Encounter for screening mammogram for breast cancer 1 Occurrences starting 06/07/2021 until 07/07/2022 [facility] Work Phone: Comment on above: 1 Occurrences starting 06/07/2021 until 07/07/2022 Measurement of Human herpesvirus 2 antibody [facility] End: 07-30-2024 MG Breast Screening MIRELLA SCREENING Radiology Routine Encounter for screening mammogram for breast cancer 1 Occurrences starting 07/01/2023 until 07/30/2024 [facility] Work Phone: Comment on above: 1 Occurrences starting 07/01/2023 until 07/30/2024 End: 08-04-2025 MG Breast Screening MIRELLA SCREENING Radiology Routine Encounter for screening mammogram for malignant neoplasm of breast 1 Occurrences starting 07/05/2024 until 08/04/2025 [facility] Work Phone: Comment on above: 1 Occurrences starting 07/05/2024 until 08/04/2025 Nasal Cannula Oxygen Nasal Cannu la Oxygen Respiratory Care Routine As Needed until discontinued starting 01/27/2022 [employer] Work Phone: Comment on above: As Needed until discontinued starting Nasal Cannula Oxygen Nasal Cannu la Oxygen Respiratory Care Routine As Needed until discontinued starting 01/27/2022 [employer] Work Phone: Comment on above: As Needed until discontinued starting Nonrebreather mask oxygen Nonreb reather mask oxygen Respiratory Care Routine As Needed until discontinued starting 01/27/2022 [employer] Work Phone: Comment on above: As Needed until discontinued starting Nonrebreather mask oxygen Nonreb reather mask oxygen Respiratory Care Routine As Needed until discontinued starting 01/27/2022 [employer] Work Phone: Comment on above: As Needed until discontinued starting OCCULT BLD EXAM-DIAG OCCULT BLD EXAM-DIAG Microbiology Routine Bloody stool Chronic midline low back pain without sciatica Abdominal pain, LLQ Hx of bilateral oophorectomy Ordered: 02/27/2022 [facility] Work Phone: Comment on above: Ordered: 02/27/2022 Oxygen therapy [[facility] Data Set] Initiate Oxygen Therapy Protocol Respiratory Care Routine As Needed until discontinued starting 01/27/2022 [employer] Work Phone: Comment on above: As Needed until discontinued starting Patient Education [facility] Work Phone: Patient referral [facility] Work Phone: End: 01-27-2022 Potassium w/ Reflex to Magnesium Potassium w/ Reflex to Magnesium Lab Routine One Time for 1 Occurrences starting 01/27/2022 until 01/27/2022 [employer] Work Phone: Comment on above: One Time for 1 Occurrences starting 06/2021 until 01/27/2022 End: 01-27-2022 , urine POCT , urine POCT Point of Care Testing Routine One Time for 1 Occurrences starting 01/27/2022 until 01/27/2022 [employer] Work Phone: Comment on above: One Time for 1 Occurrences starting 06/2021 until 01/27/2022 End: 01-27-2022 Protime-INR Protime-INR Lab STAT One Time for 1 Occurrences starting 01/27/2022 until 01/27/2022 [employer] Work Phone: Comment on above: One Time for 1 Occurrences starting 06/2021 until 01/27/2022 End: 06-11-2023 Radex sacrum & coccyx minimum 2 views XR SACRUM/COCCYX 3V AP/LAT Radiology Routine Sacral pain Chronic midline low back pain without sciatica 1 Occurrences starting 05/12/2022 until 06/11/2023 [facility] Work Phone: Comment on above: 1 Occurrences starting 05/12/2022 until 06/11/2023 End: 06-11-2023 Radex spine lumbosacral 2/3 views XR LUMBAR GENERAL 3V AP/LAT/L5-S1 Radiology Routine Sacral pain Chronic midline low back pain without sciatica 1 Occurrences starting 05/12/2022 until 06/11/2023 [facility] Work Phone: Comment on above: 1 Occurrences starting 05/12/2022 until 06/11/2023 Serologic test for h erpes simplex [facility] Spirometry panel Incentive yaa metry Respiratory Care Routine Q1H PRN until discontinued starting 01/27/2022 [facility] Work Phone: Comment on above: Q1H PRN until discontinued starting 06/2021 Ther px 1/> areas ea ch 15 minutes massage MASSAGE THERAPY Procedures Routine Acute pain of right shoulder Ordered: 05/05/2024 [facility] Comment on above: Ordered: 05/05/2024 UA DIP, URINE (POC) UA DIP, URIN E (POC) Lab Routine Kidney stone Gross hematuria Ordered: 02/02/2023 [facility] Work Phone: Comment on above: Ordered: 02/02/2023 UA DIP, URINE (POC) UA DIP, URIN E (POC) Lab Routine Nausea Bilateral flank pain Ordered: 07/07/2024 [facility] Comment on above: Ordered: 07/07/2024 End: 03-10-2024 US KIDNEY/BLADDER US KIDNEY/BLADDER Radiology Routine Right ureteral stone 1 Occurrences starting 02/09/2023 until 03/10/2024 [facility] Work Phone: Comment on above: 1 Occurrences starting 02/09/2023 until 03/10/2024 US Pelvis [facility] US Pelvis transvaginal [facility] End: 06-11-2023 Us soft tissue head & neck real time imge docm US THYROID/PARATHYROID Radiology Routine Hair loss Thyroid nodule 1 Occurrences starting 05/12/2022 until 06/11/2023 [facility] Work Phone: Comment on above: 1 Occurrences starting 05/12/2022 until 06/11/2023 End: 05-04-2025 US Thyroid gland US THYROID/PARATHYROID Radiology Routine Hypothyroidism, acquired Thyroid nodule 1 Occurrences starting 04/04/2024 until 05/04/2025 [facility] Comment on above: 1 Occurrences starting 04/04/2024 until 05/04/2025 US Thyroid gland US THYROID/PARA THYROID Radiology Routine Hypothyroidism, acquired Thyroid nodule 04/05/2024 7:53 AM EST [facility] Work Phone: End: 12-10-2024 US Upper extremity - left US HAND/WRIST SYNOVIAL SCREEN LEFT Radiology Routine Finger swelling 1 Occurrences starting 11/11/2023 until 12/10/2024 [facility] Comment on above: 1 Occurrences starting 11/11/2023 until 12/10/2024 End: 12-10-2024 US Upper extremity - right US HAND/WRIST SYNOVIAL SCREEN RIGHT Radiology Routine Finger swelling 1 Occurrences starting 11/11/2023 until 12/10/2024 [facility] Work Phone: Comment on above: 1 Occurrences starting 11/11/2023 until 12/10/2024 End: 03-10-2024 XR ABDOMEN 1V SUPINE XR ABDOMEN 1V SUPINE Radiology Routine Right ureteral stone 1 Occurrences starting 02/09/2023 until 03/10/2024 [facility] Work Phone: Comment on above: 1 Occurrences starting 02/09/2023 until 03/10/2024 XR Abdomen Supine an d Upright XR ABDOMEN 1V SUPINE Radiology Routine Right ureteral stone 09/17/2023 11:28 AM EDT [facility] Work Phone: End: 10-22-2024 XR Abdomen Supine and Upright XR ABDOMEN 1V SUPINE Radiology Routine Calculus of kidney 1 Occurrences starting 09/22/2023 until 10/22/2024 [facility] Comment on above: 1 Occurrences starting 09/22/2023 until 10/22/2024 End: 08-04-2025 XR Chest PA and Lateral XR CHEST 2V FRONTAL/LAT Radiology Routine Rhonchi at both lung bases Community acquired pneumonia, unspecified laterality 1 Occurrences starting 07/05/2024 until 08/04/2025 [facility] Comment on above: 1 Occurrences starting 07/05/2024 until 08/04/2025 End: 06-04-2025 XR Shoulder - right 3 Views XR SHOULDER GENERAL 3V OR MORE AP/TRUE AP/OTHER RIGHT Radiology Routine Acute pain of right shoulder 1 Occurrences starting 05/05/2024 until 06/04/2025 [facility] Work Phone: Comment on above: 1 Occurrences starting 05/05/2024 until 06/04/2025 [facility] Immunizations Immunization Date Immunization Notes Care Provider Navarro andersen 03-15-2018 influenza virus vacc ine, unspecified formulation Jose Luis Toledo DO Work Phone: [facility] 02-02-2015 influenza, injectabl e, quadrivalent, contains preservative Dee Flores NETWORKING SPECIALIST.PRINTING EQUIPMENT 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 2022 Unknown 2022 Unknown [id number] 2019 Medicaid [employer]ICA[employer] [id number] 2019-Present [phone] [address] [place] [address] Medicaid [id number] 2019 Medicaid [id number] 2015 Unknown [id number] 2015 Unknown [id number] 1980 Unknown [id number] 1980 Unknown [id number] 668 Unknown [id number] 462 Unknown [id number] 462 Unknown [id number] 462 Unknown [id number] 462 Unknown [id number] 462 Unknown [id number] 462 Unknown [id number] 462 Unknown [id number] 462 Social History Date Type Detail Facility Start: 07-09-2021 End: 05-26-2023 Tobacco smoking status AKIS Unknown if ever smoked [facility] Start: 11-23-2019 None [facility] Start: 11-23-2019 Spouse/ Signif icant Other [facility] Start: 09-04-2020 Non-smoker [facility] Start: 1980 Sex Assigned At Female W [facility] Start: 01-15-2011 End: 01-16-2022 Tobacco smoking status NHIS Never smoked tobacco [facility] Start: 08-12-2021 End: 10-06-2024 Alcohol intake Current drinker of alcohol (finding) [facility] Start: 11-20-2016 History SDOH Alcohol Comment twice a year-socially [facility] Start: 1980 Sex Assigned At Not on file C [facility] Start: 01-14-2020 End: 02-27-2022 Exposure to SARS-CoV-2 (event) Not sure [facility] Start: 11-04-2021 End: 06-29-2022 History SDOH Alcohol Frequency 2 [facility] Start: 11-04-2021 End: 06-29-2022 History SDOH Alcohol Std Drinks 1 [facility] Start: 11-04-2021 End: 06-29-2022 History SDOH Social Connections Phone 4 [facility] Start: 11-04-2021 History SDOH Social Connections Scientologist 98 [facility] Start: 11-04-2021 End: 06-29-2022 History SDOH Social Connections Living 3 [facility] Start: 01-15-2011 End: 01-16-2022 Tobacco use and exposure Smokeless tobacco non-user [facility] Work Phone: Start: 01-22-2022 History SDOH Alcohol Comment occ [facility] Work Phone: Start: 01-12-2022 End: 01-22-2022 Exposure to SARS-CoV-2 (event) Yes [facility] Work Phone: Start: 06-29-2022 History SDOH Social Connections Phone 5 [facility] Start: 06-29-2022 History SDOH Physica l Activity MPS 7 [facility] Start: 06-28-2022 End: 11-10-2022 History of Social function [facility] Start: 06-28-2022 End: 11-10-2022 Social connection and isolation panel [facility] Do you belong to any clubs or organizations such as oriental orthodox groups, unions, fraternal or athletic groups, or school groups? No [facility] Are you now , , , , never or living with a partner? [facility] How often to you hav e a drink containing alcohol? Monthly or less [facility] How many standard drinks containing alcohol do you have on a typical day? 1 or 2 [facility] How often do you hav e 6 or more drinks on 1 occasion? Never [facility] How hard is it for y ou to pay for the very basics like food, housing, medical care, and heating Somewhat hard [facility] Start: 03-28-2012 Adult Depression Screening Assessment 0 [facility] Work Phone: Do you feel stress - tense, restless, nervous, or anxious, or unable to sleep at night because your mind is troubled all the time - these days [OSQ] Rather much [facility] (I/We) worried wheth er (my/our) food would run out before (I/we) got money to buy more. Never true [facility] Do you feel stress - tense, restless, nervous, or anxious, or unable to sleep at night because your mind is troubled all the time - these days [OSQ] To some extent [facility] Do you feel stress - tense, restless, nervous, or anxious, or unable to sleep at night because your mind is troubled all the time - these days [OSQ] Very much [facility] Start: 07-27-2024 Sex Female (finding) [facility] NEGATED: Highlighted row [facility] Medical Equipment Procedure Code Equipment Code Equipment Original Text Equipment Identifier Dates SEALANT,FLOSEAL HEMOSTATIC 5ML FDA Start: 07-30-2021 Plant polysaccha ride haemostatic agent, bioabsorbable [id number] FDA Start: 07-30-2021 SEALANT,FLOSEAL HEMOSTATIC 5ML FDA Start: 07-30-2021 SEALANT,FLOSEAL HEMOSTATIC 5ML FDA Start: 07-30-2021 SEALANT,FLOSEAL HEMOSTATIC 5ML FDA Start: 07-30-2021 SEALANT,FLOSEAL HEMOSTATIC 5ML FDA Start: 07-30-2021 SEALANT,FLOSEAL HEMOSTATIC 5ML FDA Start: 07-30-2021 SEALANT,FLOSEAL HEMOSTATIC 5ML FDA Start: 07-30-2021 SEALANT,FLOSEAL HEMOSTATIC 5ML FDA Start: 07-30-2021 SEALANT,FLOSEAL HEMOSTATIC 5ML FDA Start: 07-30-2021 SEALANT,FLOSEAL HEMOSTATIC 5ML FDA Start: 07-30-2021 SEALANT,FLOSEAL HEMOSTATIC 5ML FDA Start: 07-30-2021 SEALANT,FLOSEAL HEMOSTATIC 5ML FDA Start: 07-30-2021 SEALANT,FLOSEAL HEMOSTATIC 5ML FDA Start: 07-30-2021 SEALANT,FLOSEAL HEMOSTATIC 5ML FDA Start: 07-30-2021 SEALANT,FLOSEAL HEMOSTATIC 5ML FDA Start: 07-30-2021 SEALANT,FLOSEAL HEMOSTATIC 5ML FDA Start: 07-30-2021 SEALANT,FLOSEAL HEMOSTATIC 5ML FDA Start: 07-30-2021 1 Syringe as directed. [id number] art: 09-29-2023 1 Each once daily. [id number] Start: 04-12-2024 End: 10-09-2024 SEALANT,FLOSEAL HEMOSTATIC 5ML FDA Start: 07-30-2021 SEALANT,FLOSEAL HEMOSTATIC 5ML FDA Start: 07-30-2021 SEALANT,FLOSEAL HEMOSTATIC 5ML FDA Start: 07-30-2021 SEALANT,FLOSEAL HEMOSTATIC 5ML FDA Start: 07-30-2021 SEALANT,FLOSEAL HEMOSTATIC 5ML FDA Start: 07-30-2021 Goals Date Patient Goal Desired Activity /State Functional Status Date Assessment Result Facility 10-31-2014 Are you deaf, or do you have serious difficulty hearing No 10/31/2014 11:28 AM JACKYT Bertha Rivera LPN No [facility] Work Phone: 10-31-2014 Are you blind, or do you have serious difficulty seeing, even when wearing glasses No 10/31/2014 11:28 AM Bertha Ibarra LPN No [facility] 10-31-2014 Do you have serious difficulty walking or climbing stairs No 10/31/2014 11:28 AM EDT Bertha Rivera LPN No [facility] 10-31-2014 Do you have difficul ty dressing or bathing No 10/31/2014 11:28 AM EDT Bertha Rivera LPN No [facility] 10-31-2014 Because of a physica l, mental, or emotional condition, do you have difficulty doing errands alone such as visiting a physician's office or shopping No 10/31/2014 11:28 AM EDT Bertha Rivera LPN No [facility] Mental Status Date Assessment Result Facility 07-30-2021 Cognitive function Voice/Name [facility] Work Phone: 10-31-2014 Because of a physica l, mental, or emotional condition, do you have serious difficulty concentrating, remembering, or making decisions No 10/31/2014 11:28 AM EDT Bertha Rivera LPN No [facility] Clinical Notes 10-21-2016 to 01-09-2025 Telephone Encounter - Jose Luis Toledo DO - 01/09/2025 7:30 AM EDTTelephone Encounter - Jose Luis Tloedo DO - 01/09/2025 7:30 AM EDTPatient Instructions Note Date & Type Note Facility 01-09-2025 Telephone encounter Note The lab canceled her orders Orders replaced in chart Jose Luis Toledo DO [facility] 01-09-2025 Miscellaneous Notes The lab canceled her orders Orders replaced in chart Jose Luis Toledo DO documented in this encounter [facility] 01-06-2025 Instructions Jose Luis Toledo DO - 01/06/2025 10:11 AM EDT Pyrostigmine for Myasthenia Gravis Pharmacologic Category Acetylcholinesterase Inhibitor documented in this encounter [facility] 01-06-2025 Note HNO ID: [id number] Author: JOSE LUIS TOLEDO, DO Service: ? Author Type: Physician Type: Progress Notes Filed: 01/06/2025 12:16 Note Text: CC: Sammy Redd is a 44 year old female who presents to the office for follow up HPI: Muscle weakness and myalgias, she Was just diagnosed with Myasthenia gravis with Neurology Dr. Oneal at [facility]- antibody levels were normal but he feels this is what she has on a clinical basis. Was told to start on pyrostigmine 60 mg to be cut in half to take twice a day. Has been noticing a lot of Ptosis.' Has a lot of situational stressors- was started on Celexa 10 mg a day about 3 months ago. Has had high anxiety and compulsive and obsessive thoughts- + fatigue, +difficulty with concentration Infected cyst, right upper thigh inner, was started on doxycycline. Was told that she can't be on this rx. Was starting to get better then worsening because wasn't able to continue this antibiotic. She is soaking and using epsom salts. Obesity, she is taking adipex with benefit, currently weight at 192 lbs. Goal to lose at least 20 more lbs. No SE with medication + insomnia, long standing, feels this is what is mostly affecting her mood. Asking for medication to try to get to sleep and stay asleep. Has been trying over the counter sleep aides with benadryl and melatonin PAST MEDICAL HISTORY Diagnosis Date Anesthesia states mom had issues in 2013 leading to air emboli after surgery. pt herself has had no issues. Anxiety Cerebral aneurysm (HCC) 2015 just watching scanned last 2021 - Dr. Oneal Complicated migraine Endometriosis 75% improvement in abdominal pain post lap surgery Fibromyalgia Hypothyroidism IBS (irritable bowel syndrome) Insulin resistance Kidney stone Lactose intolerance in adult Left thyroid nodule 12/2020 repeat thyroid US 12/2021 Low HDL (under 40) Low serum progesterone worsening symptoms with progesterone rx Lumbar disc disease 05/13/2010 Migraines CADENCE (obstructive sleep apnea) Last polysomnogram in 2012, last use in 2012 Personal history of kidney stones Polycystic ovary syndrome 06/19/2010 Protein S deficiency (HCC) 2007 clotting disorder (just had APPT drawn - in [facility] - [facility]) PUD (peptic ulcer disease) 2009 treated medically, repeat EGD neg in 2014 Renal calculi 2008 associated to low citric [...] PYELOTOMY W/REMOVAL CALCULUS 04/27/2008 multiple VAGINAL HYSTERECTOMY Current Outpatient Medications Medication Sig Phentermine HCl (ADIPEX-P) 37.5 mg tablet Take 1 tablet by mouth once daily for 90 days. BMI 38.28 dulaglutide (TRULICITY) 1.5 mg/0.5 mL pen injector Inject 1.5 mg subcutaneously one time a week. Inject dose once per week. Discard Pen After sulfamethoxazole-trimethoprim (BACTRIM DS) 800-160 mg per tablet Take 1 tablet by mouth two times a day for 10 days. traZODone (DESYREL) 50 mg tablet Take 1-2 tablets by mouth daily at bedtime. For insomnia clonazePAM (KLONOPIN) 1 mg tablet Take 0.5-1 tablets by mouth two times a day as needed for anxiety for up to 30 days. for insomnia. ondansetron (ZOFRAN) 8 mg tablet Take 1 tablet by mouth every 8 hours as needed for nausea/vomiting. (Patient not taking: Reported on 10/06/2024) albuterol HFA (PROVENTIL HFA, VENTOLIN HFA) 90 mcg/actuation inhaler Inhale 2 Puffs as instructed every 4 hours as needed for wheezing/shortness of breath. albuterol (PROVENTIL) 2.5 mg /3 mL (0.083 %) nebulizer solution Use 3 mL via nebulizer every 4 hours as needed for wheezing/shortness of breath. albuterol HFA (PROVENTIL HFA, VENTOLIN HFA) 90 mcg/actuation inhaler Inhale 2 Puffs as instructed every 4 hours as needed for wheezing/shortness of breath. diclofenac (VOLTAREN ARTHRITIS PAIN) 1 % topical gel Apply 2 g to affected area three times a day as needed. tiZANidine (ZANAFLEX) 4 mg tablet Take 1 tablet by mouth every 8 hours as needed (muscle spasms). Cholecalciferol, Vitamin D3, 125 mcg (5,000 unit) cap Take 1 capsule by mouth every morning. In addition to 1,000 international unit(s) every morning vitamin D3-vitamin K2, MK4, 1,000-100 unit-mcg tab Take 1 tablet by mouth every morning. In addition to 5,000 units levothyroxine (SYNTHROID) 88 mcg tablet Take 1 tablet by mouth daily before breakfast. and skip 1 day weekly. cyanocobalamin 1,000 mcg/mL Inject 1 mL intramusc (more content not included)... [facility] 01-06-2025 History of Presen t illness Narrative CC: Sammy Redd is a 44 year old female who presents to the office for follow up HPI: Muscle weakness and myalgias, she Was just diagnosed with Myasthenia gravis with Neurology Dr. Oneal at [facility]- antibody levels were normal but he feels this is what she has on a clinical basis. Was told to start on pyrostigmine 60 mg to be cut in half to take twice a day. Has been noticing a lot of Ptosis.' Has a lot of situational stressors- was started on Celexa 10 mg a day about 3 months ago. Has had high anxiety and compulsive and obsessive thoughts- + fatigue, +difficulty with concentration Infected cyst, right upper thigh inner, was started on doxycycline. Was told that she can't be on this rx. Was starting to get better then worsening because wasn't able to continue this antibiotic. She is soaking and using epsom salts. Obesity, she is taking adipex with benefit, currently weight at 192 lbs. Goal to lose at least 20 more lbs. No SE with medication + insomnia, long standing, feels this is what is mostly affecting her mood. Asking for medication to try to get to sleep and stay asleep. Has been trying over the counter sleep aides with benadryl and melatonin PAST MEDICAL HISTORY Diagnosis Date Anesthesia states mom had issues in 2013 leading to air emboli after surgery. pt herself has had no issues. Anxiety Cerebral aneurysm (HCC) 2015 just watching scanned last 2021 - Dr. Oneal Complicated migraine Endometriosis 75% improvement in abdominal pain post lap surgery Fibromyalgia Hypothyroidism IBS (irritable bowel syndrome) Insulin resistance Kidney stone Lactose intolerance in adult Left thyroid nodule 12/2020 repeat thyroid US 12/2021 Low HDL (under 40) Low serum progesterone worsening symptoms with progesterone rx Lumbar disc disease 05/13/2010 Migraines CADENCE (obstructive sleep apnea) Last polysomnogram in 2012, last use in 2012 Personal history of kidney stones Polycystic ovary syndrome 06/19/2010 Protein S deficiency (HCC) 2007 clotting disorder (just had APPT drawn - in [facility]) PUD (peptic ulcer disease) 2009 treated medically, repeat EGD neg in 2014 Renal calculi 2008 associated to low citric [...] PYELOTOMY W/REMOVAL CALCULUS 04/27/2008 multiple VAGINAL HYSTERECTOMY Current Outpatient Medications Medication Sig Phentermine HCl (ADIPEX-P) 37.5 mg tablet Take 1 tablet by mouth once daily for 90 days. BMI 38.28 dulaglutide (TRULICITY) 1.5 mg/0.5 mL pen injector Inject 1.5 mg subcutaneously one time a week. Inject dose once per week. Discard Pen After sulfamethoxazole-trimethoprim (BACTRIM DS) 800-160 mg per tablet Take 1 tablet by mouth two times a day for 10 days. traZODone (DESYREL) 50 mg tablet Take 1-2 tablets by mouth daily at bedtime. For insomnia clonazePAM (KLONOPIN) 1 mg tablet Take 0.5-1 tablets by mouth two times a day as needed for anxiety for up to 30 days. for insomnia. ondansetron (ZOFRAN) 8 mg tablet Take 1 tablet by mouth every 8 hours as needed for nausea/vomiting. (Patient not taking: Reported on 10/06/2024) albuterol HFA (PROVENTIL HFA, VENTOLIN HFA) 90 mcg/actuation inhaler Inhale 2 Puffs as instructed every 4 hours as needed for wheezing/shortness of breath. albuterol (PROVENTIL) 2.5 mg /3 mL (0.083 %) nebulizer solution Use 3 mL via nebulizer every 4 hours as needed for wheezing/shortness of breath. albuterol HFA (PROVENTIL HFA, VENTOLIN HFA) 90 mcg/actuation inhaler Inhale 2 Puffs as instructed every 4 hours as needed for wheezing/shortness of breath. diclofenac (VOLTAREN ARTHRITIS PAIN) 1 % topical gel Apply 2 g to affected area three times a day as needed. tiZANidine (ZANAFLEX) 4 mg tablet Take 1 tablet by mouth every 8 hours as needed (muscle spasms). Cholecalciferol, Vitamin D3, 125 mcg (5,000 unit) cap Take 1 capsule by mouth every morning. In addition to 1,000 international unit(s) every morning vitamin D3-vitamin K2, MK4, 1,000-100 unit-mcg tab Take 1 tablet by mouth every morning. In addition to 5,000 units levothyroxine (SYNTHROID) 88 mcg tablet Take 1 tablet by mouth daily before breakfast. and skip 1 day weekly. cyanocobalamin 1,000 mcg/mL Inject 1 mL intramuscularly one time a week for 30 days, THEN 1 mL every 2 weeks for 60 days, THEN 1 mL once every month. dextroamphetamine-amphetamine (ADDERALL) 10 mg tablet Take 1 tablet by mouth once daily for 30 days. (Patient not taking: Reported on 10/06/2024) triamcinolone acetonide (KENALOG) 0.5 % cream Apply 1 application to affected area daily at bedtime. On left lower leg skin lesion at ankle. Apply sparingly. Avoid face/skin fold. Syringe with Needle, Safety (SAFETY-NAVDEEP 10CC SYR 21GX1.5) 10 mL 21 gauge x 1 1/2 syrg 1 Syringe as directed. vitamin b complex (B COMPLETE) tab Take 1 tablet by mouth once daily. No current facility-administered medications for this visit. ALLERGIES Allergen Reactions Aleve [Naproxen Sod* Vomiting Ibuprofen without problems Vomiting with Aleve with one time use Compazine [Prochlor* Mental Status Change Menthol Rash Metformin GI Upset Morphine (Pf) Other: See Comments Respiratory depression Penicillins Swelling Adhesive Rash SOCIAL HISTORY[1] ROS: See HIP PE: BP 126/80 Pulse 60 Temp (Src) 96.7 (Left Tympanic) Resp 16 Wt 192 lb (87.1kg) LMP 05/30/2019 Gen: A&OX3, NAD, non-toxic appearing HEENT: PERRLA, EOMs intact b/l, nares without drainage, pharynx without erythema, exudate, lesions, or drainage. Uvula midline. Neck: No LAD, no thyromegaly, no meningismus. CV: RRR, no murmur Lungs: CTA b/l, no wheezing Skin: infected sebaceous cyst right inner upper thigh without drainage or fluctuance but with pain and erythema No edema legs, normal peripheral pulses Appears fatigued ASSESSMENT/PLAN: 1. Myalgia - ICD9: 729.1, ICD10: M79.10 (primary diagnosis) Check labs Follow up with Neurologist that wants to start her on pyrostigmine for concerns for Myasthenia Gravis. - THYROID STIMULATING HORMONE - T4 FREE/FREE THYROXINE - T3, FREE - COMPREHENSIVE METABOLIC PANEL - CORTISOL, SERUM - VITAMIN D 25 HYDROXY - VITAMIN B12 - MAGNESIUM - VITAMIN C 2. Obesity, Class II, BMI 35-39.9 - ICD9: 278.00, ICD10: E66.812 Weight decreasing - Behavioral intervention, - Eat well program, and - Continue current medications - PHENTERMINE 37.5 MG TABLET 3. IFG (impaired fasting glucose) - ICD9: 790.21, ICD10: R73.01 Recheck labs - DULAGLUTIDE 1.5 MG/0.5 ML SUBCUTANEOUS PEN INJECTOR - HEMOGLOBIN A1C - VITAMIN C 4. Ptosis, left eyelid - ICD9: 374.30, ICD10: H02.402 Check labs Follow up with Neurologist that wants to start her on pyrostigmine for concerns for Myasthenia Gravis. 5. Fatigue, unspecified type - ICD9: 780.79, ICD10: R53.83 Check labs Follow up with Neurologist that wants to start her on pyrostigmine for concerns for Myasthenia Gravis. - THYROID STIMULATING HORMONE - T4 FREE/FREE THYROXINE - T3, FREE - COMPREHENSIVE METABOLIC PANEL - CORTISOL, SERUM - VITAMIN D 25 HYDROXY - VITAMIN B12 - MAGNESIUM - VITAMIN C 6. Dyslipidemia - ICD9: 272.4, ICD10: E78.5 - Control undetermined, due for labs - Continue current medications - Counseled on healthy diet and regular exercise - Discussed need for and benefit of weight loss. BMI 37.50 kg/(m^2) - LIPID PANEL, FASTING 7. Infected sebaceous cyst - ICD9: 706.2, ICD10: L72.3, L08.9 - Begin treatment with Trimethoprim-sulfamethozazole (Bactrim) 2 DS PO BID F/u with surgeon if not improved - SULFAMETHOXAZOLE 800 MG-TRIMETHOPRIM 160 MG TABLET 8. Situational insomnia - ICD9: 307.41, ICD10: F51.09 rx to start as below She doesn't want to start on SSRI F/u in 2-3 months in office - TRAZODONE 50 MG TABLET 9. PRASHANTH (generalized anxiety disorder) - ICD9: 300.02, ICD10: F41.1 rx to start as below She doesn't want to start on SSRI F/u in 2-3 months in office - CLONAZEPAM 1 MG TABLET 10. Situational anxiety - ICD9: 300.09, ICD10: F41.8 rx to start as below She doesn't want to start on SSRI F/u in 2-3 months in office - CLONAZEPAM 1 MG TABLET Jose Luis Toledo DO PDMP website checked and validated. All prescriptions have been APPROPRIATELY filled. No suspicious activity was identified. 01/06/2025 by Jose Luis Toledo DO Return if no improvement. Follow up with Jose Luis Toledo DO. To ER if develops chest pain, shortness of breath. Discussed risks, benefits, alternatives, and potential side effects of medications. Patient/Guardian expressed understanding and agreed with the plan. See patient instructions. Jose Luis Toledo DO [address] [place] [address] [1] Social History Tobacco Use Smoking status: Never Smokeless tobacco: Never Vaping Use Vaping status: Never Used Substance Use Topics Alcohol use: Yes Comment: twice a year-socially Drug use: No documented in this encounter [facility] 12-21-2024 Evaluation note Diagnosis Onset Date Resolution Infected lesion of skin acute A ugust 2024 4:37pm Encounter for routine gynecological examination noneactive December 22 12:33pm [facility] Work Phone: 1(372) 715-815108-27-2025 Evaluation note* Diagnosis Onset Date Resolution Status Admit Date Infected lesion of skin acute A ugust 2024 4:37pm Infected lesion of skin acute A ugust 2024 12:33pm Possible exposure to STD acute December 22, 2024 12:33pm Urinary frequency acute December 22, 2024 12:33pm Encounter for routine gynecological examination noneactive December 22, 2024 12:33pm [facility] Work Phone: 1(592) 874-586108-27-2025 Evaluation note* Diagnosis Onset Date Resolution Status Admit Date Infected lesion of skin acute A ugust 2024 4:37pm Infected lesion of skin acute A ugust 2024 12:33pm Possible exposure to STD acute December 22, 2024 12:33pm Urinary frequency acute December 22, 2024 12:33pm Encounter for routine gynecological examination noneactive December 22, 2024 12:33pm Ocular myasthenia gravis acute January 05, 2025 8:12am Ptosis acute December 8:12am Cerebral aneurysm chronic Septemb er 2024 8:12am Migraine headache with aura chronic January 05, 2025 8:12am [facility] Work Phone: [phone] [id number] NoteHNO ID: [id number] Author: BRANDI QUINTEROS APRN.PRINTING EQUIPMENT MECHANIC APPRENTICE Service: ? 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 Patient/authorized sales representative [employer] agreed to proceed HPI: Sammy Redd is a 44-year-old female with a history of anxiety, presenting for anxiety management and medication refills. Anxiety: - Increased anxiety and panic over the past few years, worsening recently. - Ativan taken once daily, primarily for sleep; provides some relief but not complete. - Tried BuSpar, felt it worsened symptoms. - Hydroxyzine caused excessive drowsiness. - Hesitant to start daily medication due to concerns about weight gain and previous side effects. - Previous trials of Lexapro, Celexa, and Prozac; Celexa was well-tolerated. - Attends weekly counseling sessions, which are beneficial. - Stressors primarily related to marital issues; feels safe at home. Trying to stick out her marriage until youngest graduates high school which is 3 more years. - Denies depression. Migraine: - Migraine x2 days, with heaviness over the bridge of the nose and nausea. - Taking Fioricet with some relief. - Noted worsening of myasthenia gravis symptoms during migraines. Weight Loss: - Sammy has lost nearly 10 lbs over the past 3 months. - Taking Adipex and Trulicity for weight management and insulin resistance. No other concerns or complaints today. Previous Medical History PAST MEDICAL HISTORY Diagnosis Date Anesthesia states mom had issues in 2013 leading to air emboli after surgery. pt herself has had no issues. Anxiety Cerebral aneurysm (HCC) 2015 just watching scanned last 2021 - Dr. Oneal Complicated migraine Endometriosis 75% improvement in abdominal pain post lap surgery Fibromyalgia Hypothyroidism IBS (irritable bowel syndrome) Insulin resistance Kidney stone Lactose intolerance in adult Left thyroid nodule 12/2020 repeat thyroid US 12/2021 Low HDL (under 40) Low serum progesterone worsening symptoms with progesterone rx Lumbar disc disease 05/13/2010 Migraines CADENCE (obstructive sleep apnea) Last polysomnogram in 2012, last use in 2012 Personal history of kidney stones Polycystic ovary syndrome 06/19/2010 Protein S deficiency (HCC) 2007 clotting disorder (just had APPT drawn - in [facility] - [facility]) PUD (peptic ulcer disease) 2010 treated [...] PYELOTOMY W/REMOVAL CALCULUS 04/27/2008 multiple VAGINAL HYSTERECTOMY Family History FAMILY HISTORY Problem Relation Age of Onset Breast Cancer Mother 39 Arthritis Mother Fibromyalgia other (irregular heartbeat) Mother Arthritis Father RA Thyroid Father Hypertension Father Thyroid Cancer Sister Diabetes Brother type 1 Diabetes Brother Type 1 Hypertension Maternal Grandmother Alzheimer's Disease Maternal Grandmother Arthritis Maternal Grandmother other (dementia) Maternal Grandmother Stroke Maternal Grandfather ADD/ADHD Daughter other (Eosinophilic esophagitis) Son other (Abdominal migraines) Son Patient Allergies ALLERGIES Allergen Reactions Aleve [Naproxen Sod* Vomiting Ibuprofen without problems Vomiting with Aleve with one time use Compazine [Prochlor* Mental Status Change Menthol Rash Metformin GI Upset Morphine (Pf) Other: See Comments Respiratory depression Penicillins Swelling Adhesive Rash Current Medications Current Outpatient Medications on File Prior to Visit Medication Sig dulaglutide (TRULICITY) 0.75 mg/0.5 mL pen injector Inject 0.75 mg subcutaneously one time a week. Inject dose once per week. Discard Pen After ondansetron (ZOFRAN) 8 mg tablet Take 1 tablet by mouth every 8 hours as needed for nausea/vomiting. albuterol HFA (PROVENTIL HFA, VENTOLIN HFA) 90 mcg/actuation inhaler Inhale 2 Puffs as instructed every 4 hours as needed for wheezing/shortness of breath. albuterol (PROVENTIL) 2.5 mg /3 mL (0.083 %) nebulizer solution Use 3 mL via nebulizer every 4 hours as needed for wheezing/shortness of breath. benzonatate (TESSALON PERLE) 100 mg caps (more content not included)...[facility]06-12-2025 History of Present illness Narrative* 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, EMORY.PRINTING EQUIPMENT MECHANIC APPRENTICE - 10/06/2024 9:05 AM EDT 10/06/2024 Recording using ambient [employer] software for draft documentation of the visit was discussed with the patient/authorized sales representative marine supplies; all questions welcomed and answered. Patient/authorized sales representative [employer] agreed to proceed HPI: Sammy Redd is a 44-year-old female with a history of anxiety, presenting for anxiety management and medication refills. Anxiety: - Increased anxiety and panic over the past few years, worsening recently. - Ativan taken once daily, primarily for sleep; provides some relief but not complete. - Tried BuSpar, felt it worsened symptoms. - Hydroxyzine caused excessive drowsiness. - Hesitant to start daily medication due to concerns about weight gain and previous side effects. - Previous trials of Lexapro, Celexa, and Prozac; Celexa was well-tolerated. - Attends weekly counseling sessions, which are beneficial. - Stressors primarily related to marital issues; feels safe at home. Trying to stick out her marriage until youngest graduates high school which is 3 more years. - Denies depression. Migraine: - Migraine x2 days, with heaviness over the bridge of the nose and nausea. - Taking Fioricet with some relief. - Noted worsening of myasthenia gravis symptoms during migraines. Weight Loss: - Sammy has lost nearly 10 lbs over the past 3 months. - Taking Adipex and Trulicity for weight management and insulin resistance. No other concerns or complaints today. Previous Medical History PAST MEDICAL HISTORY Diagnosis Date Anesthesia states mom had issues in 2013 leading to air emboli after surgery. pt herself has had no issues. Anxiety Cerebral aneurysm (HCC) 2015 just watching scanned last 2021 - Dr. Oneal Complicated migraine Endometriosis 75% improvement in abdominal pain post lap surgery Fibromyalgia Hypothyroidism IBS (irritable bowel syndrome) Insulin resistance Kidney stone Lactose intolerance in adult Left thyroid nodule 12/2020 repeat thyroid US 12/2021 Low HDL (under 40) Low serum progesterone worsening symptoms with progesterone rx Lumbar disc disease 05/13/2010 Migraines CADENCE (obstructive sleep apnea) Last polysomnogram in 2012, last use in 2012 Personal history of kidney stones Polycystic ovary syndrome 06/19/2010 Protein S deficiency (HCC) 2007 clotting disorder (just had APPT drawn - in [facility]) PUD (peptic ulcer disease) 2009 treated [...] PYELOTOMY W/REMOVAL CALCULUS 04/27/2008 multiple VAGINAL HYSTERECTOMY Family History FAMILY HISTORY Problem Relation Age of Onset Breast Cancer Mother 39 Arthritis Mother Fibromyalgia other (irregular heartbeat) Mother Arthritis Father RA Thyroid Father Hypertension Father Thyroid Cancer Sister Diabetes Brother type 1 Diabetes Brother Type 1 Hypertension Maternal Grandmother Alzheimer's Disease Maternal Grandmother Arthritis Maternal Grandmother other (dementia) Maternal Grandmother Stroke Maternal Grandfather ADD/ADHD Daughter other (Eosinophilic esophagitis) Son other (Abdominal migraines) Son Patient Allergies ALLERGIES Allergen Reactions Aleve [Naproxen Sod* Vomiting Ibuprofen without problems Vomiting with Aleve with one time use Compazine [Prochlor* Mental Status Change Menthol Rash Metformin GI Upset Morphine (Pf) Other: See Comments Respiratory depression Penicillins Swelling Adhesive Rash Current Medications Current Outpatient Medications on File Prior to Visit Medication Sig dulaglutide (TRULICITY) 0.75 mg/0.5 mL pen injector Inject 0.75 mg subcutaneously one time a week. Inject dose once per week. Discard Pen After ondansetron (ZOFRAN) 8 mg tablet Take 1 tablet by mouth every 8 hours as needed for nausea/vomiting. albuterol HFA (PROVENTIL HFA, VENTOLIN HFA) 90 mcg/actuation inhaler Inhale 2 Puffs as instructed every 4 hours as needed for wheezing/shortness of breath. albuterol (PROVENTIL) 2.5 mg /3 mL (0.083 %) nebulizer solution Use 3 mL via nebulizer every 4 hours as needed for wheezing/shortness of breath. benzonatate (TESSALON PERLE) 100 mg capsule Take 1 capsule by mouth three times a day as needed. albuterol HFA (PROVENTIL HFA, VENTOLIN HFA) 90 mcg/actuation inhaler Inhale 2 Puffs as instructed every 4 hours as needed for wheezing/shortness of breath. diclofenac (VOLTAREN ARTHRITIS PAIN) 1 % topical gel Apply 2 g to affected area three times a day as needed. tiZANidine (ZANAFLEX) 4 mg tablet Take 1 tablet by mouth every 8 hours as needed (muscle spasms). Insulin [place], Disposable, (PEN NEEDLE) 29 gauge x 1/2 1 Each once daily. Cholecalciferol, Vitamin D3, 125 mcg (5,000 unit) cap Take 1 capsule by mouth every morning. In addition to 1,000 international unit(s) every morning vitamin D3-vitamin K2, MK4, 1,000-100 unit-mcg tab Take 1 tablet by mouth every morning. In addition to 5,000 units levothyroxine (SYNTHROID) 88 mcg tablet Take 1 tablet by mouth daily before breakfast. and skip 1 day weekly. naltrexone 2 mg tablet Take 1 tablet by mouth once daily. liraglutide (VICTOZA) 0.6 mg/ 0.1 ml subcutaneous pen injector Inject 0.6 mg daily via pen cyanocobalamin 1,000 mcg/mL Inject 1 mL intramuscularly one time a week for 30 days, THEN 1 mL every 2 weeks for 60 days, THEN 1 mL once every month. dextroamphetamine-amphetamine (ADDERALL) 10 mg tablet Take 1 tablet by mouth once daily for 30 days. triamcinolone acetonide (KENALOG) 0.5 % cream Apply 1 application to affected area daily at bedtime. On left lower leg skin lesion at ankle. Apply sparingly. Avoid face/skin fold. Syringe with Needle, Safety (SAFETY-NAVDEEP 10CC SYR 21GX1.5) 10 mL 21 gauge x 1 1/2 syrg 1 Syringe as directed. vitamin b complex (B COMPLETE) tab Take 1 tablet by mouth once daily. ondansetron orally disintegrating (ZOFRAN ODT) 4 mg disintegrating tablet Take 1 tablet by mouth every 6 hours as needed for Nausea/Vomiting. No current facility-administered medications on file prior to visit. Social History Social History Tobacco Use Smoking status: Never Smokeless tobacco: Never Vaping Use Vaping status: Never Used Substance Use Topics Alcohol use: Yes Comment: twice a year-socially Drug use: No Review of Systems: Constitutional: (+) insomnia Head: (+) migraine, (+) facial pressure Gastrointestinal: (+) nausea Psychiatric: (+) anxiety, (+) panic, (+) restlessness, (-) depressed mood Physical Exam: BP 126/88 (BP Site: Left Arm, BP Position: Sitting, BP Cuff Size: Large Adult) Pulse 82 Wt 89.1kg (196 lb 7.5 oz) LMP 05/30/2019 (Exact Date) SpO2 98% BMI 38.37 kg/m GENERAL: NAD, alert and oriented SKIN: unremarkable, no rash or skin lesions. LUNGS: Clear to auscultation bilaterally, no wheezes/rhonchi/rales. HEART: Regular rate and rhythm, no murmurs. No ectopy. EXTREMITIES: Normal, No deformities, No skin discoloration, No edema. NEURO: Awake, alert and oriented x3, cranial nerves II-XII grossly intact, normal gait, no involuntary motions Diagnostics reviewed: Assessment/Plan: 1. Obesity, Class II, BMI 35-39.9 (E66.812) - Weight decreased by almost 10 lbs over the past 3 months. - Refilled Adipex. 2. Anxiety disorder, unspecified type (F41.9) 3. PRASHANTH (generalized anxiety disorder) (F41.1) 4. Situational anxiety (F41.8) - Anxiety and panic symptoms are worsening; Ativan 1 mg PO daily provides partial relief but is insufficient for current symptomatology. - Previous trials of BuSpar and hydroxyzine were ineffective or poorly tolerated. - Initiated Celexa 10 mg PO daily; discussed that it may take 4-6 weeks to observe full therapeuticeffects. - Refilled Ativan 1 mg PO daily; advised continuation for acute anxiety episodes and sleep disturbances. - Patient is engaged in weekly counseling sessions, which are beneficial. 5. Migraine without aura, intractable, without status migrainosus (G43.019) - Current migraine episode lasting 2 days, partially managed with Fioricet. - Administered Toradol injection for acute relief in office today - Discussed potential stress-related etiology; Celexa may contribute to long- term stress reduction. 6. IFG (impaired fasting glucose) (R73.01) 7. Insulin resistance (E88.819) - Managed with Trulicity 1.5 mg; refilled prescription. - Discussed potential side effects with dose adjustments. Follow-up in 4-6 weeks to see how Celexa is working, sooner if needed. Prescription instructions reviewed with patient as applicable. Potential red flag symptoms discussed with the patient. Reviewed appropriate action plan to take if red flag symptoms occur. Patient agreeable to treatment plan. Orders placed in this encounter: Office Visit on 10/06/24 Phentermine HCl (ADIPEX-P) 37.5 mg tablet LORazepam (ATIVAN) 1 mg tablet citalopram hydrobromide (CELEXA) 10 mg tablet dulaglutide (TRULICITY) 1.5 mg/0.5 mL pen injector keTORolac 30 mg injection (Toradol) 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 APRN.PRINTING EQUIPMENT MECHANIC APPRENTICE documented [facility] Telephone encounter Note * Telephone Encounter - Rogers Munoz LPN - 08/22/2024 6:21 PM EDT Prescription Refill Information The patient has been identified by name and date of : Yes Caregiver verified no other encounters exist for this prescription request: Yes Caregiver confirmed with patient/requestor that no other refills are due, in the near future, with this provider at this time: Yes The last office visit in the department: 07/07/24 Does the patient have a future office visit with this provider/department: Yes, 10/06/24 Requested Prescriptions Pending Prescriptions Disp Refills dulaglutide (TRULICITY) 0.75 mg/0.5 mL pen injector 3 mL 1 Sig: Inject 0.75 mg subcutaneously one time a week. Inject dose once per week. Discard Pen After Rogers Munoz LPN August 22, 2024 6:21 PM [facility]04-28-2025 Miscellaneous Notes* Telephone Encounter - Rogers Munoz LPN - 08/22/2024 6:21 PM EDT Prescription Refill Information The patient has been identified by name and date of : Yes Caregiver verified no other encounters exist for this prescription request: Yes Caregiver confirmed with patient/requestor that no other refills are due, in the near future, with this provider at this time: Yes The last office visit in the department: 07/07/24 Does the patient have a future office visit with this provider/department: Yes, 10/06/24 Requested Prescriptions Pending Prescriptions Disp Refills dulaglutide (TRULICITY) 0.75 mg/0.5 mL pen injector 3 mL 1 Sig: Inject 0.75 mg subcutaneously one time a week. Inject dose once per week. Discard Pen After Rogers Munoz LPN August 22, 2024 6:21 PM documented in this encounterC[facility]04-[facility] Telephone encounter Note * Telephone Encounter - Giana Alicea MA - 08/11/2024 9:05 AM EDT Pt informed, verbalized understanding. Pt reports she is feeling much better. Giana Alicea MA [facility]04-17-2025 Miscellaneous Notes* Telephone Encounter - Giana Alicea MA - 08/11/2024 9:05 AM EDT Pt informed, verbalized understanding. Pt reports she is feeling much better. Giana Alicea MA * Telephone Encounter - Jose Luis Toledo DO - 08/10/2024 10:08 PM EDT Please call and make sure she is aware that CT of her chest was overall normal. No concerns If continues to have symptoms of lung concerns, then will need to get her in with sanitation inspector Jose Luis Toledo DO documented in this encounterC[facility]04-[facility] Telephone encounter Note * Telephone Encounter - Jose Luis Toledo DO - 08/10/2024 10:08 PM EDT Please call and make sure she is aware that CT of her chest was overall normal. No concerns If continues to have symptoms of lung concerns, then will need to get her in with sanitation inspector Jose Luis Toledo DO [facility]04-03-2025 History of Present illness Narrative* Evens Stacy RT(R) - 07/28/2024 8:40 AM EDT Radiology Service Progress Note PATIENT NAME: Sammy Redd DATE OF SERVICE: July 28, 2024 TIME: 1:30 PM PATIENT IDENTITY VERIFICATION COMPLETED USING TWO (2) IDENTIFIERS: Name and Date of confirmedby patient verbally. FALL SCREENING: Has the patient had 2 falls in the last year or 1 fall with injury or currently using an Ambulatory Assistive Device (Walker, Cane, Wheelchair, Crutches, etc.)? No PATIENT GENDER DATA: Assigned female at . status: : No status:NO. PATIENT RELEVANT IMPLANT DATA REVIEWED: Yes PATIENT PRESENTS WITH AN IMPLANTABLE OR ATTACHED DRUG INSPECTOR: No RADIOLOGY DEPARTMENT: CT; Exam(s) Completed: Chest PERIPHERAL IV DATA: Not applicable SIGNED BY: MEAGHAN Becerril) July 28, 2024 1:30 PM documented in this encounterC[facility]04-03-2025 NoteHNO ID: [id number] Author: EVENS STACY RT(R) Service: ? Author Type: [place] [employer] Picker Type: Progress Notes Filed: 07/28/2024 13:30 Note Text: Radiology Service Progress Note PATIENT NAME: Sammy Redd DATE OF SERVICE: July 28, 2024 TIME: 1:30 PM PATIENT IDENTITY VERIFICATION COMPLETED USING TWO (2) IDENTIFIERS: Name and Date of confirmed by patient verbally. FALL SCREENING: Has the patient had 2 falls in the last year or 1 fall with injury or currently using an Ambulatory Assistive Device (Walker, Cane, Wheelchair, Crutches, etc.)? No PATIENT GENDER DATA: Assigned female at . status: : No status: NO. PATIENT RELEVANT IMPLANT DATA REVIEWED: Yes PATIENT PRESENTS WITH AN IMPLANTABLE OR ATTACHED DRUG INSPECTOR: No RADIOLOGY DEPARTMENT: CT; Exam(s) Completed: Chest PERIPHERAL IV DATA: Not applicable SIGNED BY: Evens Figueroa, RT(R) July 28, 2024 1:30 [facility]03-19-2025 Telephone encounter Note* Telephone Encounter - Giana Alicea MA - 07/13/2024 1:15 PM EDT Pt informed via MC message Giana Alicea MA [facility]03-19-2025 Miscellaneous Notes* Telephone Encounter - Giana Alicea MA - 07/13/2024 1:15 PM EDT Pt informed via MC message Giana Alicea MA * Telephone Encounter - Jose Luis Toledo DO - 07/13/2024 1:03 PM EDT Please let her know that her recent labs and UA show no signs of kidney disease or concern. Her chest xray was also normal If still having any lung symptoms, we will need to do a CT chest Jose Luis Toledo DO * Telephone Encounter - Giana Alicea MA - 07/12/2024 7:18 AM EDT Please see pt MC message Hello, just checking if my kidney function is ok? I seen that my eGFR test is low. Is that possiblydue to the pneumonia? I'm still not feeling well. Breathing alittle better but still having breathing attacks out of now where. Just making sure this isn't something I need to be super concerned about. Having middle back pain is why she checked my urine and blood test for kidneys. You said to checkin with you when I was in to see you. Thanks! documented in this encounterC[facility]03-[facility]-2025 Telephone encounter Note * Telephone Encounter - Jose Luis Toledo DO - 07/13/2024 1:03 PM EDT Please let her know that her recent labs and UA show no signs of kidney disease or concern. Her chest xray was also normal If still having any lung symptoms, we will need to do a CT chest Jose Luis Toledo DO [facility]03-18-2025 Telephone encounter Note* Telephone Encounter - Giana Alicea MA - 07/12/2024 7:18 AM EDT Please see pt message Hello, just checking if my kidney function is ok? I seen that my eGFR test is low. Is that possiblydue to the pneumonia? I'm still not feeling well. Breathing alittle better but still having breathing attacks out of now where. Just making sure this isn't something I need to be super concerned about. Having middle back pain is why she checked my urine and blood test for kidneys. You said to checkin with you when I was in to see you. Thanks! [facility]03-18-20[facility] Telephone encounter Note* Telephone Encounter - Giana Alicea MA - 07/12/2024 7:16 AM EDT Turned into TE Giana Alicea MA [facility]03-18-2025 Miscellaneous Notes* Telephone Encounter - Giana Alicea MA - 07/12/2024 7:16 AM EDT Turned into TE Giana Alicea MA documented in this encounterC[facility]03-13-2025 Instructions* Patient Instructions* Dee Flores APRN.PRINTING EQUIPMENT MECHANIC APPRENTICE - 07/07/2024 11:28 AM EDT Get a minimum of 60-80oz of water daily. Do at least 2 of the IV hydration packets as well. Ok to take your Diflucan. Ok to swish wish warm salt water, peroxide and water. documented in this encounterC[facility]03-13-2025 NoteHNO ID: [id number] Author: DEE FLORES APRN.JOI Service: ? Author Type: Nurse Practitioner Type: Progress Notes Filed: 07/07/2024 13:59 Note Text: Chief Complaint Patient presents with: Follow Up: Wheeze, SOB, chest discomfort, feels nauseous AND bad heartburn, feels a little better HPI Sammy Redd is a 44 year old female who presents here today for Above Complaints.. Per visit with [facility] on 06/28/2024: Cough Associated symptoms include chills, ear pain (pressure bilateral ears), headaches, sore throat, myalgias, shortness of breath and wheezing. Pt is a 44 y/o female who presents with non-productive cough, chest tightness, wheezing and shortness of breath x 2 days. Pt reports mild nasal congestion and bilateral ear pressure. Pt reports that she is concerned with bronchitis as she has had similar symptoms with bronchitis in the past. No reports of fever at home but does report body aches and chills. Pt reports shortness of breath at rest and on exertion. Pt has tried otc motrin and robitussin with minimal relief. ASSESSMENT/PLAN: 1. Bronchitis - ICD9: 490, ICD10: J40 (primary diagnosis) - PREDNISONE 20 MG TABLET - ALBUTEROL SULFATE HFA 90 MCG/ACTUATION AEROSOL INHALER - INHALATIONAL SPACING DEVICE 2. Viral URI with cough - ICD9: 465.9, ICD10: J06.9 - Discussed viral etiology and rationale for treatment. - Symptomatic treatment with prn analgesia - Supportive care with fluids and rest - The patient may also use OTC decongestants prn, OTC cough and cold meds as needed, and warm salt water gargles, throat lozenges and/or OTC throat spray as needed. - recommended COVID/flu/RSV testing, pt declined at this time. - PREDNISONE 20 MG TABLET - ALBUTEROL SULFATE HFA 90 MCG/ACTUATION AEROSOL INHALER - INHALATIONAL SPACING DEVICE Marielle Yang Signature: Demetris Bradford Date: 06/28/2024 Time: 4:47 PM Per visit with myself on 06/30/2024: Feels like she is sicker than she has ever been. Extremely weak. Almost done with the steroid and things are just getting worse. Albuterol helps very temporarily. Significant SOB, shooting pain through her chest into her back. Just talking she feels SOB. Persistent dry cough, feels extremely restricted. Ears are achy but don't necessarily hurt. Hands and feet are on fire, they're very hot. Nose is running but she's not stuffy. Is taking Tylenol and motrin PM, is exhausted but can't sleep. Tussin for the cough, helps temporarily. General Appearance: Well appearing, alert, in no acute distress, well-hydrated, well nourished.. Skin: skin warm, hands reddened. Head: Normocephalic, no masses, lesions, tenderness or abnormalities. Eyes: eyes glassy. Ears: External ears normal, canals clear. Nose/Sinuses: Nares normal, septum midline, mucosa normal, no drainage or sinus tenderness. Oropharynx: Lips, mucosa, and tongue normal, teeth and gums normal, oropharynx normal. Neck: 2+ bilateral submandibular lymphadenopathy. Lungs: Shortness of breath: At rest, Cough, difficulty to accurately assess due to coughing with deep breaths, expiratory wheeze throughout Heart: RRR without murmur, gallop, or rubs. No ectopy. Lymph Nodes: 2+ bilateral submandibular lymphadenopathy.. Psychiatric: pleasant, cooperative. ASSESSMENT/PLAN: 1. SOB (shortness of breath) - ICD9: 786.05, ICD10: R06.02 (primary diagnosis) Suspect pneumonia, possibly influenza or RSV Patient is aware of red flag s/s Supportive care - COVID AND INFLUENZA A/B AND RSV PCR, ROUTINE - BENZONATATE 100 MG CAPSULE - CODEINE 10 MG-GUAIFENESIN 100 MG/5 ML ORAL LIQUID - ALBUTEROL SULFATE CONCENTRATE 5 MG/ML(0.5 %) SOLUTION FOR NEBULIZATION - ALBUTEROL SULFATE CONCENTRATE 2.5 MG/0.5 ML SOLUTION FOR NEBULIZATION - FLUCONAZOLE 150 MG TABLET - NEBULIZER, WITH COMPRESSOR - XR CHEST 2V FRONTAL/LAT - PREDNISONE 10 MG TABLET 2. Wheeze - ICD9: 786.07, ICD10: R06.2 Suspect pneumonia, possibly influenza or RSV Patient is aware of red flag s/s Supportive care - COVID AND INFLUENZA A/B AND RSV PCR, ROUTINE - BENZONATATE 100 MG CAPSULE - CODEINE 10 MG-GUAIFENESIN 100 MG/5 ML ORAL LIQUID - ALBUTEROL SULFATE CONCENTRATE 5 MG/ML(0.5 %) SOLUTION FOR NEBULIZATION - ALBUTEROL SULFATE CONCENTRATE 2.5 MG/0.5 ML SOLUTION FOR NEBULIZATION - FLUCONAZOLE 150 MG TABLET - NEBULIZER, WITH COMPRESSOR - XR CHEST 2V FRONTAL/LAT - PREDNISONE 10 MG TABLET 3. Acute cough - ICD9: 786.2, ICD10: R05.1 Suspect pneumonia, possibly influenza or RSV Patient is aware of red flag s/s Supportive care - COVID AND INFLUENZA A/B AND RSV PCR, ROUTINE - BENZONATATE 100 MG CAPSULE - CODEINE 10 MG-GUAIFENESIN 100 MG/5 ML ORAL LIQUID - ALBUTEROL SULFATE CONCENTRATE 5 MG/ML(0.5 %) SOLUTION FOR NEBULIZATION - ALBUTEROL SULFATE CONCENTRATE 2.5 MG/0.5 ML SOLUTION FOR NEBULIZATION - FLUCONAZOLE 150 MG TABLET - NEBULIZER, WITH COMPRESSOR - XR CHEST 2V FRONTAL/LAT - PRED (more content not included)...[facility]03-13-2025 History of Present illness Narrative* Dee Flores APRN.PRINTING EQUIPMENT MECHANIC APPRENTICE - 07/07/2024 10:29 AM EDT Chief Complaint Patient presents with: Follow Up: Wheeze, SOB, chest discomfort, feels nauseous & bad heartburn, feels a little better HPI Sammy Redd is a 44 year old female who presents here today for Above Complaints.. Per visit with [facility] on 06/28/2024: Cough Associated symptoms include chills, ear pain (pressure bilateral ears), headaches, sore throat, myalgias, shortness of breath and wheezing. Pt is a 44 y/o female who presents with non-productive cough, chest tightness, wheezing and shortness of breath x 2 days. Pt reports mild nasal congestion and bilateral ear pressure. Pt reports that she is concerned with bronchitis as she has had similar symptoms with bronchitis inthe past. No reports of fever at home but does report body aches and chills. Pt reports shortness of breath at rest and on exertion. Pt has tried otc motrin and robitussin with minimal relief. ASSESSMENT/PLAN: 1. Bronchitis - ICD9: 490, ICD10: J40 (primary diagnosis) - PREDNISONE 20 MG TABLET - ALBUTEROL SULFATE HFA 90 MCG/ACTUATION AEROSOL INHALER - INHALATIONAL SPACING DEVICE 2. Viral URI with cough - ICD9: 465.9, ICD10: J06.9 - Discussed viral etiology and rationale for treatment. - Symptomatic treatment with prn analgesia - Supportive care with fluids and rest - The patient may also use OTC decongestants prn, OTC cough and cold meds as needed, and warm salt water gargles, throat lozenges and/or OTC throat spray as needed. - recommended COVID/flu/RSV testing, pt declined at this time. - PREDNISONE 20 MG TABLET - ALBUTEROL SULFATE HFA 90 MCG/ACTUATION AEROSOL INHALER - INHALATIONAL SPACING DEVICE Marielle Yang Signature: Demetris Bradford Date: 06/28/2024 Time: 4:47 PM Per visit with myself on 06/30/2024: Feels like she is sicker than she has ever been. Extremely weak. Almost done with the steroid and things are just getting worse. Albuterol helps very temporarily. Significant SOB, shooting pain through her chest into her back. Just talking she feels SOB. Persistent dry cough, feels extremely restricted. Ears are achy but don't necessarily hurt. Hands and feet are on fire, they're very hot. Nose is running but she's not stuffy. Is taking Tylenol and motrin PM, is exhausted but can't sleep. Tussin for the cough, helps temporarily. General Appearance: Well appearing, alert, in no acute distress, well-hydrated, well nourished.. Skin: skin warm, hands reddened. Head: Normocephalic, no masses, lesions, tenderness or abnormalities. Eyes: eyes glassy. Ears: External ears normal, canals clear. Nose/Sinuses: Nares normal, septum midline, mucosa normal, no drainage or sinus tenderness. Oropharynx: Lips, mucosa, and tongue normal, teeth and gums normal, oropharynx normal. Neck: 2+ bilateral submandibular lymphadenopathy. Lungs: Shortness of breath: At rest, Cough, difficulty to accurately assess due to coughing with deep breaths, expiratory wheeze throughout Heart: RRR without murmur, gallop, or rubs. No ectopy. Lymph Nodes: 2+ bilateral submandibular lymphadenopathy.. Psychiatric: pleasant, cooperative. ASSESSMENT/PLAN: 1. SOB (shortness of breath) - ICD9: 786.05, ICD10: R06.02 (primary diagnosis) Suspect pneumonia, possibly influenza or RSV Patient is aware of red flag s/s Supportive care - COVID & INFLUENZA A/B & RSV PCR, ROUTINE - BENZONATATE 100 MG CAPSULE - CODEINE 10 MG-GUAIFENESIN 100 MG/5 ML ORAL LIQUID - ALBUTEROL SULFATE CONCENTRATE 5 MG/ML(0.5 %) SOLUTION FOR NEBULIZATION - ALBUTEROL SULFATE CONCENTRATE 2.5 MG/0.5 ML SOLUTION FOR NEBULIZATION - FLUCONAZOLE 150 MG TABLET - NEBULIZER, WITH COMPRESSOR - XR CHEST 2V FRONTAL/LAT - PREDNISONE 10 MG TABLET 2. Wheeze - ICD9: 786.07, ICD10: R06.2 Suspect pneumonia, possibly influenza or RSV Patient is aware of red flag s/s Supportive care - COVID & INFLUENZA A/B & RSV PCR, ROUTINE - BENZONATATE 100 MG CAPSULE - CODEINE 10 MG-GUAIFENESIN 100 MG/5 ML ORAL LIQUID - ALBUTEROL SULFATE CONCENTRATE 5 MG/ML(0.5 %) SOLUTION FOR NEBULIZATION - ALBUTEROL SULFATE CONCENTRATE 2.5 MG/0.5 ML SOLUTION FOR NEBULIZATION - FLUCONAZOLE 150 MG TABLET - NEBULIZER, WITH COMPRESSOR - XR CHEST 2V FRONTAL/LAT - PREDNISONE 10 MG TABLET 3. Acute cough - ICD9: 786.2, ICD10: R05.1 Suspect pneumonia, possibly influenza or RSV Patient is aware of red flag s/s Supportive care - COVID & INFLUENZA A/B & RSV PCR, ROUTINE - BENZONATATE 100 MG CAPSULE - CODEINE 10 MG-GUAIFENESIN 100 MG/5 ML ORAL LIQUID - ALBUTEROL SULFATE CONCENTRATE 5 MG/ML(0.5 %) SOLUTION FOR NEBULIZATION - ALBUTEROL SULFATE CONCENTRATE 2.5 MG/0.5 ML SOLUTION FOR NEBULIZATION - FLUCONAZOLE 150 MG TABLET - NEBULIZER, WITH COMPRESSOR - XR CHEST 2V FRONTAL/LAT - PREDNISONE 10 MG TABLET 4. Fever, unspecified fever cause - ICD9: 780.60, ICD10: R50.9 Suspect pneumonia, possibly influenza or RSV Patient is aware of red flag s/s Supportive care - BENZONATATE 100 MG CAPSULE - CODEINE 10 MG-GUAIFENESIN 100 MG/5 ML ORAL LIQUID - ALBUTEROL SULFATE CONCENTRATE 5 MG/ML(0.5 %) SOLUTION FOR NEBULIZATION - ALBUTEROL SULFATE CONCENTRATE 2.5 MG/0.5 ML SOLUTION FOR NEBULIZATION - FLUCONAZOLE 150 MG TABLET - UA DIP, URINE (POC) - NEBULIZER, WITH COMPRESSOR - XR CHEST 2V FRONTAL/LAT - PREDNISONE 10 MG TABLET 5. Aches - ICD9: 780.96, ICD10: R52 Suspect pneumonia, possibly influenza or RSV Patient is aware of red flag s/s Supportive care - BENZONATATE 100 MG CAPSULE - CODEINE 10 MG-GUAIFENESIN 100 MG/5 ML ORAL LIQUID - ALBUTEROL SULFATE CONCENTRATE 5 MG/ML(0.5 %) SOLUTION FOR NEBULIZATION - ALBUTEROL SULFATE CONCENTRATE 2.5 MG/0.5 ML SOLUTION FOR NEBULIZATION - FLUCONAZOLE 150 MG TABLET - UA DIP, URINE (POC) - NEBULIZER, WITH COMPRESSOR - XR CHEST 2V FRONTAL/LAT - PREDNISONE 10 MG TABLET 6. Chills - ICD9: 780.64, ICD10: R68.83 Suspect pneumonia, possibly influenza or RSV Patient is aware of red flag s/s Supportive care - BENZONATATE 100 MG CAPSULE - CODEINE 10 MG-GUAIFENESIN 100 MG/5 ML ORAL LIQUID - ALBUTEROL SULFATE CONCENTRATE 5 MG/ML(0.5 %) SOLUTION FOR NEBULIZATION - ALBUTEROL SULFATE CONCENTRATE 2.5 MG/0.5 ML SOLUTION FOR NEBULIZATION - FLUCONAZOLE 150 MG TABLET - UA DIP, URINE (POC) - NEBULIZER, WITH COMPRESSOR - XR CHEST 2V FRONTAL/LAT - PREDNISONE 10 MG TABLET 7. Other chest pain - ICD9: 786.59, ICD10: R07.89 Suspect pneumonia, possibly influenza or RSV Patient is aware of red flag s/s Supportive care - BENZONATATE 100 MG CAPSULE - CODEINE 10 MG-GUAIFENESIN 100 MG/5 ML ORAL LIQUID - ALBUTEROL SULFATE CONCENTRATE 5 MG/ML(0.5 %) SOLUTION FOR NEBULIZATION - ALBUTEROL SULFATE CONCENTRATE 2.5 MG/0.5 ML SOLUTION FOR NEBULIZATION - FLUCONAZOLE 150 MG TABLET - NEBULIZER, WITH COMPRESSOR - XR CHEST 2V FRONTAL/LAT - PREDNISONE 10 MG TABLET 8. Urinary frequency - ICD9: 788.41, ICD10: R35.0 acute - Patient education for prevention given Dee Flores APRN.PRINTING EQUIPMENT MECHANIC APPRENTICE Per visit with PCP Dr. Toledo on 07/05/2024: Cough, chest congestion, present for the last 10 days, getting worse. Is using her albuterol inhaler for the wheezing. Getting some occasional shortness of breath with coughing. Hasn't been able to bring up any sputum. No nasal or ear or throat symptoms. Symptoms not improved much with prednisone- maybe 20% better. Getting some nausea. Was originally diagnosed with influenza A. Didn't take the Tamiflu medication that she was prescribed. Obesity, IFG, dysmetabolic syndrome, tolerating adipex but struggling to lose the weight. Knows that the prednisone that she had to take is also affecting her weight. Is interested in taking victoza which was approved by her insurance but the pharmacy doesn't have it available for her to use. Gen: A&OX3, NAD, non-toxic appearing HEENT: PERRLA, EOMs intact b/l, nares without drainage, pharynx without erythema, exudate, lesions,or drainage. Uvula midline. Neck: No LAD, no thyromegaly, no meningismus. CV: RRR, no murmur Lungs: wheezing diffusely, rhonchi bases of the lungs, no respiratory distress, she is coughing throughout the exam Central obesity No edema, normal peripheral pulses Skin: No rashes, lesions, or wounds on exposed skin. ASSESSMENT/PLAN: 1. Rhonchi at both lung bases - ICD9: 786.7, ICD10: R09.89 (primary diagnosis) Concerns for CAP with examination today in office Continue albuterol and mucinex Add on antibiotics- has a significant PCN allergy, will try to avoid the cephalosporins as well. F/u in office if not improving - ALBUTEROL SULFATE HFA 90 MCG/ACTUATION AEROSOL INHALER - ALBUTEROL SULFATE 2.5 MG/3 ML (0.083 %) SOLUTION FOR NEBULIZATION - SULFAMETHOXAZOLE 800 MG-TRIMETHOPRIM 160 MG TABLET - CLARITHROMYCIN 500 MG TABLET - XR CHEST 2V FRONTAL/LAT 2. Impaired concentration - ICD9: 799.51, ICD10: R41.840 rx refilled stable - LORAZEPAM 1 MG TABLET 3. Anxiety disorder, unspecified type - ICD9: 300.00, ICD10: F41.9 rx refilled, stable - LORAZEPAM 1 MG TABLET 4. PRASHANTH (generalized anxiety disorder) - ICD9: 300.02, ICD10: F41.1 rx refilled, stable - LORAZEPAM 1 MG TABLET 5. Situational anxiety - ICD9: 300.09, ICD10: F41.8 rx refilled, stable - LORAZEPAM 1 MG TABLET 6. Obesity, Class II, BMI 35-39.9 - ICD9: 278.00, ICD10: E66.812 Will try to start her on Victoza or Trulicity, need for additional weight loss. - PHENTERMINE 37.5 MG TABLET 7. Encounter for screening mammogram for malignant neoplasm of breast - ICD9: V76.12, ICD10: Z12.31 - MIRELLA SCREENING 8. Community acquired pneumonia, unspecified laterality - ICD9: 486, ICD10: J18.9 Concerns for CAP with examination today in office Continue albuterol and mucinex Add on antibiotics- has a significant PCN allergy, will try to avoid the cephalosporins as well. F/u in office if not improving - ALBUTEROL SULFATE HFA 90 MCG/ACTUATION AEROSOL INHALER - ALBUTEROL SULFATE 2.5 MG/3 ML (0.083 %) SOLUTION FOR NEBULIZATION - SULFAMETHOXAZOLE 800 MG-TRIMETHOPRIM 160 MG TABLET - CLARITHROMYCIN 500 MG TABLET - XR CHEST 2V FRONTAL/LAT 9. SOB (shortness of breath) - ICD9: 786.05, ICD10: R06.02 Concerns for CAP with examination today in office Continue albuterol and mucinex Add on antibiotics- has a significant PCN allergy, will try to avoid the cephalosporins as well. F/u in office if not improving - PREDNISONE 10 MG TABLET 10. Wheeze - ICD9: 786.07, ICD10: R06.2 Concerns for CAP with examination today in office Continue albuterol and mucinex Add on antibiotics- has a significant PCN allergy, will try to avoid the cephalosporins as well. F/u in office if not improving - PREDNISONE 10 MG TABLET Jose Luis Toledo, DO Currently: Bilateral mid back is killing her. Is very nauseated-wondering if this is because of recently starting the 2 antibiotics 2 days ago. Drinking a lot of water-mouth is extremely dry. Denies fever. SOB at times-inhaler and nebulizer are helpful. Doing nebulizer every 4 hours- this does help and makes her feel shaky. Past medical history, appointments, medications, allergies reviewed. Previous Medical History PAST MEDICAL HISTORY Diagnosis Date Anesthesia states mom had issues in 2013 leading to air emboli after surgery. pt herself has had no issues. Anxiety Cerebral aneurysm 2015 just watching scanned last 2021 - Dr. Oneal Complicated migraine Endometriosis 75% improvement in abdominal pain post lap surgery Fibromyalgia Hypothyroidism IBS (irritable bowel syndrome) Insulin resistance Kidney stone Lactose intolerance in adult Left thyroid nodule 12/2020 repeat thyroid US 12/2021 Low HDL (under 40) Low serum progesterone worsening symptoms with progesterone rx Lumbar disc disease 05/13/2010 Migraines CADENCE (obstructive sleep apnea) Last polysomnogram in 2012, last use in 2012 Personal history of kidney stones Polycystic ovary syndrome 06/19/2010 Protein S deficiency (HCC) 2008 clotting disorder (just had APPT drawn - in [facility] - [facility]) PUD (peptic ulcer disease) 2009 treated [...] PYELOTOMY W/REMOVAL CALCULUS 04/27/2008 multiple VAGINAL HYSTERECTOMY Family History FAMILY HISTORY Problem Relation Age of Onset Breast Cancer Mother 39 Arthritis Mother Fibromyalgia other (irregular heartbeat) Mother Arthritis Father RA Thyroid Father Hypertension Father Thyroid Cancer Sister Diabetes Brother type 1 Diabetes Brother Type 1 Hypertension Maternal Grandmother Alzheimer's Disease Maternal Grandmother Arthritis Maternal Grandmother other (dementia) Maternal Grandmother Stroke Maternal Grandfather ADD/ADHD Daughter other (Eosinophilic esophagitis) Son other (Abdominal migraines) Son Patient Allergies ALLERGIES Allergen Reactions Aleve [Naproxen Sod* Vomiting Ibuprofen without problems Vomiting with Aleve with one time use Compazine [Prochlor* Mental Status Change Menthol Rash Metformin GI Upset Morphine (Pf) Other: See Comments Respiratory depression Penicillins Swelling Adhesive Rash Current Medications Current Outpatient Medications on File Prior to Visit Medication Sig LORazepam (ATIVAN) 1 mg tablet Take 1 tablet by mouth two times a day as needed for anxiety for up to 90 days. Phentermine HCl (ADIPEX-P) 37.5 mg tablet Take 1 tablet by mouth once daily for 30 days. BMI 38.28 albuterol HFA (PROVENTIL HFA, VENTOLIN HFA) 90 mcg/actuation inhaler Inhale 2 Puffs as instructed every 4 hours as needed for wheezing/shortness of breath. albuterol (PROVENTIL) 2.5 mg /3 mL (0.083 %) nebulizer solution Use 3 mL via nebulizer every 4 hours as needed for wheezing/shortness of breath. sulfamethoxazole-trimethoprim (BACTRIM DS) 800-160 mg per tablet Take 1 tablet by mouth two times aday for 5 days. clarithromycin (BIAXIN) 500 mg Take 1 tablet by mouth two times a day for 10 days. dulaglutide (TRULICITY) 0.75 mg/0.5 mL pen injector Inject 0.75 mg subcutaneously one time a week. Inject dose once per week. Discard Pen After predniSONE (DELTASONE) 10 mg tablet Take 4 tabs daily for 3 days, then 2 tabs daily for 3 days, then 1 tab daily for 3 days with food. benzonatate (TESSALON PERLE) 100 mg capsule Take 1 capsule by mouth three times a day as needed. albuterol HFA (PROVENTIL HFA, VENTOLIN HFA) 90 mcg/actuation inhaler Inhale 2 Puffs as instructed every 4 hours as needed for wheezing/shortness of breath. diclofenac (VOLTAREN ARTHRITIS PAIN) 1 % topical gel Apply 2 g to affected area three times a day as needed. tiZANidine (ZANAFLEX) 4 mg tablet Take 1 tablet by mouth every 8 hours as needed (muscle spasms). Insulin [place], Disposable, (PEN NEEDLE) 29 gauge x 1/2 1 Each once daily. Cholecalciferol, Vitamin D3, 125 mcg (5,000 unit) cap Take 1 capsule by mouth every morning. In addition to 1,000 international unit(s) every morning vitamin D3-vitamin K2, MK4, 1,000-100 unit-mcg tab Take 1 tablet by mouth every morning. In addition to 5,000 units levothyroxine (SYNTHROID) 88 mcg tablet Take 1 tablet by mouth daily before breakfast. and skip 1 day weekly. naltrexone 2 mg tablet Take 1 tablet by mouth once daily. liraglutide (VICTOZA) 0.6 mg/ 0.1 ml subcutaneous pen injector Inject 0.6 mg daily via pen triamcinolone acetonide (KENALOG) 0.5 % cream Apply 1 application to affected area daily at bedtime. On left lower leg skin lesion at ankle. Apply sparingly. Avoid face/skin fold. Syringe with Needle, Safety (SAFETY-NAVDEEP 10CC SYR 21GX1.5) 10 mL 21 gauge x 1 1/2 syrg 1 Syringe as directed. vitamin b complex (B COMPLETE) tab Take 1 tablet by mouth once daily. ondansetron orally disintegrating (ZOFRAN ODT) 4 mg disintegrating tablet Take 1 tablet by mouth every 6 hours as needed for Nausea/Vomiting. cyanocobalamin 1,000 mcg/mL Inject 1 mL intramuscularly one time a week for 30 days, THEN 1 mL every 2 weeks for 60 days, THEN 1 mL once every month. dextroamphetamine-amphetamine (ADDERALL) 10 mg tablet Take 1 tablet by mouth once daily for 30 days. No current facility-administered medications on file prior to visit. Social History Social History Tobacco Use Smoking status: Never Smokeless tobacco: Never Vaping Use Vaping status: Never Used Substance Use Topics Alcohol use: Yes Comment: twice a year-socially Drug use: No Review of Symptoms REVIEW OF SYSTEMS See HPI, otherwise negative EXAM: BP 126/70 (BP Site: Left Arm, BP Position: Sitting, BP Cuff Size: Large Adult) Pulse 83 Temp 36.8 C (98.3 F) Wt 93 kg (205 lb 0.4 oz) LMP 05/30/2019 (Exact Date) SpO2 100% BMI 40.04 kg/m General Appearance:ill-appearing, alert, in no acute distress, well-hydrated, well nourished, flushed. Eyes: Anicteric sclera. Pupils are equally round and reactive to light. Extraocular movements are intact. . Ears: External ears normal, canals clear. Nose/Sinuses: Nares normal, septum midline, mucosa normal, no drainage or sinus tenderness. Oropharynx: Lips, mucosa, and tongue normal, teeth and gums normal, oropharynx normal. Neck: Supple, no adenopathy; thyroid symmetric, normal size, no bruits. Lungs: wheezes throughout, difficult to accurately assess due to coughing with deep breaths. Heart: RRR without murmur, gallop, or rubs. No ectopy. Psychiatric: pleasant, cooperative. Health Maintenance List Depression Screening Never done Hepatitis C Screening Never done HIV Screening Never done Hepatitis B Vaccine(1 of 3 - 19+ 3-dose series) Never done DTaP,Tdap,Td Vaccine(1 - Tdap) due on 07/21/2017 Mammogram Screening due on 06/11/2022 Influenza Vaccine(1) due on 10/24/2024 Covid-19 Vaccine(1 - season) due on 04/04/2025 Cervical Cancer Screening due on 06/25/2025 Annual PCP Team Chronic Disease Visit due on 07/07/2025 Data reviewed Previous records, office notes ASSESSMENT/PLAN: 1. Nausea - ICD9: 787.02, ICD10: R11.0 (primary diagnosis) Increase fluids and electrolytes Will watch for results of cxr she had done today-likely no changes in treatment secondary to results. Patient states PCP told her to have it completed 2 days after her appt and when she started the antibiotics, but suspect she misunderstood and it was supposed to be completed in 2 weeks. She is aware of red flag s/s - ONDANSETRON HCL 8 MG TABLET - COMPLETE BLOOD COUNT - COMPREHENSIVE METABOLIC PANEL - UA DIP, URINE (POC) 2. SOB (shortness of breath) - ICD9: 786.05, ICD10: R06.02 Increase fluids and electrolytes Will watch for results of cxr she had done today-likely no changes in treatment secondary to results. Patient states PCP told her to have it completed 2 days after her appt and when she started the antibiotics, but suspect she misunderstood and it was supposed to be completed in 2 weeks. She is aware of red flag s/s - PREDNISONE 10 MG TABLET - COMPLETE BLOOD COUNT - COMPREHENSIVE METABOLIC PANEL 3. Wheeze - ICD9: 786.07, ICD10: R06.2 Increase fluids and electrolytes Will watch for results of cxr she had done today-likely no changes in treatment secondary to results. Patient states PCP told her to have it completed 2 days after her appt and when she started the antibiotics, but suspect she misunderstood and it was supposed to be completed in 2 weeks. She is aware of red flag s/s - PREDNISONE 10 MG TABLET - COMPLETE BLOOD COUNT - COMPREHENSIVE METABOLIC PANEL 4. Bilateral flank pain - ICD9: 789.09, ICD10: R10.9 Increase fluids and electrolytes Will watch for results of cxr she had done today-likely no changes in treatment secondary to results. Patient states PCP told her to have it completed 2 days after her appt and when she started the antibiotics, but suspect she misunderstood and it was supposed to be completed in 2 weeks. She is aware of red flag s/s - COMPLETE BLOOD COUNT - COMPREHENSIVE METABOLIC PANEL - UA DIP, URINE (POC) Dee Flores APRN.PRINTING EQUIPMENT MECHANIC APPRENTICE documented [facility] History of Present illness Narrative* Jodie Knott RT(R) - 07/07/2024 9:50 AM EDT Radiology Service Progress Note PATIENT NAME: Sammy Redd DATE OF SERVICE: July 07, 2024 TIME: 9:45 AM PATIENT IDENTITY VERIFICATION COMPLETED USING TWO (2) IDENTIFIERS: Name and Date of confirmedby patient verbally. FALL SCREENING: Has the patient had 2 falls in the last year or 1 fall with injury or currently using an Ambulatory Assistive Device (Walker, Cane, Wheelchair, Crutches, etc.)? No PATIENT GENDER DATA: Assigned female at . status: : No status:NO. PATIENT RELEVANT IMPLANT DATA REVIEWED: Not Applicable PATIENT PRESENTS WITH AN IMPLANTABLE OR ATTACHED DRUG INSPECTOR: No RADIOLOGY DEPARTMENT: General X-ray: Exam(s) Completed: Chest X-Ray PERIPHERAL IV DATA: Not applicable SIGNED BY: RT Britton(Laura) July 07, 2024 9:45 AM documented in this encounterC[facility]25 NoteHNO ID: [id number] Author: JODIE KNOTT RT(R) Service: Radiology Author Type: Technologist Type: Progress Notes Filed: 07/07/2024 09:52 Note Text: Radiology Service Progress Note PATIENT NAME: Sammy Redd DATE OF SERVICE: July 07, 2024 TIME: 9:45 AM PATIENT IDENTITY VERIFICATION COMPLETED USING TWO (2) IDENTIFIERS: Name and Date of confirmed by patient verbally. FALL SCREENING: Has the patient had 2 falls in the last year or 1 fall with injury or currently using an Ambulatory Assistive Device (Walker, Cane, Wheelchair, Crutches, etc.)? No PATIENT GENDER DATA: Assigned female at . status: : No status: NO. PATIENT RELEVANT IMPLANT DATA REVIEWED: Not Applicable PATIENT PRESENTS WITH AN IMPLANTABLE OR ATTACHED DRUG INSPECTOR: No RADIOLOGY DEPARTMENT: General X-ray: Exam(s) Completed: Chest X-Ray PERIPHERAL IV DATA: Not applicable SIGNED BY: RT Britton(Laura) July 07, 2024 9:45 [facility]03-11-2025 NoteHNO ID: [id number] Author: JOSE LUIS TOLEDO, DO Service: ? Author Type: Physician Type: Progress Notes Filed: 07/05/2024 12:30 Note Text: CC: Sammy Redd is a 44 year old female who presents to the office for follow up HPI: Cough, chest congestion, present for the last 10 days, getting worse. Is using her albuterol inhaler for the wheezing. Getting some occasional shortness of breath with coughing. Hasn't been able to bring up any sputum. No nasal or ear or throat symptoms. Symptoms not improved much with prednisone- maybe 20% better. Getting some nausea. Was originally diagnosed with influenza A. Didn't take the Tamiflu medication that she was prescribed. Obesity, IFG, dysmetabolic syndrome, tolerating adipex but struggling to lose the weight. Knows that the prednisone that she had to take is also affecting her weight. Is interested in taking victoza which was approved by her insurance but the pharmacy doesn't have it available for her to use. PAST MEDICAL HISTORY Diagnosis Date Anesthesia states mom had issues in 2013 leading to air emboli after surgery. pt herself has had no issues. Anxiety Cerebral aneurysm 2015 just watching scanned last 2021 - Dr. Oneal Complicated migraine Endometriosis 75% improvement in abdominal pain post lap surgery Fibromyalgia Hypothyroidism IBS (irritable bowel syndrome) Insulin resistance Kidney stone Lactose intolerance in adult Left thyroid nodule 12/2020 repeat thyroid US 12/2021 Low HDL (under 40) Low serum progesterone worsening symptoms with progesterone rx Lumbar disc disease 05/13/2010 Migraines CADENCE (obstructive sleep apnea) Last polysomnogram in 2012, last use in 2012 Personal history of kidney stones Polycystic ovary syndrome 06/19/2010 Protein S deficiency (HCC) 2007 clotting disorder (just had APPT drawn - in [facility]) PUD (peptic ulcer disease) 2010 treated medically, [...] PYELOTOMY W/REMOVAL CALCULUS 04/27/2008 multiple VAGINAL HYSTERECTOMY Current Outpatient Medications Medication Sig LORazepam (ATIVAN) 1 mg tablet Take 1 tablet by mouth two times a day as needed for anxiety for up to 90 days. Phentermine HCl (ADIPEX-P) 37.5 mg tablet Take 1 tablet by mouth once daily for 30 days. BMI 38.28 albuterol HFA (PROVENTIL HFA, VENTOLIN HFA) 90 mcg/actuation inhaler Inhale 2 Puffs as instructed every 4 hours as needed for wheezing/shortness of breath. albuterol (PROVENTIL) 2.5 mg /3 mL (0.083 %) nebulizer solution Use 3 mL via nebulizer every 4 hours as needed for wheezing/shortness of breath. sulfamethoxazole-trimethoprim (BACTRIM DS) 800-160 mg per tablet Take 1 tablet by mouth two times a day for 5 days. clarithromycin (BIAXIN) 500 mg Take 1 tablet by mouth two times a day for 10 days. dulaglutide (TRULICITY) 0.75 mg/0.5 mL pen injector Inject 0.75 mg subcutaneously one time a week. Inject dose once per week. Discard Pen After predniSONE (DELTASONE) 10 mg tablet Take 4 tabs daily for 3 days, then 2 tabs daily for 3 days, then 1 tab daily for 3 days with food. oseltamivir (TAMIFLU) 75 mg capsule Take 1 capsule by mouth two times a day for 5 days. benzonatate (TESSALON PERLE) 100 mg capsule Take 1 capsule by mouth three times a day as needed. codeine-guaiFENesin (ROBITUSSIN AC) 10-100 mg/5 mL syrup Take 5 mL by mouth four times a day as needed for up to 5 days. albuterol HFA (PROVENTIL HFA, VENTOLIN HFA) 90 mcg/actuation inhaler Inhale 2 Puffs as instructed every 4 hours as needed for wheezing/shortness of breath. diclofenac (VOLTAREN ARTHRITIS PAIN) 1 % topical gel Apply 2 g to affected area three times a day as needed. tiZANidine (ZANAFLEX) 4 mg tablet Take 1 tablet by mouth every 8 hours as needed (muscle spasms). Insulin [place], Disposable, (PEN NEEDLE) 29 gauge x 1/2 1 Each once daily. Cholecalciferol, Vitamin D3, 125 mcg (5,000 unit) cap Take 1 capsule by mouth every morning. In addition to 1,000 international unit(s) every morning vitamin D3-vitamin K2, MK4, 1,000-100 unit-mcg tab Take 1 tablet by mouth every morning. In addition to 5,000 units levothyroxine (SYNTHROID) 88 mcg tablet Take 1 tablet by mouth daily before breakfast. and skip 1 day weekly. naltrexone 2 mg tablet Take 1 tablet by mouth once daily. liragluti (more content not included)...[place] [id number] History of Present illness Narrative* ToledoJose Luis pappas Raphael, DO - 07/05/2024 12:22 PM EDT CC: Sammy Redd is a 44 year old female who presents to the office for follow up HPI: Cough, chest congestion, present for the last 10 days, getting worse. Is using her albuterol inhaler for the wheezing. Getting some occasional shortness of breath with coughing. Hasn't been able to bring up any sputum. No nasal or ear or throat symptoms. Symptoms not improved much with prednisone- maybe 20% better. Getting some nausea. Was originally diagnosed with influenza A. Didn't take the Tamiflu medication that she was prescribed. Obesity, IFG, dysmetabolic syndrome, tolerating adipex but struggling to lose the weight. Knows that the prednisone that she had to take is also affecting her weight. Is interested in taking victoza which was approved by her insurance but the pharmacy doesn't have it available for her to use. PAST MEDICAL HISTORY Diagnosis Date Anesthesia states mom had issues in 2013 leading to air emboli after surgery. pt herself has had no issues. Anxiety Cerebral aneurysm 2015 just watching scanned last 2021 - Dr. Oneal Complicated migraine Endometriosis 75% improvement in abdominal pain post lap surgery Fibromyalgia Hypothyroidism IBS (irritable bowel syndrome) Insulin resistance Kidney stone Lactose intolerance in adult Left thyroid nodule 12/2020 repeat thyroid US 12/2021 Low HDL (under 40) Low serum progesterone worsening symptoms with progesterone rx Lumbar disc disease 05/13/2010 Migraines CADENCE (obstructive sleep apnea) Last polysomnogram in 2012, last use in 2012 Personal history of kidney stones Polycystic ovary syndrome 06/19/2010 Protein S deficiency (HCC) 2008 clotting disorder (just had APPT drawn - in [facility] - [facility]) PUD (peptic ulcer disease) 2010 treated [...] PYELOTOMY W/REMOVAL CALCULUS 04/27/2008 multiple VAGINAL HYSTERECTOMY Current Outpatient Medications Medication Sig LORazepam (ATIVAN) 1 mg tablet Take 1 tablet by mouth two times a day as needed for anxiety for up to 90 days. Phentermine HCl (ADIPEX-P) 37.5 mg tablet Take 1 tablet by mouth once daily for 30 days. BMI 38.28 albuterol HFA (PROVENTIL HFA, VENTOLIN HFA) 90 mcg/actuation inhaler Inhale 2 Puffs as instructed every 4 hours as needed for wheezing/shortness of breath. albuterol (PROVENTIL) 2.5 mg /3 mL (0.083 %) nebulizer solution Use 3 mL via nebulizer every 4 hours as needed for wheezing/shortness of breath. sulfamethoxazole-trimethoprim (BACTRIM DS) 800-160 mg per tablet Take 1 tablet by mouth two times aday for 5 days. clarithromycin (BIAXIN) 500 mg Take 1 tablet by mouth two times a day for 10 days. dulaglutide (TRULICITY) 0.75 mg/0.5 mL pen injector Inject 0.75 mg subcutaneously one time a week. Inject dose once per week. Discard Pen After predniSONE (DELTASONE) 10 mg tablet Take 4 tabs daily for 3 days, then 2 tabs daily for 3 days, then 1 tab daily for 3 days with food. oseltamivir (TAMIFLU) 75 mg capsule Take 1 capsule by mouth two times a day for 5 days. benzonatate (TESSALON PERLE) 100 mg capsule Take 1 capsule by mouth three times a day as needed. codeine-guaiFENesin (ROBITUSSIN AC) 10-100 mg/5 mL syrup Take 5 mL by mouth four times a day as needed for up to 5 days. albuterol HFA (PROVENTIL HFA, VENTOLIN HFA) 90 mcg/actuation inhaler Inhale 2 Puffs as instructed every 4 hours as needed for wheezing/shortness of breath. diclofenac (VOLTAREN ARTHRITIS PAIN) 1 % topical gel Apply 2 g to affected area three times a day as needed. tiZANidine (ZANAFLEX) 4 mg tablet Take 1 tablet by mouth every 8 hours as needed (muscle spasms). Insulin [place], Disposable, (PEN NEEDLE) 29 gauge x 1/2 1 Each once daily. Cholecalciferol, Vitamin D3, 125 mcg (5,000 unit) cap Take 1 capsule by mouth every morning. In addition to 1,000 international unit(s) every morning vitamin D3-vitamin K2, MK4, 1,000-100 unit-mcg tab Take 1 tablet by mouth every morning. In addition to 5,000 units levothyroxine (SYNTHROID) 88 mcg tablet Take 1 tablet by mouth daily before breakfast. and skip 1 day weekly. naltrexone 2 mg tablet Take 1 tablet by mouth once daily. liraglutide (VICTOZA) 0.6 mg/ 0.1 ml subcutaneous pen injector Inject 0.6 mg daily via pen cyanocobalamin 1,000 mcg/mL Inject 1 mL intramuscularly one time a week for 30 days, THEN 1 mL every 2 weeks for 60 days, THEN 1 mL once every month. dextroamphetamine-amphetamine (ADDERALL) 10 mg tablet Take 1 tablet by mouth once daily for 30 days. triamcinolone acetonide (KENALOG) 0.5 % cream Apply 1 application to affected area daily at bedtime. On left lower leg skin lesion at ankle. Apply sparingly. Avoid face/skin fold. Syringe with Needle, Safety (SAFETY-NAVDEEP 10CC SYR 21GX1.5) 10 mL 21 gauge x 1 1/2 syrg 1 Syringe as directed. vitamin b complex (B COMPLETE) tab Take 1 tablet by mouth once daily. ondansetron orally disintegrating (ZOFRAN ODT) 4 mg disintegrating tablet Take 1 tablet by mouth every 6 hours as needed for Nausea/Vomiting. No current facility-administered medications for this visit. ALLERGIES Allergen Reactions Aleve [Naproxen Sod* Vomiting Ibuprofen without problems Vomiting with Aleve with one time use Compazine [Prochlor* Mental Status Change Menthol Rash Metformin GI Upset Morphine (Pf) Other: See Comments Respiratory depression Penicillins Swelling Adhesive Rash Social History Tobacco Use Smoking status: Never Smokeless tobacco: Never Vaping Use Vaping status: Never Used Substance Use Topics Alcohol use: Yes Comment: twice a year-socially Drug use: No ROS: See HPI PE: BP 126/80 Pulse 76 Temp (Src) 97.3 (Temporal) Resp 16 Wt 205 lb (93.0kg) LMP 05/30/2019 Gen: A&OX3, NAD, non-toxic appearing HEENT: PERRLA, EOMs intact b/l, nares without drainage, pharynx without erythema, exudate, lesions,or drainage. Uvula midline. Neck: No LAD, no thyromegaly, no meningismus. CV: RRR, no murmur Lungs: wheezing diffusely, rhonchi bases of the lungs, no respiratory distress, she is coughing throughout the exam Central obesity No edema, normal peripheral pulses Skin: No rashes, lesions, or wounds on exposed skin. ASSESSMENT/PLAN: 1. Rhonchi at both lung bases - ICD9: 786.7, ICD10: R09.89 (primary diagnosis) Concerns for CAP with examination today in office Continue albuterol and mucinex Add on antibiotics- has a significant PCN allergy, will try to avoid the cephalosporins as well. F/u in office if not improving - ALBUTEROL SULFATE HFA 90 MCG/ACTUATION AEROSOL INHALER - ALBUTEROL SULFATE 2.5 MG/3 ML (0.083 %) SOLUTION FOR NEBULIZATION - SULFAMETHOXAZOLE 800 MG-TRIMETHOPRIM 160 MG TABLET - CLARITHROMYCIN 500 MG TABLET - XR CHEST 2V FRONTAL/LAT 2. Impaired concentration - ICD9: 799.51, ICD10: R41.840 rx refilled stable - LORAZEPAM 1 MG TABLET 3. Anxiety disorder, unspecified type - ICD9: 300.00, ICD10: F41.9 rx refilled, stable - LORAZEPAM 1 MG TABLET 4. PRASHANTH (generalized anxiety disorder) - ICD9: 300.02, ICD10: F41.1 rx refilled, stable - LORAZEPAM 1 MG TABLET 5. Situational anxiety - ICD9: 300.09, ICD10: F41.8 rx refilled, stable - LORAZEPAM 1 MG TABLET 6. Obesity, Class II, BMI 35-39.9 - ICD9: 278.00, ICD10: E66.812 Will try to start her on Victoza or Trulicity, need for additional weight loss. - PHENTERMINE 37.5 MG TABLET 7. Encounter for screening mammogram for malignant neoplasm of breast - ICD9: V76.12, ICD10: Z12.31 - MIRELLA SCREENING 8. Community acquired pneumonia, unspecified laterality - ICD9: 486, ICD10: J18.9 Concerns for CAP with examination today in office Continue albuterol and mucinex Add on antibiotics- has a significant PCN allergy, will try to avoid the cephalosporins as well. F/u in office if not improving - ALBUTEROL SULFATE HFA 90 MCG/ACTUATION AEROSOL INHALER - ALBUTEROL SULFATE 2.5 MG/3 ML (0.083 %) SOLUTION FOR NEBULIZATION - SULFAMETHOXAZOLE 800 MG-TRIMETHOPRIM 160 MG TABLET - CLARITHROMYCIN 500 MG TABLET - XR CHEST 2V FRONTAL/LAT 9. SOB (shortness of breath) - ICD9: 786.05, ICD10: R06.02 Concerns for CAP with examination today in office Continue albuterol and mucinex Add on antibiotics- has a significant PCN allergy, will try to avoid the cephalosporins as well. F/u in office if not improving - PREDNISONE 10 MG TABLET 10. Wheeze - ICD9: 786.07, ICD10: R06.2 Concerns for CAP with examination today in office Continue albuterol and mucinex Add on antibiotics- has a significant PCN allergy, will try to avoid the cephalosporins as well. F/u in office if not improving - PREDNISONE 10 MG TABLET Jose Luis [place] DO Return if no improvement. Follow up with Jose Luis [place] DO. To ER if develops chest pain, shortness of breath Discussed risks, benefits, alternatives, and potential side effects of medications. Patient/Guardian expressed understanding and agreed with the plan. See patient instructions. Jose Luis [place] DO [address] [place] [address] [facility] Telephone encounter Note * Telephone Encounter - Bertha Rivera LPN - 07/04/2024 9:13 AM EDT Patient has been identified by name and date of : Patient phones for refill(s): Requested Prescriptions Pending Prescriptions Disp Refills albuterol (PROVENTIL) 2.5 mg/0.5 mL nebulizer solution [Pharmacy Med Name: ALBUTEROL 2.5 MG/0.5 ML ELIEZER] 30 mL 1 Sig: USE 0.5ML VIA NEBULIZER EVERY 4 HOURS NEEDED FOR WHEEZING/SHORTNESS OF BREATH. Date of last office visit in primary care: 06/30/2024 Date of next office visit in primary care: 07/05/2024 Please advise. Thank you. Bertha Rivera LPN. [facility]03-10-2025 Miscellaneous Notes* Telephone Encounter - Bertha Sarmiento LPN - 07/04/2024 9:13 AM EDT Patient has been identified by name and date of : Patient phones for refill(s): Requested Prescriptions Pending Prescriptions Disp Refills albuterol (PROVENTIL) 2.5 mg/0.5 mL nebulizer solution [Pharmacy Med Name: ALBUTEROL 2.5 MG/0.5 ML ELIEZER] 30 mL 1 Sig: USE 0.5ML VIA NEBULIZER EVERY 4 HOURS NEEDED FOR WHEEZING/SHORTNESS OF BREATH. Date of last office visit in primary care: 06/30/2024 Date of next office visit in primary care: 07/05/2024 Please advise. Thank you. Bertha Rivera LPN. documented in this encounterC[facility] Telephone encounter Note * Telephone Encounter - Giana Alicea MA - 07/01/2024 7:45 AM EST Pt informed Giana Alicea MA [facility]03-07-2025 Miscellaneous Notes* Telephone Encounter - Giana Alicea MA - 07/01/2024 7:45 AM EST Pt informed Giana Alicea MA * Telephone Encounter - Dee Flores APRN.CNP - 07/01/2024 7:27 AM EST Please let her know that her testing is positive for influenza A. I'm sending in Tamiflu for her tobegin today. The following approved medication requests have been transmitted electronically. Requested Prescriptions Signed Prescriptions Disp Refills oseltamivir (TAMIFLU) 75 mg capsule 10 capsule 0 Sig: Take 1 capsule by mouth two times a day for 5 days. Dee Flores APRN.CNP documented in this encounterC[facility] Telephone encounter Note * Telephone Encounter - Dee Flores APRN.CNP - 07/01/2024 7:27 AM EST Please let her know that her testing is positive for influenza A. I'm sending in Tamiflu for her tobegin today. The following approved medication requests have been transmitted electronically. Requested Prescriptions Signed Prescriptions Disp Refills oseltamivir (TAMIFLU) 75 mg capsule 10 capsule 0 Sig: Take 1 capsule by mouth two times a day for 5 days. Dee Flores APRN.CNP [facility]03-06-2025 Telephone encounter Note* Telephone Encounter - Giana Alicea MA - 06/30/2024 1:32 PM EST Script faxed Giana Alicea MA [facility]03-06-2025 Miscellaneous Notes* Telephone Encounter - Giana Alicea MA - 06/30/2024 1:32 PM EST Script faxed Giana Alicea MA * Telephone Encounter - Dee Flores APRN.CNP - 06/30/2024 1:30 PM EST Bronchitis added to dx. Order in the outbox in our office. Dee Flores APRN.CNP * Telephone Encounter - Giana Alicea MA - 06/30/2024 1:25 PM EST Neither dx will work. J42 or J40 - bronchitis should work. Please send escript to [facility]. Make sure script states nebulizer compressor per Milady. Giana Alicea MA * Telephone Encounter - Dee Flores APRN.CNP - 06/30/2024 12:13 PM EST I added the viral uri and restrictive airway disease-do these work? Dee Flores APRN.JOI * Telephone Encounter - Shiloh Harris LPN - 06/30/2024 11:17 AM EST Milady from [facility] calling asking for another diagnosis for the Nebulizer, ones on rx not going to be covered. Call her first to see if diagnosis code works, then she will need a new rx sent to her. Cost for patient would be 90 dollars. Please advise documented in this encounterC[facility]03[facility] Telephone encounter Note * Telephone Encounter - Dee Flores APRN.CNP - 06/30/2024 1:30 PM EST Bronchitis added to dx. Order in the outbox in our office. Dee Floers APRN.CNP [facility]03-06-[facility] Telephone encounter Note* Telephone Encounter - Giana Alicea MA - 06/30/2024 1:25 PM EST Neither dx will work. J42 or J40 - bronchitis should work. Please send escript to [facility]. Make sure script states nebulizer compressor per Milady. Giana Alicea MA [facility]03-06-2025 Telephone encounter Note* Telephone Encounter - Dee Flores APRN.CNP - 06/30/2024 12:13 PM EST I added the viral uri and restrictive airway disease-do these work? Dee Flores APRN.JOI [facility]03-06-2025 Telephone encounter Note* Telephone Encounter - Shiloh Harris LPN - 06/30/2024 11:17 AM EST Milady from [facility] calling asking for another diagnosis for the Nebulizer, ones on rx not going to be covered. Call her first to see if diagnosis code works, then she will need a new rx sent to her. Cost for patient would be 90 dollars. Please advise [facility]03-06-2025 History of Present illness Narrative* Zac Slaughter Tech - 06/30/2024 10:30 AM EST Radiology Service Progress Note PATIENT NAME: Sammy Redd DATE OF SERVICE: June 30, 2024 TIME: 10:23 AM PATIENT IDENTITY VERIFICATION COMPLETED USING TWO (2) IDENTIFIERS: Name and Date of confirmedby patient verbally. FALL SCREENING: Has the patient had 2 falls in the last year or 1 fall with injury or currently using an Ambulatory Assistive Device (Walker, Cane, Wheelchair, Crutches, etc.)? No PATIENT GENDER DATA: Assigned female at . status: : No status:NO. PATIENT RELEVANT IMPLANT DATA REVIEWED: Not Applicable PATIENT PRESENTS WITH AN IMPLANTABLE OR ATTACHED DRUG INSPECTOR: No RADIOLOGY DEPARTMENT: General X-ray: Exam(s) Completed: Chest X-Ray PERIPHERAL IV DATA: Not applicable SIGNED BY: Forrest Tello June 30, 2024 10:23 AM documented in this encounterC[facility]03-06-2025 NoteHNO ID: [id number] Author: ZAC SLAUGHTER Tech Service: ? Author Type: Technologist Type: Progress Notes Filed: 06/30/2024 10:33 Note Text: Radiology Service Progress Note PATIENT NAME: Sammy Redd DATE OF SERVICE: June 30, 2024 TIME: 10:23 AM PATIENT IDENTITY VERIFICATION COMPLETED USING TWO (2) IDENTIFIERS: Name and Date of confirmed by patient verbally. FALL SCREENING: Has the patient had 2 falls in the last year or 1 fall with injury or currently using an Ambulatory Assistive Device (Walker, Cane, Wheelchair, Crutches, etc.)? No PATIENT GENDER DATA: Assigned female at . status: : No status: NO. PATIENT RELEVANT IMPLANT DATA REVIEWED: Not Applicable PATIENT PRESENTS WITH AN IMPLANTABLE OR ATTACHED DRUG INSPECTOR: No RADIOLOGY DEPARTMENT: General X-ray: Exam(s) Completed: Chest X-Ray PERIPHERAL IV DATA: Not applicable SIGNED BY: Forrest Tello June 30, 2024 10:23 [facility]03-06-2025 [id number] (AGENT OF COVID-19) RNA: Not detected INFLUENZA A RNA: Detected INFLUENZA B RNA: Not detected RESPIRATORY SYNCYTIAL VIRUS (RSV) RNA: Not detectedThe University Of [facility]edo Medical CenterComment on above:Performed By: #### [id number] ####[facility] LABCLIA [id number] [address]03-06-2025 NoteHNO ID: [id number] Author: DEE FLORES APRN.[facility] Service: ? Author Type: Nurse Practitioner Type: Progress Notes Filed: 06/30/2024 13:07 Note Text: Chief Complaint Patient presents with: Acute Visit: SOB, wheezing, cough, went to 06/28 dx with bronchitis and was given prednisone x 4days and albut inhaler with minimal relief, reports SOB is worse HPI Sammy Redd is a 44 year old female who presents here today for Above Complaints.. Per visit with express care on 06/28/2024: Cough Associated symptoms include chills, ear pain (pressure bilateral ears), headaches, sore throat, myalgias, shortness of breath and wheezing. Pt is a 44 y/o female who presents with non-productive cough, chest tightness, wheezing and shortness of breath x 2 days. Pt reports mild nasal congestion and bilateral ear pressure. Pt reports that she is concerned with bronchitis as she has had similar symptoms with bronchitis in the past. No reports of fever at home but does report body aches and chills. Pt reports shortness of breath at rest and on exertion. Pt has tried otc motrin and robitussin with minimal relief. ASSESSMENT/PLAN: 1. Bronchitis - ICD9: 490, ICD10: J40 (primary diagnosis) - PREDNISONE 20 MG TABLET - ALBUTEROL SULFATE HFA 90 MCG/ACTUATION AEROSOL INHALER - INHALATIONAL SPACING DEVICE 2. Viral URI with cough - ICD9: 465.9, ICD10: J06.9 - Discussed viral etiology and rationale for treatment. - Symptomatic treatment with prn analgesia - Supportive care with fluids and rest - The patient may also use OTC decongestants prn, OTC cough and cold meds as needed, and warm salt water gargles, throat lozenges and/or OTC throat spray as needed. - recommended COVID/flu/RSV testing, pt declined at this time. - PREDNISONE 20 MG TABLET - ALBUTEROL SULFATE HFA 90 MCG/ACTUATION AEROSOL INHALER - INHALATIONAL SPACING DEVICE Marielle Yang Signature: Demetris Bradford Date: 06/28/2024 Time: 4:47 PM Currently: Feels like she is sicker than she has ever been. Extremely weak. Almost done with the steroid and things are just getting worse. Albuterol helps very temporarily. Significant SOB, shooting pain through her chest into her back. Just talking she feels SOB. Persistent dry cough, feels extremely restricted. Ears are achy but don't necessarily hurt. Hands and feet are on fire, they're very hot. Nose is running but she's not stuffy. Is taking Tylenol and motrin PM, is exhausted but can't sleep. Tussin for the cough, helps temporarily. Past medical history, appointments, medications, allergies reviewed. Previous Medical History PAST MEDICAL HISTORY Diagnosis Date Anesthesia states mom had issues in 2013 leading to air emboli after surgery. pt herself has had no issues. Anxiety Cerebral aneurysm 2015 just watching scanned last 2021 - Dr. Oneal Complicated migraine Endometriosis 75% improvement in abdominal pain post lap surgery Fibromyalgia Hypothyroidism IBS (irritable bowel syndrome) Insulin resistance Kidney stone Lactose intolerance in adult Left thyroid nodule 12/2020 repeat thyroid US 12/2021 Low HDL (under 40) Low serum progesterone worsening symptoms with progesterone rx Lumbar disc disease 05/13/2010 Migraines CADENCE (obstructive sleep apnea) Last polysomnogram in 2012, last use in 2012 Personal history of kidney stones Polycystic ovary syndrome 06/19/2010 Protein S deficiency (HCC) 2008 clotting disorder (just had APPT drawn - in [facility]) PUD (peptic ulcer disease) 2010 treated [...] PYELOTOMY W/REMOVAL CALCULUS 04/27/2008 multiple VAGINAL HYSTERECTOMY Family History FAMILY HISTORY Problem Relation Age of Onset Breast Cancer Mother 39 Arthritis Mother Fibromyalgia other (irregular heartbeat) Mother Arthritis Father RA Thyroid Father Hypertension Father Thyroid Cancer Sister Diabetes Brother type 1 Diabetes Brother Type 1 Hypertension Maternal Grandmother Alzheimer's Disease Maternal Grandmother Arthritis Maternal Grandmother other (dementia) Maternal Grandmother Stroke Maternal Grandfather ADD/ADHD Daughter other (Eosinophilic esophagitis) Son other (Abdominal migraines) Son Patient Allergies ALLERGIES Al (more content not included)...[facility]03-06-2025 History of Present illness Narrative* Dee Flores APRN.PRINTING EQUIPMENT MECHANIC APPRENTICE - 06/30/2024 9:38 AM EST Chief Complaint Patient presents with: Acute Visit: SOB, wheezing, cough, went to 06/28 dx with bronchitis and was given prednisone x 4days and albut inhaler with minimal relief, reports SOB is worse HPI Sammy Redd is a 44 year old female who presents here today for Above Complaints.. Per visit with express care on 06/28/2024: Cough Associated symptoms include chills, ear pain (pressure bilateral ears), headaches, sore throat, myalgias, shortness of breath and wheezing. Pt is a 44 y/o female who presents with non-productive cough, chest tightness, wheezing and shortness of breath x 2 days. Pt reports mild nasal congestion and bilateral ear pressure. Pt reports that she is concerned with bronchitis as she has had similar symptoms with bronchitis inthe past. No reports of fever at home but does report body aches and chills. Pt reports shortness of breath at rest and on exertion. Pt has tried otc motrin and robitussin with minimal relief. ASSESSMENT/PLAN: 1. Bronchitis - ICD9: 490, ICD10: J40 (primary diagnosis) - PREDNISONE 20 MG TABLET - ALBUTEROL SULFATE HFA 90 MCG/ACTUATION AEROSOL INHALER - INHALATIONAL SPACING DEVICE 2. Viral URI with cough - ICD9: 465.9, ICD10: J06.9 - Discussed viral etiology and rationale for treatment. - Symptomatic treatment with prn analgesia - Supportive care with fluids and rest - The patient may also use OTC decongestants prn, OTC cough and cold meds as needed, and warm salt water gargles, throat lozenges and/or OTC throat spray as needed. - recommended COVID/flu/RSV testing, pt declined at this time. - PREDNISONE 20 MG TABLET - ALBUTEROL SULFATE HFA 90 MCG/ACTUATION AEROSOL INHALER - INHALATIONAL SPACING DEVICE Marielle Yang Signature: Demetris Bradford Date: 06/28/2024 Time: 4:47 PM Currently: Feels like she is sicker than she has ever been. Extremely weak. Almost done with the steroid and things are just getting worse. Albuterol helps very temporarily. Significant SOB, shooting pain through her chest into her back. Just talking she feels SOB. Persistent dry cough, feels extremely restricted. Ears are achy but don't necessarily hurt. Hands and feet are on fire, they're very hot. Nose is running but she's not stuffy. Is taking Tylenol and motrin PM, is exhausted but can't sleep. Tussin for the cough, helps temporarily. Past medical history, appointments, medications, allergies reviewed. Previous Medical History PAST MEDICAL HISTORY Diagnosis Date Anesthesia states mom had issues in 2013 leading to air emboli after surgery. pt herself has had no issues. Anxiety Cerebral aneurysm 2015 just watching scanned last 2021 - Dr. Oneal Complicated migraine Endometriosis 75% improvement in abdominal pain post lap surgery Fibromyalgia Hypothyroidism IBS (irritable bowel syndrome) Insulin resistance Kidney stone Lactose intolerance in adult Left thyroid nodule 12/2020 repeat thyroid US 12/2021 Low HDL (under 40) Low serum progesterone worsening symptoms with progesterone rx Lumbar disc disease 05/13/2010 Migraines CADENCE (obstructive sleep apnea) Last polysomnogram in 2012, last use in 2012 Personal history of kidney stones Polycystic ovary syndrome 06/19/2010 Protein S deficiency (HCC) 2008 clotting disorder (just had APPT drawn - in [facility]) PUD (peptic ulcer disease) 2010 treated medically, [...] PYELOTOMY W/REMOVAL CALCULUS 04/27/2008 multiple VAGINAL HYSTERECTOMY Family History FAMILY HISTORY Problem Relation Age of Onset Breast Cancer Mother 39 Arthritis Mother Fibromyalgia other (irregular heartbeat) Mother Arthritis Father RA Thyroid Father Hypertension Father Thyroid Cancer Sister Diabetes Brother type 1 Diabetes Brother Type 1 Hypertension Maternal Grandmother Alzheimer's Disease Maternal Grandmother Arthritis Maternal Grandmother other (dementia) Maternal Grandmother Stroke Maternal Grandfather ADD/ADHD Daughter other (Eosinophilic esophagitis) Son other (Abdominal migraines) Son Patient Allergies ALLERGIES Allergen Reactions Aleve [Naproxen Sod* Vomiting Ibuprofen without problems Vomiting with Aleve with one time use Compazine [Prochlor* Mental Status Change Menthol Rash Metformin GI Upset Morphine (Pf) Other: See Comments Respiratory depression Penicillins Swelling Adhesive Rash Current Medications Current Outpatient Medications on File Prior to Visit Medication Sig predniSONE (DELTASONE) 20 mg tablet Take 2 tablets by mouth once daily for 4 days. albuterol HFA (PROVENTIL HFA, VENTOLIN HFA) 90 mcg/actuation inhaler Inhale 2 Puffs as instructed every 4 hours as needed for wheezing/shortness of breath. diclofenac (VOLTAREN ARTHRITIS PAIN) 1 % topical gel Apply 2 g to affected area three times a day as needed. tiZANidine (ZANAFLEX) 4 mg tablet Take 1 tablet by mouth every 8 hours as needed (muscle spasms). Insulin [place], Disposable, (PEN NEEDLE) 29 gauge x 1/2 1 Each once daily. Cholecalciferol, Vitamin D3, 125 mcg (5,000 unit) cap Take 1 capsule by mouth every morning. In addition to 1,000 international unit(s) every morning vitamin D3-vitamin K2, MK4, 1,000-100 unit-mcg tab Take 1 tablet by mouth every morning. In addition to 5,000 units levothyroxine (SYNTHROID) 88 mcg tablet Take 1 tablet by mouth daily before breakfast. and skip 1 day weekly. LORazepam (ATIVAN) 1 mg tablet Take 1 tablet by mouth two times a day as needed for anxiety for up to 90 days. naltrexone 2 mg tablet Take 1 tablet by mouth once daily. liraglutide (VICTOZA) 0.6 mg/ 0.1 ml subcutaneous pen injector Inject 0.6 mg daily via pen cyanocobalamin 1,000 mcg/mL Inject 1 mL intramuscularly one time a week for 30 days, THEN 1 mL every 2 weeks for 60 days, THEN 1 mL once every month. dextroamphetamine-amphetamine (ADDERALL) 10 mg tablet Take 1 tablet by mouth once daily for 30 days. busPIRone (BUSPAR) 10 mg tablet Take 1 tablet in the morning and 1 tablet in the evening. (Patient not taking: Reported on 05/05/2024) triamcinolone acetonide (KENALOG) 0.5 % cream Apply 1 application to affected area daily at bedtime. On left lower leg skin lesion at ankle. Apply sparingly. Avoid face/skin fold. Syringe with Needle, Safety (SAFETY-NAVDEEP 10CC SYR 21GX1.5) 10 mL 21 gauge x 1 1/2 syrg 1 Syringe as directed. vitamin b complex (B COMPLETE) tab Take 1 tablet by mouth once daily. ondansetron orally disintegrating (ZOFRAN ODT) 4 mg disintegrating tablet Take 1 tablet by mouth every 6 hours as needed for Nausea/Vomiting. No current facility-administered medications on file prior to visit. Social History Social History Tobacco Use Smoking status: Never Smokeless tobacco: Never Vaping Use Vaping status: Never Used Substance Use Topics Alcohol use: Yes Comment: twice a year-socially Drug use: No Review of Symptoms REVIEW OF SYSTEMS See HPI, otherwise negative EXAM: BP 128/78 (BP Site: Left Arm, BP Position: Sitting, BP Cuff Size: Large Adult) Pulse 107 Temp 37.7 C (99.9 F) (Temporal) Wt 94.6 kg (208 lb 9.6 oz) LMP 05/30/2019 (Exact Date) SpO2 96% BMI 40.74 kg/m General Appearance: Well appearing, alert, in no acute distress, well-hydrated, well nourished.. Skin: skin warm, hands reddened. Head: Normocephalic, no masses, lesions, tenderness or abnormalities. Eyes: eyes glassy. Ears: External ears normal, canals clear. Nose/Sinuses: Nares normal, septum midline, mucosa normal, no drainage or sinus tenderness. Oropharynx: Lips, mucosa, and tongue normal, teeth and gums normal, oropharynx normal. Neck: 2+ bilateral submandibular lymphadenopathy. Lungs: Shortness of breath: At rest, Cough, difficulty to accurately assess due to coughing with deep breaths, expiratory wheeze throughout Heart: RRR without murmur, gallop, or rubs. No ectopy. Lymph Nodes: 2+ bilateral submandibular lymphadenopathy.. Psychiatric: pleasant, cooperative. Health Maintenance List Depression Screening Never done Hepatitis C Screening Never done HIV Screening Never done Hepatitis B Vaccine(1 of 3 - 19+ 3-dose series) Never done DTaP,Tdap,Td Vaccine(1 - Tdap) due on 07/21/2017 Mammogram Screening due on 06/11/2022 Influenza Vaccine(1) due on 10/24/2024 Covid-19 Vaccine(1 - season) due on 04/04/2025 Annual PCP Team Chronic Disease Visit due on 05/05/2025 Cervical Cancer Screening due on 06/25/2025 Data reviewed Previous records, office notes, PDMP report PDMP website checked and validated. All prescriptions have been APPROPRIATELY filled. No suspiciousactivity was identified. 06/30/2024 by Dee Flores CNP. ASSESSMENT/PLAN: 1. SOB (shortness of breath) - ICD9: 786.05, ICD10: R06.02 (primary diagnosis) Suspect pneumonia, possibly influenza or RSV Patient is aware of red flag s/s Supportive care - COVID & INFLUENZA A/B & RSV PCR, ROUTINE - BENZONATATE 100 MG CAPSULE - CODEINE 10 MG-GUAIFENESIN 100 MG/5 ML ORAL LIQUID - ALBUTEROL SULFATE CONCENTRATE 5 MG/ML(0.5 %) SOLUTION FOR NEBULIZATION - ALBUTEROL SULFATE CONCENTRATE 2.5 MG/0.5 ML SOLUTION FOR NEBULIZATION - FLUCONAZOLE 150 MG TABLET - NEBULIZER, WITH COMPRESSOR - XR CHEST 2V FRONTAL/LAT - PREDNISONE 10 MG TABLET 2. Wheeze - ICD9: 786.07, ICD10: R06.2 Suspect pneumonia, possibly influenza or RSV Patient is aware of red flag s/s Supportive care - COVID & INFLUENZA A/B & RSV PCR, ROUTINE - BENZONATATE 100 MG CAPSULE - CODEINE 10 MG-GUAIFENESIN 100 MG/5 ML ORAL LIQUID - ALBUTEROL SULFATE CONCENTRATE 5 MG/ML(0.5 %) SOLUTION FOR NEBULIZATION - ALBUTEROL SULFATE CONCENTRATE 2.5 MG/0.5 ML SOLUTION FOR NEBULIZATION - FLUCONAZOLE 150 MG TABLET - NEBULIZER, WITH COMPRESSOR - XR CHEST 2V FRONTAL/LAT - PREDNISONE 10 MG TABLET 3. Acute cough - ICD9: 786.2, ICD10: R05.1 Suspect pneumonia, possibly influenza or RSV Patient is aware of red flag s/s Supportive care - COVID & INFLUENZA A/B & RSV PCR, ROUTINE - BENZONATATE 100 MG CAPSULE - CODEINE 10 MG-GUAIFENESIN 100 MG/5 ML ORAL LIQUID - ALBUTEROL SULFATE CONCENTRATE 5 MG/ML(0.5 %) SOLUTION FOR NEBULIZATION - ALBUTEROL SULFATE CONCENTRATE 2.5 MG/0.5 ML SOLUTION FOR NEBULIZATION - FLUCONAZOLE 150 MG TABLET - NEBULIZER, WITH COMPRESSOR - XR CHEST 2V FRONTAL/LAT - PREDNISONE 10 MG TABLET 4. Fever, unspecified fever cause - ICD9: 780.60, ICD10: R50.9 Suspect pneumonia, possibly influenza or RSV Patient is aware of red flag s/s Supportive care - BENZONATATE 100 MG CAPSULE - CODEINE 10 MG-GUAIFENESIN 100 MG/5 ML ORAL LIQUID - ALBUTEROL SULFATE CONCENTRATE 5 MG/ML(0.5 %) SOLUTION FOR NEBULIZATION - ALBUTEROL SULFATE CONCENTRATE 2.5 MG/0.5 ML SOLUTION FOR NEBULIZATION - FLUCONAZOLE 150 MG TABLET - UA DIP, URINE (POC) - NEBULIZER, WITH COMPRESSOR - XR CHEST 2V FRONTAL/LAT - PREDNISONE 10 MG TABLET 5. Aches - ICD9: 780.96, ICD10: R52 Suspect pneumonia, possibly influenza or RSV Patient is aware of red flag s/s Supportive care - BENZONATATE 100 MG CAPSULE - CODEINE 10 MG-GUAIFENESIN 100 MG/5 ML ORAL LIQUID - ALBUTEROL SULFATE CONCENTRATE 5 MG/ML(0.5 %) SOLUTION FOR NEBULIZATION - ALBUTEROL SULFATE CONCENTRATE 2.5 MG/0.5 ML SOLUTION FOR NEBULIZATION - FLUCONAZOLE 150 MG TABLET - UA DIP, URINE (POC) - NEBULIZER, WITH COMPRESSOR - XR CHEST 2V FRONTAL/LAT - PREDNISONE 10 MG TABLET 6. Chills - ICD9: 780.64, ICD10: R68.83 Suspect pneumonia, possibly influenza or RSV Patient is aware of red flag s/s Supportive care - BENZONATATE 100 MG CAPSULE - CODEINE 10 MG-GUAIFENESIN 100 MG/5 ML ORAL LIQUID - ALBUTEROL SULFATE CONCENTRATE 5 MG/ML(0.5 %) SOLUTION FOR NEBULIZATION - ALBUTEROL SULFATE CONCENTRATE 2.5 MG/0.5 ML SOLUTION FOR NEBULIZATION - FLUCONAZOLE 150 MG TABLET - UA DIP, URINE (POC) - NEBULIZER, WITH COMPRESSOR - XR CHEST 2V FRONTAL/LAT - PREDNISONE 10 MG TABLET 7. Other chest pain - ICD9: 786.59, ICD10: R07.89 Suspect pneumonia, possibly influenza or RSV Patient is aware of red flag s/s Supportive care - BENZONATATE 100 MG CAPSULE - CODEINE 10 MG-GUAIFENESIN 100 MG/5 ML ORAL LIQUID - ALBUTEROL SULFATE CONCENTRATE 5 MG/ML(0.5 %) SOLUTION FOR NEBULIZATION - ALBUTEROL SULFATE CONCENTRATE 2.5 MG/0.5 ML SOLUTION FOR NEBULIZATION - FLUCONAZOLE 150 MG TABLET - NEBULIZER, WITH COMPRESSOR - XR CHEST 2V FRONTAL/LAT - PREDNISONE 10 MG TABLET 8. Urinary frequency - ICD9: 788.41, ICD10: R35.0 acute - Patient education for prevention given Dee Flores APRN.PRINTING EQUIPMENT MECHANIC APPRENTICE documented in [facility] encounterC[facility] Instructions* Patient Instructions* Marielle Yang - 06/28/2024 4:17 PM EST ASSESSMENT/PLAN: 1. Bronchitis - ICD9: 490, ICD10: J40 (primary diagnosis) - PREDNISONE 20 MG TABLET - ALBUTEROL SULFATE HFA 90 MCG/ACTUATION AEROSOL INHALER - INHALATIONAL SPACING DEVICE 2. Viral URI with cough - ICD9: 465.9, ICD10: J06.9 - Discussed viral etiology and rationale for treatment. - Symptomatic treatment with prn analgesia - Supportive care with fluids and rest - The patient may also use OTC decongestants prn, OTC cough and cold meds as needed, and warm salt water gargles, throat lozenges and/or OTC throat spray as needed. - recommended COVID/flu/RSV testing, pt declined at this time. - PREDNISONE 20 MG TABLET - ALBUTEROL SULFATE HFA 90 MCG/ACTUATION AEROSOL INHALER - INHALATIONAL SPACING DEVICE [facility] PATIENT INFO BRONCHITIS OVERVIEW Bronchitis develops when there is swelling and irritation of the bronchi, the large tubes that carry air to the lungs. There are two types of bronchitis: acute (sudden onset) and chronic (long-standing). Acute bronchitis often occurs with a viral infection, such as the common cold, and is sometimes called a chest cold. The most common symptom of acute bronchitis is a nagging cough. Treatment of acute bronchitis usually involves treating the symptoms, such as sore throat and congestion. Antibiotics do not help to eliminate acute bronchitis caused by a virus. Antiviral agents are useful in some cases of acute bronchitis due to influenza, but there are antiviral agents for other forms of viral bronchitis. BRONCHITIS CAUSES Most cases of bronchitis are caused by a viral infection of the upper airways, such as the common cold or the flu. Less commonly, a bacterium such as pertussis (whooping cough) is the cause. BRONCHITIS SYMPTOMS The most common symptoms of acute bronchitis include: A persistent cough; this may last 10 to 20 days Some people cough up mucus, which may be clear, yellow, or green in color Fever is not common in people with acute bronchitis. However, having a fever can be a sign of another condition, such as the flu or pneumonia. Conditions with similar features -- There are other conditions that have symptoms similar to those of acute bronchitis. Chronic cough -- A persistent cough that lasts more than eight weeks is considered a chronic cough,which is discussed in detail elsewhere. Chronic bronchitis -- Chronic bronchitis is defined as a cough that occurs on most days of the month for at least three months of the year during two consecutive years. Pneumonia -- Signs of pneumonia include fever and a fast heart and breathing rate. Postnasal drip -- Postnasal drip occurs when secretions drain from the sinuses into the throat. This can cause the throat to feel irritated, which causes you to feel like you need to clear your throat frequently. Postnasal drip can be caused by the common cold, allergies, sinusitis, or environmental irritants. BRONCHITIS DIAGNOSIS Most people who have a persistent cough after an upper respiratory infection (cold) do not need to see a healthcare provider. Diagnostic testing, such as x- rays, cultures, and blood tests, are not usually needed for people with acute bronchitis. However, testing may be recommended if your diagnosisis not clear based upon your examination or if another condition, such as pneumonia, is suspected. When to seek help -- You should call your healthcare provider if you have any of the following: Fever (temperature greater than 100.4 F or 38 C) A cough that lasts longer than 10 days Chest pain with coughing, difficulty breathing, or coughing up blood A barking cough that makes it hard to speak, especially if it persists Cough accompanied by unexplained weight loss People who are older than 75 do not always have a fever or other concerning symptoms. If you are over 75 years and you have a persistent cough, you should call your clinician to determine if and whenan office visit is recommended. BRONCHITIS TREATMENT Relief of symptoms -- There is no specific treatment for bronchitis, but there are a few treatmentsavailable for the common cold. A nonsteroidal antiinflammatory drug (ibuprofen, naproxen), aspirin, or acetaminophen (Tylenol ) can help to relieve the pain of a sore throat or headache. Pseudoephedrine is a decongestant that can improve nasal congestion. Most drugstores in the [place] carry pseudoephedrine behind the counter, so you must ask for it from the pharmacist (a prescription is not required). Other decongestants, such as phenylephrine, are not as effective as pseudoephedrine. Antihistamines such as diphenhydramine (Benadryl ) may also help, but can cause side effects such as drowsiness and drying of the eyes, nose, and mouth. Heated, humidified, air can improve symptoms of nasal congestion and runny nose, and has few to no side effects. Cough suppressants such as dextromethorphan may be helpful. Antibiotics -- Antibiotics are NOT helpful for most people with bronchitis since the illness is typically caused by a virus. Antibiotics treat bacterial, not viral infections. Antibiotics may be helpful for some patients with other chronic diseases. Many people request antibiotics in the hopes that it will get rid of the cough, and some people even think that antibiotics have helped on previous occasions. However, there is no benefit of antibiotics for most cases of bronchitis. PREVENTING THE SPREAD OF ILLNESS Hand washing is an essential and highly effective way to prevent the spread of infection. Wet your hands with water and plain soap and rub them together for 15 to 30 seconds. Pay special attention tothe fingernails, between the fingers, and the wrists. Rinse your hands thoroughly, and dry with a single use towel. Alcohol-based hand rubs are a good alternative for disinfecting hands if a sink is not available. Spread the hand rub over the entire surface of your hands, fingers, and wrists until dry. You can usehand rubs repeatedly without irritating the skin or losing effectiveness. Hand rubs are available as a liquid or wipe in small, portable sizes that are easy to carry in a pocket or handbag. When a sink is available, you should wash visibly soiled hands with soap and water. Wash your hands before preparing food and eating, and after going to the bathroom, and after coughing, blowing the nose, or sneezing. While it is not always possible to limit contact with people who are ill, avoid touching your eyes, nose, or mouth after direct contact, when possible. In addition, use a tissue to cover your mouth when sneezing or coughing. Throw away used tissues promptly and then wash your hands. Sneezing/coughing into the sleeve of your clothing (at the inner elbow) is another way of containing sprays of saliva and secretions and does not contaminate your hands. Sneezing and coughing without covering your mouth can spread infection to anyone within 6 feet. documented in this encounterC[facility]03-04-2025 NoteHNO ID: [id number] Author: DEMETRIS BRADFORD APRN.PRINTING EQUIPMENT MECHANIC APPRENTICE Service: ? Author Type: Nurse Practitioner Type: Progress Notes Filed: 06/28/2024 16:48 Note Text: [facility] Subjective Sammy Redd is a 44 year old female. Cough Associated symptoms include chills, ear pain (pressure bilateral ears), headaches, sore throat, myalgias, shortness of breath and wheezing. Pt is a 44 y/o female who presents with non-productive cough, chest tightness, wheezing and shortness of breath x 2 days. Pt reports mild nasal congestion and bilateral ear pressure. Pt reports that she is concerned with bronchitis as she has had similar symptoms with bronchitis in the past. No reports of fever at home but does report body aches and chills. Pt reports shortness of breath at rest and on exertion. Pt has tried otc motrin and robitussin with minimal relief. Review of Systems Constitutional: Positive for chills and fatigue. Negative for fever. HENT: Positive for congestion (mild), ear pain (pressure bilateral ears) and sore throat. Negative for postnasal drip. Eyes: Negative. Respiratory: Positive for cough, chest tightness, shortness of breath and wheezing. Cardiovascular: Negative. Gastrointestinal: Negative. Genitourinary: Negative. Musculoskeletal: Positive for myalgias. Neurological: Positive for headaches. Objective BP 118/80 Pulse 90 Temp 36.8 ?C (98.3 ?F) (Tympanic) Resp 18 Wt 94.3 kg (207 lb 14.3 oz) LMP 05/30/2019 (Exact Date) SpO2 100% BMI 40.60 kg/m? PAST MEDICAL HISTORY Diagnosis Date Anesthesia states mom had issues in 2013 leading to air emboli after surgery. pt herself has had no issues. Anxiety Cerebral aneurysm 2015 just watching scanned last 2021 - Dr. Oneal Complicated migraine Endometriosis 75% improvement in abdominal pain post lap surgery Fibromyalgia Hypothyroidism IBS (irritable bowel syndrome) Insulin resistance Kidney stone Lactose intolerance in adult Left thyroid nodule 12/2020 repeat thyroid US 12/2021 Low HDL (under 40) Low serum progesterone worsening symptoms with progesterone rx Lumbar disc disease 05/13/2010 Migraines CADENCE (obstructive sleep apnea) Last polysomnogram in 2012, last use in 2012 Personal history of kidney stones Polycystic ovary syndrome 06/19/2010 Protein S deficiency (HCC) 2007 clotting disorder (just had APPT drawn - in [facility]) PUD (peptic ulcer disease) 2009 treated medically, [...] PYELOTOMY W/REMOVAL CALCULUS 04/27/2008 multiple VAGINAL HYSTERECTOMY ALLERGIES Aleve [Naproxen Sodium], Compazine [Prochlorperazine], Menthol, Metformin, Morphine (Pf), Penicillins, and Adhesive MEDICATIONS diclofenac (VOLTAREN ARTHRITIS PAIN) 1 % topical gel Apply 2 g to affected area three times a day as needed. tiZANidine (ZANAFLEX) 4 mg tablet Take 1 tablet by mouth every 8 hours as needed (muscle spasms). Insulin [place], Disposable, (PEN NEEDLE) 29 gauge x 1/2 1 Each once daily. Cholecalciferol, Vitamin D3, 125 mcg (5,000 unit) cap Take 1 capsule by mouth every morning. In addition to 1,000 international unit(s) every morning vitamin D3-vitamin K2, MK4, 1,000-100 unit-mcg tab Take 1 tablet by mouth every morning. In addition to 5,000 units levothyroxine (SYNTHROID) 88 mcg tablet Take 1 tablet by mouth daily before breakfast. and skip 1 day weekly. LORazepam (ATIVAN) 1 mg tablet Take 1 tablet by mouth two times a day as needed for anxiety for up to 90 days. naltrexone 2 mg tablet Take 1 tablet by mouth once daily. liraglutide (VICTOZA) 0.6 mg/ 0.1 ml subcutaneous pen injector Inject 0.6 mg daily via pen cyanocobalamin 1,000 mcg/mL Inject 1 mL intramuscularly one time a week for 30 days, THEN 1 mL every 2 weeks for 60 days, THEN 1 mL once every month. triamcinolone acetonide (KENALOG) 0.5 % cream Apply 1 application to affected area daily at bedtime. On left lower leg skin lesion at ankle. Apply sparingly. Avoid face/skin fold. Syringe with Needle, Safety (SAFETY-NAVDEEP 10CC SYR 21GX1.5) 10 mL 21 gauge x 1 1/2 syrg 1 Syringe as directed. vitamin b complex (B COMPLETE) tab Take 1 tablet by mouth once daily. ondansetron orally disintegrating (ZOFRAN ODT) 4 mg disintegrating tablet Take 1 tablet by mouth every 6 hours as needed f (more content not included)... [facility]03-04-2025 History of Present illness Narrative* Demetris Bradford, [facility] - 06/28/2024 4:09 PM EST [facility] Subjective Sammy Redd is a 44 year old female. Cough Associated symptoms include chills, ear pain (pressure bilateral ears), headaches, sore throat, myalgias, shortness of breath and wheezing. Pt is a 44 y/o female who presents with non-productive cough, chest tightness, wheezing and shortness of breath x 2 days. Pt reports mild nasal congestion and bilateral ear pressure. Pt reports that she is concerned with bronchitis as she has had similar symptoms with bronchitis inthe past. No reports of fever at home but does report body aches and chills. Pt reports shortness of breath at rest and on exertion. Pt has tried otc motrin and robitussin with minimal relief. Review of Systems Constitutional: Positive for chills and fatigue. Negative for fever. HENT: Positive for congestion (mild), ear pain (pressure bilateral ears) and sore throat. Negative for postnasal drip. Eyes: Negative. Respiratory: Positive for cough, chest tightness, shortness of breath and wheezing. Cardiovascular: Negative. Gastrointestinal: Negative. Genitourinary: Negative. Musculoskeletal: Positive for myalgias. Neurological: Positive for headaches. Objective BP 118/80 Pulse 90 Temp 36.8 C (98.3 F) (Tympanic) Resp 18 Wt 94.3 kg (207 lb 14.3 oz) LMP 05/30/2019 (Exact Date) SpO2 100% BMI 40.60 kg/m PAST MEDICAL HISTORY Diagnosis Date Anesthesia states mom had issues in 2013 leading to air emboli after surgery. pt herself has had no issues. Anxiety Cerebral aneurysm 2015 just watching scanned last 2021 - Dr. Oneal Complicated migraine Endometriosis 75% improvement in abdominal pain post lap surgery Fibromyalgia Hypothyroidism IBS (irritable bowel syndrome) Insulin resistance Kidney stone Lactose intolerance in adult Left thyroid nodule 12/2020 repeat thyroid US 12/2021 Low HDL (under 40) Low serum progesterone worsening symptoms with progesterone rx Lumbar disc disease 05/13/2010 Migraines CADENCE (obstructive sleep apnea) Last polysomnogram in 2012, last use in 2012 Personal history of kidney stones Polycystic ovary syndrome 06/19/2010 Protein S deficiency (HCC) 2008 clotting disorder (just had APPT drawn - in [facility]) PUD (peptic ulcer disease) 2010 treated [...] PYELOTOMY W/REMOVAL CALCULUS 04/27/2008 multiple VAGINAL HYSTERECTOMY ALLERGIES Aleve [Naproxen Sodium], Compazine [Prochlorperazine], Menthol, Metformin, Morphine (Pf),Penicillins, and Adhesive MEDICATIONS diclofenac (VOLTAREN ARTHRITIS PAIN) 1 % topical gel Apply 2 g to affected area three times a day as needed. tiZANidine (ZANAFLEX) 4 mg tablet Take 1 tablet by mouth every 8 hours as needed (muscle spasms). Insulin [place], Disposable, (PEN NEEDLE) 29 gauge x 1/2 1 Each once daily. Cholecalciferol, Vitamin D3, 125 mcg (5,000 unit) cap Take 1 capsule by mouth every morning. In addition to 1,000 international unit(s) every morning vitamin D3-vitamin K2, MK4, 1,000-100 unit-mcg tab Take 1 tablet by mouth every morning. In addition to 5,000 units levothyroxine (SYNTHROID) 88 mcg tablet Take 1 tablet by mouth daily before breakfast. and skip 1 day weekly. LORazepam (ATIVAN) 1 mg tablet Take 1 tablet by mouth two times a day as needed for anxiety for up to 90 days. naltrexone 2 mg tablet Take 1 tablet by mouth once daily. liraglutide (VICTOZA) 0.6 mg/ 0.1 ml subcutaneous pen injector Inject 0.6 mg daily via pen cyanocobalamin 1,000 mcg/mL Inject 1 mL intramuscularly one time a week for 30 days, THEN 1 mL every 2 weeks for 60 days, THEN 1 mL once every month. triamcinolone acetonide (KENALOG) 0.5 % cream Apply 1 application to affected area daily at bedtime. On left lower leg skin lesion at ankle. Apply sparingly. Avoid face/skin fold. Syringe with Needle, Safety (SAFETY-NAVDEEP 10CC SYR 21GX1.5) 10 mL 21 gauge x 1 1/2 syrg 1 Syringe as directed. vitamin b complex (B COMPLETE) tab Take 1 tablet by mouth once daily. ondansetron orally disintegrating (ZOFRAN ODT) 4 mg disintegrating tablet Take 1 tablet by mouth every 6 hours as needed for Nausea/Vomiting. predniSONE (DELTASONE) 20 mg tablet Take 2 tablets by mouth once daily for 4 days. albuterol HFA (PROVENTIL HFA, VENTOLIN HFA) 90 mcg/actuation inhaler Inhale 2 Puffs as instructed every 4 hours as needed for wheezing/shortness of breath. Inhalational Spacing Device 1 Device one time only for 1 dose. dextroamphetamine-amphetamine (ADDERALL) 10 mg tablet Take 1 tablet by mouth once daily for 30 days. busPIRone (BUSPAR) 10 mg tablet Take 1 tablet in the morning and 1 tablet in the evening. (Patient not taking: Reported on 05/05/2024) FAMILY HISTORY Problem Relation Age of Onset Breast Cancer Mother 39 Arthritis Mother Fibromyalgia other (irregular heartbeat) Mother Arthritis Father RA Thyroid Father Hypertension Father Thyroid Cancer Sister Diabetes Brother type 1 Diabetes Brother Type 1 Hypertension Maternal Grandmother Alzheimer's Disease Maternal Grandmother Arthritis Maternal Grandmother other (dementia) Maternal Grandmother Stroke Maternal Grandfather ADD/ADHD Daughter other (Eosinophilic esophagitis) Son other (Abdominal migraines) Son Social History Tobacco Use Smoking status: Never Smokeless tobacco: Never Vaping Use Vaping status: Never Used Substance Use Topics Alcohol use: Yes Comment: twice a year-socially Drug use: No Physical Exam Constitutional: General: She is awake. HENT: Head: Normocephalic. Right Ear: Hearing and tympanic membrane normal. Left Ear: Hearing and tympanic membrane normal. Nose: Right Turbinates: Swollen. Left Turbinates: Swollen. Comments: Erythematous turbinates bilaterally Mouth/Throat: Pharynx: Posterior oropharyngeal erythema (mild) present. Eyes: Conjunctiva/sclera: Conjunctivae normal. Cardiovascular: Rate and Rhythm: Normal rate and regular rhythm. Pulmonary: Effort: Pulmonary effort is normal. Breath sounds: Examination of the right-upper field reveals wheezing. Examination of the left-upperfield reveals wheezing. Examination of the left- middle field reveals wheezing. Wheezing (expiratory) present. Lymphadenopathy: Cervical: No cervical adenopathy. Neurological: Mental Status: She is alert. Assessment and Plan Differential Diagnoses - bronchitis is more likely for the following reason(s): suggested by H&P - viral URI with cough is more likely for the following reason(s): suggested by H&P - pneumonia is less likely for the following reason(s): H&P not suggestive Disposition The patient was discharged. OTC Medications were advised: Procedures ASSESSMENT/PLAN: 1. Bronchitis - ICD9: 490, ICD10: J40 (primary diagnosis) - PREDNISONE 20 MG TABLET - ALBUTEROL SULFATE HFA 90 MCG/ACTUATION AEROSOL INHALER - INHALATIONAL SPACING DEVICE 2. Viral URI with cough - ICD9: 465.9, ICD10: J06.9 - Discussed viral etiology and rationale for treatment. - Symptomatic treatment with prn analgesia - Supportive care with fluids and rest - The patient may also use OTC decongestants prn, OTC cough and cold meds as needed, and warm salt water gargles, throat lozenges and/or OTC throat spray as needed. - recommended COVID/flu/RSV testing, pt declined at this time. - PREDNISONE 20 MG TABLET - ALBUTEROL SULFATE HFA 90 MCG/ACTUATION AEROSOL INHALER - INHALATIONAL SPACING DEVICE Marielle Yang TEACHING PROVIDER (Physician/PA/NETWORKING SPECIALIST) NOTE OF PERSONAL INVOLVEMENT IN CARE: I have personally seen and examined the patient and performed the medical decision-making components. I have reviewed the Advanced Practice Registered Nurse (NETWORKING SPECIALIST) Student's documentation and verified the findings in the note as written. Any additions or changes are noted in bold/italics. Signature: Demetris Bradford Date: 06/28/2024 Time: 4:47 PM Electronically signed by Demetris Bradford APRN.PRINTING EQUIPMENT MECHANIC APPRENTICE at 06/28/2024 4:48 PM EST documented in this encounterC[facility] NotePatient Outreach (FAMPWS) SAMMY REDD ([id number]) 1980 F Date Time Provider Department 06/07/24 JOSE LUIS TOLEDO FAMPWS During your visit today, we recorded the following information about you: Allergies As of Date: 06/07/2024 Noted Allergy Reaction ALEVE (NAPROXEN SODIUM) 04/28/2007 11 - Vomiting Comments: Ibuprofen without problems Vomiting with Aleve with one time use COMPAZINE (PROCHLORPERAZINE) 03/11/2023 1 - Mental Status Change MENTHOL 08/07/2022 2 - Rash METFORMIN 01/23/2017 8 - GI Upset MORPHINE (PF) 03/11/2023 14 - Other: See Comments Comments: Respiratory depression PENICILLINS 04/28/2007 7 - Swelling ADHESIVE 12/26/2020 2 - Rash Date Reviewed: 05/05/2024 Reviewed by: 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 APRN.PRINTING EQUIPMENT MECHANIC APPRENTICE - Fully Assessed Visit Diagnosis:Encounter for screening mammogram for breast cancer [Z12.31] Order(s):[facility] SCREENING [facility] [[id number]] Order #: [id number] FUTURE Prescriptions as of 07/08/2024 - ondansetron (ZOFRAN) 8 mg tablet Take 1 tablet by mouth every 8 hours as needed for nausea/vomiting. - predniSONE (DELTASONE) 10 mg tablet Take 4 tabs daily for 3 days, then 2 tabs daily for 3 days, then 1 tab daily for 3 days with food. - LORazepam (ATIVAN) 1 mg tablet Take 1 tablet by mouth two times a day as needed for anxiety for up to 90 days. - Phentermine HCl (ADIPEX-P) 37.5 mg tablet Take 1 tablet by mouth once daily for 30 days. BMI 38.28 - albuterol HFA (PROVENTIL HFA, VENTOLIN HFA) 90 mcg/actuation inhaler Inhale 2 Puffs as instructed every 4 hours as needed for wheezing/shortness of breath. - albuterol (PROVENTIL) 2.5 mg /3 mL (0.083 %) nebulizer solution Use 3 mL via nebulizer every 4 hours as needed for wheezing/shortness of breath. - sulfamethoxazole-trimethoprim (BACTRIM DS) 800-160 mg per tablet Take 1 tablet by mouth two times a day for 5 days. - clarithromycin (BIAXIN) 500 mg Take 1 tablet by mouth two times a day for 10 days. - dulaglutide (TRULICITY) 0.75 mg/0.5 mL pen injector Inject 0.75 mg subcutaneously one time a week. Inject dose once per week. Discard Pen After - benzonatate (TESSALON PERLE) 100 mg capsule Take 1 capsule by mouth three times a day as needed. - albuterol HFA (PROVENTIL HFA, VENTOLIN HFA) 90 mcg/actuation inhaler Inhale 2 Puffs as instructed every 4 hours as needed for wheezing/shortness of breath. - diclofenac (VOLTAREN ARTHRITIS PAIN) 1 % topical gel Apply 2 g to affected area three times a day as needed. - tiZANidine (ZANAFLEX) 4 mg tablet Take 1 tablet by mouth every 8 hours as needed (muscle spasms). - Insulin [place], Disposable, (PEN NEEDLE) 29 gauge x 1/2 1 Each once daily. - Cholecalciferol, Vitamin D3, 125 mcg (5,000 unit) cap Take 1 capsule by mouth every morning. In addition to 1,000 international unit(s) every morning - vitamin D3-vitamin K2, MK4, 1,000-100 unit-mcg tab Take 1 tablet by mouth every morning. In addition to 5,000 units - levothyroxine (SYNTHROID) 88 mcg tablet Take 1 tablet by mouth daily before breakfast. and skip 1 day weekly. - naltrexone 2 mg tablet Take 1 tablet by mouth once daily. - liraglutide (VICTOZA) 0.6 mg/ 0.1 ml subcutaneous pen injector Inject 0.6 mg daily via pen - cyanocobalamin 1,000 mcg/mL Inject 1 mL intramuscularly one time a week for 30 days, THEN 1 mL every 2 weeks for 60 days, THEN 1 mL once every month. - dextroamphetamine-amphetamine (ADDERALL) 10 mg tablet Take 1 tablet by mouth once daily for 30 days. - triamcinolone acetonide (KENALOG) 0.5 % cream Apply 1 application to affected area daily at bedtime. On left lower leg skin lesion at ankle. Apply sparingly. Avoid face/skin fold. - Syringe with Needle, Safety (SAFETY-NAVDEEP 10CC SYR 21GX1.5) 10 mL 21 gauge x 1 1/2 syrg 1 Syringe as directed. - vitamin b complex (B COMPLETE) tab Take 1 tablet by mouth once daily. - ondansetron orally disintegrating (ZOFRAN ODT) 4 mg disintegrating tablet Take 1 tablet by mouth every 6 hours as needed for Nausea/Vomiting. Problem List As Of Date 06/07/2024 Noted Resolved Renal calculi [N20.0] 05/13/2010 03/10/2017 Hypothyroidism, acquired [E03.9] 05/13/2010 Lumbar disc disease [M51.9] 05/13/2010 Polycystic ovary syndrome [E28.2] 06/19/2010 Rosacea [L71.9] 06/19/2010 Dysmetabolic syndrome [E88.810] 01/15/2011 Acute right flank pain [R10.9] 06/28/2012 [...] sores [K13.79] 10/21/2016 Tick bite [W57.XXXA] 10/21/2016 11 (more content not included)...[facility]01-09-2025 NoteHNO ID: [id number] Author: BRANDI QUINTEROS APRN.PRINTING EQUIPMENT MECHANIC APPRENTICE Service: ? Author Type: Nurse Practitioner Type: Progress Notes Filed: 05/05/2024 12:11 Note Text: Chief Complaint Patient presents with: Pain (Shoulder Pain): Burning ache in Right shoulder x 2 weeks, no injury pt aware of, pain radiates into R side of neck HPI Sammy Redd is a 44 year old female who presents here today for Above Complaints. Sammy is an established patient of Dr. Tre DO. Concerns today... Shoulder pain --- R shoulder pain x 2 weeks. No known fall, injury, or lifting heavy. Unknown cause. Woke up one day with stiffness and pain with movement. Pain is worse with overhead motion and abduction. Pt radiates up R side of neck and slightly into bicep region of R arm. 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 Using ice to area does help. Has been using tylenol, motrin, and half tablet of zanaflex with some relief. Taking zanaflex at night only d/t drowsiness. Went to chiropractor today. No other concerns or complaints. Past medical history, appointments, medications, allergies reviewed. Previous Medical History PAST MEDICAL HISTORY Diagnosis Date Anesthesia states mom had issues in 2013 leading to air emboli after surgery. pt herself has had no issues. Anxiety Cerebral aneurysm 2015 just watching scanned last 2021 - Dr. Oneal Complicated migraine Endometriosis 75% improvement in abdominal pain post lap surgery Fibromyalgia Hypothyroidism IBS (irritable bowel syndrome) Insulin resistance Kidney stone Lactose intolerance in adult Left thyroid nodule 12/2020 repeat thyroid US 12/2021 Low HDL (under 40) Low serum progesterone worsening symptoms with progesterone rx Lumbar disc disease 05/13/2010 Migraines CADENCE (obstructive sleep apnea) Last polysomnogram in 2012, last use in 2012 Personal history of kidney stones Polycystic ovary syndrome 06/19/2010 Protein S deficiency (HCC) 2007 clotting disorder (just had APPT drawn - in [facility]) PUD (peptic ulcer disease) 2010 treated medically, [...] PYELOTOMY W/REMOVAL CALCULUS 04/27/2008 multiple VAGINAL HYSTERECTOMY Family History FAMILY HISTORY Problem Relation Age of Onset Breast Cancer Mother 39 Arthritis Mother Fibromyalgia other (irregular heartbeat) Mother Arthritis Father RA Thyroid Father Hypertension Father Thyroid Cancer Sister Diabetes Brother type 1 Diabetes Brother Type 1 Hypertension Maternal Grandmother Alzheimer's Disease Maternal Grandmother Arthritis Maternal Grandmother other (dementia) Maternal Grandmother Stroke Maternal Grandfather ADD/ADHD Daughter other (Eosinophilic esophagitis) Son other (Abdominal migraines) Son Patient Allergies ALLERGIES Allergen Reactions Aleve [Naproxen Sod* Vomiting Ibuprofen without problems Vomiting with Aleve with one time use Compazine [Prochlor* Mental Status Change Menthol Rash Metformin GI Upset Morphine (Pf) Other: See Comments Respiratory depression Penicillins Swelling Adhesive Rash Current Medications Current Outpatient Medications on File Prior to Visit Medication Sig Insulin [place], Disposable, (PEN NEEDLE) 29 gauge x 1/2 1 Each once daily. Cholecalciferol, Vitamin D3, 125 mcg (5,000 unit) cap Take 1 capsule by mouth every morning. In addition to 1,000 international unit(s) every morning vitamin D3-vitamin K2, MK4, 1,000-100 unit-mcg tab Take 1 tablet by mouth every morning. In addition to 5,000 units acetaminophen 325 mg-caffeine 40 mg-butalbital 50 mg (FIORICET) per capsule Take 1 capsule by mouth every 6 hours as needed for pain or headache. levothyroxine (SYNTHROID) 88 mcg tablet Take 1 tablet by mouth daily before breakfast. and skip 1 day weekly. LORazepam (ATIVAN) 1 mg tablet Take 1 tablet by mouth two times a day as needed for anxiety for up to 90 days. naltrexone 2 mg tablet Take 1 tablet by mouth once daily. liraglutide (VICTOZA) 0.6 mg/ 0.1 ml subcutaneous pen injector Inject 0.6 mg daily via pen cyanocobalamin 1,000 mcg/mL Inject 1 mL intramuscularly one time a week for 30 days, THEN 1 mL every 2 weeks for 60 days, THEN 1 mL once every month. diclofenac (VOLTAREN ARTHRITIS PAIN) 1 (more content not included)...[facility]01-09-2025 History of Present illness Narrative* 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, EMORY.PRINTING EQUIPMENT MECHANIC APPRENTICE - 05/05/2024 11:38 AM EST Chief Complaint Patient presents with: Pain (Shoulder Pain): Burning ache in Right shoulder x 2 weeks, no injury pt aware of, pain radiates into R side of neck HPI Sammy Redd is a 44 year old female who presents here today for Above Complaints. Sammy is an established patient of Dr. rTe DO. Concerns today... Shoulder pain --- R shoulder pain x 2 weeks. No known fall, injury, or lifting heavy. Unknown cause. Woke up one day with stiffness and pain with movement. Pain is worse with overhead motion and abduction. Pt radiatesup R side of neck and slightly into bicep region of R arm. 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 Using ice to area does help. Has been using tylenol, motrin, and half tablet of zanaflex with some relief. Taking zanaflex at night only d/t drowsiness. Went to chiropractor today. No other concerns or complaints. Past medical history, appointments, medications, allergies reviewed. Previous Medical History PAST MEDICAL HISTORY Diagnosis Date Anesthesia states mom had issues in 2013 leading to air emboli after surgery. pt herself has had no issues. Anxiety Cerebral aneurysm 2015 just watching scanned last 2021 - Dr. Oneal Complicated migraine Endometriosis 75% improvement in abdominal pain post lap surgery Fibromyalgia Hypothyroidism IBS (irritable bowel syndrome) Insulin resistance Kidney stone Lactose intolerance in adult Left thyroid nodule 12/2020 repeat thyroid US 12/2021 Low HDL (under 40) Low serum progesterone worsening symptoms with progesterone rx Lumbar disc disease 05/13/2010 Migraines CADENCE (obstructive sleep apnea) Last polysomnogram in 2012, last use in 2012 Personal history of kidney stones Polycystic ovary syndrome 06/19/2010 Protein S deficiency (HCC) 2008 clotting disorder (just had APPT drawn - in [facility]) PUD (peptic ulcer disease) 2009 treated [...] PYELOTOMY W/REMOVAL CALCULUS 04/27/2008 multiple VAGINAL HYSTERECTOMY Family History FAMILY HISTORY Problem Relation Age of Onset Breast Cancer Mother 39 Arthritis Mother Fibromyalgia other (irregular heartbeat) Mother Arthritis Father RA Thyroid Father Hypertension Father Thyroid Cancer Sister Diabetes Brother type 1 Diabetes Brother Type 1 Hypertension Maternal Grandmother Alzheimer's Disease Maternal Grandmother Arthritis Maternal Grandmother other (dementia) Maternal Grandmother Stroke Maternal Grandfather ADD/ADHD Daughter other (Eosinophilic esophagitis) Son other (Abdominal migraines) Son Patient Allergies ALLERGIES Allergen Reactions Aleve [Naproxen Sod* Vomiting Ibuprofen without problems Vomiting with Aleve with one time use Compazine [Prochlor* Mental Status Change Menthol Rash Metformin GI Upset Morphine (Pf) Other: See Comments Respiratory depression Penicillins Swelling Adhesive Rash Current Medications Current Outpatient Medications on File Prior to Visit Medication Sig Insulin [place], Disposable, (PEN NEEDLE) 29 gauge x 1/2 1 Each once daily. Cholecalciferol, Vitamin D3, 125 mcg (5,000 unit) cap Take 1 capsule by mouth every morning. In addition to 1,000 international unit(s) every morning vitamin D3-vitamin K2, MK4, 1,000-100 unit-mcg tab Take 1 tablet by mouth every morning. In addition to 5,000 units acetaminophen 325 mg-caffeine 40 mg-butalbital 50 mg (FIORICET) per capsule Take 1 capsule by mouthevery 6 hours as needed for pain or headache. levothyroxine (SYNTHROID) 88 mcg tablet Take 1 tablet by mouth daily before breakfast. and skip 1 day weekly. LORazepam (ATIVAN) 1 mg tablet Take 1 tablet by mouth two times a day as needed for anxiety for up to 90 days. naltrexone 2 mg tablet Take 1 tablet by mouth once daily. liraglutide (VICTOZA) 0.6 mg/ 0.1 ml subcutaneous pen injector Inject 0.6 mg daily via pen cyanocobalamin 1,000 mcg/mL Inject 1 mL intramuscularly one time a week for 30 days, THEN 1 mL every 2 weeks for 60 days, THEN 1 mL once every month. diclofenac (VOLTAREN ARTHRITIS PAIN) 1 % topical gel Apply 2 g to affected area three times a day as needed. triamcinolone acetonide (KENALOG) 0.5 % cream Apply 1 application to affected area daily at bedtime. On left lower leg skin lesion at ankle. Apply sparingly. Avoid face/skin fold. Syringe with Needle, Safety (SAFETY-NAVDEEP 10CC SYR 21GX1.5) 10 mL 21 gauge x 1 1/2 syrg 1 Syringe as directed. vitamin b complex (B COMPLETE) tab Take 1 tablet by mouth once daily. tiZANidine (ZANAFLEX) 4 mg tablet Take 1 tablet by mouth every 8 hours as needed (muscle spasms). ondansetron orally disintegrating (ZOFRAN ODT) 4 mg disintegrating tablet Take 1 tablet by mouth every 6 hours as needed for Nausea/Vomiting. dextroamphetamine-amphetamine (ADDERALL) 10 mg tablet Take 1 tablet by mouth once daily for 30 days. busPIRone (BUSPAR) 10 mg tablet Take 1 tablet in the morning and 1 tablet in the evening. (Patient not taking: Reported on 05/05/2024) No current facility-administered medications on file prior to visit. Social History Social History Tobacco Use Smoking status: Never Smokeless tobacco: Never Vaping Use Vaping status: Never Used Substance Use Topics Alcohol use: Yes Comment: twice a year-socially Drug use: No REVIEW OF SYSTEMS: as above Reviewed relevant PMHx, PSHx, Social Hx, current medications and allergies. Review of Symptoms REVIEW OF SYSTEMS See HPI. EXAM: BP 122/74 (BP Site: Left Arm, BP Position: Sitting, BP Cuff Size: Regular Adult) Pulse 71 Wt 92.1 kg (203 lb) LMP 05/30/2019 (Exact Date) SpO2 98% BMI 39.65 kg/m General Appearance: Well appearing, alert, in no acute distress, well-hydrated, well nourished.. Skin: Skin color, texture, turgor normal, no suspicious rashes or lesions. Extremities: No deformities, edema, skin discoloration, clubbing or cyanosis. Good capillary refill. , Positive findings: joint location: on right shoulder pain, painful movement, stiffness, and tendonitis. Health Maintenance List Depression Screening Never done Hepatitis C Screening Never done HIV Screening Never done Hepatitis B Vaccine(1 of 3 - 19+ 3-dose series) Never done DTaP,Tdap,Td Vaccine(1 - Tdap) due on 07/21/2017 Mammogram Screening due on 06/11/2022 Influenza Vaccine(1) due on 10/24/2024 Covid-19 Vaccine( - season) due on 04/04/2025 Annual PCP Team Chronic Disease Visit due on 04/04/2025 Cervical Cancer Screening due on 06/25/2025 HPV Vaccine Aged Out ASSESSMENT/PLAN: 1. Acute pain of right shoulder - ICD9: 719.41, ICD10: M25.511 Xray shoulder today. Use voltaren gel and naproxen BID as needed. Continue with muscle relaxer at bedtime as needed. Massage therapy encouraged. Gave prednisone taper rx if no improvement with prior regimen. Start with NSAIDs d/t increase in anxiety with prednisone use. Pt agreeable to plan. Next step would be physical therapy if no improvement. - DICLOFENAC 1 % TOPICAL GEL - NAPROXEN 500 MG TABLET - PREDNISONE 10 MG TABLET - XR SHOULDER GENERAL 3V OR MORE AP/TRUE AP/OTHER RIGHT - MASSAGE THERAPY - TIZANIDINE 4 MG TABLET - CONSULT TO MASSAGE THERAPY RTO as needed if no improvement. Prescription instructions reviewed with patient as applicable. Potential red flag symptoms discussed with the patient. Reviewed appropriate action plan to take if red flag symptoms occur. Patient agreeable to treatment plan. Brandi Rasmussen APRN.PRINTING EQUIPMENT MECHANIC APPRENTICE [address] [place] [address] documented in this encounterC[facility]12-16-[facility]24 Telephone encounter Note * Telephone Encounter - Jose Luis Toledo DO - 04/11/2024 2:32 PM EST The following approved medication requests have been transmitted electronically. Requested Prescriptions Signed Prescriptions Disp Refills Cholecalciferol, Vitamin D3, 125 mcg (5,000 unit) cap 90 capsule 3 Sig: Take 1 capsule by mouth every morning. In addition to 1,000 international unit(s) every morning Authorizing Provider: JOSE LUIS TOLEDO vitamin D3-vitamin K2, MK4, 1,000-100 unit-mcg tab 90 tablet 3 Sig: Take 1 tablet by mouth every morning. In addition to 5,000 units Authorizing Provider: JOSE LUIS TOLEDO DO [facility]12-16-[facility] Miscellaneous Notes* Telephone Encounter - Jose Luis Toledo DO - 04/11/2024 2:32 PM EST The following approved medication requests have been transmitted electronically. Requested Prescriptions Signed Prescriptions Disp Refills Cholecalciferol, Vitamin D3, 125 mcg (5,000 unit) cap 90 capsule 3 Sig: Take 1 capsule by mouth every morning. In addition to 1,000 international unit(s) every morning Authorizing Provider: JOSE LUIS TOLEDO vitamin D3-vitamin K2, MK4, 1,000-100 unit-mcg tab 90 tablet 3 Sig: Take 1 tablet by mouth every morning. In addition to 5,000 units Authorizing Provider: JOSE LUIS TOLEDO DO * Telephone Encounter - Bev Lu MA - 04/11/2024 1:47 PM EST Patient notified. Requesting refill on Vit D 5000 international unit(s) and requesting RX for 1,000international unit(s). Orders pended. Bev Lu MA * Telephone Encounter - Jose Luis Toledo DO - 04/11/2024 7:12 AM EST Please inform patient that her ECHO is overall stable. Unchanged from previous testing Please inform patient that her labs are stable except recommend to increase vitamin D3 by extra 1000 international unit(s) a day with a meal Jose Luis Toledo DO documented in this encounterC[facility]12-16-2024 Telephone encounter Note * Telephone Encounter - Bev Lu MA - 04/11/2024 1:47 PM EST Patient notified. Requesting refill on Vit D 5000 international unit(s) and requesting RX for 1,000international unit(s). Orders pended. Bev Lu MA [facility]12-16-[facility]24 Telephone encounter Note* Telephone Encounter - Jose Luis Toledo DO - 04/11/2024 7:12 AM EST Please inform patient that her ECHO is overall stable. Unchanged from previous testing Please inform patient that her labs are stable except recommend to increase vitamin D3 by extra 1000 international unit(s) a day with a meal Jose Luis Toledo DO [facility]12-12-2024 Telephone encounter Note* Telephone Encounter - Carol Elder LPN - 04/07/2024 10:06 AM EST Spoke with pt gave information provided. Pt voices understanding. [facility]12-12-2024 Miscellaneous Notes* Telephone Encounter - Carol Elder LPN - 04/07/2024 10:06 AM EST Spoke with pt gave information provided. Pt voices understanding. * Telephone Encounter - 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 APRN.CNP - 04/07/2024 9:34 AM EST Please call patient and let her know that thyroid US showed one very small thyroid nodule to L sidethat has no change from prior ultrasounds. Continue to monitor. No need for FNA. Thank you, 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 APRN.PRINTING EQUIPMENT MECHANIC APPRENTICE documented in this encounterC[facility]12-[facility]24 Telephone encounter Note * Telephone Encounter - 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 APRN.CNP - 04/07/2024 9:34 AM EST Please call patient and let her know that thyroid US showed one very small thyroid nodule to L sidethat has no change from prior ultrasounds. Continue to monitor. No need for FNA. Thank you, 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 APRN.PRINTING EQUIPMENT MECHANIC APPRENTICE [facility]12-10-2024 History of Present illness Narrative* Rajani Mcqueen RDMS - 04/05/2024 7:45 AM EST Radiology Service Progress Note PATIENT NAME: Sammy Redd DATE OF SERVICE: April 05, 2024 TIME: 10:10 AM PATIENT IDENTITY VERIFICATION COMPLETED USING TWO (2) IDENTIFIERS: Name and Date of confirmedby patient verbally. FALL SCREENING: Has the patient had 2 falls in the last year or 1 fall with injury or currently using an Ambulatory Assistive Device (Walker, Cane, Wheelchair, Crutches, etc.)? No PATIENT GENDER DATA: Female. status: : No status: NO. PATIENT RELEVANT IMPLANT DATA REVIEWED: Not Applicable PATIENT PRESENTS WITH AN IMPLANTABLE OR ATTACHED DRUG INSPECTOR: No RADIOLOGY DEPARTMENT: Ultrasound PERIPHERAL IV DATA: Not applicable SIGNED BY: Rajani Mcqueen RDMS T April 05, 2024 10:10 AM documented in this encounterCleveland Clinic [facility]12-10-2024 NoteHNO ID: [id number] Author: RAJANI MCQUEEN RDMS Service: ? Author Type: Cotton Candy Maker Type: Progress Notes Filed: 04/05/2024 10:11 Note Text: Radiology Service Progress Note PATIENT NAME: Sammy Redd DATE OF SERVICE: April 05, 2024 TIME: 10:10 AM PATIENT IDENTITY VERIFICATION COMPLETED USING TWO (2) IDENTIFIERS: Name and Date of confirmed by patient verbally. FALL SCREENING: Has the patient had 2 falls in the last year or 1 fall with injury or currently using an Ambulatory Assistive Device (Walker, Cane, Wheelchair, Crutches, etc.)? No PATIENT GENDER DATA: Female. status: : No status: NO. PATIENT RELEVANT IMPLANT DATA REVIEWED: Not Applicable PATIENT PRESENTS WITH AN IMPLANTABLE OR ATTACHED DRUG INSPECTOR: No RADIOLOGY DEPARTMENT: Ultrasound PERIPHERAL IV DATA: Not applicable SIGNED BY: Rajani Mcqueen RDMS T April 05, 2024 10:10 [facility]12-09-2024 NoteHNO ID: [id number] Author: JOSE LUIS TOLEDO, DO Service: ? Author Type: Physician Type: Progress Notes Filed: 04/04/2024 11:20 Note Text: CC: Sammy Redd is a 44 year old female who presents to the office for follow up HPI: Previous visit on 11/26/23 in the office by Rosita Flores CNP, at that time asked her for a divorce yesterday. Had an anxiety attack yesterday and had to call a squad to take her to the ER. Was on the ground for about 20 minutes, shaking, went on for about 1.5 hrs. ER gave her shot of Ativan which was helpful. Started counseling this morning, will be seeing her on a weekly basis. Requesting medication for now to help with her anxiety r/t current situation. Denies SI/HI. rx for ativan was refilled and buspirone added on to use if needed At last OFFICE VISIT on 12/2023 Mood, her and her have been able to meet with a therapist/marriage counselor as well as both starting individual counseling. She feels this is what was needed to help them through what her is struggling with mentally, which affects their marriage as well. Right lower abdominal pain, started a few weeks ago but is worsening. Hx of VIET and BSO. Was seen by CLINICAL BUSINESS ANALYST whom didn't feel this was related to her previous surgery. She has a hx of endometriosis that was severe. She is concerned since is causing her to feel nauseated as well. No vomiting, + decreased appetite Obesity, taking adipex and the naltrexone with benefit without obvious SE, needing rx refilled. Weight down to 199 lbs. Currently Mood, her and her have been able to meet with a therapist/marriage counselor as well as both starting individual counseling. She feels this is what was needed to help them through what her is struggling with mentally, which affects their marriage as well. Obesity, taking adipex and the naltrexone with benefit without obvious SE, needing rx refilled. Weight down to 199 lbs. Hx of thyroid nodule and hypothyroidism, thinks she is due for thyroid US recheck, no new symptoms Does get occasional palpitations and ORTEZ, fmhx of cardiomyopathy in mother. Last echo was 2017 and stable. Fibromyalgia, recently with increased myalgias, making it difficult for her to exercise consistently since she feels she has the flu after exercise with increased muscle aches. PAST MEDICAL HISTORY Diagnosis Date Anesthesia states mom had issues in 2013 leading to air emboli after surgery. pt herself has had no issues. Anxiety Cerebral aneurysm 2016 just watching scanned last 2021 - Dr. Oneal Complicated migraine Endometriosis 75% improvement in abdominal pain post lap surgery Fibromyalgia Hypothyroidism IBS (irritable bowel syndrome) Insulin resistance Kidney stone Lactose intolerance in adult Left thyroid nodule 12/2020 repeat thyroid US 12/2021 Low HDL (under 40) Low serum progesterone worsening symptoms with progesterone rx Lumbar disc disease 05/13/2010 Migraines CADENCE (obstructive sleep apnea) Last polysomnogram in 2012, last use in 2012 Personal history of kidney stones Polycystic ovary syndrome 06/19/2010 Protein S deficiency (HCC) 2007 clotting disorder (just had APPT drawn - in [facility]) PUD (peptic ulcer disease) 2009 treated medically, [...] PYELOTOMY W/REMOVAL CALCULUS 04/27/2008 multiple VAGINAL HYSTERECTOMY Current Outpatient Medications Medication Sig levothyroxine (SYNTHROID) 88 mcg tablet Take 1 tablet by mouth daily before breakfast. and skip 1 day weekly. LORazepam (ATIVAN) 1 mg tablet Take 1 tablet by mouth two times a day as needed for anxiety for up to 90 days. Phentermine HCl (ADIPEX-P) 37.5 mg tablet Take 1 tablet by mouth once daily for 30 days. BMI 38.28 naltrexone 2 mg tablet Take 1 tablet by mouth once daily. acetaminophen 325 mg-caffeine 40 mg-butalbital 50 mg (FIORICET) per capsule Take 1 capsule by mouth every 6 hours as needed for pain or headache. liraglutide (VICTOZA) 0.6 mg/ 0.1 ml subcutaneous pen injector Inject 0.6 mg daily via pen cyanocobalamin 1,000 mcg/mL Inject 1 mL intramuscularly one time a week for 30 days, THEN 1 mL every 2 weeks for 60 days, THEN 1 mL once every month. dextroamphetamine-amphetamine (ADDERALL) 10 mg tablet Take 1 tablet by mouth on (more content not included)...[facility]12-09-2024 History of Present illness Narrative* Jose Luis Toledo, DO - 04/04/2024 11:15 AM EST CC: Sammy Redd is a 44 year old female who presents to the office for follow up HPI: Previous visit on 11/26/23 in the office by Rosita Flores CNP, at that time asked her for a divorce yesterday. Had an anxiety attack yesterday and had to call a squad to take her to the ER. Was on the ground for about 20 minutes, shaking, went on for about 1.5 hrs. ER gave her shot of Ativan which was helpful. Started counseling this morning, will be seeing her on a weekly basis. Requesting medication for now to help with her anxiety r/t current situation. DeniesSI/HI. rx for ativan was refilled and buspirone added on to use if needed At last OFFICE VISIT on 12/2023 Mood, her and her have been able to meet with a therapist/marriage counselor as well as both starting individual counseling. She feels this is what was needed to help them through what her is struggling with mentally, which affects their marriage as well. Right lower abdominal pain, started a few weeks ago but is worsening. Hx of VIET and BSO. Was seen by CLINICAL BUSINESS ANALYST whom didn't feel this was related to her previous surgery. She has a hx of endometriosis that was severe. She is concerned since is causing her to feel nauseated as well. No vomiting, + decreased appetite Obesity, taking adipex and the naltrexone with benefit without obvious SE, needing rx refilled. Weight down to 199 lbs. Currently Mood, her and her have been able to meet with a therapist/marriage counselor as well as both starting individual counseling. She feels this is what was needed to help them through what her is struggling with mentally, which affects their marriage as well. Obesity, taking adipex and the naltrexone with benefit without obvious SE, needing rx refilled. Weight down to 199 lbs. Hx of thyroid nodule and hypothyroidism, thinks she is due for thyroid US recheck, no new symptoms Does get occasional palpitations and ORTEZ, fmhx of cardiomyopathy in mother. Last echo was 2018 and stable. Fibromyalgia, recently with increased myalgias, making it difficult for her to exercise consistently since she feels she has the flu after exercise with increased muscle aches. PAST MEDICAL HISTORY Diagnosis Date Anesthesia states mom had issues in 2013 leading to air emboli after surgery. pt herself has had no issues. Anxiety Cerebral aneurysm 2015 just watching scanned last 2021 - Dr. Oneal Complicated migraine Endometriosis 75% improvement in abdominal pain post lap surgery Fibromyalgia Hypothyroidism IBS (irritable bowel syndrome) Insulin resistance Kidney stone Lactose intolerance in adult Left thyroid nodule 12/2020 repeat thyroid US 12/2021 Low HDL (under 40) Low serum progesterone worsening symptoms with progesterone rx Lumbar disc disease 05/13/2010 Migraines CADENCE (obstructive sleep apnea) Last polysomnogram in 2012, last use in 2012 Personal history of kidney stones Polycystic ovary syndrome 06/19/2010 Protein S deficiency (HCC) 2008 clotting disorder (just had APPT drawn - in [facility]) PUD (peptic ulcer disease) 2009 treated [...] PYELOTOMY W/REMOVAL CALCULUS 04/27/2008 multiple VAGINAL HYSTERECTOMY Current Outpatient Medications Medication Sig levothyroxine (SYNTHROID) 88 mcg tablet Take 1 tablet by mouth daily before breakfast. and skip 1 day weekly. LORazepam (ATIVAN) 1 mg tablet Take 1 tablet by mouth two times a day as needed for anxiety for up to 90 days. Phentermine HCl (ADIPEX-P) 37.5 mg tablet Take 1 tablet by mouth once daily for 30 days. BMI 38.28 naltrexone 2 mg tablet Take 1 tablet by mouth once daily. acetaminophen 325 mg-caffeine 40 mg-butalbital 50 mg (FIORICET) per capsule Take 1 capsule by mouthevery 6 hours as needed for pain or headache. liraglutide (VICTOZA) 0.6 mg/ 0.1 ml subcutaneous pen injector Inject 0.6 mg daily via pen cyanocobalamin 1,000 mcg/mL Inject 1 mL intramuscularly one time a week for 30 days, THEN 1 mL every 2 weeks for 60 days, THEN 1 mL once every month. dextroamphetamine-amphetamine (ADDERALL) 10 mg tablet Take 1 tablet by mouth once daily for 30 days. busPIRone (BUSPAR) 10 mg tablet Take 1 tablet in the morning and 1 tablet in the evening. diclofenac (VOLTAREN ARTHRITIS PAIN) 1 % topical gel Apply 2 g to affected area three times a day as needed. triamcinolone acetonide (KENALOG) 0.5 % cream Apply 1 application to affected area daily at bedtime. On left lower leg skin lesion at ankle. Apply sparingly. Avoid face/skin fold. Syringe with Needle, Safety (SAFETY-NAVDEEP 10CC SYR 21GX1.5) 10 mL 21 gauge x 1 1/2 syrg 1 Syringe as directed. vitamin b complex (B COMPLETE) tab Take 1 tablet by mouth once daily. tiZANidine (ZANAFLEX) 4 mg tablet Take 1 tablet by mouth every 8 hours as needed (muscle spasms). Cholecalciferol, Vitamin D3, 125 mcg (5,000 unit) cap Take 1 capsule by mouth once daily. (Patient taking differently: Take 5,000 Units by mouth every morning.) ondansetron orally disintegrating (ZOFRAN ODT) 4 mg disintegrating tablet Take 1 tablet by mouth every 6 hours as needed for Nausea/Vomiting. No current facility-administered medications for this visit. ALLERGIES Allergen Reactions Aleve [Naproxen Sod* Vomiting Ibuprofen without problems Vomiting with Aleve with one time use Compazine [Prochlor* Mental Status Change Menthol Rash Metformin GI Upset Morphine (Pf) Other: See Comments Respiratory depression Penicillins Swelling Adhesive Rash Social History Tobacco Use Smoking status: Never Smokeless tobacco: Never Vaping Use Vaping status: Never Used Substance Use Topics Alcohol use: Yes Comment: twice a year-socially Drug use: No ROS: See HPI PE: BP 126/60 Pulse 72 Temp (Src) 97.2 (Temporal) Resp 16 Wt 201 lb 1 oz (91.2kg) LMP 05/30/2019 Gen: A&OX3, NAD, non-toxic appearing HEENT: PERRLA, EOMs intact b/l, nares without drainage, pharynx without erythema, exudate, lesions,or drainage. Uvula midline. Neck: No LAD, no thyromegaly, no meningismus. CV: RRR, no murmur Lungs: CTA b/l, no wheezing Skin: No rashes, lesions, or wounds on exposed skin. Central obesity No edema, normal pulses ASSESSMENT/PLAN: 1. Hypothyroidism, acquired - ICD9: 244.9, ICD10: E03.9 (primary diagnosis) - Instructed patient on importance of taking on an empty stomach either first thing in the morning or at bedtime. - LEVOTHYROXINE 88 MCG TABLET - THYROID STIMULATING HORMONE - US THYROID/PARATHYROID - T4 FREE/FREE THYROXINE - T3, FREE 2. Impaired concentration - ICD9: 799.51, ICD10: R41.840 rx refilled, stable - LORAZEPAM 1 MG TABLET 3. Anxiety disorder, unspecified type - ICD9: 300.00, ICD10: F41.9 rx refilled, stable, continue counseling - LORAZEPAM 1 MG TABLET - NALTREXONE 2 MG TABLET 4. PRASHANTH (generalized anxiety disorder) - ICD9: 300.02, ICD10: F41.1 rx refilled, stable, continue counseling - LORAZEPAM 1 MG TABLET 5. Situational anxiety - ICD9: 300.09, ICD10: F41.8 rx refilled, stable, continue counseling - LORAZEPAM 1 MG TABLET 6. Obesity, Class II, BMI 35-39.9 - ICD9: 278.00, ICD10: E66.812 Continue adipex Restart Victoza, hx of PCOS and dysmetabolic syndrome and hyperinsulinemia - PHENTERMINE 37.5 MG TABLET 7. Other migraine without status migrainosus, not intractable - ICD9: 346.80, ICD10: G43.809 rx refilled, chronic - [id number] 50 MG-325 MG-40 MG CAPSULE 8. Vitamin B12 deficiency - ICD9: 266.2, ICD10: E53.8 - VITAMIN B12 9. IFG (impaired fasting glucose) - ICD9: 790.21, ICD10: R73.01 Continue adipex Restart Victoza, hx of PCOS and dysmetabolic syndrome and hyperinsulinemia - HEMOGLOBIN A1C - COMPREHENSIVE METABOLIC PANEL - INSULIN ASSAY BLOOD - LIRAGLUTIDE 0.6 MG/0.1 ML (18 MG/3 ML) SUBCUTANEOUS PEN INJECTOR 10. Thyroid nodule - ICD9: 241.0, ICD10: E04.1 Check thyroid labs and thyroid US as ordered. - THYROID STIMULATING HORMONE - US THYROID/PARATHYROID - T4 FREE/FREE THYROXINE - T3, FREE 11. Dyslipidemia - ICD9: 272.4, ICD10: E78.5 - Control undetermined, due for labs - Continue current medications - Counseled on healthy diet and regular exercise - COMPREHENSIVE METABOLIC PANEL - COMPLETE BLOOD COUNT AND DIFFERENTIAL - LIRAGLUTIDE 0.6 MG/0.1 ML (18 MG/3 ML) SUBCUTANEOUS PEN INJECTOR - ECHO - PERFLUTREN LIPID MICROSPHERES 1.1 MG/ML INJECTION IN NS 10 ML - SODIUM CHLORIDE 0.9 % (FLUSH) INJECTION SYRINGE 12. Dysmetabolic syndrome - ICD9: 277.7, ICD10: E88.810 Continue adipex Restart Victoza, hx of PCOS and dysmetabolic syndrome and hyperinsulinemia - LIRAGLUTIDE 0.6 MG/0.1 ML (18 MG/3 ML) SUBCUTANEOUS PEN INJECTOR 13. Vitamin D deficiency - ICD9: 268.9, ICD10: E55.9 - VITAMIN D 25 HYDROXY 14. Hyperinsulinemia - ICD9: 251.1, ICD10: E16.1 Continue adipex Restart Victoza, hx of PCOS and dysmetabolic syndrome and hyperinsulinemia - LIRAGLUTIDE 0.6 MG/0.1 ML (18 MG/3 ML) SUBCUTANEOUS PEN INJECTOR 15. ORTEZ (dyspnea on exertion) - ICD9: 786.09, ICD10: R06.09 See above - ECHO - PERFLUTREN LIPID MICROSPHERES 1.1 MG/ML INJECTION IN NS 10 ML - SODIUM CHLORIDE 0.9 % (FLUSH) INJECTION SYRINGE Jose Luis Toledo DO Return if no improvement. Follow up with Jose Luis Toledo DO. To ER if develops chest pain, shortness of breath. Discussed risks, benefits, alternatives, and potential side effects of medications. Patient/Guardian expressed understanding and agreed with the plan. See patient instructions. Jose Luis Toledo DO [address] [place] [address] documented in this encounterC[facility]10[facility] Telephone encounter Note * Telephone Encounter - Bertha Rivera LPN - 02/09/2024 1:02 PM EDT Pt. informed via my Chart. [facility]10-15-2024 Miscellaneous Notes* Telephone Encounter - Bertha Sarmiento LPN - 02/09/2024 1:02 PM EDT Pt. informed via my Chart. * Telephone Encounter - Jose Luis Toledo DO - 02/09/2024 10:50 AM EDT Please inform patient that CT abd/pelvis is normal appearing Jose Luis Toledo DO documented in this encounterCleveland Clinic [facility]10-15-2024 Telephone encounter Note * Telephone Encounter - Jose Luis Toledo DO - 02/09/2024 10:50 AM EDT Please inform patient that CT abd/pelvis is normal appearing Jose Luis Toledo DO [facility]09-24-2024 Telephone encounter Note* Telephone Encounter - Bertha Rivera LPN - 01/19/2024 4:52 PM EDT Pt. informed via My Chart. [facility]09-24-2024 Miscellaneous Notes* Telephone Encounter - Bertha Sarmiento LPN - 01/19/2024 4:52 PM EDT Pt. informed via My Chart. * Telephone Encounter - Jose Luis Toledo DO - 01/19/2024 4:49 PM EDT Please let her know I sent in rx as below Jose Luis Toledo DO The following approved medication requests have been transmitted electronically. Requested Prescriptions Signed Prescriptions Disp Refills naltrexone 0.5 mg capsule (CPD) 30 capsule 2 Sig: Take 1 capsule by mouth once daily. To add to the 2 mg dose daily Authorizing Provider: JOSE LUIS TOLEDO DO * Telephone Encounter - Giana Alicea MA - 01/14/2024 12:55 PM EDT Please see pt message -- Mariluz, I sent message for a Perscription of 0.05 of my LDN cause I can't level up from 2mg to 4mg its a big jump. Nurse wrote back saying I have refills but I called [facility] and they said i don't cause they filled them all at once. I called the nurse and she is saying I should still have refills. [facility] pharmacy says no cause its compound medicine they just fill it all. When I started the medicine i started taking it at 0.05mg and then the next week I took two of the 0.05 then 3 of the 0 05 to get to 2 mg. I'm on the 2mg but to get to 4mg I need to go up slow. So I'm not sure what to do lol...stay on 2mg til i see you in Dec or can you refill the 0.05? documented in this encounterCleveland [facility]09-24-2024 Telephone encounter Note * Telephone Encounter - Jose Luis Toledo DO - 01/19/2024 4:49 PM EDT Please let her know I sent in rx as below Jose Luis Toledo DO The following approved medication requests have been transmitted electronically. Requested Prescriptions Signed Prescriptions Disp Refills naltrexone 0.5 mg capsule (CPD) 30 capsule 2 Sig: Take 1 capsule by mouth once daily. To add to the 2 mg dose daily Authorizing Provider: JOSE LUIS TOLEDO DO [facility]09-19-2024 Telephone encounter Note* Telephone Encounter - Giana Alicea MA - 01/14/2024 12:55 PM EDT Please see pt message -- Mariluz, I sent message for a Perscription of 0.05 of my LDN cause I can't level up from 2mg to 4mg its a big jump. Nurse wrote back saying I have refills but I called [facility] and they said i don't cause they filled them all at once. I called the nurse and she is saying I should still have refills. [facility] pharmacy says no cause its compound medicine they just fill it all. When I started the medicine i started taking it at 0.05mg and then the next week I took two of the 0.05 then 3 of the 0 05 to get to 2 mg. I'm on the 2mg but to get to 4mg I need to go up slow. So I'm not sure what to do lol...stay on 2mg til i see you in Dec or can you refill the 0.05? [facility]09-19-2024 Telephone encounter Note* Telephone Encounter - Giana Alicea MA - 01/14/2024 12:53 PM EDT Turned into TE Giana Alicea MA [facility]09-19-2024 Miscellaneous Notes* Telephone Encounter - Giana Alicea MA - 01/14/2024 12:53 PM EDT Turned into TE Giana Alicea MA documented in this encounterCleveland Clinic [facility]09-19-2024 History of Present illness Narrative* Reef Evens Dee RT(R) - 01/14/2024 11:20 AM EDT Radiology Service Progress Note DATE OF SERVICE: January 14, 2024 TIME: 2:59 PM PATIENT IDENTITY VERIFICATION COMPLETED USING TWO (2) STANDARD IDENTIFIERS: Name and Date of confirmed by patient verbally. FALL SCREENING: Has the patient had 2 falls in the last year or 1 fall with injury or currently using an Ambulatory Assistive Device (Walker, Cane, Wheelchair, Crutches, etc.)? No PATIENT GENDER DATA: Female. status: : No status: NO. PATIENT RELEVANT IMPLANT DATA REVIEWED: Yes PATIENT PRESENTS WITH AN IMPLANTABLE OR ATTACHED DRUG INSPECTOR: No ALLERGIES: Reviewed and unchanged CONTRAST ALLERGY: NO. EXAM: CT -CONTRAST INDUCED NEPHROPATHY RISK FACTORS: Not applicable CREATININE: Creatinine Date Value Ref Range Status 01/04/2024 0.68 0.58 - 0.96 mg/dL Final 08/10/2023 0.64 0.58 - 0.96 mg/dL Final 03/23/2023 0.66 0.58 - 0.96 mg/dL Final Estimated Glomerular Filtration Rate Date Value Ref Range Status 01/04/2024 111 >=60 mL/min/1.73m Final Comment: Estimated Glomerular Filtration Rate (eGFR) is calculated using the 2020 CKD-EPI creatinine equation. This equation utilizes serum creatinine, sex, and age as parameters. The creatinine assay has traceable calibration to isotope dilution- mass spectrometry. Refer to KDIGO guidelines for clinical interpretation. In patients with unstable renal function, e.g. those with acute kidney injury, the eGFRmay not accurately reflect actual GFR. eGFR- Date Value Ref Range Status 01/10/2021 >60 Final P.O.C.T. RESULTS: POC done: Yes, See Lab Tab January 14, 2024 TREATMENT: N/A PERIPHERAL IV DATA: Ambulatory: A peripheral IV was started in the Left antecubital site with a Angio cath: 22 gauge. RADIOLOGY DEPARTMENT: CT; Exam(s) Completed: Abdomen/Pelvis SIGNATURE: RT Jone(R) PATIENT NAME: Sammy Redd DATE: January 14, 2024 TIME: 2:59 PM documented in this encounterCleveland Clinic [facility]09-17-2024 Telephone encounter Note * Telephone Encounter - Leo Rubio RN - 01/12/2024 2:24 PM EDT Patient reports [facility] pharmacy tells her they never received the Rx for naltrexone 0.5 mg. Advised Rxwas sent to [facility] pharmacy on 11-26-23 for 30 cap and 2 refills and receipt states they received it. Patient will call pharmacy, to confirm. [facility]09-17-[facility]24 Miscellaneous Notes* Telephone Encounter - Leo Rubio RN - 01/12/2024 2:24 PM EDT Patient reports [facility] pharmacy tells her they never received the Rx for naltrexone 0.5 mg. Advised Rxwas sent to [facility] pharmacy on 11-26-23 for 30 cap and 2 refills and receipt states they received it. Patient will call pharmacy, to confirm. documented in this encounterCleveland Clinic [facility]09-10-2024 History of Present illness Narrative* Jose Luis Toledo DO - 01/05/2024 5:28 PM EDT CC: Sammy Redd is a 43 year old female who presents to the office for follow up HPI: Just recently seen on 11/26/23 in the office by Rosita Flores CNP, at that time asked her for a divorce yesterday. Had an anxiety attack yesterday and had to call a squad to take her to the ER. Was on the ground for about 20 minutes, shaking, went on for about 1.5 hrs. ER gave her shot of Ativan which was helpful. Started counseling this morning, will be seeing her on a weekly basis. Requesting medication for now to help with her anxiety r/t current situation. DeniesSI/HI. rx for ativan was refilled and buspirone added on to use if needed Currently Mood, her and her have been able to meet with a therapist/marriage counselor as well as both starting individual counseling. She feels this is what was needed to help them through what her is struggling with mentally, which affects their marriage as well. Right lower abdominal pain, started a few weeks ago but is worsening. Hx of VIET and BSO. Was seen by CLINICAL BUSINESS ANALYST whom didn't feel this was related to her previous surgery. She has a hx of endometriosis that was severe. She is concerned since is causing her to feel nauseated as well. No vomiting, + decreased appetite Obesity, taking adipex and the naltrexone with benefit without obvious SE, needing rx refilled. Weight down to 199 lbs. PAST MEDICAL HISTORY No date: Anesthesia Comment: states mom had issues in 2013 leading to air emboli after surgery. pt herself has had no issues. No date: Anxiety 2016: Cerebral aneurysm Comment: just watching scanned last 2021 - Dr. Oneal No date: Complicated migraine No date: Endometriosis Comment: 75% improvement in abdominal pain post lap surgery No date: Fibromyalgia No date: Hypothyroidism No date: IBS (irritable bowel syndrome) No date: Insulin resistance No date: Kidney stone No date: Lactose intolerance in adult 12/2020: Left thyroid nodule Comment: repeat thyroid US 12/2021 No date: Low HDL (under 40) No date: Low serum progesterone Comment: worsening symptoms with progesterone rx 05/13/2010: Lumbar disc disease No date: Migraines No date: CADENCE (obstructive sleep apnea) Comment: Last polysomnogram in 2012, last use in 2012 No date: Personal history of kidney stones 06/19/2010: Polycystic ovary syndrome 2008: Protein S deficiency (HCC) Comment: clotting disorder (just had APPT drawn - in [facility]) 2010: PUD (peptic ulcer disease) Comment: treated medically, repeat EGD neg in 2014 2008: Renal calculi Comment: associated to low citric acid, h/o hypercalciuria 06/19/2010: Rosacea 2010: Shingles Comment: right flank area into right upper abdomen No date: Vitamin D deficiency PAST SURGICAL HISTORY No date: APPENDECTOMY 08/16/2014: COLONOSCOPY FLX DX W/COLLJ SPEC WHEN PFRMD Comment: Colonoscopy-repeat at 50 08/16/2014: ESOPHAGOGASTRODUODENOSCOPY TRANSORAL DIAGNOSTIC Comment: EGD 04/27/2003: LAPAROSCOPY SURG CHOLECYSTECTOMY Comment: Cholecystectomy, lap 07/30/2021: OVARIAN CYSTECTOMY; Bilateral No date: PAST SURGICAL HISTORY OF Comment: Laparoscopy for endometriosis No date: PAST SURGICAL HISTORY OF Comment: d&c No date: PAST SURGICAL HISTORY OF Comment: wisdom teeth 04/27/2008: PYELOTOMY W/REMOVAL CALCULUS Comment: multiple No date: VAGINAL HYSTERECTOMY Current Outpatient Medications Medication Sig cyanocobalamin 1,000 mcg/mL Inject 1 mL intramuscularly one time a week for 30 days, THEN 1 mL every 2 weeks for 60 days, THEN 1 mL once every month. naltrexone 2 mg tablet Take 1 tablet by mouth once daily. dextroamphetamine-amphetamine (ADDERALL) 10 mg tablet Take 1 tablet by mouth once daily for 30 days. Phentermine HCl (ADIPEX-P) 37.5 mg tablet Take 1 tablet by mouth once daily for 30 days. BMI 38.28 iv contrast (will be provided with radiology test) CT ABD/PEL -Inject, intravenously, once for 1 dose.No IV access, insert saline lock prior to the beginning of sedation, infusion, injection of imaging exam. Discontinue saline lock post exam. If Pt. has a central line or IVAD, may access for administration according to line specific nursing protocol. Once exam is complete flush line and de-accessaccording to line specific nursing protocol in the CT contrast administration guidelines link. enteric contrast (will be provided with radiology test) For CT ABD/PEL W IVCON Routine order Administer, As Directed One Time Only, via Oral, Rectal, both Oral and Rectal, Enteric Tube, Stoma or Indwelling Catheter, Enteric Contrast as designated per enteric contrast guidelines busPIRone (BUSPAR) 10 mg tablet Take 1 tablet in the morning and 1 tablet in the evening. naltrexone 0.5 mg capsule (CPD) Take 1 capsule by mouth once daily. LORazepam (ATIVAN) 1 mg tablet Take 1 tablet by mouth two times a day as needed for anxiety for up to 90 days. diclofenac (VOLTAREN ARTHRITIS PAIN) 1 % topical gel Apply 2 g to affected area three times a day as needed. triamcinolone acetonide (KENALOG) 0.5 % cream Apply 1 application to affected area daily at bedtime. On left lower leg skin lesion at ankle. Apply sparingly. Avoid face/skin fold. Syringe with Needle, Safety (SAFETY-NAVDEEP 10CC SYR 21GX1.5) 10 mL 21 gauge x 1 1/2 syrg 1 Syringe as directed. vitamin b complex (B COMPLETE) tab Take 1 tablet by mouth once daily. levothyroxine (SYNTHROID) 88 mcg tablet Take 1 tablet by mouth daily before breakfast. and skip 1 day weekly. tiZANidine (ZANAFLEX) 4 mg tablet Take 1 tablet by mouth every 8 hours as needed (muscle spasms). Cholecalciferol, Vitamin D3, 125 mcg (5,000 unit) cap Take 1 capsule by mouth once daily. (Patient taking differently: Take 5,000 Units by mouth every morning.) ondansetron orally disintegrating (ZOFRAN ODT) 4 mg disintegrating tablet Take 1 tablet by mouth every 6 hours as needed for Nausea/Vomiting. No current facility-administered medications for this visit. ALLERGIES Allergen Reactions Aleve [Naproxen Sod* Vomiting Ibuprofen without problems Vomiting with Aleve with one time use Compazine [Prochlor* Mental Status Change Menthol Rash Metformin GI Upset Morphine (Pf) Other: See Comments Respiratory depression Penicillins Swelling Adhesive Rash Social History Tobacco Use Smoking status: Never Smokeless tobacco: Never Vaping Use Vaping status: Never Used Substance Use Topics Alcohol use: Yes Comment: twice a year-socially Drug use: No ROS: See HPI PE: BP 124/64 Pulse 68 Temp (Src) 97.7 (Left Tympanic) Resp 12 Wt 199 lb (90.3kg) LMP 05/30/2019 Gen: A&OX3, NAD, non-toxic appearing, appears mildly uncomfortable while sitting in office HEENT: PERRLA, EOMs intact b/l, nares without drainage, pharynx without erythema, exudate, lesions,or drainage. Uvula midline. Neck: No LAD, no thyromegaly, no meningismus. CV: RRR, no murmur Lungs: CTA b/l, no wheezing Skin: No rashes, lesions, or wounds on exposed skin. Central obesity Abd: + TTP RLQ with guarding present, no rebound, normal to slightly hyperactive bowel sounds, no obvious palpable masses but this is limited due to obesity ASSESSMENT/PLAN: 1. Anxiety disorder, unspecified type - ICD9: 300.00, ICD10: F41.9 (primary diagnosis) rx refilled Continue buspirone and prn ativan - NALTREXONE 2 MG TABLET 2. Vitamin B12 deficiency - ICD9: 266.2, ICD10: E53.8 rx refilled. - CYANOCOBALAMIN (VIT B-12) 1,000 MCG/ML INJECTION SOLUTION 3. Impaired concentration - ICD9: 799.51, ICD10: R41.840 rx refilled Chronic, stable - DEXTROAMPHETAMINE-AMPHETAMINE 10 MG TABLET 4. Obesity, Class II, BMI [...] track your calories and exercise as well. Continue same medications - PHENTERMINE 37.5 MG TABLET 5. Endometriosis - ICD9: 617.9, ICD10: N80.9 Need for further imaging, concerns due to worsening RLQ abd pain, hx of VIET BSO with severe endometriosis - CT ABD/PEL W IVCON - IV CONTRAST (RADIOLOGY PROCEDURE) - ENTERIC CONTRAST (RADIOLOGY PROCEDURE) - CREATININE BLD 6. Right lower quadrant abdominal pain - ICD9: 789.03, ICD10: R10.31 Need for further imaging, concerns due to worsening RLQ abd pain, hx of VIET BSO with severe endometriosis - CT ABD/PEL W IVCON - IV CONTRAST (RADIOLOGY PROCEDURE) - ENTERIC CONTRAST (RADIOLOGY PROCEDURE) - CREATININE BLD Jose Luis Toledo DO Return if no improvement. Follow up with Jose Luis Toledo DO. To ER if develops chest pain, shortness of breath. Discussed risks, benefits, alternatives, and potential side effects of medications. Patient/Guardian expressed understanding and agreed with the plan. See patient instructions. Jose Luis Toledo DO [id number] [place] [address] documented in this encounterC[facility] Instructions* Patient Instructions* Jose Luis Toledo DO - 01/04/2024 2:31 PM EDT At least vitamin B6 50-100 mg a day Within a B complex daily in the morning Vitamin D3 at least 2000 international unit(s) a day Vitamin K2 50 mg Magnesium 250-500 mg [place] [employer] Bender Hand Dr. Rm Garza documented in this encounterC[facility]08-01-2024 History of Present illness Narrative* Dee Flores APRN.PRINTING EQUIPMENT MECHANIC APPRENTICE - 11/26/2023 12:08 PM EDT Chief Complaint Patient presents with: Anxiety: Panic attacks, needs a daily medication HPI Sammy Redd is a 43 year old female who presents here today for Above Complaints.. asked her for a divorce yesterday. Had an anxiety attack yesterday and had to call a squad to take her to the ER. Was on the ground for about 20 minutes, shaking, went on for about 1.5 hrs. ER gave her shot of Ativan which was helpful. Started counseling this morning, will be seeing her on a weekly basis. Requesting medication for now to help with her anxiety r/t current situation. DeniesSI/HI. Past medical history, appointments, medications, allergies reviewed. Previous Medical History PAST MEDICAL HISTORY No date: Anesthesia Comment: states mom had issues in 2013 leading to air emboli after surgery. pt herself has had no issues. No date: Anxiety 2016: Cerebral aneurysm Comment: just watching scanned last 2021 - Dr. Oneal No date: Complicated migraine No date: Endometriosis Comment: 75% improvement in abdominal pain post lap surgery No date: Fibromyalgia No date: Hypothyroidism No date: IBS (irritable bowel syndrome) No date: Insulin resistance No date: Kidney stone No date: Lactose intolerance in adult 12/2020: Left thyroid nodule Comment: repeat thyroid US 12/2021 No date: Low HDL (under 40) No date: Low serum progesterone Comment: worsening symptoms with progesterone rx 05/13/2010: Lumbar disc disease No date: Migraines No date: CADENCE (obstructive sleep apnea) Comment: Last polysomnogram in 2012, last use in 2012 No date: Personal history of kidney stones 06/19/2010: Polycystic ovary syndrome 2007: Protein S deficiency (HCC) Comment: clotting disorder (just had APPT drawn - in [facility]) 2009: PUD (peptic ulcer disease) Comment: treated medically, repeat EGD neg in 2014 2008: Renal calculi Comment: associated to low citric acid, h/o hypercalciuria 06/19/2010: Rosacea 2010: Shingles Comment: right flank area into right upper abdomen No date: Vitamin D deficiency Previous Surgical History PAST SURGICAL HISTORY No date: APPENDECTOMY 08/16/2014: COLONOSCOPY FLX DX W/COLLJ SPEC WHEN PFRMD Comment: Colonoscopy-repeat at 50 08/16/2014: ESOPHAGOGASTRODUODENOSCOPY TRANSORAL DIAGNOSTIC Comment: EGD 04/27/2003: LAPAROSCOPY SURG CHOLECYSTECTOMY Comment: Cholecystectomy, lap 07/30/2021: OVARIAN CYSTECTOMY; Bilateral No date: PAST SURGICAL HISTORY OF Comment: Laparoscopy for endometriosis No date: PAST SURGICAL HISTORY OF Comment: d&c No date: PAST SURGICAL HISTORY OF Comment: wisdom teeth 04/27/2008: PYELOTOMY W/REMOVAL CALCULUS Comment: multiple No date: VAGINAL HYSTERECTOMY Family History FAMILY HISTORY Problem Relation Age of Onset Breast Cancer Mother 39 Arthritis Mother Fibromyalgia other (irregular heartbeat) Mother Arthritis Father RA Thyroid Father Hypertension Father Thyroid Cancer Sister Diabetes Brother type 1 Diabetes Brother Type 1 Hypertension Maternal Grandmother Alzheimer's Disease Maternal Grandmother Arthritis Maternal Grandmother other (dementia) Maternal Grandmother Stroke Maternal Grandfather ADD/ADHD Daughter other (Eosinophilic esophagitis) Son other (Abdominal migraines) Son Patient Allergies ALLERGIES Allergen Reactions Aleve [Naproxen Sod* Vomiting Ibuprofen without problems Vomiting with Aleve with one time use Compazine [Prochlor* Mental Status Change Menthol Rash Metformin GI Upset Morphine (Pf) Other: See Comments Respiratory depression Penicillins Swelling Adhesive Rash Current Medications Current Outpatient Medications on File Prior to Visit Medication Sig lisdexamfetamine (VYVANSE) 20 mg capsule Take 1 capsule by mouth once daily for 30 days. In the morning diclofenac (VOLTAREN ARTHRITIS PAIN) 1 % topical gel Apply 2 g to affected area three times a day as needed. triamcinolone acetonide (KENALOG) 0.5 % cream Apply 1 application to affected area daily at bedtime. On left lower leg skin lesion at ankle. Apply sparingly. Avoid face/skin fold. cyanocobalamin 1,000 mcg/mL Inject 1 mL intramuscularly one time a week for 30 days, THEN 1 mL every 2 weeks for 60 days, THEN 1 mL once every month. Syringe with Needle, Safety (SAFETY-NAVDEEP 10CC SYR 21GX1.5) 10 mL 21 gauge x 1 1/2 syrg 1 Syringe as directed. vitamin b complex (B COMPLETE) tab Take 1 tablet by mouth once daily. levothyroxine (SYNTHROID) 88 mcg tablet Take 1 tablet by mouth daily before breakfast. and skip 1 day weekly. tiZANidine (ZANAFLEX) 4 mg tablet Take 1 tablet by mouth every 8 hours as needed (muscle spasms). Cholecalciferol, Vitamin D3, 125 mcg (5,000 unit) cap Take 1 capsule by mouth once daily. (Patient taking differently: Take 5,000 Units by mouth every morning.) ondansetron orally disintegrating (ZOFRAN ODT) 4 mg disintegrating tablet Take 1 tablet by mouth every 6 hours as needed for Nausea/Vomiting. No current facility-administered medications on file prior to visit. Social History Social History Tobacco Use Smoking status: Never Smokeless tobacco: Never Vaping Use Vaping Use: Never used Substance Use Topics Alcohol use: Yes Comment: twice a year-socially Drug use: No Review of Symptoms REVIEW OF SYSTEMS See HPI, otherwise negative EXAM: BP 122/78 (BP Site: Left Arm, BP Position: Sitting, BP Cuff Size: Large Adult) Pulse 86 Resp 16 Wt 88.8 kg (195 lb 12.8 oz) LMP 05/30/2019 (Exact Date) BMI 38.24 kg/m General Appearance: Well appearing, alert, in no acute distress, well-hydrated, well nourished.. Lungs: Lungs clear to auscultation. No wheezing, rhonchi, rales.. Heart: RRR without murmur, gallop, or rubs. No ectopy. Psychiatric: pleasant, cooperative, tearful, no SI/HI. Health Maintenance List Depression Screening Never done Hepatitis C Screening Never done HIV Screening Never done Hepatitis B Vaccine(1 of 3 - 19+ 3-dose series) Never done DTaP,Tdap,Td Vaccine(1 - Tdap) due on 07/21/2017 Mammogram Screening due on 06/11/2022 Covid-19 Vaccine( - 2022- season) due on 07/05/2024 Influenza Vaccine(1) due on 12/27/2023 Annual PCP Team Chronic Disease Visit due on 09/28/2024 Cervical Cancer Screening due on 06/25/2025 HPV Vaccine Aged Out Data reviewed Previous records, office notes, [place]AR[place] report PDMP website checked and validated. All prescriptions have been APPROPRIATELY filled. No suspiciousactivity was identified. 12/01/2023 by Dee Flores CNP. ASSESSMENT/PLAN: 1. Impaired concentration - ICD9: 799.51, ICD10: R41.840 (primary diagnosis) - LORAZEPAM 1 MG TABLET 2. Anxiety disorder, unspecified type - ICD9: 300.00, ICD10: F41.9 - BUSPIRONE 10 MG TABLET - LORAZEPAM 1 MG TABLET 3. PRASHANTH (generalized anxiety disorder) - ICD9: 300.02, ICD10: F41.1 - BUSPIRONE 10 MG TABLET - LORAZEPAM 1 MG TABLET 4. Arthralgia, unspecified joint - ICD9: 719.40, ICD10: M25.50 - NALTREXONE 0.5 MG CAPSULE 5. Myalgia - ICD9: 729.1, ICD10: M79.10 - NALTREXONE 0.5 MG CAPSULE 6. Situational anxiety - ICD9: 300.09, ICD10: F41.8 - LORAZEPAM 1 MG TABLET Dee Flores APRN.PRINTING EQUIPMENT MECHANIC APPRENTICE documented in this encounterC[facility]07-30-2024 Telephone encounter Note * Telephone Encounter - Zenaida Cheney MA - 11/24/2023 9:52 AM EDT Notified of below via CITTIOt. Zenaida Cheney MA [facility]-30-[facility] Miscellaneous Notes* Telephone Encounter - Zenaida Cheney MA - 11/24/2023 9:52 AM EDT Notified of below via [email or web address]. Zenaida Cheney MA * Telephone Encounter - Jose Luis Toledo DO - 11/23/2023 5:05 PM EDT would recommend appt for this to be discussed or considered Jose Luis Toledo DO * Telephone Encounter - Giana Alicea MA - 11/17/2023 7:35 AM EDT Images from the original note were not included. Please see provider message -- Sammy Nickerson [facility] My Chart Rx Pool (supporting Jose Luis Toledo DO)12 hours ago (6:36 PM) CW I seen the philosophy instructor and you said to message you after to get the prescription for the low dose naltrexone. So I'm just checking in to see about getting it. When I came in with Sarah for her apptwith mark she said to message her and she would check with you. So I did message her but now I'm checking in with you also. Thanks! documented in this encounterC[facility]07-29-2024 Telephone encounter Note * Telephone Encounter - Jose Luis Toledo DO - 11/23/2023 5:05 PM EDT would recommend appt for this to be discussed or considered Jose Luis Toledo DO [facility]07-[facility] Telephone encounter Note* Telephone Encounter - Dee Flores APRN.CNP - 11/19/2023 2:40 PM EDT See separate encounter from 11/16. Closing this encounter. Dee Flores APRN.JOI [facility]07-25-2024 Miscellaneous Notes* Telephone Encounter - Dee Flores APRN.CNP - 11/19/2023 2:40 PM EDT See separate encounter from 11/16. Closing this encounter. Dee Flores APRN.CNP * Telephone Encounter - Zenaida Cheney MA - 11/12/2023 11:48 AM EDT Pt sends message below, advised to turn into phone encounter for PCP to review per Ryne Quinteros. The last time I was in to see Tre she said to message her after my philosophy instructor appt to start the low dose naltrexone. I had my appt. So I'm messaging you to get the prescription. Thank you! documented in this encounterC[facility]07-23-2024 Telephone encounter Note * Telephone Encounter - Dee Flores APRN.CNP - 11/17/2023 3:13 PM EDT The following approved medication requests have been transmitted electronically. Requested Prescriptions Signed Prescriptions Disp Refills lisdexamfetamine (VYVANSE) 20 mg capsule 30 capsule 0 Sig: Take 1 capsule by mouth once daily for 30 days. In the morning Authorizing Provider: DEE FLORES APRN.CNP PDMP website checked and validated. All prescriptions have been APPROPRIATELY filled. No suspiciousactivity was identified. 11/17/2023 by Dee Flores CNP. [facility] Miscellaneous Notes* Telephone Encounter - Dee Flores APRN.CNP - 11/17/2023 3:13 PM EDT The following approved medication requests have been transmitted electronically. Requested Prescriptions Signed Prescriptions Disp Refills lisdexamfetamine (VYVANSE) 20 mg capsule 30 capsule 0 Sig: Take 1 capsule by mouth once daily for 30 days. In the morning Authorizing Provider: DEE FLORES APRN.CNP [facility] website checked and validated. All prescriptions have been APPROPRIATELY filled. No suspiciousactivity was identified. 11/17/2023 by Dee Flores CNP. * Telephone Encounter - Bertha Rivera LPN - 11/16/2023 1:58 PM EDT Patient has been identified by name and date of : Patient phones for refill(s): Requested Prescriptions Pending Prescriptions Disp Refills lisdexamfetamine (VYVANSE) 20 mg capsule 30 capsule 0 Sig: Take 1 capsule by mouth once daily for 30 days. In the morning Date of last office visit in primary care: 09/29/2023 Date of next office visit in primary care: 01/04/2024 Please advise. Thank you. Bertha Rivera LPN. documented in this encounterC[facility]07-23-2024 Telephone encounter Note * Telephone Encounter - Giana Alicea MA - 11/17/2023 7:35 AM EDT Images from the original note were not included. Please see provider message -- Sammy Navas [facility] My Chart Rx Pool (supporting Jose Luis Toledo DO)12 hours ago (6:36 PM) CW I seen the philosophy instructor and you said to message you after to get the prescription for the low dose naltrexone. So I'm just checking in to see about getting it. When I came in with Sarah for her apptwith mark she said to message her and she would check with you. So I did message her but now I'm checking in with you also. Thanks! [facility] Telephone encounter Note* Telephone Encounter - Giana Alicea MA - 11/17/2023 7:34 AM EDT Turned into TE Giana Alicea MA [facility]07-23-[facility] Miscellaneous Notes* Telephone Encounter - Giana Alicea MA - 11/17/2023 7:34 AM EDT Turned into TE Giana Alicea MA documented in this encounterC[facility]07-22-2024 Telephone encounter Note * Telephone Encounter - Bertha Rivera LPN - 11/16/2023 1:58 PM EDT Patient has been identified by name and date of : Patient phones for refill(s): Requested Prescriptions Pending Prescriptions Disp Refills lisdexamfetamine (VYVANSE) 20 mg capsule 30 capsule 0 Sig: Take 1 capsule by mouth once daily for 30 days. In the morning Date of last office visit in primary care: 09/29/2023 Date of next office visit in primary care: 01/04/2024 Please advise. Thank you. Bertha Rivera LPN. [facility]07-19-[facility] Telephone encounter Note* Telephone Encounter - Juanita Garrido - 11/13/2023 9:12 AM EDT Called patient on November 13, 2023 at 9:12 AM to schedule their MSK US exam. No answer, left VM, 3rd attempt. [facility] Miscellaneous Notes* Telephone Encounter - Juanita Garrido - 11/13/2023 9:12 AM EDT Called patient on November 13, 2023 at 9:12 AM to schedule their MSK US exam. No answer, left VM, 3rd attempt. * Telephone Encounter - Juanita Garrido - 11/12/2023 9:44 AM EDT Called patient on November 12, 2023 at 9:44 AM to schedule their MSK US exam. No answer, left VM, 2nd attempt. * Telephone Encounter - Juanita Garrido - 11/11/2023 1:47 PM EDT Called patient on November 11, 2023 at 1:47 PM to schedule their MSK US exam. No answer, left VM, 1st attempt. * Telephone Encounter - Xochitl Garcia PCNA - 11/11/2023 12:48 PM EDT Visit Type: MSK SYN Visit Length: 45, 50 OR 60 MINUTES Order Name/Protocol: US HAND/WRIST SYNOVIAL SCREEN RT+LT Preferred Provider: N/A Comment: N/A Location: ANY FACILITY Slot held: N/A documented in this encounterC[facility]07-18-2024 Telephone encounter Note * Telephone Encounter - Zenaida Cheney MA - 11/12/2023 11:48 AM EDT Pt sends message below, advised to turn into phone encounter for PCP to review per Ryne Quinteros. The last time I was in to see Tre she said to message her after my philosophy instructor appt to start the low dose naltrexone. I had my appt. So I'm messaging you to get the prescription. Thank you! [facility] Telephone encounter Note* Telephone Encounter - Zenaida Cheney MA - 11/12/2023 11:47 AM EDT See TE 11/12/23 Zenaida Cheney MA [facility]07-[facility] Miscellaneous Notes* Telephone Encounter - Zenaida Cheney MA - 11/12/2023 11:47 AM EDT See TE 11/12/23 Zenaida Cheney MA * Telephone Encounter - 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 APRN.CNP - 11/12/2023 11:43 AM EDT Please turn this into telephone encounter so Dr. Toledo sees this. I am not sure on dosage or howshe would like to prescribe this. Thank you, 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 APRN.JOI * Telephone Encounter - Giana Alicea MA - 11/11/2023 5:36 PM EDT Please see message Giana Alicea MA documented in this encounterC[facility]07-18-2024 Telephone encounter Note * Telephone Encounter - 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 APRN.CNP - 11/12/2023 11:43 AM EDT Please turn this into telephone encounter so Dr. Toledo sees this. I am not sure on dosage or howshe would like to prescribe this. Thank you, 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 APRN.PRINTING EQUIPMENT MECHANIC APPRENTICE [facility] Work Phone: 1([phone]) 867-310507-18-2024 Telephone encounter Note* Telephone Encounter - Juanita Garrido - 11/12/2023 9:44 AM EDT Called patient on November 12, 2023 at 9:44 AM to schedule their MSK US exam. No answer, left VM, 2nd attempt. [facility] Telephone encounter Note* Telephone Encounter - Giana Alicea MA - 11/11/2023 5:36 PM EDT Please see message Giana Alicea MA [facility]07-[facility] Telephone encounter Note* Telephone Encounter - Juanita Garrido - 11/11/2023 1:47 PM EDT Called patient on November 11, 2023 at 1:47 PM to schedule their MSK US exam. No answer, left VM, 1st attempt. [facility]07-17-2024 Telephone encounter Note* Telephone Encounter - Xochitl Garcia PCNA - 11/11/2023 12:48 PM EDT Visit Type: MSK SYN Visit Length: 45, 50 OR 60 MINUTES Order Name/Protocol: US HAND/WRIST SYNOVIAL SCREEN RT+LT Preferred Provider: N/A Comment: N/A Location: ANY FACILITY Slot held: N/A [facility]07-17-2024 Telephone encounter Note* Telephone Encounter - Chen Atkins - 11/11/2023 12:46 PM EDT US HAND/WRIST SYNOVIAL SCREEN LEFT (Order #[id number]) on 11/11/23 US HAND/WRIST SYNOVIAL SCREEN RIGHT (Order #[id number]) on 11/11/23 [facility]07-17-2024 Miscellaneous Notes* Telephone Encounter - Chen Atkins - 11/11/2023 12:46 PM EDT US HAND/WRIST SYNOVIAL SCREEN LEFT (Order #[id number]) on 11/11/23 US HAND/WRIST SYNOVIAL SCREEN RIGHT (Order #[id number]) on 11/11/23 [facility] Instructions* Patient Instructions* Naveen Mora MD - 11/11/2023 12:28 PM EDT Please let Dr. Toledo know if you need a referral to PT for joint protection strategies for hypermobility ___ Joint Protection Program for the Upper Limb Author Gregorio Brown MD Section Infection Control Specialist Efrain Beal MD [facility]land Infection Control Specialist Mikhail Morales MD All topics are updated as new evidence becomes available and our peer review process is complete. Literature review current through: Jan 2013. This topic last updated: Jul 22, 2011. INTRODUCTION -- Joint protection should be introduced to every patient with a chronic rheumatologicdisorder in order to prevent recurrent sprains and strains which can add to inflammation and degeneration [1]. Conservative care includes preventive care, and joint protection is a fundamental way toprovide preventive joint care. PRINCIPLES OF JOINT PROTECTION -- The following general principles apply to all joints: Respect pain (which signals the patient to moderate or avoid activity) Balance work and rest Maintain strength and range of motion Reduce musculoskeletal effort Simplify work Avoid positions which induce deformity Use stronger, larger joints whenever possible Avoid staying in one position for too long These principles are derived from the simple, practical application of proper body mechanics, posture, and positioning of joints. Joint protection reduces local joint stress and preserves joint integrity. Aggravating factors -- Aggravating factors are those habits and activities that can initiate and/orperpetuate soft tissue rheumatic pain and disability. Whenever pain persists beyond the expected duration for a given problem such as bursitis or tendinitis, the clinician should consider a perpetuating aggravating factor as detailed below. Delving into the patient's routine at work, at home, and in sports is the starting point. Questions you might ask in relation to localized pain Shoulder region Have you engaged in a new sport or exercise? Have you pulled, reached, or carried a heavier object than usual? Have you had recent leg problems forcing you to use your arms more? Do you sleep with arms raised above your head? Do you do pushups? Elbow region Have you done any prolonged repetitive activity? Have you driven a long way with elbow on armrest of car door? Have you been pushing up from bed with your elbow? Are you under stress: are you clenching your skin care therapist unnecessarily firmly? Hand and wrist Have you done any prolonged repetitive activity? Has your job changed? Have you engaged in a new hobby, sport, or exercise? Are you under stress; are you clenching your skin care therapist unnecessarily firmly? Personality assessment may also be important. The patient who is a compulsive worker with the attitude, I'm going to finish this job if it kills me, must learn to respect the pain signals, recognize potentially self-destructive behavior, and let reason prevail. Telling a patient not to do a task may not be as helpful as guiding the patient to perform the task in a manner that puts less stress on joints. Systemic inflammatory disorders -- Special considerations are required for persons with systemic inflammatory disorders involving the upper limb. As examples: Small finger joint inflammation may be more amenable to ice rather than heat. Squeezing actions should be avoided as they tend to further injure soft tissue as well as increase ulnar deviation. Many simple devices, such as jar openers, car door openers and weinstein holders, are available to help limit these actions. Such patients generally benefit from evaluation by and instructions from a physical and/or occupational therapist. Energy conservation and joint protection can reduce pain and inflammation. As examples: Seven hours of Joint Protection education in early RA (?12 months) provided improvement in self management but did not influence health status. Five years later functional status had declined little [2]. Patients with longer disease duration (17-22 months) reported improvement in both inflammation and function. This included improvement in hand pain, general pain, morning stiffness, self-reported number of disease flare-ups, visits to the doctor for arthritis, and in activities of daily living [3]. GUIDELINES FOR UPPER LIMB PROTECTION -- The following guidelines may be used to protect the upper limb from injury. Shoulder Prevent cumulative movement disorders by frequently interrupting repetitive tasks such as washing windows, vacuuming, and working on an assembly line. Take a mini break and change position every 20 to 40 minutes. Keep the elbow close to the body. Change the angle of shoulder motion when possible. Sleep with the arms below the level of the chest. If using crutches, adjust them properly to about 5 cm below the axillae. Carry weight on the ribs and hands, not under the arms. A forearm cane may be preferred. Rise from a chair by pushing off with thigh muscles, not the hands. Take frequent breaks when working with the arms overhead. To grasp an object at your side or that is behind you, turn your body and face the object. Use the far arm and hand across the front of the body to reach a car seat belt. A swivel or wheeled chair may be useful when tasks done from a seated position are in various locations. Keep the hands below the 3 o'clock and 9 o'clock positions on the wheel when driving. If possible, use a steering wheel that tilts. Strengthen and maintain shoulder muscles with proper exercises if swimming. Learn the proper serving and stroke technique for playing tennis. Avoid tendinitis and impingement.Respect pain, avoid overuse, use frequent rest breaks. Relax your skin care therapist between strokes. Maintain shoulder strength through exercise; be aware of proper posture and positioning of joints. (See Epicond ylitis (tennis and golf elbow).) Avoid falling onto an outstretched arm if cycling. Learn to fall by pulling your arm in and rollingonto your shoulder. Perform conditioning exercises year-round to avoid golf shoulder injuries. Learn proper swing and impact. Elbow and forearm Avoid pressure and impact to the elbow. Do not contact any firm surface with the elbow when sitting. Use the abdominal muscles to help roll over when getting out of bed. Do not push off with the elbow against a hard surface when changing body position. Use relaxation techniques focused on the hands and arms to protect the forearm muscles. Recognize and avoid repetitive hand clenching or excessively hard gripping. Wear stretch gloves with the seams to the outside for nocturnal hand clenching. Avoid forced gripping or twisting. Use kitchen aids such as jar openers, enlarged ore feeder on utensils, or power tools. Take periodic breaks and alternate tasks during manual activities. Use a light and two handed skin care therapist when shaking hands repeatedly. Avoid prolonged use of tools requiring twist/force motions. Hold tools with a relaxed skin care therapist. Use foam or plastic pipe insulation (sold at [employer]) on tool handles. Take frequent short breaks. Do not lean directly on elbows; stabilize with the forearms. Change to a better work position or use elbow pads for protection. Use proper skin care therapist and play techniques with golf clubs, racquets, bats, or other pieces of sports equipment. Consult a pro for skin care therapist problems. Use elbow protective equipment when playing hockey, roller-blading, or skating. Use stretch, strengthening, and relaxation exercises to condition the tissues that surround the elbow. Hand and wrist Avoid cumulative movement patterns. Interrupt repetitive tasks (eg, typing, peeling vegetables, knitting, playing cards) by short breaks. Rest the hands flat and open rather than tight fisted. Pad the handles on utensils, tools, and the steering wheel with pipe insulation. Use the stronger larger joints, especially the shoulders. Use the palms and forearms to carry heavy objects. Push, slide, or roll objects instead of lifting them. Use pencil ore feeder and pad the stapler. Keep the hands off chairs when arising. Be aware of hand clenching and wear stretch gloves to bed when nocturnal hand clenching is recognized. Interrupt lengthy writing sessions by stopping for 1 to 2 minutes every 10 minutes. Use a relaxed skin care therapist on tools. Enlarge the handles of work tools; a 0.9 cm (2.25 in) diameter is optimum for most people. Texturize handle surfaces to provide an easy hold with less skin care therapist. Bend and straighten (wiggle) your fingers and wrist often. Wear stretch gloves while driving and at night if hand clenching is a habit. Grasp objects with the hand and all fingers. Use both hands as much as possible when lifting heavy objects. Use real tools, not the thumbs, to pinch and push in your daily job activities. Use pliers for hardto remove velcro fasteners. Power tools (eg, screwdriver, drill) are often preferable and easier to use than manual tools. Avoid uncomfortable hand positions. Keep the hand and wrist extended for work activities. Adapt tools with handles designed so that thewrist is straight. Use a wrist rest while working on a keyboard. Use an appropriate tool to hit or move objects. Fit the handles of vibrating tools with shock absorbers or rubber, or wear gloves with gel inserts.Avoid strong vibrations (greater than 12 meters per second squared) and vibrations lasting longer than one hour. Wear an appropriate splint for rest and activity if joints are painful (picture 1). Consult an occupational therapist about work-induced problems, splinting, and modifying or adaptingtools and equipment. Use proper skin care therapist size for racquet sports or golf. Golfers with arthritis should try using cushion ore feeder and the baseball skin care therapist style (no interlocking fingers). Relax the skin care therapist until just before ball impact. Consult a pro for skin care therapist problems. Use a bowling ball with five finger holes. Bevel edges of the finger holes. A combination of joint protection education and hand exercises that can be performed at home may beof benefit to those with osteoarthritis of this hand. This was illustrated in a study that randomlyassigned patients to this type of intervention or to education alone [4]. A significantly larger proportion of those who received the combination intervention reported improve hand function and had asignificantly greater mean increases in skin care therapist strength. Joint protection advice also appears to be valuable for patients who are considering hand surgery because of osteoarthritis of the thumb carpal- metacarpal (CMC) joint. As an example, in a prospectivestudy, 33 patients scheduled for first CMC surgery were given joint protection advice and randomly assigned to receive one of two types of splints. After seven months of observation, the majority of patients had improved enough that surgery was no longer needed. In follow up at seven years, two of the remaining 19 patients wanted surgery [5]. In my experience, not only do patients improve to the point that surgery is unnecessary, some considered too disabled to continue working, are able to return to work in the same job following referral to an occupational therapist. Systemic inflammatory disorders -- Special considerations are required for persons with systemic inflammatory disorders involving the upper limb. As examples: Small finger joint inflammation may be more amenable to ice rather than heat. Squeezing actions should be avoided as they tend to further injure soft tissue as well as increase ulnar deviation. Many simple devices, such as jar openers, car door openers and weinstein holders, are available to help limit these actions. Such patients generally benefit from evaluation by and instructions from a physical and/or occupational therapist. RESOURCES For patients www.[facility].ca/[facility]/programs/arthritic/general/tips.htm [facility] www.arthritis.org Has many free booklets that provide useful information for patients www.[employer] Provides general information including: Ask the Expert, Medical Library, Message Boards & More http://www.rheumatology.org/practice/clinical/patients/index.asp Written by rheumatologists http://orthopedics.about.com/ Written by orthopaedists www.ccmas.ca [employer] www.[employer].Goji/rsi.html A commercial website with helpful information: hand and wrist problems arising from use of computers and other office devices www.rsi.[place].[employer].edu A website for repetitive strain injuries; maintained by [employer] students, very helpful (with illustrations) www.[employer] A catalog of energy saving devices www.[employer] Joint Protection Program for the Lower Limb Authors ANJEL Rivers MD Section Infection Control Specialist Gregorio Whitman MD Bland Infection Control Specialist Mikhail Morales MD All topics are updated as new evidence becomes available and our peer review process is complete. Literature review current through: Jan 2013. This topic last updated: Jul 22, 2011. INTRODUCTION -- Every patient with a chronic joint disorder should be educated regarding the principles of joint protection, as excess stress and strain on arthritic joints can add to inflammation and degeneration [1]. The goal of lower extremity joint protection is to avoid overloading vulnerable joints/tissues, to prevent recurrent sprains and strains, to reduce pain and inflammation, and, thus, to preserve joint integrity. Joint protection is best achieved through patient education, behavior modification, energy conservation, and, in selected cases, use of orthotic devices, splints, adaptive devices, and, in the case of the lower extremities, proper footwear. Conservative care includes preventive care, and joint prote ction is a fundamental way to provide preventive joint care. Joint protection for the lower extremities will be reviewed here. An overview of joint protection and joint protection for the upper extremities and neck are discussed elsewhere. (See Overview of joint protection and Joint protection program for the upper limb and Joint protection program for the neck.) PRINCIPLES OF JOINT PROTECTION -- The principles of joint protection are derived from the simple, practical application of proper body mechanics, posture, and positioning of joints. Joint protection reduces local joint stress and preserves joint integrity. Guiding the patient to perform a task in amanner that puts less stress on joints is generally preferred to prohibiting the task [2,3]. The principles of joint protection include: Respect pain Reduce excess body weight Demonstrate proper posture and body mechanics Use minimum force for energy conservation and injury prevention Participate in regular exercise, as tolerated, to maintain function, range of motion, strength, andbalance These principals and their application are discussed in detail in the sections below. Respect pain It is important for patients with any arthritic condition to understand that pain is usually an indicator that a particular activity is placing an excessive load on the joint; pain may thus be interpreted as a signal for the patient to modify or avoid the activity. Patients should warm up before doing exercises or vigorous activity. A warm up should consist of 5 to 10 minutes of gentle joint range of motion exercises or any gentle activity that increases the heart rate. We advise that patients should choose footwear with comfort, support, and utility in mind and that patients should not wear shoes that cause pain or fatigue. Individualized assessment is an importantcomponent of a joint protection intervention. The history of past shoe wear may be important for women with current foot pain. Women who wore good shoes, compared with women who wore average shoes, in the past were 67 percent less likely to report hindfoot pain [4]. This study, using data from the [place] ([place]) study, defined good shoes as low-risk shoes, including athletic and casual sneakers with rigid heel counters, fixation, or firm, non-flexible soles. Average shoes included those with hard or rubber soles, special shoes, and work boots. Poor shoes included those that lack support and sound structure, including high-heeled shoes, sandals, and slippers. A systematic review found evidence that special shoes and orthoses may benefit patients with rheumatoid arthritis (RA) [5]. However, patient dissatisfaction with footwear often resulted in decreased usage, while participation in the design stage of specialized footwear improved usage, decreased pain, and improved foot health [6]. The following issues should be noted: Patient acceptance of footwear is needed for clinical benefit [6]. Appropriate shoes should provide support and comfort for the weight-bearing foot, with room for thetoes to extend fully and to broaden out during weight- bearing. A certified floor covering installer can constructcustom shoes, with a doctor s prescription, for patients with structural foot deformities. In addition, orthotics may be obtained from a [facility] with the advice and assistance of a treating physical therapist or transitional care manager. If a patient has a structural deformity that may require custom made orthotics, then it is advised that the patient pursue a podiatry consultation. Proper fit should be determined by having the foot size measured while standing. Attention should be given to wearing shoes with an appropriate heel height (usually a one-inch heel). They should fit the description of a good shoe, as specified above, and should be checked oftenfor signs of wear. Cushion soles with shock absorbing material should be used if walking or working on concrete. Running shoes, walking shoes, or aerobics shoes are more supportive and comfortable to the flexibleor arthritic foot. Good running shoes and arch supports are important. A metatarsal pad or bar can be used to relieve pressure or pain at the forefoot. A certified low vision therapist can make a custom fit orthotic with a metatarsal pad. A metatarsal pad helps unload the metatarsal heads, which can decrease pain at the forefoot. Metatarsal pads can be purchased over the counteror online; however, patients with special foot care needs or foot deformities may need to have a cus ludwig fit metatarsal pad made by an auctioneer art. Footwear that is especially designed for a particular sport should be used for participation in that activity. In patients who do not respond with a reduction in pain to the more simple measures described above, we recommend evaluation by a transitional care manager. Orthoses can provide needed support and positioning assistance. We suggest consultation with an experienced professional regarding the choice of an orthosis, whether having it custom made or obtaining it [id number]. For patients with structural foot deformities, custom orthoses can be fit andmade by a certified low vision therapist, physical therapist, transitional care manager, or a certified floor covering installer, with the appropriate prescription from a transitional care manager (or physical therapist). Orthoses should then be used in both sports shoes and everyday shoes. There is no consensus on the choice of foot orthoses used for managing pathology in the rheumatoid foot, although there is strong evidence that foot orthoses do reduce pain and improve functional ability. The type of foot orthoses used range from simple cushioned insoles to custom-made rigid cast devices [7]. A 2008 systematic review [8] found that, for people diagnosed with rheumatoid arthritis, custom-made foot orthoses, which can be made by a certified low vision therapist, floor covering installer, or physical therapist with a prescription or by a transitional care manager, are: More effective than no intervention for reducing rear foot pain up to 30 months Not more effective than a standard intervention of supportive shoes or non- custom foot orthoses forreducing metatarsophalangeal (MTP) joint pain or for improving function after six weeks or three months Individuals with joint hypermobility/laxity should be particularly careful to protect the ankles and feet. Sprains and strains can increase joint instability. If synovitis or synovial effusion is present, joint aspiration and injection, where indicated clinically, can result in a more rapid response to physical therapy and joint protection principles. The weight-bearing load should be distributed over stronger joints and/or larger surface areas. Patients should avoid overloading the joints and should instead use the muscles that surround the joint. For example, the thigh muscles can be used to rise from a chair. Patients should avoid maintaining the same joint position for prolonged periods. Straightening the knees or standing up at least every 30 minutes during prolonged periods of sitting relieves pressureand stretches tight muscles. Reduce excess body weight -- We advise that patients maintain an appropriate weight to reduce stress on the knees, feet, and ankles. Increased body mass index is associated with onset and progressionof osteoarthritis of the knee (but not the hip) [9]. In addition, the combination of modest weight loss plus moderate exercise provides improvements in overall pain and performance measures of mobility in older overweight obese adults with knee OA compared with either intervention alone [10]. (See Risk factors for and possible causes of osteoarthritis, section on 'Obesity' and Overview of therapy for obesity in adults.) Posture and body mechanics -- We advise that patients use good posture and proper body mechanics. The following points should be reviewed with patients, depending upon their individual activities or symptoms: Hip and buttock region pain may result from bending at the waist while the knees are locked straight. Persons with joint laxity are more likely to bend improperly (picture 1). When lifting heavy loads, it is better to bend at the knee and not at the waist and to avoid allowing both knees to pass over the toes. Lifting should be done with thigh muscles, straightening the knees first then the back (picture 2). If the patient's job or task requires prolonged standing at one site, placing a 12-inch long 2X4 inch board on the floor, then placing one foot on and off of it at intervals, alternating feet, can reduce lower limb fatigue (picture 3). Twisting should be avoided while carrying a heavy load, which should be held close to the body. It is better to move the body as a unit when carrying a heavy load to avoid excessive stress and strainon the low back, hips, knees, and ankles (picture 4 and picture 5). When lifting heavy objects, the load should be kept centered in front of the body. Carrying heavy items in one hand at the side of the body should be avoided (picture 6). Knee pain can be caused by foot disorders; the entire lower leg should be evaluated when investigating this complaint. Patients should modify or avoid knee twisting dance steps or exercises. Patients should try to sit with lumbar support and with feet in contact with the ground. Sitting with a leg folded under or in a crossed-legged position should be avoided (picture 7). The knee should not pass over the toes when squatting. This helps prevent placing excessive stress on the knee joint (picture 8). It is preferable to avoid loading the knee joint at angles greater than 45 degrees [11]. For example, deep knee squats and squatting for prolonged periods of time should be avoided. Ergonomic assessments/interventions are very useful in preventing work-related injuries and play animportant role in joint protection. Results from a chief pilot study on an ergonomic assessment tool for arthritis (EATA) indicate that it is a feasible and a comprehensive process for identifying ergonomic job accommodations for patients with inflammatory arthritis [12]. Minimum force -- Patients should be advised to use the minimum amount of force necessary to complete the job. This not only protects the joints but also plays a role in energy conservation. Proper footwear helps minimize force. (See 'Respect pain' above.) Knee joint protection: Knee joint loading is an important factor in the progression of osteoarthritis (OA). Excessive medial joint loading of the knee occurs with a high adduction moment, which increases as the knee becomes more varus. Patients with a varus alignment demonstrate a higher incidence of medial compartment OA. Therefore, varus alignment is widely accepted as an indicator of the extent of medial compartment loading. A 1 percent increase in adduction moment increases the risk of OA progression by 6.46 times and is a useful research measure for evaluating treatment strategies designed to slow disease [13]. Valgus knee bracing: One conservative non-surgical intervention, which can reduce the adduction moment at the knee for patients with medial compartment OA, is the use of a valgus knee brace [14]. Adjustable valgus bracing is effective in reducing medial compartment load and improved pain in a groupof patients with knee OA [14]. A gait analysis study with 40 subjects with medial knee OA found that wearing shoes increases medial knee joint load, compared with walking barefoot, and that the use of a cane significantly reduces medial knee loading [15]. Off the shelf shoes predisposed knee osteoarthritis patients to excessive joint loading, and use of a cane had a protective effect on disease progression. Footwear for knee protection: Off the shelf and footwear recommendations for patients with medial compartment OA based upon current research include [16]: Avoid shoes with medial arch supports. Wear shoes with heels 1.5 inches or less. Choose shoes with flexible soles in preference to supportive shoes promoting stability. The mobility shoe, designed to simulate natural foot motion during barefoot walking, decreased joint loading compared with off the shelf footwear [17]. To date, there is little research on the benefits of shock-absorbing insoles and textured insoles, though there is anecdotal evidence of benefit [16]. The use of the lateral wedge for symptomatic benefit is widely recommended in guidelines for the treatment of knee OA. Current research supports the following recommendations for the lateral wedge for people with medial knee osteoarthritis [16]: Wedge the full length of the foot, not just the heel. Wedge angle around 5 degrees; greater than 10 degrees is associated with discomfort. Use off the shelf shoe recommendations above. Wedges should immediately reduce pain for longer clinical benefits to be achieved. Better outcomes are observed with less severe disease, with increased lower limb muscle mass, in younger individuals, and in those who are less obese [16]. There is preliminary evidence from small studies that flexible medial wedged insoles can be used for predominately lateral compartment OA. Further research is needed. Medial arch supports could be detrimental for individuals with medial compartment OA, so caution needs to be used in recommendations[16]. Recommendations to patients for knee protection include [1]: Use a dental mechanic's or milker's stool when working on the floor or on the ground. Sit with the legs apart and reach forward to perform tasks such as gardening or scrubbing floors. Use protective knee pads if you must work on hands and knees. In patients with chronic joint disorders or joint pain who are avid gardeners, raised bed or container-gardening are excellent options, as it is easy to garden on a stool, which reduces stress and effort on the body and joints. Avoid deep knee bending; use rice dryer mechanic tools for assistance. Simplify work by using efficiency principles: plan, organize, and balance work with rest. Run on dirt or track surfaces; avoid running on concrete or asphalt. Remain active to maintain/increase strength and range of motion. Regular exercise -- Regular exercise helps to maintain function, joint range of motion, strength, and balance. A 2009 systematic review of 121 randomized trials, which examined the benefits of progressive resistance strength training (PRT) for improving physical function in older adults, found that PRT, performed two to three times a week at high intensity, improved physical ability, strength, gait, and performance of functional tasks [18]. Participants with OA reported a reduction in pain in five studies. Still, caution should be taken in generalizing from these results to clinical practice, as adverseevents such as muscle pain and joint pain were poorly recorded in some of the studies. One essential component of preventative care for lower extremity joint protection is fall prevention. Evaluation of lower extremity strength and balance, typically as part of an interdisciplinary assessment, is an important component of effective fall prevention programs for older adults [19]. (See Falls in older persons: Risk factors and patient evaluation.) Population-based fall prevention programs have been shown to be effective and can form the [facility] [20]. A 2007 systematic review of the benefits of exercise for improving balance in older people, involving 34 studies, found that balance significantly improved with exercise interventions compared with usual activity. Multiple types of exercise, including gait, balance, coordination, functional exercises, and muscle strength, appeared to have the greatest impact on balance. There was a trend toward improvement in balance from riding a stationary bike. However, based on these studies, there is limited evidence that effects were long lasting [21]. A randomized trial involving 120 patients found benefit of increased self- efficacy in arthritis self-management education programs. Those in the treatment group had increased self efficacy for using cold and hot compresses, using two to three joint protection practices, and increased duration of light exercise. Increased perceived self-efficacy was associated with increased performance [22]. Exercise advice for lower limb joint protection includes: Strengthening the thigh muscles (quadriceps/hamstrings) to protect the knee. A home-based quadriceps exercise program improves symptomatic osteoarthritis of the knee to the same degree as NSAIDs [23]. Exercise Guidelines: A review written to guide health professionals in exercise prescription for people with arthritis provided the following recommendations to the patient regarding aerobic exercise[24]: Include an adequate warm-up and cool-down phase to minimize risk of injury Allow for variations in disease activity and joint status Be safe, comfortable, and easy to perform Be enjoyable and promote exercise confidence Place minimal stress (impact, torsional, shearing forces) on the affected joint(s) Allow for correct posture and joint alignment Appropriate aerobic exercise should not cause pain or increase local disease activity during performance or immediately afterward. Use splints and recommended joint protection measures as medically indicated Avoid unwanted or deforming joint positions Exercise should not increase or lead to muscle imbalances about a joint. Desired or recommended exercise intensity and duration should be permitted. Exercise should be readily available, convenient, and inexpensive. Exercise can promote socialization and peer support. Examples of the type of exercise recommended for people requiring lower limb joint protection can include the following [24]: Stationary biking: Stationary biking provides safe, low impact exercise (picture 9). The seat height should be adjusted so that the knees are slightly bent at the low point of the downstroke and are no more than 90 degrees flexed on the upstroke. Increase resistance gradually. In patients for whom an upright stationary bike is too difficult or uncomfortable, a recumbent bikecan be an effective alternative. Walking: Short brisk walks will increase leg circulation and exercise muscles Aquatic exercise: Water is an excellent medium in which to exercise for anyone with a rheumatologic disorder. It is sometimes the only environment that allows for pain-free movement [25]. A study in 2006 found that a six-week aquatic physical therapy program resulted in significantly less pain and improved physical function, strength, and quality of life for people with hip and knee arthritis [25]. The following is also advised: Perform a regular stretching program for the muscles of the upper and lower leg. Tight muscles can contribute to knee problems. Engage in exercise and sports activities on a regular basis rather than occasional weekend participation. Include warm-up and cool-down activities as well as appropriate stretching in your routine. Support for the benefits of exercise were shown in a trial to examine the effects of diet and exercise on pain and function in overweight patients with knee pain, in which 389 such patients, both menand women, were randomly assigned to a home-based program with one of four conditions: dietary intervention plus quadriceps strengthening, dietary intervention alone, quadriceps strengthening alone, and advice leaflet only [26]. At 24 months, those in exercise interventions had a significantly greater frequency of achieving a moderate reduction in knee pain and improved knee function compared with those in the other groups. While moderate sustained weight loss was achieved with dietary intervention and was associated with decreased depression, there was no apparent impact on pain or function. It is important to note that people having an active rheumatoid arthritis (RA) flare can engage in an exercise program, as tolerated. One study found that moderate- or high-intensity weight-bearing exercises are safe with respect to disease activity and radiologic damage of hands and feet; however,caution should be taken when prescribing long-term high-intensity weight-bearing exercises to patients who have significant radiologic damage to larger joints [27,28]. In addition, a short-term intensive exercise program in active RA patients was shown to be more effective in improving muscle strength than a conservative exercise program and did not have any negative effects on disease activity [29]. RESOURCES FOR TASK-RELATED PAIN (OCCUPATIONAL INJURIES) For patients: www.[employer].Goji Provides general information including: Ask the Expert, Medical Library, Message Boards & More [email or web address] p __ Hypermobility Spectrum Disorders (HSDs) are a heterogeneous (mixed) group of inherited connective tissue disorders, characterized by joint hypermobility (looseness of the joints), and skin differences. There may be additional symptoms besides joint findings associated with HSDs; these are discussedbelow. HSDs include: - Asymptomatic Joint Hypermobility, including Localized, Peripheral, and Generalized Joint Hypermobility - these diagnoses describe individuals with either localized or generalized joint hypermobility without additional symptoms - Hypermobility Spectrum Disorders, including Localized, Peripheral, Generalized, and Historical hypermobility spectrum disorder - these diagnoses describe individuals with joint hypermobility (further detailed as above) with some additional symptoms, but not meeting criteria for hypermobile EhlersDanlos syndrome - hypermobile Clovis Danlos syndrome (hEDS) - this diagnosis describes individuals meeting specificdiagnostic criteria. There is no genetic testing available for confirmation of the diagnosis of Hypermobility Spectrum disorder. The genetic cause(s) of this condition remain unknown. Therefore, diagnosis or exclusion ofdiagnosis is made entirely by clinical evaluation. Genetic testing is available for other forms of inherited connective tissue disorders, including forms of Clovis Danlos syndrome (not including hypermobile Clovis Danlos syndrome). Although HSDs may be similar in a family, significant variability within a family may also be seen.This may be due to changes in joint laxity or other symptoms with age, additional genetic variationwithin families, and lifestyle factors. An individual may be best described by different diagnoses within the HSDs at different times in their lives. In addition, women may express more symptoms thanmen, possibly due to the effects of estrogens on the body. Joint laxity is an important problem in HSDs. Due to the abnormal formation of collagen fibrils andother components of the connective tissue, hypermobile joints may allow bones to move against each other in a way that leads to joint subluxation or dislocation. Repeated joint injuries can lead to early osteoarthritis and pain. The stress on the joints can be worsened by excess weight. Unfortunately, there is no way to fix these joints, but instead, one must strengthen the muscle surrounding the joints for stabilization. People with HSDs should not engage in body movements that are otherwiseconsidered unusual or cause undue stress on the joints. They must also avoid high impact activitiesto prevent further damage to the joints. Physical Therapy is an extremely important aspect of treatment in HSDs. The reason for physical therapy is not delayed milestones or treatment for a specific injury but to increase muscle tone surrounding joints that have poor stability secondary to HSDs. It should be continued indefinitely as partof daily life. It is hoped that this will prevent arthritis. Exercises that do not put undue impacton the joints - swimming would be an excellent example - as well as other low impact sports are encouraged and exercise such as jumping, aerobics, acrobatics, gymnastics, point ballet, and participation in team sports such as volley ball, basketball and football are discouraged. Many physical therapists are able to help develop a full body plan of physical therapy for life-long strengthening of the muscles surrounding the joints. Orthopedics - orthotics (braces) are helpful by providing support for lax joints, such as an arch for feet, which will decrease discomfort. As connective tissue is found throughout the body, HSDs may affect multiple systems as follows: 1. Dermatologic: With regard to the skin, individuals with HSDs may have smooth velvety skin that bruises easily, without severe injury. These bruises are often in places less likely to be bruised ineveryday activities, such as the chest or back. Vitamin C supplementation can reduce bruising in some cases. The skin may be mildly hyperextensible and mildly atrophic scars may appear. Healing time may be longer in those with HSDs. Some patients require the use of mesh with major surgeries to prevent future herniation in the surgical incision site. Due to the difficulties healing, careful consideration should be made prior to any surgical intervention as to how to minimize post-surgical complications. It is important to inform your surgeon about the diagnosis of HSD. Some patients also develop pseudotumors at points of pressure, which are secondary to herniation of fat that becomes calcified over time. 2. Hernias and organ prolapse: Individuals with HSDs are at increased risk for hernias, including hiatal hernias and inguinal, femoral, and umbilical hernias. Pelvic floor weakness can lead to increased risk of uterine, bladder, or rectal prolapse. 3. Cardiovascular: While mild dilatation of the aorta has been reported in some children and adultswith HSDs, this has been shown to be unlikely to progress and does not typically require treatment.Recent studies have also shown that those with HSDs are not at increased risk for mitral valve prolapse.Therefore, baseline echocardiogram is no longer recommended for those with HSDs. Orthostatic intolerance (low blood pressure upon standing suddenly) and Postural Orthostatic Tachycardia syndrome (POTS) are common in HSDs. This is likely due to blood vessels that are not responding appropriatelyupon standing due to connective tissue differences. Tilt table testing may or may not establish a sp ecific diagnosis and does not exchange floor manager, and so may not be necessary. Many individuals withHSDs can manage these symptoms by staying well hydrated and/or increasing salt intake. If this is not sufficient, evaluation with Cardiology should be considered. 4. Gastrointestinal disorders: Constipation, irritable bowel syndrome, and other functional GI disorders may be present in individuals with HSDs. The bowel and abdominal wall may have low tone. If the constipation is chronic and severe, it may cause diverticula (pouches in the bowel wall). Infection can develop and cause pain (diverticulitis). A diet that is high in roughage, fresh fruits and vegetables is encouraged. [id number] treatments for constipation may be helpful if necessary. Gastroesophageal reflux disease (GERD) is also common and can be treated with [id number] medications as well. More difficult to manage symptoms may warrant evaluation with a GI specialist. 5. Endocrinologic: Low bone density is frequently seen in individuals with HSDs. It is not known ifthis is due to an abnormality in the collagen formation and interaction with bones, or due to the decreased level of activity that is sometimes seen in those with joint laxity and/or chronic pain. Women with HSDs should have a DEXA scan no later than the time of menopause. DXA may also be recommended for any individuals with HSDs and unusual number or type of fractures. Calcium and vitamin D supplementation are helpful in prevention of the progression of osteopenia. 6. Headaches: Headaches can occur in individuals with HSDs due to cervical instability, which can lead to neck muscle overuse, strain, and headaches in the back of the head. Physical therapy can helpstrengthen the neck muscles, reducing strain. Headaches can also occur in HSDs due to temporomandibular joint (TMJ) instability or dysfunction. 7. Dental - Some individuals with HSDs have a high-arched palate and/or dental crowding. They may require a palate cloth napping supervisor or tooth extraction to allow space for the remaining teeth. Dental enamel hypoplasia has also been reported. People with HSDs can also have temporomandibular joint instability(TMJ). This instability causes improper movement of the temporomandibular joint with pain and may cause headaches. These problems can be addressed by most dentists. Anecdotally, some with HSDs reportproblems with response to local anesthesia used for dental procedures. 8. Psychiatric: Patients with HSDs are at increased risk for depression secondary to having a chronic painful disease. Some people develop anxiety due to the fear of the multiple medical problems infringing on everyday life. These symptoms are often well treated with counseling, therapy, and/or psychiatric medications. Some patients have found Neurontin or low dose anti-depressant medications helpful for pain management as well as psychological relief. Sleep disturbances are also common. 10. Children may benefit from modifications in school. Teachers at school can be requested to provide a computer if a child tires from writing, in order to make studies easier. Children and adolescents should not carry very heavy cases on shoulders because this could lead to dislocation or subluxation of the shoulder joints. The Clovis Danlos syndrome Society is recommended as a good resource of information and support groups for those with all forms of Hypermobility Spectrum disorder. The web address is www.[employer].Goji. ___ Treatment Recommendations for Fibromyalgia developed by Dr. Isaiah Colon M.D. 1. Medications: We recommend first trying a tricyclic antidepressant such as cyclobenzaprine (Flexeril) or amitriptyline (Elavil) in patients who have not yet had an adequate trial of this class of medications. We prefer Flexeril. Although Flexeril is generally marketed as a muscle relaxant, the similarities in chemical structure to the tricyclic antidepressants make it a very useful medication to treat pain and it can also be helpful for treating sleep disturbance. Begin Flexeril at a dose of 5 mg 2-3 hours before bedtime. Taking the medication in this fashion can help decrease morning grogginess. Increase the dose by 5 mg every week as tolerated until a total dose of 20 mg is achieved. Increased fluid intake may decrease the incidence of dry mouth and constipation. Patients should also be warned about potential weight gain. Amitriptyline (Elavil) can be used similarly in doses starting at 10 mg before bedtime, increasing by 10 mg weekly as tolerated up to 50 mg. Nortriptyline is also a good choice for many people. If maximum tolerated doses of trycyclics are not providing adequate pain relief, we recommend addition (if Flexeril/Elavil is helping) or substitution of a dual reuptake inhibitor such as Cymbalta (duloxetine) or Savella (milnacipran). Such drugs may be the drug of first choice in fibromyalgia patients with prominent depression or fatigue, as they often work well for these co-morbid symptoms (in addition to treating pain). Begin Cymbalta at 30 mg once daily with food. The dose can eventually beincreased up to a total of 120 mg per day as tolerated, taken either as a single night time dose orb.i.d. Begin Savella at 25 mg, slowly increasing the dose as tolerated to a maximum of 100mg daily (e.g. 50 mg b.i.d.). Both drugs may initially cause nausea, palpitations, and other noradrenergic side effects, so patients should be instructed that this may happen. These side effects usually resolve over time. Another class of medication with proven efficacy in fibromyalgia are the [id number] ligands, Neurontin (gabapentin) and Lyrica (pregabalin). This class of drug might be the best first choice for afibromyalgia patient with prominent sleep problems. Lyrica is specifically approved for fibromyalgia, at doses of both 300 and 450mg. For Neurontin, doses typically in the range of 1500 - 3000 mg arenecessary to treat pain. Both drugs are better tolerated if most or even all of the dose is taken at bedtime (e.g. 150 mg in the morning and 300 mg at night for Lyrica, or 600 mg in the morning and 1200 mg at night for Neurontin). Some of the other medications that can be helpful in some fibromyalgia patients are higher doses ofolder SSRI s such as Prozac, Zoloft, or Paxil. Dosages higher than those typically used for treating depression (e.g. 40 - 50 mg of Prozac) are often necessary as it appears that at these higher dosages the important noradrenergic activity of these drugs becomes more prominent. Gamma hydroxybutyrate (particularly in those with significant sleep problems) and dopamine agonists (in those with co-morbid restless leg syndrome) can also be helpful in subsets of fibromyalgia patients. 2. Non-pharmacologic management: Activity/exercise. A weinstein aspect of fibromyalgia management is for the patient to appreciate that when their symptom(s) decrease in response to pharmacologic therapy, they must correspondingly increase their function. For example, when medication(s) diminishes pain, fatigue or other symptoms by 20%, this should lead to a 20% increase in activity/function. Such an increase in function and activity may result in a continuing reduction in complaints of pain, fatigue, etc. and may also diminish associated depressive and anxiety symptoms. We highly recommend patients make use of the [employer] Experience website, (www.Connect [employer]Goji), that provides a self-management program for people living with fibromyalgia. When tested in a trial, this was shown to be quite effective at improving symptoms. [facility] History of Present illness Narrative* Naveen Mora MD - 11/11/2023 11:46 AM EDT On 11/11/2023, I [facility] the [facility] Sammy Redd was referred by Dee Flores for an opinion and adviceregarding joint pain. My findings and final recommendations will be communicated to the requesting health care provider by way of the shared medical record for internal providers or letter via the [employer] for external providers. Chief complaint: Joint pain HPI: To review, Sammy Redd is a 43 year old female - Around age 16, noted onset of thyroid issues and body aches. The aching has progressed since onset. Diagnosed with Raynaud's at a young age with white/blue discoloration with cold exposure - In , seen by [facility] rheum Dr. Kellogg for fibromyalgia - In May, seen by [facility] rheum Dr. Dianna Bennett and diagnosed with hypermobility - In interim, neuro was concerned about myasthenia given L eye drooping. 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 - Since around Apr, has noted onset of red and hot hands. Also with finger swelling of the MCPs/PIPs upon awakening with improvement as the day progresses. Does feel hot during the night that wakes her up. Unable to tolerate heat now, used to be cold. Heat and alcohol trigger symptoms. - Today, reports fingers get swollen and red upon awakening PAST MEDICAL HISTORY Diagnosis Date Anesthesia states mom had issues in 2013 leading to air emboli after surgery. pt herself has had no issues. Anxiety Cerebral aneurysm 2015 just watching scanned last 2021 - Dr. Oneal Complicated migraine Endometriosis 75% improvement in abdominal pain post lap surgery Fibromyalgia Hypothyroidism IBS (irritable bowel syndrome) Insulin resistance Kidney stone Lactose intolerance in adult Left thyroid nodule 12/2020 repeat thyroid US 12/2021 Low HDL (under 40) Low serum progesterone worsening symptoms with progesterone rx Lumbar disc disease 05/13/2010 Migraines CADENCE (obstructive sleep apnea) Last polysomnogram in 2012, last use in 2012 Personal history of kidney stones Polycystic ovary syndrome 06/19/2010 Protein S deficiency (HCC) 2008 clotting disorder (just had APPT drawn - in [facility]) PUD (peptic ulcer disease) 2010 treated medically, [...] PYELOTOMY W/REMOVAL CALCULUS 04/27/2008 multiple VAGINAL HYSTERECTOMY ALLERGIES Allergen Reactions Aleve [Naproxen Sod* Vomiting Ibuprofen without problems Vomiting with Aleve with one time use Compazine [Prochlor* Mental Status Change Menthol Rash Metformin GI Upset Morphine (Pf) Other: See Comments Respiratory depression Penicillins Swelling Adhesive Rash MEDICATIONS: Current Outpatient Medications Medication Sig diclofenac (VOLTAREN ARTHRITIS PAIN) 1 % topical gel Apply 2 g to affected area three times a day as needed. triamcinolone acetonide (KENALOG) 0.5 % cream Apply 1 application to affected area daily at bedtime. On left lower leg skin lesion at ankle. Apply sparingly. Avoid face/skin fold. cyanocobalamin 1,000 mcg/mL Inject 1 mL intramuscularly one time a week for 30 days, THEN 1 mL every 2 weeks for 60 days, THEN 1 mL once every month. lisdexamfetamine (VYVANSE) 20 mg capsule Take 1 capsule by mouth once daily for 30 days. In the morning Syringe with Needle, Safety (SAFETY-NAVDEEP 10CC SYR 21GX1.5) 10 mL 21 gauge x 1 1/2 syrg 1 Syringe as directed. vitamin b complex (B COMPLETE) tab Take 1 tablet by mouth once daily. levothyroxine (SYNTHROID) 88 mcg tablet Take 1 tablet by mouth daily before breakfast. and skip 1 day weekly. tiZANidine (ZANAFLEX) 4 mg tablet Take 1 tablet by mouth every 8 hours as needed (muscle spasms). Cholecalciferol, Vitamin D3, 125 mcg (5,000 unit) cap Take 1 capsule by mouth once daily. (Patient taking differently: Take 5,000 Units by mouth every morning.) ondansetron orally disintegrating (ZOFRAN ODT) 4 mg disintegrating tablet Take 1 tablet by mouth every 6 hours as needed for Nausea/Vomiting. No current facility-administered medications for this visit. 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 2 kids: 20 yo and 14 yo Tobacco use: None Alcohol use: None Drug use: None Review of Systems CONSTITUTION: Negative for: Fever and Recent weight change HEENT: Positive for: Mouth sores and Dry mouth Negative for: Nosebleeds and Trouble swallowing RESPIRATORY: Negative for: Cough, Shortness of breath and Pain with breathing GASTROINTESTINAL: Positive for: Diarrhea Negative for: Melena, Heartburn and Abdominal pain MUSCULOSKELETAL: Positive for: Arthralgias, Myalgias, Muscle weakness, Joint swelling and Morning Joint Stiffness NEUROLOGICAL: Positive for: Headaches, Numbness and Memory loss SKIN: Positive for: Rash, Sun Sensitive Rash, Skin changes and Hair loss Negative for: Nail changes EYES: Positive for: Eye pain, Eye dryness and Visual disturbance Negative for: Eye redness CARDIOVASCULAR: Negative for: Chest pain and Leg swelling GENITOURINARY: Positive for: Hematuria Negative for: Dysuria HEMATOLOGIC/LYMPHATIC: Negative for: Swollen glands PHYSICAL EXAM: VITALS: Blood pressure 111/77, pulse 71, temperature 36.2 C (97.2 F), temperature source Temporal, height 152.4 cm (5'), weight 90 kg (198 lb 8 oz), last menstrual period 05/30/2019. CONSTITUTIONAL: Well-appearing, in NAD. SKIN: No rash. No alopecia. No sclerodactyly, calcinosis, telangiectasias, digital ulcers, or skin thickening. EYES: No scleral icterus or conjunctivitis ENT and Mouth: External ears normal. Nares normal. RESPIRATORY: Normal breath sounds, clear to auscultation. CARDIOVASCULAR: Regular rate and rhythm, no murmurs or rubs EXTREMITIES/LYMPH: No edema bilaterally NEURO: Awake, alert and oriented, Normal gait MUSCULOSKELETAL: JOINT APPEARANCE: No erythema or warmth of any upper or lower extremity joint. RANGE OF MOTION: Able to fully close fists and curl fingers bilaterally. SWOLLEN JOINTS/SYNOVITIS: No synovitis of any joint. TENDER JOINTS: Diffuse tenderness to palpation of the bilateral shoulders, elbows, wrists, MCPs, PIPs, DIPs, knees, ankles, MTPs and all intervening regions of the upper and lower extremity muscles bilaterally Widespread Pain Index: 11 (0-19) Symptoms Severity Scale: 9 (0-12) WPI>7 and SS Scale>5 OR WPI 3-6 and SS Scale >9 consistent with fibromyalgia LABORATORY: *August high wbc 12.3 with otherwise unremarkable Hgb, Plt, Cr, ALT and AST Latest Ref Rng 03/24/2018 04/28/2018 12/09/2021 08/10/2023 Sm Antibody Negative <0.2 Negative Negative NURSE HEAD Antibody <1.0 AI <0.2 SSA Antibody <1.0 AI <0.2 SSB Antibody <1.0 AI <0.2 Centromere Ab <1.0 AI <0.2 <0.2 <0.2 Scleroderma Ab, IgG <1.0 AI <0.2 Susan 1 Antibody <1.0 AI <0.2 <0.2 <0.2 Ribosomal NURSE HEAD <1.0 AI <0.2 Chromatin Antibody <1.0 AI <0.2 ZACHARIAH Negative Positive ! Negative ZACHARIAH Titer Negative 1:80 ! Negative ZACHARIAH Pattern Speckled Not applicable for negative result. CCP Antibody IgG Qualitative Negative Negative Negative CCP Antibody, IgG <20 Units <15 <15 Anti-Sm <1.0 AI <0.2 <0.2 NURSE HEAD Antibody QUAL Negative Negative Negative Anti-NURSE HEAD <1.0 AI <0.2 <0.2 SSA Antibody Qual Negative Negative Negative Anti-SSA <1.0 AI <0.2 <0.2 Anti-SSB <1.0 AI <0.2 <0.2 SSB Antibody Qual Negative Negative Negative CENTROMERE AB QUAL Negative Negative Negative Scleroderma Ab Qual Negative Negative Negative Scl-70 Abs, EIA <1.0 AI <0.2 <0.2 SUSAN 1 ANTIBODY QUAL Negative Negative Negative Ribosomal NURSE HEAD Qualitative Negative Negative Negative Ribosomal NURSE HEAD Ab <1.0 AI <0.2 <0.2 Chromatin Ab Qual Negative Negative Negative Chromatin Ab <1.0 AI <0.2 <0.2 Rheumatoid Factor <16 IU/mL <10 <10 <10 WSR 0 - 20 mm/hr 18 16 CRP <0.9 mg/dL 0.7 0.3 0.3 ZACHARIAH Scr Qual Negative Negative Negative CK 42 - 196 U/L 94 STUDIES: *July xray hands/feet- No significant bone or articular abnormality. IMPRESSION and PLAN: 1. Erythromelalgia: Likely cause of the finger redness/swelling that occurs when feeling hot or after consuming alcohol. Explained that symptoms are less likely due to inflammatory arthritis, but given FHx of inflammatory arthritis, can screen for synovitis with US wrists/hands. Serologies are overall unremarkable, including testing for RA. - Extensively explained the diagnosis. Reviewed that management would include avoidance of hot environments and use of cooling techniques. Written information provided. - Check US wrists/hands. Notify of results via [employer] 2. Benign joint hypermobility syndrome: Meets Beighton criteria on prior rheum evaluation - Explained diagnosis - Provided information on joint protection strategies - Advised myofascial release via massage, foam rolling, theragun etc - She defers a PT referral to educate about joint protection strategies for now 3. Fibromyalgia: Meets criteria based on WPI/SS scale score as above. - Explained diagnosis and provided literature on fibromyalgia for review - Advised aerobic exercise - Please refer to the fibromyalgia treatment guidelines as detailed below for further management byP 4. Lichen sclerosis: - Given referral to derm 5. General health maintenance: - Advised to continue follow-up with PCP for routine health maintenance and malignancy screening Follow-up as needed. Patient was instructed to call if any new or worsening symptoms. Thank you for allowing me to participate in the care of your patient. Naveen Mora MD I spent a total of 63 minutes on the date of the service which included preparing to see the patient, [id number] patient care, completing clinical documentation, obtaining and/or reviewing separately obtained history, performing a medically appropriate examination, counseling and educating the pat ient/family/caregiver, ordering medications, tests, or procedures, independently interpreting results (not separately reported), and communicating results to the patient/family/caregiver. Treatment Recommendations for Fibromyalgia developed by Dr. Isaiah Colon M.D. 1. Medications: We recommend first trying a tricyclic antidepressant such as cyclobenzaprine (Flexeril) or amitriptyline (Elavil) in patients who have not yet had an adequate trial of this class of medications. We prefer Flexeril. Although Flexeril is generally marketed as a muscle relaxant, the similarities in chemical structure to the tricyclic antidepressants make it a very useful medication to treat pain and it can also be helpful for treating sleep disturbance. Begin Flexeril at a dose of 5 mg 2-3 hours before bedtime. Taking the medication in this fashion can help decrease morning grogginess. Increase the dose by 5 mg every week as tolerated until a total dose of 20 mg is achieved. Increased fluid intake may decrease the incidence of dry mouth and constipation. Patients should also be warned about potential weight gain. Amitriptyline (Elavil) can be used similarly in doses starting at 10 mg before bedtime, increasing by 10 mg weekly as tolerated up to 50 mg. Nortriptyline is also a good choice for many people. If maximum tolerated doses of trycyclics are not providing adequate pain relief, we recommend addition (if Flexeril/Elavil is helping) or substitution of a dual reuptake inhibitor such as Cymbalta (duloxetine) or Savella (milnacipran). Such drugs may be the drug of first choice in fibromyalgia patients with prominent depression or fatigue, as they often work well for these co-morbid symptoms (in addition to treating pain). Begin Cymbalta at 30 mg once daily with food. The dose can eventually beincreased up to a total of 120 mg per day as tolerated, taken either as a single night time dose orb.i.d. Begin Savella at 25 mg, slowly increasing the dose as tolerated to a maximum of 100mg daily (e.g. 50 mg b.i.d.). Both drugs may initially cause nausea, palpitations, and other noradrenergic side effects, so patients should be instructed that this may happen. These side effects usually resolve over time. Another class of medication with proven efficacy in fibromyalgia are the dpzpy-0-lsnze ligands, Neurontin (gabapentin) and Lyrica (pregabalin). This class of drug might be the best first choice for afibromyalgia patient with prominent sleep problems. Lyrica is specifically approved for fibromyalgia, at doses of both 300 and 450mg. For Neurontin, doses typically in the range of 1500 - 3000 mg arenecessary to treat pain. Both drugs are better tolerated if most or even all of the dose is taken at bedtime (e.g. 150 mg in the morning and 300 mg at night for Lyrica, or 600 mg in the morning and 1200 mg at night for Neurontin). Some of the other medications that can be helpful in some fibromyalgia patients are higher doses ofolder SSRI s such as Prozac, Zoloft, or Paxil. Dosages higher than those typically used for treating depression (e.g. 40 - 50 mg of Prozac) are often necessary as it appears that at these higher dosages the important noradrenergic activity of these drugs becomes more prominent. Gamma hydroxybutyrate (particularly in those with significant sleep problems) and dopamine agonists (in those with co-morbid restless leg syndrome) can also be helpful in subsets of fibromyalgia patients. 2. Non-pharmacologic management: Activity/exercise. A weinstein aspect of fibromyalgia management is for the patient to appreciate that when their symptom(s) decrease in response to pharmacologic therapy, they must correspondingly increase their function. For example, when medication(s) diminishes pain, fatigue or other symptoms by 20%, this should lead to a 20% increase in activity/function. Such an increase in function and activity may result in a continuing reduction in complaints of pain, fatigue, etc. and may also diminish associated depressive and anxiety symptoms. We highly recommend patients make use of the [employer] Interactive Experience website, (www.[employer]Goji), that provides a self-management program for people living with fibromyalgia. When tested in a trial, this was shown to be quite effective at improving symptoms. documented in this encounterC[facility] Telephone encounter Note * Telephone Encounter - Giana Alicea MA - 10/06/2023 10:02 AM EDT Patient has been identified by name and date of : Yes, Provider [place] Date 10/06/2023 Time 1002am Patient phones for refill(s): Requested Prescriptions Pending Prescriptions Disp Refills diclofenac (VOLTAREN ARTHRITIS PAIN) 1 % topical gel 100 g 1 Sig: Apply 2 g to affected area three times a day as needed. Date of last office visit in primary care: 09/29/2023 Date of next office visit in primary care: Visit date not found Please advise. Thank you. Giana Alicea MA. [facility] Miscellaneous Notes* Telephone Encounter - Giana Alicea MA - 10/06/2023 10:02 AM EDT Patient has been identified by name and date of : Yes, Provider [place] Date 10/06/2023 Time 1002am Patient phones for refill(s): Requested Prescriptions Pending Prescriptions Disp Refills diclofenac (VOLTAREN ARTHRITIS PAIN) 1 % topical gel 100 g 1 Sig: Apply 2 g to affected area three times a day as needed. Date of last office visit in primary care: 09/29/2023 Date of next office visit in primary care: Visit date not found Please advise. Thank you. Giana Alicea MA. documented in this encounterC[facility]06-[facility] Telephone encounter Note * Telephone Encounter - Karuna Reeves - 10/02/2023 2:23 PM EDT Called and spoke with patient. Informed her of message. Verbalized understanding and thanks. Karuna Reeves CMA [facility] Telephone encounter Note* Telephone Encounter - Karuna Reeves - 10/02/2023 2:23 PM EDT ----- Message from Shahnaz De León MA sent at 10/01/2023 9:40 AM EDT ----- Left vm for pt to call office back. Shahnaz De León MA ----- Message ----- From: Perlita Cunningham APRN.PRINTING EQUIPMENT MECHANIC APPRENTICE Sent: 10/01/2023 9:30 AM EDT To: [facility] Clinical Pool CT did not show any kidney stones. Thanks, Perlita Cunningham APRN.PRINTING EQUIPMENT MECHANIC APPRENTICE [facility] Miscellaneous Notes* Telephone Encounter - Karuna Reeves - 10/02/2023 2:23 PM EDT Called and spoke with patient. Informed her of message. Verbalized understanding and thanks. Karuna Reeves CMA * Telephone Encounter - Karuna Reeves - 10/02/2023 2:23 PM EDT ----- Message from Shahnaz De León MA sent at 10/01/2023 9:40 AM EDT ----- Left vm for pt to call office back. Shahnaz De León MA ----- Message ----- From: Perlita Cunningham APRN.PRINTING EQUIPMENT MECHANIC APPRENTICE Sent: 10/01/2023 9:30 AM EDT To: [facility] Clinical Pool CT did not show any kidney stones. Thanks, Perlita Cunningham APRN.PRINTING EQUIPMENT MECHANIC APPRENTICE documented in this encounterC[facility]06-06-2024 Telephone encounter Note * Telephone Encounter - Shahnaz De León MA - 10/01/2023 11:08 AM EDT Pt called and left a vm stating she was calling us back. I do not see an encounter. Shahnaz De León MA [facility] Miscellaneous Notes* Telephone Encounter - Shahnaz Callejas MA - 10/01/2023 11:08 AM EDT Pt called and left a vm stating she was calling us back. I do not see an encounter. Shahnaz De León MA documented in this encounterCleveland [facility]06-04-20[facility] History of Present illness Narrative* Jose Luis [place] DO - 09/29/2023 3:32 PM EDT CC: Sammy Redd is a 43 year old female who presents to the office for follow up HPI: Swelling in hands and joint stiffness, worse in hands. Feels like her body is inflamed. No redness, feels worse in the AM or after she has been using her hands a lot. No known hx of inflammatory joint disease Hypothyroidism, taking her levothyroxine TSH Date Value Ref Range Status 08/10/2023 0.910 0.270 - 4.200 mIU/L Final Comment: If the patient is , TSH reference range varies by gestational period: First Trimester (weeks 9-12): 0.180-2.990 mIU/L Second Trimester: 0.110-3.980 mIU/L Third Trimester: 0.480-4.710 mIU/L Devon Lim et al. A Practical Approach for the Verifications and Determination of Site- and Trimester-Specific Reference Intervals for Thyroid Function tests in . Thyroid, 2019:29:3:412-420.Gordon Cuadra, et al. 2017 Guidelines of the [place] Thyroid Association for the Diagnosis and Management of Thyroid Disease during and the . Thyroid, 2017:27:3:315-389. Recently seen by Neurologist- left eyelid drooping. Feels she may have myasthenia gravis. She doesn't want to start on any medication. Obesity, weight 197 lbs, Frustrated with weight gain, she is exercising more regularly at the gym at at home with rowing machine and weight lifting. Inflammation does affect exercising so much, is now 3 times per week rather than 4 times per week. Averages 12,000 steps per day Anxiety, long standing, needing rx refills for her Ativan - taking as needed. Severe fatigue, long standing hx of vitamin b12 deficiency, has been taking oral supplement. She isinterested in tryig to injections to see if helps her fatigue more ADD, getting headaches with Adderall medication. Would like to try an alternative medication PAST MEDICAL HISTORY Diagnosis Date Anesthesia states mom had issues in 2013 leading to air emboli after surgery. pt herself has had no issues. Anxiety Cerebral aneurysm 2015 just watching scanned last 2021 - Dr. Oneal Complicated migraine Endometriosis 75% improvement in abdominal pain post lap surgery Fibromyalgia Hypothyroidism IBS (irritable bowel syndrome) Insulin resistance Kidney stone Lactose intolerance in adult Left thyroid nodule 12/2020 repeat thyroid US 12/2021 Low HDL (under 40) Low serum progesterone worsening symptoms with progesterone rx Lumbar disc disease 05/13/2010 Migraines CADENCE (obstructive sleep apnea) Last polysomnogram in 2012, last use in 2012 Personal history of kidney stones Polycystic ovary syndrome 06/19/2010 Protein S deficiency (HCC) 2008 clotting disorder (just had APPT drawn - in [facility]) PUD (peptic ulcer disease) 2009 treated medically, [...] PYELOTOMY W/REMOVAL CALCULUS 04/27/2008 multiple VAGINAL HYSTERECTOMY Current Outpatient Medications Medication Sig Phentermine HCl (ADIPEX-P) 37.5 mg tablet Take 1 tablet by mouth once daily for 30 days. BMI 38.28 LORazepam (ATIVAN) 0.5 mg Take 1 tablet by mouth once daily as needed for up to 30 days. triamcinolone acetonide (KENALOG) 0.5 % cream Apply 1 application to affected area daily at bedtime. On left lower leg skin lesion at ankle. Apply sparingly. Avoid face/skin fold. cyanocobalamin 1,000 mcg/mL Inject 1 mL intramuscularly one time a week for 30 days, THEN 1 mL every 2 weeks for 60 days, THEN 1 mL once every month. lisdexamfetamine (VYVANSE) 20 mg capsule Take 1 capsule by mouth once daily for 30 days. In the morning Syringe with Needle, Safety (SAFETY-NAVDEEP 10CC SYR 21GX1.5) 10 mL 21 gauge x 1 1/2 syrg 1 Syringe as directed. dextroamphetamine-amphetamine (ADDERALL) 10 mg tablet Take 1 tablet by mouth once daily for 30 days. Do not start before September 01, 2023. diclofenac (VOLTAREN ARTHRITIS PAIN) 1 % topical gel Apply 2 g to affected area three times a day as needed. vitamin b complex (B COMPLETE) tab Take 1 tablet by mouth once daily. levothyroxine (SYNTHROID) 88 mcg tablet Take 1 tablet by mouth daily before breakfast. and skip 1 day weekly. tiZANidine (ZANAFLEX) 4 mg tablet Take 1 tablet by mouth every 8 hours as needed (muscle spasms). Cholecalciferol, Vitamin D3, 125 mcg (5,000 unit) cap Take 1 capsule by mouth once daily. (Patient taking differently: Take 5,000 Units by mouth every morning.) ondansetron orally disintegrating (ZOFRAN ODT) 4 mg disintegrating tablet Take 1 tablet by mouth every 6 hours as needed for Nausea/Vomiting. No current facility-administered medications for this visit. ALLERGIES Allergen Reactions Aleve [Naproxen Sod* Vomiting Ibuprofen without problems Vomiting with Aleve with one time use Compazine [Prochlor* Mental Status Change Menthol Rash Metformin GI Upset Morphine (Pf) Other: See Comments Respiratory depression Penicillins Swelling Adhesive Rash Social History Tobacco Use Smoking status: Never Smokeless tobacco: Never Vaping Use Vaping Use: Never used Substance Use Topics Alcohol use: Yes Comment: twice a year-socially Drug use: No ROS: See HPI PE: BP 124/72 Pulse 76 Temp (Src) 98.2 (Left Tympanic) Resp 12 Wt 197 lb (89.4kg) LMP 05/30/2019 Gen: A&OX3, NAD, non-toxic appearing HEENT: PERRLA, EOMs intact b/l, nares without drainage, pharynx without erythema, exudate, lesions,or drainage. Uvula midline. Neck: No LAD, no thyromegaly, no meningismus. CV: RRR, no murmur Lungs: CTA b/l, no wheezing Skin: No rashes, lesions, or wounds on exposed skin. Central obesity Joint pains DIP and PIP b/l hands Normal peripheral pulses No leg edema ASSESSMENT/PLAN: 1. Vitamin B12 deficiency - ICD9: 266.2, ICD10: E53.8 (primary diagnosis) Start on vitamin b12 injections Continue oral supplement - CYANOCOBALAMIN (VIT B-12) 1,000 MCG/ML INJECTION SOLUTION - CYANOCOBALAMIN (VIT B-12) 1,000 MCG/ML INJECTION SOLUTION - BD SAFETY-NAVDEEP DETACHABLE NEEDLE SYRINGE 10 ML 21 GAUGE X 1 1/2 2. Obesity, Class II, BMI 35-39.9 - ICD9: [...] track your calories and exercise as well. Consider changing to GLP1 agonist - PHENTERMINE 37.5 MG TABLET 3. Impaired concentration - ICD9: 799.51, ICD10: R41.840 rx discontinued for Adderall due to headaches SE, start on Vyvanse Okay for prn Ativan - LORAZEPAM 0.5 MG TABLET - LISDEXAMFETAMINE 20 MG CAPSULE 4. Anxiety disorder, unspecified type - ICD9: 300.00, ICD10: F41.9 rx discontinued for Adderall due to headaches SE, start on Vyvanse Okay for prn Ativan - LORAZEPAM 0.5 MG TABLET 5. Dermatofibroma - ICD9: 216.9, ICD10: D23.9 rx refilled. - TRIAMCINOLONE ACETONIDE 0.5 % TOPICAL CREAM 6. Finger swelling - ICD9: 729.81, ICD10: M79.89 F/u with Retail Branch Manager 7. Stiffness of hand joint, unspecified laterality - ICD9: 719.54, ICD10: M25.649 F/u with Rheumoatologist Jose Luis Toledo DO Return if no improvement. Follow up with Jose Luis Toledo DO. To ER if develops chest pain, shortness of breath. Discussed risks, benefits, alternatives, and potential side effects of medications. Patient/Guardian expressed understanding and agreed with the plan. See patient instructions. Jose Luis Toledo DO [address] [place] [address] documented in this encounterC[facility] History of Present illness Narrative* Cynthia oHang CT - 09/29/2023 2:20 PM EDT Radiology Service Progress Note PATIENT NAME: Sammy TIERNEYN: [id number] DATE OF SERVICE: September 29, 2023 TIME: 2:49 PM PATIENT IDENTITY VERIFICATION COMPLETED USING TWO (2) IDENTIFIERS: Name and Date of confirmedby patient verbally. FALL SCREENING: Has the patient had 2 falls in the last year or 1 fall with injury or currently using an Ambulatory Assistive Device (Walker, Cane, Wheelchair, Crutches, etc.)? No PATIENT GENDER DATA: Female. status: : No status: NO. PATIENT RELEVANT IMPLANT DATA REVIEWED: Not Applicable PATIENT PRESENTS WITH AN IMPLANTABLE OR ATTACHED DRUG INSPECTOR: No RADIOLOGY DEPARTMENT: CT; Exam(s) Completed: Abdomen/Pelvis PERIPHERAL IV DATA: Not applicable SIGNED BY: PRITI Avalos September 29, 2023 2:49 PM documented in this encounterCleveland Clinic [facility]05-28-2024 NoteHNO ID: [id number] Author: NELIDA IRVING APRN.PRINTING EQUIPMENT MECHANIC APPRENTICE Service: ? Author Type: Nurse Practitioner Type: Progress Notes Filed: 09/22/2023 09:44 Note Text: [facility] ESTABLISHED PATIENT OFFICE VISIT Patient presents with: Right ureteral stone HISTORY OF PRESENT ILLNESS Sammy Redd is a 43 year old female who is here for follow up of renal stone Since last visit she has continued to have intermittent R sided flank pain. She denies any urinary issues, no dysuria or hematuria. KUB 09/17/23- no obvious stones noted. PVR 0ml UA clear Review of Systems The remainder of the ROS was reviewed and is negative. LAB Creatinine Date Value Ref Range Status 08/10/2023 0.64 0.58 - 0.96 mg/dL Final No results found for: PSA, PSASC GLUCOSE UA (POCT) (mg/dL) Date Value 04/06/2023 Negative BILIRUBIN UA (POCT) (no units) Date Value 04/06/2023 Negative KETONE UA (POCT) (mg/dL) Date Value 04/06/2023 Negative SPECIFIC GRAVITY UA (POCT) (no units) Date Value 04/06/2023 >=1.030 HEMOGLOBIN/BLOOD UA (POCT) (no units) Date Value 04/06/2023 Negative PH UA (POCT) (no units) Date Value 04/06/2023 6.0 PROTEIN UA (POCT) (mg/dL) Date Value 04/06/2023 Negative UROBILINOGEN UA (POCT) (E.U./dL) Date Value 04/06/2023 0.2 NITRITE UA (POCT) (no units) Date Value 04/06/2023 Negative LEUKOCYTES UA (POCT) (no units) Date Value 04/06/2023 Negative COLOR UA (POCT) (no units) Date Value 04/06/2023 Yellow CLARITY UA (POCT) (no units) Date Value 04/06/2023 Clear ] MEDICATIONS dextroamphetamine-amphetamine (ADDERALL) 10 mg tablet Take 1 tablet by mouth once daily for 30 days. dextroamphetamine-amphetamine (ADDERALL) 10 mg tablet Take 1 tablet by mouth once daily for 30 days. Do not start before September 01, 2023. dextroamphetamine-amphetamine (ADDERALL) 10 mg tablet Take 1 tablet by mouth once daily for 30 days. Do not start before August 04, 2023. diclofenac (VOLTAREN ARTHRITIS PAIN) 1 % topical gel Apply 2 g to affected area three times a day as needed. vitamin b complex (B COMPLETE) tab Take 1 tablet by mouth once daily. levothyroxine (SYNTHROID) 88 mcg tablet Take 1 tablet by mouth daily before breakfast. and skip 1 day weekly. tiZANidine (ZANAFLEX) 4 mg tablet Take 1 tablet by mouth every 8 hours as needed (muscle spasms). Magnesium Oxide 250 mg magnesium tab Take 1 tablet by mouth daily at bedtime. triamcinolone acetonide (KENALOG) 0.5 % cream Apply 1 application to affected area daily at bedtime. On left lower leg skin lesion at ankle. Apply sparingly. Avoid face/skin fold. carbonyl iron 15 mg chew Take 1 tablet by mouth twice daily with meals. Cholecalciferol, Vitamin D3, 125 mcg (5,000 unit) cap Take 1 capsule by mouth once daily. (Patient taking differently: Take 5,000 Units by mouth every morning.) ondansetron orally disintegrating (ZOFRAN ODT) 4 mg disintegrating tablet Take 1 tablet by mouth every 6 hours as needed for Nausea/Vomiting. 0 HISTORIES PAST MEDICAL HISTORY Diagnosis Date Anesthesia states mom had issues in 2013 leading to air emboli after surgery. pt herself has had no issues. Anxiety Cerebral aneurysm 2016 just watching scanned last 2021 - Dr. [...] disorder (just had APPT drawn - in [facility] - [facility]) PUD (peptic ulcer disease) 2009 treated [...] Arthritis Mother Fibromyalgia other (irregular heartbeat) Mother Arthritis Father RA Thyroid Father Hypertension Father Thyroid Cancer Sister Diabetes Brother (more content not included)...[facility]05-28-2024 History of Present illness Narrative* Nelida Irving, EMORY.PRINTING EQUIPMENT MECHANIC APPRENTICE - 09/22/2023 9:03 AM EDT Images from the original note were not included. [facility] ESTABLISHED PATIENT OFFICE VISIT Patient presents with: Right ureteral stone HISTORY OF PRESENT ILLNESS Sammy Redd is a 43 year old female who is here for follow up ofrenal stone Since last visit she has continued to have intermittent R sided flank pain. She denies any urinary issues, no dysuria or hematuria. KUB 09/17/23- no obvious stones noted. PVR 0ml UA clear Review of Systems The remainder of the ROS was reviewed and is negative. LAB Creatinine Date Value Ref Range Status 08/10/2023 0.64 0.58 - 0.96 mg/dL Final No results found for: PSA, PSASC GLUCOSE UA (POCT) (mg/dL) Date Value 04/06/2023 Negative BILIRUBIN UA (POCT) (no units) Date Value 04/06/2023 Negative KETONE UA (POCT) (mg/dL) Date Value 04/06/2023 Negative SPECIFIC GRAVITY UA (POCT) (no units) Date Value 04/06/2023 >=1.030 HEMOGLOBIN/BLOOD UA (POCT) (no units) Date Value 04/06/2023 Negative PH UA (POCT) (no units) Date Value 04/06/2023 6.0 PROTEIN UA (POCT) (mg/dL) Date Value 04/06/2023 Negative UROBILINOGEN UA (POCT) (E.U./dL) Date Value 04/06/2023 0.2 NITRITE UA (POCT) (no units) Date Value 04/06/2023 Negative LEUKOCYTES UA (POCT) (no units) Date Value 04/06/2023 Negative COLOR UA (POCT) (no units) Date Value 04/06/2023 Yellow CLARITY UA (POCT) (no units) Date Value 04/06/2023 Clear ] MEDICATIONS dextroamphetamine-amphetamine (ADDERALL) 10 mg tablet Take 1 tablet by mouth once daily for 30 days. dextroamphetamine-amphetamine (ADDERALL) 10 mg tablet Take 1 tablet by mouth once daily for 30 days. Do not start before September 01, 2023. dextroamphetamine-amphetamine (ADDERALL) 10 mg tablet Take 1 tablet by mouth once daily for 30 days. Do not start before August 04, 2023. diclofenac (VOLTAREN ARTHRITIS PAIN) 1 % topical gel Apply 2 g to affected area three times a day as needed. vitamin b complex (B COMPLETE) tab Take 1 tablet by mouth once daily. levothyroxine (SYNTHROID) 88 mcg tablet Take 1 tablet by mouth daily before breakfast. and skip 1 day weekly. tiZANidine (ZANAFLEX) 4 mg tablet Take 1 tablet by mouth every 8 hours as needed (muscle spasms). Magnesium Oxide 250 mg magnesium tab Take 1 tablet by mouth daily at bedtime. triamcinolone acetonide (KENALOG) 0.5 % cream Apply 1 application to affected area daily at bedtime. On left lower leg skin lesion at ankle. Apply sparingly. Avoid face/skin fold. carbonyl iron 15 mg chew Take 1 tablet by mouth twice daily with meals. Cholecalciferol, Vitamin D3, 125 mcg (5,000 unit) cap Take 1 capsule by mouth once daily. (Patient taking differently: Take 5,000 Units by mouth every morning.) ondansetron orally disintegrating (ZOFRAN ODT) 4 mg disintegrating tablet Take 1 tablet by mouth every 6 hours as needed for Nausea/Vomiting. 0 HISTORIES PAST MEDICAL HISTORY Diagnosis Date [...] disorder (just had APPT drawn - in [facility]) PUD (peptic ulcer disease) 2010 treated medically, [...] Arthritis Mother Fibromyalgia other (irregular heartbeat) Mother Arthritis Father RA Thyroid Father Hypertension Father Thyroid Cancer Sister Diabetes Brother type 1 Diabetes Brother Type 1 Hypertension Maternal Grandmother Alzheimer's Disease Maternal Grandmother Arthritis Maternal Grandmother other (dementia) Maternal Grandmother Stroke Maternal Grandfather ADD/ADHD Daughter other (Eosinophilic esophagitis) Son other (Abdominal migraines) Son SOCIAL HISTORY Social History Tobacco Use Smoking status: Never Smokeless tobacco: Never Vaping Use Vaping Use: Never used Substance Use Topics Alcohol use: Yes Comment: twice a year-socially Drug use: No LMP 05/30/2019 (Exact Date) Physical Exam ASSESSMENT/PLAN: 1. Ureteral stone [N20.1] - ICD9: 592.1, ICD10: N20.1 (primary diagnosis) S/p R ESWL 03/11/23 - Dr Reed ALMONTE - no obvious stones, still having intermittent R flank pain Will obtain CT scan to eval- will call with those results; otherwise f/u 6 months with KUB - BLADDER SCAN 2. Calculus of kidney - ICD9: 592.0, ICD10: N20.0 Dietary modification and prevention discussed Encouraged increase in water - CT ABD/PEL WO IVCON - XR ABDOMEN 1V SUPINE 3. Acute cystitis without hematuria - ICD9: 595.0, ICD10: N30.00 Doing well UA clear Nelida Irving APRN.JOI This note was partially created using voice recognition software and is inherently subject to errors including those of syntax and sound-alike substitutions which may escape proofreading. In such instances, original meaning may be extrapolated by contextual derivation. documented in this encounterCleveland Clinic [facility]05-23-2024 History of Present illness Narrative* Rebeca Durán, RT(R) - 09/17/2023 11:10 AM EDT Radiology Service Progress Note PATIENT NAME: Sammy Redd DATE OF SERVICE: September 17, 2023 TIME: 11:21 AM PATIENT IDENTITY VERIFICATION COMPLETED USING TWO (2) IDENTIFIERS: Name and Date of confirmedby patient verbally. FALL SCREENING: Has the patient had 2 falls in the last year or 1 fall with injury or currently using an Ambulatory Assistive Device (Walker, Cane, Wheelchair, Crutches, etc.)? No PATIENT GENDER DATA: Female. status: : No status: NO. PATIENT RELEVANT IMPLANT DATA REVIEWED: Yes PATIENT PRESENTS WITH AN IMPLANTABLE OR ATTACHED DRUG INSPECTOR: No RADIOLOGY DEPARTMENT: General X-ray: Exam(s) Completed: Abdomen X-Ray: Abdomen PERIPHERAL IV DATA: Not applicable SIGNED BY: RT Nicole(R) September 17, 2023 11:21 AM documented in this encounterC[facility]05-23-2024 Telephone encounter Note * Telephone Encounter - Sunitha Clarke OCCA - 09/17/2023 10:26 AM EDT I called pt to reschedule her upcoming appointment on 09/22/23 with CHARLY Irving. Pt stated that she is still experiencing some discomfort that she thinks is from the ureteral stones. Pt wanted to keepappointment. She stated that she was going to get her KUB today. MAGDIEL Baron [facility]05-23-[facility]24 Miscellaneous Notes* Telephone Encounter - Sunitha Clarke OCCA - 09/17/2023 10:26 AM EDT I called pt to reschedule her upcoming appointment on 09/22/23 with CHARLY Irving. Pt stated that she is still experiencing some discomfort that she thinks is from the ureteral stones. Pt wanted to keepappointment. She stated that she was going to get her KUB today. MAGDIEL Baron documented in this encounterCleveland Clinic [facility]04-15-2024 Miscellaneous Notes* Telephone Encounter - Dee Flores APRN.PRINTING EQUIPMENT MECHANIC APPRENTICE - 08/10/2023 1:39 PM EDT Please let Sammy know that I placed the order for rheumatology as we discussed during her appt,please assist her to schedule with one of the providers requested, if possible. Dee Flores APRN.CNP documented in this encounterCleveland Clinic [facility]04-15-2024 History of Present illness Narrative* Rebeca Durán RT(R) - 08/10/2023 9:30 AM EDT Radiology Service Progress Note PATIENT NAME: Sammy Redd DATE OF SERVICE: August 10, 2023 TIME: 9:23 AM PATIENT IDENTITY VERIFICATION COMPLETED USING TWO (2) IDENTIFIERS: Name and Date of confirmedby patient verbally. FALL SCREENING: Has the patient had 2 falls in the last year or 1 fall with injury or currently using an Ambulatory Assistive Device (Walker, Cane, Wheelchair, Crutches, etc.)? No PATIENT GENDER DATA: Female. status: : No status: NO. PATIENT RELEVANT IMPLANT DATA REVIEWED: Yes PATIENT PRESENTS WITH AN IMPLANTABLE OR ATTACHED DRUG INSPECTOR: No RADIOLOGY DEPARTMENT: General X-ray: Exam(s) Completed: Spine X-Ray(s): Thoracic and Lumbar AP / LAT / L5-S1 Lower Extremity X-Ray(s): Foot, Bilateral and Wt. Bearing Upper Extremity X-Ray(s): Hand, bilateral PERIPHERAL IV DATA: Not applicable SIGNED BY: RT Nicole(R) August 10, 2023 9:23 AM documented in this encounterCleveland Clinic [facility] Hospital04-15-2024 History of Present illness Narrative* Dee Flores APRN.CNP - 08/10/2023 7:55 AM EDT Chief Complaint Patient presents with: Joint Pain: Sixto hands and feet pain swelling, and stiffness x 1 month, now knees, hips and back areachy. No recent injuries. HPI Sammy Redd is a 43 year old female who presents here today for Above Complaints.. For about a month has had what feels like inflammation over her entire body. Previously was just knees-thought it was from working out. Now both hands with severe pain. Handing happen at least every other day and will happen a few times daily. Redness lasts 1-2 hours. Any alcohol whatsoever-will get immediately hot and red, painful. Hands are so swollen right now-specifically her fingers and toes, not so much the full hands and feet. Having back and hip pain, now having mid to upper midline back pain. When gets up in the mornings almost feels like she cannot move at all and does improve throughout the day. The rest of the day is achy but not necessarily painful. No recent illness in the past several months. Does have overall general body aches/muscle aches. Frustrated with weight gain, she is exercising more regularly at the gym at at home with rowing machine and weight lifting. Inflammation does affect exercising so much, is now 3 times per week ratherthan 4 times per week. Averages 12,000 steps per day. Standing is better than sitting. Does have hx Raynauds but this is not the same feeling. Father recently dx with RA. Past medical history, appointments, medications, allergies reviewed. Previous Medical History PAST MEDICAL HISTORY Diagnosis Date Anesthesia states [...] disorder (just had APPT drawn - in [facility]) PUD (peptic ulcer disease) 2010 treated [...] PYELOTOMY W/REMOVAL CALCULUS 04/27/2008 multiple VAGINAL HYSTERECTOMY Family History FAMILY HISTORY Problem Relation Age [...] Vomiting with Aleve with one time use Compazine [Prochlor* Mental Status Change Menthol Rash Metformin GI Upset Morphine (Pf) Other: See Comments Respiratory depression Penicillins Swelling Adhesive Rash Current Medications Current Outpatient Medications on File Prior to Visit Medication Sig Phentermine HCl (ADIPEX-P) 37.5 mg tablet Take 1 tablet by mouth once daily for 30 days. BMI 38.28 dextroamphetamine-amphetamine (ADDERALL) 10 mg tablet Take 1 tablet by mouth once daily for 30 days. [START ON 09/01/2023] dextroamphetamine-amphetamine (ADDERALL) 10 mg tablet Take 1 tablet by mouth once daily for 30 days. Do not start before September 01, 2023. dextroamphetamine-amphetamine (ADDERALL) 10 mg tablet Take 1 tablet by mouth once daily for 30 days. Do not start before August 04, 2023. diclofenac (VOLTAREN ARTHRITIS PAIN) 1 % topical gel Apply 2 g to affected area three times a day as needed. vitamin b complex (B COMPLETE) tab Take 1 tablet by mouth once daily. levothyroxine (SYNTHROID) 88 mcg tablet Take 1 tablet by mouth daily before breakfast. and skip 1 day weekly. tiZANidine (ZANAFLEX) 4 mg tablet Take 1 tablet by mouth every 8 hours as needed (muscle spasms). Magnesium Oxide 250 mg magnesium tab Take 1 tablet by mouth daily at bedtime. triamcinolone acetonide (KENALOG) 0.5 % cream Apply 1 application to affected area daily at bedtime. On left lower leg skin lesion at ankle. Apply sparingly. Avoid face/skin fold. carbonyl iron 15 mg chew Take 1 tablet by mouth twice daily with meals. Cholecalciferol, Vitamin D3, 125 mcg (5,000 unit) cap Take 1 capsule by mouth once daily. (Patient taking differently: Take 5,000 Units by mouth every morning.) ondansetron orally disintegrating (ZOFRAN ODT) 4 mg disintegrating tablet Take 1 tablet by mouth every 6 hours as needed for Nausea/Vomiting. No current facility-administered medications on file prior to visit. Social History Social History Tobacco Use Smoking status: Never Smokeless tobacco: Never Vaping Use Vaping Use: Never used Substance Use Topics Alcohol use: Yes Comment: twice a year-socially Drug use: No Review of Symptoms REVIEW OF SYSTEMS See HPI, otherwise negative EXAM: BP 122/82 (BP Site: Left Arm, BP Position: Sitting, BP Cuff Size: Regular Adult) Pulse 81 Resp 16 Wt 89 kg (196 lb 3.2 oz) LMP 05/30/2019 (Exact Date) SpO2 100% BMI 38.32 kg/m General Appearance: Well appearing, alert, in no acute distress, well-hydrated, well nourished.. Neck: Supple, no adenopathy; thyroid symmetric, normal size, no bruits. Back: pain to palpation of vertebrae over thoracic region, no abnormalities appreciated Lungs: Lungs clear to auscultation. No wheezing, rhonchi, rales.. Heart: RRR without murmur, gallop, or rubs. No ectopy. Extremities: No deformities, edema, skin discoloration, clubbing or cyanosis. Good capillary refill. . Musculoskeletal: no joint swelling, minor discomfort to multiple joints with palpation, pain to groin and lower back with internal rotation of bilateral legs. Peripheral Pulses: Normal. Psychiatric: pleasant, cooperative. Health Maintenance List Hepatitis C Screening Never done HIV Screening Never done Hepatitis B Vaccine(1 of 3 - 19+ 3-dose series) Never done DTaP,Tdap,Td Vaccine(1 - Tdap) due on 07/21/2017 Mammogram Screening due on 06/11/2022 Behavioral Health Screening Never done Covid-19 Vaccine( - 2022- season) due on 07/05/2024 Influenza Vaccine(Season Ended) due on 12/27/2023 Annual PCP Team Chronic Disease Visit due on 07/05/2024 Pap Testing due on 06/25/2025 HPV Testing due on 06/25/2025 HPV Vaccine Aged Out Data reviewed Previous records, office notes ASSESSMENT/PLAN: 1. Arthralgia, unspecified joint - ICD9: 719.40, ICD10: M25.50 (primary diagnosis) Concern for possible autoimmune etiology. - ZACHARIAH BLOOD - C-REACTIVE PROTEIN - ANTI OCTAVIANO ID - RHEUMATOID FACTOR - CCP ANTIBODY IGG - CREATINE KINASE/CK - CORTISOL, SERUM - INSULIN ASSAY BLOOD - PETER BOYD PANEL - LYME AB LATE >30 DAYS SYMPTOMS - COMPLETE BLOOD COUNT AND DIFFERENTIAL - COMPREHENSIVE METABOLIC PANEL - THYROID STIMULATING HORMONE - T3 - T4 FREE/FREE THYROXINE - XR FOOT GENERAL 3V AP/LAT/OBL BILATERAL - XR HAND GENERAL 3V PA/LAT/OBL BILATERAL - XR LUMBAR GENERAL 3V AP/LAT/L5-S1 - XR THORACIC GENERAL 3V AP/LAT/SWIMMERS - CONSULT TO RHEUM/IMMUN DISEASE 2. Myalgia - ICD9: 729.1, ICD10: M79.10 Concern for possible autoimmune etiology. - ZACHARIAH BLOOD - C-REACTIVE PROTEIN - ANTI OCTAVIANO ID - RHEUMATOID FACTOR - CCP ANTIBODY IGG - CREATINE KINASE/CK - CORTISOL, SERUM - INSULIN ASSAY BLOOD - PETER BOYD PANEL - LYME AB LATE >30 DAYS SYMPTOMS - COMPLETE BLOOD COUNT AND DIFFERENTIAL - COMPREHENSIVE METABOLIC PANEL - THYROID STIMULATING HORMONE - T3 - T4 FREE/FREE THYROXINE - XR FOOT GENERAL 3V AP/LAT/OBL BILATERAL - XR HAND GENERAL 3V PA/LAT/OBL BILATERAL - XR LUMBAR GENERAL 3V AP/LAT/L5-S1 - XR THORACIC GENERAL 3V AP/LAT/SWIMMERS - CONSULT TO RHEUM/IMMUN DISEASE 3. Toe swelling - ICD9: 729.81, ICD10: M79.89 Concern for possible autoimmune etiology. - ZACHARIAH BLOOD - C-REACTIVE PROTEIN - ANTI OCTAVIANO ID - RHEUMATOID FACTOR - CCP ANTIBODY IGG - CREATINE KINASE/CK - CORTISOL, SERUM - INSULIN ASSAY BLOOD - PETER BOYD PANEL - LYME AB LATE >30 DAYS SYMPTOMS - COMPLETE BLOOD COUNT AND DIFFERENTIAL - COMPREHENSIVE METABOLIC PANEL - THYROID STIMULATING HORMONE - T3 - T4 FREE/FREE THYROXINE - XR FOOT GENERAL 3V AP/LAT/OBL BILATERAL - CONSULT TO RHEUM/IMMUN DISEASE 4. Finger swelling - ICD9: 729.81, ICD10: M79.89 Concern for possible autoimmune etiology. - ZACHARIAH BLOOD - C-REACTIVE PROTEIN - ANTI OCTAVIANO ID - RHEUMATOID FACTOR - CCP ANTIBODY IGG - CREATINE KINASE/CK - CORTISOL, SERUM - INSULIN ASSAY BLOOD - PETER BOYD PANEL - LYME AB LATE >30 DAYS SYMPTOMS - COMPLETE BLOOD COUNT AND DIFFERENTIAL - COMPREHENSIVE METABOLIC PANEL - THYROID STIMULATING HORMONE - T3 - T4 FREE/FREE THYROXINE - XR HAND GENERAL 3V PA/LAT/OBL BILATERAL - CONSULT TO RHEUM/IMMUN DISEASE 5. Chronic midline low back pain without sciatica - ICD9: 724.2, 338.29, ICD10: M54.50, G89.29 Concern for possible autoimmune etiology. - ZACHARIAH BLOOD - C-REACTIVE PROTEIN - ANTI OCTAVIANO ID - RHEUMATOID FACTOR - CCP ANTIBODY IGG - CREATINE KINASE/CK - CORTISOL, SERUM - INSULIN ASSAY BLOOD - PETER BOYD PANEL - LYME AB LATE >30 DAYS SYMPTOMS - COMPLETE BLOOD COUNT AND DIFFERENTIAL - COMPREHENSIVE METABOLIC PANEL - THYROID STIMULATING HORMONE - T3 - T4 FREE/FREE THYROXINE - XR HAND GENERAL 3V PA/LAT/OBL BILATERAL - CONSULT TO RHEUM/IMMUN DISEASE 6. Acute midline thoracic back pain - ICD9: 724.1, ICD10: M54.6 Concern for possible autoimmune etiology. - ZACHARIAH BLOOD - C-REACTIVE PROTEIN - ANTI OCTAVIANO ID - RHEUMATOID FACTOR - CCP ANTIBODY IGG - CREATINE KINASE/CK - CORTISOL, SERUM - INSULIN ASSAY BLOOD - PETER OBYD PANEL - LYME AB LATE >30 DAYS SYMPTOMS - COMPLETE BLOOD COUNT AND DIFFERENTIAL - COMPREHENSIVE METABOLIC PANEL - THYROID STIMULATING HORMONE - T3 - T4 FREE/FREE THYROXINE - XR HAND GENERAL 3V PA/LAT/OBL BILATERAL - CONSULT TO RHEUM/IMMUN DISEASE 7. Hypothyroidism, acquired - ICD9: 244.9, ICD10: E03.9 Concern for possible autoimmune etiology. - ZACHARIAH BLOOD - C-REACTIVE PROTEIN - ANTI OCTAVIANO ID - RHEUMATOID FACTOR - CCP ANTIBODY IGG - CREATINE KINASE/CK - CORTISOL, SERUM - INSULIN ASSAY BLOOD - PETER BOYD PANEL - LYME AB LATE >30 DAYS SYMPTOMS - COMPLETE BLOOD COUNT AND DIFFERENTIAL - COMPREHENSIVE METABOLIC PANEL - THYROID STIMULATING HORMONE - T3 - T4 FREE/FREE THYROXINE - XR HAND GENERAL 3V PA/LAT/OBL BILATERAL - CONSULT TO RHEUM/IMMUN DISEASE 8. Family history of osteoarthritis - ICD9: V17.89, ICD10: Z82.69 Concern for possible autoimmune etiology. - ZACHARIAH BLOOD - C-REACTIVE PROTEIN - ANTI OCTAVIANO ID - RHEUMATOID FACTOR - CCP ANTIBODY IGG - CREATINE KINASE/CK - CORTISOL, SERUM - INSULIN ASSAY BLOOD - PETER BOYD PANEL - LYME AB LATE >30 DAYS SYMPTOMS - COMPLETE BLOOD COUNT AND DIFFERENTIAL - COMPREHENSIVE METABOLIC PANEL - THYROID STIMULATING HORMONE - T3 - T4 FREE/FREE THYROXINE - XR HAND GENERAL 3V PA/LAT/OBL BILATERAL - CONSULT TO RHEUM/IMMUN DISEASE 9. Pain in both hands - ICD9: 729.5, ICD10: M79.641, M79.642 Concern for possible autoimmune etiology. - ZACHARIAH BLOOD - C-REACTIVE PROTEIN - ANTI OCTAVIANO ID - RHEUMATOID FACTOR - CCP ANTIBODY IGG - CREATINE KINASE/CK - CORTISOL, SERUM - INSULIN ASSAY BLOOD - PETER BOYD PANEL - LYME AB LATE >30 DAYS SYMPTOMS - COMPLETE BLOOD COUNT AND DIFFERENTIAL - COMPREHENSIVE METABOLIC PANEL - THYROID STIMULATING HORMONE - T3 - T4 FREE/FREE THYROXINE - XR HAND GENERAL 3V PA/LAT/OBL BILATERAL - CONSULT TO RHEUM/IMMUN DISEASE 10. Family history of rheumatoid arthritis - ICD9: V17.7, ICD10: Z82.61 Concern for possible autoimmune etiology. - ZACHARIAH BLOOD - C-REACTIVE PROTEIN - ANTI OCTAVIANO ID - RHEUMATOID FACTOR - CCP ANTIBODY IGG - CREATINE KINASE/CK - CORTISOL, SERUM - INSULIN ASSAY BLOOD - PETER BOYD PANEL - LYME AB LATE >30 DAYS SYMPTOMS - COMPLETE BLOOD COUNT AND DIFFERENTIAL - COMPREHENSIVE METABOLIC PANEL - THYROID STIMULATING HORMONE - T3 - T4 FREE/FREE THYROXINE - XR HAND GENERAL 3V PA/LAT/OBL BILATERAL - CONSULT TO RHEUM/IMMUN DISEASE 11. Obesity, Class II, BMI 35-39.9 - ICD9: 278.00, ICD10: E66.9 Concern for possible autoimmune etiology. - ZACHARIAH BLOOD - C-REACTIVE PROTEIN - ANTI OCTAVIANO ID - RHEUMATOID FACTOR - CCP ANTIBODY IGG - CREATINE KINASE/CK - CORTISOL, SERUM - INSULIN ASSAY BLOOD - PETER BOYD PANEL - LYME AB LATE >30 DAYS SYMPTOMS - COMPLETE BLOOD COUNT AND DIFFERENTIAL - COMPREHENSIVE METABOLIC PANEL - THYROID STIMULATING HORMONE - T3 - T4 FREE/FREE THYROXINE - XR HAND GENERAL 3V PA/LAT/OBL BILATERAL - CONSULT TO RHEUM/IMMUN DISEASE Dee Flores APRN.JOI documented in this encounterC[facility] Miscellaneous Notes* Telephone Encounter - 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 APRN.CNP - 08/05/2023 5:28 PM EDT PDMP website checked and validated. All prescriptions have been APPROPRIATELY filled. No suspiciousactivity was identified. 08/05/2023 by 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 APRN.CNP The following approved medication requests have been transmitted electronically. Requested Prescriptions Signed Prescriptions Disp Refills Phentermine HCl (ADIPEX-P) 37.5 mg tablet 30 tablet 2 Sig: Take 1 tablet by mouth once daily for 30 days. BMI 38.28 Authorizing Provider: BRANDI QUINTEROS dextroamphetamine-amphetamine (ADDERALL) 10 mg tablet 30 tablet 0 Sig: Take 1 tablet by mouth once daily for 30 days. Authorizing Provider: BRANDI QUINTEROS APRN.PRINTING EQUIPMENT MECHANIC APPRENTICE * Telephone Encounter - Carol Elder LPN - 08/05/2023 10:10 AM EDT Patient has been identified by name and date of : Yes, Provider dR. Toledo Date 08/05/23 Time 10:12 Patient phones for refill(s): Requested Prescriptions Pending Prescriptions Disp Refills Phentermine HCl (ADIPEX-P) 37.5 mg tablet 30 tablet 2 Sig: Take 1 tablet by mouth once daily for 30 days. BMI 38.28 dextroamphetamine-amphetamine (ADDERALL) 10 mg tablet 30 tablet 0 Sig: Take 1 tablet by mouth once daily for 30 days. Date of last office visit in primary care: 07/06/2023 Date of next office visit in primary care: 09/29/2023 Please advise. Thank you. Carol Elder LPN. documented in this encounterC[facility]03-11-2024 History of Present illness Narrative* Jose Luis Toledo DO - 07/06/2023 9:54 AM EDT CC: Sammy Redd is a 43 year old female who presents to the office for 3 months follow up HPI: Dysmetabolic syndrome. She is frustrated with her central weight and struggling to further lose weight and get this under control. She wanted to start on medication again to help her. Didn't toleratetopamax or metformin or wellbutrin in the past. She was started on Adipex an has lost 8 lbs or more. She is exercising more regularly at the gym at at home with rowing machine and weight lifting ADD, taking adderall as prescribed. Needing rx refilled. Symptoms are stable/controlled Anxiety symptoms, long standing, use of prn ativan as prescribed. Left knee discomfort, mild, inner knee, started after exercise increased, no use of any medication,no swelling or rash PAST MEDICAL HISTORY Diagnosis Date Anesthesia states [...] disorder (just had APPT drawn - in [facility]) PUD (peptic ulcer disease) 2010 treated [...] PYELOTOMY W/REMOVAL CALCULUS 04/27/2008 multiple VAGINAL HYSTERECTOMY Current Outpatient Medications Medication Sig vitamin b complex (B COMPLETE) tab Take 1 tablet by mouth once daily. levothyroxine (SYNTHROID) 88 mcg tablet Take 1 tablet by mouth daily before breakfast. and skip 1 day weekly. tiZANidine (ZANAFLEX) 4 mg tablet Take 1 tablet by mouth every 8 hours as needed (muscle spasms). Magnesium Oxide 250 mg magnesium tab Take 1 tablet by mouth daily at bedtime. triamcinolone acetonide (KENALOG) 0.5 % cream Apply 1 application to affected area daily at bedtime. On left lower leg skin lesion at ankle. Apply sparingly. Avoid face/skin fold. carbonyl iron 15 mg chew Take 1 [...] mouth once daily for 30 days. BMI 38.28 [START ON 09/01/2023] dextroamphetamine-amphetamine (ADDERALL) 10 mg tablet Take 1 tablet by mouth once daily for 30 days. Do not start before September 01, 2023. [START ON 08/04/2023] dextroamphetamine-amphetamine (ADDERALL) 10 mg tablet Take 1 tablet by mouth once daily for 30 days. Do not start before August 04, 2023. dextroamphetamine-amphetamine (ADDERALL) 10 mg tablet Take 1 tablet by mouth once daily for 30 days. LORazepam (ATIVAN) 0.5 mg Take 1 tablet by mouth once daily as needed for up to 30 days. diclofenac (VOLTAREN ARTHRITIS PAIN) 1 % topical gel Apply 2 g to affected area three times a day as needed. No current facility-administered medications for this visit. ALLERGIES Allergen Reactions Aleve [Naproxen Sod* Vomiting Ibuprofen without problems Vomiting with Aleve with one time use Compazine [Prochlor* Mental Status Change Menthol Rash Metformin GI Upset Morphine (Pf) Other: See Comments Respiratory depression Penicillins Swelling Adhesive Rash Social History Tobacco Use Smoking status: Never Smokeless tobacco: Never Vaping Use Vaping Use: Never used Substance Use Topics Alcohol use: Yes Comment: twice a year-socially Drug use: No ROS: See HPI. PE: BP 120/80 Pulse 76 Temp (Src) 97.1 (Left Tympanic) Resp 16 Wt 189 lb (85.7kg) LMP 05/30/2019 Gen: A&OX3, NAD, non-toxic appearing HEENT: PERRLA, EOMs intact b/l, nares without drainage, pharynx without erythema, exudate, lesions,or drainage. Uvula midline. Neck: No LAD, no thyromegaly, no meningismus. CV: RRR, no murmur Lungs: CTA b/l, no wheezing Skin: No rashes, lesions, or wounds on exposed skin. Central obesity + ttp left pes anserine bursa without obvious deformity of knee joint, mild medial joint line tenderness left knee Walking okay without deformity PDMP website checked and validated. All prescriptions have been APPROPRIATELY filled. No suspiciousactivity was identified. 07/06/2023 by Jose Luis Toledo DO ASSESSMENT/PLAN: 1. Anxiety disorder, unspecified type - ICD9: 300.00, ICD10: F41.9 (primary diagnosis) rx refilled, stable - LORAZEPAM 0.5 MG TABLET 2. Obesity, Class II, BMI 35-39.9 - ICD9: [...] track your calories and exercise as well. Continue same medication, no SE - PHENTERMINE 37.5 MG TABLET 3. Impaired concentration - ICD9: 799.51, ICD10: R41.840 Continue same medications, stable - DEXTROAMPHETAMINE-AMPHETAMINE 10 MG TABLET - DEXTROAMPHETAMINE-AMPHETAMINE 10 MG TABLET - DEXTROAMPHETAMINE-AMPHETAMINE 10 MG TABLET - LORAZEPAM 0.5 MG TABLET Jose Luis Toledo DO Return if no improvement. Follow up with Jose Luis Toledo DO. To ER if develops chest pain, shortness of breath. Discussed risks, benefits, alternatives, and potential side effects of medications. Patient/Guardian expressed understanding and agreed with the plan. See patient instructions. Jose Luis Toledo DO [address] [place] [address] documented in this encounterCleveland [facility]02-12-2024 Miscellaneous Notes* Telephone Encounter - Dee Flores APRN.CNP - 06/08/2023 11:52 AM EST The following approved medication requests have been transmitted electronically. Requested Prescriptions Signed Prescriptions Disp Refills vitamin b complex (B COMPLETE) tab 90 tablet 1 Sig: Take 1 tablet by mouth once daily. Authorizing Provider: DEE FLORES dextroamphetamine-amphetamine (ADDERALL) 10 mg tablet 30 tablet 0 Sig: Take 1 tablet by mouth once daily for 30 days. Authorizing Provider: DEE FLORES Phentermine HCl (ADIPEX-P) 37.5 mg tablet 30 tablet 2 Sig: Take 1 tablet by mouth once daily for 30 days. BMI 38.28 Authorizing Provider: DEE FLORES APRN.CNP PDMP website checked and validated. All prescriptions have been APPROPRIATELY filled. No suspiciousactivity was identified. 06/08/2023 by Dee Flores CNP. * Telephone Encounter - Zenaida Cheney Ma - 06/08/2023 9:18 AM EST Patient has been identified by name and date of : Yes, Provider Jose Luis Toledo DO Date June 08, 2023 Time 9:18 AM Patient phones for refill(s): Requested Prescriptions Pending Prescriptions Disp Refills vitamin b complex (B COMPLETE) tab 90 tablet 1 Sig: Take 1 tablet by mouth once daily. dextroamphetamine-amphetamine (ADDERALL) 10 mg tablet 30 tablet 0 Sig: Take 1 tablet by mouth once daily for 30 days. Phentermine HCl (ADIPEX-P) 37.5 mg tablet 30 tablet 2 Sig: Take 1 tablet by mouth once daily for 30 days. BMI 38.28 Date of last office visit in primary care: 04/06/2023 Date of next office visit in primary care: 07/06/2023 Please advise. Thank you. Zenaida Cheney Ma. documented in this encounterC[facility]12-01-2023 Miscellaneous Notes* Telephone Encounter - Lilli Talley MA - 03/27/2023 3:06 PM EST Pt called back, and message was given. Lilli Talley MA * Telephone Encounter - Susanna Da Silva OCCA - 03/27/2023 1:38 PM EST Tried to return pt's call. No answer. Had to leave a message to call the office back. * Telephone Encounter - Arin Da Silva MA - 03/27/2023 11:19 AM EST Left message to call back * Telephone Encounter - Vicky Crowley APRN.CNP - 03/26/2023 3:30 PM EST Urine cx demonstrated 10-50 k mixed . No antibiotics at this time. * Telephone Encounter - Preeti Oh - 03/26/2023 3:23 PM EST Patient called in and was asking about culture results. She was wanting to know if there was anything else she needs to do documented in this encounterC[facility] Clinic [facility]11-28-2023 History of Present illness Narrative* Nelida Irving APRN.CNP - 03/24/2023 8:00 AM EST Images from the original note were not included. [facility] ESTABLISHED PATIENT OFFICE VISIT Patient presents with: Kidney Stones HISTORY OF PRESENT ILLNESS Sammy Redd is a 43 year old female who is here for follow up ofrenal stones S/p R ESWL 03/11/23 - Dr Reed ALMONTE 03/23/23 formal reading still pending images reviewed- no stone noted Passed several fragments since the procedure, still experiencing some spams on her right side andinto her pelvis. Review of Systems The remainder of the ROS was reviewed and is negative. LAB Creatinine Date Value Ref Range Status 03/23/2023 0.66 0.58 - 0.96 mg/dL Final No results found for: PSA, PSASC GLUCOSE UA (POCT) (mg/dL) Date Value [...] disorder (just had APPT drawn - in [facility]) PUD (peptic ulcer disease) 2009 treated [...] Topics Alcohol use: Yes Comment: twice a year-socially Drug use: No BP 121/83 Ht 152.4 [...] urine for c/s - treat if positive Nelida Irving APRN.CNP This note was partially created using voice recognition software and is inherently subject to errors including those of syntax and sound-alike substitutions which may escape proofreading. In such instances, original meaning may be extrapolated by contextual derivation. documented in this encounterCleveland Clinic Avon Hospital11-28-2023 NoteHNO ID: [id number] Author: Nelida Irving APRN.CNP Service: ? Author Type: Nurse Practitioner Type: Progress Notes Filed: 03/24/2023 8:29 AM Note Text: [facility] ESTABLISHED PATIENT OFFICE VISIT Patient presents with: Kidney Stones HISTORY OF PRESENT ILLNESS Sammy Redd is a 43 year old female [...] 0.96 mg/dL Final No results found for: PSA, PSASC GLUCOSE UA (POCT) (mg/dL) Date Value [...] disorder (just had APPT drawn - in [facility] - [facility]) PUD (peptic ulcer disease) 2010 treated [...] Hypertension Maternal Grandmother Alzheimer (more content not included)...[facility]11-15-2023 NoteHNO ID: [id number] Author: Ayaka Corey Service: ? Author Type: ? Type: Plan of Care Filed: 03/11/2023 1:32 PM Note Text: PHARMACY BEDSIDE DELIVERY SERVICE Patient Name: Sammy Redd The marked outpatient medications were Filled at: [facility] and delivered to the patient's bedside to [...] your Primary Care Provider. Ayaka Corey PAGER: jere March 11, 2023 1:19 PMSalem Hospital11-15-2023 NoteHNO ID: [id number] Author: Bev Hayes APRN.CRNA Service: Anesthesiology Author Type: Nurse Paperboard Boxes Estimator Type: Anesthesia Procedure Notes Filed: 03/11/2023 10:44 AM Note Text: ANESTHESIOLOGY PROCEDURE NOTE Airway General Information Procedure Start Time/Medication Administration: 03/11/2023 10:30 AM Staffing Anesthesiologist: Carl Mckeon DO DOCTOR NATUROPATHIC: Bev Hayes APRN.DOCTOR NATUROPATHIC Performed by: anesthesiologist Indications and Patient Condition [...] esophageal intubation: no Airway not difficult SIGNATURE: Bve Hayes APRN.DOCTOR NATUROPATHIC PATIENT NAME: Sammy Redd DATE: March 11, 2023 TIME: 10:43 AM CSN: [id number] Hospital11-14-2023 NoteHNO ID: [id number] Author: Patricia Hogan RN Service: ? Author [...] color), Ensure Pre-Surgery (given by ARVIND or risa Rowe), fruit juice without pulp (apple/cranberry), clear tea, [...] directed. Bring copy of Living Will/Power of [employer]. Do not smoke or chew. If you [...] the Surgery Center. UPON ARRIVAL: Access to [facility] is located on [address] [place] [address]. [employer] parking is available for your convenience from [...] a time are permitted in your preoperative room.[facility]11-14-2023 NoteHNO ID: [id number] Author: Hayley Mike APRN.JOI Service: ? Author [...] updated instructions for the morning of your procedure.[facility]11-10-[facility] History of Present illness Narrative* Jose Luis Toledo, - 03/06/2023 7:56 AM EST CC: Sammy Redd is a 43 year old female who presents to the office for follow up. HPI: Recently she was having flank pain and diagnosed with ureterolithiasis. She was seen at [facility] and also referred to urologist. She had an accompanying UTI/cystitis when diagnosed with stone. She was started on Bactrim antibiotic. The lithotripsy surgery is scheduled for Mar [address] Reed. Hypothyroidism, she is due for labs to [...] disorder (just had APPT drawn - in [facility] - [facility]) PUD (peptic ulcer disease) 2010 treated [...] Topics Alcohol use: Yes Comment: twice a year-socially Drug use: No FAMILY HISTORY Problem Relation [...] daily at bedtime. For kidney stones (Patient nottaking: Reported on 03/03/2023) Allergies: ALLERGIES Allergen Reactions [...] All prescriptions have been APPROPRIATELY filled. No suspiciousactivity was identified. 03/06/2023 by Jose Luis Toledo DO To ER if develops chest pain, shortness of breath, or severe worsening of symptoms. Discussed risks, benefits, alternatives, and potential side effects of medications. Patient expressed understanding and agreed with the plan. Jose Luis Toledo DO [address] [place] [address] documented in this encounterCleveland Clinic [facility] Hospital11-03-2023 Miscellaneous Notes* Telephone Encounter - Perlita Cunningham APRN.CNP - 02/27/2023 1:[address] from [place] with Dr. Barahona. R ureteral stone does appear to be back in the Kidney ? Sheis still having intermittent pain, hematuria and frequency. She is going to the lab to get a PTT (hx of a blood disorder when she was ) and will get a urine c+s as well. I sent in Bactrim as well. She is scheduled for R ESWL with Dr. Barahona on 03/11/23 at this time. We will keep this unless PTT isabnormal. Perlita Cunningham APRN.CNP documented in this encounterCleveland Clinic [facility] Hospital10-31-2023 Discharge summary Author David Nikhil [facility] February 24, 2023 11:08pm Note Date/Time February 24, 2023 1 0:42pm [facility] Medical Records Department [address] [place] [address] Emergency Department Summary 02/24/23 MR#: [id number] Acct: [id number] Name: SAMMY REDD Rep #:[id number] : 1980 43 From: David Tejeda DO PCP: Dr. Jose Luis Toledo, DO Status:RE G ER Location: ED HPI HPI - Female History of Present Illness Chief Complaint: Flank Pain Narrative Narrative: 43-year-old female with right flank pain. She has history of ovarian cysts, PCOS, endometriosis. She states that she recently was diagnosed with a kidney stone. Patient does have history of bilateral salpingectomy, hysterectomy. [facility] Medical History Arthritis Asthma Back pain Brain aneurysm Chest pain complex migraine CPAP (continuous positive airway pressure) dependence Empty sella Family history of brain aneurysm Fatigue Fibromyalgia GERD (gastroesophageal reflux disease) High cholesterol High triglycerides History of breast lump History of chronic bronchitis History of fatty infiltration of liver History of gallstones History of IBS History of kidney stones History of loss of consciousness History of PCOS History of PSVT (paroxysmal supraventricular tachycardia) History of UTI Hormone deficiency Hx of echocardiogram Hx of protein S deficiency Hypoglycemia Hypothyroidism IBS (irritable bowel syndrome) Injury of head and neck Intervertebral disc degeneration Limb weakness Mid back pain on left side Migraines Non-smoker CADENCE (obstructive sleep apnea) Protein S deficiency Restless legs Seasonal allergies Stomach ulcer Tachycardia Thyroid disease Thyroid nodule Ulcer Urinary frequency Home Medications lorazepam 0.5 mg tablet 0.5 mg PO DAILY PRN PRN Anxiety 11/23/19 [History Last Taken 09/10/20 21:00] levothyroxine 88 mcg capsule 88 mcg PO MOTUWETHFRSA 08/23/20 [History Last Taken 07/30/21] tizanidine 2 mg tablet 2 mg PO QHS PRN MUSCLE SPASMS 07/09/21 [History Last Taken Unknown] lbdtavdgoc-eqkrawvuanhrw-bcvxdmzt 50 mg-325 mg-40 mg tablet 1 tab PO Q6H PRN pain 02/14/23 [History Last Taken Unknown] fluconazole 150 mg tablet 150 mg PO DAILY 2 doses #2 tabs 02/14/23 [Rx Last Taken Unknown] oxycodone-acetaminophen 5 mg-325 mg tablet (Percocet) 1 tab PO Q6H PRN pain 3 days #12 tabs 02/14/23 [Rx Last Taken Unknown] promethazine 25 mg tablet 25 mg PO TID PRN nausea and vomiting 7 days #21 tabs 02/14/23 [Rx Last Taken Unknown] sulfamethoxazole 800 mg-trimethoprim 160 mg tablet (Bactrim DS) 1 tab PO BID 7 days #14 tabs 02/14/23 [Rx Last Taken Unknown] ondansetron 4 mg disintegrating tablet 4 mg PO Q8H PRN PRN Nausea #10 tabs 02/24/23 [Rx Last Taken Unknown] Allergy/AdvReac Type Severity Reaction Status Date / Time Penicillins Allergy Severe Anaphylaxis Verified 02/24/23 20:17 adhesive Allergy Rash Verified 02/24/23 20:17 Family History Grandmother Hypertension Brother Diabetes Grandfather CVA (cerebral vascular accident) Alcoholism Bleeding disorder DVT (deep venous thrombosis) Father Hypertension Anxiety Arthritis Bowel disease Depression High cholesterol Thyroid disorder Mother Supraventricular tachycardia Anesthesia complication Anxiety Angina pectoris Arthritis Rheumatoid arthritis Bowel disease Breast cancer Depression Myocardial infarction Heart disease High cholesterol Hypertension Kidney disease Thyroid disorder Surgical History H/O bilateral salpingectomy H/O ovarian cystectomy History of appendectomy History of cholecystectomy History of endometrial ablation History of extraction of renal calculus History of total vaginal hysterectomy (TVH) Hx of dilation and curettage S/P oophorectomy [place] teeth extracted Social History Smoking Status: Never smoker alcohol intake: current alcohol intake frequency: holidays/special occasions only details: social substance use type: does not use diet: other caffeine: Yes what type of physical activity do you participate in: walking and weight training frequency: 3-4 times per week seatbelt use: always do you feel safe at home: Yes EXAM Physical Exam Const Vital Signs: 02/24/23 20:15 Temperature 97.6 F L Temperature Source Temporal Pulse Rate 98 Respiratory Rate 16 Blood Pressure 151/93 H Blood Pressure Mean 112 Pulse Ox 97 Oxygen Delivery Method Room Air MDM MDM MDM Narrative Medical decision making narrative: Patient presenting with right flank pain. A history of kidney stones. Differential includes kidney stone, UTI, pyelonephritis,. Ectopic . She does not have any ovaries to have ovarian torsion or cyst. CBC will be obtained to assess white blood cell count, hemoglobin, platelets. BMP to assessrenal function and electrolytes. hCG to rule out ectopic . Urinalysisto rule out UTI or occult blood. CBC shows slight leukocytosis 11.4. Hemoglobin stable 13.5. Rest of her lab work-up unremarkable. hCG negative. Urinalysis shows occult blood but no evidence of infection. CT of the abdomen pelvis was obtained and shows no obstruction or evidence of pyelonephritis. Findings were discussed with the patient. She will continue to follow-up with urology outpatient. She still has an appointment with Dr. Paola Arceo next week as well. Return precautions discussed. Impression: 1. Right flank pain 2. Hematuria Lab Data Attestation: I reviewed the patient's lab results. Labs: Laboratory Results - last 24 hr 02/24/23 02/24/23 20:50 20:55 WBC 11.4 H RBC 4.52 Hgb 13.5 Hct 41.9 MCV 92.7 MCH 29.9 MCHC 32.2 RDW Std Deviation 45.8 H RDW Coeff of Jeff 13.3 Plt Count 284 MPV 10.1 Immature Gran % (Auto) 0.300 Neut % (Auto) 56.3 Lymph % (Auto) 35.0 Graves % (Auto) 4.4 Eos % (Auto) 3.3 Baso % (Auto) 0.7 Absolute Neuts (auto) 6.4 Absolute Lymphs (auto) 3.97 Nucleated RBC % 0 Sodium 144 Potassium 3.8 Chloride 112 H Carbon Dioxide 30.0 Anion Gap 2 L BUN 20 H Creatinine 0.91 Estim Creat Clear Calc 57.26 Est GFR (MDRD) Af Amer 87 Est GFR (MDRD) Non-Af 72 BUN/Creatinine Ratio 22.0 H Glucose 102 Calcium 8.7 Serum , Qual NEGATIVE Urine Color Yellow Urine Clarity Cloudy Urine pH 6.5 Ur Specific Edwards 1.015 Urine Protein 30 H Urine Glucose (UA) Normal Urine Ketones Negative Urine Occult Blood 250 H Urine Nitrite Negative Urine Bilirubin Negative Urine Urobilinogen Normal Ur Leukocyte Esterase 25 H Urine RBC > 100 SEEN Urine WBC 0-5 SEEN Ur Squamous Epith Cells 0-5 SEEN Urine Bacteria 0 SEEN Urine Mucus 0 SEEN Radiography Diagnostic Testing: Clinical Impression(s) from Imaging Studies Abdomen/Pelvis CT 02/24/23 21:20 IMPRESSION: Right renal stone. No hydronephrosis. Electronically Signed: Major Dey MD at 22:14 EDT Reading Location ID and State: [facility] / [place] , Service support , Discharge Plan Triage Chief Complaint: Flank Pain ED Provider: David Tejeda Dx/Rx/DC Orders Instructions: ED Kidney Stone, Passed Prescriptions: New ondansetron 4 mg tablet,disintegrating 4 mg PO Q8H PRN PRN (Reason: Nausea) Qty: 10 0RF No Action levothyroxine 88 mcg capsule 88 mcg PO MOTUWETHFRSA Rx Instructions: skip thursday tizanidine 2 mg tablet 2 mg PO QHS PRN (Reason: MUSCLE SPASMS) lorazepam 0.5 MG tablet 0.5 mg PO DAILY PRN PRN (Reason: Anxiety) cznxzijvpl-kvzecmzjqnnwk-fudt 50-325-40 mg tablet 1 tab PO Q6H PRN (Reason: pain) Patient Comments: TAKE 1 TABLET BY MOUTH EVERY 6 HOURS NEEDED FOR HEADACHE FOR UP TO 30 DAYS. promethazine 25 mg tablet 25 mg PO TID PRN (Reason: nausea and vomiting) 7 Days Qty: 21 0RF sulfamethoxazole-trimethoprim [Bactrim DS] 800-160 mg tablet 1 tab PO BID 7 Days Qty: 14 0RF oxycodone-acetaminophen [Percocet] 5-325 mg tablet 1 tab PO Q6H PRN (Reason: pain) 3 Days Qty: 12 0RF fluconazole 150 mg tablet 150 mg PO DAILY Qty: 2 0RF Rx Instructions: Take 1 pill by mouth at start of antibiotics and 1 pill by mouth once antibiotics are finished Primary Care Provider: Jose Luis Toledo Referrals: Katiuska Salmon MD [Med Staff - Active Staff] - 3-5 Days Jose Luis Toledo DO [Primary Care Provider] - Disposition Disposition: Home, Self Care What to do if you have Problems For any increased pain, shortness of breath, bleeding, nausea or vomiting, chestpain, or any unexpected problems, contact your Primary Care Provider. Call [facility] ([phone]) or report to the closest Emergency Room. Call 911 if necessary. 02/24/232307 <Electronically signed by David Tejeda DO> Cosigner Signature (if applicable): CC: Dr. Jose Luis Toledo DO ~ Signed [facility] Work Phone: [phone] 460-940510-26-2023 Miscellaneous Notes* Telephone Encounter - Perlita Cunningham APRN.CNP - 02/19/2023 10:31 AM EDT The following approved medication requests have been transmitted electronically. Requested Prescriptions Signed Prescriptions Disp Refills tamsulosin (FLOMAX) 0.4 mg 7 capsule 1 Sig: Take 1 capsule by mouth daily at bedtime. For kidney stones Authorizing Provider: PERLITA CUNNINGHAM APRN.CNP * Telephone Encounter - Susanna Da Silva OCCA - 02/19/2023 10:27 AM EDT Patient is having intermittent pain and it is tolerate able and was asking for a refill on her flomax. MAGDIEL Sullivan documented in this encounterCleveland [facility]10-25-2023 Miscellaneous Notes* Telephone Encounter - Perlita Cunningham APRN.CNP - 02/18/2023 3:22 PM EDT Tried calling pt to review KUB results- no answer. KUB still showing the ureteral stone. She does have an appt with Vicky next week, but if she was in a lot of pain I was going to discuss surgical options. Chad, Perlita Cunningham APRN.CNP documented in this encounterCleveland Clinic Avon Hospital10-23-2023 History of Present illness Narrative* Rajani Mcqueen RDMS - 02/16/2023 9:15 AM EDT Radiology Service Progress Note PATIENT NAME: Sammy Redd DATE OF SERVICE: February 16, 2023 TIME: 9:25 AM PATIENT IDENTITY VERIFICATION COMPLETED USING TWO (2) IDENTIFIERS: Name and Date of confirmedby patient verbally. FALL SCREENING: Has the patient had 2 falls in the last year or 1 fall with injury or currently using an Ambulatory Assistive Device (Walker, Cane, Wheelchair, Crutches, etc.)? No PATIENT GENDER DATA: Female. status: : No status: NO. PATIENT RELEVANT IMPLANT DATA REVIEWED: Not Applicable RADIOLOGY DEPARTMENT: Ultrasound PERIPHERAL IV DATA: Not applicable SIGNED BY: Rajani Mcqueen RDMS RVT February 16, 2023 9:25 AM documented in this encounterCleveland Clinic Avon Hospital10-19-2023 History of Present illness Narrative* Alfredo Ortega APRN.CNP - 02/12/2023 10:54 AM EDT Nontoxic-appearing female presents urgent care requesting pain [...] for further evaluation care. Alfredo Ortega APRN.CNP documented in this encounterCleveland Clinic Avon Hospital10-19-2023 Miscellaneous Notes* Telephone Encounter - Gideon Gonzalez MA - 02/12/2023 8:45 AM EDT Spoke with pt message released * Telephone Encounter - Vicky Crowley APRN.CNP - 02/12/2023 8:25 AM EDT Urine cx results contaminated. Stop flomax, generally not a symptom of flomax. May be due to stone lower in ureter. * Telephone Encounter - Gideon Gonzalez MA - 02/11/2023 2:07 PM EDT Pt called in asking for urine culter results Pt also states she cannot hold urine since taking flowmax pt asking is this normal Please advise Gideon Gonzalez MA documented in this encounterCleveland Clinic Avon Hospital10-16-2023 NoteHNO ID: [id number] Author: Vicky Crowley APRN.JOI Service: ? Author Type: Nurse Practitioner Type: Progress Notes Filed: 02/09/2023 11:45 AM Note Text: [facility] UROLOGY NEW CONSULT HISTORY AND PHYSICAL EXAMINATION PATIENT: Sammyethan Redd (43 year old) REFERRING PROVIDER: 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 PCP: Jose Luis Toledo, Consultation requested by 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 for an opinion regarding Sammy Redd. My final recommendations will be communicated [...] (2015), Dr. Colin (-2008), previous urologist in [facility] Hx of kidney stones: yes, Family hx of kidney stones/treatment: hx of stone treatment in 2009 requiring laser lithotripsy. 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 Protein S deficiency. Personal/family hx of kidney cancer, bladder cancer, or prostate cancer: denies Previous surgery on kidneys, bladder, urethra, or prostate: lithotripsy x 8 in the past, last in 2008. Hx of smoking: denies Environmental/occupational exposures: Sammy is a 43 year old female with [...] kidney stones tiZANidine (ZANAFL (more content not included)...[facility] 02-09-2023 History of Present illness Narrative* DenicefarazJorge bergbridgett Bailey, NETWORKING SPECIALIST.PRINTING EQUIPMENT MECHANIC APPRENTICE - 02/09/2023 11:00 AM EDT [facility] UROLOGY NEW CONSULT HISTORY AND PHYSICAL EXAMINATION PATIENT: Sammy Redd (43 year old) REFERRING PROVIDER: 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 PCP: Jose Luis Toledo DO Consultation requested by 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 for an opinion regarding Sammy Redd. My final recommendations will be communicated back to the requesting physician by way of shared Medical record orletter to requesting physician via US mail. SUMMARY: [...] stone passage (70%) and discussed stone management optionsincluding continuing trail passage of stone w/ flomax [...] (2015), Dr. Colin (-2008), previous urologist in [facility] Hx of kidney stones: yes, Family hx of kidney stones/treatment: hx of stone treatment in 2008 requiring laser lithotripsy. 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 Protein S deficiency. Personal/family hx of kidney cancer, bladder cancer, or prostate cancer: denies Previous surgery on kidneys, bladder, urethra, or prostate: lithotripsy x 8 in the past, last in 2008. Hx of smoking: denies Environmental/occupational exposures: Sammy is a 43 year old female with [...] Topics Alcohol use: Yes Comment: twice a year-socially Drug use: No PHYSICAL EXAMINATION: Pulse 68 [...] Protein: negative pH: 6.0 Blood: moderate Specific Edwards: 1.015 Ketones: negative Bilirubin: negative Glucose: negative Laboratory: Creatinine Date Value Ref Range Status 05/19/2022 0.68 0.58 - 0.96 mg/dL Final 01/20/2022 0.58 0.58 - 0.96 mg/dL Final 12/09/2021 0.69 0.58 - 0.96 mg/dL Final 08/12/2021 0.65 0.58 - 0.96 mg/dL Final I have reviewed the problem list, family history, and social history documented by my ancillary staff. Vicky Crowley APRN.CNP documented in this encounterCleveland Clinic Avon Hospital10-12-2023 NoteHNO ID: [id number] Author: Elpidio Márquez CT Service: Radiology Author Type: Technologist Type: Progress Notes Filed: 02/05/2023 8:52 AM Note Text: Radiology Service Progress Note PATIENT NAME: Sammy Redd DATE OF SERVICE: February 05, 2023 [...] PERIPHERAL IV DATA: Not applicable SIGNED BY: PRITI Pisano February 05, 2023 8:52 [facility] History of Present illness Narrative* Elpidio Márquez CT - 02/05/2023 9:00 AM EDT Radiology Service Progress Note PATIENT NAME: Sammy Redd DATE OF SERVICE: February 05, 2023 TIME: 8:52 AM PATIENT IDENTITY VERIFICATION COMPLETED USING TWO (2) IDENTIFIERS: Name and Date of confirmedby patient verbally. FALL SCREENING: Has the patient had 2 falls in the last year or 1 fall with injury or currently using an Ambulatory Assistive Device (Walker, Cane, Wheelchair, Crutches, etc.)? No PATIENT GENDER DATA: Female. status: : No status: NO. PATIENT RELEVANT IMPLANT DATA REVIEWED: Not Applicable RADIOLOGY DEPARTMENT: CT; Exam(s) Completed: Abdomen/Pelvis PERIPHERAL IV DATA: Not applicable SIGNED BY: PRITI Pisano February 05, 2023 8:52 AM documented in this encounterCleveland Clinic Avon Hospital10-09-2023 History of Present illness Narrative* 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 APRN.PRINTING EQUIPMENT MECHANIC APPRENTICE - 02/02/2023 2:40 PM EDT Chief Complaint Patient presents with: Hematuria: On and off sinvce last and rt side hurts , nausea with pain HPI Sammy Redd is a 43 year old female who presents here today for Above Complaints.. Sammy is an established patient of Dr. Toledo, [...] kidney stone. Pt reports she is pretty sureshe never did pass this and symptoms just [...] Sprays in the nose once daily. In themorning No current facility-administered medications on file prior to visit. Social History Social History Tobacco Use Smoking status: Never Smokeless tobacco: Never Vaping Use Vaping Use: Never used Substance Use Topics Alcohol use: Yes Comment: twice a year-socially Drug use: No REVIEW OF SYSTEMS: as [...] All prescriptions have been APPROPRIATELY filled. No suspiciousactivity was identified. 02/02/2023 by 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 APRN.PRINTING EQUIPMENT MECHANIC APPRENTICE 4. Flank pain - ICD9: 789.09, ICD10: R10.9 See plan above. - CT FLANK WO IVCON - CONSULT TO UROLOGY RTO as needed. Prescription instructions reviewed with patient as applicable. Potential red flag symptoms discussed with the patient. Reviewed appropriate action plan to take if red flag symptoms occur. Patient agreeable to treatment plan. Brandi Rasmussen APRN.CNP [address] [place] [address] documented in this encounterCleveland Clinic Avon Hospital10-05-2023 Miscellaneous Notes* Telephone Encounter - 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 APRN.CNP - 01/29/2023 3:22 PM EDT PDMP website checked and validated. All prescriptions have been APPROPRIATELY filled. No suspiciousactivity was identified. 01/29/2023 by 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 APRN.CNP The following approved medication requests have been transmitted electronically. Requested Prescriptions Signed Prescriptions Disp Refills Phentermine HCl (ADIPEX-P) 37.5 mg tablet 30 tablet 2 Sig: Take 1 tablet by mouth once daily for 30 days. BMI 36.91 Authorizing Provider: BRANDI QUINTEROS APRN.CNP * Telephone Encounter - Carol Elder LPN - 01/29/2023 10:28 AM EDT Gabriella--12/02/22 Nov--03/03/23 Last refill--12/31/22 30 WITH 2 REFILLS Last labs--05/19/22 documented in this encounterCleveland Clinic [facility] Hospital09-05-2023 Miscellaneous Notes* Telephone Encounter - Dayami Fang LPN - 12/30/2022 10:19 AM EDT Patient has been identified by name and [...] you. Dayami Fang LPN documented in this encounterCleveland Clinic [facility] Hospital09-05-2023 Miscellaneous Notes* Telephone Encounter - Bev Lu MA - 12/30/2022 8:49 AM EDT Patient has been identified by name and [...] 03/03/23 Bev Lu MA documented in this encounterCleveland Clinic [facility] Hospital08-08-2023 History of Present illness Narrative* Jose Luis Toledo DO - 12/02/2022 4:02 PM EDT CC: Sammy Redd is a 42 year old female [...] Topics Alcohol use: Yes Comment: twice a year-socially Drug use: No FAMILY HISTORY Problem Relation [...] Sprays in the nose once daily. In themorning LORazepam (ATIVAN) 0.5 mg Take 1 tablet [...] All prescriptions have been APPROPRIATELY filled. No suspiciousactivity was identified. 12/03/2022 by Jose Luis Toledo DO To ER if develops chest pain, shortness of breath, or severe worsening of symptoms. Discussed risks, benefits, alternatives, and potential side effects of medications. Patient expressed understanding and agreed with the plan. Jose Luis Toledo DO [address] [place] [address] documented in this encounterCleveland Clinic Avon Hospital06-30-2023 Miscellaneous Notes* Telephone Encounter - Reed Myers MD - 10/24/2022 10:34 AM EDT OK to refill as ordered Reed Myers MD * Telephone Encounter - Zenaida Cheney Ma - 10/24/2022 10:20 AM EDT Last office visit: F/u scheduled: 11/10/22 Last refilled on: Adipex #30 on 09/30/22 Zenaida Cheney Ma documented in this encounterCleveland Clinic Avon Hospital06-19-2023 Miscellaneous Notes* Telephone Encounter - Barbara Ortega - 10/13/2022 10:20 AM EDT Patients appointment was rescheduled from 10/30/22 to 11/10/22 will need medications before this date. This is the 3 month appt . Pt will call a few days prior to appt for refill. documented in this encounterCleveland Clinic [facility] Hospital05-04-2023 Miscellaneous Notes* Telephone Encounter - Dee Flores APRN.PRINTING EQUIPMENT MECHANIC APPRENTICE - 08/28/2022 4:36 PM EDT The following approved medication requests have been transmitted electronically. Requested Prescriptions Signed Prescriptions Disp Refills dextroamphetamine-amphetamine (ADDERALL) 5 mg tablet 30 tablet 0 Sig: Take 1 tablet by mouth once daily as needed for up to 30 days. In the afternoon, in addition to am 10mg dose. Authorizing Provider: DEE FLORES Phentermine HCl (ADIPEX-P) 37.5 mg tablet 30 tablet 0 Sig: Take 1 tablet by mouth once daily for 30 days. BMI 38.32 Authorizing Provider: DEE FLORES APRN.CNP PDMP website checked and validated. All prescriptions have been APPROPRIATELY filled. No suspiciousactivity was identified. 08/28/2022 by Dee Flores CNP. * Telephone Encounter - Chelsea Sanchez LPN - 08/28/2022 10:49 AM EDT Patient phones requesting refills as follows: Requested [...] once daily for 30 days. BMI 38.32 GABRIELLA-08/14/22 Labs-05/19/22 NOV-10/30/22 Please review and advise. Chelsea Sanchez LPN documented in this encounterCleveland Clinic Avon Hospital04-20-2023 Nurse Note* Giana Alicea - 08/14/2022 4:32 PM EDT Patient given albuterol nebulizer treatment in office and tolerated well. Giana Alicea MA documented in this encounterCleveland Clinic Avon Hospital04-20-2023 History of Present illness Narrative* Dee Flores APRN.CNP - 08/14/2022 11:18 AM EDT Chief Complaint Patient presents with: Follow Up: EC visit 08/07- viral bronchitis- still has cough & SOB. Completed prednisone yesterday. HPI Sammy Redd is a 42 year old female who presents here today for Above Complaints.. Per [facility] visit with Ry Chong CNP on 08/07/2022: HPI Sammy Redd is a 42 year old female [...] acute radiographic abnormality. Dictated by : MD Ry GUO APRN.PRINTING EQUIPMENT MECHANIC APPRENTICE Today: Doesn't necessarily feel sick but breathing [...] Sprays in the nose once daily. In themorning predniSONE (DELTASONE) 10 mg tablet Take 4 [...] Topics Alcohol use: Yes Comment: twice a year-socially Drug use: No Review of Symptoms REVIEW [...] Vaginal lesion - ICD9: 623.8, ICD10: N89.8 Scotrun-size to labia minora, non fluctuant. Will utilize doxycycline for this lesion as well as possible bronchitis as mentioned above. Dee Flores APRN.JOI PDMP website checked and validated. All prescriptions have been APPROPRIATELY filled. No suspiciousactivity was identified. 08/14/2022 by Dee Flores CNP. documented in this encounterCleveland Clinic Av[facility] Hospital04-14-2023 Miscellaneous Notes* Telephone Encounter - Marti Quiles Ma - 08/08/2022 7:48 AM EDT Patient was left vm and already seen results on mychart Marti Quiles Ma * Telephone Encounter - Nafisa Nicole APRN.PRINTING EQUIPMENT MECHANIC APPRENTICE - 08/08/2022 7:11 AM EDT Negative for COVID and flu please notify documented in this encounterCleveland Clinic Avon Hospital04-13-2023 History of Present illness Narrative* Ry Chong APRN.PRINTING EQUIPMENT MECHANIC APPRENTICE - 08/07/2022 5:09 PM EDT Subjective HPI HPI Sammy Redd is a 42 year old female [...] Sprays in the nose once daily. In themorning^Disp: 3 Bottle^Rfl: 1 FAMILY HISTORY Problem Relation [...] Topics Alcohol use: Yes Comment: twice a year-socially Drug use: No Review of Systems Constitutional: [...] acute radiographic abnormality. Dictated by : MD Ry GUO APRN.JOI documented in this encounterCleveland Clinic Avon Hospital04-06-2023 Instructions* Patient Instructions* Dee Flores APRN.JOI - 07/31/2022 10:14 AM EDT Alternate hot [...] diet ideas. Super B-complex documented in this encounterCleveland Clinic Avon Hospital04-06-2023 History of Present illness Narrative* Dee Flores APRN.CNP - 07/31/2022 9:29 AM EDT Chief Complaint Patient presents with: Medication Follow-up Low Back Pain: Possible injury x 1 week HPI Sammy Redd is a 42 year old female who presents here today for Above Complaints.. Starting weight: 194 pounds Month #1 (today): 196 pounds, BMI 38.32 Today: Is tolerating Adipex well, does have dry mouth but does help her to drink more water-but definitelyneeds to drink more. Does have some constipation. [...] Was reaching for something in her closet andfell because she was reaching too far. Is hurting to both sides Considering getting into the chiropractor. Muscle relaxer is helpful- can only take at night because gets very [...] Sprays in the nose once daily. In themorning gabapentin (NEURONTIN) 100 mg capsule Take 1 [...] Topics Alcohol use: Yes Comment: twice a year-socially Drug use: No Review of Symptoms REVIEW OF SYSTEMS See HPI, otherwise negative EXAM: BP 116/78 (BP Site: Left Arm, BP Position: Sitting, BP Cuff Size: Regular Adult) Pulse 70 Resp 16 Wt 89 kg (196 lb 3.2 oz) LMP 05/30/2019 (Exact Date) SpO2 95% BMI 38.32 kg/m General Appearance: Well appearing, alert, in no acute distress, well-hydrated, well nourished. andObese. Back:good flexion and extension, good range of [...] improvement-patient will call if this is needed. Dee Flores APRN.PRINTING EQUIPMENT MECHANIC APPRENTICE documented in this encounterCleveland Clinic Avon Hospital03-06-2023 History of Present illness Narrative* Jose Luis Toledo, - 06/30/2022 9:29 AM EST CC: Sammy Redd is a 42 year old female [...] Topics Alcohol use: Yes Comment: twice a year-socially Drug use: No FAMILY HISTORY Problem Relation [...] Sprays in the nose once daily. In themorning^Disp: 3 Bottle^Rfl: 1 vitamin b complex (B [...] All prescriptions have been APPROPRIATELY filled. No suspiciousactivity was identified. 06/30/2022 by Jose Luis Toledo DO To ER if develops chest pain, shortness of breath, or severe worsening of symptoms. Discussed risks, benefits, alternatives, and potential side effects of medications. Patient expressed understanding and agreed with the plan. Jose Luis Toledo DO [address] [place] [address] documented in this encounterCleveland Clinic Avon Hospital02-22-2023 Miscellaneous Notes* Telephone Encounter - Dee Flores APRN.CNP - 06/18/2022 2:50 PM EST The following approved medication requests have been transmitted electronically. Requested Prescriptions Signed Prescriptions Disp Refills dextroamphetamine-amphetamine (ADDERALL) 10 mg tablet 30 tablet 0 Sig: Take 1 tablet by mouth once daily for 30 days. Authorizing Provider: DEE FLORES dextroamphetamine-amphetamine (ADDERALL) 5 mg tablet 30 tablet 0 Sig: Take 1 tablet by mouth once daily as needed for up to 30 days. In the afternoon, in addition to am 10mg dose. Authorizing Provider: DEE FLORES APRN.CNP PDMP website checked and validated. All prescriptions have been APPROPRIATELY filled. No suspiciousactivity was identified. 06/18/2022 by Dee Flores CNP. * Telephone Encounter - Bertha Rivera LPN - 06/17/2022 12:55 PM EST Patient has been identified by name and [...] you. Bertha Rivera LPN documented in this encounterCleveland Clinic Avon Hospital02-21-2023 Miscellaneous Notes* Telephone Encounter - Bertha Rivera LPN - 06/17/2022 12:53 PM EST Patient has been identified by name and [...] you. Bertha Rivera LPN documented in this encounterCleveland Clinic Avon Hospital01-23-2023 Miscellaneous Notes* Telephone Encounter - Mary Bates LPN - 05/19/2022 12:56 PM EST Unable to close encounter. Message states there is an incomplete note by provider. aMry Bates LPN * Telephone Encounter - Mary Bates LPN - 05/19/2022 12:55 PM EST Pt notified of results and provider message. Mary Bates LPN * Telephone Encounter - Jose Luis Toledo DO - 05/19/2022 12:23 PM EST Please inform patient that her CT flank results show IMPRESSION: 4 mm nonobstructing RIGHT intrarenal calculus, unchanged. This means that the stone is still in the kidney and is unchanged, not causing any current concerns. Her lumbar spine xray shows mild osteoarthritis changes and her sacral xray shows arthritis changesin her sacroiliac joints where her tailbone meets her hips as well. This is likely what causes her discomfort. Can follow up with pain mgmt to consider injections if pain continues. Jose Luis Toledo DO documented in this encounterCleveland Clinic Avon Hospital01-23-2023 History and physical note * Nelida Jimenez RT(R) - 05/19/2022 11:00 AM EST Radiology Service Progress Note PATIENT NAME: Sammy Redd DATE OF SERVICE: May 19, 2022 TIME: 9:32 AM PATIENT IDENTITY VERIFICATION COMPLETED USING TWO (2) IDENTIFIERS: Name and Date of confirmedby patient verbally. FALL SCREENING: Has the patient [...] 19, 2022 9:32 AM documented in this encounterCleveland Clinic Avon Hospital01-23-2023 History of Present illness Narrative* Nelida Jimenez RT(R) - 05/19/2022 10:50 AM EST Radiology Service Progress Note PATIENT NAME: Sammy Redd DATE OF SERVICE: May 19, 2022 TIME: 9:28 AM PATIENT IDENTITY VERIFICATION COMPLETED USING TWO (2) IDENTIFIERS: Name and Date of confirmedby patient verbally. FALL SCREENING: Has the patient [...] 19, 2022 9:28 AM documented in this encounterCleveland Clinic Avon Hospital01-23-2023 History of Present illness Narrative* Rajani Mcqueen RDMS - 05/19/2022 10:00 AM EST Radiology Service Progress Note PATIENT NAME: Sammy Redd DATE OF SERVICE: May 19, 2022 TIME: 9:49 AM PATIENT IDENTITY VERIFICATION COMPLETED USING TWO (2) IDENTIFIERS: Name and Date of confirmedby patient verbally. FALL SCREENING: Has the patient had 2 falls in the last year or 1 fall with injury or currently using an Ambulatory Assistive Device (Walker, Cane, Wheelchair, Crutches, etc.)? No PATIENT GENDER DATA: Female. status: : No status: NO. PATIENT RELEVANT IMPLANT DATA REVIEWED: Not Applicable RADIOLOGY DEPARTMENT: Ultrasound PERIPHERAL IV DATA: Not applicable SIGNED BY: Rajani Mcqueen RDMS [facility] May 19, 2022 9:49 AM documented in this encounterCleveland Clinic Avon Hospital01-23-2023 Miscellaneous Notes* Telephone Encounter - 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 APRN.CNP - 05/19/2022 9:13 AM EST Done in other TE. Thank you, 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 APRN.CNP * Telephone Encounter - Mary Bates LPN - 05/19/2022 9:03 AM EST Labs need re-ordered. Mary Bates LPN documented in this encounterCleveland Clinic [facility] Hospital01-23-2023 Miscellaneous Notes* Telephone Encounter - 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 APRN.CNP - 05/19/2022 9:09 AM EST New labs are placed. 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 APRN.CNP documented in this encounterCleveland Clinic Avon Hospital01-23-2023 History of Present illness Narrative* Evens Stacy RT(R) - 05/19/2022 8:20 AM EST Radiology Service Progress Note PATIENT NAME: Sammy Redd DATE OF SERVICE: May 19, 2022 TIME: 11:56 AM PATIENT IDENTITY VERIFICATION COMPLETED USING TWO (2) IDENTIFIERS: Name and Date of confirmedby patient verbally. FALL SCREENING: Has the patient [...] RT Jone(R) May 19, 2022 11:56 AM documented in this encounterCleveland Clinic Avon Hospital01-16-2023 History of Present illness Narrative* Jose Luis Toledo DO - 05/12/2022 10:29 AM EST CC: Sammy Redd is a 42 year old female who presents to the office for follow up HPI: Seen in office on 02/05/2022, at that time Overall she is feeling okay, she is day 9 post op from bilateral oophorectomy for ovarian cyst/masses by Dr[facility] Xi Camacho at [facility]. She had laparoscopic vaginal assisted surgery. Struggling [...] Topics Alcohol use: Yes Comment: twice a year-socially Drug use: No FAMILY HISTORY Problem Relation [...] Sprays in the nose once daily. In themorning^Disp: 3 Bottle^Rfl: 1 Allergies: ALLERGIES Allergen Reactions [...] also be related to previous covid 19 infectionand anesthesia for surgeries. - US THYROID/PARATHYROID - [...] ICD9: 625.8, ICD10: N94.9 - f/u with CLINICAL BUSINESS ANALYST whom performed hysterectomy and oophorectomy recently Jose Luis Toledo DO PDMP website checked and validated. All prescriptions have been APPROPRIATELY filled. No suspiciousactivity was identified. 05/12/2022 by Jose Luis Toledo DO To ER if develops chest pain, shortness of breath, or severe worsening of symptoms. Discussed risks, benefits, alternatives, and potential side effects of medications. Patient expressed understanding and agreed with the plan. Jose Luis Toledo DO [address] [place] [address] documented in this encounterCleveland Clinic Avon Hospital11-07-2022 History of Present illness Narrative* Evens Stacy RT(R) - 03/03/2022 10:00 AM EST Radiology Service Progress Note DATE OF SERVICE: [...] creatinine assay has traceable calibration to isotope dilution- mass spectrometry. Refer to KDIGO guidelines for clinical interpretation. In patients with unstable renal function, e.g. those with acute kidney injury, the eGFRmay not accurately reflect actual GFR. eGFR- Date Value Ref Range Status 01/10/2021 >60 Final P.O.C.T. RESULTS: POC done: Yes, See Lab Tab March 03, 2022 TREATMENT: N/A PERIPHERAL IV DATA: Ambulatory: A peripheral IV was started in the Right hand with a Angio cath: 22gauge. RADIOLOGY DEPARTMENT: CT; Exam(s) Completed: Abdomen/Pelvis SIGNATURE: RT Jone(R) PATIENT NAME: Sammy Redd DATE: March 03, 2022 TIME: 12:47 PM documented in this encounterCleveland [facility]11-[facility] History of Present illness Narrative* Dee Flores APRN.PRINTING EQUIPMENT MECHANIC APPRENTICE - 02/27/2022 12:02 PM EDT Chief Complaint Patient presents with: Follow Up: Surgery on 01/27. Removal of both ovaries. Stabbing pain lower back and lower abdomen since surgery. Possible blood in stool. HPI Sammy Redd is a 42 year old female [...] if moving certain ways is a shooting stabbingpain. Pain is mostly controlled with Tylenol and ibuprofen. Possible blood in her stool. Stool has been a nut feeder gonzalez color since her surgery. Past medical [...] Sprays in the nose once daily. In themorning Current Facility-Administered Medications on File Prior to Visit Medication cosyntropin 0.25 mg injection (CORTROSYN) Social History Social History Tobacco Use Smoking status: Never Smokeless tobacco: Never Vaping Use Vaping Use: Never used Substance Use Topics Alcohol use: Yes Comment: twice a year-socially Drug use: No Review of Symptoms REVIEW [...] MICROSCOPIC, REFLEX CULTURE - OCCULT BLD EXAM-DIAG Dee Flores APRN.PRINTING EQUIPMENT MECHANIC APPRENTICE documented in this encounterJessica Ville 20120-28-2022 Miscellaneous Notes* Telephone Encounter - Giana Perdue Ma - 02/21/2022 2:51 PM EDT Please see TE 02/21 Giana Perdue Ma documented in this encounterCleveland [facility]10-12-2022 History of Present illness Narrative* Jose Luis Toledo, - 02/05/2022 3:52 PM EDT CC: Sammy Redd is a 42 year old female who presents to the office for follow up HPI: Overall she is feeling okay, she is day 9 post op from bilateral oophorectomy for ovarian cyst/masses by Dr. Xi Camacho at [facility]. She had laparoscopic vaginal assisted surgery. Struggling [...] Sprays in the nose once daily. In themorning Current Facility-Administered Medications Medication Dose Route Frequency [...] Topics Alcohol use: Yes Comment: twice a year-socially Drug use: No ROS: See HPI PE: BP 126/80 Pulse 82 Resp 16 Wt 192 lb (87.1kg) LMP 05/30/2019 Gen: A&OX3, NAD, non-toxic appearing HEENT: PERRLA, EOMs intact b/l, nares without drainage, pharynx without erythema, exudate, lesions,or drainage. Uvula midline. Neck: No LAD, no thyromegaly, no meningismus. CV: RRR, no murmur Lungs: CTA b/l, no wheezing Skin: see below Incision areas from laparoscopic ports are irritated appearing without drainage or redness. Paraspinal muscle tension lumbar spine without spinal TTP ASSESSMENT/PLAN: 1. Premature menopause - ICD9: 256.31, ICD10: E28.319 (primary diagnosis) - follow up with CLINICAL BUSINESS ANALYST, she is s/p bilateral oophorectomy at this time. May want to at least considersupplements 2. Surgical menopause - ICD9: 627.4, ICD10: [...] See patient instructions. Jose Luis Toledo DO [address] [place] [address] documented in this encounterCleveland Clinic [facility]10-03-2022 History of Present illness Narrative* Shama Bryan RN - 01/27/2022 4:26 PM EDT Pt discharged via wheelchair with belongings, paperwork, and meds in hand. No concerns noted * Shama Bryan RN - 01/27/2022 4:09 PM EDT Pt nauseated with zofran given. Pt ambulated to bathroom with minimal assist. * Shaam Bryan RN - 01/27/2022 3:57 PM EDT Discharge instructions given to pt/pt mom. Both acknowledge follow up, meds, and home going instructions. Meds to beds at documented in this encounterSUMMA Work Phone: [phone]) 666-287010-03-2022 Hospital Discharge instructions* Discharge Instructions* Inge Garcia DO - 01/27/2022 1:49 PM EDT Please follow your post operative care instructions given to you by your Check Writer Salesperson Oncologist's office at your pre operative visit. Please call the office with questions or concerns and be sure to follow up at your scheduled post operative visit. documented in this encounterSUMMA Work Phone: 1(845) 396-283009-27-2022 History of Present illness Narrative* Shobha Perez APRN.PRINTING EQUIPMENT MECHANIC APPRENTICE - 01/21/2022 10:18 AM EDT Chief Complaint Patient presents with: Telemedicine Patient [...] agrees to the visit: Yes Patient Location: [facility] Sammy Redd is a 42 year old female who is contacted today for a virtual visit This is an established patient of Dr. Jose Luis Toledo DO Reports: Pt presents today with + covid test results. She started with not feeling well on Thursday or Thursday. Was seen on last week w/ hair loss and body aches. Went to see Surgeon yesterday at [facility] to schedule surgery to have [...] Sprays in the nose once daily. In themorning Current Facility-Administered Medications on File Prior to Visit Medication cosyntropin 0.25 mg injection (CORTROSYN) Social History Social History Tobacco Use Smoking status: Never Smokeless tobacco: Never Vaping Use Vaping Use: Never used Substance Use Topics Alcohol use: Yes Comment: twice a year-socially Drug use: No EXAM: [facility] 05/30/2019 (Exact Date) Limited exam as visit [...] improvement. Shobha Perez APRN.CNP documented in this encounterCleveland Clinic Avon Hospital09-22-2022 Instructions* Patient Instructions* Dee Flores APRN.CNP - 01/16/2022 12:07 PM EDT Hold your Biotin for 3 days prior to getting your labs drawn. Use your lorazepam as needed for your situational anxiety. Get some Vitamin D3 5000 unit gummies Let me know after you see the surgeon how things went and what the plan is documented in this encounterCleveland Clinic Avon Hospital09-22-2022 History of Present illness Narrative* Dee Flores APRN.CNP - 01/16/2022 11:32 AM EDT Chief Complaint Patient presents with: Thyroid Problem Hair Loss HPI Sammy Redd is a 42 year old female who presents here today for Above Complaints. Today: Hair loss-noticed about a month ago. Noticing that she is shedding a lot. Vivascale vitamin-got so nauseated she couldn't Pmuivbvlr-Uwzktku-qbjlztp Pil[place]. Has a lot going on-may be having [...] Sprays in the nose once daily. In themorning Current Facility-Administered Medications on File Prior to Visit Medication cosyntropin 0.25 mg injection (CORTROSYN) Social History Social History Tobacco Use Smoking status: Never Smokeless tobacco: Never Vaping Use Vaping Use: Never used Substance Use Topics Alcohol use: Yes Comment: twice a year-socially Drug use: No Review of Symptoms REVIEW [...] MG TABLET - LORAZEPAM 0.5 MG TABLET Dee Flores APRN.CNP documented in this encounterCleveland Clinic Avon Hospital08-11-2022 History of Present illness Narrative* Dee Flores APRN.CNP - 12/05/2021 11:44 AM EDT VIRTUAL VISIT PROGRESS NOTE This is a virtual visit using CustomMade video visit. It required patient-provider interaction for themedical decision making as documented below. Sammy Redd is a 41 year old female [...] more like 2 days per week. Makes sureto be up and moving rather than sitting [...] Topics Alcohol use: Yes Comment: twice a year-socially Drug use: No Current Outpatient Medications Medication [...] Sprays in the nose once daily. In themorning Current Facility-Administered Medications Medication Dose Route Frequency [...] for such. Both parents with RA hx. Dee Flores APRN.CNP PDMP website checked and validated. All prescriptions have been APPROPRIATELY filled. No suspiciousactivity was identified. 12/05/2021 by Dee Flores CNP. documented in this encounterCleveland Clinic [facility] Hospital07-11-2022 History of Present illness Narrative* Brandi Rasmussen APRN.CNP - 11/04/2021 12:46 PM EDT This Team Access Model visit is a virtual encounter. It required patient- provider interaction for the medical decision making as documented below. Patient agrees to the visit: Yes Patient Location: [place] CC: Patient presents with: Weight Problem HPI Sammy Redd is a 41 year old female who is contacted today for a virtual visit. This is an established patient of Dr. Jose Luis Toledo DO. Sammy is a new patient to me today. [...] --- always gets at least 2x/week at [employer] -- weight lifting and cardiac equipment. ADHD: On adderall 10 mg daily in the morning. Started afternoon dosage prn 5 mg at last visit. Taking afternoon dosage most days but not everyday like the 10mg. Feels this afternoon dosage is working well.No need to change dosage or regimen. But [...] Sprays in the nose once daily. In themorning FAMILY HISTORY Problem Relation Age of Onset [...] Topics Alcohol use: Yes Comment: twice a year-socially Drug use: No EXAM: Deferred physical exam [...] All prescriptions have been APPROPRIATELY filled. No suspiciousactivity was identified. 11/04/2021 by Brandi Rasmussen APRN.PRINTING EQUIPMENT MECHANIC APPRENTICE - reviewed SE, medication expectations, required weight loss of 5%, required monthly monitoring andmedication duration of use (3 months on 6 [...] exercise, treatment options and medications. Brandi Rasmussen APRN.CNP documented in this encounterCleveland Clinic [facility] Hospital06-09-2022 Instructions* Patient Instructions* Dee Flores APRN.CNP - 10/03/2021 11:51 AM EDT Fish oil-[place] 3 Red Rice Yeast Both help with cholesterol documented in this encounterCleveland Clinic Avon Hospital06-09-2022 History of Present illness Narrative* Dee Flores APRN.CNP - 10/03/2021 11:43 AM EDT Chief Complaint Patient presents with: Medication Follow-up: start adipex HPI Sammy Redd is a 41 year old female who presents here today for Above Complaints. Today: Adderall is working well at current dose. Feels like it wears off around 1-2 in the afternoon. Has tolerated Adipex well in the past. Diet-Tries to stick with 20g of carbs today. Limiting carbs. Exercise-works out twice weekly at [employer]-tries to do more than this. Her [...] Sprays in the nose once daily. In themorning Current Facility-Administered Medications on File Prior to Visit Medication cosyntropin 0.25 mg injection (CORTROSYN) Social History Social History Tobacco Use Smoking status: Never Smoker Smokeless tobacco: Never Used Vaping Use Vaping Use: Never used Substance Use Topics Alcohol use: Yes Comment: twice a year-socially Drug use: No Review of Symptoms REVIEW [...] ICD10: E78.5 Discussed diet, weight loss, exercise. [place] 3s and red rice yeast. Dee Flores APRN.JOI PDMP website checked and validated. All prescriptions have been APPROPRIATELY filled. No suspiciousactivity was identified. 10/03/2021 by Dee Flores CNP. documented in this encounterCleveland Clinic [facility]on Hospital06-07-2022 NotePap Smear Specimen AdequacyJun2021 11:05amComment.Satisfactory for evaluation. No endocervical component is identified.[facility] A#[id number] State Health System Work Phone: comment on above:Satisfactory for evaluation. No endocervical component is identified.10-01-2021 NotePap Smear Specimen Adequacy October 01, 2021 11:05amComment.Satisfactory for evaluation. No endocervical component is identified.[facility] A#[id number] State Health System Work Phone: Comzjxg on above:Satisfactory for evaluation. No endocervical component is identified.10-01-2021 NotePap Smear Specimen Adequacy October 01, 2021 11:05amComment.Satisfactory for evaluation. No endocervical component is identified.[facility] A#[id number] State Health System Work Phone: comment on above:Satisfactory for evaluation. No endocervical component is identified.10-01-2021 NotePap Smear Specimen Adequacy October 01, 2021 11:05amComment.Satisfactory for evaluation. No endocervical component is identified.[facility] A#[id number] [facility] Hospital Work Phone: Comment on above:Satisfactory for evaluation. No endocervical component is identified.08-12-2021 Instructions* Patient Instructions* Dee Flores APRN.CNP - 08/12/2021 9:43 AM EDT Let me know in 2 weeks if your want to increase your Adderall-just send me a CustomMade message. Have labs drawn on the way out today. I should have results in 1-2 days. documented in this encounterCleveland Clinic [facility] Hospital04-18-2022 History of Present illness Narrative* Dee Flores APRN.CNP - 08/12/2021 9:12 AM EDT Patient presents with: F/U 6 months: thyroid lab work, cyst removed 07/30/21 @ [facility] HPI: Sammy Redd is a 41 year old female who presents to the office today for review of health conditions. She is an established patient of Dr. Toledo and following up with me today. Concerns today: Was told that she is due for a follow up on her thyroid. Feels good except that shehas had some hair loss-wondering if this could [...] Topics Alcohol use: Yes Comment: twice a year-socially Drug use: No FAMILY HISTORY Problem Relation [...] Sprays in the nose once daily. In themorning omeprazole (PRILOSEC) 20 mg capsule Take 1 [...] ICD10: M25.559 - TIZANIDINE 4 MG TABLET Dee Flores APRN.CNP To ER if develops chest pain, shortness of breath, or severe worsening of symptoms. Discussed risks, benefits, alternatives, and potential side effects of medications. Patient expressed understanding and agreed with the plan. Dee Flores APRN.CNP [address] [place] [address] documented in this encounterCleveland Clinic Avon Hospital02-11-2022 Miscellaneous Notes* Telephone Encounter - Giana Perdue Ma - 06/07/2021 12:35 PM EST Faxed to [facility] Giana Perdue Ma * Telephone Encounter - Dee Flores APRN.CNP - 06/07/2021 12:32 PM EST New order placed. Dee Flores APRN.CNP * Telephone Encounter - Angelica Johnson RN - 06/07/2021 12:08 PM EST Preeti with [facility] calls and asks for mammogram order to add with Christiano (3-d imaging) to current order and then send back to [phone]. She said they only offer this so order has to specify it. Angelica Johnson RN documented in this encounterCleveland Clinic Av[facility] Hospital08-09-2021 History of Present illness Narrative* Jodie Knott RT(R) - 12/03/2020 6:20 PM EDT Radiology Service Progress Note PATIENT NAME: Sammy Redd DATE OF SERVICE: December 03, 2020 TIME: 6:30 PM PATIENT IDENTITY VERIFICATION COMPLETED USING TWO (2) IDENTIFIERS: Name and Date of confirmedby patient verbally. FALL SCREENING: Has the patient [...] IV DATA: Not applicable SIGNED BY: RT Britton(R) December 03, 2020 6:30 PM documented in this encounterCleveland Clinic Avon Hospital10-19-2020 History of Present illness Narrative* Sanam Gomez (Tech), Tech - 02/13/2020 11:00 AM EDT Radiology Service Progress Note PATIENT NAME: Sammy Redd DATE OF SERVICE: February 13, 2020 TIME: 10:52 AM PATIENT IDENTITY VERIFICATION COMPLETED USING TWO (2) IDENTIFIERS: Name and Date of confirmedby patient verbally. FALL SCREENING: Has the patient had 2 falls in the last year or 1 fall with injury or currently using an Ambulatory Assistive Device (Walker, Cane, Wheelchair, Crutches, etc.)? No PATIENT GENDER DATA: Female. status: : No status: NO. PATIENT RELEVANT IMPLANT DATA REVIEWED: Not Applicable RADIOLOGY DEPARTMENT: General X-ray: Exam(s) Completed: Pelvis X-Ray: Pelvis with Hip Left PERIPHERAL IV DATA: Not applicable SIGNED BY: Forrest Somers February 13, 2020 10:52 AM documented in this encounterCleveland Clinic Avon Hospital06-27-2017 History of Past illness Narrative* Problem Noted Date Resolved Date Tick bite 10/21/2016 03/10/2017 Obesity (BMI 30-39.9) 09/15/2014 11/18/2017 Kidney stone 08/28/2014 03/10/2017 Right flank pain 08/28/2014 03/10/2017 Renal calculi 05/13/2010 03/10/2017 documented as of this encounter (statuses as of 08/12/2021) [address]27-2017 History of Past illness Narrative* Problem Noted Date Resolved Date Tick bite 10/21/2016 03/10/2017 Obesity (BMI 30-39.9) 09/15/2014 11/18/2017 Kidney stone 08/28/2014 03/10/2017 Right flank pain 08/28/2014 03/10/2017 Renal calculi 05/13/2010 03/10/2017 documented as of this encounter (statuses as of 10/03/2021) [facility] of [facility] illness Narrative* Problem Noted Date Resolved Date Tick bite 10/21/2016 03/10/2017 Obesity (BMI 30-39.9) 09/15/2014 11/18/2017 Kidney stone 08/28/2014 03/10/2017 Right flank pain 08/28/2014 03/10/2017 Renal calculi 05/13/2010 03/10/2017 documented as of this encounter (statuses as of 11/04/2021) [address]27-2017 History of Past illness Narrative* Problem Noted Date Resolved Date Tick bite 10/21/2016 03/10/2017 Obesity (BMI 30-39.9) 09/15/2014 11/18/2017 Kidney stone 08/28/2014 03/10/2017 Right flank pain 08/28/2014 03/10/2017 Renal calculi 05/13/2010 03/10/2017 documented as of this encounter (statuses as of 12/05/2021) [address]27-2017 History of Past illness Narrative* Problem Noted Date Resolved Date Tick bite 10/21/2016 03/10/2017 Obesity (BMI 30-39.9) 09/15/2014 11/18/2017 Kidney stone 08/28/2014 03/10/2017 Right flank pain 08/28/2014 03/10/2017 Renal calculi 05/13/2010 03/10/2017 documented as of this encounter (statuses as of 12/12/2021) [facility] Narrative* Problem Noted Date Resolved Date Tick bite 10/21/2016 03/10/2017 Obesity (BMI 30-39.9) 09/15/2014 11/18/2017 Kidney stone 08/28/2014 03/10/2017 Right flank pain 08/28/2014 03/10/2017 Renal calculi 05/13/2010 03/10/2017 documented as of this encounter (statuses as of 01/16/2022) [facility] Narrative* Problem Noted Date Resolved Date Tick bite 10/21/2016 03/10/2017 Obesity (BMI 30-39.9) 09/15/2014 11/18/2017 Kidney stone 08/28/2014 03/10/2017 Right flank pain 08/28/2014 03/10/2017 Renal calculi 05/13/2010 03/10/2017 documented as of this encounter (statuses as of 01/21/2022) [facility] Narrative* Problem Noted Date Resolved Date Tick bite 10/21/2016 03/10/2017 Obesity (BMI 30-39.9) 09/15/2014 11/18/2017 Kidney stone 08/28/2014 03/10/2017 Right flank pain 08/28/2014 03/10/2017 Renal calculi 05/13/2010 03/10/2017 documented as of this encounter (statuses as of 02/06/2022) [facility] Narrative* Problem Noted Date Resolved Date Tick bite 10/21/2016 03/10/2017 Obesity (BMI 30-39.9) 09/15/2014 11/18/2017 Kidney stone 08/28/2014 03/10/2017 Right flank pain 08/28/2014 03/10/2017 Renal calculi 05/13/2010 03/10/2017 documented as of this encounter (statuses as of 02/21/2022) [address]27-2017 History of Past illness Narrative* Problem Noted Date Resolved Date Tick bite 10/21/2016 03/10/2017 Obesity (BMI 30-39.9) 09/15/2014 11/18/2017 Kidney stone 08/28/2014 03/10/2017 Right flank pain 08/28/2014 03/10/2017 Renal calculi 05/13/2010 03/10/2017 documented as of this encounter (statuses as of 02/27/2022) [address]27-2017 History of Past illness Narrative* Problem Noted Date Resolved Date Tick bite 10/21/2016 03/10/2017 Obesity (BMI 30-39.9) 09/15/2014 11/18/2017 Kidney stone 08/28/2014 03/10/2017 Right flank pain 08/28/2014 03/10/2017 Renal calculi 05/13/2010 03/10/2017 documented as of this encounter (statuses as of 05/12/2022) [address]2017 History of Past illness Narrative* Problem Noted Date Resolved Date Tick bite 10/21/2016 03/10/2017 Obesity (BMI 30-39.9) 09/15/2014 11/18/2017 Kidney stone 08/28/2014 03/10/2017 Right flank pain 08/28/2014 03/10/2017 Renal calculi 05/13/2010 03/10/2017 documented as of this encounter (statuses as of 05/19/2022) [address]27-2017 History of Past illness Narrative* Problem Noted Date Resolved Date Tick bite 10/21/2016 03/10/2017 Obesity (BMI 30-39.9) 09/15/2014 11/18/2017 Kidney stone 08/28/2014 03/10/2017 Right flank pain 08/28/2014 03/10/2017 Renal calculi 05/13/2010 03/10/2017 documented as of this encounter (statuses as of 05/19/2022) [address]27-2017 History of Past illness Narrative* Problem Noted Date Resolved Date Tick bite 10/21/2016 03/10/2017 Obesity (BMI 30-39.9) 09/15/2014 11/18/2017 Kidney stone 08/28/2014 03/10/2017 Right flank pain 08/28/2014 03/10/2017 Renal calculi 05/13/2010 03/10/2017 documented as of this encounter (statuses as of 06/18/2022) [address]27-2017 History of Past illness Narrative* Problem Noted Date Resolved Date Tick bite 10/21/2016 03/10/2017 Obesity (BMI 30-39.9) 09/15/2014 11/18/2017 Kidney stone 08/28/2014 03/10/2017 Right flank pain 08/28/2014 03/10/2017 Renal calculi 05/13/2010 03/10/2017 documented as of this encounter (statuses as of 06/30/2022) [address]27-2017 History of Past illness Narrative* Problem Noted Date Resolved Date Tick bite 10/21/2016 03/10/2017 Obesity (BMI 30-39.9) 09/15/2014 11/18/2017 Kidney stone 08/28/2014 03/10/2017 Right flank pain 08/28/2014 03/10/2017 Renal calculi 05/13/2010 03/10/2017 documented as of this encounter (statuses as of 07/28/2022) [address]27-2017 History of Past illness Narrative* Problem Noted Date Resolved Date Tick bite 10/21/2016 03/10/2017 Obesity (BMI 30-39.9) 09/15/2014 11/18/2017 Kidney stone 08/28/2014 03/10/2017 Right flank pain 08/28/2014 03/10/2017 Renal calculi 05/13/2010 03/10/2017 documented as of this encounter (statuses as of 08/02/2022) [address]27-2017 History of Past illness Narrative* Problem Noted Date Resolved Date Tick bite 10/21/2016 03/10/2017 Obesity (BMI 30-39.9) 09/15/2014 11/18/2017 Kidney stone 08/28/2014 03/10/2017 Right flank pain 08/28/2014 03/10/2017 Renal calculi 05/13/2010 03/10/2017 documented as of this encounter (statuses as of 08/08/2022) [address]27-2017 History of Past illness Narrative* Problem Noted Date Resolved Date Tick bite 10/21/2016 03/10/2017 Obesity (BMI 30-39.9) 09/15/2014 11/18/2017 Kidney stone 08/28/2014 03/10/2017 Right flank pain 08/28/2014 03/10/2017 Renal calculi 05/13/2010 03/10/2017 documented as of this encounter (statuses as of 08/08/2022) [address]27-2017 History of Past illness Narrative* Problem Noted Date Resolved Date Tick bite 10/21/2016 03/10/2017 Obesity (BMI 30-39.9) 09/15/2014 11/18/2017 Kidney stone 08/28/2014 03/10/2017 Right flank pain 08/28/2014 03/10/2017 Renal calculi 05/13/2010 03/10/2017 documented as of this encounter (statuses as of 08/15/2022) [address]27-2017 History of Past illness Narrative* Problem Noted Date Resolved Date Tick bite 10/21/2016 03/10/2017 Obesity (BMI 30-39.9) 09/15/2014 11/18/2017 Kidney stone 08/28/2014 03/10/2017 Right flank pain 08/28/2014 03/10/2017 Renal calculi 05/13/2010 03/10/2017 documented as of this encounter (statuses as of 08/20/2022) [address]27-2017 History of Past illness Narrative* Problem Noted Date Resolved Date Tick bite 10/21/2016 03/10/2017 Obesity (BMI 30-39.9) 09/15/2014 11/18/2017 Kidney stone 08/28/2014 03/10/2017 Right flank pain 08/28/2014 03/10/2017 Renal calculi 05/13/2010 03/10/2017 documented as of this encounter (statuses as of 08/29/2022) [address]27-2017 History of Past illness Narrative* Problem Noted Date Resolved Date Tick bite 10/21/2016 03/10/2017 Obesity (BMI 30-39.9) 09/15/2014 11/18/2017 Kidney stone 08/28/2014 03/10/2017 Right flank pain 08/28/2014 03/10/2017 Renal calculi 05/13/2010 03/10/2017 documented as of this encounter (statuses as of 10/13/2022) [address]27-2017 History of Past illness Narrative* Problem Noted Date Resolved Date Tick bite 10/21/2016 03/10/2017 Obesity (BMI 30-39.9) 09/15/2014 11/18/2017 Kidney stone 08/28/2014 03/10/2017 Right flank pain 08/28/2014 03/10/2017 Renal calculi 05/13/2010 03/10/2017 documented as of this encounter (statuses as of 10/24/2022) [address]27-2017 History of Past illness Narrative* Problem Noted Date Diagnosed Date Resolved Date Tick bite 10/21/2016 03/10/2017 Obesity (BMI 30-39.9) 09/15/20142017 Kidney stone 08/28/2014 03/10/2017 Right flank pain 08/28/2014 03/10/2017 Renal calculi 05/13/2010 03/10/2017 documented as of this encounter (statuses as of 12/03/2022) [address]27-2017 History of Past illness Narrative* Problem Noted Date Diagnosed Date Resolved Date Tick bite 10/21/2016 03/10/2017 Obesity (BMI 30-39.9) 09/15/20142017 Kidney stone 08/28/2014 03/10/2017 Right flank pain 08/28/2014 03/10/2017 Renal calculi 05/13/2010 03/10/2017 documented as of this encounter (statuses as of 12/30/2022) [address]27-2017 History of Past illness Narrative* Problem Noted Date Diagnosed Date Resolved Date Tick bite 10/21/2016 03/10/2017 Obesity (BMI 30-39.9) 09/15/20142017 Kidney stone 08/28/2014 03/10/2017 Right flank pain 08/28/2014 03/10/2017 Renal calculi 05/13/2010 03/10/2017 documented as of this encounter (statuses as of 12/31/2022) [address]27-2017 History of Past illness Narrative* Problem Noted Date Diagnosed Date Resolved Date Tick bite 10/21/2016 03/10/2017 Obesity (BMI 30-39.9) 09/15/20142017 Kidney stone 08/28/2014 03/10/2017 Right flank pain 08/28/2014 03/10/2017 Renal calculi 05/13/2010 03/10/2017 documented as of this encounter (statuses as of 01/31/2023) [address]27-2017 History of Past illness Narrative* Problem Noted Date Diagnosed Date Resolved Date Tick bite 10/21/2016 03/10/2017 Obesity (BMI 30-39.9) 09/15/20142017 Kidney stone 08/28/2014 03/10/2017 Right flank pain 08/28/2014 03/10/2017 Renal calculi 05/13/2010 03/10/2017 documented as of this encounter (statuses as of 02/04/2023) [address]27-2017 History of Past illness Narrative* Problem Noted Date Diagnosed Date Resolved Date Tick bite 10/21/2016 03/10/2017 Obesity (BMI 30-39.9) 09/15/20142017 Kidney stone 08/28/2014 03/10/2017 Right flank pain 08/28/2014 03/10/2017 Renal calculi 05/13/2010 03/10/2017 documented as of this encounter (statuses as of 02/06/2023) [address]27-2017 History of Past illness Narrative* Problem Noted Date Diagnosed Date Resolved Date Tick bite 10/21/2016 03/10/2017 Obesity (BMI 30-39.9) 09/15/20142017 Kidney stone 08/28/2014 03/10/2017 Right flank pain 08/28/2014 03/10/2017 Renal calculi 05/13/2010 03/10/2017 documented as of this encounter (statuses as of 02/09/2023) [address]27-2017 History of Past illness Narrative* Problem Noted Date Diagnosed Date Resolved Date Tick bite 10/21/2016 03/10/2017 Obesity (BMI 30-39.9) 09/15/20142017 Kidney stone 08/28/2014 03/10/2017 Right flank pain 08/28/2014 03/10/2017 Renal calculi 05/13/2010 03/10/2017 documented as of this encounter (statuses as of 02/12/2023) [address]27-2017 History of Past illness Narrative* Problem Noted Date Diagnosed Date Resolved Date Tick bite 10/21/2016 03/10/2017 Obesity (BMI 30-39.9) 09/15/20142017 Kidney stone 08/28/2014 03/10/2017 Right flank pain 08/28/2014 03/10/2017 Renal calculi 05/13/2010 03/10/2017 documented as of this encounter (statuses as of 02/12/2023) [address]-2017 History of Past illness Narrative* Problem Noted Date Diagnosed Date Resolved Date Tick bite 10/21/2016 03/10/2017 Obesity (BMI 30-39.9) 09/15/20142017 Kidney stone 08/28/2014 03/10/2017 Right flank pain 08/28/2014 03/10/2017 Renal calculi 05/13/2010 03/10/2017 documented as of this encounter (statuses as of 02/19/2023) [address]27-2017 History of Past illness Narrative* Problem Noted Date Diagnosed Date Resolved Date Tick bite 10/21/2016 03/10/2017 Obesity (BMI 30-39.9) 09/15/20142017 Kidney stone 08/28/2014 03/10/2017 Right flank pain 08/28/2014 03/10/2017 Renal calculi 05/13/2010 03/10/2017 documented as of this encounter (statuses as of 02/19/2023) [address]27-2017 History of Past illness Narrative* Problem Noted Date Diagnosed Date Resolved Date Tick bite 10/21/2016 03/10/2017 Obesity (BMI 30-39.9) 09/15/20142017 Kidney stone 08/28/2014 03/10/2017 Right flank pain 08/28/2014 03/10/2017 Renal calculi 05/13/2010 03/10/2017 documented as of this encounter (statuses as of 02/28/2023) [address]27-2017 History of Past illness Narrative* Problem Noted Date Diagnosed Date Resolved Date Tick bite 10/21/2016 03/10/2017 Obesity (BMI 30-39.9) 09/15/20142017 Kidney stone 08/28/2014 03/10/2017 Right flank pain 08/28/2014 03/10/2017 Renal calculi 05/13/2010 03/10/2017 documented as of this encounter (statuses as of 03/01/2023) [place] [id number] History of Past illness Narrative* Problem Noted Date Diagnosed Date Resolved Date Tick bite 10/21/2016 03/10/2017 Obesity (BMI 30-39.9) 09/15/20142017 Kidney stone 08/28/2014 03/10/2017 Right flank pain 08/28/2014 03/10/2017 Renal calculi 05/13/2010 03/10/2017 documented as of this encounter (statuses as of 03/01/2023) [address]27-2017 History of Past illness Narrative* Problem Noted Date Diagnosed Date Resolved Date Tick bite 10/21/2016 03/10/2017 Obesity (BMI 30-39.9) 09/15/20142017 Kidney stone 08/28/2014 03/10/2017 Right flank pain 08/28/2014 03/10/2017 Renal calculi 05/13/2010 03/10/2017 documented as of this encounter (statuses as of 03/01/2023) [address]27-2017 History of Past illness Narrative* Problem Noted Date Diagnosed Date Resolved Date Tick bite 10/21/2016 03/10/2017 Obesity (BMI 30-39.9) 09/15/20142017 Kidney stone 08/28/2014 03/10/2017 Right flank pain 08/28/2014 03/10/2017 Renal calculi 05/13/2010 03/10/2017 documented as of this encounter (statuses as of 03/01/2023) [address]27-2017 History of Past illness Narrative* Problem Noted Date Diagnosed Date Resolved Date Tick bite 10/21/2016 03/10/2017 Obesity (BMI 30-39.9) 09/15/20142017 Kidney stone 08/28/2014 03/10/2017 Right flank pain 08/28/2014 03/10/2017 Renal calculi 05/13/2010 03/10/2017 documented as of this encounter (statuses as of 03/01/2023) [address]27-2017 History of Past illness Narrative* Problem Noted Date Diagnosed Date Resolved Date Tick bite 10/21/2016 03/10/2017 Obesity (BMI 30-39.9) 09/15/20142017 Kidney stone 08/28/2014 03/10/2017 Right flank pain 08/28/2014 03/10/2017 Renal calculi 05/13/2010 03/10/2017 documented as of this encounter (statuses as of 03/06/2023) [address]27-2017 History of Past illness Narrative* Problem Noted Date Diagnosed Date Resolved Date Tick bite 10/21/2016 03/10/2017 Obesity (BMI 30-39.9) 09/15/20142017 Kidney stone 08/28/2014 03/10/2017 Right flank pain 08/28/2014 03/10/2017 Renal calculi 05/13/2010 03/10/2017 documented as of this encounter (statuses as of 03/12/2023) [address]27-2017 History of Past illness Narrative* Problem Noted Date Diagnosed Date Resolved Date Tick bite 10/21/2016 03/10/2017 Obesity (BMI 30-39.9) 09/15/20142017 Kidney stone 08/28/2014 03/10/2017 Right flank pain 08/28/2014 03/10/2017 Renal calculi 05/13/2010 03/10/2017 documented as of this encounter (statuses as of 03/24/2023) [address]27-2017 History of Past illness Narrative* Problem Noted Date Diagnosed Date Resolved Date Tick bite 10/21/2016 03/10/2017 Obesity (BMI 30-39.9) 09/15/20142017 Kidney stone 08/28/2014 03/10/2017 Right flank pain 08/28/2014 03/10/2017 Renal calculi 05/13/2010 03/10/2017 documented as of this encounter (statuses as of 03/27/2023) [address]27-2017 History of Past illness Narrative* Problem Noted Date Diagnosed Date Resolved Date Tick bite 10/21/2016 03/10/2017 Obesity (BMI 30-39.9) 09/15/20142017 Kidney stone 08/28/2014 03/10/2017 Right flank pain 08/28/2014 03/10/2017 Renal calculi 05/13/2010 03/10/2017 documented as of this encounter (statuses as of 03/30/2023) [address]27-2017 History of Past illness Narrative* Problem Noted Date Diagnosed Date Resolved Date Tick bite 10/21/2016 03/10/2017 Obesity (BMI 30-39.9) 09/15/20142017 Kidney stone 08/28/2014 03/10/2017 Right flank pain 08/28/2014 03/10/2017 Renal calculi 05/13/2010 03/10/2017 documented as of this encounter (statuses as of 06/08/2023) [address]27-2017 History of Past illness Narrative* Problem Noted Date Diagnosed Date Resolved Date Tick bite 10/21/2016 03/10/2017 Obesity (BMI 30-39.9) 09/15/20142017 Kidney stone 08/28/2014 03/10/2017 Right flank pain 08/28/2014 03/10/2017 Renal calculi 05/13/2010 03/10/2017 documented as of this encounter (statuses as of 07/06/2023) [address]27-2017 History of Past illness Narrative* Problem Noted Date Diagnosed Date Resolved Date Tick bite 10/21/2016 03/10/2017 Obesity (BMI 30-39.9) 09/15/20142017 Kidney stone 08/28/2014 03/10/2017 Right flank pain 08/28/2014 03/10/2017 Renal calculi 05/13/2010 03/10/2017 documented as of this encounter (statuses as of 07/06/2023) [address]27-2017 History of Past illness Narrative* Problem Noted Date Diagnosed Date Resolved Date Tick bite 10/21/2016 03/10/2017 Obesity (BMI 30-39.9) 09/15/20142017 Kidney stone 08/28/2014 03/10/2017 Right flank pain 08/28/2014 03/10/2017 Renal calculi 05/13/2010 03/10/2017 documented as of this encounter (statuses as of 08/06/2023) [address]27-2017 History of Past illness Narrative* Problem Noted Date Diagnosed Date Resolved Date Tick bite 10/21/2016 03/10/2017 Obesity (BMI 30-39.9) 09/15/20142017 Kidney stone 08/28/2014 03/10/2017 Right flank pain 08/28/2014 03/10/2017 Renal calculi 05/13/2010 03/10/2017 documented as of this encounter (statuses as of 08/11/2023) [address]27-2017 History of Past illness Narrative* Problem Noted Date Diagnosed Date Resolved Date Tick bite 10/21/2016 03/10/2017 Obesity (BMI 30-39.9) 09/15/20142017 Kidney stone 08/28/2014 03/10/2017 Right flank pain 08/28/2014 03/10/2017 Renal calculi 05/13/2010 03/10/2017 documented as of this encounter (statuses as of 08/13/2023) [facility] Onset Date Resolution Status Mid back pain on left side a cute Urinary frequency acute Brain aneurysm acute History of endometriosis acu te PCOS (polycystic ovarian syndrome) acute Pelvic pain acute [facility] Work Phone: Evaluation note* Diagnosis Onset Date Resolution Status Mid back pain on left side a cute Urinary frequency acute Brain aneurysm acute History of endometriosis acu te PCOS (polycystic ovarian syndrome) acute Pelvic pain acute Pelvic pain acute Right ovarian cyst acute H/O ovarian cystectomy acute History of total vaginal hysterectomy (TVH) acute Hx of protein S deficiency a cute Pelvic pain acute Right ovarian cyst acute [facility] Work Phone: Evaluation note* Diagnosis Anxiety disorder, unspecified type- Primary Impaired concentration IFG (impaired fasting glucose) Impaired fasting glucose Hypothyroidism, acquired Unspecified hypothyroidism Dyslipidemia Other and unspecified hyperlipidemia Obesity, Class II, BMI 35-39.9 Obesity, unspecified Vitamin D deficiency Unspecified vitamin D deficiency Hip pain Pain in joint, pelvic region and thigh [facility] Diagnosis Onset Date Resolution Status Mid back pain on left side a cute Urinary frequency acute Brain aneurysm acute History of endometriosis acu te PCOS (polycystic ovarian syndrome) acute Pelvic pain acute Pelvic pain acute Right ovarian cyst acute Anosmia chronic Cerebral aneurysm chronic Hypercoagulable state chroni c Migraine headache with aura chronic H/O ovarian cystectomy acute History of total vaginal hysterectomy (TVH) acute Hx of protein S deficiency a cute Pelvic pain acute Right ovarian cyst acute Anosmia chronic [facility] Work Phone: Evaluation note* Diagnosis Onset Date Resolution Status Mid back pain on left side a cute Urinary frequency acute Brain aneurysm acute History of endometriosis acu te PCOS (polycystic ovarian syndrome) acute Pelvic pain acute Pelvic pain acute Right ovarian cyst acute Anosmia chronic Cerebral aneurysm chronic Hypercoagulable state chroni c Migraine headache with aura chronic H/O ovarian cystectomy acute History of total vaginal hysterectomy (TVH) acute Hx of protein S deficiency a cute Pelvic pain acute Right ovarian cyst acute Anosmia chronic History of endometriosis acu te [facility] Work Phone: Evaluation note* Diagnosis Onset Date Resolution Status Mid back pain on left side a cute Urinary frequency acute Brain aneurysm acute History of endometriosis acu te PCOS (polycystic ovarian syndrome) acute Pelvic pain acute Pelvic pain acute Right ovarian cyst acute Anosmia chronic Cerebral aneurysm chronic Hypercoagulable state chroni c Migraine headache with aura chronic H/O ovarian cystectomy acute History of total vaginal hysterectomy (TVH) acute Hx of protein S deficiency a cute Pelvic pain acute Right ovarian cyst acute Anosmia chronic History of endometriosis acu te Anosmia chronic Cerebral aneurysm chronic Hypercoagulable state chroni c Migraine headache with aura chronic [facility] Work Phone: Evaluation note* Diagnosis Obesity, Class III, BMI 40-49.9 (morbid obesity) (HCC)- Primary Morbid obesity Impaired concentration Dyslipidemia Other and unspecified hyperlipidemia [facility] Diagnosis Onset Date Resolution Status Brain aneurysm acute History of endometriosis acu te PCOS (polycystic ovarian syndrome) acute Pelvic pain acute Pelvic pain acute Right ovarian cyst acute Anosmia chronic Cerebral aneurysm chronic Hypercoagulable state chroni c Migraine headache with aura chronic H/O ovarian cystectomy acute History of total vaginal hysterectomy (TVH) acute Hx of protein S deficiency a cute Pelvic pain acute Right ovarian cyst acute Anosmia chronic History of endometriosis acu te Anosmia chronic Cerebral aneurysm chronic Hypercoagulable state chroni c Migraine headache with aura chronic Lichen sclerosus acute [facility] Work Phone: Evaluation note* Diagnosis Obesity, Class III, BMI 40-49.9 (morbid obesity) (HCC)- Primary Morbid obesity Dyslipidemia Other and unspecified hyperlipidemia IFG (impaired fasting glucose) Impaired fasting glucose Impaired concentration [facility] Diagnosis Onset Date Resolution Status Pelvic pain acute Right ovarian cyst acute Anosmia chronic Cerebral aneurysm chronic Hypercoagulable state chroni c Migraine headache with aura chronic H/O ovarian cystectomy acute History of total vaginal hysterectomy (TVH) acute Hx of protein S deficiency a cute Pelvic pain acute Right ovarian cyst acute Anosmia chronic History of endometriosis acu te Anosmia chronic Cerebral aneurysm chronic Hypercoagulable state chroni c Migraine headache with aura chronic Lichen sclerosus acute Routine gynecological examination noneactive Vaginitis noneactive Lichen sclerosus acute Pelvic pain acute [facility] Work Phone: Evaluation note* Diagnosis Impaired concentration- Primary Obesity, Class III, BMI 40-49.9 (morbid obesity) (HCC) Morbid obesity Dyslipidemia Other and unspecified hyperlipidemia IFG (impaired fasting glucose) Impaired fasting glucose Pain in both hands [facility] Diagnosis Encounter for screening mammogram for breast cancer- Primary documented in this encounter [facility] note* Diagnosis Onset Date Resolution Status Anosmia chronic Cerebral aneurysm chronic Hypercoagulable state chroni c Migraine headache with aura chronic Lichen sclerosus acute Routine gynecological examination noneactive Vaginitis noneactive Lichen sclerosus acute Pelvic pain acute [facility] Work Phone: Evaluation note* Diagnosis Onset Date Resolution Status Anosmia chronic Cerebral aneurysm chronic Hypercoagulable state chroni c Migraine headache with aura chronic Lichen sclerosus acute Routine gynecological examination noneactive Vaginitis noneactive Lichen sclerosus acute Pelvic pain acute Cerebral aneurysm chronic Hypercoagulable state chroni c Migraine headache with aura chronic [facility] Work Phone: Evaluation note* Diagnosis Hair thinning- Primary Alopecia, unspecified Hair loss Alopecia, unspecified Hypothyroidism, acquired Unspecified hypothyroidism Fatigue, unspecified type Stress Other psychological or physical stress, not elsewhere classified Body aches Generalized pain Anxiety disorder, unspecified type Impaired concentration [facility] Diagnosis COVID-19- Primary documented in this encounter [facility] note* Diagnosis Post-op pain- Primary Other acute postoperative pain Pelvic mass in female Abdominal or pelvic swelling, mass or lump, unspecified site documented in this encounter [facility] Work Phone: Evaluation note* Diagnosis Onset Date Resolution Status Lichen sclerosus acute Pelvic pain acute Cerebral aneurysm chronic Hypercoagulable state chroni c Migraine headache with aura chronic [facility] Work Phone: Evaluation note* Diagnosis Premature menopause- Primary Surgical menopause Symptomatic states associated with artificial menopause Neuritis Neuralgia, neuritis, and radiculitis, unspecified Acute midline low back pain without sciatica [facility] Diagnosis Abdominal pain, LLQ- Primary Abdominal pain, left lower quadrant Hx of bilateral oophorectomy Acquired absence of organ, genital organs Left lower quadrant abdominal pain Bloody stool Blood in stool Chronic midline low back pain without sciatica documented in this encounter [facility] note* Diagnosis Onset Date Resolution Status Cerebral aneurysm chronic Hypercoagulable state chroni c Migraine headache with aura chronic Anxiety acute Sebaceous cyst noneactive Anxiety acute Climacteric acute History of total vaginal hysterectomy (TVH) acute Hx of protein S deficiency a cute S/P oophorectomy acute Telogen effluvium acute [facility] Work Phone: Evaluation note* Diagnosis Acute right flank pain- Primary Abdominal pain, unspecified site History of renal stone Personal history of urinary calculi Hair loss Alopecia, unspecified Thyroid nodule Nontoxic uninodular goiter Sacral pain Disorders of sacrum Chronic midline low back pain without sciatica Impaired concentration Adnexal cyst Other specified symptom associated with female genital organs documented in this encounter [facility] note* Diagnosis Thyroid nodule- Primary Nontoxic uninodular goiter Hypothyroidism, acquired Unspecified hypothyroidism Dyslipidemia Other and unspecified hyperlipidemia Hair loss Alopecia, unspecified documented in this encounter [facility] note* Diagnosis Onset Date Resolution Status Anxiety acute Sebaceous cyst noneactive Anxiety acute Climacteric acute History of total vaginal hysterectomy (TVH) acute Hx of protein S deficiency a cute S/P oophorectomy acute Telogen effluvium acute Anxiety acute Climacteric acute S/P oophorectomy acute Telogen effluvium acute [facility] Work Phone: Evaluation note* Diagnosis Onset Date Resolution Status Anxiety acute Climacteric acute History of total vaginal hysterectomy (TVH) acute Hx of protein S deficiency a cute S/P oophorectomy acute Telogen effluvium acute Anxiety acute Climacteric acute S/P oophorectomy acute Telogen effluvium acute [facility] Work Phone: Evaluation note* Diagnosis Hip pain Pain in joint, pelvic region and thigh documented in this encounter [facility] note* Diagnosis Impaired concentration documented in this encounter [facility] note* Diagnosis Right nephrolithiasis- Primary Impaired concentration Anxiety disorder, unspecified type Obesity, Class II, BMI 35-39.9 Obesity, unspecified Magnesium deficiency Disorders of magnesium metabolism Dermatofibroma Benign neoplasm of skin, site unspecified Chronic SI joint pain Disorders of sacrum Sclerosis of sacroiliac joint Disorders of sacrum documented in this encounter [facility] note* Diagnosis Encounter for screening mammogram for breast cancer documented in this encounter [facility] note* Diagnosis Obesity, Class III, BMI 40-49.9 (morbid obesity) ([facility])- Primary Morbid obesity Dyslipidemia Other and unspecified hyperlipidemia Hypothyroidism, acquired Unspecified hypothyroidism Sacral pain Disorders of sacrum Chronic midline low back pain without sciatica documented in this encounter [facility] note* Diagnosis Viral bronchitis- Primary Acute bronchitis Sore throat Acute pharyngitis Acute cough documented in this encounter [facility] note* Diagnosis Persistent cough- Primary Cough Bronchitis Bronchitis, not specified as acute or chronic Hoarse Dysphonia Vaginal lesion Other specified noninflammatory disorder of vagina documented in this encounter [facility] note* Diagnosis Bronchitis Bronchitis, not specified as acute or chronic Hoarse Dysphonia Persistent cough Cough [facility]* Diagnosis Impaired concentration Obesity, Class III, BMI 40-49.9 (morbid obesity) (HCC) Morbid obesity documented in this encounter [facility] note* Diagnosis Obesity, Class III, BMI 40-49.9 (morbid obesity) (HCC) Morbid obesity documented in this encounter [facility] note* Diagnosis Obesity, Class II, BMI 35-39.9- Primary Obesity, unspecified Impaired concentration Anxiety disorder, unspecified type Hypothyroidism, acquired Unspecified hypothyroidism documented in this encounter [facility] note* Diagnosis Hip pain Pain in joint, pelvic region and thigh [facility]* Diagnosis Obesity, Class II, BMI 35-39.9 Obesity, unspecified documented in this encounter [facility] note* Diagnosis Obesity, Class II, BMI 35-39.9 Obesity, unspecified [facility] Diagnosis Gross hematuria- Primary Kidney stone Calculus of kidney Impaired concentration Flank pain Abdominal pain, unspecified site [facility]* Diagnosis Kidney stone Calculus of kidney Gross hematuria Flank pain Abdominal pain, unspecified site [facility]* Diagnosis Right ureteral stone- Primary Calculus of ureter Acute right flank pain Abdominal pain, unspecified site Gross hematuria Kidney stone Calculus of kidney Flank pain Abdominal pain, unspecified site [facility]* Diagnosis Procedure not carried out- Primary Procedure not carried out for other reasons documented in this encounter [facility] noteNo assessment information availableWOhio[facility] Work [facility]: [facility]* Diagnosis Right nephrolithiasis documented in this encounter [facility] note* Diagnosis Right ureteral stone Calculus of ureter Kidney stone Calculus of kidney documented in this encounter [facility] note* Diagnosis Hair loss Alopecia, unspecified Thyroid nodule Nontoxic uninodular goiter Kidney stone Calculus of kidney [facility]* Diagnosis Acute right flank pain Abdominal pain, unspecified site History of renal stone Personal history of urinary calculi Kidney stone Calculus of kidney [facility]* Diagnosis Sacral pain Disorders of sacrum Chronic midline low back pain without sciatica Kidney stone Calculus of kidney [facility]* Diagnosis Left lower quadrant abdominal pain Kidney stone Calculus of kidney documented in [facility] Diagnosis Right ureteral stone Calculus of ureter Kidney stone Calculus of kidney documented [facility]* Diagnosis Hypothyroidism, acquired- Primary Unspecified hypothyroidism Impaired concentration Anxiety disorder, unspecified type Dysmetabolic syndrome Dysmetabolic Syndrome X Kidney stone Calculus of kidney Obesity, Class II, BMI 35-39.9 Obesity, unspecified Kidney stone Calculus of kidney documented in [facility]* Diagnosis Right ureteral stone- Primary Calculus of ureter Acute cystitis without hematuria Acute cystitis Right nephrolithiasis documented in this encounter [facility] note* Diagnosis Onset Date Resolution Status Vaginitis noneactive [facility] Work Phone: Evaluation note* Diagnosis Impaired concentration Obesity, Class II, BMI 35-39.9 Obesity, unspecified documented in this encounter [facility] note* Diagnosis Encounter for [facility] Anxiety disorder, unspecified type- Primary Obesity, Class II, BMI 35-39.9 Obesity, unspecified Impaired concentration [facility] Diagnosis Obesity, Class II, BMI 35-39.9 Obesity, unspecified Impaired concentration [facility]* Diagnosis Arthralgia, unspecified joint- Primary Myalgia Mylagia and myositis, unspecified Toe swelling Swelling of limb Finger swelling Swelling of limb Chronic midline low back pain without sciatica Acute midline thoracic back pain Hypothyroidism, acquired Unspecified hypothyroidism Family history of osteoarthritis Family history of other musculoskeletal diseases Pain in both hands Family history of rheumatoid arthritis Family history of arthritis Obesity, Class II, BMI 35-39.9 Obesity, unspecified documented [facility]* Diagnosis Onset Date Resolution Status Vaginitis noneactive Ptosis acute Cerebral aneurysm chronic Migraine headache with aura chronic [facility] Work Phone: Evaluation note* Diagnosis Ureteral stone [N20.1]- Primary Calculus of ureter Calculus of kidney Acute cystitis without hematuria Acute cystitis [facility] Diagnosis Right ureteral stone Calculus of ureter documented [facility]* Diagnosis Calculus of kidney documented in [facility]* Diagnosis Vitamin B12 deficiency- Primary Other B-complex deficiencies Obesity, Class II, BMI 35-39.9 Obesity, unspecified Impaired concentration Anxiety disorder, unspecified type Dermatofibroma Benign neoplasm of skin, site unspecified Finger swelling Swelling of limb Stiffness of hand joint, unspecified laterality [facility]* Diagnosis Erythromelalgia (HCC)- Primary Erythromelalgia Finger swelling Swelling of limb Family history of rheumatoid arthritis Family history of arthritis Lichen sclerosus Circumscribed scleroderma Fibromyalgia Mylagia and myositis, unspecified [facility] Diagnosis Impaired concentration [facility] Diagnosis Impaired concentration- Primary Anxiety disorder, unspecified type PRASHANTH (generalized anxiety disorder) Generalized anxiety disorder Arthralgia, unspecified joint Myalgia Mylagia and myositis, unspecified Situational anxiety Other anxiety states [facility] Diagnosis Anxiety disorder, unspecified type- Primary Vitamin B12 deficiency Other B-complex deficiencies Impaired concentration Obesity, Class II, BMI 35-39.9 Obesity, unspecified Endometriosis Endometriosis, site unspecified Right lower quadrant abdominal pain Abdominal pain, right lower quadrant documented [facility]* Diagnosis Obesity, Class II, BMI 35-39.9 Obesity, unspecified Arthralgia, unspecified joint Myalgia Mylagia and myositis, unspecified Toe swelling Swelling of limb Hypothyroidism, acquired Unspecified hypothyroidism Family history of osteoarthritis Family history of other musculoskeletal diseases Family history of rheumatoid arthritis Family history of arthritis Finger swelling Swelling of limb Pain in both hands Chronic midline low back pain without sciatica Acute midline thoracic back pain documented in this [facility]* Diagnosis Arthralgia, unspecified joint Myalgia Mylagia and myositis, unspecified documented [facility]* Diagnosis Endometriosis Endometriosis, site unspecified Right lower quadrant abdominal pain Abdominal pain, right lower quadrant [facility]* Diagnosis Bronchitis Bronchitis, not specified as acute or chronic Hoarse Dysphonia Persistent cough Cough documented in this [facility]* Diagnosis Arthralgia, unspecified joint Myalgia Mylagia and myositis, unspecified [facility]* Diagnosis Lumbar back pain Lumbago documented in this [facility]* Diagnosis Anxiety disorder, unspecified type PRASHANTH (generalized anxiety disorder) Generalized anxiety disorder documented in this [facility]* Diagnosis Hypothyroidism, acquired- Primary Unspecified hypothyroidism Impaired concentration Anxiety disorder, unspecified type PRASHANTH (generalized anxiety disorder) Generalized anxiety disorder Situational anxiety Other anxiety states Obesity, Class II, BMI 35-39.9 Obesity, unspecified Other migraine without status migrainosus, not intractable Vitamin B12 deficiency Other B-complex deficiencies IFG (impaired fasting glucose) Impaired fasting glucose Thyroid nodule Nontoxic uninodular goiter Dyslipidemia Other and unspecified hyperlipidemia Dysmetabolic syndrome Dysmetabolic Syndrome X Vitamin D deficiency Unspecified vitamin D deficiency Hyperinsulinemia Other specified hypoglycemia ORTEZ (dyspnea on exertion) Other dyspnea and respiratory abnormality documented [facility]* Diagnosis Hypothyroidism, acquired Unspecified hypothyroidism Thyroid nodule Nontoxic uninodular goiter documented in this [facility]* Diagnosis Vitamin D deficiency Unspecified vitamin D deficiency documented in this encounter [facility] note* Diagnosis Acute pain of right shoulder- Primary documented in this encounter [facility] note* Diagnosis Bronchitis- Primary Bronchitis, not specified as acute or chronic Viral URI with cough Acute upper respiratory infections of unspecified site documented in this encounter [facility] note* Diagnosis SOB (shortness of breath)- Primary Shortness of breath Wheeze Wheezing Acute cough Fever, unspecified fever cause Aches Generalized pain Chills Chills (without fever) Other chest pain Urinary frequency SOB (shortness of breath) Shortness of breath Wheeze Wheezing Acute cough Fever, unspecified fever cause Aches Generalized pain Chills Chills (without fever) Other chest pain documented in this encounter [facility] note* Diagnosis SOB (shortness of breath)- Primary Shortness of breath Wheeze Wheezing Acute cough Fever, unspecified fever cause Aches Generalized pain Chills Chills (without fever) Other chest pain Restrictive airway disease Other diseases of lung, not elsewhere classified Viral URI Acute upper respiratory infections of unspecified site Chronic bronchitis, unspecified chronic bronchitis type (HCC) documented in this encounter [facility] note* Diagnosis SOB (shortness of breath) Shortness of breath Wheeze Wheezing Acute cough Fever, unspecified fever cause Aches Generalized pain Chills Chills (without fever) Other chest pain documented in this encounter [facility] note* Diagnosis Influenza A- Primary Influenza with other respiratory manifestations documented in this encounter [facility] note* Diagnosis SOB (shortness of breath) Shortness of breath Wheeze Wheezing Acute cough Fever, unspecified fever cause Aches Generalized pain Chills Chills (without fever) Other chest pain documented in this encounter [facility] note* Diagnosis Rhonchi at both lung bases- Primary Impaired concentration Anxiety disorder, unspecified type PRASHANTH (generalized anxiety disorder) Generalized anxiety disorder Situational anxiety Other anxiety states Obesity, Class II, BMI 35-39.9 Obesity, unspecified Encounter for screening mammogram for malignant neoplasm of breast Other screening mammogram Community acquired pneumonia, unspecified laterality SOB (shortness of breath) Shortness of breath Wheeze Wheezing documented in this encounter [facility] note* Diagnosis Nausea- Primary Nausea alone SOB (shortness of breath) Shortness of breath Wheeze Wheezing Bilateral flank pain Abdominal pain, unspecified site documented [facility]* Diagnosis Rhonchi at both lung bases Community acquired pneumonia, unspecified laterality documented in this encounter [facility] note* Diagnosis Encounter for screening mammogram for breast cancer documented in this encounter [facility] note* Diagnosis SOB (shortness of breath) Shortness of breath Wheeze Wheezing Wheezing documented in this encounter [facility] note* Diagnosis Migraine without aura, intractable, without status migrainosus- Primary Obesity, Class II, BMI 35-39.9 Obesity, unspecified Anxiety disorder, unspecified type PRASHANTH (generalized anxiety disorder) Generalized anxiety disorder Situational anxiety Other anxiety states IFG (impaired fasting glucose) Impaired fasting glucose Insulin resistance Dysmetabolic Syndrome X documented in this encounter [facility] note* Diagnosis Myalgia- Primary Mylagia and myositis, unspecified Obesity, Class II, BMI 35-39.9 Obesity, unspecified IFG (impaired fasting glucose) Impaired fasting glucose Ptosis, left eyelid Unspecified ptosis of eyelid Fatigue, unspecified type Dyslipidemia Other and unspecified hyperlipidemia Infected sebaceous cyst Sebaceous cyst Situational insomnia Transient disorder of initiating or maintaining sleep PRASHANTH (generalized anxiety disorder) Generalized anxiety disorder Situational anxiety Other anxiety states documented in this encounter [facility] note* Diagnosis IFG (impaired fasting glucose)- Primary Impaired fasting glucose [facility] Additional Instructions Keep your appointment with your surgeon's office as instructed.[facility] Work Phone: Hospital Discharge instructions Additional Instructions Please follow-up with urology for repeat evaluation and return to the ER if you develop a fever over 100.4 or your pain is not controlled with outpatient medicationsW[facility] Work Phone: Reason for referral (narrative)* Diagnostic Procedure Only (Routine) - Pending Review Specialty Diagnoses / Procedures Referred By Juan Francisco barnett Referred To Contact BR IMAG[facility] Diagnoses Encounter for screening mammogram for breast cancer Procedures MIRELLA SCREENING W CHRISTIANO SCREENING DIGITAL BREAST TOMOSYNTHESIS BI SCREENING MAMMOGRAPHY BI 2-VIEW BREAST INC Jose Luis Alexander, DO [address] [place] [address] [facility] [address] [place] [address] Referral ID Status Reason Start Date Expiration Date Visits Requested Visits Authorized [id number] Pending Review Auto-Generat ed Referral 06/07/2021 07/07/2022 1 1 [facility] for referral (narrative)* Diagnostic Procedure Only (Routine) - Pending Review Specialty Diagnoses / Procedures Referred By Contac t Referred To Contact BR IMAGING Diagnoses Encounter for screening mammogram for breast cancer Procedures MIRELLA SCREENING SCREENING MAMMOGRAPHY BI 2-VIEW BREAST INC CAD Jose Luis Toledo, [address] [place] [address] [facility] [address] [place] [address] Referral ID Status Reason Start Date Expiration Date Visits Requested Visits Authorized [id number] Pending Review Auto-Generat ed Referral 07/23/2022 08/22/2023 1 1 [facility] for referral (narrative)* Diagnostic Procedure Only (Routine) - Authorized Specialty Diagnoses / Procedures Referred By Yueac t Referred To Contact US IMAGING Diagnoses Right ureteral stone Procedures US KIDNEY/BLADDER US RETROPERITONEAL REAL TIME W/IMAGE COMPLETE Vicky Crowley APRN.PRINTING EQUIPMENT MECHANIC APPRENTICE [address] [place] [address] [place] [address] Referral ID Status Reason Start Date Expiration Date Visits Requested Visits Authorized [id number] Authorized Auto-Generat ed Referral 03/10/2024 1 1 Electronically signed by Vicky Crowley NETWORKING SPECIALIST.PRINTING EQUIPMENT MECHANIC APPRENTICE at 02/09/2023 11:37 AM EDT * Diagnostic Procedure Only (Routine) - Pending Review Specialty Diagnoses / Procedures Referred By Juan Francisco t Referred To Contact XR IMAGING Diagnoses Right ureteral stone Procedures XR ABDOMEN 1V SUPINE RADIOLOGIC EXAM ABDOMEN 1 VIEW Vicky Crowley, NETWORKING SPECIALIST.PRINTING EQUIPMENT MECHANIC APPRENTICE [address] [place] [address] [place] [address] Referral ID Status Reason Start Date Expiration Date Visits Requested Visits Authorized [id number] Pending Review Auto-Generat ed Referral 03/10/2024 1 1 [facility] for referral (narrative)* Diagnostic Procedure Only (Routine) - Closed Specialty Diagnoses / Procedures Referred By Contac t Referred To Contact US IMAGING Diagnoses Right ureteral stone Procedures US KIDNEY/BLADDER US RETROPERITONEAL REAL TIME W/IMAGE COMPLETE Vicky Crowley, EMORY.PRINTING EQUIPMENT MECHANIC APPRENTICE [address] [place] [address] [place] [address] Referral ID Status Reason Start Date Expiration Date V isits Requested Visits Authorized [id number] Closed Auto-Generate d Referral 02/09/2023 03/10/2024 1 1 [facility] for referral (narrative)* Diagnostic Procedure Only (Routine) - Closed Specialty Diagnoses / Procedures Referred By Contac t Referred To Contact US IMAGING Diagnoses Hair loss Thyroid nodule Procedures US THYROID/PARATHYROID US SOFT TISSUE HEAD & NECK REAL TIME IMGE DOCM Jose Luis Toledo, DO [address] [place] [address] [place] [address] Referral ID Status Reason Start Date Expiration Date V isits Requested Visits Authorized [id number] Closed Auto-Generate d Referral 05/12/2022 06/11/2023 1 1 [facility] for referral (narrative)* Diagnostic Procedure Only (Routine) - Closed Specialty Diagnoses / Procedures Referred By Contac t Referred To Contact XR IMAGING Diagnoses Sacral pain Chronic midline low back pain without sciatica Procedures XR LUMBAR GENERAL 3V AP/LAT/L5-S1 RADEX SPINE LUMBOSACRAL 2/3 VIEWS Jose Luis Toledo, DO [address] [place] [address] [place] [address] Referral ID Status Reason Start Date Expiration Date V isits Requested Visits Authorized [id number] Closed Auto-Generate d Referral 05/12/2022 06/11/2023 1 1 [facility] for referral (narrative)* Diagnostic Procedure Only (Routine) - Closed Specialty Diagnoses / Procedures Referred By Contac t Referred To Contact XR IMAGING Diagnoses Right ureteral stone Procedures XR ABDOMEN 1V SUPINE RADIOLOGIC EXAM ABDOMEN 1 VIEW Vicky Crowley, NETWORKING SPECIALIST.PRINTING EQUIPMENT MECHANIC APPRENTICE [address] [place] [address] [place] [address] Referral ID Status Reason Start Date Expiration Date V isits Requested Visits Authorized [id number] Closed Auto-Generate d Referral 02/09/2023 03/10/2024 1 1 Electronically signed by Vicky Crowley NETWORKING SPECIALIST.PRINTING EQUIPMENT MECHANIC APPRENTICE at 02/16/2023 8:45 AM EDT [facility] for referral (narrative)* Diagnostic Procedure Only (Routine) - Closed Specialty Diagnoses / Procedures Referred By Contac t Referred To Contact XR IMAGING Diagnoses Sacral pain Chronic midline low back pain without sciatica Procedures XR SACRUM/COCCYX 3V AP/LAT RADEX SACRUM & COCCYX MINIMUM 2 VIEWS Jose Luis Toledo, [address] [place] [address] [place] [address] Referral ID Status Reason Start Date Expiration Date V isits Requested Visits Authorized [id number] Closed Auto-Generate d Referral 05/12/2022 06/11/2023 1 1 [facility] for referral (narrative)* Diagnostic Procedure Only (Routine) - Pending Review Specialty Diagnoses / Procedures Referred By Contac t Referred To Contact XR IMAGING Diagnoses Right ureteral stone Procedures XR ABDOMEN 1V SUPINE RADIOLOGIC EXAM ABDOMEN 1 VIEW Nelida Irving, NETWORKING SPECIALIST.PRINTING EQUIPMENT MECHANIC APPRENTICE [address] [facility] [address] [place] [address] [place] [address] Referral ID Status Reason Start Date Expiration Date Visits Requested Visits Authorized [id number] Pending Review Auto-Generat ed Referral 09/22/2023 04/22/2024 1 1 [facility] for referral (narrative)* Diagnostic Procedure Only (Routine) - Pending Review Specialty Diagnoses / Procedures Referred By Contac t Referred To Contact BR IMAGING Diagnoses Encounter for screening mammogram for breast cancer Procedures MIRELLA SCREENING SCREENING MAMMOGRAPHY BI 2-VIEW BREAST INC CAD Jose Luis Toledo, [address] [place] [address] [facility] [address] [place] [address] Referral ID Status Reason Start Date Expiration Date Visits Requested Visits Authorized [id number] Pending Review Auto-Generat ed Referral 07/01/2023 07/30/2024 1 1 [facility] for referral (narrative)* Diagnostic Procedure Only (Routine) - Pending Review Specialty Diagnoses / Procedures Referred By Contac t Referred To Contact XR IMAGING Diagnoses Calculus of kidney Procedures XR ABDOMEN 1V SUPINE RADIOLOGIC EXAM ABDOMEN 1 VIEW Nelida Irving APRN.PRINTING EQUIPMENT MECHANIC APPRENTICE [address] [address] [place] [address] Referral ID Status Reason Start Date Expiration Date Visits Requested Visits Authorized [id number] Pending Review Auto-Generat ed Referral 09/22/2023 10/21/2024 1 1 * MRI/CT (Routine) - Authorized Specialty Diagnoses / Procedures Referred By Contac t Referred To Contact CT IMAGING Diagnoses Calculus of kidney Procedures CT ABD/PEL WO IVCON CT ABD & PELVIS W/O CONTRAST Nelida Irving APRN.PRINTING EQUIPMENT MECHANIC APPRENTICE [address] [address] [place] [address] Referral ID Status Reason Start Date Expiration Date Visits Requested Visits Authorized [id number] Authorized Auto-Generat ed Referral 09/22/2023 04/26/2024 2 2 [facility] for referral (narrative)* Diagnostic Procedure Only (Routine) - Closed Specialty Diagnoses / Procedures Referred By Contac t Referred To Contact XR IMAGING Diagnoses Right ureteral stone Procedures XR ABDOMEN 1V SUPINE RADIOLOGIC EXAM ABDOMEN 1 VIEW Nelida Irving APRN.PRINTING EQUIPMENT MECHANIC APPRENTICE [address] [address] [place] [address] Referral ID Status Reason Start Date Expiration Date V isits Requested Visits Authorized [id number] Closed Auto-Generate d Referral 09/17/2023 04/22/2024 1 1 [facility] for referral (narrative)* Diagnostic Procedure Only (Urgent) - Closed Specialty Diagnoses / Procedures Referred By Contac t Referred To Contact XR IMAGING Diagnoses Obesity, Class II, BMI 35-39.9 Arthralgia, unspecified joint Myalgia Chronic midline low back pain without sciatica Acute midline thoracic back pain Hypothyroidism, acquired Family history of osteoarthritis Family history of rheumatoid arthritis Procedures XR THORACIC GENERAL 3V AP/LAT/SWIMMERS RADEX SPINE THORACIC 3 VIEWS Dee Flores APRN.PRINTING EQUIPMENT MECHANIC APPRENTICE [address] [place] [address] [place] [address] Referral ID Status Reason Start Date Expiration Date V isits Requested Visits Authorized [id number] Closed Auto-Generate d Referral 08/10/2023 09/08/2024 1 1 * Diagnostic Procedure Only (Urgent) - Closed Specialty Diagnoses / Procedures Referred By Contac t Referred To Contact XR IMAGING Diagnoses Obesity, Class II, BMI 35-39.9 Arthralgia, unspecified joint Myalgia Chronic midline low back pain without sciatica Acute midline thoracic back pain Hypothyroidism, acquired Family history of osteoarthritis Family history of rheumatoid arthritis Procedures XR LUMBAR GENERAL 3V AP/LAT/L5-S1 RADEX SPINE LUMBOSACRAL 2/3 VIEWS Dee Flores APRN.PRINTING EQUIPMENT MECHANIC APPRENTICE [address] [place] [address] [place] [address] Referral ID Status Reason Start Date Expiration Date V isits Requested Visits Authorized [id number] Closed Auto-Generate d Referral 08/10/2023 09/08/2024 1 1 * Diagnostic Procedure Only (Urgent) - Closed Specialty Diagnoses / Procedures Referred By Contac t Referred To Contact XR IMAGING Diagnoses Obesity, Class II, BMI 35-39.9 Arthralgia, unspecified joint Myalgia Finger swelling Hypothyroidism, acquired Family history of osteoarthritis Pain in both hands Family history of rheumatoid arthritis Procedures XR HAND GENERAL 3V PA/LAT/OBL BILATERAL RADEX HAND MINIMUM 3 VIEWS Dee Flores APRN.PRINTING EQUIPMENT MECHANIC APPRENTICE [address] [place] [address] [place] [address] Referral ID Status Reason Start Date Expiration Date V isits Requested Visits Authorized [id number] Closed Auto-Generate d Referral 08/10/2023 09/08/2024 1 1 * Diagnostic Procedure Only (Urgent) - Closed Specialty Diagnoses / Procedures Referred By Contac t Referred To Contact XR IMAGING Diagnoses Obesity, Class II, BMI 35-39.9 Arthralgia, unspecified joint Myalgia Toe swelling Hypothyroidism, acquired Family history of osteoarthritis Family history of rheumatoid arthritis Procedures XR FOOT GENERAL 3V AP/LAT/OBL BILATERAL RADEX FOOT COMPLETE MINIMUM 3 VIEWS Dee Flores APRN.PRINTING EQUIPMENT MECHANIC APPRENTICE [address] [place] [address] [place] [address] Referral ID Status Reason Start Date Expiration Date V isits Requested Visits Authorized [id number] Closed Auto-Generate d Referral 08/10/2023 09/08/2024 1 1 [facility] for referral (narrative)* Diagnostic Procedure Only (Routine) - Closed Specialty Diagnoses / Procedures [facility] To Contact XR IMAGING Diagnoses Lumbar back pain Procedures XR LUMBAR GENERAL 3V AP/LAT/L5-S1 X-RAY L-S SPINE AP/LATERAL Shobha Perez APRN.CNP [address] [place] [address] [place] [address] Referral ID Status Reason Start Date Expiration Date V isits Requested Visits Authorized [id number] Closed Auto-Generate d Referral 12/03/2020 01/02/2022 1 1 [facility] for referral (narrative)* Outpatient Procedure (Routine) - Authorized Specialty Diagnoses / Procedures [facility] Diagnoses Dyslipidemia ORTEZ (dyspnea on exertion) Procedures ECHO ECHO TTHRC R-T 2D W/WOM-MODE COMPL SPEC&COLR D Jose Luis Toledo DO [address] [place] [address] [facility] [address] [place] [address] Referral ID Status Reason Start Date Expiration Date Visits Requested Visits Authorized [id number] Authorized Auto-Generat ed Referral 04/04/2024 05/03/2024 1 1 * Medication Prior Authorization - Closed Specialty Diagnoses / Procedures [facility] Ref[facility] To Contact Diagnoses IFG (impaired fasting glucose) Dyslipidemia Dysmetabolic syndrome Hyperinsulinemia Jose Luis Toledo DO [address] [place] [address] Referral ID Status Reason Start Date Expiration Date Visits Re quested Visits Authorized [id number] Closed 1 1 * Diagnostic Procedure Only (Routine) - Authorized Specialty Diagnoses / Procedures [facility] To Contact US IMAGING Diagnoses Hypothyroidism, acquired Thyroid nodule Procedures US THYROID/PARATHYROID US SOFT TISSUE HEAD & NECK REAL TIME IMGE DOCM Jose Luis Toledo, DO [address] [place] [address] [place] [address] Referral ID Status Reason Start Date Expiration Date Visits Requested Visits Authorized [id number] Authorized Auto-Generat ed Referral 04/04/2024 05/04/2025 1 1 [facility] for referral (narrative)No reason for referral [facility] Narrative* Diagnostic Procedure Only (Routine) - Closed Specialty Diagnoses / Procedures Referred By Contac t Referred To Contact XR IMAGING Diagnoses Sacral pain Chronic midline low back pain without sciatica Procedures XR LUMBAR GENERAL 3V AP/LAT/L5-S1 RADEX SPINE LUMBOSACRAL 2/3 VIEWS Jose Luis Toledo, DO [address] [place] [address] [place] [address] Referral ID Status Reason Start Date Expiration Date V isits Requested Visits Authorized [id number] Closed Auto-Generate d Referral 05/12/2022 06/11/2023 1 1 [facility] for visit Narrative* Diagnostic Procedure Only (Routine) - Closed Specialty Diagnoses / Procedures Referred By Contac t Referred To Contact XR IMAGING Diagnoses Right ureteral stone Procedures XR ABDOMEN 1V SUPINE RADIOLOGIC EXAM ABDOMEN 1 VIEW Vicky Crowley, NETWORKING SPECIALIST.PRINTING EQUIPMENT MECHANIC APPRENTICE [address] [place] [address] [place] [address] Referral ID Status Reason Start Date Expiration Date V isits Requested Visits Authorized [id number] Closed Auto-Generate d Referral 02/09/2023 03/10/2024 1 1 [facility] for visit Narrative* Diagnostic Procedure Only (Routine) - Closed Specialty Diagnoses / Procedures Referred By Contac t Referred To Contact XR IMAGING Diagnoses Sacral pain Chronic midline low back pain without sciatica Procedures XR SACRUM/COCCYX 3V AP/LAT RADEX SACRUM & COCCYX MINIMUM 2 VIEWS Jose Luis Toledo, DO [address] [place] [address] [place] [address] Referral ID Status Reason Start Date Expiration Date V isits Requested Visits Authorized [id number] Closed Auto-Generate d Referral 05/12/2022 06/11/2023 1 1 [facility] for visit Narrative* Diagnostic Procedure Only (Routine) - Closed Specialty Diagnoses / Procedures Referred By Contac t Referred To Contact XR IMAGING Diagnoses Right ureteral stone Procedures XR ABDOMEN 1V SUPINE RADIOLOGIC EXAM ABDOMEN 1 VIEW Nelida Irving, NETWORKING SPECIALIST.PRINTING EQUIPMENT MECHANIC APPRENTICE [address] [address] [place] [address] Referral ID Status Reason Start Date Expiration Date V isits Requested Visits Authorized [id number] Closed Auto-Generate d Referral 09/17/2023 04/22/2024 1 1 [facility] for visit Narrative* Diagnostic Procedure Only (Urgent) - Closed Specialty Diagnoses / Procedures Referred By Contac t Referred To Contact XR IMAGING Diagnoses Obesity, Class II, BMI 35-39.9 Arthralgia, unspecified joint Myalgia Chronic midline low back pain without sciatica Acute midline thoracic back pain Hypothyroidism, acquired Family history of osteoarthritis Family history of rheumatoid arthritis Procedures XR THORACIC GENERAL 3V AP/LAT/SWIMMERS RADEX SPINE THORACIC 3 VIEWS Dee Flores, NETWORKING SPECIALIST.PRINTING EQUIPMENT MECHANIC APPRENTICE [address] [place] [address] [place] [address] Referral ID Status Reason Start Date Expiration Date V isits Requested Visits Authorized [id number] Closed Auto-Generate d Referral 08/10/2023 09/08/2024 1 1 [facility] for visit Narrative* Diagnostic Procedure Only (Routine) - Closed Specialty Diagnoses / Procedures Referred By Contac t Referred To Contact XR IMAGING Diagnoses Lumbar back pain Procedures XR LUMBAR GENERAL 3V AP/LAT/L5-S1 X-RAY L-S SPINE AP/LATERAL Shobha Perez, NETWORKING SPECIALIST.PRINTING EQUIPMENT MECHANIC APPRENTICE [address] [place] [address] [place] [address] Referral ID Status Reason Start Date Expiration Date V isits Requested Visits Authorized [id number] Closed Auto-Generate d Referral 12/03/2020 01/02/2022 1 1 [facility] Summary Purpose Family History No Family History Records Found Relationship Condition Age at Onset Recorded Date/T miri Not Specified Cardiac disease Unknown Malignant neoplasm of breast Unknown Disorder of thyroid Unknown grandmother Hypertension Unknown brother Diabetes mellitus Unknown grandfather Cerebrovascular accident (CVA) Unknown father Hypertension Unknown mother Supraventricular tachycardia Unknown Relationship Condition Age at Onset Recorded Date/T miri grandmother Hypertension Unknown brother Diabetes mellitus Unknown grandfather Cerebrovascular accident (CVA) Unknown Alcoholism Unknown Hemorrhagic disorder Unknown Deep vein thrombosis (DVT) Unknown father Hypertension Unknown Anxiety Unknown Arthritis Unknown Disorder of intestine Unknown Depression Unknown High blood cholesterol Unknown Disorder of thyroid Unknown mother Supraventricular tachycardia Unknown Complication of anesthesia Unknown Angina pectoris Unknown Rheumatoid arthritis Unknown Malignant neoplasm of breast Unknown Myocardial infarction Unknown Cardiac disease Unknown Hypertension Unknown Kidney disorder Unknown Advance Directives No Advanced Directives Records Found Advance Directive Response Recorded Date/ Time Living Will No October 25, 2020 1 1:57pm Power of Manager Trading No October 25, 2020 11:57pm Documents on File Type Date Recorded Patient Mental Retardation Nurse Expl anation Advance Directive(s) 06/24/2019 2:58 PM Advance Directive Response Recorded Date/ Time Living Will No August 15, 2021 10:16am Power of Manager Trading No August 15 10:16am Latest Code Status on File Code Status Date Activated Date Inactivated Comments Full Code 01/27/2022 10:54 AM Advance Directive Response Recorded Date/ Time Living Will No January 30 8:10am Power of Manager Trading No January 30 8:10am Advance Directive Response Recorded Date/ Time Living Will No January 30 7:10am Power of Manager Trading No January 30 7:10am Advance Directive Response Recorded Date/ Time Living Will No February 14 5:40am Power of Manager Trading No February 14, 2023 5:40am Advance Directive Response Recorded Date/ Time Living Will No February 24 8:37pm Power of Manager Trading No February 24, 2023 8:37pm Advance Directive Response Recorded Date/ Time Living Will No February 24 7:37pm Power of Manager Trading No February 24, 2023 7:37pm Advance Directive Response Recorded Date/ Time Living Will No November 25, 2023 10:30pm Do you have a Healthcare Power of Manager Trading? No November 25, 2023 10:30pm Chief Complaint and Reason for Visit Chief Complaint POSSIBLE UTI SCREENING RLQ pain RLQ PELVIC PAIN Reason for Visit Mid back pain on lef t side Urinary frequency Brain aneurysm History of endometriosis PCOS (polycystic ovarian syndrome) Pelvic pain Chief Complaint POSSIBLE UTI SCREENING RLQ pain RLQ PELVIC PAIN consult for possible cyst removal BRAIN ANEURYSM PREOP PREOP Reason for Visit Mid back pain on lef t side Urinary frequency Brain aneurysm History of endometriosis PCOS (polycystic ovarian syndrome) Pelvic pain Pelvic pain Right ovarian cyst H/O ovarian cystectomy History of total vaginal hysterectomy (TVH) Hx of protein S deficiency Pelvic pain Right ovarian cyst Chief Complaint POSSIBLE UTI SCREENING RLQ pain RLQ PELVIC PAIN consult for possible cyst removal BRAIN ANEURYSM PREOP PREOP EORDER SMELL TEST Reason for Visit Mid back pain on lef t side Urinary frequency Brain aneurysm History of endometriosis PCOS (polycystic ovarian syndrome) Pelvic pain Pelvic pain Right ovarian cyst Anosmia Cerebral aneurysm Hypercoagulable state Migraine headache with aura H/O ovarian cystectomy History of total vaginal hysterectomy (TVH) Hx of protein S deficiency Pelvic pain Right ovarian cyst Anosmia Chief Complaint POSSIBLE UTI SCREENING RLQ pain RLQ PELVIC PAIN consult for possible cyst removal BRAIN ANEURYSM PREOP PREOP EORDER SMELL TEST post op ANOSMIA ANOSMIA/CEREBRAL ANEURYSM Reason for Visit Mid back pain on lef t side Urinary frequency Brain aneurysm History of endometriosis PCOS (polycystic ovarian syndrome) Pelvic pain Pelvic pain Right ovarian cyst Anosmia Cerebral aneurysm Hypercoagulable state Migraine headache with aura H/O ovarian cystectomy History of total vaginal hysterectomy (TVH) Hx of protein S deficiency Pelvic pain Right ovarian cyst Anosmia History of endometriosis Chief Complaint POSSIBLE UTI SCREENING RLQ pain RLQ PELVIC PAIN consult for possible cyst removal BRAIN ANEURYSM PREOP PREOP EORDER SMELL TEST post op ANOSMIA ANOSMIA/CEREBRAL ANEURYSM 6 WK FU PRIORITY Reason for Visit Mid back pain on lef t side Urinary frequency Brain aneurysm History of endometriosis PCOS (polycystic ovarian syndrome) Pelvic pain Pelvic pain Right ovarian cyst Anosmia Cerebral aneurysm Hypercoagulable state Migraine headache with aura H/O ovarian cystectomy History of total vaginal hysterectomy (TVH) Hx of protein S deficiency Pelvic pain Right ovarian cyst Anosmia History of endometriosis Anosmia Cerebral aneurysm Hypercoagulable state Migraine headache with aura Chief Complaint SCREENING RLQ pain RLQ PELVIC PAIN consult for possible cyst removal BRAIN ANEURYSM PREOP PREOP EORDER SMELL TEST post op ANOSMIA ANOSMIA/CEREBRAL ANEURYSM 6 WK FU PRIORITY Lichen sclerosus Reason for Visit Brain aneurysm History of endometriosis PCOS (polycystic ovarian syndrome) Pelvic pain Pelvic pain Right ovarian cyst Anosmia Cerebral aneurysm Hypercoagulable state Migraine headache with aura H/O ovarian cystectomy History of total vaginal hysterectomy (TVH) Hx of protein S deficiency Pelvic pain Right ovarian cyst Anosmia History of endometriosis Anosmia Cerebral aneurysm Hypercoagulable state Migraine headache with aura Lichen sclerosus Chief Complaint consult for possible cyst removal BRAIN ANEURYSM PREOP PREOP EORDER SMELL TEST post op ANOSMIA ANOSMIA/CEREBRAL ANEURYSM 6 WK FU PRIORITY Lichen sclerosus 4 WK MED CHECK PELVIC PAIN Reason for Visit Pelvic pain Right ovarian cyst Anosmia Cerebral aneurysm Hypercoagulable state Migraine headache with aura H/O ovarian cystectomy History of total vaginal hysterectomy (TVH) Hx of protein S deficiency Pelvic pain Right ovarian cyst Anosmia History of endometriosis Anosmia Cerebral aneurysm Hypercoagulable state Migraine headache with aura Lichen sclerosus Routine gynecological examination Vaginitis Lichen sclerosus Pelvic pain Chief Complaint ANOSMIA ANOSMIA/CEREBRAL ANEURYSM 6 WK FU PRIORITY Lichen sclerosus 4 WK MED CHECK PELVIC PAIN EORDER 6 M FU EORDER Reason for Visit Anosmia Cerebral aneurysm Hypercoagulable state Migraine headache with aura Lichen sclerosus Routine gynecological examination Vaginitis Lichen sclerosus Pelvic pain Chief Complaint ANOSMIA ANOSMIA/CEREBRAL ANEURYSM 6 WK FU PRIORITY Lichen sclerosus 4 WK MED CHECK PELVIC PAIN EORDER 6 M FU EORDER Reason for Visit Anosmia Cerebral aneurysm Hypercoagulable state Migraine headache with aura Lichen sclerosus Routine gynecological examination Vaginitis Lichen sclerosus Pelvic pain Cerebral aneurysm Hypercoagulable state Migraine headache with aura Chief Complaint ANOSMIA/CEREBRAL ANE URYSM 6 WK FU PRIORITY Lichen sclerosus 4 WK MED CHECK PELVIC PAIN EORDER 6 M FU EORDER PELVIC PAIN Reason for Visit Anosmia Cerebral aneurysm Hypercoagulable state Migraine headache with aura Lichen sclerosus Routine gynecological examination Vaginitis Lichen sclerosus Pelvic pain Cerebral aneurysm Hypercoagulable state Migraine headache with aura Chief Complaint 4 WK MED CHECK PELVIC PAIN EORDER 6 M FU EORDER PELVIC PAIN ABD PAIN Reason for Visit Lichen sclerosus Pelvic pain Cerebral aneurysm Hypercoagulable state Migraine headache with aura Chief Complaint 6 M FU EORDER PELVIC PAIN ABD PAIN lichen sclerosus HRT PELVIC PAIN Reason for Visit Cerebral aneurysm Hypercoagulable state Migraine headache with aura Anxiety Sebaceous cyst Anxiety Climacteric History of total vaginal hysterectomy (TVH) Hx of protein S deficiency S/P oophorectomy Telogen effluvium Chief Complaint ABD PAIN lichen sclerosus HRT PELVIC PAIN climateric f/u Reason for Visit Anxiety Sebaceous cyst Anxiety Climacteric History of total vaginal hysterectomy (TVH) Hx of protein S deficiency S/P oophorectomy Telogen effluvium Anxiety Climacteric S/P oophorectomy Telogen effluvium Chief Complaint HRT PELVIC PAIN climateric f/u Reason for Visit Anxiety Climacteric History of total vaginal hysterectomy (TVH) Hx of protein S deficiency S/P oophorectomy Telogen effluvium Anxiety Climacteric S/P oophorectomy Telogen effluvium Chief Complaint HRT PELVIC PAIN climateric f/u CLIMACTERIC SCREENING Reason for Visit Anxiety Climacteric History of total vaginal hysterectomy (TVH) Hx of protein S deficiency S/P oophorectomy Telogen effluvium Anxiety Climacteric S/P oophorectomy Telogen effluvium Chief Complaint FLANK PAIN Chief Complaint FLANK PAIN R FLNAK PAIN Chief Complaint FLANK PAIN R FLNAK PAIN LS FLARE UP Reason for Visit Vaginitis Chief Complaint LS FLARE UP 1 Y FU EORDER Reason for Visit Vaginitis Ptosis Cerebral aneurysm Migraine headache with aura Chief Complaint Admit Date SCREENING July 25, 2024 8:1 7am Chief Complaint Admit Date LUMP ON R THIGH December 21, 2024 4: 37pm Chief Complaint Admit Date LUMP ON R THIGH December 21, 2024 4: 37pm 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) December 22, 2024 12 :33pm Reason for Visit Admit Date Infected lesion of skin December 21 4:37pm Encounter for routine gynecological exam ination December 22, 2024 12:33pm Reason for Visit Admit Date Infected lesion of skin December 21 4:37pm Infected lesion of skin December 22 12:33pm Possible exposure to STD December 22 12:33pm Urinary frequency December 22, 2024 12 :33pm Encounter for routine gynecological exam ination December 22, 2024 12:33pm Chief Complaint Admit Date LUMP ON R THIGH December 21, 2024 4: 37pm 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) December 22, 2024 12 :33pm 1 Y FU January 05, 2025 8:12am Reason for Visit Admit Date Infected lesion of skin December 21 4:37pm Infected lesion of skin December 22 12:33pm Possible exposure to STD December 22 12:33pm Urinary frequency December 22, 2024 12 :33pm Encounter for routine gynecological exam ination December 22, 2024 12:33pm Ocular myasthenia gravis January 05, 2025 8:12am Ptosis January 05, 2025 8:12am Cerebral aneurysm January 05, 2025 8:12am Migraine headache with aura January 052024 8:12am Health Concerns Infection Onset Date Last Indicated Resolved Time COVID-19 Confirmed 01/16/2022 01/16/2022 Infection Onset Date Last Indicated Resolved Time COVID-19 Confirmed 01/16/2022 01/16/2022 8:51 PM EDT Reason for Referral Specialty Diagnoses / Procedures Referred By Contac t Referred To Contact CT IMAGING Diagnoses Left lower quadrant abdominal pain Procedures CT ABD/PEL W IVCON CT ABD & PELVIS W/CONTRAST Dee Flores, NETWORKING SPECIALIST.PRINTING EQUIPMENT MECHANIC APPRENTICE [address] [place] [address] Ct Imaging Referral ID Status Reason Start Date Expiration Date Visits Requested Visits Authorized [id number] Additional Clinical Info Needed Auto-Generat ed Referral 02/27/2022 03/29/2023 1 1 Specialty Diagnoses / Procedures Referred By Contac t Referred To Contact [facility] Diagnoses Sacral pain Chronic midline low back pain without sciatica Procedures CONSULT TO PAIN MGT OFFICE/OUTPATIENT NEW HIGH MDM 60-74 MINUTES Jose Luis Toledo, DO [address] [place] [address] Anest[facility] [address] [place] [address] Referral ID Status Reason Start Date Expiration Date V isits Requested Visits Authorized [id number] Closed PCP Requested Referral 05/12/2022 05/12/2023 1 1 Specialty Diagnoses / Procedures Referred By Contac t Referred To Contact XR IMAGING Diagnoses Sacral pain Chronic midline low back pain without sciatica Procedures XR LUMBAR GENERAL 3V AP/LAT/L5-S1 RADEX SPINE LUMBOSACRAL 2/3 VIEWS Jose Luis Toledo, DO [address] [place] [address] Xr Imaging Referral ID Status Reason Start Date Expiration Date Visits Requested Visits Authorized [id number] Authorized Auto-Generat ed Referral 05/12/2022 06/11/2023 1 1 Specialty Diagnoses / Procedures Referred By Contac t Referred To Contact XR IMAGING Diagnoses Sacral pain Chronic midline low back pain without sciatica Procedures XR SACRUM/COCCYX 3V AP/LAT RADEX SACRUM & COCCYX MINIMUM 2 VIEWS Jose Luis Toledo, DO [address] [place] [address] Xr Imaging Referral ID Status Reason Start Date Expiration Date Visits Requested Visits Authorized [id number] Authorized Auto-Generat ed Referral 05/12/2022 06/11/2023 1 1 Specialty Diagnoses / Procedures Referred By Contac t Referred To Contact US IMAGING Diagnoses Hair loss Thyroid nodule Procedures US THYROID/PARATHYROID US SOFT TISSUE HEAD & NECK REAL TIME IMGE DOCM Jose Luis Toledo, DO [address] [place] [address] Us Imaging Referral ID Status Reason Start Date Expiration Date Visits Requested Visits Authorized [id number] Authorized Auto-Generat ed Referral 05/12/2022 06/11/2023 1 1 Specialty Diagnoses / Procedures Referred By Contac t Referred To Contact CT IMAGING Diagnoses Acute right flank pain History of renal stone Procedures CT FLANK WO IVCON CT ABD & PELVIS W/O CONTRAST Jose Luis Toledo, DO [address] [place] [address] Ct Imaging Referral ID Status Reason Start Date Expiration Date Visits Requested Visits Authorized [id number] Authorized Auto-Generat ed Referral 05/12/2022 07/11/2022 1 1 Specialty Diagnoses / Procedures Referred By Contac t Referred To Contact Diagnoses Right nephrolithiasis Jose Luis Toledo, DO [address] [place] [address] Referral ID Status Reason Start Date Expiration Date Visits Re quested Visits Authorized [id number] Closed 1 1 Specialty Diagnoses / Procedures Referred By Contac t Referred To Contact Diagnoses Impaired concentration 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, NETWORKING SPECIALIST.PRINTING EQUIPMENT MECHANIC APPRENTICE [address] [place] [address] Referral ID Status Reason Start Date Expiration Date Visits Re quested Visits Authorized [id number] Closed 1 1 Specialty Diagnoses / Procedures Referred By Contac t Referred To Contact Urology Diagnoses Kidney stone Gross hematuria Flank pain Procedures CONSULT TO UROLOGY OFFICE/OUTPATIENT [facility] MDM 60-74 MINUTES 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, NETWORKING SPECIALIST.PRINTING EQUIPMENT MECHANIC APPRENTICE [address] [place] [address] Referral ID Status Reason Start Date Expiration Date Visits Requested Visits Authorized [id number] Authorized PCP Requested Referral 02/02/2023 02/02/2024 1 1 Specialty Diagnoses / Procedures Referred By Contac t Referred To Contact CT IMAGING Diagnoses Kidney stone Gross hematuria Flank pain Procedures CT FLANK WO IVCON CT ABD & PELVIS W/O CONTRAST 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, NETWORKING SPECIALIST.PRINTING EQUIPMENT MECHANIC APPRENTICE [address] [place] [address] [place] [address] Referral ID Status Reason Start Date Expiration Date Visits Requested Visits Authorized [id number] Authorized Auto-Generat ed Referral 02/02/2023 04/03/2023 1 1 Specialty Diagnoses / Procedures Referred By Contac t Referred To Contact CT IMAGING Diagnoses Acute right flank pain History of renal stone Procedures CT FLANK WO IVCON CT ABD & PELVIS W/O CONTRAST Jose Luis Toledo, DO [address] [place] [address] [place] [address] Referral ID Status Reason Start Date Expiration Date V isits Requested Visits Authorized [id number] Closed Auto-Generate d Referral 05/12/2022 07/11/2022 1 1 Specialty Diagnoses / Procedures Referred By Contac t Referred To Contact CT IMAGING Diagnoses Left lower quadrant abdominal pain Procedures CT ABD/PEL W IVCON CT ABD & PELVIS W/CONTRAST Dee Flores APRN.PRINTING EQUIPMENT MECHANIC APPRENTICE [address] [place] [address] [place] [address] Referral ID Status Reason Start Date Expiration Date V isits Requested Visits Authorized [id number] Closed Auto-Generat ed Referral Patient Cleared - Admin/Chairm an/Director advise to proceed or did not respond 02/28/2022 05/19/2022 1 1 Specialty Diagnoses / Procedures Referred By Contac t Referred To Contact Diagnoses Impaired concentration Jose Luis Toledo, DO [address] [place] [address] Referral ID Status Reason Start Date Expiration Date Visits Re quested Visits Authorized [id number] Closed 1 1 Referral ID Status Reason Start Date Expiration Date Visits Re quested Visits Authorized [id number] Closed 1 1 Referral ID Status Reason Start Date Expiration Date Visits Re quested Visits Authorized [id number] Closed 1 1 Referral ID Status Reason Start Date Expiration Date Visits Re quested Visits Authorized [id number] Closed 1 1 Specialty Diagnoses / Procedures Referred By Contac t Referred To Contact Rheumatology Diagnoses Arthralgia, unspecified joint Myalgia Toe swelling Finger swelling Chronic midline low back pain without sciatica Acute midline thoracic back pain Hypothyroidism, acquired Family history of osteoarthritis Pain in both hands Family history of rheumatoid arthritis Procedures CONSULT TO RHEUM/IMMUN DISEASE OFFICE/OUTPATIENT [facility] 60 MINUTES Dee Flores APRN.PRINTING EQUIPMENT MECHANIC APPRENTICE [address] [place] [address] Referral ID Status Reason Start Date Expiration Date Visits Requested Visits Authorized [id number] Authorized PCP Requested Referral 08/10/2023 08/09/2024 1 1 Specialty Diagnoses / Procedures Referred By Contac t Referred To Contact XR IMAGING Diagnoses Obesity, Class II, BMI 35-39.9 Arthralgia, unspecified joint Myalgia Chronic midline low back pain without sciatica Acute midline thoracic back pain Hypothyroidism, acquired Family history of osteoarthritis Family history of rheumatoid arthritis Procedures XR THORACIC GENERAL 3V AP/LAT/SWIMMERS RADEX SPINE THORACIC 3 VIEWS Dee Flores, NETWORKING SPECIALIST.PRINTING EQUIPMENT MECHANIC APPRENTICE [address] [place] [address] [place] [address] Referral ID Status Reason Start Date Expiration Date V isits Requested Visits Authorized [id number] Closed Auto-Generate d Referral 08/10/2023 09/08/2024 1 1 Specialty Diagnoses / Procedures Referred By Contac t Referred To Contact XR IMAGING Diagnoses Obesity, Class II, BMI 35-39.9 Arthralgia, unspecified joint Myalgia Chronic midline low back pain without sciatica Acute midline thoracic back pain Hypothyroidism, acquired Family history of osteoarthritis Family history of rheumatoid arthritis Procedures XR LUMBAR GENERAL 3V AP/LAT/L5-S1 RADEX SPINE LUMBOSACRAL 2/3 VIEWS Dee Flores APRN.PRINTING EQUIPMENT MECHANIC APPRENTICE [address] [place] [address] [place] [address] Referral ID Status Reason Start Date Expiration Date V isits Requested Visits Authorized [id number] Closed Auto-Generate d Referral 08/10/2023 09/08/2024 1 1 Specialty Diagnoses / Procedures Referred By Contac t Referred To Contact XR IMAGING Diagnoses Obesity, Class II, BMI 35-39.9 Arthralgia, unspecified joint Myalgia Finger swelling Hypothyroidism, acquired Family history of osteoarthritis Pain in both hands Family history of rheumatoid arthritis Procedures XR HAND GENERAL 3V PA/LAT/OBL BILATERAL RADEX HAND MINIMUM 3 VIEWS Dee Flores, NETWORKING SPECIALIST.PRINTING EQUIPMENT MECHANIC APPRENTICE [address] [place] [address] [place] [address] Referral ID Status Reason Start Date Expiration Date V isits Requested Visits Authorized [id number] Closed Auto-Generate d Referral 08/10/2023 09/08/2024 1 1 Specialty Diagnoses / Procedures Referred By Contac t Referred To Contact XR IMAGING Diagnoses Obesity, Class II, BMI 35-39.9 Arthralgia, unspecified joint Myalgia Toe swelling Hypothyroidism, acquired Family history of osteoarthritis Family history of rheumatoid arthritis Procedures XR FOOT GENERAL 3V AP/LAT/OBL BILATERAL RADEX FOOT COMPLETE MINIMUM 3 VIEWS Dee Flores, NETWORKING SPECIALIST.PRINTING EQUIPMENT MECHANIC APPRENTICE [address] [place] [address] [place] [address] Referral ID Status Reason Start Date Expiration Date V isits Requested Visits Authorized [id number] Closed Auto-Generate d Referral 08/10/2023 09/08/2024 1 1 Referral ID Status Reason Start Date Expiration Date Visits Re quested Visits Authorized [id number] Closed 1 1 Specialty Diagnoses / Procedures Referred By Contac t Referred To Contact Diagnoses Vitamin B12 deficiency Jose Luis Toledo L, DO [address] [place] [address] Referral ID Status Reason Start Date Expiration Date Visits Re quested Visits Authorized [id number] Closed 1 1 Specialty Diagnoses / Procedures Referred By Contac t Referred To Contact Dermatology Diagnoses Lichen sclerosus Procedures CONSULT TO DERMATOLOGY Naveen Mora MD [address] [place] [address] Referral ID Status Reason Start Date Expiration Date Visits Requested Visits Authorized [id number] Ref Not Required PCP Requested Referral 11/11/2023 11/10/2024 1 1 Specialty Diagnoses / Procedures Referred By Contac t Referred To Contact US IMAGING Diagnoses Finger swelling Procedures US HAND/WRIST SYNOVIAL SCREEN LEFT US COMPL JOINT R-T W/IMAGE DOCUMENTATION Naveen Mora MD [address] [place] [address] [place] [address] Referral ID Status Reason Start Date Expiration Date Visits Requested Visits Authorized [id number] New Request Auto-Generat ed Referral 11/11/2023 12/10/2024 1 1 Specialty Diagnoses / Procedures Referred By Contac t Referred To Contact US IMAGING Diagnoses Finger swelling Procedures US HAND/WRIST SYNOVIAL SCREEN RIGHT US COMPL JOINT R-T W/IMAGE DOCUMENTATION Naveen Mora MD [address] [place], [place] [id number] [place] [address] Referral ID Status Reason Start Date Expiration Date Visits Requested Visits Authorized [id number] New Request Auto-Generat ed Referral 11/11/2023 12/10/2024 1 1 Specialty Diagnoses / Procedures Referred By Contac t Referred To Contact CT IMAGING Diagnoses Endometriosis Right lower quadrant abdominal pain Procedures CT ABD/PEL W IVCON CT ABD & PELVIS W/CONTRAST Jose Luis Toledo, [address] [place] [address] [place] [address] Referral ID Status Reason Start Date Expiration Date V isits Requested Visits Authorized [id number] Open Auto-Generate d Referral 01/04/2024 02/02/2025 2 2 Referral ID Status Reason Start Date Expiration Date Visits Re quested Visits Authorized [id number] Closed 1 1 Referral ID Status Reason Start Date Expiration Date V isits Requested Visits Authorized [id number] Closed Auto-Generate d Referral 01/06/2024 02/04/2024 2 2 Specialty Diagnoses / Procedures Referred By Contac t Referred To Contact Diagnoses Acute pain of right shoulder Procedures CONSULT TO MASSAGE THERAPY OFFICE/OUTPATIENT NEW HIGH MDM 60 MINUTES 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, NETWORKING SPECIALIST.PRINTING EQUIPMENT MECHANIC APPRENTICE [address] [place] [address] Referral ID Status Reason Start Date Expiration Date Visits Requested Visits Authorized [id number] Pending Review PCP Requested Referral 05/05/2024 05/05/2025 1 1 Specialty Diagnoses / Procedures Referred By Contac t Referred To Contact XR IMAGING Diagnoses Acute pain of right shoulder Procedures XR SHOULDER GENERAL 3V OR MORE AP/TRUE AP/OTHER RIGHT RADEX SHOULDER COMPLETE MINIMUM 2 VIEWS 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, NETWORKING SPECIALIST.PRINTING EQUIPMENT MECHANIC APPRENTICE [address] [place] [address] [place] [address] Referral ID Status Reason Start Date Expiration Date Visits Requested Visits Authorized [id number] New Request Auto-Generat ed Referral 05/05/2024 06/04/2025 1 1 Medications Administered Section Inactive Administered [...] ized section and content) DATE CREATED AUTHOR 10/16/2017 [facility] DATE CREATED AUTHOR AUTHOR'S ORGANIZ ATION 05/19/2020 [facility] DATE CREATED AUTHOR AUTHOR'S ORGANIZ ATION 02/05/2022 [facility] DATE CREATED AUTHOR AUTHOR'S ORGANIZ ATION 02/12/2023 [facility] DATE CREATED AUTHOR AUTHOR'S ORGANIZ ATION 02/20/2023 [facility] DATE CREATED AUTHOR AUTHOR'S ORGANIZ ATION 10/03/2023 [facility] DATE CREATED AUTHOR AUTHOR'S ORGANIZ ATION 01/16/2025 [facility] DATE CREATED AUTHOR AUTHOR'S ORGANIZ ATION 01/18/2025 [facility] Goals (unrecognized section and content) Goals may be documented in a n alternate sectionGoals may be documented in an alternate sectionGoals may be documented in an alternate sectionGoals may be documented in an alternate sectionGoals may be documented in an alternate sectionGoals may be documented in an alternate sectionGoals may be documented in an alternate sectionGoals may be documented in an alternate sectionGoals may be documented in an alternate sectionGoals may be documented in an alternate sectionGoals may be documented in an alternate sectionGoals may be documented in an alternate sectionGoals may be documented in an alternate sectionGoals may be documented in an alternate sectionGoals may be documented in an alternate sectionGoals may be documented in an alternate sectionGoals may be documented in an alternate sectionGoals may be documented in an alternate sectionGoals may be documented in an alternate sectionGoals may be documented in an alternate sectionGoals may be documented in an alternate sectionGoals may be documented in an alternate sectionGoals may be documented in an alternate section Source Comments (unrecognize d section and content) In the event this informatio n is protected by the Federal Confidentiality of Alcohol and Drug Abuse Patient Records regulations: The Federal rules restrict any use of the information to criminally investigate or prosecute any alcohol or drug abuse patient.[facility] the event this information is protected by the Federal Confidentiality of Alcohol and Drug Abuse Patient Records regulations: The Federal rules restrict any use of the information to criminally investigate or prosecute any alcohol or drug abuse patient.[facility] HospitalIn the event this information is protected by the Federal Confidentiality of Alcohol and Drug Abuse Patient Records regulations: The Federal rules restrict any use of the information to criminally investigate or prosecute any alcohol or drug abuse patient.[facility] HospitalIn the event this information is protected by the Federal Confidentiality of Alcohol and Drug Abuse Patient Records regulations: The Federal rules restrict any use of the information to criminally investigate or prosecute any alcohol or drug abuse patient.[facility] HospitalIn the event this information is protected by the Federal Confidentiality of Alcohol and Drug Abuse Patient Records regulations: The Federal rules restrict any use of the information to criminally investigate or prosecute any alcohol or drug abuse patient.[facility] HospitalIn the event this information is protected by the Federal Confidentiality of Alcohol and Drug Abuse Patient Records regulations: The Federal rules restrict any use of the information to criminally investigate or prosecute any alcohol or drug abuse patient.[facility] HospitalIn the event this information is protected by the Federal Confidentiality of Alcohol and Drug Abuse Patient Records regulations: The Federal rules restrict any use of the information to criminally investigate or prosecute any alcohol or drug abuse patient.[facility] HospitalIn the event this information is protected by the Federal Confidentiality of Alcohol and Drug Abuse Patient Records regulations: The Federal rules restrict any use of the information to criminally investigate or prosecute any alcohol or drug abuse patient.[facility] HospitalIn the event this information is protected by the Federal Confidentiality of Alcohol and Drug Abuse Patient Records regulations: The Federal rules restrict any use of the information to criminally investigate or prosecute any alcohol or drug abuse patient.[facility] HospitalIn the event this information is protected by the Federal Confidentiality of Alcohol and Drug Abuse Patient Records regulations: The Federal rules restrict any use of the information to criminally investigate or prosecute any alcohol or drug abuse patient.[facility] HospitalIn the event this information is protected by the Federal Confidentiality of Alcohol and Drug Abuse Patient Records regulations: The Federal rules restrict any use of the information to criminally investigate or prosecute any alcohol or drug abuse patient.[facility] HospitalIn the event this information is protected by the Federal Confidentiality of Alcohol and Drug Abuse Patient Records regulations: The Federal rules restrict any use of the information to criminally investigate or prosecute any alcohol or drug abuse patient.[facility] HospitalIn the event this information is protected by the Federal Confidentiality of Alcohol and Drug Abuse Patient Records regulations: The Federal rules restrict any use of the information to criminally investigate or prosecute any alcohol or drug abuse patient.[facility] HospitalIn the event this information is protected by the Federal Confidentiality of Alcohol and Drug Abuse Patient Records regulations: The Federal rules restrict any use of the information to criminally investigate or prosecute any alcohol or drug abuse patient.[facility] HospitalIn the event this information is protected by the Federal Confidentiality of Alcohol and Drug Abuse Patient Records regulations: The Federal rules restrict any use of the information to criminally investigate or prosecute any alcohol or drug abuse patient.[facility] HospitalIn the event this information is protected by the Federal Confidentiality of Alcohol and Drug Abuse Patient Records regulations: The Federal rules restrict any use of the information to criminally investigate or prosecute any alcohol or drug abuse patient.[facility] HospitalIn the event this information is protected by the Federal Confidentiality of Alcohol and Drug Abuse Patient Records regulations: The Federal rules restrict any use of the information to criminally investigate or prosecute any alcohol or drug abuse patient.[facility] HospitalIn the event this information is protected by the Federal Confidentiality of Alcohol and Drug Abuse Patient Records regulations: The Federal rules restrict any use of the information to criminally investigate or prosecute any alcohol or drug abuse patient.[facility] HospitalIn the event this information is protected by the Federal Confidentiality of Alcohol and Drug Abuse Patient Records regulations: The Federal rules restrict any use of the information to criminally investigate or prosecute any alcohol or drug abuse patient.[facility] HospitalIn the event this information is protected by the Federal Confidentiality of Alcohol and Drug Abuse Patient Records regulations: The Federal rules restrict any use of the information to criminally investigate or prosecute any alcohol or drug abuse patient.[facility] HospitalIn the event this information is protected by the Federal Confidentiality of Alcohol and Drug Abuse Patient Records regulations: The Federal rules restrict any use of the information to criminally investigate or prosecute any alcohol or drug abuse patient.[facility] HospitalIn the event this information is protected by the Federal Confidentiality of Alcohol and Drug Abuse Patient Records regulations: The Federal rules restrict any use of the information to criminally investigate or prosecute any alcohol or drug abuse patient.[facility] HospitalIn the event this information is protected by the Federal Confidentiality of Alcohol and Drug Abuse Patient Records regulations: The Federal rules restrict any use of the information to criminally investigate or prosecute any alcohol or drug abuse patient.[facility] HospitalIn the event this information is protected by the Federal Confidentiality of Alcohol and Drug Abuse Patient Records regulations: The Federal rules restrict any use of the information to criminally investigate or prosecute any alcohol or drug abuse patient.[facility] HospitalIn the event this information is protected by the Federal Confidentiality of Alcohol and Drug Abuse Patient Records regulations: The Federal rules restrict any use of the information to criminally investigate or prosecute any alcohol or drug abuse patient.[facility] HospitalIn the event this information is protected by the Federal Confidentiality of Alcohol and Drug Abuse Patient Records regulations: The Federal rules restrict any use of the information to criminally investigate or prosecute any alcohol or drug abuse patient.[facility] HospitalIn the event this information is protected by the Federal Confidentiality of Alcohol and Drug Abuse Patient Records regulations: The Federal rules restrict any use of the information to criminally investigate or prosecute any alcohol or drug abuse patient.[facility] HospitalIn the event this information is protected by the Federal Confidentiality of Alcohol and Drug Abuse Patient Records regulations: The Federal rules restrict any use of the information to criminally investigate or prosecute any alcohol or drug abuse patient.[facility] HospitalIn the event this information is protected by the Federal Confidentiality of Alcohol and Drug Abuse Patient Records regulations: The Federal rules restrict any use of the information to criminally investigate or prosecute any alcohol or drug abuse patient.[facility] HospitalIn the event this information is protected by the Federal Confidentiality of Alcohol and Drug Abuse Patient Records regulations: The Federal rules restrict any use of the information to criminally investigate or prosecute any alcohol or drug abuse patient.[facility] HospitalIn the event this information is protected by the Federal Confidentiality of Alcohol and Drug Abuse Patient Records regulations: The Federal rules restrict any use of the information to criminally investigate or prosecute any alcohol or drug abuse patient.[facility] HospitalIn the event this information is protected by the Federal Confidentiality of Alcohol and Drug Abuse Patient Records regulations: The Federal rules restrict any use of the information to criminally investigate or prosecute any alcohol or drug abuse patient.[facility] HospitalIn the event this information is protected by the Federal Confidentiality of Alcohol and Drug Abuse Patient Records regulations: The Federal rules restrict any use of the information to criminally investigate or prosecute any alcohol or drug abuse patient.[facility] HospitalIn the event this information is protected by the Federal Confidentiality of Alcohol and Drug Abuse Patient Records regulations: The Federal rules restrict any use of the information to criminally investigate or prosecute any alcohol or drug abuse patient.[facility] HospitalIn the event this information is protected by the Federal Confidentiality of Alcohol and Drug Abuse Patient Records regulations: The Federal rules restrict any use of the information to criminally investigate or prosecute any alcohol or drug abuse patient.[facility] HospitalIn the event this information is protected by the Federal Confidentiality of Alcohol and Drug Abuse Patient Records regulations: The Federal rules restrict any use of the information to criminally investigate or prosecute any alcohol or drug abuse patient.[facility] HospitalIn the event this information is protected by the Federal Confidentiality of Alcohol and Drug Abuse Patient Records regulations: The Federal rules restrict any use of the information to criminally investigate or prosecute any alcohol or drug abuse patient.[facility] HospitalIn the event this information is protected by the Federal Confidentiality of Alcohol and Drug Abuse Patient Records regulations: The Federal rules restrict any use of the information to criminally investigate or prosecute any alcohol or drug abuse patient.[facility] HospitalIn the event this information is protected by the Federal Confidentiality of Alcohol and Drug Abuse Patient Records regulations: The Federal rules restrict any use of the information to criminally investigate or prosecute any alcohol or drug abuse patient.[facility] HospitalIn the event this information is protected by the Federal Confidentiality of Alcohol and Drug Abuse Patient Records regulations: The Federal rules restrict any use of the information to criminally investigate or prosecute any alcohol or drug abuse patient.[facility] HospitalIn the event this information is protected by the Federal Confidentiality of Alcohol and Drug Abuse Patient Records regulations: The Federal rules restrict any use of the information to criminally investigate or prosecute any alcohol or drug abuse patient.[facility] HospitalIn the event this information is protected by the Federal Confidentiality of Alcohol and Drug Abuse Patient Records regulations: The Federal rules restrict any use of the information to criminally investigate or prosecute any alcohol or drug abuse patient.[facility] HospitalIn the event this information is protected by the Federal Confidentiality of Alcohol and Drug Abuse Patient Records regulations: The Federal rules restrict any use of the information to criminally investigate or prosecute any alcohol or drug abuse patient.[facility] HospitalIn the event this information is protected by the Federal Confidentiality of Alcohol and Drug Abuse Patient Records regulations: The Federal rules restrict any use of the information to criminally investigate or prosecute any alcohol or drug abuse patient.[facility] HospitalIn the event this information is protected by the Federal Confidentiality of Alcohol and Drug Abuse Patient Records regulations: The Federal rules restrict any use of the information to criminally investigate or prosecute any alcohol or drug abuse patient.[facility] HospitalIn the event this information is protected by the Federal Confidentiality of Alcohol and Drug Abuse Patient Records regulations: The Federal rules restrict any use of the information to criminally investigate or prosecute any alcohol or drug abuse patient.[facility] HospitalIn the event this information is protected by the Federal Confidentiality of Alcohol and Drug Abuse Patient Records regulations: The Federal rules restrict any use of the information to criminally investigate or prosecute any alcohol or drug abuse patient.[facility] HospitalIn the event this information is protected by the Federal Confidentiality of Alcohol and Drug Abuse Patient Records regulations: The Federal rules restrict any use of the information to criminally investigate or prosecute any alcohol or drug abuse patient.[facility] HospitalIn the event this information is protected by the Federal Confidentiality of Alcohol and Drug Abuse Patient Records regulations: The Federal rules restrict any use of the information to criminally investigate or prosecute any alcohol or drug abuse patient.[facility] HospitalIn the event this information is protected by the Federal Confidentiality of Alcohol and Drug Abuse Patient Records regulations: The Federal rules restrict any use of the information to criminally investigate or prosecute any alcohol or drug abuse patient.[facility] HospitalIn the event this information is protected by the Federal Confidentiality of Alcohol and Drug Abuse Patient Records regulations: The Federal rules restrict any use of the information to criminally investigate or prosecute any alcohol or drug abuse patient.[facility] HospitalIn the event this information is protected by the Federal Confidentiality of Alcohol and Drug Abuse Patient Records regulations: The Federal rules restrict any use of the information to criminally investigate or prosecute any alcohol or drug abuse patient.[facility] HospitalIn the event this information is protected by the Federal Confidentiality of Alcohol and Drug Abuse Patient Records regulations: The Federal rules restrict any use of the information to criminally investigate or prosecute any alcohol or drug abuse patient.[facility] HospitalIn the event this information is protected by the Federal Confidentiality of Alcohol and Drug Abuse Patient Records regulations: The Federal rules restrict any use of the information to criminally investigate or prosecute any alcohol or drug abuse patient.[facility] HospitalIn the event this information is protected by the Federal Confidentiality of Alcohol and Drug Abuse Patient Records regulations: The Federal rules restrict any use of the information to criminally investigate or prosecute any alcohol or drug abuse patient.[facility] HospitalIn the event this information is protected by the Federal Confidentiality of Alcohol and Drug Abuse Patient Records regulations: The Federal rules restrict any use of the information to criminally investigate or prosecute any alcohol or drug abuse patient.[facility] HospitalIn the event this information is protected by the Federal Confidentiality of Alcohol and Drug Abuse Patient Records regulations: The Federal rules restrict any use of the information to criminally investigate or prosecute any alcohol or drug abuse patient.[facility] HospitalIn the event this information is protected by the Federal Confidentiality of Alcohol and Drug Abuse Patient Records regulations: The Federal rules restrict any use of the information to criminally investigate or prosecute any alcohol or drug abuse patient.[facility] HospitalIn the event this information is protected by the Federal Confidentiality of Alcohol and Drug Abuse Patient Records regulations: The Federal rules restrict any use of the information to criminally investigate or prosecute any alcohol or drug abuse patient.[facility] HospitalIn the event this information is protected by the Federal Confidentiality of Alcohol and Drug Abuse Patient Records regulations: The Federal rules restrict any use of the information to criminally investigate or prosecute any alcohol or drug abuse patient.[facility] HospitalIn the event this information is protected by the Federal Confidentiality of Alcohol and Drug Abuse Patient Records regulations: The Federal rules restrict any use of the information to criminally investigate or prosecute any alcohol or drug abuse patient.[facility] HospitalIn the event this information is protected by the Federal Confidentiality of Alcohol and Drug Abuse Patient Records regulations: The Federal rules restrict any use of the information to criminally investigate or prosecute any alcohol or drug abuse patient.[facility] HospitalIn the event this information is protected by the Federal Confidentiality of Alcohol and Drug Abuse Patient Records regulations: The Federal rules restrict any use of the information to criminally investigate or prosecute any alcohol or drug abuse patient.[facility] [facility] HospitalIn the event this information is protected by the Federal Confidentiality of Alcohol and Drug Abuse Patient Records regulations: The Federal rules restrict any use of the information to criminally investigate or prosecute any alcohol or drug abuse patient.[facility] HospitalIn the event this information is protected by the Federal Confidentiality of Alcohol and Drug Abuse Patient Records regulations: The Federal rules restrict any use of the information to criminally investigate or prosecute any alcohol or drug abuse patient.[facility] HospitalIn the event this information is protected by the Federal Confidentiality of Alcohol and Drug Abuse Patient Records regulations: The Federal rules restrict any use of the information to criminally investigate or prosecute any alcohol or drug abuse patient.[facility] HospitalIn the event this information is protected by the Federal Confidentiality of Alcohol and Drug Abuse Patient Records regulations: The Federal rules restrict any use of the information to criminally investigate or prosecute any alcohol or drug abuse patient.[facility] HospitalIn the event this information is protected by the Federal Confidentiality of Alcohol and Drug Abuse Patient Records regulations: The Federal rules restrict any use of the information to criminally investigate or prosecute any alcohol or drug abuse patient.[facility] HospitalIn the event this information is protected by the Federal Confidentiality of Alcohol and Drug Abuse Patient Records regulations: The Federal rules restrict any use of the information to criminally investigate or prosecute any alcohol or drug abuse patient.[facility] HospitalIn the event this information is protected by the Federal Confidentiality of Alcohol and Drug Abuse Patient Records regulations: The Federal rules restrict any use of the information to criminally investigate or prosecute any alcohol or drug abuse patient.[facility] HospitalIn the event this information is protected by the Federal Confidentiality of Alcohol and Drug Abuse Patient Records regulations: The Federal rules restrict any use of the information to criminally investigate or prosecute any alcohol or drug abuse patient.[facility] HospitalIn the event this information is protected by the Federal Confidentiality of Alcohol and Drug Abuse Patient Records regulations: The Federal rules restrict any use of the information to criminally investigate or prosecute any alcohol or drug abuse patient.[facility] HospitalIn the event this information is protected by the Federal Confidentiality of Alcohol and Drug Abuse Patient Records regulations: The Federal rules restrict any use of the information to criminally investigate or prosecute any alcohol or drug abuse patient.[facility] HospitalIn the event this information is protected by the Federal Confidentiality of Alcohol and Drug Abuse Patient Records regulations: The Federal rules restrict any use of the information to criminally investigate or prosecute any alcohol or drug abuse patient.[facility] HospitalIn the event this information is protected by the Federal Confidentiality of Alcohol and Drug Abuse Patient Records regulations: The Federal rules restrict any use of the information to criminally investigate or prosecute any alcohol or drug abuse patient.[facility] HospitalIn the event this information is protected by the Federal Confidentiality of Alcohol and Drug Abuse Patient Records regulations: The Federal rules restrict any use of the information to criminally investigate or prosecute any alcohol or drug abuse patient.[facility] HospitalIn the event this information is protected by the Federal Confidentiality of Alcohol and Drug Abuse Patient Records regulations: The Federal rules restrict any use of the information to criminally investigate or prosecute any alcohol or drug abuse patient.[facility] HospitalIn the event this information is protected by the Federal Confidentiality of Alcohol and Drug Abuse Patient Records regulations: The Federal rules restrict any use of the information to criminally investigate or prosecute any alcohol or drug abuse patient.[facility] HospitalIn the event this information is protected by the Federal Confidentiality of Alcohol and Drug Abuse Patient Records regulations: The Federal rules restrict any use of the information to criminally investigate or prosecute any alcohol or drug abuse patient.[facility] HospitalIn the event this information is protected by the Federal Confidentiality of Alcohol and Drug Abuse Patient Records regulations: The Federal rules restrict any use of the information to criminally investigate or prosecute any alcohol or drug abuse patient.[facility] HospitalIn the event this information is protected by the Federal Confidentiality of Alcohol and Drug Abuse Patient Records regulations: The Federal rules restrict any use of the information to criminally investigate or prosecute any alcohol or drug abuse patient.[facility] HospitalIn the event this information is protected by the Federal Confidentiality of Alcohol and Drug Abuse Patient Records regulations: The Federal rules restrict any use of the information to criminally investigate or prosecute any alcohol or drug abuse patient.[facility] HospitalIn the event this information is protected by the Federal Confidentiality of Alcohol and Drug Abuse Patient Records regulations: The Federal rules restrict any use of the information to criminally investigate or prosecute any alcohol or drug abuse patient.[facility] HospitalIn the event this information is protected by the Federal Confidentiality of Alcohol and Drug Abuse Patient Records regulations: The Federal rules restrict any use of the information to criminally investigate or prosecute any alcohol or drug abuse patient.[facility] HospitalIn the event this information is protected by the Federal Confidentiality of Alcohol and Drug Abuse Patient Records regulations: The Federal rules restrict any use of the information to criminally investigate or prosecute any alcohol or drug abuse patient.[facility] HospitalIn the event this information is protected by the Federal Confidentiality of Alcohol and Drug Abuse Patient Records regulations: The Federal rules restrict any use of the information to criminally investigate or prosecute any alcohol or drug abuse patient.[facility] HospitalIn the event this information is protected by the Federal Confidentiality of Alcohol and Drug Abuse Patient Records regulations: The Federal rules restrict any use of the information to criminally investigate or prosecute any alcohol or drug abuse patient.[facility] HospitalIn the event this information is protected by the Federal Confidentiality of Alcohol and Drug Abuse Patient Records regulations: The Federal rules restrict any use of the information to criminally investigate or prosecute any alcohol or drug abuse patient.[facility] HospitalIn the event this information is protected by the Federal Confidentiality of Alcohol and Drug Abuse Patient Records regulations: The Federal rules restrict any use of the information to criminally investigate or prosecute any alcohol or drug abuse patient.[facility] HospitalIn the event this information is protected by the Federal Confidentiality of Alcohol and Drug Abuse Patient Records regulations: The Federal rules restrict any use of the information to criminally investigate or prosecute any alcohol or drug abuse patient.[facility] HospitalIn the event this information is protected by the Federal Confidentiality of Alcohol and Drug Abuse Patient Records regulations: The Federal rules restrict any use of the information to criminally investigate or prosecute any alcohol or drug abuse patient.[facility] HospitalIn the event this information is protected by the Federal Confidentiality of Alcohol and Drug Abuse Patient Records regulations: The Federal rules restrict any use of the information to criminally investigate or prosecute any alcohol or drug abuse patient.[facility] HospitalIn the event this information is protected by the Federal Confidentiality of Alcohol and Drug Abuse Patient Records regulations: The Federal rules restrict any use of the information to criminally investigate or prosecute any alcohol or drug abuse patient.[facility] HospitalIn the event this information is protected by the Federal Confidentiality of Alcohol and Drug Abuse Patient Records regulations: The Federal rules restrict any use of the information to criminally investigate or prosecute any alcohol or drug abuse patient.[facility] HospitalIn the event this information is protected by the Federal Confidentiality of Alcohol and Drug Abuse Patient Records regulations: The Federal rules restrict any use of the information to criminally investigate or prosecute any alcohol or drug abuse patient.[facility] HospitalIn the event this information is protected by the Federal Confidentiality of Alcohol and Drug Abuse Patient Records regulations: The Federal rules restrict any use of the information to criminally investigate or prosecute any alcohol or drug abuse patient.[facility] HospitalIn the event this information is protected by the Federal Confidentiality of Alcohol and Drug Abuse Patient Records regulations: The Federal rules restrict any use of the information to criminally investigate or prosecute any alcohol or drug abuse patient.[facility] HospitalIn the event this information is protected by the Federal Confidentiality of Alcohol and Drug Abuse Patient Records regulations: The Federal rules restrict any use of the information to criminally investigate or prosecute any alcohol or drug abuse patient.[facility] HospitalIn the event this information is protected by the Federal Confidentiality of Alcohol and Drug Abuse Patient Records regulations: The Federal rules restrict any use of the information to criminally investigate or prosecute any alcohol or drug abuse patient.[facility] HospitalIn the event this information is protected by the Federal Confidentiality of Alcohol and Drug Abuse Patient Records regulations: The Federal rules restrict any use of the information to criminally investigate or prosecute any alcohol or drug abuse patient.[facility] HospitalIn the event this information is protected by the Federal Confidentiality of Alcohol and Drug Abuse Patient Records regulations: The Federal rules restrict any use of the information to criminally investigate or prosecute any alcohol or drug abuse patient.[facility] HospitalIn the event this information is protected by the Federal Confidentiality of Alcohol and Drug Abuse Patient Records regulations: The Federal rules restrict any use of the information to criminally investigate or prosecute any alcohol or drug abuse patient.[facility] HospitalIn the event this information is protected by the Federal Confidentiality of Alcohol and Drug Abuse Patient Records regulations: The Federal rules restrict any use of the information to criminally investigate or prosecute any alcohol or drug abuse patient.[facility] HospitalIn the event this information is protected by the Federal Confidentiality of Alcohol and Drug Abuse Patient Records regulations: The Federal rules restrict any use of the information to criminally investigate or prosecute any alcohol or drug abuse patient.[facility] HospitalIn the event this information is protected by the Federal Confidentiality of Alcohol and Drug Abuse Patient Records regulations: The Federal rules restrict any use of the information to criminally investigate or prosecute any alcohol or drug abuse patient.[facility] HospitalIn the event this information is protected by the Federal Confidentiality of Alcohol and Drug Abuse Patient Records regulations: The Federal rules restrict any use of the information to criminally investigate or prosecute any alcohol or drug abuse patient.[facility] HospitalIn the event this information is protected by the Federal Confidentiality of Alcohol and Drug Abuse Patient Records regulations: The Federal rules restrict any use of the information to criminally investigate or prosecute any alcohol or drug abuse patient.[facility] HospitalIn the event this information is protected by the Federal Confidentiality of Alcohol and Drug Abuse Patient Records regulations: The Federal rules restrict any use of the information to criminally investigate or prosecute any alcohol or drug abuse patient.[facility] HospitalIn the event this information is protected by the Federal Confidentiality of Alcohol and Drug Abuse Patient Records regulations: The Federal rules restrict any use of the information to criminally investigate or prosecute any alcohol or drug abuse patient.[facility] HospitalIn the event this information is protected by the Federal Confidentiality of Alcohol and Drug Abuse Patient Records regulations: The Federal rules restrict any use of the information to criminally investigate or prosecute any alcohol or drug abuse patient.[facility] HospitalIn the event this information is protected by the Federal Confidentiality of Alcohol and Drug Abuse Patient Records regulations: The Federal rules restrict any use of the information to criminally investigate or prosecute any alcohol or drug abuse patient.[facility] HospitalIn the event this information is protected by the Federal Confidentiality of Alcohol and Drug Abuse Patient Records regulations: The Federal rules restrict any use of the information to criminally investigate or prosecute any alcohol or drug abuse patient.[facility] HospitalIn the event this information is protected by the Federal Confidentiality of Alcohol and Drug Abuse Patient Records regulations: The Federal rules restrict any use of the information to criminally investigate or prosecute any alcohol or drug abuse patient.[facility] HospitalIn the event this information is protected by the Federal Confidentiality of Alcohol and Drug Abuse Patient Records regulations: The Federal rules restrict any use of the information to criminally investigate or prosecute any alcohol or drug abuse patient.[facility] HospitalIn the event this information is protected by the Federal Confidentiality of Alcohol and Drug Abuse Patient Records regulations: The Federal rules restrict any use of the information to criminally investigate or prosecute any alcohol or drug abuse patient.[facility] HospitalIn the event this information is protected by the Federal Confidentiality of Alcohol and Drug Abuse Patient Records regulations: The Federal rules restrict any use of the information to criminally investigate or prosecute any alcohol or drug abuse patient.[facility] Reason for Visit (unrecogniz ed section and content) Reason Comments F/U 6 months thyroid lab work, cy st removed 07/30/21 @ [facility] Reason Comments Medication Follow-up start adipex Reason [...] Date Comments Refill Request 08/28/2022 Reason Comments I-No Action Needed Reason Onset Date Comments Refill [...] ABD & PELVIS W/O CONTRAST 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, [employer].PRINTING EQUIPMENT MECHANIC APPRENTICE [address] [place] [address] [place] [address] Referral ID Status Reason Start Date Expiration Date V isits Requested Visits Authorized [id number] Closed Auto-Generate d Referral 02/02/2023 04/03/2023 1 1 Reason Comments Kidney Stones Specialty Diagnoses / Procedures Referred By Contac t Referred To Contact Urology Diagnoses Kidney stone Gross hematuria Flank pain Procedures CONSULT TO UROLOGY OFFICE/OUTPATIENT [facility] 60-74 MINUTES 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, NETWORKING SPECIALIST.PRINTING EQUIPMENT MECHANIC APPRENTICE [address] [place] [address] Referral ID Status Reason Start Date Expiration Date V isits Requested Visits Authorized [id number] Closed PCP Requested Referral 02/02/2023 02/02/2024 1 1 Reason Comments Results Patient Update Reason Onset Date Comments Refill Request 02/19/2023 Reason Comments Patient Update Specialty Diagnoses / Procedures Referred By Contac t Referred To Contact CT IMAGING Diagnoses Left lower quadrant abdominal pain Procedures CT ABD/PEL W IVCON CT ABD & PELVIS W/CONTRAST Dee Flores, NETWORKING SPECIALIST.PRINTING EQUIPMENT MECHANIC APPRENTICE [address] [place] [address] [place] [address] Referral ID Status Reason Start Date Expiration Date V isits Requested Visits Authorized [id number] Closed Auto-Generat ed Referral Patient Cleared - Admin/Chairm an/Director advise to proceed or did not respond 02/28/2022 05/19/2022 1 1 Reason Comments Radiology US Specialty Diagnoses / Procedures Referred By Contac t Referred To Contact US IMAGING Diagnoses Right ureteral stone Procedures US KIDNEY/BLADDER US RETROPERITONEAL REAL TIME W/IMAGE COMPLETE Vicky Crowley, NETWORKING SPECIALIST.PRINTING EQUIPMENT MECHANIC APPRENTICE [address] [place] [address] [place] [address] Referral ID Status Reason Start Date Expiration Date V isits Requested Visits Authorized [id number] Closed Auto-Generate d Referral 02/09/2023 03/10/2024 1 1 Specialty Diagnoses / Procedures Referred By Contac t Referred To Contact US IMAGING Diagnoses Hair loss Thyroid nodule Procedures US THYROID/PARATHYROID US SOFT TISSUE HEAD & NECK REAL TIME IMGE DOCM Jose Luis Toledo, DO [address] [place] [address] [place] [address] Referral ID Status Reason Start Date Expiration Date V isits Requested Visits Authorized [id number] Closed Auto-Generate d Referral 05/12/2022 06/11/2023 [address] Specialty Diagnoses / Procedures Referred By Contac t Referred To Contact CT IMAGING Diagnoses Acute right flank pain History of renal stone Procedures CT FLANK WO IVCON CT ABD & PELVIS W/O CONTRAST Jose Luis Toledo L, DO [address] [place] [address] [place] [address] Referral ID Status Reason Start Date Expiration Date V isits Requested Visits Authorized [id number] Closed Auto-Generate d Referral 05/12/2022 07/11/2022 1 1 Reason Comments Follow Up 3 month follow up, p atient states she has a (R) kidney stone, appointment with Urology on 03/11 for removal Specialty Diagnoses / Procedures Referred By Juan Francisco barnett Referred To Contact Diagnoses Kidney stone Procedures LITHOTRIPSY XTRCORP SHOCK WAVE EXTRACORPOREAL SHOCKWAVE LITHOTRIPSY UNILATERAL [facility] [address] [place] [address] Referral ID Status Reason Start Date Expiration Date Visits Re quested Visits Authorized [id number] 1 1 Reason Comments Kidney Stones Reason Comments urine culture results Results Reason Onset Date Comments Refill Request 06/08/2023 Reason Comments F/U 3 Month Reason Onset Date Comments Refill Request 08/05/2023 Reason Comments Joint Pain Sixto hands and feet p ain swelling, and stiffness x 1 month, now knees, hips and back are achy. No recent injuries. Reason Comments Appointment Reason Comments Orders Reason Comments Right ureteral stone Specialty Diagnoses / Procedures Referred By Juan Francisco barnett Referred To Contact CT IMAGING Diagnoses Calculus of kidney Procedures CT ABD/PEL WO IVCON CT ABD & PELVIS W/O CONTRAST Nelida Irving, NETWORKING SPECIALIST.PRINTING EQUIPMENT MECHANIC APPRENTICE [address] [facility] [address] [place] [address] [place] [address] Referral ID Status Reason Start Date Expiration Date Visits Requested Visits Authorized [id number] Authorized Auto-Generat ed Referral 09/22/2023 04/26/2024 2 2 Reason Comments Weight Check Reason Onset Date Comments Refill Request 10/06/2023 Reason Comments New Patient Specialty Diagnoses / Procedures Referred By Juan Francisco barnett Referred To Contact Rheumatology Diagnoses Arthralgia, unspecified joint Myalgia Toe swelling Finger swelling Chronic midline low back pain without sciatica Acute midline thoracic back pain Hypothyroidism, acquired Family history of osteoarthritis Pain in both hands Family history of rheumatoid arthritis Procedures CONSULT TO RHEUM/IMMUN DISEASE OFFICE/OUTPATIENT NEW HIGH MDM 60 MINUTES Dee Flores, NETWORKING SPECIALIST.PRINTING EQUIPMENT MECHANIC APPRENTICE [address] [place] [address] Referral ID Status Reason Start Date Expiration Date V isits Requested Visits Authorized [id number] Closed PCP Requested Referral 08/10/2023 08/09/2024 1 1 Reason Onset Date Comments Refill Request 11/16/2023 Reason Comments Anxiety Panic attacks, needs a daily medication Reason Comments F/U 3 Month Reason Onset Date Comments Refill Request 01/12/2024 Reason Comments Medication Problem Specialty Diagnoses / Procedures Referred By Contac t Referred To Contact CT IMAGING Diagnoses Endometriosis Right lower quadrant abdominal pain Procedures CT ABD/PEL W IVCON CT ABD & PELVIS W/CONTRAST Jose Luis Toledo, DO [address] [place] [address] Ct Imaging [facility] Referral ID Status Reason Start Date Expiration Date V isits Requested Visits Authorized [id number] Closed Auto-Generate d Referral 01/06/2024 02/04/2024 2 2 Reason Comments Radiology XR Reason Comments Radiology US Specialty Diagnoses / Procedures Referred By Yueac t Referred To Contact US IMAGING Diagnoses Hypothyroidism, acquired Thyroid nodule Procedures US THYROID/PARATHYROID US SOFT TISSUE HEAD & NECK REAL TIME IMGE DOCM Jose Luis Toledo, DO [address] [place] [address] Us Imaging [facility] Referral ID Status Reason Start Date Expiration Date V isits Requested Visits Authorized [id number] Closed Auto-Generate d Referral 04/04/2024 05/04/2025 1 1 Reason Comments Opened In Error Reason Comments Pain (Shoulder Pain) Burning ache in Rig ht shoulder x 2 weeks, no injury pt aware of, pain radiates into R side of neck Reason Comments Cough Cough, chest congest ion, MAL[place], bodyaches and ST x 2 days Reason Comments Acute Visit SOB, wheezing, cough , went to [facility] 3/4 dx with bronchitis and was given prednisone x 4days and albut inhaler with minimal relief, reports SOB is worse Reason Comments needs another diagnosis for nebulizer Reason Comments Follow Up Wheeze, SOB, chest d iscomfort, feels nauseous & bad heartburn, feels a little better Reason Comments Patient Update Patient Question Specialty Diagnoses / Procedures Referred By Juan Francisco t Referred To Contact CT IMAGING Diagnoses SOB (shortness of breath) Wheeze Wheezing Procedures CT CHEST WO IVCON DIAGNOSTIC COMPUTED TOMOGRAPHY THORAX W/O CNTRST Jose Luis Toledo, DO [address] [place] [address] Phone: tel: fax: [place] [address] Referral ID Status Reason Start Date Expiration Date V isits Requested Visits Authorized [id number] Closed Auto-Generate d Referral 07/15/2024 08/13/2024 1 1 Reason Onset Date Comments Refill Request 08/22/2024 Reason Comments F/U 3 Month Anxiety Care Teams (unrecognized sec tion and content) Patient Educator Relationship Specialty Start Date End Date Jose Luis Toledo, DO [address] [place], [place] [address] PCP - General Family Practice 09/15/14 Blade Mejias MD [address] [place] [address] [phone] Neurosurgery 07/21/16 Patient Educator Relationship Specialty Start Date End Date Jose Luis Toledo DO [address] [place], [place] [address] [phone] PCP - General Family Practice 09/15/14 Blade Mejias MD [address] [place] [address] [phone] Neurosurgery 07/21/16 Patient Educator Relationship Specialty Start Date End Date Jose Luis Toledo DO [address] [place] [address] PCP - General Family Practice 09/15/14 Blade Mejias MD [address] [facility] [place] [phone] Neurosurgery 07/21/16 Patient Educator Relationship Specialty Start Date End Date Jose Luis Toledo, DO [address] [place] [address] PCP - General Family Practice 09/15/14 Blade Mejias MD [address] [facility] - [place] [address] Neurosurgery 07/21/16 Patient Educator Relationship Specialty Start Date End Date Jose Luis Toledo, DO [address] [facility] [place] [address] PCP - General Family Practice 09/15/14 Blade Mejias MD [address] [facility] [place] [address] Neurosurgery 07/21/16 Patient Educator Relationship Specialty Start Date End Date Jose Luis Toledo DO [address] [facility] [place] [address] PCP - General Family Medicine 09/15/14 Blade Mejias MD [address] [facility] [address] Neurosurgery 07/21/16 Patient Educator Relationship Specialty Start Date End Date Jose Luis Toledo DO [address] [place] [address] PCP - General Family Medicine 09/15/14 Blade Mejias MD [address] [facility] [address] Neurosurgery 07/21/16 Patient Educator Relationship Specialty Start Date End Date Jose Luis Toledo [address] [place] [address] PCP - General Family Medicine 01/20/22 Patient Educator Relationship Specialty Start Date End Date Jose Luis Toledo [address] [place] [address] PCP - General Family Medicine 01/20/22 Patient Educator Relationship Specialty Start Date End Date Jose Luis Toledo, DO [address] [facility] [place] [address] PCP - General Family Medicine 09/15/14 Blade Mejias MD [address] [facility] [place] [address] Neurosurgery 07/21/16 Patient Educator Relationship Specialty Start Date End Date Jose Luis Toledo, DO [address] [place] [address] PCP - General Family Medicine 09/15/14 Blade Mejias MD [address] [facility] [address] Neurosurgery 07/21/16 Patient Educator Relationship Specialty Start Date End Date Jose Luis Toledo, DO [address] [facility] [place] [address] PCP - General Family Medicine 09/15/14 Blade Mejias MD [address] [facility] [place] [address] Neurosurgery 07/21/16 Patient Educator Relationship Specialty Start Date End Date Jose Luis Toledo, DO [address] [facility] [place] [address] PCP - General Family Medicine 09/15/14 Blade Mejias MD [address] [facility] [place] [address] Neurosurgery 07/21/16 Patient Educator Relationship Specialty Start Date End Date Jose Luis Toledo, DO [address] [place] [address] PCP - General Family Medicine 09/15/14 Blade Mejias MD [address] [facility] [place] [address] Neurosurgery 07/21/16 Patient Educator Relationship Specialty Start Date End Date Jose Luis Toledo, DO [address] [facility] [place], [place] [address] PCP - General Family Medicine 09/15/14 Blade Mejias MD [address] [place] [address] Neurosurgery 07/21/16 Team Status: Active Member Role Status Dates Dr. Jose Luis Toledo , DO Family Provider Active Dr. Jose Luis Toledo , DO Primary Care Provider Active Team Status: Inactive Member Role Status Dates Dr. Jose Luis Toledo , DO Primary Care Provider, Referr ing Provider Active Dr. Zoë Mckinley MD Attending Provider Active Team Status: Inactive Member Role Status Dates Dr. Jose Luis Toledo , DO Primary Care Provider, Referr ing Provider Active She Vivar PAROLE DIRECTOR, PAROLE DIRECTOR-C Attending Provider Active Team Status: Inactive Member Role Status Dates Dr. Jose Luis Toledo , Primary Care Provider Active Dr. Minh Stallings , Attending Provider, Emergency Pro vider Active Team Status: Inactive Member Role Status Dates Dr. Jose Luis Toledo , DO Primary Care Provider Active Dr. Zoë Mckinley MD Attending Provider Active Team Status: Inactive Member Role Status Dates Dr. Jose Luis Toledo , DO Primary Care Provider Active Dr. Zoë Mckinley MD Attending Provider, Referr ing Provider Active Team Status: Active Member Role Status Dates Dr. Jose Luis Toledo , DO Primary Care Provider Active Dr. Zoë Mckinley MD Attending Provider, Referr ing Provider Active Patient Educator Relationship Specialty Start Date End Date Jose Luis Toledo, DO [address] [place] [address] PCP - General Family Medicine 09/15/14 Blade Mejias MD [address] [facility] [address] Neurosurgery 07/21/16 Patient Educator Relationship Specialty Start Date End Date Jose Luis Toledo, DO [address] [facility] [place] [address] PCP - General Family Medicine 09/15/14 Blade Mejias MD [address] [facility] [address] Neurosurgery 07/21/16 Patient Educator Relationship Specialty Start Date End Date Jose Luis Toledo, DO [address] [facility] [place] [address] PCP - General Family Medicine 09/15/14 Blade Mejias MD [address] [facility] [place] [address] Neurosurgery 07/21/16 Patient Educator Relationship Specialty Start Date End Date Jose Luis Toledo, DO [address] [place] [address] PCP - General Family Medicine 09/15/14 Blade Mejias MD [address] [facility] [place] [address] Neurosurgery 07/21/16 Patient Educator Relationship Specialty Start Date End Date Jose Luis Toledo, DO [address] [place] [address] PCP - General Family Medicine 09/15/14 Blade Mejias MD [address] [facility] [place] [address] Neurosurgery 07/21/16 Patient Educator Relationship Specialty Start Date End Date Jose Luis Toledo, DO [address] [place] [address] PCP - General Family Medicine 09/15/14 Blade Mejias MD [address] [facility] [place] [address] Neurosurgery 07/21/16 Patient Educator Relationship Specialty Start Date End Date Jose Luis Toledo, DO [address] [place] [address] PCP - General Family Medicine 09/15/14 Blade Mejias MD [address] [facility] [place] [address] Neurosurgery 07/21/16 Patient Educator Relationship Specialty Start Date End Date Jose Luis Toledo, DO [address] [place] [address] PCP - General Family Medicine 09/15/14 Blade Mejias MD [address] [facility] [address] Neurosurgery 07/21/16 Patient Educator Relationship Specialty Start Date End Date Jose Luis Toledo, DO [address] [place] [address] PCP - General Family Medicine 09/15/14 Blade Mejias MD [address] [facility] [place] [address] Neurosurgery 07/21/16 Patient Educator Relationship Specialty Start Date End Date Jose Luis Toledo DO [address] [place] [address] PCP - General Family Medicine 09/15/14 Blade Mejias MD [address] [place] [address] Neurosurgery 07/21/16 Patient Educator Relationship Specialty Start Date End Date Jose Luis Toledo DO [address] [place] [address]326[address] PCP - General Family Medicine 09/15/14 Blade Mejias MD [address] [place] [address] Neurosurgery 07/21/16 Patient Educator Relationship Specialty Start Date End Date Jose Luis Toledo DO [address] [place] [address] PCP - General Family Medicine 09/15/14 Blade Mejias MD [address] [place] [address] Neurosurgery 07/21/16 Patient Educator Relationship Specialty Start Date End Date Jose Luis Toledo DO [address] [place] [address] PCP - General Family Medicine 09/15/14 Blade Mejias MD [address] [place] [address] Neurosurgery 07/21/16 Patient Educator Relationship Specialty Start Date End Date Jose Luis Toledo DO [address] [place] [address] PCP - General Family Medicine 09/15/14 Blade Mejias MD [address] [place] [address] Neurosurgery 07/21/16 Patient Educator Relationship Specialty Start Date End Date Jose Luis Toledo DO [address] [place] [address] PCP - General Family Medicine 09/15/14 Blade Mejias MD [address] [place] [address] Neurosurgery 07/21/16 Patient Educator Relationship Specialty Start Date End Date Jose Luis Toledo DO [address] [place] [address] PCP - General Family Medicine 09/15/14 Blade Mejias MD [address] [place] [address] Neurosurgery 07/21/16 Patient Educator Relationship Specialty Start Date End Date Jose Luis Toledo DO [address] [place] [address] PCP - General Family Medicine 09/15/14 Blade Mejias MD [address] [place] [address] Neurosurgery 07/21/16 Patient Educator Relationship Specialty Start Date End Date Jose Luis Toledo DO [address] [place] [address] PCP - General Family Medicine 09/15/14 Blade Mejias MD [address] [facility] [place] [address] Neurosurgery 07/21/16 Team Status: Inactive Member Role Status Dates Dr. Jose Luis Toledo , DO Primary Care Provider Active Dr. Maykel Mann , DO Emergency Provider Active Patient Educator Relationship Specialty Start Date End Date Jose Luis Toledo DO [address] [facility] [place], [place] [address]68 [phone] PCP - General Family Medicine 09/15/14 Blade Mejias MD [address] [facility] [place] [address] Neurosurgery 07/21/16 Team Status: Inactive Member Role Status Dates Dr. Jose Luis Toledo , DO Primary Care Provider Active Dr. David Tejeda , DO Emergency Provider Active Team Status: Inactive Member Role Status Dates Dr. Jose Luis Toledo , DO Primary Care Provider Active Dr. Maykel Mann , DO Attending Provider, Emergency Pr ovider Active Patient Educator Relationship Specialty Start Date End Date Jose Luis Toledo DO [address] [place] [address] PCP - General Family Medicine 09/15/14 Blade Mejias MD [address] [facility] [place] [address] Neurosurgery 07/21/16 Patient Educator Relationship Specialty Start Date End Date Jose Luis Toledo DO [address] [place] [address] PCP - General Family Medicine 09/15/14 Blade Mejias MD [address] [place] [address] Neurosurgery 07/21/16 Patient Educator Relationship Specialty Start Date End Date Jose Luis Toledo DO [address] [place] [address]3371 PCP - General Family Medicine 09/15/14 Blade Mejias MD [address] [place] [address] Neurosurgery 07/21/16 Patient Educator Relationship Specialty Start Date End Date Jose Luis Toledo DO [address] [place] [address] PCP - General Family Medicine 09/15/14 Blade Mejias MD [address] [facility] [place] [address] Neurosurgery 07/21/16 Patient Educator Relationship Specialty Start Date End Date Jose Luis Toledo DO [address] [place] [address] PCP - General Family Medicine 09/15/14 Blade Mejias MD [address] [place] [address] Neurosurgery 07/21/16 Patient Educator Relationship Specialty Start Date End Date Jose Luis Toledo DO [address] [place] [address] PCP - General Family Medicine 09/15/14 Blade Mejias MD [address] [place] [address] Neurosurgery 07/21/16 Patient Educator Relationship Specialty Start Date End Date Jose Luis Toledo DO [address] [place] [address] PCP - General Family Medicine 09/15/14 Blade Mejias MD [address] [place] [address] Neurosurgery 07/21/16 Patient Educator Relationship Specialty Start Date End Date Jose Luis Toledo DO [address] [place] [address] PCP - General Family Medicine 09/15/14 Blade Mejias MD [address] [place] [address] Neurosurgery 07/21/16 Patient Educator Relationship Specialty Start Date End Date Jose Luis Toledo DO [address] [place] [address] PCP - General Family Medicine 09/15/14 Blade Mejias MD [address] [place] [address] Neurosurgery 07/21/16 Patient Educator Relationship Specialty Start Date End Date Jose Luis Toledo DO [address] [place] [address] PCP - General Family Medicine 09/15/14 Blade Mejias MD [address] [facility] [address] Neurosurgery 07/21/16 Team Status: Inactive Member Role Status Dates Dr. Jose Luis Toledo , Primary Care Provider Active Dr. David Tejeda DO Attending Provider, Emergency Provider Active Team Status: Inactive Member Role Status Dates Dr. Jose Luis Toledo , Primary Care Provider Active She Vivar PAROLE DIRECTOR, PAROLE DIRECTOR-C Attending Provider, Referring Provider Active Patient Educator Relationship Specialty Start Date End Date Jose Luis Toledo DO [address] [place] [address] PCP - General Family Medicine 09/15/14 Blade Mejias MD [address] [facility] [address] Neurosurgery 07/21/16 Patient Educator Relationship Specialty Start Date End Date Jose Luis Toledo DO [address] [place] [address] PCP - General Family Medicine 09/15/14 Blade Mejias MD [address] [facility] [address] Neurosurgery 07/21/16 Patient Educator Relationship Specialty Start Date End Date Jose Luis Toledo DO [address] [place] [address] PCP - General Family Medicine 09/15/14 Blade Mejias MD [address] [facility] [phone] Neurosurgery 07/21/16 Team Status: Inactive Member Role Status Dates Dr. Jose Luis Toledo DO Primary Care Provider, Referr ing Provider Active Dr. Juvencio Oneal MD Attending Provider Active Team Status: Inactive Member Role Status Dates Dr. Jose Luis Toledo DO Primary Care Provider Active Dr. Juvencio Oneal MD Attending Provider, Referring Provider Active Patient Educator Relationship Specialty Start Date End Date Jose Luis Toledo DO [address] [place], [place] [address]26311 PCP - General Family Medicine 09/15/14 Blade Mejias MD [address] [facility] [place] [address] Neurosurgery 07/21/16 Patient Educator Relationship Specialty Start Date End Date Jose Luis Toledo DO [address] [place] [address] PCP - General Family Medicine 09/15/14 Blade Mejias MD [address] [facility] [place] [address] Neurosurgery 07/21/16 Patient Educator Relationship Specialty Start Date End Date Jose Luis Toledo DO [address] [facility] [place], [place] [address]31 PCP - General Family Medicine 09/15/14 Blade Mejias MD [address] [facility] [place] [address] Neurosurgery 07/21/16 Patient Educator Relationship Specialty Start Date End Date Jose Luis Toledo DO [address] [place] [address] PCP - General Family Medicine 09/15/14 Blade Mejias MD [address] [facility] [place] [address] Neurosurgery 07/21/16 Patient Educator Relationship Specialty Start Date End Date Jose Luis Toledo DO [address] [place] [address] PCP - General Family Medicine 09/15/14 Blade Mejias MD [address] [place] [phone] Neurosurgery 07/21/16 Patient Educator Relationship Specialty Start Date End Date Jose Luis Toledo DO [address] [place] [address] PCP - General Family Medicine 09/15/14 Blade Mejias MD [address] [facility] [place] [address] Neurosurgery 07/21/16 Patient Educator Relationship Specialty Start Date End Date Jose Luis Toledo DO [address] [place] [address] PCP - General Family Medicine 09/15/14 Blade Mejias MD [address] [facility] [place] [address] Neurosurgery 07/21/16 Patient Educator Relationship Specialty Start Date End Date Jose Luis Toledo DO [address] [place] [address] PCP - General Family Medicine 09/15/14 Blade Mejias MD [address] [place] [address] Neurosurgery 07/21/16 Patient Educator Relationship Specialty Start Date End Date Jose Luis Toledo DO [address] [place] [address] PCP - General Family Medicine 09/15/14 Blade Mejias MD [address] [place] [address] Neurosurgery 07/21/16 Patient Educator Relationship Specialty Start Date End Date Jose Luis Toledo DO [address] [place] [address] PCP - General Family Medicine 09/15/14 Blade Mejias MD [address] [facility] [place] [address] Neurosurgery 07/21/16 Patient Educator Relationship Specialty Start Date End Date Jose Luis Toledo DO [address] [place] [address] PCP - General Family Medicine 09/15/14 Blade Mejias MD [address] [facility] [place] [address] Neurosurgery 07/21/16 Patient Educator Relationship Specialty Start Date End Date Jose Luis Toledo DO [address] [place] [address] PCP - General Family Medicine 09/15/14 Blade Mejias MD [address] [place] [address] Neurosurgery 07/21/16 Patient Educator Relationship Specialty Start Date End Date Jose Luis Toledo DO [address] [place] [address] PCP - General Family Medicine 09/15/14 Blade Mejias MD [address] [place] [address] Neurosurgery 07/21/16 Patient Educator Relationship Specialty Start Date End Date Jose Luis Toledo DO [address] [place] [address] PCP - General Family Medicine 09/15/14 Blade Mejias MD [address] [facility] [address] Neurosurgery 07/21/16 Patient Educator Relationship Specialty Start Date End Date Jose Luis Toledo DO [address] [place] [address] PCP - General Family Medicine 09/15/14 Blade Mejias MD [address] [facility] [address] Neurosurgery 07/21/16 Patient Educator Relationship Specialty Start Date End Date Jose Luis Toledo DO [address] [facility] [place] [address] PCP - General Family Medicine 09/15/14 Blade Mejias MD [address] [place] [address] Neurosurgery 07/21/16 Patient Educator Relationship Specialty Start Date End Date Jose Luis Toledo DO [address] [place] [address] PCP - General Family Medicine 09/15/14 Blade Mejias MD [address] [place] [address] Neurosurgery 07/21/16 Patient Educator Relationship Specialty Start Date End Date Jose Luis Toledo DO [address] [place] [address] PCP - General Family Medicine 09/15/14 Blade Mejias MD [address] [place] [address] Neurosurgery 07/21/16 Patient Educator Relationship Specialty Start Date End Date Jose Luis Toledo DO [address] [place] [address] PCP - General Family Medicine 09/15/14 Blade Mejias MD [address] [place] [address]295[address] Neurosurgery 07/21/16 Patient Educator Relationship Specialty Start Date End Date Jose Luis Toledo DO [address] [place] [address] PCP - General Family Medicine 09/15/14 Blade Mejias MD [address] [place] [address] Neurosurgery 07/21/16 Patient Educator Relationship Specialty Start Date End Date Jose Luis Toledo DO [address] [facility] [place], [place] 164091 PCP - General Family Medicine 09/15/14 Blade Mejias MD [address] [place] [address]07[address]30[address] Neurosurgery 07/21/16 Patient Educator Relationship Specialty Start Date End Date Jose Luis Toledo DO [address] [facility] [place] [address] PCP - General Family Medicine 09/15/14 Blade Mejias MD [address] [place] [address] Neurosurgery 07/21/16 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 APRN.CNP [address] [facility] [place] [address] [facility] Intern Family Medicine 04/03/24 Dee Flores APRN.PRINTING EQUIPMENT MECHANIC APPRENTICE [address] [facility] [place] 086600 [phone]- University Intern Family [facility] 04/03/24 Patient Educator Relationship Specialty Start Date End Date Jose Luis Toledo DO [address] [place] [address] PCP - General Family Medicine 09/15/14 Blade Mejias MD [address] [facility] [address] Neurosurgery 07/21/16 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 APRN.PRINTING EQUIPMENT MECHANIC APPRENTICE [address] [place], [place] 701736 [phone] University Intern Family Medicine 04/03/24 Dee Flores NETWORKING SPECIALIST.PRINTING EQUIPMENT MECHANIC APPRENTICE [address] [place] [address] [facility] 04/[facility]/24 Patient Educator Relationship Specialty Start Date End Date Jose Luis Toledo DO [address] [place] [address] PCP - General Family Medicine 09/15/14 Blade Mejias MD [address] [place] [address]27[address] Neurosurgery 07/21/16 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 NETWORKING SPECIALIST.PRINTING EQUIPMENT MECHANIC APPRENTICE [address] [place] [address] [facility] Intern Family Medicine 04/03/24 Dee Flores APRN.PRINTING EQUIPMENT MECHANIC APPRENTICE [address] [facility] [place] [address] [facility] Intern Family Medicine 04/03/24 Patient Educator Relationship Specialty Start Date End Date Jose Luis Toledo DO [address] [facility] [place] [address] PCP - General Family Medicine 09/15/14 Blade Mejias MD [address] [facility] [place] [address]29[address]757[address]70[address] Neurosurgery 07/21/16 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 NETWORKING SPECIALIST.PRINTING EQUIPMENT MECHANIC APPRENTICE [address] [place] [address] [phone] University Intern Family Medicine 04/03/24 Dee Flores NETWORKING SPECIALIST.PRINTING EQUIPMENT MECHANIC APPRENTICE [address] [place] [address] [facility] Intern Family Medicine 04/03/24 Patient Educator Relationship Specialty Start Date End Date Jose Luis Toledo DO [address] [facility] [place] [address] PCP - General Family Medicine 09/15/14 Blade Mejias MD [address] [place] [address]2875918[address]90[address] Neurosurgery 07/21/16 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 APRN.PRINTING EQUIPMENT MECHANIC APPRENTICE [address] [place] [address] University Intern Family Medicine 04/03/24 Dee Flores NETWORKING SPECIALIST.PRINTING EQUIPMENT MECHANIC APPRENTICE [address] [place], [place] 475520 [phone] University Intern Family [facility] 04/03/24 Patient Educator Relationship Specialty Start Date End Date Jose Luis Toledo DO [address] [place] [address] PCP - General Family Medicine 09/15/14 Blade Mejias MD [address] [facility] [place] [address] Neurosurgery 07/21/16 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 APRN.PRINTING EQUIPMENT MECHANIC APPRENTICE [address] [place], [place] 589751 [phone]- University Intern Family Medicine 04/03/24 Dee Flores APRN.PRINTING EQUIPMENT MECHANIC APPRENTICE [address] [place], [place] 623238 [phone] University Intern Family [facility] 04/03/24 Patient Educator Relationship Specialty Start Date End Date Jose Luis Toledo DO [address] [place], [place] 470481 [phone] PCP - General Family Medicine 09/15/14 Blade Mejias MD [address] [facility] [place] [address] Neurosurgery 07/21/16 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 APRN.PRINTING EQUIPMENT MECHANIC APPRENTICE [address] [place] [address] University Intern Family Medicine 04/03/24 Dee Flores APRN.PRINTING EQUIPMENT MECHANIC APPRENTICE [address] [place] [address] University Intern Family [facility] 04/03/24 Patient Educator Relationship Specialty Start Date End Date Jose Luis Toledo DO [address] [place] [address] PCP - General Family Medicine 09/15/14 Blade Mejias MD [address] [place] [address] Neurosurgery 07/21/16 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 APRN.PRINTING EQUIPMENT MECHANIC APPRENTICE [address] [place] [address] University Intern Family Medicine 04/03/24 Dee Flores APRN.PRINTING EQUIPMENT MECHANIC APPRENTICE [address] [place] [address] University Intern [facility] 04/03/24 Patient Educator Relationship Specialty Start Date End Date Jose Luis Toledo DO [address] [place] [address] [phone] PCP - General Family Medicine 09/15/14 Blade Mejias MD [address] [place] [phone] Neurosurgery 07/21/16 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 NETWORKING SPECIALIST.PRINTING EQUIPMENT MECHANIC APPRENTICE [address] [place] [address] University Intern Family Medicine 04/03/24 Dee Flores APRN.PRINTING EQUIPMENT MECHANIC APPRENTICE [address] [place] [address] University Intern Family [facility] 04/03/24 Patient Educator Relationship Specialty Start Date End Date Jose Luis Toledo DO [address] [place] [address] [phone] PCP - General Family Medicine 09/15/14 Blade Mejias MD [address] [place] [phone] Neurosurgery 07/21/16 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 APRN.PRINTING EQUIPMENT MECHANIC APPRENTICE [address] [facility] [place] [id number] [phone] [facility] 04/03/24 Dee Flores APRN.PRINTING EQUIPMENT MECHANIC APPRENTICE [address] [facility] [place] [address] [facility] 04/03/24 Patient Educator Relationship Specialty Start Date End Date Jose Luis Toledo DO [address] [place] 13[address]51 [phone] PCP - General Family Medicine 09/15/14 Blade Mejias MD [address] [place] [phone] Neurosurgery 07/21/16 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 NETWORKING SPECIALIST.PRINTING EQUIPMENT MECHANIC APPRENTICE [address] [facility] [place] [id number] [phone] [facility] 04/03/24 Dee Flores NETWORKING SPECIALIST.PRINTING EQUIPMENT MECHANIC APPRENTICE [address] [facility] [place] [id number] [phone] University Intern Family [facility] 04/03/24 Patient Educator Relationship Specialty Start Date End Date Jose Luis Toledo DO [address] [place] [address] PCP - General Family Medicine 09/15/14 Blade Mejias MD [address] [facility] [place] [phone] Neurosurgery 07/21/16 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 APRN.PRINTING EQUIPMENT MECHANIC APPRENTICE [address] [place], [place] [address] [facility] 04/03/24 Dee Flores APRN.PRINTING EQUIPMENT MECHANIC APPRENTICE [address] [place] [address] [facility] 04/03/24 Patient Educator Relationship Specialty Start Date End Date Jose Luis Toledo DO [address] [place], [place] [address] [phone] PCP - General Family Medicine 09/15/14 Blade Mejias MD [address] [facility] [place] [phone] Neurosurgery 07/21/16 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 APRN.PRINTING EQUIPMENT MECHANIC APPRENTICE [address] [place], [place] 580215 [phone] [facility] 04/03/24 Dee Flores APRN.PRINTING EQUIPMENT MECHANIC APPRENTICE [address] [place], [place] 929915 [phone] University Intern Family Medicine 04/03/24 Patient Educator Relationship Specialty Start Date End Date Jose Luis Toledo DO [address] [facility] [place] 532528 [phone] PCP - General Family Medicine 09/15/14 Blade Mejias MD [address] [place] [place] [phone] Neurosurgery 07/21/16 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 APRN.PRINTING EQUIPMENT MECHANIC APPRENTICE [address] [place] [address] [facility] 04/03/24 Dee Flores APRN.PRINTING EQUIPMENT MECHANIC APPRENTICE [address] [place] [address] [facility] 04/03/24 Patient Educator Relationship Specialty Start Date End Date Jose Luis Toledo DO [address] [place] [address] PCP - General Family Medicine 09/15/14 Blade Mejias MD [address] [place] [place] [phone] Neurosurgery 07/21/16 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 APRN.PRINTING EQUIPMENT MECHANIC APPRENTICE [address] [place] [address] [facility] 04/03/24 Dee Flores APRN.PRINTING EQUIPMENT MECHANIC APPRENTICE [address] [place] [address] [facility] 04/03/24 Patient Educator Relationship Specialty Start Date End Date Jose Luis Toeldo DO [address] [facility] [place], [place] [address] [phone] PCP - General Family Medicine 09/15/14 Blade Mejias MD [address] [facility] [place] [phone] Neurosurgery 07/21/16 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 APRN.PRINTING EQUIPMENT MECHANIC APPRENTICE [address] [place] [address] [phone] University Intern Family [facility] 04/03/24 Dee Flores APRN.PRINTING EQUIPMENT MECHANIC APPRENTICE [address] [place] [address] [facility] Intern [facility] 04/03/24 Patient Educator Relationship Specialty Start Date End Date Jose Luis Toledo DO [address] [place] [address] [phone] PCP - General Family Medicine 09/15/14 Blade Mejias MD [address] [facility] [phone] Neurosurgery 07/21/16 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 APRN.PRINTING EQUIPMENT MECHANIC APPRENTICE [address] [place] [address] University Intern Family [facility] 04/03/24 Dee Flores APRN.PRINTING EQUIPMENT MECHANIC APPRENTICE [address] [place] [address] University Intern Family [facility] 04/03/24 Team Status: Active Member Role Status Dates Dr. Jose Luis Toledo DO Primary Care Provider Active Team Status: Inactive Member Role Status Dates Dr. Jose Luis Toledo DO Primary Care Provider Active Start: July 25, 2024 End: July 25, 2024 Dr. Jose Luis Toledo DO Attending Provider Active Start: July 25, 2024 End: July 25, 2024 Dr. Jose Luis Toledo DO Referring Provider Active Start: July 25, 2024 End: July 25, 2024 Patient Educator Relationship Specialty Start Date End Date Jose Luis Toledo DO [address] [place] [address] PCP - General Family Medicine 09/15/14 Blade Mejias MD [address] [place] [phone] Neurosurgery 07/21/16 Dee Flores APRN.PRINTING EQUIPMENT MECHANIC APPRENTICE [address] [place] [address] University Intern [facility] 04/03/24 Patient Educator Relationship Specialty Start Date End Date Jose Luis Toledo DO [address] [place] [address] PCP - General Family Medicine 09/15/14 Blade Mejias MD [address] [facility] [phone] Neurosurgery 07/21/16 Dee Flores APRN.PRINTING EQUIPMENT MECHANIC APPRENTICE [address] [place] [address] University Intern Family [facility] 04/03/24 Patient Educator Relationship Specialty Start Date End Date Jose Luis Toledo DO [address] [place] [address] PCP - General Family Medicine 09/15/14 Blade Mejias MD [address] [place] [place] [phone] Neurosurgery 07/21/16 Dee Flores APRN.PRINTING EQUIPMENT MECHANIC APPRENTICE [address] [place] [address] [facility] Intern [facility] 04/03/24 Patient Educator Relationship Specialty Start Date End Date Jose Luis Toledo DO [address] [place] [address] PCP - General Family Medicine 09/15/14 Blade Mejias MD [address] [facility] [place] [phone] Neurosurgery 07/21/16 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 NETWORKING SPECIALIST.PRINTING EQUIPMENT MECHANIC APPRENTICE [address] [place] [address] University Intern [facility] 04/03/24 07/15/24 Dee Flores NETWORKING SPECIALIST.PRINTING EQUIPMENT MECHANIC APPRENTICE [address] [place] [address] University Intern [facility] 04/03/24 Patient Educator Relationship Specialty Start Date End Date Jose Luis Toledo DO [address] [place] [address] PCP - General Family Medicine 09/15/14 Blade Mejias MD [address] [facility] [place] [phone] Neurosurgery 07/21/16 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 APRN.PRINTING EQUIPMENT MECHANIC APPRENTICE [address] [place] [address] University Intern Family [facility] 04/03/24 07/15/24 Dee Flores APRN.PRINTING EQUIPMENT MECHANIC APPRENTICE [address] [place] [address] University Intern Family [facility] 04/03/24 Patient Educator Relationship Specialty Start Date End Date Jose Luis Toledo DO [address] [place], [place] [address]395 [phone] PCP - General Family Medicine 09/15/14 Blade Mejias MD [address] [facility] [facility] [place] [phone] Neurosurgery 07/21/16 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 NETWORKING SPECIALIST.PRINTING EQUIPMENT MECHANIC APPRENTICE [address] [place] [address] University Intern Family [facility] 04/03/24 07/15/24 Dee Flores APRN.PRINTING EQUIPMENT MECHANIC APPRENTICE [address] [place] [address] University Intern Family Medicine 04/03/24 Patient Educator Relationship Specialty Start Date End Date Jose Luis Toledo DO [address] [place] [address] PCP - General Family Medicine 09/15/14 Blade Mejias MD [address] [facility] [place] [address] Neurosurgery 07/21/16 MarkDee APRN.PRINTING EQUIPMENT MECHANIC APPRENTICE [address] [facility] [place] [address] University Intern Family Medicine 04/03/24 Team Status: Active Member Role/Relationship Status Dates Dr. Jose Luis Toledo DO Primary Care Provider Active Team Status: Inactive Member Role/Relationship Status Dates Dr. Jose Luis Toledo DO Primary Care Provider Active Start: December 21, 2024 End: December 21, 2024 Dr. Jose Luis Toledo DO Referring Provider Active Start: December 21, 2024 End: December 21, 2024 Xi Zheng PA, PA Attending Provider Active Start: December 21, 2024 End: December 21, 2024 Team Status: Inactive Member Role/Relationship Status Dates Dr. Jose Luis Toledo DO Primary Care Provider Active Start: December 22, 2024 End: December 22, 2024 Dr. Jose Luis Toledo DO Referring Provider Active Start: December 22, 2024 End: December 22, 2024 ANDREW Alvarez Attending Provider Active Start: December 22, 2024 End: December 22, 2024 Team Status: Active Member Role/Relationship Status Dates Dr. Jose Luis Toledo DO Primary Care Provider Active Start: December 22, 2024 ANDREW Alvarez Attending Provider Active Start: December 22, 2024 ANDREW Alvarez Referring Provider Active Start: December 22, 2024 Team Status: Inactive Member Role/Relationship Status Dates Dr. Jose Luis Toledo DO Primary Care Provider Active Start: December 22, 2024 End: December 22, 2024 ANDREW Alvarez Attending Provider Active Start: December 22, 2024 End: December 22, 2024 ANDREW Alvarez Referring Provider Active Start: December 22, 2024 End: December 22, 2024 Team Status: Inactive Member Role/Relationship Status Dates Dr. Jose Luis Toledo DO Primary Care Provider Active Start: January 05, 2025 End: January 05, 2025 Dr. Jose Luis Toledo DO Referring Provider Active Start: January 05, 2025 End: January 05, 2025 Dr. Juvencio Oneal MD Attending Provider Active Start: January 05, 2025 End: January 05, 2025 Patient Educator Relationship Specialty Start Date End Date Jose Luis Toledo DO [address] [facility] [place], [place] [address] PCP - General Family Medicine 09/15/14 Blade Mejias MD [address] [facility] [place] [phone] Neurosurgery 07/21/16 Dee Flores APRN.PRINTING EQUIPMENT MECHANIC APPRENTICE [address] [facility] [place], [place] [address] [facility] 04/03/24 Barbara Wang NETWORKING SPECIALIST.PRINTING EQUIPMENT MECHANIC APPRENTICE [address] [place], [place] [id number] [facility] 10/10/24 Patient Educator Relationship Specialty Start Date End Date Jose Luis Toledo DO [address] [facility] [place], [place] [address] PCP - General Family Medicine 09/15/14 Blade Mejias MD [address] [facility] [place] [phone] Neurosurgery 07/21/16 Dee Flores APRN.PRINTING EQUIPMENT MECHANIC APPRENTICE [address] [facility] [place], [place] [address] [facility] 04/03/24 Barbara Wang APRN.PRINTING EQUIPMENT MECHANIC APPRENTICE [address] [place] [address] University Intern Family Medicine 10/10/24 Ordered Prescriptions (unrec ognized section and content) Prescription Sig Dispensed Refills Start Date End Da te docusate sodium (COLACE) 100 MG capsule Take 1 capsule by mouth 2 times daily as needed for Constipation 60 capsule 0 01/27/2022 02/26/2022 ibuprofen (ADVIL;MOTRIN) 600 MG tablet Take 1 tablet by mouth every 6 hours as needed for Pain 60 tablet 0 01/27/2022 oxyCODONE (ROXICODONE) 5 MG immediate release tabletIndications:Pos t-op pain Take 1 tablet by mouth every 6 hours as needed for Pain for up to 3 days. Intended supply: 3 days. Take lowest dose possible to manage pain 12 tablet 0 01/27/2022 01/30/2022 Scheduled Active and Recently Administ ered Medications (unrecognized section and content) Medication Order 01/25/2022 01/26/2022 01/27/2022 acetaminophen (TYLENOL) tablet 1,000 mg (COMPLETED) 1,000 mg, Oral, ONCE, 1 dose, On Thu01/27/22 at 1115, Maximum dose of acetaminophen is 4000 mg from all sources in 24 hours. Do not administer if patient has taken tylenol <4 hours earlier. Do not give if contraindicated ie. patient has active liver disease or cirrhosis., Pre-op (day of surgery) 1113 (Given - Provid er: Mary Plascencia RN) famotidine (PEPCID) tablet 20 mg (COMPLETED) 20 mg, Oral, ONCE, 1 dose, On Thu01/27/22 at 1115, Pre-op (day of surgery) 1113 (Given - Provid er: Mary Plascencia RN) gabapentin (NEURONTIN) capsule 100 mg (COMPLETED) 100 mg, Oral, ONCE, 1 dose, On Thu01/27/22 at 1115, For Age >69, or Low GFR, Pre-op (day of surgery) 1113 (Given - Provid er: Mary Plascencia RN) sodium chloride flush 0.9 % injection 5-40 mL 5-40 mL, IntraVENous, EVERY 12 HOURS SCHEDULED (2 times per day), First dose on Thu01/27/22 at 1115, Until Discontinued, For Line Patency: Peripheral IV = 5 [...] = 20 mL/lumen, Pre-op (day of surgery) 1115 (Due)2100 (Due) sodium chloride flush 0.9 % injection 5-40 mL 5-40 mL, IntraVENous, EVERY 12 HOURS SCHEDULED (2 times per day), First dose on Thu01/27/22 at 2100, Until Discontinued, For Line Patency: Peripheral IV = 5 [...] Central Line = 20 mL/lumen, PACU only 2100 (Due) Continuous Medication Order 01/25/2022 01/26/2022 01/27/2022 lactated [...] BE BASED ON THE PRIMARY CLINICAL RECORDS. [email or web address] provides no warranty or guarantee of the accuracy or completeness of information in this document.
--- OUTSIDE RECORDS SUMMARY | 2025-01-26 22:21 | XMS RPT_ITS | CCD ---
Author Organization [facility] Care Team Providers Care Dentistry Teacher Name Role Phone PAPI RODGERS Unavailable Unavailable REFERRED, SELF Unavailable Unavailable JOSE LUIS TOLEDO Unavailable Unavailable BILL MARIA Unavailable Unavailable BILL MARIA Unavailable Unavailable JOSE LUIS TOLEDO Unavailable Unavailable Dr. Jose Luis Toledo Primary Care Provider Dr. Jose Luis Toledo Referring Provider Norm LYONS, PA Xi Bailey Attending Provider Cb CURRICULUM AND ASSESSMENT COORDINATOR, CURRICULUM AND ASSESSMENT COORDINATOR-C She Attending Provider Dr. Zoë Mckinley Attending Provider Dr. Juvencio Oneal Attending Provider Dr. Zoë Mckinley Other Provider Jose Luis Toledo DO Primary Care Provider Blade Mejias MD Unavailable [phone] Dr. Juvencio Oneal Referring Provider Prosper CURRICULUM AND ASSESSMENT COORDINATOR, CURRICULUM AND ASSESSMENT COORDINATOR-C Anat Attending Provider Dr. Jose Luis Toledo Primary Care Provider Dr. Jose Luis Toledo Referring Provider Dr. Jose Luis Toledo Primary Care Provider Dr. Jose Luis Toledo Referring Provider Cb CURRICULUM AND ASSESSMENT COORDINATOR, CURRICULUM AND ASSESSMENT COORDINATOR-C She Attending Provider Jose Luis Toledo DO Primary Care Provider Blade Mejias MD Unavailable Dr. Jose Luis Toledo Primary Care Provider Dr. Jose Luis Toledo Referring Provider Dr. Juvencio Oneal Attending Provider Jose Luis Toledo DO Primary Care Provider Jose Luis Toledo Primary Care Provider Dr. Jose Luis Toledo Primary Care Provider Dr. Jose Luis Toledo Referring Provider Cb CURRICULUM AND ASSESSMENT COORDINATOR, CURRICULUM AND ASSESSMENT COORDINATOR-C She Attending Provider [phone] Jose Luis Toledo Primary Care Unavailable Deon Camacho Attending Unavailable PROVIDER, UNKNOWN Referring Unavailable No, PCP Primary Care Unavailable PROVIDER, UNKNOWN Referring Unavailable Deon Camacho Attending Unavailable Dr. Jose Luis Toledo Primary Care Provider Dr. Jose Luis Toledo Referring Provider Dr. Juvencio Oneal Attending Provider Cb CURRICULUM AND ASSESSMENT COORDINATOR, CHARLY-Tan Nowak Attending Provider [phone] Dr. [...] Dr. Jose Luis Toledo Referring Provider Cb CURRICULUM AND ASSESSMENT COORDINATOR, CHARLY-Tan Nowak Attending Provider [phone] Dr. [...] JOSE LUIS TOLEDO Primary Care Unavailable Quinteros 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.[employer], Brandi Schneider Unavailable Mark 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.Dee TAMEZ Unavailable Dr. Jose Luis Toledo DO Primary Care Provider Dr. Jose Luis Toledo DO Attending Provider Dr. Jose Luis Toledo DO Referring Provider Quinteros 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.Brandi TAMEZ Unavailable Dr. Jose Luis Toledo DO Primary Care Provider Dr. Jose Luis Toledo DO Referring Provider Xi Bang Attending Provider Beth Elder Attending Provider Beth Elder Referring Provider Dr. Juvencio Oneal MD Attending Provider Kathleen 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.Barbara TAMEZ Unavailable JOSE LUIS TOLEDO Primary Care [...] sources) Menthol Drug Allergy 08-08-19 23 Rash [facility] metFORMIN (2 sources) metFORMIN Drug Allergy 01-24-20 17 GI Upset [facility] Work Phone: NSAIDs (2 sources) Naproxen Drug Allergy 04-28-19 08 Vomiting [facility] Work Phone: Opioid Agonists (2 sources) Morphine Drug Allergy 03-11-20 Other: See Comments [facility] Penicillins (antibiotic) (2 sources) Penicillins Drug Allergy 04-28-19 08 Swelling [facility] Work Phone: Prochlorperazine (2 sources) Prochlorperazine Drug Allergy 03-11-20 23 Mental Status Change [facility] (20 sources) Penicillins; Translations: [PENICILLINS] Propensity to adverse reactions to drug (disorder) 04-28-19 08 Swelling, Anaphylaxis [facility] Comment on above: Can not breath (20 sources) Adhesive agent; Translations: [ADHESIVE] Allergy to substance 12-27-19 Rash [facility] [place] Comment on above: RASH AND SKIN BUBBL ES UP (20 sources) metFORMIN; Translations: [METFORMIN] Drug Allergy 01-24-20 17 GI Upset [facility] Work Phone: (20 sources) Naproxen; Translations: [NAPROXEN SODIUM] Drug Allergy 04-28-19 08 Vomiting [facility] Work Phone: (2 sources) Acetaminophen / HYDROcodone Drug Allergy 01-23-20 22 Nausea And Vomiting [facility] (2 sources) Adhesive Tape Propensity to adverse reactions to drug 01-18-20 22 Rash [facility] (20 sources) Menthol; Translations: [MENTHOL] Drug Allergy 08-08-19 23 Rash [facility] (20 sources) Morphine; Translations: [MORPHINE (PF)] Drug Allergy 03-11-20 Other: See Comments [facility] (20 sources) Prochlorperazine; Translations: [PROCHLORPERAZINE] Drug Allergy 03-11-20 Mental Status Change [facility] (1 source) Menthol Drug Allergy 01-06-20 [facility] Medications Current Medications Medication Drug Class(es) [...] 04/06/2024 05/06/2024 Active Start: 02-14-2023 End: 05-26-2023 Alydnpvpkr-Vispekfepekqf-Tlx f 50-325-40 mg tablet Discontinued 1 {tbl} PO EVERY 6 HOURS as needed for pain February 14, 2023 12:00am May 26, 2023 9:33am Start: 02-14-2023 End: 05-26-2023 take 1 tablet by mouth every six hours Pdybwtlubc-Twukzetjedxfi-Lngd Discontinu ed 1 TABLET PO EVERY 6 [...] Comment on above: Take 1 tablet by [facility] once daily for 14 days. Take [...] Comment on above: Take 1 capsule by [facility] once daily. clarithromycin 500 mg oral tablet [...] oral tablet (1 source) Start: 01-06-20 Pyridostigmine [place] 60 mg tablet Active 30 mg PO [...] Comment on above: Take 1 tablet by [facility] every 8 hours as needed (muscle spasms). [...] System Stimulant, Methylxanthine Start: 10-11-2019 End: 05-10-2020 Qbveqapohz-Cfuuxpw-Vhcz eine 1 EACH capsule Discontinued 1 NMA PO EVERY 4 HOURS NEEDED as needed for Migraine Symptoms October 11, 2019 12:00am May 10, 2020 10:01am Start: 10-11-2019 End: 05-10-2020 Gwnwznzbny-Pgynunt-Sjutsplw Discontinued 1 EACH PO EVERY 4 HOURS [...] Start: 12-21-2024 take 1 capsule by [facility] twice daily Doxycycline Monohydrate 100 mg capsule [...] Comment on above: Take 1 tablet by [facility] twice daily for 10 days. famotidine 20 [...] on above: Take 1 capsule by [facility] daily before breakfast. 1/2 hr before meal. [...] Rx synalarConfirmed bx 5 yr ago [facility] Other skin disorders (13 sources) Telogen effluvium; [...] 025 ACHR AB MODULAT 0 Normal 0-45 [facility] Comment on above: Order Comment: Test( s) 381972-DPqK-kjfqdqnrxr Ab was developed and its performance characteristics determined by [employer]. It has not been cleared or approved by the Food and Drug Administration. Result Comment: Inte rpretive Information: Negative: 0 - 45% Positive: > 45% No single value for AChR-modulating antibody should be used as a sole basis for diagnosis or response to therapy. Performed By: #### L 3300.0600, L3410.0200, L3410.0100 #### [facility] Laboratory [address] [place], [place], [address] ACHR Production Cost Estimator AB, Blockingon ACHR MARGIN TRIMMER AB 20 Normal 0-25 [facility] [place] Comment on above: Order Comment: Test( s) [id number]-XQoC Blocking Abs, Serum This test was developed and its performance characteristics determined by [employer]. It has not been cleared or approved by the Food and Drug Administration. Result Comment: Nega tive: 0 - 25 Borderline: 26 - 30 Positive: >30 Performed at: [address] [id number] Child Welfare Consultant: Margie Ferrer MD, Phone: [phone] Performed By: #### L 3300.0600, L3410.0200, L3410.0100 #### [facility] [place] [address] [place], [address] Acetylcholine Receptoron ACHR AB < 0.07 Normal 0.00-0.24 [facility] [place] Comment on above: Order Comment: Test( s) 708838-LPvQ Blocking Abs, Serum This test was developed and its performance characteristics determined by [facility]. It has not been cleared or approved by the Food and Drug Administration. N Result Comment: Nega tive: 0.00 - 0.24 Borderline: 0.25 - 0.40 Positive: >0.40 Performed By: #### L 3300.0600, L3410.0200, L3410.0100 #### [facility] [address] [place], [place], [id number] [facility] Telephone (FAMPWS) -- SAMMY REDD ([id number]) 1980 F Date Time Provider Department 01/09/25 JOSE LUIS TOLEDO [facility] During your visit today, we recorded the [...] [R73.01] Order(s):COMPREHENSIVE METABOLIC PANEL [SQCMP] Order #: [id number] FUTURE VITAMIN B12 [SQB12] Order #: [id number] FUTURE Prescriptions as of 01/09/2025 - Phentermine [...] glucose) [ (more content not included)... Normal [facility] 25(OH)D3 [facility] 2024 25-hydroxyvitamin D3 [Mass/Vol] 38.6 ng/mL Normal 31.0-80.0 [facility] Comment on above: Order Comment: Speci men Type: BLOOD SPECIMENOrdering Facility: [facility] Address: [address] [place] [address] Result Comment: Clas sification of 25 [place] Vitamin D status: Deficiency/Insufficiency: < or = 30 ng/ml. Sufficiency/Optimal Levels: 31-80 ng/mL Toxicity: > 100 ng/mL. Test performed by chemiluminescent immunoassay. Performed By: #### 1 989-3 ####[facility] [id number] [address] [place] CNOVon 01-06-2025 CNOV Office Visit (FAMPWS ) -- SAMMY REDD ([id number]) 1980 F Date Time Provider Department 01/06/25 [...] Myasthenia gravis with Neurology Dr. Oneal at [facility]- antibody levels were normal but he feels [...] disorder (just had APPT drawn - in [facility] - [facility]) PUD (peptic ulcer disease) 2009 treated [...] 1,000 internat (more content not included)... Normal [facility] Comprehensive metabolic 2000 panelon 01-06-2025 Albumin [Mass/Vol] 4.6 g/dL Normal 3.9-4.9 [facility] Comment on above: Order Comment: Speci men Type: BLOOD SPECIMENOrdering Facility: [facility] Address: [address] [place] [address] Performed By: #### 2 143-6, 65820-0, 84272-5 ####[facility]CLIA [id number] [place] [address] [place] ALP [Catalytic activity/Vol] 78 U/L Normal 34-123 [facility] Comment on above: Order Comment: Speci men Type: BLOOD SPECIMENOrdering Facility: [facility] Address: [address] [place] [address] Performed By: #### 2 143-6, 18286-0, 54016-2 ####[facility] [id number] [address] [address] [place] ALT [Catalytic activity/Vol] 19 U/L Normal 7-38 [facility] Comment on above: Order Comment: Speci men Type: BLOOD SPECIMENOrdering Facility: [facility] Address: [address] [place] [address] Result Comment: Resu lts may be falsely increased due to interference from hemolysis. Suggest reorder as clinically indicated. Performed By: #### 2 143-6, 22519-5, 75376-9 ####[facility] [id number] [place] [address] [place] Anion gap [Moles/Vol] 13 mmol/L Normal 8-15 [facility] Comment on above: Order Comment: Speci men Type: BLOOD SPECIMENOrdering Facility: [facility] Address: [address] [place] [address] Performed By: #### 2 143-6, 97295-6, 98839-8 ####[facility] [id number] [place] [address] [place] AST [Catalytic activity/Vol] 31 U/L Normal 13-35 [facility] Comment on above: Order Comment: Speci men Type: BLOOD SPECIMENOrdering Facility: [facility] Address: [address] [place] [address] Result Comment: Resu lts may be falsely increased due to interference from hemolysis. Suggest reorder as clinically indicated. Performed By: #### 2 143-6, 92139-2, 91015-9 ####[facility] [id number] [place] [address] [place] Bilirubin [Mass/Vol] 0.4 mg/dL Normal 0.2-1.3 [facility] Comment on above: Order Comment: Speci men Type: BLOOD SPECIMENOrdering Facility: [facility] Address: [address] [place] [address] Performed By: #### 2 143-6, 90689-8, 11560-9 ####[facility]CLIA [id number] [place] [id number] [place] Calcium [Mass/Vol] 9.6 mg/dL Normal 8.5-10.2 [facility] Comment on above: Order Comment: Speci men Type: BLOOD SPECIMENOrdering Facility: [facility] Address: [address] [place] [address] Performed By: #### 2 143-6, 40483-1, 06790-1 ####[facility] [id number] [place] [address] [place] Chloride [Moles/Vol] 105 mmol/L Normal 98-107 [facility] Comment on above: Order Comment: Speci men Type: BLOOD SPECIMENOrdering Facility: [facility] Address: [address] [place] [address] Performed By: #### 2 143-6, 62704-6, 09462-4 ####[facility] [id number] [place] [address] [place] CO2 [Moles/Vol] 24 mmol/L Normal 22-30 [facility] Comment on above: Order Comment: Speci men Type: BLOOD SPECIMENOrdering Facility: [facility] Address: [address] [place] [address] Performed By: #### 2 143-6, 75463-9, 70588-5 ####[facility] LABCLIA [id number] [place] [id number] [place] Creatinine [Mass/Vol] 0.74 mg/dL Normal 0.58-0.96 [facility] Comment on above: Order Comment: Speci men Type: BLOOD SPECIMENOrdering Facility: [facility] Address: [address] [place] [address] Performed By: #### 2 143-6, 57346-8, 94432-9 ####[facility] LABCLIA [id number] [place] [id number] [place] eGFRcr SerPlBld CKD-EPI 2020 102 mL/min/1.73m??? Normal >=60 [facility] Comment on above: Order Comment: Shane kelly Type: BLOOD SPECIMENOrdering Facility: [facility] Address: [address] [place] [address] Result Comment: Trish mated Glomerular Filtration Rate [...] actual GFR. Performed By: #### 2 143-6, 49863-5, 63015-5 ####[facility] LABIA [id number] [place] [address] [place] Glucose [Mass/Vol] 81 mg/dL Normal 74-99 [facility] Comment on above: Order Comment: Shane kelly Type: BLOOD SPECIMENOrdering Facility: [facility] Address: [address] [place] [address] Result Comment: The [place] Diabetes Association (ADA) provides guidance for cutoff [...] Standards of Medical Care in Diabetes 2016, [place] Diabetes Association. Diabetes Care. 2016.39(Suppl 1). Performed By: #### 2 143-6, 98367-4, 91097-5 ####[facility] LABIA [id number] [address] [address] [place] Potassium [Moles/Vol] Normal [facility] Comment on above: Order Comment: Speci men Type: BLOOD SPECIMENOrdering Facility: [facility] Address: [address] [place] [address] Result Comment: Unab le to assay due to interference from hemolysis. Suggest reorder as clinically indicated. Performed By: #### 2 143-6, 08574-0, 21040-6 ####[facility]CLIA [id number] [facility] [id number] [address] [place] Protein [Mass/Vol] 7.3 g/dL Normal 6.3-8.0 [facility] Comment on above: Order Comment: Speci men Type: BLOOD SPECIMENOrdering Facility: [facility] Address: [address] [place] [address] Performed By: #### 2 143-6, 58092-3, ####[facility]CLIA [id number] [address] [place] [address] [place] Sodium [Moles/Vol] 142 mmol/L Normal 136-144 [facility] Comment on above: Order Comment: Speci men Type: BLOOD SPECIMENOrdering Facility: [facility] Address: [address] [place] [address] Performed By: #### 2 143-6, 31787-6, ####[facility]CLIA [id number] [address] [place] [address] [place] Urea nitrogen [Mass/Vol] 18 mg/dL Normal 7-21 [facility] Comment on above: Order Comment: Speci men Type: BLOOD SPECIMENOrdering Facility: [facility] Address: [address] [place], [place] [address] Performed By: #### 2 143-6, 05008-4, 96494-7 ####[facility] LABCLIA [id number] [facility] [id number] [address] [place] Cortis SerPl-mCncon 01-07-20 25 Cortisol [Mass/Vol] 7.2 ug/dL Normal 4.8-19.5 [facility] Comment on above: Order Comment: Shane leticia Type: BLOOD SPECIMENOrdering Facility: [facility] Address: [address] [place] [address] Result Comment: Prov ided reference range is from 6-10 AM sample collection time. Cortisol Reference Range: 6-10 AM = 4.8-19.5 ug/dL, 4-8 PM = 2.5-11.9 ug/dL Performed By: #### 2 143-6, 64566-6, 33040-8 ####[facility]CLIA [id number] [address] [address] [place] HbA1c (Bld)on 01-06-2025 Average glucose Estimated from glycated hemoglobin (Bld) [Mass/Vol] 100 mg/dL Normal [facility] Comment on above: Order Comment: Shane leticia Type: BLOOD SPECIMENOrdering Facility: [facility] Address: [address] [place] [address] Result Comment: eAG: (Estimated average glucose) is a calculated value from HgbA1c and is technology sales representative of the average blood glucose level in the last 2-3 month period. Performed By: #### 5 5454-3 ####[facility] LABCLIA [id number] [address] STATES OF [facility] HbA1c (Bld) [Mass fraction] 5.1 % Normal 4.3-5.6 [facility] Comment on above: Order Comment: Melvinotis kelly Type: BLOOD SPECIMENOrdering Facility: [facility] Address: [address] [place] [address] Result Comment: Amer [place] Diabetes Association guidelines indicate that patients with HgbA1c in the range 5.7-6.4% are at increased risk for development of diabetes, and intervention by lifestyle modification may be beneficial. HgbA1c greater or equal to 6.5% is considered diagnostic of diabetes. Performed By: #### 5 5454-3 ####[facility]CLIA [id number] [address] [address] [place] Lipid 1996 panelon 5 Cholesterol [Mass/Vol] 232 mg/dL High <200 [facility] Comment on above: Order Comment: Speci men Type: BLOOD SPECIMENOrdering Facility: [facility] Address: [address] [place] [address] Result Comment: <200 mg/dL, Desirable 200-239 mg/dL, Borderline high >239 mg/dL, High Performed By: #### 2 143-6, 98679-2, 32616-2 ####[facility] LABCLIA [id number] [facility] [id number] [address] [place] Cholesterol in HDL [Mass/Vol] 67 mg/dL Normal >39 [facility] Comment on above: Order Comment: Speci men Type: BLOOD SPECIMENOrdering Facility: [facility] Address: [address] [place] [address] Result Comment: 40-5 9 mg/dL, Acceptable >59 mg/dL, High: Negative risk factor for coronary heart disease <40 mg/dL, Low: Positive risk factor for coronary heart disease Performed By: #### 2 143-6, 21940-7, 13783-0 ####[facility]CLIA [id number] [facility] [id number] [address] [place] Cholesterol in LDL [Mass/Vol] 151 mg/dL High <100 [facility] Comment on above: Order Comment: Speci men Type: BLOOD SPECIMENOrdering Facility: [facility] Address: [address] [place] [address] Result Comment: <100 mg/dL, Optimal 100-129 mg/dL, Near optimal/above optimal 130-159 mg/dL, Borderline high 160-189 mg/dL, High >189 mg/dL, Very high Secondary prevention optimal LDL Cholesterol levels are recommended to be <70 mg/dL LDL cholesterol is calculated using the Cabezas-NIH equation. Performed By: #### 2 143-6, 50412-4, 65145-9 ####[facility] LABCLIA [id number] [facility] [id number] [address] [place] Cholesterol in LDL/Cholesterol in HDL [Mass ratio] 2.25 {ratio} Normal <2.54 [facility] Comment on above: Order Comment: Speci men Type: BLOOD SPECIMENOrdering Facility: [facility] Address: [address] [place] [address] Result Comment: Basia wesley: 1. National Cholesterol Education Program ATP III Guideline At-A-Glance Quick Desk Reference: National Heart, Lung, and Blood [place]. National Institutes of Health. 2001: NIH Publication No. 01-3305. 2. An International Atherosclerosis Society position paper: global recommendations for the management of dyslipidemia: executive summary, Atherosclerosis. 2014: 232(2):410-413. Performed By: #### 2 143-6, 13372-9, 39541-5 ####[facility] LABCLIA [id number] [place] [address] [place] Cholesterol in VLDL [Mass/Vol] 15 mg/dL Normal <30 [facility] Comment on above: Order Comment: Speci men Type: BLOOD SPECIMENOrdering Facility: [facility] Address: [address] [place] [address] Performed By: #### 2 143-6, 04430-0, 75914-0 ####[facility] LABIA [id number] [place] [address] [place] Cholesterol non HDL [Mass/Vol] 165 mg/dL High <130 [facility] Comment on above: Order Comment: Melvini leticia Type: BLOOD SPECIMENOrdering Facility: [facility] Address: [address] [place] [address] Result Comment: <130 mg/dL, Optimal 130-159 mg/dL, Near optimal/above optimal 160-189 mg/dL, Borderline high 190-219 mg/dL, High >219 mg/dL, Very high Secondary prevention optimal non HDL Cholesterol levels are recommended to be <100 mg/dL Performed By: #### 2 143-6, 27399-4, 93918-4 ####[facility] LABCLIA [id number] [address] [address] [place] Cholesterol.total/Chol esterol in HDL [Mass ratio] 3.46 {ratio} Normal <5.10 [facility] Comment on above: Order Comment: Speci men Type: BLOOD SPECIMENOrdering Facility: [facility] Address: [address] [place] [address] Performed By: #### 2 143-6, 40737-7, 21595-5 ####[facility] LABCLIA [id number] [place] [address] [place] FASTING TIME 13 hrs Normal [facility] Comment on above: Order Comment: Speci men Type: BLOOD SPECIMENOrdering Facility: [facility] Address: [address] [place] [address] Performed By: #### 2 143-6, 99363-3, 91174-8 ####[facility] LABCLIA [id number] [place] [address] [place] Triglyceride [Mass/Vol] 82 mg/dL Normal <150 [facility] Comment on above: Order Comment: Speci men Type: BLOOD SPECIMENOrdering Facility: [facility] Address: [address] [place] [address] Result Comment: <150 mg/dL, Normal 150-199 mg/dL, Borderline high 200-499 mg/dL, High >499 mg/dL, Very high Performed By: #### 2 143-6, 81349-4, 45691-0 ####[facility] LABCLIA [id number] [place] [address] [place] Magnesium SerPl-mCncon 01-06 Magnesium [Mass/Vol] 2.2 mg/dL Normal 1.7-2.3 [facility] Comment on above: Order Comment: Speci men Type: BLOOD SPECIMEN [facility]ing Facility: [facility] Address: [address] [place] [address] Performed By: #### 1 989-3 #### [facility] CLIA [id number] [address] [place] [address] [place] T3Free SerPl-mCncon 01-07-20 25 Free T3 [Mass/Vol] 2.8 pg/mL Normal 2.3-4.1 [facility] Comment on above: Order Comment: Speci men Type: BLOOD SPECIMEN Ordering Facility: [facility] Address: [address] [place] [address] Performed By: #### 1 989-3 #### [facility] CLIA [id number] [address] [place] [address] [place] T4 Free SerPl-mCncon 025 Free T4 [Mass/Vol] 1.7 ng/dL Normal 0.9-1.7 [facility] Comment on above: Order Comment: Speci men Type: BLOOD SPECIMEN Ordering Facility: [facility] Address: [address] [place] [address] Performed By: #### 1 989-3 #### [facility] CLIA [id number] [address] [place] [address] [place] TSH SerPl-aCncon 01-06-2025 TSH Qn 1.540 m[IU]/L Normal 0.270-4.200 [facility] Comment on above: Order Comment: Speci men Type: BLOOD SPECIMEN Ordering Facility: [facility] Address: [address] [place] [address] Result Comment: If t he patient is , TSH reference range varies by gestational period: First Trimester (weeks 9-12): 0.180-2.990 mIU/L Second Trimester: 0.110-3.980 mIU/L Third Trimester: 0.480-4.710 mIU/L Devon Lim et al. A Practical Approach for the Verifications and Determination of Site- and Trimester-Specific Reference Intervals for Thyroid Function tests in . Thyroid, 2019:29:3:412-420. Gordon Cuadra et al. 2017 Guidelines of the [place] Thyroid [employer] for the Diagnosis and Management of Thyroid Disease during and the . Thyroid, 2017:27:3:315-389. Performed By: #### 1 989-3 #### [facility] CLIA [id number] [address] [place], [place] [address] [place] [address] [place] VITAMIN Con 01-06-2025 VITAMIN C 50 umol/L Normal 23-114 [facility] Comment on above: Order Comment: Speci men Type: BLOOD SPECIMEN Ordering Facility: [facility] Address: [address] [place] [address] Result Comment: Lizeth min C concentrations lower [...] developed and its performance characteristics determined by [facility]. It has not been cleared or approved by the US Food and Drug Administration. This test was performed in a CLIA certified laboratory and is intended for clinical purposes. Performed By: [facility] [address] [place] [address] Electrologist: Ry Grey MD, PhD CLIA Number: [id number] Performed By: #### V ITC #### [facility] CLIA [id number] [address] [place], [place] [id number] Neurology Visit Reporton Neurology Visit Report [facility] [address] [facility], [place] [address] OFFICE VISIT Date of Service: 01/05/25 MR#: [id number] Acct: [id number] Name: SAMMY REDD Rep #: [id number] : 1980 Provider: Dr. Juvencio jaime MD Age/Sex: 44/F Location: [facility] Status: Signed [facility] Chief Complaint: Details: Interim History: Sammy returns for follow-up. She has a history of hypothyroidism, migraine headaches, endometriosis status post hysterectomy, ovarian cysts status post bilateral oophorectomy (2021). 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 She saw a neurosurgeon at the [facility] and further evaluation with a cerebral angiogram [...] PCP, is of benefit for her headaches. Wbcg-zmq-ujedwxl ibuprofen and acetaminophen are of benefit for [...] or antiplatelet therapy however, she stated, a glass belt sander recommended that she be treated with Lovenox [...] appropriately; m (more content not included)... Normal [facility] Chlamydia/GC SHANE aptimaon CHLAMY,NUC ACID Negative Normal Negative [facility] Comment on above: Performed By: #### L , #### [facility] Laboratory [address] [place], [place], [id number] GC BY NUC ACID Negative Normal Negative [facility] Comment on above: Result Comment: Perf ormed at: =G - [facility] [address] StreetAbdullahi shannon Maurilio [id number] Child Welfare Consultant: Arin Marquez MD, Phone: [phone] Performed By: #### L 0.1800, #### [facility] Laboratory [address] [place], [place], [id number] HSV 1 AND 2 IgGon 12-24-2024 HSV 1 IgG Non-Reactive Normal Non Reactive [facility] Comment on above: Result Comment: Pl ease note reference interval change HSV-1 IgG testing performed using the Mate[employer] Elecsys HSV-1 IgG assay. Performed By: #### L 3890.6102, L3890.6006, L3890.6301, L3400.1610, L509.8002 ####[facility] [address] [facility]. [place], [place], [address] HSV 2 IgG Non-Reactive Normal Non Reactive [facility] Comment on above: Result Comment: Pl ease [...] Mateo Elecsys HSV-2 IgG assay. Performed at: [address] [id number] Child Welfare Consultant: Jens Jenkins PhD, Phone: [phone] Performed By: #### L 3890.6102, L3890.6006, L3890.6301, L3400.1610, L509.8002 ####[facility] [address] [facility]. [place], [place], [id number] Urine Cultureon 12-23-2024 URC Culture exhibits no growth. Normal [facility] Comment on above: Performed By: #### L 7000.1800, M100.2200 #### [facility] Laboratory [address] [facility]. [place], [place], [id number] Chlamydia trachomatis rRNA d etection by probe and target amplification methodOrdered By: Beth Valenzuela on 12-22-2024 C. trachomatis rRNA SHANE+probe Ql (Unsp spec) Negative Negative [facility] HIVon 12-22-2024 HIV Non-Reactive Normal Nonreactive [facility] Comment on above: Result Comment: Non- Reactive Reactive Repeatedly reactive samples must be confirmed according to CDC recommended confirmatory algorithms. The subresults for either HIVAG or AHIV can be used as an aid in the selection of the confirmation algorithm for reactive samples. [facility]. Order the HIV antibody detection and differentiation: #[id number] Performed By: #### L 3890.6102, L3890.6006, L3890.6301, L3400.1610, L509.8002 ####[facility] [id number] [facility]. [place], [place], [address] Hepatitis C Antibodyon 12-22 Hepatitis C Ab Non-Reactive Normal Nonreactive [facility] Comment on above: Result Comment: Reac tive: Presumptive evidence of antibodies to HCV. Follow CDC recommendations for supplemental testing. Non-Reactive: Antibodies to HCV were not detected; does not exclude the possibility of exposure to HCV Reactive Results are presumptive evidence of antibodies to HCV. Follow CDC recommendations for supplemental testing. Order confirmation testing: HCV Quant by PCR testing - HCVPCR #[id number] Non Reactive: < 0.8 Equivocal: >/= 0.8 to < 1.0 Reactive: >/= 1.0 The CDC requires that a reactive/equivocal HCV antibody result be sent out for confirmation. HCV Quant by PCR testing. Performed By: #### L 3890.6102, L3890.6006, L3890.6301, L3400.1610, L509.8002 ####[facility] [address] [facility]. [place], [place], [id number] L3890.6102on 12-22-2024 HEP B Surf Ag Non-Reactive Normal Nonreactive [facility] Comment on above: Result Comment: Reac tive: Presumptive evidence of HBV. Repeatedly reactive samples must be confirmed using a neutralization test (Elecsys HBsAg Confirmatory Test) Non-Reactive: HBsAg not detected; does not exclude the possibility of exposure to HBV Performed By: #### L 3890.6102, L3890.6006, L3890.6301, L3400.1610, L509.8002 ####[facility] [address] [place], [address] Laboratory - Chemistry and C hemistry - challengeOrdered By: Beth Valenzuela on 12-22-2024 Bilirubin Ql (U) Negative [facility] Glucose Ql (U) Negative [facility] Ketones Ql (U) Small (15+) [facility] pH (U) 6 [pH] [facility] Specific gravity (U) [Rel density] 1.020 [facility] Urobilinogen (U) [Mass/Vol] Negative [facility] Laboratory - Hematology and Cell countsOrdered By: Beth Valenzuela on 12-22-2024 Hemoglobin Ql (U) Negative [facility] Laboratory - Microbiology an d Antimicrobial susceptibilityOrdered By: Beth Valenzuela on 12-22-2024 HBV surface Ag Ql (S) Non-Reactive Nonreactive [facility] Comment on above: Reactive: Presumptiv e evidence of HBV. Repeatedly reactive samples must be confirmed using a neutralization test (Elecsys HBsAg Confirmatory Test)Non-Reactive: HBsAg not detected; does not exclude the possibility of exposure to HBV Laboratory - Specimen inform ationOrdered By: Beth Valenzuela on 12-22-2024 Clarity (U) Cloudy [facility] Color (U) Yellow [facility] Laboratory - UrinalysisOrder ed By: Beth Valenzuela on 12-22-2024 Nitrite Ql (U) Positive [facility] Protein Ql (U) Negative [facility] Neisseria gonorrhoeae nuclei c acid detection by amplified probe techniqueOrdered By: Beth Valenzuela on 12-22-2024 N. gonorrhoeae DNA SHANE+probe Ql (Unsp spec) Negative Negative [facility] Comment on above: Performed at: =Sheldon Raphael norris [address] [id number] Director: Arin Marquez MD, Phone: [phone] No Panel InformationOrdered By: Beth Valenzuela on 12-22-2024 HIV (1&2) Antibody Non-Reactive Nonreactive [facility] Comment on above: Non-ReactiveReactive Repeatedly reactive samples must be confirmed according to CDC recommended confirmatory algorithms. The subresults for either HIVAG or AHIV can be used as an aid in the selection of the confirmation algorithm for reactive samples.Send out specimens with Reactive results to [facility] for confirmation.Order the HIV antibody detection and differentiation: #[id number] POC Bacterial Vaginitis (Rapid) Negative [facility] POC Trichomonas (Rapid) Negative [facility] Urine Leukocytes Positive [facility] Urine Non-Hemolyzed Blood [facility] Lead Caster Helper Office Visit Reporton 12-22-2024 Lead Caster Helper Office Visit Report [facility] [address], [address] [place] [address] OFFICE VISIT Date of Service: 12/22/24 MR#: [id number] Acct: [id number] Name: SAMMY REDD Rep #: [id number] : 1980 Provider: ANDREW Bruce Age/Sex: 44/F Location: [facility] Status: Signed Intake Vital Signs 01/11/24 08:19 12/21/24 16:23 12/22/24 12:59 Height 5 ft 5 ft 5 ft Weight: 193 lb 9 oz BMI 37.8 BP 127/81 H 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 Normal [facility] Serum herpes simplex virus 2 antibody assay by immunoassay (units/volume)Ordered By: Beth Valenzuela on 12-22-2024 HSV 2 Ab IA Qn (S) Non-Reactive Non Reactive [facility] Comment on above: Please note refere [...] HSV-2. HSV-2 IgG testing performed using the RocheDutyCalculatorsys HSV-2 IgG assay.Performed at: [address] Director: Jens Jenkins PhD, Phone: [phone] Syphilis Antibodieson 2024 Syphilis Abs Non-Reactive Normal Nonreactive [facility] Comment on above: Performed By: #### L 3890.6102, L3890.6006, L3890.0038, L3400.1610, L565.9836 ####[facility] [address] [place], [place], [id number] Urine cultureOrdered By: Faraz Valenzuela on 12-22-2024 Bacteria identified Cx Nom (U) Culture exhibits no growth. [facility] Urgent Care Visit Reporton 0 12-21-2024 Urgent Care Visit Report [facility] [address] [place] [address] OFFICE VISIT Date of Service: 12/21/24 MR#: [id number] Acct: [id number] Name: SAMMY REDD Rep #: [id number] : 1980 Provider: SERENA Gregory Age/Sex: 44/F Location: [facility] Status: Signed Intake Vital Signs 01/11/24 08:19 [...] THIGH Chief Complaint: right inner thigh lump Metal Neutralizer Required: No Is patient in pain?: Yes [...] cholecystectomy History of extraction of renal calculus Boaz teeth extracted History of appendectomy Family History [...] today for [facility] evaluation at [facility] for approximately 24-hour history of right medial thigh erythematous closed lesion with localized palpable pain, swelling - w/ c/o MALDONADO and general fatigue and mild numbness/ tingling sensations distal (more content not included)... [facility] Office Visit (FAMPWS ) -- SAMMY REDD ([id number]) 1980 F Date Time Provider Department 10/06/24 9:20 AM [facility] During your visit today, we recorded the following information about you: Pulse Blood pressure Weight 82/minute 126/88 89.1 kg 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 APRN.[employer] 10/06/2024 9:33 AM Signed 10/06/2024 Recording using [employer] software for draft documentation of the visit was discussed with the patient/authorized technology sales representative; all questions welcomed and answered. Patient/authorized technology sales representative agreed to proceed HPI: Sammy Redd is [...] disorder (just had APPT drawn - in [facility]) PUD (peptic ulcer disease) 2009 treated [...] as in (more content not included)... Normal [facility] CT CHEST WO IVCONon 07-29-19 CT CHEST WO IVCON * * *Final Report* * * DATE OF EXAM: Jul 28 2024 9:00AM [facility] 0541 - CT CHEST WO IVCON [...] erna lymphadenopathy is seen within the chest Lathe Turner: MARLON Transcribe Date/Time: Jul 28 2024 4:08P Dictated by : YOMI CASTILLO MD This examination was interpreted and the report reviewed and electronically signed by: YOMI CASTILLO MD on Jul 28 2024 4:12PM EST [id number] Normal [facility] CT Chest WO contraston 07-28 IMPRESSION: No acute pulmonary process is identified. No erna lymphadenopathy is seen within the chest Lathe Turner: PSCNed Transcribe Date/Time: Jul 28 2024 4:08P Dictated by : YOMI CASTILLO MD This examination was interpreted and the report reviewed and electronically signed by: YOMI CASTILLO MD on Jul 28 2024 4:12PM EST DIVISION OF RADIOLOGY * * *Final Report* * * DATE OF EXAM: Jul 28 2024 9:00AM [facility] 0541 - CT CHEST WO IVCON [...] status post cholecystectomy. DIVISION OF RADIOLOGY Provider, [facility] - 07/28/2024 * * *Final Report* * * DATE OF EXAM: Jul 28 2024 9:00AM [facility] 0541 - CT CHEST WO IVCON [...] erna lymphadenopathy is seen within the chest Lathe Turner: PSCB Transcribe Date/Time: Jul 28 2024 4:08P Dictated by : YOMI CASTILLO MD This examination was interpreted and the report reviewed and electronically signed by: YOMI CASTILLO MD on Jul 28 2024 4:12PM EST [facility] Radiology Study observation (narrative) [facility] CT Chest WO contrastOrdered By: Ccf Provider on 07-28-2024 [facility] Breast imaging reportOrdered By: Joselin Pack on 07-25-2024 Study report [facility] Imaging Services [address] [place] [address] SCRN MAMM (CAD)W/CHRISTIANO BILAT MR#: [id number] Acct: [id number] Name: SAMMY REDD Rep #: [id number] : 1980 F 44 From: Efrain Pack DO PCP: Dr. Jose Luis Toledo DO Status: RE G CLI Study:SCRN MAMM (CAD)W/CHRISTIANO BILAT Date of Exa m: 07/25/24 Exam# [id number] Ordering Dr: Jose Luis Toledo DO EXAM: [...] be mailed to the patient. Reading Location: [id number] CC: Dr. Jose Luis Toledo DO ~ Lathe Turner: Signed [facility] SCRN MAMM (CAD)W/CHRISTIANO BILATo n 07-25-2024 SCRN MAMM (CAD)W/CHRISTIANO BILAT [facility] Imaging Services [address] [place] [address] SCRN MAMM (CAD)W/CHRISTIANO BILAT MR#: [id number] Acct: [id number] Name: SAMMY REDD Rep #: [id number] : 1980 F 44 From: Joselin Snyder PCP: Dr. Jose Luis Toledo DO Status: REG CLI Study: SCRN MAMM (CAD)W/CHRISTIANO BILAT Date of Exam: 06/27 05/21 Exam# [id number] Ordering Dr: Jose Luis Toledo DO EXAM: [...] be mailed to the patient. Reading Location: [id number] CC: Dr. Jose Luis Toledo DO Lathe Turner: Signed [facility] 07-12-2024 [facility] Telephone (FAMPWS) -- SAMMY REDD ([id number]) 1980 F Date Time Provider Department 07/12/24 [...] 07/13/2024 1:15 PM Signed Pt informed via [email or web address] message BAILEE [place], MA 07/14/2024 7:46 [...] Date Reviewed: 07/07/2024 Reviewed by: Dee Flores APRN.[employer] - Fully Assessed Reason for Visit: Patient Update [1884] Patient Question [9808] Primary Visit Diagnosis:SOB (shortness of breath) [R06.02] Other Visit Diagnoses:Wheeze [R06.2] Wheezing [R06.2] Order(s):CT CHEST WO NATHALIAON [[id number]] Order #: [id number] FUTURE Prescriptions as of 07/14/2024 - ondansetron [...] hours as needed (muscle spasms). - Insulin Stirling, Disposable, (PEN NEEDLE) 29 gauge x 1/2 [...] - dextroamphetamine-amph (more content not included)... Normal [facility] CBC panel Auto (Bld)on 07-07 Erythrocyte distribution width (RBC) [Ratio] 13.1 % Normal 11.5-15.0 [facility] Comment on above: Order Comment: Speci men Type: BLOOD SPECIMEN Ordering Facility: [facility] Address: [address] [place] [address] Performed By: #### 1 989-3 #### [facility] CLIA [id number] [address] [place] [address] [place] Hematocrit (Bld) [Volume fraction] 44.7 % Normal 36.0-46.0 [facility] Comment on above: Order Comment: Speci men Type: BLOOD SPECIMEN Ordering Facility: [facility] Address: [address] [place] [address] Performed By: #### 1 989-3 #### [facility] CLIA [id number] [address] [place] [address] [place] Hemoglobin (Bld) [Mass/Vol] 14.5 g/dL Normal 11.5-15.5 [facility] Comment on above: Order Comment: Speci men Type: BLOOD SPECIMEN Ordering Facility: [facility] Address: [address] [place] [address] Performed By: #### 1 989-3 #### [facility] CLIA [id number] [address] [place] [address] [place] MCH (RBC) [Entitic mass] 30.1 pg Normal 26.0-34.0 [facility] Comment on above: Order Comment: Speci men Type: BLOOD SPECIMEN Ordering Facility: [facility] Address: [address] [place] [address] Performed By: #### 1 989-3 #### [facility] CLIA [id number] [address] [place] [address] [place] MCHC (RBC) [Mass/Vol] 32.4 g/dL Normal 30.5-36.0 [facility] Comment on above: Order Comment: Speci men Type: BLOOD SPECIMEN Ordering Facility: [facility] Address: [address] [place] [address] Performed By: #### 1 989-3 #### [facility] CLIA [id number] [address] [place] [address] [place] MCV (RBC) [Entitic vol] 92.7 fL Normal 80.0-100.0 [facility] Comment on above: Order Comment: Speci men Type: BLOOD SPECIMEN Ordering Facility: [facility] Address: [address] [place] [address] Performed By: #### 1 989-3 #### [facility] CLIA [id number] [address] [place] [address] [place] Nucleated RBC (Bld) [#/Vol] 10*3/uL Normal <0.01 [facility] Comment on above: Order Comment: Speci men Type: BLOOD SPECIMEN Ordering Facility: [facility] Address: [address] [place] [address] Performed By: #### 1 989-3 #### [facility] CLIA [id number] [address] [place] [address] [place] Platelet mean volume (Bld) [Entitic vol] 10.4 fL Normal 9.0-12.7 [facility] Comment on above: Order Comment: Speci men Type: BLOOD SPECIMEN Ordering Facility: [facility] Address: [address] [place] [address] Performed By: #### 1 989-3 #### [facility] CLIA [id number] [address] [place] [address] [place] Platelets (Bld) [#/Vol] 263 10*3/uL Normal 150-400 [facility] Comment on above: Order Comment: Speci men Type: BLOOD SPECIMEN Ordering Facility: [facility] Address: [address] [place] [address] Performed By: #### 1 989-3 #### [facility] CLIA [id number] [address] [place] [address] [place] RBC (Bld) [#/Vol] 4.82 10*6/uL Normal 3.90-5.20 [facility] Comment on above: Order Comment: Speci men Type: BLOOD SPECIMEN Ordering Facility: [facility] Address: [address] [place] [address] Performed By: #### 1 989-3 #### [facility] CLIA [id number] [address] [place] [address] [place] WBC (Bld) [#/Vol] 13.17 10*3/uL High 3.70-11.00 [facility] Comment on above: Order Comment: Speci men Type: BLOOD SPECIMEN Ordering Facility: [facility] Address: [address] [place] [address] Performed By: #### 1 989-3 #### [facility] CLIA [id number] [address] [place] [address] [place] CNOVon 07-07-2024 [facility] Office Visit (FAMPWS ) -- SAMMY REDD ([id number]) 1980 F Date Time Provider Department 07/07/24 10:40 AM [facility] During your visit today, we recorded the following information about you: Temperature Pulse Blood pressure Weight 98.3 degrees 83/minute 126/70 93 kg Dee Flores APRN.[employer] 07/07/2024 1:59 PM Signed Chief Complaint Patient [...] 10 MG-GUAIFENESIN (more content not included)... Normal [facility] Comprehensive metabolic 2000 panelon 07-07-2024 Albumin [Mass/Vol] 4.5 g/dL Normal 3.9-4.9 [facility] Comment on above: Order Comment: Speci men Type: BLOOD SPECIMENOrdering Facility: [facility] Address: [address] [place] [address] Performed By: #### 2 4322-11, 2131-12 ####[facility] LABCLIA [id number] [place] [address] [place] ALP [Catalytic activity/Vol] 64 U/L Normal 34-123 [facility] Comment on above: Order Comment: Speci men Type: BLOOD SPECIMENOrdering Facility: [facility] Address: [address] [place] [address] Performed By: #### 2 4322-11, 2131-12 ####[facility] LABCLIA [id number] [facility] [place] [address] [place] ALT [Catalytic activity/Vol] 24 U/L Normal 7-38 [facility] Comment on above: Order Comment: Speci men Type: BLOOD SPECIMENOrdering Facility: [facility] Address: [address] [place], [place] [address] Performed By: #### 2 4328, 2131-12 ####[facility] LABCLIA [id number] [facility] [address] [place] [address] [place] Anion gap [Moles/Vol] 12 mmol/L Normal 8-15 [facility] Comment on above: Order Comment: Speci men Type: BLOOD SPECIMENOrdering Facility: [facility] Address: [address] [place] [address] Performed By: #### 2 4328, 2131-12 ####[facility] LABCLIA [id number] [address], [facility]95 [place] AST [Catalytic activity/Vol] 21 U/L Normal 13-35 [facility] Comment on above: Order Comment: Speci men Type: BLOOD SPECIMENOrdering Facility: [facility] Address: [address] [place], [place] [address] Performed By: #### 2 4328, 2131-12 ####[facility] LABCLIA [id number] [address] [place] [address] [place] Bilirubin [Mass/Vol] 0.3 mg/dL Normal 0.2-1.3 [facility] Comment on above: Order Comment: Speci men Type: BLOOD SPECIMENOrdering Facility: [facility] Address: [address] [place], [place] [address] Performed By: #### 2 4323-8, 2131-12 ####[facility] LABCLIA [id number] [address] [place] [address] [place] Calcium [Mass/Vol] 9.6 mg/dL Normal 8.5-10.2 [facility] Comment on above: Order Comment: Speci men Type: BLOOD SPECIMENOrdering Facility: [facility] Address: [address] [place] [address] Performed By: #### 2 4322-11, 2131-12 ####[facility] LABCLIA [id number] [facility] [address] [address] [place] Chloride [Moles/Vol] 104 mmol/L Normal 98-107 [facility] Comment on above: Order Comment: Speci men Type: BLOOD SPECIMENOrdering Facility: [facility] Address: [address] [place], [place] [address] Performed By: #### 2 4322-11, 2131-12 ####[facility] LABCLIA [id number] [place] [id number] [place] CO2 [Moles/Vol] 26 mmol/L Normal 22-30 [facility] Comment on above: Order Comment: Speci men Type: BLOOD SPECIMENOrdering Facility: [facility] Address: [address] [place] [address] Performed By: #### 2 4322-11, 2131-12 ####[facility] LABCLIA [id number] [place] [id number] [place] Creatinine [Mass/Vol] 0.84 mg/dL Normal 0.58-0.96 [facility] Comment on above: Order Comment: Speci men Type: BLOOD SPECIMENOrdering Facility: [facility] Address: [address] [place] [address] Performed By: #### 2 4323-8, 2131-12 ####[facility] LABCLIA [id number] [place] [id number] [place] Creatinine and Glomerular filtration rate.predicted panel (S/P/Bld) 88 mL/min/1.73m??? Normal >=60 [facility] Comment on above: Order Comment: Speci men Type: BLOOD SPECIMENOrdering Facility: [facility] Address: [address] [place] [id number] Result Comment: Trish mated Glomerular Filtration Rate [...] GFR. Performed By: #### 2 432-8, 2131-12 ####[facility] LABIA [id number] [address] [address] [place] Glucose [Mass/Vol] 104 mg/dL High 74-99 [facility] Comment on above: Order Comment: Shane kelly Type: BLOOD SPECIMENOrdering Facility: [facility] Address: [address] [place] [address] Result Comment: The [place] Diabetes [employer] (ADA) provides guidance for cutoff [...] Standards of Medical Care in Diabetes 2016, [place] [employer]. Diabetes Care. 2016.39(Suppl 1). Performed By: #### 2 4323-8, 2131-12 ####[facility] LABIA [id number] [address] [address] [place] Potassium [Moles/Vol] 4.4 mmol/L Normal 3.7-5.1 [facility] Comment on above: Order Comment: Shane [facility] Type: BLOOD SPECIMENOrdering Facility: [facility] Address: [address] [place] [phone] Performed By: #### 2 43207-02, 2131-12 ####[facility] LABCLIA [id number] [address] [place] [address] [place] Protein [Mass/Vol] 7.0 g/dL Normal 6.3-8.0 [facility] Comment on above: Order Comment: Speci men Type: BLOOD SPECIMENOrdering Facility: [facility] Address: [address] [place] [address] Performed By: #### 2 4322-11, 2131-12 ####[facility] LABCLIA [id number] [address] [place] [address] [place] Sodium [Moles/Vol] 142 mmol/L Normal 136-144 [facility] Comment on above: Order Comment: Speci men Type: BLOOD SPECIMENOrdering Facility: [facility] Address: [address] [place] [address] Performed By: #### 2 4322-11, 2131-12 ####[facility] LABCLIA [id number] [address] [place] [address] [place] Urea nitrogen [Mass/Vol] 19 mg/dL Normal 7-21 [facility] Comment on above: Order Comment: Speci men Type: BLOOD SPECIMENOrdering Facility: [facility] Address: [address] [place] [address] Performed By: #### 2 4322-11, 2131-12 ####[facility] LABCLIA [id number] [address] [place] [address] [place] Vit B12 [facility]2 025 Cobalamin (Vitamin B12) [Mass/Vol] 1263 pg/mL High 232-1245 [facility] Comment on above: Order Comment: Speci men Type: BLOOD SPECIMENOrdering Facility: [facility] Address: [address] [place], [place] [address] Performed By: #### 2 4322-11, 2131-12 ####[facility] LABCLIA [id number] [address] [address] [place] XR CHEST 2V [...] tissues: Unremarkable. IMPRESSION: No acute radiographic abnormality. Lathe Turner: [facility] Transcribe Date/Time: Jul 07 2024 3:13P Dictated by : ISSAC SANTANA MD This examination was interpreted and the report reviewed and electronically signed by: ISSAC SANTANA MD on Jul 07 2024 3:13PM EST [id number] Normal [facility] XR Chest PA and Lateralon IMPRESSION: No acute radiographic abnormality. Lathe Turner: [facility] Transcribe Date/Time: Jul 07 2024 3:13P [...] Unremarkable. IMPRESSION IMPRESSION: No acute radiographic abnormality. Lathe Turner: [facility] Transcribe Date/Time: Jul 07 2024 3:13P Dictated by : ISSAC SANTANA MD This examination was interpreted and the report reviewed and electronically signed by: ISSAC SANTANA MD on Jul 07 2024 3:13PM [facility] Radiology Study observation (narrative) [facility] XR Chest PA and LateralOrder ed By: Ccf Provider on 07-07-2024 [facility] CNOVon 07-05-2024 CNOV Office Visit (FAMPWS ) -- SAMMY REDD ([id number]) 1980 F Date Time Provider Department 07/05/24 [...] disorder (just had APPT drawn - in [facility] - [facility]) PUD (peptic ulcer disease) 2010 treated [...] 8 hours as needed (muscle spasms). Insulin Stirling, Disposable, (PEN NEEDLE) 29 gauge x 1/2 1 Each once daily. Cholecalciferol, Vitamin D3, 125 mcg (5,000 unit) cap Take 1 capsule by mouth every morning. In addition to 1,000 international unit(s) every mor (more content not included)... Normal [facility] CNOVon 06-30-2024 CNOV Office Visit (FAMPWS ) -- SAMMY REDD ([id number]) 1980 F Date Time Provider Department 06/30/24 9:40 AM [facility] During your visit today, we recorded the following information about you: Temperature Pulse Blood pressure Weight 99.9 degrees 107/minute 128/78 94.6 kg Dee Flores APRN.[employer] 06/30/2024 1:07 PM Signed Chief Complaint Patient [...] disorder (just had APPT drawn - [facility]) PUD (peptic ulcer disease) 2009 treated [...] Grandmother Al (more content not included)... [facility] -- SAMMY REDD ([id number]) 1980 F Date Time Provider Department 06/30/24 DEE FLORES During your visit today, we recorded the following information about you: Shiloh Harris LPN 06/30/2024 11:20 AM Signed Milady from [employer] calling asking for another diagnosis for the [...] bronchitis type (HCC) [J42] Order(s):NEBULIZER, WITH COMPRESSOR [[id number]] Order #: [id number] Prescriptions as of 06/30/2024 - benzonatate (TESSALON [...] hours as needed (muscle spasms). - Insulin Stirling, Disposable, (PEN NEEDLE) 29 gauge x 1/2 [...] 21GX1.5) 1 (more content not included)... Normal [facility] UA DIP, URINE (POC)on 2024 BILIRUBIN UA (POCT) Negative Negative [facility] CLARITY UA (POCT) Clear [facility] COLOR UA (POCT) Other [facility] GLUCOSE UA (POCT) Negative Negative mg/dL [facility] Hemoglobin Ql (U) Negative Negative [facility] KETONE UA (POCT) Negative Negative mg/dL [facility] LEUKOCYTES UA (POCT) Negative Negative [facility] NITRITE UA (POCT) Negative Negative [facility] PH UA (POCT) 6 4.5 - 8.0 [facility] Protein Ql (U) Negative Negative mg/dL [facility] SPECIFIC GRAVITY UA (POCT) 1.015 1.005 - 1.030 [facility] UROBILINOGEN UA (POCT) 0.2 Georgina l E.U./dL [facility] Location:[address], [place], [place], [address] [place] [address] POINT OF CARE [facility] XR CHEST 2V FRONTAL/LATon XR CHEST 2V [...] upper abdomen. IMPRESSION: No acute radiographic abnormality. Lathe Turner: [facility] Transcribe Date/Time: Jun 30 2024 10:35A Dictated by : HAMIDA MARIA DO This examination was interpreted and the report reviewed and electronically signed by: HAMIDA MARIA DO on Jun 30 2024 10:36AM EST [id number] Normal [facility] XR Chest PA and Lateralon IMPRESSION: No acute radiographic abnormality. Lathe Turner: [facility] Transcribe Date/Time: Jun 30 2024 10:35A [...] DIVISION OF RADIOLOGY Provider, Anny Andrew patricio Warnock - 06/30/2024 * * *Final Report* * [...] abdomen. IMPRESSION IMPRESSION: No acute radiographic abnormality. Lathe Turner: [facility] Transcribe Date/Time: Jun 30 2024 10:35A Dictated by : HAMIDA MARIA DO This examination was interpreted and the report reviewed and electronically signed by: HAMIDA MARIA DO on Jun 30 2024 10:36AM EST [facility] Radiology Study observation (narrative) [facility] XR Chest PA and LateralOrder ed By: Ccf Provider on 06-30-2024 [facility] CNOVon 06-28-2024 CNOV Office Visit (UCWSTR ) -- SAMMY REDD ([id number]) 1980 F Date Time Provider Department 06/28/24 4:15 PM DEMETRIS BRADFORD WSTR During your visit today, we recorded the following information about you: Temperature Pulse Respiration Blood pressure 98.3 degrees 90/minute 18/minute 118/80 Weight 94.3 kg Demetris Bradford APRN.[employer] 06/28/2024 4:48 PM Signed [facility] [...] disorder (just had APPT drawn - in [facility]) PUD (peptic ulcer disease) 2009 treated [...] 8 hours as needed (muscle spasms). Insulin Stirling, Disposable, (PEN NEEDLE) 29 gauge x 1/2 [...] Syringe with (more content not included)... 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 Using ice [...] disorder (just had APPT drawn - [facility]) PUD (peptic ulcer disease) 2009 treated [...] File Prior to Visit Medication Sig Insulin Stirling, Disposable, (PEN NEEDLE) 29 gauge x 1/2 [...] 0.6 mg/ (more content not included)... Normal [facility] 04-11-2024 [facility]AMWS[facility] -- SAMMY REDD ([id number]) 1980 F Date Time Provider Department 04/11/24 JOSE LUIS TOLEDO [facility] During your visit today, we recorded the [...] bowel syndrome (more content not included)... [facility] Telephone (FAMPWS) -- SAMMY REDD ([id number]) 1980 F Date Time Provider Department 04/07/24 [facility] During your visit today, we recorded the following information about you: 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 APRN.[employer] 04/07/2024 9:47 AM Signed Please call patient [...] stone [Z87.442] (more content not included)... Normal [facility] ECHOon 04-05-2024 Echocardiography Echocardiography Rep ort: Transthoracic Echo [facility] Date of service: 04/05/2024 8:18:19 AM RAMP AGENT Ordering physician: JOSE LUIS TOLEDO Indication: Shortness [...] volume 61 ml (biplane A-L) 31 ml/m Aayla <= 34 LV ID (diastole) 4.5 cm [...] * * Final * * * CC [employer] : [id number] Normal [facility] US THYROID/PARATHYROIDon US THYROID/PARATHYROID * * *Final [...] Echogenicity cannot be determined, 1 point Shape: Ppajn-bfwp-isim, 0 points Margin: Margin cannot be determined, [...] not consider stability or previous biopsy results. Lathe Turner: MARLON Transcribe Date/Time: Apr 07 2024 6:47A Dictated by : HAMIDA MARIA DO This examination was interpreted and the report reviewed and electronically signed by: HAMIDA MARIA DO on Apr 07 2024 6:51AM EST [id number] Normal [facility] 25(OH)D3 SerPl-mCncon 2023 25-hydroxyvitamin D3 [Mass/Vol] 32.6 ng/mL Normal 31.0-80.0 [facility] Comment on above: Order Comment: Shane kelly Type: BLOOD SPECIMEN [facility] Address: [address] [place] [address] Performed By: #### 1 989-3 #### [facility] CLIA [id number] [address] [place] [address] [place] CBC W Auto Differential pane l (Bld)on 04-04-2024 Basophils (Bld) [#/Vol] 0.06 10*3/uL Normal <0.11 [facility] Comment on above: Order Comment: Shane kelly Type: BLOOD SPECIMEN [facility]: [facility] Address: [address] [place] [address] Performed By: #### 1 989-3 #### [facility] CLIA [id number] [address] [place] [address] [place] Basophils/100 WBC (Bld) 0.7 % Normal [facility] Comment on above: Order Comment: Shane kelly Type: BLOOD SPECIMEN [facility] Address: [address] [place] [address] Performed By: #### 1 989-3 #### [facility] CLIA [id number] [address] [place] [address] [place] Differential cell count method Nom (Bld) Auto Normal [facility] Comment on above: Order Comment: Speci men Type: BLOOD SPECIMEN [facility]: [facility] Address: [address] [place] [address] Performed By: #### 1 989-3 #### [facility] CLIA [id number] [address] [place] [address] [place] Eosinophils (Bld) [#/Vol] 0.26 10*3/uL Normal <0.46 [facility] Comment on above: Order Comment: Speci men Type: BLOOD SPECIMEN [facility]: [facility] Address: [address] [place] [address] Performed By: #### 1 989-3 #### [facility] CLIA [id number] [address] [place] [address] [place] Eosinophils/100 WBC (Bld) 3.1 % Normal [facility] Comment on above: Order Comment: Speci men Type: BLOOD SPECIMEN [facility] Address: [address] [place] [address] Performed By: #### 1 989-3 #### [facility] CLIA [id number] [address] [place] [address] [place] Erythrocyte distribution width (RBC) [Ratio] 13.2 % Normal 11.5-15.0 [facility] Comment on above: Order Comment: Speci men Type: BLOOD SPECIMEN [facility]: [facility] Address: [address] [place] [address] Performed By: #### 1 989-3 #### [facility] CLIA [id number] [address] [place] [address] [place] Hematocrit (Bld) [Volume fraction] 44.0 % Normal 36.0-46.0 [facility] Comment on above: Order Comment: Speci men Type: BLOOD SPECIMEN [facility]: [facility] Address: [address] [place] [address] Performed By: #### 1 989-3 #### [facility] CLIA [id number] [address] [place] [address] [place] Hemoglobin (Bld) [Mass/Vol] 14.3 g/dL Normal 11.5-15.5 [facility] Comment on above: Order Comment: Speci men Type: BLOOD SPECIMEN [facility]: [facility] Address: [address] [place] [address] Performed By: #### 1 989-3 #### [facility] CLIA [id number] [address] [place] [address] [place] Immature granulocytes (Bld) [#/Vol] 10*3/uL Normal <0.10 [facility] Comment on above: Order Comment: Speci men Type: BLOOD SPECIMEN [facility]: [facility] Address: [address] [place] [address] Performed By: #### 1 989-3 #### [facility] CLIA [id number] [address] [place] [address] [place] Immature granulocytes/100 WBC (Bld) 0.2 % Normal [facility] Comment on above: Order Comment: Speci men Type: BLOOD SPECIMEN [facility]: [facility] Address: [address] [place] [address] Performed By: #### 1 989-3 #### [facility] CLIA [id number] [address] [place] [address] [place] Lymphocytes (Bld) [#/Vol] 2.56 10*3/uL Normal 1.00-4.00 [facility] Comment on above: Order Comment: Speci men Type: BLOOD SPECIMEN Order[facility]: [facility] Address: [address] [place] [address] Performed By: #### 1 989-3 #### [facility] CLIA [id number] [address] [place] [address] [place] Lymphocytes/100 WBC (Bld) 30.6 % Normal [facility] Comment on above: Order Comment: Speci men Type: BLOOD SPECIMEN Order[facility]: [facility] Address: [address] [place] [address] Performed By: #### 1 989-3 #### [facility] CLIA [id number] [address] [place] [address] [place] MCH (RBC) [Entitic mass] 30.3 pg Normal 26.0-34.0 [facility] Comment on above: Order Comment: Speci men Type: BLOOD SPECIMEN Ordering [facility]: [facility] Address: [address] [place] [address] Performed By: #### 1 989-3 #### [facility] CLIA [id number] [address] [place] [address] [place] MCHC (RBC) [Mass/Vol] 32.5 g/dL Normal 30.5-36.0 [facility] Comment on above: Order Comment: Speci men Type: BLOOD SPECIMEN Ordering Facility: [facility] Address: [address] [place] [address] Performed By: #### 1 989-3 #### [facility] CLIA [id number] [address] [place] [address] [place] MCV (RBC) [Entitic vol] 93.2 fL Normal 80.0-100.0 [facility] Comment on above: Order Comment: Speci men Type: BLOOD SPECIMEN Ordering Facility: [facility] Address: [address] [place] [address] Performed By: #### 1 989-3 #### [facility] CLIA [id number] [address] [place] [address] [place] Monocytes (Bld) [#/Vol] 0.47 10*3/uL Normal <0.87 [facility] Comment on above: Order Comment: Speci men Type: BLOOD SPECIMEN Ordering Facility: [facility] Address: [address] [place] [address] Performed By: #### 1 989-3 #### [facility] CLIA [id number] [address] [place] [address] [place] Monocytes/100 WBC (Bld) 5.6 % Normal [facility] Comment on above: Order Comment: Speci men Type: BLOOD SPECIMEN Ordering Facility: [facility] Address: [address] [place] [address] Performed By: #### 1 989-3 #### [facility] CLIA [id number] [address] [place] [address] [place] Neutrophils (Bld) [#/Vol] 4.99 10*3/uL Normal 1.45-7.50 [facility] Comment on above: Order Comment: Speci men Type: BLOOD SPECIMEN Ordering [facility]: [facility] Address: [address] [place] [address] Performed By: #### 1 989-3 #### [facility] CLIA [id number] [address] [place] [address] [place] Neutrophils/100 WBC (Bld) 59.8 % Normal [facility] Comment on above: Order Comment: Speci men Type: BLOOD SPECIMEN Ordering Facility: [facility] Address: [address] [place] [address] Performed By: #### 1 989-3 #### [facility] CLIA [id number] [address] [place] [address] [place] Nucleated RBC (Bld) [#/Vol] 10*3/uL Normal <0.01 [facility] Comment on above: Order Comment: Speci men Type: BLOOD SPECIMEN Ordering Facility: [facility] Address: [address] [place] [address] Performed By: #### 1 989-3 #### [facility] CLIA [id number] [address] [place] [address] [place] Nucleated RBC/100 WBC (Bld) [Ratio] 0.0 /100 WBC Normal [facility] Comment on above: Order Comment: Speci men Type: BLOOD SPECIMEN Ordering Facility: [facility] Address: [address] [place] [address] Performed By: #### 1 989-3 #### [facility] CLIA [id number] [address] [place] [address] [place] Platelet mean volume (Bld) [Entitic vol] 11.0 fL Normal 9.0-12.7 [facility] Comment on above: Order Comment: Speci men Type: BLOOD SPECIMEN Ordering Facility: [facility] Address: [address] [place] [address] Performed By: #### 1 989-3 #### [facility] CLIA [id number] [address] [place] [address] [place] Platelets (Bld) [#/Vol] 267 10*3/uL Normal 150-400 [facility] Comment on above: Order Comment: Speci men Type: BLOOD SPECIMEN Ordering Facility: [facility] Address: [address] [place] [address] Result Comment: No c lot detected. Performed By: #### 1 989-3 #### [facility] CLIA [id number] [address] [place] [address] [place] RBC (Bld) [#/Vol] 4.72 10*6/uL Normal 3.90-5.20 [facility] Comment on above: Order Comment: Speci men Type: BLOOD SPECIMEN Ordering Facility: [facility] Address: [address] [place] [address] Performed By: #### 1 989-3 #### [facility] CLIA [id number] [address] [place] [address] [place] WBC (Bld) [#/Vol] 8.36 10*3/uL Normal 3.70-11.00 [facility] Comment on above: Order Comment: Speci men Type: BLOOD SPECIMEN Ordering Facility: [facility] Address: [address] [place] [address] Performed By: #### 1 989-3 #### [facility] CLIA [id number] [address] [place] [id number] [facility] CNOVon 04-04-2024 CNOV Office Visit (FAMPWS ) -- SAMMY REDD ([id number]) 1980 F Date Time Provider Department 04/04/24 [...] of VIET and BSO. Was seen by DRIVER TRAINEE whom didn't feel this was related to [...] disorder (just had APPT drawn - in [facility] - [facility]) PUD (peptic ulcer disease) 2010 treated [...] liraglutide (VICTO (more content not included)... Normal [facility] Comprehensive metabolic 2000 panelon 04-04-2024 Albumin [Mass/Vol] 4.2 g/dL Normal 3.9-4.9 [facility] Comment on above: Order Comment: Speci men Type: BLOOD SPECIMENOrdering Facility: [facility] Address: [address] [place] [address] Performed By: #### 2 4323-8, 3051-0, 3016-3, 3024-7 ####[facility] [id number] [place] [address] [place] ALP [Catalytic activity/Vol] 66 U/L Normal 34-123 [facility] Comment on above: Order Comment: Speci men Type: BLOOD SPECIMENOrdering Facility: [facility] Address: [address] [place] [address] Performed By: #### 2 4323-8, 3051-0, 3016-3, 3024-7 ####[facility] [id number] [place] [address] [place] ALT [Catalytic activity/Vol] 19 U/L Normal 7-38 [facility] Comment on above: Order Comment: Speci men Type: BLOOD SPECIMENOrdering Facility: [facility] Address: [address] [place] [address] Performed By: #### 2 4323-8, 3051-0, 3016-3, 302-7 ####[facility] [id number] [place] [address] [place] Anion gap [Moles/Vol] 10 mmol/L Normal 8-15 [facility] Comment on above: Order Comment: Speci men Type: BLOOD SPECIMENOrdering Facility: [facility] Address: [address] [place] [address] Performed By: #### 2 4323-8, 3051-0, 3015-3, 7 ####[facility] [id number] [place] [address] [place] AST [Catalytic activity/Vol] 25 U/L Normal 13-35 [facility] Comment on above: Order Comment: Speci men Type: BLOOD SPECIMENOrdering Facility: [facility] Address: [address] [place] [address] Result Comment: Resu lts may be falsely increased due to interference from hemolysis. Suggest reorder as clinically indicated. Performed By: #### 2 4323-8, 3051-0, 3015-3, 7 ####[facility] [id number] [place] [id number] [place] Bilirubin [Mass/Vol] 0.4 mg/dL Normal 0.2-1.3 [facility] Comment on above: Order Comment: Speci men Type: BLOOD SPECIMENOrdering Facility: [facility] Address: [address] [place] [address] Performed By: #### 2 4323-8, 3051-0, 3016-3, 3023-7 ####[facility] [id number] [address] [address] [place] Calcium [Mass/Vol] 9.6 mg/dL Normal 8.5-10.2 [facility] Comment on above: Order Comment: Speci men Type: BLOOD SPECIMENOrdering Facility: [facility] Address: [address] [place] [address] Performed By: #### 2 4323-8, 3051-0, 3016-3, 302-7 ####[facility] [id number] [place] [address] [place] Chloride [Moles/Vol] 104 mmol/L Normal 98-107 [facility] Comment on above: Order Comment: Speci men Type: BLOOD SPECIMENOrdering Facility: [facility] Address: [address] [place] [address] Performed By: #### 2 4323-8, 305-0, 3015-3, 3023-7 ####[facility] [id number] [place] [address] [place] CO2 [Moles/Vol] 27 mmol/L Normal 22-30 [facility] Comment on above: Order Comment: Speci men Type: BLOOD SPECIMENOrdering Facility: [facility] Address: [address] [place] [address] Performed By: #### 2 4323-8, 305-0, 3015-3, 3023-7 ####[facility] [id number] [address] [address] [place] Creatinine [Mass/Vol] 0.69 mg/dL Normal 0.58-0.96 [facility] Comment on above: Order Comment: Speci men Type: BLOOD SPECIMENOrdering Facility: [facility] Address: [address] [place] [address] Performed By: #### 2 4323-8, 3051-0, 3015-3, 302-7 ####[facility] [id number] [address] [place] Creatinine and Glomerular filtration rate.predicted panel (S/P/Bld) 110 mL/min/1.73m??? Normal >=60 [facility] Comment on above: Order Comment: Shane kelly Type: BLOOD SPECIMENOrdering Facility: [facility] Address: [address] [place] [address] Result Comment: Trish mated Glomerular Filtration Rate [...] By: #### 2 4323-8, 3051-0, 3016-3, 3024-7 ####[facility]IA [id number] [place] [address] [place] Glucose [Mass/Vol] 89 mg/dL Normal 74-99 [facility] Comment on above: Order Comment: Shane kelly Type: BLOOD SPECIMENOrdering Facility: [facility] Address: [address] [place] [address] Result Comment: The [place] Diabetes Association (ADA) provides guidance for cutoff [...] Standards of Medical Care in Diabetes 2016, [place] Diabetes Association. Diabetes Care. 2016.39(Suppl 1). Performed By: #### 2 4323-8, 3051-0, 3016-3, 3024-7 ####[facility] [id number] [address] [address] [place] Potassium [Moles/Vol] 4.5 mmol/L Normal 3.7-5.1 [facility] Comment on above: Order Comment: Speci men Type: BLOOD SPECIMENOrdering Facility: [facility] Address: [address] [place] [address] Performed By: #### 2 4323-8, 3051-0, 3015-3, 3023-7 ####[facility] [id number] [address] [address] [place] Protein [Mass/Vol] 7.2 g/dL Normal 6.3-8.0 [facility] Comment on above: Order Comment: Speci men Type: BLOOD SPECIMENOrdering Facility: [facility] Address: [address] [place] [address] Performed By: #### 2 4323-8, 305-0, 3015-3, 7 ####[facility] [id number] [place] [address] [place] Sodium [Moles/Vol] 141 mmol/L Normal 136-144 [facility] Comment on above: Order Comment: Speci men Type: BLOOD SPECIMENOrdering Facility: [facility] Address: [address] [place] [address] Performed By: #### 2 4323-8, 305-0, 3015-3, 7 ####[facility] [id number] [address] [address] [place] Urea nitrogen [Mass/Vol] 13 mg/dL Normal 7-21 [facility] Comment on above: Order Comment: Speci men Type: BLOOD SPECIMENOrdering Facility: [facility] Address: [address] [place] [address] Performed By: #### 2 4323-8, 305-0, 3015-3, 302-7 ####[facility] [id number] [place] [address] [place] HbA1c (Bld)on 04-04-2024 Average glucose Estimated from glycated hemoglobin (Bld) [Mass/Vol] 108 mg/dL Normal [facility] Comment on above: Order Comment: Shane kelly Type: BLOOD SPECIMEN Ordering Facility: [facility] Address: [address] [place] [address] Result Comment: eAG: (Estimated average glucose) is a calculated value from HgbA1c and is technology sales representative of the average blood glucose level in the last 2-3 month period. Performed By: #### 1 989-3 #### [facility] [place] [id number] [address] [place] [address] [place] HbA1c (Bld) [Mass fraction] 5.4 % Normal 4.3-5.6 [facility] Comment on above: Order Comment: Shane kelly Type: BLOOD SPECIMEN Ordering Facility: [facility] Address: [address] [place] [address] Result Comment: [place] Diabetes Association guidelines indicate that patients with HgbA1c in the range 5.7-6.4% are at increased risk for development of diabetes, and intervention by lifestyle modification may be beneficial. HgbA1c greater or equal to 6.5% is considered diagnostic of diabetes. Performed By: #### 1 989-3 #### [facility] IA [id number] [address] [place] [address] [place] Insulin SerPl-aCncon 024 Insulin Qn 7.4 u[IU]/mL Normal 3.0-25.0 [facility] Comment on above: Order Comment: Shane kelly Type: BLOOD SPECIMEN Ordering Facility: [facility] Address: [address] [place] [address] Performed By: #### 1 989-3 #### [facility] CLIA [id number] [address] [place] [address] [place] T3Free SerPl-mCncon 04-04-20 24 Free T3 [Mass/Vol] 2.7 pg/mL Normal 2.3-4.1 [facility] Comment on above: Order Comment: Shane kelly Type: BLOOD SPECIMENOrdering Facility: [facility] Address: [address] [place] [address] Performed By: #### 2 4323-8, 3051-0, 3016-3, 3024-7 ####[facility] [id number] [place] [address] [place] T4 Free SerPl-mCncon 024 Free T4 [Mass/Vol] 1.4 ng/dL Normal 0.9-1.7 [facility] Comment on above: Order Comment: Shane kelly Type: BLOOD SPECIMENOrdering Facility: [facility] Address: [address] [place] [address] Performed By: #### 2 4323-8, 3051-0, 3016-3, 3024-7 ####[facility] [id number] [place] [address] [place] TSH SerPl-aCncon 04-04-2024 TSH Qn 0.902 m[IU]/L Normal 0.270-4.200 [facility] Comment on above: Order Comment: Shane kelly Type: BLOOD SPECIMENOrdering Facility: [facility] Address: [address] [place] [address] Result Comment: If t he patient is , TSH reference range varies by gestational period: First Trimester (weeks 9-12): 0.180-2.990 mIU/L Second Trimester: 0.110-3.980 mIU/L Third Trimester: 0.480-4.710 mIU/L Devon Lim et al. A Practical Approach for the Verifications and Determination of Site- and Trimester-Specific Reference Intervals for Thyroid Function tests in . Thyroid, 2019:29:3:412-420. Gordon Cuadra, et al. 2017 Guidelines of the [place] Thyroid Association for the Diagnosis and Management of Thyroid Disease during and the . Thyroid, 2017:27:3:315-389. Performed By: #### 2 4323-8, 3051-0, 3016-3, 3024-7 ####[facility] [id number] [address] [place] Eliseo 02-09-2024 CNPN Telephone (FAMPWS) -- SAMMY REDD ([id number]) 1980 F Date Time Provider Department 02/09/24 [...] deficiency [E5 (more content not included)... Normal [facility] CTA Head W/WO Contraston CTA Head W/WO Contrast [facility] [address] [place], [place] [address] CTA Head W/WO Contrast MR#: [id number] Acct: [id number] Name: SAMMY REDD Rep #: [id number] : 1980 F 44 From: Bill Waletr MD PCP: Dr. Jose Luis Toledo, DO Status: REG CLI Study: CTA Head W/WO Contrast Date of Exam: 02/08/24 Exam# [id number] Ordering Dr: Juvencio Oneal MD [id number] STUDY: CT BRAIN WITH AND WITHOUT CONTRAST [...] Luis Toledo DO; Dr. Juvencio Oneal MD Lathe Turner: Signed Normal [facility] CT Abdomen and Pelvis W cont rast Dorie 01-14-2024 IMPRESSION: No acute findings or significant pathology. Lathe Turner: MARLON Transcribe Date/Time: Jan 14 2024 2:23P Dictated by : TANYA NAVARRO MD This examination was interpreted and the report reviewed and electronically signed by: TANYA NAVARRO MD on Jan 14 2024 4:44PM [facility] DIVISION OF RADIOLOGY * * *Final Report* * * DATE OF EXAM: Jan 14 2024 11:48AM [facility] 0530 - CT ABD/PEL W IVCON [...] umbilical hernia, stable. DIVISION OF RADIOLOGY Provider, [facility] - 01/14/2024 * * *Final Report* * * DATE OF EXAM: Jan 14 2024 11:48AM [facility] 0530 - CT ABD/PEL W IVCON [...] IMPRESSION: No acute findings or significant pathology. Lathe Turner: PSCB Transcribe Date/Time: Jan 14 2024 2:23P Dictated by : TANYA NAVARRO MD This examination was interpreted and the report reviewed and electronically signed by: TANYA NAVARRO MD on Jan 14 2024 4:44PM EST [facility] Radiology Study observation (narrative) [facility] CT Abdomen and Pelvis W cont rast IVOrdered By: Ccf Provider on 01-14-2024 [facility] CREATININE BLDon 01-04-2024 Creatinine [Mass/Vol] 0.68 mg/dL 0.58 - 0.96 mg/dL [facility] GFR/1.73 sq M.predicted among non-blacks MDRD (S/P/Bld) [Vol rate/Area] 111 mL/min/{1.73_m2} - PINF [facility] Comment on above: Estimated Glomerular Filtration Rate [...] Interpretation and review of laboratory results Normal [facility] Eliseo 10-02-2023 MIGNON Telephone (URCANT) -- SAMMY REDD ([id number]) 1980 F Date Time Provider Department 10/02/23 PERLITA CUNNINGHAM During your visit today, we recorded the following information about you: Paul Reevese 10/02/2023 2:23 PM Signed ----- Message from Shahnaz De León MA sent at 10/01/2023 9:40 AM EDT ----- Left vm for pt to call office back. Shahnaz De León MA ----- Message ----- From: Perlita Cunningham APRN.[employer] Sent: 10/01/2023 9:30 AM EDT To: Tennille Gilbert Clinical Pool CT did not show any kidney stones. Thanks, Perlita Cunningham APRN.[employer] Leandro Karuna 10/02/2023 2:24 PM Signed Called and spoke with patient. Informed her of message. Verbalized understanding and thanks. Karuna Reeves GUEST SERVICES COORDINATOR Allergies As of Date: 10/02/2023 Noted Allergy [...] 06/30/2022 Ureteral stone (more content not included)... [facility] Telephone ([id number]) -- SAMMY REDD ([id number]) 1980 F Date Time Provider Department 10/01/23 NELIDA IRVING [id number] During your visit today, we recorded the [...] DE LEÓN (more content not included)... Normal [facility] BLADDER SCANon 09-22-2023 PVR 0ml [facility] CNOVon 09-22-2023 CNOV Office Visit (URCA52 2) -- SAMMY REDD ([id number]) 1980 F Date Time Provider Department 09/22/23 9:30 AM NELIDA IRVING [id number] During your visit today, we recorded the following information about you: Nelida Irving APRN.[employer] 09/22/2023 9:44 AM Signed [facility] ESTABLISHED PATIENT OFFICE VISIT Patient presents with: [...] disorder (just had APPT drawn - in [facility]) PUD (peptic ulcer disease) 2009 treated [...] Breast Canc (more content not included)... Normal [facility] UA DIP, URINE (POC)on 2023 BILIRUBIN UA (POCT) Negative Negative Ron [facility] CLARITY UA (POCT) Clear [facility] COLOR UA (POCT) Yellow [facility] GLUCOSE UA (POCT) Negative Negative mg/dL [facility] Hemoglobin Ql (U) Negative Negative [facility] KETONE UA (POCT) Negative Negative mg/dL [facility] LEUKOCYTES UA (POCT) Negative Negative [facility] NITRITE UA (POCT) Negative Negative [facility] PH UA (POCT) 7.0 4.5 - 8.0 [facility] Protein Ql (U) Negative Negative mg/dL [facility] SPECIFIC GRAVITY UA (POCT) 1.025 1.005 - 1.030 [facility] UROBILINOGEN UA (POCT) 0.2 Georgina l E.U./dL [facility] XR Abdomen Supine and Uprigh ton 09-20-2023 IMPRESSION: Nonspecific nonobstructive bowel gas pattern. Lathe Turner: MARLON Transcribe Date/Time: Sep 20 2023 3:18P Dictated by : ERNA NORIEGA MD This examination was interpreted and the report reviewed and electronically signed by: ERNA NORIEGA MD on Sep 20 2023 3:19PM [facility] DIVISION OF RADIOLOGY * * *Final Report* [...] are grossly normal. DIVISION OF RADIOLOGY Provider, [facility] - 09/20/2023 * * *Final Report* * [...] IMPRESSION IMPRESSION: Nonspecific nonobstructive bowel gas pattern. Lathe Turner: [facility] Transcribe Date/Time: Sep 20 2023 3:18P Dictated by : ERNA NORIEGA MD This examination was interpreted and the report reviewed and electronically signed by: ERNA NORIEGA MD on Sep 20 2023 3:19PM EST [facility] XR Abdomen Supine and Uprigh tOrdered By: Ccf Provider on 09-20-2023 [facility] CNPNon 09-17-2023 CNPN Telephone ([id number]) -- SAMMY REDD ([id number]) 1980 F Date Time Provider Department 09/17/23 NELIDA IRVING [id number] During your visit today, we recorded the [...] Date Reviewed: 08/10/2023 Reviewed by: Dee Flores APRN.[employer] - Fully Assessed Reason for Visit: Orders [...] Encounter Status:Closed by SUNITHA CLARKE on 09/17/23 [facility] XR Abdomen Supine and Uprigh ton 09-17-2023 Radiology Study observation (narrative) [facility] Basophil percentageOrdered B y: Juvencio Oneal on 08-31-2023 Bilirubin [Mass/Vol] 0.30 mg/dL 0.20-1.00 [facility] Comment on above: For patients on eltr ombopag therapy, use of Dimension [place] TBIL is not recommended. Chloride [Moles/Vol] 107 mmol/L 98-107 [facility] Glucose [Mass/Vol] 87 mg/dL 74-106 [facility] Hemoglobin (Bld) [Mass/Vol] 13.9 g/dL 12.0-15.0 [facility] Potassium [Moles/Vol] 3.9 mmol/L 3.5-5.1 [facility] Protein [Mass/Vol] 7.3 g/dL 6.4-8.2 [facility] Sodium [Moles/Vol] 140 mmol/L 136-145 [facility] WBC (Bld) [#/Vol] 12.3 10*3/uL 4.4-11.0 [facility] Determination of erythrocyte mean corpuscular volume (MCV)Ordered By: Juvencio Oneal on 08-31-2023 MCV (RBC) [Entitic vol] 92.9 fL 81-99 [facility] Erythrocyte distribution wid th ratioOrdered By: Juvencio Oneal on 08-31-2023 Erythrocyte distribution width (RBC) [Ratio] 12.7 % 11.6-14.6 [facility] Erythrocyte distribution wid th standard deviationOrdered By: Juvencio Oneal on 08-31-2023 Erythrocyte distribution width (RBC) [Entitic vol] 43.7 fL 35.1-43.9 [facility] Hematocrit Auto (Bld) [Volum e fraction]Ordered By: Juvencio Oneal on 08-31-2023 Hematocrit (Bld) [Volume fraction] 44.3 % 37-47 [facility] Laboratory - Chemistry and C hemistry - challengeOrdered By: Juvencio Oneal on 08-31-2023 Albumin/Globulin [Mass ratio] 0.9 {ratio} 0.9-2.4 [facility] ALP [Catalytic activity/Vol] 72 U/L 45-117 [facility] ALT [Catalytic activity/Vol] 20 U/L 13-56 [facility] CO2 [Moles/Vol] 28.0 mmol/L 21.0-32.0 [facility] Globulin (S) [Mass/Vol] 3.8 g/dL 2.2-4.2 [facility] Magnesium [Mass/Vol] 2.2 mg/dL 1.6-2.6 [facility] Urea nitrogen/Creatinine [Mass ratio] 28.2 mg/mg 10-20 [facility] Laboratory - Hematology and Cell countsOrdered By: Juvencio Oneal on 08-31-2023 MCH (RBC) [Entitic mass] 29.1 pg 27.0-32.0 [facility] MCHC (RBC) [Mass/Vol] 31.4 g/dL 32-36 [facility] Platelet mean volume (Bld) [Entitic vol] 10.3 fL 6.2-12.0 [facility] Platelets (Bld) [#/Vol] 260 10*3/uL 150-450 [facility] No Panel InformationOrdered By: Juvencio Oneal on 08-31-2023 Estimated GFR (MDRD) Amer 115 mL/min >60 [facility] Comment on above: GFR Calc Estimated GFR (MDRD) Non-Af Amer 95 mL/min >60 [facility] Comment on above: Non- GFR Calc RBC Auto (Bld) [#/Vol]Ordere d By: Juvencio Oneal on 08-31-2023 RBC (Bld) [#/Vol] 4.77 10*6/uL 4.2-5.4 [facility] Serum or plasma calcium waldo urement (mass/volume)Ordered By: Juvencio Oneal on 08-31-2023 Calcium [Mass/Vol] 9.1 mg/dL 8.5-10.1 [facility] Serum or plasma creatinine m easurement (mass/volume)Ordered By: Juvencio Oneal on 08-31-2023 Creatinine [Mass/Vol] 0.71 mg/dL 0.55-1.02 [facility] Comment on above: The validity of the calculated GFR & GFRAA in patients over 70 years has not been determined. Clinical correlation is essential. Serum or plasma urea nitroge n measurement (mass/volume)Ordered By: Juvencio Oneal on 08-31-2023 Urea nitrogen [Mass/Vol] 20 mg/dL 7-18 [facility] Thin prep Papanicolaou smear with manual screeningOrdered By: Juvencio Oneal on 08-31-2023 Thin prep Papanicolaou smear with manual screening 3.5 g/dL 3.2-5.0 [facility] Thin prep Papanicolaou smear with manual screening 19 U/L 15-37 [facility] Thin prep Papanicolaou smear with manual screening 5 5-15 [facility] C-REACTIVE PROTEINon 024 CRP [Mass/Vol] 0.3 mg/dL <0.9 mg/dL [facility] CBC W Auto Differential pane l (Bld)on 08-10-2023 Basophils (Bld) [#/Vol] 0.05 10*3/uL <0.11 k/uL [facility] Basophils/100 WBC (Bld) 0.7 % [facility] Differential cell count method Nom (Bld) Auto [facility] Eosinophils (Bld) [#/Vol] 0.30 10*3/uL <0.46 k/uL [facility] Eosinophils/100 WBC (Bld) 4.0 % [facility] Erythrocyte distribution width (RBC) [Ratio] 13.1 % 11.5 - 15.0 % [facility] Hematocrit (Bld) [Volume fraction] 43.5 % 36.0 - 46.0 % [facility] Hemoglobin (Bld) [Mass/Vol] 13.7 g/dL 11.5 - 15.5 g/dL [facility] Immature granulocytes (Bld) [#/Vol] <0.10 k/uL [facility] Immature granulocytes/100 WBC (Bld) 0.1 % [facility] Lymphocytes (Bld) [#/Vol] 2.17 10*3/uL 1.00 - 4.00 k/uL [facility] Lymphocytes/100 WBC (Bld) 28.8 % [facility] MCH (RBC) [Entitic mass] 29.5 pg 26.0 - 34.0 pg [facility] MCHC (RBC) [Mass/Vol] 31.5 g/dL 30.5 - 36.0 g/dL [facility] MCV (RBC) [Entitic vol] 93.5 fL 80.0 - 100.0 fL [facility] Monocytes (Bld) [#/Vol] 0.42 10*3/uL <0.87 k/uL [facility] Monocytes/100 WBC (Bld) 5.6 % [facility] Neutrophils (Bld) [#/Vol] 4.59 10*3/uL 1.45 - 7.50 k/uL [facility] Neutrophils/100 WBC (Bld) 60.8 % [facility] Nucleated RBC (Bld) [#/Vol] <0.01 k/uL [facility] Nucleated RBC/100 WBC (Bld) [Ratio] 0.0 /100 WBC [facility] Platelet mean volume (Bld) [Entitic vol] 10.6 fL 9.0 - 12.7 fL [facility] Platelets (Bld) [#/Vol] 266 10*3/uL 150 - 400 k/uL [facility] RBC (Bld) [#/Vol] 4.65 10*6/uL 3.90 - 5.2 0 m/uL [facility] WBC (Bld) [#/Vol] 7.54 10*3/uL 3.70 - 11. 00 k/uL [facility] CORTISOL, SERUMon 08-10-2023 Cortisol [Mass/Vol] 5.4 ug/dL 4.8 - 19 .5 ug/dL [facility] CREATINE KINASE/CKon 024 CK [Catalytic activity/Vol] 94 U/L 42 - 196 U/L [facility] Comprehensive metabolic 2000 panelon 08-10-2023 Albumin [Mass/Vol] 4.1 g/dL 3.9 - 4.9 g/dL [facility] ALP [Catalytic activity/Vol] 66 U/L 34 - 123 U/L [facility] ALT [Catalytic activity/Vol] 14 U/L 7 - 38 U/L [facility] Anion gap [Moles/Vol] 11 mmol/L 9 - 18 mmol/L [facility] AST [Catalytic activity/Vol] 20 U/L 13 - 35 U/L [facility] Bilirubin [Mass/Vol] 0.5 mg/dL 0.2 - 1 .3 mg/dL [facility] Calcium [Mass/Vol] 9.2 mg/dL 8.5 - 10. 2 mg/dL [facility] Chloride [Moles/Vol] 105 mmol/L 97 - 10 5 mmol/L [facility] CO2 [Moles/Vol] 25 mmol/L 22 - 30 mmol/L [facility] Creatinine [Mass/Vol] 0.64 mg/dL 0.58 - 0.96 mg/dL [facility] Estimated Glomerular Filtration Rate 113 mL/min/1.73m >=60 mL/min/1.73m [facility] Glucose [Mass/Vol] 85 mg/dL 74 - 99 mg/dL [facility] Potassium [Moles/Vol] 4.2 mmol/L 3.7 - 5.1 mmol/L [facility] Protein [Mass/Vol] 6.7 g/dL 6.3 - 8.0 g/dL [facility] Sodium [Moles/Vol] 141 mmol/L 136 - 144 mmol/L [facility] Urea nitrogen [Mass/Vol] 17 mg/dL 7 - 21 mg/dL [facility] PETER BOYD PANELon 024 EBV NA Ab, Qual Negative Negative [facility] EBV VCA IgG, Qual Negative Negative [facility] EBV VCA IgM, Qual Negative Negative [facility] Interpretation (EBVPNL) Never Infected. EBV panel interpretation is a general guide that is meant to capture most, but not all, of the possible clinical scenarios. Non-specific reactivities are not uncommon especially with equivocal results. Should the overall interpretation not be consistent with the clinical picture, please contact the medical/surgery registered nurse of the test for assistance. [facility] No Panel Informationon 08-09 IMPRESSION: No significant bone or articular abnormality. Lathe Turner: MARLON Transcribe Date/Time: Aug 10 2023 9:44A Dictated by : HAMIDA MARIA DO This examination was interpreted and the report reviewed and electronically signed by: HAMIDA MARIA DO on Aug 10 2023 9:57AM [facility] DIVISION OF RADIOLOGY Radiology Study observation (narrative) [facility] No Panel InformationOrdered By: Ccf Provider on 08-10-2023 [facility] RHEUMATOID FACTORon 08-10-19 Rheumatoid factor Qn <16 IU/mL [facility] T3on 08-10-2023 T3 [Mass/Vol] 97 ng/dL 79 - 165 ng/dL [facility] T4 FREE/FREE THYROXINEon Free T4 [Mass/Vol] 1.4 ng/dL 0.9 - 1.7 ng/dL [facility] THYROID STIMULATING HORMONEo n 08-10-2023 TSH Qn 0.910 m[IU]/L 0.270 - 4.200 mIU/L [facility] XR Foot - bilateral AP and L [...] plantar calcaneal spurs. DIVISION OF RADIOLOGY Provider, [facility] - 08/10/2023 * * *Final Report* * [...] IMPRESSION: No significant bone or articular abnormality. Lathe Turner: MARLON Transcribe Date/Time: Aug 10 2023 9:44A Dictated by : HAMIDA MARIA DO This examination was interpreted and the report reviewed and electronically signed by: HAMIDA MARIA DO on Aug 10 2023 9:57AM [facility] XR Hand - bilateral PA and [...] plantar calcaneal spurs. DIVISION OF RADIOLOGY [facility] * * *Final Report* * [...] IMPRESSION: No significant bone or articular abnormality. Lathe Turner: PSCB Transcribe Date/Time: Aug 10 2023 9:44A Dictated by : HAMIDA MARIA DO This examination was interpreted and the report reviewed and electronically signed by: HAMIDA MARIA DO on Aug 10 2023 9:57AM [facility] XR Lumbar spine 3 Viewson * [...] plantar calcaneal spurs. DIVISION OF RADIOLOGY Provider, [facility] - 08/10/2023 * * *Final Report* * [...] IMPRESSION: No significant bone or articular abnormality. Lathe Turner: MARLON Transcribe Date/Time: Aug 10 2023 9:44A Dictated by : HAMIDA MARIA DO This examination was interpreted and the report reviewed and electronically signed by: HAMIDA MARIA DO on Aug 10 2023 9:57AM [facility] XR Thoracic spine AP and Lat [...] plantar calcaneal spurs. DIVISION OF RADIOLOGY Provider, [facility] - 08/10/2023 * * *Final Report* * [...] IMPRESSION: No significant bone or articular abnormality. Lathe Turner: PSCB Transcribe Date/Time: Aug 10 2023 9:44A Dictated by : HAMIDA MARIA DO This examination was interpreted and the report reviewed and electronically signed by: HAMIDA MARIA DO on Aug 10 2023 9:57AM [facility] Gram stain for investigation of transfusion reactionOrdered By: She Vivar on 01-30-2024 Microscopic observation Gram stain Nom (Unsp spec) [facility] Microscopic observation Gram stain Nom (Unsp spec) [facility] No Panel InformationOrdered By: She Vivar on 05-26-2023 Genital Culture [facility] Genital Culture [facility] No Panel Informationon 05-26 POC Bacterial Vaginitis (Rapid) Negative [facility] CNPNon 03-30-2023 CNPN Telephone (URCANT) -- SAMMY REDD ([id number]) 1980 F Date Time Provider Department 03/30/23 [...] Encounter Status:Closed by NELIDA IRVING on 03/30/23 [facility] Eliseo 03-26-2023 CNPN Telephone (URCANT) -- SAMMY REDD ([id number]) 1980 F Date Time Provider Department 03/26/23 MARIA FERNANDA NELIDA URCANJorge During your visit today, we recorded the following information about you: Preeti Oh 03/26/2023 3:25 PM Signed Patient called in and was asking about culture results. She was wanting to know if there was anything else she needs to do Vicky Crowley, 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.[employer] 03/26/2023 3:31 PM Signed Urine cx demonstrated [...] hematuria [N30.00] (more content not included)... Normal [facility] Bacteria Ur Culton 3 Bacteria identified Cx Nom (U) ORGANISM ID: 1 10,000 -<50,000 CFU/ml Mixed microbiota No further workup. Mixed microbiota can be due to???urine???contamination with skin bacteria at time of collection or presence of a long-term urinary catheter. If a new culture is needed, please consider re-education of the patient on proper midstream collection technique or straight catheterization for???urine???collection. Normal [facility] Comment on above: Performed By: #### 6 30-4 ####[facility] LABORATORYCLIA [id number] [address] [place] [facility] CNOVon 03-24-2023 CNOV Office Visit (URCANT ) -- SAMMY REDD ([id number]) 1980 F Date Time Provider Department 03/24/23 8:00 AM NELIDA IRVING During your visit today, we recorded the following information about you: Blood pressure Weight Height 121/83 88 kg 1.524 m Nelida Irving APRN.[employer] 03/24/2023 8:29 AM Signed [facility] ESTABLISHED PATIENT OFFICE VISIT Patient presents with: [...] disorder (just had APPT drawn - in [facility]) PUD (peptic ulcer disease) 2010 treated medically, [...] W/REMOVAL CALCUL (more content not included)... Normal [facility] UA DIP, URINE (POC)on 2022 BILIRUBIN UA (POCT) Negative Negative [facility] CLARITY UA (POCT) Clear [facility] COLOR UA (POCT) Yellow [facility] GLUCOSE UA (POCT) Negative Negative mg/dL [facility] Hemoglobin Ql (U) Negative Negative [facility] KETONE UA (POCT) Negative Negative mg/dL [facility] LEUKOCYTES UA (POCT) Negative Negative [facility] NITRITE UA (POCT) Negative Negative [facility] PH UA (POCT) 6.0 4.5 - 8.0 [facility] Protein Ql (U) Negative Negative mg/dL [facility] SPECIFIC GRAVITY UA (POCT) 1.020 1.005 - 1.030 [facility] UROBILINOGEN UA (POCT) 0.2 E.U./dL Georgina l E.U./dL [facility] ANES POSTPROC EVALon 023 ANES POSTPROC EVAL HNO ID: [id number] Author: Carl Mckeon DO Service: ? Author Type: Anesthesiologist Type: Anesthesia Postprocedure Evaluation Filed: 03/11/2023 1:15 PM Note Text: POST ANESTHESIA EVALUATION NOTE : 1980 Procedure Summary Date: 03/11/23 Room / Location: OR [address] [place] [address] OR Anesthesia Start: 1023 Anesthesia Stop: 1123 [...] March 11, 2023 TIME: 1:15 PM CSN: [id number] [facility] ANES PRE-OPon 03-11-2023 ANES PRE-OP HNO ID: [id number] Author: Calr Mckeon DO Service: ? Author Type: Anesthesiologist [...] and consent discussed: yes. Patient / Responsible Republican agrees to proceed: yes Patient / Surrogate [...] March 11, 2023 TIME: 9:46 AM CSN: [id number] [facility] HISTORY PHYSICALon HISTORY PHYSICAL HNO ID: [id number] Author: Xi Barahona MD Service: Urology Author [...] DATE: March 11, 2023 TIME: 9:50 AM [facility] OPERATIVE NOon 03-11-2023 OPERATIVE NO HNO ID: [id number] Author: Xi Barahona MD Service: Urology Author Type: Physician Type: Operative Report Filed: 03/11/2023 11:28 AM Note Text: OPERATIVE/PROCEDURE REPORT LOG ID: [id number] SURGERY/PROCEDURE DATE: 03/11/2023 INCISION/PROCEDURE START TIME: 10:32 AM INCISION CLOSE/PROCEDURE END TIME: 11:13 AM SURGEON(S)/PROCEDURALIST(S ) AND HOG MAN(S): Surgeon(s) and Role: * Xi Barahona MD [...] DATE: March 11, 2023 TIME: 11:27 AM [facility] XR ABDOMEN 1V SUPINEon 03-11 XR ABDOMEN [...] ureteral calculus at the level of L3. Lathe Turner: PSCB Transcribe Date/Time: Mar 11 2023 8:56A Dictated by : HERBERTH HUNTER MD This examination was interpreted and the report reviewed and electronically signed by: HERBERTH HUNTER MD on Mar 11 2023 9:00AM EST [id number] [facility] ANES PREOPon 03-10-2023 ANES PREOP HNO ID: [id number] Author: Hayley Mike APRN.CNP Service: ? Author [...] one 11 beat run SVT/atrial tach Normal [facility] 02-27-2023 CNPN Telephone (URCANT) -- SAMMY REDD ([id number]) 1980 F Date Time Provider Department 02/27/23 PERLITA CUNNINGHAM During your visit today, we recorded the following information about you: Perlita uCnningham APRN.CNP 02/27/2023 1:[address] [...] Date Reviewed: 02/12/2023 Reviewed by: Alfredo Ortega APRN.[employer] - Fully Assessed Reason for Visit: Patient [...] Encounter Status:Closed by PERLITA CUNNINGHAM on 02/27/23 [facility] CNCOon 02-26-2023 CNCO Letter Text [facility] Absolute lymphocyte countOrd ered By: David Tejeda on 02-24-2023 Lymphocytes Auto (Unsp spec) [#/Vol] 3.97 10*3/uL 0.83-4.51 [facility] Basophil percentageOrdered B y: David Tejeda on 02-24-2023 Basophil percentage 0-5 SEEN /hpf 0-5 [facility] Basophils/100 WBC (Bld) 0.7 % 0-1 [facility] Chloride [Moles/Vol] 112 mmol/L 98-107 [facility] Eosinophils/100 WBC (Bld) 3.3 % 0-5 [facility] Glucose [Mass/Vol] 102 mg/dL 74-106 [facility] Comment on above: Fasting Glucose resu lt from 100 to 125 mg/dL suggests IMPAIRED HOMEOSTASIS per A.D.A. criteria. Neutrophils (Bld) [#/Vol] 6.4 10*3/uL 2.0-7.7 [facility] Neutrophils/100 WBC (Bld) 56.3 % 47-70 [facility] Potassium [Moles/Vol] 3.8 mmol/L 3.5-5.1 [facility] Sodium [Moles/Vol] 144 mmol/L 136-145 [facility] WBC (Bld) [#/Vol] 11.4 10*3/uL 4.4-11.0 [facility] Beta hCG serum qualOrdered B y: David Tejeda on 02-24-2023 Beta HCG ( test) Ql Negative [facility] Bilirubin Test strip Ql (U)O rdered By: David Tejeda on 02-24-2023 Bilirubin Ql (U) Negative Negative [facility] Blood erythrocytes count (nu mber/volume)Ordered By: David Tejeda on 02-24-2023 RBC (Bld) [#/Vol] 4.52 10*6/uL 4.2-5.4 [facility] Blood hemoglobin measurement (mass/volume)Ordered By: David Tejeda on 02-24-2023 Hemoglobin (Bld) [Mass/Vol] 13.5 g/dL 12.0-15.0 [facility] Blood lymphocytes/100 leukoc ytesOrdered By: David Tejeda on 02-24-2023 Lymphocytes/100 WBC (Bld) 35.0 % 19-41 [facility] Blood monocytes/100 leukocyt esOrdered By: David Tejeda on 02-24-2023 Monocytes/100 WBC (Bld) 4.4 % 0-10 [facility] Blood platelet mean volumeOr dered By: David Tejeda on 02-24-2023 Platelet mean volume (Bld) [Entitic vol] 10.1 fL 6.2-12.0 [facility] Determination of erythrocyte mean corpuscular volume (MCV)Ordered By: David Tejeda on 02-24-2023 MCV (RBC) [Entitic vol] 92.7 fL 81-99 [facility] Hematocrit Auto (Bld) [Volum e fraction]Ordered By: David Tejeda on 02-24-2023 Hematocrit (Bld) [Volume fraction] 41.9 % 37-47 [facility] Ketones Test strip Ql (U)Ord ered By: David Tejeda on 02-24-2023 Ketones Ql (U) Negative Negative [facility] Laboratory - Chemistry and C hemistry - challengeOrdered By: David Tejeda on 02-24-2023 CO2 [Moles/Vol] 30.0 mmol/L 21.0-32.0 [facility] Urea nitrogen/Creatinine [Mass ratio] 22.0 mg/mg 10-20 [facility] Laboratory - Hematology and Cell countsOrdered By: David Tejeda on 02-24-2023 Erythrocyte distribution width (RBC) [Entitic vol] 45.8 fL 35.1-43.9 [facility] Erythrocyte distribution width (RBC) [Ratio] 13.3 % 11.6-14.6 [facility] Immature granulocytes/100 WBC (Bld) 0.300 % 0.0-0.9 [facility] Comment on above: IG% - Immature Granu locytes (promyelocytes, myelocytes and metamyelocytes) > 1% indicates that a LEFT SHIFT is Present. MCH (RBC) [Entitic mass] 29.9 pg 27.0-32.0 [facility] Nucleated RBC/100 WBC (Bld) [Ratio] 0 % 0-5 [facility] MCHC Auto (RBC) [Mass/Vol]Or dered By: David Tejeda on 02-24-2023 MCHC (RBC) [Mass/Vol] 32.2 g/dL 32-36 [facility] Mucus LM Ql (Urine sed)Order ed By: David Tejeda on 02-24-2023 Mucus Ql (Urine sed) 0 SEEN /hpf [facility] Nitrite Test strip Ql (U)Ord ered By: David Tejeda on 02-24-2023 Nitrite Ql (U) Negative Negative [facility] No Panel InformationOrdered By: David Tejeda on 02-24-2023 Estimated Creatinine Clearance Calc 57.26 ml/min [facility] Estimated GFR (MDRD) Amer 87 mL/min >60 [facility] Comment on above: GFR Calc Estimated GFR (MDRD) Non-Af Amer 72 mL/min >60 [facility] Comment on above: Non- GFR Calc Platelets bldOrdered By: Brent Tejeda on 02-24-2023 Platelets (Bld) [#/Vol] 284 10*3/uL 150-450 [facility] Protein Test strip Ql (U)Ord ered By: David Tejeda on 02-24-2023 Protein Ql (U) 30 mg/dl Negative [facility] Serum or plasma calcium waldo urement (mass/volume)Ordered By: David Tejeda on 02-24-2023 Calcium [Mass/Vol] 8.7 mg/dL 8.5-10.1 [facility] Serum or plasma creatinine m easurement (mass/volume)Ordered By: David Tejeda on 02-24-2023 Creatinine [Mass/Vol] 0.91 mg/dL 0.55-1.02 [facility] Comment on above: The validity of the calculated GFR & GFRAA in patients over 70 years has not been determined. Clinical correlation is essential. Serum or plasma urea nitroge n measurement (mass/volume)Ordered By: David Tejeda on 02-24-2023 Urea nitrogen [Mass/Vol] 20 mg/dL 7-18 [facility] Squamous epithelial cells de tection in urine sediment by light microscopyOrdered By: David Tejeda on 02-24-2023 Epithelial cells.squamous LM Ql (Urine sed) 0-5 SEEN /hpf 5-10 [facility] Thin prep Papanicolaou smear with manual screeningOrdered By: David Tejeda on 02-24-2023 Thin prep Papanicolaou smear with manual screening 2 5-15 [facility] Urine blood detectionOrdered By: David Tejeda on 02-24-2023 RBC Ql (U) 250 /ul Negative [facility] RBC Ql (U) > 100 SEEN /hpf 0-5 [facility] Urine clarityOrdered By: Brent Tejeda on 02-24-2023 Clarity (U) Cloudy Clear [facility] Urine color determinationOrd ered By: David Tejeda on 02-24-2023 Color (U) Yellow Yellow [facility] Urine glucose detectionOrder ed By: David Tejeda on 02-24-2023 Glucose Ql (U) Normal mg/dl Normal [facility] Urine leukocyte esterase det ection by dipstickOrdered By: David Tejeda on 02-24-2023 Leukocyte esterase Test strip Ql (U) 25 /ul Negative [facility] Urine pHOrdered By: David espinoza on 02-24-2023 pH (U) 6.5 [pH] 5.0 - 8.0 [facility] Urine sediment bacteria coun t by microscopy (number/high power field)Ordered By: David Tejeda on 02-24-2023 Bacteria LM.HPF (Urine sed) [#/Area] 0 /[HPF] None Seen [facility] Urine specific gravity measu rementOrdered By: David Tejeda on 02-24-2023 Specific gravity (U) [Rel density] 1.015 1.002-1.030 [facility] Urobilinogen Auto test strip Ql (U)Ordered By: David Tejeda on 02-24-2023 Urobilinogen Ql (U) Normal mg/dl Normal [facility] CNPNon 02-18-2023 CNPN Telephone (URCANT) -- SAMMY REDD ( ) 1980 F Date Time Provider Department 02/18/23 PERLITA CUNNINGHAM During your visit today, we recorded the following information about you: Perlita Cunningham APRN.[employer] 02/18/2023 3:24 PM Signed Tried calling pt to review KUB results- no answer. KUB still showing the ureteral stone. She does have an appt with Vicky next week, but if she was in a lot of pain I was going to discuss surgical options. Thanks, Perlita Cunningham APRN.[employer] Susanna Da Silva OCCA 02/19/2023 8:44 AM Signed Tried calling patient. No answer. Had to [facility] to call the office back. MAGDIEL Sullivan Allergies As of Date: 02/18/2023 Noted Allergy Reaction ALEVE (NAPROXEN SODIUM) 04/28/2007 11 - Vomiting Comments: Ibuprofen without problems Vomiting with Aleve with one time use MENTHOL 08/07/2022 2 - Rash METFORMIN 01/23/2017 8 - GI Upset PENICILLINS 04/28/2007 7 - Swelling Date Reviewed: 02/12/2023 Reviewed by: Alfredo Ortega APRN.[employer] - Fully Assessed Reason for Visit: Results [...] Encounter Status:Closed by PERLITA CUNNINGHAM on 02/18/23 [facility] MIGNON Telephone (URCANT) -- SAMMY REDD ([id number]) 1980 F Date Time Provider Department 02/18/23 [...] Tried calling patient. No answer. Had to [facility] to call the office back. MAGDIEL Sullivan [...] under general anesthesia with on 03/11. CASE# [id number] Pt aware of prep and arrival instructions given verbally 02/23. Pt ave verbal confirmation she is not on blood thinners. [facility] message sent 02/24. Pos top 03/24 at 8:00 in the [place] office. ESWL bed REF# [id number] per portal Michaela Carrillo 02/25/2023 8:27 AM Addendum Called pt to make aware about blood test and she gave understanding. Went to [facility] last night for pain and lots of [...] Vicky on Thursday. ALSO, can we call [facility] or whoever we need to call and have the image Dl'd to [facility]? Thanks, Perlita Cunningham APRN.Xi Arias MD 02/26/2023 5:17 PM Signed Aimee, Please call radiology and have them pull the images to our PACS. Thanks Preeti Oh 02/27/2023 9:06 AM Signed Imaging should be in [facility] soon Allergies As of Date: 02/18/2023 Noted Allergy Reaction ALEVE (NAPROXEN SODIUM) 04/28/2007 11 - Vomiting Comments: Ibuprofen without p (more content not included)... Normal [facility] No Panel Informationon 02-16 [facility] Absolute lymphocyte countOrd ered By: Maykel Mann on 02-14-2023 Lymphocytes Auto (Unsp spec) [#/Vol] 2.76 10*3/uL 0.83-4.51 [facility] Basophil percentageOrdered B y: Maykel Mann on 02-14-2023 Basophil percentage 5-10 SEEN /hpf 0-5 [facility] Basophils/100 WBC (Bld) 0.7 % 0-1 [facility] Chloride [Moles/Vol] 110 mmol/L 98-107 [facility] Eosin[facility]/100 WBC (Bld) 4.7 % 0-5 [facility] Glucose [Mass/Vol] 101 mg/dL 74-106 [facility] Comment on above: Fasting Glucose resu lt from 100 to 125 mg/dL suggests IMPAIRED HOMEOSTASIS per A.D.A. criteria. Neutrophils (Bld) [#/Vol] 4.5 10*3/uL 2.0-7.7 [facility] Neutrophils/100 WBC (Bld) 54.0 % 47-70 [facility] Potassium [Moles/Vol] 4.0 mmol/L 3.5-5.1 [facility] Sodium [Moles/Vol] 144 mmol/L 136-145 [facility] WBC (Bld) [#/Vol] 8.3 10*3/uL 4.4-11.0 [facility] Bilirubin Test strip Ql (U)O rdered By: Maykel Mann on 02-14-2023 Bilirubin Ql (U) Negative Negative [facility] Blood erythrocytes count (nu mber/volume)Ordered By: Maykel Mann on 02-14-2023 RBC (Bld) [#/Vol] 4.56 10*6/uL 4.2-5.4 [facility] Blood hemoglobin measurement (mass/volume)Ordered By: Maykel Mann on 02-14-2023 Hemoglobin (Bld) [Mass/Vol] 13.5 g/dL 12.0-15.0 [facility] Blood lymphocytes/100 leukoc ytesOrdered By: Maykel Mann on 02-14-2023 Lymphocytes/100 WBC (Bld) 33.2 % 19-41 [facility] Blood monocytes/100 leukocyt esOrdered By: Maykel Mann on 02-14-2023 Monocytes/100 WBC (Bld) 7.2 % 0-10 [facility] [facility] [place] Blood platelet mean volumeOr dered By: Maykel Mann on 02-14-2023 Platelet mean volume (Bld) [Entitic vol] 10.5 fL 6.2-12.0 [facility] [place] Culture, urineOrdered By: Sherita Mann on 02-14-2023 Bacteria identified Cx Nom (U) Positive [facility] [place] Bacteria identified Cx Nom (U) Positive [facility] [place] Determination of erythrocyte mean corpuscular volume (MCV)Ordered By: Maykel Mann on 02-14-2023 MCV (RBC) [Entitic vol] 92.3 fL 81-99 [facility] [place] Hematocrit Auto (Bld) [Volum e fraction]Ordered By: Maykel Mann on 02-14-2023 Hematocrit (Bld) [Volume fraction] 42.1 % 37-47 [facility] [place] Ketones Test strip Ql (U)Ord ered By: Maykel Mann on 02-14-2023 Ketones Ql (U) Negative Negative [facility] [place] Laboratory - Chemistry and C hemistry - challengeOrdered By: Maykel Mann on 02-14-2023 CO2 [Moles/Vol] 27.0 mmol/L 21.0-32.0 [facility] [place] Urea nitrogen/Creatinine [Mass ratio] 32.2 mg/mg 10-20 [facility] [place] Laboratory - Hematology and Cell countsOrdered By: Maykel Mann on 02-14-2023 Erythrocyte distribution width (RBC) [Entitic vol] 44.7 fL 35.1-43.9 [facility] [place] Erythrocyte distribution width (RBC) [Ratio] 13.2 % 11.6-14.6 [facility] [place] Immature granulocytes/100 WBC (Bld) 0.200 % 0.0-0.9 [facility] [place] Comment on above: IG% - Immature Granu locytes (promyelocytes, myelocytes and metamyelocytes) > 1% indicates that a LEFT SHIFT is Present. MCH (RBC) [Entitic mass] 29.6 pg 27.0-32.0 [facility] [place] Nucleated RBC/100 WBC (Bld) [Ratio] 0 % 0-5 [facility] [place] MCHC Auto (RBC) [Mass/Vol]Or dered By: Maykel Mann on 02-14-2023 MCHC (RBC) [Mass/Vol] 32.1 g/dL 32-36 [facility] Mucus LM Ql (Urine sed)Order ed By: Maykel Mann on 02-14-2023 Mucus Ql (Urine sed) 0 SEEN /hpf [facility] Nitrite Test strip Ql (U)Ord ered By: Maykel Mann on 02-14-2023 Nitrite Ql (U) Negative Negative [facility] [place] No Panel InformationOrdered By: Maykel Mann on 02-14-2023 Estimated Creatinine Clearance Calc 73.39 ml/min [facility] [place] Estimated GFR (MDRD) Amer 115 mL/min >60 [facility] [place] Comment on above: GFR Calc Estimated GFR (MDRD) Non-Af Amer 95 mL/min >60 [facility] [place] Comment on above: Non- GFR Calc Platelets bldOrdered By: Francisco Javier Mann on 02-14-2023 Platelets (Bld) [#/Vol] 256 10*3/uL 150-450 [facility] [place] Protein Test strip Ql (U)Ord ered By: Maykel Mann on 02-14-2023 Protein Ql (U) 30 mg/dl Negative [facility] [place] Serum or plasma calcium waldo urement (mass/volume)Ordered By: Maykel Mann on 02-14-2023 Calcium [Mass/Vol] 8.9 mg/dL 8.5-10.1 [facility] [place] or plasma creatinine m easurement (mass/volume)Ordered By: Maykel Mann on 02-14-2023 Creatinine [Mass/Vol] 0.71 mg/dL 0.55-1.02 [facility] Comment on above: The validity of the calculated GFR & GFRAA in patients over 70 years has not been determined. Clinical correlation is essential. Serum or plasma urea nitroge n measurement (mass/volume)Ordered By: Maykel Mann on 02-14-2023 Urea nitrogen [Mass/Vol] 23 mg/dL 7-18 [facility] [place] Squamous epithelial cells de tection in urine sediment by light microscopyOrdered By: Maykel Mann on 02-14-2023 Epithelial cells.squamous LM Ql (Urine sed) 0 SEEN /hpf 5-10 [facility] [place] Thin prep Papanicolaou smear with manual screeningOrdered By: Maykel Mann on 02-14-2023 Thin prep Papanicolaou smear with manual screening 7 5-15 [facility] [place] Urine blood detectionOrdered By: Maykel Mann on 02-14-2023 RBC Ql (U) 150 /ul Negative [facility] [place] RBC Ql (U) 10-25 SEEN /hpf 0-5 [facility] [place] Urine clarityOrdered By: Francisco Javier Mann on 02-14-2023 Clarity (U) Clear Clear [facility] [place] Urine color determinationOrd ered By: Maykel Mann on 02-14-2023 Color (U) Yellow Yellow [facility] [place] Urine glucose detectionOrder ed By: Maykel Mann on 02-14-2023 Glucose Ql (U) Normal mg/dl Normal [facility] [place] Urine leukocyte esterase det ection by dipstickOrdered By: Maykel Mann on 02-14-2023 Leukocyte esterase Test strip Ql (U) 25 /ul Negative [facility] [place] Urine pHOrdered By: Maykel caldwell on 02-14-2023 pH (U) 6.0 [pH] 5.0 - 8.0 [facility] [place] Urine sediment bacteria coun t by microscopy (number/high power field)Ordered By: Maykel Mann on 02-14-2023 Bacteria LM.HPF (Urine sed) [#/Area] 1 /[HPF] None Seen [facility] [place] Urine specific gravity measu rementOrdered By: Maykel Mann on 02-14-2023 Specific gravity (U) [Rel density] 1.020 1.002-1.030 [facility] [place] Urobilinogen Auto test strip Ql (U)Ordered By: Maykel Mann on 02-14-2023 Urobilinogen Ql (U) Normal mg/dl Normal [facility] CNPNon 02-11-2023 CNPN Telephone (UROLAE) -- SAMMY REDD ([id number]) 1980 F Date Time Provider Department 02/11/23 VICKY CROWLEY During your visit today, we recorded the following information about you: Gideon Gonzalez MA 02/11/2023 2:09 PM Signed Pt called in asking for urine culter results Pt also states she cannot hold urine since taking flowmax pt asking is this normal Please advise BAILEE Horvath Tiffany M, 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 02/12/2023 8:25 AM Signed Urine cx results [...] Status:Closed by VICKY CROWLEY on 02/12/23 Normal [facility] Bacteria Ur Culton 3 Bacteria identified Cx Nom (U) CULTURE, URINE: Three or more urogenital benji organisms. No predominating uropathogen. Recollect if clinically indicated. Normal [facility] Comment on above: Performed By: #### 6 30-4 #### [facility] CLIA [id number] [address] CNOVon 02-09-2023 CNOV Office Visit (UROLAE ) -- SAMMY REDD ([id number]) 1980 F Date Time Provider Department 02/09/23 11:00 AM VICKY CROWLEY UROLAVenecia During your visit today, we recorded the following information about you: Pulse Weight Height 68/minute 87.1 kg 1.524 m Vicky Crowley, 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 02/09/2023 11:45 AM Signed [facility] NEW CONSULT HISTORY AND PHYSICAL EXAMINATION [...] (2015), Dr. Colin (-2008), previous urologist in [facility] Hx of kidney stones: yes, Family [...] as need (more content not included)... Normal [facility] UA DIP, URINE (POC)on 2022 BILIRUBIN UA (POCT) Negative Negative [facility] CLARITY UA (POCT) Clear [facility] COLOR UA (POCT) Yellow [facility] GLUCOSE UA (POCT) Negative Negative mg/dL [facility] Hemoglobin Ql (U) Moderate Abnormal Negative [facility] KETONE UA (POCT) Negative Negative mg/dL [facility] LEUKOCYTES UA (POCT) Negative Negative [facility] NITRITE UA (POCT) Negative Negative [facility] PH UA (POCT) 6.0 4.5 - 8.0 [facility] Protein Ql (U) Negative Negative mg/dL [facility] SPECIFIC GRAVITY UA (POCT) 1.015 1.005 - 1.030 [facility] UROBILINOGEN UA (POCT) 0.2 E.U./dL Georgina l E.U./dL [facility] CT FLANK WO IVCONon 02-06-[address] FLANK WO IVCON * * *Final Report* * * DATE OF EXAM: Feb 05 2023 8:51AM [facility] [id number] - CT FLANK WO IVCON / [...] Tissues: No acute abnormality. Lower thorax: Unremarkable. Telecom Manager (topogram) images: Unremarkable. IMPRESSION: 4 mm nonobstructing calculus right proximal collecting system at the [facility]. Lathe Turner: MARLON Transcribe Date/Time: Feb 06 2023 7:54A Dictated by : GREGORIO CUMMINGS MD This examination was interpreted and the report reviewed and electronically signed by: GREGORIO CUMMINGS MD on Feb 06 2023 7:57AM EST [id number] Normal [facility] URINE CULTUREon 02-04-2023 Bacteria identified Cx Nom (U) 10,000 -<50,000 CFU/ml Normal urogenital benji [facility] UA DIP, URINE (POC)on 2022 BILIRUBIN UA (POCT) Negative Negative Ron [facility] CLARITY UA (POCT) Clear [facility] COLOR UA (POCT) Yellow [facility] GLUCOSE UA (POCT) Negative Negative mg/dL [facility] Hemoglobin Ql (U) Small Abnormal [facility] KETONE UA (POCT) Negative Negative mg/dL [facility] LEUKOCYTES UA (POCT) Negative Negative [facility] NITRITE UA (POCT) Negative Negative [facility] PH UA (POCT) 7.5 4.5 - 8.0 [facility] Protein Ql (U) Negative Negative mg/dL [facility] SPECIFIC GRAVITY UA (POCT) 1.020 1.005 - 1.030 [facility] UROBILINOGEN UA (POCT) 0.2 E.U./dL Georgina l E.U./dL [facility] XR CHEST 2V FRONTAL/LATon [facility] XR Chest PA and Lateralon IMPRESSION: No acute radiographic abnormality. Lathe Turner: MARLON Transcribe Date/Time: Aug 14 2022 2:19P Dictated by : ISSAC SANTANA MD This examination was interpreted and the report reviewed and electronically signed by: ISSAC SANTANA MD on Aug 14 2022 2:20PM [facility] DIVISION OF RADIOLOGY * * *Final Report* [...] soft tissues: Unremarkable. DIVISION OF RADIOLOGY Provider, [facility] - 08/14/2022 * * *Final Report* * [...] Unremarkable. IMPRESSION IMPRESSION: No acute radiographic abnormality. Lathe Turner: MARLON Transcribe Date/Time: Aug 14 2022 2:19P Dictated by : ISSAC SANTANA MD This examination was interpreted and the report reviewed and electronically signed by: ISSAC SANTANA MD on Aug 14 2022 2:20PM EST [facility] Radiology Study observation (narrative) [facility] XR Chest PA and LateralOrder ed By: [facility] Provider on 08-14-2022 [facility] Influenza virus A and B RNA and SARS-CoV-2 (COVID-19) N gene panel SHANE+probe (Resp)on 08-08-2022 FLUAV RNA SHANE+probe Ql (Unsp spec) Not detected Not Detected [facility] FLUBV RNA SHANE+probe Ql (Unsp spec) Not detected Not Detected [facility] SARS-CoV-2 (COVID-19) RNA SHANE+probe Ql (Resp) Not detected See comment [facility] STREP A MOLECULAR (POC)on Procedural Control Valid [facility] Strep A (POCT) Negative Negative [facility] XR CHEST 2V FRONTAL/LATon [facility] XR Chest PA and Lateralon IMPRESSION: No acute radiographic abnormality. Lathe Turner: MARLON Transcribe Date/Time: Aug 07 2022 5:43P Dictated by : ANN HUSAIN MD This examination was interpreted and the report reviewed and electronically signed by: ANN HUSAIN MD on Aug 07 2022 5:44PM [facility] DIVISION OF RADIOLOGY * * *Final Report* [...] soft tissues: Unremarkable. [facility] * * *Final Report* [...] Unremarkable. IMPRESSION IMPRESSION: No acute radiographic abnormality. Lathe Turner: PSCB Transcribe Date/Time: Aug 07 2022 5:43P Dictated by : ANN HUSAIN MD This examination was interpreted and the report reviewed and electronically signed by: ANN HUSAIN MD on Aug 07 2022 5:44PM EST [facility] Radiology Study observation (narrative) [facility] XR Chest PA and LateralOrder ed By: Ccf Provider on 08-07-2022 [facility] No Panel InformationOrdered By: Dr. Mckinley on 05-22-2022 CA 125 Antigen 7.7 U/mL 0.0-38.1 [facility] [place] Comment on above: [employer] El ectrochemiluminescence Immunoassay(ECLIA)Values obtained with different assay methods or kits cannotbe used interchangeably. Results cannot be interpreted asabsolute evidence of the presence or absence of malignantdisease.Performed at: [address] [id number] Director: Jens Jenkins PhD, Phone: [phone] Serum or plasma carcinoembry onic antigen measurement (mass/volume)Ordered By: Dr. Mckinley on 05-22-2022 Carcinoembryonic Ag [Mass/Vol] 0.7 ng/mL 0.0-4.7 [facility] [place] Comment on above: Nonsmokers <3.9 Smok ers <5.6[employer] Electrochemiluminescence Immunoassay(ECLIA)Values obtained with different assay methods or kitscannot be used interchangeably. Results cannot beinterpreted as absolute evidence of the presence orabsence of malignant disease. CT FLANK WO IVCONon 05-19-19 [facility] Comprehensive metabolic 2000 panelon 05-19-2022 Albumin [Mass/Vol] 4.0 g/dL 3.9 - 4.9 g/dL [facility] ALP [Catalytic activity/Vol] 51 U/L 34 - 123 U/L [facility] ALT [Catalytic activity/Vol] 9 U/L 7 - 38 U/L [facility] Anion gap [Moles/Vol] 10 mmol/L 9 - 18 mmol/L [facility] AST [Catalytic activity/Vol] 11 U/L Low 13 - 35 U/L [facility] Bilirubin [Mass/Vol] 0.4 mg/dL 0.2 - 1 .3 mg/dL [facility] Calcium [Mass/Vol] 8.7 mg/dL 8.5 - 10. 2 mg/dL [facility] Chloride [Moles/Vol] 105 mmol/L 97 - 10 5 mmol/L [facility] CO2 [Moles/Vol] 24 mmol/L 22 - 30 mmol/L [facility] Creatinine [Mass/Vol] 0.68 mg/dL 0.58 - 0.96 mg/dL [facility] Estimated Glomerular Filtration Rate 112 mL/min/1.73m >=60 mL/min/1.73m [facility] Glucose [Mass/Vol] 89 mg/dL 74 - 99 mg/dL [facility] Potassium [Moles/Vol] 3.9 mmol/L 3.7 - 5.1 mmol/L [facility] Protein [Mass/Vol] 6.5 g/dL 6.3 - 8.0 g/dL [facility] Sodium [Moles/Vol] 139 mmol/L 136 - 144 mmol/L [facility] Urea nitrogen [Mass/Vol] 16 mg/dL 7 - 21 mg/dL [facility] US THYROID/PARATHYROIDon [facility] XR LUMBAR GENERAL 3V AP/LAT/ L5-S1on 05-19-2022 [facility] XR SACRUM/COCCYX 3V AP/LATon 05-19-2022 [facility] No Panel InformationOrdered By: Dr. Mckinley on 05-15-2022 Follicle Stimulating Hormone 102.8 mIU/mL [facility] [place] Comment on above: NORMAL REFERENCE RAN GES FEMALE FOLLICULAR 2.3 - 12.6 mIU/mL MID-CYCLE PEAK 5.2 - 17.5 mIU/mL LUTEAL 1.7 - 12.9 mIU/mL POST-MENOPAUSAL ON MHT 5.9 - 72.8 mIU/mL NOT ON MHT 12.7 - 132.2 mlU/mL MALE 0.7 - 10.8 mIU/mL Serum or plasma estradiol (E 2) measurement (mass/volume)Ordered By: Dr. Mckinley on 05-15-2022 E2 [Mass/Vol] 23.1 pg/mL [facility] [place] Comment on above: NORMAL REFERENCE RAN GES FEMALE FOLLICULAR 21.4 - 164.8 pg/mL MID-CYCLE PEAK 49.9 - 367.2 pg/mL LUTEAL 40.2 - 259.0 pg/mL POST-MENOPAUSAL ON MHT <11.0 - 462.1 pg/mL NOT ON MHT <11.0 - 58.3 pg/mL MALE <11.0 - 52.5 pg/mL NOTE:[employer] HAS CONFIRMED THE DRUG FULVETRANT (FASLODEX) MAY CAUSE FALSELY ELEVATED ESTRADIOL RESULTS WHEN USING THIS TEST METHOD. IF PATIENT IS TAKING FULVESTRANT AN ALTERNATIVE METHOD SHOULD BE USED TO DETERMINE ESTRADIOL CONCENTRATION. CT ABD/PEL W IVCONon 022 [facility] Absolute lymphocyte countOrd ered By: Dr. Stallings on 01-30-2022 Lymphocytes Auto (Unsp spec) [#/Vol] 2.01 10*3/uL 0.83-4.51 [facility] [place] Basophil percentageOrdered B y: Dr. Stallings on 01-30-2022 Basophil percentage 0-5 SEEN /hpf 0-5 [facility] Basophils/100 WBC (Bld) 0.4 % 0-1 [facility] [place] Chloride [Moles/Vol] 105 mmol/L 98-107 [facility] Eosinophils/100 WBC (Bld) 7.7 % 0-5 [facility] [place] Glucose [Mass/Vol] 87 mg/dL 74-106 [facility] Neutrophils (Bld) [#/Vol] 6.7 10*3/uL 2.0-7.7 [facility] [place] Neutrophils/100 WBC (Bld) 66.2 % 47-70 [facility] [place] Potassium [Moles/Vol] 3.7 mmol/L 3.5-5.1 [facility] Sodium [Moles/Vol] 140 mmol/L 136-145 [facility] WBC (Bld) [#/Vol] 10.1 10*3/uL 4.4-11.0 [facility] Bilirubin Test strip Ql (U)O rdered By: Dr. Stallings on 01-30-2022 Bilirubin Ql (U) Negative Negative [facility] [place] Blood erythrocytes count (nu mber/volume)Ordered By: Dr. Stallings on 01-30-2022 RBC (Bld) [#/Vol] 4.34 10*6/uL 4.2-5.4 [facility] Blood hemoglobin measurement (mass/volume)Ordered By: Dr. Stallings on 01-30-2022 Hemoglobin (Bld) [Mass/Vol] 13.3 g/dL 12.0-15.0 [facility] [place] Blood lymphocytes/100 leukoc ytesOrdered By: Dr. Stallings on 01-30-2022 Lymphocytes/100 WBC (Bld) 20.0 % 19-41 [facility] [place] Blood monocytes/100 leukocyt esOrdered By: Dr. Stallings on 01-30-2022 Monocytes/100 WBC (Bld) 5.5 % 0-10 [facility] [place] Blood platelet mean volumeOr dered By: Dr. Stallings on 01-30-2022 Platelet mean volume (Bld) [Entitic vol] 9.6 fL 6.2-12.0 [facility] [place] Determination of erythrocyte mean corpuscular volume (MCV)Ordered By: Dr. Stallings on 01-30-2022 MCV (RBC) [Entitic vol] 92.6 fL 81-99 [facility] [place] Hematocrit Auto (Bld) [Volum e fraction]Ordered By: Dr. Stallings on 01-30-2022 Hematocrit (Bld) [Volume fraction] 40.2 % 37-47 [facility] [place] Ketones Test strip Ql (U)Ord ered By: Dr. Stallings on 01-30-2022 Ketones Ql (U) Negative Negative [facility] [place] Laboratory - Chemistry and C hemistry - challengeOrdered By: Dr. Stallings on 01-30-2022 CO2 [Moles/Vol] 30.0 mmol/L 21.0-32.0 [facility] [place] Urea nitrogen/Creatinine [Mass ratio] 16.4 mg/mg 10-20 [facility] [place] Laboratory - Hematology and Cell countsOrdered By: Dr. Stallings on 01-30-2022 Erythrocyte distribution width (RBC) [Entitic vol] 44.5 fL 35.1-43.9 [facility] [place] Erythrocyte distribution width (RBC) [Ratio] 13.2 % 11.6-14.6 [facility] [place] Immature granulocytes/100 WBC (Bld) 0.200 % 0.0-0.9 [facility] [place] Comment on above: IG% - Immature Granu locytes (promyelocytes, myelocytes and metamyelocytes) > 1% indicates that a LEFT SHIFT is Present. MCH (RBC) [Entitic mass] 30.6 pg 27.0-32.0 [facility] [place] Nucleated RBC/100 WBC (Bld) [Ratio] 0 % 0-5 [facility] [place] MCHC Auto (RBC) [Mass/Vol]Or dered By: Dr. Stallings on 01-30-2022 MCHC (RBC) [Mass/Vol] 33.1 g/dL 32-36 [facility] Mucus LM Ql (Urine sed)Order ed By: Dr. Stallings on 01-30-2022 Mucus Ql (Urine sed) 0 SEEN /hpf [facility] Nitrite Test strip Ql (U)Ord ered By: Dr. Stallings on 01-30-2022 Nitrite Ql (U) Negative Negative [facility] [place] No Panel InformationOrdered By: Dr. Stallings on 01-30-2022 Estimated Creatinine Clearance Calc 78.57 ml/min [facility] [place] Estimated GFR (MDRD) Amer 124 mL/min >60 [facility] [place] Comment on above: GFR Calc Estimated GFR (MDRD) Non-Af Amer 103 mL/min >60 [facility] [place] Comment on above: Non- GFR Calc Platelets bldOrdered By: Dr. Stallings on 01-30-2022 Platelets (Bld) [#/Vol] 270 10*3/uL 150-450 [facility] [place] Protein Test strip Ql (U)Ord ered By: Dr. Stallings on 01-30-2022 Protein Ql (U) Negative Negative [facility] [place] Serum or plasma calcium waldo urement (mass/volume)Ordered By: Dr. Stallings on 01-30-2022 Calcium [Mass/Vol] 8.6 mg/dL 8.5-10.1 [facility] Serum or plasma creatinine m easurement (mass/volume)Ordered By: Dr. Stallings on 01-30-2022 Creatinine [Mass/Vol] 0.67 mg/dL 0.55-1.02 [facility] Comment on above: The validity of the calculated GFR & GFRAA in patients over 70 years has not been determined. Clinical correlation is essential. Serum or plasma urea nitroge n measurement (mass/volume)Ordered By: Dr. Stallings on 01-30-2022 Urea nitrogen [Mass/Vol] 11 mg/dL 7-18 [facility] [place] Squamous epithelial cells de tection in urine sediment by light microscopyOrdered By: Dr. Stallings on 01-30-2022 Epithelial cells.squamous LM Ql (Urine sed) 0-5 SEEN /hpf 5-10 [facility] [place] Thin prep Papanicolaou smear with manual screeningOrdered By: Dr. Stallings on 01-30-2022 Thin prep Papanicolaou smear with manual screening 5 5-15 [facility] [place] Urine blood detectionOrdered By: Dr. Stallings on 01-30-2022 RBC Ql (U) Negative Negative [facility] [place] RBC Ql (U) 0 SEEN /hpf 0-5 [facility] [place] Urine clarityOrdered By: Dr. Stallings on 01-30-2022 Clarity (U) Clear Clear [facility] [place] Urine color determinationOrd ered By: Dr. Stallings on 01-30-2022 Color (U) Yellow Yellow [facility] [place] Urine glucose detectionOrder ed By: Dr. Stallings on 01-30-2022 Glucose Ql (U) Normal mg/dl Normal [facility] [place] Urine leukocyte esterase det ection by dipstickOrdered By: Dr. Stallings on 01-30-2022 Leukocyte esterase Test strip Ql (U) Negative Negative [facility] [place] Urine pHOrdered By: Dr. Mikal alberto on 01-30-2022 pH (U) 7.0 [pH] 5.0 - 8.0 [facility] [place] Urine sediment bacteria coun t by microscopy (number/high power field)Ordered By: Dr. Stallings on 01-30-2022 Bacteria LM.HPF (Urine sed) [#/Area] 0 /[HPF] None Seen [facility] [place] Urine specific gravity measu rementOrdered By: Dr. Stallings on 01-30-2022 Specific gravity (U) [Rel density] 1.010 1.002-1.030 [facility] [place] Urobilinogen Auto test strip Ql (U)Ordered By: Dr. Stallings on 01-30-2022 Urobilinogen Ql (U) Normal mg/dl Normal [facility] Medical Cytologyon 2 Medical Cytology [facility] DEPARTMENT OF PATHOLOGY AND [facility] LABORATORY MEDICINE [address] [place] [address] FINAL MEDICAL CYTOLOGY REPORT NAME: SAMMY REDD : 1980 42 Y F BILLING NO.: [id number] LOCATION: PAC PACU OUTPT 1PAC PROCEDURE 01/27/2022 [...] characteristics determined by the clinical laboratories of [facility]. They have not been cleared by the [...] negativity on decalcified specimens. Case reviewed at [facility] [address] [place] [address]. DEPARTMENT OF PATHOLOGY AND LABORATORY MEDICINE [place], [place] [address] [email or web address] [id number] Normal [facility] OPERATIVE REPORTon Ordered by an unspec ified provider. [facility] Op Noteon 01-27-2022 Op Note Pre-operative Diagno [...] stable condition with a minimal EBL. Normal [facility] [facility] [employer] STUDIO 3on 2 [facility] Work Phone: Radiology Study observation (narrative) [facility] Work Phone: Surgical Pathologyon 022 Surgical Pathology [id number] [facility] DEPARTMENT OF [facility] PATHOLOGY AND LABORATORY MEDICINE [address] [place] [address] FINAL SURGICAL PATHOLOGY REPORT NAME: SAMMY REDD : 1980 42 Y F BILLING NO.: [id number] LOCATION: [address] 61 PROCEDURE 01/27/2022 DATE: SURGEON: DEON [...] characteristics determined by the clinical laboratories of [facility]. They have not been cleared by [...] negativity on decalcified specimens. Professional Performing Location: [address] [address]. DEPARTMENT OF PATHOLOGY AND LABORATORY MEDICINE [place], [place] [address] [id number] Normal [facility] No Panel Informationon 01-02 Total Complement (CH50) > 60 U/mL >41 [facility] Work Phone: Comment on above: Age Male [...] to determine out of range values.Performed at: [facility] [id number] [place], [place] [id number] Director: Jens Jenkins PhD, Phone: [phone] Serum or plasma complement C 4 measurement (mass/volume)on 01-02-2022 Complement C4 [Mass/Vol] 40 mg/dL 12-38 [facility] Work Phone: Erythrocyte sedimentation ra sean 12-27-2021 ESR (Bld) [Velocity] 20 mm/h 0-30 [facility] Work Phone: Serum or plasma complement C 3 measurement (mass/volume)on 12-27-2021 Complement C3 [Mass/Vol] 138 mg/dL 82-167 [facility] Work Phone: Comment on above: Performed at: [id number] [place], [place] [id number] Director: Jens Jenkins PhD, Phone: [phone] Cervical or vagninal specime n microscopic examination by cytology stain (reported ason 10-01-2021 Cytology report Cyto stain Doc (Cvx/Vag) Comment . [facility] Work Phone: Comment on above: The Pap [...] DNA Probe+sig amp Ql (Cvx) Negative Negative [facility] Work Phone: Comment on above: This nucleic acid am plification test detects fourteen high- risk HPV types (16,18,31,33,35,39,45,51,52,56,58,59,66,68)without differentiation.Performed at: - [address] [id number] Director: Arin Marquez MD, Phone: [phone] at: =[facility] [id number] Director: Arin Marquez MD, Phone: [phone] Gram stain for investigation of transfusion reactionon 10-01-2021 Microscopic observation Gram stain Nom (Unsp spec) [facility] Work Phone: Laboratory - Cytologyon [employer] Cyto stain Nom (Cvx/Vag) [ID] Comment . [facility] Work Phone: Comment on above: Peter Morris totechnologist Laboratory - Miscellaneous t estson 10-01-2021 Service comment (Unsp spec) [Interp] Comment . [facility] Work Phone: Comment on above: This liquid based Th inPrep(R) pap test was screened withthe use of an image guided system. Service comment (Unsp spec) [Interp] . . [facility] Work Phone: No Panel Informationon 10-01 Pathology report final diagnosis Narrative Comment . [facility] Work Phone: Comment on above: NEGATIVE FOR INTRAEP ITHELIAL LESION OR MALIGNANCY. POC Bacterial Vaginitis (Rapid) Negative [facility] Work Phone: Thin prep Papanicolaou smear with manual screeningon 10-01-2021 Genital Culture Presumptive C albicans [facility] Work Phone: Basophil percentageon 2021 Basophil percentage Not Reportable W [facility] Work Phone: Bilirubin [Mass/Vol] 0.60 mg/dL 0.20-1.00 [facility] Work Phone: Comment on above: For patients on eltr ombopag therapy, use of Dimension [place] TBIL is not recommended. Chloride [Moles/Vol] 105 mmol/L 98-107 [facility] Work Phone: Glucose [Mass/Vol] 82 mg/dL 74-106 [facility] Work Phone: Potassium [Moles/Vol] 3.7 mmol/L 3.5-5.1 [facility] Work Phone: Protein [Mass/Vol] 7.8 g/dL 6.4-8.2 [facility] Work Phone: Sodium [Moles/Vol] 138 mmol/L 136-145 [facility] Work Phone: Blood or tissue coagulation factor II targeted mutation analysis by molecular geneticon 08-15-2021 F2 gene targeted mutation analysis [employer] Nom (Bld/Tiss) Comment . [facility] Work Phone: Comment on above: Result: c.*97G>A [...] of VTE in homozygotes has been reported ignette 1.1%/year. Individuals who carry both a c.*97G>A variant in theF2 gene and a c.1601G>A (p. [id number]) variant in the F5 gene(commonly referred to as Factor V Leiden) have an approximately 20-fold increased risk for venous thromboembolism. Risks are likely ginette even higher in more complex genotype combinations involving theF2 c.*97G>A variant and Factor V Leiden (PMID: 77419857). Additionalrisk factors include but are not limited [...] for health care providers to discussresults at [phone] ([phone]).Test Details:Variant analyzed: c.*97G>A, previously referred to as [id number]/Limitations:DNA analysis of the F2 gene (NM_000506.5) was [...] was developed and its performance characteristics determinedby [employer]. It has not been cleared or approved by the Food and DrugAdministration.References:Angélica S, Jennie AK, Aman R, Patricia WW, Rohan ROMO; ACMG ProfessionalPractice and Guidelines Committee. Addendum: [place] [employer] consensus statement on factor V Leiden mutationtesting. Darshana Med. 2020Jun 29. doi: 10.1038/[id number]-h.PMID: 30589446.Devin RINCON. Prothrombin Thrombophilia. 2005Nov 18[Updated 2020May 31]. In: Elpidio MP, Shira HH, Jasvir RA, et al.,editors. Darvin(R) [Internet]. [place] ([place]): [facility]; 2449-8610. Available from:https://www.ncbi.nlm.nih.gov/books/GHT0433/Hao S, Jennie AK, Power X, Micheal B, Rasheed EB, Johana P, Darren CS;MG Laboratory Integrated Marketing Specialist Committee. Venous thromboembolismlaboratory testing (factor V Leiden and factor II c.*97G>A),2018 update: a technical standard of the [place] [employer] and Genomics (ACMG). Darshana Med. 2018 Mar;20(12):4565-1597.doi: 10.1038/[id number]-w. Epub 2017Jan 29. PMID: 41259873.Nelida Escobar, PhD, Jasmeet Huber, PhD, Teresa Jiang, PhD, Janice Wallis, PhD, FACMaurilio Rachel, PhD, Layo Us, PhD, Drew Story, PhD, FAC Dilute Carl's viper venom timeon 08-15-2021 dRVVT Coag (PPP) [Time] 34.4 s 0.0-47.0 [facility] Work Phone: Erythrocyte sedimentation ra sean 08-15-2021 ESR (Bld) [Velocity] 31 mm/h 0-30 [facility] Work Phone: Functional protein C measure menton 08-15-2021 Protein C actual/normal Chromogenic method (PPP) [Rel catalytic activity/Vol] 138 % 73-180 [facility] Work Phone: Comment on above: Performed at: [address], [place], [place] [id number] Director: Margie Ferrer MD, Phone: [phone] at: - [facility] [address] [id number] Director: Jens Jenkins PhD, Phone: [phone] at: TG - [facility] [id number] [place], [place] [id number] Director: Wero Villagomez [facility], Phone: [phone] Laboratory - Chemistry and C hemistry - challengeon 08-15-2021 ALP [Catalytic activity/Vol] 62 U/L 45-117 [facility] Work Phone: ALT [Catalytic activity/Vol] 22 U/L 13-56 [facility] Work Phone: [phone] CO2 [Moles/Vol] 25.0 mmol/L 21.0-32.0 [facility] Work Phone: Globulin (S) [Mass/Vol] 3.9 g/dL 2.2-4.2 [facility] Work Phone: Urea nitrogen/Creatinine [Mass ratio] 27.6 mg/mg 10-20 [facility] Work Phone: No Panel Informationon 08-15 Anti-Cardiolipin IgM Antibody < 9 MPL U/mL 0-12 [facility] Work Phone: Comment on above: Negative: <13 Indete rminate: 13 - 20 Low-Med Positive: >20 - 80 High Positive: >80 Anti-Nuclear Antibody Screen Negative Negative [facility] Work Phone: Comment on above: Performed at: CB - [facility] [address] [id number] Director: Jens Jenkins PhD, Phone: [phone] Centromere B Antibody Not Reportable [facility] Work Phone: Estimated GFR (MDRD) Amer 120 mL/min >60 [facility] Work Phone: Comment on above: GFR Calc Estimated GFR (MDRD) Non-Af Amer 100 mL/min >60 [facility] Work Phone: Comment on above: Non- GFR Calc Factor V Leiden Mutation Comment . [facility] Work Phone: Comment on above: Result: c.1601G>A (p .[id number]) - Not DetectedThis result is not associated with an increased risk for venousthromboembolism. See Additional Clinical Information andComments.Additional Clinical Information:Venous thromboembolism is a multifactorial diseaseinfluenced by genetic, environmental, and circumstantialrisk factors. The c.1601G>A (p. [id number]) variant in theF5 gene, commonly referred to [...] F2 c.*97G>Avariant and Factor V Leiden (PMID: 88145957). Additionalrisk factors include but are not limited [...] for health careproviders to discuss results at [phone] ([phone]).Test Details:Variant Analyzed: c.1601G>A (p. [id number]), referred toas Factor V LeidenMethods/Limitations:DNA analysis of [...] was developed and its performance characteristicsdetermined by [employer]. It has not been cleared orapproved by the Food and Drug Administration.References:Angélica [place], Jennie THAKKAR, Aman R, Patricia WW, Rohan ROMO; ACMGProfessional Practice and Guidelines Committee. Addendum:[place] [employer] consensus statement onfactor V Leiden mutation testing. Darshana Med. 2020Jun 29.doi: 10.1038/[id number]-e. PMID: 04046194.Devin RINCON. Factor V Leiden Thrombophilia. 1998September 07[Updated 2017Apr 30]. In: Elpidio MP, Shiar HH, Jasvir RA,et al., editors. Darvin(R) [Internet]. [place] ([place]):[facility], [place]; 2178-1474. Availablefrom: https://www.ncbi.nlm.nih.gov/books/HHC1974/Hao [place], Jennie THAKKAR, Tono X, Micheal B, Rasheed EB, Johana P,Darren CS; ACMG Laboratory Integrated Marketing Specialist Committee.Venous thromboembolism laboratory testing (factor V Leidenand factor II c.*97G>A), 2018 update: a technical standardof the [place] [employer] and Genomics(ACMG). Darshana Med. 2018 Mar;20(12):1300-9633. doi:10.1038/[id number]-c. Epub 2017Jan 29. PMID: 82453113.Nelida Escobar, PhD, Jasmeet Huber, PhD, Teresa Jiang, PhD, Janice Wallis, PhD, FEDERICA Rachel, PhD, Layo Us, PhD, Drew Story, PhD, FACMG IMMIGRATION MANAGER Antibody Not Reportable [facility] Work Phone: Total Complement (CH50) > 60 U/mL >41 [facility] Work Phone: Comment on above: Age Male [...] (PPP) [Rel catalytic activity/Vol] 107 % 75-135 [facility] Work Phone: Comment on above: Direct Xa inhibitor anticoagulants such as rivaroxaban,apixaban and edoxaban will lead to spuriously elevatedantithrombin activity levels possibly masking a deficiency. Platelet poor plasma antithr ombin antigen detection by immunoassayon 08-15-2021 Antithrombin Ag IA Ql (PPP) 87 % 72-124 [facility] Work Phone: Comment on above: This test was develo ped and its performance characteristicsdetermined by [employer]. It has not been cleared orapproved by the Food and Drug Administration. Platelet poor plasma protein S actual/normal ratio (relative time)on 08-15-2021 Protein S actual/normal Coag (PPP) [Relative time] 78 % 63-140 [facility] Work Phone: Comment on above: Protein S activity m ay be falsely increased (masking anabnormal, low result) in patients receiving direct Xainhibitor (e.g., rivaroxaban, apixaban, edoxaban) or adirect thrombin inhibitor (e.g., dabigatran) anticoagulanttreatment due to assay interference by these drugs. Protein C antigen assayon Protein C Ag actual/normal IA (PPP) [Relative mass conc] 121 % 60-150 [facility] Work Phone: Protein S measurement in ghislaine telet poor plasma by coagulation assay (units/volume)on 08-15-2021 Protein S Coag Qn (PPP) 92 % 60-150 [facility] Work Phone: Comment on above: This test was develo ped and its performance characteristicsdetermined by [employer]. It has not been cleared orapproved by the Food and Drug Administration. Protein S, freeon 08-15-2021 Protein S Free Ag IA Qn (PPP) 89 % 61-136 [facility] Work Phone: Serum DNA double strand anti body assay (units/volume)on 08-15-2021 DNA double strand Ab Qn (S) Not Reportable [facility] Work Phone: Serum Susan-1 antibody assay (u nits/volume)on 08-15-2021 Susan-1 extractable nuclear Ab Qn (S) Not Reportable [facility] Work Phone: Serum Scl-70 extractable nuc lear antibody assay (units/volume)on 08-15-2021 SCL-70 extractable nuclear Ab Qn (S) Not Reportable [facility] Work Phone: Serum Mendoza extractable nucl ear antibody detectionon 08-15-2021 Mendoza extractable nuclear Ab Ql (S) Not Reportable [facility] Work Phone: Serum cardiolipin IgG antibo dy assay by immunoassay (units/volume)on 08-15-2021 Cardiolipin IgG IA Qn (S) < 9 GPL U/mL 0-14 [facility] Work Phone: Comment on above: Negative: <15 Indete rminate: 15 - 20 Low-Med Positive: >20 - 80 High Positive: >80 Serum or plasma albumin waldo urement (mass/volume)on 08-15-2021 Albumin [Mass/Vol] 3.9 g/dL 3.2-5.0 [facility] Work Phone: Serum or plasma albumin/glob ulin mass ratioon 08-15-2021 Albumin/Globulin [Mass ratio] 1.0 {ratio} 0.9-2.4 [facility] Work Phone: Serum or plasma calcium waldo urement (mass/volume)on 08-15-2021 Calcium [Mass/Vol] 8.6 mg/dL 8.5-10.1 [facility] Work Phone: Serum or plasma cardiolipin IgA antibody assay (units/volume)on 08-15-2021 Cardiolipin IgA Qn < 9 APL U/mL 0-11 [facility] Work Phone: Comment on above: Negative: <12 Indete rminate: 12 - 20 Low-Med Positive: >20 - 80 High Positive: >80 Serum or plasma complement C 3 measurement (mass/volume)on 08-15-2021 Complement C3 [Mass/Vol] 170 mg/dL 82-167 [facility] Work Phone: Serum or plasma complement C 4 measurement (mass/volume)on 08-15-2021 Complement C4 [Mass/Vol] 48 mg/dL 12-38 [facility] Work Phone: Serum or plasma creatinine m easurement (mass/volume)on 08-15-2021 Creatinine [Mass/Vol] 0.69 mg/dL 0.55-1.02 [facility] Work Phone: Comment on above: The validity of the calculated GFR & GFRAA in patients over 70 years has not been determined. Clinical correlation is essential. Serum or plasma urea nitroge n measurement (mass/volume)on 08-15-2021 Urea nitrogen [Mass/Vol] 19 mg/dL 7-18 [facility] Work Phone: Thin prep Papanicolaou smear with manual screeningon 08-15-2021 Thin prep Papanicolaou smear with manual screening 12 U/L 15-37 [facility] Work Phone: Thin prep Papanicolaou smear with manual screening 8 5-15 [facility] Work Phone: Thin prep Papanicolaou smear with manual screening 35.8 sec 0.0-47.6 [facility] Work Phone: Thin prep Papanicolaou smear with manual screening 1.08 Ratio 0.00-1.34 [facility] Work Phone: Thin prep Papanicolaou smear with manual screening 34.8 sec 0.0-51.9 [facility] Work Phone: Thin prep Papanicolaou smear with manual screening Comment: . [facility] Work Phone: Comment on above: No lupus anticoagula nt was detected. Thrombin time in platelet po or plasmaon 08-15-2021 Thrombin time Coag (PPP) [Time] 16.5 sec 0.0-23.0 [facility] Work Phone: Glucose Glucometer (BldC) [M ass/Vol]on 07-30-2021 Glucose [Mass/Vol] 81 mg/dL 74-106 [facility] Work Phone: Comment on above: MANAGEMENT OF PATIEN T CARE PER NURSING PROTOCOL Basophil percentageon 2021 WBC (Bld) [#/Vol] 9.7 10*3/uL 4.4-11.0 [facility] Work Phone: Blood erythrocytes count (nu mber/volume)on 07-29-2021 RBC (Bld) [#/Vol] 4.52 10*6/uL 4.2-5.4 [facility] Work Phone: Blood hemoglobin measurement (mass/volume)on 07-29-2021 Hemoglobin (Bld) [Mass/Vol] 13.8 g/dL 12.0-15.0 [facility] Work Phone: Blood platelet mean volumeon 07-29-2021 Platelet mean volume (Bld) [Entitic vol] 10.3 fL 6.2-12.0 [facility] Work Phone: Determination of erythrocyte mean corpuscular volume (MCV)on 07-29-2021 MCV (RBC) [Entitic vol] 91.6 fL 81-99 [facility] Work Phone: Hematocrit Auto (Bld) [Volum e fraction]on 07-29-2021 Hematocrit (Bld) [Volume fraction] 41.4 % 37-47 [facility] Work Phone: [phone] Laboratory - Hematology and Cell countson 07-29-2021 Erythrocyte distribution width (RBC) [Entitic vol] 42.5 fL 35.1-43.9 [facility] Work Phone: [phone] Erythrocyte distribution width (RBC) [Ratio] 12.6 % 11.6-14.6 [facility] Work Phone: [phone] MCH (RBC) [Entitic mass] 30.5 pg 27.0-32.0 [facility] Work Phone: [phone] MCHC Auto (RBC) [Mass/Vol]on 07-29-2021 MCHC (RBC) [Mass/Vol] 33.3 g/dL 32-36 [facility] Work Phone: [phone] Platelets bldon 07-29-2021 Platelets (Bld) [#/Vol] 311 10*3/uL 150-450 [facility] Work Phone: [phone] Basophil percentageon 2021 Basophil percentage 0-5 SEEN /hpf [facility] Work Phone: [phone] Bilirubin Test strip Ql (U)o n 06-05-2021 Bilirubin Ql (U) Negative Negative [facility] Work Phone: Culture, urineon 06-05-2021 Bacteria identified Cx Nom (U) Positive [facility] Work Phone: [phone] Ketones Test strip Ql (U)on 06-05-2021 Ketones Ql (U) 5 mg/dl Negative [facility] Work Phone: [phone] Laboratory - Chemistry and C hemistry - challengeon 06-05-2021 Bilirubin Ql (U) Negative [facility] Work Phone: [phone] Glucose Ql (U) Negative [facility] Work Phone: [phone] Ketones Ql (U) Moderate (40+) [facility] Work Phone: [phone] pH (U) 5.0 [pH] [facility] Work Phone: Specific gravity (U) [Rel density] 1.015 [facility] Work Phone: Urobilinogen (U) [Mass/Vol] Negative [facility] Work Phone: Laboratory - Hematology and Cell countson 06-05-2021 Hemoglobin Ql (U) Negative [facility] Work Phone: Laboratory - Specimen inform ationon 06-05-2021 Clarity (U) Clear [facility] Work Phone: Color (U) ORALIA [facility] Work Phone: Laboratory - Urinalysison Nitrite Ql (U) Negative [facility] Work Phone: Protein Ql (U) Negative [facility] Work Phone: Mucus LM Ql (Urine sed)on Mucus Ql (Urine sed) 0 SEEN /hpf [facility] Work Phone: Nitrite Test strip Ql (U)on 06-05-2021 Nitrite Ql (U) Negative Negative [facility] Work Phone: No Panel Informationon 06-05 Urine Leukocytes Negatve [facility] Work Phone: Urine Non-Hemolyzed Blood Negative [facility] Work Phone: Protein Test strip Ql (U)on 06-05-2021 Protein Ql (U) Negative Negative [facility] Work Phone: Squamous epithelial cells de tection in urine sediment by light microscopyon 06-05-2021 Epithelial cells.squamous LM Ql (Urine sed) 5-10 SEEN /hpf [facility] Work Phone: Urine blood detectionon RBC Ql (U) Negative Negative [facility] Work Phone: RBC Ql (U) 0 SEEN /hpf [facility] Work Phone: Urine clarityon 06-05-2021 Clarity (U) Sl. Cloudy Clear [facility] [facility] [place] Work Phone: Urine color determinationon 06-05-2021 Color (U) Yellow Yellow [facility] [place] Work Phone: Urine glucose detectionon Glucose Ql (U) Normal mg/dl Normal [facility] [place] Work Phone: Urine leukocyte esterase det ection by dipstickon 06-05-2021 Leukocyte esterase Test strip Ql (U) Negative Negative [facility] [place] Work Phone: Urine pHon 06-05-2021 pH (U) 5.0 [pH] [facility] [place] Work Phone: Urine sediment bacteria coun t by microscopy (number/high power field)on 06-05-2021 Bacteria LM.HPF (Urine sed) [#/Area] RARE /hpf None Seen [facility] [place] Work Phone: Urine specific gravity measu rementon 06-05-2021 Specific gravity (U) [Rel density] 1.025 [facility] [place] Work Phone: Urobilinogen Auto test strip Ql (U)on 06-05-2021 Urobilinogen Ql (U) Normal mg/dl Normal [facility] Work Phone: XR Lumbar spine 3 Viewson IMPRESSION: Spondylosis of the lumbar spine. Lathe Turner: MARLON Transcribe Date/Time: Dec 04 2020 8:11A Dictated by : SANDER MEEKS MD This examination was interpreted and the report reviewed and electronically signed by: SANDER MEEKS MD on Dec 04 2020 8:13AM [facility] DIVISION OF RADIOLOGY * * *Final Report* [...] IMPRESSION IMPRESSION: Spondylosis of the lumbar spine. Lathe Turner: MARLON Transcribe Date/Time: Dec 04 2020 8:11A Dictated by : SANDER MEEKS MD This examination was interpreted and the report reviewed and electronically signed by: SANDER MEEKS MD on Dec 04 2020 8:13AM EST [facility] XR Lumbar spine 3 ViewsOrder ed By: Ccf Provider on 12-04-2020 [facility] XR Lumbar spine 3 Viewson Radiology Study observation (narrative) [facility] XR Pelvis and Hip - left AP and Lateral frogon 02-13-2020 IMPRESSION: Unremark able study Lathe Turner: MARLON Transcribe Date/Time: Feb 13 2020 11:09A Dictated by : RIVER ROCHA MD This examination was interpreted and the report reviewed and electronically signed by: RIVER ROCHA MD on Feb 13 2020 11:10AM [facility] DIVISION OF RADIOLOGY * * *Final Report* [...] structures appear intact. [facility] * * *Final Report* [...] structures appear intact. 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 Type: Allied Health Filed: 06/24/2019 4:05 PM [...] June 24, 2019 TIME: 4:05 PM Normal [facility] Beta HCG Quant, EDon 020 Beta HCG Quant, ED <0.6 Normal <5.0 [facility] Comment on above: Result Comment: NELLI TITATIVE HCG NORMAL RANGES Weeks of Gestation (Weeks Since LMP) 3 Weeks (5.8-71.2 mIU/mL) 4 Weeks (9.5-750 mIU/mL) 5 Weeks (217-7138 mIU/mL) 6 Weeks (158-81675 mIU/mL) 7 Weeks (3697-339194 mIU/mL) 8 Weeks (21403-139648 mIU/mL) 9 Weeks (69498-545933 mIU/mL) 10 Weeks (49595-236363 mIU/mL) 12 Weeks (09476-231911 mIU/mL) Referenced to 4th IS of [facility] Performed By: #### L IPA, DDMER, CBCDIF, CMP, HCGED ####[facility] [id number] [place] [phone] CBC and Differentialon 06-24 Abs Baso 0.03 k/uL Normal <0.11 [facility] Comment on above: Performed By: #### L IPA, DDMER, CBCDIF, CMP, HCGED #### [facility] [address] [facility] [phone] Abs Audrain 0.69 k/uL Normal <0.87 [facility] Comment on above: Performed By: #### L IPA, DDMER, CBCDIF, CMP, HCGED #### [facility] [address] [facility] [phone] Abs Neut 9.60 k/uL High 1.45-7.50 [facility] Comment on above: Performed By: #### L IPA, DDMER, CBCDIF, CMP, HCGED #### [facility] [address] [facility] [phone] Basophils/100 WBC (Bld) 0.2 % Normal [facility] Comment on above: Performed By: #### L IPA, DDMER, CBCDIF, CMP, HCGED #### [facility] [address] [facility] [phone] Eosinophils (Bld) [#/Vol] 0.09 10*3/uL Normal <0.46 [facility] Comment on above: Performed By: #### L IPA, DDMER, CBCDIF, CMP, HCGED #### [facility] [address] [facility] [phone] Eosinophils/100 WBC (Bld) 0.7 % Normal [facility] Comment on above: Performed By: #### L IPA, DDMER, CBCDIF, CMP, HCGED #### [facility] [address] [facility] [phone] Erythrocyte distribution width (RBC) [Ratio] 13.5 % Normal 11.5-15.0 [facility] Comment on above: Performed By: #### L IPA, DDMER, CBCDIF, CMP, HCGED #### [facility] [address] [facility] [phone] Hematocrit (Bld) [Volume fraction] 42.5 % Normal 36.0-46.0 [facility] Comment on above: Performed By: #### L IPA, DDMER, CBCDIF, CMP, HCGED #### [facility] [address] [place], [place] [phone] Hemoglobin (Bld) [Mass/Vol] 13.9 g/dL Normal 11.5-15.5 [facility] Comment on above: Performed By: #### L IPA, DDMER, CBCDIF, CMP, HCGED #### [facility] [address] [place] [address] Lymphocytes (Bld) [#/Vol] 3.34 10*3/uL Normal 1.00-4.00 [facility] Comment on above: Performed By: #### L IPA, DDMER, CBCDIF, CMP, HCGED #### [facility] [address] [place] [address] Lymphocytes/100 WBC (Bld) 24.3 % Normal [facility] Comment on above: Performed By: #### L IPA, DDMER, CBCDIF, CMP, HCGED #### [facility] [address] [place] [address] MCH (RBC) [Entitic mass] 30.0 pG Normal 26.0-34.0 [facility] Comment on above: Performed By: #### L IPA, DDMER, CBCDIF, CMP, HCGED #### [facility] [address] [place] [address] MCHC (RBC) [Mass/Vol] 32.7 g/dL Normal 30.5-36.0 [facility] Comment on above: Performed By: #### L IPA, DDMER, CBCDIF, CMP, HCGED #### [facility] [address] [place] [address] MCV (RBC) [Entitic vol] 91.8 fL Normal 80.0-100.0 [facility] Comment on above: Performed By: #### L IPA, DDMER, CBCDIF, CMP, HCGED #### [facility] [address] [place], [place] [phone] Monocytes/100 WBC (Bld) 5.0 % Normal [facility] Comment on above: Performed By: #### L IPA, DDMER, CBCDIF, CMP, HCGED #### [facility] [address] [place] [phone] Neutrophils/100 WBC (Bld) 69.8 % Normal [facility] Comment on above: Performed By: #### L IPA, DDMER, CBCDIF, CMP, HCGED #### [facility] [address] [place] [phone] Platelet mean volume (Bld) [Entitic vol] 10.0 fL Normal 9.0-12.7 [facility] Comment on above: Performed By: #### L IPA, DDMER, CBCDIF, CMP, HCGED #### [facility] [address] Platelets (Bld) [#/Vol] 297 10*3/uL Normal 150-400 [facility] Comment on above: Performed By: #### L IPA, DDMER, CBCDIF, CMP, HCGED #### [facility] [address] RBC (Bld) [#/Vol] 4.63 10*6/uL Normal 3.90-5.20 [facility] Comment on above: Performed By: #### L IPA, DDMER, CBCDIF, CMP, HCGED #### [facility] [address] WBC (Bld) [#/Vol] 13.75 10*3/uL High 3.70-11.00 [facility] Comment on above: Performed By: #### L IPA, DDMER, CBCDIF, CMP, HCGED #### [facility] [address] ABD/PEL W IVCONon 020 CT ABD/PEL W IVCON * * *Final Report* * * DATE OF EXAM: Jun 24 2019 4:08PM [facility]/PEL W IVCON / [...] Tiny nonobstructing calcification lower pole RIGHT kidney Lathe Turner: MARLON Transcribe Date/Time: Jun 24 2019 4:11P Dictated by : ANDRIA LEMOS DO This examination was interpreted and the report reviewed and electronically signed by: ANDRIA LEMOS DO on Jun 24 2019 4:18PM EST [id number] Normal [facility] Comp Metabolic Panelon 06-24 Albumin [Mass/Vol] 4.1 g/dL Normal 3.9-4.9 [facility] Comment on above: Performed By: #### L IPA, DDMER, CBCDIF, CMP, HCGED #### [facility] [address] [place] [address] ALP [Catalytic activity/Vol] 54 U/L Normal 34-123 [facility] Comment on above: Performed By: #### L IPA, DDMER, CBCDIF, CMP, HCGED #### [facility] [address] [facility] [phone] ALT [Catalytic activity/Vol] 14 U/L Normal 7-38 [facility] Comment on above: Performed By: #### L IPA, DDMER, CBCDIF, CMP, HCGED #### [facility] [address] [facility] [phone] Anion gap [Moles/Vol] 14 mmol/L Normal 9-18 [facility] Comment on above: Performed By: #### L IPA, DDMER, CBCDIF, CMP, HCGED #### [facility] [address] [facility] [phone] AST [Catalytic activity/Vol] 14 U/L Normal 13-35 [facility] Comment on above: Performed By: #### L IPA, DDMER, CBCDIF, CMP, HCGED #### [facility] [address] [facility] [phone] Bilirubin [Mass/Vol] 0.4 mg/dL Normal 0.2-1.3 [facility] Comment on above: Performed By: #### L IPA, DDMER, CBCDIF, CMP, HCGED #### [facility] [address] [facility] [phone] Calcium [Mass/Vol] 9.2 mg/dL Normal 8.5-10.2 [facility] Comment on above: Performed By: #### L IPA, DDMER, CBCDIF, CMP, HCGED #### [facility] [address] [facility] [phone] Chloride [Moles/Vol] 105 mmol/L Normal 97-105 [facility] Comment on above: Performed By: #### L IPA, DDMER, CBCDIF, CMP, HCGED #### [facility] [address] [facility] [phone] CO2 [Moles/Vol] 21 mmol/L Low 22-30 [facility] Comment on above: Performed By: #### L IPA, DDMER, CBCDIF, CMP, HCGED #### [facility] [address] [facility] [phone] Creatinine [Mass/Vol]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 [Mass fraction] 97 % [facility] [place] 02-24-2023 20:15-0400 Systolic blood pressure 151 mm[Hg] [facility] [place] 02-14-2023 05:38-0400 Body height 152.4 cm [facility] 02-14-2023 05:38-0400 Body mass index (BMI) [Ratio] 39.2 kg/m2 [facility] [place] 02-14-2023 05:38-0400 Body temperature 98.5 [degF] [facility] 02-14-2023 05:38-0400 Body weight 91.2 kg [facility] 02-14-2023 05:38-0400 Heart rate 90 /min [facility] 02-14-2023 05:38-0400 Respiratory rate 16 /min [facility] 02-14-2023 05:38-0400 SaO2% (BldA) [Mass fraction] 98 % [facility] [place] 02-09-2023 11:12-0400 Body height 152.4 cm Vicky Piccari 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 Work Phone: [facility] 02-09-2023 11:12-0400 Body weight 87.09 kg Vicky Piccari 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 Work Phone: [facility] 02-09-2023 11:12-0400 Heart rate 68 /min Vicky Piccari 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 Work Phone: [facility] 02-02-2023 14:46-0400 Body weight 88.09 kg 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 Work Phone: [facility] 02-02-2023 14:46-0400 Diastolic blood pressure 66 mm[Hg] 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 Work Phone: [facility] 02-02-2023 14:46-0400 Heart rate 68 /min 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 Work Phone: [facility] 02-02-2023 14:46-0400 Respiratory rate 14 /min 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 Work Phone: [facility] 02-02-2023 14:46-0400 Systolic blood pressure 120 mm[Hg] 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 Work Phone: [facility] 12-02-2022 15:33-0400 Body temperature 97.81 [degF] Jose Luis Toledo DO Work Phone: [facility] 12-02-2022 15:33-0400 Body weight 85.73 kg Jose Luis Toledo DO Work Phone: [facility] 12-02-2022 15:33-0400 Diastolic blood pressure 70 mm[Hg] Jose Luis Toledo DO Work Phone: [facility] 12-02-2022 15:33-0400 Heart rate 68 /min Jose Luis Toledo DO Work Phone: [facility] 12-02-2022 15:33-0400 Respiratory rate 12 /min Jose Luis Toledo DO Work Phone: [facility] 12-02-2022 15:33-0400 Systolic blood pressure 124 mm[Hg] Jose Luis Toledo DO Work Phone: [facility] 08-14-2022 10:42-0400 Body temperature 97.59 [degF] Dee Echavarriaman 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 Work Phone: [facility] 08-14-2022 10:42-0400 Body weight 87.64 kg Dee Echavarriaman 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 Work Phone: [facility] 08-14-2022 10:42-0400 Diastolic blood pressure 82 mm[Hg] Dee Mark 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 Work Phone: [facility] 08-14-2022 10:42-0400 Heart rate 78 /min Dee Mark 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 Work Phone: [facility] 08-14-2022 10:42-0400 Respiratory rate 16 /min Dee Mark 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 Work Phone: [facility] 08-14-2022 10:42-0400 SaO2% (BldA) [Mass fraction] 99 % Dee Mark 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 Work Phone: [facility] 08-14-2022 10:42-0400 Systolic blood pressure 124 mm[Hg] Dee Mark 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 Work Phone: [facility] 08-07-2022 17:02-0400 Body temperature 100 [degF] Ry Castillo 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 Work Phone: [facility] 08-07-2022 17:02-0400 Body weight 88.45 kg Ry Castillo 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 Work Phone: [facility] 08-07-2022 17:02-0400 Diastolic blood pressure 86 mm[Hg] Ry Castillo 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 Work Phone: [facility] 08-07-2022 17:02-0400 Heart rate 72 /min Ry Castillo 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 Work Phone: [facility] 08-07-2022 17:02-0400 Respiratory rate 20 /min Ry Castillo 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 Work Phone: [facility] 08-07-2022 17:02-0400 Systolic blood pressure 126 mm[Hg] Ry Castillo 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 Work Phone: [facility] 07-31-2022 09:21-0400 Body weight 89 kg Dee Mark 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 Work Phone: [facility] 07-31-2022 09:21-0400 Diastolic blood pressure 78 mm[Hg] Dee Mark 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 Work Phone: [facility] 07-31-2022 09:21-0400 Heart rate 70 /min Dee Mark 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 Work Phone: [facility] 07-31-2022 09:21-0400 Respiratory rate 16 /min Dee Mark 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 Work Phone: [facility] 07-31-2022 09:21-0400 SaO2% (BldA) [Mass fraction] 95 % Dee Mark 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 Work Phone: [facility] 07-31-2022 09:21-0400 Systolic blood pressure 116 mm[Hg] Dee Mark 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 Work Phone: [facility] 06-30-2022 08:35-0500 Body temperature 97.3 [degF] Jose Luis Toledo DO Work Phone: [facility] 06-30-2022 08:35-0500 Body weight 88 kg Jose Luis Toledo DO Work Phone: [facility] 06-30-2022 08:35-0500 Diastolic blood pressure 80 mm[Hg] Jose Luis Toledo DO Work Phone: [facility] 06-30-2022 08:35-0500 Heart rate 80 /min Jose Luis Toledo DO Work Phone: [facility] 06-30-2022 08:35-0500 Respiratory rate 16 /min Jose Luis Toledo DO Work Phone: [facility] 06-30-2022 08:35-0500 Systolic blood pressure 120 mm[Hg] Jose Luis Toledo DO Work Phone: [facility] 05-15-2022 09:10-0500 Body height 152.[address] Jose Luis Toledo Work Phone: [facility] [place] 05-15-2022 09:08-0500 Body mass index (BMI) [Ratio] 38 kg/m2 Dr. Jose Luis Toledo Work Phone: [facility] [place] 05-15-2022 09:08-0500 Body weight 88.[address] Jose Luis Toledo Work Phone: [facility] [place] 05-15-2022 09:08-0500 Diastolic blood pressure 80 mm[Hg] Dr. Jose Luis Toledo Work Phone: [facility] 05-15-2022 09:08-0500 Systolic blood pressure 121 mm[Hg] Dr. Jose Luis Toledo Work Phone: [facility] 05-12-2022 10:07-0500 Body temperature 97 [degF] Jose Luis Toledo DO Work Phone: [facility] 05-12-2022 10:07-0500 Body weight 88.91 kg Jose Luis Toledo DO Work Phone: [facility] 05-12-2022 10:07-0500 Diastolic blood pressure 80 mm[Hg] Jose Luis Toledo DO Work Phone: [facility] 05-12-2022 10:07-0500 Heart rate 64 /min Jose Luis Jonesrison DO Work Phone: [facility] 05-12-2022 10:07-0500 Respiratory rate 16 /min Jose Luis Toledo DO Work Phone: [facility] 05-12-2022 10:07-0500 Systolic blood pressure 120 mm[Hg] Jose Luis Toledo DO Work Phone: [facility] 03-13-2022 08:54-0500 Body height 152.[address] Jose Luis Toledo Work Phone: [facility] [place] Work Phone: 03-13-2022 08:52-0500 Body mass index (BMI) [Ratio] 37.3 kg/m2 Dr. Jose Luis Toledo Work Phone: [facility] [place] 03-13-2022 08:52-0500 Body weight 86.[address] Jose Luis Toledo Work Phone: [facility] [place] 03-13-2022 08:52-0500 Diastolic blood pressure 83 mm[Hg] Dr. Jose Luis Toledo Work Phone: [facility] [place] 03-13-2022 08:52-0500 Systolic blood pressure 118 mm[Hg] Dr. Jose Luis Toledo Work Phone: [facility] [place] 02-27-2022 11:58-0400 Body temperature 98.01 [degF] Dee Mark 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 Work Phone: [facility] 02-27-2022 11:58-0400 Body weight 86.64 kg Dee Mark 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 Work Phone: [facility] 02-27-2022 11:58-0400 Diastolic blood pressure 84 mm[Hg] Dee Mark 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 Work Phone: [facility] 02-27-2022 11:58-0400 Heart rate 77 /min Dee Mark 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 Work Phone: [facility] 02-27-2022 11:58-0400 Respiratory rate 16 /min Dee Mark 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 Work Phone: [facility] 02-27-2022 11:58-0400 SaO2% (BldA) [Mass fraction] 100 % Dee Mark 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 Work Phone: [facility] 02-27-2022 11:58-0400 Systolic blood pressure 128 mm[Hg] Dee Mark 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 Work Phone: [facility] 02-05-2022 15:10-0400 Body weight 87.09 kg Jose Luis Toledo DO Work Phone: [facility] 02-05-2022 15:10-0400 Diastolic blood pressure 80 mm[Hg] Jose Luis Jonesrison DO Work Phone: [facility] 02-05-2022 15:10-0400 Heart rate 82 /min Jose Luis Jonesrison DO Work Phone: [facility] 02-05-2022 15:10-0400 Respiratory rate 16 /min Jose Luis Toledo DO Work Phone: [facility] 02-05-2022 15:10-0400 Systolic blood pressure 126 mm[Hg] Jose Luis Toledo DO Work Phone: [facility] 02-04-2022 14:52-0400 Body mass index (BMI) [Ratio] 37.9 kg/m2 Dr. Jose Luis Toledo Work Phone: 9(807)382-221189 [place] [address] 02-04-2022 14:52-0400 Body weight 88.[address] Jose Luis Toledo Work Phone: 9(901)051-167489 [place] [address] 02-04-2022 14:52-0400 Diastolic blood pressure 84 mm[Hg] Dr. Jose Luis Toledo Work Phone: 7(212)727-863389 [place] [address] 02-04-2022 14:52-0400 Systolic blood pressure 120 mm[Hg] Dr. Jose Luis Toledo Work Phone: 8(754)044-578289 [place] [address] 01-30-2022 09:30-0400 Heart rate 73 /min Dr. Jose Luis Toledo Work Phone: 3(018)463-311989 [place] [address] 01-30-2022 09:30-0400 Respiratory rate 16 /min Dr. Jose Luis Toledo Work Phone: 1(340)457-338689 [place] [address] 01-30-2022 08:22-0400 Body temperature 97.9 [degF] Dr. Jose Luis Toledo Work Phone: 5(852)984-791589 [place] [address] 01-30-2022 08:22-0400 Diastolic blood pressure 111 mm[Hg] Dr. Jose Luis Toledo Work Phone: 0(344)093-433989 [place] [address] 01-30-2022 08:22-0400 SaO2% (BldA) [Mass fraction] 100 % Dr. Jose Luis Toledo Work Phone: 8(676)653-635889 [place] [address] 01-30-2022 08:22-0400 Systolic blood pressure 161 mm[Hg] Dr. Jose Luis Toledo Work Phone: 2(557)663-751089 [place] [address] 01-30-2022 07:58-0400 Body height 152.[address] Jose Luis Toledo Work Phone: [facility] [place] Work Phone: 01-30-2022 07:58-0400 Body mass index (BMI) [Ratio] 38.2 kg/m2 Dr. Jose Luis Toledo Work Phone: [facility] [place] 01-30-2022 07:58-0400 Body weight 88.[address] Jose Luis Toledo Work Phone: [facility] [place] 01-27-2022 16:00-0400 Diastolic blood pressure 74 mm[Hg] Deon Camacho MD Work Phone: [facility] 01-27-2022 16:00-0400 Heart rate 72 /min Deon Camacho MD Work Phone: [facility] 01-27-2022 16:00-0400 Respiratory rate 16 /min Deon Camacho MD Work Phone: [facility] 01-27-2022 16:00-0400 SaO2% (BldA) [Mass fraction] 97 % Deon Camacho MD Work Phone: [facility] 01-27-2022 16:00-0400 Systolic blood pressure 124 mm[Hg] Deon Camacho MD Work Phone: [facility] 01-27-2022 14:12-0400 Body temperature 96.8 [degF] Deon Camacho MD Work Phone: [facility] 01-27-2022 10:55-0400 Body height 152.4 cm Deon Camacho MD Work Phone: [facility] 01-27-2022 10:55-0400 Body mass index (BMI) [Ratio] 36.72 kg/m2 Deon Camacho MD Work Phone: [facility] 01-27-2022 10:55-0400 Body weight 85.28 kg Deon Camacho MD Work Phone: [facility] 01-22-2022 09:24-0400 Body height 152.4 cm Deon Camacho MD Work Phone: [facility] 01-22-2022 09:24-0400 Body mass index (BMI) [Ratio] 36.72 kg/m2 Deon Camacho MD Work Phone: [facility] 01-22-2022 09:24-0400 Body weight 85.28 kg Deon Camacho MD Work Phone: [facility] 01-16-2022 11:35-0400 Body weight 87.73 kg Dee Mark 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 Work Phone: [facility] 01-16-2022 11:35-0400 Diastolic blood pressure 84 mm[Hg] Dee Mark 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 Work Phone: [facility] 01-16-2022 11:35-0400 Heart rate 86 /min Dee Mark 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 Work Phone: [facility] 01-16-2022 11:35-0400 Respiratory rate 16 /min Dee Mark 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 Work Phone: [facility] 01-16-2022 11:35-0400 SaO2% (BldA) [Mass fraction] 100 % Dee Mark 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 Work Phone: [facility] 01-16-2022 11:35-0400 Systolic blood pressure 122 mm[Hg] Dee Mark 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 Work Phone: [facility] 11-04-2021 13:08-0400 Body weight 88.63 kg Brandi Rasmussen 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 Work Phone: [facility] 11-04-2021 08:59-0400 Body height 152.[address] Jose Luis Toledo Work Phone: [facility] [place] Work Phone: 11-04-2021 08:59-0400 Body mass index (BMI) [Ratio] 38.3 kg/m2 Dr. Jose Luis Toledo Work Phone: [facility] [place] Work Phone: 11-04-2021 08:59-0400 Body temperature 97.8 [degF] Dr. Jose Luis Toledo Work Phone: [facility] [place] Work Phone: 11-04-2021 08:59-0400 Body weight 89.[address] Jose Luis Toledo Work Phone: [facility] [place] Work Phone: 11-04-2021 08:59-0400 Diastolic blood pressure 84 mm[Hg] Dr. Jose Luis Toledo Work Phone: [facility] [place] Work Phone: 11-04-2021 08:59-0400 Heart rate 71 /min Dr. Jose Luis Toledo Work Phone: [facility] [place] Work Phone: 11-04-2021 08:59-0400 Respiratory rate 16 /min Dr. Jose Luis Toledo Work Phone: [facility] [place] Work Phone: 11-04-2021 08:59-0400 SaO2% (BldA) [Mass fraction] 96 % Dr. Jose Luis Toledo Work Phone: [facility] [place] Work Phone: 11-04-2021 08:59-0400 Systolic blood pressure 130 mm[Hg] Dr. Jose Luis Toledo Work Phone: [facility] [place] Work Phone: 11-04-2021 08:55-0400 Body mass index (BMI) [Ratio] 38.1 kg/m2 Dr. Jose Luis Toledo Work Phone: [facility] [place] Work Phone: 11-04-2021 08:55-0400 Body weight 88.[address] Jose Luis Toledo Work Phone: [facility] [place] Work Phone: 11-04-2021 08:55-0400 Diastolic blood pressure 70 mm[Hg] Dr. Jose Luis Toledo Work Phone: [facility] [place] Work Phone: 11-04-2021 08:55-0400 Systolic blood pressure 108 mm[Hg] Dr. Jose Luis Toledo Work Phone: [facility] [place] Work Phone: 10-03-2021 11:37-0400 Body weight 90.45 kg Dee Mark 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 Work Phone: [facility] 10-03-2021 11:37-0400 Diastolic blood pressure 86 mm[Hg] Dee Mark 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 Work Phone: [facility] 10-03-2021 11:37-0400 Heart rate 74 /min Dee Mark 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 Work Phone: [facility] 10-03-2021 11:37-0400 Respiratory rate 16 /min Dee Mark 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 Work Phone: [facility] 10-03-2021 11:37-0400 SaO2% (BldA) [Mass fraction] 100 % Dee Mark 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 Work Phone: [facility] 10-03-2021 11:37-0400 Systolic blood pressure 122 mm[Hg] Dee Mark 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 Work Phone: [facility] 10-01-2021 09:16-0400 Diastolic blood pressure 80 mm[Hg] Dr. Jose Luis Toledo Work Phone: [facility] [place] Work Phone: 10-01-2021 09:16-0400 Systolic blood pressure 126 mm[Hg] Dr. Jose Luis Toledo Work Phone: [facility] [place] Work Phone: 10-01-2021 09:16-0400 Diastolic blood pressure 80 mm[Hg] Dr. Jose Luis Toledo Work Phone: [facility] [place] Work Phone: 10-01-2021 09:16-0400 Systolic blood pressure 126 mm[Hg] Dr. Jose Luis Toledo Work Phone: [facility] [place] Work Phone: 10-01-2021 09:13-0400 Body mass index (BMI) [Ratio] 39 kg/m2 Dr. Jose Luis Toledo Work Phone: [facility] [place] Work Phone: 10-01-2021 09:13-0400 Body weight 90.[address] Jose Luis Toledo Work Phone: [facility] [place] Work Phone: 10-01-2021 09:13-0400 Body height 152.[address] Jose Luis Toledo Work Phone: [facility] [place] Work Phone: 10-01-2021 09:13-0400 Body mass index (BMI) [Ratio] 39 kg/m2 Dr. Jose Luis Toledo Work Phone: [facility] [place] Work Phone: 10-01-2021 09:13-0400 Body weight 90.[address] Jose Luis Toledo Work Phone: [facility] [place] Work Phone: 09-26-2021 07:54-0400 Body mass index (BMI) [Ratio] 39.4 kg/m2 Dr. Jose Luis Toledo Work Phone: [facility] [place] Work Phone: 09-26-2021 07:54-0400 Body temperature 98.6 [degF] Dr. Jose Luis Toledo Work Phone: [facility] [place] Work Phone: 09-26-2021 07:54-0400 Body weight 91.[address] Jose Luis Toledo Work Phone: [facility] [place] Work Phone: 09-26-2021 07:54-0400 Diastolic blood pressure 80 mm[Hg] Dr. Jose Luis Toledo Work Phone: [facility] [place] Work Phone: 09-26-2021 07:54-0400 Heart rate 83 /min Dr. Jose Luis Toledo Work Phone: [facility] [place] Work Phone: 09-26-2021 07:54-0400 Respiratory rate 16 /min Dr. Jose Luis Toledo Work Phone: [facility] [place] Work Phone: 09-26-2021 07:54-0400 SaO2% (BldA) [Mass fraction] 98 % Dr. Jose Luis Toledo Work Phone: [facility] [place] Work Phone: 09-26-2021 07:54-0400 Systolic blood pressure 126 mm[Hg] Dr. Jose Luis Toledo Work Phone: [facility] [place] Work Phone: 09-26-2021 07:54-0400 Body height 152.[address] Jose Luis Toledo Work Phone: [facility] [place] Work Phone: 09-26-2021 07:54-0400 Body mass index (BMI) [Ratio] 39.4 kg/m2 Dr. Jose Luis Toledo Work Phone: [facility] [place] Work Phone: 09-26-2021 07:54-0400 Body temperature 98.6 [degF] Dr. Jose Luis Toledo Work Phone: [facility] [place] Work Phone: 09-26-2021 07:54-0400 Body weight 91.[address] Jose Luis Toledo Work Phone: [facility] [place] Work Phone: 09-26-2021 07:54-0400 Diastolic blood pressure 80 mm[Hg] Dr. Jose Luis Toledo Work Phone: [facility] [place] Work Phone: 09-26-2021 07:54-0400 Heart rate 83 /min Dr. Jose Luis Toledo Work Phone: [facility] [place] Work Phone: 09-26-2021 07:54-0400 Respiratory rate 16 /min Dr. Jose Luis Toledo Work Phone: [facility] [place] Work Phone: 09-26-2021 07:54-0400 SaO2% (BldA) [Mass fraction] 98 % Dr. Jose Luis Toledo Work Phone: [facility] [place] Work Phone: 09-26-2021 07:54-0400 Systolic blood pressure 126 mm[Hg] Dr. Jose Luis Toledo Work Phone: [facility] [place] Work Phone: 08-19-2021 15:25-0400 Body mass index (BMI) [Ratio] 39.4 kg/m2 Dr. Jose Luis Toledo Work Phone: [facility] [place] Work Phone: 08-19-2021 15:25-0400 Body weight 91.[address] Jose Luis Toledo Work Phone: [facility] [place] Work Phone: 08-19-2021 15:25-0400 Diastolic blood pressure 80 mm[Hg] Dr. Jose Luis Toledo Work Phone: [facility] [place] Work Phone: 08-19-2021 15:25-0400 Systolic blood pressure 106 mm[Hg] Dr. Jose Luis Toledo Work Phone: [facility] [place] Work Phone: 08-19-2021 15:25-0400 Body height 152.[address] Jose Luis Toledo Work Phone: [facility] [place] Work Phone: 08-19-2021 15:25-0400 Body mass index (BMI) [Ratio] 39.4 kg/m2 Dr. Jose Luis Toledo Work Phone: [facility] [place] Work Phone: 08-19-2021 15:25-0400 Body weight 91.[address] Jose Luis Toledo Work Phone: [facility] [place] Work Phone: 08-19-2021 15:25-0400 Diastolic blood pressure 80 mm[Hg] Dr. Jose Luis Toledo Work Phone: [facility] [place] Work Phone: 08-19-2021 15:25-0400 Systolic blood pressure 106 mm[Hg] Dr. Jose Luis Toledo Work Phone: [facility] [place] Work Phone: 08-15-2021 10:34-0400 Body weight 92.[address] Jose Luis Toledo Work Phone: [facility] [place] Work Phone: 08-15-2021 10:34-0400 Diastolic blood pressure 20 mm[Hg] Dr. Jose Luis Toledo Work Phone: [facility] [place] Work Phone: 08-15-2021 10:34-0400 Heart rate 101 /min Dr. Jose Luis Toledo Work Phone: [facility] [place] Work Phone: 08-15-2021 10:34-0400 Respiratory rate 16 /min Dr. Jose Luis Toledo Work Phone: [facility] [place] Work Phone: 08-15-2021 10:34-0400 SaO2% (BldA) [Mass fraction] 97 % Dr. Jose Luis Toledo Work Phone: [facility] [place] Work Phone: 08-15-2021 10:34-0400 Systolic blood pressure 110 mm[Hg] Dr. Jose Luis Toledo Work Phone: [facility] [place] Work Phone: 08-15-2021 10:34-0400 Body weight 92.[address] Jose Luis Toledo Work Phone: [facility] [place] Work Phone: 08-15-2021 10:34-0400 Diastolic blood pressure 20 mm[Hg] Dr. Jose Luis Toledo Work Phone: [facility] [place] Work Phone: 08-15-2021 10:34-0400 Heart rate 101 /min Dr. Jose Luis Toledo Work Phone: [facility] [place] Work Phone: 08-15-2021 10:34-0400 Respiratory rate 16 /min Dr. Jose Luis Toledo Work Phone: [facility] [place] Work Phone: 08-15-2021 10:34-0400 SaO2% (BldA) [Mass fraction] 97 % Dr. Jose Luis Toledo Work Phone: [facility] [place] Work Phone: 08-15-2021 10:34-0400 Systolic blood pressure 110 mm[Hg] Dr. Jose Luis Toledo Work Phone: [facility] [place] Work Phone: 08-15-2021 10:16-0400 Body height 152.[address] Jose Luis Toledo Work Phone: [facility] [place] Work Phone: 08-12-2021 09:05-0400 Body weight 92.08 kg Dee Mark 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 Work Phone: [facility] 08-12-2021 09:05-0400 Diastolic blood pressure 82 mm[Hg] Dee Mark 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 Work Phone: [facility] 08-12-2021 09:05-0400 Heart rate 80 /min Dee Mark 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 Work Phone: [facility] 08-12-2021 09:05-0400 Respiratory rate 16 /min Dee Mark 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 Work Phone: [facility] 08-12-2021 09:05-0400 Systolic blood pressure 124 mm[Hg] Dee Flores [employer] Work Phone: [facility] 07-30-2021 19:00-0400 Body temperature 97.2 [degF] Dr. Jose Luis Toledo Work Phone: [facility] [place] Work Phone: 07-30-2021 19:00-0400 Diastolic blood pressure 60 mm[Hg] Dr. Jose Luis Toledo Work Phone: [facility] [place] Work Phone: 07-30-2021 19:00-0400 Heart rate 72 /min Dr. Jose Luis Toledo Work Phone: [facility] [place] Work Phone: 07-30-2021 19:00-0400 Respiratory rate 16 /min Dr. Jose Luis Toledo Work Phone: [facility] [place] Work Phone: 07-30-2021 19:00-0400 SaO2% (BldA) [Mass fraction] 92 % Dr. Jose Luis Toledo Work Phone: [facility] [place] Work Phone: 07-30-2021 19:00-0400 Systolic blood pressure 104 mm[Hg] Dr. Jose Luis Toledo Work Phone: [facility] [place] Work Phone: 07-30-2021 17:30-0400 Inhaled oxygen flow rate 2 L/min Dr. Jose Luis Toledo Work Phone: [facility] [place] Work Phone: 07-30-2021 12:13-0400 Body height 152.[address] Jose Luis Toledo Work Phone: [facility] [place] Work Phone: 07-30-2021 12:13-0400 Body mass index (BMI) [Ratio] 39.7 kg/m2 Dr. Jose Luis Toledo Work Phone: [facility] [place] Work Phone: 07-30-2021 12:13-0400 Body weight 92.[address] Jose Luis Toledo Work Phone: [facility] [place] Work Phone: 07-30-2021 09:15-0400 Body mass index (BMI) [Ratio] 40 kg/m2 Dr. Jose Luis Toledo Work Phone: [facility] [place] Work Phone: 07-30-2021 09:15-0400 Body temperature 98.4 [degF] Dr. Jose Luis Toledo Work Phone: [facility] [place] Work Phone: 07-30-2021 09:15-0400 Body weight 92.[address] Jose Luis Toledo Work Phone: [facility] [place] Work Phone: 07-30-2021 09:15-0400 Diastolic blood pressure 77 mm[Hg] Dr. Jose Luis Toledo Work Phone: [facility] [place] Work Phone: 07-30-2021 09:15-0400 Heart rate 83 /min Dr. Jose Luis Toledo Work Phone: [facility] [place] Work Phone: 07-30-2021 09:15-0400 Respiratory rate 18 /min Dr. Jose Luis Toledo Work Phone: [facility] [place] Work Phone: 07-30-2021 09:15-0400 SaO2% (BldA) [Mass fraction] 99 % Dr. Jose Luis Toledo Work Phone: [facility] [place] Work Phone: 07-30-2021 09:15-0400 Systolic blood pressure 115 mm[Hg] Dr. Jose Luis Toledo Work Phone: [facility] [place] Work Phone: 07-30-2021 09:15-0400 Body mass index (BMI) [Ratio] 40 kg/m2 Dr. Jose Luis Toledo Work Phone: [facility] [place] Work Phone: 07-30-2021 09:15-0400 Body temperature 98.4 [degF] Dr. Jose Luis Toledo Work Phone: [facility] [place] Work Phone: 07-30-2021 09:15-0400 Body weight 92.[address] Jose Luis Toledo Work Phone: [facility] [place] Work Phone: 07-30-2021 09:15-0400 Diastolic blood pressure 77 mm[Hg] Dr. Jose Luis Toledo Work Phone: [facility] [place] Work Phone: 07-30-2021 09:15-0400 Heart rate 83 /min Dr. Jose Luis Toledo Work Phone: [facility] [place] Work Phone: 07-30-2021 09:15-0400 Respiratory rate 18 /min Dr. Jose Luis Toledo Work Phone: [facility] [place] Work Phone: 07-30-2021 09:15-0400 SaO2% (BldA) [Mass fraction] 99 % Dr. Jose Luis Toledo Work Phone: [facility] [place] Work Phone: 07-30-2021 09:15-0400 Systolic blood pressure 115 mm[Hg] Dr. Jose Luis Toledo Work Phone: [facility] [place] Work Phone: 07-25-2021 15:45-0400 Body mass index (BMI) [Ratio] 40 kg/m2 Dr. Jose Luis Toledo Work Phone: [facility] [place] Work Phone: 07-25-2021 15:45-0400 Body weight 92.[address] Jose Luis Toledo Work Phone: [facility] [place] Work Phone: 07-25-2021 15:45-0400 Diastolic blood pressure 74 mm[Hg] Dr. Jose Luis Toledo Work Phone: [facility] [place] Work Phone: 07-25-2021 15:45-0400 Systolic blood pressure 104 mm[Hg] Dr. Jose Luis Toledo Work Phone: [facility] [place] Work Phone: 07-25-2021 15:45-0400 Body mass index (BMI) [Ratio] 40 kg/m2 Dr. Jose Luis Toledo Work Phone: [facility] [place] Work Phone: 07-25-2021 15:45-0400 Body weight 92.[address] Jose Luis Toledo Work Phone: [facility] [place] Work Phone: 07-25-2021 15:45-0400 Diastolic blood pressure 74 mm[Hg] Dr. Jose Luis Toledo Work Phone: [facility] [place] Work Phone: 07-25-2021 15:45-0400 Systolic blood pressure 104 mm[Hg] Dr. Jose Luis Toledo Work Phone: [facility] [place] Work Phone: 07-09-2021 09:25-0400 Body height 152.[address] Jose Luis Toledo Work [facility]: [facility] [facility] [place] Work Phone: 07-09-2021 09:25-0400 Body mass index (BMI) [Ratio] 40.8 kg/m2 Dr. Jose Luis Toledo Work Phone: [facility] [place] Work Phone: 07-09-2021 09:25-0400 Body weight 94.[address] Jose Luis Toledo Work Phone: [facility] [place] Work Phone: 07-09-2021 09:25-0400 Diastolic blood pressure 78 mm[Hg] Dr. Jose Luis Toledo Work Phone: [facility] [place] Work Phone: 07-09-2021 09:25-0400 Systolic blood pressure 126 mm[Hg] Dr. Jose Luis Toledo Work Phone: [facility] [place] Work Phone: 06-05-2021 09:59-0500 Body temperature 97.3 [degF] Dr. Jose Luis Toledo Work Phone: [facility] [place] Work Phone: 06-05-2021 09:59-0500 Diastolic blood pressure 76 mm[Hg] Dr. Jose Luis Toledo Work Phone: [facility] [place] Work Phone: 06-05-2021 09:59-0500 Heart rate 88 /min Dr. Jose Luis Toledo Work Phone: [facility] [place] Work Phone: 06-05-2021 09:59-0500 Respiratory rate 16 /min Dr. Jose Luis Toledo Work Phone: [facility] [place] Work Phone: 06-05-2021 09:59-0500 SaO2% (BldA) [Mass fraction] 99 % Dr. Jose Luis Toledo Work Phone: [facility] [place] Work Phone: 06-05-2021 09:59-0500 Systolic blood pressure 124 mm[Hg] Dr. Jose Luis Toledo Work Phone: [facility] [place] Work Phone: Encounters Encounter Date Encounter Type Care Provider Facility Start: 01-25-2025 ambulatory Juvencio Westfall y:[facility] [place] Start: 01-09-2025 End: 01-09-2025 Telephone encounter Jose Luis Toledo DO Work Phone: [facility] [place] Start: 01-06-2025 End: 01-06-2025 ambulatory JOSE LUIS Aguilar:[facility] Start: 01-06-2025 End: 01-06-2025 Patient encounter procedure Jose Luis Toledo DO Work Phone: [facility] [place] Comment on above: Myalgia (Primary Dx) ; Obesity, Class II, BMI 35-39.9; IFG (impaired fasting glucose); Ptosis, left eyelid; Fatigue, unspecified type; Dyslipidemia; Infected sebaceous cyst; Situational insomnia; PRASHANTH (generalized anxiety disorder); Situational anxiety Start: 01-06-2025 End: 01-06-2025 ambulatory JOSE LUIS TOLEDO Facility:[facility] Start: 01-05-2025 End: 01-05-[address] Juvencio Oneal MD -[facility] Work Phone: Start: 01-05-2025 End: 01-05-[address] Jose Luis Toledo DO Work Phone: -[facility] Start: 01-05-2025 End: 01-05-2025 ambulatory Juvencio Oneal Facility:[facility] [place] Start: 12-22-2024 End: 12-22-[address] Jose Luis Toledo DO Work Phone: -[facility] Start: 12-22-2024 End: 12-22-2024 Patient encounter procedure Beth MORALES -[facility] Start: 12-22-2024 End: 12-22-2024 Patient encounter procedure Beth MORALES -[facility] Work Phone: Start: 12-22-2024 End: 12-22-2024 Patient encounter status Beth MORALES [facility] Start: 12-22-2024 End: 12-22-[address] Jose Luis Toledo DO Work Phone: -[facility] Start: 12-21-2024 End: 12-21-2024 Patient encounter procedure Xi Zheng [facility] Work Phone: Start: 12-21-2024 End: 12-22-[address] Jose Luis Toledo DO Work Phone: -[facility] Start: 10-06-2024 End: 10-06-2024 Office outpatient visit 25 minutes 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 APRN.CNP Work Phone: [facility] Comment on above: Migraine without aur a, intractable, without status migrainosus (Primary Dx); Obesity, Class II, BMI 35-39.9; Anxiety disorder, unspecified type; PRASHANTH (generalized anxiety disorder); Situational anxiety; IFG (impaired fasting glucose); Insulin resistance Start: 10-06-2024 End: 10-06-2024 ambulatory SELF Facility:[facility] Start: 08-22-2024 End: 08-23-2024 Refill Jose Luis Toledo DO Work Phone: [facility] Comment on above: Refill Request Start: 08-10-2024 End: 08-11-2024 Follow-up encounter Jose Luis Toledo DO Work Phone: [facility] Start: 07-28-2024 End: 07-28-2024 ambulatory JOSE LUIS TOLEDO Facility:[facility] Start: 07-28-2024 End: 07-28-2024 Subsequent hospital visit by physician [facility] ([facility]) Work Phone: [facility] Comment on above: SOB (shortness of br eath) [R06.02] Start: 07-25-2024 End: 07-25-[address] Jose Luis Toledo DO Work Phone: [facility] [place] Work Phone: Start: 07-25-2024 End: 07-25-[address] Jose Luis Toledo DO -Outpatient [facility] Work Phone: Start: 07-25-2024 End: 07-25-2024 ambulatory Jose Luis Toledo Facility:[facility] [place] Start: 07-12-2024 End: 07-13-2024 Telephone encounter Jose Luis Toledo DO Work Phone: [facility] Comment on above: Patient Update; Laura ent Question Start: 07-11-2024 End: 07-12-2024 ambulatory Jose Luis L Toledo DO Work Phone: [facility] [place] Comment on above: Low kidney function due to pneumonia? Start: 07-08-2024 End: 09-07-2024 Follow-up encounter Dee Flores APRN.CNP Work Phone: [facility] [place] Start: 07-07-2024 End: 09-06-2024 Follow-up encounter Dee Flores APRN.CNP Work Phone: [facility] [place] Start: 07-07-2024 End: 07-07-2024 ambulatory JOSE LUIS L TOLEDO Facility:[facility] Start: 07-07-2024 End: 07-07-2024 Office outpatient visit 25 minutes Dee Flores APRN.CNP Work Phone: [facility] Comment on above: Nausea (Primary Dx); SOB (shortness of breath); Wheeze; Bilateral flank pain Start: 07-07-2024 End: 07-07-2024 ambulatory JOSE LUIS L TOLEDO Facility:[facility] Start: 07-07-2024 End: 07-07-2024 Subsequent hospital visit by physician Jose Luis [facility] [place] Work Phone: Radiology Comment on above: Rhonchi at both lung bases [R09.89] Start: 07-05-2024 End: 07-05-2024 ambulatory JOSE LUIS L TOLEDO Facility:[facility] Start: 07-05-2024 End: 07-05-2024 Patient encounter procedure Jose Luis L Toledo DO Work Phone: [facility] Comment on above: Rhonchi at both lung bases (Primary Dx); Impaired concentration; Anxiety disorder, unspecified type; PRASHANTH (generalized anxiety disorder); Situational anxiety; Obesity, Class II, BMI 35-39.9; Encounter for screening mammogram for malignant neoplasm of breast; Community acquired pneumonia, unspecified laterality; SOB (shortness of breath); Wheeze Start: 07-02-2024 End: 07-04-2024 Refill Dee Flores APRN.CNP Work Phone: [facility] Comment on above: Med Change Request Start: 07-01-2024 End: 07-01-2024 Follow-up encounter Dee Flores APRN.CNP Work Phone: [facility] Comment on above: Influenza A (Primary Dx) Start: 06-30-2024 End: 08-30-2024 Follow-up encounter Dee Flores APRN.CNP Work Phone: [facility] Start: 06-30-2024 End: 06-30-2024 Telephone encounter Dee Flores APRN.CNP Work Phone: [facility] Comment on above: needs another diagno sis for nebulizer Start: 06-30-2024 End: 06-30-2024 Subsequent hospital visit by physician Xr [facility] [place] Work Phone: Radiology Comment on above: SOB (shortness of br eath) [R06.02] Start: 06-30-2024 End: 06-30-2024 ambulatory JOSE LUIS L TOLEDO Facility:[facility] Start: 06-30-2024 End: 06-30-2024 Office outpatient visit 25 minutes Dee Flores APRN.[employer] Work Phone: [facility] Comment on above: SOB (shortness of br eath) (Primary Dx); Wheeze; Acute cough; Fever, unspecified fever cause; Aches; Chills; Other chest pain; Urinary frequency Start: 06-28-2024 End: 06-28-2024 ambulatory JOSE LUIS L TOLEDO Facility:[facility] Start: 06-28-2024 End: 06-28-2024 Office outpatient visit 15 minutes Demetris Bradford APRN.[employer] Work Phone: [facility] Comment on above: Bronchitis (Primary Dx); Viral URI with cough Start: 06-07-2024 End: 07-08-2024 ambulatory Jose Luis L Toledo DO Work Phone: [facility] [place] Start: 05-05-2024 End: 05-05-2024 Office outpatient visit 25 minutes 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 APRN.CNP Work Phone: [facility] Comment on above: Acute pain of right shoulder (Primary Dx) Start: 05-05-2024 End: 05-05-2024 ambulatory BRANDI QUINTEROS Facility:[facility] Start: 04-11-2024 End: 04-11-2024 Telephone encounter Jose Luis Lim Toledo DO Work Phone: [facility] [place] Comment on above: Results Start: 04-07-2024 End: 04-08-2024 Telephone encounter 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 Work Phone: [facility] [place] Comment on above: Results Opened In Error Start: 04-05-2024 End: 04-05-2024 ambulatory JOSE LUIS L TOLEDO Facility:[facility] Start: 04-05-2024 End: 04-05-2024 ambulatory JOSE LUIS L TOLEDO Facility:[facility] Start: 04-05-2024 End: 04-05-2024 Subsequent hospital visit by physician [facility] Work Phone: Radiology Comment on above: Hypothyroidism, acqu ired [E03.9] Start: 04-04-2024 End: 04-04-2024 ambulatory JOSE LUIS L TOLEDO Facility:[facility] Start: 04-04-2024 End: 04-04-2024 Patient encounter procedure Jose Luis L Toledo DO Work Phone: [facility] Comment on above: Hypothyroidism, acqu ired (Primary Dx); Impaired concentration; Anxiety disorder, unspecified type; PRASHANTH (generalized anxiety disorder); Situational anxiety; Obesity, Class II, BMI 35-39.9; Other migraine without status migrainosus, not intractable; Vitamin B12 deficiency; IFG (impaired fasting glucose); Thyroid nodule; Dyslipidemia; Dysmetabolic syndrome; Vitamin D deficiency; Hyperinsulinemia; ORTEZ (dyspnea on exertion) Start: 02-14-2024 End: 02-15-2024 Refill Dee Flores 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 Work Phone: [facility] Comment on above: Med Change Request Start: 02-09-2024 End: 02-09-2024 Telephone encounter Jose Luis L Toledo DO Work Phone: [facility] Start: 02-08-2024 End: 02-08-2024 ambulatory [facility] Facility:[facility] [place] Start: 01-14-2024 End: 01-14-2024 ambulatory Jose Luis Toledo DO Work Phone: Family [facility] [place] Comment on above: LDN medication Start: 01-14-2024 End: 01-19-2024 Telephone encounter Jose Luis Toledo DO Work Phone: [facility] [place] Comment on above: Patient Question Start: 01-14-2024 End: 01-14-2024 Subsequent hospital visit by physician Priti [facility] (I-Stat) Work Phone: Cat Scan Comment on above: Endometriosis [N80.9 ] Start: 01-12-2024 End: 01-12-2024 Refill Dee Flores APRN.JOI Work Phone: [facility] Comment on above: Refill Request Medication Problem Start: 01-04-2024 End: 01-04-2024 Patient encounter procedure Jose Luis Toledo DO Work Phone: [facility] Comment on above: Anxiety disorder, un specified type (Primary Dx); Vitamin B12 deficiency; Impaired concentration; Obesity, Class II, BMI 35-39.9; Endometriosis; Right lower quadrant abdominal pain Start: 11-26-2023 End: 11-26-2023 Office outpatient visit 25 minutes Dee Flores APRN.[employer] Work Phone: [facility] Comment on above: Impaired concentrati on (Primary Dx); Anxiety disorder, unspecified type; PRASHANTH (generalized anxiety disorder); Arthralgia, unspecified joint; Myalgia; Situational anxiety Start: 11-17-2023 Telephone encounter Jose Luis hanna DO Work Phone: [facility] Comment on above: Patient Question Start: 11-16-2023 ambulatory Jose Luis Manjarrez irvin DO Work Phone: [facility] Comment on above: You said to message 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 Refill Request Start: 11-12-2023 Telephone encounter Jose Luis Raphael hanna DO Work Phone: [facility] [place] Start: 11-11-2023 ambulatory Dee William akhil 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 Work Phone: [facility] [place] Comment on above: Low dose naltrexone prescription from [place] Start: 11-11-2023 End: 02-05-2024 Telephone encounter Xochitl [facility] Comment on above: Appointment Start: 11-11-2023 End: 11-11-2023 Patient encounter procedure Naveen Mora MD Work Phone: Rheumatology Comment on above: Erythromelalgia (HCC ) (Primary Dx); Finger swelling; Family history of rheumatoid arthritis; Lichen sclerosus; Fibromyalgia Start: 10-06-2023 Refill Jose Luis bryan DO Work Phone: [facility] [place] Comment on above: Refill Request Start: 10-02-2023 Telephone encounter Perlita lopez 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 Work Phone: Urology Start: 10-01-2023 Telephone encounter Nelida pink 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 Work Phone: Urology Start: 09-29-2023 End: 09-29-2023 Patient encounter procedure Jose Luis Toledo DO Work Phone: [facility] [place] Comment on above: Vitamin B12 deficien cy (Primary Dx); Obesity, Class II, BMI 35-39.9; Impaired concentration; Anxiety disorder, unspecified type; Dermatofibroma; Finger swelling; Stiffness of hand joint, unspecified laterality Start: 09-29-2023 End: 09-29-2023 Subsequent hospital visit by physician [facility] (I-Stat) Work Phone: Cat Scan Comment on above: Calculus of kidney [ N20.0] Start: 09-22-2023 End: 09-22-2023 Subsequent hospital visit by physician Xr [facility] Work Phone: Radiology Comment on above: Right ureteral stone [N20.1] Start: 09-22-2023 End: 09-22-2023 Patient encounter procedure Nelida Irving 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 Work Phone: Urology Comment on above: Ureteral stone [N20. 1] (Primary Dx); Calculus of kidney; Acute cystitis without hematuria Start: 09-22-2023 End: 09-22-2023 ambulatory NELIDA IRVING Facility:[id number] Start: 09-17-2023 Telephone encounter Nelida pink 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 Work Phone: Urology Comment on above: Orders Start: 09-17-2023 End: 09-17-2023 Subsequent hospital visit by physician Xr [facility] Work Phone: Radiology Comment on above: Right ureteral stone [N20.1] Start: 08-31-2023 End: 08-31-[address] Jose Luis Toledo Work Phone: [facility] [place] Work Phone: Start: 08-31-2023 End: 08-31-[address] Jose Luis Toledo Work Phone: [facility] Work Phone: Start: 08-10-2023 Telephone encounter Dee Pollard APRN.[employer] Work Phone: [facility] Comment on above: Appointment Start: 08-10-2023 End: 08-10-2023 Subsequent hospital visit by physician Xr [facility] Work Phone: Radiology Comment on above: Obesity, Class II, B NH 35-39.9 [E66.9] Start: 08-10-2023 End: 08-10-2023 Patient encounter procedure Dee Flores APRN.[employer] Work Phone: [facility] Comment on above: Arthralgia, unspecif ied joint (Primary Dx); Myalgia; Toe swelling; Finger swelling; Chronic midline low back pain without sciatica; Acute midline thoracic back pain; Hypothyroidism, acquired; Family history of osteoarthritis; Pain in both hands; Family history of rheumatoid arthritis; Obesity, Class II, BMI 35-39.9 Start: 08-05-2023 Refill Jose Luis bryan DO Work Phone: [facility] Comment on above: Refill Request Start: 07-06-2023 End: 07-06-2023 Patient encounter procedure Jose Luis Raphael Tre DO Work Phone: [facility] Comment on above: Anxiety disorder, un specified type (Primary Dx); Obesity, Class II, BMI 35-39.9; Impaired concentration Start: 07-01-2023 ambulatory Jose Luis bryan DO Work Phone: Internal Medicine [facility] Start: 06-08-2023 Refill Jose Luis bryan DO Work Phone: [facility] Comment on above: Refill Request Start: 05-26-2023 End: 05-26-[address] Jose Luis Toledo Work Phone: [facility] [place] Work Phone: Start: 05-26-2023 End: 05-26-[address] Jose Luis Toledo Work Phone: [facility] [place]-Laboratory, Specimen Work Phone: Start: 05-26-2023 End: 05-26-[address] Jose Luis Toledo Work Phone: [facility] Work Phone: Start: 03-30-2023 Telephone encounter Nelida pink APRN.[employer] Work Phone: Urology Start: 03-26-2023 Telephone encounter Nelida pink APRN.[employer] Work Phone: Urology Comment on above: urine culture result s; Results Start: 03-24-2023 End: 03-24-2023 Patient encounter procedure Nelida Irving APRN.[employer] Work Phone: Urology Comment on above: Right ureteral stone (Primary Dx); Acute cystitis without hematuria; Right nephrolithiasis Start: 03-24-2023 End: 03-24-2023 ambulatory NELIDA IRVING Facility:[id number] Start: 03-11-2023 End: 03-11-2023 Subsequent hospital visit by physician [facility] Start: 03-11-2023 End: 03-11-2023 ambulatory XI BARAHONA Facility:[id number] Start: 03-10-2023 Patient encounter status Xr 1 [facility] Work Phone: Start: 03-03-2023 End: 03-03-2023 Patient encounter procedure Jose Luis Toledo DO Work Phone: [facility] Comment on above: Hypothyroidism, acqu ired (Primary Dx); Impaired concentration; Anxiety disorder, unspecified type; Dysmetabolic syndrome; Kidney stone; Obesity, Class II, BMI 35-39.9 Start: 02-27-2023 Telephone encounter Perlita lopez 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 Work Phone: Urology Comment on above: Patient Update Start: 02-24-2023 End: 02-24-2023 Emergency department patient visit [facility] [place]-Emergency Department Work Phone: Start: 02-19-2023 Refill Perlita Cunningham 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 Work Phone: Urology Comment on above: Refill Request Start: 02-18-2023 Telephone encounter Perlita lopez 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 Work Phone: Urology Comment on above: Results Start: 02-16-2023 End: 02-16-2023 Subsequent hospital visit by physician [facility] Work Phone: Radiology Comment on above: Right ureteral stone [N20.1] Start: 02-14-2023 End: 02-14-2023 Emergency department patient visit [facility] [place]-Emergency Department Work Phone: Start: 02-12-2023 End: 02-12-2023 Patient encounter procedure Alfredo Ortega 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 Work Phone: [facility] Comment on above: Procedure not alysia d out (Primary Dx) Start: 02-11-2023 Telephone encounter Vicky Crowley 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 Work Phone: Urology Comment on above: Results; Patient Upd ate Start: 02-09-2023 End: 02-09-2023 ambulatory VICKY CROWLEY Facility:[facility] Start: 02-09-2023 End: 02-09-2023 Patient encounter procedure Vicky Crowley 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 Work Phone: Urology Comment on above: Right ureteral stone (Primary Dx); Acute right flank pain; Gross hematuria; Kidney stone; Flank pain Start: 02-05-2023 ambulatory BRANDI RASMUSSEN Facilit y:[facility] Start: 02-05-2023 End: 02-05-2023 Subsequent hospital visit by physician [facility] Work Phone: [facility] Comment on above: Kidney stone [N20.0] Start: 02-02-2023 End: 02-02-2023 Patient encounter procedure 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 Work Phone: [facility] Comment on above: Gross hematuria (Yue musa Dx); Kidney stone; Impaired concentration; Flank pain Start: 01-29-2023 Refill Jose Luis bryan DO Work Phone: [facility] Comment on above: Refill Request Start: 12-29-2022 Refill Dee landaverde APRN.[employer] Work Phone: [facility] Comment on above: Refill Request Start: 12-02-2022 End: 12-02-2022 Patient encounter procedure Jose Luis Toledo DO Work Phone: [facility] Comment on above: Obesity, Class II, B NH 35-39.9 (Primary Dx); Impaired concentration; Anxiety disorder, unspecified type; Hypothyroidism, acquired Start: 10-24-2022 Refill Jose Luis bryan DO Work Phone: [facility] Comment on above: Refill Request Start: 10-13-2022 Telephone encounter Dee Pollard APRN.[employer] Work Phone: [address] [place] [address] Comment on above: FYI-No Action Needed Start: 08-28-2022 Refill Dee landaverde APRN.[employer] Work Phone: [facility] Comment on above: Refill Request Start: 08-19-2022 Refill Dee landaverde APRN.[employer] Work Phone: [facility] Comment on above: Med Change Request Start: 08-14-2022 End: 08-14-2022 Subsequent hospital visit by physician Xr [facility] Work Phone: Radiology Comment on above: Bronchitis [J40] Start: 08-14-2022 End: 08-14-2022 Patient encounter procedure Dee Flores APRN.[employer] Work Phone: [facility] Comment on above: Persistent cough (Pr imary Dx); Bronchitis; Hoarse; Vaginal lesion Start: 08-08-2022 Telephone encounter Nafisa Nicole APRN.[employer] Work Phone: [facility] Comment on above: Results Start: 08-07-2022 End: 08-07-2022 Subsequent hospital visit by physician Xr [facility] Work Phone: Radiology Comment on above: Acute cough [R05.1] Start: 08-07-2022 End: 08-07-2022 Patient encounter procedure Ry Chong APRN.[employer] Work Phone: [facility] Comment on above: Viral bronchitis (Pr imary Dx); Sore throat; Acute cough Start: 07-31-2022 End: 07-31-2022 Patient encounter procedure Dee Flores APRN.[employer] Work Phone: [facility] Comment on above: Obesity, Class III, BMI 40-49.9 (morbid obesity) ([facility]) (Primary Dx); Dyslipidemia; Hypothyroidism, acquired; Sacral pain; Chronic midline low back pain without sciatica Start: 07-23-2022 ambulatory Jose Luis bryan DO Work Phone: Internal Medicine [facility] Start: 07-03-2022 End: 07-03-[address] Jose Luis Toledo Work Phone: [facility] [place] Work Phone: Start: 07-03-2022 End: 07-03-[address] Jose Luis Toledo Work Phone: [facility] [place]-Outpatient Breast Imaging Start: 06-30-2022 End: 06-30-2022 Patient encounter procedure Jose Luis Toledo DO Work Phone: [facility] Comment on above: Right nephrolithiasi s (Primary Dx); Impaired concentration; Anxiety disorder, unspecified type; Obesity, Class II, BMI 35-39.9; Magnesium deficiency; Dermatofibroma; Chronic SI joint pain; Sclerosis of sacroiliac joint Start: 06-24-2022 End: 06-24-[address] Jose Luis Toledo Work Phone: [facility] [place]-Outpatient Pavilion Ultrasound Start: 06-17-2022 Refill Dee landaverde APRN.CNP Work Phone: [facility] Comment on above: Refill Request Start: 05-22-2022 End: 05-22-[address] Jose Luis Toledo Work Phone: [facility] [place] Work Phone: Start: 05-22-2022 End: 05-22-[address] Jose Luis Toledo Work Phone: [facility] [place]-Laboratory, OP Pavilion Start: 05-19-2022 Telephone encounter Brandi bryan 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 Work Phone: [facility] Comment on above: Patient Question Lab Orders Results Start: 05-19-2022 End: 05-19-2022 Subsequent hospital visit by physician [facility] [facility] Work Phone: Radiology Comment on above: Hair loss [L65.9] Acute right flank pa in [R10.9] Sacral pain [M53.3] Start: 05-15-2022 End: 05-15-[address] Jose Luis Toledo Work Phone: [facility] [place] Work Phone: Start: 05-15-2022 End: 05-15-[address] Jose Luis Toledo Work Phone: [facility] Start: 05-12-2022 End: 05-12-2022 Patient encounter procedure Jose Luis Toledo DO Work Phone: [facility] Comment on above: Acute right flank pa in (Primary Dx); History of renal stone; Hair loss; Thyroid nodule; Sacral pain; Chronic midline low back pain without sciatica; Impaired concentration; Adnexal cyst Start: 04-29-2022 End: 04-29-[address] Jose Luis Toledo Work Phone: [facility] [place] Work Phone: Start: 04-29-2022 End: 04-29-[address] Jose Luis Toledo Work Phone: [facility] [place] [facility], [facility] Start: 03-13-2022 End: 03-13-[address] Jose Luis Toledo Work Phone: [facility] Start: 03-03-2022 End: 03-03-2022 Subsequent hospital visit by physician [facility] Cat Scan Comment on above: Left lower quadrant abdominal pain [R10.32] Start: 02-27-2022 End: 02-27-2022 Patient encounter procedure Dee Flores APRN.CNP Work Phone: [facility] Comment on above: Abdominal pain, LLQ (Primary Dx); Hx of bilateral oophorectomy; Left lower quadrant abdominal pain; Bloody stool; Chronic midline low back pain without sciatica Start: 02-21-2022 ambulatory Jose Luis bryan DO Work Phone: [facility] [place] Start: 02-21-2022 Follow-up encounter Jose Luis hanna DO Work Phone: [facility] Comment on above: After surgery follow up Start: 02-05-2022 End: 02-05-2022 Patient encounter procedure Jose Luis Toledo DO Work Phone: [facility] [place] Comment on above: Premature menopause (Primary Dx); Surgical menopause; Neuritis; Acute midline low back pain without sciatica Start: 02-04-2022 End: 02-04-[address] Jose Luis Toledo Work Phone: [facility] Start: 01-30-2022 End: 01-30-2022 Emergency department patient visit Dr. Jose Luis Toledo Work Phone: [facility] [place]-Emergency Department Start: 01-27-2022 End: 01-27-2022 ambulatory Jose Luis Toledo [facility] Start: 01-27-2022 End: 01-27-2022 Subsequent hospital visit by physician Deon Camacho MD Work Phone: [facility] General Surgery Comment on above: Post-op pain (Primar y Dx) Start: 01-22-2022 ambulatory [facility] Yari [facility] Start: 01-22-2022 End: 01-22-2022 Subsequent hospital visit by physician Deon Camacho MD Work Phone: [facility] Pre-Admit Testing Comment on above: Arrived Start: 01-21-2022 End: 01-21-2022 ambulatory Shobha Perez APRN.[employer] Work Phone: [facility] Comment on above: COVID-19 (Primary Dx ) Start: 01-21-2022 End: 01-21-2022 Telemedicine consultation with patient Shobha Ana [employer] Work Phone: [facility] Start: 01-16-2022 End: 01-16-2022 Patient encounter procedure Dee Flores APRN.CNP Work Phone: [facility] Comment on above: Hair thinning (Prima ry Dx); Hair loss; Hypothyroidism, acquired; Fatigue, unspecified type; Stress; Body aches; Anxiety disorder, unspecified type; Impaired concentration Start: 01-13-2022 End: 01-13-[address] Jose Luis Toledo Work Phone: [facility] [place] Work Phone: Start: 01-13-2022 End: 01-13-[address] Jose Luis Toledo Work Phone: [facility], [facility] Start: 01-02-2022 End: 01-02-[address] Jose Luis Toledo Work Phone: [facility] [place] Work Phone: Start: 01-02-2022 End: 01-02-[address] Jose Luis Toledo Work Phone: [facility] Start: 01-02-2022 End: 01-02-[address] Jose Luis Toledo Work Phone: [facility] Start: 12-27-2021 End: 12-27-[address] Jose Luis Toledo Work Phone: [facility] [place] Work Phone: Start: 12-27-2021 End: 12-27-[address] Jose Luis Toledo Work Phone: [facility] Start: 12-05-2021 End: 12-05-2021 ambulatory Dee Flores APRN.[employer] Work Phone: [facility] Comment on above: Impaired concentrati on (Primary Dx); Obesity, Class III, BMI 40-49.9 (morbid obesity) (HCC); Dyslipidemia; IFG (impaired fasting glucose); Pain in both hands Start: 12-05-2021 End: 12-05-2021 Telemedicine consultation with patient Dee Flores EMORY[employer] Work Phone: [facility] Start: 11-18-2021 End: 11-18-[address] Jose Luis Toledo Work Phone: [facility], [facility] Start: 11-04-2021 End: 11-04-2021 ambulatory Brandi Rasmussen APRN.[employer] Work Phone: [facility] Comment on above: Obesity, Class III, BMI 40-49.9 (morbid obesity) (HCC) (Primary Dx); Dyslipidemia; IFG (impaired fasting glucose); Impaired concentration Start: 11-04-2021 End: 11-04-2021 Telemedicine consultation with patient Brandi Rasmussen [employer] Work Phone: [facility] Start: 11-04-2021 End: 11-04-[address] Jose Luis Toledo Work Phone: [facility] Start: 10-03-2021 End: 10-03-2021 Patient encounter procedure Dee Flores APRN.[employer] Work Phone: [facility] [place] Comment on above: Obesity, Class III, BMI 40-49.9 (morbid obesity) (HCC) (Primary Dx); Impaired concentration; Dyslipidemia Start: 10-01-2021 End: 10-01-[address] Jose Luis Toledo Work Phone: [facility] Start: 09-26-2021 End: 09-26-[address] Jose Luis Toledo Work Phone: [facility] Neurology Start: 09-24-2021 End: 09-24-[address] Jose Luis [facility]edo [facility] Start: 09-17-2021 End: 09-17-[address] Jose Luis Toledo Work Phone: [facility] [place] Start: 08-19-2021 End: 08-19-[address] Jose Luis Toledo Work Phone: [facility] Start: 08-15-2021 End: 08-15-[address] Jose Luis Toledo Work Phone: [facility] Start: 08-12-2021 End: 08-12-2021 Patient encounter procedure Dee Flores [employer]N.[employer] Work Phone: [facility] Comment on above: Anxiety disorder, un specified type (Primary Dx); Impaired concentration; IFG (impaired fasting glucose); Hypothyroidism, acquired; Dyslipidemia; Obesity, Class II, BMI 35-39.9; Vitamin D deficiency; Hip pain Start: 07-30-2021 Non-patient / Non-visit Dr. Susan Toledo Work Phone: [facility] Start: 07-30-2021 End: 07-30-2021 Admission to same day surgery center Dr. Jose Luis Toledo [facility] Start: 07-30-2021 End: 07-30-[address] Jose Luis Toledo Work Phone: [facility] Neurology Start: 07-25-2021 End: 07-25-[address] Jose Luis Toledo Work Phone: [facility] Start: 07-16-2021 End: 07-16-[address] Jose Luis Toledo Work Phone: [facility] [place]-Outpatient Pavilion Ultrasound Start: 07-09-2021 End: 07-09-[address] Jose Luis Toledo Work Phone: [facility] Start: 06-11-2021 End: 06-11-[address] Jose Luis Toledo Work Phone: [facility] [place]-Outpatient Breast Imaging Start: 06-07-2021 Telephone encounter Jose Luis hanna DO Work Phone: [facility] Comment on above: Mammogram order Start: 06-05-2021 End: 06-05-[address] Jose Luis Toledo Work Phone: [facility] [place]-Laboratory, Specimen Start: 06-05-2021 End: 06-05-[address] Jose Luis Toledo Work Phone: [facility] Start: 12-03-2020 End: 12-03-2020 Subsequent hospital visit by physician Xr [facility] Work Phone: Radiology Comment on above: Lumbar back pain [M5 4.5] Start: 02-13-2020 End: 02-13-2020 Subsequent hospital visit by physician Xr [facility] Work Phone: Radiology Comment on above: Hip pain, acute, lef t [M25.552] Start: 07-21-2017 End: 07-22-2017 Ambulatory BILL MARIA [facility] [place] Start: 07-20-2017 End: 07-21-2017 Ambulatory PAPI RODGERS [facility] [place] Procedures Date Procedure Procedure Detail Performing Clinician [...] HCV Quant by PCR testing - HCVPCR #[id number] Non Reactive: < 0.8 Equivocal: >/= 0.8 [...] Radiologic exam ches t 2 views Dee lFores 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 Work Phone: Start: 06-30-2024 Urnls dip stick/tabl et rgnt auto w/o microscopy Dee Flores 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 Work Phone: Start: 01-14-2024 Ct abdomen & pelvis w/contrast material Jose Luis Toledo DO Work Phone: Start: 09-22-2023 BLADDER SCAN Nelida Neto pink 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 Work Phone: Start: 09-22-2023 Urnls dip stick/tabl et rgnt auto w/o microscopy Nelida Maria Fernanda 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 Work Phone: Start: 09-17-2023 Radiologic exam abdo men 1 view Nelida Maria Fernanda 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 Work Phone: Start: 08-10-2023 Radex spine lumbosac ral 2/3 views Dee Echavarriaman 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 Work Phone: Start: 05-26-[address] Omar Toledo Work Phone: Start: 05-26-2023 Investigation of transfusion reaction Dr. Jose Luis Toledo Work Phone: Start: 03-24-2023 Urnls dip stick/tabl et rgnt auto w/o microscopy Nelida Sawyermabel 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 Work Phone: Start: 03-11-2023 Radiologic exam abdo men 1 view Xi Barahona MD Work Phone: Start: 02-24-2023 CT of abdomen and pe lvis without contrast Start: 02-16-2023 Us retroperitoneal r eal time w/image complete Vicky Crowley 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 Work Phone: Start: 02-16-2023 Radiologic exam abdo men 1 view Vicky Crowley 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 Work Phone: Start: 02-14-2023 Urine culture Start: 02-09-2023 Urnls dip stick/tabl et rgnt auto w/o microscopy Vicky Crowley 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 Work Phone: Start: 02-02-2023 Culture bacterial quanttative colony count urine 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 Work Phone: Start: 02-02-2023 Urnls dip stick/tabl et rgnt auto w/o microscopy 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 Work Phone: Start: 08-14-2022 Radiologic exam ches t 2 views Dee Flores 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 Work Phone: Start: 08-07-2022 COVID WITH FLUA+B, ROUTINE Ry Chong 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 Work Phone: Start: 08-07-2022 Radiologic exam ches t 2 views Ry Chong 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 Work Phone: Start: 08-07-2022 STREP A MOLECULAR [...] abdomen & pelvis w/contrast material Dee Flores [employer] Work Phone: Start: 01-30-2022 Computed tomography of [...] 01-07-2021 Adult depression screening assessment Dee Flores APRN.[employer] Work Phone: Start: 12-03-2020 Radex spine lumbosac ral 2/3 views Shobha Perez 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 Work Phone: Start: 02-13-2020 Radex hip unilateral with pelvis 2-3 views Ry Chong 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 Work Phone: Cytopathology proced ure, preparation of smear, genital source Dr. Jose Luis Toledo Work Phone: H/O: bilateral oophorectomy Hx of bilateral oophorectomy Dee Flores 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 Work Phone: H/O: hysterectomy History of tot [...] Visit Annual PCP Team Chronic Disease Visit [facility] Start: 10-06-2025 Annual PCP Team Chronic Disease Visit Annual PCP Team Chronic Disease Visit [facility] Start: 07-07-2025 Annual PCP Team Chronic Disease Visit Annual PCP Team Chronic Disease Visit [facility] Start: 07-05-2025 Annual PCP Team Chronic Disease Visit Annual PCP Team Chronic Disease Visit [facility] Start: 07-03-2025 End: 07-03-2025 Patient encounter procedure 07/03/2025 8:20 AM EDT Office Visit [facility] [place] [address] [place], [place] [id number] Jose Luis Toledo DO [address] [place] [address] 3 month follow up [facility] [place] Comment on above: 3 month follow up Start: 06-30-2025 Annual PCP Team Chronic Disease Visit Annual PCP Team Chronic Disease Visit [facility] Start: 06-25-2025 HPV TESTING HPV TESTING [facility] Start: 06-25-2025 PAP TESTING PAP TESTING [facility] Start: 06-25-2025 Screening for malignant neoplasm of cervix [facility] Start: 05-05-2025 Annual PCP Team Chronic Disease Visit Annual PCP Team Chronic Disease Visit [facility] Start: 04-10-2025 End: 07-10-2025 Cobalamin (Vitamin B12) [Mass/volume] in Serum or Plasma VITAMIN B12 Lab Routine IFG (impaired fasting glucose) Expected: 04/10/2025, Expires: 07/10/2025 [facility] Comment on above: Expected: 04/10/2025, Expires: 6 Start: 04-06-2025 End: 04-06-2025 Patient encounter procedure 04/06/2025 8:20 AM EST Office Visit Family [facility] [address] [facility] [place] [address] Dee Flores APRN.[employer] [address] [place] [address] 3 month follow up [facility] Comment on above: 3 month follow up Start: 04-04-2025 Annual PCP Team Chronic Disease Visit Annual PCP Team Chronic Disease Visit [facility] Start: 04-04-2025 Covid-19 Vaccine () Covid-19 Vaccine () [facility] Comment on above: Postponed from 12/27/2023 (Declined at t his time) Start: 01-09-2025 End: 04-10-2025 Comprehensive metabolic 2000 panel - Serum or Plasma COMPREHENSIVE METABOLIC PANEL Lab Routine IFG (impaired fasting glucose) Expected: 01/09/2025, Expires: 04/10/2025 [facility] Work Phone: Comment on above: Expected: 01/09/2025, Expires: Start: 01-06-2025 End: 04-07-2025 25-hydroxyvitamin D3 [Mass/volume] in Serum or Plasma [facility] Comment on above: Expected: 01/06/2025, Expires: 5 Start: 01-06-2025 End: 04-07-2025 Ascorbate [Mass/volume] in Serum or Plasma [facility] Comment on above: Expected: 01/06/2025, Expires: Start: 01-06-2025 End: 04-07-2025 Cobalamin (Vitamin B12) [Mass/volume] in Serum or Plasma [facility] Comment on above: Expected: 01/06/2025, Expires: Start: 01-06-2025 End: 04-07-2025 Comprehensive metabolic 2000 panel - Serum or Plasma [facility] Comment on above: Expected: 01/06/2025, Expires: Start: 01-06-2025 End: 04-07-2025 Cortisol [Mass/volume] in Serum or Plasma [facility] Comment on above: Expected: 01/06/2025, Expires: Start: 01-06-2025 End: 04-07-2025 Hemoglobin A1c in Blood [facility] Comment on above: Expected: 01/06/2025, Expires: Start: 01-06-2025 End: 04-07-2025 Lipid 1996 panel - Serum or Plasma [facility] Comment on above: Expected: 01/06/2025, Expires: Start: 01-06-2025 End: 04-07-2025 Magnesium [Mass/volume] in Serum or Plasma [facility] Comment on above: Expected: 01/06/2025, Expires: Start: 01-06-2025 End: 04-07-2025 Thyrotropin [Units/volume] in Serum or Plasma [facility] Work Phone: Comment on above: Expected: 01/06/2025, Expires: Start: 01-06-2025 End: 04-07-2025 Thyroxine (T4) free [Mass/volume] in Serum or Plasma [facility] Comment on above: Expected: 01/06/2025, Expires: Start: 01-06-2025 End: 04-07-2025 Triiodothyronine (T3) Free [Mass/volume] in Serum or Plasma [facility] Comment on above: Expected: 01/06/2025, Expires: Start: 01-06-2025 End: 01-06-2025 Patient encounter procedure 01/06/2025 9:40 AM EDT Office Visit Family Brittny Jacob[facility] [address] [place] [address] Jose Luis Toledo DO [address] [place] [address] 3 month follow up Family Brittny [facility] Comment on above: 3 month follow up Start: 01-03-2025 Annual PCP Team Chronic Disease Visit Annual PCP Team Chronic Disease Visit [facility] Start: 12-26-2024 Influenza vaccination [facility] Start: 12-22-2024 Hepatitis C antibody measurement [facility] [place] Start: 12-22-2024 Serologic test for syphilis [facility] Start: 12-22-2024 [facility] [place] Start: 11-25-2024 Annual PCP Team Chronic Disease Visit Annual PCP Team Chronic Disease Visit [facility] Start: 10-24-2024 Influenza vaccination Influenza Vaccine (#1) [place] Julio Césari tan Comment on above: Postponed from 12/27/2023 (Declined at t his time) Start: 10-06-2024 End: 10-06-2024 Patient encounter procedure Family Medic ethan [facility] Comment on above: 3 month follow up 3 month follow up (R /S from [facility] on 10/06, no availability with PCP dyad) 3 mo followup Start: 09-28-2024 Annual PCP Team Chronic Disease Visit Annual PCP Team Chronic Disease Visit [facility] Start: 08-09-2024 Annual PCP Team Chronic Disease Visit Annual PCP Team Chronic Disease Visit [facility] Start: 07-07-2024 End: 10-06-2024 CBC panel - Blood by Automated count [facility] Work Phone: Comment on above: Expected: 07/07/2024, Expires: Start: 07-07-2024 End: 10-06-2024 Comprehensive metabolic 2000 panel - Serum or Plasma [facility] Comment on above: Expected: 07/07/2024, Expires: Start: 07-05-2024 Annual PCP Team Chronic Disease Visit Annual PCP Team Chronic Disease Visit [facility] Start: 07-05-2024 Covid-19 Vaccine ( season) Covid-19 Vaccine ( season) [facility] Comment on above: Postponed from 12/26/2022 (Declined at t his time) Start: 07-05-2024 End: 07-05-2024 Patient encounter procedure 07/05/2024 11:00 AM EDT Office Visit [facility] [place] [address] [facility] [place] [address] Jose Luis Toledo DO [address] [place] [address] 3 month follow up [facility] [place] Comment on above: 3 month follow up Start: 07-03-2024 End: 10-02-2024 Cobalamin (Vitamin B12) [Mass/volume] in Serum or Plasma VITAMIN B12 Lab Routine Vitamin B12 deficiency Expected: 07/03/2024, Expires: 10/02/2024 [facility] Comment on above: Expected: 07/03/2024, Expires: Start: 04-06-2024 Annual PCP Team Chronic Disease Visit Annual PCP Team Chronic Disease Visit [facility] Start: 04-05-2024 End: 04-05-2024 Patient encounter procedure 04/05/2024 8:50 AM EST Office Visit Cardiology [address] [place] [address] Dyslipidemia [E78.5]; ORTEZ (dyspnea on exertion) [R06.09] Cardiology Comment on above: Dyslipidemia [E78.5]; ORTEZ (dyspnea on ex ertion) [R06.09] Start: 04-05-2024 End: 04-05-2024 Patient encounter procedure 04/05/2024 7:45 AM EST Appointment Radiology [address] [place] [address] Hypothyroidism, acquired [E03.9]; Thyroid nodule [E04.1] Radiology Comment on above: Hypothyroidism, acquired [E03.9]; Thyroi d nodule [E04.1] Start: 04-04-2024 End: 07-04-2024 25-hydroxyvitamin D3 [Mass/volume] in Serum or Plasma [facility] Comment on above: Expected: 04/04/2024, Expires: Start: 04-04-2024 End: 07-04-2024 CBC W Auto Differential panel - Blood [facility] Comment on above: Expected: 04/04/2024, Expires: Start: 04-04-2024 End: 07-04-2024 Comprehensive metabolic 2000 panel - Serum or Plasma [facility] Comment on above: Expected: 04/04/2024, Expires: Start: 04-04-2024 End: 07-04-2024 Hemoglobin A1c in Blood [facility] Work Phone: Comment on above: Expected: 04/04/2024, Expires: Start: 04-04-2024 End: 07-04-2024 Insulin [Units/volume] in Serum or Plasma [facility] Comment on above: Expected: 04/04/2024, Expires: Start: 04-04-2024 End: 07-04-2024 Thyrotropin [Units/volume] in Serum or Plasma [facility] Comment on above: Expected: 04/04/2024, Expires: Start: 04-04-2024 End: 07-04-2024 Thyroxine (T4) free [Mass/volume] in Serum or Plasma [facility] Comment on above: Expected: 04/04/2024, Expires: Start: 04-04-2024 End: 07-04-2024 Triiodothyronine (T3) Free [Mass/volume] in Serum or Plasma [facility] Comment on above: Expected: 04/04/2024, Expires: Start: 04-04-2024 End: 04-04-2024 Patient encounter procedure 04/04/2024 10:00 AM EST Office Visit Family Brittny Jacobsen [address] [place] [address] Jose Luis Toledo, [address] [place] [address] 3 month follow up Family Brittny Jacob[facility] Comment on above: 3 month follow up Start: 03-03-2024 Annual PCP Team Chronic Disease Visit Annual PCP Team Chronic Disease Visit [facility] Start: 02-03-2024 Annual PCP Team Chronic Disease Visit Annual PCP Team Chronic Disease Visit [facility] Start: 01-14-2024 End: 01-14-2024 Patient encounter procedure Cat Scan Comment on above: Endometriosis [N80.9] Start: 01-04-2024 End: 01-04-2024 Patient encounter procedure 01/04/2024 2:20 PM EDT Office Visit [facility] [place] [address] [place], [place] [id number] Jose Luis Toledo DO [address] [place], [place] [id number] 3 month follow up [facility] [place] Comment on above: 3 month follow up Start: 12-27-2023 Covid-19 Vaccine ( season) Covid-19 Vaccine () [facility] Start: 12-27-2023 Covid-19 Vaccine ( season) Covid-19 Vaccine () [facility] Start: 12-27-2023 Influenza vaccination [facility] Start: 12-03-2023 ANNUAL PCP TEAM CHRONIC DISEASE VISIT ANNUAL PCP TEAM CHRONIC DISEASE VISIT [facility] Start: 11-11-2023 End: 11-11-2023 Patient encounter procedure 11/11/2023 12:00 PM EDT Office Visit Rheumatology [address] [place] [address] [place] [address] [place] [address] Arthralgia, unspecified joint [M25.50] Rheumatology Comment on above: Arthralgia, unspecified joint [M25.50] Start: 10-25-2023 Influenza vaccination Influenza Vaccine (#1) [place] Raymundo hare Comment on above: Postponed from 12/26/2022 (Declined at t his time) Start: 10-12-2023 End: 10-12-2023 Patient encounter procedure 10/12/2023 11:20 AM EDT Office Visit [facility] [place] [address] [place], [place] [phone] Jose Luis Toledo DO [address] [place], [place] [id number] 3 month follow up Family Brittny Jacobsen Comment on above: 3 month follow up Start: 10-02-2023 End: 10-02-2023 Patient encounter procedure Cat Scan Comment on above: Calculus of kidney [N20.0] Start: 09-29-2023 End: 09-29-2023 Patient encounter procedure 09/29/2023 3:20 PM EDT Office Visit [facility] [place] [address] [place] [address] Jose Luis Toledo DO [address] [place] [address] Weight check Family [facility] Comment on above: Weight check Start: 09-22-2023 End: 04-23-2024 XR ABDOMEN 1V SUPINE XR ABDOMEN 1V SUPINE Radiology Routine Right ureteral stone Expected: 09/22/2023 (Approximate), Expires: 04/23/2024 [facility] Work Phone: Comment on above: Expected: 09/22/2023 (Approximate), Expi res: 04/23/2024 Start: 09-22-2023 Subsequent hospital visit by physician 09/22/2023 11:10 AM EDT Hospital Encounter Radiology [address] [place] [address] Right ureteral stone [N20.1] Radiology Comment on above: Right ureteral stone [N20.1] Start: 09-22-2023 End: 09-22-2023 Patient encounter procedure 09/22/2023 9:30 AM EDT Office Visit Urology [address] [place] [address] Nelida Irving APRN.[employer] [address] [facility] [address] [place] [address] 6 month f/u Urology Comment on above: 6 month f/u Start: 08-31-2023 Acetylcholine receptor blocking Ab [Presence] in Serum [facility] Start: 08-31-2023 Acetylcholine receptor modulating antibody measurement [facility] Start: 08-15-2023 ANNUAL PCP TEAM CHRONIC DISEASE VISIT ANNUAL PCP TEAM CHRONIC DISEASE VISIT [facility] Start: 08-10-2023 End: 11-09-2023 Borrelia burgdorferi IgG and IgM panel - Serum [facility] Work Phone: Comment on above: Expected: 08/10/2023, Expires: 4 Start: 08-10-2023 End: 11-09-2023 Cyclic citrullinated peptide IgG Ab [Units/volume] in Serum or Plasma [facility] Work Phone: Comment on above: Expected: 08/10/2023, Expires: Start: 08-10-2023 End: 11-09-2023 Extractable nuclear Ab panel - Serum [facility] Work Phone: Comment on above: Expected: 08/10/2023, Expires: 4 Start: 08-10-2023 End: 11-09-2023 Insulin [Units/volume] in Serum or Plasma [facility] Work Phone: Comment on above: Expected: 08/10/2023, Expires: Start: 08-10-2023 End: 11-09-2023 Nuclear Ab [Presence] in Serum by Immunoassay [facility] Work Phone: Comment on above: Expected: 08/10/2023, Expires: 4 Start: 08-01-2023 ANNUAL PCP TEAM CHRONIC DISEASE VISIT ANNUAL PCP TEAM CHRONIC DISEASE VISIT [facility] Start: 07-01-2023 ANNUAL PCP TEAM CHRONIC DISEASE VISIT ANNUAL PCP TEAM CHRONIC DISEASE VISIT [facility] Start: 05-12-2023 ANNUAL PCP TEAM CHRONIC DISEASE VISIT ANNUAL PCP TEAM CHRONIC DISEASE VISIT [facility] Start: 05-12-2023 COVID-19 VACCINE (#1) COVID-19 VACCINE (#1) [facility] Comment on above: Postponed from 1980 (Declined at t his time) Start: 04-27-2023 Behavioral Health Screening Behavioral Health Screening [facility] Start: 04-27-2023 Depression Assessment Depression Assessment [facility] Start: 03-03-2023 End: 06-02-2023 Comprehensive metabolic 2000 panel - Serum or Plasma COMP METABOLIC PANEL Lab Routine Dysmetabolic syndrome Expected: 03/03/2023, Expires: 06/02/2023 [facility] Work Phone: Comment on above: Expected: 03/03/2023, Expires: 4 Start: 03-03-2023 End: 06-02-2023 Hemoglobin A1c in Blood HGB A1C Lab Routine Dysmetabolic syndrome Expected: 03/03/2023, Expires: 06/02/2023 [facility] Work Phone: Comment on above: Expected: 03/03/2023, Expires: Start: 03-03-2023 End: 06-02-2023 Insulin [Units/volume] in Serum or Plasma INSULIN ASSAY BLOOD Lab Routine Dysmetabolic syndrome Expected: 03/03/2023, Expires: 06/02/2023 [facility] Work Phone: Comment on above: Expected: 03/03/2023, Expires: Start: 03-03-2023 End: 06-02-2023 Thyrotropin [Units/volume] in Serum or Plasma TSH BLD Lab Routine Hypothyroidism, acquired Expected: 03/03/2023, Expires: 06/02/2023 [facility] Work Phone: Comment on above: Expected: 03/03/2023, Expires: 4 Start: 03-03-2023 End: 06-02-2023 Thyroxine (T4) free [Mass/volume] in Serum or Plasma T4 FREE/FREE THYROX Lab Routine Hypothyroidism, acquired Expected: 03/03/2023, Expires: 06/02/2023 [facility] Work Phone: Comment on above: Expected: 03/03/2023, Expires: 4 Start: 03-03-2023 End: 06-02-2023 Triiodothyronine (T3) Free [Mass/volume] in Serum or Plasma T3 FREE BLD Lab Routine Hypothyroidism, acquired Expected: 03/03/2023, Expires: 06/02/2023 [facility] Work Phone: Comment on above: Expected: 03/03/2023, Expires: 4 Start: 02-27-2023 ANNUAL PCP TEAM CHRONIC DISEASE VISIT ANNUAL PCP TEAM CHRONIC DISEASE VISIT [facility] Start: 02-24-2023 [facility] Start: 02-14-2023 Bacteria identified in Urine by Culture Urine Culture [facility] Start: 02-14-2023 End: 02-14-2023 [facility] Start: 02-05-2023 ANNUAL PCP TEAM CHRONIC DISEASE VISIT ANNUAL PCP TEAM CHRONIC DISEASE VISIT [facility] Start: 01-21-2023 ANNUAL PCP TEAM CHRONIC DISEASE VISIT ANNUAL PCP TEAM CHRONIC DISEASE VISIT [facility] Start: 01-16-2023 ANNUAL PCP TEAM CHRONIC DISEASE VISIT ANNUAL PCP TEAM CHRONIC DISEASE VISIT [facility] Start: 12-26-2022 Influenza vaccination [facility] Start: 12-05-2022 ANNUAL PCP TEAM CHRONIC DISEASE VISIT ANNUAL PCP TEAM CHRONIC DISEASE VISIT [facility] Start: 12-05-2022 HEPATITIS C SCREENING HEPATITIS C SCREENING [facility] Comment on above: Postponed from 01/16/1998 (Declined at t his time) Start: 12-05-2022 HIV SCREENING HIV SCREENING [facility] Comment on above: Postponed from 01/16/1998 (Declined at t his time) Start: 11-04-2022 ANNUAL PCP TEAM CHRONIC DISEASE VISIT ANNUAL PCP TEAM CHRONIC DISEASE VISIT [facility] Start: 10-24-2022 Influenza vaccination INFLUENZA (#1) [facility] Comment on above: Postponed from 12/26/2021 (Declined at t his time) Start: 10-03-2022 ANNUAL PCP TEAM CHRONIC DISEASE VISIT ANNUAL PCP TEAM CHRONIC DISEASE VISIT [facility] Start: 08-12-2022 ANNUAL PCP TEAM CHRONIC DISEASE VISIT ANNUAL PCP TEAM CHRONIC DISEASE VISIT [facility] Start: 06-11-2022 Mammography [facility] Start: 06-11-2022 Screening for malignant neoplasm of breast Mammogram Screening [facility] Start: 05-19-2022 End: 07-19-2022 25-hydroxyvitamin D3 [Mass/volume] in Serum or Plasma [facility] Work Phone: Comment on above: Expected: 05/19/2022, Expires: 3 Start: 05-19-2022 End: 07-19-2022 Bacteria identified in Urine by Culture [facility] Work Phone: Comment on above: Expected: 05/19/2022, Expires: 3 Start: 05-19-2022 End: 07-19-2022 Cobalamin (Vitamin B12) [Mass/volume] in Serum or Plasma [facility] Work Phone: Comment on above: Expected: 05/19/2022, Expires: 3 Start: 05-19-2022 End: 07-19-2022 Folate [Mass/volume] in Serum or Plasma [facility] Work Phone: Comment on above: Expected: 05/19/2022, Expires: 3 Start: 05-19-2022 End: 07-19-2022 Pyridoxine [Mass/volume] in Serum or Plasma [facility] Work Phone: Comment on above: Expected: 05/19/2022, Expires: 3 Start: 05-19-2022 End: 07-19-2022 RBC FOLATE RBC FOLATE Lab Routine Hair loss Expected: 05/19/2022, Expires: 07/19/2022 [facility] Work Phone: Comment on above: Expected: 05/19/2022, Expires: 3 Start: 05-19-2022 End: 07-19-2022 THYROID PEROXIDASE ANTIBODY BLOOD [facility] Work Phone: Comment on above: Expected: 05/19/2022, Expires: 3 Start: 05-19-2022 End: 07-19-2022 Thyrotropin [Units/volume] in Serum or Plasma [facility] Work Phone: Comment on above: Expected: 05/19/2022, Expires: 3 Start: 05-19-2022 End: 07-19-2022 Thyroxine (T4) free [Mass/volume] in Serum or Plasma [facility] Work Phone: Comment on above: Expected: 05/19/2022, Expires: 3 Start: 05-19-2022 End: 07-19-2022 Triiodothyronine (T3) [Mass/volume] in Serum or Plasma [facility] Work Phone: Comment on above: Expected: 05/19/2022, Expires: 3 Start: 05-19-2022 End: 07-19-2022 Urinalysis complete panel - Urine [facility] Work Phone: Comment on above: Expected: 05/19/2022, Expires: 3 Start: 05-12-2022 End: 07-12-2022 25-hydroxyvitamin D3 [Mass/volume] in Serum or Plasma VITAMIN D 25 HYDROXY Lab Routine Hair loss Thyroid nodule Expected: 05/12/2022, Expires: 07/12/2022 [facility] Work Phone: Comment on above: Expected: 05/12/2022, Expires: 3 Start: 05-12-2022 End: 07-12-2022 Bacteria identified in Urine by Culture URINE CULTURE Microbiology Routine Acute right flank pain History of renal stone Expected: 05/12/2022, Expires: 07/12/2022 [facility] Work Phone: Comment on above: Expected: 05/12/2022, Expires: 3 Start: 05-12-2022 End: 07-12-2022 Cobalamin (Vitamin B12) [Mass/volume] in Serum or Plasma VITAMIN B12 BLOOD Lab Routine Hair loss Thyroid nodule Expected: 05/12/2022, Expires: 07/12/2022 [facility] Work Phone: Comment on above: Expected: 05/12/2022, Expires: 3 Start: 05-12-2022 End: 07-12-2022 Comprehensive metabolic 2000 panel - Serum or Plasma COMP METABOLIC PANEL Lab Routine Hair loss Thyroid nodule Expected: 05/12/2022, Expires: 07/12/2022 [facility] Work Phone: Comment on above: Expected: 05/12/2022, Expires: 3 Start: 05-12-2022 End: 07-12-2022 Pyridoxine [Mass/volume] in Serum or Plasma VITAMIN B6/PYRIDOXIN Lab Routine Hair loss Thyroid nodule Expected: 05/12/2022, Expires: 07/12/2022 [facility] Work Phone: Comment on above: Expected: 05/12/2022, Expires: 3 Start: 05-12-2022 End: 07-12-2022 RBC FOLATE RBC FOLATE Lab Routine Hair loss Thyroid nodule Expected: 05/12/2022, Expires: 07/12/2022 [facility] Work Phone: Comment on above: Expected: 05/12/2022, Expires: 3 Start: 05-12-2022 End: 07-12-2022 THYROID PEROXIDASE ANTIBODY BLOOD THYROID PEROXIDASE ANTIBODY BLOOD Lab Routine Hair loss Thyroid nodule Expected: 05/12/2022, Expires: 07/12/2022 [facility] Work Phone: Comment on above: Expected: 05/12/2022, Expires: 3 Start: 05-12-2022 End: 07-12-2022 Thyrotropin [Units/volume] in Serum or Plasma TSH BLD Lab Routine Hair loss Thyroid nodule Expected: 05/12/2022, Expires: 07/12/2022 [facility] Work Phone: Comment on above: Expected: 05/12/2022, Expires: 3 Start: 05-12-2022 End: 07-12-2022 Thyroxine (T4) free [Mass/volume] in Serum or Plasma T4 FREE/FREE THYROX Lab Routine Hair loss Thyroid nodule Expected: 05/12/2022, Expires: 07/12/2022 [facility] Work Phone: Comment on above: Expected: 05/12/2022, Expires: 3 Start: 05-12-2022 End: 07-12-2022 Triiodothyronine (T3) Free [Mass/volume] in Serum or Plasma T3 FREE BLD Lab Routine Hair loss Thyroid nodule Expected: 05/12/2022, Expires: 07/12/2022 [facility] Work Phone: Comment on above: Expected: 05/12/2022, Expires: 3 Start: 05-12-2022 End: 03-18-2023 Urinalysis complete panel - Urine URINALYSIS, WITH MICROSCOPIC Lab Routine Acute right flank pain History of renal stone Expected: 05/12/2022, Expires: 07/12/2022 [facility] Work Phone: Comment on above: Expected: 05/12/2022, Expires: 3 Start: 04-29-2022 Pelvic echography Pelvic (Non ) [facility] Work Phone: Start: 04-29-2022 US Pelvis [facility] Work Phone: Start: 03-11-2022 COVID-19 VACCINE (#1) COVID-19 VACCINE (#1) [facility] Comment on above: Postponed from 01/16/1985 (Declined at t his time) Postponed from 07/16 (Declined at this time) Start: 03-11-2022 COVID-19 VACCINE (1) COVID-19 VACCINE (1) [facility] Comment on above: Postponed from 01/16/1985 (Declined at t his time) Start: 02-27-2022 End: 04-29-2022 Urinalysis complete panel - Urine [facility] Work Phone: Comment on above: Expected: 02/27/2022, Expires: 3 Start: 02-11-2022 End: 02-11-2022 Patient encounter procedure 02/11/2022 Office Visit Gynecologic Oncology Kayleigh Coronado APRN - [employer] [address] [facility] [address] [place] [address] [facility] [employer] On[facility] Start: 01-27-2022 End: 01-27-2022 Patient encounter procedure 01/27/2022 Appointment General Surgery Deon Camacho MD [address] [place] [address] [facility] General Surgery Start: 01-16-2022 End: 03-18-2022 25-hydroxyvitamin D3 [Mass/volume] in Serum or Plasma VITAMIN D 25 HYDROXY Lab Routine Hair thinning Hair loss Fatigue, unspecified type Stress Body aches Expected: 01/16/2022, Expires: 03/18/2022 [facility] Work Phone: Comment on above: Expected: 01/16/2022, Expires: 2 Start: 01-16-2022 End: 03-18-2022 CBC panel - Blood by Automated count CBC Lab Routine Hair thinning Hair loss Fatigue, unspecified type Stress Body aches Expected: 01/16/2022, Expires: 03/18/2022 [facility] Work Phone: Comment on above: Expected: 01/16/2022, Expires: 2 Start: 01-16-2022 End: 03-18-2022 Cobalamin (Vitamin B12) [Mass/volume] in Serum or Plasma VITAMIN B12 BLOOD Lab Routine Hair thinning Hair loss Fatigue, unspecified type Stress Body aches Expected: 01/16/2022, Expires: 03/18/2022 [facility] Work Phone: Comment on above: Expected: 01/16/2022, Expires: 2 Start: 01-16-2022 End: 03-18-2022 Comprehensive metabolic 2000 panel - Serum or Plasma COMP METABOLIC PANEL Lab Routine Hair thinning Hair loss Fatigue, unspecified type Stress Body aches Expected: 01/16/2022, Expires: 03/18/2022 [facility] Work Phone: Comment on above: Expected: 01/16/2022, Expires: 2 Start: 01-16-2022 End: 03-18-2022 Ferritin [Mass/volume] in Serum or Plasma FERRITIN BLD Lab Routine Hair thinning Hair loss Fatigue, unspecified type Stress Body aches Expected: 01/16/2022, Expires: 03/18/2022 [facility] Work Phone: Comment on above: Expected: 01/16/2022, Expires: 2 Start: 01-16-2022 End: 03-18-2022 Iron and Iron binding capacity panel - Serum or Plasma IRON + TIBC Lab Routine Hair thinning Hair loss Fatigue, unspecified type Stress Body aches Expected: 01/16/2022, Expires: 03/18/2022 [facility] Work Phone: Comment on above: Expected: 01/16/2022, Expires: 2 Start: 01-16-2022 End: 03-18-2022 Thyrotropin [Units/volume] in Serum or Plasma TSH BLD Lab Routine Hypothyroidism, acquired Hair thinning Hair loss Fatigue, unspecified type Stress Body aches Expected: 01/16/2022, Expires: 03/18/2022 [facility] Work Phone: Comment on above: Expected: 01/16/2022, Expires: 2 Start: 01-16-2022 End: 03-18-2022 Thyroxine (T4) free [Mass/volume] in Serum or Plasma T4 FREE/FREE THYROX Lab Routine Hypothyroidism, acquired Hair thinning Hair loss Fatigue, unspecified type Stress Body aches Expected: 01/16/2022, Expires: 03/18/2022 [facility] Work Phone: Comment on above: Expected: 01/16/2022, Expires: 2 Start: 01-16-2022 End: 03-18-2022 Triiodothyronine (T3) [Mass/volume] in Serum or Plasma T3 BLD Lab Routine Hypothyroidism, acquired Hair thinning Hair loss Fatigue, unspecified type Stress Body aches Expected: 01/16/2022, Expires: 03/18/2022 [facility] Work Phone: Comment on above: Expected: 01/16/2022, Expires: 2 Start: 01-07-2022 Adult depression screening assessment DEPRESSION SCREENING [facility] Start: 01-02-2022 Complement C4 [Mass/volume] in Serum or Plasma [facility] Work Phone: Start: 01-02-2022 Complement total hemolytic CH50 [Units/volume] in Serum or Plasma [facility] Work Phone: Start: 12-26-2021 Influenza vaccination [facility] Start: 12-05-2021 End: 02-04-2022 C reactive protein [Mass/volume] in Serum or Plasma C-REACTIVE PROTEIN (CRP) Lab Routine Pain in both hands Expected: 12/05/2021, Expires: 02/04/2022 [facility] Work Phone: Comment on above: Expected: 12/05/2021, Expires: 2 Start: 12-05-2021 End: 02-04-2022 CBC panel - Blood by Automated count CBC Lab Routine Pain in both hands Expected: 12/05/2021, Expires: 02/04/2022 [facility] Work Phone: Comment on above: Expected: 12/05/2021, Expires: 2 Start: 12-05-2021 End: 02-04-2022 Comprehensive metabolic 2000 panel - Serum or Plasma COMP METABOLIC PANEL Lab Routine Pain in both hands Expected: 12/05/2021, Expires: 02/04/2022 [facility] Work Phone: Comment on above: Expected: 12/05/2021, Expires: 2 Start: 12-05-2021 End: 02-04-2022 Cyclic citrullinated peptide IgG Ab [Units/volume] in Serum or Plasma CCP ANTIBODY IGG Lab Routine Pain in both hands Expected: 12/05/2021, Expires: 02/04/2022 [facility] Work Phone: Comment on above: Expected: 12/05/2021, Expires: 2 Start: 12-05-2021 End: 02-04-2022 Erythrocyte sedimentation rate SED RATE WESTERGREN Lab Routine Pain in both hands Expected: 12/05/2021, Expires: 02/04/2022 [facility] Work Phone: Comment on above: Expected: 12/05/2021, Expires: 2 Start: 12-05-2021 End: 02-04-2022 Extractable nuclear Ab panel - Serum ANTI OCTAVIANO ID Lab Routine Pain in both hands Expected: 12/05/2021, Expires: 02/04/2022 [facility] Work Phone: Comment on above: Expected: 12/05/2021, Expires: 2 Start: 12-05-2021 End: 02-04-2022 Nuclear Ab [Presence] in Serum by Immunoassay ZACHARIAH BLOOD Lab Routine Pain in both hands Expected: 12/05/2021, Expires: 02/04/2022 [facility] Work Phone: Comment on above: Expected: 12/05/2021, Expires: 2 Start: 12-05-2021 End: 02-04-2022 Rheumatoid factor [Units/volume] in Serum or Plasma RHEUMATOID FACTOR BL Lab Routine Pain in both hands Expected: 12/05/2021, Expires: 02/04/2022 [facility] Work Phone: Comment on above: Expected: 12/05/2021, Expires: 2 Start: 11-25-2021 Influenza vaccination Flu vaccine (#1) [facility] Start: 08-12-2021 End: 10-12-2021 CBC panel - Blood by Automated count [facility] Work Phone: Comment on above: Expected: 08/12/2021, Expires: 2 Start: 08-12-2021 End: 10-12-2021 Comprehensive metabolic 2000 panel - Serum or Plasma [facility] Work Phone: Comment on above: Expected: 08/12/2021, Expires: 2 Start: 08-12-2021 End: 10-12-2021 Hemoglobin A1c/Hemoglobin.total in Blood [facility] Work Phone: Comment on above: Expected: 08/12/2021, Expires: 2 Start: 08-12-2021 End: 10-12-2021 LIPID PANEL BASIC [facility] Work Phone: Comment on above: Expected: 08/12/2021, Expires: 2 Start: 08-12-2021 End: 10-12-2021 T3 BLD [facility] Work Phone: Comment on above: Expected: 08/12/2021, Expires: 2 Start: 08-12-2021 End: 10-12-2021 T4 FREE/FREE THYROX [facility] Work Phone: Comment on above: Expected: 08/12/2021, Expires: 2 Start: 08-12-2021 End: 10-12-2021 Thyrotropin [Units/volume] in Serum or Plasma TSH BLD Lab Routine Hypothyroidism, acquired Obesity, Class II, BMI 35-39.9 Expected: 08/12/2021, Expires: 10/12/2021 [facility] Work Phone: Comment on above: Expected: 08/12/2021, Expires: 2 Start: 08-12-2021 End: 10-12-2021 VITAMIN B12 BLOOD [facility] Work Phone: Comment on above: Expected: 08/12/2021, Expires: 2 Start: 08-12-2021 End: 10-12-2021 VITAMIN D 25 HYDROXY [facility] Work Phone: Comment on above: Expected: 08/12/2021, Expires: 2 Start: 07-30-2021 Ambulation without limitation [facility] Work Phone: Start: 07-30-2021 Medical regimen orders management [facility] Work Phone: Start: 07-30-2021 Medication education [facility] Work Phone: Start: 07-30-2021 Patient discharge [facility] Work Phone: Start: 07-30-2021 Procedure discontinued [facility] Work Phone: Start: 07-30-2021 Taking patient vital signs [facility] Work Phone: Start: 07-30-2021 Vital signs measurements [facility] Work Phone: Start: 07-30-2021 [facility] Work Phone: Start: 07-30-2021 Anesthesia intraperitoneal lower abd w/laps nos ANESTH SURG LOWER ABDOMEN [facility] Work Phone: Start: 07-30-2021 Laparoscopy w/lysis of adhesions LAPAROSCOPY LYSIS [facility] Work Phone: Start: 07-30-2021 Laps fulg/exc ovary viscera/peritoneal surface LAPAROSCOPY EXCISE LESIONS [facility] Work Phone: Start: 07-30-2021 Application of antithromboembolic stockings [facility] Work Phone: Start: 04-27-2021 DEPRESSION ASSESSMENT DEPRESSION ASSESSMENT [facility] Start: 2020 Lipid panel Lipids [facility] Start: 2020 Screening for malignant neoplasm of breast Breast cancer screen [facility] Start: 07-21-2017 DTaP/Tdap/Td vaccine (1 - Tdap) DTaP/Tdap/Td vaccine (1 - Tdap) [facility] Start: 07-21-2017 Urine microalbumin profile DTaP,Tdap,Td Vaccine (1 - Tdap) [facility] Start: 01-16-2015 Diabetes screen Diabetes screen [facility] Start: 01-16-2010 Screening for malignant neoplasm of cervix [facility] Start: 03-28-2009 Varicella vaccine (1 of 2 - 2-dose childhood series) Varicella vaccine (1 of 2 - 2-dose childhood series) [facility] Start: 01-16-2007 HPV Vaccine (1 - 3-dose SCDM series) HPV Vaccine (1 - 3-dose SCDM series) [facility] Start: 01-16-2001 Screening for malignant neoplasm of cervix Pap smear [facility] Start: 01-16-1999 Hepatitis B Vaccine (1 of 3 - 19+ 3-dose series) Hepatitis B Vaccine (1 of 3 - 19+ 3-dose series) [facility] Start: 01-16-1999 Urine microalbumin profile [place] [facility] Start: 01-16-1998 Depression Screening Depression Screening [facility] Start: 01-16-1998 HEPATITIS C SCREENING HEPATITIS C SCREENING [facility] Start: 01-16-1998 Hepatitis C screening [facility] Start: 01-16-1998 HIV SCREENING HIV SCREENING [facility] Start: 01-16-1998 HIV screening HIV Screening [facility] Start: 01-16-1995 HIV screening HIV screen [facility] Start: 1992 Depression Screen Depression Screen [facility] Start: 1980 COVID-19 Vaccine (#1) COVID-19 Vaccine (#1) [facility] Start: 1980 HEPATITIS B (1 of 3 - 3-dose series) HEPATITIS B (1 of 3 - 3-dose series) [facility] Start: 1980 Hepatitis B Vaccine (1 of 3 - 3-dose series) Hepatitis B Vaccine (1 of 3 - 3-dose series) [facility] Acetylcholine recept or Ab [Moles/volume] in Serum [facility] Acetylcholine recept or blocking Ab [Presence] in Serum [facility] Acetylcholine recept or modulating antibody measurement [facility] Bacteria identified in Urine by Culture URINE CULTURE Microbiology Routine Right ureteral stone Ordered: 02/09/2023 [facility] Work Phone: Comment on above: Ordered: 02/09/2023 Bacteria identified in Urine by Culture URINE CULTURE Microbiology Routine Acute cystitis without hematuria Ordered: 03/24/2023 [facility] Work Phone: Comment on above: Ordered: 03/24/2023 Blood glucose - POCT Blood gluco se - POCT Point of Care Testing STAT As Needed until discontinued starting 01/27/2022 [facility] Work Phone: Comment on above: As Needed until discontinued starting Chlamydia deoxyribon ucleic acid detection [facility] Complement C3 [Mass/ volume] in Serum or Plasma [facility] Work Phone: Complement C4 [Mass/ volume] in Serum or Plasma [facility] Work Phone: Complement total hem olytic CH50 [Units/volume] in Serum or Plasma [facility] Work Phone: COVID & INFLUENZA A/ B & RSV PCR, ROUTINE COVID & INFLUENZA A/B & RSV PCR, ROUTINE Microbiology Routine SOB (shortness of breath) Wheeze Acute cough 06/30/2024 9:55 AM EST [facility] Work Phone: End: 01-27-2022 Creatinine [Mass/volume] in Serum or Plasma Creatinine, serum Lab STAT One Time for 1 Occurrences starting 01/27/2022 until 01/27/2022 [facility] Work Phone: Comment on above: One Time for 1 Occurrences starting 06/2021 until 01/27/2022 End: 03-29-2023 Ct abdomen & pelvis w/contrast material CT ABD/PEL W IVCON Radiology TIM Left lower quadrant abdominal pain 1 Occurrences starting 02/27/2022 until 03/29/2023 [facility] Work Phone: Comment on above: 1 Occurrences starting 02/27/2022 until 03/29/2023 End: 06-11-2023 Ct abdomen & pelvis w/o contrast material CT FLANK WO IVCON Radiology Routine Acute right flank pain History of renal stone 1 Occurrences starting 05/12/2022 until 06/11/2023 [facility] Work Phone: Comment on above: 1 Occurrences starting 05/12/2022 until 06/11/2023 End: 03-03-2024 Ct abdomen & pelvis w/o contrast material CT FLANK WO IVCON Radiology Routine Kidney stone Gross hematuria Flank pain 1 Occurrences starting 02/02/2023 until 03/03/2024 [facility] Work Phone: Comment on above: 1 Occurrences starting 02/02/2023 until 03/03/2024 Ct abdomen & pelvis w/o contrast material CT FLANK WO IVCON Radiology Routine Kidney stone Gross hematuria Flank pain 02/05/2023 8:51 AM EDT [facility] Work Phone: End: 02-02-2025 CT Abdomen and Pelvis W contrast IV CT ABD/PEL W IVCON Radiology Routine Endometriosis Right lower quadrant abdominal pain 1 Occurrences starting 01/04/2024 until 02/02/2025 [facility] Work Phone: Comment on above: 1 Occurrences starting 01/04/2024 until 02/02/2025 End: 10-22-2024 CT Abdomen and Pelvis WO contrast CT ABD/PEL WO IVCON Radiology Routine Calculus of kidney 1 Occurrences starting 09/22/2023 until 10/22/2024 [facility] Work Phone: Comment on above: 1 Occurrences starting 09/22/2023 until 10/22/2024 CT Abdomen and Pelvi s WO contrast CT ABD/PEL WO IVCON Radiology Routine Calculus of kidney 09/29/2023 2:51 PM EDT [facility] Work Phone: CT Chest WO and W co ntrast IV [facility] CT Facial bones [facility] Work Phone: End: 07-07-2025 DBT Breast - bilateral screening MIRELLA SCREENING W CHRISTIANO Radiology Routine Encounter for screening mammogram for breast cancer 1 Occurrences starting 06/07/2024 until 07/07/2025 [facility] Work Phone: Comment on above: 1 Occurrences starting 06/07/2024 until 07/07/2025 End: 04-04-2025 Echocardiography ECHO Cardiology Routine Dyslipidemia ORTEZ (dyspnea on exertion) 1 Occurrences starting 04/04/2024 until 04/04/2025 [facility] Comment on above: 1 Occurrences starting 04/04/2024 until 04/04/2025 EKG 12 Lead EKG 12 Lead ECG STAT 01/27/2022 11:21 AM EDT [employer] Work Phone: Erythrocyte sediment ation rate [facility] Work Phone: Hepatitis B virus kellogg rface Ag [Presence] in Serum [facility] Influenza virus A an d B RNA and SARS-CoV-2 (COVID-19) N gene panel - Respiratory specimen by SHANE with probe detection COVID WITH FLUA+B, ROUTINE Microbiology Routine Hair thinning Hair loss Fatigue, unspecified type Stress Body aches Ordered: 01/16/2022 [facility] Work Phone: Comment on above: Ordered: 01/16/2022 End: 01-27-2022 INITIATE PACU OXYGEN THERAPY PROTOCOL Initiate PACU Oxygen Therapy Protocol Respiratory Care Routine Continuous until discontinued starting 01/27/2022 [employer] Work Phone: Comment on above: Continuous until discontinued starting 1 End: 01-27-2022 Intermittent pulse oximetry Pulse Oximetry Spot Check Respiratory Care Routine One Time for 1 Occurrences starting 01/27/2022 until 01/27/2022 [employer] Work Phone: Comment on above: One Time for 1 Occurrences starting 06/2021 until 01/27/2022 End: 08-22-2023 MIRELLA SCREENING MIRELLA SCREENING Radiology Routine Encounter for screening mammogram for breast cancer 1 Occurrences starting 07/23/2022 until 08/22/2023 [facility] Work Phone: Comment on above: 1 Occurrences starting 07/23/2022 until 08/22/2023 End: 07-07-2022 MIRELLA SCREENING W CHRISTIANO MIRELLA SCREENING W CHRISTIANO Radiology Routine Encounter for screening mammogram for breast cancer 1 Occurrences starting 06/07/2021 until 07/07/2022 [facility] Work Phone: Comment on above: 1 Occurrences starting 06/07/2021 until 07/07/2022 Measurement of Human herpesvirus 2 antibody [facility] End: 07-30-2024 MG Breast Screening MIRELLA SCREENING Radiology Routine Encounter for screening mammogram for breast cancer 1 Occurrences starting 07/01/2023 until 07/30/2024 [facility] Work Phone: Comment on above: 1 Occurrences starting 07/01/2023 until 07/30/2024 End: 08-04-2025 MG Breast Screening MIRELLA SCREENING Radiology Routine Encounter for screening mammogram for malignant neoplasm of breast 1 Occurrences starting 07/05/2024 until 08/04/2025 [facility] Work Phone: Comment on above: 1 Occurrences starting 07/05/2024 until 08/04/2025 Nasal Cannula Oxygen Nasal Cannu la Oxygen Respiratory Care Routine As Needed until discontinued starting 01/27/2022 [employer] Work Phone: Comment on above: As Needed until discontinued starting Nasal Cannula Oxygen Nasal Cannu la Oxygen Respiratory Care Routine As Needed until discontinued starting 01/27/2022 [employer] Work Phone: Comment on above: As Needed until discontinued starting Nonrebreather mask oxygen Nonreb reather mask oxygen Respiratory Care Routine As Needed until discontinued starting 01/27/2022 [employer] Work Phone: Comment on above: As Needed until discontinued starting Nonrebreather mask oxygen Nonreb reather mask oxygen Respiratory Care Routine As Needed until discontinued starting 01/27/2022 [employer] Work Phone: Comment on above: As Needed until discontinued starting OCCULT BLD EXAM-DIAG OCCULT BLD EXAM-DIAG Microbiology Routine Bloody stool Chronic midline low back pain without sciatica Abdominal pain, LLQ Hx of bilateral oophorectomy Ordered: 02/27/2022 [facility] Work Phone: Comment on above: Ordered: 02/27/2022 Oxygen therapy [[facility] Data Set] Initiate Oxygen Therapy Protocol Respiratory Care Routine As Needed until discontinued starting 01/27/2022 [employer] Work Phone: Comment on above: As Needed until discontinued starting Patient Education [facility] Work Phone: Patient referral [facility] Work Phone: End: 01-27-2022 Potassium w/ Reflex to Magnesium Potassium w/ Reflex to Magnesium Lab Routine One Time for 1 Occurrences starting 01/27/2022 until 01/27/2022 [employer] Work Phone: Comment on above: One Time for 1 Occurrences starting 06/2021 until 01/27/2022 End: 01-27-2022 , urine POCT , urine POCT Point of Care Testing Routine One Time for 1 Occurrences starting 01/27/2022 until 01/27/2022 [employer] Work Phone: Comment on above: One Time for 1 Occurrences starting 06/2021 until 01/27/2022 End: 01-27-2022 Protime-INR Protime-INR Lab STAT One Time for 1 Occurrences starting 01/27/2022 until 01/27/2022 [employer] Work Phone: Comment on above: One Time for 1 Occurrences starting 06/2021 until 01/27/2022 End: 06-11-2023 Radex sacrum & coccyx minimum 2 views XR SACRUM/COCCYX 3V AP/LAT Radiology Routine Sacral pain Chronic midline low back pain without sciatica 1 Occurrences starting 05/12/2022 until 06/11/2023 [facility] Work Phone: Comment on above: 1 Occurrences starting 05/12/2022 until 06/11/2023 End: 06-11-2023 Radex spine lumbosacral 2/3 views XR LUMBAR GENERAL 3V AP/LAT/L5-S1 Radiology Routine Sacral pain Chronic midline low back pain without sciatica 1 Occurrences starting 05/12/2022 until 06/11/2023 [facility] Work Phone: Comment on above: 1 Occurrences starting 05/12/2022 until 06/11/2023 Serologic test for h erpes simplex [facility] Spirometry panel Incentive yaa metry Respiratory Care Routine Q1H PRN until discontinued starting 01/27/2022 [facility] Work Phone: Comment on above: Q1H PRN until discontinued starting 06/2021 Ther px 1/> areas ea ch 15 minutes massage MASSAGE THERAPY Procedures Routine Acute pain of right shoulder Ordered: 05/05/2024 [facility] Comment on above: Ordered: 05/05/2024 UA DIP, URINE (POC) UA DIP, URIN E (POC) Lab Routine Kidney stone Gross hematuria Ordered: 02/02/2023 [facility] Work Phone: Comment on above: Ordered: 02/02/2023 UA DIP, URINE (POC) UA DIP, URIN E (POC) Lab Routine Nausea Bilateral flank pain Ordered: 07/07/2024 [facility] Comment on above: Ordered: 07/07/2024 End: 03-10-2024 US KIDNEY/BLADDER US KIDNEY/BLADDER Radiology Routine Right ureteral stone 1 Occurrences starting 02/09/2023 until 03/10/2024 [facility] Work Phone: Comment on above: 1 Occurrences starting 02/09/2023 until 03/10/2024 US Pelvis [facility] US Pelvis transvaginal [facility] End: 06-11-2023 Us soft tissue head & neck real time imge docm US THYROID/PARATHYROID Radiology Routine Hair loss Thyroid nodule 1 Occurrences starting 05/12/2022 until 06/11/2023 [facility] Work Phone: Comment on above: 1 Occurrences starting 05/12/2022 until 06/11/2023 End: 05-04-2025 US Thyroid gland US THYROID/PARATHYROID Radiology Routine Hypothyroidism, acquired Thyroid nodule 1 Occurrences starting 04/04/2024 until 05/04/2025 [facility] Comment on above: 1 Occurrences starting 04/04/2024 until 05/04/2025 US Thyroid gland US THYROID/PARA THYROID Radiology Routine Hypothyroidism, acquired Thyroid nodule 04/05/2024 7:53 AM EST [facility] Work Phone: End: 12-10-2024 US Upper extremity - left US HAND/WRIST SYNOVIAL SCREEN LEFT Radiology Routine Finger swelling 1 Occurrences starting 11/11/2023 until 12/10/2024 [facility] Comment on above: 1 Occurrences starting 11/11/2023 until 12/10/2024 End: 12-10-2024 US Upper extremity - right US HAND/WRIST SYNOVIAL SCREEN RIGHT Radiology Routine Finger swelling 1 Occurrences starting 11/11/2023 until 12/10/2024 [facility] Work Phone: Comment on above: 1 Occurrences starting 11/11/2023 until 12/10/2024 End: 03-10-2024 XR ABDOMEN 1V SUPINE XR ABDOMEN 1V SUPINE Radiology Routine Right ureteral stone 1 Occurrences starting 02/09/2023 until 03/10/2024 [facility] Work Phone: Comment on above: 1 Occurrences starting 02/09/2023 until 03/10/2024 XR Abdomen Supine an d Upright XR ABDOMEN 1V SUPINE Radiology Routine Right ureteral stone 09/17/2023 11:28 AM EDT [facility] Work Phone: End: 10-22-2024 XR Abdomen Supine and Upright XR ABDOMEN 1V SUPINE Radiology Routine Calculus of kidney 1 Occurrences starting 09/22/2023 until 10/22/2024 [facility] Comment on above: 1 Occurrences starting 09/22/2023 until 10/22/2024 End: 08-04-2025 XR Chest PA and Lateral XR CHEST 2V FRONTAL/LAT Radiology Routine Rhonchi at both lung bases Community acquired pneumonia, unspecified laterality 1 Occurrences starting 07/05/2024 until 08/04/2025 [facility] Comment on above: 1 Occurrences starting 07/05/2024 until 08/04/2025 End: 06-04-2025 XR Shoulder - right 3 Views XR SHOULDER GENERAL 3V OR MORE AP/TRUE AP/OTHER RIGHT Radiology Routine Acute pain of right shoulder 1 Occurrences starting 05/05/2024 until 06/04/2025 [facility] Work Phone: Comment on above: 1 Occurrences starting 05/05/2024 until 06/04/2025 [facility] Immunizations Immunization Date Immunization Notes Care Provider Navarro andersen 03-15-2018 influenza virus vacc ine, unspecified formulation Jose Luis Toledo DO Work Phone: [facility] 02-02-2015 influenza, injectabl e, quadrivalent, contains preservative Dee Flores 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 Work Phone: [facility] Payers Date Payer Category Payer Self-pay [id number] 2022 [employer] Blue [employer] BLUE CARD PPO OOS [id number] 2022 Unknown 2022 Unknown [id number] 2019 Medicaid [employer]ICA[employer] [id number] 2019-Present [phone] [address] [place] [address] Medicaid [id number] 2019 Medicaid [id number] 2015 Unknown [id number] 2015 Unknown [id number] 1980 Unknown [id number] 1980 Unknown [id number] Unknown [id number] Unknown [id number] Unknown [id number] Unknown [id number] 462 Unknown [id number] 462 Unknown [id number] 462 Unknown [id number] Unknown [id number] Social History Date Type Detail Facility Start: 07-09-2021 End: 05-26-2023 Tobacco smoking status HIIS Unknown if ever smoked [facility] Start: 11-23-2019 None [facility] Start: 11-23-2019 Spouse/ Signif icant Other [facility] Start: 09-04-2020 Non-smoker [facility] Start: 1980 Sex Assigned At Female W [facility] Start: 01-15-2011 End: 01-16-2022 Tobacco smoking status NHIS Never smoked tobacco [facility] Start: 08-12-2021 End: 10-06-2024 Alcohol intake Current drinker of alcohol (finding) [facility] Start: 11-20-2016 History SDOH Alcohol Comment twice a year-socially [facility] Start: 1980 Sex Assigned At Not on file [facility] Start: 01-14-2020 End: 02-27-2022 Exposure to SARS-CoV-2 (event) Not sure [facility] Start: 11-04-2021 End: 06-29-2022 History SDOH Alcohol Frequency 2 [facility] Start: 11-04-2021 End: 06-29-2022 History SDOH Alcohol Std Drinks 1 [facility] Start: 11-04-2021 End: 06-29-2022 History SDOH Social Connections Phone 4 [facility] Start: 11-04-2021 History SDOH Social Connections [employer] [facility] Start: 11-04-2021 End: 06-29-2022 History SDOH Social Connections Living 3 [facility] Start: 01-15-2011 End: 01-16-2022 Tobacco use and exposure Smokeless tobacco non-user [facility] Work Phone: Start: 01-22-2022 History SDOH Alcohol Comment occ [facility] Work Phone: Start: 01-12-2022 End: 01-22-2022 Exposure to SARS-CoV-2 (event) Yes [facility] Work Phone: Start: 06-29-2022 History SDOH Social Connections Phone 5 [facility] Start: 06-29-2022 History SDOH Physica l Activity MPS 7 [facility] Start: 06-28-2022 End: 11-10-2022 History of Social function [facility] Start: 06-28-2022 End: 11-10-2022 Social connection and isolation panel [facility] Do you belong to any clubs or organizations such as alevism groups, unions, fraternal or athletic groups, or school groups? No [facility] Are you now , , , , never or living with a partner? [facility] How often to you hav e a drink containing alcohol? Monthly or less [facility] How many standard drinks containing alcohol do you have on a typical day? 1 or 2 [facility] How often do you hav e 6 or more drinks on 1 occasion? Never [facility] How hard is it for y ou to pay for the very basics like food, housing, medical care, and heating Somewhat hard [facility] Start: 03-28-2012 Adult Depression Screening Assessment 0 [facility] Work Phone: Do you feel stress - tense, restless, nervous, or anxious, or unable to sleep at night because your mind is troubled all the time - these days [OSQ] Rather much [facility] (I/We) worried wheth er (my/our) food would run out before (I/we) got money to buy more. Never true [facility] Do you feel stress - tense, restless, nervous, or anxious, or unable to sleep at night because your mind is troubled all the time - these days [OSQ] To some extent [facility] Do you feel stress - tense, restless, nervous, or anxious, or unable to sleep at night because your mind is troubled all the time - these days [OSQ] Very much [facility] Start: 07-27-2024 Sex Female (finding) [facility] NEGATED: Highlighted row [facility] Medical Equipment Procedure Code Equipment Code Equipment Original Text Equipment Identifier Dates SEALANT,FLOSEAL HEMOSTATIC 5ML FDA Start: 07-30-2021 Plant polysaccha ride haemostatic agent, bioabsorbable [id number] FDA Start: 07-30-2021 SEALANT,FLOSEAL HEMOSTATIC 5ML [...] FDA Start: 07-30-2021 1 Syringe as directed. [id number] art: 09-29-2023 1 Each once daily. [id number] Start: 04-12-2024 End: 10-09-2024 SEALANT,FLOSEAL HEMOSTATIC 5ML [...] 11:28 AM JACKYT Bertha Rivera LPN No [facility] Work Phone: 10-31-2014 Are you blind, or do you have serious difficulty seeing, even when wearing glasses No 10/31/2014 11:28 AM Bertha Ibarra LPN No [facility] 10-31-2014 Do you have serious difficulty walking or climbing stairs No 10/31/2014 11:28 AM EDT Bertha Rivera LPN No [facility] 10-31-2014 Do you have difficul ty dressing or bathing No 10/31/2014 11:28 AM EDT Bertha Rivera LPN No [facility] 10-31-2014 Because of a physica l, mental, or emotional condition, do you have difficulty doing errands alone such as visiting a physician's office or shopping No 10/31/2014 11:28 AM EDT Bertha Rivera LPN No [facility] Mental Status Date Assessment Result Facility 07-30-2021 Cognitive function Voice/Name [facility] Work Phone: 10-31-2014 Because of a physica l, mental, or emotional condition, do you have serious difficulty concentrating, remembering, or making decisions No 10/31/2014 11:28 AM EDT Bertha Rivera LPN No [facility] Clinical Notes 10-21-2016 to 01-09-2025 Telephone Encounter - Jose Luis Toledo DO - 01/09/2025 7:30 AM EDTTelephone Encounter - Jose Luis Toledo DO - 01/09/2025 7:30 AM EDTPatient Instructions Note Date & Type Note Facility 01-09-2025 Telephone encounter Note The lab canceled her orders Orders replaced in chart Jose Luis Toledo DO [facility] 01-09-2025 Miscellaneous Notes The lab canceled her orders Orders replaced in chart Jose Luis Toledo DO documented in this encounter [facility] 01-06-2025 Instructions Jose Luis Toledo DO - 01/06/2025 10:11 AM EDT Pyrostigmine for Myasthenia Gravis Pharmacologic Category Acetylcholinesterase Inhibitor documented in this encounter [facility] 01-06-2025 Note HNO ID: [id number] Author: JOSE LUIS TOLEDO, DO Service: ? Author Type: Physician Type: Progress Notes Filed: 01/06/2025 12:16 Note Text: CC: Sammy Redd is a 44 year old female who presents to the office for follow up HPI: Muscle weakness and myalgias, she Was just diagnosed with Myasthenia gravis with Neurology Dr. Oneal at [facility]- antibody levels were normal but he feels [...] disorder (just had APPT drawn - in [facility]) PUD (peptic ulcer disease) 2009 treated [...] 1 mL intramusc (more content not included)... [facility] 01-06-2025 History of Presen t illness Narrative CC: Sammy Redd is a 44 year old female who presents to the office for follow up HPI: Muscle weakness and myalgias, she Was just diagnosed with Myasthenia gravis with Neurology Dr. Oneal at [facility]- antibody levels were normal but he feels [...] disorder (just had APPT drawn - in [facility]) PUD (peptic ulcer disease) 2009 treated [...] See patient instructions. Jose Luis Toledo DO [address] [place] [address] [1] Social History Tobacco Use Smoking status: Never Smokeless tobacco: Never Vaping Use Vaping status: Never Used Substance Use Topics Alcohol use: Yes Comment: twice a year-socially Drug use: No documented in this encounter [facility] 12-21-2024 Evaluation note Diagnosis Onset Date Resolution Infected lesion of skin acute A ugust 2024 4:37pm Encounter for routine gynecological examination noneactive December 22 12:33pm [facility] Work Phone: 1(605) 981-270508-27-2025 Evaluation note* Diagnosis Onset Date Resolution Status Admit Date Infected lesion of skin acute A ugust 2024 4:37pm Infected lesion of skin acute A ugust 2024 12:33pm Possible exposure to STD acute December 22, 2024 12:33pm Urinary frequency acute December 22, 2024 12:33pm Encounter for routine gynecological examination noneactive December 22, 2024 12:33pm [facility] Work Phone: 1(935) 451-457208-27-2025 Evaluation note* Diagnosis Onset Date Resolution Status [...] with aura chronic January 05, 2025 8:12am [facility] Work Phone: [phone]) [phone] NoteHNO ID: [id number] Author: BRANDI QUINTEROS APRN.[employer] Service: ? Author Type: Nurse Practitioner Type: Progress Notes Filed: 10/06/2024 09:33 Note Text: 10/06/2024 Recording using [employer] software for draft documentation of the visit was discussed with the patient/authorized technology sales representative; all questions welcomed and answered. Patient/authorized technology sales representative agreed to proceed HPI: Sammy Redd is [...] disorder (just had APPT drawn - [place] [facility]) PUD (peptic ulcer disease) 2010 treated [...] PERLE) 100 mg caps (more content not included)...[facility]06-12-2025 History of Present illness Narrative* 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, [employer] - 10/06/2024 9:05 AM EDT 10/06/2024 Recording using ambient [employer] software for draft documentation of the visit was discussed with the patient/authorized technology sales representative; all questions welcomed and answered. Patient/authorized technology sales representative agreed to proceed HPI: Sammy Redd is [...] disorder (just had APPT drawn - in [facility]) PUD (peptic ulcer disease) 2009 treated [...] 8 hours as needed (muscle spasms). Insulin Stirling, Disposable, (PEN NEEDLE) 29 gauge x 1/2 [...] keTORolac 30 mg injection (Toradol) 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 APRN.[employer] [facility] Telephone encounter Note * Telephone Encounter - [...] Munoz LPN August 22, 2024 6:21 PM [facility]04-28-2025 Miscellaneous Notes* Telephone Encounter - Rogers Munoz [...] 22, 2024 6:21 PM documented in this encounterKindred Hospital [facility]04-17-2025 Telephone encounter Note * Telephone Encounter - Giana Alicea MA - 08/11/2024 9:05 AM EDT Pt informed, verbalized understanding. Pt reports she is feeling much better. Giana Alicea MA [facility]04-17-2025 Miscellaneous Notes* Telephone Encounter - Giana Alicea [...] will need to get her in with multiple sclerosis nurse Jose Luis Toledo DO documented in this encounterKindred Hospital [facility]04-16-2025 Telephone encounter Note * Telephone Encounter - Jose Luis Toledo DO - 08/10/2024 10:08 PM EDT Please call and make sure she is aware that CT of her chest was overall normal. No concerns If continues to have symptoms of lung concerns, then will need to get her in with multiple sclerosis nurse Jose Luis Toledo DO [facility]04-03-2025 History of Present illness Narrative* Evens Stacy [...] PATIENT PRESENTS WITH AN IMPLANTABLE OR ATTACHED ICT SYSTEMS TEST ENGINEER: No RADIOLOGY DEPARTMENT: CT; Exam(s) Completed: Chest PERIPHERAL IV DATA: Not applicable SIGNED BY: MEAGHAN Becerril) July 28, 2024 1:30 PM documented in this encounterKindred Hospital [facility]04-03-2025 NoteHNO ID: [id number] Author: EVENS STACY RT(R) Service: ? Author Type: Steam Shovel Operating Engineer Type: Progress Notes Filed: 07/28/2024 13:30 Note [...] PATIENT PRESENTS WITH AN IMPLANTABLE OR ATTACHED ICT SYSTEMS TEST ENGINEER: No RADIOLOGY DEPARTMENT: CT; Exam(s) Completed: Chest PERIPHERAL IV DATA: Not applicable SIGNED BY: Evens Figueroa, RT(R) July 28, 2024 1:30 [facility]03-19-2025 Telephone encounter Note* Telephone Encounter - Giana Alicea MA - 07/13/2024 1:15 PM EDT Pt informed via MC message Giana Alicea MA [facility]03-19-2025 Miscellaneous Notes* Telephone Encounter - Giana Alicea [...] to see you. Thanks! documented in this encounterKindred Hospital [facility]ima03-19-2025 Telephone encounter Note * Telephone Encounter - Jose Luis Toledo DO - 07/13/2024 1:03 PM EDT Please let her know that her recent labs and UA show no signs of kidney disease or concern. Her chest xray was also normal If still having any lung symptoms, we will need to do a CT chest Jose Luis Toledo DO [facility]03-18-2025 Telephone encounter Note* Telephone Encounter - Giana [...] I was in to see you. Thanks! [facility]03-18-2025 Telephone encounter Note* Telephone Encounter - Giana Alicea MA - 07/12/2024 7:16 AM EDT Turned into TE Giana Alicea MA [facility]03-18-2025 Miscellaneous Notes* Telephone Encounter - Giana Alicea MA - 07/12/2024 7:16 AM EDT Turned into TE Giana Alicea MA documented in this encounterKindred Hospital [facility]03-13-2025 Instructions* Patient Instructions* Dee Flores APRN.[employer] - 07/07/2024 11:28 AM EDT Get a minimum of 60-80oz of water daily. Do at least 2 of the IV hydration packets as well. Ok to take your Diflucan. Ok to swish wish warm salt water, peroxide and water. documented in this encounterKindred Hospital [facility]ima03-13-2025 NoteHNO ID: [id number] Author: DEE FLORES APRN.JOI Service: ? Author Type: Nurse Practitioner Type: Progress Notes Filed: 07/07/2024 13:59 Note Text: Chief Complaint Patient presents with: Follow Up: Wheeze, SOB, chest discomfort, feels nauseous AND bad heartburn, feels a little better HPI Sammy Redd is a 44 year old female who presents here today for Above Complaints.. Per visit with [facility] on 06/28/2024: Cough Associated symptoms include [...] 2V FRONTAL/LAT - PRED (more content not included)...[facility]03-13-2025 History of Present illness Narrative* Dee Flores APRN.[employer] - 07/07/2024 10:29 AM EDT Chief Complaint Patient presents with: Follow Up: Wheeze, SOB, chest discomfort, feels nauseous & bad heartburn, feels a little better HPI Sammy Redd is a 44 year old female who presents here today for Above Complaints.. Per [facility] with [facility] on [facility]28[facility]24: Cough Associated symptoms include chills, [...] Patient education for prevention given Dee Flores APRN.[employer] Per visit with PCP Dr. Toledo on [...] disorder (just had APPT drawn - in [facility] - [facility]) PUD (peptic ulcer disease) 2009 treated [...] 8 hours as needed (muscle spasms). Insulin Stirling, Disposable, (PEN NEEDLE) 29 gauge x 1/2 [...] - UA DIP, URINE (POC) Dee Flores APRN.[employer] documented in this encounterKindred Hospital [facility]ima03-13-2025 History of Present illness Narrative* Jodie Knott [...] PATIENT PRESENTS WITH AN IMPLANTABLE OR ATTACHED ICT SYSTEMS TEST ENGINEER: No RADIOLOGY DEPARTMENT: General X-ray: Exam(s) Completed: Chest X-Ray PERIPHERAL IV DATA: Not applicable SIGNED BY: RT Britton(Laura) July 07, 2024 9:45 AM documented in this encounterKindred Hospital [facility]ima03-13-2025 NoteHNO ID: [id number] Author: JODIE KNOTT RT(R) Service: Radiology Author [...] PATIENT PRESENTS WITH AN IMPLANTABLE OR ATTACHED ICT SYSTEMS TEST ENGINEER: No RADIOLOGY DEPARTMENT: General X-ray: Exam(s) Completed: Chest X-Ray PERIPHERAL IV DATA: Not applicable SIGNED BY: RT Britton(Laura) July 07, 2024 9:45 [facility]03-11-2025 NoteHNO ID: [id number] Author: JOSE LUIS TOLEDO, DO Service: ? [...] disorder (just had APPT drawn - in [facility]) PUD (peptic ulcer disease) 2010 treated medically, [...] 8 hours as needed (muscle spasms). Insulin Stirling, Disposable, (PEN NEEDLE) 29 gauge x 1/2 [...] mouth once daily. [email or web address] (more content not included)...[place] [address]-11-2025 History of Present illness Narrative* ToledoJose Luis [...] disorder (just had APPT drawn - in [facility] - [facility]) PUD (peptic ulcer disease) 2010 treated [...] 8 hours as needed (muscle spasms). Insulin Stirling, Disposable, (PEN NEEDLE) 29 gauge x 1/2 [...] See patient instructions. Jose Luis Toledo DO [address] [place] [address] documented in this encounterKindred Hospital [facility]03-10-2025 Telephone encounter Note * Telephone Encounter - [...] Please advise. Thank you. Bertha Rivera LPN. [facility]03-10-2025 Miscellaneous Notes* Telephone Encounter - Bertha Sarmiento [...] you. Bertha Rivera LPN. documented in this encounterKindred Hospital [facility]03-07-2025 Telephone encounter Note * Telephone Encounter - Giana Alicea MA - 07/01/2024 7:45 AM EST Pt informed Giana Alicea MA [facility]03-07-2025 Miscellaneous Notes* Telephone Encounter - Giana Alicea [...] days. Dee Flores APRN.CNP documented in this encounterKindred Hospital [facility]03-07-2025 Telephone encounter Note * Telephone Encounter - [...] day for 5 days. Dee Flores APRN.CNP [facility]03-06-2025 Telephone encounter Note* Telephone Encounter - iGana Alicea MA - 06/30/2024 1:32 PM EST Script faxed Giana Alicea MA [facility]03-06-2025 Miscellaneous Notes* Telephone Encounter - Giana Alicea [...] work. Please send escript to [facility]. Make sure script states nebulizer compressor per Milady. Giana Alicea MA * Telephone Encounter - Dee Flores APRN.CNP - 06/30/2024 12:13 PM EST I added the viral uri and restrictive airway disease-do these work? Dee Flores APRN.JOI * Telephone Encounter - Shiloh Harris LPN - 06/30/2024 11:17 AM EST Milady from [facility] calling asking for another diagnosis for the Nebulizer, ones on rx not going to be covered. Call her first to see if diagnosis code works, then she will need a new rx sent to her. Cost for patient would be 90 dollars. Please advise documented in this encounterKindred Hospital [facility]ima03-06-2025 Telephone encounter Note * Telephone Encounter - Dee Flores APRN.CNP - 06/30/2024 1:30 PM EST Bronchitis added to dx. Order in the outbox in our office. Dee Flores APRN.CNP [facility]03-06-2025 Telephone encounter Note* Telephone Encounter - Giana Alicea MA - 06/30/2024 1:25 PM EST Neither dx will work. J42 or J40 - bronchitis should work. Please send escript to [facility]. Make sure script states nebulizer compressor per Milady. Giana Alicea MA [facility]03-06-2025 Telephone encounter Note* Telephone Encounter - Dee Flores APRN.CNP - 06/30/2024 12:13 PM EST I added the viral uri and restrictive airway disease-do these work? Dee Flores APRN.JOI [facility]03-06-2025 Telephone encounter Note* Telephone Encounter - Shiloh Harris LPN - 06/30/2024 11:17 AM EST Milady from [facility] calling asking for another diagnosis for the Nebulizer, ones on rx not going to be covered. Call her first to see if diagnosis code works, then she will need a new rx sent to her. Cost for patient would be 90 dollars. Please advise [facility]03-06-2025 History of Present illness Narrative* Zac [...] PATIENT PRESENTS WITH AN IMPLANTABLE OR ATTACHED ICT SYSTEMS TEST ENGINEER: No RADIOLOGY DEPARTMENT: General X-ray: Exam(s) Completed: Chest X-Ray PERIPHERAL IV DATA: Not applicable SIGNED BY: Forrest Tello June 30, 2024 10:23 AM documented in this encounterKindred Hospital [facility]03-06-2025 NoteHNO ID: [id number] Author: ZAC SLAUGTHER Tech Service: ? Author Type: Technologist Type: [...] PATIENT PRESENTS WITH AN IMPLANTABLE OR ATTACHED ICT SYSTEMS TEST ENGINEER: No RADIOLOGY DEPARTMENT: General X-ray: Exam(s) Completed: Chest X-Ray PERIPHERAL IV DATA: Not applicable SIGNED BY: Forrest Tello June 30, 2024 10:23 [facility]03-06-2025 LzhzPIKB-JIP-2 (AGENT OF COVID-19) RNA: Not detected INFLUENZA A RNA: Detected INFLUENZA B RNA: Not detected RESPIRATORY SYNCYTIAL VIRUS (RSV) RNA: Not detectedGreen Cross HospitalComment on above:Performed By: #### [id number] ####[facility] LABCLIA [id number] [address]03-06-2025 NoteHNO ID: [id number] Author: DEE FLORES APRN.[facility] Service: ? Author Type: Nurse Practitioner [...] disorder (just had APPT drawn - in [facility]) PUD (peptic ulcer disease) 2010 treated [...] Patient Allergies ALLERGIES Al (more content not included)...[facility]03-06-2025 History of Present illness Narrative* Dee Flores APRN.[employer] - 06/30/2024 9:38 AM EST Chief Complaint [...] disorder (just had APPT drawn - in [facility]) PUD (peptic ulcer disease) 2010 treated medically, [...] 8 hours as needed (muscle spasms). Insulin Stirling, Disposable, (PEN NEEDLE) 29 gauge x 1/2 [...] Patient education for prevention given Dee Flores APRN.[employer] documented in this encounterKindred Hospital [facility]03-04-2025 Instructions* Patient Instructions* Marielle Yang - 06/28/2024 [...] improve nasal congestion. Most drugstores in the [place] carry pseudoephedrine behind the counter, so [...] anyone within 6 feet. documented in this encounterKindred Hospital [facility]ima03-04-2025 NoteHNO ID: [id number] Author: DEMETRIS BRADFORD APRN.[employer] Service: ? Author Type: Nurse Practitioner Type: [...] disorder (just had APPT drawn - in [facility]) PUD (peptic ulcer disease) 2009 treated [...] 8 hours as needed (muscle spasms). Insulin Stirling, Disposable, (PEN NEEDLE) 29 gauge x 1/2 [...] as needed f (more content not included)... [facility]03-04-2025 History of Present illness Narrative* Demetris Bradford, EMORY.[facility] - 06/28/2024 4:09 PM EST AUTUMN [...] disorder (just had APPT drawn - in [facility] - [facility]) PUD (peptic ulcer disease) 2010 treated [...] 8 hours as needed (muscle spasms). Insulin Stirling, Disposable, (PEN NEEDLE) 29 gauge x 1/2 [...] INHALATIONAL SPACING DEVICE Marielle Yang TEACHING PROVIDER (Physician/PA/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) NOTE OF PERSONAL INVOLVEMENT IN CARE: I have personally seen and examined the patient and performed the medical decision-making components. I have reviewed the Advanced Practice Registered Nurse (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) Student's documentation and verified the findings in the note as written. Any additions or changes are noted in bold/italics. Signature: Demetris Bradford Date: 06/28/2024 Time: 4:47 PM documented in this encounterKindred Hospital [facility]02-11-2025 NotePatient Outreach (FAMPWS) SAMMY REDD ([id number]) 1980 F Date Time Provider Department 06/07/24 [...] Date Reviewed: 05/05/2024 Reviewed by: 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 APRN.[employer] - Fully Assessed Visit Diagnosis:Encounter for screening mammogram for breast cancer [Z12.31] Order(s):[facility] SCREENING [facility]O [[id number]] Order #: [id number] FUTURE Prescriptions as of 07/08/2024 - ondansetron [...] hours as needed (muscle spasms). - Insulin Stirling, Disposable, (PEN NEEDLE) 29 gauge x 1/2 [...] bite [W57.XXXA] 10/21/2016 11 (more content not included)...[facility]01-09-2025 NoteHNO ID: [id number] Author: BRANDI QUINTEROS APRN.[employer] Service: ? 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 Using ice [...] disorder (just had APPT drawn - in [facility]) PUD (peptic ulcer disease) 2009 treated [...] File Prior to Visit Medication Sig Insulin Stirling, Disposable, (PEN NEEDLE) 29 gauge x 1/2 [...] Patient agreeable to treatment plan. Brandi Rasmussen APRN.[employer] [address] [place] [address] documented in this encounterKindred Hospital [facility]12-16-2024 Telephone encounter Note * Telephone Encounter - [...] units Authorizing Provider: JOSE LUIS TOLEDO DO [facility]12-16-2024 Miscellaneous Notes* Telephone Encounter - Jose Luis [...] Jose Luis Toledo DO documented in this encounterKind[facility]12-16-2024 Telephone encounter Note * Telephone Encounter - Bev Lu MA - 04/11/2024 1:47 PM EST Patient notified. Requesting refill on Vit D 5000 international unit(s) and requesting RX for 1,000international unit(s). Orders pended. Bev Lu MA [facility]12-16-2024 Telephone encounter Note* Telephone Encounter - Jose Luis Toledo DO - 04/11/2024 7:12 AM EST Please inform patient that her ECHO is overall stable. Unchanged from previous testing Please inform patient that her labs are stable except recommend to increase vitamin D3 by extra 1000 international unit(s) a day with a meal Jose Luis Toledo DO [facility]12-12-2024 Telephone encounter Note* Telephone Encounter - Carol Elder LPN - 04/07/2024 10:06 AM EST Spoke with pt gave information provided. Pt voices understanding. [facility]12-12-2024 Miscellaneous Notes* Telephone Encounter - Carol Elder [...] need for FNA. Thank you, 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 APRN.[employer] documented in this encounterKindred Hospital [facility]12-12-2024 Telephone encounter Note * Telephone Encounter - 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 APRN.CNP - 04/07/2024 9:34 AM EST Please call patient and let her know that thyroid US showed one very small thyroid nodule to L sidethat has no change from prior ultrasounds. Continue to monitor. No need for FNA. Thank you, 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 APRN.[employer] [facility]12-10-2024 History of Present illness Narrative* Rajani Mcqueen [...] PATIENT PRESENTS WITH AN IMPLANTABLE OR ATTACHED ICT SYSTEMS TEST ENGINEER: No RADIOLOGY DEPARTMENT: Ultrasound PERIPHERAL IV DATA: Not applicable SIGNED BY: Rajani Mcqueen RDMS T April 05, 2024 10:10 AM documented in this encounterKindred Hospital [facility]12-10-2024 NoteHNO ID: [id number] Author: RAJANI MCQUEEN RDMS Service: ? Author Type: Rn Postpartum Type: Progress Notes Filed: 04/05/2024 10:11 Note [...] PATIENT PRESENTS WITH AN IMPLANTABLE OR ATTACHED ICT SYSTEMS TEST ENGINEER: No RADIOLOGY DEPARTMENT: Ultrasound PERIPHERAL IV DATA: Not applicable SIGNED BY: Rajani Mcqueen RDMS T April 05, 2024 10:10 [facility]12-09-2024 NoteHNO ID: [id number] Author: JOSE LUIS TOLEDO, DO Service: ? [...] of VIET and BSO. Was seen by DRIVER TRAINEE whom didn't feel this was related to [...] disorder (just had APPT drawn - in [facility]) PUD (peptic ulcer disease) 2009 treated [...] tablet by mouth on (more content not included)...[facility]12-09-2024 History of Present illness Narrative* Jose Luis [...] of VIET and BSO. Was seen by DRIVER TRAINEE whom didn't feel this was related to [...] disorder (just had APPT drawn - in [facility]) PUD (peptic ulcer disease) 2009 treated [...] 346.80, ICD10: G43.809 rx refilled, chronic - IOHJWQEIEO-WCUVNHBMDIUAD-VSVZBRVD 50 MG-325 MG-40 MG CAPSULE 8. Vitamin [...] See patient instructions. Jose Luis Toledo DO [address] [place] [address] documented in this encounterKindred [facility]10-15-2024 Telephone encounter Note * Telephone Encounter - Bertha Rivera LPN - 02/09/2024 1:02 PM EDT Pt. informed via my Chart. [facility]10-15-2024 Miscellaneous Notes* Telephone Encounter - Bertha Sarmiento LPN - 02/09/2024 1:02 PM EDT Pt. informed via my Chart. * Telephone Encounter - Jose Luis Toledo DO - 02/09/2024 10:50 AM EDT Please inform patient that CT abd/pelvis is normal appearing Jose Luis Toledo DO documented in this encounterKindred Hospital [facility]ima10-15-2024 Telephone encounter Note * Telephone Encounter - Jose Luis Toledo DO - 02/09/2024 10:50 AM EDT Please inform patient that CT abd/pelvis is normal appearing Jose Luis Toledo DO [facility]09-24-2024 Telephone encounter Note* Telephone Encounter - Bertha Rivera LPN - 01/19/2024 4:52 PM EDT Pt. informed via My Chart. [facility]-24-2024 Miscellaneous Notes* Telephone Encounter - Bertha Sarmiento [...] saying I have refills but I called [facility] and they said i don't cause they filled them all at once. I called the nurse and she is saying I should still have refills. [facility] pharmacy says no cause its compound medicine [...] you refill the 0.05? documented in this encounterKindred Hospital [facility]09-24-2024 Telephone encounter Note * Telephone Encounter - [...] daily Authorizing Provider: JOSE LUIS TOLEDO DO [facility]09-19-2024 Telephone encounter Note* Telephone Encounter - Giana Alicea MA - 01/14/2024 12:55 PM EDT Please see pt message -- Mariluz, I sent message for a Perscription of 0.05 of my LDN cause I can't level up from 2mg to 4mg its a big jump. Nurse wrote back saying I have refills but I called [facility] and they said i don't cause they filled them all at once. I called the nurse and she is saying I should still have refills. [facility] pharmacy says no cause its compound medicine [...] Dec or can you refill the 0.05? [facility] Telephone encounter Note* Telephone Encounter - Giana Alicea MA - 01/14/2024 12:53 PM EDT Turned into TE Giana Alicea MA [facility]09-19-2024 Miscellaneous Notes* Telephone Encounter - Giana Alicea MA - 01/14/2024 12:53 PM EDT Turned into TE Giana Alicea MA documented in this encounterKindred Hospital [facility]ima09-19-2024 History of Present illness Narrative* Reef Evens [...] PATIENT PRESENTS WITH AN IMPLANTABLE OR ATTACHED ICT SYSTEMS TEST ENGINEER: No ALLERGIES: Reviewed and unchanged CONTRAST ALLERGY: [...] 2024 TIME: 2:59 PM documented in this encounterKindred Hospital [facility]ima09-17-2024 Telephone encounter Note * Telephone Encounter - Leo Rubio RN - 01/12/2024 2:24 PM EDT Patient reports [facility] pharmacy tells her they never received the Rx for naltrexone 0.5 mg. Advised Rxwas sent to [facility] pharmacy on 11-26-23 for 30 cap and 2 refills and receipt states they received it. Patient will call pharmacy, to confirm. [facility]-17-2024 Miscellaneous Notes* Telephone Encounter - Leo Rubio RN - 01/12/2024 2:24 PM EDT Patient reports [facility] pharmacy tells her they never received the Rx for naltrexone 0.5 mg. Advised Rxwas sent to [facility] pharmacy on 11-26-23 for 30 cap and 2 refills and receipt states they received it. Patient will call pharmacy, to confirm. documented in this encounterKindred Hospital [facility]09-10-2024 History of Present illness Narrative* Jose Luis [...] of VIET and BSO. Was seen by DRIVER TRAINEE whom didn't feel this was related to [...] disorder (just had APPT drawn - in [facility]) 2010: PUD (peptic ulcer disease) Comment: treated [...] See patient instructions. Jose Luis Toledo DO [address] [place] [address] documented in this encounterKindred Hospital [facility]ima09-09-2024 Instructions* Patient Instructions* Jose Luis Toledo DO - 01/04/2024 2:31 PM EDT At least vitamin B6 50-100 mg a day Within a B complex daily in the morning Vitamin D3 at least 2000 international unit(s) a day Vitamin K2 50 mg Magnesium 250-500 mg [place] Continuous Miner Operator Helper Dr. Rm Garza documented in this encounterKindred Hospital [facility]ima08-01-2024 History of Present illness Narrative* Dee Flores APRN.[employer] - 11/26/2023 12:08 PM EDT Chief Complaint [...] disorder (just had APPT drawn - in [facility]) 2009: PUD (peptic ulcer disease) Comment: treated [...] - LORAZEPAM 1 MG TABLET Dee Flores APRN.[employer] documented in this encounterKindred Hospital [facility]ima07-30-2024 Telephone encounter Note * Telephone Encounter - Zenaida Cheney MA - 11/24/2023 9:52 AM EDT Notified of below via [employer]. Zenaida Cheney MA [facility]07-30-2024 Miscellaneous Notes* Telephone Encounter - Zenaida Cheney MA - 11/24/2023 9:52 AM EDT Notified of below via [employer]Send[employer]. Zenaida Cheney MA * Telephone Encounter - Jose Luis Toledo DO - 11/23/2023 5:05 PM EDT would recommend appt for this to be discussed or considered Jose Luis Toledo DO * Telephone Encounter - Giana Alicea MA - 11/17/2023 7:35 AM EDT Images from the original note were not included. Please see provider message -- Sammy Nickerson [facility] My Chart Rx Pool (supporting Jose Luis Toledo DO)12 hours ago (6:36 PM) CW I seen the diesel truck crane operator and you said to message you after [...] with you also. Thanks! documented in this encounterKindred Hospital [facility]ima07-29-2024 Telephone encounter Note * Telephone Encounter - Jose Luis Toledo DO - 11/23/2023 5:05 PM EDT would recommend appt for this to be discussed or considered Jose Luis Toledo DO [facility]07-25-2024 Telephone encounter Note* Telephone Encounter - Dee Flores APRN.CNP - 11/19/2023 2:40 PM EDT See separate encounter from 11/16. Closing this encounter. Dee Flores APRN.JOI [facility]07-25-2024 Miscellaneous Notes* Telephone Encounter - Dee Flores [...] she said to message her after my diesel truck crane operator appt to start the low dose naltrexone. I had my appt. So I'm messaging you to get the prescription. Thank you! documented in this encounterKindred Hospital [facility]ima07-23-2024 Telephone encounter Note * Telephone Encounter - [...] was identified. 11/17/2023 by Dee Flores CNP. [facility]07-23-2024 Miscellaneous Notes* Telephone Encounter - Dee Flores APRN.CNP - 11/17/2023 3:13 PM EDT The following approved medication requests have been transmitted electronically. Requested Prescriptions Signed Prescriptions Disp Refills lisdexamfetamine (VYVANSE) 20 mg capsule 30 capsule 0 Sig: Take 1 capsule by mouth once daily for 30 days. In the morning Authorizing Provider: DEE FLORES APRN.CNP [facility] [facility] website checked and validated. All [...] you. Bertha Rivera LPN. documented in this encounterKindred Hospital [facility]07-23-[facility]24 Telephone encounter Note * Telephone Encounter - Giana Alicea MA - 11/17/2023 7:35 AM EDT Images from the original note were not included. Please see provider message -- Sammy Navas Famp My Chart Rx Pool (supporting Jose Luis Toledo DO)12 hours ago (6:36 PM) CW I seen the diesel truck crane operator and you said to message you after to get the prescription for the low dose naltrexone. So I'm just checking in to see about getting it. When I came in with Sarah for her apptwith mark she said to message her and she would check with you. So I did message her but now I'm checking in with you also. Thanks! [facility] Telephone encounter Note* Telephone Encounter - Giana Alicea MA - 11/17/2023 7:34 AM EDT Turned into TE Giana Alicea MA [facility]-23-2024 Miscellaneous Notes* Telephone Encounter - Giana Alicea MA - 11/17/2023 7:34 AM EDT Turned into TE Giana Alicea MA documented in this encounterKindred Hospital [facility]07-22-2024 Telephone encounter Note * Telephone Encounter - [...] Please advise. Thank you. Bertha Rivera LPN. [facility]-19-2024 Telephone encounter Note* Telephone Encounter - Juanita Garrido - 11/13/2023 9:12 AM EDT Called patient on November 13, 2023 at 9:12 AM to schedule their MSK US exam. No answer, left VM, 3rd attempt. [facility] Miscellaneous Notes* Telephone Encounter - Juanita Garrido [...] FACILITY Slot held: N/A documented in this encounterKindred Hospital [facility]07-18-2024 Telephone encounter Note * Telephone Encounter - Zenaida Cheney MA - 11/12/2023 11:48 AM EDT Pt sends message below, advised to turn into phone encounter for PCP to review per Ryne Quinteros. The last time I was in to see Tre she said to message her after my diesel truck crane operator appt to start the low dose naltrexone. I had my appt. So I'm messaging you to get the prescription. Thank you! [facility] Telephone encounter Note* Telephone Encounter - Zenaida Cheney MA - 11/12/2023 11:47 AM EDT See TE 11/12/23 Zenaida Cheney MA [facility]-18-2024 Miscellaneous Notes* Telephone Encounter - Zenaida Cheney [...] message Giana Alicea MA documented in this encounterKindred Hospital [facility]07-18-2024 Telephone encounter Note * Telephone Encounter - 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 APRN.CNP - 11/12/2023 11:43 AM EDT Please turn this into telephone encounter so Dr. Toledo sees this. I am not sure on dosage or howshe would like to prescribe this. Thank you, 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 APRN.[employer] [facility] Work Phone: [phone]) 246-250707-18-2024 Telephone encounter Note* Telephone Encounter - Juanita Garrido - 11/12/2023 9:44 AM EDT Called patient on November 12, 2023 at 9:44 AM to schedule their MSK US exam. No answer, left VM, 2nd attempt. [facility]17[facility] Telephone encounter Note* Telephone Encounter - Giana Alicea MA - 11/11/2023 5:36 PM EDT Please see message Giana Alicea MA [facility] Telephone encounter Note* Telephone Encounter - Juanita Garrido - 11/11/2023 1:47 PM EDT Called patient on November 11, 2023 at 1:47 PM to schedule their MSK US exam. No answer, left VM, 1st attempt. [facility] Telephone encounter Note* Telephone Encounter - Xochitl Garcia PCNA - 11/11/2023 12:48 PM EDT Visit Type: MSK SYN Visit Length: 45, 50 OR 60 MINUTES Order Name/Protocol: US HAND/WRIST SYNOVIAL SCREEN RT+LT Preferred Provider: N/A Comment: N/A Location: ANY FACILITY Slot held: N/A [facility] Telephone encounter Note* Telephone Encounter - Chen Atkins - 11/11/2023 12:46 PM EDT US HAND/WRIST SYNOVIAL SCREEN LEFT (Order #[id number]) on 11/11/23 US HAND/WRIST SYNOVIAL SCREEN RIGHT (Order #[id number]) on 11/11/23 [facility]-17-2024 Miscellaneous Notes* Telephone Encounter - Chen Atkins - 11/11/2023 12:46 PM EDT US HAND/WRIST SYNOVIAL SCREEN LEFT (Order #[id number]) on 11/11/23 US HAND/WRIST SYNOVIAL SCREEN RIGHT (Order #[id number]) on 11/11/23 documented in this encounterKindred Hospital Lima07-17-2024 Instructions* Patient Instructions* Naveen Mora MD - 11/11/2023 12:28 PM EDT Please let Dr. Toledo know if you need a referral to PT for joint protection strategies for hypermobility ___ Joint Protection Program for the Upper Limb Author Gregorio Brown MD Section Pin Ball Machine Mechanic Efrain Beal MD [place] Pin Ball Machine Mechanic Mikhail Morales MD All topics are updated [...] you under stress: are you clenching your computer operations manager unnecessarily firmly? Hand and wrist Have you done any prolonged repetitive activity? Has your job changed? Have you engaged in a new hobby, sport, or exercise? Are you under stress; are you clenching your computer operations manager unnecessarily firmly? Personality assessment may also be [...] overuse, use frequent rest breaks. Relax your computer operations manager between strokes. Maintain shoulder strength through exercise; [...] kitchen aids such as jar openers, enlarged payroll secretary on utensils, or power tools. Take periodic breaks and alternate tasks during manual activities. Use a light and two handed computer operations manager when shaking hands repeatedly. Avoid prolonged use of tools requiring twist/force motions. Hold tools with a relaxed computer operations manager. Use foam or plastic pipe insulation (sold at 50 Cubes) on tool handles. Take frequent short breaks. Do not lean directly on elbows; stabilize with the forearms. Change to a better work position or use elbow pads for protection. Use proper computer operations manager and play techniques with golf clubs, racquets, bats, or other pieces of sports equipment. Consult a pro for computer operations manager problems. Use elbow protective equipment when playing [...] objects instead of lifting them. Use pencil payroll secretary and pad the stapler. Keep the hands off chairs when arising. Be aware of hand clenching and wear stretch gloves to bed when nocturnal hand clenching is recognized. Interrupt lengthy writing sessions by stopping for 1 to 2 minutes every 10 minutes. Use a relaxed computer operations manager on tools. Enlarge the handles of work tools; a 0.9 cm (2.25 in) diameter is optimum for most people. Texturize handle surfaces to provide an easy hold with less computer operations manager. Bend and straighten (wiggle) your fingers and [...] modifying or adaptingtools and equipment. Use proper computer operations manager size for racquet sports or golf. Golfers with arthritis should try using cushion payroll secretary and the baseball computer operations manager style (no interlocking fingers). Relax the computer operations manager until just before ball impact. Consult a pro for computer operations manager problems. Use a bowling ball with five [...] and had asignificantly greater mean increases in computer operations manager strength. Joint protection advice also appears to [...] physical and/or occupational therapist. RESOURCES For patients www.[facility].ca/[facility]/programs/arthritic/general/tips.htm [facility] www.arthritis.org Has many free booklets that provide useful information for patients www.Baby Blendy.Flint Provides general information including: Ask the Expert, Medical Library, Message Boards & More http://www.rheumatology.org/practice/clinical/patients/index.asp Written by rheumatologists http://orthopedics.about.com/ Written by orthopaedists www.ccmts.ca [place] for Occupational Health and Safety www.Cloud Lending.Flint/rsi.html A commercial website with helpful information: hand and wrist problems arising from use of computers and other office devices www.rsi.corinna.huron.edu A website for repetitive strain injuries; maintained by [employer] students, very helpful (with illustrations) www.TaxiForSure.com A catalog of energy saving devices www.[employer] Joint Protection Program for the Lower Limb Authors ANJEL Rivers MD Section Pin Ball Machine Mechanic Gregorio Whitman MD [place] Pin Ball Machine Mechanic Mikhail Morales MD All topics are updated [...] [4]. This study, using data from the [employer] ([place]) study, defined good shoes as low-risk shoes, [...] broaden out during weight- bearing. A certified phlebotomy specialist can constructcustom shoes, with a doctor s prescription, for patients with structural foot deformities. In addition, orthotics may be obtained from a [employer] with the advice and assistance of a treating physical therapist or crochet machine operator. If a patient has a structural deformity [...] or pain at the forefoot. A certified nurse can make a custom fit orthotic with a metatarsal pad. A metatarsal pad helps unload the metatarsal heads, which can decrease pain at the forefoot. Metatarsal pads can be purchased over the counteror online; however, patients with special foot care needs or foot deformities may need to have a cus ludwig fit metatarsal pad made by an ring barker operator. Footwear that is especially designed for a particular sport should be used for participation in that activity. In patients who do not respond with a reduction in pain to the more simple measures described above, we recommend evaluation by a crochet machine operator. Orthoses can provide needed support and positioning assistance. We suggest consultation with an experienced professional regarding the choice of an orthosis, whether having it custom made or obtaining it ncjq-asd-nieerrs. For patients with structural foot deformities, custom orthoses can be fit andmade by a certified nurse, physical therapist, crochet machine operator, or a certified phlebotomy specialist, with the appropriate prescription from a crochet machine operator (or physical therapist). Orthoses should then be [...] which can be made by a certified nurse, phlebotomy specialist, or physical therapist with a prescription or by a crochet machine operator, are: More effective than no intervention for [...] role in joint protection. Results from a pilot plant operator study on an ergonomic assessment tool for [...] for knee protection include [1]: Use a radio mechanic apprentice's or milker's stool when working on the [...] and joints. Avoid deep knee bending; use business analysis analyst tools for assistance. Simplify work by using [...] be effective and can form the basis of[facility]public [facility] health practice [20]. A 2007 systematic review [...] FOR TASK-RELATED PAIN (OCCUPATIONAL INJURIES) For patients: www.Baby Blendy.Flint Provides general information including: Ask the Expert, [...] a sp ecific diagnosis and does not currency exchange specialist, and so may not be necessary. Many [...] roughage, fresh fruits and vegetables is encouraged. Bwnq-nlx-yhiirks treatments for constipation may be helpful if necessary. Gastroesophageal reflux disease (GERD) is also common and can be treated with gqoc-ufn-ouajwaw medications as well. More difficult to manage [...] dental crowding. They may require a palate ve teacher or tooth extraction to allow space for [...] Hypermobility Spectrum disorder. The web address is www.Kudoalas.Flint. ___ Treatment Recommendations for Fibromyalgia developed by [...] with proven efficacy in fibromyalgia are the lvjwt-8-qemam ligands, Neurontin (gabapentin) and Lyrica (pregabalin). This [...] highly recommend patients make use of the [employer] website, (www.Battlepro.Flint), that provides a self-management program for people living with fibromyalgia. When tested in a trial, this was shown to be quite effective at improving symptoms. documented in this encounterKindred Hospital Lima07-17-2024 History of Present illness Narrative* Naveen Mora MD - 11/11/2023 11:46 AM EDT On 11/11/2023, [facility] Sammy Redd was referred by Dee Flores for an opinion and adviceregarding joint pain. My findings and final recommendations will be communicated to the requesting health care provider by way of the shared medical record for internal providers or letter via the [employer] for external providers. 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 Negative ZACHARIAH Titer Negative 1:80 ! Negative ZACHARIAH Pattern Speckled Not applicable for negative result. CCP Antibody IgG Qualitative Negative Negative Negative CCP Antibody, IgG <20 Units <15 <15 Anti-Sm <1.0 AI <0.2 <0.2 IMMIGRATION MANAGER Antibody QUAL Negative Negative Negative Anti-IMMIGRATION MANAGER <1.0 AI <0.2 <0.2 SSA Antibody Qual Negative Negative Negative Anti-SSA <1.0 AI <0.2 <0.2 Anti-SSB <1.0 AI <0.2 <0.2 SSB Antibody Qual Negative Negative Negative CENTROMERE AB QUAL Negative Negative Negative Scleroderma Ab Qual Negative Negative Negative Scl-70 Abs, EIA <1.0 AI <0.2 <0.2 SUSAN 1 ANTIBODY QUAL Negative Negative Negative Ribosomal IMMIGRATION MANAGER Qualitative Negative Negative Negative Ribosomal IMMIGRATION MANAGER Ab <1.0 AI <0.2 <0.2 Chromatin Ab [...] Check US wrists/hands. Notify of results via Progeniqhart 2. Benign joint hypermobility syndrome: Meets [place] [...] which included preparing to see the patient, xkmq-vf-whdq patient care, completing clinical documentation, obtaining and/or [...] with proven efficacy in fibromyalgia are the zuzdq-2-yygnp ligands, Neurontin (gabapentin) and Lyrica (pregabalin). This [...] highly recommend patients make use of the [employer] website, (www.Battlepro.[place]), that provides a self-management program for people living with fibromyalgia. When tested in a trial, this was shown to be quite effective at improving symptoms. documented in this encounterKindred Hospital [facility]ima06-11-2024 Telephone encounter Note * Telephone Encounter - [...] Please advise. Thank you. Giana Alicea MA. [facility]24 Miscellaneous Notes* Telephone Encounter - Giana Alicea [...] you. Giana Alicea MA. documented in this encounterKindred Hospital [facility]ima06-07-2024 Telephone encounter Note * Telephone Encounter - Karuna Reeves - 10/02/2023 2:23 PM EDT Called and spoke with patient. Informed her of message. Verbalized understanding and thanks. Karuna Reeves CMA [facility]-07-[facility] Telephone encounter Note* Telephone Encounter - Karuna Reeves - 10/02/2023 2:23 PM EDT ----- Message from Shahnaz De León MA sent at 10/01/2023 9:40 AM EDT ----- Left vm for pt to call office back. Shahnaz De León MA ----- Message ----- From: Perlita Cunningham APRN.[employer] Sent: 10/01/2023 9:30 AM EDT To: [facility] Clinical Pool CT did not show any kidney stones. Thanks, Perlita Cunningham APRN.[employer] [facility]-07[facility] Miscellaneous Notes* Telephone Encounter - Karuna Reeves - 10/02/2023 2:23 PM EDT Called and spoke with patient. Informed her of message. Verbalized understanding and thanks. Karuna Reeves CMA * Telephone Encounter - Kaurna Reeves - 10/02/2023 2:23 PM EDT ----- Message from Shahnaz De León MA sent at 10/01/2023 9:40 AM EDT ----- Left vm for pt to call office back. Shahnaz De León MA ----- Message ----- From: Perlita Cunningham APRN.[employer] Sent: 10/01/2023 9:30 AM EDT To: [facility] Clinical Pool CT did not show any kidney stones. Thanks, Perlita Cunningham APRN.[employer] documented in this encounterKindred Hospital Lima06-06-2024 Telephone encounter Note * Telephone Encounter - Shahnaz De León MA - 10/01/2023 11:08 AM EDT Pt called and left a vm stating she was calling us back. I do not see an encounter. Shahnaz De León MA [facility]-06-2024 Miscellaneous Notes* Telephone Encounter - Shahnaz Callejas MA - 10/01/2023 11:08 AM EDT Pt called and left a vm stating she was calling us back. I do not see an encounter. Shahnaz De León MA documented in this encounterKindred Hospital [facility]ima06-04-2024 History of Present illness Narrative* Jose Luis [...] Cuadra, et al. 2017 Guidelines of the [place] Thyroid Association for the Diagnosis and Management [...] disorder (just had APPT drawn - in [facility]) PUD (peptic ulcer disease) 2009 treated [...] - ICD9: 729.81, ICD10: M79.89 F/u with Mobile Solutions Architect 7. Stiffness of hand joint, unspecified laterality [...] See patient instructions. Jose Luis Toledo DO [address] [place] [address] documented in this encounterKindred Hospital Lima06-04-2024 History of Present illness Narrative* Cynthia Hoang CT - 09/29/2023 2:20 PM EDT Radiology Service Progress Note PATIENT NAME: Sammy TIERNEYN: [id number] DATE OF SERVICE: September 29, 2023 TIME: [...] PATIENT PRESENTS WITH AN IMPLANTABLE OR ATTACHED ICT SYSTEMS TEST ENGINEER: No RADIOLOGY DEPARTMENT: CT; Exam(s) Completed: Abdomen/Pelvis PERIPHERAL IV DATA: Not applicable SIGNED BY: PRITI Avalos September 29, 2023 2:49 PM documented in this encounterKindred Hospital Lima05-28-2024 NoteHNO ID: [id number] Author: NELIDA IRVING APRN.[employer] Service: ? Author Type: Nurse Practitioner Type: Progress Notes Filed: 09/22/2023 09:44 Note Text: [facility] ESTABLISHED PATIENT OFFICE VISIT Patient presents with: [...] disorder (just had APPT drawn - in [facility]) PUD (peptic ulcer disease) 2009 treated [...] Cancer Sister Diabetes Brother (more content not included)...[facility]05-28-2024 History of Present illness Narrative* Nelida Irving, EMORY.[employer] - 09/22/2023 9:03 AM EDT Images from the original note were not included. [facility] ESTABLISHED PATIENT OFFICE VISIT Patient presents with: [...] disorder (just had APPT drawn - in [facility]) PUD (peptic ulcer disease) 2010 treated medically, [...] extrapolated by contextual derivation. documented in this encounterKindred Hospital Lima05-23-2024 History of Present illness Narrative* Rebeca Durán, [...] PATIENT PRESENTS WITH AN IMPLANTABLE OR ATTACHED ICT SYSTEMS TEST ENGINEER: No RADIOLOGY DEPARTMENT: General X-ray: Exam(s) Completed: Abdomen X-Ray: Abdomen PERIPHERAL IV DATA: Not applicable SIGNED BY: RT Nicole(R) September 17, 2023 11:21 AM documented in this encounterKindred Hospital [facility]ima05-23-2024 Telephone encounter Note * Telephone Encounter - Sunitha Clarke OCCA - 09/17/2023 10:26 AM EDT I called pt to reschedule her upcoming appointment on 09/22/23 with CHARLY Irving. Pt stated that she is still experiencing some discomfort that she thinks is from the ureteral stones. Pt wanted to keepappointment. She stated that she was going to get her KUB today. MAGDIEL Baron [facility]05-23-2024 Miscellaneous Notes* Telephone Encounter - Sunitha Clarke OCCA - 09/17/2023 10:26 AM EDT I called pt to reschedule her upcoming appointment on 09/22/23 with CHARLY Irving. Pt stated that she is still experiencing some discomfort that she thinks is from the ureteral stones. Pt wanted to keepappointment. She stated that she was going to get her KUB today. MAGDIEL Baron documented in this encounterKindred Hospital [facility]04-15-2024 Miscellaneous Notes* Telephone Encounter - Dee Flores APRN.[employer] - 08/10/2023 1:39 PM EDT Please let Sammy know that I placed the order for rheumatology as we discussed during her appt,please assist her to schedule with one of the providers requested, if possible. Dee Flores APRN.CNP documented in this encounterKindred Hospital [facility]ima04-15-2024 History of Present illness Narrative* Rebeca Durán [...] PATIENT PRESENTS WITH AN IMPLANTABLE OR ATTACHED ICT SYSTEMS TEST ENGINEER: No RADIOLOGY DEPARTMENT: General X-ray: Exam(s) Completed: Spine X-Ray(s): Thoracic and Lumbar AP / LAT / L5-S1 Lower Extremity X-Ray(s): Foot, Bilateral and Wt. Bearing Upper Extremity X-Ray(s): Hand, bilateral PERIPHERAL IV DATA: Not applicable SIGNED BY: RT Nicole(R) August 10, 2023 9:23 AM documented in this encounterKindred Hospital [facility]04-15-2024 History of Present illness Narrative* Dee Flores [...] disorder (just had APPT drawn - [facility]) PUD (peptic ulcer disease) 2010 treated [...] DISEASE Dee Flores APRN.JOI documented in this encounterKindred Hospital [facility]ima04-10-2024 Miscellaneous Notes* Telephone Encounter - 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 [...] for 30 days. Authorizing Provider: BRANDI QUINTEROS APRN.[employer] * Telephone Encounter - Carol Elder LPN [...] you. Carol Elder LPN. documented in this encounterKindred Hospital [facility]ima03-11-2024 History of Present illness Narrative* Jose Luis [...] disorder (just had APPT drawn - [facility]) PUD (peptic ulcer disease) 2010 treated [...] See patient instructions. Jose Luis Toledo DO [address] [place] [address] documented in this encounterKindred Hospital [facility]ima02-12-2024 Miscellaneous Notes* Telephone Encounter - Dee Flores [...] you. Zenaida Cheney Ma. documented in this encounterKindred Hospital [facility]ima12-01-2023 Miscellaneous Notes* Telephone Encounter - Lilli Talley [...] she needs to do documented in this encounterKindred Hospital [facility]ima11-28-2023 History of Present illness Narrative* Nelida Irving APRN.CNP - 03/24/2023 8:00 AM EST Images from the original note were not included. [facility] ESTABLISHED PATIENT OFFICE VISIT Patient presents with: [...] disorder (just had APPT drawn - [facility]) PUD (peptic ulcer disease) 2009 treated [...] extrapolated by contextual derivation. documented in this encounterKindred Hospital [facility]ima11-28-2023 NoteHNO ID: [id number] Author: Nelida Irving APRN.CNP Service: ? Author Type: Nurse Practitioner Type: Progress Notes Filed: 03/24/2023 8:29 AM Note Text: [facility] ESTABLISHED PATIENT OFFICE VISIT Patient presents with: [...] disorder (just had APPT drawn - [facility]) PUD (peptic ulcer disease) 2010 treated [...] Hypertension Maternal Grandmother Alzheimer (more content not included)...[facility]11-15-2023 NoteHNO ID: [id number] Author: Ayaka Corey Service: ? Author Type: ? Type: Plan of Care Filed: 03/11/2023 1:32 PM Note Text: PHARMACY BEDSIDE DELIVERY SERVICE Patient Name: Sammy Redd The marked outpatient medications were Filled at: [facility] and delivered to the patient's bedside [...] Corey PAGER: [email or web address] March 11, 2023 1:19 PMLeg[facility]11-15-2023 NoteHNO ID: [id number] Author: Bev Hayes APRN.CRNA Service: Anesthesiology Author Type: Nurse Certified Wellness Program Coordinator Type: Anesthesia Procedure Notes Filed: 03/11/2023 10:44 AM Note Text: ANESTHESIOLOGY PROCEDURE NOTE Airway General Information Procedure Start Time/Medication Administration: 03/11/2023 10:30 AM Staffing Anesthesiologist: Carl Mckeon DO PLASTIC EXTRUSION OPERATOR: Bev Hayes APRN.PLASTIC EXTRUSION OPERATOR Performed by: anesthesiologist Indications and Patient Condition [...] no Airway not difficult SIGNATURE: Bev Hayes APRN.PLASTIC EXTRUSION OPERATOR PATIENT NAME: Sammy Redd DATE: March 11, 2023 TIME: 10:43 AM CSN: [id number]11-14-2023 NoteHNO ID: [id number] Author: Patricia Hogan RN Service: ? Author [...] directed. Bring copy of Living Will/Power of Line Staker. Do not smoke or chew. If you [...] the Surgery Center. UPON ARRIVAL: Access to [facility] (the [facility]) is located on [address] [place] [address]. [employer] parking is available for your convenience from [...] a time are permitted in your preoperative room.[facility]11-14-2023 NoteHNO ID: [id number] Author: Hayley Mike APRN.JOI Service: ? Author [...] updated instructions for the morning of your procedure.[facility]11-10-2023 History of Present illness Narrative* Jose Luis Toledo, - 03/06/2023 7:56 AM EST CC: Sammy Redd is a 43 year old female who presents to the office for follow up. HPI: Recently she was having flank pain and diagnosed with ureterolithiasis. She was seen at [facility] and also referred to urologist. She had [...] disorder (just had APPT drawn - in [facility] - [facility]) PUD (peptic ulcer disease) 2010 treated [...] the plan. Jose Luis Toledo DO [address] [place] [address] documented in this encounterKindred Hospital [facility]11-03-2023 Miscellaneous Notes* Telephone Encounter - Perlita Cunningham APRN.CNP - 02/27/2023 1:[address] from [place] with Dr. Barahona. R ureteral stone does [...] isabnormal. Perlita Cunningham APRN.CNP documented in this encounterKindred Hospital [facility]ima10-31-2023 Discharge summary Author David Nikhil [facility] February 24, 2023 11:08pm Note Date/Time February 24, 2023 1 0:42pm [facility] Medical Records Department [address] [place] [address] Emergency Department Summary 02/24/23 MR#: [id number] Acct: [id number] Name: SAMMY REDD Rep #:[id number] : 1980 43 From: David Tejeda DO [...] does have history of bilateral salpingectomy, hysterectomy. [facility] Medical History Arthritis Asthma Back pain Brain [...] MUSCLE SPASMS 07/09/21 [History Last Taken Unknown] rsdcgijeud-qifogiedmzqtt-vrmrshgt 50 mg-325 mg-40 mg tablet 1 tab [...] Hx of dilation and curettage S/P oophorectomy Boaz teeth extracted Social History Smoking Status: Never [...] % (Auto) 56.3 Lymph % (Auto) 35.0 [place] % (Auto) 4.4 Eos % (Auto) 3.3 [...] Clarity Cloudy Urine pH 6.5 Ur Specific Warren 1.015 Urine Protein 30 H Urine Glucose [...] 22:14 EDT Reading Location ID and State: [facility] / [place] , Service support , Discharge Plan Triage [...] mg PO DAILY PRN PRN (Reason: Anxiety) dpowrdcqnu-muptfnibmoekv-ilze 50-325-40 mg tablet 1 tab PO Q6H [...] your Primary Care Provider. Call [facility] ([phone]) or report to the closest Emergency Room. Call 911 if necessary. 02/24/232307 <Electronically signed by David Tejeda DO> Cosigner Signature (if applicable): CC: Dr. Jose Luis Toledo DO ~ Signed [facility] Work Phone: [phone] 495-621310-26-2023 Miscellaneous Notes* Telephone Encounter - Perlita Cunningham [...] her flomax. MAGDIEL Sullivan documented in this encounterKindred Hospital Lima10-25-2023 Miscellaneous Notes* Telephone Encounter - Perlita Cunningham APRN.CNP - 02/18/2023 3:22 PM EDT Tried calling pt to review KUB results- no answer. KUB still showing the ureteral stone. She does have an appt with Vicky next week, but if she was in a lot of pain I was going to discuss surgical options. Chad, Perlita Cunningham APRN.CNP documented in this encounterKindred Hospital Lima10-23-2023 History of Present illness Narrative* Rajani Mcqueen [...] 16, 2023 9:25 AM documented in this encounterKindred Hospital Lima10-19-2023 History of Present illness Narrative* Alfredo Ortega [...] care. Alfredo Ortega APRN.CNP documented in this encounterKindred Hospital Lima10-19-2023 Miscellaneous Notes* Telephone Encounter - Gideon Gonzalez [...] advise Gideon Gonzalez MA documented in this encounterKindred Hospital Lima10-16-2023 NoteHNO ID: [id number] Author: Vicky Crowley APRN.JOI Service: ? Author Type: Nurse Practitioner Type: Progress Notes Filed: 02/09/2023 11:45 AM Note Text: [facility] NEW CONSULT HISTORY AND PHYSICAL EXAMINATION [...] (2015), Dr. Colin (-2008), previous urologist in [facility] Hx of kidney stones: yes, Family [...] kidney stones tiZANidine (ZANAFL (more content not included)...[facility] 02-09-2023 History of Present illness Narrative* DenicefarazJorge bergbridgett Bailey, 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.[employer] - 02/09/2023 11:00 AM EDT [facility] NEW CONSULT HISTORY AND PHYSICAL EXAMINATION [...] (2015), Dr. Colin (-2008), previous urologist in [facility] Hx of kidney stones: yes, Family [...] Protein: negative pH: 6.0 Blood: moderate Specific Warren: 1.015 Ketones: negative Bilirubin: negative Glucose: negative [...] staff. Vicky Crowley APRN.CNP documented in this encounterKindred Hospital Lima10-12-2023 NoteHNO ID: [id number] Author: Elpidio Márquez CT Service: Radiology Author [...] BY: PRITI Pisano February 05, 2023 8:52 [facility]MS[facility] History of Present illness Narrative* Elpidoi Márquez CT - 02/05/2023 9:00 AM EDT [...] 05, 2023 8:52 AM documented in this encounterKindred Hospital Lima10-09-2023 History of Present illness Narrative* Brandi Qiunteros APRN.[employer] - 02/02/2023 2:40 PM EDT Chief Complaint [...] suspiciousactivity was identified. 02/02/2023 by 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 APRN.[employer] 4. Flank pain - ICD9: 789.09, ICD10: R10.9 See plan above. - CT FLANK WO IVCON - CONSULT TO UROLOGY RTO as needed. Prescription instructions reviewed with patient as applicable. Potential red flag symptoms discussed with the patient. Reviewed appropriate action plan to take if red flag symptoms occur. Patient agreeable to treatment plan. Brandi Rasmussen APRN.CNP [address] [place] [address] documented in this encounterKindred Hospital Lima10-05-2023 Miscellaneous Notes* Telephone Encounter - 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 [...] 2 REFILLS Last labs--05/19/22 documented in this encounterKindred Hospital Lima09-05-2023 Miscellaneous Notes* Telephone Encounter - Dayami Fang [...] you. Dayami Fang LPN documented in this encounterKindred Hospital Lima09-05-2023 Miscellaneous Notes* Telephone Encounter - Bev Lu [...] 03/03/23 Bev Lu MA documented in this encounterKindred Hospital Lima08-08-2023 History of Present illness Narrative* Jose Luis [...] with the plan. Jose Luis Toledo DO [address] [place] [address] documented in this encounterKindred Hospital Lima06-30-2023 Miscellaneous Notes* Telephone Encounter - Reed Myers MD - 10/24/2022 10:34 AM EDT OK to refill as ordered Reed Myers MD * Telephone Encounter - Zenaida Cheney Ma - 10/24/2022 10:20 AM EDT Last office visit: F/u scheduled: 11/10/22 Last refilled on: Adipex #30 on 09/30/22 Zenaida Cheney Ma documented in this encounterKindred Hospital Lima06-19-2023 Miscellaneous Notes* Telephone Encounter - Barbara Ortega - 10/13/2022 10:20 AM EDT Patients appointment was rescheduled from 10/30/22 to 11/10/22 will need medications before this date. This is the 3 month appt . Pt will call a few days prior to appt for refill. documented in this encounterKindred Hospital Lima05-04-2023 Miscellaneous Notes* Telephone Encounter - Dee Flores APRN.[employer] - 08/28/2022 4:36 PM EDT The following [...] advise. Chelsea Sanchez LPN documented in this encounterKindred Hospital Lima04-20-2023 Nurse Note* Giana Alicea - 08/14/2022 4:32 PM EDT Patient given albuterol nebulizer treatment in office and tolerated well. Giana Alicea MA documented in this encounterKindred Hospital Lima04-20-2023 History of Present illness Narrative* Dee Flores [...] abnormality. Dictated by : MD Ry GUO APRN.[employer] Today: Doesn't necessarily feel sick but breathing [...] Vaginal lesion - ICD9: 623.8, ICD10: N89.8 [place]-size to labia minora, non fluctuant. Will utilize doxycycline for this lesion as well as possible bronchitis as mentioned above. Dee Flores APRN.JOI PDMP website checked and validated. All prescriptions have been APPROPRIATELY filled. No suspiciousactivity was identified. 08/14/2022 by Dee Flores CNP. documented in this encounterKindred Hospital Lima04-14-2023 Miscellaneous Notes* Telephone Encounter - Marti Quiles Ma - 08/08/2022 7:48 AM EDT Patient was left vm and already seen results on mychart Marti Quiles Ma * Telephone Encounter - Nafisa Nicole APRN.[employer] - 08/08/2022 7:11 AM EDT Negative for COVID and flu please notify documented in this encounterKindred Hospital Lima04-13-2023 History of Present illness Narrative* Ry Chong APRN.[employer] - 08/07/2022 5:09 PM EDT Subjective HPI [...] MD Ry GUO APRN.JOI documented in this encounterKindred Hospital Lima04-06-2023 Instructions* Patient Instructions* Dee Flores APRN.JOI - [...] diet ideas. Super B-complex documented in this encounterKindred Hospital Lima04-06-2023 History of Present illness Narrative* Dee Flores [...] call if this is needed. Dee Flores APRN.[employer] documented in this encounterKindred Hospital Lima03-06-2023 History of Present illness Narrative* Jose Luis [...] with the plan. Jose Luis Toledo DO [address] [place] [address] documented in this encounterKindred Hospital Lima02-22-2023 Miscellaneous Notes* Telephone Encounter - Dee Flores [...] you. Bertha Rivera LPN documented in this encounterKindred Hospital Lima02-21-2023 Miscellaneous Notes* Telephone Encounter - Bertha Rivera [...] you. Bertha Rivera LPN documented in this encounterKindred Hospital Lima01-23-2023 Miscellaneous Notes* Telephone Encounter - Mary Bates LPN - 05/19/2022 12:56 PM EST Unable to close encounter. Message states there is an incomplete note by provider. Mary Bates LPN * Telephone Encounter - Mary [...] Jose Luis Toledo DO documented in this encounterKindred Hospital Lima01-23-2023 History and physical note * Nelida Jimenez [...] 19, 2022 9:32 AM documented in this encounterKindred Hospital Lima01-23-2023 History of Present illness Narrative* Nelida Jimenez [...] 19, 2022 9:28 AM documented in this encounterKindred Hospital Lima01-23-2023 History of Present illness Narrative* Rajani Mcqueen [...] Not applicable SIGNED BY: Rajani Mcqueen RDMS [facility] May 19, 2022 9:49 AM documented in this encounterKindred Hospital Lima01-23-2023 Miscellaneous Notes* Telephone Encounter - 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 APRN.CNP - 05/19/2022 9:13 AM EST Done in other TE. Thank you, 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 APRN.CNP * Telephone Encounter - Mary Bates LPN - 05/19/2022 9:03 AM EST Labs need re-ordered. Mary Bates LPN documented in this encounterKindred Hospital Lima01-23-2023 Miscellaneous Notes* Telephone Encounter - 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 APRN.CNP - 05/19/2022 9:09 AM EST New labs are placed. 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 APRN.CNP documented in this encounterKindred Hospital Lima01-23-2023 History of Present illness Narrative* Evens Stacy [...] 19, 2022 11:56 AM documented in this encounterKindred Hospital [facility]ima01-16-2023 History of Present illness Narrative* Jose Luis Toledo DO - 05/12/2022 10:29 AM EST CC: Sammy Redd is a 42 year old female who presents to the office for follow up HPI: Seen in office on 02/05/2022, at that time Overall she is feeling okay, she is day 9 post op from bilateral oophorectomy for ovarian cyst/masses by Dr. Xi Camacho at [facility]. She had laparoscopic vaginal assisted surgery. Struggling [...] ICD9: 625.8, ICD10: N94.9 - f/u with DRIVER TRAINEE whom performed hysterectomy and oophorectomy recently Jose [...] with the plan. Jose Luis Toledo DO [address] [place] [address] documented in this encounterKindred Hospital [facility]ima11-07-2022 History of Present illness Narrative* Evens Stacy [...] 2022 TIME: 12:47 PM documented in this encounterKindred Hospital Lima11-03-2022 History of Present illness Narrative* Dee Flores APRN.[employer] - 02/27/2022 12:02 PM EDT Chief Complaint [...] in her stool. 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 Past medical [...] CULTURE - OCCULT BLD EXAM-DIAG Dee Flores APRN.[employer] documented in [place] encounterWendy [place] [address]-28-2022 Miscellaneous Notes* Telephone Encounter - Giana Perdue Ma - 02/21/2022 2:51 PM EDT Please see TE 02/21 Giana Perdue Ma documented in this encounterKindred Hospital Lima10-12-2022 History of Present illness Narrative* Jose Luis Toledo, - 02/05/2022 3:52 PM EDT CC: Sammy Redd is a 42 year old female who presents to the office for follow up HPI: Overall she is feeling okay, she is day 9 post op from bilateral oophorectomy for ovarian cyst/masses by Dr. Xi Camacho at [facility]. She had laparoscopic vaginal assisted surgery. Struggling [...] E28.319 (primary diagnosis) - follow up with DRIVER TRAINEE, she is s/p bilateral oophorectomy at this [...] See patient instructions. Jose Luis Toledo DO [address] [place] [address] documented in this encounterKindred Hospital Lima10-03-2022 History of Present illness Narrative* Shama Bryan RN - 01/27/2022 4:26 PM EDT Pt discharged via wheelchair with belongings, paperwork, and meds in hand. No concerns noted * Shama Bryan RN - 01/27/2022 4:09 PM EDT Pt nauseated with zofran given. Pt ambulated to bathroom with minimal assist. * Shama Bryan RN - 01/27/2022 3:57 PM EDT Discharge instructions given to pt/pt mom. Both acknowledge follow up, meds, and home going instructions. Meds to beds at documented in this encounterSUMMA Work Phone: 1(693) 506-694510-03-2022 Hospital Discharge instructions* Discharge Instructions* Inge Garcia DO - 01/27/2022 1:49 PM EDT Please follow your post operative care instructions given to you by your Defect Repairer Glassware Oncologist's office at your pre operative visit. Please call the office with questions or concerns and be sure to follow up at your scheduled post operative visit. documented in this encounterSUMMA Work Phone: 1([phone]) 401-547409-27-2022 History of Present illness Narrative* Shobha Perez APRN.[employer] - 01/21/2022 10:18 AM EDT Chief Complaint [...] agrees to the visit: Yes Patient Location: [facility] Sammy Redd is a 42 year old female who is contacted today for a virtual visit This is an established patient of Dr. Jose Luis Toledo DO Reports: Pt presents today with + covid test results. She started with not feeling well on Thursday or Thursday. Was seen on last week w/ hair loss and body aches. Went to see Surgeon yesterday at [facility] to schedule surgery to have ovaries [...] twice a year-socially Drug use: No EXAM: [facility] 05/30/2019 (Exact Date) Limited exam as visit [...] improvement. Shobha Perez APRN.CNP documented in this encounterKindred Hospital Lima09-22-2022 Instructions* Patient Instructions* Dee Flores APRN.CNP - 01/16/2022 12:07 PM EDT Hold your Biotin for 3 days prior to getting your labs drawn. Use your lorazepam as needed for your situational anxiety. Get some Vitamin D3 5000 unit gummies Let me know after you see the surgeon how things went and what the plan is documented in this encounterKindred Hospital Lima09-22-2022 History of Present illness Narrative* Dee Flores APRN.CNP - 01/16/2022 11:32 AM EDT Chief Complaint Patient presents with: Thyroid Problem Hair Loss HPI Sammy Redd is a 42 year old female who presents here today for Above Complaints. Today: Hair loss-noticed about a month ago. Noticing that she is shedding a lot. Vivascale vitamin-got so nauseated she couldn't Loowwmtfn-Vatssrq-pyeonfc [place]. Has a lot going on-may be having [...] TABLET Dee Flores APRN.CNP documented in this encounterKindred Hospital Lima08-11-2022 History of Present illness Narrative* Dee Flores APRN.CNP - 12/05/2021 11:44 AM EDT VIRTUAL VISIT PROGRESS NOTE This is a virtual visit using [employer] video visit. It required patient-provider interaction for [...] by Dee Flores CNP. documented in this encounterKindred Hospital Lima07-11-2022 History of Present illness Narrative* Brandi Rasmussen APRN.CNP - 11/04/2021 12:46 PM EDT This Team Access Model visit is a virtual encounter. It required patient- provider interaction for the medical decision making as documented below. 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 [...] suspiciousactivity was identified. 11/04/2021 by Brandi Rasmussen APRN.[employer] - reviewed SE, medication expectations, required weight [...] medications. Brandi Rasmussen APRN.CNP documented in this encounterKindred Hospital Lima06-09-2022 Instructions* Patient Instructions* Dee Flores APRN.CNP - 10/03/2021 11:51 AM EDT Fish oil-Huntington 3 Red Rice Yeast Both help with cholesterol documented in this encounterKindred Hospital Lima06-09-2022 History of Present illness Narrative* Dee Flores [...] Limiting carbs. Exercise-works out twice weekly at [employer]-tries to do more than this. Her [...] ICD10: E78.5 Discussed diet, weight loss, exercise. Huntington 3s and red rice yeast. Dee Flores APRN.JOI PDMP website checked and validated. All prescriptions have been APPROPRIATELY filled. No suspiciousactivity was identified. 10/03/2021 by Dee Flores CNP. documented in this encounterKindred Hospital Lima06-07-2022 NotePap Smear Specimen AdequacyJun2021 11:05amComment.Satisfactory for evaluation. No endocervical component is identified.[facility] A#[id number] [facility] Work Phone: comment on above:Satisfactory for evaluation. No endocervical component is identified.10-01-2021 NotePap Smear Specimen Adequacy October 01, 2021 11:05amComment.Satisfactory for evaluation. No endocervical component is identified.[facility] A#[id number] [facility] Work Phone: Comqgoo on above:Satisfactory for evaluation. No endocervical component is identified.10-01-2021 NotePap Smear Specimen Adequacy October 01, 2021 11:05amComment.Satisfactory for evaluation. No endocervical component is identified.[facility] A#[id number] [facility] Work Phone: comment on above:Satisfactory for evaluation. No endocervical component is identified.10-01-2021 NotePap Smear Specimen Adequacy October 01, 2021 11:05amComment.Satisfactory for evaluation. No endocervical component is identified.[facility] A#[id number] Medical [facility]ty [facility] Work Phone: Comment on above:Satisfactory for evaluation. No endocervical component is identified.08-12-2021 Instructions* Patient Instructions* Dee Flores APRN.CNP - 08/12/2021 9:43 AM EDT Let me know in 2 weeks if your want to increase your Adderall-just send me a [employer] message. Have labs drawn on the way out today. I should have results in 1-2 days. documented in this encounterKindred Hospital Lima04-18-2022 History of Present illness Narrative* Dee Flores APRN.CNP - 08/12/2021 9:12 AM EDT Patient presents with: F/U 6 months: thyroid lab work, cyst removed 07/30/21 @ [facility] HPI: Sammy Redd is a 41 year [...] agreed with the plan. Dee Flores APRN.CNP [address] [place] [address] documented in this encounterKindred Hospital Lima02-11-2022 Miscellaneous Notes* Telephone Encounter - Giana Perdue Ma - 06/07/2021 12:35 PM EST Faxed to [facility] Giana Perdue Ma * Telephone Encounter - Dee Flores APRN.CNP - 06/07/2021 12:32 PM EST New order placed. Dee Flores APRN.CNP * Telephone Encounter - Angelica Johnson RN - 06/07/2021 12:08 PM EST Preeti with [facility] calls and asks for mammogram order to add with [facility] (3-d imaging) to current order and then send back to [phone]. She said they only offer this so order has to specify it. Angelica Johnson RN documented in this encounterKindred Hospital Lima08-09-2021 History of Present illness Narrative* Jodie Knott [...] 03, 2020 6:30 PM documented in this encounterKindred Hospital Lima10-19-2020 History of Present illness Narrative* Sanam Gomez [...] 13, 2020 10:52 AM documented in this encounterKindred Hospital Lima06-27-2017 History of Past illness Narrative* Problem Noted Date Resolved Date Tick bite 10/21/2016 03/10/2017 Obesity (BMI 30-39.9) 09/15/2014 11/18/2017 Kidney stone 08/28/2014 03/10/2017 Right flank pain 08/28/2014 03/10/2017 Renal calculi 05/13/2010 03/10/2017 documented as of this encounter (statuses as of 08/12/2021) [address]27-2017 History of Past illness Narrative* Problem Noted Date Resolved Date Tick bite 10/21/2016 03/10/2017 Obesity (BMI 30-39.9) 09/15/2014 11/18/2017 Kidney stone 08/28/2014 03/10/2017 Right flank pain 08/28/2014 03/10/2017 Renal calculi 05/13/2010 03/10/2017 documented as of this encounter (statuses as of 10/03/2021) [facility] of [facility] illness Narrative* Problem Noted Date Resolved Date Tick bite 10/21/2016 03/10/2017 Obesity (BMI 30-39.9) 09/15/2014 11/18/2017 Kidney stone 08/28/2014 03/10/2017 Right flank pain 08/28/2014 03/10/2017 Renal calculi 05/13/2010 03/10/2017 documented as of this encounter (statuses as of 11/04/2021) [address]27-2017 History of Past illness Narrative* Problem Noted Date Resolved Date Tick bite 10/21/2016 03/10/2017 Obesity (BMI 30-39.9) 09/15/2014 11/18/2017 Kidney stone 08/28/2014 03/10/2017 Right flank pain 08/28/2014 03/10/2017 Renal calculi 05/13/2010 03/10/2017 documented as of this encounter (statuses as of 12/05/2021) [address]27-2017 History of Past illness Narrative* Problem Noted Date Resolved Date Tick bite 10/21/2016 03/10/2017 Obesity (BMI 30-39.9) 09/15/2014 11/18/2017 Kidney stone 08/28/2014 03/10/2017 Right flank pain 08/28/2014 03/10/2017 Renal calculi 05/13/2010 03/10/2017 documented as of this encounter (statuses as of 12/12/2021) [facility] of [facility] Narrative* Problem Noted Date Resolved Date Tick bite 10/21/2016 03/10/2017 Obesity (BMI 30-39.9) 09/15/2014 11/18/2017 Kidney stone 08/28/2014 03/10/2017 Right flank pain 08/28/2014 03/10/2017 Renal calculi 05/13/2010 03/10/2017 documented as of this encounter (statuses as of 01/16/2022) [facility] of [facility] Narrative* Problem Noted Date Resolved Date Tick bite 10/21/2016 03/10/2017 Obesity (BMI 30-39.9) 09/15/2014 11/18/2017 Kidney stone 08/28/2014 03/10/2017 Right flank pain 08/28/2014 03/10/2017 Renal calculi 05/13/2010 03/10/2017 documented as of this encounter (statuses as of 01/21/2022) [facility] of [facility] Narrative* Problem Noted Date Resolved Date Tick bite 10/21/2016 03/10/2017 Obesity (BMI 30-39.9) 09/15/2014 11/18/2017 Kidney stone 08/28/2014 03/10/2017 Right flank pain 08/28/2014 03/10/2017 Renal calculi 05/13/2010 03/10/2017 documented as of this encounter (statuses as of 02/06/2022) [facility] Narrative* Problem Noted Date Resolved Date Tick bite 10/21/2016 03/10/2017 Obesity (BMI 30-39.9) 09/15/2014 11/18/2017 Kidney stone 08/28/2014 03/10/2017 Right flank pain 08/28/2014 03/10/2017 Renal calculi 05/13/2010 03/10/2017 documented as of this encounter (statuses as of 02/21/2022) [address]27-2017 History of Past illness Narrative* Problem Noted Date Resolved Date Tick bite 10/21/2016 03/10/2017 Obesity (BMI 30-39.9) 09/15/2014 11/18/2017 Kidney stone 08/28/2014 03/10/2017 Right flank pain 08/28/2014 03/10/2017 Renal calculi 05/13/2010 03/10/2017 documented as of this encounter (statuses as of 02/27/2022) [address]27-2017 History of Past illness Narrative* Problem Noted Date Resolved Date Tick bite 10/21/2016 03/10/2017 Obesity (BMI 30-39.9) 09/15/2014 11/18/2017 Kidney stone 08/28/2014 03/10/2017 Right flank pain 08/28/2014 03/10/2017 Renal calculi 05/13/2010 03/10/2017 documented as of this encounter (statuses as of 05/12/2022) [address]2017 History of Past illness Narrative* Problem Noted Date Resolved Date Tick bite 10/21/2016 03/10/2017 Obesity (BMI 30-39.9) 09/15/2014 11/18/2017 Kidney stone 08/28/2014 03/10/2017 Right flank pain 08/28/2014 03/10/2017 Renal calculi 05/13/2010 03/10/2017 documented as of this encounter (statuses as of 05/19/2022) [address]27-2017 History of Past illness Narrative* Problem Noted Date Resolved Date Tick bite 10/21/2016 03/10/2017 Obesity (BMI 30-39.9) 09/15/2014 11/18/2017 Kidney stone 08/28/2014 03/10/2017 Right flank pain 08/28/2014 03/10/2017 Renal calculi 05/13/2010 03/10/2017 documented as of this encounter (statuses as of 05/19/2022) [address]27-2017 History of Past illness Narrative* Problem Noted Date Resolved Date Tick bite 10/21/2016 03/10/2017 Obesity (BMI 30-39.9) 09/15/2014 11/18/2017 Kidney stone 08/28/2014 03/10/2017 Right flank pain 08/28/2014 03/10/2017 Renal calculi 05/13/2010 03/10/2017 documented as of this encounter (statuses as of 06/18/2022) [address]27-2017 History of Past illness Narrative* Problem Noted Date Resolved Date Tick bite 10/21/2016 03/10/2017 Obesity (BMI 30-39.9) 09/15/2014 11/18/2017 Kidney stone 08/28/2014 03/10/2017 Right flank pain 08/28/2014 03/10/2017 Renal calculi 05/13/2010 03/10/2017 documented as of this encounter (statuses as of 06/30/2022) [address]27-2017 History of Past illness Narrative* Problem Noted Date Resolved Date Tick bite 10/21/2016 03/10/2017 Obesity (BMI 30-39.9) 09/15/2014 11/18/2017 Kidney stone 08/28/2014 03/10/2017 Right flank pain 08/28/2014 03/10/2017 Renal calculi 05/13/2010 03/10/2017 documented as of this encounter (statuses as of 07/28/2022) [address]27-2017 History of Past illness Narrative* Problem Noted Date Resolved Date Tick bite 10/21/2016 03/10/2017 Obesity (BMI 30-39.9) 09/15/2014 11/18/2017 Kidney stone 08/28/2014 03/10/2017 Right flank pain 08/28/2014 03/10/2017 Renal calculi 05/13/2010 03/10/2017 documented as of this encounter (statuses as of 08/02/2022) [address]27-2017 History of Past illness Narrative* Problem Noted Date Resolved Date Tick bite 10/21/2016 03/10/2017 Obesity (BMI 30-39.9) 09/15/2014 11/18/2017 Kidney stone 08/28/2014 03/10/2017 Right flank pain 08/28/2014 03/10/2017 Renal calculi 05/13/2010 03/10/2017 documented as of this encounter (statuses as of 08/08/2022) [address]27-2017 History of Past illness Narrative* Problem Noted Date Resolved Date Tick bite 10/21/2016 03/10/2017 Obesity (BMI 30-39.9) 09/15/2014 11/18/2017 Kidney stone 08/28/2014 03/10/2017 Right flank pain 08/28/2014 03/10/2017 Renal calculi 05/13/2010 03/10/2017 documented as of this encounter (statuses as of 08/08/2022) [address]27-2017 History of Past illness Narrative* Problem Noted Date Resolved Date Tick bite 10/21/2016 03/10/2017 Obesity (BMI 30-39.9) 09/15/2014 11/18/2017 Kidney stone 08/28/2014 03/10/2017 Right flank pain 08/28/2014 03/10/2017 Renal calculi 05/13/2010 03/10/2017 documented as of this encounter (statuses as of 08/15/2022) [address]27-2017 History of Past illness Narrative* Problem Noted Date Resolved Date Tick bite 10/21/2016 03/10/2017 Obesity (BMI 30-39.9) 09/15/2014 11/18/2017 Kidney stone 08/28/2014 03/10/2017 Right flank pain 08/28/2014 03/10/2017 Renal calculi 05/13/2010 03/10/2017 documented as of this encounter (statuses as of 08/20/2022) [address]27-2017 History of Past illness Narrative* Problem Noted Date Resolved Date Tick bite 10/21/2016 03/10/2017 Obesity (BMI 30-39.9) 09/15/2014 11/18/2017 Kidney stone 08/28/2014 03/10/2017 Right flank pain 08/28/2014 03/10/2017 Renal calculi 05/13/2010 03/10/2017 documented as of this encounter (statuses as of 08/29/2022) [address]27-2017 History of Past illness Narrative* Problem Noted Date Resolved Date Tick bite 10/21/2016 03/10/2017 Obesity (BMI 30-39.9) 09/15/2014 11/18/2017 Kidney stone 08/28/2014 03/10/2017 Right flank pain 08/28/2014 03/10/2017 Renal calculi 05/13/2010 03/10/2017 documented as of this encounter (statuses as of 10/13/2022) [address]27-2017 History of Past illness Narrative* Problem Noted Date Resolved Date Tick bite 10/21/2016 03/10/2017 Obesity (BMI 30-39.9) 09/15/2014 11/18/2017 Kidney stone 08/28/2014 03/10/2017 Right flank pain 08/28/2014 03/10/2017 Renal calculi 05/13/2010 03/10/2017 documented as of this encounter (statuses as of 10/24/2022) [address]27-2017 History of Past illness Narrative* Problem Noted Date Diagnosed Date Resolved Date Tick bite 10/21/2016 03/10/2017 Obesity (BMI 30-39.9) 09/15/20142017 Kidney stone 08/28/2014 03/10/2017 Right flank pain 08/28/2014 03/10/2017 Renal calculi 05/13/2010 03/10/2017 documented as of this encounter (statuses as of 12/03/2022) [address]27-2017 History of Past illness Narrative* Problem Noted Date Diagnosed Date Resolved Date Tick bite 10/21/2016 03/10/2017 Obesity (BMI 30-39.9) 09/15/20142017 Kidney stone 08/28/2014 03/10/2017 Right flank pain 08/28/2014 03/10/2017 Renal calculi 05/13/2010 03/10/2017 documented as of this encounter (statuses as of 12/30/2022) [address]27-2017 History of Past illness Narrative* Problem Noted Date Diagnosed Date Resolved Date Tick bite 10/21/2016 03/10/2017 Obesity (BMI 30-39.9) 09/15/20142017 Kidney stone 08/28/2014 03/10/2017 Right flank pain 08/28/2014 03/10/2017 Renal calculi 05/13/2010 03/10/2017 documented as of this encounter (statuses as of 12/31/2022) [address]27-2017 History of Past illness Narrative* Problem Noted Date Diagnosed Date Resolved Date Tick bite 10/21/2016 03/10/2017 Obesity (BMI 30-39.9) 09/15/20142017 Kidney stone 08/28/2014 03/10/2017 Right flank pain 08/28/2014 03/10/2017 Renal calculi 05/13/2010 03/10/2017 documented as of this encounter (statuses as of 01/31/2023) [address]27-2017 History of Past illness Narrative* Problem Noted Date Diagnosed Date Resolved Date Tick bite 10/21/2016 03/10/2017 Obesity (BMI 30-39.9) 09/15/20142017 Kidney stone 08/28/2014 03/10/2017 Right flank pain 08/28/2014 03/10/2017 Renal calculi 05/13/2010 03/10/2017 documented as of this encounter (statuses as of 02/04/2023) [address]27-2017 History of Past illness Narrative* Problem Noted Date Diagnosed Date Resolved Date Tick bite 10/21/2016 03/10/2017 Obesity (BMI 30-39.9) 09/15/20142017 Kidney stone 08/28/2014 03/10/2017 Right flank pain 08/28/2014 03/10/2017 Renal calculi 05/13/2010 03/10/2017 documented as of this encounter (statuses as of 02/06/2023) [address]27-2017 History of Past illness Narrative* Problem Noted Date Diagnosed Date Resolved Date Tick bite 10/21/2016 03/10/2017 Obesity (BMI 30-39.9) 09/15/20142017 Kidney stone 08/28/2014 03/10/2017 Right flank pain 08/28/2014 03/10/2017 Renal calculi 05/13/2010 03/10/2017 documented as of this encounter (statuses as of 02/09/2023) [address]27-2017 History of Past illness Narrative* Problem Noted Date Diagnosed Date Resolved Date Tick bite 10/21/2016 03/10/2017 Obesity (BMI 30-39.9) 09/15/20142017 Kidney stone 08/28/2014 03/10/2017 Right flank pain 08/28/2014 03/10/2017 Renal calculi 05/13/2010 03/10/2017 documented as of this encounter (statuses as of 02/12/2023) [address]27-2017 History of Past illness Narrative* Problem Noted Date Diagnosed Date Resolved Date Tick bite 10/21/2016 03/10/2017 Obesity (BMI 30-39.9) 09/15/20142017 Kidney stone 08/28/2014 03/10/2017 Right flank pain 08/28/2014 03/10/2017 Renal calculi 05/13/2010 03/10/2017 documented as of this encounter (statuses as of 02/12/2023) [address]27-2017 History of Past illness Narrative* Problem Noted Date Diagnosed Date Resolved Date Tick bite 10/21/2016 03/10/2017 Obesity (BMI 30-39.9) 09/15/20142017 Kidney stone 08/28/2014 03/10/2017 Right flank pain 08/28/2014 03/10/2017 Renal calculi 05/13/2010 03/10/2017 documented as of this encounter (statuses as of 02/19/2023) [address]27-2017 History of Past illness Narrative* Problem Noted Date Diagnosed Date Resolved Date Tick bite 10/21/2016 03/10/2017 Obesity (BMI 30-39.9) 09/15/20142017 Kidney stone 08/28/2014 03/10/2017 Right flank pain 08/28/2014 03/10/2017 Renal calculi 05/13/2010 03/10/2017 documented as of this encounter (statuses as of 02/19/2023) [address]27-2017 History of Past illness Narrative* Problem Noted Date Diagnosed Date Resolved Date Tick bite 10/21/2016 03/10/2017 Obesity (BMI 30-39.9) 09/15/20142017 Kidney stone 08/28/2014 03/10/2017 Right flank pain 08/28/2014 03/10/2017 Renal calculi 05/13/2010 03/10/2017 documented as of this encounter (statuses as of 02/28/2023) [address]27-2017 History of Past illness Narrative* Problem Noted Date Diagnosed Date Resolved Date Tick bite 10/21/2016 03/10/2017 Obesity (BMI 30-39.9) 09/15/20142017 Kidney stone 08/28/2014 03/10/2017 Right flank pain 08/28/2014 03/10/2017 Renal calculi 05/13/2010 03/10/2017 documented as of this encounter (statuses as of 03/01/2023) [place] [id number] History of Past illness Narrative* Problem Noted Date Diagnosed Date Resolved Date Tick bite 10/21/2016 03/10/2017 Obesity (BMI 30-39.9) 09/15/20142017 Kidney stone 08/28/2014 03/10/2017 Right flank pain 08/28/2014 03/10/2017 Renal calculi 05/13/2010 03/10/2017 documented as of this encounter (statuses as of 03/01/2023) [address]27-2017 History of Past illness Narrative* Problem Noted Date Diagnosed Date Resolved Date Tick bite 10/21/2016 03/10/2017 Obesity (BMI 30-39.9) 09/15/20142017 Kidney stone 08/28/2014 03/10/2017 Right flank pain 08/28/2014 03/10/2017 Renal calculi 05/13/2010 03/10/2017 documented as of this encounter (statuses as of 03/01/2023) [address]27-2017 History of Past illness Narrative* Problem Noted Date Diagnosed Date Resolved Date Tick bite 10/21/2016 03/10/2017 Obesity (BMI 30-39.9) 09/15/20142017 Kidney stone 08/28/2014 03/10/2017 Right flank pain 08/28/2014 03/10/2017 Renal calculi 05/13/2010 03/10/2017 documented as of this encounter (statuses as of 03/01/2023) [address]27-2017 History of Past illness Narrative* Problem Noted Date Diagnosed Date Resolved Date Tick bite 10/21/2016 03/10/2017 Obesity (BMI 30-39.9) 09/15/20142017 Kidney stone 08/28/2014 03/10/2017 Right flank pain 08/28/2014 03/10/2017 Renal calculi 05/13/2010 03/10/2017 documented as of this encounter (statuses as of 03/01/2023) [address]27-2017 History of Past illness Narrative* Problem Noted Date Diagnosed Date Resolved Date Tick bite 10/21/2016 03/10/2017 Obesity (BMI 30-39.9) 09/15/20142017 Kidney stone 08/28/2014 03/10/2017 Right flank pain 08/28/2014 03/10/2017 Renal calculi 05/13/2010 03/10/2017 documented as of this encounter (statuses as of 03/06/2023) [address]27-2017 History of Past illness Narrative* Problem Noted Date Diagnosed Date Resolved Date Tick bite 10/21/2016 03/10/2017 Obesity (BMI 30-39.9) 09/15/20142017 Kidney stone 08/28/2014 03/10/2017 Right flank pain 08/28/2014 03/10/2017 Renal calculi 05/13/2010 03/10/2017 documented as of this encounter (statuses as of 03/12/2023) [address]27-2017 History of Past illness Narrative* Problem Noted Date Diagnosed Date Resolved Date Tick bite 10/21/2016 03/10/2017 Obesity (BMI 30-39.9) 09/15/20142017 Kidney stone 08/28/2014 03/10/2017 Right flank pain 08/28/2014 03/10/2017 Renal calculi 05/13/2010 03/10/2017 documented as of this encounter (statuses as of 03/24/2023) [address]27-2017 History of Past illness Narrative* Problem Noted Date Diagnosed Date Resolved Date Tick bite 10/21/2016 03/10/2017 Obesity (BMI 30-39.9) 09/15/20142017 Kidney stone 08/28/2014 03/10/2017 Right flank pain 08/28/2014 03/10/2017 Renal calculi 05/13/2010 03/10/2017 documented as of this encounter (statuses as of 03/27/2023) [address]27-2017 History of Past illness Narrative* Problem Noted Date Diagnosed Date Resolved Date Tick bite 10/21/2016 03/10/2017 Obesity (BMI 30-39.9) 09/15/20142017 Kidney stone 08/28/2014 03/10/2017 Right flank pain 08/28/2014 03/10/2017 Renal calculi 05/13/2010 03/10/2017 documented as of this encounter (statuses as of 03/30/2023) [address]27-2017 History of Past illness Narrative* Problem Noted Date Diagnosed Date Resolved Date Tick bite 10/21/2016 03/10/2017 Obesity (BMI 30-39.9) 09/15/20142017 Kidney stone 08/28/2014 03/10/2017 Right flank pain 08/28/2014 03/10/2017 Renal calculi 05/13/2010 03/10/2017 documented as of this encounter (statuses as of 06/08/2023) [address]27-2017 History of Past illness Narrative* Problem Noted Date Diagnosed Date Resolved Date Tick bite 10/21/2016 03/10/2017 Obesity (BMI 30-39.9) 09/15/20142017 Kidney stone 08/28/2014 03/10/2017 Right flank pain 08/28/2014 03/10/2017 Renal calculi 05/13/2010 03/10/2017 documented as of this encounter (statuses as of 07/06/2023) [address]27-2017 History of Past illness Narrative* Problem Noted Date Diagnosed Date Resolved Date Tick bite 10/21/2016 03/10/2017 Obesity (BMI 30-39.9) 09/15/20142017 Kidney stone 08/28/2014 03/10/2017 Right flank pain 08/28/2014 03/10/2017 Renal calculi 05/13/2010 03/10/2017 documented as of this encounter (statuses as of 07/06/2023) [address]27-2017 History of Past illness Narrative* Problem Noted Date Diagnosed Date Resolved Date Tick bite 10/21/2016 03/10/2017 Obesity (BMI 30-39.9) 09/15/20142017 Kidney stone 08/28/2014 03/10/2017 Right flank pain 08/28/2014 03/10/2017 Renal calculi 05/13/2010 03/10/2017 documented as of this encounter (statuses as of 08/06/2023) [address]27-2017 History of Past illness Narrative* Problem Noted Date Diagnosed Date Resolved Date Tick bite 10/21/2016 03/10/2017 Obesity (BMI 30-39.9) 09/15/20142017 Kidney stone 08/28/2014 03/10/2017 Right flank pain 08/28/2014 03/10/2017 Renal calculi 05/13/2010 03/10/2017 documented as of this encounter (statuses as of 08/11/2023) [address]27-2017 History of Past illness Narrative* Problem Noted Date Diagnosed Date Resolved Date Tick bite 10/21/2016 03/10/2017 Obesity (BMI 30-39.9) 09/15/20142017 Kidney stone 08/28/2014 03/10/2017 Right flank pain 08/28/2014 03/10/2017 Renal calculi 05/13/2010 03/10/2017 documented as of this encounter (statuses as of 08/13/2023) [facility] Onset Date Resolution Status Mid back pain on left side a cute Urinary frequency acute Brain aneurysm acute History of endometriosis acu te PCOS (polycystic ovarian syndrome) acute Pelvic pain acute [facility] [place] Work Phone: Evaluation note* Diagnosis Onset Date [...] Pelvic pain acute Right ovarian cyst acute [facility] [place] Work Phone: Evaluation note* Diagnosis Anxiety disorder, unspecified type- Primary Impaired concentration IFG (impaired fasting glucose) Impaired fasting glucose Hypothyroidism, acquired Unspecified hypothyroidism Dyslipidemia Other and unspecified hyperlipidemia Obesity, Class II, BMI 35-39.9 Obesity, unspecified Vitamin D deficiency Unspecified vitamin D deficiency Hip pain Pain in joint, pelvic region and thigh [facility] Diagnosis Onset Date Resolution Status Mid [...] acute Right ovarian cyst acute Anosmia chronic [facility] [place] Work Phone: Evaluation note* Diagnosis Onset Date [...] Anosmia chronic History of endometriosis acu te [facility] [place] Work Phone: Evaluation note* Diagnosis Onset Date [...] chroni c Migraine headache with aura chronic [facility] [place] Work Phone: Evaluation note* Diagnosis Obesity, Class III, BMI 40-49.9 (morbid obesity) (HCC)- Primary Morbid obesity Impaired concentration Dyslipidemia Other and unspecified hyperlipidemia [facility] Diagnosis Onset Date Resolution Status Brain [...] headache with aura chronic Lichen sclerosus acute [facility] [place] Work Phone: Evaluation note* Diagnosis Obesity, Class III, BMI 40-49.9 (morbid obesity) (HCC)- Primary Morbid obesity Dyslipidemia Other and unspecified hyperlipidemia IFG (impaired fasting glucose) Impaired fasting glucose Impaired concentration [facility] Diagnosis Onset Date Resolution Status Pelvic [...] noneactive Lichen sclerosus acute Pelvic pain acute [facility] [place] Work Phone: Evaluation note* Diagnosis Impaired concentration- Primary Obesity, Class III, BMI 40-49.9 (morbid obesity) (HCC) Morbid obesity Dyslipidemia Other and unspecified hyperlipidemia IFG (impaired fasting glucose) Impaired fasting glucose Pain in both hands [facility] [place] [facility] Diagnosis Encounter for screening mammogram for breast cancer- Primary documented in this encounter [facility] note* Diagnosis Onset Date Resolution Status Anosmia chronic Cerebral aneurysm chronic Hypercoagulable state chroni c Migraine headache with aura chronic Lichen sclerosus acute Routine gynecological examination noneactive Vaginitis noneactive Lichen sclerosus acute Pelvic pain acute [facility] [place] Work Phone: Evaluation note* Diagnosis Onset Date Resolution Status Anosmia chronic Cerebral aneurysm chronic Hypercoagulable state chroni c Migraine headache with aura chronic Lichen sclerosus acute Routine gynecological examination noneactive Vaginitis noneactive Lichen sclerosus acute Pelvic pain acute Cerebral aneurysm chronic Hypercoagulable state chroni c Migraine headache with aura chronic [facility] [place] Work Phone: Evaluation note* Diagnosis Hair thinning- Primary Alopecia, unspecified Hair loss Alopecia, unspecified Hypothyroidism, acquired Unspecified hypothyroidism Fatigue, unspecified type Stress Other psychological or physical stress, not elsewhere classified Body aches Generalized pain Anxiety disorder, unspecified type Impaired concentration [facility] [place] [facility] Diagnosis COVID-19- Primary documented in this encounter [facility] note* Diagnosis Post-op pain- Primary Other acute postoperative pain Pelvic mass in female Abdominal or pelvic swelling, mass or lump, unspecified site documented in this encounter [facility] Work Phone: Evaluation note* Diagnosis Onset Date Resolution Status Lichen sclerosus acute Pelvic pain acute Cerebral aneurysm chronic Hypercoagulable state chroni c Migraine headache with aura chronic [facility] [place] Work Phone: Evaluation note* Diagnosis Premature menopause- Primary Surgical menopause Symptomatic states associated with artificial menopause Neuritis Neuralgia, neuritis, and radiculitis, unspecified Acute midline low back pain without sciatica [facility] [place] [facility] Diagnosis Abdominal pain, LLQ- Primary Abdominal pain, left lower quadrant Hx of bilateral oophorectomy Acquired absence of organ, genital organs Left lower quadrant abdominal pain Bloody stool Blood in stool Chronic midline low back pain without sciatica documented in this encounter [facility] note* Diagnosis Onset Date Resolution Status Cerebral aneurysm chronic Hypercoagulable state chroni c Migraine headache with aura chronic Anxiety acute Sebaceous cyst noneactive Anxiety acute Climacteric acute History of total vaginal hysterectomy (TVH) acute Hx of protein S deficiency a cute S/P oophorectomy acute Telogen effluvium acute [facility] [place] Work Phone: Evaluation note* Diagnosis Acute right flank pain- Primary Abdominal pain, unspecified site History of renal stone Personal history of urinary calculi Hair loss Alopecia, unspecified Thyroid nodule Nontoxic uninodular goiter Sacral pain Disorders of sacrum Chronic midline low back pain without sciatica Impaired concentration Adnexal cyst Other specified symptom associated with female genital organs documented in this encounter [facility] note* Diagnosis Thyroid nodule- Primary Nontoxic uninodular goiter Hypothyroidism, acquired Unspecified hypothyroidism Dyslipidemia Other and unspecified hyperlipidemia Hair loss Alopecia, unspecified documented in this encounter [facility] note* Diagnosis Onset Date Resolution Status Anxiety acute Sebaceous cyst noneactive Anxiety acute Climacteric acute History of total vaginal hysterectomy (TVH) acute Hx of protein S deficiency a cute S/P oophorectomy acute Telogen effluvium acute Anxiety acute Climacteric acute S/P oophorectomy acute Telogen effluvium acute [facility] [place] Work Phone: Evaluation note* Diagnosis Onset Date Resolution Status Anxiety acute Climacteric acute History of total vaginal hysterectomy (TVH) acute Hx of protein S deficiency a cute S/P oophorectomy acute Telogen effluvium acute Anxiety acute Climacteric acute S/P oophorectomy acute Telogen effluvium acute [facility] [place] Work Phone: Evaluation note* Diagnosis Hip pain Pain in joint, pelvic region and thigh documented in this encounter [facility] note* Diagnosis Impaired concentration documented in this encounter [facility] note* Diagnosis Right nephrolithiasis- Primary Impaired concentration Anxiety disorder, unspecified type Obesity, Class II, BMI 35-39.9 Obesity, unspecified Magnesium deficiency Disorders of magnesium metabolism Dermatofibroma Benign neoplasm of skin, site unspecified Chronic SI joint pain Disorders of sacrum Sclerosis of sacroiliac joint Disorders of sacrum documented in this encounter [facility] note* Diagnosis Encounter for screening mammogram for breast cancer documented in this encounter [facility] note* Diagnosis Obesity, Class III, BMI 40-49.9 (morbid obesity) ([facility])- Primary Morbid obesity Dyslipidemia Other and unspecified hyperlipidemia Hypothyroidism, acquired Unspecified hypothyroidism Sacral pain Disorders of sacrum Chronic midline low back pain without sciatica documented in this encounter [facility] note* Diagnosis Viral bronchitis- Primary Acute bronchitis Sore throat Acute pharyngitis Acute cough documented in this encounter [facility] note* Diagnosis Persistent cough- Primary Cough Bronchitis Bronchitis, not specified as acute or chronic Hoarse Dysphonia Vaginal lesion Other specified noninflammatory disorder of vagina documented in this encounter [facility] note* Diagnosis Bronchitis Bronchitis, not specified as acute or chronic Hoarse Dysphonia Persistent cough Cough [facility] [place] [facility] Diagnosis Impaired concentration Obesity, Class III, BMI 40-49.9 (morbid obesity) (HCC) Morbid obesity documented in this encounter [facility] note* Diagnosis Obesity, Class III, BMI 40-49.9 (morbid obesity) (HCC) Morbid obesity documented in this encounter [facility] note* Diagnosis Obesity, Class II, BMI 35-39.9- Primary Obesity, unspecified Impaired concentration Anxiety disorder, unspecified type Hypothyroidism, acquired Unspecified hypothyroidism documented in this encounter [facility] note* Diagnosis Hip pain Pain in joint, pelvic region and thigh [facility] [place] [facility]* Diagnosis Obesity, Class II, BMI 35-39.9 Obesity, unspecified documented in this encounter [facility] note* Diagnosis Obesity, Class II, BMI 35-39.9 Obesity, unspecified [facility] [place] [facility]* Diagnosis Gross hematuria- Primary Kidney stone Calculus of kidney Impaired concentration Flank pain Abdominal pain, unspecified site documented [facility] this [facility] [place] [facility]* Diagnosis Kidney stone Calculus of kidney Gross hematuria Flank pain Abdominal pain, unspecified site [facility] this [facility] [place] [facility]* Diagnosis Right ureteral stone- Primary Calculus of ureter Acute right flank pain Abdominal pain, unspecified site Gross hematuria Kidney stone Calculus of kidney Flank pain Abdominal pain, unspecified site documented [facility] this [facility] [place] [facility]* Diagnosis Procedure not carried out- Primary Procedure not carried out for other reasons documented in this encounter [facility] noteNo assessment information [facility] [place] Work Phone: [facility]* Diagnosis Right nephrolithiasis documented in this encounter [facility] note* Diagnosis Right ureteral stone Calculus of ureter Kidney stone Calculus of kidney documented in this encounter [facility] note* Diagnosis Hair loss Alopecia, unspecified Thyroid nodule Nontoxic uninodular goiter Kidney stone Calculus of kidney [facility] [place] [facility]* Diagnosis Acute right flank pain Abdominal pain, unspecified site History of renal stone Personal history of urinary calculi Kidney stone Calculus of kidney [facility] [place] [facility]* Diagnosis Sacral pain Disorders of sacrum Chronic midline low back pain without sciatica Kidney stone Calculus of kidney documented [facility] this [facility] [place] [facility]* Diagnosis Left lower quadrant abdominal pain Kidney stone Calculus of kidney [facility] [place] [facility]* Diagnosis Right ureteral stone Calculus of ureter Kidney stone Calculus of kidney [facility] [place] [facility]* Diagnosis Hypothyroidism, acquired- Primary Unspecified hypothyroidism Impaired concentration Anxiety disorder, unspecified type Dysmetabolic syndrome Dysmetabolic Syndrome X Kidney stone Calculus of kidney Obesity, Class II, BMI 35-39.9 Obesity, unspecified Kidney stone Calculus of kidney [facility] [place] [facility]* Diagnosis Right ureteral stone- Primary Calculus of ureter Acute cystitis without hematuria Acute cystitis Right nephrolithiasis documented in this encounter [facility] note* Diagnosis Onset Date Resolution Status Vaginitis noneactive [facility] [place] Work Phone: Evaluation note* Diagnosis Impaired concentration Obesity, Class II, BMI 35-39.9 Obesity, unspecified documented in this encounter [facility] note* Diagnosis Encounter for screening [facility] Anxiety disorder, unspecified type- Primary Obesity, Class II, BMI 35-39.9 Obesity, unspecified Impaired concentration [facility] Diagnosis Obesity, Class II, BMI 35-39.9 Obesity, unspecified Impaired concentration [facility] this [facility] [place] [facility]* Diagnosis Arthralgia, unspecified joint- Primary Myalgia [...] 35-39.9 Obesity, unspecified [facility] this [facility] [place] [facility]* Diagnosis Onset Date Resolution Status Vaginitis noneactive Ptosis acute Cerebral aneurysm chronic Migraine headache with aura chronic [facility] [place] Work Phone: Evaluation note* Diagnosis Ureteral stone [N20.1]- Primary Calculus of ureter Calculus of kidney Acute cystitis without hematuria Acute cystitis [facility] [place] [facility] Diagnosis Right ureteral stone Calculus of ureter [facility] this [facility] [place] [facility]* Diagnosis Calculus of kidney [facility] this [facility] [place] [facility]* Diagnosis Vitamin B12 deficiency- Primary Other B-complex deficiencies Obesity, Class II, BMI 35-39.9 Obesity, unspecified Impaired concentration Anxiety disorder, unspecified type Dermatofibroma Benign neoplasm of skin, site unspecified Finger swelling Swelling of limb Stiffness of hand joint, unspecified laterality [facility] [place] [facility]* Diagnosis Erythromelalgia (HCC)- Primary Erythromelalgia Finger swelling Swelling of limb Family history of rheumatoid arthritis Family history of arthritis Lichen sclerosus Circumscribed scleroderma Fibromyalgia Mylagia and myositis, unspecified [facility] Diagnosis Impaired concentration [facility] Diagnosis Impaired concentration- Primary Anxiety disorder, unspecified type PRASHANTH (generalized anxiety disorder) Generalized anxiety disorder Arthralgia, unspecified joint Myalgia Mylagia and myositis, unspecified Situational anxiety Other anxiety states [facility] [place] [facility]* Diagnosis Anxiety disorder, unspecified type- Primary Vitamin B12 deficiency Other B-complex deficiencies Impaired concentration Obesity, Class II, BMI 35-39.9 Obesity, unspecified Endometriosis Endometriosis, site unspecified Right lower quadrant abdominal pain Abdominal pain, right lower quadrant [facility] this [facility] [place] [facility]* Diagnosis Obesity, Class II, BMI 35-39.9 [...] thoracic back pain [facility] [place] [facility]* Diagnosis Arthralgia, unspecified joint Myalgia Mylagia and myositis, unspecified documented [facility] this [facility] [place] [facility]* Diagnosis Endometriosis Endometriosis, site unspecified Right lower quadrant abdominal pain Abdominal pain, right lower quadrant [facility] [place] [facility]* Diagnosis Bronchitis Bronchitis, not specified as acute or chronic Hoarse Dysphonia Persistent cough Cough documented [facility] this [facility] [place] [facility]* Diagnosis Arthralgia, unspecified joint Myalgia Mylagia and myositis, unspecified [facility] [place] [facility]* Diagnosis Lumbar back pain Lumbago [facility] this [facility] [place] [facility]* Diagnosis Anxiety disorder, unspecified type PRASHANTH (generalized anxiety disorder) Generalized anxiety disorder [facility] this [facility] [place] [facility]* Diagnosis Hypothyroidism, acquired- Primary Unspecified hypothyroidism [...] and respiratory abnormality [facility] [place] [facility]* Diagnosis Hypothyroidism, acquired Unspecified hypothyroidism Thyroid nodule Nontoxic uninodular goiter [facility] this [facility] [place] [facility]* Diagnosis Vitamin D deficiency Unspecified vitamin D deficiency documented in this encounter [facility] note* Diagnosis Acute pain of right shoulder- Primary documented in this encounter [facility] note* Diagnosis Bronchitis- Primary Bronchitis, not specified as acute or chronic Viral URI with cough Acute upper respiratory infections of unspecified site documented in this encounter [facility] note* Diagnosis SOB (shortness of breath)- Primary Shortness of breath Wheeze Wheezing Acute cough Fever, unspecified fever cause Aches Generalized pain Chills Chills (without fever) Other chest pain Urinary frequency SOB (shortness of breath) Shortness of breath Wheeze Wheezing Acute cough Fever, unspecified fever cause Aches Generalized pain Chills Chills (without fever) Other chest pain documented in this encounter [facility] note* Diagnosis SOB (shortness of breath)- Primary Shortness of breath Wheeze Wheezing Acute cough Fever, unspecified fever cause Aches Generalized pain Chills Chills (without fever) Other chest pain Restrictive airway disease Other diseases of lung, not elsewhere classified Viral URI Acute upper respiratory infections of unspecified site Chronic bronchitis, unspecified chronic bronchitis type (HCC) documented in this encounter [facility] note* Diagnosis SOB (shortness of breath) Shortness of breath Wheeze Wheezing Acute cough Fever, unspecified fever cause Aches Generalized pain Chills Chills (without fever) Other chest pain documented in this encounter [facility] note* Diagnosis Influenza A- Primary Influenza with other respiratory manifestations documented in this encounter [facility] note* Diagnosis SOB (shortness of breath) Shortness of breath Wheeze Wheezing Acute cough Fever, unspecified fever cause Aches Generalized pain Chills Chills (without fever) Other chest pain documented in this encounter [facility] note* Diagnosis Rhonchi at both lung bases- Primary Impaired concentration Anxiety disorder, unspecified type PRASHANTH (generalized anxiety disorder) Generalized anxiety disorder Situational anxiety Other anxiety states Obesity, Class II, BMI 35-39.9 Obesity, unspecified Encounter for screening mammogram for malignant neoplasm of breast Other screening mammogram Community acquired pneumonia, unspecified laterality SOB (shortness of breath) Shortness of breath Wheeze Wheezing documented in this encounter [facility] note* Diagnosis Nausea- Primary Nausea alone SOB (shortness of breath) Shortness of breath Wheeze Wheezing Bilateral flank pain Abdominal pain, unspecified site [facility] [place] [facility]* Diagnosis Rhonchi at both lung bases Community acquired pneumonia, unspecified laterality documented in this encounter [facility] note* Diagnosis Encounter for screening mammogram for breast cancer documented in this encounter [facility] note* Diagnosis SOB (shortness of breath) Shortness of breath Wheeze Wheezing Wheezing documented in this encounter [facility] note* Diagnosis Migraine without aura, intractable, without status migrainosus- Primary Obesity, Class II, BMI 35-39.9 Obesity, unspecified Anxiety disorder, unspecified type PRASHANTH (generalized anxiety disorder) Generalized anxiety disorder Situational anxiety Other anxiety states IFG (impaired fasting glucose) Impaired fasting glucose Insulin resistance Dysmetabolic Syndrome X documented in this encounter [facility] note* Diagnosis Myalgia- Primary Mylagia and myositis, [...] Other anxiety states documented in this encounter [facility] note* Diagnosis IFG (impaired fasting glucose)- Primary Impaired fasting glucose [facility] Additional Instructions Keep your appointment with your surgeon's office as instructed.[facility] [place] Work Phone: Hospital Discharge instructions Additional Instructions Please follow-up with urology for repeat evaluation and return to the ER if you develop a fever over 100.4 or your pain is not controlled with outpatient medicationsWSelect [facility] Work Phone: Reason for referral (narrative)* Diagnostic Procedure Only (Routine) - Pending Review Specialty Diagnoses / Procedures Referred By Juan Francisco barnett Referred To Contact [facility] Diagnoses Encounter for screening mammogram for breast cancer Procedures MIRELLA SCREENING W CHRISTIANO SCREENING DIGITAL BREAST TOMOSYNTHESIS BI SCREENING MAMMOGRAPHY BI 2-VIEW BREAST INC Jose Luis Alexander, DO [address] [place] [address] [facility] [address] [place] [address] Referral ID Status Reason Start Date Expiration Date Visits Requested Visits Authorized [id number] Pending Review Auto-Generat ed Referral 06/07/2021 07/07/2022 1 1 [facility] for referral (narrative)* Diagnostic Procedure Only (Routine) - Pending Review Specialty Diagnoses / Procedures Referred By Contac t Referred To Contact [facility] Diagnoses Encounter for screening mammogram for breast cancer Procedures MRIELLA SCREENING SCREENING MAMMOGRAPHY BI 2-VIEW BREAST INC CAD Jose Luis Toledo, [address] [place] [address] [facility] [address] [place] [address] Referral ID Status Reason Start Date Expiration Date Visits Requested Visits Authorized [id number] Pending Review Auto-Generat ed Referral 07/23/2022 08/22/2023 1 1 [facility] for referral (narrative)* Diagnostic Procedure Only (Routine) - Authorized Specialty Diagnoses / Procedures Referred By Yueac t Referred To Contact US IMAGING Diagnoses Right ureteral stone Procedures US KIDNEY/BLADDER US RETROPERITONEAL REAL TIME W/IMAGE COMPLETE Vicky Crowley APRN.[employer] [address] [place] [address] [place] [address] Referral ID Status Reason Start Date Expiration Date Visits Requested Visits Authorized [id number] Authorized Auto-Generat ed Referral 03/10/2024 1 1 * Diagnostic Procedure Only (Routine) - Pending Review Specialty Diagnoses / Procedures Referred By Juan Francisco t Referred To Contact XR IMAGING Diagnoses Right ureteral stone Procedures XR ABDOMEN 1V SUPINE RADIOLOGIC EXAM ABDOMEN 1 VIEW Vicky Crowley, 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.[employer] [address] [place] [address] [place] [address] Referral ID Status Reason Start Date Expiration Date Visits Requested Visits Authorized [id number] Pending Review Auto-Generat ed Referral 03/10/2024 1 1 [facility] for referral (narrative)* Diagnostic Procedure Only (Routine) - Closed Specialty Diagnoses / Procedures Referred By Contac t Referred To Contact [facility] IM[facility] Diagnoses Right ureteral stone Procedures US KIDNEY/BLADDER US RETROPERITONEAL REAL TIME W/IMAGE COMPLETE Vicky Crowley, EMORY.[employer] [address] [place] [address] [place] [address] Referral ID Status Reason Start Date Expiration Date V isits Requested Visits Authorized [id number] Closed Auto-Generate d Referral 02/09/2023 03/10/2024 1 1 [facility] for referral (narrative)* Diagnostic Procedure Only (Routine) - Closed Specialty Diagnoses / Procedures Referred By Contac t Referred To Contact US IMAG[facility] Diagnoses Hair loss Thyroid nodule Procedures US THYROID/PARATHYROID US SOFT TISSUE HEAD & NECK REAL TIME IMGE DOCM Jose Luis Toledo, DO [address] [place] [address] [place] [address] Referral ID Status Reason Start Date Expiration Date V isits Requested Visits Authorized [id number] Closed Auto-Generate d Referral 05/12/2022 06/11/2023 1 1 [facility] for referral (narrative)* Diagnostic Procedure Only (Routine) - Closed Specialty Diagnoses / Procedures Referred By Contac t Referred To Contact XR IMAGING Diagnoses Sacral pain Chronic midline low back pain without sciatica Procedures XR LUMBAR GENERAL 3V AP/LAT/L5-S1 RADEX SPINE LUMBOSACRAL 2/3 VIEWS Jose Luis Toledo, DO [address] [place] [address] [place] [address] Referral ID Status Reason Start Date Expiration Date V isits Requested Visits Authorized [id number] Closed Auto-Generate d Referral 05/12/2022 06/11/2023 1 1 [facility] for referral (narrative)* Diagnostic Procedure Only (Routine) - Closed Specialty Diagnoses / Procedures Referred By Contac t Referred To Contact XR IMAGING Diagnoses Right ureteral stone Procedures XR ABDOMEN 1V SUPINE RADIOLOGIC EXAM ABDOMEN 1 VIEW Vicky Crowley, 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.[employer] [address] [place] [address] [place] [address] Referral ID Status Reason Start Date Expiration Date V isits Requested Visits Authorized [id number] Closed Auto-Generate d Referral 02/09/2023 03/10/2024 1 1 [facility] for referral (narrative)* Diagnostic Procedure Only (Routine) - Closed Specialty Diagnoses / Procedures Referred By Contac t Referred To Contact XR IMAGING Diagnoses Sacral pain Chronic midline low back pain without sciatica Procedures XR SACRUM/COCCYX 3V AP/LAT RADEX SACRUM & COCCYX MINIMUM 2 VIEWS Jose Luis Toledo, [address] [place] [address] [place] [address] Referral ID Status Reason Start Date Expiration Date V isits Requested Visits Authorized [id number] Closed Auto-Generate d Referral 05/12/2022 06/11/2023 1 1 [facility] for referral (narrative)* Diagnostic Procedure Only (Routine) - Pending Review Specialty Diagnoses / Procedures Referred By Contac t Referred To Contact XR IMAGING Diagnoses Right ureteral stone Procedures XR ABDOMEN 1V SUPINE RADIOLOGIC EXAM ABDOMEN 1 VIEW Nelida Irving, 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.[employer] [address] [facility] [address] [place] [address] [place] [address] Referral ID Status Reason Start Date Expiration Date Visits Requested Visits Authorized [id number] Pending Review Auto-Generat ed Referral 09/22/2023 04/22/2024 1 1 [facility] for referral (narrative)* Diagnostic Procedure Only (Routine) - Pending Review Specialty Diagnoses / Procedures Referred By Contac t Referred To Contact [facility] Diagnoses Encounter for screening mammogram for breast cancer Procedures MIRELLA SCREENING SCREENING MAMMOGRAPHY BI 2-VIEW BREAST INC CAD Jose Luis Toledo, [address] [place] [address] [facility] [address] [place] [address] Referral ID Status Reason Start Date Expiration Date Visits Requested Visits Authorized [id number] Pending Review Auto-Generat ed Referral 07/01/2023 07/30/2024 1 1 [facility] for referral (narrative)* Diagnostic Procedure Only (Routine) - Pending Review Specialty Diagnoses / Procedures Referred By Contac t Referred To Contact XR IMAGING Diagnoses Calculus of kidney Procedures XR ABDOMEN 1V SUPINE RADIOLOGIC EXAM ABDOMEN 1 VIEW Nelida Irving APRN.[employer] [address] [address] [place] [address] Referral ID Status Reason Start Date Expiration Date Visits Requested Visits Authorized [id number] Pending Review Auto-Generat ed Referral 09/22/2023 10/21/2024 1 1 * MRI/CT (Routine) - Authorized Specialty Diagnoses / Procedures Referred By Contac t Referred To Contact CT IMAGING Diagnoses Calculus of kidney Procedures CT ABD/PEL WO IVCON CT ABD & PELVIS W/O CONTRAST Nelida Irving APRN.[employer] [address] [address] [place] [address] Referral ID Status Reason Start Date Expiration Date Visits Requested Visits Authorized [id number] Authorized Auto-Generat ed Referral 09/22/2023 04/26/2024 2 2 [facility] for referral (narrative)* Diagnostic Procedure Only (Routine) - Closed Specialty Diagnoses / Procedures Referred By Contac t Referred To Contact XR IMAGING Diagnoses Right ureteral stone Procedures XR ABDOMEN 1V SUPINE RADIOLOGIC EXAM ABDOMEN 1 VIEW Nelida Irving APRN.[employer] [address] [address] [place] [address] Referral ID Status Reason Start Date Expiration Date V isits Requested Visits Authorized [id number] Closed Auto-Generate d Referral 09/17/2023 04/22/2024 1 1 [facility] for referral (narrative)* Diagnostic Procedure Only (Urgent) [...] RADEX SPINE THORACIC 3 VIEWS Dee Flores APRN.[employer] [address] [place] [address] [place] [address] Referral ID Status Reason Start Date Expiration Date V isits Requested Visits Authorized [id number] Closed Auto-Generate d Referral 08/10/2023 09/08/2024 1 [...] RADEX SPINE LUMBOSACRAL 2/3 VIEWS Dee Flores APRN.[employer] [address] [place] [address] [place] [address] Referral ID Status Reason Start Date Expiration Date V isits Requested Visits Authorized [id number] Closed Auto-Generate d Referral 08/10/2023 09/08/2024 1 [...] RADEX HAND MINIMUM 3 VIEWS Dee Flores APRN.[employer] [address] [place] [address] [place] [address] Referral ID Status Reason Start Date Expiration Date V isits Requested Visits Authorized [id number] Closed Auto-Generate d Referral 08/10/2023 09/08/2024 1 [...] FOOT COMPLETE MINIMUM 3 VIEWS Dee Flores APRN.[employer] [address] [place] [address] [place] [address] Referral ID Status Reason Start Date Expiration Date V isits Requested Visits Authorized [id number] Closed Auto-Generate d Referral 08/10/2023 09/08/2024 1 1 [facility] for referral (narrative)* Diagnostic Procedure Only (Routine) - Closed Specialty Diagnoses / Procedures [facility] To Contact [facility] Diagnoses Lumbar back pain Procedures XR LUMBAR GENERAL 3V AP/LAT/L5-S1 X-RAY L-S SPINE AP/LATERAL Shobha Perez APRN.CNP [address] [place] [address] [place] [address] Referral ID Status Reason Start Date Expiration Date V isits Requested Visits Authorized [id number] Closed Auto-Generate d Referral 12/03/2020 01/02/2022 1 1 [facility] for referral (narrative)* Outpatient Procedure (Routine) - Authorized Specialty Diagnoses / Procedures [facility] Diagnoses Dyslipidemia ORTEZ (dyspnea on exertion) Procedures ECHO ECHO TTHRC R-T 2D W/WOM-MODE COMPL SPEC&COLR D Jose Luis Toledo DO [address] [place] [address] [facility] [address] [place] [address] Referral ID Status Reason Start Date Expiration Date Visits Requested Visits Authorized [id number] Authorized Auto-Generat ed Referral 04/04/2024 05/03/2024 1 1 * Medication Prior Authorization - Closed Specialty Diagnoses / Procedures [facility] To Contact Diagnoses IFG (impaired fasting glucose) Dyslipidemia Dysmetabolic syndrome Hyperinsulinemia Jose Luis Toledo DO [address] [place] [address] Referral ID Status Reason Start Date Expiration Date Visits Re quested Visits Authorized [id number] Closed 1 1 * Diagnostic Procedure Only (Routine) - Authorized Specialty Diagnoses / Procedures [facility] Ref[facility] To Contact [facility] Diagnoses Hypothyroidism, acquired Thyroid nodule Procedures US THYROID/PARATHYROID US SOFT TISSUE HEAD & NECK REAL TIME IMGE DOCM Jose Luis Toledo, DO [address] [place] [address] [place] [address] Referral ID Status Reason Start Date Expiration Date Visits Requested Visits Authorized [id number] Authorized Auto-Generat ed Referral 04/04/2024 05/04/2025 1 1 [facility] for referral (narrative)No reason for referral information availableWSelect [facility] [place] Work Phone: [facility] visit Narrative* Diagnostic Procedure Only (Routine) - Closed Specialty Diagnoses / Procedures Referred By Contac t Referred To Contact XR IMAGING Diagnoses Sacral pain Chronic midline low back pain without sciatica Procedures XR LUMBAR GENERAL 3V AP/LAT/L5-S1 RADEX SPINE LUMBOSACRAL 2/3 VIEWS Jose Luis Toledo, DO [address] [place] [address] [place] [address] Referral ID Status Reason Start Date Expiration Date V isits Requested Visits Authorized [id number] Closed Auto-Generate d Referral 05/12/2022 06/11/2023 1 1 [facility] for visit Narrative* Diagnostic Procedure Only (Routine) - Closed Specialty Diagnoses / Procedures Referred By Contac t Referred To Contact XR IMAGING Diagnoses Right ureteral stone Procedures XR ABDOMEN 1V SUPINE RADIOLOGIC EXAM ABDOMEN 1 VIEW Vicky Crowley, 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 [address] [place] [address] [place] [address] Referral ID Status Reason Start Date Expiration Date V isits Requested Visits Authorized [id number] Closed Auto-Generate d Referral 02/09/2023 03/10/2024 1 1 [facility] for visit Narrative* Diagnostic Procedure Only (Routine) - Closed Specialty Diagnoses / Procedures Referred By Contac t Referred To Contact XR IMAGING Diagnoses Sacral pain Chronic midline low back pain without sciatica Procedures XR SACRUM/COCCYX 3V AP/LAT RADEX SACRUM & COCCYX MINIMUM 2 VIEWS Jose Luis Toledo, DO [address] [place] [address] [place] [address] Referral ID Status Reason Start Date Expiration Date V isits Requested Visits Authorized [id number] Closed Auto-Generate d Referral 05/12/2022 06/11/2023 1 1 [facility] for visit Narrative* Diagnostic Procedure Only (Routine) - Closed Specialty Diagnoses / Procedures Referred By Contac t Referred To Contact XR IMAGING Diagnoses Right ureteral stone Procedures XR ABDOMEN 1V SUPINE RADIOLOGIC EXAM ABDOMEN 1 VIEW Nelida Irving, 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 [address] [address] [place] [address] Referral ID Status Reason Start Date Expiration Date V isits Requested Visits Authorized [id number] Closed Auto-Generate d Referral 09/17/2023 04/22/2024 1 1 [facility] for visit Narrative* Diagnostic Procedure Only (Urgent) [...] RADEX SPINE THORACIC 3 VIEWS Dee Flores, 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 [address] [place] [address] [place] [address] Referral ID Status Reason Start Date Expiration Date V isits Requested Visits Authorized [id number] Closed Auto-Generate d Referral 08/10/2023 09/08/2024 1 1 [facility] for visit Narrative* Diagnostic Procedure Only (Routine) - Closed Specialty Diagnoses / Procedures Referred By Contac t Referred To Contact XR IMAGING Diagnoses Lumbar back pain Procedures XR LUMBAR GENERAL 3V AP/LAT/L5-S1 X-RAY L-S SPINE AP/LATERAL Shobha Perez, 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 [address] [place] [address] [place] [address] Referral ID Status Reason Start Date Expiration Date V isits Requested Visits Authorized [id number] Closed Auto-Generate d Referral 12/03/2020 01/02/2022 1 1 [facility] Summary Purpose Family History No Family History [...] October 25, 2020 1 1:57pm Power of Line Staker No October 25, 2020 11:57pm Documents on File Type Date 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 Advance Directive(s) 06/24/2019 2:58 PM Advance Directive Response Recorded Date/ Time Living Will No August 15, 2021 10:16am Power of Line Staker No August 15 10:16am Latest Code Status on File Code Status Date Activated Date Inactivated Comments Full Code 01/27/2022 10:54 AM Advance Directive Response Recorded Date/ Time Living Will No January 30 8:10am Power of Line Staker No January 30 8:10am Advance Directive Response Recorded Date/ Time Living Will No January 30 7:10am Power of Line Staker No January 30 7:10am Advance Directive Response Recorded Date/ Time Living Will No February 14 5:40am Power of Line Staker No February 14, 2023 5:40am Advance Directive Response Recorded Date/ Time Living Will No February 24 8:37pm Power of Line Staker No February 24, 2023 8:37pm Advance Directive Response Recorded Date/ Time Living Will No February 24 7:37pm Power of Line Staker No February 24, 2023 7:37pm Advance Directive Response Recorded Date/ Time Living Will No November 25, 2023 10:30pm Do you have a Healthcare Power of Line Staker? 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) December 22, 2024 12 :33pm 1 Y [...] CT ABD & PELVIS W/CONTRAST Dee Flores, 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 [address] [place] [address] Ct Imaging Referral ID Status Reason Start Date Expiration Date Visits Requested Visits Authorized [id number] Additional Clinical Info Needed Auto-Generat ed Referral 02/27/2022 03/29/2023 1 1 Specialty Diagnoses / Procedures Referred By Contac t Referred To Contact [facility] Diagnoses Sacral pain Chronic midline low back pain without sciatica Procedures CONSULT TO PAIN MGT OFFICE/OUTPATIENT NEW HIGH MDM 60-74 MINUTES Jose Luis Toledo, DO [address] [place] [address] Anest[facility] [place] [address] [place] [address] Referral ID Status Reason Start Date Expiration Date V isits Requested Visits Authorized [id number] Closed PCP Requested Referral 05/12/2022 05/12/2023 1 1 Specialty Diagnoses / Procedures Referred By Contac t Referred To Contact XR IMAGING Diagnoses Sacral pain Chronic midline low back pain without sciatica Procedures XR LUMBAR GENERAL 3V AP/LAT/L5-S1 RADEX SPINE LUMBOSACRAL 2/3 VIEWS Jose Luis Toledo, DO [address] [place] [address] Xr Imaging Referral ID Status Reason Start Date Expiration Date Visits Requested Visits Authorized [id number] Authorized Auto-Generat ed Referral 05/12/2022 06/11/2023 1 1 Specialty Diagnoses / Procedures Referred By Contac t Referred To Contact XR IMAGING Diagnoses Sacral pain Chronic midline low back pain without sciatica Procedures XR SACRUM/COCCYX 3V AP/LAT RADEX SACRUM & COCCYX MINIMUM 2 VIEWS Jose Luis Toledo, DO [address] [place] [address] Xr Imaging Referral ID Status Reason Start Date Expiration Date Visits Requested Visits Authorized [id number] Authorized Auto-Generat ed Referral 05/12/2022 06/11/2023 1 1 Specialty Diagnoses / Procedures Referred By Contac t Referred To Contact US IMAGING Diagnoses Hair loss Thyroid nodule Procedures US THYROID/PARATHYROID US SOFT TISSUE HEAD & NECK REAL TIME IMGE DOCM Jose Luis Toledo, DO [address] [place] [address] Us Imaging Referral ID Status Reason Start Date Expiration Date Visits Requested Visits Authorized [id number] Authorized Auto-Generat ed Referral 05/12/2022 06/11/2023 1 1 Specialty Diagnoses / Procedures Referred By Contac t Referred To Contact CT IMAGING Diagnoses Acute right flank pain History of renal stone Procedures CT FLANK WO IVCON CT ABD & PELVIS W/O CONTRAST Jose Luis Toledo, DO [address] [place] [address] Ct Imaging Referral ID Status Reason Start Date Expiration Date Visits Requested Visits Authorized [id number] Authorized Auto-Generat ed Referral 05/12/2022 07/11/2022 1 1 Specialty Diagnoses / Procedures Referred By Contac t Referred To Contact Diagnoses Right nephrolithiasis Jose Luis Toledo, DO [address] [place] [address] Referral ID Status Reason Start Date Expiration Date Visits Re quested Visits Authorized [id number] Closed 1 1 Specialty Diagnoses / Procedures Referred By Contac t Referred To Contact Diagnoses Impaired concentration 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, 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 [address] [place] [address] Referral ID Status Reason Start Date Expiration Date Visits Re quested Visits Authorized [id number] Closed 1 1 Specialty Diagnoses / Procedures Referred By Contac t Referred To Contact Urology Diagnoses Kidney stone Gross hematuria Flank pain Procedures CONSULT TO UROLOGY OFFICE/OUTPATIENT [facility] MDM 60-74 MINUTES 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, 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 [address] [place] [address] Referral ID Status Reason Start Date Expiration Date Visits Requested Visits Authorized [id number] Authorized PCP Requested Referral 02/02/2023 02/02/2024 1 1 Specialty Diagnoses / Procedures Referred By Contac t Referred To Contact CT IMAGING Diagnoses Kidney stone Gross hematuria Flank pain Procedures CT FLANK WO IVCON CT ABD & PELVIS W/O CONTRAST 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, 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 [address] [place] [address] [place] [address] Referral ID Status Reason Start Date Expiration Date Visits Requested Visits Authorized [id number] Authorized Auto-Generat ed Referral 02/02/2023 04/03/2023 1 1 Specialty Diagnoses / Procedures Referred By Contac t Referred To Contact CT IMAGING Diagnoses Acute right flank pain History of renal stone Procedures CT FLANK WO IVCON CT ABD & PELVIS W/O CONTRAST Jose Luis Toledo, DO [address] [place] [address] [place] [address] Referral ID Status Reason Start Date Expiration Date V isits Requested Visits Authorized [id number] Closed Auto-Generate d Referral 05/12/2022 07/11/2022 1 1 Specialty Diagnoses / Procedures Referred By Contac t Referred To Contact CT IMAGING Diagnoses Left lower quadrant abdominal pain Procedures CT ABD/PEL W IVCON CT ABD & PELVIS W/CONTRAST Dee Flores APRN.[employer] [address] [place] [address] [place] [address] Referral ID Status Reason Start Date Expiration Date V isits Requested Visits Authorized [id number] Closed Auto-Generat ed Referral Patient Cleared - Admin/Chairm an/Director advise to proceed or did not respond 02/28/2022 05/19/2022 1 1 Specialty Diagnoses / Procedures Referred By Contac t Referred To Contact Diagnoses Impaired concentration Jose Luis Toledo, DO [address] [place] [address] Referral ID Status Reason Start Date Expiration Date Visits Re quested Visits Authorized [id number] Closed 1 1 Referral ID Status Reason Start Date Expiration Date Visits Re quested Visits Authorized [id number] Closed 1 1 Referral ID Status Reason Start Date Expiration Date Visits Re quested Visits Authorized [id number] Closed 1 1 Referral ID Status Reason Start Date Expiration Date Visits Re quested Visits Authorized [id number] Closed 1 1 Specialty Diagnoses / Procedures Referred By Contac t Referred To Contact Rheumatology Diagnoses Arthralgia, unspecified joint Myalgia Toe swelling Finger swelling Chronic midline low back pain without sciatica Acute midline thoracic back pain Hypothyroidism, acquired Family history of osteoarthritis Pain in both hands Family history of rheumatoid arthritis Procedures CONSULT TO RHEUM/IMMUN DISEASE OFFICE/OUTPATIENT [facility] 60 MINUTES Dee Flores APRN.[employer] [address] [place] [address] Referral ID Status Reason Start Date Expiration Date Visits Requested Visits Authorized [id number] Authorized PCP Requested Referral 08/10/2023 08/09/2024 1 [...] RADEX SPINE THORACIC 3 VIEWS Dee Flores, 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 [address] [place] [address] [place] [address] Referral ID Status Reason Start Date Expiration Date V isits Requested Visits Authorized [id number] Closed Auto-Generate d Referral 08/10/2023 09/08/2024 1 [...] RADEX SPINE LUMBOSACRAL 2/3 VIEWS Dee Flores [employer] [address] [place] [address] [place] [address] Referral ID Status Reason Start Date Expiration Date V isits Requested Visits Authorized [id number] Closed Auto-Generate d Referral 08/10/2023 09/08/2024 1 1 Specialty Diagnoses / Procedures Referred By Contac t Referred To Contact XR IMAGING Diagnoses Obesity, Class II, BMI 35-39.9 Arthralgia, unspecified joint Myalgia Finger swelling Hypothyroidism, acquired Family history of osteoarthritis Pain in both hands Family history of rheumatoid arthritis Procedures XR HAND GENERAL 3V PA/LAT/OBL BILATERAL RADEX HAND MINIMUM 3 VIEWS Dee Flores, 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 [address] [place] [address] [place] [address] Referral ID Status Reason Start Date Expiration Date V isits Requested Visits Authorized [id number] Closed Auto-Generate d Referral 08/10/2023 09/08/2024 1 1 Specialty Diagnoses / Procedures Referred By Contac t Referred To Contact XR IMAGING Diagnoses Obesity, Class II, BMI 35-39.9 Arthralgia, unspecified joint Myalgia Toe swelling Hypothyroidism, acquired Family history of osteoarthritis Family history of rheumatoid arthritis Procedures XR FOOT GENERAL 3V AP/LAT/OBL BILATERAL RADEX FOOT COMPLETE MINIMUM 3 VIEWS Dee Flores, 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 [address] [place] [address] [place] [address] Referral ID Status Reason Start Date Expiration Date V isits Requested Visits Authorized [id number] Closed Auto-Generate d Referral 08/10/2023 09/08/2024 1 1 Referral ID Status Reason Start Date Expiration Date Visits Re quested Visits Authorized [id number] Closed 1 1 Specialty Diagnoses / Procedures Referred By Contac t Referred To Contact Diagnoses Vitamin B12 deficiency Jose Luis Toledo L, DO [address] [place] [address] Referral ID Status Reason Start Date Expiration Date Visits Re quested Visits Authorized [id number] Closed 1 1 Specialty Diagnoses / Procedures Referred By Contac t Referred To Contact Dermatology Diagnoses Lichen sclerosus Procedures CONSULT TO DERMATOLOGY Naveen Mora MD [address] [place] [address] Referral ID Status Reason Start Date Expiration Date Visits Requested Visits Authorized [id number] Ref Not Required PCP Requested Referral 11/11/2023 11/10/2024 1 1 Specialty Diagnoses / Procedures Referred By Contac t Referred To Contact US IMAGING Diagnoses Finger swelling Procedures US HAND/WRIST SYNOVIAL SCREEN LEFT US COMPL JOINT R-T W/IMAGE DOCUMENTATION Naveen Mora MD [address] [place] [address] [place] [address] Referral ID Status Reason Start Date Expiration Date Visits Requested Visits Authorized [id number] New Request Auto-Generat ed Referral 11/11/2023 12/10/2024 1 1 Specialty Diagnoses / Procedures Referred By Contac t Referred To Contact US IMAGING Diagnoses Finger swelling Procedures US HAND/WRIST SYNOVIAL SCREEN RIGHT US COMPL JOINT R-T W/IMAGE DOCUMENTATION Naveen Mora MD [address] [place], [place] [id number] [place] [address] Referral ID Status Reason Start Date Expiration Date Visits Requested Visits Authorized [id number] New Request Auto-Generat ed Referral 11/11/2023 12/10/2024 1 1 Specialty Diagnoses / Procedures Referred By Contac t Referred To Contact CT IMAGING Diagnoses Endometriosis Right lower quadrant abdominal pain Procedures CT ABD/PEL W IVCON CT ABD & PELVIS W/CONTRAST Jose Luis Toledo, [address] [place] [address] [place] [address] Referral ID Status Reason Start Date Expiration Date V isits Requested Visits Authorized [id number] Open Auto-Generate d Referral 01/04/2024 02/02/2025 2 2 Referral ID Status Reason Start Date Expiration Date Visits Re quested Visits Authorized [id number] Closed 1 1 Referral ID Status Reason Start Date Expiration Date V isits Requested Visits Authorized [id number] Closed Auto-Generate d Referral 01/06/2024 02/04/2024 2 2 Specialty Diagnoses / Procedures Referred By Contac t Referred To Contact Diagnoses Acute pain of right shoulder Procedures CONSULT TO MASSAGE THERAPY OFFICE/OUTPATIENT NEW HIGH MDM 60 MINUTES 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, 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 [address] [place] [address] Referral ID Status Reason Start Date Expiration Date Visits Requested Visits Authorized [id number] Pending Review PCP Requested Referral 05/05/2024 05/05/2025 1 1 Specialty Diagnoses / Procedures Referred By Contac t Referred To Contact XR IMAGING Diagnoses Acute pain of right shoulder Procedures XR SHOULDER GENERAL 3V OR MORE AP/TRUE AP/OTHER RIGHT RADEX SHOULDER COMPLETE MINIMUM 2 VIEWS 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, 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 [address] [place] [address] [place] [address] Referral ID Status Reason Start Date Expiration Date Visits Requested Visits Authorized [id number] New Request Auto-Generat ed Referral 05/05/2024 06/04/2025 [...] section and content) DATE CREATED AUTHOR 10/16/2017 [facility] DATE CREATED AUTHOR AUTHOR'S ORGANIZ ATION 05/19/2020 [facility] DATE CREATED AUTHOR AUTHOR'S ORGANIZ ATION 02/05/2022 [facility] DATE CREATED AUTHOR AUTHOR'S ORGANIZ ATION 02/12/2023 [facility] DATE CREATED AUTHOR AUTHOR'S ORGANIZ ATION 02/20/2023 [facility] DATE CREATED AUTHOR AUTHOR'S ORGANIZ ATION 10/03/2023 [facility] DATE CREATED AUTHOR AUTHOR'S ORGANIZ ATION 01/16/2025 [facility] DATE CREATED AUTHOR AUTHOR'S ORGANIZ ATION 01/18/2025 [facility] Goals (unrecognized section and content) Goals may [...] or prosecute any alcohol or drug abuse patient.[facility] the event this information is protected by the Federal Confidentiality of Alcohol and Drug Abuse Patient Records regulations: The Federal rules restrict any use of the information to criminally investigate or prosecute any alcohol or drug abuse patient.[facility]ima[facility] the event this information is protected by the Federal Confidentiality of Alcohol and Drug Abuse Patient Records regulations: The Federal rules restrict any use of the information to criminally investigate or prosecute any alcohol or drug abuse patient.[facility]ima[facility] the event this information is protected by the Federal Confidentiality of Alcohol and Drug Abuse Patient Records regulations: The Federal rules restrict any use of the information to criminally investigate or prosecute any alcohol or drug abuse patient.[facility]ima[facility] the event this information is protected by the Federal Confidentiality of Alcohol and Drug Abuse Patient Records regulations: The Federal rules restrict any use of the information to criminally investigate or prosecute any alcohol or drug abuse patient.[facility]ima[facility] the event this information is protected by the Federal Confidentiality of Alcohol and Drug Abuse Patient Records regulations: The Federal rules restrict any use of the information to criminally investigate or prosecute any alcohol or drug abuse patient.[facility]ima[facility] the event this information is protected by the Federal Confidentiality of Alcohol and Drug Abuse Patient Records regulations: The Federal rules restrict any use of the information to criminally investigate or prosecute any alcohol or drug abuse patient.[facility]ima[facility] the event this information is protected by the Federal Confidentiality of Alcohol and Drug Abuse Patient Records regulations: The Federal rules restrict any use of the information to criminally investigate or prosecute any alcohol or drug abuse patient.[facility]ima[facility] the event this information is protected by the Federal Confidentiality of Alcohol and Drug Abuse Patient Records regulations: The Federal rules restrict any use of the information to criminally investigate or prosecute any alcohol or drug abuse patient.[facility]ima[facility] the event this information is protected by the Federal Confidentiality of Alcohol and Drug Abuse Patient Records regulations: The Federal rules restrict any use of the information to criminally investigate or prosecute any alcohol or drug abuse patient.[facility]ima[facility] the event this information is protected by the Federal Confidentiality of Alcohol and Drug Abuse Patient Records regulations: The Federal rules restrict any use of the information to criminally investigate or prosecute any alcohol or drug abuse patient.[facility]ima[facility] the event this information is protected by the Federal Confidentiality of Alcohol and Drug Abuse Patient Records regulations: The Federal rules restrict any use of the information to criminally investigate or prosecute any alcohol or drug abuse patient.[facility]imaIn the event this information is protected by the Federal Confidentiality of Alcohol and Drug Abuse Patient Records regulations: The Federal rules restrict any use of the information to criminally investigate or prosecute any alcohol or drug abuse patient.[facility]imaIn the event this information is protected by the Federal Confidentiality of Alcohol and Drug Abuse Patient Records regulations: The Federal rules restrict any use of the information to criminally investigate or prosecute any alcohol or drug abuse patient.[facility]imaIn the event this information is protected by the Federal Confidentiality of Alcohol and Drug Abuse Patient Records regulations: The Federal rules restrict any use of the information to criminally investigate or prosecute any alcohol or drug abuse patient.[facility]imaIn the event this information is protected by the Federal Confidentiality of Alcohol and Drug Abuse Patient Records regulations: The Federal rules restrict any use of the information to criminally investigate or prosecute any alcohol or drug abuse patient.[facility]imaIn the event this information is protected by the Federal Confidentiality of Alcohol and Drug Abuse Patient Records regulations: The Federal rules restrict any use of the information to criminally investigate or prosecute any alcohol or drug abuse patient.[facility]imaIn the event this information is protected by the Federal Confidentiality of Alcohol and Drug Abuse Patient Records regulations: The Federal rules restrict any use of the information to criminally investigate or prosecute any alcohol or drug abuse patient.[facility]imaIn the event this information is protected by the Federal Confidentiality of Alcohol and Drug Abuse Patient Records regulations: The Federal rules restrict any use of the information to criminally investigate or prosecute any alcohol or drug abuse patient.[facility]imaIn the event this information is protected by the Federal Confidentiality of Alcohol and Drug Abuse Patient Records regulations: The Federal rules restrict any use of the information to criminally investigate or prosecute any alcohol or drug abuse patient.[facility]imaIn the event this information is protected by the Federal Confidentiality of Alcohol and Drug Abuse Patient Records regulations: The Federal rules restrict any use of the information to criminally investigate or prosecute any alcohol or drug abuse patient.[facility]imaIn the event this information is protected by the Federal Confidentiality of Alcohol and Drug Abuse Patient Records regulations: The Federal rules restrict any use of the information to criminally investigate or prosecute any alcohol or drug abuse patient.[facility]imaIn the event this information is protected by the Federal Confidentiality of Alcohol and Drug Abuse Patient Records regulations: The Federal rules restrict any use of the information to criminally investigate or prosecute any alcohol or drug abuse patient.[facility]imaIn the event this information is protected by the Federal Confidentiality of Alcohol and Drug Abuse Patient Records regulations: The Federal rules restrict any use of the information to criminally investigate or prosecute any alcohol or drug abuse patient.[facility]imaIn the event this information is protected by the Federal Confidentiality of Alcohol and Drug Abuse Patient Records regulations: The Federal rules restrict any use of the information to criminally investigate or prosecute any alcohol or drug abuse patient.[facility]imaIn the event this information is protected by the Federal Confidentiality of Alcohol and Drug Abuse Patient Records regulations: The Federal rules restrict any use of the information to criminally investigate or prosecute any alcohol or drug abuse patient.[facility]imaIn the event this information is protected by the Federal Confidentiality of Alcohol and Drug Abuse Patient Records regulations: The Federal rules restrict any use of the information to criminally investigate or prosecute any alcohol or drug abuse patient.[facility]imaIn the event this information is protected by the Federal Confidentiality of Alcohol and Drug Abuse Patient Records regulations: The Federal rules restrict any use of the information to criminally investigate or prosecute any alcohol or drug abuse patient.[facility]imaIn the event this information is protected by the Federal Confidentiality of Alcohol and Drug Abuse Patient Records regulations: The Federal rules restrict any use of the information to criminally investigate or prosecute any alcohol or drug abuse patient.[facility] LimaIn the event this information is protected by the Federal Confidentiality of Alcohol and Drug Abuse Patient Records regulations: The Federal rules restrict any use of the information to criminally investigate or prosecute any alcohol or drug abuse patient.[facility]In the event this information is protected by the Federal Confidentiality of Alcohol and Drug Abuse Patient Records regulations: The Federal rules restrict any use of the information to criminally investigate or prosecute any alcohol or drug abuse patient.[facility]In the event this information is protected by the Federal Confidentiality of Alcohol and Drug Abuse Patient Records regulations: The Federal rules restrict any use of the information to criminally investigate or prosecute any alcohol or drug abuse patient.[facility]In the event this information is protected by the Federal Confidentiality of Alcohol and Drug Abuse Patient Records regulations: The Federal rules restrict any use of the information to criminally investigate or prosecute any alcohol or drug abuse patient.[facility]In the event this information is protected by the Federal Confidentiality of Alcohol and Drug Abuse Patient Records regulations: The Federal rules restrict any use of the information to criminally investigate or prosecute any alcohol or drug abuse patient.[facility]In the event this information is protected by the Federal Confidentiality of Alcohol and Drug Abuse Patient Records regulations: The Federal rules restrict any use of the information to criminally investigate or prosecute any alcohol or drug abuse patient.[facility]In the event this information is protected by the Federal Confidentiality of Alcohol and Drug Abuse Patient Records regulations: The Federal rules restrict any use of the information to criminally investigate or prosecute any alcohol or drug abuse patient.[facility]In the event this information is protected by the Federal Confidentiality of Alcohol and Drug Abuse Patient Records regulations: The Federal rules restrict any use of the information to criminally investigate or prosecute any alcohol or drug abuse patient.[facility]In the event this information is protected by the Federal Confidentiality of Alcohol and Drug Abuse Patient Records regulations: The Federal rules restrict any use of the information to criminally investigate or prosecute any alcohol or drug abuse patient.[facility]In the event this information is protected by the Federal Confidentiality of Alcohol and Drug Abuse Patient Records regulations: The Federal rules restrict any use of the information to criminally investigate or prosecute any alcohol or drug abuse patient.[facility]In the event this information is protected by the Federal Confidentiality of Alcohol and Drug Abuse Patient Records regulations: The Federal rules restrict any use of the information to criminally investigate or prosecute any alcohol or drug abuse patient.[facility]In the event this information is protected by the Federal Confidentiality of Alcohol and Drug Abuse Patient Records regulations: The Federal rules restrict any use of the information to criminally investigate or prosecute any alcohol or drug abuse patient.[facility]In the event this information is protected by the Federal Confidentiality of Alcohol and Drug Abuse Patient Records regulations: The Federal rules restrict any use of the information to criminally investigate or prosecute any alcohol or drug abuse patient.[facility]In the event this information is protected by the Federal Confidentiality of Alcohol and Drug Abuse Patient Records regulations: The Federal rules restrict any use of the information to criminally investigate or prosecute any alcohol or drug abuse patient.[facility]In the event this information is protected by the Federal Confidentiality of Alcohol and Drug Abuse Patient Records regulations: The Federal rules restrict any use of the information to criminally investigate or prosecute any alcohol or drug abuse patient.[facility]In the event this information is protected by the Federal Confidentiality of Alcohol and Drug Abuse Patient Records regulations: The Federal rules restrict any use of the information to criminally investigate or prosecute any alcohol or drug abuse patient.[facility]In the event this information is protected by the Federal Confidentiality of Alcohol and Drug Abuse Patient Records regulations: The Federal rules restrict any use of the information to criminally investigate or prosecute any alcohol or drug abuse patient.[facility]In the event this information is protected by the Federal Confidentiality of Alcohol and Drug Abuse Patient Records regulations: The Federal rules restrict any use of the information to criminally investigate or prosecute any alcohol or drug abuse patient.[facility]In the event this information is protected by the Federal Confidentiality of Alcohol and Drug Abuse Patient Records regulations: The Federal rules restrict any use of the information to criminally investigate or prosecute any alcohol or drug abuse patient.[facility]In the event this information is protected by the Federal Confidentiality of Alcohol and Drug Abuse Patient Records regulations: The Federal rules restrict any use of the information to criminally investigate or prosecute any alcohol or drug abuse patient.[facility]In the event this information is protected by the Federal Confidentiality of Alcohol and Drug Abuse Patient Records regulations: The Federal rules restrict any use of the information to criminally investigate or prosecute any alcohol or drug abuse patient.[facility]In the event this information is protected by the Federal Confidentiality of Alcohol and Drug Abuse Patient Records regulations: The Federal rules restrict any use of the information to criminally investigate or prosecute any alcohol or drug abuse patient.[facility]In the event this information is protected by the Federal Confidentiality of Alcohol and Drug Abuse Patient Records regulations: The Federal rules restrict any use of the information to criminally investigate or prosecute any alcohol or drug abuse patient.[facility]In the event this information is protected by the Federal Confidentiality of Alcohol and Drug Abuse Patient Records regulations: The Federal rules restrict any use of the information to criminally investigate or prosecute any alcohol or drug abuse patient.[facility]In the event this information is protected by the Federal Confidentiality of Alcohol and Drug Abuse Patient Records regulations: The Federal rules restrict any use of the information to criminally investigate or prosecute any alcohol or drug abuse patient.[facility]In the event this information is protected by the Federal Confidentiality of Alcohol and Drug Abuse Patient Records regulations: The Federal rules restrict any use of the information to criminally investigate or prosecute any alcohol or drug abuse patient.[facility]In the event this information is protected by the Federal Confidentiality of Alcohol and Drug Abuse Patient Records regulations: The Federal rules restrict any use of the information to criminally investigate or prosecute any alcohol or drug abuse patient.[facility]In the event this information is protected by the Federal Confidentiality of Alcohol and Drug Abuse Patient Records regulations: The Federal rules restrict any use of the information to criminally investigate or prosecute any alcohol or drug abuse patient.[facility]In the event this information is protected by the Federal Confidentiality of Alcohol and Drug Abuse Patient Records regulations: The Federal rules restrict any use of the information to criminally investigate or prosecute any alcohol or drug abuse patient.[facility]In the event this information is protected by the Federal Confidentiality of Alcohol and Drug Abuse Patient Records regulations: The Federal rules restrict any use of the information to criminally investigate or prosecute any alcohol or drug abuse patient.[facility]In the event this information is protected by the Federal Confidentiality of Alcohol and Drug Abuse Patient Records regulations: The Federal rules restrict any use of the information to criminally investigate or prosecute any alcohol or drug abuse patient.[facility]In the event this information is protected by the Federal Confidentiality of Alcohol and Drug Abuse Patient Records regulations: The Federal rules restrict any use of the information to criminally investigate or prosecute any alcohol or drug abuse patient.[facility]In the event this information is protected by the Federal Confidentiality of Alcohol and Drug Abuse Patient Records regulations: The Federal rules restrict any use of the information to criminally investigate or prosecute any alcohol or drug abuse patient.[facility]In the event this information is protected by the Federal Confidentiality of Alcohol and Drug Abuse Patient Records regulations: The Federal rules restrict any use of the information to criminally investigate or prosecute any alcohol or drug abuse patient.[facility]In the event this information is protected by the Federal Confidentiality of Alcohol and Drug Abuse Patient Records regulations: The Federal rules restrict any use of the information to criminally investigate or prosecute any alcohol or drug abuse patient.[facility]In the event this information is protected by the Federal Confidentiality of Alcohol and Drug Abuse Patient Records regulations: The Federal rules restrict any use of the information to criminally investigate or prosecute any alcohol or drug abuse patient.[facility]In the event this information is protected by the Federal Confidentiality of Alcohol and Drug Abuse Patient Records regulations: The Federal rules restrict any use of the information to criminally investigate or prosecute any alcohol or drug abuse patient.[facility]In the event this information is protected by the Federal Confidentiality of Alcohol and Drug Abuse Patient Records regulations: The Federal rules restrict any use of the information to criminally investigate or prosecute any alcohol or drug abuse patient.[facility]In the event this information is protected by the Federal Confidentiality of Alcohol and Drug Abuse Patient Records regulations: The Federal rules restrict any use of the information to criminally investigate or prosecute any alcohol or drug abuse patient.[facility]In the event this information is protected by the Federal Confidentiality of Alcohol and Drug Abuse Patient Records regulations: The Federal rules restrict any use of the information to criminally investigate or prosecute any alcohol or drug abuse patient.[facility]In the event this information is protected by the Federal Confidentiality of Alcohol and Drug Abuse Patient Records regulations: The Federal rules restrict any use of the information to criminally investigate or prosecute any alcohol or drug abuse patient.[facility]In the event this information is protected by the Federal Confidentiality of Alcohol and Drug Abuse Patient Records regulations: The Federal rules restrict any use of the information to criminally investigate or prosecute any alcohol or drug abuse patient.[facility]In the event this information is protected by the Federal Confidentiality of Alcohol and Drug Abuse Patient Records regulations: The Federal rules restrict any use of the information to criminally investigate or prosecute any alcohol or drug abuse patient.[facility]In the event this information is protected by the Federal Confidentiality of Alcohol and Drug Abuse Patient Records regulations: The Federal rules restrict any use of the information to criminally investigate or prosecute any alcohol or drug abuse patient.[facility]In the event this information is protected by the Federal Confidentiality of Alcohol and Drug Abuse Patient Records regulations: The Federal rules restrict any use of the information to criminally investigate or prosecute any alcohol or drug abuse patient.[facility]In the event this information is protected by the Federal Confidentiality of Alcohol and Drug Abuse Patient Records regulations: The Federal rules restrict any use of the information to criminally investigate or prosecute any alcohol or drug abuse patient.[facility]In the event this information is protected by the Federal Confidentiality of Alcohol and Drug Abuse Patient Records regulations: The Federal rules restrict any use of the information to criminally investigate or prosecute any alcohol or drug abuse patient.[facility]In the event this information is protected by the Federal Confidentiality of Alcohol and Drug Abuse Patient Records regulations: The Federal rules restrict any use of the information to criminally investigate or prosecute any alcohol or drug abuse patient.[facility]In the event this information is protected by the Federal Confidentiality of Alcohol and Drug Abuse Patient Records regulations: The Federal rules restrict any use of the information to criminally investigate or prosecute any alcohol or drug abuse patient.[facility]In the event this information is protected by the Federal Confidentiality of Alcohol and Drug Abuse Patient Records regulations: The Federal rules restrict any use of the information to criminally investigate or prosecute any alcohol or drug abuse patient.[facility]In the event this information is protected by the Federal Confidentiality of Alcohol and Drug Abuse Patient Records regulations: The Federal rules restrict any use of the information to criminally investigate or prosecute any alcohol or drug abuse patient.[facility]In the event this information is protected by the Federal Confidentiality of Alcohol and Drug Abuse Patient Records regulations: The Federal rules restrict any use of the information to criminally investigate or prosecute any alcohol or drug abuse patient.[facility]In the event this information is protected by the Federal Confidentiality of Alcohol and Drug Abuse Patient Records regulations: The Federal rules restrict any use of the information to criminally investigate or prosecute any alcohol or drug abuse patient.[facility]In the event this information is protected by the Federal Confidentiality of Alcohol and Drug Abuse Patient Records regulations: The Federal rules restrict any use of the information to criminally investigate or prosecute any alcohol or drug abuse patient.[facility]In the event this information is protected by the Federal Confidentiality of Alcohol and Drug Abuse Patient Records regulations: The Federal rules restrict any use of the information to criminally investigate or prosecute any alcohol or drug abuse patient.[facility]In the event this information is protected by the Federal Confidentiality of Alcohol and Drug Abuse Patient Records regulations: The Federal rules restrict any use of the information to criminally investigate or prosecute any alcohol or drug abuse patient.[facility]In the event this information is protected by the Federal Confidentiality of Alcohol and Drug Abuse Patient Records regulations: The Federal rules restrict any use of the information to criminally investigate or prosecute any alcohol or drug abuse patient.[facility]In the event this information is protected by the Federal Confidentiality of Alcohol and Drug Abuse Patient Records regulations: The Federal rules restrict any use of the information to criminally investigate or prosecute any alcohol or drug abuse patient.[facility]In the event this information is protected by the Federal Confidentiality of Alcohol and Drug Abuse Patient Records regulations: The Federal rules restrict any use of the information to criminally investigate or prosecute any alcohol or drug abuse patient.[facility]In the event this information is protected by the Federal Confidentiality of Alcohol and Drug Abuse Patient Records regulations: The Federal rules restrict any use of the information to criminally investigate or prosecute any alcohol or drug abuse patient.[facility]In the event this information is protected by the Federal Confidentiality of Alcohol and Drug Abuse Patient Records regulations: The Federal rules restrict any use of the information to criminally investigate or prosecute any alcohol or drug abuse patient.[facility]In the event this information is protected by the Federal Confidentiality of Alcohol and Drug Abuse Patient Records regulations: The Federal rules restrict any use of the information to criminally investigate or prosecute any alcohol or drug abuse patient.[facility]In the event this information is protected by the Federal Confidentiality of Alcohol and Drug Abuse Patient Records regulations: The Federal rules restrict any use of the information to criminally investigate or prosecute any alcohol or drug abuse patient.[facility]In the event this information is protected by the Federal Confidentiality of Alcohol and Drug Abuse Patient Records regulations: The Federal rules restrict any use of the information to criminally investigate or prosecute any alcohol or drug abuse patient.[facility]In the event this information is protected by the Federal Confidentiality of Alcohol and Drug Abuse Patient Records regulations: The Federal rules restrict any use of the information to criminally investigate or prosecute any alcohol or drug abuse patient.[facility]In the event this information is protected by the Federal Confidentiality of Alcohol and Drug Abuse Patient Records regulations: The Federal rules restrict any use of the information to criminally investigate or prosecute any alcohol or drug abuse patient.[facility]In the event this information is protected by the Federal Confidentiality of Alcohol and Drug Abuse Patient Records regulations: The Federal rules restrict any use of the information to criminally investigate or prosecute any alcohol or drug abuse patient.[facility]In the event this information is protected by the Federal Confidentiality of Alcohol and Drug Abuse Patient Records regulations: The Federal rules restrict any use of the information to criminally investigate or prosecute any alcohol or drug abuse patient.[facility]In the event this information is protected by the Federal Confidentiality of Alcohol and Drug Abuse Patient Records regulations: The Federal rules restrict any use of the information to criminally investigate or prosecute any alcohol or drug abuse patient.[facility]In the event this information is protected by the Federal Confidentiality of Alcohol and Drug Abuse Patient Records regulations: The Federal rules restrict any use of the information to criminally investigate or prosecute any alcohol or drug abuse patient.[facility]In the event this information is protected by the Federal Confidentiality of Alcohol and Drug Abuse Patient Records regulations: The Federal rules restrict any use of the information to criminally investigate or prosecute any alcohol or drug abuse patient.[facility]In the event this information is protected by the Federal Confidentiality of Alcohol and Drug Abuse Patient Records regulations: The Federal rules restrict any use of the information to criminally investigate or prosecute any alcohol or drug abuse patient.[facility]In the event this information is protected by the Federal Confidentiality of Alcohol and Drug Abuse Patient Records regulations: The Federal rules restrict any use of the information to criminally investigate or prosecute any alcohol or drug abuse patient.[facility]In the event this information is protected by the Federal Confidentiality of Alcohol and Drug Abuse Patient Records regulations: The Federal rules restrict any use of the information to criminally investigate or prosecute any alcohol or drug abuse patient.[facility]In the event this information is protected by the Federal Confidentiality of Alcohol and Drug Abuse Patient Records regulations: The Federal rules restrict any use of the information to criminally investigate or prosecute any alcohol or drug abuse patient.[facility]In the event this information is protected by the Federal Confidentiality of Alcohol and Drug Abuse Patient Records regulations: The Federal rules restrict any use of the information to criminally investigate or prosecute any alcohol or drug abuse patient.[facility]In the event this information is protected by the Federal Confidentiality of Alcohol and Drug Abuse Patient Records regulations: The Federal rules restrict any use of the information to criminally investigate or prosecute any alcohol or drug abuse patient.[facility]In the event this information is protected by the Federal Confidentiality of Alcohol and Drug Abuse Patient Records regulations: The Federal rules restrict any use of the information to criminally investigate or prosecute any alcohol or drug abuse patient.[facility]In the event this information is protected by the Federal Confidentiality of Alcohol and Drug Abuse Patient Records regulations: The Federal rules restrict any use of the information to criminally investigate or prosecute any alcohol or drug abuse patient.[facility]imaIn the event this information is protected by the Federal Confidentiality of Alcohol and Drug Abuse Patient Records regulations: The Federal rules restrict any use of the information to criminally investigate or prosecute any alcohol or drug abuse patient.[facility]In the event this information is protected by the Federal Confidentiality of Alcohol and Drug Abuse Patient Records regulations: The Federal rules restrict any use of the information to criminally investigate or prosecute any alcohol or drug abuse patient.[facility]In the event this information is protected by the Federal Confidentiality of Alcohol and Drug Abuse Patient Records regulations: The Federal rules restrict any use of the information to criminally investigate or prosecute any alcohol or drug abuse patient.[facility]In the event this information is protected by the Federal Confidentiality of Alcohol and Drug Abuse Patient Records regulations: The Federal rules restrict any use of the information to criminally investigate or prosecute any alcohol or drug abuse patient.[facility]imaIn the event this information is protected by the Federal Confidentiality of Alcohol and Drug Abuse Patient Records regulations: The Federal rules restrict any use of the information to criminally investigate or prosecute any alcohol or drug abuse patient.[facility]imaIn the event this information is protected by the Federal Confidentiality of Alcohol and Drug Abuse Patient Records regulations: The Federal rules restrict any use of the information to criminally investigate or prosecute any alcohol or drug abuse patient.[facility]imaIn the event this information is protected by the Federal Confidentiality of Alcohol and Drug Abuse Patient Records regulations: The Federal rules restrict any use of the information to criminally investigate or prosecute any alcohol or drug abuse patient.[facility]imaIn the event this information is protected by the Federal Confidentiality of Alcohol and Drug Abuse Patient Records regulations: The Federal rules restrict any use of the information to criminally investigate or prosecute any alcohol or drug abuse patient.[facility] Reason for Visit (unrecogniz ed section and content) Reason Comments F/U 6 months thyroid lab work, cy st removed 07/30/21 @ [facility] Reason Comments Medication Follow-up start adipex Reason [...] ABD & PELVIS W/O CONTRAST 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, [employer] [address] [place] [address] [place] [address] Referral ID Status Reason Start Date Expiration Date V isits Requested Visits Authorized [id number] Closed Auto-Generate d Referral 02/02/2023 04/03/2023 1 1 Reason Comments Kidney Stones Specialty Diagnoses / Procedures Referred By Contac t Referred To Contact Urology Diagnoses Kidney stone Gross hematuria Flank pain Procedures CONSULT TO UROLOGY OFFICE/OUTPATIENT [facility] 60-74 MINUTES 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, 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.[employer] [address] [place] [address] Referral ID Status Reason Start Date Expiration Date V isits Requested Visits Authorized [id number] Closed PCP Requested Referral 02/02/2023 02/02/2024 1 1 Reason Comments Results Patient Update Reason Onset Date Comments Refill Request 02/19/2023 Reason Comments Patient Update Specialty Diagnoses / Procedures Referred By Contac t Referred To Contact CT IMAGING Diagnoses Left lower quadrant abdominal pain Procedures CT ABD/PEL W IVCON CT ABD & PELVIS W/CONTRAST Dee Flores, 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 [address] [place] [address] [place] [address] Referral ID Status Reason Start Date Expiration Date V isits Requested Visits Authorized [id number] Closed Auto-Generat ed Referral Patient Cleared - Admin/Chairm an/Director advise to proceed or did not respond 02/28/2022 05/19/2022 1 1 Reason Comments Radiology US Specialty Diagnoses / Procedures Referred By Contac t Referred To Contact US IMAGING Diagnoses Right ureteral stone Procedures US KIDNEY/BLADDER US RETROPERITONEAL REAL TIME W/IMAGE COMPLETE Vicky Crowley, 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 [address] [place] [address] [place] [address] Referral ID Status Reason Start Date Expiration Date V isits Requested Visits Authorized [id number] Closed Auto-Generate d Referral 02/09/2023 03/10/2024 1 1 Specialty Diagnoses / Procedures Referred By Contac t Referred To Contact US IMAGING Diagnoses Hair loss Thyroid nodule Procedures US THYROID/PARATHYROID US SOFT TISSUE HEAD & NECK REAL TIME IMGE DOCM Jose Luis Toledo, DO [address] [place] [address] [place] [address] Referral ID Status Reason Start Date Expiration Date V isits Requested Visits Authorized [id number] Closed Auto-Generate d Referral 05/12/2022 06/11/2023 1 [address] Specialty Diagnoses / Procedures Referred By Contac t Referred To Contact CT IMAGING Diagnoses Acute right flank pain History of renal stone Procedures CT FLANK WO IVCON CT ABD & PELVIS W/O CONTRAST Jose Luis Toledo L, DO [address] [place] [address] [place] [address] Referral ID Status Reason Start Date Expiration Date V isits Requested Visits Authorized [id number] Closed Auto-Generate d Referral 05/12/2022 07/11/2022 1 1 Reason Comments Follow Up 3 month follow up, p atient states she has a (R) kidney stone, appointment with Urology on 03/11 for removal Specialty Diagnoses / Procedures Referred By Juan Francisco barnett Referred To Contact Diagnoses Kidney stone Procedures LITHOTRIPSY XTRCORP SHOCK WAVE EXTRACORPOREAL SHOCKWAVE LITHOTRIPSY UNILATERAL Mr Surgery [address] [place] [address] Referral ID Status Reason Start Date Expiration Date Visits Re quested Visits Authorized [id number] 1 1 Reason Comments Kidney Stones Reason [...] ABD & PELVIS W/O CONTRAST Nelida Irving, 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 [address] [facility] [address] [place] [address] [place] [address] Referral ID Status Reason Start Date Expiration Date Visits Requested Visits Authorized [id number] Authorized Auto-Generat ed Referral 09/22/2023 04/26/2024 2 [...] NEW HIGH MDM 60 MINUTES Dee Flores, 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 [address] [place] [address] Referral ID Status Reason Start Date Expiration Date V isits Requested Visits Authorized [id number] Closed PCP Requested Referral 08/10/2023 08/09/2024 1 [...] & PELVIS W/CONTRAST Jose Luis Toledo, DO [address] [place] [address] Ct Imaging [facility] Referral ID Status Reason Start Date Expiration Date V isits Requested Visits Authorized [id number] Closed Auto-Generate d Referral 01/06/2024 02/04/2024 2 2 Reason Comments Radiology XR Reason Comments Radiology US Specialty Diagnoses / Procedures Referred By Yueac t Referred To Contact US IMAGING Diagnoses Hypothyroidism, acquired Thyroid nodule Procedures US THYROID/PARATHYROID US SOFT TISSUE HEAD & NECK REAL TIME IMGE DOCM Jose Luis Toledo, DO [address] [place] [address] Us Imaging [facility] Referral ID Status Reason Start Date Expiration Date V isits Requested Visits Authorized [id number] Closed Auto-Generate d Referral 04/04/2024 05/04/2025 1 [...] THORAX W/O CNTRST Jose Luis Toledo, DO [address] [place] [address] Phone: tel: fax: [place] [address] Referral ID Status Reason Start Date Expiration Date V isits Requested Visits Authorized [id number] Closed Auto-Generate d Referral 07/15/2024 08/13/2024 1 1 Reason Onset Date Comments Refill Request 08/22/2024 Reason Comments F/U 3 Month Anxiety Care Teams (unrecognized sec tion and content) Dentistry Teacher Relationship Specialty Start Date End Date Jose Luis Toledo, DO [address] [place], [place] [address] PCP - General Family Practice 09/15/14 Blade Mejias MD [address] [place] [phone] Neurosurgery 07/21/16 Dentistry Teacher Relationship Specialty Start Date End Date Jose Luis Toledo DO [address] [place], [place] 696[address] [phone] PCP - General Family Practice 09/15/14 Blade Mejias MD [address] [place] [phone] Neurosurgery 07/21/16 Dentistry Teacher Relationship Specialty Start Date End Date Jose Luis Toledo DO [address] [place] [address] PCP - General Family Practice 09/15/14 Blade Mejias MD [address] [facility] [place] [phone] Neurosurgery 07/21/16 Dentistry Teacher Relationship Specialty Start Date End Date Jose Luis Toledo, DO [address] [place] [address] PCP - General Family Practice 09/15/14 Blade Mejias MD [address] [place] [address] Neurosurgery 07/21/16 Dentistry Teacher Relationship Specialty Start Date End Date Jose Luis Toledo, DO [address] [place] [address] PCP - General Family Practice 09/15/14 Blade Mejias MD [address] [place] [address] Neurosurgery 07/21/16 Dentistry Teacher Relationship Specialty Start Date End Date Jose Luis Toledo DO [address] [place] [address] PCP - General Family Medicine 09/15/14 Blade Mejias MD [address] [facility] [place] [address] Neurosurgery 07/21/16 Dentistry Teacher Relationship Specialty Start Date End Date Jose Luis Toledo DO [address] [place] [address] PCP - General Family Medicine 09/15/14 Blade Mejias MD [address] [facility] [place] [address] Neurosurgery 07/21/16 Dentistry Teacher Relationship Specialty Start Date End Date Jose Luis Toledo [address] [place] [address] PCP - General Family Medicine 01/20/22 Dentistry Teacher Relationship Specialty Start Date End Date Jose Luis Toledo [address] [place] [address] PCP - General Family Medicine 01/20/22 Dentistry Teacher Relationship Specialty Start Date End Date Jose Luis Toledo, DO [address] [place] [address] PCP - General Family Medicine 09/15/14 Blade Mejias MD [address] [address] Neurosurgery 07/21/16 Dentistry Teacher Relationship Specialty Start Date End Date Jose Luis Toledo, DO [address] [place] [address] PCP - General Family Medicine 09/15/14 Blade Mejias MD [address] [facility] [place] [address] Neurosurgery 07/21/16 Dentistry Teacher Relationship Specialty Start Date End Date Jose Luis Toledo, DO [address] [place] [address] PCP - General Family Medicine 09/15/14 Blade Mejias MD [address] [facility] [address] Neurosurgery 07/21/16 Dentistry Teacher Relationship Specialty Start Date End Date Jose Luis Toledo, DO [address] [place] [address] PCP - General Family Medicine 09/15/14 Blade Mejias MD [address] [facility] [place] [address] Neurosurgery 07/21/16 Dentistry Teacher Relationship Specialty Start Date End Date Jose Luis Toledo, DO [address] [place] [address] PCP - General Family Medicine 09/15/14 Blade Mejias MD [address] [facility] [place] [phone] Neurosurgery 07/21/16 Dentistry Teacher Relationship Specialty Start Date End Date Jose Luis Toledo, DO [address] [facility] [place], [place] [address] PCP - General Family Medicine 09/15/14 Blade Mejias MD [address] [facility] [place] [phone] Neurosurgery 07/21/16 Team Status: Active Member Role [...] Provider, Referr ing Provider Active She Vivar CURRICULUM AND ASSESSMENT COORDINATOR, CURRICULUM AND ASSESSMENT COORDINATOR-C Attending Provider Active Team Status: Inactive Member [...] MD Attending Provider, Referr ing Provider Active Dentistry Teacher Relationship Specialty Start Date End Date Jose Luis Toledo, DO [address] [place] [address] PCP - General Family Medicine 09/15/14 Blade Mejias MD [address] [facility] [place] [address] Neurosurgery 07/21/16 Dentistry Teacher Relationship Specialty Start Date End Date Jose Luis Toledo, DO [address] [place] [address] PCP - General Family Medicine 09/15/14 Blade Mejias MD [address] [facility] [place] [address] Neurosurgery 07/21/16 Dentistry Teacher Relationship Specialty Start Date End Date Jose Luis Toledo, DO [address] [place] [address] PCP - General Family Medicine 09/15/14 Blade Mejias MD [address] [place] [address] Neurosurgery 07/21/16 Dentistry Teacher Relationship Specialty Start Date End Date Jose Luis Toledo, DO [address] [place] [address] PCP - General Family Medicine 09/15/14 Blade Mejias MD [address] [facility] [address] Neurosurgery 07/21/16 Dentistry Teacher Relationship Specialty Start Date End Date Jose Luis Toledo, DO [address] [place] [address] PCP - General Family Medicine 09/15/14 Blade Mejias MD [address] [facility] [address] Neurosurgery 07/21/16 Dentistry Teacher Relationship Specialty Start Date End Date Jose Luis Toledo, DO [address] [place] [address] PCP - General Family Medicine 09/15/14 Blade Mejias MD [address] [place] [address] Neurosurgery 07/21/16 Dentistry Teacher Relationship Specialty Start Date End Date Jose Luis Toledo, DO [address] [place] [address] PCP - General Family Medicine 09/15/14 Blade Mejias MD [address] [place] [address] Neurosurgery 07/21/16 Dentistry Teacher Relationship Specialty Start Date End Date Jose Luis Toledo, DO [address] [place] [address] PCP - General Family Medicine 09/15/14 Blade Mejias MD [address] [facility] [address] Neurosurgery 07/21/16 Dentistry Teacher Relationship Specialty Start Date End Date Jose Luis Toledo, DO [address] [place] [address] PCP - General Family Medicine 09/15/14 Blade Mejias MD [address] [facility] [place] [address] Neurosurgery 07/21/16 Dentistry Teacher Relationship Specialty Start Date End Date Jose Luis Toledo DO [address] [place] [address] PCP - General Family Medicine 09/15/14 Blade Mejias MD [address] [place] [phone] Neurosurgery 07/21/16 Dentistry Teacher Relationship Specialty Start Date End Date Jose Luis Toledo DO [address] [facility] [place] [address]01 PCP - General Family Medicine 09/15/14 Blade Mejias MD [address] [place] [phone] Neurosurgery 07/21/16 Dentistry Teacher Relationship Specialty Start Date End Date Jose Luis Toledo DO [address] [place] [address] PCP - General Family Medicine 09/15/14 Blade Mejias MD [address] [place] [phone] Neurosurgery 07/21/16 Dentistry Teacher Relationship Specialty Start Date End Date Jose Luis Toledo DO [address] [facility] [place] [address] PCP - General Family Medicine 09/15/14 Blade Mejias MD [address] [place] [phone] Neurosurgery 07/21/16 Dentistry Teacher Relationship Specialty Start Date End Date Jose Luis Toledo DO [address] [facility] [place] [address] PCP - General Family Medicine 09/15/14 Blade Mejias MD [address] [place] [phone] Neurosurgery 07/21/16 Dentistry Teacher Relationship Specialty Start Date End Date Jose Luis Toledo DO [address] [facility] [place] [address] PCP - General Family Medicine 09/15/14 Blade Mejias MD [address] [place] [phone] Neurosurgery 07/21/16 Dentistry Teacher Relationship Specialty Start Date End Date Jose Luis Toledo DO [address] [facility] [place] [address] PCP - General Family Medicine 09/15/14 Blade Mejias MD [address] [place] [phone] Neurosurgery 07/21/16 Dentistry Teacher Relationship Specialty Start Date End Date Jose Luis Toledo DO [address] [facility] [place] [address] PCP - General Family Medicine 09/15/14 Blade Mejias MD [address] [place] [phone] Neurosurgery 07/21/16 Dentistry Teacher Relationship Specialty Start Date End Date Jose Luis Toledo DO [address] [facility] [place] [address] PCP - General Family Medicine 09/15/14 Blade Mejias MD [address] [facility] [place] [phone] Neurosurgery 07/21/16 Team Status: Inactive Member Role Status Dates Dr. Jose Luis Toledo , DO Primary Care Provider Active Dr. Maykel Mann , DO Emergency Provider Active Dentistry Teacher Relationship Specialty Start Date End Date Jose Luis Toledo DO [address] [facility] [place], [place] 208481 [phone] PCP - General Family Medicine 09/15/14 Blade Mejias MD [address] [facility] [place] [phone] Neurosurgery 07/21/16 Team Status: Inactive Member Role Status Dates Dr. Jose Luis Toledo , DO Primary Care Provider Active Dr. David Tejeda , DO Emergency Provider Active Team Status: Inactive Member Role Status Dates Dr. Jose Luis Toledo , DO Primary Care Provider Active Dr. Maykel Mann , DO Attending Provider, Emergency Pr ovider Active Dentistry Teacher Relationship Specialty Start Date End Date Jose Luis Toledo DO [address] [place] [address] PCP - General Family Medicine 09/15/14 Blade Mejias MD [address] [facility] [place] [phone] Neurosurgery 07/21/16 Dentistry Teacher Relationship Specialty Start Date End Date Jose Luis Toledo DO [address] [place] [address] PCP - General Family Medicine 09/15/14 Blade Mejias MD [address] [place] [phone] Neurosurgery 07/21/16 Dentistry Teacher Relationship Specialty Start Date End Date Jose Luis Toledo DO [address] [facility] [place] [address] PCP - General Family Medicine 09/15/14 Blade Mejias MD [address] [place] [phone] Neurosurgery 07/21/16 Dentistry Teacher Relationship Specialty Start Date End Date Jose Luis Toledo DO [address] [place] [address] PCP - General Family Medicine 09/15/14 Blade Mejias MD [address] [facility] [place] [phone] Neurosurgery 07/21/16 Dentistry Teacher Relationship Specialty Start Date End Date Jose Luis Toledo DO [address] [facility] [place] [address] PCP - General Family Medicine 09/15/14 Blade Mejias MD [address] [place] [phone] Neurosurgery 07/21/16 Dentistry Teacher Relationship Specialty Start Date End Date Jose Luis Toledo DO [address] [place] [address] PCP - General Family Medicine 09/15/14 Blade Mejias MD [address] [place] [phone] Neurosurgery 07/21/16 Dentistry Teacher Relationship Specialty Start Date End Date Jose Luis Toledo DO [address] [place] [address] PCP - General Family Medicine 09/15/14 Blade Mejias MD [address] [place] [phone] Neurosurgery 07/21/16 Dentistry Teacher Relationship Specialty Start Date End Date Jose Luis Toledo DO [address] [facility] [place] [address] PCP - General Family Medicine 09/15/14 Blade Mejias MD [address] [place] [phone] Neurosurgery 07/21/16 Dentistry Teacher Relationship Specialty Start Date End Date Jose Luis Toledo DO [address] [place] [address] PCP - General Family Medicine 09/15/14 Blade Mejias MD [address] [place] [phone] Neurosurgery 07/21/16 Dentistry Teacher Relationship Specialty Start Date End Date Jose Luis Toledo DO [address] [facility] [place] [address] PCP - General Family Medicine 09/15/14 Blade Mejias MD [address] [place] [phone] Neurosurgery 07/21/16 Team Status: Inactive Member Role Status Dates Dr. Jose Luis Toledo , Primary Care Provider Active Dr. David Tejeda DO Attending Provider, Emergency Provider Active Team Status: Inactive Member Role Status Dates Dr. Jose Luis Toledo , Primary Care Provider Active She Vivar CURRICULUM AND ASSESSMENT COORDINATOR, CURRICULUM AND ASSESSMENT COORDINATOR-C Attending Provider, Referring Provider Active Dentistry Teacher Relationship Specialty Start Date End Date Jose Luis Toledo DO [address] [place] [address] PCP - General Family Medicine 09/15/14 Blade Mejias MD [address] [place] [phone] Neurosurgery 07/21/16 Dentistry Teacher Relationship Specialty Start Date End Date Jose Lius Toledo DO [address] [place] [address] PCP - General Family Medicine 09/15/14 Blade Mejias MD [address] [place] [phone] Neurosurgery 07/21/16 Dentistry Teacher Relationship Specialty Start Date End Date Jose Luis Toledo DO [address] [place] [address] PCP - General Family Medicine 09/15/14 Blade Mejias MD [address] [facility] [place] [phone] Neurosurgery 07/21/16 Team Status: Inactive Member Role Status Dates Dr. Jose Luis Toledo DO Primary Care Provider, Referr ing Provider Active Dr. Juvencio Oneal MD Attending Provider Active Team Status: Inactive Member Role Status Dates Dr. Jose Luis Toledo DO Primary Care Provider Active Dr. Juvencio Oneal MD Attending Provider, Referring Provider Active Dentistry Teacher Relationship Specialty Start Date End Date Jose Luis Toledo DO [address] [place], [place] 8[address]1 PCP - General Family Medicine 09/15/14 Blade Mejias MD [address] [facility] [place] [phone] Neurosurgery 07/21/16 Dentistry Teacher Relationship Specialty Start Date End Date Jose Luis Toledo DO [address] [facility] [place], [place] [address] PCP - General Family Medicine 09/15/14 Blade Mejias MD [address] [facility] [place] [phone] Neurosurgery 07/21/16 Dentistry Teacher Relationship Specialty Start Date End Date Jose Luis Toledo DO [address] [facility] [place], [place] [address] PCP - General Family Medicine 09/15/14 Blade Mejias MD [address] [facility] [place] [phone] Neurosurgery 07/21/16 Dentistry Teacher Relationship Specialty Start Date End Date Jose Luis Toledo DO [address] [place] [address] PCP - General Family Medicine 09/15/14 Blade Mejias MD [address] [facility] [place] [phone] Neurosurgery 07/21/16 Dentistry Teacher Relationship Specialty Start Date End Date Jose Luis Toledo DO [address] [place] [address] PCP - General Family Medicine 09/15/14 Blade Mejias MD [address] [place] [phone] Neurosurgery 07/21/16 Dentistry Teacher Relationship Specialty Start Date End Date Jose Luis Toledo DO [address] [place] [address] PCP - General Family Medicine 09/15/14 Blade Mejias MD [address] [place] [address]07[address] Neurosurgery 07/21/16 Dentistry Teacher Relationship Specialty Start Date End Date Jose Luis Toledo DO [address] [place] [address] PCP - General Family Medicine 09/15/14 Blade Mejias MD [address] [facility] [place] [place] [phone] Neurosurgery 07/21/16 Dentistry Teacher Relationship Specialty Start Date End Date Jose Luis Toledo DO [address] [place] [address] PCP - General Family Medicine 09/15/14 Blade Mejias MD [address] [place] [phone] Neurosurgery 07/21/16 Dentistry Teacher Relationship Specialty Start Date End Date Jose Luis Toledo DO [address] [place] [address] PCP - General Family Medicine 09/15/14 Blade Mejias MD [address] [place] [phone] Neurosurgery 07/21/16 Dentistry Teacher Relationship Specialty Start Date End Date Jose Luis Toledo DO [address] [place] [address] PCP - General Family Medicine 09/15/14 Blade Mejias MD [address] [facility] [place] [address]6935064[address] Neurosurgery 07/21/16 Dentistry Teacher Relationship Specialty Start Date End Date Jose Luis Toledo DO [address] [place] [address] PCP - General Family Medicine 09/15/14 Blade Mejias MD [address] [place] [phone] Neurosurgery 07/21/16 Dentistry Teacher Relationship Specialty Start Date End Date Jose Luis Toledo DO [address] [place] [address] PCP - General Family Medicine 09/15/14 Blade Mejias MD [address] [place] [address] Neurosurgery 07/21/16 Dentistry Teacher Relationship Specialty Start Date End Date Jose Luis Toledo DO [address] [place] [address] PCP - General Family Medicine 09/15/14 Blade Mejias MD [address] [place] [address] Neurosurgery 07/21/16 Dentistry Teacher Relationship Specialty Start Date End Date Jose Luis Toledo DO [address] [place] [address] PCP - General Family Medicine 09/15/14 Blade Mejias MD [address] [facility] [place] [phone] Neurosurgery 07/21/16 Dentistry Teacher Relationship Specialty Start Date End Date Jose Luis Toledo DO [address] [place] [address] PCP - General Family Medicine 09/15/14 Blade Mejias MD [address] [facility] [place] [address] Neurosurgery 07/21/16 Dentistry Teacher Relationship Specialty Start Date End Date Jose Luis Toledo DO [address] [place] [address] PCP - General Family Medicine 09/15/14 Blade Mejias MD [address] [place] [address] Neurosurgery 07/21/16 Dentistry Teacher Relationship Specialty Start Date End Date Jose Luis Toledo DO [address] [place] [address] PCP - General Family Medicine 09/15/14 Blade Mejias MD [address] [place] [address] Neurosurgery 07/21/16 Dentistry Teacher Relationship Specialty Start Date End Date Jose Luis Toledo DO [address] [place] [address] PCP - General Family Medicine 09/15/14 Blade Mejias MD [address] [place] [address] Neurosurgery 07/21/16 Dentistry Teacher Relationship Specialty Start Date End Date Jose Luis Toledo DO [address] [place] [address] PCP - General Family Medicine 09/15/14 Blade Mejias MD [address] [place] [phone] Neurosurgery 07/21/16 Dentistry Teacher Relationship Specialty Start Date End Date Jose Luis Toledo DO [address] [place] [address] PCP - General Family Medicine 09/15/14 Blade Mejias MD [address] [place] [phone] Neurosurgery 07/21/16 Dentistry Teacher Relationship Specialty Start Date End Date Jose Luis Toledo DO [address] [facility] [place], [place] [address] PCP - General Family Medicine 09/15/14 Blade Mejias MD [address] [place] [phone] Neurosurgery 07/21/16 Dentistry Teacher Relationship Specialty Start Date End Date Jose Luis Toledo DO [address] [place] [address] PCP - General Family Medicine 09/15/14 Blade Mejias MD [address] [place] [phone] Neurosurgery 07/21/16 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 APRN.CNP [address] [place] [address] Energy Efficiency Engineer Family Medicine 04/03/24 Dee Flores APRN.[employer] [address] [facility] [place], [place] [address] [phone] Energy Efficiency Engineer Family [facility] 04/03/24 Dentistry Teacher Relationship Specialty Start Date End Date Jose Luis Toledo DO [address] [place] [address] PCP - General Family Medicine 09/15/14 Blade Mejias MD [address] [facility] [place] [place] [phone] Neurosurgery 07/21/16 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 APRN.[employer] [address] [place], [place] 773306 [phone] Energy Efficiency Engineer Family Medicine 04/03/24 Dee Flores 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.[employer] [address] [place] [address] [facility]24 Dentistry Teacher Relationship Specialty Start Date End Date Jose Luis Toledo DO [address] [place] [address] PCP - General Family Medicine 09/15/14 Blade Mejias MD [address] [place] [phone] Neurosurgery 07/21/16 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.[employer] [address] [place] [address] Energy Efficiency Engineer Family Medicine 04/03/24 Dee Flores APRN.[employer] [address] [place] [address] Energy Efficiency Engineer Family Medicine 04/03/24 Dentistry Teacher Relationship Specialty Start Date End Date Jose Luis Toledo DO [address] [place] [address] PCP - General Family Medicine 09/15/14 Blade Mejias MD [address] [facility] [place] [phone] Neurosurgery 07/21/16 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.[employer] [address] [facility] [place], [place] 99[address] [phone] Energy Efficiency Engineer Family Medicine 04/03/24 Dee Flores 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.[employer] [address] [place] [address] Energy Efficiency Engineer Family Medicine 04/03/24 Dentistry Teacher Relationship Specialty Start Date End Date Jose Luis Toledo DO [address] [place] [address] PCP - General Family Medicine 09/15/14 Blade Mejias MD [address] [place] [phone] Neurosurgery 07/21/16 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 APRN.[employer] [address] [facility] [place] [address] Energy Efficiency Engineer Family Medicine 04/03/24 Dee Flores 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.[employer] [address] [place], [place] 447368 [phone] Energy Efficiency Engineer Family [facility] 04/03/24 Dentistry Teacher Relationship Specialty Start Date End Date Jose Luis Toledo DO [address] [place] [address] PCP - General Family Medicine 09/15/14 Blade Mejias MD [address] [facility] [place] [phone] Neurosurgery 07/21/16 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 APRN.[employer] [address] [place], [place] 811454 [phone] Energy Efficiency Engineer Family Medicine 04/03/24 Dee Flores APRN.[employer] [address] [place], [place] 720793 [phone] Energy Efficiency Engineer Family [facility] 04/03/24 Dentistry Teacher Relationship Specialty Start Date End Date Jose Luis Toledo DO [address] [place], [place] 185177 [phone] PCP - General Family Medicine 09/15/14 Blade Mejias MD [address] [place] [phone] Neurosurgery 07/21/16 Barndi Quinteros APRN.[employer] [address] [place] [address] Energy Efficiency Engineer Family Medicine 04/03/24 Dee Flores APRN.[employer] [address] [place] [address] Energy Efficiency Engineer Family [facility] 04/03/24 Dentistry Teacher Relationship Specialty Start Date End Date Jose Luis Toledo DO [address] [place] [address] PCP - General Family Medicine 09/15/14 Blade Mejias MD [address] [place] [phone] Neurosurgery 07/21/16 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 APRN.[employer] [address] [place] [address] Energy Efficiency Engineer Family Medicine 04/03/24 Dee Flores APRN.[employer] [address] [place] [address] Energy Efficiency Engineer [facility] 04/03/24 Dentistry Teacher Relationship Specialty Start Date End Date Jose Luis Toledo DO [address] [place] 509613 [phone] PCP - General Family Medicine 09/15/14 Blade Mejias MD [address] [place] [phone] Neurosurgery 07/21/16 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.[employer] [address] [facility] [place] [address] Energy Efficiency Engineer Family Medicine 04/03/24 Dee Flores APRN.[employer] [address] [facility] [place] [address] Energy Efficiency Engineer Family [facility] 04/03/24 Dentistry Teacher Relationship Specialty Start Date End Date Jose Luis Toledo DO [address] [place] 2[address]27 [phone] PCP - General Family Medicine 09/15/14 Blade Mejias MD [address] [place] [phone] Neurosurgery 07/21/16 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 APRN.[employer] [address] [facility] [place] 490[address] [phone] [facility] 04/03/24 Dee Flores APRN.[employer] [address] [place] [address] [facility] 04/03/24 Dentistry Teacher Relationship Specialty Start Date End Date Jose Luis Toledo DO [address] 117[address] [phone] PCP - General Family Medicine 09/15/14 Blade Mejias MD [address] [place] [phone] Neurosurgery 07/21/16 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.[employer] [address] [facility] [place] [phone] [facility] 04/03/24 Dee Flores 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.[employer] [address] [facility] [place] [phone] Energy Efficiency Engineer Family [facility] 04/03/24 Dentistry Teacher Relationship Specialty Start Date End Date Jose Luis Toledo DO [address] [facility] [place] [address] PCP - General Family Medicine 09/15/14 Blade Mejias MD [address] [facility] [place] [phone] Neurosurgery 07/21/16 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 APRN.[employer] [address] [place], [place] 133481 [facility] 04/03/24 Dee Flores APRN.[employer] [address] [place] [address] [facility] 04/03/24 Dentistry Teacher Relationship Specialty Start Date End Date Jose Luis Toledo DO [address] [place], [place] 771029 [phone] PCP - General Family Medicine 09/15/14 Blade Mejias MD [address] [facility] [place] [phone] Neurosurgery 07/21/16 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 APRN.[employer] [address] [place], [place] 947950 [phone] [facility] 04/03/24 Dee Flores APRN.[employer] [address] [place], [place] 119315 [phone] Energy Efficiency Engineer Family Medicine 04/03/24 Dentistry Teacher Relationship Specialty Start Date End Date Jose Luis Toledo DO [address] [facility] [place] [place] [address]609 [phone] PCP - General Family Medicine 09/15/14 Blade Mejias MD [address] [place] [phone] Neurosurgery 07/21/16 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 APRN.[employer] [address] [place] [address] [facility] 04/03/24 Dee Flores APRN.[employer] [address] [facility] [place] [address] [facility] 04/03/24 Dentistry Teacher Relationship Specialty Start Date End Date Jose Luis Toledo DO [address] [facility] [place] [address] PCP - General Family Medicine 09/15/14 Blade Mejias MD [address] [place] [phone] Neurosurgery 07/21/16 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 APRN.[employer] [address] [facility] [place] [address] [facility] 04/03/24 Dee Flores APRN.[employer] [address] [facility] [place] [address] [facility] 04/03/24 Dentistry Teacher Relationship Specialty Start Date End Date Jose Luis Toledo DO [address] [facility] [place], [place] 402080 [phone] PCP - General Family Medicine 09/15/14 Blade Mejias MD [address] [facility] [place] [phone] Neurosurgery 07/21/16 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 APRN.[employer] [address] [facility] [place], [place] [address] [phone] Energy Efficiency Engineer Family Medicine 04/03/24 Dee Flores APRN.[employer] [address] [place] [address] Energy Efficiency Engineer Family Medicine 04/03/24 Dentistry Teacher Relationship Specialty Start Date End Date Jose Luis Toledo DO [address] [facility] [place], [place] [address] [phone] PCP - General Family Medicine 09/15/14 Blade Mejias MD [address] [facility] [phone] Neurosurgery 07/21/16 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 APRN.[employer] [address] [place] [address] Energy Efficiency Engineer Family [facility] 04/03/24 Dee Flores APRN.[employer] [address] [place] [address] Energy Efficiency Engineer Family [facility] 04/03/24 Team Status: Active Member Role Status [...] July 25, 2024 End: July 25, 2024 Dentistry Teacher Relationship Specialty Start Date End Date Jose Luis Toledo DO [address] [place] [address] PCP - General Family Medicine 09/15/14 Blade Mejias MD [address] [place] [phone] Neurosurgery 07/21/16 Dee Flores APRN.[employer] [address] [place] [address] Energy Efficiency Engineer [facility] 04/03/24 Dentistry Teacher Relationship Specialty Start Date End Date Jose Luis Toledo DO [address] [place] [address] PCP - General Family Medicine 09/15/14 Blade Mejias MD [address] [facility] [place] [phone] Neurosurgery 07/21/16 Dee Flores APRN.[employer] [address] [place] [address] Energy Efficiency Engineer Family [facility] 04/03/24 Dentistry Teacher Relationship Specialty Start Date End Date Jose Luis Toledo DO [address] [place] [address] PCP - General Family Medicine 09/15/14 Blade Mejias MD [address] [place] [phone] Neurosurgery 07/21/16 Dee Flores APRN.[employer] [address] [place] [address] Energy Efficiency Engineer Family Medicine 04/03/24 Dentistry Teacher Relationship Specialty Start Date End Date Jose Luis Toledo DO [address] [place] [address] PCP - General Family Medicine 09/15/14 Blade Mejias MD [address] [facility] [place] [phone] Neurosurgery 07/21/16 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.[employer] [address] [place] [address] Energy Efficiency Engineer Family Medicine 04/03/24 07/15/24 Dee Flores 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.[employer] [address] [place] [address] Energy Efficiency Engineer Family Medicine 04/03/24 Dentistry Teacher Relationship Specialty Start Date End Date Jose Luis Toledo DO [address] [facility] [place] [address] PCP - General Family Medicine 09/15/14 Blade Mejias MD [address] [facility] [place] [place] [phone] Neurosurgery 07/21/16 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 APRN.[employer] [address] [place] [address] Energy Efficiency Engineer Family Medicine 04/03/24 07/15/24 Dee Flores APRN.[employer] [address] [place] [address] Energy Efficiency Engineer Family Medicine 04/03/24 Dentistry Teacher Relationship Specialty Start Date End Date Jose Luis Toledo DO [address] [place], [place] 0980[address] [phone] PCP - General Family Medicine 09/15/14 Blade Mejias MD [address] [facility] [address] [place] [phone] Neurosurgery 07/21/16 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.[employer] [address] [place] [address] Energy Efficiency Engineer Family Medicine 04/03/24 07/15/24 Dee Flores APRN.[employer] [address] [place] [address] Energy Efficiency Engineer Family Medicine 04/03/24 Dentistry Teacher Relationship Specialty Start Date End Date Jose Luis Toledo DO [address] [place] [address] PCP - General Family Medicine 09/15/14 Blade Mejias MD [address] [facility] [address] Neurosurgery 07/21/16 MarkDee APRN.[employer] [address] [place] [address] Energy Efficiency Engineer Family Medicine 04/03/24 Team Status: Active Member [...] January 05, 2025 End: January 05, 2025 Dentistry Teacher Relationship Specialty Start Date End Date Jose Luis Toledo DO [address] [facility] [place], [place] [address] PCP - General Family Medicine 09/15/14 Blade Mejias MD [address] [facility] [place] [phone] Neurosurgery 07/21/16 Dee Flores APRN.[employer] [address] [facility] [place], [place] [address] [facility] 04/03/24 Barbara Wang 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.[employer] [address] [place], [place] [phone] [facility] 10/10/24 Dentistry Teacher Relationship Specialty Start Date End Date Jose Luis Toledo DO [address] [facility] [place], [place] [address] PCP - General Family Medicine 09/15/14 Blade Mejias MD [address] [facility] [place] [phone] Neurosurgery 07/21/16 Dee Flores APRN.[employer] [address] [facility] [place], [place] [address] [facility] 04/03/24 Barbara Wang APRN.[employer] [address] [place] [address] Energy Efficiency Engineer Family Medicine 10/10/24 Ordered Prescriptions (unrec ognized [...] BE BASED ON THE PRIMARY CLINICAL RECORDS. [email or web address] provides no warranty or guarantee of the accuracy or completeness of information in this document.
== END | disposition home or self-care (01) ==
LOC: CT 08:10
PROVIDERS: PCP Student in an Organized Health Care Education/Training Program; Referring Provider Psychiatry & Neurology Neurology; Visit Provider Psychiatry & Neurology Neurology
DX: G70.00 Myasthenia gravis without (acute) exacerbation (principal)
CPT/HCPCS: 71260; Q9967

== ENCOUNTER 2025-04-05 13:37 | Emergency (ER) | payer BC, MEDICAID, SELFPAY ==
[2025-04-05 13:38] VITALS: BP 136/94; PULSE 98; RESP 16; TEMP 36.6; O2SAT 100; BMI 38.3
--- NOTE | 2025-04-05 15:11 | EX.ED.VIS.HA ---
HPI History of Present Illness Chief Complaint: Headache Informant: patient Onset/Context/Timing Onset: Days (3-day history) Context: Sudden Timing: Continuous Quality -Headache: Positive for Similar Prior Headaches and Sharp Current Severity: Moderate Maximum Severity: Severe Associated Symptoms/Injury Associated Symptoms: Positive for Nausea, Vomiting and Photophobia; Negative for Fever, Sore Throat, Sinus Pressure, Numbness, Tingling, Preceding Aura, Visual Changes, Blurred Vision or Visual Loss Injury - MALDONADO: Negative for Direct Trauma, Fall or Assault Narrative Narrative: 45-year-old female history of migraine headaches, myasthenia gravis and a brain aneurysm. Patient states she had sudden onset of headache 3 days ago. Similar to prior headaches that she has had with her migraines. Associated photophobia nausea vomiting. No fever. No trauma. She is on no blood thinners. Denies any neck pain. Prior similar symptoms: Yes Recent Illness/Hospitalization: No PFSH PFSH Medical History Infected lesion of skin GERD (gastroesophageal reflux disease) History of kidney stones Hypoglycemia Hormone deficiency High triglycerides High cholesterol History of gallstones History of chronic bronchitis History of breast lump History of UTI Asthma Arthritis Seasonal allergies Mid back pain on left side Urinary frequency Protein S deficiency Hx of protein S deficiency History of IBS Ulcer History of fatty infiltration of liver Non-smoker CPAP (continuous positive airway pressure) dependence Restless legs Injury of head and neck Family history of brain aneurysm Hx of echocardiogram History of PSVT (paroxysmal supraventricular tachycardia) History of loss of consciousness Fibromyalgia Chest pain Tachycardia Thyroid nodule IBS (irritable bowel syndrome) CADENCE (obstructive sleep apnea) Hypothyroidism History of PCOS Intervertebral disc degeneration Empty sella complex migraine Back pain Limb weakness Brain aneurysm Thyroid disease Migraines Fatigue Stomach ulcer Home Medications ?Medication ?Instructions ?Recorded ?Last Taken ?Type lorazepam 0.5 mg tablet 0.5 mg PO DAILY PRN PRN Anxiety 11/23/19 09/10/20 21:00 History levothyroxine 88 mcg capsule 88 mcg PO MOTUWETHFRSA 08/23/20 07/30/21 History pyridostigmine bromide 60 mg tablet 30 mg (1/2 x 60 mg) PO BID #30 tabs 01/05/25 Unknown Rx cbzwzobzqv-qzriglnnjjpiw-bvhdwtfb 1 cap PO Q6H PRN PRN headache 04/05/25 Unknown History 50 mg-325 mg-40 mg capsule Allergy/AdvReac Type Severity Reaction Status Date / Time Penicillins Allergy Severe Anaphylaxis Verified 04/05/25 13:41 adhesive Allergy Rash Verified 04/05/25 13:41 menthol Allergy Swelling Verified 04/05/25 13:41 prochlorperazine (From AdvReac Severe Other Verified 04/05/25 13:42 Compazine) Family History Grandmother Hypertension Brother Diabetes Grandfather CVA (cerebral vascular accident) Alcoholism Bleeding disorder DVT (deep venous thrombosis) Father Hypertension Anxiety Arthritis Bowel disease Depression High cholesterol Thyroid disorder Mother Supraventricular tachycardia Anesthesia complication Anxiety Angina pectoris Arthritis Rheumatoid arthritis Bowel disease Breast cancer Depression Myocardial infarction Heart disease High cholesterol Hypertension Kidney disease Thyroid disorder Surgical History S/P oophorectomy H/O ovarian cystectomy H/O ovarian cystectomy History of endometrial ablation H/O bilateral salpingectomy History of total vaginal hysterectomy (TVH) Hx of dilation and curettage History of cholecystectomy History of extraction of renal calculus [place] teeth extracted History of appendectomy Social History Smoking Status: Never smoker alcohol intake: current alcohol intake frequency: holidays/special occasions only details: social substance use type: does not use diet: other caffeine: Yes what type of physical activity do you participate in: walking and weight training frequency: 3-4 times per week seatbelt use: always do you feel safe at home: Yes ROS ROS ED ROS Narrative Headache. Nausea and vomiting. Constitutional Constitutional ED: Denies chills or fever(s) Eyes Eyes: Denies blurry vision ENT ENT ED: Denies ear pain Cardiovascular Cardiovascular: Denies chest pain Respiratory/Chest Respiratory/Chest: Denies cough or dyspnea Gastrointestinal Gastrointestinal: Reports nausea and vomiting; Denies abdominal pain, constipation, diarrhea or melena Genitourinary Genitourinary ED: Denies dysuria or hematuria Musculoskeletal Musculoskeletal: Denies arthralgias Integumentary Denies abscess Neurologic Neurologic: Reports headache(s) Psychiatric Psychiatric: Denies anxiety or depression Endocrine Endocrinology: Denies polydipsia or polyphagia Hematologic/Lymphatic Hematologic/Lymphatic: Denies easy bleeding, easy bruising or lymphadenopathy Allergic/Immunologic Allergic/Immunologic ED: Denies mouth swelling, tongue swelling or urticaria EXAM Physical Exam Narrative Exam Narrative: 45-year-old female seated upright in darkened room. Vital signs are stable afebrile. Does not appear septic or toxic. H EENT exam pupils round react light. Extra motions are intact. Photophobia to light. No facial droop. No trauma. Nontender. No sinus tenderness. Neck nontender no meningismus. Able to touch chin to chest. No lymphadenopathy. Back nontender. Lungs clear. Heart regular rhythm no murmur rate about 80. Chest wall ribs nontender. Abdomen soft nontender. Normal bowel sounds without peritoneal signs. Moving all 4 extremities. 5 out of 5 collections specialist strength. Dorsi plantarflexion intact. Neurologic exam normal. NIH 0. Awake alert. Answering questions. Normal speech. Fingertip to nose within normal limits. No drift either upper or lower extremities. Normal strength. Const Vital Signs: 04/05/25 13:38 04/05/25 15:37 Temperature 98 F Temperature Source Temporal Pulse Rate 98 75 Respiratory Rate 16 16 Blood Pressure 136/94 H 125/74 H Blood Pressure Mean 108 91 Pulse Ox 100 98 Oxygen Delivery Method Room Air Room Air MDM MDM MDM Narrative Medical decision making narrative: 45-year-old female history of migraine headaches clinically I think this is a migraine headache she will be treated with IV Toradol, Benadryl, IV fluids and Zofran. She states she cannot take Compazine. I will obtain a CAT scan of her head due to her history of an aneurysm. Repeat exam around 4:20 PM. Patient still having some pain and nausea show will give an additional dose of Zofran. Pain medication and be discharged to home. For his migraine headache. Repeat neurologic exam is unchanged. Remains normal. CAT scan showed no acute abnormalities read by the radiologist. Patient doing well at 5:08 PM. Headache is resolved. She clinically feels better and is comfortable being discharged. She has medications at home for her migraines. History & Record Review Additional record(s) reviewed:: Prior outpatient record, Prior ED visit and Prior labs Radiography Diagnostic Testing: Clinical Impression(s) from Imaging Studies Brain CT 04/05/25 15:30 IMPRESSION: No acute intracranial process. Reading Location: [facility] Discharge Plan Triage Chief Complaint: Headache ED Provider: Elmer Matias Dx/Rx/DC Orders Clinical Impression: Headache, migraine Instructions: ED, Migraine (Classical) Prescriptions: No Action levothyroxine 88 mcg capsule 88 mcg PO MOTUWETHFRSA Rx Instructions: skip thursday pyridostigmine bromide 60 mg tablet 30 mg PO BID Qty: 30 3RF lorazepam 0.5 MG tablet 0.5 mg PO DAILY PRN PRN (Reason: Anxiety) maudyyzdwq-jjyhrohfaghqk-cjox 50-325-40 mg capsule 1 cap PO Q6H PRN PRN (Reason: headache) Primary Care Provider: Jose Luis Toledo Referrals: Jose Luis Toledo DO [Primary Care Provider, Medical] - 1-2 Days if not improving Activity Restrictions/Additional Instructions: Plenty of fluids and rest. Drink caffeinated beverages. Follow-up if not improving or return if worse. Print Language: Cymro Disposition Disposition: Home, Self Care
[2025-04-05] MEDS: 0.9% Normal Saline (1000mL) 1,000 ML 1000 ML IV (15:14)
[2025-04-05] MEDS: DiphenhydrAMINE 50 MG/ML Syringe IV (15:16)
[2025-04-05] MEDS: Ketorolac 30 MG/ML Syringe IV (15:16)
--- NOTE | 2025-04-05 15:30 | CT_ITS ---
PROCEDURE: BRAIN/HEAD WITHOUT CONTRAST 04/05/2025 REASON FOR EXAM: HEADCAHE. HX OF BRAIN ANEURYSM TECHNIQUE: Procedure Code: CTBR Modality: CT Procedure: BRAIN/HEAD WITHOUT CONTRAST Coronal and Sagittal reconstruction series were provided. One or more dose reduction techniques were used (e.g., Automated exposure control, adjustment of the mA and/or kV according to patient size, use of iterative reconstruction technique. RADIATION DOSE SUMMARY: DLP: 830 mGycm COMPARISON: CTA from 02/08/2024 FINDINGS: There is no acute infarct, intracranial hemorrhage, or mass effect. There is no hydrocephalus or significant midline shift. No acute, depressed calvarial fractures. No large scalp hematomas. Fluid within right maxillary sinus. CT/Brain/Head without Contrast IMPRESSION: No acute intracranial process. Reading Location: [id number]
[2025-04-05 15:37] VITALS: BP 125/74; PULSE 75; RESP 16; O2SAT 98
[2025-04-05 17:25] VITALS: BP 126/86; PULSE 65; RESP 15; TEMP 36.8; O2SAT 100
== END 2025-04-05 17:26 | disposition home or self-care (01) ==
PROVIDERS: Emergency Provider Emergency Medicine; PCP Student in an Organized Health Care Education/Training Program; Visit Provider Emergency Medicine
DX: G43.909 Migraine, unspecified, not intractable, without status migrainosus (principal); E78.00 Pure hypercholesterolemia, unspecified; G47.33 Obstructive sleep apnea (adult) (pediatric); Z79.899 Other long term (current) drug therapy
CPT/HCPCS: 70450; 96361; 96374; 96375; 96376; 99283; A4216; J2405